=== PATIENT | female | born 1950 | race Caucasian/White ===

== ENCOUNTER 2016-06-13 | Outpatient (CLI) | payer MEDICARE, MEDICAID | END 2016-06-13 23:26 | disposition critical access hospital (66) | DX: R10.9 Unspecified abdominal pain (principal) | CPT/HCPCS: A0425; A0427 ==

== ENCOUNTER 2016-06-13 23:56 | Inpatient (IN) | payer MEDICARE, MEDICAID ==
[2016-06-14] MEDS ORDERED: HYDROmorphone 1 MG/ML SYRINGE IVP STA ×2 (00:27→05:38)
[2016-06-14] MEDS ORDERED: ONDANSETRON 4 MG/2 ML VIAL IVP STA (00:27)
[2016-06-14] MEDS ORDERED: SODIUM CHLORIDE 0.9% 1,000 ML IV ONE ×3 (00:27→16:00)
[2016-06-14] MEDS ORDERED: HYDROmorphone 1 MG/ML SYRINGE ONE ×2 (00:32→05:57)
[2016-06-14] MEDS ORDERED: ONDANSETRON 4 MG/2 ML VIAL ONE (00:32)
[2016-06-14] MEDS ORDERED: PIPERACILLIN/TAZOBACTAM 3.375 GM in SODIUM CHLORIDE 0.9% MINIBAG 100 ML IV STA (03:30)
[2016-06-14] MEDS ORDERED: HYDROmorphone 1 MG/ML SYRINGE IVP PRN ×2 (06:02→06:37)
[2016-06-14] MEDS ORDERED: SODIUM CHLORIDE FLUSH 0.9% 10 ML SYRINGE IVP PRN ×2 (06:02→06:37)
[2016-06-14] MEDS ORDERED: ONDANSETRON 4 MG/2 ML VIAL IVP PRN ×2 (06:02→06:37)
[2016-06-14] MEDS ORDERED: POTASSIUM CHLORIDE INJ 40 MEQ in SODIUM CHLORIDE 0.9% 480 ML IV ONE ×2 (06:29→07:00)
[2016-06-14] MEDS ORDERED: SODIUM CHLORIDE 0.9% 1,000 ML IV SCH (07:00)
[2016-06-14] MEDS ORDERED: PANTOPRAZOLE 40 MG VIAL IVP SCH (07:00)
[2016-06-14] MEDS ORDERED: risperiDONE 0.25 MG TABLET PO SCH (07:00)
[2016-06-14] MEDS ORDERED: risperiDONE 1 MG TABLET PO SCH (07:00)
[2016-06-14] MEDS ORDERED: PIPERACILLIN/TAZOBACTAM 3.375 GM in SODIUM CHLORIDE 0.9% MINIBAG 100 ML IV SCH ×4 (07:00)
[2016-06-14] MEDS ORDERED: LEVOTHYROXINE 25 MCG TABLET PO SCH ×2 (07:00→09:00)
[2016-06-14] MEDS: PANTOPRAZOLE 40 MG VIAL IVP SCH ×2 (07:37→17:49)
[2016-06-14] MEDS: SODIUM CHLORIDE 0.9% 1,000 ML IV SCH ×2 (07:37→12:54)
[2016-06-14] MEDS ORDERED: LITHIUM CARBONATE 450 MG PO SCH (09:00)
[2016-06-14] MEDS ORDERED: HEPARIN 5,000 UNIT/ML VIAL SUBQ SCH ×2 (09:00)
[2016-06-14] MEDS ORDERED: LITHIUM ER 300 MG TABLET PO SCH (09:00)
[2016-06-14] MEDS ORDERED: METOPROLOL SUCCINATE 50 MG TABLET PO SCH ×2 (09:00)
[2016-06-14] MEDS ORDERED: POLYETHYLENE GLYCOL 3350 17 GM PACKET PO SCH ×2 (09:00)
[2016-06-14] MEDS: POTASSIUM CHLOR 10 MEQ/100 ML 100 ML IV SCH ×4 (09:22→14:29)
[2016-06-14] MEDS: PIPERACILLIN/TAZOBACTAM 3.375 GM in SODIUM CHLORIDE 0.9% MINIBAG 100 ML IV SCH ×2 (11:07→17:28)
[2016-06-14] MEDS ORDERED: SODIUM CHLORIDE FLUSH 0.9% 10 ML SYRINGE IVP SCH ×2 (14:00)
[2016-06-14] MEDS ORDERED: MORPHINE ER 15 MG TABLET PO SCH ×2 (14:00)
[2016-06-14] MEDS ORDERED: POTASSIUM CHLOR 10 MEQ/100 ML 100 ML IV ONE (14:30)
[2016-06-14] MEDS ORDERED: VENLAFAXINE ER 75 MG CAPSULE PO SCH (21:00)
[2016-06-14] MEDS ORDERED: LITHIUM 150 MG CAPSULE PO SCH (22:00)
== END 2016-06-14 19:03 | disposition short-term general hospital (02) | DRG 871 ==
DX: A41.9 Sepsis, unspecified organism (principal); K80.00 Calculus of gallbladder with acute cholecystitis without obstruction; K85.10 Biliary acute pancreatitis without necrosis or infection; E78.00 Pure hypercholesterolemia, unspecified; J45.909 Unspecified asthma, uncomplicated; J44.9 Chronic obstructive pulmonary disease, unspecified; E11.9 Type 2 diabetes mellitus without complications; E03.9 Hypothyroidism, unspecified; K80.60 Calculus of gallbladder and bile duct with cholecystitis, unspecified, without obstruction; E87.6 Hypokalemia; I12.9 Hypertensive chronic kidney disease with stage 1 through stage 4 chronic kidney disease, or unspecified chronic kidney disease; N18.9 Chronic kidney disease, unspecified; Z79.899 Other long term (current) drug therapy; F31.9 Bipolar disorder, unspecified; R07.9 Chest pain, unspecified; Z86.718 Personal history of other venous thrombosis and embolism; G89.29 Other chronic pain; M54.9 Dorsalgia, unspecified; M19.90 Unspecified osteoarthritis, unspecified site; F17.200 Nicotine dependence, unspecified, uncomplicated; K21.9 Gastro-esophageal reflux disease without esophagitis; Z79.891 Long term (current) use of opiate analgesic; Z79.02 Long term (current) use of antithrombotics/antiplatelets

== ENCOUNTER 2016-06-14 | Outpatient (CLI) | payer MEDICARE, MEDICAID | END 2016-06-14 19:05 | disposition short-term general hospital (02) | CPT/HCPCS: A0425; A0426 ==

== ENCOUNTER 2016-07-01 | Outpatient (CLI) | payer MEDICARE, MEDICAID | END 2016-07-01 14:41 | disposition short-term general hospital (02) | DX: R53.1 Weakness (principal) | CPT/HCPCS: A0425; A0427 ==

== ENCOUNTER 2016-08-21 11:48 | Outpatient (CLI) | payer MEDICARE, MEDICAID | END 2016-08-21 23:59 | disposition short-term general hospital (02) | DX: R10.9 Unspecified abdominal pain (principal) | CPT/HCPCS: A0425; A0427 ==

== ENCOUNTER 2017-01-05 15:30 | Outpatient (CLI) | payer MEDICARE, MEDICAID ==
--- NOTE | 2017-01-06 10:03 | XRAY Report ---
FRONTAL PELVIS: 01/05/2017 CLINICAL INDICATION: Injury, pain. FINDINGS: Frontal view of the pelvis demonstrates no evidence of acute fracture. Postoperative gomez es are noted in the lower lumbar spine. Mild osteoarthritis of the hips is noted. IMPRESSION: MILD OSTEOARTHRITIS. NO EVIDENCE OF ACUTE FRACTURE. JOB #: [id number] EXT JOB #:[id number]
--- NOTE | 2017-01-06 10:11 | CT Report ---
CT BRAIN WITHOUT CONTRAST: 01/05/2017 CLINICAL INDICATION: Injury, pain. TECHNIQUE: Axial CT images of the brain were obtained without contrast. No previous CT is available for comparison. FINDINGS: The ventricles and sulci demonstrate mild symmetric enlargement, compatible with atrophy. The basilar cisterns are patent. There is no evidence of hemorrhage, mass effect, or midline shift. The visualized orbital contents and paranasal sinuses are unremarkable. IMPRESSION: MILD ATROPHY. NO EVIDENCE OF HEMORRHAGE OR MASS EFFECT. In accordance with CT protocol optimization, one or more of the following dose reduction techniques w ere utilized for this exam: automated exposure control, adjustment of mA and/or KV based on patient size, or use of iterative reconstructive technique. JOB #: [id number] EXT JOB #:[id number]
== END 2017-01-05 15:31 | disposition home or self-care (01) ==
LOC: DI 15:30
PROVIDERS: ATTEND Internal Medicine
DX: S09.90XA Unspecified injury of head, initial encounter (principal); R10.2 Pelvic and perineal pain
CPT/HCPCS: 70450; 72170

== ENCOUNTER 2017-01-15 11:58 | Outpatient (CLI) | payer MEDICARE, MEDICAID ==
--- NOTE | 2017-01-15 15:14 | CT Report ---
EXAM: BILATERAL HIP CT WITHOUT CONTRAST EXAM DATE: 01/15/2017 12:44 p.m. CLINICAL HISTORY: Fall with persistent pain in hips and sacral region. COMPARISON: Prior x-ray 01/05/2017. TECHNIQUE: Thin-section axial images were acquired of the hip without contrast. Post-processing: Heather nal and sagittal reformats. Other: None. In accordance with CT protocol optimization, one or more of the following dose reduction techniques w ere utilized for this exam: automated exposure control, adjustment of mA and/or KV based on patient s ize, or use of iterative reconstructive technique. FINDINGS: Bones: Moderate generalized osteopenia. No visible fracture. Prior fusion at L4-L5. The weight-bearing surfaces of both femoral heads appear sclerotic, with mild flattening and deformit y suggestive of avascular necrosis. Joints: Moderate bilateral sacroiliac joint osteoarthritis with mild bilateral hip osteoarthritis. Mo derate degenerative change of the pubic symphysis. Musculature: Normal. No fatty atrophy. Other: The bladder appears unremarkable. The uterus and ovaries also appear unremarkable. There are n umerous colonic diverticula. IMPRESSION: 1. 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 MRI is recommended for confirmati on. 2. Mild bilateral hip osteoarthritis. 3. Prior lumbar spine surgery. Moderate degenerative change of the sacroiliac joints. [facility] Referring Provider Line: [phone] SITE ID: [id number]
--- NOTE | 2017-01-15 15:30 | CT Report ---
CT OF FACIAL BONES WITHOUT CONTRAST: 01/15/2017 CLINICAL INDICATION: Fall, pain, tenderness. TECHNIQUE: Axial CT images of the facial bones were obtained without contrast, following which sagitt al and coronal reconstructions were performed. FINDINGS: There is mild mucosal thickening in the right maxillary sinus. The ostiomeatal units are p atent. There is no evidence of facial bone fracture. There is leftward deviation of the nasal septum. The visualized orbital contents are unremarkable. IMPRESSION: NO EVIDENCE OF FACIAL BONE FRACTURE. MILD CHRONIC SINUS DISEASE IN THE RIGHT MAXILLARY S INUS. In accordance with CT protocol optimization, one or more of the following dose reduction techniques w ere utilized for this exam: automated exposure control, adjustment of mA and/or KV based on patient size, or use of iterative reconstructive technique. JOB #: [id number] EXT JOB #:[id number]
--- NOTE | 2017-01-17 13:20 | CT Report ---
EXAM: CT LUMBAR SPINE WITHOUT CONTRAST EXAM DATE: 01/15/2017 12:43 PM. CLINICAL HISTORY: Fall with persistent pain in the hips and sacroiliac region. COMPARISONS: None. TECHNIQUE: Thin-section axial images were acquired of the lumbar spine from T12 to S1 without contras t. Post-processing: Coronal and sagittal reformats. Other: None. In accordance with CT protocol optimization, one or more of the following dose reduction techniques w ere utilized for this exam: automated exposure control, adjustment of mA and/or KV based on patient s ize, or use of iterative reconstructive technique. FINDINGS: Alignment: A minimal leftward thoracolumbar curvature is present. Bones: Five kqh-vqi-naswlar lumbar vertebral bodies are present. No fractures. The patient has had an anterior and posterior fusion procedure at L4-L5 with posterior rods, bilateral pedicle screws, and an intervertebral disk spacer. There is solid bony union through the disk space and the posterior liam ments. Disk Levels/Facets: T12-L1: Unremarkable. L1-L2: Unremarkable. L2-L3: Unremarkable. L3-L4: Small foraminal area protrusions and severe bilateral facet osteoarthritis result in mild bila teral foraminal narrowing. L4-L5: A right laminectomy has been performed. Posterior element bony hypertrophy has no neurologic c onsequence. L5-S1: Severe bilateral facet osteoarthritis has no neurologic consequence. Musculature: Normal. No fatty atrophy. Other: Arterial calcifications indicate atherosclerosis. Sigmoid diverticulosis is present. IMPRESSION: 1. Mild bilateral foraminal narrowing at L3-L4 due to disk and posterior element degenerative changes . 2. Fusion at L4-L5. [facility] Referring Provider Line: [phone] SITE ID: [id number]
== END 2017-01-15 11:59 | disposition home or self-care (01) ==
LOC: DI 11:58
PROVIDERS: ATTEND Internal Medicine
DX: J32.0 Chronic maxillary sinusitis (principal); M16.0 Bilateral primary osteoarthritis of hip; M51.26 Other intervertebral disc displacement, lumbar region; M47.9 Spondylosis, unspecified; Z98.1 Arthrodesis status
CPT/HCPCS: 70486; 72131; 73700

== ENCOUNTER 2017-03-10 19:19 | Outpatient (CLI) | payer MEDICARE, MEDICAID | END 2017-03-10 19:20 | disposition EMS.NT | LOC: EMS 19:19 | PROVIDERS: ATTEND Surgery | DX: Z03.89 Encounter for observation for other suspected diseases and conditions ruled out (principal) ==

== ENCOUNTER 2017-03-18 11:16 | Outpatient (CLI) | payer MEDICARE, MEDICAID ==
--- NOTE | 2017-03-18 17:42 | XRAY Report ---
THREE VIEW LEFT FOOT: 03/18/2017 CLINICAL INDICATION: Pain. AP, lateral, oblique views of the left foot demonstrate minimally displaced fractures of the distal 3 rd, 4th, and 5th metatarsals. Soft tissue swelling is present. Osteoarthritic changes are seen in t he interphalangeal joints and the 1st metatarsophalangeal joint. IMPRESSION: MINIMALLY DISPLACED FRACTURES OF THE DISTAL ENDS OF THE 3RD THROUGH 5TH METATARSALS. SO FT TISSUE SWELLING. JOB #: [id number] EXT JOB #:[id number]
== END 2017-03-18 11:17 | disposition home or self-care (01) ==
LOC: DI.S 11:16
PROVIDERS: ATTEND Internal Medicine
DX: S92.332A Displaced fracture of third metatarsal bone, left foot, initial encounter for closed fracture (principal); S92.342A Displaced fracture of fourth metatarsal bone, left foot, initial encounter for closed fracture; S92.352A Displaced fracture of fifth metatarsal bone, left foot, initial encounter for closed fracture

== ENCOUNTER 2017-05-14 12:52 | Outpatient (CLI) | payer MEDICARE, MEDICAID ==
[2017-05-14 18:36] LABS: HB2 TOTAL 13.1 g/dL; HEMOGLOBIN A1C 0.51 g/dL; HEMOGLOBIN A1C % 5.7 % (4.6-6.2)
== END 2017-05-14 12:53 | disposition home or self-care (01) ==
LOC: LAB.F 12:52
PROVIDERS: ATTEND Family Medicine
DX: E11.9 Type 2 diabetes mellitus without complications (principal)
CPT/HCPCS: 36415; 83036

== ENCOUNTER 2017-06-08 12:18 | Emergency (ER) | payer MEDICARE, MEDICAID ==
--- NOTE | 2017-06-08 12:45 | ED Physician Documentation ---
PD HPI LOWER EXT INJURY - Stated complaint Stated Complaint: L LEG PX/FLU SYMPTOMS - Chief complaint Chief Complaint: Ext Problem - History obtained from History obtained from: Patient - History of Present Illness PD HPI LOW EXT INJURY LOCATION: Left, Thigh Type of injury: No: Fall, Twist Where injury occurred: Home Timing - onset: How many weeks ago (she has had some pain and tenderness left medial thigh and around the knee for about 3 weeks. Had recent foot fracture and was in boot orthosis for a few weeks. Has been out of that for cople weeks and thought the thigh pain would go away as due to muscular cause with the boot. It is not improving. No chest pain nor dyspnea. She does feel generally weak as though she "has the flu" though no fevers, cough, URi symptoms.) Timing - details: Gradual onset, Still present, Waxing and waning Improved by: No: Rest Worsened by: Moving, Palpating Associated symptoms: No: Weakness, Numbness, Swelling, Discolored Contributing factors: No: Anticoagulated Similar symptoms before: Has not had sx before Review of Systems Constitutional: reports: Myalgias, Fatigue. denies: Fever, Chills Nose: denies: Rhinorrhea / runny nose, Congestion Throat: denies: Sore throat Cardiac: denies: Chest pain / pressure Respiratory: denies: Dyspnea, Cough GI: denies: Vomiting, Diarrhea, Bloody / black stool Neurologic: reports: Generalized weakness. 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 HEENT: Tonsil/Adenoidectomy - Present Medications Home Medications: Ambulatory Orders Medication Instructions Recorded Confirmed Levothyroxine Sodium [Synthroid] 25 mcg PO DAILY 10/06/12 06/14/16 Metoprolol Succinate [Toprol Xl] 50 mg PO DAILY 10/06/12 06/14/16 Morphine ER [Ms Contin] 30 mg PO Q8H 10/06/12 06/14/16 Morphine Ir [Ms Ir] 15 mg PO BID PRN 10/06/12 06/14/16 Niacin [Niaspan] 1,000 mg PO BID 10/06/12 06/14/16 Glimepiride 2 mg PO QDBREAKFAST 06/14/16 06/14/16 LORazepam [Lorazepam] 0.5 mg PO BID PRN 06/14/16 06/14/16 Wynot Carbonate [Wynot 450 mg PO DAILY 06/14/16 06/14/16 Carbonate ER] Omeprazole 20 mg PO QDAC 06/14/16 06/14/16 Venlafaxine HCl 75 mg PO BID 06/14/16 06/14/16 risperiDONE [Risperdal] 1 mg PO QPM 06/14/16 06/14/16 Naproxen 375 mg PO BID #10 tablet 06/08/17 Rivaroxaban [Xarelto] 15 mg PO BID #42 tablet 06/08/17 - Allergies Allergies/Adverse Reactions: Allergies Allergy/AdvReac Type Severity Reaction Status Date / Time NSAIDS (Non-Steroidal Allergy Mild Hives Verified 06/08/17 12:24 Anti-Inflamma Sulfa (Sulfonamide AdvReac Mild Rash Verified 06/08/17 12:24 Antibiotics) - Social History Does the pt smoke?: Yes Smoking Status: Current some day smoker Does the pt drink ETOH?: No Does the pt have substance abuse?: No - Immunizations Immunizations are current?: Yes Immunizations: TDAP >10years/unknown - POLST Patient has POLST: No PD ED PE NORMAL - Vitals Vital signs reviewed: Yes - General General: Alert and oriented X 3, No acute distress, Well developed/nourished - HEENT HEENT: Pharynx benign - Neck Neck: Supple, no meningeal sign, No adenopathy - Cardiac Cardiac: RRR, No murmur - Respiratory Respiratory: No respiratory distress, Clear bilaterally - Abdomen Abdomen: Soft, Non tender - Back Back: No CVA TTP - Derm Derm: Normal color, Warm and dry - Extremities Extremities: Normal ROM s pain, No edema, No calf tenderness / cord, Other ( left medial thigh tender without rash, redness, sores. Popliteal is also some tender. Calf is not tender and there is not any leg swelling. ) - Neuro Neuro: Alert and oriented X 3, No motor deficit, No sensory deficit, Normal speech (a little slow processing sentences but still coherent and appropriate. Consider med related. ) Results - Vitals Vitals: Oxygen O2 Source Room air - Labs Labs: Laboratory Tests 06/08/17 06/08/17 13:14 13:14 WBC 9.2 RBC 3.90 L Hgb 12.7 Hct 38.3 MCV 98.1 MCH 32.6 H MCHC 33.2 RDW 13.4 Plt Count 183 MPV 6.3 L Neut # 6.1 Lymph # 2.3 Hancock # 0.5 Eos # 0.3 Baso # 0.0 Absolute Nucleated RBC 0.00 Nucleated RBC % 0.0 Sodium 138 Potassium 4.1 Chloride 105 Carbon Dioxide 24 Anion Gap 9.0 BUN 14 Creatinine 1.9 H Estimated GFR (MDRD) 27 L Glucose 140 H Calcium 9.4 Total Bilirubin 0.4 AST 26 ALT 20 Alkaline Phosphatase 106 Total Protein 6.5 L Albumin 3.4 Globulin 3.1 Albumin/Globulin Ratio 1.1 Lipase 12 L - Rads (name of study) duplex left leg Radiology: Prelim report reviewed (DVT through left thigh. Lower leg normal. ) PD MEDICAL DECISION MAKING - ED course Complexity details: reviewed results (local DVT in thigh. Had recent foot fracture and had boot orthosis for few weeks, just done with it couple weeks ago. Given the provocation/reason for the DVT, I would think her anticoag duration would be limited to 3-6 months as is common, but defer to PCP. ), considered differential (consider DVT with tenderness along medial thigh. No calf tenderness nor swelling. Could be muscular as well. Get general labs regarding feeling of general weakness. No chest pain nor dyspnea. ), d/w patient Departure - Departure Disposition: 01 Home, Self Care Clinical Impression: Thigh DVT (deep venous thrombosis) Qualifiers: Chronicity: acute Laterality: left Qualified Code(s): I82.4Y2 - Acute embolism and thrombosis of unspecified deep veins of left proximal lower extremity Condition: Stable Record reviewed to determine appropriate education?: Yes Instructions: ED DVT Follow-Up: Fadi Bustos MD [Primary Care Provider] - Prescriptions: Naproxen 375 mg PO BID #10 tablet Rivaroxaban [Xarelto] 15 mg PO BID #42 tablet Comments: Warm towels to the sore area with the clot is a few times a day to help soften it. Continue usual medications. Add naproxen twice daily for just 5 days so it is not too long. Add Tylenol 4 times a day. To that add Xarelto blood thinner twice daily for the first 3 weeks. He will then be daily after that for likely 3 months. Follow-up with your primary care in about a week, call for an appointment. Discharge Date/Time: 06/08/17 16:01
[2017-06-08] MEDS ORDERED: ACETAMINOPHEN 325 MG TABLET PO STA (12:57)
[2017-06-08] MEDS ORDERED: ONDANSETRON ODT 4 MG TABLET TL STA (12:57)
[2017-06-08 13:22] LABS: BASOPHILS % (AUTO) 0.4 %; EOSINOPHILS # (AUTO) 0.3 10^3/uL (0.0-0.7); HGB - HEMOGLOBIN 12.7 g/dL (12.0-16.0); LYMPHOCYTES # (AUTO) 2.3 10^3/uL (1.5-3.5); LYMPHOCYTES % (AUTO) 25.5 %; MEAN CORPUSCULAR HEMOGLOBIN 32.6 pg (27.0-31.0); MEAN CORPUSCULAR HGB CONC 33.2 g/dL (32.0-36.0); MEAN CORPUSCULAR VOLUME 98.1 fL (81.0-99.0); MEAN PLATELET VOLUME 6.3 fL (7.9-10.8); MONOCYTES # (AUTO) 0.5 10^3/uL (0.0-1.0); MONOCYTES % (AUTO) 5.1 %; NEUTROPHILS # (AUTO) 6.1 10^3/uL (1.5-6.6); PLT - PLATELET COUNT 183 10^3/uL (130-450); RED CELL DISTRIBUTION WIDTH 13.4 % (12.0-15.0); WHITE BLOOD COUNT 9.2 x10^3/uL (4.8-10.8)
[2017-06-08 13:37] LABS: ALBUMIN 3.4 g/dL (3.2-5.5); ALBUMIN/GLOBULIN RATIO 1.1 (1.0-2.2); BILIRUBIN,TOTAL 0.4 mg/dL (0.2-1.0); CALCIUM 9.4 mg/dL (8.5-10.3); CREATININE 1.9 mg/dL (0.4-1.0); TOTAL PROTEIN 6.5 g/dL (6.7-8.2)
--- NOTE | 2017-06-08 14:33 | Ultrasound Report ---
EXAM: LEFT LOWER EXTREMITY VENOUS ULTRASOUND EXAM DATE: 06/08/2017 02:02 PM. CLINICAL HISTORY: History of deep venous thrombosis. Left thigh pain. COMPARISON: None. TECHNIQUE: Real-time sonographic vascular imaging was performed by the search marketing analyst through the lower extremity utilizing both color-flow and Doppler spectral analysis. Multiple financial service representative static eva ges were saved for review. FINDINGS: Common Femoral Vein (CFV): Normal. CFV-GSV Junction: Normal. Profunda Femoral Vein (PFV): Normal. Femoral Vein (FV) Prox: Normal. Femoral Vein (FV) Mid: Occlusive thrombus. Femoral Vein (FV) Dist: Partially occlusive thrombus. Popliteal Vein: Normal. Posterior Tibial Veins: Normal. Peroneal Veins: Normal. Contralateral Side CFV: Normal. Other: None. IMPRESSION: 1. There is occlusive thrombus within the left mid femoral vein. There is partially occlusive thrombu s within the distal femoral vein. 3. The left common femoral, profunda femoral, popliteal, and calf veins demonstrate no evidence of oc clusive thrombus. [facility] Referring Provider Line: [phone] SITE ID: [id number]
[2017-06-08 15:02] VITALS: BP 122/93
[2017-06-08] MEDS ORDERED: oxyCOD/ACETAMIN 5 MG/325 MG TABLET PO STA (15:24)
[2017-06-08] MEDS ORDERED: RIVAROXABAN 15 MG TABLET PO STA (15:24)
== END 2017-06-08 16:01 | disposition home or self-care (01) ==
LOC: ED 12:18
DX: I82.4Y2 Acute embolism and thrombosis of unspecified deep veins of left proximal lower extremity (principal); I10 Essential (primary) hypertension; E11.9 Type 2 diabetes mellitus without complications; E03.9 Hypothyroidism, unspecified; F17.200 Nicotine dependence, unspecified, uncomplicated; Z96.659 Presence of unspecified artificial knee joint; Z79.02 Long term (current) use of antithrombotics/antiplatelets
CPT/HCPCS: 36415; 80053; 83690; 85025; 93971; 99283; 99284; A9270; Q0162

== ENCOUNTER 2017-06-21 02:50 | Outpatient (CLI) | payer MEDICARE, MEDICAID | END 2017-06-21 02:51 | disposition critical access hospital (66) | LOC: EMS 02:50 | PROVIDERS: ATTEND Surgery | DX: R53.1 Weakness (principal); R41.82 Altered mental status, unspecified; R50.9 Fever, unspecified; W18.30XA Fall on same level, unspecified, initial encounter; Y92.002 Bathroom of unspecified non-institutional (private) residence as the place of occurrence of the external cause | CPT/HCPCS: A0425; A0427 ==

== ENCOUNTER 2017-06-21 03:25 | Emergency (ER) | payer MEDICARE, MEDICAID ==
[2017-06-21] MEDS ORDERED: SODIUM CHLORIDE 0.9% 1,000 ML IV ONE (03:45)
--- NOTE | 2017-06-21 03:47 | ED Physician Documentation ---
History of Present Illness - Stated complaint Stated Complaint: WEAKNESS/FALL - Chief complaint Chief Complaint: Neuro - History obtained from History obtained from: Patient, EMS - Additonal information Additional information: The patient is a 67-year-old female who arrives via ambulance after she fell while pulling up her underwear in her bathroom at home about 1 hour prior to arrival. She landed on her buttocks and back. She denies hitting her head or losing consciousness. Her called 911, and when the paramedics arrived they found the patient very drowsy, and unable to maintain upright posture. She has a history of chronic back pain, and review of her medical records reveals treatment with long-acting morphine. She currently denies headache, neck pain, chest pain, shortness of breath, nausea or vomiting. Review of her medical records reveals DVT left thigh, diagnosed here two weeks ago, for which she is treated with Xarelto. Review of Systems Constitutional: reports: Fatigue. denies: Fever Ears: denies: Tinnitus/ringing Nose: denies: Congestion Throat: denies: Sore throat Cardiac: denies: Chest pain / pressure Respiratory: denies: Dyspnea, Cough GI: denies: Abdominal Pain, Nausea, Vomiting : denies: Dysuria Skin: denies: Rash Musculoskeletal: reports: Back pain (Chronically) Neurologic: reports: Generalized weakness. 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 HEENT: Tonsil/Adenoidectomy - Present Medications Home Medications: Ambulatory Orders Medication Instructions Recorded Confirmed Levothyroxine Sodium [Synthroid] 25 mcg PO DAILY 10/06/12 06/14/16 Metoprolol Succinate [Toprol Xl] 50 mg PO DAILY 10/06/12 06/14/16 Morphine ER [Ms Contin] 30 mg PO Q8H 10/06/12 06/14/16 Morphine Ir [Ms Ir] 15 mg PO BID PRN 10/06/12 06/14/16 Niacin [Niaspan] 1,000 mg PO BID 10/06/12 06/14/16 Glimepiride 2 mg PO QDBREAKFAST 06/14/16 06/14/16 LORazepam [Lorazepam] 0.5 mg PO BID PRN 06/14/16 06/14/16 Hope Carbonate [Hope 450 mg PO DAILY 06/14/16 06/14/16 Carbonate ER] Omeprazole 20 mg PO QDAC 06/14/16 06/14/16 Venlafaxine HCl 75 mg PO BID 06/14/16 06/14/16 risperiDONE [Risperdal] 1 mg PO QPM 06/14/16 06/14/16 Naproxen 375 mg PO BID #10 tablet 06/08/17 Rivaroxaban [Xarelto] 15 mg PO BID #42 tablet 06/08/17 Nitrofurantoin [Macrobid] 100 mg PO BID #10 capsule 06/21/17 - Allergies Allergies/Adverse Reactions: Allergies Allergy/AdvReac Type Severity Reaction Status Date / Time NSAIDS (Non-Steroidal Allergy Mild Hives Verified 06/21/17 03:31 Anti-Inflamma Sulfa (Sulfonamide AdvReac Mild Rash Verified 06/21/17 03:31 Antibiotics) - Social History Does the pt smoke?: Yes Smoking Status: Current every day smoker Does the pt drink ETOH?: No Does the pt have substance abuse?: No - Immunizations Immunizations are current?: Yes Immunizations: TDAP >10years/unknown - POLST Patient has POLST: No PD ED PE NORMAL - Vitals Vital signs reviewed: Yes (Febrile at 38.1. Systolic hypertension, with blood pressure 174/78.) - General General: Well developed/nourished, Other (Awake but extremely drowsy female who responds to questions, but dozes off in mid sentence.) - HEENT HEENT: Atraumatic, EOMI, Moist mucous membranes, Pharynx benign, Other (Pupils 3 mm and reactive bilaterally.) - Neck Neck: Supple, no meningeal sign, No bony TTP, No adenopathy, No JVD - Cardiac Cardiac: RRR, No murmur - Respiratory Respiratory: No respiratory distress, Clear bilaterally - Abdomen Abdomen: Soft, Non tender - Back Back: No CVA TTP, No spinal TTP - Derm Derm: No rash - Extremities Extremities: No edema, No calf tenderness / cord - Neuro Neuro: Alert and oriented X 3, No motor deficit, Other (Extremely drowsy but arousable to voice, and responds to questions.) Eye Opening: Spontaneous Motor: Obeys Commands Verbal: Oriented GCS Score: 15 Results - Vitals Vitals: Vital Signs - 24 hr 06/21/17 06/21/17 06/21/17 03:25 05:53 09:48 Temperature 38.1 C H 37.8 C H Heart Rate 100 80 78 Respiratory 18 18 20 Rate Blood Pressure 174/78 H 147/79 H 138/84 H O2 Saturation 96 95 95 Oxygen O2 Source Room air - EKG (time done) 04:14 Rate: Rate (enter#) (95) Rhythm: NSR [place]: LAD Intervals: Normal MA QRS: Poor R wave progression Ischemia: Q waves (in leads II, III, and aVF, consistent with previous inferior CT.) Compare to prior EKG: Changed from prior EKG (Q's in II are new since prior tracing of 10/15/2013.) Computer interpretation: Agree with computer - Labs Labs: Microbiology 06/21/17 04:00 Urine Culture - Preliminary Urine,Catheterized CULTURE IN PROGRESS. RESULTS TO FOLLOW. Laboratory Tests 06/21/17 06/21/17 06/21/17 03:59 03:59 03:59 WBC 11.3 H RBC 3.43 L Hgb 10.8 L Hct 33.3 L MCV 97.0 MCH 31.4 H MCHC 32.4 RDW 14.1 Plt Count 181 MPV 6.7 L Neut # 10.0 H Lymph # 0.5 L [place] # 0.8 Eos # 0.0 Baso # 0.0 Absolute Nucleated RBC 0.01 Nucleated RBC % 0.0 Sodium 138 Potassium 3.8 Chloride 106 Carbon Dioxide 20 L Anion Gap 12.0 BUN 15 Creatinine 2.0 H Estimated GFR (MDRD) 25 L Glucose 143 H Lactic Acid 1.9 Calcium 8.9 Total Bilirubin 0.4 AST 63 H ALT 41 Alkaline Phosphatase 113 Total Protein 6.6 L Albumin 3.2 Globulin 3.4 Albumin/Globulin Ratio 0.9 L Lipase 24 Urine Color Urine Clarity Urine pH Ur Specific [place] Urine Protein Urine Glucose (UA) Urine Ketones Urine Occult Blood Urine Nitrite Urine Bilirubin Urine Urobilinogen Ur Leukocyte Esterase Urine RBC Urine WBC Ur Squamous Epith Cells Urine Bacteria Ur Microscopic Review Urine Culture Comments Last Dose Date Last Dose Time Urine Opiates Screen Ur Oxycodone Screen Urine Methadone Screen Ur Propoxyphene Screen Ur Barbiturates Screen Ur Tricyclics Screen Ur Phencyclidine Scrn Ur Amphetamine Screen U Methamphetamines Scrn U Benzodiazepines Scrn Hope Urine Cocaine Screen U Cannabinoids Screen 06/21/17 06/21/17 03:59 04:00 WBC RBC Hgb Hct MCV MCH MCHC RDW Plt Count MPV Neut # Lymph # [place] # Eos # Baso # Absolute Nucleated RBC Nucleated RBC % Sodium Potassium Chloride Carbon Dioxide Anion Gap BUN Creatinine Estimated GFR (MDRD) Glucose Lactic Acid Calcium Total Bilirubin AST ALT Alkaline Phosphatase Total Protein Albumin Globulin Albumin/Globulin Ratio Lipase Urine Color LT. YELLOW Urine Clarity HAZY Urine pH 6.0 Ur Specific [place] <=1.005 Urine Protein NEGATIVE Urine Glucose (UA) NEGATIVE Urine Ketones NEGATIVE Urine Occult Blood SMALL H Urine Nitrite POSITIVE H Urine Bilirubin NEGATIVE Urine Urobilinogen 0.2 (NORMAL) Ur Leukocyte Esterase NEGATIVE Urine RBC None Seen Urine WBC 0-3 Ur Squamous Epith Cells NONE SEEN Urine Bacteria Many H Ur Microscopic Review INDICATED Urine Culture Comments INDICATED Last Dose Date UNK Last Dose Time UNK Urine Opiates Screen POSITIVE H Ur Oxycodone Screen POSITIVE H Urine Methadone Screen NEGATIVE Ur Propoxyphene Screen NEGATIVE Ur Barbiturates Screen NEGATIVE Ur Tricyclics Screen NEGATIVE Ur Phencyclidine Scrn NEGATIVE Ur Amphetamine Screen NEGATIVE U Methamphetamines Scrn NEGATIVE U Benzodiazepines Scrn POSITIVE H Hope 0.80 Urine Cocaine Screen NEGATIVE U Cannabinoids Screen POSITIVE H - Rads (name of study) Head CT Radiology: Prelim report reviewed, EMP read contemporaneously, See rad report ( No acute intracranial process identified.) PD MEDICAL DECISION MAKING - ED course Complexity details: reviewed old records, reviewed results, re-evaluated patient , considered differential, d/w patient ED course: The patient's presentation is significant for somnolence caused by overmedication with long-acting morphine. No acute injury was found on physical examination. Because of her history of having fallen in her bathroom while on anticoagulant medication, Xarelto, a head CT was performed. It reveals no acute intracranial abnormalities. Laboratory workup reveals pyuria and bacteriuria, consistent with urinary tract infection. Her presentation does not suggest sepsis or pyelonephritis. Treatment in the emergency department included administration of normal saline 1 L IV, acetaminophen 650 mg orally, and nitrofurantoin 100 mg orally. She was observed and monitored in the emergency department for several hours, until she became more consistently alert, and demonstrated ability to ambulate with a steady gait, using her walker. She is being discharged with a prescription for nitrofurantoin. I discussed with her the importance of limiting her use of narcotic medication, antibiotic treatment for urinary tract infection, outpatient follow-up, as well as potentially worrisome signs or symptoms that should prompt reevaluation in the emergency department. Departure - Departure Disposition: Home, Self Care Clinical Impression: Opiate or related narcotic overdose Qualifiers: Encounter type: initial encounter Injury intent: accidental or unintentional Qualified Code(s): T40.601A - Poisoning by unspecified narcotics, accidental ( unintentional), initial encounter Chronic back pain Qualifiers: Back pain location: low back pain Back pain laterality: unspecified Sciatica presence: without sciatica Qualified Code(s): M54.5 - Low back pain UTI (urinary tract infection) Qualifiers: Urinary tract infection type: acute cystitis Hematuria presence: without hematuria Qualified Code(s): N30.00 - Acute cystitis without hematuria Condition: Stable Instructions: ED Overdose Accidental, ED UTI Cystitis Female Follow-Up: Fadi Bustos MD [Provider Admit Priv/Credential] - Prescriptions: Nitrofurantoin [Macrobid] 100 mg PO BID #10 capsule Comments: Take Macrobid twice daily as prescribed. Drink plenty of fluids, including cranberry juice. Refrain from taking excessive doses of morphine. Follow up with your primary physician within 1 week. Call to schedule appointment. Return to the emergency department if you develop increasing pain, persistent vomiting, fever with shaking chills, or otherwise worsening symptoms. Discharge Date/Time: 06/21/17 09:48
[2017-06-21] MEDS ORDERED: ACETAMINOPHEN 325 MG TABLET PO STA (03:54)
[2017-06-21 04:08] LABS: MUDS CUTOFF CONCENTRATIONS CUTOFF CONC BELOW:
[2017-06-21 04:11] LABS: BILIRUBIN,URINE NEGATIVE (NEGATIVE); CLARITY,URINE HAZY (CLEAR); GLUCOSE, URINE (UA) NEGATIVE (NEGATIVE); KETONES,URINE (UA) NEGATIVE (NEGATIVE); LEUKOCYTE ESTERASE, URINE NEGATIVE (NEGATIVE); NITRITE,URINE POSITIVE (NEGATIVE); OCCULT BLOOD,URINE SMALL (NEGATIVE); PROTEIN,URINE NEGATIVE (NEGATIVE); UROBILINOGEN,URINE 0.2 (NORMAL) E.U./dL (NORMAL)
[2017-06-21 04:13] LABS: BASOPHILS % (AUTO) 0.3 %; HGB - HEMOGLOBIN 10.8 g/dL (12.0-16.0); LYMPHOCYTES # (AUTO) 0.5 10^3/uL (1.5-3.5); LYMPHOCYTES % (AUTO) 4.6 %; MEAN CORPUSCULAR HEMOGLOBIN 31.4 pg (27.0-31.0); MEAN CORPUSCULAR HGB CONC 32.4 g/dL (32.0-36.0); MEAN PLATELET VOLUME 6.7 fL (7.9-10.8); MONOCYTES # (AUTO) 0.8 10^3/uL (0.0-1.0); MONOCYTES % (AUTO) 7.2 %; NEUTROPHILS % (AUTO) 87.9 %; PLT - PLATELET COUNT 181 10^3/uL (130-450); RED BLOOD COUNT 3.43 10^6/uL (4.20-5.40); RED CELL DISTRIBUTION WIDTH 14.1 % (12.0-15.0); WHITE BLOOD COUNT 11.3 x10^3/uL (4.8-10.8)
[2017-06-21 04:23] LABS: ALBUMIN 3.2 g/dL (3.2-5.5); ALBUMIN/GLOBULIN RATIO 0.9 (1.0-2.2); BILIRUBIN,TOTAL 0.4 mg/dL (0.2-1.0); CALCIUM 8.9 mg/dL (8.5-10.3); TOTAL PROTEIN 6.6 g/dL (6.7-8.2)
[2017-06-21 04:24] LABS: AMPHETAMINE SCREEN,URINE NEGATIVE (NEGATIVE); BACTERIA,URINE Many /HPF (None Seen); BENZODIAZEPINES SCREEN, URINE POSITIVE (NEGATIVE); COCAINE SCREEN URINE NEGATIVE (NEGATIVE); METHAMPHETAMINES SCREEN, URINE NEGATIVE (NEGATIVE); OPIATE SCREEN, URINE POSITIVE (NEGATIVE); RBC,URINE None Seen /HPF (0-5); SQUAMOUS EPITHELIAL CELL,UR NONE SEEN (<= Few)
[2017-06-21 04:25] LABS: METHADONE SCREEN, URINE NEGATIVE (NEGATIVE); OXYCODONE SCREEN, URINE POSITIVE (NEGATIVE); PROPOXYPHENE SCREEN, URINE NEGATIVE (NEGATIVE); TRICYCLIC ANTIDEPRESSANT,URINE NEGATIVE (NEGATIVE)
--- NOTE | 2017-06-21 05:03 | CT Report ---
EXAM: CT HEAD EXAM DATE: 06/21/2017 04:31 AM. CLINICAL HISTORY: Drowsiness after falling. On Xarelto. COMPARISON: Head CT 01/05/2017. TECHNIQUE: Multiaxial CT images were obtained from the foramen magnum to the vertex. Reformats: Coron al. IV contrast: None. In accordance with CT protocol optimization, one or more of the following dose reduction techniques w ere utilized for this exam: automated exposure control, adjustment of mA and/or KV based on patient s ize, or use of iterative reconstructive technique. FINDINGS: Parenchyma: No intraparenchymal hemorrhage. No evidence of mass, midline shift, or CT findings of inf arction. Cam-white differentiation is distinct. Moderately extensive nonspecific white matter change , likely small vessel ischemia, the appearance is stable. Extraaxial Spaces: Normal for age. No subdural or epidural collections identified. Ventricles: Normal in size and position. Sinuses and Orbits: Imaged paranasal sinuses, orbits, and mastoids show no significant abnormality. Bones: No evidence of fracture or calvarial defect. Other: No change since the prior study. IMPRESSION: No acute intracranial process identified. Stable finding since 01/05/2017. [facility] Referring Provider Line: [phone] SITE ID: [id number]
[2017-06-21] MEDS ORDERED: NITROFURANTOIN MACRO 100 MG CAPSULE PO STA (07:46)
[2017-06-21 09:49] VITALS: BP 138/84
== END 2017-06-21 09:48 | disposition home or self-care (01) ==
LOC: EDUNIT# → ED 03:25 → SUPCPDRO 03:25 → ED 09:48
DX: T40.2X1A Poisoning by other opioids, accidental (unintentional), initial encounter (principal); Y92.009 Unspecified place in unspecified non-institutional (private) residence as the place of occurrence of the external cause; M54.5 Low back pain; N30.00 Acute cystitis without hematuria; I10 Essential (primary) hypertension; E78.00 Pure hypercholesterolemia, unspecified; E11.9 Type 2 diabetes mellitus without complications; E03.9 Hypothyroidism, unspecified; F17.200 Nicotine dependence, unspecified, uncomplicated; Z96.653 Presence of artificial knee joint, bilateral; Z98.1 Arthrodesis status; Z86.718 Personal history of other venous thrombosis and embolism; Z91.81 History of falling
CPT/HCPCS: 36415; 51701; 70450; 80053; 80178; 80306; 81001; 83605; 83690; 85025; 87086; 87181; 93005; 96360; 96361; 99284; A9270; 81003

== ENCOUNTER 2017-07-05 10:32 | Outpatient (CLI) | payer MEDICARE, MEDICAID ==
--- NOTE | 2017-07-05 13:00 | XRAY Report ---
TWO VIEW CHEST: 07/05/2017 CLINICAL INDICATION: Cough, congestion. COMPARISON: 03/02/2015. FINDINGS: Frontal and lateral views of the chest demonstrate a normal cardiac silhouette. The lungs are clear. No effusion or pneumothorax is present. IMPRESSION: NORMAL CHEST. NO EVIDENCE OF ACUTE CARDIOPULMONARY DISEASE. TD: 07/05/2017 12:59
== END 2017-07-05 10:33 | disposition home or self-care (01) ==
LOC: DI.S 10:32
PROVIDERS: ATTEND Nurse Practitioner Family
DX: R05 Cough (principal)
CPT/HCPCS: 71046

== ENCOUNTER 2017-07-15 10:22 | Outpatient (CLI) | payer MEDICARE, MEDICAID | END 2017-07-15 10:23 | disposition short-term general hospital (02) | LOC: EMS 10:22 | PROVIDERS: ATTEND Surgery | DX: R11.2 Nausea with vomiting, unspecified (principal); R10.9 Unspecified abdominal pain | CPT/HCPCS: A0170; A0425; A0429 ==

== ENCOUNTER 2017-09-13 10:41 | Outpatient (CLI) | payer MEDICARE, MEDICAID ==
--- NOTE | 2017-09-13 11:30 | XRAY Report ---
SUPINE ABDOMEN: 09/13/2017 CLINICAL INDICATION: Constipation. FINDINGS: Supine views of the abdomen demonstrate no small bowel dilatation. Moderate volume of stool is seen throughout the colon. Postoperative changes are seen in right upper quadrant and lumbar spine. IMPRESSION: NO EVIDENCE OF BOWEL OBSTRUCTION. TD: 09/13/2017 11:28
== END 2017-09-13 10:42 | disposition home or self-care (01) ==
LOC: DI.S 10:41
PROVIDERS: ATTEND Nurse Practitioner Family
DX: K59.00 Constipation, unspecified (principal)
CPT/HCPCS: 74018

== ENCOUNTER 2017-09-28 10:47 | Outpatient (CLI) | payer MEDICARE, MEDICAID ==
--- NOTE | 2017-09-28 15:20 | XRAY Report ---
SUPINE ABDOMEN: 09/28/2017 CLINICAL INDICATION: Constipation pain. COMPARISON: 09/13/2017. FINDINGS: Supine views of the abdomen demonstrate postoperative changes of cholecystectomy and lumbar spine fusion. No small bowel dilatation is present. There has been no significant interval change. IMPRESSION: NO EVIDENCE OF BOWEL OBSTRUCTION. STABLE POSTOPERATIVE CHANGES. TD: 09/28/2017 15:13
== END 2017-09-28 10:48 | disposition home or self-care (01) ==
LOC: DI.S 10:47
PROVIDERS: ATTEND Physician Assistant
DX: K59.00 Constipation, unspecified (principal); R10.9 Unspecified abdominal pain
CPT/HCPCS: 74018

== ENCOUNTER 2017-12-10 15:35 | Outpatient (CLI) | payer MEDICARE, MEDICAID ==
--- NOTE | 2017-12-10 17:50 | Ultrasound Report ---
Procedure Date: 12/10/2017 Accession Number: [id number] / [id number] Procedure: US - Duplex Ext Veins Bilateral CPT Code: FULL RESULT: EXAM: BILATERAL LOWER EXTREMITY VENOUS ULTRASOUND EXAM DATE: 12/10/2017 04:44 PM. CLINICAL HISTORY: BL THIGH PAIN HX OF DVT. COMPARISON: Left lower extremity Doppler ultrasound dated 06/08/2017. TECHNIQUE: Real-time sonographic vascular imaging was performed by the spiral tube winder helper through the lower extremities utilizing both color-flow and Doppler spectral analysis. Multiple it sales representative static images were saved for review. FINDINGS: Right: Common Femoral Vein (CFV): Normal. CFV-GSV Junction: Normal. Greater saphenous vein: Occlusive thrombus. Profunda Femoral Vein (PFV): Normal. Femoral Vein (FV) Prox: Normal. Femoral Vein (FV) Mid: Normal. Femoral Vein (FV) Dist: Normal. Popliteal Vein: Normal. Posterior Tibial Veins: Normal. Peroneal Veins: Normal. Left: Common Femoral Vein (CFV): Normal. CFV-GSV Junction: Normal. Profunda Femoral Vein (PFV): Normal. Femoral Vein (FV) Prox: Normal. Femoral Vein (FV) Mid: Nonocclusive thrombus. Femoral Vein (FV) Dist: Nonocclusive thrombus. Popliteal Vein: Normal. Posterior Tibial Veins: Normal. Peroneal Veins: Normal. Other: None. IMPRESSION: 1. There is occlusive thrombus in the right greater saphenous vein. 2. Persistent nonocclusive thrombus in the left femoral vein mid to distal, similar to the prior examination. Findings discussed immediately with Dr. Simmons by phone on 12/10/2017 at 5:47 PM ROGE
== END 2017-12-10 15:36 | disposition home or self-care (01) ==
LOC: DI 15:35
PROVIDERS: ATTEND Nurse Practitioner Family
DX: I82.811 Embolism and thrombosis of superficial veins of right lower extremity (principal); I82.412 Acute embolism and thrombosis of left femoral vein; Z86.718 Personal history of other venous thrombosis and embolism
CPT/HCPCS: 93970

== ENCOUNTER 2018-01-12 12:54 | Outpatient (CLI) | payer MEDICARE, MEDICAID | END 2018-01-12 12:55 | disposition critical access hospital (66) | LOC: EMS 12:54 | PROVIDERS: ATTEND Surgery | DX: M54.5 Low back pain (principal) | CPT/HCPCS: A0425; A0429 ==

== ENCOUNTER 2018-01-12 13:32 | Emergency (ER) | payer MEDICARE, MEDICAID ==
[2018-01-12] MEDS ORDERED: DEXAMETHASONE 10 MG/ML VIAL IM STA (13:46)
[2018-01-12] MEDS ORDERED: HYDROmorphone 1 MG/ML CARPUJECT IM STA (13:46)
--- NOTE | 2018-01-12 13:48 | ED Physician Documentation ---
PD HPI BACK PAIN - Stated complaint Stated Complaint: BACK PX - History obtained from History obtained from: Patient - History of Present Illness Timing - onset: Other (67-year-old woman on MS Contin and oxycodone for chronic low back pain. Multiple surgeries in the past. Without recent injury she has had an increase in low back pain radiating down both legs over the last week. Today she has too much pain to walk. She tried getting in with her doctor but now she is in too much pain. She denies saddle anesthesia, weakness, numbness, or tingling. No incontinence. No fevers.) Review of Systems Constitutional: denies: Fever, Chills Cardiac: reports: Reviewed and negative Respiratory: reports: Reviewed and negative : reports: Reviewed and negative Skin: reports: Reviewed and negative PD PAST MEDICAL HISTORY - Past Medical History Cardiovascular: Hypertension, High cholesterol, Deep vein thrombosis Respiratory: Asthma, COPD, Shortness of breath Endocrine/Autoimmune: Type 2 diabetes, HyPOthyroidism GI: GERD : Incontinence HEENT: None Psych: Depression, Bipolar disorder Musculoskeletal: Osteoarthritis, Chronic back pain Derm: None - Past Surgical History Past Surgical History: Yes General: EGD, Colonoscopy Ortho: Knee replacement (Bilaterally), Spine surgery (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 fusion) /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 HEENT: Tonsil/Adenoidectomy - Present Medications Home Medications: Ambulatory Orders Medication Instructions Recorded Confirmed Levothyroxine Sodium [Synthroid] 25 mcg PO DAILY 10/06/12 06/14/16 Metoprolol Succinate [Toprol Xl] 50 mg PO DAILY 10/06/12 06/14/16 Morphine ER [Ms Contin] 30 mg PO Q8H 10/06/12 06/14/16 Morphine Ir [Ms Ir] 15 mg PO BID PRN 10/06/12 06/14/16 Niacin [Niaspan] 1,000 mg PO BID 10/06/12 06/14/16 Glimepiride 2 mg PO QDBREAKFAST 06/14/16 06/14/16 LORazepam [Lorazepam] 0.5 mg PO BID PRN 06/14/16 06/14/16 Artois Carbonate [Artois 450 mg PO DAILY 06/14/16 06/14/16 Carbonate ER] Omeprazole 20 mg PO QDAC 06/14/16 06/14/16 Venlafaxine HCl 75 mg PO BID 06/14/16 06/14/16 risperiDONE [Risperdal] 1 mg PO QPM 06/14/16 06/14/16 Naproxen 375 mg PO BID #10 tablet 06/08/17 Rivaroxaban [Xarelto] 15 mg PO BID #42 tablet 06/08/17 Nitrofurantoin [Macrobid] 100 mg PO BID #10 capsule 06/21/17 predniSONE [Deltasone] 20 mg PO [id number] #[id number] tab 01/12/18 - Allergies Allergies/Adverse Reactions: Allergies Allergy/AdvReac Type Severity Reaction Status Date / Time NSAIDS (Non-Steroidal Allergy Mild Hives Verified 01/12/18 13:51 Anti-Inflamma Sulfa (Sulfonamide AdvReac Mild Rash Verified 01/12/18 13:51 Antibiotics) - Social History Does the pt smoke?: Yes Smoking Status: Current every day smoker Does the pt drink ETOH?: No Does the pt have substance abuse?: No - Immunizations Immunizations are current?: Yes Immunizations: TDAP >10years/unknown - POLST Patient has POLST: No PD ED PE NORMAL - Vitals Vital signs reviewed: Yes - General General: Alert and oriented X 3, No acute distress - Abdomen Abdomen: Normal bowel sounds, Soft, Non tender - Back Back: Other (She is tender over the upper lumbar spine and paralumbar spinous muscles. She is equal patellar and Achilles reflexes bilaterally. She has diminished sensation on the lateral side of the calf on the right below the knee.) - Derm Derm: Normal color, Warm and dry - Extremities Extremities: No edema, No calf tenderness / cord - Neuro Neuro: Alert and oriented X 3, Normal speech Results - Vitals Vitals: Vital Signs - 24 hr 01/12/18 13:48 Temperature 37.0 C Heart Rate 68 Respiratory 16 Rate Blood Pressure 141/61 H O2 Saturation 97 Oxygen O2 Source Room air - Labs Labs: Laboratory Tests 01/12/18 01/12/18 13:15 13:15 WBC 6.7 RBC 3.74 L Hgb 12.4 Hct 36.8 L MCV 98.4 MCH 33.2 H MCHC 33.7 RDW 14.3 Plt Count 218 MPV 7.3 L Neut # (Auto) 4.2 Lymph # (Auto) 1.7 Love # (Auto) 0.5 Eos # (Auto) 0.2 Baso # (Auto) 0.0 Absolute Nucleated RBC 0.00 Nucleated RBC % 0.0 Sodium 140 Potassium 4.6 Chloride 107 Carbon Dioxide 25 Anion Gap 8.0 BUN 17 Creatinine 1.9 H Estimated GFR (MDRD) 27 L Glucose 104 H Calcium 9.8 Total Bilirubin 0.4 AST 22 ALT 17 Alkaline Phosphatase 101 Total Protein 6.6 L Albumin 3.4 Globulin 3.2 Albumin/Globulin Ratio 1.1 Lipase 31 PD MEDICAL DECISION MAKING - ED course ED course: After an injection of Dilaudid and Decadron she was feeling much better and had regained her range of motion. The patient has no "red flags." Specifically denies IV drug use, fevers, incontinence, saddle anesthesia. Spinal epidural abscess was considered, given that the patient has no fever, is not diabetic, has no spinal tenderness, does not use IV drugs, and has no bilateral neurologic symptoms, the diagnosis of spinal epidural abscess is considered exceedingly unlikely. - Sepsis Event Vital Signs: Vital Signs - 24 hr 01/12/18 13:48 Temperature 37.0 C Heart Rate 68 Respiratory 16 Rate Blood Pressure 141/61 H O2 Saturation 97 Oxygen O2 Source Room air Departure - Departure Disposition: Home, Self Care Clinical Impression: Back pain Qualifiers: Back pain location: low back pain Chronicity: chronic Back pain laterality: bilateral Sciatica presence: with sciatica Sciatica laterality: bilateral sciatica Qualified Code(s): M54.42 - Lumbago with sciatica, left side Condition: Good Record reviewed to determine appropriate education?: Yes Instructions: ED Neck Back Pain General Prescriptions: predniSONE [Deltasone] 20 mg PO [id number] #21 tab Comments: Call your doctor to arrange a follow-up appointment, make the next available appointment. In the interim, return anytime if worse or if new symptoms develop. Your blood pressure was elevated today on check into the emergency department. This does not mean that you have hypertension, it is a common phenomenon to come to the emergency department and have elevated blood pressure. I recommend that you see your primary care physician within the week to have it rechecked when you are feeling better.
[2018-01-12 14:34] LABS: BASOPHILS % (AUTO) 0.2 %; EOSINOPHILS # (AUTO) 0.2 10^3/uL (0.0-0.7); EOSINOPHILS % (AUTO) 3.6 %; HGB - HEMOGLOBIN 12.4 g/dL (12.0-16.0); LYMPHOCYTES # (AUTO) 1.7 10^3/uL (1.5-3.5); LYMPHOCYTES % (AUTO) 25.9 %; MEAN CORPUSCULAR HEMOGLOBIN 33.2 pg (27.0-31.0); MEAN CORPUSCULAR HGB CONC 33.7 g/dL (32.0-36.0); MEAN CORPUSCULAR VOLUME 98.4 fL (81.0-99.0); MEAN PLATELET VOLUME 7.3 fL (7.9-10.8); MONOCYTES # (AUTO) 0.5 10^3/uL (0.0-1.0); MONOCYTES % (AUTO) 7.4 %; NEUTROPHILS # (AUTO) 4.2 10^3/uL (1.5-6.6); NEUTROPHILS % (AUTO) 62.9 %; PLT - PLATELET COUNT 218 10^3/uL (130-450); RED BLOOD COUNT 3.74 10^6/uL (4.20-5.40); RED CELL DISTRIBUTION WIDTH 14.3 % (12.0-15.0); WHITE BLOOD COUNT 6.7 x10^3/uL (4.8-10.8)
[2018-01-12 14:51] LABS: ALBUMIN 3.4 g/dL (3.2-5.5); ALBUMIN/GLOBULIN RATIO 1.1 (1.0-2.2); BILIRUBIN,TOTAL 0.4 mg/dL (0.2-1.0); CALCIUM 9.8 mg/dL (8.5-10.3); CREATININE 1.9 mg/dL (0.4-1.0); TOTAL PROTEIN 6.6 g/dL (6.7-8.2)
[2018-01-12 15:03] LABS: LITHIUM 0.71 mmol/L
[2018-01-12 15:22] VITALS: BP 136/86
== END 2018-01-12 15:22 | disposition home or self-care (01) ==
LOC: ED 13:32
DX: M54.42 Lumbago with sciatica, left side (principal); I10 Essential (primary) hypertension; E78.00 Pure hypercholesterolemia, unspecified; E03.9 Hypothyroidism, unspecified; E11.9 Type 2 diabetes mellitus without complications; Z86.718 Personal history of other venous thrombosis and embolism; Z96.653 Presence of artificial knee joint, bilateral
CPT/HCPCS: 36415; 80053; 80178; 83690; 85025; 96372; 99283; J1170

== ENCOUNTER 2018-02-16 10:45 | Outpatient (CLI) | payer MEDICARE, MEDICAID ==
--- NOTE | 2018-02-16 17:08 | XRAY Report ---
Reason: PAIN IN BOTH LEGS AND SCIATIC PAIN X 1 MONTH Procedure Date: 02/16/2018 Accession Number: [id number] / [id number] Procedure: XR - Lumbar Spine 2 View CPT Code: FULL RESULT: EXAM: LUMBOSACRAL SPINE RADIOGRAPHY EXAM DATE: 02/16/2018 11:36 AM. CLINICAL HISTORY: PAIN IN BOTH LEGS AND SCIATIC PAIN X 1 MONTH. COMPARISONS: No prior lumbar spine x-ray for comparison; lumbar spine CT on 01/15/2017. TECHNIQUE: 3 views. FINDINGS: Alignment: No spondylolisthesis or scoliosis. Bones: Five [id number] lumbar vertebral bodies are present. No fractures or bone lesions. Disks: Status post posterior spinal fusion with bilateral pedicle screws and disk fusion in the L4-L5, unremarkable. There is mild to moderate generative disk disease at the L3-L4. Facets: No degenerative changes. Sacroiliac Joints: Unremarkable. Soft Tissues: There is diffuse mild and heterogeneous calcified wall of the abdominal aorta. The visualized bowel gas pattern is normal. Status post cholecystectomy is noted. IMPRESSION: 1. Unremarkable status post posterior spinal fusion at the L4-L5. 2. Mild to moderate degenerative disk disease at L3-L4. [facility]
--- NOTE | 2018-02-17 15:20 | XRAY Report ---
Reason: PAIN IN BOTH LEGS AND SCIATIC PAIN X 1 MONTH Procedure Date: 02/16/2018 Accession Number: [id number] / [id number] Procedure: XR - Sacrum/Coccyx CPT Code: FULL RESULT: EXAM: SACRUM AND COCCYX RADIOGRAPHY EXAM DATE: 02/16/2018 11:36 AM. HISTORY: PAIN IN BOTH LEGS AND SCIATIC PAIN X 1 MONTH. COMPARISONS: None. TECHNIQUE: 2 views. FINDINGS: Lower lumbar hardware is incompletely imaged. Intervertebral cage at L4-L5 is noted. Alignment: Normal. The sacrum and coccyx are normally aligned. Bones: No fracture or bone lesion. Joints: The sacroiliac joints and visualized hips are within normal limits. Soft Tissues: Unremarkable. IMPRESSION: Negative sacrum and coccyx evaluation. [facility]
== END 2018-02-16 10:46 | disposition home or self-care (01) ==
LOC: DI 10:45
PROVIDERS: ATTEND Nurse Practitioner Family
DX: M51.36 Other intervertebral disc degeneration, lumbar region (principal); Z98.1 Arthrodesis status
CPT/HCPCS: 72100; 72220

== ENCOUNTER 2018-07-25 11:41 | Outpatient (CLI) | payer MEDICARE, MEDICAID ==
[2018-07-25 12:20] LABS: CREATININE 1.6 mg/dL (0.4-1.0)
--- NOTE | 2018-07-25 15:02 | MRI Report ---
Reason: CHRONIC LOW BACK PAIN Procedure Date: 07/25/2018 Accession Number: [id number] / [id number] Procedure: MRI - Lumbar Spine W/WO CPT Code: FULL RESULT: EXAM: MRI LUMBAR SPINE WITHOUT AND WITH CONTRAST. EXAM DATE: 07/25/2018 01:13 PM. CLINICAL HISTORY: Chronic low back pain. Previous lumbar spine fusion. COMPARISONS: CT of the lumbar spine 01/15/2017. TECHNIQUE: Multiplanar, multisequence T1-weighted and fluid-sensitive sequences of the lumbar spine from T12 to S1 before and after administration of intravenous contrast. Other: None. IV contrast: None. FINDINGS: Neurologic Structures: The conus terminates at L1-L2. Unremarkable appearance of the conus medullaris. Alignment: Interval development of 3.5 mm degenerative L3 on L4 anterolisthesis. Bone Marrow: Five [id number] lumbar vertebral bodies are assumed. No acute marrow edema. Chronic appearing degenerative disk disease and facet arthropathy partially visualized in the sagittal plane in the lower thoracic spine. There is no significant lower thoracic central stenosis or cord compression. Mild to moderate chronic appearing bilateral foraminal stenosis is suggested at the T9-T10 and T10-T11 levels. Disk Levels/Facets: T12-L1: Unremarkable. L1-L2: Unremarkable. L2-L3: Mild degenerative changes but no stenosis. L3-L4: Moderate to severe and progressive degenerative disk disease with facet arthropathy, ligamentum flavum thickening and prominent circumferential disk bulge with marginal spurring that extends laterally into both foramina. There appears to be significantly progressive stenosis from a combination of progressive degenerative changes and abnormal alignment creating moderate to severe stenosis of the central canal and lateral recesses. Foraminal stenosis is at least moderate bilaterally. L4-L5: Solidly fused vertebra. No developing stenosis. Susceptibility artifact from implanted fusion hardware. L5-S1: Moderate facet arthropathy. No significant stenosis or disk herniation. Spinal Canal: No enhancing masses within the spinal canal. No epidural abscess. Musculature: Mild diffuse fatty atrophy. Other: Innumerable small bilateral renal cysts appear to be present. IMPRESSION: The most significant findings are at the L3-L4 level where there is marked progression of degenerative changes, increased stenosis and degenerative anterolisthesis at L3 on L4. Comment: The following findings are so common in adults without low back pain that while we report their presence, they must be interpreted with caution and in the context of the clinical situation. (Reference Jaylene et al, Spine 2001) Prevalence of findings in patients without low back pain: Disk degeneration (any evidence): 92% Disk desiccation/T2 signal loss: 83% Disk height loss: 56% Disk bulge: 64% Disk protrusion: 32% Annular tear/high intensity zone: 38% RADIA
== END 2018-07-25 11:42 | disposition home or self-care (01) ==
LOC: LAB 11:41 → DI 11:42
PROVIDERS: ATTEND Family Medicine
DX: M47.9 Spondylosis, unspecified (principal); M51.36 Other intervertebral disc degeneration, lumbar region; M48.061 Spinal stenosis, lumbar region without neurogenic claudication; M43.16 Spondylolisthesis, lumbar region; I10 Essential (primary) hypertension
CPT/HCPCS: 72148; 82565

== ENCOUNTER 2018-08-10 10:40 | Outpatient (CLI) | payer MEDICARE, MEDICAID | END 2018-08-10 10:41 | disposition critical access hospital (66) | LOC: EMS 10:40 | PROVIDERS: ATTEND Surgery | DX: R41.82 Altered mental status, unspecified (principal) | CPT/HCPCS: A0425; A0427 ==

== ENCOUNTER 2018-08-10 11:17 | Inpatient (IN) | payer MEDICARE, MEDICAID ==
--- NOTE | 2018-08-10 11:31 | ED Physician Documentation ---
History of Present Illness - Stated complaint Stated Complaint: LOW BLOOD SUGAR - History obtained from History obtained from: Patient, EMS - History of Present Illness Timing: Today Pain level max: 0 Pain level now: 0 Improved by: [email or web address] Worsened by: nothing - Additonal information Additional information: 68-year-old female, type II diabetic presents with hypoglycemia today. Blood sugar was 17 in the field, given D50 with EMS and increased to 72, now back down to 34. She does take a once a week injection for her diabetes, this was later found to be Trulicity. She is also on glimepiride 2 mg by mouth daily. Review of Systems Ten Systems: 10 systems reviewed and negative Constitutional: denies: Fever, Chills Ears: denies: Ear pain Nose: denies: Rhinorrhea / runny nose, Congestion Throat: denies: Sore throat Cardiac: denies: Chest pain / pressure Respiratory: denies: Cough GI: denies: Nausea, Vomiting, Diarrhea Skin: denies: Rash Musculoskeletal: denies: Neck pain, Back pain Neurologic: denies: Headache PD PAST MEDICAL HISTORY - Past Medical History Cardiovascular: Hypertension, High cholesterol, Deep vein thrombosis Respiratory: Asthma, COPD, Shortness of breath Endocrine/Autoimmune: Type 2 diabetes, HyPOthyroidism GI: GERD : Incontinence HEENT: None Psych: Depression, Bipolar disorder Musculoskeletal: Osteoarthritis, Chronic back pain Derm: None - Past Surgical History Past Surgical History: Yes General: EGD, Colonoscopy Ortho: Knee replacement (Bilaterally), Spine surgery (Lumbar fusion) /RECORDER OF DEEDS: section HEENT: Tonsil/Adenoidectomy - Present Medications Home Medications: Ambulatory Orders Medication Instructions Recorded Confirmed Levothyroxine Sodium [Synthroid] 25 mcg PO DAILY 10/06/12 08/10/18 Metoprolol Succinate [Toprol Xl] 50 mg PO DAILY 10/06/12 08/10/18 Morphine ER [Ms Contin] 30 mg PO Q8H 10/06/12 08/10/18 Morphine Ir [Ms Ir] 15 mg PO BID PRN 10/06/12 08/10/18 Glimepiride 2 mg PO QDBREAKFAST 06/14/16 08/10/18 LORazepam [Lorazepam] 0.5 mg PO BID PRN 06/14/16 08/10/18 Carpio Carbonate [Carpio 450 mg PO DAILY 06/14/16 08/10/18 Carbonate ER] Omeprazole 20 mg PO QDAC 06/14/16 08/10/18 Venlafaxine HCl 75 mg PO BID 06/14/16 08/10/18 risperiDONE [Risperdal] 1 mg PO QPM 06/14/16 08/10/18 Gemfibrozil 600 mg PO BID 08/10/18 08/10/18 raNITIdine [Zantac] 150 tab PO BID 08/10/18 08/10/18 - Allergies Allergies/Adverse Reactions: Allergies Allergy/AdvReac Type Severity Reaction Status Date / Time NSAIDS (Non-Steroidal Allergy Mild Hives Verified 08/10/18 11:22 Anti-Inflamma Sulfa (Sulfonamide AdvReac Mild Rash Verified 01/12/18 13:51 Antibiotics) - Social History Does the pt smoke?: Yes Smoking Status: Current every day smoker Does the pt drink ETOH?: No Does the pt have substance abuse?: No - Immunizations Immunizations are current?: Yes Immunizations: TDAP >10years/unknown - POLST Patient has POLST: No PD ED PE NORMAL - Vitals Vital signs reviewed: Yes - General General: Alert and oriented X 3, No acute distress, Well developed/nourished - HEENT HEENT: PERRL, Moist mucous membranes - Neck Neck: Supple, no meningeal sign - Cardiac Cardiac: RRR, Strong equal pulses - Respiratory Respiratory: No respiratory distress, Clear bilaterally - Abdomen Abdomen: Soft, Non tender, Non distended - Derm Derm: Warm and dry - Neuro Neuro: Alert and oriented X 3 - Psych Psych: Normal mood, Normal affect Results - Vitals Vitals: Vital Signs - 24 hr 08/10/18 08/10/18 08/10/18 11:16 11:19 11:31 Temperature 36.6 C Heart Rate 67 72 Respiratory 17 17 Rate Blood Pressure 123/69 134/62 H O2 Saturation 98 100 08/10/18 08/10/18 13:01 13:36 Temperature Heart Rate 68 56 L Respiratory 20 25 H Rate Blood Pressure 124/72 120/51 L O2 Saturation 97 98 Oxygen O2 Source Room air - Labs Labs: Laboratory Tests 08/10/18 08/10/18 08/10/18 11:51 11:57 11:57 WBC 9.7 RBC 3.91 L Hgb 12.1 Hct 37.5 MCV 96.1 MCH 31.0 MCHC 32.2 RDW 14.1 Plt Count 319 MPV 6.8 L Neut # (Auto) 7.0 H Lymph # (Auto) 1.8 [place] # (Auto) 0.7 Eos # (Auto) 0.1 Baso # (Auto) 0.0 Absolute Nucleated RBC 0.00 Nucleated RBC % 0.0 Sodium 139 Potassium 4.6 Chloride 107 Carbon Dioxide 24 Anion Gap 8.0 BUN 21 H Creatinine 1.6 H Estimated GFR (MDRD) 32 L Glucose 36 L* Calcium 9.8 Total Bilirubin 0.4 AST 21 ALT 12 Alkaline Phosphatase 115 Total Protein 7.2 Albumin 3.5 Globulin 3.7 Albumin/Globulin Ratio 0.9 L Lipase 44 Last Dose Date Not Reportable Last Dose Time Not Reportable Carpio 0.66 PD MEDICAL DECISION MAKING - ED course Complexity details: reviewed results, re-evaluated patient, considered differential, d/w patient, d/w [employer] consultant ED course: 68-year-old female with recurrent hypoglycemia despite D50 and food. She is on once a week diabetic medication. I do not think that this will improve in a few hours, started on a D5 drip and will admit for further care. Discussed the case with Dr. Diaz, hospitalist who accepts. Raquel has a very long h assisted-life, therefore expect that this will longer to improve. She is also on glimiperide. This document was made in part using voice recognition software. While efforts are made to proofread this document, sound alike and grammatical errors may occur. Departure - Departure Disposition: 68 [facility] DC/Xfer Clinical Impression: Hypoglycemia Condition: Stable
[2018-08-10 12:03] LABS: BASOPHILS % (AUTO) 0.3 %; EOSINOPHILS # (AUTO) 0.1 10^3/uL (0.0-0.7); EOSINOPHILS % (AUTO) 1.2 %; HGB - HEMOGLOBIN 12.1 g/dL (12.0-16.0); LYMPHOCYTES # (AUTO) 1.8 10^3/uL (1.5-3.5); LYMPHOCYTES % (AUTO) 18.9 %; MEAN CORPUSCULAR HGB CONC 32.2 g/dL (32.0-36.0); MEAN CORPUSCULAR VOLUME 96.1 fL (81.0-99.0); MEAN PLATELET VOLUME 6.8 fL (7.9-10.8); MONOCYTES # (AUTO) 0.7 10^3/uL (0.0-1.0); MONOCYTES % (AUTO) 6.9 %; NEUTROPHILS % (AUTO) 72.7 %; PLT - PLATELET COUNT 319 10^3/uL (130-450); RED BLOOD COUNT 3.91 10^6/uL (4.20-5.40); RED CELL DISTRIBUTION WIDTH 14.1 % (12.0-15.0); WHITE BLOOD COUNT 9.7 x10^3/uL (4.8-10.8)
[2018-08-10 12:19] LABS: LITHIUM 0.66 mmol/L
[2018-08-10 12:38] LABS: ALBUMIN 3.5 g/dL (3.2-5.5); ALBUMIN/GLOBULIN RATIO 0.9 (1.0-2.2); BILIRUBIN,TOTAL 0.4 mg/dL (0.2-1.0); CALCIUM 9.8 mg/dL (8.5-10.3); CREATININE 1.6 mg/dL (0.4-1.0); TOTAL PROTEIN 7.2 g/dL (6.7-8.2)
[2018-08-10] MEDS: DEXTROSE 5%-0.45% NACL 1,000 ML IV ONE ×2 (12:54→13:14)
[2018-08-10] MEDS ORDERED: DEXTROSE 50% ABBOJECT 25 GM/50 ML SYRINGE IVP STA (13:03)
[2018-08-10] MEDS ORDERED: ACETAMINOPHEN 325 MG TABLET PO PRN (13:54)
[2018-08-10] MEDS ORDERED: SODIUM CHLORIDE FLUSH 0.9% 10 ML SYRINGE IVP PRN (13:54)
[2018-08-10] MEDS ORDERED: PROCHLORPERAZINE 10 MG/2 ML VIAL IVP PRN (13:54)
[2018-08-10 14:32] LABS: HB2 TOTAL 13.1 g/dL; HEMOGLOBIN A1C 0.5 g/dL; HEMOGLOBIN A1C % 5.6 % (4.6-6.2)
[2018-08-10] MEDS: D5NS W/20 MEQ KCL 1,000 ML IV SCH (15:14)
[2018-08-10] MEDS: SODIUM CHLORIDE FLUSH 0.9% 10 ML SYRINGE IVP SCH (16:01)
--- NOTE | 2018-08-10 18:38 | HISTORY & PHYSICAL EXAMINATION ---
DATE OF SERVICE: 08/10/2018 Physician: Gayle Diaz MD HISTORY OF PRESENT ILLNESS: This is a 68-year-old white female with a history of type 2 diabetes, tobacco use of 1 pack a day, mild asthma history, history of DVT on Xarelto, history of bipolar disorder, hypothyroidism, and chronic back pain with fusion lower back surgery. Patient presents with feeling confused and called 911, who arrived and found that her blood sugar was 17, she was given D50 and the fingerstick increased to a glucose level of 72, she was brought to the ER where the fingerstick on arrival was again down to 34. They started her on oral management plus IV treatment, and she is being admitted because of her use of Trulicity, which is a once a week agent that has a long half-life, as well as Glimepiride oral diabetic agent, which are likely to keep her glucose low for many days. PAST MEDICAL HISTORY: As above including diabetes, tobacco use, asthma, low back pain, for which she has become bedbound, diabetes, DVT history on Xarelto, bipolar history, on Whitlock and Effexor, and hypothyroidism. Patient describes that her sugar has been controlled with an oral agent, but she is not aware of the dose or name because it is given to her by a caregiver that arrives to her house for several hours a day, and that she has been on Trulicity for possibly over a year. She does not do fingerstick checks for many months, states that her PCP told her that it was not imperative because of her overall condition. She eats Meals on Wheels and does state that she consumes all of her diet, and there has been no change, specifically no decrease, in her oral intake lately. REVIEW OF SYSTEMS: She denies any diarrhea, dysuria, chest pain, shortness of breath, she does get palpitations intermittently, has never had syncope. There is no past cardiac history, or pulmonary complaints. She has chronic constipation, and she knows this is from the narcotic use that she needs for her back pain. A comprehensive review of systems was performed and the pertinent positives are listed, the rest are negative. FAMILY HISTORY: No inherited diseases. SOCIAL HISTORY: She is a 1 pack a day smoker, uses CBD cannabis oil sublingual, drinks no alcohol. She lives with her , who has had a stroke, but he is more ambulatory than she is. The patient gets a caregiver that comes to her house and administers the medications to her. The patient herself does not know the names of her medicines or the doses, because of the caregiver being in charge of those dosings. MEDICATIONS 1. Levothyroxine 25 mcg daily. 2. Toprol-XL 50 mg daily. 3. MS Contin 30 mg t.i.d. 4. Morphine IR 15 mg b.i.d. p.r.n. 5. Glimepiride 2 mg p.o. daily. 6. Lorazepam 0.5 mg b.i.d. p.r.n. 7. Whitlock 450 mg daily. 8. Effexor 75 mg b.i.d. 9. Omeprazole 20 mg daily. 10. Risperdal 1 mg every night. 11. Gemfibrozil 600 mg b.i.d. 12. Zantac 150 mg b.i.d. ALLERGIES: NONSTEROIDALS, WHICH GAVE HER HIVES, AND SULFA, WHICH GAVE HER A RASH. PAST SURGICAL HISTORY: Knee replacement bilaterally, lumbar fusion, tonsils and adenoids, , possibly breast augmentation. PHYSICAL EXAMINATION GENERAL: Elderly white female. She is in no distress. She has a fine intentional tremor. VITAL SIGNS: Blood pressure 140/70, heart rate 60, in sinus rhythm, afebrile, room air saturation 99%. HEENT: Unremarkable. Oral dentition is good. NECK: Without JVD or carotid bruits. LUNGS: Clear. HEART: Sounds normal. No murmur. ABDOMEN: Mildly distended. Decreased bowel sounds. No tenderness. No hepatomegaly. EXTREMITIES: No clubbing, cyanosis, or edema. NEUROLOGIC: She was not tested for gait or lower extremity strength, her upper extremities have good strength, and she is alert, awake, and oriented x3. LABORATORY DATA: Sodium 139, potassium 4.6, BUN 21, creatinine 1.6, glucose 36. A1c 5.6. AST 21, ALT 12, lipase normal. Whitlock level therapeutic at 0.66. CBC unremarkable. DIAGNOSTIC DATA: No imaging was done. No EKG was done. IMPRESSION/DIAGNOSES 1. Hypoglycemia related to Trulicity long-lasting effect plus oral hypoglycemic agent and without fingerstick checks. And there is evidence of very strict glucose control by virtue of an A1c that is under 6. 2. Diabetes mellitus, type 2. 3. Acute kidney injury. 4. Bedbound due to low back pain. 5. Tobacco abuse. 6. History of asthma. 7. Constipation 8. History of deep venous thrombosis, possibly due to bedbound condition. 9. History of bipolar disorder, on treatment. 10. History of hypothyroidism, on treatment. PLAN: Admit the patient to a med/surg bed on telemetry. Begin an IV with D5, as well as saline with potassium because of her acute kidney injury. Perform q. 2 hour fingerstick checks to assure that she is not becoming hypoglycemic. Start a carb-controlled diet, will order 5 carbs, with 2 snacks per day. Continue to treat her low back pain, since she is now narcotic dependent on the above doses. Start a nicotine patch because of her cigarette use. Continue with her Lorazepam, Respiridal, Whitlock, Effexor, and Levothyroxine. Begin medications for her complaints of constipation. Continue treating her GERD and ulcer prophylax with Pepcid. Stop the Trulicity and oral diabetic agent. Consider using a ss Insulin low dose protocol. Stop the B-leanna, which is likely masking hypoglycemic symptoms. CODE STATUS: FULL CODE. DEEP VENOUS THROMBOSIS PROPHYLAXIS: Pharmaceutical. ATTESTATION: The patient is expected to be discharged or transferred to another facility within 96 hours: Yes. TD: 08/10/2018 18:22 ETIENNE
[2018-08-10] MEDS: NICOTINE 21 MG PATCH TOP SCH (18:41)
[2018-08-10] MEDS: MORPHINE ER 15 MG TABLET PO PRN (18:42)
[2018-08-10 19:09] LABS: CALCIUM 9.4 mg/dL (8.5-10.3); CREATININE 1.7 mg/dL (0.4-1.0)
[2018-08-10] MEDS: VENLAFAXINE 37.5 MG TABLET PO SCH (21:11)
[2018-08-10] MEDS: oxyCODONE 5 MG TABLET PO SCH (21:11)
[2018-08-10] MEDS: GEMFIBROZIL 600 MG TABLET PO SCH (21:12)
[2018-08-10] MEDS: risperiDONE 1 MG TABLET PO SCH (21:12)
[2018-08-10] MEDS: NYSTATIN POWDER 15 GM TOP SCH (21:12)
[2018-08-10] MEDS: FAMOTIDINE 20 MG TABLET PO SCH (21:12)
[2018-08-11] MEDS: D5NS W/20 MEQ KCL 1,000 ML IV SCH ×2 (00:44→10:45)
[2018-08-11] MEDS: SODIUM CHLORIDE FLUSH 0.9% 10 ML SYRINGE IVP SCH ×3 (02:05→16:20)
[2018-08-11] MEDS ORDERED: DEXTROSE GEL 37.5 GM TUBE PO SCH ×2 (02:14)
[2018-08-11] MEDS: MORPHINE IR 15 MG TABLET PO PRN ×2 (02:41→19:15)
[2018-08-11] MEDS: oxyCODONE 5 MG TABLET PO SCH ×4 (06:12→22:06)
[2018-08-11 06:26] LABS: CALCIUM 9.3 mg/dL (8.5-10.3); CREATININE 1.5 mg/dL (0.4-1.0)
[2018-08-11] MEDS: NICOTINE 21 MG PATCH TOP SCH (09:44)
[2018-08-11] MEDS: GEMFIBROZIL 600 MG TABLET PO SCH ×2 (09:44→21:10)
[2018-08-11] MEDS: FAMOTIDINE 20 MG TABLET PO SCH (09:44)
[2018-08-11] MEDS: LITHIUM ER 300 MG TABLET PO SCH (09:44)
[2018-08-11] MEDS: SENNA 8.6 MG TABLET PO SCH ×4 (09:44→21:13)
[2018-08-11] MEDS: LEVOTHYROXINE 25 MCG TABLET PO SCH (09:44)
[2018-08-11] MEDS: VENLAFAXINE 37.5 MG TABLET PO SCH ×2 (09:44→21:10)
[2018-08-11] MEDS: POLYETHYLENE GLYCOL 3350 17 GM PACKET PO SCH (09:45)
[2018-08-11] MEDS: NYSTATIN POWDER 15 GM TOP SCH ×2 (09:46→21:10)
--- NOTE | 2018-08-11 15:11 | PROVIDER PROGRESS NOTE ---
Assessment/Plan - Problem List (1) Hypoglycemia Assessment/Plan: Desoite a 5-carb DM diet and iv D5, she is still getting glu fingerstick resukts of 70's. Continue present management. DM Education from [facility] requested in consult. (2) DM type 2 (diabetes mellitus, type 2) Assessment/Plan: She will likely be DCh after the Trulicity effect wears off, in about 3 more da ys. Will probably use Metformin only for DM management. (3) Hyperkalemia Assessment/Plan: IV fluids contain K. Will change iv fluids. Follow BMP daily. (4) VICKIE (acute kidney injury) Assessment/Plan: Creat is still elevated. Continue iv hydration. Follow BMP daily. (5) Chronic back pain Qualifiers: Back pain location: low back pain Back pain laterality: unspecified Sciatica presence: with sciatica Qualified Code(s): M54.5 - Low back pain; G89.29 - Other chronic pain; G89.29 - Other chronic pain Assessment/Plan: Pt on her home narcotic pain med doses and states control is adequate. She is also bedbound, no PT is planned. (6) Hypothyroidism Assessment/Plan: Pt on her home med. - Current Meds Current Meds: Current Medications Generic Name Dose Route Start Last Admin Trade Name Freq PRN Reason Stop Dose Admin Famotidine 20 mg 08/10/18 21:00 08/11/18 09:44 Pepcid PO 20 mg DAILY JARETT Administration Gemfibrozil 600 mg 08/10/18 21:00 08/11/18 09:44 Lopid PO 600 mg BID JARETT Administration Levothyroxine Sodium 25 mcg 08/11/18 09:00 08/11/18 09:44 Synthroid PO 25 mcg DAILY JARETT Administration Chama Carbonate 300 mg 08/11/18 09:00 08/11/18 09:44 Lithobid PO 300 mg DAILY JARETT Administration Morphine Sulfate 30 mg 08/10/18 14:03 08/10/18 18:42 PO 30 mg Q12H PRN Administration Breakthrough Pain Morphine Sulfate 15 mg 08/10/18 14:03 08/11/18 02:41 Ms Ir PO 15 mg BID PRN Administration Breakthrough Pain Nicotine 1 patch 08/10/18 17:59 08/11/18 09:44 Nicoderm TOP 1 patch DAILY JARETT Administration Nystatin 1 applic 08/10/18 21:00 08/11/18 09:46 Nystop TOP 1 applic BID JARETT Administration Oxycodone HCl 10 mg 08/10/18 22:00 08/11/18 13:28 Roxicodone PO 10 mg TID JARETT Administration Polyethylene Glycol 17 gm 08/11/18 09:00 08/11/18 09:45 Miralax PO 17 gm DAILY JARETT Administration Risperidone 1 mg 08/10/18 21:00 08/10/18 21:12 Risperdal PO 1 mg QPM JARETT Administration Senna 8.6 - 17.2 mg 08/11/18 09:00 08/11/18 09:44 Senokot PO 17.2 mg DAILY JARETT Administration Senna 17.2 - 25.8 mg 08/11/18 10:00 08/11/18 10:56 Senokot PO 08/12/18 04:01 8.6 mg Q6H JARETT Administration Sodium Chloride 10 ml 08/10/18 17:00 08/11/18 09:45 Normal Saline Flush 0.9% IVP Not Given 0100,0900,1700 [facility] Venlafaxine HCl 75 mg 08/10/18 21:00 08/11/18 09:44 Effexor PO 75 mg BID JARETT Administration - Lab Result Fish Bone Diagrams: 08/10/18 11:57 08/11/18 06:06 - Additional Planning My Orders: My Active Orders 08/10/18 14:15 Albuterol Sulf [Ventolin Hfa Inhaler] DOSE UNIT RTE FREQ 08/10/18 15:00 Rivaroxaban [Xarelto] DOSE UNIT RTE FREQ Tamsulosin [Flomax] DOSE UNIT RTE FREQ 08/10/18 17:00 Sodium Chloride Flush 0.9% [Normal Saline Flush 0.9%] 10 ml IVP 0100,0900,1700 08/10/18 17:59 Nicotine 21 mg Patch [Nicoderm] 1 patch TOP DAILY 08/10/18 21:00 Famotidine [Pepcid] 20 mg PO DAILY Gemfibrozil [Lopid] 600 mg PO BID Nystatin [Nystop] 1 applic TOP BID Venlafaxine [Effexor] 75 mg PO BID risperiDONE [RisperDAL] 1 mg PO QPM 08/10/18 22:00 oxyCODONE [Roxicodone] 10 mg PO TID 08/10/18 Dinner Carb-controlled Diet [DIET] 08/11/18 09:00 Levothyroxine [Synthroid] 25 mcg PO DAILY Chama ER [Lithobid] 300 mg PO DAILY Polyethylene Glycol 3350 [Miralax] 17 gm PO DAILY Senna [Senokot] 8.6 - 17.2 mg PO DAILY 08/11/18 10:00 Senna [Senokot] 17.2 - 25.8 mg PO Q6H 08/11/18 16:00 Dextrose 5%-0.45% NaCl [D5.45ns] 1,000 ml IV 100 mls/hr 08/12/18 05:00 BMP - BASIC METABOLIC PANEL [CHEM] DAILYLAB 08/13/18 05:00 BMP - BASIC METABOLIC PANEL [CHEM] DAILYLAB 08/14/18 05:00 BMP - BASIC METABOLIC PANEL [CHEM] DAILYLAB 08/15/18 05:00 BMP - BASIC METABOLIC PANEL [CHEM] DAILYLAB Subjective - Subjective Patient Reports: Feeling Better, Fatigue Objective Vital Signs: Vital Signs - 24 hr 08/10/18 08/10/18 08/11/18 15:42 19:51 01:14 Temperature 36.6 C 36.8 C 36.8 C Heart Rate [ 63 64 74 Brachial] Respiratory 16 22 18 Rate Blood Pressure 139/73 H 132/56 H 134/47 H [Left Brachial artery] O2 Saturation 99 100 98 08/11/18 08/11/18 07:19 11:13 Temperature 36.3 C L 36.6 C Heart Rate [ 78 63 Brachial] Respiratory 18 16 Rate Blood Pressure 135/58 H 127/53 L [Left Brachial artery] O2 Saturation 98 99 Oxygen O2 Source Room air I&O (Last 24 Hrs): Intake and Output Totals x24h 08/09/18 08/10/18 08/11/18 23:59 23:59 23:59 Intake Total 1892.5 3670 Output Total 1400 Balance 1892.5 2270 General: Alert, Oriented x3, Other (Appears fatigued) HEENT: Mucous membr. moist/pink Neck: Supple, No JVD Neuro: Non Focal Cardiovascular: No murmurs Respiratory: No respiratory distress, Breath sounds nml Abdomen: Soft, Other (Obese) Extremities: No edema - Results Results: Laboratory Results WBC 9.7 x10^3/uL (4.8-10.8) 08/10/18 11:57 RBC 3.91 10^6/uL (4.20-5.40) L 08/10/18 11:57 Hgb 12.1 g/dL (12.0-16.0) 08/10/18 11:57 Hct 37.5 % (37.0-47.0) 08/10/18 11:57 MCV 96.1 fL (81.0-99.0) 08/10/18 11:57 MCH 31.0 pg (27.0-31.0) 08/10/18 11:57 MCHC 32.2 g/dL (32.0-36.0) 08/10/18 11:57 RDW 14.1 % (12.0-15.0) 08/10/18 11:57 Plt Count 319 10^3/uL (130-450) 08/10/18 11:57 MPV 6.8 fL (7.9-10.8) L 08/10/18 11:57 Neut # (Auto) 7.0 10^3/uL (1.5-6.6) H 08/10/18 11:57 Lymph # (Auto) 1.8 10^3/uL (1.5-3.5) 08/10/18 11:57 [place] # (Auto) 0.7 10^3/uL (0.0-1.0) 08/10/18 11:57 Eos # (Auto) 0.1 10^3/uL (0.0-0.7) 08/10/18 11:57 Baso # (Auto) 0.0 10^3/uL (0.0-0.1) 08/10/18 11:57 Absolute Nucleated RBC 0.00 x10^3/uL 08/10/18 11:57 Nucleated RBC % 0.0 /100WBC 08/10/18 11:57 Sodium 141 mmol/L (135-145) 08/11/18 06:06 Potassium 5.1 mmol/L (3.5-5.0) H 08/11/18 06:06 Chloride 114 mmol/L (101-111) H 08/11/18 06:06 Carbon Dioxide 20 mmol/L (21-32) L 08/11/18 06:06 Anion Gap 7.0 (6-13) 08/11/18 06:06 BUN 19 mg/dL (6-20) 08/11/18 06:06 Creatinine 1.5 mg/dL (0.4-1.0) H 08/11/18 06:06 Estimated GFR (MDRD) 35 (>89) L 08/11/18 06:06 Glucose 71 mg/dL (70-100) 08/11/18 06:06 Glycated Hemoglobin 5.6 % (4.6-6.2) 08/10/18 11:00 Estim Average Glucose 114 (70-100) H 08/10/18 11:00 Calcium 9.3 mg/dL (8.5-10.3) 08/11/18 06:06 Total Bilirubin 0.4 mg/dL (0.2-1.0) 08/10/18 11:51 AST 21 IU/L (10-42) 08/10/18 11:51 ALT 12 IU/L (10-60) 08/10/18 11:51 Alkaline Phosphatase 115 IU/L (42-121) 08/10/18 11:51 Total Protein 7.2 g/dL (6.7-8.2) 08/10/18 11:51 Albumin 3.5 g/dL (3.2-5.5) 08/10/18 11:51 Globulin 3.7 g/dL (2.1-4.2) 08/10/18 11:51 Albumin/Globulin Ratio 0.9 (1.0-2.2) L 08/10/18 11:51 Lipase 44 U/L (22-51) 08/10/18 11:51 Last Dose Date Not Reportable 08/10/18 11:57 Last Dose Time Not Reportable 08/10/18 11:57 Chama 0.66 mmol/L 08/10/18 11:57 - Procedures Procedures: Procedures COLONOSCOPY (01/09/13)
[2018-08-11] MEDS: DEXTROSE 5%-0.45% NACL 1,000 ML IV SCH (15:26)
[2018-08-11] MEDS: risperiDONE 1 MG TABLET PO SCH (21:10)
[2018-08-12] MEDS: SODIUM CHLORIDE FLUSH 0.9% 10 ML SYRINGE IVP SCH ×3 (00:35→16:59)
[2018-08-12] MEDS: SENNA 8.6 MG TABLET PO SCH ×3 (01:18→09:14)
[2018-08-12] MEDS: DEXTROSE 5%-0.45% NACL 1,000 ML IV SCH ×3 (01:31→20:53)
[2018-08-12] MEDS: oxyCODONE 5 MG TABLET PO SCH ×3 (06:10→21:40)
[2018-08-12 06:25] LABS: CALCIUM 9.5 mg/dL (8.5-10.3); CREATININE 1.5 mg/dL (0.4-1.0)
[2018-08-12] MEDS: LEVOTHYROXINE 25 MCG TABLET PO SCH (09:02)
[2018-08-12] MEDS: FAMOTIDINE 20 MG TABLET PO SCH (09:03)
[2018-08-12] MEDS: LITHIUM ER 300 MG TABLET PO SCH (09:03)
[2018-08-12] MEDS: GEMFIBROZIL 600 MG TABLET PO SCH ×2 (09:03→20:51)
[2018-08-12] MEDS: POLYETHYLENE GLYCOL 3350 17 GM PACKET PO SCH (09:03)
[2018-08-12] MEDS: NICOTINE 21 MG PATCH TOP SCH (09:04)
[2018-08-12] MEDS: VENLAFAXINE 37.5 MG TABLET PO SCH ×2 (09:27→20:51)
[2018-08-12] MEDS ORDERED: ALBUTEROL NEB 2.5 MG/3 ML INH PRN (11:00)
[2018-08-12] MEDS: NYSTATIN POWDER 15 GM TOP SCH ×2 (11:58→20:53)
--- NOTE | 2018-08-12 13:27 | PROVIDER PROGRESS NOTE ---
Assessment/Plan - Problem List (1) Hypoglycemia Assessment/Plan: Improved fingerstick glu values, 48 hours off all DM meds. Continue present plan with DM diet and iv D5 and frq fingerstick checks. Will possibly change to diet plus oral DM agent tomorrow. I discussed DM management with the [facility] DM education nurse, Valeria Chavira, at length. (2) DM type 2 (diabetes mellitus, type 2) Assessment/Plan: As above (3) Hyperkalemia Assessment/Plan: Resolved (4) VICKIE (acute kidney injury) Assessment/Plan: Elevated creat persists, potential CKD. This will affect which DM agent to use for management. (5) Chronic back pain Qualifiers: Back pain location: low back pain Back pain laterality: unspecified Scia masha presence: with sciatica Assessment/Plan: Stable on home med doses. (6) Hypothyroidism Assessment/Plan: Stable on home med dose. - Current Meds Current Meds: Current Medications Generic Name Dose Route Start Last Admin Trade Name Freq PRN Reason Stop Dose Admin Famotidine 20 mg 08/10/18 21:00 08/12/18 09:03 Pepcid PO 20 mg DAILY JARETT Administration Gemfibrozil 600 mg 08/10/18 21:00 08/12/18 09:03 Lopid PO 600 mg BID JARETT Administration Dextrose/Sodium Chloride 1,000 mls @ 100 mls/hr 08/11/18 16:00 08/12/18 11:57 D5.45ns IV 100 mls/hr .Q10H JARETT Administration Levothyroxine Sodium 25 mcg 08/11/18 09:00 08/12/18 09:02 Synthroid PO 25 mcg DAILY JARETT Administration [place] Carbonate 300 mg 08/11/18 09:00 08/12/18 09:03 Lithobid PO 300 mg DAILY JARETT Administration Morphine Sulfate 30 mg 08/10/18 14:03 08/10/18 18:42 PO 30 mg Q12H PRN Administration Breakthrough Pain Morphine Sulfate 15 mg 08/10/18 14:03 08/11/18 19:15 Ms Ir PO 15 mg BID PRN Administration Breakthrough Pain Nicotine 1 patch 08/10/18 17:59 08/12/18 09:04 Nicoderm TOP 1 patch DAILY JARETT Administration Nystatin 1 applic 08/10/18 21:00 08/12/18 11:58 Nystop TOP 1 applic BID JARETT Administration Oxycodone HCl 10 mg 08/10/18 22:00 08/12/18 06:10 Roxicodone PO Not Given TID JARETT Polyethylene Glycol 17 gm 08/11/18 09:00 08/12/18 09:03 Miralax PO 17 gm DAILY JARETT Administration Risperidone 1 mg 08/10/18 21:00 08/11/18 21:10 Risperdal PO 1 mg QPM JARETT Administration Senna 8.6 - 17.2 mg 08/11/18 09:00 08/12/18 09:14 Senokot PO 8.6 mg DAILY JARETT Administration Sodium Chloride 10 ml 08/10/18 17:00 08/12/18 11:23 Normal Saline Flush 0.9% IVP Not Given 0100,0900,1700 JARETT Venlafaxine HCl 75 mg 08/10/18 21:00 08/12/18 09:27 Effexor PO 75 mg BID JARETT Administration - Lab Result Fish Bone Diagrams: 08/10/18 11:57 08/12/18 05:05 - Additional Planning My Orders: My Active Orders 08/11/18 16:00 Dextrose 5%-0.45% NaCl [D5.45ns] 1,000 ml IV 100 mls/hr 08/12/18 11:00 Albuterol 2.5 mg INH Q4H PRN 08/13/18 05:00 BMP - BASIC METABOLIC PANEL [CHEM] DAILYLAB 08/14/18 05:00 BMP - BASIC METABOLIC PANEL [CHEM] DAILYLAB 08/15/18 05:00 BMP - BASIC METABOLIC PANEL [CHEM] DAILYLAB Subjective - Subjective Patient Reports: Feeling Better, Resting Comfortably Nursing Reports: Other (Was able to sit in a chair for meal.) Objective Vital Signs: Vital Signs - 24 hr 08/11/18 08/11/18 08/11/18 15:48 16:51 20:05 Temperature 36.7 C 36.7 C 36.6 C Heart Rate 66 Heart Rate [ 66 80 Brachial] Respiratory 16 16 16 Rate Blood Pressure 139/65 H 122/52 L [Left Brachial artery] O2 Saturation 98 98 97 08/12/18 08/12/18 08/12/18 00:00 06:25 08:15 Temperature 36.9 C 36.8 C 36.6 C Heart Rate Heart Rate [ 76 84 89 Brachial] Respiratory 16 17 16 Rate Blood Pressure 151/69 H 138/59 H 135/77 H [Left Brachial artery] O2 Saturation 99 96 99 08/12/18 11:51 Temperature 36.7 C Heart Rate Heart Rate [ 82 Brachial] Respiratory 18 Rate Blood Pressure 166/68 H [Left Brachial artery] O2 Saturation 99 Oxygen O2 Source Room air I&O (Last 24 Hrs): Intake and Output Totals x24h 08/10/18 08/11/18 08/12/18 23:59 23:59 23:59 Intake Total 1892.5 5205 2580 Output Total 1950 650 Balance 1892.5 3255 1930 General: Alert, Oriented x3 HEENT: Mucous membr. moist/pink, Other (R eye lid lag (not new).) Neck: Supple, No JVD Neuro: Non Focal Cardiovascular: Regular rate, No murmurs Respiratory: No respiratory distress, Breath sounds nml Abdomen: Soft, Other (Obese with pannus) Extremities: No edema - Results Results: Laboratory Results WBC 9.7 x10^3/uL (4.8-10.8) 08/10/18 11:57 RBC 3.91 10^6/uL (4.20-5.40) L 08/10/18 11:57 Hgb 12.1 g/dL (12.0-16.0) 08/10/18 11:57 Hct 37.5 % (37.0-47.0) 08/10/18 11:57 MCV 96.1 fL (81.0-99.0) 08/10/18 11:57 MCH 31.0 pg (27.0-31.0) 08/10/18 11:57 MCHC 32.2 g/dL (32.0-36.0) 08/10/18 11:57 RDW 14.1 % (12.0-15.0) 08/10/18 11:57 Plt Count 319 10^3/uL (130-450) 08/10/18 11:57 MPV 6.8 fL (7.9-10.8) L 08/10/18 11:57 Neut # (Auto) 7.0 10^3/uL (1.5-6.6) H 08/10/18 11:57 Lymph # (Auto) 1.8 10^3/uL (1.5-3.5) 08/10/18 11:57 [place] # (Auto) 0.7 10^3/uL (0.0-1.0) 08/10/18 11:57 Eos # (Auto) 0.1 10^3/uL (0.0-0.7) 08/10/18 11:57 Baso # (Auto) 0.0 10^3/uL (0.0-0.1) 08/10/18 11:57 Absolute Nucleated RBC 0.00 x10^3/uL 08/10/18 11:57 Nucleated RBC % 0.0 /100WBC 08/10/18 11:57 Sodium 142 mmol/L (135-145) 08/12/18 05:05 Potassium 4.7 mmol/L (3.5-5.0) 08/12/18 05:05 Chloride 112 mmol/L (101-111) H 08/12/18 05:05 Carbon Dioxide 23 mmol/L (21-32) 08/12/18 05:05 Anion Gap 7.0 (6-13) 08/12/18 05:05 BUN 21 mg/dL (6-20) H 08/12/18 05:05 Creatinine 1.5 mg/dL (0.4-1.0) H 08/12/18 05:05 Estimated GFR (MDRD) 35 (>89) L 08/12/18 05:05 Glucose 91 mg/dL (70-100) 08/12/18 05:05 Glycated Hemoglobin 5.6 % (4.6-6.2) 08/10/18 11:00 Estim Average Glucose 114 (70-100) H 08/10/18 11:00 Calcium 9.5 mg/dL (8.5-10.3) 08/12/18 05:05 Total Bilirubin 0.4 mg/dL (0.2-1.0) 08/10/18 11:51 AST 21 IU/L (10-42) 08/10/18 11:51 ALT 12 IU/L (10-60) 08/10/18 11:51 Alkaline Phosphatase 115 IU/L (42-121) 08/10/18 11:51 Total Protein 7.2 g/dL (6.7-8.2) 08/10/18 11:51 Albumin 3.5 g/dL (3.2-5.5) 08/10/18 11:51 Globulin 3.7 g/dL (2.1-4.2) 08/10/18 11:51 Albumin/Globulin Ratio 0.9 (1.0-2.2) L 08/10/18 11:51 Lipase 44 U/L (22-51) 08/10/18 11:51 Last Dose Date Not Reportable 08/10/18 11:57 Last Dose Time Not Reportable 08/10/18 11:57 Hugo 0.66 mmol/L 08/10/18 11:57 - Procedures Procedures: Procedures COLONOSCOPY (01/09/13)
[2018-08-12] MEDS ORDERED: LORazepam 0.5 MG TABLET PO PRN (17:51)
[2018-08-12] MEDS ORDERED: POLYETHYLENE GLYCOL 3350 238 GM BOTTLE PO PRN (17:51)
[2018-08-12] MEDS ORDERED: RIVAROXABAN 15 MG TABLET PO SCH (17:53)
[2018-08-12] MEDS ORDERED: TAMSULOSIN 0.4 MG CAPSULE PO SCH (17:54)
[2018-08-12] MEDS: MORPHINE ER 15 MG TABLET PO PRN (19:49)
[2018-08-12] MEDS: risperiDONE 1 MG TABLET PO SCH (20:51)
[2018-08-12] MEDS ORDERED: NIACIN 500 MG PO SCH (21:00)
[2018-08-13] MEDS: SODIUM CHLORIDE FLUSH 0.9% 10 ML SYRINGE IVP SCH ×4 (00:15→23:49)
[2018-08-13] MEDS: DEXTROSE 5%-0.45% NACL 1,000 ML IV SCH ×2 (06:20→16:37)
[2018-08-13] MEDS: oxyCODONE 5 MG TABLET PO SCH ×3 (06:27→22:04)
[2018-08-13 07:39] LABS: CREATININE 1.5 mg/dL (0.4-1.0)
[2018-08-13] MEDS: NICOTINE 21 MG PATCH TOP SCH (08:36)
[2018-08-13] MEDS: POLYETHYLENE GLYCOL 3350 17 GM PACKET PO SCH (08:36)
[2018-08-13] MEDS: SENNA 8.6 MG TABLET PO SCH (08:38)
[2018-08-13] MEDS: METOPROLOL SUCCINATE 50 MG TABLET PO SCH (08:39)
[2018-08-13] MEDS: VENLAFAXINE 37.5 MG TABLET PO SCH ×2 (08:40→21:00)
[2018-08-13] MEDS: FAMOTIDINE 20 MG TABLET PO SCH (08:40)
[2018-08-13] MEDS: LITHIUM ER 300 MG TABLET PO SCH (08:41)
[2018-08-13] MEDS: LEVOTHYROXINE 25 MCG TABLET PO SCH (08:41)
[2018-08-13] MEDS: GEMFIBROZIL 600 MG TABLET PO SCH ×2 (08:41→21:00)
[2018-08-13] MEDS: NYSTATIN POWDER 15 GM TOP SCH ×2 (08:43→21:00)
--- NOTE | 2018-08-13 18:25 | PROVIDER PROGRESS NOTE ---
Assessment/Plan - Problem List (1) Hypoglycemia Assessment/Plan: Glu still 70-150 despite no DM meds and on D5 iv plus a diet. Continue present plan, no restart of DM meds yet, no DCh today. (2) DM type 2 (diabetes mellitus, type 2) Assessment/Plan: As above. (3) Hyperkalemia Assessment/Plan: Possibly from worsened creat again. She may need Kayexelate scheduled. Follow BMP daily. (4) VICKIE (acute kidney injury) Assessment/Plan: Creat again geoff, possibly due to iv and po intake not adequate. Continue present plan. (5) Chronic back pain Qualifiers: Back pain location: low back pain Back pain laterality: unspecified Sciatica presence: with sciatica Assessment/Plan: Pain control adequate AND she skips doses of narcotics when not in pain. (6) Hypothyroidism Assessment/Plan: The Pharmacist was able to research and find out that she had not picked up a prescription for her Levothyroxine 25 mcg, for 3 MONTHS. It was started on admission here. I spoke to patient about this and it is this that could be causing the marked somnolence. - Current Meds Current Meds: Current Medications Generic Name Dose Route Start Last Admin Trade Name Freq PRN Reason Stop Dose Admin Famotidine 20 mg 08/10/18 21:00 08/13/18 08:40 Pepcid PO 20 mg DAILY JARETT Administration Gemfibrozil 600 mg 08/10/18 21:00 08/13/18 08:41 Lopid PO 600 mg BID JARETT Administration Dextrose/Sodium Chloride 1,000 mls @ 100 mls/hr 08/11/18 16:00 08/13/18 16:37 D5.45ns IV 100 mls/hr .Q10H JARETT Administration Levothyroxine Sodium 25 mcg 08/11/18 09:00 08/13/18 08:41 Synthroid PO 25 mcg DAILY JARETT Administration [place] Carbonate 300 mg 08/11/18 09:00 08/13/18 08:41 Lithobid PO 300 mg DAILY JARETT Administration Metoprolol Succinate 25 mg 08/13/18 09:00 08/13/18 08:39 Toprol Xl PO 25 mg DAILY JARETT Administration Morphine Sulfate 30 mg 08/10/18 14:03 08/12/18 19:49 PO 30 mg Q12H PRN Administration Breakthrough Pain Morphine Sulfate 15 mg 08/10/18 14:03 08/11/18 19:15 Ms Ir PO 15 mg BID PRN Administration Breakthrough Pain Nicotine 1 patch 08/10/18 17:59 08/13/18 08:36 Nicoderm TOP 1 patch DAILY JARETT Administration Nystatin 1 applic 08/10/18 21:00 08/13/18 08:43 Nystop TOP 1 applic BID JARETT Administration Oxycodone HCl 10 mg 08/10/18 22:00 08/13/18 14:15 Roxicodone PO 10 mg TID JARETT Administration Polyethylene Glycol 17 gm 08/11/18 09:00 08/13/18 08:36 Miralax PO 17 gm DAILY JARETT Administration Risperidone 1 mg 08/10/18 21:00 08/12/18 20:51 Risperdal PO 1 mg QPM JARETT Administration Senna 8.6 - 17.2 mg 08/11/18 09:00 08/13/18 08:38 Senokot PO 8.6 mg DAILY JARETT Administration Sodium Chloride 10 ml 08/10/18 17:00 08/13/18 17:52 Normal Saline Flush 0.9% IVP Not Given 0100,0900,1700 JARETT Venlafaxine HCl 75 mg 08/10/18 21:00 08/13/18 08:40 Effexor PO 75 mg BID JARETT Administration - Lab Result Fish Bone Diagrams: 08/10/18 11:57 08/13/18 06:37 - Additional Planning My Orders: My Active Orders 08/12/18 17:51 LORazepam [Ativan] 0.5 mg PO BID PRN 08/13/18 09:00 Metoprolol Succinate [Toprol Xl] 25 mg PO DAILY 08/14/18 05:00 BMP - BASIC METABOLIC PANEL [CHEM] DAILYLAB 08/15/18 05:00 BMP - BASIC METABOLIC PANEL [CHEM] DAILYLAB Subjective - Subjective Patient Reports: Resting Comfortably, Fatigue, Other (Feels tired "like when her glu was low".) Objective Vital Signs: Vital Signs - 24 hr 08/12/18 08/12/18 08/13/18 19:52 23:55 04:25 Temperature 36.7 C 36.7 C 36.7 C Heart Rate [ 81 73 68 Brachial] Respiratory 18 18 16 Rate Blood Pressure 164/64 H 148/75 H 137/68 H [Left Brachial artery] O2 Saturation 97 99 96 08/13/18 08/13/18 08/13/18 08:14 11:44 15:58 Temperature 36.5 C 36.6 C 36.6 C Heart Rate [ 71 60 59 L Brachial] Respiratory 16 16 16 Rate Blood Pressure 150/73 H 141/63 H 136/60 H [Left Brachial artery] O2 Saturation 97 98 97 Oxygen O2 Source Room air I&O (Last 24 Hrs): Intake and Output Totals x24h 08/11/18 08/12/18 08/13/18 23:59 23:59 23:59 Intake Total 5205 3949.333 2665 Output Total 1950 1800 250 Balance 3255 2149.333 2415 General: Alert, Oriented x3 HEENT: Mucous membr. moist/pink Neck: Supple, No JVD Neuro: Non Focal Cardiovascular: Regular rate Respiratory: No respiratory distress Abdomen: Soft Extremities: No edema - Results Results: Laboratory Results WBC 9.7 x10^3/uL (4.8-10.8) 08/10/18 11:57 RBC 3.91 10^6/uL (4.20-5.40) L 08/10/18 11:57 Hgb 12.1 g/dL (12.0-16.0) 08/10/18 11:57 Hct 37.5 % (37.0-47.0) 08/10/18 11:57 MCV 96.1 fL (81.0-99.0) 08/10/18 11:57 MCH 31.0 pg (27.0-31.0) 08/10/18 11:57 MCHC 32.2 g/dL (32.0-36.0) 08/10/18 11:57 RDW 14.1 % (12.0-15.0) 08/10/18 11:57 Plt Count 319 10^3/uL (130-450) 08/10/18 11:57 MPV 6.8 fL (7.9-10.8) L 08/10/18 11:57 Neut # (Auto) 7.0 10^3/uL (1.5-6.6) H 08/10/18 11:57 Lymph # (Auto) 1.8 10^3/uL (1.5-3.5) 08/10/18 11:57 [place] # (Auto) 0.7 10^3/uL (0.0-1.0) 08/10/18 11:57 Eos # (Auto) 0.1 10^3/uL (0.0-0.7) 08/10/18 11:57 Baso # (Auto) 0.0 10^3/uL (0.0-0.1) 08/10/18 11:57 Absolute Nucleated RBC 0.00 x10^3/uL 08/10/18 11:57 Nucleated RBC % 0.0 /100WBC 08/10/18 11:57 Sodium 140 mmol/L (135-145) 08/13/18 06:37 Potassium 5.1 mmol/L (3.5-5.0) H 08/13/18 06:37 Chloride 112 mmol/L (101-111) H 08/13/18 06:37 Carbon Dioxide 24 mmol/L (21-32) 08/13/18 06:37 Anion Gap 4.0 (6-13) L 08/13/18 06:37 BUN 20 mg/dL (6-20) 08/13/18 06:37 Creatinine 1.5 mg/dL (0.4-1.0) H 08/13/18 06:37 Estimated GFR (MDRD) 35 (>89) L 08/13/18 06:37 Glucose 79 mg/dL (70-100) 08/13/18 06:37 Glycated Hemoglobin 5.6 % (4.6-6.2) 08/10/18 11:00 Estim Average Glucose 114 (70-100) H 08/10/18 11:00 Calcium 10.0 mg/dL (8.5-10.3) 08/13/18 06:37 Total Bilirubin 0.4 mg/dL (0.2-1.0) 08/10/18 11:51 AST 21 IU/L (10-42) 08/10/18 11:51 ALT 12 IU/L (10-60) 08/10/18 11:51 Alkaline Phosphatase 115 IU/L (42-121) 08/10/18 11:51 Total Protein 7.2 g/dL (6.7-8.2) 08/10/18 11:51 Albumin 3.5 g/dL (3.2-5.5) 08/10/18 11:51 Globulin 3.7 g/dL (2.1-4.2) 08/10/18 11:51 Albumin/Globulin Ratio 0.9 (1.0-2.2) L 08/10/18 11:51 Lipase 44 U/L (22-51) 08/10/18 11:51 TSH 2.94 uIU/mL (0.34-5.60) 08/13/18 06:37 Last Dose Date Not Reportable 08/10/18 11:57 Last Dose Time Not Reportable 08/10/18 11:57 [place] 0.66 mmol/L 08/10/18 11:57 - Procedures Procedures: Procedures COLONOSCOPY (01/09/13)
[2018-08-13] MEDS: risperiDONE 1 MG TABLET PO SCH (21:00)
[2018-08-14] MEDS: DEXTROSE 5%-0.45% NACL 1,000 ML IV SCH (02:18)
[2018-08-14] MEDS: oxyCODONE 5 MG TABLET PO SCH ×3 (06:01→22:51)
[2018-08-14] MEDS ORDERED: LEVOTHYROXINE 100 MCG TABLET ONE (06:05)
[2018-08-14] MEDS ORDERED: LEVOTHYROXINE 100 MCG VIAL IVP ONE ×2 (06:07→07:00)
[2018-08-14 06:24] LABS: CALCIUM 9.4 mg/dL (8.5-10.3); CREATININE 1.5 mg/dL (0.4-1.0)
[2018-08-14] MEDS: SENNA 8.6 MG TABLET PO SCH (08:10)
[2018-08-14] MEDS: VENLAFAXINE 37.5 MG TABLET PO SCH ×2 (08:10→21:27)
[2018-08-14] MEDS: GEMFIBROZIL 600 MG TABLET PO SCH ×2 (08:11→21:27)
[2018-08-14] MEDS: METOPROLOL SUCCINATE 50 MG TABLET PO SCH (08:11)
[2018-08-14] MEDS: FAMOTIDINE 20 MG TABLET PO SCH (08:11)
[2018-08-14] MEDS: LITHIUM ER 300 MG TABLET PO SCH (08:12)
[2018-08-14] MEDS: NICOTINE 21 MG PATCH TOP SCH (08:13)
[2018-08-14] MEDS: SODIUM CHLORIDE FLUSH 0.9% 10 ML SYRINGE IVP SCH ×2 (08:13→15:56)
[2018-08-14] MEDS: POLYETHYLENE GLYCOL 3350 17 GM PACKET PO SCH (08:13)
[2018-08-14] MEDS: NYSTATIN POWDER 15 GM TOP SCH ×2 (08:14→21:28)
--- NOTE | 2018-08-14 14:33 | PROVIDER PROGRESS NOTE ---
Assessment/Plan - Problem List (1) Hypoglycemia Assessment/Plan: Her a.m. glu was still in 90's. Will stop iv D5 and check if her diet alone maintains an adequate glu level. Poss [facility] tomorrow. She requests more help and Social Work indicates she qualifies for Home Health RN and PT, will order. (2) DM type 2 (diabetes mellitus, type 2) Assessment/Plan: As above. Will not use Trulicity or Glimiperide at [facility]. Diabetic election supervisor worked with her and will consider Metformin if creat remains at 1.5, equaling a GFR of 35. Will also advise fingerstick glu checks at least daily or several mornings a week. (3) Acute on chronic kidney failure Assessment/Plan: The creat has not improved any further, despite 3 days of gentle iv hydration. Her DM meds therefore will be dosed for someone with CKD stage 3. (4) Chronic back pain Qualifiers: Back pain location: low back pain Back pain laterality: unspecified Sciatica presence: with sciatica Assessment/Plan: Stable on her home meds. (5) Hypothyroidism Assessment/Plan: Today she received a 100 mcg iv dose, since she was hypothyroid, adding to her somnolence. Tomorrow, will resume her po thyroid pill. (6) Bipolar disorder Assessment/Plan: Stable on home meds (7) Hyperkalemia Assessment/Plan: Resolved - Current Meds Current Meds: Current Medications Generic Name Dose Route Start Last Admin Trade Name Freq PRN Reason Stop Dose Admin Famotidine 20 mg 08/10/18 21:00 08/14/18 08:11 Pepcid PO 20 mg DAILY JARETT Administration Gemfibrozil 600 mg 08/10/18 21:00 08/14/18 08:11 Lopid PO 600 mg BID JARETT Administration [place] Carbonate 300 mg 08/11/18 09:00 08/14/18 08:12 Lithobid PO 300 mg DAILY JARETT Administration Metoprolol Succinate 25 mg 08/13/18 09:00 08/14/18 08:11 Toprol Xl PO 25 mg DAILY JARETT Administration Morphine Sulfate 30 mg 08/10/18 14:03 08/12/18 19:49 PO 30 mg Q12H PRN Administration Breakthrough Pain Morphine Sulfate 15 mg 08/10/18 14:03 08/11/18 19:15 Ms Ir PO 15 mg BID PRN Administration Breakthrough Pain Nicotine 1 patch 08/10/18 17:59 08/14/18 08:13 Nicoderm TOP 1 patch DAILY JARETT Administration Nystatin 1 applic 08/10/18 21:00 08/14/18 08:14 Nystop TOP 1 applic BID JARETT Administration Oxycodone HCl 10 mg 08/10/18 22:00 08/14/18 13:53 Roxicodone PO 10 mg TID JARETT Administration Polyethylene Glycol 17 gm 08/11/18 09:00 08/14/18 08:13 Miralax PO 17 gm DAILY JARETT Administration Risperidone 1 mg 08/10/18 21:00 08/13/18 21:00 Risperdal PO 1 mg QPM JARETT Administration Senna 8.6 - 17.2 mg 08/11/18 09:00 08/14/18 08:10 Senokot PO 8.6 mg DAILY JARETT Administration Sodium Chloride 10 ml 08/10/18 13:54 08/14/18 06:05 Normal Saline Flush 0.9% IVP 10 ml PRN PRN Administration NEEDED PER PROVIDER ORDERS Sodium Chloride 10 ml 08/10/18 17:00 08/14/18 08:13 Normal Saline Flush 0.9% IVP 10 ml 0100,0900,1700 JARETT Administration Venlafaxine HCl 75 mg 08/10/18 21:00 08/14/18 08:10 Effexor PO 75 mg BID JARETT Administration - Lab Result Fish Bone Diagrams: 08/10/18 11:57 08/14/18 05:52 - Additional Planning My Orders: My Active Orders 08/15/18 05:00 BMP - BASIC METABOLIC PANEL [CHEM] DAILYLAB Objective Vital Signs: Vital Signs - 24 hr 08/13/18 08/13/18 08/14/18 15:58 21:00 00:05 Temperature 36.6 C 36.7 C 37.1 C Heart Rate [ 59 L 72 69 Brachial] Respiratory 16 16 18 Rate Blood Pressure 136/60 H 142/69 H [Left Brachial artery] Blood Pressure [Right Brachial artery] Blood Pressure 120/54 L [Right Radial artery] O2 Saturation 97 98 97 08/14/18 08/14/18 08/14/18 05:00 08:44 11:53 Temperature 36.9 C 36.7 C 36.6 C Heart Rate [ 57 L 72 62 Brachial] Respiratory 16 16 18 Rate Blood Pressure 134/52 H [Left Brachial artery] Blood Pressure 175/72 H [Right Brachial artery] Blood Pressure 137/56 H [Right Radial artery] O2 Saturation 96 98 99 Oxygen O2 Source Room air I&O (Last 24 Hrs): Intake and Output Totals x24h 08/12/18 08/13/18 08/14/18 23:59 23:59 23:59 Intake Total 3949.333 3165 2899.333 Output Total 1800 1000 800 Balance 2149.333 2165 2099.333 General: Alert, Oriented x3 HEENT: Mucous membr. moist/pink Neck: Supple Neuro: Non Focal Cardiovascular: Regular rate, No murmurs Respiratory: No respiratory distress Abdomen: Soft, Other (Obese with pannus) Extremities: No edema - Results Results: Laboratory Results WBC 9.7 x10^3/uL (4.8-10.8) 08/10/18 11:57 RBC 3.91 10^6/uL (4.20-5.40) L 08/10/18 11:57 Hgb 12.1 g/dL (12.0-16.0) 08/10/18 11:57 Hct 37.5 % (37.0-47.0) 08/10/18 11:57 MCV 96.1 fL (81.0-99.0) 08/10/18 11:57 MCH 31.0 pg (27.0-31.0) 08/10/18 11:57 MCHC 32.2 g/dL (32.0-36.0) 08/10/18 11:57 RDW 14.1 % (12.0-15.0) 08/10/18 11:57 Plt Count 319 10^3/uL (130-450) 08/10/18 11:57 MPV 6.8 fL (7.9-10.8) L 08/10/18 11:57 Neut # (Auto) 7.0 10^3/uL (1.5-6.6) H 08/10/18 11:57 Lymph # (Auto) 1.8 10^3/uL (1.5-3.5) 08/10/18 11:57 [place] # (Auto) 0.7 10^3/uL (0.0-1.0) 08/10/18 11:57 Eos # (Auto) 0.1 10^3/uL (0.0-0.7) 08/10/18 11:57 Baso # (Auto) 0.0 10^3/uL (0.0-0.1) 08/10/18 11:57 Absolute Nucleated RBC 0.00 x10^3/uL 08/10/18 11:57 Nucleated RBC % 0.0 /100WBC 08/10/18 11:57 Sodium 136 mmol/L (135-145) 08/14/18 05:52 Potassium 4.8 mmol/L (3.5-5.0) 08/14/18 05:52 Chloride 106 mmol/L (101-111) 08/14/18 05:52 Carbon Dioxide 23 mmol/L (21-32) 08/14/18 05:52 Anion Gap 7.0 (6-13) 08/14/18 05:52 BUN 22 mg/dL (6-20) H 08/14/18 05:52 Creatinine 1.5 mg/dL (0.4-1.0) H 08/14/18 05:52 Estimated GFR (MDRD) 35 (>89) L 08/14/18 05:52 Glucose 82 mg/dL (70-100) 08/14/18 05:52 Glycated Hemoglobin 5.6 % (4.6-6.2) 08/10/18 11:00 Estim Average Glucose 114 (70-100) H 08/10/18 11:00 Calcium 9.4 mg/dL (8.5-10.3) 08/14/18 05:52 Total Bilirubin 0.4 mg/dL (0.2-1.0) 08/10/18 11:51 AST 21 IU/L (10-42) 08/10/18 11:51 ALT 12 IU/L (10-60) 08/10/18 11:51 Alkaline Phosphatase 115 IU/L (42-121) 08/10/18 11:51 Total Protein 7.2 g/dL (6.7-8.2) 08/10/18 11:51 Albumin 3.5 g/dL (3.2-5.5) 08/10/18 11:51 Globulin 3.7 g/dL (2.1-4.2) 08/10/18 11:51 Albumin/Globulin Ratio 0.9 (1.0-2.2) L 08/10/18 11:51 Lipase 44 U/L (22-51) 08/10/18 11:51 TSH 2.94 uIU/mL (0.34-5.60) 08/13/18 06:37 Last Dose Date Not Reportable 08/10/18 11:57 Last Dose Time Not Reportable 08/10/18 11:57 Bone Gap 0.66 mmol/L 08/10/18 11:57 - Procedures Procedures: Procedures COLONOSCOPY (01/09/13)
[2018-08-14] MEDS: MORPHINE ER 15 MG TABLET PO PRN (15:55)
[2018-08-14] MEDS: risperiDONE 1 MG TABLET PO SCH (21:28)
[2018-08-15 06:24] LABS: CALCIUM 10.1 mg/dL (8.5-10.3); CREATININE 1.8 mg/dL (0.4-1.0)
[2018-08-15] MEDS: SODIUM CHLORIDE FLUSH 0.9% 10 ML SYRINGE IVP SCH ×2 (06:43→08:09)
[2018-08-15] MEDS: oxyCODONE 5 MG TABLET PO SCH (06:44)
[2018-08-15] MEDS: FAMOTIDINE 20 MG TABLET PO SCH (08:04)
[2018-08-15] MEDS: GEMFIBROZIL 600 MG TABLET PO SCH (08:05)
[2018-08-15] MEDS: POLYETHYLENE GLYCOL 3350 17 GM PACKET PO SCH (08:05)
[2018-08-15] MEDS: LITHIUM ER 300 MG TABLET PO SCH (08:05)
[2018-08-15] MEDS: VENLAFAXINE 37.5 MG TABLET PO SCH (08:06)
[2018-08-15] MEDS: METOPROLOL SUCCINATE 50 MG TABLET PO SCH (08:07)
[2018-08-15] MEDS: NICOTINE 21 MG PATCH TOP SCH (08:08)
[2018-08-15] MEDS: SENNA 8.6 MG TABLET PO SCH (08:09)
[2018-08-15] MEDS: NYSTATIN POWDER 15 GM TOP SCH (08:09)
[2018-08-15 11:21] VITALS: BP 137/61
--- NOTE | 2018-08-15 13:08 | Discharge Plan ---
Discharge Plan Disposition: Home, Self Care Condition: Stable Prescriptions: Levothyroxine Sodium 25 mg PO QDAC #30 tablet Diet: Diabetic Activity Restrictions: Activity as Tolerated Shower Restrictions: No Driving Restrictions: Yes Assistance Devices: Walker Weight Bearing: Full Weight Instruction Topics: Diabetes Carbs Additional Instructions or Follow Up instructions: You were admitted for abnormal low blood glucose level from Trulicity and Glimiperide. You are being discharged with recommendation to STOP using any medications for Diabetes (NO TRULICITY OR GLIMIPERIDE), but stay on your diabetic diet. Resume your other pre-hospital medications. Stay well hydrated, because some of your blood tests showed mild dehydration. Also, a new prescription for your Thyroid medication was sent to your pharmacy, since you haven't picked that up since May 2018, so you will need refills from your PCP after this. You should see a PCP in 1-2 weeks in hospital follow-up. If you have new or worsening symptoms, call your PCP or come to the ER. No Smoking: If you smoke, Please STOP! Call for help. Follow-up with: Fadi Bustos MD [Primary Care Provider] -
[2018-08-16] MEDS ORDERED: LEVOTHYROXINE 25 MCG TABLET PO SCH (07:00)
--- NOTE | 2018-08-18 16:26 | DISCHARGE SUMMARY ---
Physician: Gayle Diaz MD DATE OF ADMISSION: 08/10/2018 DATE OF DISCHARGE: 08/15/2018 HISTORY OF PRESENT ILLNESS: This is a 68-year-old white female, smoker of a pack a day, has a history of mild asthma, type 2 diabetes, history of DVT, on Xarelto, history of bipolar disorder, hypothyroidism, chronic back pain with fusion lower back surgery, and chronic low back pain, which was made in her minimally mobile at home. She presented when she became confused and called 911 herself, EMS arrived and found her to have a blood sugar of 17. She was given D50, and this increased her glucose by fingerstick check to 72. She was brought to the emergency room, where the fingerstick on arrival was again down to 34. She was given oral management plus IV D5 hydration, and was admitted because of hypoglycemia. HOSPITAL COURSE AND DISCHARGE DIAGNOSES 1. Hypoglycemia. The patient is on Trulicity for over a year and also on an oral agent (she did not know her medication names, since she has a caregiver administer them to her). She also stated that her PCP did not require her to do fingerstick checks; therefore, she was not aware of her serum glucose. Her admission A1c was 5.6, indicating very strict glucose control. She reported getting Meals On Wheels with a diabetic diet and did not have anorexia or other reasons for hypoglycemia. There was no source of infection to explain it, either. The hypoglycemia was felt to be from being on the maximum dose of the long acting subq Trulicity, with her oral regimen. Her Trulicity and Glimepiride were discontinued. She was put on an IV of D5W and maintained on this for 4 days, glucose checks were monitored by fingerstick q.2 hours or p.r.n. and daily BMP monitored. Her initial glucose of 32 was only as high as 37 on the first day, and then throughout the hospital course, the glucoses ranged between 71 and 137, despite being on IV D5 and an oral diet. On the final day without D5W IV, she still had fair glucose control, and she was discharged, being told she is now a diet-controlled diabetic, to not use her Glimepiride or Trulicity as they caused the prolonged hypoglycemia. 2. Diabetes type 2. Managed as above. It is not clear why Metformin was not being used, and she did not know the names of her medications to tell me anything about their history or any problems. 3. [id number] kidney failure. The patient's creatinine fluctuated between 1.5 and 1.8 while here. 4. Chronic back pain. Patient is on scheduled narcotics for pain control, and these were continued while here in order to prevent narcotic withdrawal. 5. Hypothyroidism. The patient's medication list that she reported to be taking included Levothyroxine 25 mcg daily; however, our pharmacist confirmed that this was last filled in May 2017 (over a year ago). Her TSH level was 3, and she was therefore put back on her very low dose of Levothyroxine 25 mcg daily, received 1 dose of IV thyroid preparation of 100 mcg. (Of note is that her medication list also includes Xarelto, which she vehemently denies taking any longer, and Flomax, which she also sated she does not use). 6. Bipolar disorder. The patient was kept on her [place], Effexor, and Risperdal while here. 7. Hyperkalemia. This was felt to be from her kidney dysfunction, and electrolytes were monitored daily. She did not require Kayexalate while here. 8. Tobacco use. The patient was placed on a daily Nicotine patch while here. ALLERGIES: NONE. MEDICATIONS AT THE TIME OF DISCHARGE 1. Niacin 500 mg b.i.d. 2. Effexor 75 mg b.i.d. 3. Morphine ER 30 mg b.i.d. p.r.n. 4. Gemfibrozil 600 mg b.i.d. 5. [place] 300 mg daily. 6. Lorazepam 0.5-1 mg b.i.d. p.r.n. anxiety. 7. Polyethylene glycol daily p.r.n. constipation. 8. Ventolin inhaler 2 puffs q.4 hours p.r.n. wheezing. 9. Toprol-XL 50 mg daily. 10. Oxycodone 10 mg t.i.d. p.r.n. pain. 11. Risperdal 1 mg p.o. every evening. 12. Omeprazole 20 mg p.o. daily. CONDITION AT DISCHARGE: Stable. PHYSICAL EXAMINATION VITAL SIGNS: Blood pressure 128/70, heart rate 60-70, in sinus rhythm, afebrile, room air saturation 99%. HEENT: Unremarkable. NECK: No JVD or carotid bruits. CHEST: Clear. HEART: Sounds normal. ABDOMEN: Soft with normal bowel sounds, obese with pannus. EXTREMITIES: No edema. NEUROLOGIC: Grossly intact. CODE STATUS: FULL CODE. FOLLOWUP: Patient was advised to see her PCP in a week for hospital followup and further adjustment of her diabetic management. Time required to complete this entire discharge, chart review, dictation, education with the patient, her daughter, and son-in-law: 60 minutes. cc: Fadi Bustos MD TD: 08/18/2018 15:39 MTDD
== END 2018-08-15 14:57 | disposition home or self-care (01) | DRG 639 ==
LOC: EDBD → ED 11:17 → MS2 13:54
PROVIDERS: ADMIT Internal Medicine; ATTEND Internal Medicine
DX: E11.649 Type 2 diabetes mellitus with hypoglycemia without coma (principal); I10 Essential (primary) hypertension; E78.00 Pure hypercholesterolemia, unspecified; J44.9 Chronic obstructive pulmonary disease, unspecified; Z88.2 Allergy status to sulfonamides; Z88.8 Allergy status to other drugs, medicaments and biological substances; Z96.653 Presence of artificial knee joint, bilateral; Z98.1 Arthrodesis status; E03.9 Hypothyroidism, unspecified; K21.9 Gastro-esophageal reflux disease without esophagitis; R32 Unspecified urinary incontinence; F31.9 Bipolar disorder, unspecified; M19.90 Unspecified osteoarthritis, unspecified site; Z86.718 Personal history of other venous thrombosis and embolism; M54.9 Dorsalgia, unspecified; F17.200 Nicotine dependence, unspecified, uncomplicated; Z79.02 Long term (current) use of antithrombotics/antiplatelets; E11.22 Type 2 diabetes mellitus with diabetic chronic kidney disease; N18.9 Chronic kidney disease, unspecified; N17.9 Acute kidney failure, unspecified; E87.5 Hyperkalemia; T38.3X5A Adverse effect of insulin and oral hypoglycemic [antidiabetic] drugs, initial encounter; T40.605A Adverse effect of unspecified narcotics, initial encounter; Z74.01 Bed confinement status; K59.03 Drug induced constipation; G25.2 Other specified forms of tremor; J45.909 Unspecified asthma, uncomplicated; E66.9 Obesity, unspecified; Z68.33 Body mass index [BMI] 33.0-33.9, adult; G89.29 Other chronic pain; M54.40 Lumbago with sciatica, unspecified side
CPT/HCPCS: 36415; 80048; 80053; 80178; 83036; 83690; 84443; 85025; 97162; 97166; 99284; A9270

== ENCOUNTER 2018-12-15 11:19 | Outpatient (CLI) | payer MEDICARE, MEDICAID ==
[2018-12-15] MEDS ORDERED: IOVERSOL 320 100 ML VIAL IVP ONE (11:51)
[2018-12-15] MEDS ORDERED: IOVERSOL 320 50 ML VIAL ONE (11:54)
[2018-12-15 12:13] LABS: CALCIUM 10.1 mg/dL (8.5-10.3); CREATININE 2.1 mg/dL (0.4-1.0)
--- NOTE | 2018-12-15 20:21 | CT Report ---
Reason: RECURRENT URINARY TRACT INFECTION Procedure Date: 12/15/2018 Accession Number: [id number] / [id number] Procedure: CT - Abdomen/Pelvis WO CPT Code: FULL RESULT: EXAM: CT ABDOMEN AND PELVIS (CT KUB) WITHOUT CONTRAST. EXAM DATE: 12/15/2018 12:49 PM. CLINICAL HISTORY: Recurrent urinary tract infection. The patient reports a history of kidney stones. COMPARISONS: ABDOMEN/PELVIS W/O 06/14/2016 2:31 AM. TECHNIQUE: Routine axial helical CT imaging was performed through the abdomen and pelvis without IV contrast. Reconstructions: Coronal and sagittal. No IV contrast administered in this patient with impaired renal function (GFR 24). In accordance with CT protocol optimization, one or more of the following dose reduction techniques were utilized for this exam: automated exposure control, adjustment of mA and/or KV based on patient size, or use of iterative reconstructive technique. FINDINGS: Lung Bases: Mild right lower lobe bronchiectasis appears similar. Associated streaky, patchy and nodular lower lobe basilar densities are without change, likely representing scarring. Right Kidney/Ureter: No stones, hydronephrosis, or hydroureter. No significant perinephric fat stranding. Approximate 12 mm upper pole hypodensity is without substantial change and consistent with a cyst. There is a probable smaller slightly exophytic nodular focus at the posterior lower pole cortex with very subtle peripheral high density. This may represent a small complex cyst but was not definitely present previously. Ultrasound could be performed for further evaluation. Left Kidney/Ureter: No hydronephrosis, or hydroureter. Mild perinephric stranding is slightly increased. There is a 1.6 cm hypodensity which is without substantial change compared with 2017. It again demonstrates small focus of hyperdensity along its posterior wall consistent with layering milk of calcium versus calcification within its wall. However, the stability is consistent with a benign finding. Upper pole scarring or lobulation is without change. Other Solid Organs: Noncontrast images of the solid organs are grossly unremarkable. Gallbladder/Bile Ducts: Status post cholecystectomy. No joyce ductal dilatation. Peritoneal Cavity: No free fluid, free air or joyce adenopathy. Colonic diverticulosis without evidence of diverticulitis. Normal appendix. Pelvic Organs: No bladder stones or wall thickening. Distended bladder. Noncontrast images of the visualized pelvic organs are unremarkable. Vasculature: Moderate to severe calcifications, without aneurysm. Other: Changes of L4-L5 surgical fusion redemonstrated. Small fat-containing umbilical hernia redemonstrated. IMPRESSION: 1. No urinary tract stones or obstruction. 2. Bilateral renal cysts, without significant change. 3. Small right renal lower pole nodular focus is nonspecific on this exam. Further evaluation by renal ultrasound could be considered, versus dedicated renal CT imaging with and without contrast, if renal function allows. 4. Additional chronic and postoperative findings, as above. RADIA
== END 2018-12-15 11:20 | disposition home or self-care (01) ==
LOC: DI 11:19
PROVIDERS: ATTEND Nurse Practitioner Family
DX: N39.0 Urinary tract infection, site not specified (principal); Q61.02 Congenital multiple renal cysts; N28.89 Other specified disorders of kidney and ureter; K57.30 Diverticulosis of large intestine without perforation or abscess without bleeding; J47.9 Bronchiectasis, uncomplicated; Z90.49 Acquired absence of other specified parts of digestive tract; K42.9 Umbilical hernia without obstruction or gangrene
CPT/HCPCS: 36415; 74176; 80048

== ENCOUNTER 2019-02-22 09:58 | Outpatient (CLI) | payer MEDICARE, MEDICAID | END 2019-02-22 09:59 | disposition short-term general hospital (02) | LOC: EMS 09:58 | PROVIDERS: ATTEND Surgery | DX: R07.9 Chest pain, unspecified (principal); R06.02 Shortness of breath | CPT/HCPCS: A0425; A0429 ==

== ENCOUNTER 2019-06-19 14:07 | Outpatient (CLI) | payer MEDICARE, MEDICAID | END 2019-06-19 14:08 | disposition short-term general hospital (02) | LOC: EMS 14:07 | PROVIDERS: ATTEND Surgery | DX: M54.9 Dorsalgia, unspecified (principal); R26.2 Difficulty in walking, not elsewhere classified | CPT/HCPCS: A0425; A0429 ==

== ENCOUNTER 2019-07-13 20:11 | Outpatient (CLI) | payer MEDICARE, MEDICAID | END 2019-07-13 20:12 | disposition critical access hospital (66) | LOC: EMS 20:11 | PROVIDERS: ATTEND Surgery | DX: R25.1 Tremor, unspecified (principal); R53.1 Weakness; W18.39XA Other fall on same level, initial encounter; Y92.002 Bathroom of unspecified non-institutional (private) residence as the place of occurrence of the external cause | CPT/HCPCS: A0425; A0429 ==

== ENCOUNTER 2019-07-13 20:47 | Inpatient (IN) | payer MEDICARE, MEDICAID ==
--- NOTE | 2019-07-13 22:17 | ED Physician Documentation ---
History of Present Illness - Stated complaint Stated Complaint: WEAKNESS, MUSCLE TREMORS - Chief complaint Chief Complaint: Back Pain - History obtained from History obtained from: Patient (The patient is a 69-year-old female who presents tonight after she slipped and fell on her Left hip pain is complaining of left hip pain she is also complaining of pain all over and weakness all over she is unsure if she hit her head or not, She denies taking anticoagulants reviewing her medical record she is on chronic morphine and chronic oxycodone.) Review of Systems Constitutional: reports: Reviewed and negative Eyes: reports: Reviewed and negative Ears: reports: Reviewed and negative Nose: reports: Reviewed and negative Throat: reports: Reviewed and negative Cardiac: reports: Reviewed and negative Respiratory: reports: Reviewed and negative GI: reports: Reviewed and negative : reports: Reviewed and negative Skin: reports: Reviewed and negative Musculoskeletal: reports: Extremity pain, Joint pain Neurologic: reports: Generalized weakness Psychiatric: reports: Reviewed and negative Endocrine: reports: Reviewed and negative Immunocompromised: reports: Reviewed and negative PD PAST MEDICAL HISTORY - Past Medical History Cardiovascular: Hypertension, High cholesterol, Deep vein thrombosis Respiratory: Asthma, COPD, Shortness of breath Endocrine/Autoimmune: Type 2 diabetes, HyPOthyroidism GI: GERD : Incontinence HEENT: None Psych: Depression, Bipolar disorder Musculoskeletal: Osteoarthritis, Chronic back pain Derm: None - Past Surgical History Past Surgical History: Yes General: EGD, Colonoscopy Ortho: Knee replacement, Spine surgery /[employer]: section HEENT: Tonsil/Adenoidectomy - Present Medications Home Medications: Ambulatory Orders Medication Instructions Recorded Confirmed Metoprolol Succinate [Toprol Xl] 50 mg PO DAILY 10/06/12 09/08/18 Morphine ER 30 mg PO Q12H PRN 10/06/12 09/08/18 LORazepam [Lorazepam] 0.5 - 1 mg PO BID PRN 06/14/16 09/08/18 Omeprazole 20 mg PO QDAC 06/14/16 09/08/18 Venlafaxine HCl 75 mg PO BID 06/14/16 09/08/18 risperiDONE [Risperdal] 1 mg PO QPM 06/14/16 09/08/18 Albuterol Sulf [Ventolin Hfa 2 puffs INH Q4H PRN 08/10/18 09/08/18 Inhaler] Oxycodone HCl 10 mg PO TID PRN 08/10/18 09/08/18 Polyethylene Glycol 3350 17 gm PO DAILY PRN 08/10/18 09/08/18 [Laxaclear] gemfibroziL [Gemfibrozil] 600 mg PO BID 08/10/18 09/08/18 [place] Carbonate 300 mg PO DAILY 08/13/18 09/08/18 Levothyroxine Sodium 25 mg PO QDAC #30 tablet 08/15/18 09/08/18 raNITIdine [Zantac] 150 mg PO PRN PRN 09/08/18 09/08/18 - Allergies Allergies/Adverse Reactions: Allergies Allergy/AdvReac Type Severity Reaction Status Date / Time NSAIDS (Non-Steroidal Allergy Mild Hives Verified 08/10/18 11:22 Anti-Inflamma Sulfa (Sulfonamide AdvReac Mild Rash Verified 01/12/18 13:51 Antibiotics) - Social History Does the pt smoke?: Yes Smoking Status: Current every day smoker Does the pt drink ETOH?: No Does the pt have substance abuse?: No - Immunizations Immunizations are current?: Yes Immunizations: TDAP >10years/unknown - POLST Patient has POLST: No PD ED PE NORMAL - Vitals Vital signs reviewed: Yes - General General: Alert and oriented X 3, No acute distress, Well developed/nourished - HEENT HEENT: Atraumatic, PERRL, Moist mucous membranes, Pharynx benign - Neck Neck: Supple, no meningeal sign, No JVD - Cardiac Cardiac: RRR, No murmur, Strong equal pulses - Respiratory Respiratory: No respiratory distress, Clear bilaterally - Abdomen Abdomen: Normal bowel sounds, Soft, Non tender, Non distended, No organomegaly - Back Back: No CVA TTP, No spinal TTP - Derm Derm: Normal color, Warm and dry, No rash - Extremities Extremities: No deformity, No edema, Other (There is diffuse tenderness to the left lower extremity throughout there is no leg length discrepancy she is able to stand and bear weight on both lower extremities.Her compartments are soft throughout she is neurovascular intact throughout.) - Neuro Neuro: Alert and oriented X 3 - Psych Psych: Normal mood, Normal affect Results - Vitals Vitals: Vital Signs - 24 hr 07/13/19 07/14/19 20:54 00:51 Temperature 36.9 C Heart Rate 82 83 Respiratory 20 18 Rate Blood Pressure 170/97 H 179/77 H O2 Saturation 93 97 Oxygen O2 Source [Without Activity] Room air O2 Source Room air - Labs Labs: Laboratory Tests 07/14/19 07/14/19 07/14/19 00:05 00:10 00:10 WBC 12.6 H RBC 4.28 Hgb 13.0 Hct 42.1 MCV 98.4 MCH 30.4 MCHC 30.9 L RDW 13.8 Plt Count 330 MPV 10.5 Neut # (Auto) 10.6 H Lymph # (Auto) 1.0 L [place] # (Auto) 0.6 Eos # (Auto) 0.2 Baso # (Auto) 0.1 Absolute Nucleated RBC 0.00 Nucleated RBC % 0.0 Sodium 140 Potassium 4.2 Chloride 103 Carbon Dioxide 23 Anion Gap 14.0 H BUN 39 H Creatinine 2.9 H Estimated GFR (MDRD) 16 L Glucose 100 Calcium 9.9 Total Creatine Kinase 209 Troponin I High Sens Urine Color YELLOW Urine Clarity CLOUDY Urine pH 6.0 Ur Specific [place] 1.015 Urine Protein 30 H Urine Glucose (UA) NEGATIVE Urine Ketones NEGATIVE Urine Occult Blood SMALL H Urine Nitrite NEGATIVE Urine Bilirubin NEGATIVE Urine Urobilinogen 0.2 (NORMAL) Ur Leukocyte Esterase LARGE H Urine RBC 0-5 Urine WBC >25 H Ur Squamous Epith Cells NONE SEEN Urine Bacteria Few Ur Microscopic Review INDICATED Urine Culture Comments INDICATED Ethyl Alcohol < 5.0 07/14/19 00:10 WBC RBC Hgb Hct MCV MCH MCHC RDW Plt Count MPV Neut # (Auto) Lymph # (Auto) [place] # (Auto) Eos # (Auto) Baso # (Auto) Absolute Nucleated RBC Nucleated RBC % Sodium Potassium Chloride Carbon Dioxide Anion Gap BUN Creatinine Estimated GFR (MDRD) Glucose Calcium Total Creatine Kinase Troponin I High Sens 13.0 Urine Color Urine Clarity Urine pH Ur Specific [place] Urine Protein Urine Glucose (UA) Urine Ketones Urine Occult Blood Urine Nitrite Urine Bilirubin Urine Urobilinogen Ur Leukocyte Esterase Urine RBC Urine WBC Ur Squamous Epith Cells Urine Bacteria Ur Microscopic Review Urine Culture Comments Ethyl Alcohol PD MEDICAL DECISION MAKING - ED course Complexity details: considered differential (Hip fracture, ACS, renal failure, acute metabolic derangement, urinary tract infection, pneumonia) - Consults Consults: Discussed case with (dr. wong. will see patient. ) - Critical Care Time(min): 30 Time Includes: Direct patient care, Review records, Reassess patient, Document care, Coordinate care, Medical consult, See progress note Data interpretation: Labs, Pulse ox, CXR, Prior EKG Procedures included in critical care time: Peripheral IV Procedures excluded from critical care time: EKG Departure - Departure Disposition: ED Place in Observation Clinical Impression: Weakness, Left hip pain, Acute kidney injury Renal failure Qualifiers: Renal failure chronicity: acute Acute renal failure type: unspecified Qualified Code(s): N17.9 - Acute kidney failure, unspecified Discharge Date/Time: 07/14/19 02:15
[2019-07-13] MEDS ORDERED: SODIUM CHLORIDE 0.9% 1,000 ML IV ONE (22:20)
--- NOTE | 2019-07-13 23:23 | XRAY Report ---
Reason: weakness Procedure Date: 07/13/2019 Accession Number: [id number] / [id number] Procedure: XR - Chest 1 View X-Ray CPT Code: 50377 Final Report FULL RESULT: EXAM: CHEST RADIOGRAPHY EXAM DATE: 07/13/2019 11:07 PM. CLINICAL HISTORY: Weakness. COMPARISON: CHEST 2 VIEW 07/05/2017 10:48 AM CHEST 2 VIEW PA/LAT 03/02/2015 12:12 PM 02/03/2013 10:53 AM. TECHNIQUE: 1 view. FINDINGS: Lungs/Pleura: Small lung volumes. No significant consolidation, effusion, or definite pneumothorax. Mediastinum: Cardiac silhouette is within normal limits when accounting for lung volumes and technique. Other: None. IMPRESSION: Small lung volumes without acute cardiopulmonary abnormality. RADIA
--- NOTE | 2019-07-13 23:28 | XRAY Report ---
Reason: fall left hip pain Procedure Date: 07/13/2019 Accession Number: [id number] / [id number] Procedure: XR - Hip w/Pelvis 2-3V LT CPT Code: Final Report FULL RESULT: EXAM: LEFT HIP RADIOGRAPHY EXAM DATE: 07/13/2019 11:07 PM. CLINICAL HISTORY: Fall left hip pain. COMPARISON: PELVIS 1 VIEW 01/05/2017 3:55 PM. TECHNIQUE: 2 views. FINDINGS: Bones: No acute displaced fractures or suspicious bony lesion. However, bones are at least moderately osteopenic. This reduces exam sensitivity and specificity for detection of subtle bony lesions and/or fractures. Joints: No dislocation. There is mild bilateral SI joint degenerative change and hip joint degenerative change. Soft Tissues: No significant soft tissue swelling. IMPRESSION: Stable appearance. No acute osseous abnormality demonstrated. However, bones are at least moderately osteopenic. This reduces exam sensitivity and specificity for detection of subtle bony lesions and/or fractures. If the patient is unable to bear weight, further assessment could be considered with MRI. RADIA
--- NOTE | 2019-07-13 23:33 | CT Report ---
Reason: fall Procedure Date: 07/13/2019 Accession Number: [id number] / [id number] Procedure: CT - HEAD WO CPT Code: Final Report FULL RESULT: EXAM: CT HEAD EXAM DATE: 07/13/2019 10:54 PM. CLINICAL HISTORY: Fall. COMPARISON: HEAD W/O 06/21/2017 4:23 AM. TECHNIQUE: Multiaxial CT images were obtained from the foramen magnum to the vertex. Reformats: Sagittal and coronal. IV contrast: None. In accordance with CT protocol optimization, one or more of the following dose reduction techniques were utilized for this exam: automated exposure control, adjustment of mA and/or KV based on patient size, or use of iterative reconstructive technique. FINDINGS: FINDINGS: Parenchyma: No acute intracranial hemorrhage or large cortical infarct. No intra-axial mass within the confines of a non-contrast exam. No midline shift. There is moderate chronic micro-vascular ischemic white matter change. Extraaxial Spaces: No abnormal extra-axial collections demonstrated. Ventricles and sulci: Ventricles and sulci are proportional. Sinuses: Visualized paranasal sinuses are without air-fluid level. No evident mastoid fluid. Orbits: Without significant abnormality. Bones: No evidence of fracture or calvarial defect. Other: None. IMPRESSION: Moderate chronic macrovascular ischemic white matter change. No CT evidence of an acute intracranial abnormality. If there is clinical suspicion of an acute infarct, consider MRI since it is more sensitive than CT. RADIA
[2019-07-14 00:13] LABS: BILIRUBIN,URINE NEGATIVE (NEGATIVE); GLUCOSE, URINE (UA) NEGATIVE (NEGATIVE); KETONES,URINE (UA) NEGATIVE (NEGATIVE); LEUKOCYTE ESTERASE, URINE LARGE (NEGATIVE); NITRITE,URINE NEGATIVE (NEGATIVE); OCCULT BLOOD,URINE SMALL (NEGATIVE); PROTEIN,URINE 30 mg/dL (NEGATIVE); UROBILINOGEN,URINE 0.2 (NORMAL) E.U./dL (NORMAL)
[2019-07-14 00:14] LABS: CLARITY,URINE CLOUDY (CLEAR)
[2019-07-14 00:19] LABS: BACTERIA,URINE Few /HPF (None Seen); RBC,URINE 0-5 /HPF (0-5); SQUAMOUS EPITHELIAL CELL,UR NONE SEEN (<= Few)
[2019-07-14 00:19] LABS: BASOPHILS # (AUTO) 0.1 10^3/uL (0.0-0.1); BASOPHILS % (AUTO) 0.5 %; EOSINOPHILS # (AUTO) 0.2 10^3/uL (0.0-0.7); EOSINOPHILS % (AUTO) 1.8 %; MEAN CORPUSCULAR HEMOGLOBIN 30.4 pg (27.0-31.0); MEAN CORPUSCULAR HGB CONC 30.9 g/dL (32.0-36.0); MEAN CORPUSCULAR VOLUME 98.4 fL (81.0-99.0); MEAN PLATELET VOLUME 10.5 fL (7.9-10.8); MONOCYTES # (AUTO) 0.6 10^3/uL (0.0-1.0); NEUTROPHILS # (AUTO) 10.6 10^3/uL (1.5-6.6); NEUTROPHILS % (AUTO) 84.2 %; PLT - PLATELET COUNT 330 10^3/uL (130-450); RED BLOOD COUNT 4.28 10^6/uL (4.20-5.40); RED CELL DISTRIBUTION WIDTH 13.8 % (12.0-15.0); WHITE BLOOD COUNT 12.6 x10^3/uL (4.8-10.8)
[2019-07-14 00:29] LABS: BUN - BLOOD UREA NITROGEN 39 mg/dL (6-20); CALCIUM 9.9 mg/dL (8.5-10.3); CARBON DIOXIDE - CO2 23 mmol/L (21-32); CHLORIDE 103 mmol/L (101-111); CK- CREATINE KINASE 209 IU/L (22-269); CREATININE 2.9 mg/dL (0.4-1.0); GLUCOSE 100 mg/dL (70-100); SODIUM 140 mmol/L (135-145)
[2019-07-14] MEDS ORDERED: SODIUM CHLORIDE 0.9% 1,000 ML IV ONE (01:26)
[2019-07-14] MEDS ORDERED: SODIUM CHLORIDE FLUSH 0.9% 10 ML SYRINGE IVP PRN (01:37)
--- NOTE | 2019-07-14 01:43 | HISTORY & PHYSICAL EXAMINATION ---
Chief Complaint - Chief Complaint Chief Complaint: mechanical fall History of Present Illness - Admitted From Admitted From:: [facility] - History Obtained From Records Reviewed: yes History obtained from: patient - History of Present Illness HPI Comment/Other: Patient is a 69 y/o female who presented from home via EMS after a mechanical fall. She slipped and fell in the bathroom. She did not hit her head or black out. She normally gets around using a walker. At the time of the fall, the walker was on the side. She was not actively using it. Work up in the ED included a BMP which showed a Creatinine of 2.9. She was presented for admission for acute kidney injury. She has dry oral mucosa and reports that she has not been drinking much fluids. She lives with her . They have a caregiver who comes in for 4 hours a day, 6 days of the week and helps with things like making meals and setting their pills. She denies chest pain, dyspnea, abdominal pain, nausea, vomiting, fever or chills. She complains of back and hip pain. She states that she has been feeling weird for the past 2 weeks but would not explain any further. She is very emotional and tearful. History - Past Medical History Cardiovascular: reports: Hypertension, High cholesterol, Deep vein thrombosis Respiratory: reports: Asthma, COPD, Shortness of breath Endocrine/Autoimmune: reports: Type 2 diabetes, HyPOthyroidism GI: reports: GERD : reports: Incontinence HEENT: reports: None Psych: reports: Depression, Bipolar disorder Musculoskeletal: reports: Osteoarthritis, Chronic back pain Derm: reports: None MRSA Hx?: No - Past Surgical History General: reports: EGD, Colonoscopy Ortho: reports: Knee replacement, Spine surgery /SHROUDMAN: reports: section HEENT: reports: Tonsil/Adenoidectomy - Family & Social History Family History: Mother: CAD, Father: CAD Living arrangement: At home Living Situation: With spouse/s.o. Social History Notes: She smokes 1ppd. Uses CBD cannabis oil sublingual. She does not drink alcohol - POLST Patient has POLST: No Meds/Allgy - Home Medications Home Medications: Ambulatory Orders Medication Instructions Recorded Confirmed Metoprolol Succinate [Toprol Xl] 50 mg PO DAILY 10/06/12 09/08/18 Morphine ER 30 mg PO Q12H PRN 10/06/12 09/08/18 LORazepam [Lorazepam] 0.5 - 1 mg PO BID PRN 06/14/16 09/08/18 Omeprazole 20 mg PO QDAC 06/14/16 09/08/18 Venlafaxine HCl 75 mg PO BID 06/14/16 09/08/18 risperiDONE [Risperdal] 1 mg PO QPM 06/14/16 09/08/18 Albuterol Sulf [Ventolin Hfa 2 puffs INH Q4H PRN 08/10/18 09/08/18 Inhaler] Oxycodone HCl 10 mg PO TID PRN 08/10/18 09/08/18 Polyethylene Glycol 3350 17 gm PO DAILY PRN 08/10/18 09/08/18 [Laxaclear] gemfibroziL [Gemfibrozil] 600 mg PO BID 08/10/18 09/08/18 [place] Carbonate 300 mg PO DAILY 08/13/18 09/08/18 Levothyroxine Sodium 25 mg PO QDAC #30 tablet 08/15/18 09/08/18 raNITIdine [Zantac] 150 mg PO PRN PRN 09/08/18 09/08/18 - Allergies Allergies/Adverse Reactions: Allergies Allergy/AdvReac Type Severity Reaction Status Date / Time NSAIDS (Non-Steroidal Allergy Mild Hives Verified 08/10/18 11:22 Anti-Inflamma Sulfa (Sulfonamide AdvReac Mild Rash Verified 01/12/18 13:51 Antibiotics) Review of Systems - Constitutional Constitutional: reports: Weakness. denies: Fever, Chills - Eyes Eyes: denies: Pain, Vision loss - Ears, Nose & Throat Ears, Nose & Throat: denies: Vertigo, Sore throat - Cardiovascular Cariovascular: denies: Edema, Syncope, Exertional dyspnea - Respiratory Respiratory: denies: Cough, Wheezing, Orthopnea, SOB at rest - Gastrointestinal Gastrointestinal: denies: Abdominal pain, Abdominal distention, Constipation, Diarrhea, Nausea, Vomiting - Genitourinary Genitourinary: denies: Dysuria, Frequency, Urgency, Hematuria - Musculoskeletal Musculoskeletal: reports: Back pain - Integumentary Integumentary: reports: Dryness. denies: Rash, Pruritis, Lesions - Neurological Neurological: reports: General weakness. denies: Headache, Dizziness - Psychiatric Psychiatric: reports: Depression. denies: Anxiety - Endocrine Endocrine: denies: Polyuria, Polydypsia - Hematologic/Lymphatic Hematologic/Lymphatic: reports: Bruising Prior Level of Functionality: She gets around the house with a walker. She lives with her husban. They have a adult care provider who comes to their house 6 days a week for 4 hours each day. Exam - Vital Signs Vital Signs: Vital Signs x48h Temp Pulse Resp BP Pulse Ox 07/14/19 00:51 83 18 179/77 H 97 07/13/19 20:54 36.9 C 82 20 170/97 H 93 - Physical Exam General Appearance: positive: Alert, Other (Tearful) Eyes Bilateral: positive: PERRL, EOMI ENT: positive: Dry mucous membranes Neck: positive: No JVD, Trachea midline Respiratory: positive: Chest non-tender, No respiratory distress, Breath sounds nml. negative: Wheezes, Rales, Rhonchi Cardiovascular: positive: Regular rate & rhythm Abdomen: positive: Non-tender, No organomegaly, Nml bowel sounds, No distention. negative: Guarding, Rebound Back: positive: Nml inspection Skin: positive: Dry, Pallor, Other (bruising). negative: Color nml Extremities: positive: No pedal edema Neurologic/Psychiatric: positive: Oriented x3, Depressed mood/affect Conclusion/Plan - Problem List (1) VICKIE (acute kidney injury) Conclusion/Plan: Likely multifactorial 2/2 Dehydration and ?UTI Will give a 500ml normal saline bolus, then IV fluids at 125ml/hr Will start rocephin Urine cultures pending Anticipate improvement in renal function (2) UTI (urinary tract infection) Conclusion/Plan: Urine cultures pending Will start Rocephin Qualifiers: Urinary tract infection type: acute cystitis Hematuria presence: without hematuria Qualified Code(s): N30.00 - Acute cystitis without hematuria (3) Hypertension Conclusion/Plan: Continue metoprolol (4) Hypothyroidism Conclusion/Plan: On synthroid (5) DM type 2 (diabetes mellitus, type 2) Conclusion/Plan: Accu check qAC and HS SSI. Hold glimepiride (6) Bipolar disorder Conclusion/Plan: On lithium and risperidone (7) Hyperlipidemia Conclusion/Plan: On gemfibrozil (8) Chronic back pain Conclusion/Plan: Patient on oxycodone and morphine at home. Will order oxycodone for pain If back pain appears worse today, consider re-imaging with CT scan Qualifiers: Back pain location: low back pain Back pain laterality: unspecified S ciatica presence: with sciatica (9) Hx of deep venous thrombosis Conclusion/Plan: Patient no longer take xarelto. SCD's - Lab Results Fish Bones: 07/14/19 06:16 07/14/19 06:16 Core Measures - Anticipated LOS I expect patient to be DC'd or transferred within 96 hours.: Yes - DVT/VTE - Prophylaxis VTE/DVT Device ordered at admit?: Yes
[2019-07-14] MEDS ORDERED: SODIUM CHLORIDE 0.9% 500 ML IV ONE (02:42)
[2019-07-14] MEDS: cefTRIAXone 2 GM in SODIUM CHLORIDE 0.9% MINIBAG 100 ML IV SCH ×2 (03:31→09:15)
[2019-07-14] MEDS: ACETAMINOPHEN 325 MG TABLET PO PRN (03:35)
[2019-07-14] MEDS: SODIUM CHLORIDE 0.9% 1,000 ML IV SCH ×3 (03:43→19:03)
[2019-07-14 06:28] LABS: BASOPHILS % (AUTO) 0.4 %; EOSINOPHILS # (AUTO) 0.2 10^3/uL (0.0-0.7); EOSINOPHILS % (AUTO) 1.9 %; HGB - HEMOGLOBIN 11.5 g/dL (12.0-16.0); LYMPHOCYTES # (AUTO) 1.1 10^3/uL (1.5-3.5); LYMPHOCYTES % (AUTO) 10.2 %; MEAN CORPUSCULAR HEMOGLOBIN 29.8 pg (27.0-31.0); MEAN CORPUSCULAR HGB CONC 30.7 g/dL (32.0-36.0); MEAN CORPUSCULAR VOLUME 97.2 fL (81.0-99.0); MEAN PLATELET VOLUME 10.5 fL (7.9-10.8); MONOCYTES # (AUTO) 0.7 10^3/uL (0.0-1.0); MONOCYTES % (AUTO) 6.9 %; NEUTROPHILS # (AUTO) 8.3 10^3/uL (1.5-6.6); NEUTROPHILS % (AUTO) 80.2 %; PLT - PLATELET COUNT 275 10^3/uL (130-450); RED BLOOD COUNT 3.86 10^6/uL (4.20-5.40); RED CELL DISTRIBUTION WIDTH 13.9 % (12.0-15.0); WHITE BLOOD COUNT 10.4 x10^3/uL (4.8-10.8)
[2019-07-14 06:33] LABS: CALCIUM 9.2 mg/dL (8.5-10.3); CREATININE 2.6 mg/dL (0.4-1.0)
[2019-07-14] MEDS: PANTOPRAZOLE 40 MG TABLET PO SCH (06:59)
[2019-07-14] MEDS: oxyCODONE 5 MG TABLET PO PRN (07:00)
[2019-07-14 07:24] LABS: LITHIUM 0.99 mmol/L
[2019-07-14] MEDS: INSULIN ASPART 300 UNIT/3 ML PEN SUBQ SCH ×4 (08:39→20:43)
[2019-07-14] MEDS ORDERED: ALBUTEROL NEB 2.5 MG/3 ML INH PRN (09:10)
[2019-07-14] MEDS: SODIUM CHLORIDE FLUSH 0.9% 10 ML SYRINGE IVP SCH ×2 (09:17→19:04)
[2019-07-14] MEDS: NICOTINE 14 MG PATCH TOP SCH (09:17)
--- NOTE | 2019-07-14 11:20 | PHARMACY PROGRESS NOTE ---
- Best Possible Medication History Admit Date and Time: 07/14/19 0734 Processed by: Pharmacy Medication History completed: Yes Patient Interview: Completed Secondary Source(s): Physician records, Pharmacy records, Insurance records As the person ultimately responsible for medication therapy, providers are able to order a medication from an existing home medication list in [facility] via the "Reconcile Routine" prior to Confirmation of that medication by clerical support. Such practice is discouraged except when the physician, in their clinical judgment, deems that a medical need exists for a medication without regard to previous use.
[2019-07-14] MEDS: VENLAFAXINE 37.5 MG TABLET PO SCH ×2 (12:35→21:13)
[2019-07-14] MEDS: LITHIUM ER 300 MG TABLET PO SCH (12:35)
[2019-07-14] MEDS: LORazepam 0.5 MG TABLET PO PRN (12:36)
[2019-07-14] MEDS ORDERED: HALOPERIDOL 5 MG/ML VIAL IVP ONE (12:57)
[2019-07-14] MEDS: METOPROLOL SUCCINATE 50 MG TABLET PO SCH (13:13)
[2019-07-14] MEDS: risperiDONE 1 MG TABLET PO SCH (21:13)
[2019-07-14] MEDS: HEPARIN 5,000 UNIT/ML VIAL SUBQ SCH (21:16)
[2019-07-15] MEDS: MORPHINE SULFATE ER 30 MG TABLET PO PRN ×2 (00:24→12:46)
[2019-07-15] MEDS: SODIUM CHLORIDE FLUSH 0.9% 10 ML SYRINGE IVP SCH ×3 (00:25→17:14)
[2019-07-15] MEDS: SODIUM CHLORIDE 0.9% 1,000 ML IV SCH ×2 (02:40→10:56)
[2019-07-15] MEDS: oxyCODONE 5 MG TABLET PO PRN ×3 (04:56→17:13)
[2019-07-15 05:34] LABS: BASOPHILS % (AUTO) 0.5 %; EOSINOPHILS # (AUTO) 0.2 10^3/uL (0.0-0.7); EOSINOPHILS % (AUTO) 2.6 %; LYMPHOCYTES # (AUTO) 0.7 10^3/uL (1.5-3.5); LYMPHOCYTES % (AUTO) 11.1 %; MEAN CORPUSCULAR HEMOGLOBIN 30.3 pg (27.0-31.0); MEAN CORPUSCULAR HGB CONC 30.1 g/dL (32.0-36.0); MEAN CORPUSCULAR VOLUME 100.6 fL (81.0-99.0); MEAN PLATELET VOLUME 10.7 fL (7.9-10.8); MONOCYTES # (AUTO) 0.4 10^3/uL (0.0-1.0); MONOCYTES % (AUTO) 6.3 %; NEUTROPHILS # (AUTO) 5.2 10^3/uL (1.5-6.6); NEUTROPHILS % (AUTO) 79.2 %; PLT - PLATELET COUNT 246 10^3/uL (130-450); RED BLOOD COUNT 3.63 10^6/uL (4.20-5.40); RED CELL DISTRIBUTION WIDTH 13.6 % (12.0-15.0); WHITE BLOOD COUNT 6.6 x10^3/uL (4.8-10.8)
[2019-07-15 05:46] LABS: CALCIUM 9.1 mg/dL (8.5-10.3)
[2019-07-15] MEDS: PANTOPRAZOLE 40 MG TABLET PO SCH (06:12)
[2019-07-15] MEDS: LEVOTHYROXINE 25 MCG TABLET PO SCH (06:12)
[2019-07-15] MEDS: INSULIN ASPART 300 UNIT/3 ML PEN SUBQ SCH (08:29)
[2019-07-15] MEDS: LITHIUM ER 300 MG TABLET PO SCH (08:55)
[2019-07-15] MEDS: VENLAFAXINE 37.5 MG TABLET PO SCH ×2 (08:55→20:27)
[2019-07-15] MEDS: NICOTINE 14 MG PATCH TOP SCH (08:56)
[2019-07-15] MEDS: METOPROLOL SUCCINATE 50 MG TABLET PO SCH (08:56)
[2019-07-15] MEDS: cefTRIAXone 2 GM in SODIUM CHLORIDE 0.9% MINIBAG 100 ML IV SCH (08:57)
[2019-07-15] MEDS: HEPARIN 5,000 UNIT/ML VIAL SUBQ SCH (08:58)
[2019-07-15 10:35] LABS: LITHIUM 0.75 mmol/L
[2019-07-15] MEDS: LORazepam 0.5 MG TABLET PO PRN (12:46)
[2019-07-15] MEDS: DEXTROSE 5%-0.45% NACL 1,000 ML IV SCH (13:33)
--- NOTE | 2019-07-15 16:41 | PROVIDER PROGRESS NOTE ---
Subjective - Prog Note Date Prog Note Date: 07/15/19 Prog Note Time: 16:36 - Subjective Pt reports feeling: Improved Subjective: Dunia worries about her shingles and flu vaccine and if it might be covered by insurance. She denies chest pain, nausea, vomiting, shortness of breath, or a rash. She notes that since her fall, she remembers what happened, which is that her feet became very weak, and she stumbled due to weakness. She worries about her if she goes to rehab for a short rehab stay. Current Medications - Current Medications Current Medications: Active Medications: Acetaminophen (Tylenol) 650 mg PO Q6HR PRN Albuterol 2.5 mg INH RTQ4H PRN Enoxaparin Sodium (Lovenox) 40 mg SUBQ BID [facility] Ceftriaxone Sodium 2 gm/ (Sodium Chloride) 100 mls @ 200 mls/hr IV DAILY [facility] Dextrose/Sodium Chloride (D5.45ns) 1,000 mls @ 75 mls/hr IV .[id number] [facility] Levothyroxine Sodium (Synthroid) 50 mcg PO QDAC [facility] [place] Carbonate (Lithobid) 300 mg PO DAILY [facility] Lorazepam (Ativan) 0.5 mg PO BID PRN Metoprolol Succinate (Toprol Xl) 50 mg PO DAILY [facility] Morphine Sulfate (Ms Contin) 30 mg PO BID PRN Nicotine (Nicoderm) 1 patch TOP DAILY [facility] Oxycodone HCl (Roxicodone) 5 mg PO Q4HR PRN Oxycodone HCl (Roxicodone) 10 mg PO TID PRN Pantoprazole Sodium (Protonix) 40 mg PO QDAC [facility] Risperidone (Risperdal) 1 mg PO QPM [facility] Venlafaxine HCl (Effexor) 75 mg PO BID [facility] HOME meds: Metoprolol Succinate [Toprol Xl] 50 mg PO DAILY 10/06/12 LORazepam [Lorazepam] 0.5 mg PO BID PRN 06/14/16 Omeprazole 20 mg PO QDAC 06/14/16 risperiDONE [Risperdal] 1 mg PO QPM 06/14/16 Albuterol Sulf [Ventolin Hfa Inhaler] 2 puffs INH Q4H PRN 08/10/18 Oxycodone HCl 10 mg PO TID PRN 08/10/18 Polyethylene Glycol 3350 [Laxaclear] 17 gm PO DAILY PRN 08/10/18 gemfibroziL [Gemfibrozil] 600 mg PO BID 08/10/18 [place] Carbonate 300 mg PO DAILY 08/13/18 Cimetidine 800 mg PO DAILY PRN 07/14/19 Gabapentin 100 mg PO QPM 07/14/19 Levothyroxine Sodium 50 mcg PO QDAC 07/14/19 Morphine Sulfate [Morphine Sulfate ER] 30 mg PO BID PRN 07/14/19 Venlafaxine HCl 75 mg PO BID 07/14/19 Objective - Vital Signs/Intake & Output Reviewed Vital Signs: Yes Vital Signs: Vital Signs x48h Temp Pulse Pulse Resp BP BP Pulse Ox 07/15/19 16:00 36.3 C L 54 L 22 138/53 H 98 07/15/19 14:25 118/90 H 07/15/19 10:15 60 16 Intake & Output: Intake & Output 07/12/19 07/13/19 07/14/19 07/15/19 23:59 23:59 23:59 23:59 Intake Total 4504.583 4356.833 Output Total 2050 1250 Balance 2454.583 3106.833 - Objective General Appearance: positive: Alert, Moderate distress, Anxious Eyes Bilateral: positive: PERRL Eyes: OU Conjunctivae pale ENT: positive: Pharyngeal erythema, Dry mucous membranes Neck: positive: Thyroid nml, Trachea midline Respiratory: positive: Chest non-tender, No respiratory distress, Other (diminished with scattered crackles throughout, bilaterally) Cardiovascular: positive: Regular rate & rhythm, No gallop, Tachycardia, Systolic murmur Peripheral Pulses: 1+ Radial (R), 1+ Radial (L) Abdomen: positive: Non-tender, Nml bowel sounds, Other (rounded, soft) Back: positive: Nml inspection Skin: positive: No rash, Warm, Dry, Other (pale) Extremities: positive: Non-tender, Pedal edema, Joint swelling Neurologic/Psychiatric: positive: Disoriented to time, Weakness, Sensory loss, Slurred/abnml speech, Depressed mood/affect Reflexes: Bicep (R): 2+, Bicep (L): 2+ - Lab Results Fish Bones: 07/15/19 05:10 07/15/19 05:10 Other Labs: Lab Results x24hrs 07/15/19 07/15/19 07/15/19 Range/Units 09:25 05:10 05:10 WBC (4.8-10.8) x10^3/uL RBC (4.20-5.40) 10^6/uL Hgb (12.0-16.0) g/dL Hct (37.0-47.0) % MCV (81.0-99.0) fL MCH (27.0-31.0) pg MCHC (32.0-36.0) g/dL RDW (12.0-15.0) % Plt Count (130-450) 10^3/uL MPV (7.9-10.8) fL Neut # (Auto) (1.5-6.6) 10^3/uL Lymph # (Auto) (1.5-3.5) 10^3/uL [place] # (Auto) (0.0-1.0) 10^3/uL Eos # (Auto) (0.0-0.7) 10^3/uL Baso # (Auto) (0.0-0.1) 10^3/uL Absolute Nucleated RBC x10^3/uL Nucleated RBC % /100WBC Sodium 143 (135-145) mmol/L Potassium 3.4 L (3.5-5.0) mmol/L Chloride 113 H (101-111) mmol/L Carbon Dioxide 22 (21-32) mmol/L Anion Gap 8.0 (6-13) BUN 25 H (6-20) mg/dL Creatinine 2.0 H (0.4-1.0) mg/dL Estimated GFR (MDRD) 25 L (>89) Glucose 93 (70-100) mg/dL Calcium 9.1 (8.5-10.3) mg/dL TSH 2.31 (0.34-5.60) uIU/mL Last Dose Date 07/15/19 Last Dose Time 0855 [place] 0.75 mmol/L 07/15/19 Range/Units 05:10 WBC 6.6 (4.8-10.8) x10^3/uL RBC 3.63 L (4.20-5.40) 10^6/uL Hgb 11.0 L (12.0-16.0) g/dL Hct 36.5 L (37.0-47.0) % MCV 100.6 H (81.0-99.0) fL MCH 30.3 (27.0-31.0) pg MCHC 30.1 L (32.0-36.0) g/dL RDW 13.6 (12.0-15.0) % Plt Count 246 (130-450) 10^3/uL MPV 10.7 (7.9-10.8) fL Neut # (Auto) 5.2 (1.5-6.6) 10^3/uL Lymph # (Auto) 0.7 L (1.5-3.5) 10^3/uL [place] # (Auto) 0.4 (0.0-1.0) 10^3/uL Eos # (Auto) 0.2 (0.0-0.7) 10^3/uL Baso # (Auto) 0.0 (0.0-0.1) 10^3/uL Absolute Nucleated RBC 0.00 x10^3/uL Nucleated RBC % 0.0 /100WBC Sodium (135-145) mmol/L Potassium (3.5-5.0) mmol/L Chloride (101-111) mmol/L Carbon Dioxide (21-32) mmol/L Anion Gap (6-13) BUN (6-20) mg/dL Creatinine (0.4-1.0) mg/dL Estimated GFR (MDRD) (>89) Glucose (70-100) mg/dL Calcium (8.5-10.3) mg/dL TSH (0.34-5.60) uIU/mL Last Dose Date Last Dose Time [place] mmol/L ABX Reporting Has patient been on IV antibiotics over the past 48 hours?: Yes Assessment/Plan - Problem List (1) VICKIE (acute kidney injury) Impression: -Likely multifactorial; secondary to dehydration and UTI -Continues on IV fluids of D5 1/2 NS for hypoglycemia -Continues on daily IV rocephin -Urine cultures pending -Routine labs UTI (urinary tract infection) -Urine cultures pending -Continues on IV Rocephin daily Hypertension -Continues on metoprolol Hypothyroidism -On synthroid DM type 2 (diabetes mellitus, type 2) -Accu check qAC and HS and SSI now stopped for normal BS -Routine labs, continue IV fluids with D5 for low sugars Bipolar disorder -On lithium and risperidone, continues here Hyperlipidemia -On gemfibrozil, on a temporary hold Chronic back pain -Patient on oxycodone and morphine at home, continues here -Consider re-imaging with CT scan Hx of deep venous thrombosis -Patient no longer takes xarelto, as she met her time frame of anticoagulation -Continues on Lovenox BID for BMI greater than 30
[2019-07-15] MEDS: risperiDONE 1 MG TABLET PO SCH (20:27)
[2019-07-15] MEDS: ENOXAPARIN 40 MG/0.4 ML SYRINGE SUBQ SCH (20:27)
[2019-07-16] MEDS: MORPHINE SULFATE ER 30 MG TABLET PO PRN ×2 (00:25→12:43)
[2019-07-16] MEDS: VANCOMYCIN 125 MG CAPSULE PO SCH ×5 (00:26→21:09)
[2019-07-16] MEDS: SODIUM CHLORIDE FLUSH 0.9% 10 ML SYRINGE IVP SCH ×3 (00:26→15:53)
[2019-07-16] MEDS: DEXTROSE 5%-0.45% NACL 1,000 ML IV SCH (02:30)
[2019-07-16] MEDS: oxyCODONE 5 MG TABLET PO PRN ×4 (02:39→21:09)
[2019-07-16] MEDS: LORazepam 0.5 MG TABLET PO PRN ×2 (02:40→15:52)
[2019-07-16 05:37] LABS: BASOPHILS % (AUTO) 0.4 %; EOSINOPHILS # (AUTO) 0.2 10^3/uL (0.0-0.7); HGB - HEMOGLOBIN 11.8 g/dL (12.0-16.0); LYMPHOCYTES # (AUTO) 1.1 10^3/uL (1.5-3.5); LYMPHOCYTES % (AUTO) 14.9 %; MEAN CORPUSCULAR HEMOGLOBIN 30.5 pg (27.0-31.0); MEAN CORPUSCULAR HGB CONC 31.6 g/dL (32.0-36.0); MEAN CORPUSCULAR VOLUME 96.6 fL (81.0-99.0); MEAN PLATELET VOLUME 11.3 fL (7.9-10.8); MONOCYTES # (AUTO) 0.6 10^3/uL (0.0-1.0); MONOCYTES % (AUTO) 7.8 %; NEUTROPHILS # (AUTO) 5.6 10^3/uL (1.5-6.6); NEUTROPHILS % (AUTO) 73.5 %; PLT - PLATELET COUNT 246 10^3/uL (130-450); RED BLOOD COUNT 3.87 10^6/uL (4.20-5.40); RED CELL DISTRIBUTION WIDTH 13.6 % (12.0-15.0); WHITE BLOOD COUNT 7.6 x10^3/uL (4.8-10.8)
[2019-07-16 05:48] LABS: CALCIUM 9.6 mg/dL (8.5-10.3); CREATININE 1.8 mg/dL (0.4-1.0)
[2019-07-16] MEDS: LEVOTHYROXINE 25 MCG TABLET PO SCH (06:31)
[2019-07-16] MEDS: PANTOPRAZOLE 40 MG TABLET PO SCH (06:31)
--- NOTE | 2019-07-16 08:28 | PROVIDER PROGRESS NOTE ---
Subjective - Prog Note Date Prog Note Date: 07/16/19 Prog Note Time: 14:43 - Subjective Pt reports feeling: Improved Subjective: with Dunia states that she has had C-diff in the past (8 years ago), and feels better since starting her oral vanco today. She denies abdominal pain. She was informed of PPIs possibly contributing to C-diff, so instead she will have an H2 leanna scheduled. She has chronic pain, and her biggest worry is her upcoming discharge. She admits to needing more help at home due to her urinary incontinence. Current Medications - Current Medications Current Medications: Active Medications: Acetaminophen (Tylenol) 650 mg PO Q6HR PRN Albuterol 2.5 mg INH RTQ4H PRN Enoxaparin Sodium (Lovenox) 40 mg SUBQ BID [facility] Dextrose/Sodium Chloride (D5.45ns) w/ 20 Kcl @ 75 mls/hr IV .[id number] [facility] Levothyroxine Sodium (Synthroid) 50 mcg PO QDAC [facility] [place] Carbonate (Lithobid) 300 mg PO DAILY [facility] Lorazepam (Ativan) 0.5 mg PO BID PRN Metoprolol Succinate (Toprol Xl) 50 mg PO DAILY [facility] Morphine Sulfate (Ms Contin) 30 mg PO BID PRN Nicotine (Nicoderm) 1 patch TOP DAILY [facility] Oxycodone HCl (Roxicodone) 5 mg PO Q4HR PRN Oxycodone HCl (Roxicodone) 10 mg PO TID PRN Potassium chloride 40 Meq PO x1 Risperidone (Risperdal) 1 mg PO QPM [facility] Vancomycin HCl (Vancocin) 125 mg PO QID [facility] Venlafaxine HCl (Effexor) 75 mg PO BID [facility] Famotidine 20 PO BID Magnesium oxide 400 mg PO BID with meals gemfibrozil resuming tonight HOME meds: Metoprolol Succinate [Toprol Xl] 50 mg PO DAILY 10/06/12 LORazepam [Lorazepam] 0.5 mg PO BID PRN 06/14/16 Omeprazole 20 mg PO QDAC 06/14/16 risperiDONE [Risperdal] 1 mg PO QPM 06/14/16 Albuterol Sulf [Ventolin Hfa Inhaler] 2 puffs INH Q4H PRN 08/10/18 Oxycodone HCl 10 mg PO TID PRN 08/10/18 Polyethylene Glycol 3350 [Laxaclear] 17 gm PO DAILY PRN 08/10/18 gemfibroziL [Gemfibrozil] 600 mg PO BID 08/10/18 [place] Carbonate 300 mg PO DAILY 08/13/18 Cimetidine 800 mg PO DAILY PRN 07/14/19 Gabapentin 100 mg PO QPM 07/14/19 Levothyroxine Sodium 50 mcg PO QDAC 07/14/19 Morphine Sulfate [Morphine Sulfate ER] 30 mg PO BID PRN 07/14/19 Venlafaxine HCl 75 mg PO BID 07/14/19 Objective - Vital Signs/Intake & Output Reviewed Vital Signs: Yes Vital Signs: Vital Signs x48h Temp Pulse Resp BP Pulse Ox 07/16/19 08:00 36.6 C 60 18 194/65 H 100 Intake & Output: Intake & Output 07/13/19 07/14/19 07/15/19 07/16/19 23:59 23:59 23:59 23:59 Intake Total 4504.583 5126.833 1427.5 Output Total 2050 4750 1600 Balance 2454.583 376.833 -172.5 - Objective General Appearance: positive: No acute distress, Alert Eyes Bilateral: positive: PERRL, No lid inflammation ENT: positive: Pharynx nml, No signs of dehydration Neck: positive: Thyroid nml, No JVD, Trachea midline, Stiff neck Respiratory: positive: Chest non-tender, No respiratory distress, Breath sounds nml Cardiovascular: positive: Regular rate & rhythm, Tachycardia, Systolic murmur Peripheral Pulses: 1+ Radial (R), 1+ Radial (L) Abdomen: positive: Non-tender, Nml bowel sounds, Hepatomegaly, Other (rounded, soft) Back: positive: Nml inspection Skin: positive: Color nml, No rash, Warm, Dry Extremities: positive: Non-tender, Full ROM, Pedal edema (trace, BLEs, right greater than left), Joint swelling Neurologic/Psychiatric: positive: Oriented x3, CN's nml (2-12), Motor nml, Sensation nml, Weakness, Sensory loss Reflexes: Bicep (R): 3+, Bicep (L): 3+ - Lab Results Fish Bones: 07/16/19 04:45 07/16/19 04:45 Other Labs: Lab Results x24hrs 07/16/19 07/16/19 07/15/19 Range/Units 04:45 04:45 21:40 WBC 7.6 (4.8-10.8) x10^3/uL RBC 3.87 L (4.20-5.40) 10^6/uL Hgb 11.8 L (12.0-16.0) g/dL Hct 37.4 (37.0-47.0) % MCV 96.6 (81.0-99.0) fL MCH 30.5 (27.0-31.0) pg MCHC 31.6 L (32.0-36.0) g/dL RDW 13.6 (12.0-15.0) % Plt Count 246 (130-450) 10^3/uL MPV 11.3 H (7.9-10.8) fL Neut # (Auto) 5.6 (1.5-6.6) 10^3/uL Lymph # (Auto) 1.1 L (1.5-3.5) 10^3/uL [place] # (Auto) 0.6 (0.0-1.0) 10^3/uL Eos # (Auto) 0.2 (0.0-0.7) 10^3/uL Baso # (Auto) 0.0 (0.0-0.1) 10^3/uL Absolute Nucleated RBC 0.00 x10^3/uL Nucleated RBC % 0.0 /100WBC Sodium 145 (135-145) mmol/L Potassium 3.1 L (3.5-5.0) mmol/L Chloride 109 (101-111) mmol/L Carbon Dioxide 24 (21-32) mmol/L Anion Gap 12.0 (6-13) BUN 17 (6-20) mg/dL Creatinine 1.8 H (0.4-1.0) mg/dL Estimated GFR (MDRD) 28 L (>89) Glucose 127 H (70-100) mg/dL Calcium 9.6 (8.5-10.3) mg/dL Stl C. diff Tox B Gene POSITIVE A* (NEGATIVE) Last Dose Date Last Dose Time Learned mmol/L 07/15/19 Range/Units 09:25 WBC (4.8-10.8) x10^3/uL RBC (4.20-5.40) 10^6/uL Hgb (12.0-16.0) g/dL Hct (37.0-47.0) % MCV (81.0-99.0) fL MCH (27.0-31.0) pg MCHC (32.0-36.0) g/dL RDW (12.0-15.0) % Plt Count (130-450) 10^3/uL MPV (7.9-10.8) fL Neut # (Auto) (1.5-6.6) 10^3/uL Lymph # (Auto) (1.5-3.5) 10^3/uL [place] # (Auto) (0.0-1.0) 10^3/uL Eos # (Auto) (0.0-0.7) 10^3/uL Baso # (Auto) (0.0-0.1) 10^3/uL Absolute Nucleated RBC x10^3/uL Nucleated RBC % /100WBC Sodium (135-145) mmol/L Potassium (3.5-5.0) mmol/L Chloride (101-111) mmol/L Carbon Dioxide (21-32) mmol/L Anion Gap (6-13) BUN (6-20) mg/dL Creatinine (0.4-1.0) mg/dL Estimated GFR (MDRD) (>89) Glucose (70-100) mg/dL Calcium (8.5-10.3) mg/dL Stl C. diff Tox B Gene (NEGATIVE) Last Dose Date 07/15/19 Last Dose Time 0855 Learned 0.75 mmol/L ABX Reporting Has patient been on IV antibiotics over the past 48 hours?: No Assessment/Plan - Problem List (1) VICKIE (acute kidney injury) Impression: -Likely multifactorial; secondary to dehydration and UTI -Admission serum creatinine was elevated to 2.9, now 1.8 -Also with electrolyte abnormalities -Continues on IV fluids of D5 1/2 NS (added 20Meq Kcl) since having a little low sugars hypoglycemia and low potassium, reduced rate to 75mL/hour -Stopped IV rocephin, since urine culture showed only colonization -Routine labs C-diff colitis -Stool sample was sent due to multiple (greater than 5-6 x 24 hours), abdominal discomfort -C-diff positive -Contact precautions -Oral vanco QID -Monitor for improvement Hypokalemia -Likely due to GI loss, acute c-diff -Replacing orally today, added 20 Meq to IV fluids -Routine labs, monitor stools Weakness -PT daily, recommends longterm for rehab -Encourage activity -Treat infection Hypothyroidism -Current TSH is 2.31 -Continues on synthroid, home dose GERD -Patient takes a PPI at home, now changed to H2 leanna to reduce the risk of recurrent C-diff -Recommend changing home medications Left hip pain -Chronic pain, takes chronic narcotics at home -Continue pain control while inpatient -PT daily DM type 2 (diabetes mellitus, type 2), diet controlled -Accu check qAC and HS and SSI now stopped for normal BS -Routine labs, continue IV fluids with D5 for low sugars Bipolar disorder -On Venlafaxine, lithium and risperidone at home -Continues to have overlying anxiety -Continues on home meds while inpatient -Learned levels per pharmacy -Provide support as indicated Anxiety disorder -Patient also with bipolar, longstanding -Provide emotional support, PRN lorazepam Hypertension -Continues on metoprolol 50 mg PO daily from home list -Obtaining echo for +murmur, body habitus suspect FARRAH, ongoing GERD symptoms -Await echo to evaluate for pulmonary HTN, possible home med adjustment Hyperlipidemia -On gemfibrozil, on a temporary hold given acute infection Hx of deep venous thrombosis -Patient no longer takes xarelto, as she met her time frame of anticoagulation -Continues on Lovenox BID for BMI greater than 30 COPD -Longstanding tobacco abuse, in remission -Uses Ventolin rescue inhaler at home, no recent pneumonia -Support with PRN nebs if needed -Encourage incentive spirometry at least during each commercial on TV while awake Chronic back pain -Patient on oxycodone and morphine at home, continues here -Consider re-imaging with CT scan Urinary incontinence -Urine cultures shows colonized pathogens -Suggest Oxybutynin patch to be applied every 3 days at home upon discharge -If going to SNF, will sent there
[2019-07-16] MEDS: NICOTINE 14 MG PATCH TOP SCH (08:38)
[2019-07-16] MEDS: VENLAFAXINE 37.5 MG TABLET PO SCH ×2 (08:38→21:08)
[2019-07-16] MEDS: LITHIUM ER 300 MG TABLET PO SCH (08:39)
[2019-07-16] MEDS: METOPROLOL SUCCINATE 50 MG TABLET PO SCH (08:39)
[2019-07-16] MEDS: ENOXAPARIN 40 MG/0.4 ML SYRINGE SUBQ SCH ×2 (08:39→21:09)
[2019-07-16] MEDS ORDERED: POTASSIUM CHLORIDE 20 MEQ TABLET PO SCH (14:28)
[2019-07-16] MEDS: D5.45NS W/20 MEQ KCL 1,000 ML IV SCH (15:01)
[2019-07-16] MEDS: gemfibroziL 600 MG TABLET PO SCH (18:17)
[2019-07-16] MEDS: MAGNESIUM OXIDE 400 MG TABLET PO SCH (18:18)
[2019-07-16] MEDS: ACETAMINOPHEN 325 MG TABLET PO PRN (19:46)
[2019-07-16] MEDS ORDERED: GABAPENTIN 100 MG CAPSULE PO SCH (21:00)
[2019-07-16] MEDS: risperiDONE 1 MG TABLET PO SCH (21:09)
[2019-07-16] MEDS: FAMOTIDINE 20 MG TABLET PO SCH (21:09)
[2019-07-17] MEDS: LORazepam 0.5 MG TABLET PO PRN ×2 (00:42→15:56)
[2019-07-17] MEDS: MORPHINE SULFATE ER 30 MG TABLET PO PRN ×2 (00:47→13:54)
[2019-07-17] MEDS: SODIUM CHLORIDE FLUSH 0.9% 10 ML SYRINGE IVP SCH ×2 (03:52→08:28)
[2019-07-17] MEDS: D5.45NS W/20 MEQ KCL 1,000 ML IV SCH (03:54)
[2019-07-17] MEDS: LEVOTHYROXINE 25 MCG TABLET PO SCH (06:11)
[2019-07-17 06:14] LABS: BASOPHILS % (AUTO) 0.5 %; EOSINOPHILS # (AUTO) 0.3 10^3/uL (0.0-0.7); EOSINOPHILS % (AUTO) 4.4 %; LYMPHOCYTES # (AUTO) 1.3 10^3/uL (1.5-3.5); LYMPHOCYTES % (AUTO) 17.3 %; MEAN CORPUSCULAR HEMOGLOBIN 29.7 pg (27.0-31.0); MEAN CORPUSCULAR HGB CONC 30.2 g/dL (32.0-36.0); MEAN CORPUSCULAR VOLUME 98.4 fL (81.0-99.0); MONOCYTES # (AUTO) 0.6 10^3/uL (0.0-1.0); MONOCYTES % (AUTO) 7.9 %; NEUTROPHILS # (AUTO) 5.2 10^3/uL (1.5-6.6); NEUTROPHILS % (AUTO) 69.4 %; PLT - PLATELET COUNT 241 10^3/uL (130-450); RED CELL DISTRIBUTION WIDTH 13.7 % (12.0-15.0); WHITE BLOOD COUNT 7.5 x10^3/uL (4.8-10.8)
[2019-07-17 06:29] LABS: BUN - BLOOD UREA NITROGEN 12 mg/dL (6-20); CARBON DIOXIDE - CO2 24 mmol/L (21-32); CHLORIDE 114 mmol/L (101-111); CREATININE 1.5 mg/dL (0.4-1.0); GLUCOSE 125 mg/dL (70-100); MAGNESIUM 1.8 mg/dL (1.7-2.8); SODIUM 145 mmol/L (135-145)
[2019-07-17 06:51] LABS: CRP - C-REACTIVE PROTEIN < 1.0 mg/dL (0-1.0)
[2019-07-17] MEDS: LITHIUM ER 300 MG TABLET PO SCH (08:26)
[2019-07-17] MEDS: FAMOTIDINE 20 MG TABLET PO SCH (08:26)
[2019-07-17] MEDS: MAGNESIUM OXIDE 400 MG TABLET PO SCH (08:26)
[2019-07-17] MEDS: VENLAFAXINE 37.5 MG TABLET PO SCH (08:26)
[2019-07-17] MEDS: METOPROLOL SUCCINATE 50 MG TABLET PO SCH (08:26)
[2019-07-17] MEDS: gemfibroziL 600 MG TABLET PO SCH (08:26)
[2019-07-17] MEDS: oxyCODONE 5 MG TABLET PO PRN ×2 (08:27→15:56)
[2019-07-17] MEDS: VANCOMYCIN 125 MG CAPSULE PO SCH ×2 (08:27→13:55)
[2019-07-17] MEDS: ENOXAPARIN 40 MG/0.4 ML SYRINGE SUBQ SCH (08:27)
[2019-07-17] MEDS: NICOTINE 14 MG PATCH TOP SCH (08:27)
--- NOTE | 2019-07-17 11:57 | Discharge Plan ---
"Discharge Plan for SNF / [facility] - Discharge Plan And Transition Orders Problem Reviewed?: Yes Disposition: 03 SNF DC/Xfer Condition: Good Allergies and Adverse Reactions: Allergies Allergy/AdvReac Type Severity Reaction Status Date / Time NSAIDS (Non-Steroidal Allergy Mild Hives Verified 08/10/18 11:22 Anti-Inflamma Sulfa (Sulfonamide AdvReac Mild Rash Verified 01/12/18 13:51 Antibiotics) Health Concerns: C. difficile colitis, continue a tapered dosing treatment since this is considered recurrent Weakness, fpc with PT/OT rehab with the goal of returning home with her Plan of Treatment: Finish the whole treatment course for C-diff (patient has been given this treatment plan) Continue therapies, to eventually return home Care Goals: Prevent infection Prevent falls Prevent ED visits or hospital stays Maintain independence to live at home with Assessment: The patient was admitted to the hospital after a mechanical fall, slipping in her bathroom at home. She was found to be in acute kidney failure, with a UTI so started on IV Rocephin. Urine culture showed only colonization, but she continued to have a poor appetite, and ongoing diarrhea similar to at home. A c- diff test was positive, so she was started on the recommended vancomycin QID dosing. Since starting treatment the amount of stools has slowed down, and by this AM, they are nearly formed. She is having an echocardiogram at lunch to evaluate for pulmonary HTN, or heart failure, in the event her medications may be altered. She admitted to daily smoking, but has had no issues with cravings since being in the hospital. There have been no changes to her anti-psychotic medications and her mood has been stable. She is medically stable to be discharged to [facility] for further rehab PT/OT. - SNF / RESIDENTIAL Transition Orders Admit to (Facility): [facility] Under the care of (Name): Fadi Bustos/Dr. 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-severe disease) Vancomycin pulsed-tapered regimen: 125 mg orally 4 times daily for 10 to 14 days, then 125 mg orally twice daily for 7 days, then 125 mg orally once daily for 7 days, then 125 mg orally every 2 or 3 days for 2 to 8 weeks Hypokalemia-Resolved, serum K+ is 3.9 today Weakness-Present on admission, PT/OT rehab indicated, stable Hypothyroidism-Chronic, TSH on 07/15/2019 is 2.31, no changes to home dose, stable GERD (gastroesophageal reflux disease)-Chronic, stopped PPI, recommend avoiding due to the potential of PPIs causing c-diff, continue on H2 leanna, stable Left hip pain-Chronic, stable Diabetes mellitus type 2, nsod-kknyjbulxh-Gibfqgn, blood sugars ranged from 101- 73, stable, no treatment Bipolar disorder-Chronic, remains on home meds, stable Anxiety disorder-Chronic, remains on home meds, stable Hypertension-Chronic, awaiting echo, remains on BB, stable Hyperlipemia-Chronic, resumed gemfibrozil, stable Hx of deep venous thrombosis-Chronic, not on anticoagulants, no recurrence Chronic obstructive pulmonary disease (COPD)-Chronic, encouraged to stop smoking, stable Chronic back pain-Chronic, stable Medicare Certification Statement: I certify that Post Hospital fpc care is medically necessary on a continuing basis for any of the conditions for which she/he is receiving care during hospitalization. Notify PCP of admission and forward orders to primary provider for signature. Weight on admission and: Monthly Medication Orders: PLEASE REFER TO THE DISCHARGE MEDICATION LIST - Medications New Prescriptions: oxyCODONE [Roxicodone] 5 mg PO Q4HR PRN #30 tablet PRN Reason: Pain Famotidine [Pepcid] 20 mg PO BID #60 tablet LORazepam [Ativan] 0.5 mg PO BID PRN #60 tablet PRN Reason: Anxiety Magnesium Oxide [Mag Ox] 400 mg PO BIDWM #60 tablet Morphine Sulfate ER [Ms Contin] 30 mg PO BID PRN #60 tablet.er PRN Reason: Pain Oxybutynin [Oxytrol For Women] 1 each TD Q3D #30 patch.td.4 Vancomycin [Vancocin] 125 mg PO QID #75 capsule - Diet Type: Geriatric Texture: Regular Liquids: Thin May have monthly special meal: Yes - Therapies | Activity Therapy: Evaluation | Treat if indicated: PT, OT Rehabilitation Potential: Maximize functional status, Return to independent living, Maintain present ADL Functional Activity: Activity as Tolerated Weight Bearing: Full Weight Assistance Devices: Wheelchair, Walker"
--- NOTE | 2019-07-17 12:46 | DISCHARGE SUMMARY ---
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): Recurrent infection (non-severe disease) Vancomycin pulsed-tapered regimen: 125 mg orally 4 times daily for 10 to 14 days, then 125 mg orally twice daily for 7 days, then 125 mg orally once daily for 7 days, then 125 mg orally every 2 or 3 days for 2 to 8 weeks Hypokalemia-Resolved, serum K+ is 3.9 today Weakness-Present on admission, PT/OT rehab indicated, stable Hypothyroidism-Chronic, TSH on 07/15/2019 is 2.31, no changes to home dose, stable GERD (gastroesophageal reflux disease)-Chronic, stopped PPI, recommend avoiding due to the potential of PPIs causing c-diff, continue on H2 leanna, stable Left hip pain-Chronic, stable Diabetes mellitus type 2, fwpf-qrasxlkjwl-Joyabpo, blood sugars ranged from 101- 73, stable, no treatment Bipolar disorder-Chronic, remains on home meds, stable Anxiety disorder-Chronic, remains on home meds, stable Hypertension-Chronic, awaiting echo, remains on BB, stable Hyperlipemia-Chronic, resumed gemfibrozil, stable Hx of deep venous thrombosis-Chronic, not on anticoagulants, no recurrence Chronic obstructive pulmonary disease (COPD)-Chronic, encouraged to stop smoking, stable Chronic back pain-Chronic, stable - HPI History of Present Illness: Micaela Etienne) is a 69-year old white female with a past medical history of hypertension, hyperlipidemia, bipolar disorder, anxiety disorder, COPD with emphysema, GERD, chronic back pain on narcotics, unintentional opiate overdose, pancreatitis, diabetes mellitus type 2-diet controlled, obesity, urinary incontinence, insomnia, DVT off anticoagulation, hypothyroidism, and c- diff infection ~8 years ago. She was brought in via EMS after falling in her bathroom, thought to be a mechanical fall as she did not have loss of consciousness. Upon initial exam in the ED, she denied hitting her head or other major injuries. Her baseline mobility is by using a walker, but has been declining over the past 6 months with the amount of steps she can take. Labs showed an elevated WBC count of 12.6, neut # 10.6, elevated anion gap of 14.0, BUN 39, creatinine 2.9, GFR 16, without any other abnormalities. A urine sample shows a strong suspicion of acute infection, and was given IV Rocephin while still in the ED. She was admitted for inpatient care for further treatment of acute kidney injury. The admission provider noted that the patient had dry oral mucosa and reported that she had not been drinking much fluids. She lives with her independently, and they have a caregiver who comes in for 4 hours per day, 6 days of the week and helps with things like making meals and setting up their pills. On initial admitting Hospitalists exam: She denied chest pain, dyspnea, abdominal pain, nausea, vomiting, fever or chills. She complained of back and hip pain. She notes that she had been feeling weird for the past 2 weeks, and has been s uffering from diarrhea and cannot always make it to the bathroom.. She was very emotional and tearful. She was transported to the nursing floor. - HOSPITAL COURSE Hospital Course: The patient was admitted to the hospital after a mechanical fall, slipping in her bathroom at home. She was found to be in acute kidney failure, with a UTI so started on IV Rocephin. Urine culture showed only colonization, but she continued to have a poor appetite, and ongoing diarrhea similar to at home. A c- diff test was positive, so she was started on the recommended vancomycin QID dosing. Since starting treatment the amount of stools has slowed down, and by this AM, they are nearly formed. She is having an echocardiogram at lunch to evaluate for pulmonary HTN, or heart failure, in the event her medications may be altered. She admitted to daily smoking, but has had no issues with cravings since being in the hospital. There have been no changes to her anti-psychotic medications and her mood has been stable. She is medically stable to be discharged to [facility] for further rehab PT/OT. - ALLERGIES Allergies/Adverse Reactions: Allergies Allergy/AdvReac Type Severity Reaction Status Date / Time NSAIDS (Non-Steroidal Allergy Mild Hives Verified 08/10/18 11:22 Anti-Inflamma Sulfa (Sulfonamide AdvReac Mild Rash Verified 01/12/18 13:51 Antibiotics) - MEDICATIONS Home Medications: Ambulatory Orders Medication Instructions Recorded Confirmed Oxybutynin [Oxytrol For Women] 1 each TD Q3D #30 patch.td.4 07/16/19 Albuterol Sulf [Ventolin Hfa 2 puffs INH Q4H PRN #1 07/17/19 07/14/19 Inhaler] Famotidine [Pepcid] 20 mg PO BID #60 tablet 07/17/19 Gabapentin 100 mg PO QPM #30 07/17/19 07/14/19 LORazepam [Ativan] 0.5 mg PO BID PRN #60 tablet 07/17/19 Levothyroxine Sodium 50 mcg PO QDAC #30 07/17/19 07/14/19 [place] Carbonate 300 mg PO DAILY #30 07/17/19 07/14/19 Magnesium Oxide [Mag Ox] 400 mg PO BIDWM #60 tablet 07/17/19 Metoprolol Succinate [Toprol Xl] 50 mg PO DAILY #30 07/17/19 07/14/19 Morphine Sulfate ER [Ms Contin] 30 mg PO BID PRN #60 tablet.er 07/17/19 Morphine Sulfate [Morphine Sulfate 30 mg PO BID PRN #60 07/17/19 07/14/19 ER] Oxycodone HCl 10 mg PO TID PRN #30 07/17/19 07/14/19 Vancomycin [Vancocin] 125 mg PO QID #75 capsule 07/17/19 Venlafaxine HCl 75 mg PO BID #60 07/17/19 07/14/19 gemfibroziL [Gemfibrozil] 600 mg PO BID #60 07/17/19 07/14/19 oxyCODONE [Roxicodone] 5 mg PO Q4HR PRN #30 tablet 07/17/19 risperiDONE [Risperdal] 1 mg PO QPM #30 07/17/19 07/14/19 - PHYSICAL EXAM AT DISCHARGE General Appearance: positive: Alert, Mild distress, Anxious, Other (tearful regarding the COVID-19 virus out break) Eyes Bilateral: positive: PERRL, No lid inflammation ENT: positive: No signs of dehydration, Pharyngeal erythema Neck: positive: No JVD, Trachea midline Respiratory: positive: Chest non-tender, No respiratory distress, Breath sounds nml Cardiovascular: positive: Regular rate & rhythm, No gallop, Systolic murmur, Decreased pulse(s) Peripheral Pulses: positive: 1+ Abdomen: positive: Non-tender, Nml bowel sounds, Other (obese, soft) Back: positive: Nml inspection Skin: positive: No rash, Warm, Dry, Other (pale, scattered bruising) Neurologic/Psychiatric: positive: Oriented x3, CN's nml (2-12), Motor nml, Sensation nml, Weakness, Depressed mood/affect (baseline bipolor, tearful, flat affect) Reflexes: Bicep (R): 3+, Bicep (L): 3+, Ankle (R): 3+, Ankle (L): 3+ - LABS Result Diagrams: 07/17/19 05:40 07/17/19 05:40 - FOLLOW UP Follow Up: See your PCP within one week of discharge Stay on prolonged PO vancomycin taper - TIME SPENT Time Spent in Discharge (Minutes): 55
[2019-07-17 16:04] VITALS: BP 162/102
== END 2019-07-17 16:30 | DRG 372 ==
LOC: EDUNIT# → ED 20:47 → MS2 07-14 01:37 → OBSVTOIN 07-14 07:34
PROVIDERS: ADMIT Internal Medicine; ATTEND Nurse Practitioner
DX: A04.71 Enterocolitis due to Clostridium difficile, recurrent (principal); E86.0 Dehydration; N30.00 Acute cystitis without hematuria; N17.9 Acute kidney failure, unspecified; I10 Essential (primary) hypertension; E87.6 Hypokalemia; E03.9 Hypothyroidism, unspecified; E11.9 Type 2 diabetes mellitus without complications; F31.9 Bipolar disorder, unspecified; F41.9 Anxiety disorder, unspecified; J44.9 Chronic obstructive pulmonary disease, unspecified; J43.9 Emphysema, unspecified; F17.210 Nicotine dependence, cigarettes, uncomplicated; E78.5 Hyperlipidemia, unspecified; K21.9 Gastro-esophageal reflux disease without esophagitis; G89.29 Other chronic pain; M54.30 Sciatica, unspecified side; M25.552 Pain in left hip; M19.90 Unspecified osteoarthritis, unspecified site; Z74.09 Other reduced mobility; R32 Unspecified urinary incontinence; H54.7 Unspecified visual loss; Z96.659 Presence of unspecified artificial knee joint; Z91.81 History of falling; Z79.51 Long term (current) use of inhaled steroids; Z79.891 Long term (current) use of opiate analgesic; Z86.718 Personal history of other venous thrombosis and embolism; Z72.89 Other problems related to lifestyle
CPT/HCPCS: 36415; 70450; 71045; 73502; 80048; 80178; 81001; 82272; 82550; 83735; 84443; 84484; 85025; 86140; 87086; 87493; 93005; 93306; 94640; 96361; 96365; 96366; 97110; 97162; 97165; 99285; 99291; A9270; G0378; J1650; J8499; 80320; 81003; 85027

== ENCOUNTER 2019-08-19 10:58 | Emergency (ER) | payer MEDICARE, MEDICAID ==
[2019-08-19 11:23] LABS: GLUCOSE, URINE (UA) 100 mg/dL (NEGATIVE); KETONES,URINE (UA) TRACE mg/dL (NEGATIVE); LEUKOCYTE ESTERASE, URINE LARGE (NEGATIVE); NITRITE,URINE POSITIVE (NEGATIVE); OCCULT BLOOD,URINE LARGE (NEGATIVE); PH,URINE 6.5 PH (5.0-7.5); PROTEIN,URINE >=300 mg/dL (NEGATIVE); UROBILINOGEN,URINE 2 E.U./dL (NORMAL)
--- NOTE | 2019-08-19 11:25 | ED Physician Documentation ---
History of Present Illness - Stated complaint Stated Complaint: FEMALE - Chief complaint Chief Complaint: General - History obtained from History obtained from: Patient - History of Present Illness Timing: How many days ago (3) Pain level max: 6 Pain level now: 5 Improved by: rest Worsened by: urination - Additonal information Additional information: Patient with dysuria and hematuria for the past 3 days. Similar to prior bladder infections. No fevers. No vomiting. No back pain. Review of Systems Constitutional: denies: Fever Respiratory: denies: Cough GI: denies: Abdominal Pain, Vomiting Skin: denies: Rash Musculoskeletal: denies: Neck pain, Back pain Neurologic: denies: Headache PD PAST MEDICAL HISTORY - Past Medical History Cardiovascular: Hypertension, High cholesterol, Deep vein thrombosis Respiratory: Asthma, COPD, Shortness of breath Neuro: None Endocrine/Autoimmune: Type 2 diabetes GI: GERD : Incontinence HEENT: None Psych: Anxiety, Bipolar disorder Musculoskeletal: Chronic back pain Derm: None - Past Surgical History Past Surgical History: Yes General: EGD, Colonoscopy Ortho: Knee replacement, Spine surgery /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: section HEENT: Tonsil/Adenoidectomy - Present Medications Home Medications: Ambulatory Orders Medication Instructions Recorded Confirmed Oxybutynin [Oxytrol For Women] 1 each TD Q3D #30 patch.td.4 07/16/19 Albuterol Sulf [Ventolin Hfa 2 puffs INH Q4H PRN #1 07/17/19 07/14/19 Inhaler] Famotidine [Pepcid] 20 mg PO BID #60 tablet 07/17/19 Gabapentin 100 mg PO QPM #30 07/17/19 07/14/19 LORazepam [Ativan] 0.5 mg PO BID PRN #60 tablet 07/17/19 Levothyroxine Sodium 50 mcg PO QDAC #30 07/17/19 07/14/19 [place] Carbonate 300 mg PO DAILY #30 07/17/19 07/14/19 Magnesium Oxide [Mag Ox] 400 mg PO BIDWM #60 tablet 07/17/19 Metoprolol Succinate [Toprol Xl] 50 mg PO DAILY #30 07/17/19 07/14/19 Morphine Sulfate ER [Ms Contin] 30 mg PO BID PRN #60 tablet.er 07/17/19 Morphine Sulfate [Morphine Sulfate 30 mg PO BID PRN #60 07/17/19 07/14/19 ER] Oxycodone HCl 10 mg PO TID PRN #30 07/17/19 07/14/19 Vancomycin [Vancocin] 125 mg PO QID #75 capsule 07/17/19 Venlafaxine HCl 75 mg PO BID #60 07/17/19 07/14/19 gemfibroziL [Gemfibrozil] 600 mg PO BID #60 07/17/19 07/14/19 oxyCODONE [Roxicodone] 5 mg PO Q4HR PRN #30 tablet 07/17/19 risperiDONE [Risperdal] 1 mg PO QPM #30 07/17/19 07/14/19 Nitrofurantoin Monohyd/M-Cryst 100 mg PO BID #10 capsule 08/19/19 [Macrobid 100 mg Capsule] Phenazopyridine HCl [Pyridium] 200 mg PO TID PRN #6 tablet 08/19/19 - Allergies Allergies/Adverse Reactions: Allergies Allergy/AdvReac Type Severity Reaction Status Date / Time NSAIDS (Non-Steroidal Allergy Mild Hives Verified 08/19/19 11:06 Anti-Inflamma Sulfa (Sulfonamide AdvReac Mild Rash Verified 08/19/19 11:06 Antibiotics) - Social History Does the pt smoke?: Yes Smoking Status: Current every day smoker Does the pt drink ETOH?: No Does the pt have substance abuse?: No - Immunizations Immunizations are current?: Yes Immunizations: TDAP >10years/unknown - POLST Patient has POLST: No PD ED PE NORMAL - Vitals Vital signs reviewed: Yes - General General: Alert and oriented X 3, No acute distress - HEENT HEENT: Moist mucous membranes - Cardiac Cardiac: RRR - Respiratory Respiratory: No respiratory distress, Clear bilaterally - Abdomen Abdomen: Soft, Non tender, Non distended - Back Back: No CVA TTP - Derm Derm: Warm and dry - Neuro Neuro: Alert and oriented X 3 - Psych Psych: Normal affect Results - Vitals Vitals: Vital Signs - 24 hr 08/19/19 11:01 Temperature 36.2 C L Heart Rate 62 Respiratory 16 Rate Blood Pressure 119/57 L O2 Saturation 99 Oxygen O2 Source [Without Activity] Room air O2 Source Room air - Labs Labs: Laboratory Tests 08/19/19 00:00 Urine Color BROWN Urine Clarity SL Urine pH 6.5 Ur Specific [place] 1.010 Urine Protein >=300 H Urine Glucose (UA) 100 H Urine Ketones TRACE Urine Occult Blood LARGE H Urine Nitrite POSITIVE H Urine Bilirubin NEGATIVE Urine Urobilinogen 2 H Ur Leukocyte Esterase LARGE H Urine RBC TNTC H Urine WBC >25 H Ur Squamous Epith Cells NONE SEEN Urine Bacteria Moderate H Ur Microscopic Review INDICATED Urine Culture Comments INDICATED PD MEDICAL DECISION MAKING - ED course Complexity details: reviewed results, considered differential, d/w patient ED course: Patient with a UTI. Will place on antibiotics. She is well-appearing, nontoxic. Afebrile. No evidence of pyelonephritis. Patient counseled regarding signs and symptoms for which I believe and urgent re-evaluation would be necessary. Patient with good understanding of and agreement to plan and is comfortable going home at this time This document was made in part using voice recognition software. While efforts are made to proofread this document, sound alike and grammatical errors may occur. Departure - Departure Disposition: 01 Home, Self Care Clinical Impression: UTI (urinary tract infection) Qualifiers: Urinary tract infection type: acute cystitis Hematuria presence: with hematuria Qualified Code(s): N30.01 - Acute cystitis with hematuria Condition: Good Instructions: ED UTI Cystitis Female Follow-Up: Fadi Bustos MD [Primary Care Provider] - As Needed Prescriptions: Nitrofurantoin Monohyd/M-Cryst [Macrobid 100 mg Capsule] 100 mg PO BID #10 capsule Phenazopyridine HCl [Pyridium] 200 mg PO TID PRN #6 tablet PRN Reason: dysuria Comments: Take all antibiotics until gone. return if you worsen.
[2019-08-19 11:26] LABS: BILIRUBIN,URINE NEGATIVE (NEGATIVE); CLARITY,URINE SL (CLEAR); ICTOTEST,URINE NEGATIVE
[2019-08-19 11:27] LABS: BACTERIA,URINE Moderate /HPF (None Seen); RBC,URINE TNTC /HPF (0-5); SQUAMOUS EPITHELIAL CELL,UR NONE SEEN (<= Few)
[2019-08-19] MEDS: NITROFURANTOIN MACRO 100 MG CAPSULE PO STA (11:57)
[2019-08-19] MEDS: PHENAZOPYRIDINE 100 MG TABLET PO STA (11:57)
[2019-08-19 12:00] VITALS: BP 147/74
== END 2019-08-19 12:00 | disposition home or self-care (01) ==
LOC: ED 10:58
DX: N30.01 Acute cystitis with hematuria (principal); I10 Essential (primary) hypertension; E11.9 Type 2 diabetes mellitus without complications; F17.200 Nicotine dependence, unspecified, uncomplicated
CPT/HCPCS: 81001; 87077; 87086; 87181; 99283; 99284; A9270; 81003

== ENCOUNTER 2019-09-09 16:23 | Outpatient (CLI) | payer MEDICARE, MEDICAID | END 2019-09-09 16:24 | disposition EMS.NT | LOC: EMS 16:23 | PROVIDERS: ATTEND Surgery | DX: Z03.89 Encounter for observation for other suspected diseases and conditions ruled out (principal) ==

== ENCOUNTER 2019-10-02 13:41 | Emergency (ER) | payer MEDICARE, MEDICAID ==
[2019-10-02 13:52] VITALS: BP 147/84
--- NOTE | 2019-10-02 14:12 | XRAY Report ---
Reason: Trauma Procedure Date: 10/02/2019 Accession Number: [id number] / [id number] Procedure: XR - Ankle 3 View LT CPT Code: Final Report FULL RESULT: PROCEDURE: Ankle 3 View LT INDICATIONS: Trauma TECHNIQUE: 3 views of the ankle were acquired. COMPARISON: None FINDINGS: Bones: No fractures or dislocations. Ankle mortise is normally aligned. No suspicious bony lesions. Soft tissues: No tibiotalar joint effusion. Achilles tendon appears normal. IMPRESSION: No acute fracture. No osseous lesion. If symptoms and/or clinical suspicion for pathology continue, further assessment with repeat plain films, or advanced imaging (e.g., CT, MRI, or bone scan) is recommended for further assessment. Reviewed by: Lisa Cooley MD on 10/02/2019 2:08 PM PDT Approved by: Lisa Cooley MD on 10/02/2019 2:08 PM PDT Station ID: [id number]
--- NOTE | 2019-10-02 14:21 | ED Physician Documentation ---
PD HPI LOWER EXT INJURY - Stated complaint Stated Complaint: GLF - Chief complaint Chief Complaint: Ext Problem - History obtained from History obtained from: Patient - History of Present Illness PD HPI LOW EXT INJURY LOCATION: Left, Ankle, Foot Type of injury: Fall Where injury occurred: Home Timing - onset: Yesterday Timing - duration: Days (1) Timing - details: Gradual onset Pain level max: 6 Pain level now: 5 Improved by: Rest Worsened by: Moving, Palpating Associated symptoms: Swelling. No: Weakness, Numbness Contributing factors: No: Anticoagulated, Prior ortho surgery, Prosthetic joint, Work related Recently seen: Not recently seen Review of Systems Constitutional: denies: Fever, Chills GI: denies: Vomiting Musculoskeletal: denies: Neck pain, Back pain Neurologic: denies: Headache, Head injury PD PAST MEDICAL HISTORY - Past Medical History Past Medical History: Yes Cardiovascular: Hypertension, High cholesterol, Deep vein thrombosis Respiratory: Asthma, COPD, Shortness of breath Neuro: None Endocrine/Autoimmune: Type 2 diabetes GI: GERD : Incontinence HEENT: None Psych: Anxiety, Bipolar disorder Musculoskeletal: Chronic back pain Derm: None - Past Surgical History Past Surgical History: Yes General: EGD, Colonoscopy Ortho: Knee replacement, Spine surgery /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: section HEENT: Tonsil/Adenoidectomy - Present Medications Home Medications: Ambulatory Orders Medication Instructions Recorded Confirmed Oxybutynin [Oxytrol For Women] 1 each TD Q3D #30 patch.td.4 07/16/19 Albuterol Sulf [Ventolin Hfa 2 puffs INH Q4H PRN #1 07/17/19 07/14/19 Inhaler] Famotidine [Pepcid] 20 mg PO BID #60 tablet 07/17/19 Gabapentin 100 mg PO QPM #30 07/17/19 07/14/19 LORazepam [Ativan] 0.5 mg PO BID PRN #60 tablet 07/17/19 Levothyroxine Sodium 50 mcg PO QDAC #30 07/17/19 07/14/19 [place] Carbonate 300 mg PO DAILY #30 07/17/19 07/14/19 Magnesium Oxide [Mag Ox] 400 mg PO BIDWM #60 tablet 07/17/19 Metoprolol Succinate [Toprol Xl] 50 mg PO DAILY #30 07/17/19 07/14/19 Morphine Sulfate ER [Ms Contin] 30 mg PO BID PRN #60 tablet.er 07/17/19 Morphine Sulfate [Morphine Sulfate 30 mg PO BID PRN #60 07/17/19 07/14/19 ER] Oxycodone HCl 10 mg PO TID PRN #30 07/17/19 07/14/19 Vancomycin [Vancocin] 125 mg PO QID #75 capsule 07/17/19 Venlafaxine HCl 75 mg PO BID #60 07/17/19 07/14/19 gemfibroziL [Gemfibrozil] 600 mg PO BID #60 07/17/19 07/14/19 oxyCODONE [Roxicodone] 5 mg PO Q4HR PRN #30 tablet 07/17/19 risperiDONE [Risperdal] 1 mg PO QPM #30 07/17/19 07/14/19 Nitrofurantoin Monohyd/M-Cryst 100 mg PO BID #10 capsule 08/19/19 [Macrobid 100 mg Capsule] Phenazopyridine HCl [Pyridium] 200 mg PO TID PRN #6 tablet 08/19/19 - Allergies Allergies/Adverse Reactions: Allergies Allergy/AdvReac Type Severity Reaction Status Date / Time NSAIDS (Non-Steroidal Allergy Mild Hives Verified 10/02/19 13:49 Anti-Inflamma Sulfa (Sulfonamide AdvReac Mild Rash Verified 10/02/19 13:49 Antibiotics) - Social History Does the pt smoke?: Yes Smoking Status: Current every day smoker Does the pt drink ETOH?: No Does the pt have substance abuse?: No - Immunizations Immunizations are current?: Yes Immunizations: TDAP >10years/unknown - POLST Patient has POLST: No PD ED PE NORMAL - Vitals Vital signs reviewed: Yes - General General: Alert and oriented X 3, No acute distress, Well developed/nourished - HEENT HEENT: Moist mucous membranes - Neck Neck: Supple, no meningeal sign - Derm Derm: Warm and dry - Extremities Extremities: Other (L ankle and foot - Neurovascular intact. No gross deformity. Tender to palpation over the base of the fifth metatarsal as well as the lateral aspect of the lateral malleolus. No gross deformity. No tenderness over the proximal tibia or fibula.) - Neuro Neuro: Alert and oriented X 3 - Psych Psych: Normal mood, Normal affect Results - Vitals Vitals: Vital Signs - 24 hr 10/02/19 10/02/19 13:49 14:03 Temperature 97.3 C H 37.3 C Heart Rate 92 Respiratory 16 Rate Blood Pressure 147/84 H O2 Saturation 98 Oxygen O2 Source [] Room air O2 Source Room air - Rads (name of study) Left Ankle x-ray Radiology: Prelim report reviewed, EMP read contemporaneously, See rad report (No acute fracture. No osseous lesion. If symptoms and/or clinical suspicion for pathology continue, further assessment with repeat plain films, or advanced imaging (e.g., CT, MRI, or bone scan) is recommended for further assessment. ) L foot xray Radiology: Prelim report reviewed, EMP read contemporaneously, See rad report PD MEDICAL DECISION MAKING - ED course Complexity details: reviewed results, re-evaluated patient, considered differential, d/w patient ED course: Patient with what appears to be an ankle sprain. There are no fractures on x- ray today. Placed in an Aircast for comfort. Patient counseled regarding signs and symptoms for which I believe and urgent re-evaluation would be necessary. Patient with good understanding of and agreement to plan and is comfortable going home at this time This document was made in part using voice recognition software. While efforts are made to proofread this document, sound alike and grammatical errors may occur. Departure - Departure Disposition: 01 Home, Self Care Clinical Impression: Left ankle sprain Qualifiers: Encounter type: initial encounter Involved ligament of ankle: unspecified ligament Qualified Code(s): S93.402A - Sprain of unspecified ligament of left ankle, initial encounter Condition: Good Instructions: ED Sprain Ankle W X Ray Follow-Up: Felicia Daniel DO [Primary Care Provider] - Within 1 week Comments: Thankfully your x-rays do not show any fractures today. Follow-up with your doctor for further care. You may bear weight as tolerated. The brace will help to provide more stability to your ankle. Return if you worsen. Discharge Date/Time: 10/02/19 15:32
--- NOTE | 2019-10-02 14:52 | XRAY Report ---
Reason: fall, foot pain Procedure Date: 10/02/2019 Accession Number: [id number] / [id number] Procedure: XR - Foot 3 View LT CPT Code: Final Report FULL RESULT: PROCEDURE: Foot 3 View LT INDICATIONS: fall, foot pain TECHNIQUE: 3 views of the foot were acquired. COMPARISON: Left foot plain films dated 05.04.17 FINDINGS: Bones: No fractures or dislocations. No suspicious bony lesions. Soft tissues: No tibiotalar joint effusion. Achilles tendon appears normal. IMPRESSION: No acute fracture. No osseous lesion. If symptoms and/or clinical suspicion for pathology continue, further assessment with repeat plain films, or advanced imaging (e.g., CT, MRI, or bone scan) is recommended for further assessment. Reviewed by: Lisa Cooley MD on 10/02/2019 2:48 PM PDT Approved by: Lisa Cooley MD on 10/02/2019 2:48 PM PDT Station ID: [id number]
== END 2019-10-02 15:32 | disposition home or self-care (01) ==
LOC: EDUNIT# → ED 13:41
DX: S93.402A Sprain of unspecified ligament of left ankle, initial encounter (principal); W18.30XA Fall on same level, unspecified, initial encounter; Y93.01 Activity, walking, marching and hiking; Y92.007 Garden or yard of unspecified non-institutional (private) residence as the place of occurrence of the external cause; I10 Essential (primary) hypertension; E11.9 Type 2 diabetes mellitus without complications; F17.200 Nicotine dependence, unspecified, uncomplicated
CPT/HCPCS: 99283; 99284

== ENCOUNTER 2019-11-14 18:28 | Outpatient (CLI) | payer MEDICARE, MEDICAID | END 2019-11-14 18:29 | disposition critical access hospital (66) | LOC: EMS 18:28 | PROVIDERS: ATTEND Surgery | DX: R53.1 Weakness (principal); R25.1 Tremor, unspecified | CPT/HCPCS: A0425; A0429 ==

== ENCOUNTER 2019-11-14 19:03 | Inpatient (IN) | payer MEDICARE, MEDICAID ==
[2019-11-14 19:36] LABS: BASOPHILS # (AUTO) 0.1 10^3/uL (0.0-0.1); BASOPHILS % (AUTO) 0.5 %; EOSINOPHILS # (AUTO) 0.5 10^3/uL (0.0-0.7); EOSINOPHILS % (AUTO) 3.9 %; HGB - HEMOGLOBIN 10.9 g/dL (12.0-16.0); LYMPHOCYTES # (AUTO) 0.9 10^3/uL (1.5-3.5); LYMPHOCYTES % (AUTO) 7.5 %; MEAN CORPUSCULAR HEMOGLOBIN 29.4 pg (27.0-31.0); MEAN CORPUSCULAR VOLUME 94.9 fL (81.0-99.0); MEAN PLATELET VOLUME 9.6 fL (7.9-10.8); MONOCYTES # (AUTO) 0.8 10^3/uL (0.0-1.0); MONOCYTES % (AUTO) 6.4 %; NEUTROPHILS # (AUTO) 9.9 10^3/uL (1.5-6.6); NEUTROPHILS % (AUTO) 81.1 %; PLT - PLATELET COUNT 327 10^3/uL (130-450); RED BLOOD COUNT 3.71 10^6/uL (4.20-5.40); RED CELL DISTRIBUTION WIDTH 14.7 % (12.0-15.0); WHITE BLOOD COUNT 12.2 x10^3/uL (4.8-10.8)
--- NOTE | 2019-11-14 19:46 | ED Physician Documentation ---
History of Present Illness - Stated complaint Stated Complaint: WEAKNESS - Chief complaint Chief Complaint: Neuro - History of Present Illness Pain level max: 0 Pain level now: 0 - Treatment prior to arrival Treatment prior to arrival: seen at walk in clinic and dx with pyelonephritis - Additonal information Additional information: 69-year-old female presents to the emergency department via EMS simply because she is feeling off and weak. She reports that last week she was diagnosed with a urinary tract infection at a walk-in clinic and was prescribed antibiotics. Patient admits that she is not taking the antibiotics because she often forgets. She continues to have urinary frequency and urgency. She denies any fevers. She denies chest pain, any focal weakness, or feeling short of breath. Meds: oxybutin, albuterol, pepcid, gabapentin, lithium, metoprolol, venlafaxine, gemfibrozil, resperidone Review of Systems Constitutional: denies: Fever, Chills Cardiac: denies: Chest pain / pressure, Palpitations Respiratory: denies: Dyspnea, Cough GI: reports: Diarrhea. denies: Abdominal Pain, Abdominal Swelling, Vomiting : reports: Dysuria, Frequency Neurologic: denies: Generalized weakness, Focal weakness, Syncope, Seizure, Headache Endocrine: denies: Polydypsia, Polyuria PD PAST MEDICAL HISTORY - Past Medical History Cardiovascular: Hypertension, High cholesterol, Deep vein thrombosis Respiratory: Asthma, COPD, Shortness of breath Neuro: None Endocrine/Autoimmune: Type 2 diabetes GI: GERD : Incontinence HEENT: None Psych: Anxiety, Bipolar disorder Musculoskeletal: Chronic back pain Derm: None - Past Surgical History Past Surgical History: Yes General: EGD, Colonoscopy Ortho: Knee replacement, 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 HEENT: Tonsil/Adenoidectomy - Present Medications Home Medications: Ambulatory Orders Medication Instructions Recorded Confirmed Oxybutynin [Oxytrol For Women] 1 each TD Q3D #30 patch.td.4 07/16/19 Albuterol Sulf [Ventolin Hfa 2 puffs INH Q4H PRN #1 07/17/19 07/14/19 Inhaler] Famotidine [Pepcid] 20 mg PO BID #60 tablet 07/17/19 Gabapentin 100 mg PO QPM #30 07/17/19 07/14/19 LORazepam [Ativan] 0.5 mg PO BID PRN #60 tablet 07/17/19 Levothyroxine Sodium 50 mcg PO QDAC #30 07/17/19 07/14/19 [place] Carbonate 300 mg PO DAILY #30 07/17/19 07/14/19 Magnesium Oxide [Mag Ox] 400 mg PO BIDWM #60 tablet 07/17/19 Metoprolol Succinate [Toprol Xl] 50 mg PO DAILY #30 07/17/19 07/14/19 Morphine Sulfate ER [Ms Contin] 30 mg PO BID PRN #60 tablet.er 07/17/19 Morphine Sulfate [Morphine Sulfate 30 mg PO BID PRN #60 07/17/19 07/14/19 ER] Oxycodone HCl 10 mg PO TID PRN #30 07/17/19 07/14/19 Vancomycin [Vancocin] 125 mg PO QID #75 capsule 07/17/19 Venlafaxine HCl 75 mg PO BID #60 07/17/19 07/14/19 gemfibroziL [Gemfibrozil] 600 mg PO BID #60 07/17/19 07/14/19 oxyCODONE [Roxicodone] 5 mg PO Q4HR PRN #30 tablet 07/17/19 risperiDONE [Risperdal] 1 mg PO QPM #30 07/17/19 07/14/19 Nitrofurantoin Monohyd/M-Cryst 100 mg PO BID #10 capsule 08/19/19 [Macrobid 100 mg Capsule] Phenazopyridine HCl [Pyridium] 200 mg PO TID PRN #6 tablet 08/19/19 - Allergies Allergies/Adverse Reactions: Allergies Allergy/AdvReac Type Severity Reaction Status Date / Time NSAIDS (Non-Steroidal Allergy Mild Hives Verified 11/14/19 19:09 Anti-Inflamma lisinopril Allergy Unknown Verified 11/14/19 19:09 Sulfa (Sulfonamide AdvReac Mild Rash Verified 11/14/19 19:09 Antibiotics) - Social History Does the pt smoke?: Yes Smoking Status: Current every day smoker Does the pt drink ETOH?: No Does the pt have substance abuse?: No - Immunizations Immunizations are current?: Yes Immunizations: TDAP >10years/unknown - POLST Patient has POLST: No PD ED PE NORMAL - General General: Alert and oriented X 3, No acute distress - Cardiac Cardiac: RRR, No murmur - Respiratory Respiratory: No respiratory distress - Abdomen Abdomen: Normal bowel sounds, Soft, Other (Suprapubic tenderness. no CVA tenderness. no guarding or rebound) - Back Back: No CVA TTP, No spinal TTP - Derm Derm: Normal color, Warm and dry - Extremities Extremities: No deformity - Neuro Neuro: Alert and oriented X 3, display maker 2-12 intact Eye Opening: Spontaneous Motor: Obeys Commands Verbal: Oriented GCS Score: 15 Results - Vitals Vitals: Vital Signs - 24 hr 11/14/19 19:09 Temperature 37.3 C Heart Rate 64 Respiratory 12 Rate Blood Pressure 138/82 H O2 Saturation 94 Oxygen O2 Source [Without Activity] Room air O2 Source Room air - Labs Labs: Laboratory Tests 11/14/19 11/14/19 11/14/19 19:28 19:28 19:48 WBC 12.2 H RBC 3.71 L Hgb 10.9 L Hct 35.2 L MCV 94.9 MCH 29.4 MCHC 31.0 L RDW 14.7 Plt Count 327 MPV 9.6 Neut # (Auto) 9.9 H Lymph # (Auto) 0.9 L Eddy # (Auto) 0.8 Eos # (Auto) 0.5 Baso # (Auto) 0.1 Absolute Nucleated RBC 0.00 Nucleated RBC % 0.0 Sodium 137 Potassium 4.2 Chloride 101 Carbon Dioxide 25 Anion Gap 11.0 BUN 29 H Creatinine 2.7 H Estimated GFR (MDRD) 18 L Glucose 99 Calcium 9.6 Total Bilirubin 0.8 AST 12 ALT < 10 L Alkaline Phosphatase 167 H Total Protein 7.3 Albumin 3.6 Globulin 3.7 Albumin/Globulin Ratio 1.0 Lipase 27 Urine Color YELLOW Urine Clarity CLEAR Urine pH 6.0 Ur Specific [place] 1.010 Urine Protein TRACE Urine Glucose (UA) NEGATIVE Urine Ketones NEGATIVE Urine Occult Blood NEGATIVE Urine Nitrite POSITIVE H Urine Bilirubin NEGATIVE Urine Urobilinogen 0.2 (NORMAL) Ur Leukocyte Esterase MODERATE H Urine RBC None Seen Urine WBC >25 H Urine WBC Clumps PRESENT Ur Squamous Epith Cells NONE SEEN Urine Bacteria Rare Ur Microscopic Review INDICATED Urine Culture Comments INDICATED PD MEDICAL DECISION MAKING - ED course Complexity details: reviewed old records, reviewed results, re-evaluated patient, d/w patient ED course: 69-year-old female presents the emergency department with chief complaint of feeling generally weak.- She has no focal neurological deficits. She is been noted to have a urinary tract infection that was diagnosed last week but patient has not been compliant with her medications. - Labs today show acute kidney or renal insufficiency her creatinine today is 2.7 in the setting of UTI. hx of admission in the past for similar - pt given ceftriaxone 1 gm X1 in the ED. Will be admitted to [facility] hospitalist Dr. wong for furthe revlauation - pt is non toxic appearing, with no hypotension, tachycardia Departure - Departure Disposition: 68 [facility] DC/Xfer Clinical Impression: VICKIE (acute kidney injury) UTI (urinary tract infection) Qualifiers: Urinary tract infection type: acute cystitis Hematuria presence: without hematu gus Qualified Code(s): N30.00 - Acute cystitis without hematuria
[2019-11-14] MEDS ORDERED: cefTRIAXone 1 GM in SODIUM CHLORIDE 0.9% MINIBAG 100 ML IV STA (19:47)
[2019-11-14] MEDS ORDERED: SODIUM CHLORIDE 0.9% 1,000 ML IV STA (19:47)
[2019-11-14 19:48] LABS: ALBUMIN 3.6 g/dL (3.2-5.5); ALKALINE PHOSPHATASE 167 IU/L (42-121); ALT ALANINE AMINOTRANSFERASE < 10 IU/L (10-60); AST ASPARTATE AMINOTRANSFERASE 12 IU/L (10-42); BILIRUBIN,TOTAL 0.8 mg/dL (0.2-1.0); BUN - BLOOD UREA NITROGEN 29 mg/dL (6-20); CALCIUM 9.6 mg/dL (8.5-10.3); CARBON DIOXIDE - CO2 25 mmol/L (21-32); CHLORIDE 101 mmol/L (101-111); CREATININE 2.7 mg/dL (0.4-1.0); GLUCOSE 99 mg/dL (70-100); LIPASE 27 U/L (22-51); SODIUM 137 mmol/L (135-145); TOTAL PROTEIN 7.3 g/dL (6.7-8.2)
[2019-11-14 20:02] LABS: BILIRUBIN,URINE NEGATIVE (NEGATIVE); GLUCOSE, URINE (UA) NEGATIVE (NEGATIVE); KETONES,URINE (UA) NEGATIVE (NEGATIVE); LEUKOCYTE ESTERASE, URINE MODERATE (NEGATIVE); NITRITE,URINE POSITIVE (NEGATIVE); OCCULT BLOOD,URINE NEGATIVE (NEGATIVE); PROTEIN,URINE TRACE mg/dL (NEGATIVE); UROBILINOGEN,URINE 0.2 (NORMAL) E.U./dL (NORMAL)
[2019-11-14 20:04] LABS: CLARITY,URINE CLEAR (CLEAR)
[2019-11-14 20:10] LABS: BACTERIA,URINE Rare /HPF (None Seen); RBC,URINE None Seen /HPF (0-5); SQUAMOUS EPITHELIAL CELL,UR NONE SEEN (<= Few); WBC CLUMPS,URINE PRESENT
[2019-11-14] MEDS ORDERED: SODIUM CHLORIDE FLUSH 0.9% 10 ML SYRINGE IVP PRN (20:27)
[2019-11-14] MEDS ORDERED: ACETAMINOPHEN 325 MG TABLET PO PRN (20:27)
--- NOTE | 2019-11-14 20:35 | HISTORY & PHYSICAL EXAMINATION ---
Chief Complaint - Chief Complaint Chief Complaint: generalized weakness History of Present Illness - Admitted From Admitted From:: [facility] ED - History Obtained From Records Reviewed: yes History obtained from: patient Exam Limitations: none - History of Present Illness HPI Comment/Other: Patient is a 69-year-old female who presented to the ED with complaint of progressive weakness. She had seen her primary care physician a few days ago with complains of burning with urination, increased frequency and increased odor to urine. A urine analysis was done and it was determined that she had a urinary tract infection. She was prescribed. Pyridium and Macrobid. It is unclear how compliant she had been with the medication. However due to her progressive weakness she came to the emergency room for evaluation. In the emergency room work-up included a BMP which showed a creatinine of 2.7. Her urine analysis was also strongly indicative of urinary tract infection. As a result she was presented for admission. At the time of my exam she denied chest pain, dyspnea, nausea or vomiting. She reports some lower abdominal pain. She reports an orange color to her urine. This is likely due to Pyridium. At home she gets around using a walker and a cane. Her past medical history includes bipolar disorder, hypertension, history of DVT, anxiety, depression, history of diabetes mellitus diet controlled and c hronic back pain. 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 Social History Notes: She smoked 1ppd. She quit smoking 6 weeks ago. Uses CBD cannabis oil sublingual. She does not drink alcohol - POLST Patient has POLST: No POLST Status: Full Code Meds/Allgy - Home Medications Home Medications: Ambulatory Orders Medication Instructions Recorded Confirmed Oxybutynin [Oxytrol For Women] 1 each TD Q3D #30 patch.td.4 07/16/19 Albuterol Sulf [Ventolin Hfa 2 puffs INH Q4H PRN #1 07/17/19 07/14/19 Inhaler] Famotidine [Pepcid] 20 mg PO BID #60 tablet 07/17/19 Gabapentin 100 mg PO QPM #30 07/17/19 07/14/19 LORazepam [Ativan] 0.5 mg PO BID PRN #60 tablet 07/17/19 Levothyroxine Sodium 50 mcg PO QDAC #30 07/17/19 07/14/19 [place] Carbonate 300 mg PO DAILY #30 07/17/19 07/14/19 Magnesium Oxide [Mag Ox] 400 mg PO BIDWM #60 tablet 07/17/19 Metoprolol Succinate [Toprol Xl] 50 mg PO DAILY #30 07/17/19 07/14/19 Morphine Sulfate ER [Ms Contin] 30 mg PO BID PRN #60 tablet.er 07/17/19 Morphine Sulfate [Morphine Sulfate 30 mg PO BID PRN #60 07/17/19 07/14/19 ER] Oxycodone HCl 10 mg PO TID PRN #30 07/17/19 07/14/19 Vancomycin [Vancocin] 125 mg PO QID #75 capsule 07/17/19 Venlafaxine HCl 75 mg PO BID #60 07/17/19 07/14/19 gemfibroziL [Gemfibrozil] 600 mg PO BID #60 07/17/19 07/14/19 oxyCODONE [Roxicodone] 5 mg PO Q4HR PRN #30 tablet 07/17/19 risperiDONE [Risperdal] 1 mg PO QPM #30 07/17/19 07/14/19 Nitrofurantoin Monohyd/M-Cryst 100 mg PO BID #10 capsule 08/19/19 [Macrobid 100 mg Capsule] Phenazopyridine HCl [Pyridium] 200 mg PO TID PRN #6 tablet 08/19/19 - Allergies Allergies/Adverse Reactions: Allergies Allergy/AdvReac Type Severity Reaction Status Date / Time NSAIDS (Non-Steroidal Allergy Mild Hives Verified 11/14/19 19:09 Anti-Inflamma lisinopril Allergy Unknown Verified 11/14/19 19:09 Sulfa (Sulfonamide AdvReac Mild Rash Verified 11/14/19 19:09 Antibiotics) Review of Systems - Constitutional Constitutional: reports: Weakness. denies: Fever, Chills - Eyes Eyes: denies: Pain, Vision loss - Ears, Nose & Throat Ears, Nose & Throat: denies: Ear pain, Vertigo - Cardiovascular Cariovascular: denies: Chest pain, Edema, Lightheadedness, Syncope - Respiratory Respiratory: denies: Cough, Sputum production, Wheezing, SOB at rest, SOB with exertion - Gastrointestinal Gastrointestinal: reports: Abdominal pain (lower abdomen). denies: Abdominal distention, Constipation, Diarrhea, Nausea, Vomiting - Genitourinary Genitourinary: reports: Dysuria, Frequency, Other (change in odor). denies: Urgency, Hematuria - Musculoskeletal Musculoskeletal: denies: Muscle pain, Back pain, Muscle aches - Integumentary Integumentary: denies: Rash, Pruritis - Neurological Neurological: denies: Focal weakness - Psychiatric Psychiatric: reports: Depression, Anxiety - Endocrine Endocrine: denies: Polyuria, Polydypsia - Hematologic/Lymphatic Hematologic/Lymphatic: denies: Anemia, Bruising, Petechiae Prior Level of Functionality: Patient is independent of activities of daily living She gets around using a walker and off a cane due to chronic back pain. Exam - Vital Signs Vital Signs: Vital Signs x48h Temp Pulse Resp BP Pulse Ox 11/14/19 19:09 37.3 C 64 12 138/82 H 94 - Physical Exam General Appearance: positive: No acute distress, Alert, Other (intermittently confused) Eyes Bilateral: positive: PERRL, EOMI Neck: positive: No JVD, Trachea midline Respiratory: positive: Chest non-tender, No respiratory distress, Breath sounds nml. negative: Wheezes, Rales, Rhonchi Cardiovascular: positive: Regular rate & rhythm, No murmur Abdomen: positive: Non-tender, Nml bowel sounds, No distention. negative: Guarding, Rebound Back: positive: Nml inspection Skin: positive: Color nml, Warm, Dry Extremities: positive: Non-tender, Full ROM, Nml appearance, No pedal edema Neurologic/Psychiatric: positive: Oriented x3, Mood/affect nml Conclusion/Plan - Problem List (1) VICKIE (acute kidney injury) Conclusion/Plan: Patient had a similar presentation in July 2019. At that time her creatinine was 2.9. Creatinine today is 2.7 Like last time I suspect this is multifactorial due to UTI and possibly de hydration. Patient was started on Rocephin 1 g IV. We will continue. Urine cultures pending. Anticipate improvement in renal function with IV hydration. Normal saline at 125 mils per hour. (2) UTI (urinary tract infection) Conclusion/Plan: Patient has not been compliant with outpatient antibiotic treatment. Patient was started on Rocephin. Will continue. Urine cultures pending. If clinical presentation or renal function worsens, will consider imaging to assess patient's kidneys. Qualifiers: Urinary tract infection type: acute cystitis Hematuria presence: without hematuria Qualified Code(s): N30.00 - Acute cystitis without hematuria (3) Hypertension Conclusion/Plan: Currently normotensive. We will continue home medications. (4) Hypothyroidism Conclusion/Plan: Will resume patient's home Synthroid dose. (5) Diabetes mellitus type 2, diet-controlled Conclusion/Plan: Accu-Cheks q. before meals and at bedtime (6) Bipolar disorder Conclusion/Plan: Will resume patient's home medications once verified. Patient has been on lithium and risperidone in the past. [place] level was in the therapeutic range at 0.96 (7) Hyperlipidemia Conclusion/Plan: On gemfibrozil (8) Chronic back pain Conclusion/Plan: Oxycodone and Tylenol ordered PRN for pain. Qualifiers: Back pain location: low back pain Back pain laterality: unspecified Sciatica presence: with sciatica (9) Hx of deep venous thrombosis Conclusion/Plan: Patient has been on Xarelto in the past but no longer takes it. SCDs. Heparin 5000 units subcu twice daily. (10) Anxiety disorder Conclusion/Plan: On lorazepam - Lab Results Fish Bones: 11/14/19 19:28 11/14/19 19:28 Core Measures - Anticipated LOS I expect patient to be DC'd or transferred within 96 hours.: Yes - DVT/VTE - Prophylaxis VTE/DVT Device ordered at admit?: Yes
[2019-11-14 21:21] LABS: LITHIUM 0.96 mmol/L
[2019-11-14] MEDS: HEPARIN 5,000 UNIT/ML VIAL SUBQ SCH (21:22)
[2019-11-14] MEDS: SODIUM CHLORIDE 0.9% 1,000 ML IV SCH (21:24)
[2019-11-14] MEDS: oxyCODONE 5 MG TABLET PO PRN (23:45)
[2019-11-15] MEDS: SODIUM CHLORIDE FLUSH 0.9% 10 ML SYRINGE IVP SCH ×3 (00:39→16:36)
[2019-11-15 05:13] LABS: BASOPHILS % (AUTO) 0.4 %; EOSINOPHILS # (AUTO) 0.4 10^3/uL (0.0-0.7); EOSINOPHILS % (AUTO) 3.9 %; HGB - HEMOGLOBIN 9.6 g/dL (12.0-16.0); LYMPHOCYTES # (AUTO) 1.4 10^3/uL (1.5-3.5); LYMPHOCYTES % (AUTO) 13.7 %; MEAN CORPUSCULAR HEMOGLOBIN 28.6 pg (27.0-31.0); MEAN CORPUSCULAR HGB CONC 29.8 g/dL (32.0-36.0); MEAN CORPUSCULAR VOLUME 95.8 fL (81.0-99.0); MEAN PLATELET VOLUME 9.9 fL (7.9-10.8); MONOCYTES # (AUTO) 0.6 10^3/uL (0.0-1.0); MONOCYTES % (AUTO) 5.6 %; NEUTROPHILS # (AUTO) 7.6 10^3/uL (1.5-6.6); NEUTROPHILS % (AUTO) 75.8 %; PLT - PLATELET COUNT 305 10^3/uL (130-450); RED BLOOD COUNT 3.36 10^6/uL (4.20-5.40); RED CELL DISTRIBUTION WIDTH 14.7 % (12.0-15.0)
[2019-11-15] MEDS: SODIUM CHLORIDE 0.9% 1,000 ML IV SCH ×2 (05:30→14:05)
[2019-11-15 05:31] LABS: ALBUMIN 2.7 g/dL (3.2-5.5); ALBUMIN/GLOBULIN RATIO 0.8 (1.0-2.2); ALKALINE PHOSPHATASE 146 IU/L (42-121); ALT ALANINE AMINOTRANSFERASE < 10 IU/L (10-60); AST ASPARTATE AMINOTRANSFERASE < 10 IU/L (10-42); BILIRUBIN,TOTAL 0.2 mg/dL (0.2-1.0); BUN - BLOOD UREA NITROGEN 23 mg/dL (6-20); CALCIUM 8.8 mg/dL (8.5-10.3); CARBON DIOXIDE - CO2 22 mmol/L (21-32); CHLORIDE 111 mmol/L (101-111); CREATININE 2.4 mg/dL (0.4-1.0); GLUCOSE 94 mg/dL (70-100); SODIUM 141 mmol/L (135-145)
[2019-11-15] MEDS: MIN OIL/DIMETHICON/COCONUT OIL 92 GM TUBE TOP PRN (05:32)
[2019-11-15] MEDS: PANTOPRAZOLE 40 MG TABLET PO SCH (06:06)
[2019-11-15 06:08] LABS: INR 1.4 (0.8-1.2)
[2019-11-15] MEDS: oxyCODONE 5 MG TABLET PO PRN ×2 (06:58→17:04)
[2019-11-15] MEDS ORDERED: ALBUTEROL NEB 2.5 MG/3 ML INH PRN (08:12)
[2019-11-15] MEDS ORDERED: IPRATROPIUM/ALBUTEROL 3 ML NEB INH PRN (08:15)
[2019-11-15 08:52] LABS: HB2 TOTAL 10.6 g/dL; HEMOGLOBIN A1C 0.41 g/dL; HEMOGLOBIN A1C % 5.7 % (4.6-6.2)
[2019-11-15] MEDS ORDERED: LITHIUM 150 MG CAPSULE PO SCH (09:00)
[2019-11-15] MEDS: cefTRIAXone 1 GM in SODIUM CHLORIDE 0.9% MINIBAG 100 ML IV SCH (09:05)
[2019-11-15] MEDS: MORPHINE SULFATE ER 30 MG TABLET PO SCH ×2 (09:16→21:43)
[2019-11-15] MEDS: LACTOBACILLUS RHAMNOSUS GG CAPSULE PO SCH (09:16)
[2019-11-15] MEDS: HEPARIN 5,000 UNIT/ML VIAL SUBQ SCH ×2 (09:17→21:48)
[2019-11-15] MEDS: NYSTATIN POWDER 15 GM TOP SCH ×2 (09:17→21:43)
[2019-11-15] MEDS: LITHIUM 150 MG CAPSULE PO SCH (10:47)
--- NOTE | 2019-11-15 12:04 | PROVIDER PROGRESS NOTE ---
Assessment/Plan - Problem List (1) VICKIE (acute kidney injury) Assessment/Plan: Patient feel better, Improved, creatinine is 2.4 on today, patient has a 2.7 yesterday. Patient creatinine base line is between 1.5-1.7,it is likely caused by dehydration, will continue hydration with intravenous IV fluids, continue laboratory technical specialist (2) UTI (urinary tract infection) Urinalysis review patient has urinary tract infection, will continue Rocephin, urine culture is pending (3) Hypertension Conclusion/Plan: stable, will resume home BP meds after pharmacy confirm (4) Hypothyroidism We will check a TSH, continue home synthyroid (5) Diabetes mellitus type 2, diet-controlled A1c 5.7 so patient has no diabetic, right now is controlled (6) Bipolar disorder Conclusion/Plan: resume home 300 mg lithium daily per pharmacy, we will resume Risperdal [place] level was in the therapeutic range at 0.96 (7) Hyperlipidemia Conclusion/Plan: will resume gemfibrozil After the pharmacy confirm (8) Chronic back pain Conclusion/Plan: Will resume home p.o. morphine and oxycodone as needed. (9) Hx of deep venous thrombosis Conclusion/Plan: Patient has been on Xarelto in the past but no longer takes it. SCDs. Heparin 5000 units subcu twice daily. (10) Anxiety disorder Conclusion/Plan: pt take lorazepam in home, will resume After the pharmacy confirm (11)weakness Patient reported she feel better on today, we will continue physical therapist and occupational therapist with evaluation and treatment for patient - Current Meds Current Meds: Current Medications Generic Name Dose Route Start Last Admin Trade Name Radha PRN Reason Stop Dose Admin Heparin Sodium (Porcine) 5,000 unit 11/14/19 21:00 11/15/19 09:17 SUBQ 5,000 unit BID JARETT Administration Sodium Chloride 1,000 mls @ 125 mls/hr 11/14/19 21:00 11/15/19 05:30 Normal Saline 0.9% IV 125 mls/hr .Q8H JARETT Administration Ceftriaxone Sodium 1 gm/ 100 mls @ 200 mls/hr 11/15/19 09:00 11/15/19 09:39 Sodium Chloride IV Infused DAILY JARETT Infusion Lactobacillus Rhamnosus 1 cap 11/15/19 09:00 11/15/19 09:16 Culturelle PO 1 cap DAILY JARETT Administration [place] Carbonate 300 mg 11/15/19 11:00 11/15/19 10:47 PO 300 mg DAILY JARETT Administration Mineral Oil 1 applic 11/15/19 05:08 11/15/19 05:32 Cavilon TOP 1 applic PRN PRN Administration Skin Care Morphine Sulfate 30 mg 11/15/19 09:00 11/15/19 09:16 Ms Contin PO 30 mg BID JARETT Administration Nystatin 1 applic 11/15/19 09:00 11/15/19 09:17 Nystop TOP 1 applic BID JARETT Administration Pantoprazole Sodium 40 mg 11/15/19 07:00 11/15/19 06:06 Protonix PO Not Given QDAC JARETT Sodium Chloride 10 ml 11/14/19 20:27 11/14/19 21:24 Normal Saline Flush 0.9% IVP 10 ml PRN PRN Administration NEEDED PER PROVIDER ORDERS Sodium Chloride 10 ml 11/15/19 01:00 11/15/19 09:19 Normal Saline Flush 0.9% IVP Not Given 0100,0900,1700 JARETT - Lab Result Fish Bone Diagrams: 11/15/19 04:35 11/15/19 04:35 - Additional Planning My Orders: My Active Orders 11/15/19 Evaluate and Treat OT [OT] Routine Evaluate and Treat PT [PT] Routine 11/15/19 08:12 Albuterol 2.5 mg INH RTQ4H PRN 11/15/19 08:14 oxyCODONE [Roxicodone] 10 mg PO TID PRN 11/15/19 08:15 Ipratropium/Albuterol [Duoneb] 3 ml INH RTQID PRN 11/15/19 08:16 Nebulizer/MDI Tx. [RC] QID 11/15/19 09:00 Morphine Sulfate ER [Ms Contin] 30 mg PO BID 11/15/19 11:00 [place] 300 mg PO DAILY 11/15/19 Lunch Carb-controlled Diet [DIET] 11/16/19 05:00 TSH [THYROID STIMULATING HORMONE] [IAI] DAILYLAB Subjective - Subjective Patient Reports: Feeling Better Objective Vital Signs: Vital Signs - 24 hr 11/14/19 11/14/19 11/14/19 19:09 21:05 21:39 Temperature 37.3 C 36.8 C Heart Rate 64 66 Heart Rate [ 59 L Brachial] Respiratory 12 18 16 Rate Blood Pressure 138/82 H 109/72 Blood Pressure 133/67 H [Right Brachial artery] O2 Saturation 94 100 97 11/14/19 11/15/19 11/15/19 23:47 06:04 07:38 Temperature 36.0 C L 37 C 36.2 C L Heart Rate Heart Rate [ 72 67 65 Brachial] Respiratory 16 18 18 Rate Blood Pressure Blood Pressure 145/63 H 143/49 H [Right Brachial artery] O2 Saturation 99 100 98 Oxygen O2 Source [Without Activity] Room air O2 Source Room air I&O (Last 24 Hrs): Intake and Output Totals x24h 11/13/19 11/14/19 11/15/19 23:59 23:59 23:59 Intake Total 4314.054 8504.500 Output Total 800 Balance 1531.667 362.500 General: Alert, No acute distress HEENT: Atraumatic Neck: Supple Lymphatic: no adenopathy Neuro: Alert, Non Focal Cardiovascular: Regular rate, Normal S1, Normal S2 Respiratory: Chest non-tender, No respiratory distress, Breath sounds nml Abdomen: Normal bowel sounds, Soft, No tenderness Extremities: Normal pulses - Results Results: Laboratory Results WBC 10.0 x10^3/uL (4.8-10.8) 11/15/19 04:35 RBC 3.36 10^6/uL (4.20-5.40) L 11/15/19 04:35 Hgb 9.6 g/dL (12.0-16.0) L 11/15/19 04:35 Hct 32.2 % (37.0-47.0) L 11/15/19 04:35 MCV 95.8 fL (81.0-99.0) 11/15/19 04:35 MCH 28.6 pg (27.0-31.0) 11/15/19 04:35 MCHC 29.8 g/dL (32.0-36.0) L 11/15/19 04:35 RDW 14.7 % (12.0-15.0) 11/15/19 04:35 Plt Count 305 10^3/uL (130-450) 11/15/19 04:35 MPV 9.9 fL (7.9-10.8) 11/15/19 04:35 Neut # (Auto) 7.6 10^3/uL (1.5-6.6) H 11/15/19 04:35 Lymph # (Auto) 1.4 10^3/uL (1.5-3.5) L 11/15/19 04:35 [place] # (Auto) 0.6 10^3/uL (0.0-1.0) 11/15/19 04:35 Eos # (Auto) 0.4 10^3/uL (0.0-0.7) 11/15/19 04:35 Baso # (Auto) 0.0 10^3/uL (0.0-0.1) 11/15/19 04:35 Absolute Nucleated RBC 0.00 x10^3/uL 11/15/19 04:35 Nucleated RBC % 0.0 /100WBC 11/15/19 04:35 PT 16.0 secs (9.9-12.6) H 11/15/19 05:30 INR 1.4 (0.8-1.2) H 11/15/19 05:30 Sodium 141 mmol/L (135-145) 11/15/19 04:35 Potassium 3.9 mmol/L (3.5-5.0) 11/15/19 04:35 Chloride 111 mmol/L (101-111) 11/15/19 04:35 Carbon Dioxide 22 mmol/L (21-32) 11/15/19 04:35 Anion Gap 8.0 (6-13) 11/15/19 04:35 BUN 23 mg/dL (6-20) H 11/15/19 04:35 Creatinine 2.4 mg/dL (0.4-1.0) H 11/15/19 04:35 Estimated GFR (MDRD) 20 (>89) L 11/15/19 04:35 Glucose 94 mg/dL (70-100) 11/15/19 04:35 Glycated Hemoglobin 5.7 % (4.6-6.2) 11/15/19 05:30 Estim Average Glucose 117 (70-100) H 11/15/19 05:30 Calcium 8.8 mg/dL (8.5-10.3) 11/15/19 04:35 Total Bilirubin 0.2 mg/dL (0.2-1.0) 11/15/19 04:35 AST < 10 IU/L (10-42) L 11/15/19 04:35 ALT < 10 IU/L (10-60) L 11/15/19 04:35 Alkaline Phosphatase 146 IU/L (42-121) H 11/15/19 04:35 Total Protein 6.0 g/dL (6.7-8.2) L 11/15/19 04:35 Albumin 2.7 g/dL (3.2-5.5) L 11/15/19 04:35 Globulin 3.3 g/dL (2.1-4.2) 11/15/19 04:35 Albumin/Globulin Ratio 0.8 (1.0-2.2) L 11/15/19 04:35 Lipase 27 U/L (22-51) 11/14/19 19:28 Urine Color YELLOW 11/14/19 19:48 Urine Clarity CLEAR (CLEAR) 11/14/19 19:48 Urine pH 6.0 PH (5.0-7.5) 11/14/19 19:48 Ur Specific [place] 1.010 (1.002-1.030) 11/14/19 19:48 Urine Protein TRACE mg/dL (NEGATIVE) 11/14/19 19:48 Urine Glucose (UA) NEGATIVE mg/dL (NEGATIVE) 11/14/19 19:48 Urine Ketones NEGATIVE mg/dL (NEGATIVE) 11/14/19 19:48 Urine Occult Blood NEGATIVE (NEGATIVE) 11/14/19 19:48 Urine Nitrite POSITIVE (NEGATIVE) H 11/14/19 19:48 Urine Bilirubin NEGATIVE (NEGATIVE) 11/14/19 19:48 Urine Urobilinogen 0.2 (NORMAL) E.U./dL (NORMAL) 11/14/19 19:48 Ur Leukocyte Esterase MODERATE (NEGATIVE) H 11/14/19 19:48 Urine RBC None Seen /HPF (0-5) 11/14/19 19:48 Urine WBC >25 /HPF (0-5) H 11/14/19 19:48 Urine WBC Clumps PRESENT 11/14/19 19:48 Ur Squamous Epith Cells NONE SEEN (<= Few) 11/14/19 19:48 Urine Bacteria Rare /HPF (None Seen) 11/14/19 19:48 Ur Microscopic Review INDICATED 11/14/19 19:48 Urine Culture Comments INDICATED 11/14/19 19:48 Last Dose Date UNKNOWN 11/14/19 20:47 Last Dose Time UNKNOWN 11/14/19 20:47 [place] 0.96 mmol/L 11/14/19 20:47 - Procedures Procedures: Procedures COLONOSCOPY (01/09/13) Sepsis Event Note (H) - Evaluation Current Stage of Sepsis: Ruled out ABX Reporting Has patient been on IV antibiotics over the past 48 hours?: Yes Current Medications - Current Medications Current Medications: Active Medications Acetaminophen (Tylenol) 650 mg PO Q4HR PRN PRN Reason: Pain 1 to 4 Albuterol () 2.5 mg INH RTQ4H PRN PRN Reason: Wheezing Albuterol/Ipratropium (Duoneb) 3 ml INH RTQID PRN PRN Reason: Shortness of Air/Wheezing Heparin Sodium (Porcine) () 5,000 unit SUBQ BID [facility] Last Admin: 11/15/19 09:17 Dose: 5,000 unit Documented by: Sodium Chloride (Normal Saline 0.9%) 1,000 mls @ 125 mls/hr IV .Q8H [facility] Last Admin: 11/15/19 05:30 Dose: 125 mls/hr Documented by: Ceftriaxone Sodium 1 gm/ (Sodium Chloride) 100 mls @ 200 mls/hr IV DAILY [facility] Last Infusion: 11/15/19 09:39 Dose: Infused Documented by: Lactobacillus Rhamnosus (Culturelle) 1 cap PO DAILY [facility] Last Admin: 11/15/19 09:16 Dose: 1 cap Documented by: [place] Carbonate () 300 mg PO DAILY [facility] Last Admin: 11/15/19 10:47 Dose: 300 mg Documented by: Mineral Oil (Cavilon) 1 applic TOP PRN PRN PRN Reason: Skin Care Last Admin: 11/15/19 05:32 Dose: 1 applic Documented by: Morphine Sulfate (Ms Contin) 30 mg PO BID [facility] Last Admin: 11/15/19 09:16 Dose: 30 mg Documented by: Nystatin (Nystop) 1 applic TOP BID [facility] Last Admin: 11/15/19 09:17 Dose: 1 applic Documented by: Oxycodone HCl (Roxicodone) 10 mg PO TID PRN PRN Reason: Breakthrough Pain Pantoprazole Sodium (Protonix) 40 mg PO QDAC [facility] Last Admin: 11/15/19 06:06 Dose: Not Given Documented by: Sodium Chloride (Normal Saline Flush 0.9%) 10 ml IVP PRN PRN PRN Reason: NEEDED PER PROVIDER ORDERS Last Admin: 11/14/19 21:24 Dose: 10 ml Documented by: Sodium Chloride (Normal Saline Flush 0.9%) 10 ml IVP 0100,0900,1700 JARETT Last Admin: 11/15/19 09:19 Dose: Not Given Documented by: Morphine Sulfate [Morphine Sulfate ER] 30 mg PO BID 11/15/19
--- NOTE | 2019-11-15 12:45 | PHARMACY PROGRESS NOTE ---
- Best Possible Medication History Admit Date and Time: 11/14/192026 Processed by: Pharmacy Medication History completed: Yes Patient Interview: Completed Secondary Source(s): Pharmacy records (Patient interviewed by anesthesia technician, patient unable to confirm doses and times. patient did confirm the names of the medications), Insurance records As the person ultimately responsible for medication therapy, providers are able to order a medication from an existing home medication list in [facility] via the "Reconcile Routine" prior to Confirmation of that medication by postal support employee. Such practice is discouraged except when the physician, in their clinical judgment, deems that a medical need exists for a medication without regard to previous use.
[2019-11-15] MEDS ORDERED: BENZOCAINE/MENTHOL LOZENGE MM PRN (16:21)
[2019-11-15] MEDS ORDERED: OXYBUTYNIN TD SCH (19:00)
[2019-11-15] MEDS: VENLAFAXINE 37.5 MG TABLET PO SCH (21:43)
[2019-11-15] MEDS: risperiDONE 1 MG TABLET PO SCH (21:43)
[2019-11-15] MEDS: GABAPENTIN 100 MG CAPSULE PO SCH (21:43)
[2019-11-15] MEDS: gemfibroziL 600 MG TABLET PO SCH (21:46)
[2019-11-16] MEDS: SODIUM CHLORIDE 0.9% 1,000 ML IV SCH ×4 (01:06→21:27)
[2019-11-16] MEDS: SODIUM CHLORIDE FLUSH 0.9% 10 ML SYRINGE IVP SCH ×3 (01:07→16:11)
[2019-11-16 05:30] LABS: BASOPHILS % (AUTO) 0.4 %; EOSINOPHILS # (AUTO) 0.3 10^3/uL (0.0-0.7); EOSINOPHILS % (AUTO) 3.6 %; HGB - HEMOGLOBIN 9.2 g/dL (12.0-16.0); LYMPHOCYTES # (AUTO) 1.5 10^3/uL (1.5-3.5); LYMPHOCYTES % (AUTO) 21.7 %; MEAN CORPUSCULAR HEMOGLOBIN 28.6 pg (27.0-31.0); MEAN CORPUSCULAR HGB CONC 29.6 g/dL (32.0-36.0); MEAN CORPUSCULAR VOLUME 96.6 fL (81.0-99.0); MEAN PLATELET VOLUME 9.9 fL (7.9-10.8); MONOCYTES # (AUTO) 0.4 10^3/uL (0.0-1.0); NEUTROPHILS # (AUTO) 4.7 10^3/uL (1.5-6.6); NEUTROPHILS % (AUTO) 67.7 %; PLT - PLATELET COUNT 280 10^3/uL (130-450); RED BLOOD COUNT 3.22 10^6/uL (4.20-5.40); RED CELL DISTRIBUTION WIDTH 14.7 % (12.0-15.0); WHITE BLOOD COUNT 6.9 x10^3/uL (4.8-10.8)
[2019-11-16 06:03] LABS: ALBUMIN 2.6 g/dL (3.2-5.5); ALBUMIN/GLOBULIN RATIO 0.8 (1.0-2.2); ALKALINE PHOSPHATASE 116 IU/L (42-121); ALT ALANINE AMINOTRANSFERASE < 10 IU/L (10-60); AST ASPARTATE AMINOTRANSFERASE < 10 IU/L (10-42); BILIRUBIN,TOTAL 0.6 mg/dL (0.2-1.0); BUN - BLOOD UREA NITROGEN 18 mg/dL (6-20); CALCIUM 8.8 mg/dL (8.5-10.3); CARBON DIOXIDE - CO2 21 mmol/L (21-32); CHLORIDE 118 mmol/L (101-111); GLUCOSE 73 mg/dL (70-100); MAGNESIUM 2.3 mg/dL (1.7-2.8); PHOSPHORUS 3.4 mg/dL (2.5-4.6); SODIUM 143 mmol/L (135-145); TOTAL PROTEIN 5.7 g/dL (6.7-8.2)
[2019-11-16] MEDS: LEVOTHYROXINE 25 MCG TABLET PO SCH (06:42)
[2019-11-16] MEDS: PANTOPRAZOLE 40 MG TABLET PO SCH (06:42)
[2019-11-16] MEDS: oxyCODONE 5 MG TABLET PO PRN ×2 (06:42→16:10)
[2019-11-16] MEDS: MIN OIL/DIMETHICON/COCONUT OIL 92 GM TUBE TOP PRN (06:45)
[2019-11-16] MEDS ORDERED: POTASSIUM CHLORIDE 20 MEQ TABLET PO ONE (07:40)
[2019-11-16] MEDS: VENLAFAXINE 37.5 MG TABLET PO SCH ×2 (08:51→21:22)
[2019-11-16] MEDS: METOPROLOL SUCCINATE 50 MG TABLET PO SCH (08:51)
[2019-11-16] MEDS: LACTOBACILLUS RHAMNOSUS GG CAPSULE PO SCH (08:51)
[2019-11-16] MEDS: MORPHINE SULFATE ER 30 MG TABLET PO SCH ×2 (08:51→21:22)
[2019-11-16] MEDS: NYSTATIN POWDER 15 GM TOP SCH ×2 (08:52→21:26)
[2019-11-16] MEDS: gemfibroziL 600 MG TABLET PO SCH ×2 (08:52→21:22)
[2019-11-16] MEDS: cefTRIAXone 1 GM in SODIUM CHLORIDE 0.9% MINIBAG 100 ML IV SCH (08:52)
[2019-11-16] MEDS: LITHIUM 150 MG CAPSULE PO SCH (08:53)
[2019-11-16] MEDS: HEPARIN 5,000 UNIT/ML VIAL SUBQ SCH ×2 (08:53→21:32)
--- NOTE | 2019-11-16 10:30 | PROVIDER PROGRESS NOTE ---
Assessment/Plan - Problem List (1) VICKIE (acute kidney injury) Assessment/Plan: Patient Report she feels better. Creatinine is 2.0, Improved. Her baseline creatinine is 1.5-1.8. We will continue intravenous hydration, continue laboratory tester (2) UTI (urinary tract infection) Urinalysis indicate patient has urinary tract infection, urine culture is pe nding. Continue antibiotics until culture and sensitivities done (3) Hypertension Conclusion/Plan: stable, will resume home BP meds after pharmacy confirm (4) Hypothyroidism TSH Is normal, continue home synthyroid (5) Diabetes mellitus type 2, diet-controlled A1c 5.7 so patient has no diabetic, right now is controlled (6) Bipolar disorder Conclusion/Plan: The serum lithium concentration is the therapeutic range. continue home 300 mg lithium daily per pharmacy, resume Risperdal [place] level was in the therapeutic range at 0.96 (7) Hyperlipidemia Conclusion/Plan: will resume gemfibrozil After the pharmacy confirm (8) Chronic back pain Conclusion/Plan: Will resume home p.o. morphine and oxycodone as needed. (9) Hx of deep venous thrombosis Conclusion/Plan: Patient has been on Xarelto in the past but no longer takes it. SCDs. Heparin 5000 units subcu twice daily. (10) Anxiety disorder Conclusion/Plan: pt take lorazepam in home, will resume After the pharmacy confirm (11)weakness Patient reported she feel better on today, we will continue physical therapist and occupational therapist with evaluation and treatment for patient (12)anemia HGB is 9.2 today. Patient has a chronic anemia plus chronic kidney disease. Patient denies black stool or GI bleed. We will do anemia study, at the meantime I will ask the nurse send stool for occult study to r/o GI bleed. - Current Meds Current Meds: Current Medications Generic Name Dose Route Start Last Admin Trade Name Freq PRN Reason Stop Dose Admin Gabapentin 100 mg 11/15/19 21:00 11/15/19 21:43 Neurontin PO 100 mg QPM JARETT Administration Gemfibrozil 600 mg 11/15/19 21:00 11/16/19 08:52 Lopid PO 600 mg BID JARETT Administration Heparin Sodium (Porcine) 5,000 unit 11/14/19 21:00 11/16/19 08:53 SUBQ 5,000 unit BID JARETT Administration Ceftriaxone Sodium 1 gm/ 100 mls @ 200 mls/hr 11/15/19 09:00 11/16/19 09:22 Sodium Chloride IV Infused DAILY JARETT Infusion Lactobacillus Rhamnosus 1 cap 11/15/19 09:00 11/16/19 08:51 Culturelle PO 1 cap DAILY JARETT Administration Levothyroxine Sodium 50 mcg 11/16/19 07:00 11/16/19 06:42 Synthroid PO 50 mcg QDAC JARETT Administration [place] Carbonate 300 mg 11/15/19 11:00 11/16/19 08:53 PO 300 mg DAILY JARETT Administration Metoprolol Succinate 50 mg 11/16/19 09:00 11/16/19 08:51 Toprol Xl PO 50 mg DAILY JARETT Administration Mineral Oil 1 applic 11/15/19 05:08 11/16/19 06:45 Cavilon TOP 1 applic PRN PRN Administration Skin Care Morphine Sulfate 30 mg 11/15/19 09:00 11/16/19 08:51 Ms Contin PO 30 mg BID JARETT Administration Nystatin 1 applic 11/15/19 09:00 11/16/19 08:52 Nystop TOP 1 applic BID JARETT Administration Oxycodone HCl 10 mg 11/15/19 08:14 11/16/19 06:42 Roxicodone PO 10 mg TID PRN Administration Breakthrough Pain Pantoprazole Sodium 40 mg 11/15/19 07:00 11/16/19 06:42 Protonix PO 40 mg QDAC JARETT Administration Risperidone 1 mg 11/15/19 21:00 11/15/19 21:43 Risperdal PO 1 mg QPM JARETT Administration Sodium Chloride 10 ml 11/14/19 20:27 11/14/19 21:24 Normal Saline Flush 0.9% IVP 10 ml PRN PRN Administration NEEDED PER PROVIDER ORDERS Sodium Chloride 10 ml 11/15/19 01:00 11/16/19 09:07 Normal Saline Flush 0.9% IVP Not Given 0100,0900,1700 JARETT Venlafaxine HCl 75 mg 11/15/19 21:00 11/16/19 08:51 Effexor PO 75 mg BID JARETT Administration - Lab Result Fish Bone Diagrams: 11/16/19 05:00 11/16/19 05:00 - Additional Planning My Orders: My Active Orders 11/15/19 11:00 [place] 300 mg PO DAILY 11/15/19 Lunch Carb-controlled Diet [DIET] 11/15/19 18:59 LORazepam [Ativan] 0.5 mg PO BID PRN 11/15/19 21:00 Gabapentin [Neurontin] 100 mg PO QPM Venlafaxine [Effexor] 75 mg PO BID gemfibroziL [Lopid] 600 mg PO BID risperiDONE [RisperDAL] 1 mg PO QPM 11/16/19 07:00 Levothyroxine [Synthroid] 50 mcg PO QDAC 11/16/19 07:41 Sodium Chloride 0.9% [Normal Saline 0.9%] 1,000 ml IV 100 mls/hr 11/16/19 09:00 Metoprolol Succinate [Toprol Xl] 50 mg PO DAILY Subjective - Subjective Patient Reports: Feeling Better Objective Vital Signs: Vital Signs - 24 hr 11/15/19 11/15/19 11/16/19 11:40 16:00 00:28 Temperature 36.5 C 37.0 C Heart Rate 68 Heart Rate [ 71 83 Brachial] Respiratory 18 18 18 Rate Blood Pressure 149/81 H 149/63 H [Right Brachial artery] O2 Saturation 98 95 11/16/19 11/16/19 05:11 07:45 Temperature 37 C 37.1 C Heart Rate 83 Heart Rate [ 94 Brachial] Respiratory 18 18 Rate Blood Pressure 123/73 [Right Brachial artery] O2 Saturation 95 95 Oxygen O2 Source [Without Activity] Room air O2 Source Room air I&O (Last 24 Hrs): Intake and Output Totals x24h 11/14/19 11/15/19 11/16/19 23:59 23:59 23:59 Intake Total 6526.958 5471.167 1605.333 Output Total 1400 Balance 0358.925 1567.167 1605.333 General: Alert, Oriented x3, No acute distress HEENT: Atraumatic Neck: Supple Lymphatic: no adenopathy Neuro: Alert, Non Focal Cardiovascular: Regular rate, Normal S1, Normal S2 Respiratory: Chest non-tender, No respiratory distress, Breath sounds nml Abdomen: Normal bowel sounds, Soft, No tenderness Extremities: Normal pulses - Results Results: Laboratory Results WBC 6.9 x10^3/uL (4.8-10.8) 11/16/19 05:00 RBC 3.22 10^6/uL (4.20-5.40) L 11/16/19 05:00 Hgb 9.2 g/dL (12.0-16.0) L 11/16/19 05:00 Hct 31.1 % (37.0-47.0) L 11/16/19 05:00 MCV 96.6 fL (81.0-99.0) 11/16/19 05:00 MCH 28.6 pg (27.0-31.0) 11/16/19 05:00 MCHC 29.6 g/dL (32.0-36.0) L 11/16/19 05:00 RDW 14.7 % (12.0-15.0) 11/16/19 05:00 Plt Count 280 10^3/uL (130-450) 11/16/19 05:00 MPV 9.9 fL (7.9-10.8) 11/16/19 05:00 Neut # (Auto) 4.7 10^3/uL (1.5-6.6) 11/16/19 05:00 Lymph # (Auto) 1.5 10^3/uL (1.5-3.5) 11/16/19 05:00 [place] # (Auto) 0.4 10^3/uL (0.0-1.0) 11/16/19 05:00 Eos # (Auto) 0.3 10^3/uL (0.0-0.7) 11/16/19 05:00 Baso # (Auto) 0.0 10^3/uL (0.0-0.1) 11/16/19 05:00 Absolute Nucleated RBC 0.00 x10^3/uL 11/16/19 05:00 Nucleated RBC % 0.0 /100WBC 11/16/19 05:00 PT 16.0 secs (9.9-12.6) H 11/15/19 05:30 INR 1.4 (0.8-1.2) H 11/15/19 05:30 Sodium 143 mmol/L (135-145) 11/16/19 05:00 Potassium 3.3 mmol/L (3.5-5.0) L 11/16/19 05:00 Chloride 118 mmol/L (101-111) H 11/16/19 05:00 Carbon Dioxide 21 mmol/L (21-32) 11/16/19 05:00 Anion Gap 4.0 (6-13) L 11/16/19 05:00 BUN 18 mg/dL (6-20) 11/16/19 05:00 Creatinine 2.0 mg/dL (0.4-1.0) H 11/16/19 05:00 Estimated GFR (MDRD) 25 (>89) L 11/16/19 05:00 Glucose 73 mg/dL (70-100) 11/16/19 05:00 Glycated Hemoglobin 5.7 % (4.6-6.2) 11/15/19 05:30 Estim Average Glucose 117 (70-100) H 11/15/19 05:30 Calcium 8.8 mg/dL (8.5-10.3) 11/16/19 05:00 Phosphorus 3.4 mg/dL (2.5-4.6) 11/16/19 05:00 Magnesium 2.3 mg/dL (1.7-2.8) 11/16/19 05:00 Total Bilirubin 0.6 mg/dL (0.2-1.0) 11/16/19 05:00 AST < 10 IU/L (10-42) L 11/16/19 05:00 ALT < 10 IU/L (10-60) L 11/16/19 05:00 Alkaline Phosphatase 116 IU/L (42-121) 11/16/19 05:00 Total Protein 5.7 g/dL (6.7-8.2) L 11/16/19 05:00 Albumin 2.6 g/dL (3.2-5.5) L 11/16/19 05:00 Globulin 3.1 g/dL (2.1-4.2) 11/16/19 05:00 Albumin/Globulin Ratio 0.8 (1.0-2.2) L 11/16/19 05:00 Lipase 27 U/L (22-51) 11/14/19 19:28 TSH 3.02 uIU/mL (0.34-5.60) 11/16/19 05:00 Urine Color YELLOW 11/14/19 19:48 Urine Clarity CLEAR (CLEAR) 11/14/19 19:48 Urine pH 6.0 PH (5.0-7.5) 11/14/19 19:48 Ur Specific [place] 1.010 (1.002-1.030) 11/14/19 19:48 Urine Protein TRACE mg/dL (NEGATIVE) 11/14/19 19:48 Urine Glucose (UA) NEGATIVE mg/dL (NEGATIVE) 11/14/19 19:48 Urine Ketones NEGATIVE mg/dL (NEGATIVE) 11/14/19 19:48 Urine Occult Blood NEGATIVE (NEGATIVE) 11/14/19 19:48 Urine Nitrite POSITIVE (NEGATIVE) H 11/14/19 19:48 Urine Bilirubin NEGATIVE (NEGATIVE) 11/14/19 19:48 Urine Urobilinogen 0.2 (NORMAL) E.U./dL (NORMAL) 11/14/19 19:48 Ur Leukocyte Esterase MODERATE (NEGATIVE) H 11/14/19 19:48 Urine RBC None Seen /HPF (0-5) 11/14/19 19:48 Urine WBC >25 /HPF (0-5) H 11/14/19 19:48 Urine WBC Clumps PRESENT 11/14/19 19:48 Ur Squamous Epith Cells NONE SEEN (<= Few) 11/14/19 19:48 Urine Bacteria Rare /HPF (None Seen) 11/14/19 19:48 Ur Microscopic Review INDICATED 11/14/19 19:48 Urine Culture Comments INDICATED 11/14/19 19:48 Last Dose Date UNKNOWN 11/14/19 20:47 Last Dose Time UNKNOWN 11/14/19 20:47 [place] 0.96 mmol/L 11/14/19 20:47 - Procedures Procedures: Procedures COLONOSCOPY (01/09/13) Sepsis Event Note (H) - Evaluation Current Stage of Sepsis: Ruled out ABX Reporting Has patient been on IV antibiotics over the past 48 hours?: Yes Current Medications - Current Medications Current Medications: Active Medications Acetaminophen (Tylenol) 650 mg PO Q4HR PRN PRN Reason: Pain 1 to 4 Albuterol () 2.5 mg INH RTQ4H PRN PRN Reason: Wheezing Albuterol/Ipratropium (Duoneb) 3 ml INH RTQID PRN PRN Reason: Shortness of Air/Wheezing Gabapentin (Neurontin) 100 mg PO QPM [facility] Last Admin: 11/15/19 21:43 Dose: 100 mg Documented by: Gemfibrozil (Lopid) 600 mg PO BID [facility] Last Admin: 11/16/19 08:52 Dose: 600 mg Documented by: Heparin Sodium (Porcine) () 5,000 unit SUBQ BID [facility] Last Admin: 11/16/19 08:53 Dose: 5,000 unit Documented by: Ceftriaxone Sodium 1 gm/ (Sodium Chloride) 100 mls @ 200 mls/hr IV DAILY [facility] Last Infusion: 11/16/19 09:22 Dose: Infused Documented by: Sodium Chloride (Normal Saline 0.9%) 1,000 mls @ 100 mls/hr IV .Q10H [facility] Stop: 11/17/19 03:39 Lactobacillus Rhamnosus (Culturelle) 1 cap PO DAILY [facility] Last Admin: 11/16/19 08:51 Dose: 1 cap Documented by: Levothyroxine Sodium (Synthroid) 50 mcg PO QDAC [facility] Last Admin: 11/16/19 06:42 Dose: 50 mcg Documented by: [place] Carbonate () 300 mg PO DAILY [facility] Last Admin: 11/16/19 08:53 Dose: 300 mg Documented by: Lorazepam (Ativan) 0.5 mg PO BID PRN PRN Reason: Anxiety Metoprolol Succinate (Toprol Xl) 50 mg PO DAILY [facility] Last Admin: 11/16/19 08:51 Dose: 50 mg Documented by: Mineral Oil (Cavilon) 1 applic TOP PRN PRN PRN Reason: Skin Care Last Admin: 11/16/19 06:45 Dose: 1 applic Documented by: Morphine Sulfate (Ms Contin) 30 mg PO BID [facility] Last Admin: 11/16/19 08:51 Dose: 30 mg Documented by: Nystatin (Nystop) 1 applic TOP BID [facility] Last Admin: 11/16/19 08:52 Dose: 1 applic Documented by: Oxycodone HCl (Roxicodone) 10 mg PO TID PRN PRN Reason: Breakthrough Pain Last Admin: 11/16/19 06:42 Dose: 10 mg Documented by: Pantoprazole Sodium (Protonix) 40 mg PO QDAC [facility] Last Admin: 11/16/19 06:42 Dose: 40 mg Documented by: Risperidone (Risperdal) 1 mg PO QPM [facility] Last Admin: 11/15/19 21:43 Dose: 1 mg Documented by: Sodium Chloride (Normal Saline Flush 0.9%) 10 ml IVP PRN PRN PRN Reason: NEEDED PER PROVIDER ORDERS Last Admin: 11/14/19 21:24 Dose: 10 ml Documented by: Sodium Chloride (Normal Saline Flush 0.9%) 10 ml IVP 0100,0900,1700 [facility] Last Admin: 11/16/19 09:07 Dose: Not Given Documented by: Throat Lozenges (Cepacol) 1 lozenge MM Q2HR PRN PRN Reason: Throat pain Venlafaxine HCl (Effexor) 75 mg PO BID [facility] Last Admin: 11/16/19 08:51 Dose: 75 mg Documented by: Morphine Sulfate [Morphine Sulfate ER] 30 mg PO BID 11/15/19 Omeprazole 20 mg PO DAILY 11/15/19
[2019-11-16 11:23] LABS: ABSOLUTE RETICS # AUTO 0.055 10^6/uL (0.020-0.110); RED BLOOD COUNT 3.31 10^6/uL (4.20-5.40)
[2019-11-16 11:38] LABS: % IRON SATURATION 19 % (20-50); IRON 58 ug/dL (28-170); TOTAL IRON BINDING CAPACITY 311 ug/dL (250-450); TRANSFERRIN 222 mg/dL (192-382)
[2019-11-16 11:58] LABS: FERRITIN 32.5 ng/mL (11.0-306.8)
[2019-11-16] MEDS: risperiDONE 1 MG TABLET PO SCH (21:22)
[2019-11-16] MEDS: GABAPENTIN 100 MG CAPSULE PO SCH (21:22)
[2019-11-17] MEDS: LORazepam 0.5 MG TABLET PO PRN ×2 (00:14→19:06)
[2019-11-17] MEDS: SODIUM CHLORIDE FLUSH 0.9% 10 ML SYRINGE IVP SCH ×3 (02:31→16:15)
[2019-11-17 05:06] LABS: BASOPHILS % (AUTO) 0.5 %; EOSINOPHILS # (AUTO) 0.4 10^3/uL (0.0-0.7); EOSINOPHILS % (AUTO) 4.8 %; HGB - HEMOGLOBIN 9.2 g/dL (12.0-16.0); LYMPHOCYTES # (AUTO) 1.7 10^3/uL (1.5-3.5); LYMPHOCYTES % (AUTO) 21.2 %; MEAN CORPUSCULAR HEMOGLOBIN 28.6 pg (27.0-31.0); MEAN CORPUSCULAR HGB CONC 29.4 g/dL (32.0-36.0); MEAN CORPUSCULAR VOLUME 97.2 fL (81.0-99.0); MEAN PLATELET VOLUME 9.7 fL (7.9-10.8); MONOCYTES # (AUTO) 0.5 10^3/uL (0.0-1.0); NEUTROPHILS # (AUTO) 5.4 10^3/uL (1.5-6.6); PLT - PLATELET COUNT 271 10^3/uL (130-450); RED BLOOD COUNT 3.22 10^6/uL (4.20-5.40); RED CELL DISTRIBUTION WIDTH 14.7 % (12.0-15.0); WHITE BLOOD COUNT 8.1 x10^3/uL (4.8-10.8)
[2019-11-17 05:30] LABS: ALBUMIN 2.7 g/dL (3.2-5.5); ALBUMIN/GLOBULIN RATIO 0.9 (1.0-2.2); ALKALINE PHOSPHATASE 113 IU/L (42-121); ALT ALANINE AMINOTRANSFERASE < 10 IU/L (10-60); AST ASPARTATE AMINOTRANSFERASE < 10 IU/L (10-42); BILIRUBIN,TOTAL < 0.2 mg/dL (0.2-1.0); BUN - BLOOD UREA NITROGEN 14 mg/dL (6-20); CALCIUM 8.9 mg/dL (8.5-10.3); CARBON DIOXIDE - CO2 19 mmol/L (21-32); CHLORIDE 118 mmol/L (101-111); CREATININE 1.7 mg/dL (0.4-1.0); GLUCOSE 73 mg/dL (70-100); SODIUM 143 mmol/L (135-145); TOTAL PROTEIN 5.6 g/dL (6.7-8.2)
[2019-11-17] MEDS: LEVOTHYROXINE 25 MCG TABLET PO SCH (06:18)
[2019-11-17] MEDS: PANTOPRAZOLE 40 MG TABLET PO SCH (06:18)
[2019-11-17] MEDS: cefTRIAXone 1 GM in SODIUM CHLORIDE 0.9% MINIBAG 100 ML IV SCH (09:08)
[2019-11-17] MEDS: MORPHINE SULFATE ER 30 MG TABLET PO SCH ×2 (09:09→20:21)
[2019-11-17] MEDS: LITHIUM 150 MG CAPSULE PO SCH (09:11)
[2019-11-17] MEDS: METOPROLOL SUCCINATE 50 MG TABLET PO SCH (09:11)
[2019-11-17] MEDS: LACTOBACILLUS RHAMNOSUS GG CAPSULE PO SCH (09:11)
[2019-11-17] MEDS: HEPARIN 5,000 UNIT/ML VIAL SUBQ SCH (09:12)
[2019-11-17] MEDS: VENLAFAXINE 37.5 MG TABLET PO SCH ×2 (09:14→20:21)
[2019-11-17] MEDS: gemfibroziL 600 MG TABLET PO SCH ×2 (09:14→20:21)
[2019-11-17] MEDS: NYSTATIN POWDER 15 GM TOP SCH (09:15)
--- NOTE | 2019-11-17 10:40 | Discharge Plan ---
Discharge Plan Problem Reviewed?: Yes Disposition: 06 Home Health Service Condition: Stable Diet: Regular Activity Restrictions: Activity as Tolerated Shower Restrictions: No (fall precaution) Instruction Topics: Injury Acute Kidney Dc, Dehydration, ED Fall Dizziness Weakn Balance Health Concerns: acute kidney injury and dehydration, weakness Plan of Treatment: you presented very hydration in the admission, you was given Intravenous IV fluids. Your kidney function returned to your base line. Advised to you keep hydration and Drink enough water in the home. Physical therapist and occupational therapist is arranged for your strength training, and training for prevention of fall. Care Goals: stabilization and improvement of your medical conditions. Assessment: discussed the care plan with you, you understood and agreed. Additional Instructions or Follow Up instructions: You may followup with your PCP in one to two weeks. Should yous symptoms return or worsen, you may present ER or call 911 for help. Follow-Up Care: Home Health - PT, Home Health - OT No Smoking: If you smoke, Please STOP! Call for help. Follow-up with: Felicia Daniel DO [Primary Care Provider] -
--- NOTE | 2019-11-17 10:55 | DISCHARGE SUMMARY ---
Discharge Summary Admit Date: 11/14/19 Discharge Date: 11/17/19 Discharging Provider: Dalton Motta Primary Care Provider: Dr. Maria Ines Daniel Condition at Discharge: Stable Discharge Disposition: Home Health Service Discharge Facility Name: home - DIAGNOSES Discharge Diagnoses with Status of Each Condition: (1) VICKIE (acute kidney injury) resolved. Creatinine is as her baseline. advise pt keep hydration and followup her PCP and supervisor speech continue management. (2) UTI (urinary tract infection) resolved. UA analysis reveals no bacterial growth. (3) Hypertension stable/chronic (4) Hypothyroidism stable/chronic (5) Diabetes mellitus type 2, diet-controlled A1c 5.7, resolved, and diet-control (6) Bipolar disorder stable/chronic (7) Hyperlipidemia stable/chronic (8) Chronic back pain stable/chronic (9) Hx of deep venous thrombosis stable/chronic (10) Anxiety disorder stable/chronic (11)weakness Improved. pt had PT/OT evaluation and treatment. home health PT/OT was arranged for pt (12)anemia stable/chronic, occult blood stool test was negative. - HPI History of Present Illness: refer from 's HPI on 11/14/2019 Patient is a 69-year-old female who presented to the ED with complaint of progressive weakness. She had seen her primary care physician a few days ago with complains of burning with urination, increased frequency and increased odor to urine. A urine analysis was done and it was determined that she had a urinary tract infection. She was prescribed. Pyridium and Macrobid. It is unclear how compliant she had been with the medication. However due to her progressive weakness she came to the emergency room for evaluation. In the emergency room work-up included a BMP which showed a creatinine of 2.7. Her urine analysis was also strongly indicative of urinary tract infection. As a result she was presented for admission. At the time of my exam she denied chest pain, dyspnea, nausea or vomiting. She reports some lower abdominal pain. She reports an orange color to her urine. This is likely due to Pyridium. At home she gets around using a walker and a cane. Her past medical history includes bipolar disorder, hypertension, history of DVT, anxiety, depression, history of diabetes mellitus diet controlled and chronic back pain. - HOSPITAL COURSE Hospital Course: pt was admitted for weakness, urinary burning sensation. pt was found to have VICKIE, possible UTI and hydration as well. pt was initially was treated with antibiotics, UA analysis indicated pt might have UTI. the antibiotics was stopped because of UA culture reveal no bacterial growth. pt was given IV fluid and daily lab monitor. pt's VICKIE was resolved. Creatinine was returned to her baseline. pt had PT/OT evaluation and treatment. Home health PTOT was recommended for pt. and pt was arranged for home health PT/OT by social media editor. In the d/c day, pt report she had three times loose stool. C.diff test was negative. pt was d/c at stable conditions. - ALLERGIES Allergies/Adverse Reactions: Allergies Allergy/AdvReac Type Severity Reaction Status Date / Time NSAIDS (Non-Steroidal Allergy Mild Hives Verified 11/14/19 19:09 Anti-Inflamma lisinopril Allergy Unknown Verified 11/14/19 19:09 Sulfa (Sulfonamide AdvReac Mild Rash Verified 11/14/19 19:09 Antibiotics) - MEDICATIONS Home Medications: Ambulatory Orders Medication Instructions Recorded Confirmed Oxybutynin [Oxytrol For Women] 1 each TD Q3D #30 patch.td.4 07/16/19 11/15/19 Famotidine [Pepcid] 20 mg PO BID #60 tablet 07/17/19 11/15/19 Gabapentin 100 mg PO QPM #30 07/17/19 11/15/19 LORazepam [Ativan] 0.5 mg PO BID PRN #60 tablet 07/17/19 11/15/19 Levothyroxine Sodium 50 mcg PO QDAC #30 07/17/19 11/15/19 [place] Carbonate 300 mg PO DAILY #30 07/17/19 11/15/19 Magnesium Oxide [Mag Ox] 400 mg PO BIDWM #60 tablet 07/17/19 11/15/19 Metoprolol Succinate [Toprol Xl] 50 mg PO DAILY #30 07/17/19 11/15/19 Oxycodone HCl 10 mg PO TID PRN #30 07/17/19 11/15/19 Venlafaxine HCl 75 mg PO BID #60 07/17/19 11/15/19 gemfibroziL [Gemfibrozil] 600 mg PO BID #60 07/17/19 11/15/19 risperiDONE [Risperdal] 1 mg PO QPM #30 07/17/19 11/15/19 Morphine Sulfate [Morphine Sulfate 30 mg PO BID 11/15/19 11/15/19 ER] Omeprazole 20 mg PO DAILY 11/15/19 11/15/19 - PHYSICAL EXAM AT DISCHARGE General Appearance: positive: No acute distress, Alert. negative: Lethargic Eyes Bilateral: positive: Normal inspection, PERRL, No lid inflammation ENT: positive: ENT inspection nml, Pharynx nml, No signs of dehydration. negative: Purulent nasal drainage, Dry mucous membranes Neck: positive: Nml inspection, Thyroid nml, No JVD, Trachea midline. negative: Thyromegaly, Stiff neck, Tracheal deviation Respiratory: positive: Chest non-tender, No respiratory distress. negative: Wheezes, Rales, Rhonchi Cardiovascular: positive: Regular rate & rhythm, No murmur, No gallop. negative: Tachycardia, Bradycardia, Systolic murmur, Diastolic murmur Peripheral Pulses: positive: 2+ Abdomen: positive: Non-tender, No organomegaly, Nml bowel sounds, No distention. negative: Tenderness, Guarding, Rebound Back: positive: Nml inspection. negative: CVA tenderness (R), CVA tenderness (L) Skin: positive: Color nml, No rash, Warm, Dry. negative: Cyanosis, Diaphoresis, Pallor Extremities: positive: Non-tender, Full ROM, Nml appearance. negative: Calf tenderness, Xiomy's sign/cords Neurologic/Psychiatric: positive: Oriented x3, Motor nml, Sensation nml. n egative: Weakness, Sensory loss, Facial droop, Slurred/abnml speech, Depressed mood/affect - LABS Result Diagrams: 11/17/19 04:50 11/17/19 04:50 - SEPSIS Current Stage of Sepsis: Ruled out - FOLLOW UP Follow Up: you presented very hydration in the admission, you was given Intravenous IV fluids. Your kidney function returned to your base line. Advised to you keep hydration and Drink enough water in the home. Physical therapist and occupational therapist is arranged for your strength training, and training for prevention of fall. You may followup with your PCP in one to two weeks. Should yous symptoms return or worsen, you may present ER or call 911 for help. - TIME SPENT Time Spent in Discharge (Minutes): 30
[2019-11-17] MEDS: oxyCODONE 5 MG TABLET PO PRN (16:14)
[2019-11-17] MEDS: GABAPENTIN 100 MG CAPSULE PO SCH (20:21)
[2019-11-17] MEDS: risperiDONE 1 MG TABLET PO SCH (20:21)
[2019-11-17 20:29] VITALS: BP 153/73
== END 2019-11-17 20:30 | disposition home health service (06) | DRG 683 ==
LOC: EDUNIT# → ED 19:03 → MS2 20:27
PROVIDERS: ADMIT Internal Medicine; ATTEND Nurse Practitioner Gerontology
DX: N17.9 Acute kidney failure, unspecified (principal); N12 Tubulo-interstitial nephritis, not specified as acute or chronic; T36.96XA Underdosing of unspecified systemic antibiotic, initial encounter; F17.200 Nicotine dependence, unspecified, uncomplicated; E11.9 Type 2 diabetes mellitus without complications; N30.00 Acute cystitis without hematuria; R53.1 Weakness; N18.9 Chronic kidney disease, unspecified; J44.9 Chronic obstructive pulmonary disease, unspecified; K21.9 Gastro-esophageal reflux disease without esophagitis; I12.9 Hypertensive chronic kidney disease with stage 1 through stage 4 chronic kidney disease, or unspecified chronic kidney disease; E03.9 Hypothyroidism, unspecified; E78.00 Pure hypercholesterolemia, unspecified; E11.22 Type 2 diabetes mellitus with diabetic chronic kidney disease; E86.0 Dehydration; F31.9 Bipolar disorder, unspecified; F41.9 Anxiety disorder, unspecified; G89.29 Other chronic pain; M54.5 Low back pain; Z91.128 Patient's intentional underdosing of medication regimen for other reason; R19.5 Other fecal abnormalities; D64.9 Anemia, unspecified; Z79.890 Hormone replacement therapy; Z79.899 Other long term (current) drug therapy; Z86.718 Personal history of other venous thrombosis and embolism; Z87.891 Personal history of nicotine dependence; Z88.2 Allergy status to sulfonamides
CPT/HCPCS: 36415; 51701; 80053; 80178; 81001; 82272; 82607; 82728; 83036; 83540; 83615; 83690; 83735; 84100; 84443; 84466; 85025; 85045; 85610; 87086; 87493; 96365; 97116; 97161; 97166; 99284; 99285; A6250; A9270; 81003

== ENCOUNTER 2019-11-22 12:10 | Outpatient (CLI) | payer MEDICARE, MEDICAID | END 2019-11-22 23:59 | disposition EMS.NT | LOC: EMS 12:10 | PROVIDERS: ATTEND Surgery | DX: R53.1 Weakness (principal); Z53.29 Procedure and treatment not carried out because of patient's decision for other reasons ==

== ENCOUNTER 2019-12-02 17:44 | Inpatient (IN) | payer MEDICARE, MEDICAID ==
[2019-12-02] MEDS ORDERED: SODIUM CHLORIDE 0.9% 1,000 ML IV STA ×2 (17:55→19:07)
--- NOTE | 2019-12-02 17:57 | ED Physician Documentation ---
PD HPI ALTERED MENTAL STATUS - Stated complaint Stated Complaint: AMS - Chief complaint Chief Complaint: Neuro - History obtained from History obtained from: Patient, EMS - Additional information Additional information: 69-year-old woman presents from home by ambulance for altered mental status. She was hospitalized a few days ago for encephalopathy associated with UTI, potentially also some polypharmacy issue on chronic pain medication. She was discharged home on antibiotics, it is not clear if she took them. Although the urine was positive in the emergency department subsequent urine culture was negative. She improved with fluids and antibiotics while in the hospital reportedly back to her baseline and went home. called ambulance today reportedly for altered mental status. Minimal history is available from the patient because she is quite altered. Review of Systems Unable to obtain: Confused PD PAST MEDICAL HISTORY - Past Medical History Cardiovascular: Hypertension, High cholesterol, Deep vein thrombosis, Murmur Respiratory: Asthma, COPD, Shortness of breath Neuro: None Endocrine/Autoimmune: Type 2 diabetes GI: GERD, Chronic constipation (Admit to [facility] for severe abdominal pain July [address] showed constipation, diverticulosis), Pancreatitis (Infected pancreatic pseudocyst with severe sepsis June 2016 and transfer to [place]. Due to acute cholecystitis. Had lap jacklyn. Readmitted July 2016 with infected loculated pancreatic pseudocyst.) : Incontinence, Chronic bladder infection (CT KUB done for recurrent UTIs December 2018 without stones, hydroureter, cyst seen in right upper pole. Left kidney with benign findings of calcification.) HEENT: None Psych: Anxiety, Bipolar disorder, Other Musculoskeletal: Osteoarthritis, Fatigue, Chronic back pain, Other Derm: None - Past Surgical History Past Surgical History: Yes General: EGD, Colonoscopy Ortho: Knee replacement, Spine surgery /COLOR CHECKER: section HEENT: Tonsil/Adenoidectomy - Present Medications Home Medications: Ambulatory Orders Medication Instructions Recorded Confirmed LORazepam [Ativan] 0.5 mg PO BID PRN #60 tablet 07/17/19 11/26/19 Levothyroxine Sodium 50 mcg PO QDAC #30 07/17/19 11/26/19 [place] Carbonate 300 mg PO DAILY #30 07/17/19 11/26/19 Metoprolol Succinate [Toprol Xl] 50 mg PO DAILY #30 07/17/19 11/26/19 Oxycodone HCl 10 mg PO TID PRN #30 07/17/19 11/26/19 Venlafaxine HCl 75 mg PO BID #60 07/17/19 11/26/19 gemfibroziL [Gemfibrozil] 600 mg PO BID #60 07/17/19 11/26/19 risperiDONE [Risperdal] 1 mg PO QPM #30 07/17/19 11/26/19 Morphine Sulfate [Morphine Sulfate 30 mg PO BID 11/15/19 11/26/19 ER] Omeprazole 20 mg PO DAILY 11/15/19 11/26/19 Cimetidine 400 mg PO BID 11/26/19 11/26/19 Gabapentin 100 - 200 mg PO QPM PRN 11/26/19 11/26/19 Nystatin Cream [Mycostatin Cream] 1 applic TOP BID #1 tube 11/28/19 cephALEXin [Keflex] 250 mg PO QID #16 capsule 11/28/19 - Allergies Allergies/Adverse Reactions: Allergies Allergy/AdvReac Type Severity Reaction Status Date / Time NSAIDS (Non-Steroidal Allergy Mild Hives Verified 12/02/19 17:50 Anti-Inflamma lisinopril Allergy Unknown Verified 12/02/19 17:50 Sulfa (Sulfonamide AdvReac Mild Rash Verified 12/02/19 17:50 Antibiotics) - Social History Does the pt smoke?: Yes Smoking Status: Current some day smoker Does the pt drink ETOH?: No Does the pt have substance abuse?: No - Immunizations Immunizations are current?: Yes Immunizations: TDAP >10years/unknown - POLST Patient has POLST: No POLST Status: Full Code PD ED PE NORMAL - Vitals Vital signs reviewed: Yes - General General: Other (She is alert and oriented to person and knows she is in the hospital, cannot name the date or year or specific circumstances of her being here.) - HEENT HEENT: Other (Small pupils with symmetric face dry mucous membranes) - Neck Neck: Supple, no meningeal sign, No bony TTP - Cardiac Cardiac: RRR, No murmur - Respiratory Respiratory: No respiratory distress, Clear bilaterally - Abdomen Abdomen: Normal bowel sounds, Soft, Non tender - Back Back: No CVA TTP, No spinal TTP - Derm Derm: Normal color, Warm and dry - Neuro Neuro: collar sewer 2-12 intact, No motor deficit, No sensory deficit, Normal speech, Other (She has peripheral asterixis without lateralizing signs) Eye Opening: To Voice Motor: Obeys Commands Verbal: Confused GCS Score: 13 Results - Vitals Vitals: Vital Signs - 24 hr 12/02/19 12/02/19 12/02/19 17:50 17:55 19:30 Temperature 37.0 C Heart Rate 70 69 59 L Respiratory 12 15 11 L Rate Blood Pressure 136/63 H 136/63 H 141/58 H O2 Saturation 88 L 96 98 Oxygen O2 Source [Without Activity] Room air O2 Source Nasal cannula - Labs Labs: Laboratory Tests 12/02/19 12/02/19 12/02/19 18:10 18:19 18:19 WBC 12.0 H RBC 3.49 L Hgb 10.1 L Hct 34.3 L MCV 98.3 MCH 28.9 MCHC 29.4 L RDW 15.4 H Plt Count 328 MPV 9.9 Neut # (Auto) 9.9 H Lymph # (Auto) 0.8 L [place] # (Auto) 0.8 Eos # (Auto) 0.4 Baso # (Auto) 0.0 Absolute Nucleated RBC 0.00 Nucleated RBC % 0.0 PT 14.1 H INR 1.3 H VBG pH VBG pCO2 VBG pO2 VBG HCO3 VBG Total CO2 VBG O2 Saturation VBG Base Excess Sodium Potassium Chloride Carbon Dioxide Anion Gap BUN Creatinine Estimated GFR (MDRD) Glucose Lactic Acid Calcium Total Bilirubin AST ALT Alkaline Phosphatase Ammonia Total Protein Albumin Globulin Albumin/Globulin Ratio Lipase Urine Color YELLOW Urine Clarity HAZY Urine pH 6.5 Ur Specific [place] <=1.005 Urine Protein NEGATIVE Urine Glucose (UA) NEGATIVE Urine Ketones NEGATIVE Urine Occult Blood TRACE-INTA Urine Nitrite NEGATIVE Urine Bilirubin NEGATIVE Urine Urobilinogen 0.2 (NORMAL) Ur Leukocyte Esterase MODERATE H Urine RBC 0-5 Urine WBC >25 H Ur Squamous Epith Cells FEW Squamous Urine Bacteria Few Ur Microscopic Review INDICATED Urine Culture Comments INDICATED Salicylates Urine Opiates Screen POSITIVE H Ur Oxycodone Screen NEGATIVE Urine Methadone Screen NEGATIVE Ur Propoxyphene Screen NEGATIVE Acetaminophen Ur Barbiturates Screen NEGATIVE Ur Tricyclics Screen NEGATIVE Ur Phencyclidine Scrn NEGATIVE Ur Amphetamine Screen NEGATIVE U Methamphetamines Scrn NEGATIVE U Benzodiazepines Scrn POSITIVE H Urine Cocaine Screen NEGATIVE U Cannabinoids Screen NEGATIVE Ethyl Alcohol 12/02/19 12/02/19 12/02/19 18:30 18:30 18:30 WBC RBC Hgb Hct MCV MCH MCHC RDW Plt Count MPV Neut # (Auto) Lymph # (Auto) [place] # (Auto) Eos # (Auto) Baso # (Auto) Absolute Nucleated RBC Nucleated RBC % PT INR VBG pH VBG pCO2 VBG pO2 VBG HCO3 VBG Total CO2 VBG O2 Saturation VBG Base Excess Sodium 142 Potassium 4.9 Chloride 104 Carbon Dioxide 27 Anion Gap 11.0 BUN 31 H Creatinine 3.0 H Estimated GFR (MDRD) 16 L Glucose 92 Lactic Acid 1.0 Calcium 9.4 Total Bilirubin 0.3 AST 13 ALT < 10 L Alkaline Phosphatase 146 H Ammonia 19.3 Total Protein 6.8 Albumin 3.2 Globulin 3.6 Albumin/Globulin Ratio 0.9 L Lipase 23 Urine Color Urine Clarity Urine pH Ur Specific [place] Urine Protein Urine Glucose (UA) Urine Ketones Urine Occult Blood Urine Nitrite Urine Bilirubin Urine Urobilinogen Ur Leukocyte Esterase Urine RBC Urine WBC Ur Squamous Epith Cells Urine Bacteria Ur Microscopic Review Urine Culture Comments Salicylates < 6.0 Urine Opiates Screen Ur Oxycodone Screen Urine Methadone Screen Ur Propoxyphene Screen Acetaminophen < 10 L Ur Barbiturates Screen Ur Tricyclics Screen Ur Phencyclidine Scrn Ur Amphetamine Screen U Methamphetamines Scrn U Benzodiazepines Scrn Urine Cocaine Screen U Cannabinoids Screen Ethyl Alcohol < 5.0 12/02/19 18:30 WBC RBC Hgb Hct MCV MCH MCHC RDW Plt Count MPV Neut # (Auto) Lymph # (Auto) [place] # (Auto) Eos # (Auto) Baso # (Auto) Absolute Nucleated RBC Nucleated RBC % PT INR VBG pH 7.303 L VBG pCO2 34.3 L VBG pO2 42.0 VBG HCO3 16.6 L VBG Total CO2 17.7 L VBG O2 Saturation 65.2 VBG Base Excess -8.9 L Sodium Potassium Chloride Carbon Dioxide Anion Gap BUN Creatinine Estimated GFR (MDRD) Glucose Lactic Acid Calcium Total Bilirubin AST ALT Alkaline Phosphatase Ammonia Total Protein Albumin Globulin Albumin/Globulin Ratio Lipase Urine Color Urine Clarity Urine pH Ur Specific [place] Urine Protein Urine Glucose (UA) Urine Ketones Urine Occult Blood Urine Nitrite Urine Bilirubin Urine Urobilinogen Ur Leukocyte Esterase Urine RBC Urine WBC Ur Squamous Epith Cells Urine Bacteria Ur Microscopic Review Urine Culture Comments Salicylates Urine Opiates Screen Ur Oxycodone Screen Urine Methadone Screen Ur Propoxyphene Screen Acetaminophen Ur Barbiturates Screen Ur Tricyclics Screen Ur Phencyclidine Scrn Ur Amphetamine Screen U Methamphetamines Scrn U Benzodiazepines Scrn Urine Cocaine Screen U Cannabinoids Screen Ethyl Alcohol - Rads (name of study) 1v chest Radiology: EMP read contemporaneously (NAD) PD MEDICAL DECISION MAKING - ED course ED course: 69-year-old woman bounces back from home with delirium, continued signs of UTI despite negative recent culture, worsened acute renal failure on chronic. She was administered IV fluids and Rocephin after blood cultures. She appears to have asterixis but ammonia level was negative. It is a judgment call as to whether or not the potential UTI should be treated. Her urine definitely has white cells and does not appear contaminated, that said note is made that the recent urine culture was no growth. She was administered Rocephin here. Spoke with Dr. Brewster for admission at 7:33 PM. Departure - Departure Disposition: 68 [facility] DC/Xfer Clinical Impression: VICKIE (acute kidney injury), Delirium, Tenuous home situation UTI (urinary tract infection) Qualifiers: Urinary tract infection type: site unspecified Hematuria presence: without hematuria Qualified Code(s): N39.0 - Urinary tract infection, site not specified Condition: Serious Discharge Date/Time: 12/02/19 20:06
[2019-12-02 18:18] LABS: MUDS CUTOFF CONCENTRATIONS CUTOFF CONC BELOW:
[2019-12-02 18:19] LABS: BILIRUBIN,URINE NEGATIVE (NEGATIVE); CLARITY,URINE HAZY (CLEAR); GLUCOSE, URINE (UA) NEGATIVE (NEGATIVE); KETONES,URINE (UA) NEGATIVE (NEGATIVE); LEUKOCYTE ESTERASE, URINE MODERATE (NEGATIVE); NITRITE,URINE NEGATIVE (NEGATIVE); OCCULT BLOOD,URINE TRACE-INTA (NEGATIVE); PH,URINE 6.5 PH (5.0-7.5); PROTEIN,URINE NEGATIVE (NEGATIVE); UROBILINOGEN,URINE 0.2 (NORMAL) E.U./dL (NORMAL)
[2019-12-02 18:32] LABS: BACTERIA,URINE Few /HPF (None Seen); RBC,URINE 0-5 /HPF (0-5); SQUAMOUS EPITHELIAL CELL,UR FEW Squamous (<= Few)
[2019-12-02 18:38] LABS: AMPHETAMINE SCREEN,URINE NEGATIVE (NEGATIVE); BENZODIAZEPINES SCREEN, URINE POSITIVE (NEGATIVE); COCAINE SCREEN URINE NEGATIVE (NEGATIVE); METHADONE SCREEN, URINE NEGATIVE (NEGATIVE); METHAMPHETAMINES SCREEN, URINE NEGATIVE (NEGATIVE); OPIATE SCREEN, URINE POSITIVE (NEGATIVE); TRICYCLIC ANTIDEPRESSANT,URINE NEGATIVE (NEGATIVE)
[2019-12-02 18:39] LABS: OXYCODONE SCREEN, URINE NEGATIVE (NEGATIVE); PROPOXYPHENE SCREEN, URINE NEGATIVE (NEGATIVE)
[2019-12-02 18:42] LABS: BASOPHILS % (AUTO) 0.3 %; EOSINOPHILS # (AUTO) 0.4 10^3/uL (0.0-0.7); EOSINOPHILS % (AUTO) 3.5 %; HGB - HEMOGLOBIN 10.1 g/dL (12.0-16.0); LYMPHOCYTES # (AUTO) 0.8 10^3/uL (1.5-3.5); LYMPHOCYTES % (AUTO) 6.3 %; MEAN CORPUSCULAR HEMOGLOBIN 28.9 pg (27.0-31.0); MEAN CORPUSCULAR HGB CONC 29.4 g/dL (32.0-36.0); MEAN CORPUSCULAR VOLUME 98.3 fL (81.0-99.0); MEAN PLATELET VOLUME 9.9 fL (7.9-10.8); MONOCYTES # (AUTO) 0.8 10^3/uL (0.0-1.0); MONOCYTES % (AUTO) 6.9 %; NEUTROPHILS # (AUTO) 9.9 10^3/uL (1.5-6.6); NEUTROPHILS % (AUTO) 82.6 %; PLT - PLATELET COUNT 328 10^3/uL (130-450); RED BLOOD COUNT 3.49 10^6/uL (4.20-5.40); RED CELL DISTRIBUTION WIDTH 15.4 % (12.0-15.0)
[2019-12-02 18:48] LABS: VBG PH 7.303 (7.31-7.41)
[2019-12-02 18:48] LABS: INR 1.3 (0.8-1.2); PT - PROTHROMBIN TIME 14.1 secs (9.9-12.6)
[2019-12-02 18:49] LABS: VBG BASE EXCESS -8.9 mmol/L (-2 - +2); VBG PCO2 34.3 mmHg (41-51); VBG TOTAL CO2 17.7 mmol/L (24-29)
[2019-12-02] MEDS ORDERED: cefTRIAXone 1 GM in SODIUM CHLORIDE 0.9% MINIBAG 100 ML IV STA (18:52)
[2019-12-02 18:59] LABS: ACETAMINOPHEN < 10 ug/mL (10-30); ALBUMIN 3.2 g/dL (3.2-5.5); ALBUMIN/GLOBULIN RATIO 0.9 (1.0-2.2); ALKALINE PHOSPHATASE 146 IU/L (42-121); ALT ALANINE AMINOTRANSFERASE < 10 IU/L (10-60); AST ASPARTATE AMINOTRANSFERASE 13 IU/L (10-42); BILIRUBIN,TOTAL 0.3 mg/dL (0.2-1.0); BUN - BLOOD UREA NITROGEN 31 mg/dL (6-20); CALCIUM 9.4 mg/dL (8.5-10.3); CARBON DIOXIDE - CO2 27 mmol/L (21-32); CHLORIDE 104 mmol/L (101-111); GLUCOSE 92 mg/dL (70-100); LIPASE 23 U/L (22-51); SALICYLATE < 6.0 mg/dL; SODIUM 142 mmol/L (135-145); TOTAL PROTEIN 6.8 g/dL (6.7-8.2)
--- NOTE | 2019-12-02 19:12 | XRAY Report ---
PROCEDURE: Chest 1 View X-Ray INDICATIONS: dyspnea TECHNIQUE: One view of the chest was acquired. COMPARISON: None. FINDINGS: Surgical changes and devices: None. Lungs and pleura: No pleural effusions or pneumothorax. Lungs are clear. Mediastinum: Mediastinal contours appear normal. Heart size is normal. Bones and chest wall: No suspicious bony lesions. Overlying soft tissues appear unremarkable. IMPRESSION: No acute disease. Reviewed by: Smooth Lloyd MD on 12/02/2019 7:11 PM PDT Approved by: Smooth Lloyd MD on 12/02/2019 7:11 PM PDT Station ID: [id number]
[2019-12-02] MEDS ORDERED: SODIUM CHLORIDE FLUSH 0.9% 10 ML SYRINGE IVP PRN (19:34)
--- NOTE | 2019-12-02 19:41 | HISTORY & PHYSICAL EXAMINATION ---
Chief Complaint - Chief Complaint Chief Complaint: encephalopathy, VICKIE History of Present Illness - Admitted From Admitted From:: [facility] ED - History Obtained From Records Reviewed: yes History obtained from: ED physician Exam Limitations: AMS - History of Present Illness HPI Comment/Other: Patient is a 69-year-old female who was brought to the ED via EMS after her called 911 stating that the patient appeared sleepier than usual. This is her third admission in the past 18 days all for the same reason. She was diagnosed with a urinary tract infection and has been on varied duration of antibiotic administration. However it is unclear if she is adherent to oral antibiotics at home. This is questionable because each time the patient presents to the ED work-up shows that she has acute kidney injury from what appears to be dehydration and possibly UTI. This time upon presentation her creatinine was 3.0. The patient is insistent on managing her pain medications at home. However there is concern that she is not able to manage it appropriately. I suspect her altered mental status upon presentation is also attributable to her pain medication use/abuse. At bedside she responds to her name and is barely able to tell me she is at [facility]. She is not able to give any other meaningful information. With significant prompting she is able to follow commands, but then readily falls back to sleep. She has intermittent twitching. History - Past Medical History Cardiovascular: reports: Hypertension, High cholesterol, Deep vein thrombosis, Murmur Respiratory: reports: Asthma, COPD, Shortness of breath Neuro: reports: None Endocrine/Autoimmune: reports: Type 2 diabetes GI: reports: GERD, Chronic constipation (Admit to [facility] for severe abdominal pain July [address] showed constipation, diverticulosis), Pancreatitis (Infected pancreatic pseudocyst with severe sepsis June 2016 and transfer to [place]. Due to acute cholecystitis. Had lap jacklyn. Readmitted July 2016 with infected loculated pancreatic pseudocyst.) : reports: Incontinence, Chronic bladder infection (CT KUB done for recurrent UTIs December 2018 without stones, hydroureter, cyst seen in right upper pole. 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 Living arrangement: At home Living Situation: With spouse/s.o. Social History Notes: She smoked 1ppd. Uses CBD cannabis oil sublingual. She does not drink alcohol - POLST Patient has POLST: No POLST Status: Full Code Meds/Allgy - Home Medications Home Medications: Ambulatory Orders Medication Instructions Recorded Confirmed LORazepam [Ativan] 0.5 mg PO BID PRN #60 tablet 07/17/19 11/26/19 Levothyroxine Sodium 50 mcg PO QDAC #30 07/17/19 11/26/19 [place] Carbonate 300 mg PO DAILY #30 07/17/19 11/26/19 Metoprolol Succinate [Toprol Xl] 50 mg PO DAILY #30 07/17/19 11/26/19 Oxycodone HCl 10 mg PO TID PRN #30 07/17/19 11/26/19 Venlafaxine HCl 75 mg PO BID #60 07/17/19 11/26/19 gemfibroziL [Gemfibrozil] 600 mg PO BID #60 07/17/19 11/26/19 risperiDONE [Risperdal] 1 mg PO QPM #30 07/17/19 11/26/19 Morphine Sulfate [Morphine Sulfate 30 mg PO BID 11/15/19 11/26/19 ER] Omeprazole 20 mg PO DAILY 11/15/19 11/26/19 Cimetidine 400 mg PO BID 11/26/19 11/26/19 Gabapentin 100 - 200 mg PO QPM PRN 11/26/19 11/26/19 Nystatin Cream [Mycostatin Cream] 1 applic TOP BID #1 tube 11/28/19 cephALEXin [Keflex] 250 mg PO QID #16 capsule 11/28/19 - Allergies Allergies/Adverse Reactions: Allergies Allergy/AdvReac Type Severity Reaction Status Date / Time NSAIDS (Non-Steroidal Allergy Mild Hives Verified 12/02/19 17:50 Anti-Inflamma lisinopril Allergy Unknown Verified 12/02/19 17:50 Sulfa (Sulfonamide AdvReac Mild Rash Verified 12/02/19 17:50 Antibiotics) Review of Systems - Constitutional Constitutional: reports: Other (lethargic. oriented to self mainly). denies: Fatigue, Fever - Eyes Eyes: denies: Pain - Ears, Nose & Throat Ears, Nose & Throat: denies: Ear pain - Cardiovascular Cariovascular: denies: Chest pain - Respiratory Respiratory: denies: Cough, Sputum production, Wheezing, SOB at rest - Gastrointestinal Gastrointestinal: denies: Abdominal pain, Abdominal distention, Nausea, Vomiting - Musculoskeletal Musculoskeletal: reports: Back pain. denies: Muscle pain, Muscle aches, St iffness - Integumentary Integumentary: denies: Rash, Pruritis, Lesions, Dryness - Psychiatric Psychiatric: reports: Other (Bipolar disorder) - Endocrine Endocrine: denies: Polyuria, Polydypsia - Hematologic/Lymphatic Hematologic/Lymphatic: reports: Bruising (on right hand) Prior Level of Functionality: Patient lives at home with her who has dementia and a history of a CVA. They have someone who comes 6 days a week and helps with setting out medications. However the patient is insistent on managing her pain medications on her own. This is the patient's third admission in the span of a month. This is increasingly concerning that the patient is not able to manage on her own at home. Exam - Vital Signs Vital Signs: Vital Signs x48h Temp Pulse Resp BP Pulse Ox 12/02/19 17:55 69 15 136/63 H 96 12/02/19 17:50 37.0 C 70 12 136/63 H 88 L - Physical Exam General Appearance: positive: No acute distress, Lethargic, Other (encephalopathy) Eyes Bilateral: positive: PERRL, EOMI ENT: positive: Dry mucous membranes Neck: positive: No JVD, Trachea midline Respiratory: positive: Chest non-tender, No respiratory distress, Breath sounds nml. negative: Wheezes, Rales, Rhonchi Cardiovascular: positive: Tachycardia Abdomen: positive: Non-tender, No organomegaly, Nml bowel sounds, No distention. negative: Guarding, Rebound Back: positive: Nml inspection Skin: positive: Color nml, No rash, Warm, Dry Extremities: positive: Non-tender, Nml appearance, No pedal edema Neurologic/Psychiatric: positive: Other (somnolent). negative: Oriented x3 Conclusion/Plan - Problem List (1) VICKIE (acute kidney injury) Conclusion/Plan: This is likely multifactorial secondary to dehydration and possibly UTI. IV hydration with normal saline at 125 mils per hour. Patient was given 1 dose of Rocephin IV in the ED however will hold off on further antibiotics for now. We will check CBC in the morning to see if leukocytosis is worsening and will observe patient to see if she becomes febrile. Urine culture pending however in the past there has been no growth. (2) UTI (urinary tract infection) Conclusion/Plan: During the last admission the patient was on Zosyn while in the hospital. Urine cultures currently pending. The patient was given 1 dose of Rocephin in the ED. We will hold off on antibiotics for now. Qualifiers: Urinary tract infection type: site unspecified Hematuria presence: without hematuria Qualified Code(s): N39.0 - Urinary tract infection, site not specified (3) Encephalopathy Conclusion/Plan: Likely multifactorial. Due to narcotic use/abuse. Cannot rule out a UTI at the moment. We will hold all narcotics or potentially sedating medications. IV hydration with normal saline. Patient was given 1 dose of Rocephin in the ED will repeat labs in the morning. (4) Tenuous home situation Conclusion/Plan: This is the patient's third admission in 18 days for the same reason. It is apparent the patient is unable to manage on her own at home. Also her has a history of CVA and dementia and would be unable to help the patient The patient would likely need placement. Social work has been consulted to assist with this process. (5) Bipolar disorder Conclusion/Plan: Will check lithium level - Lab Results Fish Bones: 12/02/19 18:19 12/02/19 18:30 Core Measures - Anticipated LOS I expect patient to be DC'd or transferred within 96 hours.: Yes - DVT/VTE - Prophylaxis VTE/DVT Device ordered at admit?: Yes VTE/DVT Prophylaxis med ordered at admit?: Yes
[2019-12-02] MEDS: HEPARIN 5,000 UNIT/ML VIAL SUBQ SCH (22:41)
[2019-12-03] MEDS: SODIUM CHLORIDE FLUSH 0.9% 10 ML SYRINGE IVP SCH ×3 (00:35→19:03)
[2019-12-03] MEDS: SODIUM CHLORIDE 0.9% 1,000 ML IV SCH ×3 (02:34→19:03)
[2019-12-03] MEDS: PANTOPRAZOLE 40 MG TABLET PO SCH (06:23)
[2019-12-03 06:31] LABS: BASOPHILS % (AUTO) 0.5 %; EOSINOPHILS # (AUTO) 0.4 10^3/uL (0.0-0.7); EOSINOPHILS % (AUTO) 5.1 %; HGB - HEMOGLOBIN 9.6 g/dL (12.0-16.0); LYMPHOCYTES # (AUTO) 1.1 10^3/uL (1.5-3.5); LYMPHOCYTES % (AUTO) 14.1 %; MEAN CORPUSCULAR HEMOGLOBIN 28.9 pg (27.0-31.0); MEAN CORPUSCULAR VOLUME 99.7 fL (81.0-99.0); MONOCYTES # (AUTO) 0.6 10^3/uL (0.0-1.0); MONOCYTES % (AUTO) 7.5 %; NEUTROPHILS # (AUTO) 5.7 10^3/uL (1.5-6.6); NEUTROPHILS % (AUTO) 72.4 %; PLT - PLATELET COUNT 307 10^3/uL (130-450); RED BLOOD COUNT 3.32 10^6/uL (4.20-5.40); RED CELL DISTRIBUTION WIDTH 15.3 % (12.0-15.0); WHITE BLOOD COUNT 7.9 x10^3/uL (4.8-10.8)
[2019-12-03 06:40] LABS: CALCIUM 8.9 mg/dL (8.5-10.3); CREATININE 2.6 mg/dL (0.4-1.0)
[2019-12-03 06:48] LABS: LITHIUM 0.95 mmol/L
--- NOTE | 2019-12-03 08:29 | PROVIDER PROGRESS NOTE ---
Assessment/Plan - Problem List (1) VICKIE (acute kidney injury) Assessment/Plan: Patient is currently receiving IV hydration at 125 mils of normal saline an hour. Creatinine has improved from 3.0-2.6. We will continue to monitor. (2) UTI (urinary tract infection) Qualifiers: Urinary tract infection type: site unspecified Hematuria presence: without hematuria Qualified Code(s): N39.0 - Urinary tract infection, site not specified Assessment/Plan: His WBC improved from 12-7.6. For the past 2 visits patient had been treated with Zosyn for UTI. At the moment we will hold off on any further antibiotics. There is a urine culture pending. Will make further decisions on antibiotics if the culture results are significant. (3) Encephalopathy Assessment/Plan: Patient is more alert this morning than at time of admission. However she is still not able to provide a reliable history. There are no focal neurologic deficits.Ammonia level was within normal limits We will continue to hold on narcotics are potentially sedating medications for now. (4) Tenuous home situation Assessment/Plan: This is the patient's third admission in 18 days for the same reason. It is apparent the patient is unable to manage on her own at home. Also her has a history of CVA and dementia and would be unable to help the patient The patient would likely need placement. Social work has been consulted to assist with this process. (5) Bipolar disorder Assessment/Plan: Patient's lithium level was 0.95 which is within therapeutic limits. Will resume lithium dose once verified by pharmacy. Hold patient's Risperdal for now. Patient has baseline intermittent twitching which could potentially be an extrapyramidal symptom. - Current Meds Current Meds: Current Medications Generic Name Dose Route Start Last Admin Trade Name Freq PRN Reason Stop Dose Admin Heparin Sodium (Porcine) 5,000 unit 12/02/19 21:00 12/02/19 22:41 SUBQ 5,000 unit BID JARETT Administration Sodium Chloride 1,000 mls @ 125 mls/hr 12/02/19 20:00 12/03/19 02:34 Normal Saline 0.9% IV 125 mls/hr .Q8H JARETT Administration Pantoprazole Sodium 40 mg 12/03/19 07:00 12/03/19 06:23 Protonix PO 40 mg QDAC JARETT Administration Sodium Chloride 10 ml 12/03/19 01:00 12/03/19 00:35 Normal Saline Flush 0.9% IVP Not Given 0100,0900,1700 JARETT - Lab Result Fish Bone Diagrams: 12/03/19 06:00 12/03/19 06:00 - Additional Planning My Orders: My Active Orders 12/02/19 Dinner Regular Diet [DIET] 12/02/19 19:34 Activity Orders [RC] Q2HR IO [RC] IOSHIFT Initiate Bowel Care Protocol [RC] .protocol Initiate Line Care Protocol [RC] QSHIFT Initiate Personal Care Protoco [RC] .protocol Oxygen Therapy [RC] Routine Vital Signs [RC] 0800,1600,0000 Acetaminophen [Tylenol] 650 mg PO Q4HR PRN Sodium Chloride Flush 0.9% [Normal Saline Flush 0.9%] 10 ml IVP PRN PRN Code Status [OTHERS] Routine Condition of Patient [OTHERS] Routine DVT Prophylaxis [OTHERS] Routine 12/02/19 19:37 SCDs [RC] QSHIFT Social Work Consult [CONS] Routine 12/02/19 20:00 Sodium Chloride 0.9% [Normal Saline 0.9%] 1,000 ml IV 125 mls/hr 12/02/19 21:00 Heparin 5,000 unit SUBQ BID 12/03/19 01:00 Sodium Chloride Flush 0.9% [Normal Saline Flush 0.9%] 10 ml IVP 0100,0900,1700 12/03/19 07:00 Pantoprazole [Protonix] 40 mg PO QDAC 12/04/19 05:00 BMP - BASIC METABOLIC PANEL [CHEM] DAILYLAB CBC - COMP BLD CT W/AUTO DIFF [HEME] DAILYLAB 12/05/19 05:00 BMP - BASIC METABOLIC PANEL [CHEM] DAILYLAB CBC - COMP BLD CT W/AUTO DIFF [HEME] DAILYLAB 12/06/19 05:00 BMP - BASIC METABOLIC PANEL [CHEM] DAILYLAB CBC - COMP BLD CT W/AUTO DIFF [HEME] DAILYLAB 12/07/19 05:00 BMP - BASIC METABOLIC PANEL [CHEM] DAILYLAB CBC - COMP BLD CT W/AUTO DIFF [HEME] DAILYLAB Subjective - Subjective Patient Reports: Other (Patient is more alert this morning. She readily awakens to verbal stimuli. However she is unable to give any reliable history. She can tell her name and date of . She also knows where she is at the moment. However she does not remember the events that led up to her presentation here) Objective Vital Signs: Vital Signs - 24 hr 12/02/19 12/02/19 12/02/19 17:50 17:55 19:30 Temperature 37.0 C Heart Rate 70 69 59 L Heart Rate [ Brachial] Respiratory 12 15 11 L Rate Blood Pressure 136/63 H 136/63 H 141/58 H Blood Pressure [Right Brachial artery] O2 Saturation 88 L 96 98 12/02/19 12/03/19 20:34 00:00 Temperature 36.9 C 37.0 C Heart Rate Heart Rate [ 76 78 Brachial] Respiratory 20 18 Rate Blood Pressure Blood Pressure 151/90 H 148/76 H [Right Brachial artery] O2 Saturation 99 100 Oxygen O2 Source [Without Activity] Room air O2 Source Nasal cannula I&O (Last 24 Hrs): Intake and Output Totals x24h 12/01/19 12/02/19 12/03/19 23:59 23:59 23:59 Intake Total 1525 575 Output Total 800 Balance 1525 -225 General: Alert, Cooperative, No acute distress HEENT: PERRLA, EOMI Neck: No JVD Neuro: Alert, Non Focal, Other (oriented to self and place mainly) Cardiovascular: Regular rate Respiratory: Chest non-tender, No respiratory distress, Breath sounds nml Abdomen: Normal bowel sounds, Soft, No tenderness Extremities: No clubbing, No edema Comments/Notes: Patient has some bruising on her right hand - Results Results: Laboratory Results WBC 7.9 x10^3/uL (4.8-10.8) 12/03/19 06:00 RBC 3.32 10^6/uL (4.20-5.40) L 12/03/19 06:00 Hgb 9.6 g/dL (12.0-16.0) L 12/03/19 06:00 Hct 33.1 % (37.0-47.0) L 12/03/19 06:00 MCV 99.7 fL (81.0-99.0) H 12/03/19 06:00 MCH 28.9 pg (27.0-31.0) 12/03/19 06:00 MCHC 29.0 g/dL (32.0-36.0) L 12/03/19 06:00 RDW 15.3 % (12.0-15.0) H 12/03/19 06:00 Plt Count 307 10^3/uL (130-450) 12/03/19 06:00 MPV 10.0 fL (7.9-10.8) 12/03/19 06:00 Neut # (Auto) 5.7 10^3/uL (1.5-6.6) 12/03/19 06:00 Lymph # (Auto) 1.1 10^3/uL (1.5-3.5) L 12/03/19 06:00 [place] # (Auto) 0.6 10^3/uL (0.0-1.0) 12/03/19 06:00 Eos # (Auto) 0.4 10^3/uL (0.0-0.7) 12/03/19 06:00 Baso # (Auto) 0.0 10^3/uL (0.0-0.1) 12/03/19 06:00 Absolute Nucleated RBC 0.00 x10^3/uL 12/03/19 06:00 Nucleated RBC % 0.0 /100WBC 12/03/19 06:00 PT 14.1 secs (9.9-12.6) H 12/02/19 18:19 INR 1.3 (0.8-1.2) H 12/02/19 18:19 VBG pH 7.303 (7.31-7.41) L 12/02/19 18:30 VBG pCO2 34.3 mmHg (41-51) L 12/02/19 18:30 VBG pO2 42.0 mmHg (25-47) 12/02/19 18:30 VBG HCO3 16.6 mmol/L (23-28) L 12/02/19 18:30 VBG Total CO2 17.7 mmol/L (24-29) L 12/02/19 18:30 VBG O2 Saturation 65.2 % (60-80) 12/02/19 18:30 VBG Base Excess -8.9 mmol/L (-2 - +2) L 12/02/19 18:30 Sodium 144 mmol/L (135-145) 12/03/19 06:00 Potassium 4.6 mmol/L (3.5-5.0) 12/03/19 06:00 Chloride 111 mmol/L (101-111) 12/03/19 06:00 Carbon Dioxide 28 mmol/L (21-32) 12/03/19 06:00 Anion Gap 5.0 (6-13) L 12/03/19 06:00 BUN 30 mg/dL (6-20) H 12/03/19 06:00 Creatinine 2.6 mg/dL (0.4-1.0) H 12/03/19 06:00 Estimated GFR (MDRD) 18 (>89) L 12/03/19 06:00 Glucose 76 mg/dL (70-100) 12/03/19 06:00 Lactic Acid 1.0 mmol/L (0.5-2.2) 12/02/19 18:30 Calcium 8.9 mg/dL (8.5-10.3) 12/03/19 06:00 Total Bilirubin 0.3 mg/dL (0.2-1.0) 12/02/19 18:30 AST 13 IU/L (10-42) 12/02/19 18:30 ALT < 10 IU/L (10-60) L 12/02/19 18:30 Alkaline Phosphatase 146 IU/L (42-121) H 12/02/19 18:30 Ammonia 19.3 umol/L (7-35) 12/02/19 18:30 Total Protein 6.8 g/dL (6.7-8.2) 12/02/19 18:30 Albumin 3.2 g/dL (3.2-5.5) 12/02/19 18:30 Globulin 3.6 g/dL (2.1-4.2) 12/02/19 18:30 Albumin/Globulin Ratio 0.9 (1.0-2.2) L 12/02/19 18:30 Lipase 23 U/L (22-51) 12/02/19 18:30 Urine Color YELLOW 12/02/19 18:10 Urine Clarity HAZY (CLEAR) 12/02/19 18:10 Urine pH 6.5 PH (5.0-7.5) 12/02/19 18:10 Ur Specific [place] <=1.005 (1.002-1.030) 12/02/19 18:10 Urine Protein NEGATIVE mg/dL (NEGATIVE) 12/02/19 18:10 Urine Glucose (UA) NEGATIVE mg/dL (NEGATIVE) 12/02/19 18:10 Urine Ketones NEGATIVE mg/dL (NEGATIVE) 12/02/19 18:10 Urine Occult Blood TRACE-INTA (NEGATIVE) 12/02/19 18:10 Urine Nitrite NEGATIVE (NEGATIVE) 12/02/19 18:10 Urine Bilirubin NEGATIVE (NEGATIVE) 12/02/19 18:10 Urine Urobilinogen 0.2 (NORMAL) E.U./dL (NORMAL) 12/02/19 18:10 Ur Leukocyte Esterase MODERATE (NEGATIVE) H 12/02/19 18:10 Urine RBC 0-5 /HPF (0-5) 12/02/19 18:10 Urine WBC >25 /HPF (0-5) H 12/02/19 18:10 Ur Squamous Epith Cells FEW Squamous (<= Few) 12/02/19 18:10 Urine Bacteria Few /HPF (None Seen) 12/02/19 18:10 Ur Microscopic Review INDICATED 12/02/19 18:10 Urine Culture Comments INDICATED 12/02/19 18:10 Last Dose Date UNK 12/03/19 06:00 Last Dose Time UNK 12/03/19 06:00 Salicylates < 6.0 mg/dL 12/02/19 18:30 Urine Opiates Screen POSITIVE (NEGATIVE) H 12/02/19 18:10 Ur Oxycodone Screen NEGATIVE (NEGATIVE) 12/02/19 18:10 Urine Methadone Screen NEGATIVE (NEGATIVE) 12/02/19 18:10 Ur Propoxyphene Screen NEGATIVE (NEGATIVE) 12/02/19 18:10 Acetaminophen < 10 ug/mL (10-30) L 12/02/19 18:30 Ur Barbiturates Screen NEGATIVE (NEGATIVE) 12/02/19 18:10 Ur Tricyclics Screen NEGATIVE (NEGATIVE) 12/02/19 18:10 Ur Phencyclidine Scrn NEGATIVE (NEGATIVE) 12/02/19 18:10 Ur Amphetamine Screen NEGATIVE (NEGATIVE) 12/02/19 18:10 U Methamphetamines Scrn NEGATIVE (NEGATIVE) 12/02/19 18:10 U Benzodiazepines Scrn POSITIVE (NEGATIVE) H 12/02/19 18:10 [place] 0.95 mmol/L 12/03/19 06:00 Urine Cocaine Screen NEGATIVE (NEGATIVE) 12/02/19 18:10 U Cannabinoids Screen NEGATIVE (NEGATIVE) 12/02/19 18:10 Ethyl Alcohol < 5.0 mg/dL 12/02/19 18:30 - Procedures Procedures: Procedures COLONOSCOPY (01/09/13) DRAINAGE OF BLADDER WITH DRAINAGE DEVICE, VIA OPENING (11/25/19) ABX Reporting Has patient been on IV antibiotics over the past 48 hours?: Yes
[2019-12-03] MEDS: HEPARIN 5,000 UNIT/ML VIAL SUBQ SCH ×2 (08:46→21:20)
--- NOTE | 2019-12-03 11:02 | PHARMACY PROGRESS NOTE ---
- Best Possible Medication History Admit Date and Time: 12/02/191933 Processed by: Pharmacy Medication History completed: Yes Patient Interview: Pt unable to participate Secondary Source(s): Insurance records, Previous admit records As the person ultimately responsible for medication therapy, providers are able to order a medication from an existing home medication list in [facility] via the "Reconcile Routine" prior to Confirmation of that medication by desktop support specialist. Such practice is discouraged except when the physician, in their clinical judgment, deems that a medical need exists for a medication without regard to previous use.
--- NOTE | 2019-12-03 15:30 | PROVIDER PROGRESS NOTE ---
Assessment/Plan - Problem List (1) Chest pain Assessment/Plan: Patient complained of chest pain this morning after breakfast, it was not pleuritic, it was across her entire anterior chest. She was SOB with it. A STAT EKG was done and it showed normal sinus rhythm, incomplete LBBB, poor R wave progression, no ST or T wave changes. No significant change from 11/25/19. A CXR was done that showed no acute problems. Will get serial troponins. I suspect it may be from her COPD or from pulmonary congestion after getting 2 days of iv fluids. Will check a BNP. (2) VICKIE (acute kidney injury) Assessment/Plan: Patient was receiving IV hydration at 125 mils of normal saline an hour. Creatinine has improved from 3.0>>< 2.6>> 2.1. Will continue iv hydration (with change to 1/2 NS, due to hypernatremia), and decrease that slowly, as she starts to take in oral hydration as she is awakening. We will continue to monitor BMP daily. (3) Hypernatremia Assessment/Plan: She has been on NS for 2-1/2 days. This was started for treating VICKIE from volume depletion. Will change to one half NS and decrease the rate, now that she is waking up to be able to take oral hydration. Follow BMP daily. (4) HTN (hypertension) Assessment/Plan: Systolic blood pressure in the 180s. She did not get her metoprolol the last 2 days because she was too somnolent to swallow. She was also dehydrated and blood pressure was not as high as it is today. Also, she was somnolent from over-sedation on narcotics. HTN could be sign of narcotic withdrawal or from true pain. We will resume her usual Metoprolol dose. Will order IV hydralazine prn (5) Encephalopathy Assessment/Plan: Patient is more alert and was communicating with her RN this morning. There are no focal neurologic deficits. Ammonia level was within normal limits at admission and no sign of active infection. She was over-sedated on her home narcotics, which she apparently takes on her own, not monitored as to dosing, and her caregiver has reported on past hospitalization, that the doses run out before they should. Will resume narcotics, so she does not go into withdrawal, with monitoring for over-sedation. (6) Abnormal finding on urinalysis Assessment/Plan: Her WBC improved from 12 to7.6 to 7.3 without continueing antibiotics. For the past 2 visits patient had been treated with Zosyn for UTI. Will hold off on any further antibiotics. There is a urine culture pending. Will make further decisions on antibiotics if the culture results are significant. (7) At risk for unsafe behavior Assessment/Plan: This is the patient's third admission in 18 days for the same reason: obtundation, therefore no oral intake causing dehydration and VICKIE. It is apparent that the patient is unable to manage her narcotic meds on her own at home. These are the ones she manages on her own and does not allow anyone else to manage. Also her has a history of CVA and dementia and is unable to help the patient The patient needs placement where her pain med dosing is controlled. Social work has been consulted to assist with this process. (8) Bipolar disorder Assessment/Plan: Patient's lithium level was 0.95 which is within therapeutic limits. Will resume [place] dose and the Venlafaxine and Risperdal. (9) Hypothyroidism Assessment/Plan: Continue on her home dose of Synthroid. (10) Anemia Assessment/Plan: This is likely from hydration since she was volume depleted at admission. We will check B12, folate levels and iron stores, and if indicated will check a stool guaic. Replace if low. - Current Meds Current Meds: Current Medications Generic Name Dose Route Start Last Admin Trade Name Freq PRN Reason Stop Dose Admin Heparin Sodium (Porcine) 5,000 unit 12/02/19 21:00 12/03/19 08:46 SUBQ 5,000 unit BID JARETT Administration Sodium Chloride 1,000 mls @ 125 mls/hr 12/02/19 20:00 12/03/19 10:55 Normal Saline 0.9% IV 125 mls/hr .Q8H JARETT Administration Pantoprazole Sodium 40 mg 12/03/19 07:00 12/03/19 06:23 Protonix PO 40 mg QDAC JARETT Administration Sodium Chloride 10 ml 12/03/19 01:00 12/03/19 10:56 Normal Saline Flush 0.9% IVP Not Given 0100,0900,1700 JARETT - Lab Result Fish Bone Diagrams: 12/04/19 05:10 12/04/19 05:10 - EKG Results EKG Interpreted Independently: Yes EKG Findings: Normal sinus rhythm, incomplete LBBB, poor R wave progression, no ST or T wave changes. - Additional Planning My Orders: My Active Orders 12/03/19 Palliative Care Consult [CONS] Routine Subjective - Subjective Patient Reports: Shortness of Breath, Other (Awoke to eat regular food and was asking for more juices. She is now somnolent once again.) Objective Vital Signs: Vital Signs - 24 hr 12/02/19 12/02/19 12/02/19 17:50 17:55 19:30 Temperature 37.0 C Heart Rate 70 69 59 L Heart Rate [ Brachial] Respiratory 12 15 11 L Rate Blood Pressure 136/63 H 136/63 H 141/58 H Blood Pressure [Right Brachial artery] O2 Saturation 88 L 96 98 12/02/19 12/03/19 12/03/19 20:34 00:00 08:00 Temperature 36.9 C 37.0 C 36.5 C Heart Rate Heart Rate [ 76 78 77 Brachial] Respiratory 20 18 Rate Blood Pressure Blood Pressure 151/90 H 148/76 H 141/84 H [Right Brachial artery] O2 Saturation 99 100 98 Oxygen O2 Source [Without Activity] Room air O2 Source Nasal cannula I&O (Last 24 Hrs): Intake and Output Totals x24h 12/01/19 12/02/19 12/03/19 23:59 23:59 23:59 Intake Total 1525 1895 Output Total 1999 Balance 1525 -105 General: Other ([place]) HEENT: Atraumatic, Mucous membr. moist/pink Neck: Supple Neuro: Other (Obtunded, muscle twitches are noted of the arms and lips) Cardiovascular: Regular rate Respiratory: No respiratory distress Abdomen: Soft, Other (Obese with pannus) Extremities: No edema - Results Results: Laboratory Results WBC 7.9 x10^3/uL (4.8-10.8) 12/03/19 06:00 RBC 3.32 10^6/uL (4.20-5.40) L 12/03/19 06:00 Hgb 9.6 g/dL (12.0-16.0) L 12/03/19 06:00 Hct 33.1 % (37.0-47.0) L 12/03/19 06:00 MCV 99.7 fL (81.0-99.0) H 12/03/19 06:00 MCH 28.9 pg (27.0-31.0) 12/03/19 06:00 MCHC 29.0 g/dL (32.0-36.0) L 12/03/19 06:00 RDW 15.3 % (12.0-15.0) H 12/03/19 06:00 Plt Count 307 10^3/uL (130-450) 12/03/19 06:00 MPV 10.0 fL (7.9-10.8) 12/03/19 06:00 Neut # (Auto) 5.7 10^3/uL (1.5-6.6) 12/03/19 06:00 Lymph # (Auto) 1.1 10^3/uL (1.5-3.5) L 12/03/19 06:00 [place] # (Auto) 0.6 10^3/uL (0.0-1.0) 12/03/19 06:00 Eos # (Auto) 0.4 10^3/uL (0.0-0.7) 12/03/19 06:00 Baso # (Auto) 0.0 10^3/uL (0.0-0.1) 12/03/19 06:00 Absolute Nucleated RBC 0.00 x10^3/uL 12/03/19 06:00 Nucleated RBC % 0.0 /100WBC 12/03/19 06:00 PT 14.1 secs (9.9-12.6) H 12/02/19 18:19 INR 1.3 (0.8-1.2) H 12/02/19 18:19 VBG pH 7.303 (7.31-7.41) L 12/02/19 18:30 VBG pCO2 34.3 mmHg (41-51) L 12/02/19 18:30 VBG pO2 42.0 mmHg (25-47) 12/02/19 18:30 VBG HCO3 16.6 mmol/L (23-28) L 12/02/19 18:30 VBG Total CO2 17.7 mmol/L (24-29) L 12/02/19 18:30 VBG O2 Saturation 65.2 % (60-80) 12/02/19 18:30 VBG Base Excess -8.9 mmol/L (-2 - +2) L 12/02/19 18:30 Sodium 144 mmol/L (135-145) 12/03/19 06:00 Potassium 4.6 mmol/L (3.5-5.0) 12/03/19 06:00 Chloride 111 mmol/L (101-111) 12/03/19 06:00 Carbon Dioxide 28 mmol/L (21-32) 12/03/19 06:00 Anion Gap 5.0 (6-13) L 12/03/19 06:00 BUN 30 mg/dL (6-20) H 12/03/19 06:00 Creatinine 2.6 mg/dL (0.4-1.0) H 12/03/19 06:00 Estimated GFR (MDRD) 18 (>89) L 12/03/19 06:00 Glucose 76 mg/dL (70-100) 12/03/19 06:00 Lactic Acid 1.0 mmol/L (0.5-2.2) 12/02/19 18:30 Calcium 8.9 mg/dL (8.5-10.3) 12/03/19 06:00 Total Bilirubin 0.3 mg/dL (0.2-1.0) 12/02/19 18:30 AST 13 IU/L (10-42) 12/02/19 18:30 ALT < 10 IU/L (10-60) L 12/02/19 18:30 Alkaline Phosphatase 146 IU/L (42-121) H 12/02/19 18:30 Ammonia 19.3 umol/L (7-35) 12/02/19 18:30 Total Protein 6.8 g/dL (6.7-8.2) 12/02/19 18:30 Albumin 3.2 g/dL (3.2-5.5) 12/02/19 18:30 Globulin 3.6 g/dL (2.1-4.2) 12/02/19 18:30 Albumin/Globulin Ratio 0.9 (1.0-2.2) L 12/02/19 18:30 Lipase 23 U/L (22-51) 12/02/19 18:30 Urine Color YELLOW 12/02/19 18:10 Urine Clarity HAZY (CLEAR) 12/02/19 18:10 Urine pH 6.5 PH (5.0-7.5) 12/02/19 18:10 Ur Specific [place] <=1.005 (1.002-1.030) 12/02/19 18:10 Urine Protein NEGATIVE mg/dL (NEGATIVE) 12/02/19 18:10 Urine Glucose (UA) NEGATIVE mg/dL (NEGATIVE) 12/02/19 18:10 Urine Ketones NEGATIVE mg/dL (NEGATIVE) 12/02/19 18:10 Urine Occult Blood TRACE-INTA (NEGATIVE) 12/02/19 18:10 Urine Nitrite NEGATIVE (NEGATIVE) 12/02/19 18:10 Urine Bilirubin NEGATIVE (NEGATIVE) 12/02/19 18:10 Urine Urobilinogen 0.2 (NORMAL) E.U./dL (NORMAL) 12/02/19 18:10 Ur Leukocyte Esterase MODERATE (NEGATIVE) H 12/02/19 18:10 Urine RBC 0-5 /HPF (0-5) 12/02/19 18:10 Urine WBC >25 /HPF (0-5) H 12/02/19 18:10 Ur Squamous Epith Cells FEW Squamous (<= Few) 12/02/19 18:10 Urine Bacteria Few /HPF (None Seen) 12/02/19 18:10 Ur Microscopic Review INDICATED 12/02/19 18:10 Urine Culture Comments INDICATED 12/02/19 18:10 Last Dose Date UNK 12/03/19 06:00 Last Dose Time UNK 12/03/19 06:00 Salicylates < 6.0 mg/dL 12/02/19 18:30 Urine Opiates Screen POSITIVE (NEGATIVE) H 12/02/19 18:10 Ur Oxycodone Screen NEGATIVE (NEGATIVE) 12/02/19 18:10 Urine Methadone Screen NEGATIVE (NEGATIVE) 12/02/19 18:10 Ur Propoxyphene Screen NEGATIVE (NEGATIVE) 12/02/19 18:10 Acetaminophen < 10 ug/mL (10-30) L 12/02/19 18:30 Ur Barbiturates Screen NEGATIVE (NEGATIVE) 12/02/19 18:10 Ur Tricyclics Screen NEGATIVE (NEGATIVE) 12/02/19 18:10 Ur Phencyclidine Scrn NEGATIVE (NEGATIVE) 12/02/19 18:10 Ur Amphetamine Screen NEGATIVE (NEGATIVE) 12/02/19 18:10 U Methamphetamines Scrn NEGATIVE (NEGATIVE) 12/02/19 18:10 U Benzodiazepines Scrn POSITIVE (NEGATIVE) H 12/02/19 18:10 [place] 0.95 mmol/L 12/03/19 06:00 Urine Cocaine Screen NEGATIVE (NEGATIVE) 12/02/19 18:10 U Cannabinoids Screen NEGATIVE (NEGATIVE) 12/02/19 18:10 Ethyl Alcohol < 5.0 mg/dL 12/02/19 18:30 - Procedures Procedures: Procedures COLONOSCOPY (01/09/13) DRAINAGE OF BLADDER WITH DRAINAGE DEVICE, VIA OPENING (11/25/19)
[2019-12-03] MEDS: SENNA 8.6 MG TABLET PO SCH (21:19)
[2019-12-03] MEDS: DOCUSATE SODIUM 250 MG CAPSULE PO SCH (21:19)
[2019-12-04] MEDS ORDERED: MIN OIL/DIMETHICON/COCONUT OIL 92 GM TUBE TOP PRN (01:22)
[2019-12-04] MEDS ORDERED: LORazepam 0.5 MG TABLET PO STA (02:18)
[2019-12-04] MEDS: SODIUM CHLORIDE 0.9% 1,000 ML IV SCH (02:35)
[2019-12-04] MEDS: SODIUM CHLORIDE FLUSH 0.9% 10 ML SYRINGE IVP SCH ×3 (02:37→20:59)
[2019-12-04 05:18] LABS: BASOPHILS % (AUTO) 0.3 %; EOSINOPHILS # (AUTO) 0.3 10^3/uL (0.0-0.7); EOSINOPHILS % (AUTO) 4.3 %; HGB - HEMOGLOBIN 9.4 g/dL (12.0-16.0); LYMPHOCYTES # (AUTO) 1.2 10^3/uL (1.5-3.5); LYMPHOCYTES % (AUTO) 16.8 %; MEAN CORPUSCULAR HEMOGLOBIN 28.9 pg (27.0-31.0); MEAN CORPUSCULAR HGB CONC 29.9 g/dL (32.0-36.0); MEAN CORPUSCULAR VOLUME 96.6 fL (81.0-99.0); MEAN PLATELET VOLUME 9.8 fL (7.9-10.8); MONOCYTES # (AUTO) 0.5 10^3/uL (0.0-1.0); MONOCYTES % (AUTO) 6.2 %; NEUTROPHILS # (AUTO) 5.2 10^3/uL (1.5-6.6); PLT - PLATELET COUNT 285 10^3/uL (130-450); RED BLOOD COUNT 3.25 10^6/uL (4.20-5.40); RED CELL DISTRIBUTION WIDTH 14.8 % (12.0-15.0); WHITE BLOOD COUNT 7.3 x10^3/uL (4.8-10.8)
[2019-12-04] MEDS: ACETAMINOPHEN 325 MG TABLET PO PRN ×2 (05:31→16:26)
[2019-12-04 05:52] LABS: CALCIUM 9.1 mg/dL (8.5-10.3); CREATININE 2.1 mg/dL (0.4-1.0)
[2019-12-04] MEDS: PANTOPRAZOLE 40 MG TABLET PO SCH (05:57)
[2019-12-04] MEDS ORDERED: MORPHINE SULFATE ER 30 MG TABLET PO PRN (08:16)
[2019-12-04] MEDS ORDERED: DOCUSATE SODIUM 250 MG CAPSULE PO SCH (09:00)
[2019-12-04] MEDS ORDERED: SENNA 8.6 MG TABLET PO SCH (09:00)
[2019-12-04] MEDS ORDERED: hydrALAZINE INJ 20 MG/ML VIAL IVP ONE (09:07)
[2019-12-04] MEDS: DOCUSATE SODIUM 250 MG CAPSULE PO SCH (09:28)
[2019-12-04] MEDS: SENNA 8.6 MG TABLET PO SCH (09:29)
[2019-12-04] MEDS: VENLAFAXINE 37.5 MG TABLET PO SCH ×2 (09:29→20:27)
[2019-12-04] MEDS: gemfibroziL 600 MG TABLET PO SCH ×2 (09:29→20:26)
[2019-12-04] MEDS: METOPROLOL SUCCINATE 50 MG TABLET PO SCH (09:29)
[2019-12-04] MEDS: LITHIUM ER 300 MG TABLET PO SCH (09:29)
[2019-12-04] MEDS: HEPARIN 5,000 UNIT/ML VIAL SUBQ SCH ×2 (09:30→20:24)
[2019-12-04] MEDS: SODIUM CHLORIDE 0.45% 1,000 ML IV SCH (09:47)
--- NOTE | 2019-12-04 11:59 | XRAY Report ---
PROCEDURE: Chest 1 View X-Ray INDICATIONS: Worse SOB, Chest pain TECHNIQUE: One view of the chest was acquired. COMPARISON: Chest x-ray examination dated 12.02.19 FINDINGS: Surgical changes and devices: None. Lungs and pleura: No pleural effusions or pneumothorax. Lungs are clear. Mediastinum: Mediastinal contours appear normal. Heart size is normal. Bones and chest wall: No suspicious bony lesions. Overlying soft tissues appear unremarkable. IMPRESSION: No acute process. Reviewed by: Lisa Cooley MD on 12/04/2019 11:58 AM PDT Approved by: Lisa Cooley MD on 12/04/2019 11:58 AM PDT Station ID: [id number]
[2019-12-04] MEDS: LORazepam 0.5 MG TABLET PO PRN ×2 (13:41→19:44)
[2019-12-04] MEDS: NYSTATIN CREAM 15 GM TUBE TOP SCH ×2 (13:44→20:26)
--- NOTE | 2019-12-04 17:37 | CONSULTATION NOTE ---
Palliative Care Consultation - Referral Referring Provider: Gayle Brewer MD Time of Visit: [id number] Referral setting: Hospitalized patient Referral Reason: FTT/chronic back pain/AMS - Information Sources Records reviewed: RN notes reviewed, Previous records reviewed History/Review of Systems obtained from: Patient, Family (spoke with Edward), Other (spoke with HH PT) Exam limitations: Clinical condition (patient with poor insight into severity of condition/situation and STM issues) - History of Present Illness Brief History of Present Illness: This is a 69 woman, who presents yet again to [facility], with altered mental status, and third admission last 18 days. She has long-term had multiple urin roberto tract infections, complicated by her poor hygiene, and poor adherence and follow-up for antibiotic administration. She presents again with acute kidney injury and dehydration. Her reports when she is confused, she often is not able to take her meds properly, with his short-term memory issues he cannot oversee this, and though they have been getting some support suspect she has been taking inappropriately. Patient has both MS Contin, and Lorazepam,. When asked her how she takes her medication. She reports depends on the day. It is ordered as MS Contin 30 mg 1 AM and 1 PM, she reports that she is really sore she will take a third 1. When asked her how often she takes the lorazepam, she reports 1-2 times a week, and is unable to really explain how she chooses or if she takes her gabapentin. She reports rest of her medications are set up the Mediset's, unclear her adherence to these as well. Patient has very little insight to the current situation, she does say does need to drink more. Her says she does not participate well in keeping her fluid status up. When discussed concerns regarding her medication management, she reports to have Emely set up with the timing, but gets often confused. reports she often sleeps through the alarm and rarely completes her takes her antibiotics appropriately. She does have some insight in the context that she does see each time she is hospitalized she is going downhill, but when asked if she wants to do something different or if she is concerned, she reports she has much to live for, she wants to see her grandchildren grow up. When asked what she might do differently, she reports she needs to take this more seriously, but is unable to, with any specifics how this might go differently. Medical/Surgical History - Past Medical History Cardiovascular: reports: Hypertension, High cholesterol, Deep vein thrombosis, Murmur Respiratory: reports: Asthma, COPD, Shortness of breath Neuro: None, Peripheral neuropathy Endocrine/Autoimmune: reports: Type 2 diabetes GI: reports: GERD, Chronic constipation (Admit to [facility] for severe abdominal pain July [address] showed constipation, diverticulosis), Pancreatitis (Infected pancreatic pseudocyst with severe sepsis June 2016 and transfer to [facility]. Due to acute cholecystitis. Had lap jacklyn. Readmitted July 2016 with infected loculated pancreatic pseudocyst.) : reports: Incontinence, Chronic bladder infection (CT KUB done for recurrent UTIs December 2018 without stones, hydroureter, cyst seen in right upper pole. 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 Support System: Patient is at home with her Edward. Edward reports he had a stroke a couple years ago, that has "fried his brain". He has poor short-term memory issues, but is alert and capable of engaging in conversation,. They do have [place] PES Wednesday through Wednesday now, patient reports they do help with vacuuming, house cleaning laundry, and make the bed. They have a dog and 2 cats. They have been initiated services with [facility], they have not been able to establish much report or treatment plan as she has been hospitalized multiple times. Previously she did have a nurse Maria Ines from [facility] services, he was doing medication Mediset's other than her pain meds, every 2 weeks. She does have a son and daughter on [place], and 1 daughter that lives in [place]. Edward reports they are supportive, to help with yard work and are quite concerned about her returning home.She and Edward have been together since 1998, reports he got 6 years ago. Family History - Family History Family History: Mother: , CAD, Father: , CAD Medications/Allergies - Medications Active Medication List: Active Medications Acetaminophen (Tylenol) 650 mg PO Q4HR PRN PRN Reason: Pain 1 to 4 Last Admin: 12/04/19 16:26 Dose: 650 mg Documented by: Docusate Sodium (Colace 250mg Capsule) 250 mg PO DAILY [facility] Last Admin: 12/04/19 09:28 Dose: 250 mg Documented by: Gabapentin (Neurontin) 200 mg PO QPM PRN PRN Reason: PERIPHERIAL NEUROPATHY Gemfibrozil (Lopid) 600 mg PO BID [facility] Last Admin: 12/04/19 09:29 Dose: 600 mg Documented by: Heparin Sodium (Porcine) () 5,000 unit SUBQ BID [facility] Last Admin: 12/04/19 09:30 Dose: 5,000 unit Documented by: Sodium Chloride (Normal Saline 0.45%) 1,000 mls @ 60 mls/hr IV .[id number] [facility] Last Admin: 12/04/19 09:47 Dose: 60 mls/hr Documented by: Levothyroxine Sodium (Synthroid) 50 mcg PO QDAC [facility] [place] Carbonate (Lithobid) 300 mg PO DAILY [facility] Last Admin: 12/04/19 09:29 Dose: 300 mg Documented by: Lorazepam (Ativan) 0.5 mg PO BID PRN PRN Reason: Anxiety Last Admin: 12/04/19 13:41 Dose: 0.5 mg Documented by: Metoprolol Succinate (Toprol Xl) 50 mg PO DAILY [facility] Last Admin: 12/04/19 09:29 Dose: 50 mg Documented by: Mineral Oil (Cavilon) 1 applic TOP PRN PRN PRN Reason: Skin Care Last Admin: 12/04/19 05:34 Dose: 1 applic Documented by: Morphine Sulfate (Ms Contin) 30 mg PO BID PRN PRN Reason: PAIN Last Admin: 12/04/19 13:41 Dose: 30 mg Documented by: Nystatin (Mycostatin Cream) 1 applic TOP BID [facility] Last Admin: 12/04/19 13:44 Dose: 1 applic Documented by: Oxycodone HCl (Roxicodone) 10 mg PO TID PRN PRN Reason: Breakthrough Pain Pantoprazole Sodium (Protonix) 40 mg PO QDAC [facility] Last Admin: 12/04/19 05:57 Dose: 40 mg Documented by: Risperidone (Risperdal) 1 mg PO QPM [facility] Senna (Senokot) 8.6 mg PO DAILY [facility] Last Admin: 12/04/19 09:29 Dose: 8.6 mg Documented by: Sodium Chloride (Normal Saline Flush 0.9%) 10 ml IVP PRN PRN PRN Reason: NEEDED PER PROVIDER ORDERS Sodium Chloride (Normal Saline Flush 0.9%) 10 ml IVP 0100,0900,1700 [facility] Last Admin: 12/04/19 09:34 Dose: Not Given Documented by: Venlafaxine HCl (Effexor) 75 mg PO BID [facility] Last Admin: 12/04/19 09:29 Dose: 75 mg Documented by: Morphine Sulfate [Morphine Sulfate ER] 30 mg PO BID PRN 11/15/19 Omeprazole 20 mg PO DAILY 11/15/19 Cimetidine 400 mg PO BID PRN 11/26/19 Gabapentin 100 - 200 mg PO QPM PRN 11/26/19 - Allergies Allergies/Adverse Reactions: Allergies Allergy/AdvReac Type Severity Reaction Status Date / Time NSAIDS (Non-Steroidal Allergy Mild Hives Verified 12/02/19 17:50 Anti-Inflamma lisinopril Allergy Unknown Verified 12/02/19 17:50 Sulfa (Sulfonamide AdvReac Mild Rash Verified 12/02/19 17:50 Antibiotics) Review of Systems - Constitutional Constitutional: reports: Fatigue, Weakness. denies: Fever, Chills - Eyes Eyes: reports: Vision loss - Ears, Nose & Throat Ears, Nose & Throat: reports: Hearing loss, Dentures, Dry mouth - Cardiovascular Cardiovascular: reports: Decr. exercise tolerance - Respiratory Respiratory: reports: SOB with exertion. denies: Cough, SOB at rest - Gastrointestinal Gastrointestinal: reports: Good appetite. denies: Nausea - Genitourinary Genitourinary: reports: Incontinence, Other (recurrent UTIS) - Musculoskeletal Musculoskeletal: reports: Back pain, Muscle aches, Stiffness, Limited range of motion, Muscle weakness, Joint pain, Assistive devices (walker) - Integumentary Integumentary: reports: Dryness, Other (candidiasis) - Neurological Neurological: reports: General weakness, Numbness (bilateral legs), Memory problems - Psychiatric Psychiatric: reports: Depression, Anxiety - Endocrine Endocrine: reports: Diabetes type 2 - Hematologic/Lymphatic Hematologic/Lymphatic: reports: Anemia, Recurrent infections - All Other Systems All Other Systems: reports: Other (limited with STM issues today) Physical Exam - Vital Signs Vital Signs: Vital Signs x48h Temp Pulse Pulse Pulse Pulse Resp BP 12/04/19 17:24 37 C 57 L 18 12/04/19 17:10 54 L 12/04/19 16:00 37 C 57 L 16 12/04/19 15:58 36.7 C 60 18 12/04/19 14:35 60 56 L 185/80 H 12/04/19 10:08 71 18 12/04/19 09:45 63 12/04/19 09:40 69 BP BP BP Pulse Ox 12/04/19 17:24 173/67 H 93 12/04/19 17:10 184/63 H 178/84 H 12/04/19 16:00 173/67 H 93 12/04/19 15:58 95 12/04/19 14:35 185/73 H 12/04/19 10:08 153/63 H 97 12/04/19 09:45 162/56 H 12/04/19 09:40 173/72 H - Physical Exam General Appearance: positive: Alert, Anxious (reports had panic attack earlier "chest pain" since resolved) Eyes Bilateral: positive: Normal inspection ENT: positive: Dentures Neck: positive: Trachea midline Cardiovascular: positive: Regular rate & rhythm Respiratory: positive: Diminished in bases. negative: Wheezes, Rales, Rhonchi Abdomen: positive: Non-tender, Soft, Obese Skin: positive: Pallor, Dryness, Bruising Extremities: positive: Pedal edema (trace) Neurologic/Psychiatric: positive: Oriented x3, Weakness, Flat affect Palliative Care - POLST Patient has POLST: No POLST Status: Full Code Pain: Pain worsening, Location (back; no pain meds since admit 12/01; having tremors and increasing discomfort) Tiredness/Fatigue: Severe (7-10) Drowsiness/Sedation: Mild (1-3) Nausea: None Anorexia: None Dyspnea: Moderate (4-6) Depression: Moderate (4-6) (reports bipolar with wide mood swings if doesn't stay on her meds) Anxiety: Severe (7-10) Feelings of wellbeing/Perceived Quality of Life: Fair, Acceptable, Worsening Sleep: Variable sleep pattern Constipation: Yes, Opoid induced, Intermittent constipation Performance Status: Patient reports current functional status is limited, both she and her confirm she spends most the time in bed. She reports she can walk to the bathroom with her walker which is about 15 feet. She has initiated care with [facility], but has not been able to do any follow-up with patient's multiple hospitalizations. - Palliative Care Discussion: Patient is quite clear she wants to go back home, though is able to acknowledge this plan has not been working. She is unable to really tell me what she might do differently. And does appear though she has support it is not adequate at this point in time to oversee care needs. When asked that she be willing if possible to go to a SNF for conditioning, she is somewhat resistant. She reports she has done this before, her perception it was not helpful. When speaking to her , he found that she was doing fairly well after that and was healthier, and able to participate more in her care and was improved. He reports her children and he would really like to see her not come home as ill as she has been, and a chance to get a little bit better. When I shared this with her, she would like to talk with her family about this. In particular her daughter Nat. When asked if Nat would be someone who could help oversee her medications, or provide more support regarding this, she was not adverse to this idea, but reports that they have their families as well. It has been more difficult for them with COVID-19, as far as family support. When I spoke with Edward, he reports that he has seen her continued decline, ports she does live in constant chronic pain, and is suffering frequently. He reports he is never able to complete her be compliant with her antibiotics, and he is not able to help her with this. She does not come out of her bedroom, if they bring her meals in. Reports she did have a stay in [place], and also had a stay in [place] right about the time of COVID-19. Reports she did not ever test positive, as she was on precautions because of possible C. difficile. When asked Edward if he felt he would be able to provide decision-making with his stroke residual for D POA, he did feel like he could do this. When asked that there is a formal D POA document, he thought it might actually name Alicia who is in [place]. Patient did not recall having 1, but was in agreement to have Kimberly is #1, and Nat as follow-up, Edward would be in agreement with this. We will try and follow-up on this tomorrow. Results - Lab Results Lab results reviewed: Yes Fish Bones: 12/04/19 05:10 12/04/19 05:10 Lab and Imaging Results: Lab Results x24hrs 12/04/19 12/04/19 12/04/19 Range/Units 16:05 14:15 14:15 WBC (4.8-10.8) x10^3/uL RBC (4.20-5.40) 10^6/uL Hgb (12.0-16.0) g/dL Hct (37.0-47.0) % MCV (81.0-99.0) fL MCH (27.0-31.0) pg MCHC (32.0-36.0) g/dL RDW (12.0-15.0) % Plt Count (130-450) 10^3/uL MPV (7.9-10.8) fL Neut # (Auto) (1.5-6.6) 10^3/uL Lymph # (Auto) (1.5-3.5) 10^3/uL [place] # (Auto) (0.0-1.0) 10^3/uL Eos # (Auto) (0.0-0.7) 10^3/uL Baso # (Auto) (0.0-0.1) 10^3/uL Absolute Nucleated RBC x10^3/uL Nucleated RBC % /100WBC Sodium (135-145) mmol/L Potassium (3.5-5.0) mmol/L Chloride (101-111) mmol/L Carbon Dioxide (21-32) mmol/L Anion Gap (6-13) BUN (6-20) mg/dL Creatinine (0.4-1.0) mg/dL Estimated GFR (MDRD) (>89) Glucose (70-100) mg/dL Calcium (8.5-10.3) mg/dL Troponin I High Sens 22.1 H* 24.1 H* (2.3-14.8) ng/L B-Natriuretic Peptide 617 H (5-100) pg/mL 12/04/19 12/04/19 Range/Units 05:10 05:10 WBC 7.3 (4.8-10.8) x10^3/uL RBC 3.25 L (4.20-5.40) 10^6/uL Hgb 9.4 L (12.0-16.0) g/dL Hct 31.4 L (37.0-47.0) % MCV 96.6 (81.0-99.0) fL MCH 28.9 (27.0-31.0) pg MCHC 29.9 L (32.0-36.0) g/dL RDW 14.8 (12.0-15.0) % Plt Count 285 (130-450) 10^3/uL MPV 9.8 (7.9-10.8) fL Neut # (Auto) 5.2 (1.5-6.6) 10^3/uL Lymph # (Auto) 1.2 L (1.5-3.5) 10^3/uL [place] # (Auto) 0.5 (0.0-1.0) 10^3/uL Eos # (Auto) 0.3 (0.0-0.7) 10^3/uL Baso # (Auto) 0.0 (0.0-0.1) 10^3/uL Absolute Nucleated RBC 0.00 x10^3/uL Nucleated RBC % 0.0 /100WBC Sodium 147 H (135-145) mmol/L Potassium 4.4 (3.5-5.0) mmol/L Chloride 114 H (101-111) mmol/L Carbon Dioxide 25 (21-32) mmol/L Anion Gap 8.0 (6-13) BUN 21 H (6-20) mg/dL Creatinine 2.1 H (0.4-1.0) mg/dL Estimated GFR (MDRD) 23 L (>89) Glucose 102 H (70-100) mg/dL Calcium 9.1 (8.5-10.3) mg/dL Troponin I High Sens (2.3-14.8) ng/L B-Natriuretic Peptide (5-100) pg/mL Impression and Recommendations - Palliative Care Impression: This is a 69-year-old woman who has bipolar disease, history of frequent and recurrent UTIs, frequent hospitalizations, presenting with failure to thrive, with altered mental status, declining functional status, poorly managed diabetes, presenting with dehydration and AK I as well as encephalopathy this admit.Patient with poor insight, complex social situation, and overall declining health. Palliative care referral to meet with patient and try and define goals of care. Recommendations/Counseling Done: 1. Chronic back pain. Patient has long-term worsening chronic back pain, most likely exacerbated by her sedentary in bed bound status. Patient is been self managing her pain meds, with poor compliance and insight. Patient would benefit from further oversight and improved adherence. Patient with little social support to be able to complete this. Patient is willing at this point in time to allow others to manage her pain medications at this point per her acknowledgment is not working. Patient does need to restart, given her underlying chronic issues as well as concern for withdrawals. Patient would benefit from environment where she is having more multimodal approach with therapy and oversight for medication. 2. Encephalopathy. Patient does appear much clearer today, has very little recall of events leading to her current hospitalization. She also has very poor insight into her behaviors that has led up to this. She does perceive every time she comes to hospital she backslide's. She is able to engage in conversation, palliative care working on setting up rapport. 3. Bipolar disorder. Patient reports she is usually well controlled if she is on her regular medications. If not she reports she gets somewhat "like a [place]". She is not being seen by psychiatry or other mental health services at this point in time. 4. Generalized weakness. Patient continues to decline functionally, adding to her worsening back pain, poor self-care, and loss of independence. Patient would benefit from a senior care stay, her family are in hopes that this would be possible after this stay. As she did fail at home after just 2 or 3 days. 5. Advanced care planning. Patient has very little insight into her deteriorating health, and her contributions of her behavior related to this. We did discuss Carolann ABEBE, would like Edward to be primary, and Nat her daughter follow- up. She is willing to have me talk both to Edward and Nat, family does recognize this is not working well at home. Patient on the other hand has very little insight. Time Spent: 75 minutes with greater than 50% of this done in counseling regarding goals of care, pain and symptom management, and anticipatory guidance coordination with hospital team.
[2019-12-04] MEDS ORDERED: hydrALAZINE INJ 20 MG/ML VIAL IVP PRN (18:13)
[2019-12-04] MEDS ORDERED: hydrALAZINE INJ 20 MG/ML VIAL IVP STA (20:13)
[2019-12-04] MEDS: oxyCODONE 5 MG TABLET PO PRN (20:27)
[2019-12-04] MEDS: risperiDONE 1 MG TABLET PO SCH (20:27)
[2019-12-05] MEDS: SODIUM CHLORIDE FLUSH 0.9% 10 ML SYRINGE IVP SCH ×3 (00:20→20:17)
[2019-12-05] MEDS: ACETAMINOPHEN 325 MG TABLET PO PRN ×2 (02:40→08:40)
[2019-12-05] MEDS: SODIUM CHLORIDE 0.45% 1,000 ML IV SCH ×2 (03:24→18:04)
[2019-12-05] MEDS: oxyCODONE 5 MG TABLET PO PRN ×2 (03:56→11:35)
[2019-12-05 05:40] LABS: BASOPHILS % (AUTO) 0.6 %; EOSINOPHILS # (AUTO) 0.3 10^3/uL (0.0-0.7); EOSINOPHILS % (AUTO) 4.6 %; HGB - HEMOGLOBIN 10.2 g/dL (12.0-16.0); LYMPHOCYTES # (AUTO) 1.3 10^3/uL (1.5-3.5); LYMPHOCYTES % (AUTO) 18.6 %; MEAN CORPUSCULAR HGB CONC 29.2 g/dL (32.0-36.0); MEAN CORPUSCULAR VOLUME 95.9 fL (81.0-99.0); MEAN PLATELET VOLUME 10.2 fL (7.9-10.8); MONOCYTES # (AUTO) 0.6 10^3/uL (0.0-1.0); MONOCYTES % (AUTO) 8.5 %; NEUTROPHILS # (AUTO) 4.8 10^3/uL (1.5-6.6); NEUTROPHILS % (AUTO) 67.1 %; PLT - PLATELET COUNT 343 10^3/uL (130-450); RED BLOOD COUNT 3.64 10^6/uL (4.20-5.40); WHITE BLOOD COUNT 7.1 x10^3/uL (4.8-10.8)
[2019-12-05 06:04] LABS: CALCIUM 9.4 mg/dL (8.5-10.3)
[2019-12-05 06:21] LABS: FOLATE 6.03 ng/mL (5.90 - >24.8)
[2019-12-05] MEDS: LEVOTHYROXINE 25 MCG TABLET PO SCH (06:50)
[2019-12-05] MEDS: PANTOPRAZOLE 40 MG TABLET PO SCH (06:50)
[2019-12-05] MEDS ORDERED: SODIUM CHLORIDE 0.45% 1,000 ML IV SCH ×2 (07:59→13:45)
[2019-12-05] MEDS: DOCUSATE SODIUM 250 MG CAPSULE PO SCH (08:34)
[2019-12-05] MEDS: gemfibroziL 600 MG TABLET PO SCH ×2 (08:34→21:08)
[2019-12-05] MEDS: SENNA 8.6 MG TABLET PO SCH (08:35)
[2019-12-05] MEDS: VENLAFAXINE 37.5 MG TABLET PO SCH ×2 (08:35→21:08)
[2019-12-05] MEDS: LITHIUM ER 300 MG TABLET PO SCH (08:35)
[2019-12-05] MEDS: METOPROLOL SUCCINATE 50 MG TABLET PO SCH (08:36)
[2019-12-05] MEDS: NYSTATIN CREAM 15 GM TUBE TOP SCH ×2 (08:37→21:08)
[2019-12-05] MEDS: HEPARIN 5,000 UNIT/ML VIAL SUBQ SCH ×2 (08:39→21:11)
[2019-12-05] MEDS: polyethylene glycoL 3350 17 GM PACKET PO SCH (08:40)
[2019-12-05] MEDS ORDERED: MORPHINE SULFATE ER 30 MG TABLET PO PRN (11:13)
[2019-12-05] MEDS: LORazepam 0.5 MG TABLET PO PRN ×2 (11:35→20:13)
--- NOTE | 2019-12-05 13:54 | PROVIDER PROGRESS NOTE ---
Subjective - Prog Note Date Prog Note Date: 12/05/19 - Subjective Pt reports feeling: Improved Subjective: Patient refused to be DC to the SNF. She stated she had bad experience when she was DC to SNF. Patient today at this time she is very serious thinking for medical compliant. Patient has caregiver for 5 day/week. She has not let other manage her medications special her pain meds in the home. I will call her primary care doctor Dr. Bustos office, her nurse who she was very familiar with the patient answer my question.Nurse Hope she state she is very difficult to make patient go to Dr. Bustos's office for appointments. we agreewe could gradually reduce some of the patient's pain medication. it seems patient in this re-admission in 18 days have a problem for lethargy and sleeping more in the home, pt was likely taken too much pain meds at home. We will continue patient Morphine ER 15 mg twice daily as needed, oxycodone 10 mg twice daily as needed. We will resume patient's home physical therapist and occupational therapist. I called patient caregiver Maria Ines and leave a message for her, and help she call me back for to discuss patient care management. Current Medications - Current Medications Current Medications: Active Medications Acetaminophen (Tylenol) 650 mg PO Q4HR PRN PRN Reason: Pain 1 to 4 Last Admin: 12/05/19 08:40 Dose: 650 mg Documented by: Docusate Sodium (Colace 250mg Capsule) 250 mg PO DAILY [facility] Last Admin: 12/05/19 08:34 Dose: 250 mg Documented by: Gabapentin (Neurontin) 200 mg PO QPM PRN PRN Reason: PERIPHERIAL NEUROPATHY Gemfibrozil (Lopid) 600 mg PO BID [facility] Last Admin: 12/05/19 08:34 Dose: 600 mg Documented by: Heparin Sodium (Porcine) () 5,000 unit SUBQ BID [facility] Last Admin: 12/05/19 08:39 Dose: 5,000 unit Documented by: Hydralazine HCl (Apresoline Inj) 10 mg IVP TID PRN PRN Reason: Hypertensive Emergency Last Admin: 12/04/19 19:01 Dose: 10 mg Documented by: Sodium Chloride (Normal Saline 0.45%) 1,000 mls @ 83.3 mls/hr IV .Q12H1M [facility] Stop: 12/06/19 13:45 Levothyroxine Sodium (Synthroid) 50 mcg PO QDAC [facility] Last Admin: 12/05/19 06:50 Dose: 50 mcg Documented by: [place] Carbonate (Lithobid) 300 mg PO DAILY [facility] Last Admin: 12/05/19 08:35 Dose: 300 mg Documented by: Lorazepam (Ativan) 0.5 mg PO BID PRN PRN Reason: Anxiety Last Admin: 12/05/19 11:35 Dose: 0.5 mg Documented by: Metoprolol Succinate (Toprol Xl) 50 mg PO DAILY [facility] Last Admin: 12/05/19 08:36 Dose: 50 mg Documented by: Mineral Oil (Cavilon) 1 applic TOP PRN PRN PRN Reason: Skin Care Last Admin: 12/04/19 05:34 Dose: 1 applic Documented by: Morphine Sulfate () 15 mg PO BID PRN PRN Reason: PAIN Nystatin (Mycostatin Cream) 1 applic TOP BID [facility] Last Admin: 12/05/19 08:37 Dose: 1 applic Documented by: Oxycodone HCl (Roxicodone) 10 mg PO BID PRN PRN Reason: Breakthrough Pain Last Admin: 12/05/19 11:35 Dose: 10 mg Documented by: Pantoprazole Sodium (Protonix) 40 mg PO QDAC [facility] Last Admin: 12/05/19 06:50 Dose: 40 mg Documented by: Polyethylene Glycol (Miralax) 17 gm PO DAILY [facility] Last Admin: 12/05/19 08:40 Dose: 17 gm Documented by: Risperidone (Risperdal) 1 mg PO QPM [facility] Last Admin: 12/04/19 20:27 Dose: 1 mg Documented by: Jim (Senokot) 8.6 mg PO DAILY [facility] Last Admin: 12/05/19 08:35 Dose: 8.6 mg Documented by: Sodium Chloride (Normal Saline Flush 0.9%) 10 ml IVP PRN PRN PRN Reason: NEEDED PER PROVIDER ORDERS Sodium Chloride (Normal Saline Flush 0.9%) 10 ml IVP 0100,0900,1700 [facility] Last Admin: 12/05/19 08:37 Dose: Not Given Documented by: Venlafaxine HCl (Effexor) 75 mg PO BID [facility] Last Admin: 12/05/19 08:35 Dose: 75 mg Documented by: Morphine Sulfate [Morphine Sulfate ER] 30 mg PO BID PRN 11/15/19 Omeprazole 20 mg PO DAILY 11/15/19 Cimetidine 400 mg PO BID PRN 11/26/19 Gabapentin 100 - 200 mg PO QPM PRN 11/26/19 Objective - Vital Signs/Intake & Output Vital Signs: Vital Signs x48h Temp Pulse Pulse Pulse Resp BP BP 12/05/19 11:05 60 56 L 185/80 H 12/05/19 07:56 36.6 C 68 18 169/72 H BP Pulse Ox 12/05/19 11:05 185/73 H 12/05/19 07:56 98 Intake & Output: Intake & Output 12/02/19 12/03/19 12/04/19 12/05/19 23:59 23:59 23:59 23:59 Intake Total 1525 3885 3727.667 524 Output Total 2700 6000 1350 Balance 1525 1185 -1892.333 -826 - Objective General Appearance: positive: No acute distress, Alert. negative: Lethargic Eyes Bilateral: positive: Normal inspection, PERRL, No lid inflammation ENT: positive: ENT inspection nml, No signs of dehydration. negative: Purulent nasal drainage Neck: positive: Nml inspection, Thyroid nml, Trachea midline. negative: Thyromegaly, Stiff neck, Tracheal deviation Respiratory: positive: Chest non-tender, No respiratory distress. negative: Wheezes, Rales Cardiovascular: positive: Regular rate & rhythm, No murmur. negative: Irregularly irregular, Tachycardia, Bradycardia, Systolic murmur, Diastolic murmur Peripheral Pulses: 2+ Radial (R), 2+ Radial (L), 2+ Dorsalis pedis (R), 2+ Dorsalis pedis (L) Abdomen: positive: Non-tender, No organomegaly, Nml bowel sounds. negative: Tenderness, Guarding, Rebound Back: positive: Nml inspection. negative: CVA tenderness (R), CVA tenderness (L) Skin: positive: Color nml, No rash, Warm, Dry. negative: Cyanosis, Diaphoresis, Pallor Extremities: positive: Non-tender, Nml appearance. negative: Calf tenderness, Xiomy's sign/cords Neurologic/Psychiatric: positive: Sensation nml. negative: Weakness, Sensory loss, Facial droop, Slurred/abnml speech, Depressed mood/affect - Lab Results Fish Bones: 12/05/19 05:04 12/05/19 05:04 Other Labs: Lab Results x24hrs 12/05/19 12/05/19 12/05/19 Range/Units 05:04 05:04 05:04 WBC (4.8-10.8) x10^3/uL RBC (4.20-5.40) 10^6/uL Hgb (12.0-16.0) g/dL Hct (37.0-47.0) % MCV (81.0-99.0) fL MCH (27.0-31.0) pg MCHC (32.0-36.0) g/dL RDW (12.0-15.0) % Plt Count (130-450) 10^3/uL MPV (7.9-10.8) fL Neut # (Auto) (1.5-6.6) 10^3/uL Lymph # (Auto) (1.5-3.5) 10^3/uL [place] # (Auto) (0.0-1.0) 10^3/uL Eos # (Auto) (0.0-0.7) 10^3/uL Baso # (Auto) (0.0-0.1) 10^3/uL Absolute Nucleated RBC x10^3/uL Nucleated RBC % /100WBC Sodium 143 (135-145) mmol/L Potassium 4.3 (3.5-5.0) mmol/L Chloride 112 H (101-111) mmol/L Carbon Dioxide 24 (21-32) mmol/L Anion Gap 7.0 (6-13) BUN 17 (6-20) mg/dL Creatinine 2.0 H (0.4-1.0) mg/dL Estimated GFR (MDRD) 25 L (>89) Glucose 121 H (70-100) mg/dL Calcium 9.4 (8.5-10.3) mg/dL Iron 49 (28-170) ug/dL TIBC 441 (250-450) ug/dL % Saturation 11 L (20-50) % Transferrin 315 (192-382) mg/dL Troponin I High Sens (2.3-14.8) ng/L B-Natriuretic Peptide 548 H (5-100) pg/mL Vitamin B12 419 (180-914) pg/mL Folate 6.03 (5.90 - >24.8) ng/mL 12/05/19 12/04/19 12/04/19 Range/Units 05:04 16:05 14:15 WBC 7.1 (4.8-10.8) x10^3/uL RBC 3.64 L (4.20-5.40) 10^6/uL Hgb 10.2 L (12.0-16.0) g/dL Hct 34.9 L (37.0-47.0) % MCV 95.9 (81.0-99.0) fL MCH 28.0 (27.0-31.0) pg MCHC 29.2 L (32.0-36.0) g/dL RDW 15.0 (12.0-15.0) % Plt Count 343 (130-450) 10^3/uL MPV 10.2 (7.9-10.8) fL Neut # (Auto) 4.8 (1.5-6.6) 10^3/uL Lymph # (Auto) 1.3 L (1.5-3.5) 10^3/uL [place] # (Auto) 0.6 (0.0-1.0) 10^3/uL Eos # (Auto) 0.3 (0.0-0.7) 10^3/uL Baso # (Auto) 0.0 (0.0-0.1) 10^3/uL Absolute Nucleated RBC 0.00 x10^3/uL Nucleated RBC % 0.0 /100WBC Sodium (135-145) mmol/L Potassium (3.5-5.0) mmol/L Chloride (101-111) mmol/L Carbon Dioxide (21-32) mmol/L Anion Gap (6-13) BUN (6-20) mg/dL Creatinine (0.4-1.0) mg/dL Estimated GFR (MDRD) (>89) Glucose (70-100) mg/dL Calcium (8.5-10.3) mg/dL Iron (28-170) ug/dL TIBC (250-450) ug/dL % Saturation (20-50) % Transferrin (192-382) mg/dL Troponin I High Sens 22.1 H* (2.3-14.8) ng/L B-Natriuretic Peptide 617 H (5-100) pg/mL Vitamin B12 (180-914) pg/mL Folate (5.90 - >24.8) ng/mL 12/04/19 Range/Units 14:15 WBC (4.8-10.8) x10^3/uL RBC (4.20-5.40) 10^6/uL Hgb (12.0-16.0) g/dL Hct (37.0-47.0) % MCV (81.0-99.0) fL MCH (27.0-31.0) pg MCHC (32.0-36.0) g/dL RDW (12.0-15.0) % Plt Count (130-450) 10^3/uL MPV (7.9-10.8) fL Neut # (Auto) (1.5-6.6) 10^3/uL Lymph # (Auto) (1.5-3.5) 10^3/uL [place] # (Auto) (0.0-1.0) 10^3/uL Eos # (Auto) (0.0-0.7) 10^3/uL Baso # (Auto) (0.0-0.1) 10^3/uL Absolute Nucleated RBC x10^3/uL Nucleated RBC % /100WBC Sodium (135-145) mmol/L Potassium (3.5-5.0) mmol/L Chloride (101-111) mmol/L Carbon Dioxide (21-32) mmol/L Anion Gap (6-13) BUN (6-20) mg/dL Creatinine (0.4-1.0) mg/dL Estimated GFR (MDRD) (>89) Glucose (70-100) mg/dL Calcium (8.5-10.3) mg/dL Iron (28-170) ug/dL TIBC (250-450) ug/dL % Saturation (20-50) % Transferrin (192-382) mg/dL Troponin I High Sens 24.1 H* (2.3-14.8) ng/L B-Natriuretic Peptide (5-100) pg/mL Vitamin B12 (180-914) pg/mL Folate (5.90 - >24.8) ng/mL ABX Reporting Has patient been on IV antibiotics over the past 48 hours?: No Assessment/Plan - Problem List (1) VICKIE (acute kidney injury) Impression: Improved, cleared clinically is 2.0, she usually needs a 1.5-1.7, we will continue hydration with the patient and continue clinical laboratory medical director patient Advised the patient keep hydration in the home, this is a one of the medical issues for her readmission, she do think seriously and she states she will keep hydration the home, renal social worker consult to pt's medical safely d/c to home. pt Refused to discharge to SNF. (2)chest pain Resolved, patient has no chest pain or discomfortable today, patient has unremarkable troponin, unchanged EKG, patient had recently echo study, patient have normal EF and unremarkable echo test. (3) Hypernatremia Assessment/Plan: resolved. (4) HTN (hypertension) Assessment/Plan: Systolic blood pressure in the 180s. Patient has hydralazine intravenous as needed continue her usual Metoprolol dose. add Amlodipine 5 mg daily (5) Encephalopathy Assessment/Plan: resolved. as her baseline (6) At risk for unsafe behavior Assessment/Plan: Patient had a severe admission here 18 days, patient has issue for medical compliance. Patient refuses be d/c to SNF. Discussed care plan as the above with the patient, patient primary care, palliative care, the leave message for patient's caregiver. (7) Bipolar disorder Assessment/Plan: Stable, Patient's lithium level was 0.95 which is within therapeutic limits. Will resume [place] dose and the Venlafaxine and Risperdal. (8) Hypothyroidism Assessment/Plan: Patient has normal TSH recently, Continue on her home dose of Synthroid. (9) Anemia Assessment/Plan: chronic, stable.
[2019-12-05] MEDS ORDERED: amLODIPine 5 MG TABLET PO SCH (16:00)
[2019-12-05] MEDS: GABAPENTIN 100 MG CAPSULE PO PRN (16:38)
--- NOTE | 2019-12-05 17:52 | CONSULTATION NOTE ---
Palliative Care Follow Up - Referral Referring Provider: Gayle Brewer MD Time of Visit: 12-1300 Referral setting: Hospitalized patient Referral Reason: Goals of Care/FTT - Information Sources Records reviewed: Previous records reviewed History/Review of Systems obtained from: Patient, Other (spoke with Maria Ines who does meds/Maria Ines Bravo RN) Exam limitations: Clinical condition - History of Present Illness Update Brief HPI Update: This is a 69-year-old woman who was admitted to [facility] with altered me ntal status, with a third admission in 18 days. She has had long-term, multiple urinary tract infections, complicated by her poor hygiene and poor adherence with medications including antibiotics. She presents again with acute kidney injury and dehydration, she was not with infection at this point time. Patient has poor recall or insight into how she got where she is, she is quite clear today, she does remember meeting with me but not what series of events led to her current situation. The hope that been patient would be agreement to transition to retirement, patient is quite adamant. She reports she is "highly motivated" to go home and handle this herself. When following up with Maria Ines [phone], She is been setting up Mediset's for her for over a year. Reports patient is nonadherent, often misses about 25% of her a.m. doses. She reports she is on automatic refill for her medications, and in fact has hardly taken any of her pain medications from the bottles at her bedside, as they had sent more in. So unclear exactly what patient took prior to admit. She reports patient sleeps most of the time, is up maybe 4 or 5 hours, often does not bathe for weeks. When asked patient about her opioid she reports she is very careful with them, though she asked me what it meant to take the oxycodone as needed. Maria Ines Bravo home health RN, has only been out once, reports it is quite disorganized, she will follow-up with FILLER SIFTER MACHINE. Patient does have [facility] education and outreach coordinator Marysol RASCON, patient's actually has caregiving hours as well, they combine it with 1 caregiver 2/2. Maria Ines his been with patient over a year, recommends that she would more likely benefit from having support in the evenings, to help with meals, encourage eating, and drinking. I did try to follow-up with her Edward, had several hang ups with the phone. Social History - Living Situation Living arrangement: At home Living Situation: With spouse/s.o. Support System: Patient lives at home with her , who is had a stroke with short-term memory issues. He does admit is unable to oversee her care, but is able to engage in conversation is obviously very fond of her. He is worried though about her coming home, was hopeful she was going to choose SNF placement. She has a daughter in [place], and [place], though reports they are not providing much assistance though has been his said they are providing help with household upkeep. Medications/Allergies - Medications Active Medication List: Active Medications Acetaminophen (Tylenol) 650 mg PO Q4HR PRN PRN Reason: Pain 1 to 4 Last Admin: 12/05/19 08:40 Dose: 650 mg Documented by: Amlodipine Besylate (Norvasc) 5 mg PO DAILY [facility] Last Admin: 12/05/19 16:34 Dose: 5 mg Documented by: Docusate Sodium (Colace 250mg Capsule) 250 mg PO DAILY [facility] Last Admin: 12/05/19 08:34 Dose: 250 mg Documented by: Gabapentin (Neurontin) 200 mg PO QPM PRN PRN Reason: PERIPHERIAL NEUROPATHY Last Admin: 12/05/19 16:38 Dose: 200 mg Documented by: Gemfibrozil (Lopid) 600 mg PO BID [facility] Last Admin: 12/05/19 08:34 Dose: 600 mg Documented by: Heparin Sodium (Porcine) () 5,000 unit SUBQ BID [facility] Last Admin: 12/05/19 08:39 Dose: 5,000 unit Documented by: Hydralazine HCl (Apresoline Inj) 10 mg IVP TID PRN PRN Reason: Hypertensive Emergency Last Admin: 12/04/19 19:01 Dose: 10 mg Documented by: Sodium Chloride (Normal Saline 0.45%) 1,000 mls @ 83.3 mls/hr IV .Q12H1M [facility] Stop: 12/06/19 13:45 Last Admin: 12/05/19 15:39 Dose: 83.3 mls/hr Documented by: Levothyroxine Sodium (Synthroid) 50 mcg PO QDAC [facility] Last Admin: 12/05/19 06:50 Dose: 50 mcg Documented by: [place] Carbonate (Lithobid) 300 mg PO DAILY [facility] Last Admin: 12/05/19 08:35 Dose: 300 mg Documented by: Lorazepam (Ativan) 0.5 mg PO BID PRN PRN Reason: Anxiety Last Admin: 12/05/19 11:35 Dose: 0.5 mg Documented by: Metoprolol Succinate (Toprol Xl) 50 mg PO DAILY [facility] Last Admin: 12/05/19 08:36 Dose: 50 mg Documented by: Mineral Oil (Cavilon) 1 applic TOP PRN PRN PRN Reason: Skin Care Last Admin: 12/04/19 05:34 Dose: 1 applic Documented by: Morphine Sulfate () 15 mg PO BID PRN PRN Reason: PAIN Nystatin (Mycostatin Cream) 1 applic TOP BID [facility] Last Admin: 12/05/19 08:37 Dose: 1 applic Documented by: Oxycodone HCl (Roxicodone) 10 mg PO BID PRN PRN Reason: Breakthrough Pain Last Admin: 12/05/19 11:35 Dose: 10 mg Documented by: Pantoprazole Sodium (Protonix) 40 mg PO QDAC [facility] Last Admin: 12/05/19 06:50 Dose: 40 mg Documented by: Polyethylene Glycol (Miralax) 17 gm PO DAILY [facility] Last Admin: 12/05/19 08:40 Dose: 17 gm Documented by: Risperidone (Risperdal) 1 mg PO QPM [facility] Last Admin: 12/04/19 20:27 Dose: 1 mg Documented by: Senna (Senokot) 8.6 mg PO DAILY [facility] Last Admin: 12/05/19 08:35 Dose: 8.6 mg Documented by: Sodium Chloride (Normal Saline Flush 0.9%) 10 ml IVP PRN PRN PRN Reason: NEEDED PER PROVIDER ORDERS Sodium Chloride (Normal Saline Flush 0.9%) 10 ml IVP 0100,0900,1700 [facility] Last Admin: 12/05/19 08:37 Dose: Not Given Documented by: Venlafaxine HCl (Effexor) 75 mg PO BID [facility] Last Admin: 12/05/19 08:35 Dose: 75 mg Documented by: Morphine Sulfate [Morphine Sulfate ER] 30 mg PO BID PRN 11/15/19 Omeprazole 20 mg PO DAILY 11/15/19 Cimetidine 400 mg PO BID PRN 11/26/19 Gabapentin 100 - 200 mg PO QPM PRN 11/26/19 - Allergies Allergies/Adverse Reactions: Allergies Allergy/AdvReac Type Severity Reaction Status Date / Time NSAIDS (Non-Steroidal Allergy Mild Hives Verified 12/02/19 17:50 Anti-Inflamma lisinopril Allergy Unknown Verified 12/02/19 17:50 Sulfa (Sulfonamide AdvReac Mild Rash Verified 12/02/19 17:50 Antibiotics) Review of Systems - Constitutional Constitutional: reports: Fatigue, Poor appetite. denies: Fever, Chills - Eyes Eyes: reports: Vision loss - Ears, Nose & Throat Ears, Nose & Throat: reports: Dentures, Dry mouth - Cardiovascular Cardiovascular: reports: Decr. exercise tolerance. denies: Chest pain - Respiratory Respiratory: reports: SOB with exertion - Gastrointestinal Gastrointestinal: reports: Abdominal distention, Early satiety - Genitourinary Genitourinary: reports: Incontinence - Musculoskeletal Musculoskeletal: reports: Back pain, Muscle aches, Stiffness, Limited range of motion, Muscle weakness, Assistive devices (uses walker; says she has better one at home) - Integumentary Integumentary: reports: Dryness, Other (candidiasis; does not bath at home often) - Neurological Neurological: reports: General weakness, Numbness, Memory problems, Other (patient reports dysnomia for 30 years; people often think she is confused; or "stupid") - Psychiatric Psychiatric: reports: Depression, Anxiety - Endocrine Endocrine: reports: Diabetes type 2 - Hematologic/Lymphatic Hematologic/Lymphatic: reports: Anemia, Recurrent infections (UTIs/negative this stay) - All Other Systems All Other Systems: reports: Reviewed and negative Physical Exam - Vital Signs Vital Signs: Vital Signs x48h Temp Pulse Pulse Pulse Resp BP BP 12/05/19 17:36 51 L 176/71 H 12/05/19 16:00 36.3 C L 60 20 171/73 H 12/05/19 11:05 60 56 L 185/80 H BP Pulse Ox 12/05/19 17:36 12/05/19 16:00 98 12/05/19 11:05 185/73 H - Physical Exam General Appearance: positive: Alert, Anxious (reports had panic attack earlier "chest pain" since resolved) Eyes Bilateral: positive: Normal inspection ENT: positive: Dentures Neck: positive: Trachea midline Cardiovascular: positive: Regular rate & rhythm Respiratory: positive: Diminished in bases. negative: Wheezes, Rales, Rhonchi Abdomen: positive: Non-tender, Soft, Obese Skin: positive: Pallor, Dryness, Bruising Extremities: positive: Pedal edema (trace) Neurologic/Psychiatric: positive: Oriented x3, Weakness, Flat affect Palliative Care - POLST Patient has POLST: No POLST Status: Full Code Pain: Pain worsening, Location (back; Patient reports walking makes it worse, that is why she is more sedentary and spends more time in the bed. She does agree to try and titrate back her medications, reviewed how long-acting and short acting medications work, discussion given patient is not compliant, and most likely not using a) Tiredness/Fatigue: Moderate (4-6) Drowsiness/Sedation: Moderate (4-6) Constipation: Yes, Opoid induced, Intermittent constipation Performance Status: Patient does understand she needs to increase her activity, she is stating she will cooperate with home PT. Her goal is to [facility] then to [facility], where they have [facility]a therapy. She says she has been there before. We discussed if she does not participate, she will be back here again, and then most likely place as she is not safe to return home. She does verbalize understanding, now that she is more clear. - Palliative Care Discussion: Patient is quite tearful, as she is mad at her family if they wanted her to go to SNF, where they appear visiting and talking to her about it. She reports nobody is called, though is contraindicated because she did talk about speaking with Edward. We did discuss my concern that she does not have her D POA finalize, she reports she does not have a document, we discussed at this point it would fall to Edward. She states she does have concerns regarding Edward being able to manage given that he has had a stroke, we discussed by law it would default to him. She would want Alicia actually her daughter in [place] as backup. I gave her the D POA form, and encouraged her to complete this after she talks to Edward, she did not want offend him and put 1 of the daughters first. Though is concer dustin. I expressed my concern as well that if she comes back again and is as sick as she has been that we do need this clarified.Patient does perceive that she is deteriorating, this is quite upsetting to her, it is unclear if she has the resources both emotionally and physically to make needed changes. Results - Lab Results Lab results reviewed: Yes Fish Bones: 12/05/19 05:04 12/05/19 05:04 Lab and Imaging Results: Lab Results x24hrs 12/05/19 12/05/19 12/05/19 Range/Units 05:04 05:04 05:04 WBC (4.8-10.8) x10^3/uL RBC (4.20-5.40) 10^6/uL Hgb (12.0-16.0) g/dL Hct (37.0-47.0) % MCV (81.0-99.0) fL MCH (27.0-31.0) pg MCHC (32.0-36.0) g/dL RDW (12.0-15.0) % Plt Count (130-450) 10^3/uL MPV (7.9-10.8) fL Neut # (Auto) (1.5-6.6) 10^3/uL Lymph # (Auto) (1.5-3.5) 10^3/uL [place] # (Auto) (0.0-1.0) 10^3/uL Eos # (Auto) (0.0-0.7) 10^3/uL Baso # (Auto) (0.0-0.1) 10^3/uL Absolute Nucleated RBC x10^3/uL Nucleated RBC % /100WBC Sodium 143 (135-145) mmol/L Potassium 4.3 (3.5-5.0) mmol/L Chloride 112 H (101-111) mmol/L Carbon Dioxide 24 (21-32) mmol/L Anion Gap 7.0 (6-13) BUN 17 (6-20) mg/dL Creatinine 2.0 H (0.4-1.0) mg/dL Estimated GFR (MDRD) 25 L (>89) Glucose 121 H (70-100) mg/dL Calcium 9.4 (8.5-10.3) mg/dL Iron 49 (28-170) ug/dL TIBC 441 (250-450) ug/dL % Saturation 11 L (20-50) % Transferrin 315 (192-382) mg/dL B-Natriuretic Peptide 548 H (5-100) pg/mL Vitamin B12 419 (180-914) pg/mL Folate 6.03 (5.90 - >24.8) ng/mL 12/05/19 Range/Units 05:04 WBC 7.1 (4.8-10.8) x10^3/uL RBC 3.64 L (4.20-5.40) 10^6/uL Hgb 10.2 L (12.0-16.0) g/dL Hct 34.9 L (37.0-47.0) % MCV 95.9 (81.0-99.0) fL MCH 28.0 (27.0-31.0) pg MCHC 29.2 L (32.0-36.0) g/dL RDW 15.0 (12.0-15.0) % Plt Count 343 (130-450) 10^3/uL MPV 10.2 (7.9-10.8) fL Neut # (Auto) 4.8 (1.5-6.6) 10^3/uL Lymph # (Auto) 1.3 L (1.5-3.5) 10^3/uL [place] # (Auto) 0.6 (0.0-1.0) 10^3/uL Eos # (Auto) 0.3 (0.0-0.7) 10^3/uL Baso # (Auto) 0.0 (0.0-0.1) 10^3/uL Absolute Nucleated RBC 0.00 x10^3/uL Nucleated RBC % 0.0 /100WBC Sodium (135-145) mmol/L Potassium (3.5-5.0) mmol/L Chloride (101-111) mmol/L Carbon Dioxide (21-32) mmol/L Anion Gap (6-13) BUN (6-20) mg/dL Creatinine (0.4-1.0) mg/dL Estimated GFR (MDRD) (>89) Glucose (70-100) mg/dL Calcium (8.5-10.3) mg/dL Iron (28-170) ug/dL TIBC (250-450) ug/dL % Saturation (20-50) % Transferrin (192-382) mg/dL B-Natriuretic Peptide (5-100) pg/mL Vitamin B12 (180-914) pg/mL Folate (5.90 - >24.8) ng/mL Impression and Recommendations - Palliative Care Impression: This is a 69-year-old woman who has bipolar disease, history of frequent and recurrent UTIs, and hospitalizations, presenting with failure to thrive, altered mental status attributed to medication misuse. She also has poorly managed diabetes, presented with dehydration and VICKIE, and encephalopathy this admit. Patient somewhat clear today, but continues with poor insight, has complex social situation and overall declining health. Recommendations/Counseling Done: 1. Chronic back pain. It is unclear what patient is actually been taking, person who is managing her medications Maria Ines, reports there are full prescriptions of bottles in the home, recommended they get this locked up. Consulted with hospitalist, recommend changing to 15 mg twice daily, and continue to titrate off as patient is able. Would also limit patient's access to her medications as far as she does have insight when she gets confused, she does not know what she takes. Would recommend allocating a safe amount at bedside, which is where she keeps her meds, and distributing these every few day s. Did speak with Maria Ines Lilly who is patient's housing project manager, she will be seen patient in transition. 2. Failure to thrive. Patient has very little insight to the seriousness of her situation. Patient does sleep most of the time, is sedentary, less most likely not eating or drinking adequate amounts as well as poor hygiene. Given her complex social situation, unclear if going to make any progress. Patient does want to try and go home, and "handle this myself". Patient remains at high risk for rehospitalization. 3. Advanced care planning. Patient difficulty talking about her current health care status, she is quite tearful. We did get as far as identifying need to establish D POA, have given her the form, unclear if she will actually follow through on this. Patient with multiple comorbidities, declining functional and cognitive status, poor medication adherence, complex social situation, as well as recurrent UTIs. Would expect continued functional and cognitive decline, and less caregiving situation and support improves. Time Spent: 60 minutes with greater than 50% of this done in counseling regarding medication adherence, coordination of care trying to put the pieces together, very complex social situation, with high risk for rehospitalization. Continue to build rapport with patient, particularly if she continues with frequent hospita lizations.
[2019-12-05] MEDS: MORPHINE ER 15 MG TABLET PO PRN (20:13)
[2019-12-05] MEDS: risperiDONE 1 MG TABLET PO SCH (21:08)
[2019-12-06] MEDS: SODIUM CHLORIDE FLUSH 0.9% 10 ML SYRINGE IVP SCH ×3 (01:11→16:10)
[2019-12-06] MEDS: SODIUM CHLORIDE 0.45% 1,000 ML IV SCH ×3 (03:47→16:40)
[2019-12-06 05:59] LABS: BASOPHILS # (AUTO) 0.1 10^3/uL (0.0-0.1); BASOPHILS % (AUTO) 0.7 %; EOSINOPHILS # (AUTO) 0.5 10^3/uL (0.0-0.7); HGB - HEMOGLOBIN 10.4 g/dL (12.0-16.0); LYMPHOCYTES # (AUTO) 1.6 10^3/uL (1.5-3.5); LYMPHOCYTES % (AUTO) 21.8 %; MEAN CORPUSCULAR HEMOGLOBIN 28.5 pg (27.0-31.0); MEAN CORPUSCULAR HGB CONC 29.8 g/dL (32.0-36.0); MEAN CORPUSCULAR VOLUME 95.6 fL (81.0-99.0); MEAN PLATELET VOLUME 9.9 fL (7.9-10.8); MONOCYTES # (AUTO) 0.5 10^3/uL (0.0-1.0); MONOCYTES % (AUTO) 7.6 %; NEUTROPHILS # (AUTO) 4.5 10^3/uL (1.5-6.6); NEUTROPHILS % (AUTO) 62.3 %; PLT - PLATELET COUNT 334 10^3/uL (130-450); RED BLOOD COUNT 3.65 10^6/uL (4.20-5.40); RED CELL DISTRIBUTION WIDTH 14.7 % (12.0-15.0); WHITE BLOOD COUNT 7.2 x10^3/uL (4.8-10.8)
[2019-12-06] MEDS: PANTOPRAZOLE 40 MG TABLET PO SCH (06:12)
[2019-12-06] MEDS: LEVOTHYROXINE 25 MCG TABLET PO SCH (06:13)
[2019-12-06 06:17] LABS: CALCIUM 9.8 mg/dL (8.5-10.3); CREATININE 1.8 mg/dL (0.4-1.0)
[2019-12-06] MEDS: gemfibroziL 600 MG TABLET PO SCH ×2 (09:07→21:27)
[2019-12-06] MEDS: LITHIUM ER 300 MG TABLET PO SCH (09:10)
[2019-12-06] MEDS: amLODIPine 5 MG TABLET PO SCH (09:11)
[2019-12-06] MEDS: DOCUSATE SODIUM 250 MG CAPSULE PO SCH (09:14)
[2019-12-06] MEDS: METOPROLOL SUCCINATE 50 MG TABLET PO SCH (09:16)
[2019-12-06] MEDS: HEPARIN 5,000 UNIT/ML VIAL SUBQ SCH ×2 (09:18→21:27)
[2019-12-06] MEDS: polyethylene glycoL 3350 17 GM PACKET PO SCH (09:30)
[2019-12-06] MEDS: SENNA 8.6 MG TABLET PO SCH (09:31)
[2019-12-06] MEDS: MORPHINE ER 15 MG TABLET PO PRN ×2 (09:33→19:43)
[2019-12-06] MEDS: VENLAFAXINE 37.5 MG TABLET PO SCH ×2 (09:34→21:27)
[2019-12-06] MEDS: NYSTATIN CREAM 15 GM TUBE TOP SCH ×2 (12:28→21:28)
--- NOTE | 2019-12-06 13:39 | PROVIDER PROGRESS NOTE ---
Assessment/Plan - Problem List (1) VICKIE (acute kidney injury) Assessment/Plan: Improved, patient's creatinine in the 1.8, Her creatinine is usually at 1.5-1.7. We will continue IVF hydration, and precaution of fluids overloaded. Advised the patient keep hydration in the home (2)medical noncompliance Called patient's primary care Dr. Fadi Bustos's office. Patient is very diffic ult to make an appointment with her PCP. called the patient nurse manager supply chain planning Maria Ines, Left message for her. Per Palliative care report, patient has many medications at home. She has been very poor manage of her medications, She does not let other people try to touch her medication, special her pain medications. Also patient is a very sedation in the home, barely eating and drinking. This is the main problem for her to have 3 admissions in the hospital in 18 days. Physical therapist therapist and occupational therapist recommendation patient d/c to SNF. She refused D/C to SNF on yesterday. But today she agree to be D/C to the SNF. Social work was consulted for safely D/C planning. custodial need Covid 19 test, order the test for patient. (3) Hypernatremia Assessment/Plan: resolved. (4) HTN (hypertension) Assessment/Plan: Systolic blood pressure in the 180s. Patient has hydralazine intravenous as needed continue her usual Metoprolol dose. add Amlodipine 5 mg daily (5) Encephalopathy Assessment/Plan: resolved. as her baseline (6) At risk for unsafe behavior Assessment/Plan: Patient had a severe admission here 18 days, patient has issue for medical compliance. Patient refuses be d/c to SNF. Discussed care plan as the above with the patient, patient primary care, palliative care, the leave message for patient's caregiver. (7) Bipolar disorder Assessment/Plan: Stable, Patient's lithium level was 0.95 which is within therapeutic limits. Will resume [employer] [employer] dose and the Venlafaxine and Risperdal. (8) Hypothyroidism Assessment/Plan: Patient has normal TSH recently, Continue on her home dose of Synthroid. (9) Anemia Assessment/Plan: chronic, stable. - Current Meds Current Meds: Current Medications Generic Name Dose Route Start Last Admin Trade Name Freq PRN Reason Stop Dose Admin Acetaminophen 650 mg 12/02/19 19:34 12/05/19 08:40 Tylenol PO 650 mg Q4HR PRN Administration Pain 1 to 4 Amlodipine Besylate 10 mg 12/06/19 09:00 12/06/19 09:11 Norvasc PO 10 mg DAILY JARETT Administration Docusate Sodium 250 mg 12/03/19 20:00 12/06/19 09:14 Colace 250mg Capsule PO 250 mg DAILY JARETT Administration Gabapentin 200 mg 12/04/19 08:16 12/05/19 16:38 Neurontin PO 200 mg QPM PRN Administration PERIPHERIAL NEUROPATHY Gemfibrozil 600 mg 12/04/19 09:00 12/06/19 09:07 Lopid PO 600 mg BID JARETT Administration Heparin Sodium (Porcine) 5,000 unit 12/02/19 21:00 12/06/19 09:18 SUBQ 5,000 unit BID JARETT Administration Hydralazine HCl 10 mg 12/04/19 18:13 12/04/19 19:01 Apresoline Inj IVP 10 mg TID PRN Administration Hypertensive Emergency Levothyroxine Sodium 50 mcg 12/05/19 07:00 12/06/19 06:13 Synthroid PO 50 mcg QDAC JARETT Administration [place] [employer] Carbonate 300 mg 12/04/19 09:00 12/06/19 09:10 Lithobid PO 300 mg DAILY JARETT Administration Lorazepam 0.5 mg 12/04/19 08:16 12/05/19 20:13 Ativan PO 0.5 mg BID PRN Administration Anxiety Metoprolol Succinate 50 mg 12/05/19 17:54 12/06/19 09:16 Toprol Xl PO 50 mg DAILY JARETT Administration Mineral Oil 1 applic 12/04/19 01:22 12/04/19 05:34 Cavilon TOP 1 applic PRN PRN Administration Skin Care Morphine Sulfate 15 mg 12/05/19 11:33 12/06/19 09:33 PO 15 mg BID PRN Administration PAIN Nystatin 1 applic 12/04/19 09:00 12/06/19 12:28 Mycostatin Cream TOP Not Given BID [facility] Oxycodone HCl 10 mg 12/05/19 11:12 12/05/19 11:35 Roxicodone PO 10 mg BID PRN Administration Breakthrough Pain Pantoprazole Sodium 40 mg 12/03/19 07:00 12/06/19 06:12 Protonix PO 40 mg QDAC JARETT Administration Polyethylene Glycol 17 gm 12/05/19 09:00 12/06/19 09:30 Miralax PO 17 gm DAILY JARETT Administration Risperidone 1 mg 12/04/19 21:00 12/05/19 21:08 Risperdal PO 1 mg QPM JARETT Administration Senna 8.6 mg 12/03/19 20:00 12/06/19 09:31 Senokot PO 8.6 mg DAILY JARETT Administration Sodium Chloride 10 ml 12/03/19 01:00 12/06/19 09:24 Normal Saline Flush 0.9% IVP Not Given 0100,0900,1700 JARETT Venlafaxine HCl 75 mg 12/04/19 09:00 12/06/19 09:34 Effexor PO 75 mg BID JARETT Administration - Lab Result Fish Bone Diagrams: 12/06/19 05:40 12/06/19 05:40 - Additional Planning My Orders: My Active Orders 12/05/19 17:54 Metoprolol Succinate [Toprol Xl] 50 mg PO DAILY 12/06/19 08:54 COVID-19 REFERENCE TEST Routine 12/06/19 09:00 amLODIPine [Norvasc] 10 mg PO DAILY 12/06/19 13:38 Sodium Chloride 0.45% [Normal Saline 0.45%] 1,000 ml IV 83.3 mls/hr Subjective - Subjective Patient Reports: Feeling Better Objective Vital Signs: Vital Signs - 24 hr 12/05/19 12/05/19 12/05/19 16:00 17:36 20:08 Temperature 36.3 C L Heart Rate [ 60 51 L 58 L Brachial] Respiratory 20 Rate Blood Pressure [Left Brachial artery] Blood Pressure 171/73 H 176/71 H 155/65 H [Right Brachial artery] O2 Saturation 98 12/06/19 12/06/19 12/06/19 00:00 00:15 08:00 Temperature 36.5 C 36.5 C Heart Rate [ 59 L 69 56 L Brachial] Respiratory 16 15 Rate Blood Pressure 153/90 H 152/83 H [Left Brachial artery] Blood Pressure 169/74 H [Right Brachial artery] O2 Saturation 98 99 12/06/19 11:54 Temperature Heart Rate [ Brachial] Respiratory Rate Blood Pressure [Left Brachial artery] Blood Pressure [Right Brachial artery] O2 Saturation 97 Oxygen O2 Source [Without Activity] Room air O2 Source Room air I&O (Last 24 Hrs): Intake and Output Totals x24h 12/04/19 12/05/19 12/06/19 23:59 23:59 23:59 Intake Total 3727.667 2592.17 727.5 Output Total 6000 2700 1900 Balance -2272.333 -107.83 -1172.5 General: Alert, No acute distress HEENT: Atraumatic Neck: Supple Lymphatic: no adenopathy Neuro: Alert, Non Focal Cardiovascular: Regular rate, Normal S1, Normal S2 Respiratory: Chest non-tender, No respiratory distress Abdomen: Normal bowel sounds, Soft, No tenderness Extremities: Normal pulses - Results Results: Laboratory Results WBC 7.2 x10^3/uL (4.8-10.8) 12/06/19 05:40 RBC 3.65 10^6/uL (4.20-5.40) L 12/06/19 05:40 Hgb 10.4 g/dL (12.0-16.0) L 12/06/19 05:40 Hct 34.9 % (37.0-47.0) L 12/06/19 05:40 MCV 95.6 fL (81.0-99.0) 12/06/19 05:40 MCH 28.5 pg (27.0-31.0) 12/06/19 05:40 MCHC 29.8 g/dL (32.0-36.0) L 12/06/19 05:40 RDW 14.7 % (12.0-15.0) 12/06/19 05:40 Plt Count 334 10^3/uL (130-450) 12/06/19 05:40 MPV 9.9 fL (7.9-10.8) 12/06/19 05:40 Neut # (Auto) 4.5 10^3/uL (1.5-6.6) 12/06/19 05:40 Lymph # (Auto) 1.6 10^3/uL (1.5-3.5) 12/06/19 05:40 [place] # (Auto) 0.5 10^3/uL (0.0-1.0) 12/06/19 05:40 Eos # (Auto) 0.5 10^3/uL (0.0-0.7) 12/06/19 05:40 Baso # (Auto) 0.1 10^3/uL (0.0-0.1) 12/06/19 05:40 Absolute Nucleated RBC 0.00 x10^3/uL 12/06/19 05:40 Nucleated RBC % 0.0 /100WBC 12/06/19 05:40 PT 14.1 secs (9.9-12.6) H 12/02/19 18:19 INR 1.3 (0.8-1.2) H 12/02/19 18:19 VBG pH 7.303 (7.31-7.41) L 12/02/19 18:30 VBG pCO2 34.3 mmHg (41-51) L 12/02/19 18:30 VBG pO2 42.0 mmHg (25-47) 12/02/19 18:30 VBG HCO3 16.6 mmol/L (23-28) L 12/02/19 18:30 VBG Total CO2 17.7 mmol/L (24-29) L 12/02/19 18:30 VBG O2 Saturation 65.2 % (60-80) 12/02/19 18:30 VBG Base Excess -8.9 mmol/L (-2 - +2) L 12/02/19 18:30 Sodium 142 mmol/L (135-145) 12/06/19 05:40 Potassium 4.8 mmol/L (3.5-5.0) 12/06/19 05:40 Chloride 110 mmol/L (101-111) 12/06/19 05:40 Carbon Dioxide 25 mmol/L (21-32) 12/06/19 05:40 Anion Gap 7.0 (6-13) 12/06/19 05:40 BUN 19 mg/dL (6-20) 12/06/19 05:40 Creatinine 1.8 mg/dL (0.4-1.0) H 12/06/19 05:40 Estimated GFR (MDRD) 28 (>89) L 12/06/19 05:40 Glucose 94 mg/dL (70-100) 12/06/19 05:40 Lactic Acid 1.0 mmol/L (0.5-2.2) 12/02/19 18:30 Calcium 9.8 mg/dL (8.5-10.3) 12/06/19 05:40 Iron 49 ug/dL (28-170) 12/05/19 05:04 TIBC 441 ug/dL (250-450) 12/05/19 05:04 % Saturation 11 % (20-50) L 12/05/19 05:04 Transferrin 315 mg/dL (192-382) 12/05/19 05:04 Total Bilirubin 0.3 mg/dL (0.2-1.0) 12/02/19 18:30 AST 13 IU/L (10-42) 12/02/19 18:30 ALT < 10 IU/L (10-60) L 12/02/19 18:30 Alkaline Phosphatase 146 IU/L (42-121) H 12/02/19 18:30 Ammonia 19.3 umol/L (7-35) 12/02/19 18:30 Troponin I High Sens 22.1 ng/L (2.3-14.8) H* 12/04/19 16:05 B-Natriuretic Peptide 548 pg/mL (5-100) H 12/05/19 05:04 Total Protein 6.8 g/dL (6.7-8.2) 12/02/19 18:30 Albumin 3.2 g/dL (3.2-5.5) 12/02/19 18:30 Globulin 3.6 g/dL (2.1-4.2) 12/02/19 18:30 Albumin/Globulin Ratio 0.9 (1.0-2.2) L 12/02/19 18:30 Lipase 23 U/L (22-51) 12/02/19 18:30 Vitamin B12 419 pg/mL (180-914) 12/05/19 05:04 Folate 6.03 ng/mL (5.90 - >24.8) 12/05/19 05:04 Urine Color YELLOW 12/02/19 18:10 Urine Clarity HAZY (CLEAR) 12/02/19 18:10 Urine pH 6.5 PH (5.0-7.5) 12/02/19 18:10 Ur Specific [place] <=1.005 (1.002-1.030) 12/02/19 18:10 Urine Protein NEGATIVE mg/dL (NEGATIVE) 12/02/19 18:10 Urine Glucose (UA) NEGATIVE mg/dL (NEGATIVE) 12/02/19 18:10 Urine Ketones NEGATIVE mg/dL (NEGATIVE) 12/02/19 18:10 Urine Occult Blood TRACE-INTA (NEGATIVE) 12/02/19 18:10 Urine Nitrite NEGATIVE (NEGATIVE) 12/02/19 18:10 Urine Bilirubin NEGATIVE (NEGATIVE) 12/02/19 18:10 Urine Urobilinogen 0.2 (NORMAL) E.U./dL (NORMAL) 12/02/19 18:10 Ur Leukocyte Esterase MODERATE (NEGATIVE) H 12/02/19 18:10 Urine RBC 0-5 /HPF (0-5) 12/02/19 18:10 Urine WBC >25 /HPF (0-5) H 12/02/19 18:10 Ur Squamous Epith Cells FEW Squamous (<= Few) 12/02/19 18:10 Urine Bacteria Few /HPF (None Seen) 12/02/19 18:10 Ur Microscopic Review INDICATED 12/02/19 18:10 Urine Culture Comments INDICATED 12/02/19 18:10 Last Dose Date UNK 12/03/19 06:00 Last Dose Time UNK 12/03/19 06:00 Salicylates < 6.0 mg/dL 12/02/19 18:30 Urine Opiates Screen POSITIVE (NEGATIVE) H 12/02/19 18:10 Ur Oxycodone Screen NEGATIVE (NEGATIVE) 12/02/19 18:10 Urine Methadone Screen NEGATIVE (NEGATIVE) 12/02/19 18:10 Ur Propoxyphene Screen NEGATIVE (NEGATIVE) 12/02/19 18:10 Acetaminophen < 10 ug/mL (10-30) L 12/02/19 18:30 Ur Barbiturates Screen NEGATIVE (NEGATIVE) 12/02/19 18:10 Ur Tricyclics Screen NEGATIVE (NEGATIVE) 12/02/19 18:10 Ur Phencyclidine Scrn NEGATIVE (NEGATIVE) 12/02/19 18:10 Ur Amphetamine Screen NEGATIVE (NEGATIVE) 12/02/19 18:10 U Methamphetamines Scrn NEGATIVE (NEGATIVE) 12/02/19 18:10 U Benzodiazepines Scrn POSITIVE (NEGATIVE) H 12/02/19 18:10 [place] 0.95 mmol/L 12/03/19 06:00 Urine Cocaine Screen NEGATIVE (NEGATIVE) 12/02/19 18:10 U Cannabinoids Screen NEGATIVE (NEGATIVE) 12/02/19 18:10 Ethyl Alcohol < 5.0 mg/dL 12/02/19 18:30 - Procedures Procedures: Procedures COLONOSCOPY (01/09/13) DRAINAGE OF BLADDER WITH DRAINAGE DEVICE, VIA OPENING (11/25/19) Sepsis Event Note (H) - Evaluation Current Stage of Sepsis: Ruled out ABX Reporting Has patient been on IV antibiotics over the past 48 hours?: No Current Medications - Current Medications Current Medications: Active Medications Acetaminophen (Tylenol) 650 mg PO Q4HR PRN PRN Reason: Pain 1 to 4 Last Admin: 12/05/19 08:40 Dose: 650 mg Documented by: Amlodipine Besylate (Norvasc) 10 mg PO DAILY [facility] Last Admin: 12/06/19 09:11 Dose: 10 mg Documented by: Docusate Sodium (Colace 250mg Capsule) 250 mg PO DAILY [facility] Last Admin: 12/06/19 09:14 Dose: 250 mg Documented by: Gabapentin (Neurontin) 200 mg PO QPM PRN PRN Reason: PERIPHERIAL NEUROPATHY Last Admin: 12/05/19 16:38 Dose: 200 mg Documented by: Gemfibrozil (Lopid) 600 mg PO BID [facility] Last Admin: 12/06/19 09:07 Dose: 600 mg Documented by: Heparin Sodium (Porcine) () 5,000 unit SUBQ BID [facility] Last Admin: 12/06/19 09:18 Dose: 5,000 unit Documented by: Hydralazine HCl (Apresoline Inj) 10 mg IVP TID PRN PRN Reason: Hypertensive Emergency Last Admin: 12/04/19 19:01 Dose: 10 mg Documented by: Sodium Chloride (Normal Saline 0.45%) 1,000 mls @ 83.3 mls/hr IV .Q12H1M [facility] Stop: 12/07/19 13:38 Levothyroxine Sodium (Synthroid) 50 mcg PO QDAC [facility] Last Admin: 12/06/19 06:13 Dose: 50 mcg Documented by: [place] [employer] Carbonate (Lithobid) 300 mg PO DAILY [facility] Last Admin: 12/06/19 09:10 Dose: 300 mg Documented by: Lorazepam (Ativan) 0.5 mg PO BID PRN PRN Reason: Anxiety Last Admin: 12/05/19 20:13 Dose: 0.5 mg Documented by: Metoprolol Succinate (Toprol Xl) 50 mg PO DAILY [facility] Last Admin: 12/06/19 09:16 Dose: 50 mg Documented by: Mineral Oil (Cavilon) 1 applic TOP PRN PRN PRN Reason: Skin Care Last Admin: 12/04/19 05:34 Dose: 1 applic Documented by: Morphine Sulfate () 15 mg PO BID PRN PRN Reason: PAIN Last Admin: 12/06/19 09:33 Dose: 15 mg Documented by: Nystatin (Mycostatin Cream) 1 applic TOP BID [facility] Last Admin: 12/06/19 12:28 Dose: Not Given Documented by: Oxycodone HCl (Roxicodone) 10 mg PO BID PRN PRN Reason: Breakthrough Pain Last Admin: 12/05/19 11:35 Dose: 10 mg Documented by: Pantoprazole Sodium (Protonix) 40 mg PO QDAC [facility] Last Admin: 12/06/19 06:12 Dose: 40 mg Documented by: Polyethylene Glycol (Miralax) 17 gm PO DAILY [facility] Last Admin: 12/06/19 09:30 Dose: 17 gm Documented by: Risperidone (Risperdal) 1 mg PO QPM [facility] Last Admin: 12/05/19 21:08 Dose: 1 mg Documented by: Senesmer (Garcíaokot) 8.6 mg PO DAILY [facility] Last Admin: 12/06/19 09:31 Dose: 8.6 mg Documented by: Senna (Senokot) 8.6 - 17.2 mg PO DAILY [facility] Sodium Chloride (Normal Saline Flush 0.9%) 10 ml IVP PRN PRN PRN Reason: NEEDED PER PROVIDER ORDERS Sodium Chloride (Normal Saline Flush 0.9%) 10 ml IVP 0100,0900,1700 [facility] Last Admin: 12/06/19 09:24 Dose: Not Given Documented by: Venlafaxine HCl (Effexor) 75 mg PO BID [facility] Last Admin: 12/06/19 09:34 Dose: 75 mg Documented by: Morphine Sulfate [Morphine Sulfate ER] 30 mg PO BID PRN 11/15/19 Omeprazole 20 mg PO DAILY 11/15/19 Cimetidine 400 mg PO BID PRN 11/26/19 Gabapentin 100 - 200 mg PO QPM PRN 11/26/19
[2019-12-06] MEDS ORDERED: amLODIPine 5 MG TABLET PO SCH (14:10)
[2019-12-06] MEDS ORDERED: BISACODYL 10 MG SUPP PR ONE (21:00)
[2019-12-06] MEDS: risperiDONE 1 MG TABLET PO SCH (21:27)
[2019-12-06] MEDS: GABAPENTIN 100 MG CAPSULE PO PRN (21:27)
[2019-12-07] MEDS: SODIUM CHLORIDE FLUSH 0.9% 10 ML SYRINGE IVP SCH ×2 (00:02→09:02)
[2019-12-07] MEDS: SODIUM CHLORIDE 0.45% 1,000 ML IV SCH (04:20)
[2019-12-07 05:21] LABS: BASOPHILS # (AUTO) 0.1 10^3/uL (0.0-0.1); BASOPHILS % (AUTO) 0.6 %; EOSINOPHILS # (AUTO) 0.5 10^3/uL (0.0-0.7); HGB - HEMOGLOBIN 10.5 g/dL (12.0-16.0); LYMPHOCYTES # (AUTO) 1.8 10^3/uL (1.5-3.5); LYMPHOCYTES % (AUTO) 21.5 %; MEAN CORPUSCULAR HGB CONC 30.3 g/dL (32.0-36.0); MEAN CORPUSCULAR VOLUME 95.6 fL (81.0-99.0); MONOCYTES # (AUTO) 0.6 10^3/uL (0.0-1.0); MONOCYTES % (AUTO) 7.3 %; NEUTROPHILS # (AUTO) 5.5 10^3/uL (1.5-6.6); NEUTROPHILS % (AUTO) 63.9 %; PLT - PLATELET COUNT 319 10^3/uL (130-450); RED BLOOD COUNT 3.62 10^6/uL (4.20-5.40); RED CELL DISTRIBUTION WIDTH 14.7 % (12.0-15.0); WHITE BLOOD COUNT 8.5 x10^3/uL (4.8-10.8)
[2019-12-07 05:29] LABS: CALCIUM 9.5 mg/dL (8.5-10.3); CREATININE 1.7 mg/dL (0.4-1.0)
[2019-12-07] MEDS: PANTOPRAZOLE 40 MG TABLET PO SCH (06:00)
[2019-12-07] MEDS: LEVOTHYROXINE 25 MCG TABLET PO SCH (06:00)
[2019-12-07] MEDS: MORPHINE ER 15 MG TABLET PO PRN (06:27)
[2019-12-07] MEDS ORDERED: SODIUM CHLORIDE 0.45% 1,000 ML IV SCH ×2 (07:28→07:30)
[2019-12-07] MEDS: VENLAFAXINE 37.5 MG TABLET PO SCH (08:33)
[2019-12-07] MEDS: gemfibroziL 600 MG TABLET PO SCH (08:34)
[2019-12-07] MEDS: DOCUSATE SODIUM 250 MG CAPSULE PO SCH (08:34)
[2019-12-07] MEDS: polyethylene glycoL 3350 17 GM PACKET PO SCH (08:34)
[2019-12-07] MEDS: amLODIPine 5 MG TABLET PO SCH (08:34)
[2019-12-07] MEDS: METOPROLOL SUCCINATE 50 MG TABLET PO SCH (08:35)
[2019-12-07] MEDS: LITHIUM ER 300 MG TABLET PO SCH (08:36)
[2019-12-07 08:39] VITALS: BP 158/55
[2019-12-07] MEDS: HEPARIN 5,000 UNIT/ML VIAL SUBQ SCH (08:46)
[2019-12-07] MEDS: NYSTATIN CREAM 15 GM TUBE TOP SCH (08:52)
[2019-12-07] MEDS: SENNA 8.6 MG TABLET PO SCH (08:56)
[2019-12-07] MEDS ORDERED: SENNA 8.6 MG TABLET PO SCH (09:00)
--- NOTE | 2019-12-07 10:11 | Discharge Plan ---
Discharge Plan for SNF / [facility] - Discharge Plan And Transition Orders Problem Reviewed?: Yes Disposition: 03 SNF DC/Xfer Condition: Stable Allergies and Adverse Reactions: Allergies Allergy/AdvReac Type Severity Reaction Status Date / Time NSAIDS (Non-Steroidal Allergy Mild Hives Verified 12/02/19 17:50 Anti-Inflamma lisinopril Allergy Unknown Verified 12/02/19 17:50 Sulfa (Sulfonamide AdvReac Mild Rash Verified 12/02/19 17:50 Antibiotics) Health Concerns: dehydration, medical noncompliance Plan of Treatment: advise pt multiple times for her to keep hydration and drinking fluid. Dehydration has been one of her major medical problems for her recent frequent admission. pt state she will keep hydration and drink fluid, and followup with medical advise. She recently had three times of admission in hospital at 18 days. another one major her medical issue is her medical noncompliance. She present over-medicated symptoms, lethargic at the admission. Strongly advise pt followup with medical compliance, keep the medication schedule, followup with her PCP appointments. pt state she will take "serious" at this time, and followup medical advise. After call made to her PCP office, we all agree, including pt, to reduce her medications schedule. Care Goals: stabilization and improvement of her medical conditions. Assessment: discussed the care plan with pt, she understood and agreed. - SNF / [facility] Transition Orders Admit to (Facility): [facility] Under the care of (Name): medical provider of [facility]. Discharge Diagnosis: VICKIE and dehydration, medical noncompliance, HTN, Bipolar, encephalopathy, hypothyroidism, anemia. Medicare Certification Statement: I certify that [facility] alf care is medically necessary on a continuing basis for any of the conditions for which she/he is receiving care during hospitalization. Notify PCP of admission and forward orders to primary provider for signature. Weight on admission and: Daily Call PCP immediately if weight increases by: 2 kg Other Notification Orders: Call PCP immediately if patient develops dyspnea, chest pain/tightness or edema. House Bowel Program: Yes Additional Bowel Program Orders: If no BM after 2 days, nurse may give M.O.M. 30ml PO PRN and/or ducolax Supp 1 IN and/or TERRA 250mg P.O., and/or senna 1-2 tabs PO. On day 3 nurse may give repeat above order until residents constipation is resolved. Annual Influenza Vaccine (between Jan 01 and July 31): Yes Two-step PPD per [facility] [phone] or approved exception documents: Yes Treatments & Other Orders: advise pt multiple times for her to keep hydration and drinking fluid. Dehydration has been one of her major medical problems for her recent frequent admission. pt state she will keep hydration and drink fluid, and followup with medical advise. She recently had three times of admission in hospital at 18 days. another one major her medical issue is her medical noncompliance. She present over-medicated symptoms, lethargic at the admission. Strongly advise pt followup with medical compliance, keep the medication schedule, followup with her PCP appointments. pt state she will take "serious" at this time, and followup medical advise. After call made to her PCP office, we all agree, including pt, to reduce her medications schedule. Medication Orders: PLEASE REFER TO THE DISCHARGE MEDICATION LIST. Insulin Orders?: No - Medications New Prescriptions: Morphine ER 15 mg PO Q12H PRN #10 tablet PRN Reason: Pain amLODIPine [Norvasc] 10 mg PO DAILY #20 tablet oxyCODONE [Roxicodone] 10 mg PO BID PRN #20 tablet PRN Reason: Breakthrough Pain - Diet Type: Geriatric Texture: Regular Liquids: Thin May have monthly special meal: Yes - Therapies | Activity Therapy: Evaluation | Treat if indicated: PT, OT Rehabilitation Potential: Maximize functional status Activity: Activity as Tolerated
--- NOTE | 2019-12-07 10:37 | DISCHARGE SUMMARY ---
Discharge Summary Admit Date: 12/02/19 Discharge Date: 12/07/19 Discharging Provider: Dalton Motta Primary Care Provider: Fadi Berger Condition at Discharge: Stable Discharge Disposition: SNF DC/Xfer Discharge Facility Name: [facility] - DIAGNOSES Discharge Diagnoses with Status of Each Condition: (1) VICKIE (acute kidney injury) Creatinine today is 1.7 as patient baseline Strongly advised to patient keep hydration and drink fluids in the home (2)medical noncompliance Called patient's primary care Dr. Fadi Bustos's office. Patient is very difficult to make an appointment with her PCP. Per Palliative care report, patient has many medications at home. She has been very poor manage of her medications, She does not let other people try to touch her medication, special her pain medications. Also patient is a very sedation in the home, barely eating and drinking. This is the main problem for her to have 3 admissions in the hospital in 18 days. Physical therapist therapist and occupational therapist recommendation patient d/c to SNF. She refused D/C to SNF on yesterday. But today she agree to be D/C to the SNF. Social work was consulted for safely D/C planning. detention need Covid 19 test, order the test for patient. (3) Hypernatremia Assessment/Plan: resolved. (4) HTN (hypertension) stable, pt is prescribed Amlodipine (5) Encephalopathy resolved. as her baseline (6) Bipolar disorder Stable, Patient's lithium level was 0.95 which is within therapeutic limits. Will resume [place] dose and the Venlafaxine and Risperdal. (7) Hypothyroidism stable (8) Anemia chronic, stable. (9)weakness Physical therapist therapist and occupational therapist recommendation patient d/c to SNF. She refused D/C to SNF on before. But yesterday she agree to be D/C to the SNF. - HPI History of Present Illness: refer from Dr. Brewster's HPI on 12/02/2019 Patient is a 69-year-old female who was brought to the ED via EMS after her called 911 stating that the patient appeared sleepier than usual. This is her third admission in the past 18 days all for the same reason. She was diagnosed with a urinary tract infection and has been on varied duration of antibiotic administration. However it is unclear if she is adherent to oral antibiotics at home. This is questionable because each time the patient presents to the ED work-up shows that she has acute kidney injury from what appears to be dehydration and possibly UTI. This time upon presentation her creatinine was 3.0. The patient is insistent on managing her pain medications at home. However there is concern that she is not able to manage it appropriately. I suspect her altered mental status upon presentation is also attributable to her pain medication use/abuse. At bedside she responds to her name and is barely able to tell me she is at [facility]. She is not able to give any other meaningful information. With significant prompting she is able to follow commands, but then readily falls back to sleep. She has intermittent twitching. - HOSPITAL COURSE Hospital Course: Patient was admitted to the hospital by her her call to 911 for patient appeared sleepier than usua and lethargic. Patient was found to have acute kidney injury. This is third admission in the hospital in 2 to 3 weeks. Patient also was found to have very poor management of her medical condition. Patient was found to stay in the bed no drinking and eating in the whole day. She also present significant weakness in the admission. Patient was treated with intravenous IV fluids for patient dehydration and a acute kidney injury. Patient had Physical therapist, occupational therapist treatment and evaluation. older adult social work specialist was consulted for her Readmission evaluation and the home situation evaluation. Patient initially refused to be discharged to skilled nurse facilit y, after the her family talk with her and support patient to be discharged to SNF, she change her mind and she agreed to be discharged in the skilled nurse facility. I called patient's PCP office and discussed with the patient about her chronic pain medical management, we all agree to reduce patient's pain medication to morphine ER 15 mg twice daily as needed plus oxycodone 10 mg twice daily as needed. Patient also had palliative care consult and continue support. - ALLERGIES Allergies/Adverse Reactions: Allergies Allergy/AdvReac Type Severity Reaction Status Date / Time NSAIDS (Non-Steroidal Allergy Mild Hives Verified 12/02/19 17:50 Anti-Inflamma lisinopril Allergy Unknown Verified 12/02/19 17:50 Sulfa (Sulfonamide AdvReac Mild Rash Verified 12/02/19 17:50 Antibiotics) - MEDICATIONS Home Medications: Ambulatory Orders Medication Instructions Recorded Confirmed LORazepam [Ativan] 0.5 mg PO BID PRN #60 tablet 07/17/19 12/03/19 Levothyroxine Sodium 50 mcg PO QDAC #30 07/17/19 12/03/19 [place] Carbonate 300 mg PO DAILY #30 07/17/19 12/03/19 Metoprolol Succinate [Toprol Xl] 50 mg PO DAILY #30 07/17/19 12/03/19 Venlafaxine HCl 75 mg PO BID #60 07/17/19 12/03/19 gemfibroziL [Gemfibrozil] 600 mg PO BID #60 07/17/19 12/03/19 risperiDONE [Risperdal] 1 mg PO QPM #30 07/17/19 12/03/19 Omeprazole 20 mg PO DAILY 11/15/19 12/03/19 Cimetidine 400 mg PO BID PRN 11/26/19 12/03/19 Gabapentin 100 - 200 mg PO QPM PRN 11/26/19 12/03/19 Nystatin Cream [Mycostatin Cream] 1 applic TOP BID #1 tube 11/28/19 12/03/19 Morphine ER 15 mg PO Q12H PRN #10 tablet 12/07/19 amLODIPine [Norvasc] 10 mg PO DAILY #20 tablet 12/07/19 oxyCODONE [Roxicodone] 10 mg PO BID PRN #20 tablet 12/07/19 - PHYSICAL EXAM AT DISCHARGE General Appearance: positive: No acute distress, Alert. negative: Lethargic Eyes Bilateral: positive: Normal inspection, PERRL, No lid inflammation ENT: positive: ENT inspection nml, Pharynx nml, No signs of dehydration. negative: Purulent nasal drainage, Dry mucous membranes Neck: positive: Nml inspection, Thyroid nml, No JVD, Trachea midline. negative: Thyromegaly, Stiff neck, Tracheal deviation Respiratory: positive: Chest non-tender, No respiratory distress, Breath sounds nml. negative: Wheezes, Rales, Rhonchi Cardiovascular: positive: Regular rate & rhythm, No murmur. negative: Tachycardia, Bradycardia, Systolic murmur, Diastolic murmur Peripheral Pulses: positive: 2+ Abdomen: positive: Non-tender, No organomegaly, Nml bowel sounds, No distention. negative: Tenderness, Guarding, Rebound Back: positive: Nml inspection. negative: CVA tenderness (R), CVA tenderness (L) Skin: positive: Color nml, No rash, Warm, Dry. negative: Cyanosis, Diaphoresis, Pallor Extremities: positive: Non-tender, Full ROM, Nml appearance. negative: Calf tenderness Neurologic/Psychiatric: positive: Oriented x3, Motor nml, Sensation nml. negative: Weakness, Sensory loss, Facial droop, Slurred/abnml speech, Depressed mood/affect - LABS Result Diagrams: 12/07/19 04:50 12/07/19 04:50 - SEPSIS Current Stage of Sepsis: Ruled out - FOLLOW UP Follow Up: advise pt multiple times for her to keep hydration and drinking fluid. Dehydration has been one of her major medical problems for her recent frequent admission. pt state she will keep hydration and drink fluid, and followup with medical advise. She recently had three times of admission in hospital at 18 days. another one major her medical issue is her medical noncompliance. She present over-medicated symptoms, lethargic at the admission. Strongly advise pt followup with medical compliance, keep the medication schedule, followup with her PCP appointments. pt state she will take "serious" at this time, and followup medical advise. After call made to her PCP office, we all agree, including pt, to reduce her pain medications. - TIME SPENT Time Spent in Discharge (Minutes): 30
[2019-12-07] MEDS: oxyCODONE 5 MG TABLET PO PRN (13:07)
== END 2019-12-07 14:33 | DRG 683 ==
LOC: EDUNIT# → ED 17:44 → MS2 19:34
PROVIDERS: ADMIT Internal Medicine; ATTEND Nurse Practitioner Gerontology
DX: N17.9 Acute kidney failure, unspecified (principal); R41.0 Disorientation, unspecified; N39.0 Urinary tract infection, site not specified; E87.0 Hyperosmolality and hypernatremia; G93.40 Encephalopathy, unspecified; E86.0 Dehydration; J44.9 Chronic obstructive pulmonary disease, unspecified; E11.9 Type 2 diabetes mellitus without complications; I10 Essential (primary) hypertension; K21.9 Gastro-esophageal reflux disease without esophagitis; F41.9 Anxiety disorder, unspecified; E03.9 Hypothyroidism, unspecified; D64.9 Anemia, unspecified; K59.09 Other constipation; R01.1 Cardiac murmur, unspecified; E78.00 Pure hypercholesterolemia, unspecified; F17.200 Nicotine dependence, unspecified, uncomplicated; F31.9 Bipolar disorder, unspecified; G89.29 Other chronic pain; M54.9 Dorsalgia, unspecified; R32 Unspecified urinary incontinence; E11.42 Type 2 diabetes mellitus with diabetic polyneuropathy; H54.7 Unspecified visual loss; H91.90 Unspecified hearing loss, unspecified ear; Z74.09 Other reduced mobility; Z51.5 Encounter for palliative care; Z74.2 Need for assistance at home and no other household member able to render care; Z91.14 Patient's other noncompliance with medication regimen; Z11.59 Encounter for screening for other viral diseases; Z87.440 Personal history of urinary (tract) infections; Z79.82 Long term (current) use of aspirin; Z79.891 Long term (current) use of opiate analgesic; Z79.899 Other long term (current) drug therapy; Z86.718 Personal history of other venous thrombosis and embolism; Z87.891 Personal history of nicotine dependence
CPT/HCPCS: 36415; 51701; 71045; 80048; 80053; 80178; 81001; 82140; 82607; 82746; 82803; 83540; 83605; 83690; 83880; 84466; 84484; 85025; 85610; 87040; 87086; 93005; 96361; 96365; 97116; 97161; 97166; 97530; 99223; 99233; 99285; A6250; A9270; U0004; 80306; 80307; 80320; 80329; 81003

== ENCOUNTER 2020-02-01 14:53 | Outpatient (CLI) | payer MEDICARE, MEDICAID | END 2020-02-01 14:54 | disposition EMS.NT | LOC: EMS 14:53 | PROVIDERS: ATTEND Surgery | DX: R41.0 Disorientation, unspecified (principal); R19.8 Other specified symptoms and signs involving the digestive system and abdomen ==

== ENCOUNTER 2020-02-01 16:18 | Inpatient (IN) | payer MEDICARE, MEDICAID ==
[2020-02-01 17:08] LABS: BASOPHILS # (AUTO) 0.1 10^3/uL (0.0-0.1); BASOPHILS % (AUTO) 0.4 %; EOSINOPHILS # (AUTO) 0.1 10^3/uL (0.0-0.7); EOSINOPHILS % (AUTO) 0.7 %; HGB - HEMOGLOBIN 10.2 g/dL (12.0-16.0); LYMPHOCYTES # (AUTO) 0.9 10^3/uL (1.5-3.5); LYMPHOCYTES % (AUTO) 7.3 %; MEAN CORPUSCULAR HEMOGLOBIN 29.1 pg (27.0-31.0); MEAN CORPUSCULAR HGB CONC 30.3 g/dL (32.0-36.0); MEAN PLATELET VOLUME 9.9 fL (7.9-10.8); MONOCYTES # (AUTO) 0.7 10^3/uL (0.0-1.0); MONOCYTES % (AUTO) 5.5 %; NEUTROPHILS # (AUTO) 10.8 10^3/uL (1.5-6.6); NEUTROPHILS % (AUTO) 85.5 %; PLT - PLATELET COUNT 370 10^3/uL (130-450); RED BLOOD COUNT 3.51 10^6/uL (4.20-5.40); RED CELL DISTRIBUTION WIDTH 15.6 % (12.0-15.0); WHITE BLOOD COUNT 12.6 x10^3/uL (4.8-10.8)
--- NOTE | 2020-02-01 17:11 | XRAY Report ---
PROCEDURE: Chest 1 View X-Ray INDICATIONS: chest pain TECHNIQUE: One view of the chest was acquired. COMPARISON: Single view chest 12/02/2019 FINDINGS: Surgical changes and devices: None. Lungs and pleura: No pleural effusions or pneumothorax. Lungs are clear. Mediastinum: Mediastinal contours appear normal. Heart size is normal. Bones and chest wall: No suspicious bony lesions. Overlying soft tissues appear unremarkable. IMPRESSION: Normal for age, source of chest pain is not seen. Reviewed by: Eliazar Malin MD on 02/01/2020 5:10 PM PDT Approved by: Eliazar Malin MD on 02/01/2020 5:10 PM PDT Station ID: [id number]
--- NOTE | 2020-02-01 17:17 | ED Physician Documentation ---
History of Present Illness - Stated complaint Stated Complaint: CONFUSION, CONSTIPATION - Chief complaint Chief Complaint: Neuro - Additonal information Additional information: 69-year-old woman presents to the emergency department for evaluation of confusion and altered mental status. She has been hospitalized multiple times for encephalopathy likely secondary to urinary tract infection. There is also concern for polypharmacy and chronic pain medication. Patient is able to tell me that she is in the hospital but unsure of the month. She states that she got distracted at home and had garbled speech. The caregiver indicated to the triage nurse that theThe caregiver indicated to the triage nurse that the been getting more confused over the last few weeks and that she guards her medications very closely. There is always an open bottle of morphine at the bedside. Patient is primarily bedbound secondary to a history of sciatica though she is at times able to get up with a walker to use the restroom In point for me patient denies chest pain, abdominal pain shortness of breath or diarrhea. The rest of the review of systems and history is obtained through the computer Review of Systems Unable to obtain: AMS, Confused, Other (as in HPI) PD PAST MEDICAL HISTORY - Past Medical History Cardiovascular: Hypertension, High cholesterol, Deep vein thrombosis, Murmur Respiratory: Asthma, COPD, Shortness of breath Neuro: None, Peripheral neuropathy Endocrine/Autoimmune: Type 2 diabetes GI: GERD, Chronic constipation, Pancreatitis : Incontinence, Chronic bladder infection HEENT: None Psych: Anxiety, Bipolar disorder, Other Musculoskeletal: Osteoarthritis, Fatigue, Chronic back pain, Other Derm: Other - Past Surgical History Past Surgical History: Yes General: EGD, Colonoscopy Ortho: Knee replacement, 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 HEENT: Tonsil/Adenoidectomy - Present Medications Home Medications: Ambulatory Orders Medication Instructions Recorded Confirmed LORazepam [Ativan] 0.5 mg PO BID PRN #60 tablet 07/17/19 12/03/19 Levothyroxine Sodium 50 mcg PO QDAC #30 07/17/19 12/03/19 [place] Carbonate 300 mg PO DAILY #30 07/17/19 12/03/19 Metoprolol Succinate [Toprol Xl] 50 mg PO DAILY #30 07/17/19 12/03/19 Venlafaxine HCl 75 mg PO BID #60 07/17/19 12/03/19 gemfibroziL [Gemfibrozil] 600 mg PO BID #60 07/17/19 12/03/19 risperiDONE [Risperdal] 1 mg PO QPM #30 07/17/19 12/03/19 Omeprazole 20 mg PO DAILY 11/15/19 12/03/19 Cimetidine 400 mg PO BID PRN 11/26/19 12/03/19 Gabapentin 100 - 200 mg PO QPM PRN 11/26/19 12/03/19 Nystatin Cream [Mycostatin Cream] 1 applic TOP BID #1 tube 11/28/19 12/03/19 Morphine ER 15 mg PO Q12H PRN #10 tablet 12/07/19 amLODIPine [Norvasc] 10 mg PO DAILY #20 tablet 12/07/19 oxyCODONE [Roxicodone] 10 mg PO BID PRN #20 tablet 12/07/19 - Allergies Allergies/Adverse Reactions: Allergies Allergy/AdvReac Type Severity Reaction Status Date / Time NSAIDS (Non-Steroidal Allergy Mild Hives Verified 02/01/20 16:30 Anti-Inflamma lisinopril Allergy Unknown Verified 02/01/20 16:30 Sulfa (Sulfonamide AdvReac Mild Rash Verified 02/01/20 16:30 Antibiotics) - Social History Does the pt smoke?: Yes Smoking Status: Current some day smoker Does the pt drink ETOH?: No Does the pt have substance abuse?: No - Immunizations Immunizations are current?: Yes Immunizations: TDAP >10years/unknown - POLST Patient has POLST: No POLST Status: Full Code PD ED PE EXPANDED - General General: Alert, Disheveled, poorly kept - HEENT HEENT: PERRL, Pupils unequal, Moist mucous membranes, Pharynx normal - Eyes Eyes: PERRL - Neck Neck: Supple w/out meningeal sx. No: Adenopathy, No tenderness - Cardiac Cardiac: Regular Rate, Radial strong equal, Pedal strong equal, Cap refill < 2 sec - Respiratory Respiratory: Clear to ausultation cynthia. No: Distress, Labored - Abdomen Abdomen: Normal Bowel sounds. No: Tender to palpation - Female Female : Normal external - Derm Derm: Bruising (right hand) - Extremities Extremities: Normal - Neuro Neuro: Confused, CNII-XII intact, Normal speech - GCS Eye Opening: Spontaneous Motor: Obeys Commands Verbal: Confused Total: 14 Results - Vitals Vitals: Vital Signs - 24 hr 02/01/20 02/01/20 02/01/20 16:24 18:30 18:32 Temperature 37.8 C H 36.8 C Heart Rate 70 65 67 Respiratory 20 14 12 Rate Blood Pressure 158/81 H 158/98 H 158/98 H O2 Saturation 99 99 98 02/01/20 20:30 Temperature 36.7 C Heart Rate 61 Respiratory 20 Rate Blood Pressure 148/66 H O2 Saturation 100 Oxygen O2 Source [] Room air O2 Source Room air - Labs Labs: Laboratory Tests 02/01/20 02/01/20 02/01/20 15:16 17:05 17:05 WBC 12.6 H RBC 3.51 L Hgb 10.2 L Hct 33.7 L MCV 96.0 MCH 29.1 MCHC 30.3 L RDW 15.6 H Plt Count 370 MPV 9.9 Neut # (Auto) 10.8 H Lymph # (Auto) 0.9 L Bureau # (Auto) 0.7 Eos # (Auto) 0.1 Baso # (Auto) 0.1 Absolute Nucleated RBC 0.00 Nucleated RBC % 0.0 Sodium 137 Potassium 3.9 Chloride 103 Carbon Dioxide 22 Anion Gap 12.0 BUN 30 H Creatinine 2.7 H Estimated GFR (MDRD) 18 L Glucose 111 H Lactic Acid Calcium 9.6 Total Bilirubin 0.6 AST 17 ALT < 10 L Alkaline Phosphatase 151 H Ammonia 22.2 Total Protein 7.3 Albumin 3.4 Globulin 3.9 Albumin/Globulin Ratio 0.9 L Lipase 21 L TSH Urine Color Urine Clarity Urine pH Ur Specific [place] Urine Protein Urine Glucose (UA) Urine Ketones Urine Occult Blood Urine Nitrite Urine Bilirubin Urine Urobilinogen Ur Leukocyte Esterase Urine RBC Urine WBC Urine WBC Clumps Ur Epithelial Cells Ur Squamous Epith Cells Urine Bacteria Ur Microscopic Review Urine Culture Comments Last Dose Date Last Dose Time Salicylates < 6.0 Urine Opiates Screen Ur Oxycodone Screen Urine Methadone Screen Ur Propoxyphene Screen Acetaminophen < 10 L Ur Barbiturates Screen Ur Tricyclics Screen Ur Phencyclidine Scrn Ur Amphetamine Screen U Methamphetamines Scrn U Benzodiazepines Scrn [place] Urine Cocaine Screen U Cannabinoids Screen Ethyl Alcohol < 5.0 02/01/20 02/01/20 02/01/20 17:05 17:05 17:08 WBC RBC Hgb Hct MCV MCH MCHC RDW Plt Count MPV Neut # (Auto) Lymph # (Auto) Bureau # (Auto) Eos # (Auto) Baso # (Auto) Absolute Nucleated RBC Nucleated RBC % Sodium Potassium Chloride Carbon Dioxide Anion Gap BUN Creatinine Estimated GFR (MDRD) Glucose Lactic Acid 2.5 H Calcium Total Bilirubin AST ALT Alkaline Phosphatase Ammonia Total Protein Albumin Globulin Albumin/Globulin Ratio Lipase TSH 2.06 Urine Color YELLOW Urine Clarity HAZY Urine pH 6.0 Ur Specific [place] 1.015 Urine Protein NEGATIVE Urine Glucose (UA) NEGATIVE Urine Ketones NEGATIVE Urine Occult Blood NEGATIVE Urine Nitrite NEGATIVE Urine Bilirubin NEGATIVE Urine Urobilinogen 0.2 (NORMAL) Ur Leukocyte Esterase SMALL H Urine RBC None Seen Urine WBC >25 H Urine WBC Clumps PRESENT Ur Epithelial Cells FEW Transitional Ur Squamous Epith Cells RARE Squamous Urine Bacteria Rare Ur Microscopic Review INDICATED Urine Culture Comments INDICATED Last Dose Date Last Dose Time Salicylates Urine Opiates Screen POSITIVE H Ur Oxycodone Screen NEGATIVE Urine Methadone Screen NEGATIVE Ur Propoxyphene Screen NEGATIVE Acetaminophen Ur Barbiturates Screen NEGATIVE Ur Tricyclics Screen NEGATIVE Ur Phencyclidine Scrn NEGATIVE Ur Amphetamine Screen NEGATIVE U Methamphetamines Scrn NEGATIVE U Benzodiazepines Scrn POSITIVE H [place] Urine Cocaine Screen NEGATIVE U Cannabinoids Screen NEGATIVE Ethyl Alcohol 02/01/20 02/01/20 02/01/20 18:40 18:40 19:43 WBC RBC Hgb Hct MCV MCH MCHC RDW Plt Count MPV Neut # (Auto) Lymph # (Auto) Bureau # (Auto) Eos # (Auto) Baso # (Auto) Absolute Nucleated RBC Nucleated RBC % Sodium Potassium Chloride Carbon Dioxide Anion Gap BUN Creatinine Estimated GFR (MDRD) Glucose Lactic Acid 1.2 2.0 Calcium Total Bilirubin AST ALT Alkaline Phosphatase Ammonia Total Protein Albumin Globulin Albumin/Globulin Ratio Lipase TSH Urine Color Urine Clarity Urine pH Ur Specific [place] Urine Protein Urine Glucose (UA) Urine Ketones Urine Occult Blood Urine Nitrite Urine Bilirubin Urine Urobilinogen Ur Leukocyte Esterase Urine RBC Urine WBC Urine WBC Clumps Ur Epithelial Cells Ur Squamous Epith Cells Urine Bacteria Ur Microscopic Review Urine Culture Comments Last Dose Date Not Reportable Last Dose Time Not Reportable Salicylates Urine Opiates Screen Ur Oxycodone Screen Urine Methadone Screen Ur Propoxyphene Screen Acetaminophen Ur Barbiturates Screen Ur Tricyclics Screen Ur Phencyclidine Scrn Ur Amphetamine Screen U Methamphetamines Scrn U Benzodiazepines Scrn [place] 0.93 Urine Cocaine Screen U Cannabinoids Screen Ethyl Alcohol - Rads (name of study) CT head Radiology: Final report received (No acute intracranial process) CT abd Radiology: Final report received (Moderate fecal loading throughout the colon and severe fecal loading loading involving the rectum compatible with a history of constipation. Colonic diverticulosis without diverticulitis. No free fluid or air. No dilated loops of bowel) PD MEDICAL DECISION MAKING - ED course Complexity details: considered differential, d/w patient ED course: 69-year-old female presents to the emergency department for evaluation of increasing confusion and altered mental status while at home. She has a history of bipolar disorder, acute kidney injury as well as medication noncompliance. - Initial Head CT without focal findings. Laboratory results are pending 1814: Sepsis onset time identified at 1814 given findings of urinary tract infection, elevated lactic acid and altered mentation status. Fluid resuscitation orders initiated as well as ceftriaxone. I did speak with the daytime hospitalist Dr. Soni. He agrees that the patient should be admitted and brought into the hospital but before that is completed he would like a noncontrast CT of the abdomen to rule out urinary obstruction given new findings of acute kidney injury as well as a lithium order. Once these are completed the hospitalist will be happy to admit the patient. 1950: imaging delays in the ED, however I have discussed with patient that she will be admitted for sepsis, VICKIE and confusion once we complete the abdominal CT 2124: Noncontrast CT of the abdomen shows significant fecal obstipation but no findings of obstruction in the urinary tract. No free fluid or free air. Patient's lithium level is also noted to be within a therapeutic safe level. At this time I have spoken with Dr. Merritt the nocturnal hospitalist who is agreed to admit the patient for sepsis urinary tract infection acute kidney injury and altered mental status - Sepsis Event Current Stage of Sepsis: Sepsis Possible source of Sepsis: Genitourinary Mental/Cognitive Status: Confused Capillary refill: Less than 2 seconds Peripheral Pulse Strength: 2+ Slightly Diminished Peripheral Pulse Location: Pedal Sepsis Comment: ID of sepsis at 1814 with urine result and elevated lactic acid. Ceftriaxone ordered as well and 30 ml/kg LR crystalloid. Repeat lactic acid down to 1.2 from 2.5 Departure - Departure Disposition: 66 [facility] DC/Xfer Clinical Impression: Acute kidney injury Sepsis Qualifiers: Sepsis type: sepsis due to unspecified organism Sepsis acute organ dysfunction status: with acute organ dysfunction Severe sepsis acute organ dysfunction type: acute renal failure Acute renal failure type: unspecified Severe sepsis shock status: without septic shock Qualified Code(s): A41.9 - Sepsis, unspecified organism Urinary tract infection Qualifiers: Urinary tract infection type: acute cystitis Hematuria presence: without hematuria Qualified Code(s): N30.00 - Acute cystitis without hematuria
[2020-02-01 17:24] LABS: ACETAMINOPHEN < 10 ug/mL (10-30); ALBUMIN 3.4 g/dL (3.2-5.5); ALBUMIN/GLOBULIN RATIO 0.9 (1.0-2.2); ALKALINE PHOSPHATASE 151 IU/L (42-121); ALT ALANINE AMINOTRANSFERASE < 10 IU/L (10-60); AST ASPARTATE AMINOTRANSFERASE 17 IU/L (10-42); BILIRUBIN,TOTAL 0.6 mg/dL (0.2-1.0); BUN - BLOOD UREA NITROGEN 30 mg/dL (6-20); CALCIUM 9.6 mg/dL (8.5-10.3); CARBON DIOXIDE - CO2 22 mmol/L (21-32); CHLORIDE 103 mmol/L (101-111); CREATININE 2.7 mg/dL (0.4-1.0); GLUCOSE 111 mg/dL (70-100); LIPASE 21 U/L (22-51); SALICYLATE < 6.0 mg/dL; SODIUM 137 mmol/L (135-145); TOTAL PROTEIN 7.3 g/dL (6.7-8.2)
[2020-02-01 17:41] LABS: MUDS CUTOFF CONCENTRATIONS CUTOFF CONC BELOW:
[2020-02-01 17:46] LABS: BILIRUBIN,URINE NEGATIVE (NEGATIVE); GLUCOSE, URINE (UA) NEGATIVE (NEGATIVE); KETONES,URINE (UA) NEGATIVE (NEGATIVE); LEUKOCYTE ESTERASE, URINE SMALL (NEGATIVE); NITRITE,URINE NEGATIVE (NEGATIVE); OCCULT BLOOD,URINE NEGATIVE (NEGATIVE); PROTEIN,URINE NEGATIVE (NEGATIVE); UROBILINOGEN,URINE 0.2 (NORMAL) E.U./dL (NORMAL)
--- NOTE | 2020-02-01 17:48 | CT Report ---
PROCEDURE: HEAD WO INDICATIONS: altered mental status TECHNIQUE: Noncontrast 4.5 mm thick angled axial sections acquired from the foramen magnum to the vertex. For r adiation dose reduction, the following was used: automated exposure control, adjustment of mA and/or kV according to patient size. COMPARISON: 10/26/2019, 07/13/2019, 06/21/2017 FINDINGS: Image quality: Excellent. CSF spaces: Basal cisterns are patent. No extra-axial fluid collections. Ventricles are normal in size and shape. Brain: No midline shift. Brain parenchymal volume loss is seen. Chronic small vessel ischemic change is seen. No intracranial masses or hemorrhage. Cam-white matter interface is normal. Skull and face: Calvarium and visualized facial bones are intact, without suspicious lesions. Sinuses: Visualized sinuses and mastoids are clear. IMPRESSION: No significant intracranial abnormality is seen. Age-appropriate brain parenchymal volume loss and chronic small vessel ischemic change can be seen. Reviewed by: Ben Mann MD on 02/01/2020 4:46 PM AKDT Approved by: Ben Mann MD on 02/01/2020 4:46 PM AKDT Station ID: [id number]
[2020-02-01 17:52] LABS: CLARITY,URINE HAZY (CLEAR)
[2020-02-01 17:58] LABS: WBC CLUMPS,URINE PRESENT
[2020-02-01 17:59] LABS: EPITHELIAL CELLS,UR FEW Transitional /HPF (<= Few); RBC,URINE None Seen /HPF (0-5); SQUAMOUS EPITHELIAL CELL,UR RARE Squamous (<= Few)
[2020-02-01 18:01] LABS: BACTERIA,URINE Rare /HPF (None Seen)
[2020-02-01 18:02] LABS: COCAINE SCREEN URINE NEGATIVE (NEGATIVE); METHAMPHETAMINES SCREEN, URINE NEGATIVE (NEGATIVE); OPIATE SCREEN, URINE POSITIVE (NEGATIVE)
[2020-02-01 18:03] LABS: AMPHETAMINE SCREEN,URINE NEGATIVE (NEGATIVE); BENZODIAZEPINES SCREEN, URINE POSITIVE (NEGATIVE); METHADONE SCREEN, URINE NEGATIVE (NEGATIVE); OXYCODONE SCREEN, URINE NEGATIVE (NEGATIVE); PROPOXYPHENE SCREEN, URINE NEGATIVE (NEGATIVE); TRICYCLIC ANTIDEPRESSANT,URINE NEGATIVE (NEGATIVE)
[2020-02-01] MEDS ORDERED: cefTRIAXone 1 GM in SODIUM CHLORIDE 0.9% MINIBAG 100 ML IV STA (18:13)
[2020-02-01] MEDS ORDERED: LACTATED RINGERS IV STA (18:13)
[2020-02-01 19:23] LABS: LITHIUM 0.93 mmol/L
[2020-02-01] MEDS ORDERED: cefTRIAXone 1 GM VIAL ONE (19:35)
--- NOTE | 2020-02-01 21:11 | CT Report ---
PROCEDURE: Abdomen/Pelvis WO INDICATIONS: sinan; r/o obstruction TECHNIQUE: Noncontrast 5 mm thick sections acquired from the diaphragms to the symphysis. 5 mm coronal and sagi ttal reformats were then performed. For radiation dose reduction, the following was used: automated exposure control, adjustment of mA and/or kV according to patient size. COMPARISON: 12/15/2018.. FINDINGS: Image quality: Limited by patient motion artifact. ABDOMEN: Lung bases: Lung bases are clear. Heart size is normal. Solid organs: Liver and spleen are normal in size. Gallbladder is surgically absent Pancreas is no rmal in contours. No adrenal nodules. Kidneys are normal in size, without hydronephrosis or nephrol ithiasis. Left renal cyst is stable in size compared to prior exam Peritoneum and bowel: Unenhanced bowel loops demonstrate normal wall thickness and caliber. Moderate amount of stool noted throughout the colon. Large amount of stool noted in the rectum. Pericolonic d iverticuli noted without evidence of diverticulitis. No free fluid or air. The appendix is normal. Nodes and vessels: No retroperitoneal or mesenteric adenopathy by size criteria. Aorta and inferior vena cava are normal in caliber. Scattered atherosclerotic calcifications are noted in the abdominal and pelvic vasculature. Miscellaneous: No ventral hernias. PELVIS: Genitourinary: Bladder wall thickness is normal. Miscellaneous: No inguinal hernias or adenopathy. Bones: No suspicious bony lesions. No vertebral body compression fractures. Spine degenerative disc disease and facet arthropathy are noted. Lower lumbar spine fixation hardware. IMPRESSION: 1. Moderate fecal loading throughout the colon and severe fecal loading involving the rectum compatib le with reported history of constipation. 2. Colonic diverticulosis without evidence of diverticulitis. 3. No free fluid or free air. 4. No dilated loops of bowel. Reviewed by: Malinda Roberson MD, PhD on 02/01/2020 9:10 PM PDT Approved by: Malinda Roberson MD, PhD on 02/01/2020 9:10 PM PDT Station ID: [id number]
[2020-02-01] MEDS ORDERED: ONDANSETRON ODT 4 MG TABLET TL PRN (21:20)
[2020-02-01] MEDS ORDERED: ONDANSETRON 4 MG/2 ML VIAL IVP PRN (21:20)
[2020-02-01] MEDS ORDERED: SODIUM CHLORIDE FLUSH 0.9% 10 ML SYRINGE IVP PRN (21:20)
[2020-02-01] MEDS ORDERED: oxyCODONE 5 MG TABLET PO PRN (21:20)
[2020-02-01] MEDS: LACTATED RINGERS 1,000 ML IV SCH (22:15)
--- NOTE | 2020-02-01 22:45 | HISTORY & PHYSICAL EXAMINATION ---
Chief Complaint - Chief Complaint Chief Complaint: More confused than usual History of Present Illness - Admitted From Admitted From:: Home via private vehicle - History Obtained From Records Reviewed: [facility] History obtained from: TERRY Vargas Exam Limitations: Patient is confused - History of Present Illness HPI Comment/Other: This is a 69-year-old white female who is well-known to our hospitalist service. Unfortunately this morbidly obese female with diabetes, and chronic pain syndrome, refuses to allow someone else to manage her medications. Her has his own cognitive disorder, and they have private duty caregivers as well as funded caregivers come to the house several times a week. There is also a nurse who comes to dispense medication but Ms. Alberto does not allow that nurse to dispense her opiates. The patient is fiercely protective of the ability to give herself her own chronic pain meds. She has been admitted multiple times with the thought that the patient is oversedated, and abusing her opiates. resident services manager have been involved, the patient has been placed in a retirement facility for rehab several times, and Adult Protective Services has been notified. With this most recent discharge for medication noncompliance resulting in dehydration and acute kidney injury, the patient was discharged to retirement facility. She has since returned to home. She was brought back to the emergency room today by private vehicle and caregiver indicated that the patient is becoming more confused ever since she came back from the halfway. Guards her medications very closely. Has become more and more confused, she is not getting out of bed. There is always an open bottle of morphine at the bedside. to Day she was so "out of it" and very confused. Although the open bottle of morphine was at the bedside, the automated pill dispenser that the patient is supposed to be taking is still full of her medication. The patient has not been taking her normal meds. She has bipolar and is to be on lithium. In the emergency room she was evaluated by TERRY Vargas. Temperature 37.8. A disheveled confused morbidly obese female who was normotensive. 99% on room air. Pupils were unequal. Moist oral membranes. No meningeal symptoms on neck. Clear lungs, benign abdomen, bruising of the right hand, Grady Coma Scale 14. Able to follow commands, but confused. She is not on Glucophage. Her white cell count was 12.6 and elevated again. She has chronic anemia with a hemoglobin of 10.2. Creatinine is acutely elevated at 2.7. Lactic acid is 2.5. Urinalysis has a small amount of leukocyte Estrace. Greater than 25 white cells. No red cells. Few transitional epithelial, rare squamous, rare bacteria. CT of the head is negative. She has age-appropriate brain, normal volume loss and chronic small vessel ischemic changes. Abdomen pelvis CT was done because of the UTI with sepsis criteria and there is moderate fecal loading throughout the colon. Diverticulosis without evidence of diverticulitis. No free fluid or free air. No dilated loops of bowel, and most importantly no urinary obstruction. Past Medical History: Cardiovascular: reports: Hypertension, High cholesterol, Deep vein thrombosis ( 2016 extensive DVT left leg. June 2017 venous duplex and December 2017 venous duplex occlusive thrombus in the right greater saphenous vein, persistent nonocclusive thrombus in the left femoral vein mid to distal.), Murmur (Echo done July 2019. Left ventricular size normal and mild concentric left ventricular hypertrophy. Ejection fraction 60 to 65%. Normal diastolic G. Right ventricle normal. Atria normal. No significant valvular heart disease. Lipomatous hypertrophy of the interatrial septum and.) Respiratory: reports: Asthma, COPD, Shortness of breath Neuro: reports: None Endocrine/Autoimmune: reports: Type 2 diabetes (Started after pancreatitis. Used to be on Trulicity and glimepiride. hypoglycemic admit 08/2018) GI: reports: GERD, Chronic constipation (Admit to [facility] for severe abdominal pain July [address] showed constipation, diverticulosis), Pancreatitis (Infected pancreatic pseudocyst with severe sepsis June 2016 and transfer to [facility]. Due to acute cholecystitis. Had lap jacklyn. Readmitted July 2016 with infected loculated pancreatic pseudocyst.) : reports: Incontinence, Chronic bladder infection (CT KUB done for recurrent UTIs December 2018 without stones, hydroureter, cyst seen in right upper pole. Left kidney with benign findings of calcification.) HEENT: reports: None Psych: reports: Anxiety, Bipolar disorder, Other (Unfortunately, psychiatric disease with chronic pain has left her with a barrier for willingness to participate in her own care management including mobility, and diabetes and a propensity for opioid use) She is currently complaining of suicidal ideation. She wishes she were . She does not have any specific plan to do so. Musculoskeletal: reports: Osteoarthritis (Treated with bilateral knee replacements, one in 2014 and the other 2015), Fatigue (Very sedentary, prefers to spend most of her time sitting or laying in bed), Chronic back pain (Laminectomy and fusion of lumbar spine 2002), Other (Fall with left ankle fracture late 2016.) Derm: reports: None MRSA Hx?: No Past Surgical History General: reports: EGD, Colonoscopy Ortho: reports: Knee replacement, Spine surgery /PHARMACIST IN CHARGE OWNER: reports: section HEENT: reports: Tonsil/Adenoidectomy History - Past Medical History Cardiovascular: reports: Hypertension, High cholesterol, Deep vein thrombosis, Murmur Respiratory: reports: Asthma, COPD, Shortness of breath Neuro: reports: None, Peripheral neuropathy Endocrine/Autoimmune: reports: Type 2 diabetes GI: reports: GERD, Chronic constipation, Pancreatitis : reports: Incontinence, Chronic bladder infection HEENT: reports: None Psych: reports: Anxiety, Bipolar disorder, Other Musculoskeletal: reports: Osteoarthritis, Fatigue, Chronic back pain, Other Derm: reports: Other MRSA Hx?: No - Past Surgical History General: reports: EGD, Colonoscopy Ortho: reports: Knee replacement, Spine surgery /PHARMACIST IN CHARGE OWNER: reports: section HEENT: reports: Tonsil/Adenoidectomy - Family & Social History Family History: Mother: , CAD, Father: , CAD Family History Comment/Other: Both mother and father of heart disease at the age of 57. Social History Notes: She smoked 1ppd. Uses CBD cannabis oil sublingual. She do es not drink alcohol - Substance History Use: Uses substance without health or social issues: Tobacco (hx) - POLST Patient has POLST: No POLST Status: Full Code Meds/Allgy - Home Medications Home Medications: Ambulatory Orders Medication Instructions Recorded Confirmed LORazepam [Ativan] 0.5 mg PO BID PRN #60 tablet 07/17/19 12/03/19 Levothyroxine Sodium 50 mcg PO QDAC #30 07/17/19 12/03/19 Table Rock Carbonate 300 mg PO DAILY #30 07/17/19 12/03/19 Metoprolol Succinate [Toprol Xl] 50 mg PO DAILY #30 07/17/19 12/03/19 Venlafaxine HCl 75 mg PO BID #60 07/17/19 12/03/19 gemfibroziL [Gemfibrozil] 600 mg PO BID #60 03/16/20 08/02/20 risperiDONE [Risperdal] 1 mg PO QPM #30 07/17/19 12/03/19 Omeprazole 20 mg PO DAILY 11/15/19 12/03/19 Cimetidine 400 mg PO BID PRN 11/26/19 12/03/19 Gabapentin 100 - 200 mg PO QPM PRN 11/26/19 12/03/19 Nystatin Cream [Mycostatin Cream] 1 applic TOP BID #1 tube 11/28/19 12/03/19 Morphine ER 15 mg PO Q12H PRN #10 tablet 12/07/19 amLODIPine [Norvasc] 10 mg PO DAILY #20 tablet 12/07/19 oxyCODONE [Roxicodone] 10 mg PO BID PRN #20 tablet 12/07/19 - Allergies Allergies/Adverse Reactions: Allergies Allergy/AdvReac Type Severity Reaction Status Date / Time NSAIDS (Non-Steroidal Allergy Mild Hives Verified 02/01/20 16:30 Anti-Inflamma lisinopril Allergy Unknown Verified 02/01/20 16:30 Sulfa (Sulfonamide AdvReac Mild Rash Verified 02/01/20 16:30 Antibiotics) Review of Systems - Other Findings Other Findings: Family and caregiver are not at the bedside. They did stay in the emergency room and left after they dropped her off. Patient is confused, not able to give a clear review of systems Prior Level of Functionality: Patient is at home with her Edward. Edward reports he had a stroke a couple years ago, that has "fried his brain". He has poor short-term memory issues, but is alert and capable of engaging in conversation,. They do have DONNIE Wednesday through Wednesday now, patient reports they do help with vacuuming, house cleaning laundry, and make the bed. They have a dog and 2 cats. They have been initiated services with [facility], they have not been able to establish much report or treatment plan as she has been hospitalized multiple times. Previously she did have a nurse Maria Ines from [facility] services, she was doing medication Mediset's other than her pain meds, every 2 weeks. She does have a son and daughter on the [place], and 1 daughter that lives in [place]. Edward reports they are supportive, to help with yard work and are quite concerned about her returning home.She and Edward have been together since 1998, reports he got 6 years ago. Exam - Vital Signs Reviewed Vital Signs: Yes Vital Signs: Vital Signs x48h Temp Pulse Pulse Resp BP BP Pulse Ox 02/01/20 22:32 37.1 C 62 16 157/76 H 98 02/01/20 21:25 59 L 14 160/66 H 100 02/01/20 20:30 36.7 C 61 20 148/66 H 100 02/01/20 18:32 36.8 C 67 12 158/98 H 98 02/01/20 18:30 65 14 158/98 H 99 02/01/20 16:24 37.8 C H 70 20 158/81 H 99 - Physical Exam General Appearance: positive: No acute distress, Alert, Other (Sitting up in bed, trying to call her Edward. Cannot figure out how to use the phone. I dial for her and the number is out of service. The number she is asking me to dial is not the number that is listed as her home phone number.She is a morbidly obese 5 foot 3 inch female who weighs 87 kg) Eyes Bilateral: positive: PERRL, EOMI ENT: positive: Pharynx nml, No signs of dehydration, Other (Corners of her mouth have colitis) Neck: positive: No JVD. negative: Lymphadenopathy (R), Lymphadenopathy (L), Stiff neck, Carotid bruit Respiratory: positive: Chest non-tender, No respiratory distress, Other (Diminished breath sounds at the bases). negative: Wheezes, Rales, Rhonchi Cardiovascular: positive: Regular rate & rhythm, Systolic murmur. negative: Gallop/S4, Friction rub Peripheral Pulses: positive: 1+ Abdomen: positive: Non-tender, Nml bowel sounds, No distention, Other (Large abdominal pannus that is difficult to assess for organomegaly. Residual Tahmina underneath the pannus.) Skin: positive: Warm, Dry, Pallor (Very pale face, body) Extremities: positive: Full ROM, Pedal edema Neurologic/Psychiatric: positive: CN's nml (2-12), Motor nml, Disoriented to place, Disoriented to time Sepsis Event Note (H) - Evaluation Current Stage of Sepsis: Sepsis Possible source of Sepsis: positive: Genitourinary - Sepsis Criteria Sepsis Criteria: WBC count greater than 12,000 or less than 4000, FORMING M[employer] OPERATOR: altered consciousness (unrelated to primary neuro pathology), Metabolic: lactate > 2 mmol/L Conclusion/Plan - Problem List (1) Sepsis due to urinary tract infection Conclusion/Plan: Sepsis criteria met are that of a white cell count greater than 12,000, metabolic encephalopathy, and a lactic acid level the 2. Urinalysis seems to be the source, but she has both squamous and transitional cells. This seems to be more of a contaminated specimen. Plan: Inpatient status Rocephin via the sepsis protocol Lactic acid redraw since she has been fluid resuscitated and received antibiotics (2) Encephalopathy Conclusion/Plan: Due to infection, dehydration with acute kidney injury, and overuse/misuse of opiates. Plan: Treat the infection with antibiotics Treat the dehydration with IV fluids, lactated Ringer's Readdress with social sciences lecturer the need for a probable referral to Adult Protective Services again (3) Acute on chronic kidney failure Conclusion/Plan: Due to dehydration. With each previous admission she has responded with IV fluids. Plan: Monitor daily Avoid nephrotoxic agents Qualifiers: Acute renal failure type: unspecified (4) Chronic back pain Conclusion/Plan: Will resume her usual MS dosing at twice daily, and oxycodone twice daily as needed. I would recommend that the hospitalist service contact her primary care provider to discuss the case with a warm handoff to see with the plan is in the outpatient setting. Qualifiers: Back pain location: low back pain (5) Opiate abuse, continuous Conclusion/Plan: Patient has limited insight into her disease, medication use. And unfortunately her also has cognitive deficits. Her caregivers are not allowed to dispense medications. She does have a nurse that comes by once a week to fill the automated pill dispenser but even that nurse does not have day-to-day, continuous care of the patient. Again, a warm handoff with primary care provider may be helpful. (6) Noncompliance with diet and medication regimen Conclusion/Plan: Due to a combination of factors including probable cognitive deficit, sedation from inappropriate medication use, mental illness. (7) Diabetes mellitus type 2, diet-controlled Conclusion/Plan: She is not on any medications for diabetes at home. Complication includes peripheral neuropathy. Plan: Sliding scale insulin Check glycosylated hemoglobin (8) Anemia of chronic disease Conclusion/Plan: [place] to be anemia of chronic disease. Iron studies done in October and December show her to vary between 36-58. Normal iron is between 28 and 170. Ferritin is 26 and 32 and normal. TIBC is with percent iron saturation of 1819% and considered low. B12 is at normal levels in October and December. Folate was normal in [place]. TSH is normal. Reticulocyte percentage was normal in October at 1.82 and 1.65. Absolute reticulocyte count was normal at 0.065. Plan: Transfuse if less than 7 g of hemoglobin (9) Hx of deep venous thrombosis Conclusion/Plan: Lovenox 40 mg subcu daily while here (10) Suicidal ideation Conclusion/Plan: Nurse will put her in suicide precautions. At this time the patient has no plan. She is physically unable to get up out of bed on her own and does not necessarily need a one-to-one because of that limited mobility. However she jessica l be watched carefully while in the hospital per nursing protocol. - Lab Results Lab results reviewed: Yes Fish Bones: 02/01/20 17:05 02/01/20 17:05 - Diagnostic Imaging Results Diagnostic Imaging Results: positive: Final report reviewed - EKG Results EKG Interpreted Independently: No Core Measures - Anticipated LOS I expect patient to be DC'd or transferred within 96 hours.: Yes - DVT/VTE - Prophylaxis VTE/DVT Device ordered at admit?: Yes
[2020-02-02] MEDS: SODIUM CHLORIDE FLUSH 0.9% 10 ML SYRINGE IVP SCH ×3 (00:30→21:34)
[2020-02-02 05:44] LABS: BASOPHILS % (AUTO) 0.4 %; EOSINOPHILS # (AUTO) 0.3 10^3/uL (0.0-0.7); EOSINOPHILS % (AUTO) 2.6 %; HGB - HEMOGLOBIN 10.2 g/dL (12.0-16.0); LYMPHOCYTES # (AUTO) 1.1 10^3/uL (1.5-3.5); LYMPHOCYTES % (AUTO) 11.6 %; MEAN CORPUSCULAR HEMOGLOBIN 29.8 pg (27.0-31.0); MEAN CORPUSCULAR HGB CONC 31.3 g/dL (32.0-36.0); MEAN CORPUSCULAR VOLUME 95.3 fL (81.0-99.0); MEAN PLATELET VOLUME 10.1 fL (7.9-10.8); MONOCYTES # (AUTO) 0.7 10^3/uL (0.0-1.0); MONOCYTES % (AUTO) 7.3 %; NEUTROPHILS # (AUTO) 7.4 10^3/uL (1.5-6.6); NEUTROPHILS % (AUTO) 77.7 %; PLT - PLATELET COUNT 358 10^3/uL (130-450); RED BLOOD COUNT 3.42 10^6/uL (4.20-5.40); RED CELL DISTRIBUTION WIDTH 15.6 % (12.0-15.0); WHITE BLOOD COUNT 9.6 x10^3/uL (4.8-10.8)
[2020-02-02 05:55] LABS: CALCIUM 9.5 mg/dL (8.5-10.3); CREATININE 2.2 mg/dL (0.4-1.0)
[2020-02-02] MEDS: oxyCODONE 5 MG TABLET PO PRN (06:22)
--- NOTE | 2020-02-02 07:25 | PROVIDER PROGRESS NOTE ---
Subjective - Prog Note Date Prog Note Date: 02/02/20 - Subjective Subjective: Reports feeling better but still feels slightly confused. She does report some dysuria and urgency. She denies taking her medications inappropriately at home. She feels constipated. Current Medications - Current Medications Current Medications: Active Medications Acetaminophen (Tylenol) 650 mg PO Q4HR PRN PRN Reason: Pain 1 to 4 Amlodipine Besylate (Norvasc) 10 mg PO DAILY [facility] [place] Last Admin: 02/02/20 08:40 Dose: 10 mg Documented by: Amlodipine Besylate (Norvasc) 10 mg PO DAILY [facility] [place] Enoxaparin Sodium (Lovenox) 30 mg SUBQ DAILY [facility] [place] Last Admin: 02/02/20 08:39 Dose: 30 mg Documented by: Gabapentin (Neurontin) 300 mg PO QPM JARETT Gabapentin (Neurontin) 100 mg PO QPM PRN PRN Reason: PERIPHERIAL NEUROPATHY Gemfibrozil (Lopid) 600 mg PO BID [facility] [place] Lactated Ringer's (Lr) 1,000 mls @ 100 mls/hr IV .Q10H [facility] [place] Last Admin: 02/02/20 08:39 Dose: 100 mls/hr Documented by: Ceftriaxone Sodium 1 gm/ (Sodium Chloride) 100 mls @ 200 mls/hr IV DAILY [facility] [place] Last Infusion: 02/02/20 10:53 Dose: Infused Documented by: Levothyroxine Sodium (Synthroid) 50 mcg PO QDAC [facility] [place] Glendo Carbonate () 150 mg PO DAILY [facility] [place] Lorazepam (Ativan) 0.5 mg PO BID PRN PRN Reason: Anxiety Metoprolol Succinate (Toprol Xl) 50 mg PO DAILY [facility] [place] Last Admin: 02/02/20 08:40 Dose: 50 mg Documented by: Metoprolol Succinate (Toprol Xl) 50 mg PO DAILY [facility] [place] Morphine Sulfate () 15 mg PO BID [facility] [place] Last Admin: 02/02/20 08:40 Dose: 15 mg Documented by: Non-Formulary Medication (Venlafaxine Hcl [Venlafaxine Hcl]) 75 mg PO BID [facility] [place] Ondansetron HCl (Zofran Odt) 4 mg TL Q6HR PRN PRN Reason: Nausea / Vomiting Ondansetron HCl (Zofran Inj) 4 mg IVP Q6HR PRN PRN Reason: Nausea / Vomiting Oxycodone HCl (Roxicodone) 10 mg PO BID PRN PRN Reason: PAIN Last Admin: 02/02/20 06:22 Dose: 10 mg Documented by: Pantoprazole Sodium (Protonix) 40 mg PO DAILY JARETT Polyethylene Glycol (Miralax) 17 gm PO DAILY PRN PRN Reason: Bowel Protocol Last Admin: 02/02/20 09:31 Dose: 17 gm Documented by: Risperidone (Risperdal) 1 mg PO QPM JARETT Risperidone (Risperdal) 1 mg PO QPM JARETT Sodium Chloride (Normal Saline Flush 0.9%) 10 ml IVP PRN PRN PRN Reason: NEEDED PER PROVIDER ORDERS Sodium Chloride (Normal Saline Flush 0.9%) 10 ml IVP 0100,0900,1700 JARETT Last Admin: 02/02/20 08:41 Dose: 10 ml Documented by: Omeprazole 20 mg PO DAILY 11/15/19 Cimetidine 400 mg PO BID PRN 11/26/19 Gabapentin 100 - 200 mg PO QPM PRN 11/26/19 Estrogens, Conjugated Cream [Premarin Cream] 1 applic TOP 02/02/20 Nitrofurantoin Macrocrystal [Nitrofurantoin] 100 mg PO DAILY 02/02/20 Objective - Vital Signs/Intake & Output Reviewed Vital Signs: Yes Vital Signs: Vital Signs x48h Temp Pulse Pulse Resp BP BP Pulse Ox 02/02/20 06:19 36.6 C 60 18 165/78 H 99 02/02/20 00:30 37.0 C 57 L 16 100 02/01/20 23:38 37.0 C 59 L 18 175/71 H 100 Intake & Output: Intake & Output 01/30/20 01/31/20 02/01/20 02/02/20 23:59 23:59 23:59 23:59 Intake Total 100 Output Total 900 Balance 100 -900 - Objective General Appearance: positive: No acute distress, Alert Eyes Bilateral: positive: Normal inspection, Conjunctivae nml ENT: positive: ENT inspection nml Neck: positive: Nml inspection Respiratory: positive: No respiratory distress. negative: Wheezes, Rales Cardiovascular: positive: Regular rate & rhythm, No murmur. negative: Tachycardia, Systolic murmur Abdomen: positive: Nml bowel sounds, No distention, Tenderness (Mild diffuse tenderness.). negative: Non-tender, Guarding, Rebound Skin: positive: Warm, Dry Extremities: positive: Full ROM, No pedal edema Neurologic/Psychiatric: positive: Other (No focal deficits.). negative: Disoriented to person, Disoriented to place, Disoriented to time - Lab Results Fish Bones: 02/02/20 05:10 02/02/20 05:10 Other Labs: Lab Results x24hrs 02/02/20 02/02/20 02/01/20 Range/Units 05:10 05:10 23:50 WBC 9.6 (4.8-10.8) x10^3/uL RBC 3.42 L (4.20-5.40) 10^6/uL Hgb 10.2 L (12.0-16.0) g/dL Hct 32.6 L (37.0-47.0) % MCV 95.3 (81.0-99.0) fL MCH 29.8 (27.0-31.0) pg MCHC 31.3 L (32.0-36.0) g/dL RDW 15.6 H (12.0-15.0) % Plt Count 358 (130-450) 10^3/uL MPV 10.1 (7.9-10.8) fL Neut # (Auto) 7.4 H (1.5-6.6) 10^3/uL Lymph # (Auto) 1.1 L (1.5-3.5) 10^3/uL [place] # (Auto) 0.7 (0.0-1.0) 10^3/uL Eos # (Auto) 0.3 (0.0-0.7) 10^3/uL Baso # (Auto) 0.0 (0.0-0.1) 10^3/uL Absolute Nucleated RBC 0.00 x10^3/uL Nucleated RBC % 0.0 /100WBC Sodium 140 (135-145) mmol/L Potassium 3.9 (3.5-5.0) mmol/L Chloride 106 (101-111) mmol/L Carbon Dioxide 24 (21-32) mmol/L Anion Gap 10.0 (6-13) BUN 25 H (6-20) mg/dL Creatinine 2.2 H (0.4-1.0) mg/dL Estimated GFR (MDRD) 22 L (>89) Glucose 125 H (70-100) mg/dL Lactic Acid 1.3 (0.5-2.2) mmol/L Calcium 9.5 (8.5-10.3) mg/dL Total Bilirubin (0.2-1.0) mg/dL AST (10-42) IU/L ALT (10-60) IU/L Alkaline Phosphatase (42-121) IU/L Ammonia (7-35) umol/L Total Protein (6.7-8.2) g/dL Albumin (3.2-5.5) g/dL Globulin (2.1-4.2) g/dL Albumin/Globulin Ratio (1.0-2.2) Lipase (22-51) U/L TSH (0.34-5.60) uIU/mL Urine Color Urine Clarity (CLEAR) Urine pH (5.0-7.5) PH Ur Specific [place] (1.002-1.030) Urine Protein (NEGATIVE) mg/dL Urine Glucose (UA) (NEGATIVE) mg/dL Urine Ketones (NEGATIVE) mg/dL Urine Occult Blood (NEGATIVE) Urine Nitrite (NEGATIVE) Urine Bilirubin (NEGATIVE) Urine Urobilinogen (NORMAL) E.U./dL Ur Leukocyte Esterase (NEGATIVE) Urine RBC (0-5) /HPF Urine WBC (0-5) /HPF Urine WBC Clumps Ur Epithelial Cells (<= Few) /HPF Ur Squamous Epith Cells (<= Few) Urine Bacteria (None Seen) /HPF Ur Microscopic Review Urine Culture Comments Last Dose Date Last Dose Time Salicylates mg/dL Urine Opiates Screen (NEGATIVE) Ur Oxycodone Screen (NEGATIVE) Urine Methadone Screen (NEGATIVE) Ur Propoxyphene Screen (NEGATIVE) Acetaminophen (10-30) ug/mL Ur Barbiturates Screen (NEGATIVE) Ur Tricyclics Screen (NEGATIVE) Ur Phencyclidine Scrn (NEGATIVE) Ur Amphetamine Screen (NEGATIVE) U Methamphetamines Scrn (NEGATIVE) U Benzodiazepines Scrn (NEGATIVE) Glendo mmol/L Urine Cocaine Screen (NEGATIVE) U Cannabinoids Screen (NEGATIVE) Ethyl Alcohol mg/dL 02/01/20 02/01/20 02/01/20 Range/Units 19:43 18:40 18:40 WBC (4.8-10.8) x10^3/uL RBC (4.20-5.40) 10^6/uL Hgb (12.0-16.0) g/dL Hct (37.0-47.0) % MCV (81.0-99.0) fL MCH (27.0-31.0) pg MCHC (32.0-36.0) g/dL RDW (12.0-15.0) % Plt Count (130-450) 10^3/uL MPV (7.9-10.8) fL Neut # (Auto) (1.5-6.6) 10^3/uL Lymph # (Auto) (1.5-3.5) 10^3/uL [place] # (Auto) (0.0-1.0) 10^3/uL Eos # (Auto) (0.0-0.7) 10^3/uL Baso # (Auto) (0.0-0.1) 10^3/uL Absolute Nucleated RBC x10^3/uL Nucleated RBC % /100WBC Sodium (135-145) mmol/L Potassium (3.5-5.0) mmol/L Chloride (101-111) mmol/L Carbon Dioxide (21-32) mmol/L Anion Gap (6-13) BUN (6-20) mg/dL Creatinine (0.4-1.0) mg/dL Estimated GFR (MDRD) (>89) Glucose (70-100) mg/dL Lactic Acid 2.0 1.2 (0.5-2.2) mmol/L Calcium (8.5-10.3) mg/dL Total Bilirubin (0.2-1.0) mg/dL AST (10-42) IU/L ALT (10-60) IU/L Alkaline Phosphatase (42-121) IU/L Ammonia (7-35) umol/L Total Protein (6.7-8.2) g/dL Albumin (3.2-5.5) g/dL Globulin (2.1-4.2) g/dL Albumin/Globulin Ratio (1.0-2.2) Lipase (22-51) U/L TSH (0.34-5.60) uIU/mL Urine Color Urine Clarity (CLEAR) Urine pH (5.0-7.5) PH Ur Specific [place] (1.002-1.030) Urine Protein (NEGATIVE) mg/dL Urine Glucose (UA) (NEGATIVE) mg/dL Urine Ketones (NEGATIVE) mg/dL Urine Occult Blood (NEGATIVE) Urine Nitrite (NEGATIVE) Urine Bilirubin (NEGATIVE) Urine Urobilinogen (NORMAL) E.U./dL Ur Leukocyte Esterase (NEGATIVE) Urine RBC (0-5) /HPF Urine WBC (0-5) /HPF Urine WBC Clumps Ur Epithelial Cells (<= Few) /HPF Ur Squamous Epith Cells (<= Few) Urine Bacteria (None Seen) /HPF Ur Microscopic Review Urine Culture Comments Last Dose Date Not Reportable Last Dose Time Not Reportable Salicylates mg/dL Urine Opiates Screen (NEGATIVE) Ur Oxycodone Screen (NEGATIVE) Urine Methadone Screen (NEGATIVE) Ur Propoxyphene Screen (NEGATIVE) Acetaminophen (10-30) ug/mL Ur Barbiturates Screen (NEGATIVE) Ur Tricyclics Screen (NEGATIVE) Ur Phencyclidine Scrn (NEGATIVE) Ur Amphetamine Screen (NEGATIVE) U Methamphetamines Scrn (NEGATIVE) U Benzodiazepines Scrn (NEGATIVE) Glendo 0.93 mmol/L Urine Cocaine Screen (NEGATIVE) U Cannabinoids Screen (NEGATIVE) Ethyl Alcohol mg/dL 02/01/20 02/01/20 02/01/20 Range/Units 17:08 17:05 17:05 WBC (4.8-10.8) x10^3/uL RBC (4.20-5.40) 10^6/uL Hgb (12.0-16.0) g/dL Hct (37.0-47.0) % MCV (81.0-99.0) fL MCH (27.0-31.0) pg MCHC (32.0-36.0) g/dL RDW (12.0-15.0) % Plt Count (130-450) 10^3/uL MPV (7.9-10.8) fL Neut # (Auto) (1.5-6.6) 10^3/uL Lymph # (Auto) (1.5-3.5) 10^3/uL [place] # (Auto) (0.0-1.0) 10^3/uL Eos # (Auto) (0.0-0.7) 10^3/uL Baso # (Auto) (0.0-0.1) 10^3/uL Absolute Nucleated RBC x10^3/uL Nucleated RBC % /100WBC Sodium (135-145) mmol/L Potassium (3.5-5.0) mmol/L Chloride (101-111) mmol/L Carbon Dioxide (21-32) mmol/L Anion Gap (6-13) BUN (6-20) mg/dL Creatinine (0.4-1.0) mg/dL Estimated GFR (MDRD) (>89) Glucose (70-100) mg/dL Lactic Acid 2.5 H (0.5-2.2) mmol/L Calcium (8.5-10.3) mg/dL Total Bilirubin (0.2-1.0) mg/dL AST (10-42) IU/L ALT (10-60) IU/L Alkaline Phosphatase (42-121) IU/L Ammonia (7-35) umol/L Total Protein (6.7-8.2) g/dL Albumin (3.2-5.5) g/dL Globulin (2.1-4.2) g/dL Albumin/Globulin Ratio (1.0-2.2) Lipase (22-51) U/L TSH 2.06 (0.34-5.60) uIU/mL Urine Color YELLOW Urine Clarity HAZY (CLEAR) Urine pH 6.0 (5.0-7.5) PH Ur Specific [place] 1.015 (1.002-1.030) Urine Protein NEGATIVE (NEGATIVE) mg/dL Urine Glucose (UA) NEGATIVE (NEGATIVE) mg/dL Urine Ketones NEGATIVE (NEGATIVE) mg/dL Urine Occult Blood NEGATIVE (NEGATIVE) Urine Nitrite NEGATIVE (NEGATIVE) Urine Bilirubin NEGATIVE (NEGATIVE) Urine Urobilinogen 0.2 (NORMAL) (NORMAL) E.U./dL Ur Leukocyte Esterase SMALL H (NEGATIVE) Urine RBC None Seen (0-5) /HPF Urine WBC >25 H (0-5) /HPF Urine WBC Clumps PRESENT Ur Epithelial Cells FEW Transitional (<= Few) /HPF Ur Squamous Epith Cells RARE Squamous (<= Few) Urine Bacteria Rare (None Seen) /HPF Ur Microscopic Review INDICATED Urine Culture Comments INDICATED Last Dose Date Last Dose Time Salicylates mg/dL Urine Opiates Screen POSITIVE H (NEGATIVE) Ur Oxycodone Screen NEGATIVE (NEGATIVE) Urine Methadone Screen NEGATIVE (NEGATIVE) Ur Propoxyphene Screen NEGATIVE (NEGATIVE) Acetaminophen (10-30) ug/mL Ur Barbiturates Screen NEGATIVE (NEGATIVE) Ur Tricyclics Screen NEGATIVE (NEGATIVE) Ur Phencyclidine Scrn NEGATIVE (NEGATIVE) Ur Amphetamine Screen NEGATIVE (NEGATIVE) U Methamphetamines Scrn NEGATIVE (NEGATIVE) U Benzodiazepines Scrn POSITIVE H (NEGATIVE) Glendo mmol/L Urine Cocaine Screen NEGATIVE (NEGATIVE) U Cannabinoids Screen NEGATIVE (NEGATIVE) Ethyl Alcohol mg/dL 02/01/20 02/01/20 02/01/20 Range/Units 17:05 17:05 15:16 WBC 12.6 H (4.8-10.8) x10^3/uL RBC 3.51 L (4.20-5.40) 10^6/uL Hgb 10.2 L (12.0-16.0) g/dL Hct 33.7 L (37.0-47.0) % MCV 96.0 (81.0-99.0) fL MCH 29.1 (27.0-31.0) pg MCHC 30.3 L (32.0-36.0) g/dL RDW 15.6 H (12.0-15.0) % Plt Count 370 (130-450) 10^3/uL MPV 9.9 (7.9-10.8) fL Neut # (Auto) 10.8 H (1.5-6.6) 10^3/uL Lymph # (Auto) 0.9 L (1.5-3.5) 10^3/uL [place] # (Auto) 0.7 (0.0-1.0) 10^3/uL Eos # (Auto) 0.1 (0.0-0.7) 10^3/uL Baso # (Auto) 0.1 (0.0-0.1) 10^3/uL Absolute Nucleated RBC 0.00 x10^3/uL Nucleated RBC % 0.0 /100WBC Sodium 137 (135-145) mmol/L Potassium 3.9 (3.5-5.0) mmol/L Chloride 103 (101-111) mmol/L Carbon Dioxide 22 (21-32) mmol/L Anion Gap 12.0 (6-13) BUN 30 H (6-20) mg/dL Creatinine 2.7 H (0.4-1.0) mg/dL Estimated GFR (MDRD) 18 L (>89) Glucose 111 H (70-100) mg/dL Lactic Acid (0.5-2.2) mmol/L Calcium 9.6 (8.5-10.3) mg/dL Total Bilirubin 0.6 (0.2-1.0) mg/dL AST 17 (10-42) IU/L ALT < 10 L (10-60) IU/L Alkaline Phosphatase 151 H (42-121) IU/L Ammonia 22.2 (7-35) umol/L Total Protein 7.3 (6.7-8.2) g/dL Albumin 3.4 (3.2-5.5) g/dL Globulin 3.9 (2.1-4.2) g/dL Albumin/Globulin Ratio 0.9 L (1.0-2.2) Lipase 21 L (22-51) U/L TSH (0.34-5.60) uIU/mL Urine Color Urine Clarity (CLEAR) Urine pH (5.0-7.5) PH Ur Specific [place] (1.002-1.030) Urine Protein (NEGATIVE) mg/dL Urine Glucose (UA) (NEGATIVE) mg/dL Urine Ketones (NEGATIVE) mg/dL Urine Occult Blood (NEGATIVE) Urine Nitrite (NEGATIVE) Urine Bilirubin (NEGATIVE) Urine Urobilinogen (NORMAL) E.U./dL Ur Leukocyte Esterase (NEGATIVE) Urine RBC (0-5) /HPF Urine WBC (0-5) /HPF Urine WBC Clumps Ur Epithelial Cells (<= Few) /HPF Ur Squamous Epith Cells (<= Few) Urine Bacteria (None Seen) /HPF Ur Microscopic Review Urine Culture Comments Last Dose Date Last Dose Time Salicylates < 6.0 mg/dL Urine Opiates Screen (NEGATIVE) Ur Oxycodone Screen (NEGATIVE) Urine Methadone Screen (NEGATIVE) Ur Propoxyphene Screen (NEGATIVE) Acetaminophen < 10 L (10-30) ug/mL Ur Barbiturates Screen (NEGATIVE) Ur Tricyclics Screen (NEGATIVE) Ur Phencyclidine Scrn (NEGATIVE) Ur Amphetamine Screen (NEGATIVE) U Methamphetamines Scrn (NEGATIVE) U Benzodiazepines Scrn (NEGATIVE) Glendo mmol/L Urine Cocaine Screen (NEGATIVE) U Cannabinoids Screen (NEGATIVE) Ethyl Alcohol < 5.0 mg/dL ABX Reporting Has patient been on IV antibiotics over the past 48 hours?: Yes Sepsis Event Note (H) - Evaluation Current Stage of Sepsis: Sepsis Possible source of Sepsis: positive: Genitourinary - Sepsis Criteria Sepsis Criteria: WBC count greater than 12,000 or less than 4000, 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 She presented with a low-grade fever, leukocytosis, and elevated lactic acid which have all resolved. Blood cultures have been ordered and are pending. Her urine culture is also pending. We will continue her on IV ceftriaxone. We will follow-up her blood cultures. We will discontinue oral antibiotics based off of her clinical improvement. Qualifiers: Sepsis type: sepsis due to unspecified organism Sepsis acute organ dysfunction status: with acute organ dysfunction Severe sepsis acute organ dysfunction type: acute renal failure Acute renal failure type: unspecified Severe sepsis shock status: without septic shock Qualified Code(s): A41.9 - Sepsis, unspecified organism; R65.20 - Severe sepsis without septic shock; N17.9 - Acute kidney failure, unspecified (2) Altered mental status Impression: This is likely multifactorial. This could be due to the sepsis as well as possibly misuse of her home medications as well as dehydration. Her mental status has improved. Her CT of the head was unremarkable. She is oriented to self and location knows why she is here the hospital. We will continue to treat her underlying infection. We will continue to hydrate her with IV fluids. We will resume her home medications but will monitor her neurologic status closely. (3) UTI (urinary tract infection) Impression: This is a source of her sepsis. Her urinalysis is suggestive of infection and she reports symptoms including dysuria. She is on ceftriaxone IV empirically. She appears to be improving from a sepsis standpoint. We will follow-up her urine culture and de-escalate to oral antibiotics based off of this. Qualifiers: Urinary tract infection type: acute cystitis Hematuria presence: without hematuria Qualified Code(s): N30.00 - Acute cystitis without hematuria (4) Acute on chronic kidney failure Impression: This is likely prerenal injury due to dehydration and poor oral intake. Her renal function has improved with IV fluids. Pain was 2.7 on admission and her baseline is approximately 1.8. We will continue with gentle IV hydration and monitor her renal function and urine output. Avoid nephrotoxins. Qualifiers: Acute renal failure type: unspecified (5) Constipation Impression: This is likely due to her opiate use. She had a large amount of stool throughout her colon and in her rectum. We will attempt disimpaction today. We will try an enema and start her on MiraLAX. (6) Anemia of chronic disease Impression: This is likely secondary to her chronic kidney disease and her chronic illness. Her hemoglobin is stable with evidence of bleeding. We will continue to monitor during this hospitalization. (7) Chronic pain syndrome Impression: Stable. There is concern that she is misusing her home oxycodone and morphine. We will resume these today and monitor her neurologic status closely as this may be contributing to her confusion. I did attempt to contact her primary care provider to discuss the chronic use of opiates but he will not be in the office until next week. (8) HTN (hypertension) Impression: She is hypertensive today with systolics as high as the 180s. We will resume her home antihypertensives. (9) Bipolar disorder Impression: Stable. We will continue her home lithium but we will renally dose this. Appreciate pharmacy input.
[2020-02-02] MEDS: ENOXAPARIN 30 MG/0.3 ML SYRINGE SUBQ SCH (08:39)
[2020-02-02] MEDS: LACTATED RINGERS 1,000 ML IV SCH ×2 (08:39→19:35)
[2020-02-02] MEDS: amLODIPine 5 MG TABLET PO SCH (08:40)
[2020-02-02] MEDS: METOPROLOL SUCCINATE 50 MG TABLET PO SCH (08:40)
[2020-02-02] MEDS: MORPHINE ER 15 MG TABLET PO SCH ×2 (08:40→21:34)
[2020-02-02] MEDS ORDERED: cefTRIAXone 1 GM in SODIUM CHLORIDE 0.9% MINIBAG 100 ML IV SCH (09:00)
[2020-02-02] MEDS: polyethylene glycoL 3350 17 GM PACKET PO PRN (09:31)
--- NOTE | 2020-02-02 10:50 | PHARMACY PROGRESS NOTE ---
- Best Possible Medication History Admit Date and Time: 02/01/202119 Processed by: Pharmacy Medication History completed: Yes Patient Interview: Pt unable to participate Secondary Source(s): Physician records, Insurance records (medications paid for by insurance, but no other info available are added to med list but not confirmed.), Previous admit records As the person ultimately responsible for medication therapy, providers are able to order a medication from an existing home medication list in [facility] via the "Reconcile Routine" prior to Confirmation of that medication by direct support professional home health. Such practice is discouraged except when the physician, in their clinical judgment, deems that a medical need exists for a medication without regard to previous use.
[2020-02-02] MEDS ORDERED: GABAPENTIN 100 MG CAPSULE PO PRN (11:07)
[2020-02-02] MEDS: LITHIUM 150 MG CAPSULE PO SCH (11:53)
[2020-02-02] MEDS ORDERED: amLODIPine 5 MG TABLET PO SCH (12:00)
[2020-02-02] MEDS ORDERED: SALINE ENEMA 133 ML BOTTLE RC SCH (12:00)
[2020-02-02] MEDS ORDERED: METOPROLOL SUCCINATE 50 MG TABLET PO SCH (12:00)
[2020-02-02] MEDS ORDERED: BISACODYL 10 MG SUPP PR ONE (19:09)
[2020-02-02] MEDS ORDERED: MAGNESIUM HYDROXIDE 2,400 MG/30 ML UDC PO ONE (19:09)
[2020-02-02] MEDS ORDERED: risperiDONE 1 MG TABLET PO SCH (21:00)
[2020-02-02] MEDS: GABAPENTIN 300 MG CAPSULE PO SCH (21:33)
[2020-02-02] MEDS: gemfibroziL 600 MG TABLET PO SCH (21:33)
[2020-02-02] MEDS: VENLAFAXINE 37.5 MG TABLET PO SCH (21:34)
[2020-02-02] MEDS: risperiDONE 1 MG TABLET PO SCH (21:34)
[2020-02-03] MEDS: SODIUM CHLORIDE FLUSH 0.9% 10 ML SYRINGE IVP SCH ×3 (00:53→17:47)
[2020-02-03 05:24] LABS: BASOPHILS # (AUTO) 0.1 10^3/uL (0.0-0.1); BASOPHILS % (AUTO) 0.5 %; EOSINOPHILS # (AUTO) 0.3 10^3/uL (0.0-0.7); EOSINOPHILS % (AUTO) 2.6 %; HGB - HEMOGLOBIN 9.6 g/dL (12.0-16.0); LYMPHOCYTES # (AUTO) 1.8 10^3/uL (1.5-3.5); LYMPHOCYTES % (AUTO) 18.5 %; MEAN CORPUSCULAR HGB CONC 29.3 g/dL (32.0-36.0); MEAN CORPUSCULAR VOLUME 95.6 fL (81.0-99.0); MEAN PLATELET VOLUME 9.9 fL (7.9-10.8); MONOCYTES # (AUTO) 0.8 10^3/uL (0.0-1.0); MONOCYTES % (AUTO) 8.5 %; NEUTROPHILS # (AUTO) 6.9 10^3/uL (1.5-6.6); NEUTROPHILS % (AUTO) 69.4 %; PLT - PLATELET COUNT 358 10^3/uL (130-450); RED BLOOD COUNT 3.43 10^6/uL (4.20-5.40); RED CELL DISTRIBUTION WIDTH 15.7 % (12.0-15.0); WHITE BLOOD COUNT 9.9 x10^3/uL (4.8-10.8)
[2020-02-03 05:31] LABS: CALCIUM 9.5 mg/dL (8.5-10.3); CREATININE 1.9 mg/dL (0.4-1.0)
[2020-02-03] MEDS: LACTATED RINGERS 1,000 ML IV SCH (05:40)
[2020-02-03] MEDS: LEVOTHYROXINE 25 MCG TABLET PO SCH (06:09)
[2020-02-03] MEDS: ACETAMINOPHEN 325 MG TABLET PO PRN (06:10)
[2020-02-03] MEDS: polyethylene glycoL 3350 17 GM PACKET PO PRN (08:56)
[2020-02-03] MEDS: amLODIPine 5 MG TABLET PO SCH (08:56)
[2020-02-03] MEDS: PANTOPRAZOLE 40 MG TABLET PO SCH (08:57)
[2020-02-03] MEDS: gemfibroziL 600 MG TABLET PO SCH ×2 (08:57→20:28)
[2020-02-03] MEDS: VENLAFAXINE 37.5 MG TABLET PO SCH ×2 (08:57→20:27)
[2020-02-03] MEDS: MORPHINE ER 15 MG TABLET PO SCH ×2 (08:57→20:27)
[2020-02-03] MEDS: LITHIUM 150 MG CAPSULE PO SCH (08:57)
[2020-02-03] MEDS: METOPROLOL SUCCINATE 50 MG TABLET PO SCH (08:57)
[2020-02-03] MEDS: ENOXAPARIN 30 MG/0.3 ML SYRINGE SUBQ SCH (08:58)
[2020-02-03] MEDS ORDERED: cefTRIAXone 2 GM in SODIUM CHLORIDE 0.9% MINIBAG 100 ML IV SCH (09:00)
--- NOTE | 2020-02-03 11:51 | PROVIDER PROGRESS NOTE ---
Subjective - Prog Note Date Prog Note Date: 02/03/20 - Subjective Subjective: She reports feeling improved today. She did a large bowel movement overnight. She feels weak overall and believes she would benefit from physical therapy on discharge. Current Medications - Current Medications Current Medications: Active Medications Acetaminophen (Tylenol) 650 mg PO Q4HR PRN PRN Reason: Pain 1 to 4 Last Admin: 02/03/20 06:10 Dose: 650 mg Documented by: Amlodipine Besylate (Norvasc) 10 mg PO DAILY [facility] Last Admin: 02/03/20 08:56 Dose: 10 mg Documented by: Enoxaparin Sodium (Lovenox) 30 mg SUBQ DAILY [facility] Last Admin: 02/03/20 08:58 Dose: 30 mg Documented by: Gabapentin (Neurontin) 300 mg PO QPM [facility] Last Admin: 02/02/20 21:33 Dose: 300 mg Documented by: Gabapentin (Neurontin) 100 mg PO QPM PRN PRN Reason: PERIPHERIAL NEUROPATHY Gemfibrozil (Lopid) 600 mg PO BID [facility] Last Admin: 02/03/20 08:57 Dose: 600 mg Documented by: Ceftriaxone Sodium 2 gm/ (Sodium Chloride) 100 mls @ 200 mls/hr IV DAILY [facility] Last Infusion: 02/03/20 09:29 Dose: Infused Documented by: Levothyroxine Sodium (Synthroid) 50 mcg PO QDAC [facility] Last Admin: 02/03/20 06:09 Dose: 50 mcg Documented by: [place] Carbonate () 150 mg PO DAILY [facility] Last Admin: 02/03/20 08:57 Dose: 150 mg Documented by: Lorazepam (Ativan) 0.5 mg PO BID PRN PRN Reason: Anxiety Metoprolol Succinate (Toprol Xl) 50 mg PO DAILY [facility] Last Admin: 02/03/20 08:57 Dose: 50 mg Documented by: Morphine Sulfate () 15 mg PO BID [facility] Last Admin: 02/03/20 08:57 Dose: 15 mg Documented by: Ondansetron HCl (Zofran Odt) 4 mg TL Q6HR PRN PRN Reason: Nausea / Vomiting Ondansetron HCl (Zofran Inj) 4 mg IVP Q6HR PRN PRN Reason: Nausea / Vomiting Oxycodone HCl (Roxicodone) 10 mg PO BID PRN PRN Reason: PAIN Last Admin: 02/02/20 06:22 Dose: 10 mg Documented by: Pantoprazole Sodium (Protonix) 40 mg PO DAILY [facility] Last Admin: 02/03/20 08:57 Dose: 40 mg Documented by: Polyethylene Glycol (Miralax) 17 gm PO DAILY PRN PRN Reason: Bowel Protocol Last Admin: 02/03/20 08:56 Dose: 17 gm Documented by: Risperidone (Risperdal) 1 mg PO QPM [facility] Last Admin: 02/02/20 21:34 Dose: 1 mg Documented by: Sodium Chloride (Normal Saline Flush 0.9%) 10 ml IVP PRN PRN PRN Reason: NEEDED PER PROVIDER ORDERS Sodium Chloride (Normal Saline Flush 0.9%) 10 ml IVP 0100,0900,1700 [facility] Last Admin: 02/03/20 08:58 Dose: 10 ml Documented by: Venlafaxine HCl (Effexor) 75 mg PO BID [facility] Last Admin: 02/03/20 08:57 Dose: 75 mg Documented by: Omeprazole 20 mg PO DAILY 11/15/19 Cimetidine 400 mg PO BID PRN 11/26/19 Gabapentin 100 - 200 mg PO QPM PRN 11/26/19 Estrogens, Conjugated Cream [Premarin Cream] 1 applic TOP 02/02/20 Nitrofurantoin Macrocrystal [Nitrofurantoin] 100 mg PO DAILY 02/02/20 Objective - Vital Signs/Intake & Output Reviewed Vital Signs: Yes Vital Signs: Vital Signs x48h Temp Pulse Resp BP BP Pulse Ox 02/03/20 08:00 37.0 C 63 18 152/58 H 99 02/03/20 04:37 69 157/70 H Intake & Output: Intake & Output 01/31/20 02/01/20 02/02/20 02/03/20 23:59 23:59 23:59 23:59 Intake Total 100 3671.667 1018.333 Output Total 2450 400 Balance 100 1221.667 618.333 - Objective General Appearance: positive: No acute distress, Alert Eyes Bilateral: positive: Normal inspection, Conjunctivae nml ENT: positive: ENT inspection nml Neck: positive: Nml inspection Respiratory: positive: No respiratory distress. negative: Wheezes, Rales Cardiovascular: positive: Regular rate & rhythm, No murmur. negative: Tachycardia Abdomen: positive: Non-tender, Nml bowel sounds, No distention. negative: Tenderness, Guarding, Rebound Skin: positive: Warm, Dry Extremities: positive: No pedal edema Neurologic/Psychiatric: positive: Oriented x3. negative: Disoriented to person, Disoriented to place, Disoriented to time - Lab Results Fish Bones: 02/03/20 05:00 02/03/20 05:00 Other Labs: Lab Results x24hrs 02/03/20 02/03/20 Range/Units 05:00 05:00 WBC 9.9 (4.8-10.8) x10^3/uL RBC 3.43 L (4.20-5.40) 10^6/uL Hgb 9.6 L (12.0-16.0) g/dL Hct 32.8 L (37.0-47.0) % MCV 95.6 (81.0-99.0) fL MCH 28.0 (27.0-31.0) pg MCHC 29.3 L (32.0-36.0) g/dL RDW 15.7 H (12.0-15.0) % Plt Count 358 (130-450) 10^3/uL MPV 9.9 (7.9-10.8) fL Neut # (Auto) 6.9 H (1.5-6.6) 10^3/uL Lymph # (Auto) 1.8 (1.5-3.5) 10^3/uL [place] # (Auto) 0.8 (0.0-1.0) 10^3/uL Eos # (Auto) 0.3 (0.0-0.7) 10^3/uL Baso # (Auto) 0.1 (0.0-0.1) 10^3/uL Absolute Nucleated RBC 0.00 x10^3/uL Nucleated RBC % 0.0 /100WBC Sodium 144 (135-145) mmol/L Potassium 3.9 (3.5-5.0) mmol/L Chloride 110 (101-111) mmol/L Carbon Dioxide 27 (21-32) mmol/L Anion Gap 7.0 (6-13) BUN 17 (6-20) mg/dL Creatinine 1.9 H (0.4-1.0) mg/dL Estimated GFR (MDRD) 26 L (>89) Glucose 99 (70-100) mg/dL Calcium 9.5 (8.5-10.3) mg/dL ABX Reporting Has patient been on IV antibiotics over the past 48 hours?: Yes Sepsis Event Note (H) - Evaluation Current Stage of Sepsis: Resolved Possible source of Sepsis: positive: Genitourinary - Sepsis Criteria Sepsis Criteria: WBC count greater than 12,000 or less than 4000, SPECIAL DELIVERY CLERK: altered consciousness (unrelated to primary neuro pathology), Metabolic: lactate > 2 mmol/L Assessment/Plan - Problem List (1) Sepsis Impression: This has resolved. She is remained afebrile and her white count remains normal. Blood cultures have been negative to date. Urine culture still pending. We will continue her on ceftriaxone IV and de-escalate to oral antibiotics once cultures are available. Qualifiers: Sepsis type: sepsis due to unspecified organism Sepsis acute organ dysfunction status: with acute organ dysfunction Severe sepsis acute organ dysfunction type: acute renal failure Acute renal failure type: unspecified Severe sepsis shock status: without septic shock Qualified Code(s): A41.9 - Sepsis, unspecified organism; R65.20 - Severe sepsis without septic shock; N17.9 - Acute kidney failure, unspecified (2) Altered mental status Impression: This has resolved. This is likely multifactorial and secondary to dehydration as well as a urinary tract infection. She is back to her baseline neurologic status. (3) UTI (urinary tract infection) Impression: This was the cause of her sepsis. Her sepsis has since resolved. Urine cultures are still pending but blood cultures have been negative to date. Clinically she has improved on ceftriaxone IV. We will keep her on ceftriaxone IV and await urine culture to de-escalate to oral antibiotics. If this is not back by tomorrow then we will discharge her on oral ciprofloxacin as prior cultures were sensitive to this Qualifiers: Urinary tract infection type: acute cystitis Hematuria presence: without hematuria Qualified Code(s): N30.00 - Acute cystitis without hematuria (4) Acute on chronic kidney failure Impression: This has resolved and her renal function is back to her baseline with a creatinine of approximately 1.8. This was likely prerenal injury due to dehydration. We will monitor her renal function while she is hospitalized. Qualifiers: Acute renal failure type: unspecified (5) Constipation Impression: This is secondary to her chronic opiate use. She had a bowel movement after an enema was administered. We will continue her on a bowel regimen with MiraLAX and senna. (6) Anemia of chronic disease Impression: Her anemia stable without evidence of bleeding. We will continue to monitor during this hospitalization. (7) Chronic pain syndrome Impression: Stable. We are continuing her home opiates. I attempted to call her primary care provider yesterday but he is unavailable until next week. We will recommend decreasing her dose of opiates and consider a taper on outpatient basis as there is concern she is misusing her opiates at home which is contributing to her multiple hospitalizations. (8) HTN (hypertension) Impression: She remains hypertensive with systolic in the 150s. Her home and hypertensives have been resumed. We will continue to monitor and will consider switching her metoprolol to carvedilol for the alpha blockade if her blood pressure remains elevated. We will not add an PRADPI inhibitor or angiotensin receptor leanna given she has been admitted multiple times for acute kidney injury. She is already on max dose of amlodipine. We can also consider adding hydralazine if necessary. (9) Bipolar disorder Impression: Stable. We are continuing lithium.
[2020-02-03] MEDS: oxyCODONE 5 MG TABLET PO PRN ×2 (13:02→17:46)
--- NOTE | 2020-02-03 16:04 | XRAY Report ---
PROCEDURE: Chest 1 View X-Ray INDICATIONS: CP TECHNIQUE: One view of the chest was acquired. COMPARISON: February 01, 2020 chest radiograph FINDINGS: Surgical changes and devices: None. Lungs and pleura: No pleural effusions or pneumothorax. Lungs are clear. Mediastinum: Mediastinal contours appear normal. Heart size is normal. Bones and chest wall: No suspicious bony lesions. Overlying soft tissues appear unremarkable. IMPRESSION: No acute cardiopulmonary abnormality. Reviewed by: Ramon Mcgee on 02/03/2020 3:02 PM KIERAN Approved by: Ramon Mcgee on 02/03/2020 3:02 PM AKESTER Station ID: [id number]
[2020-02-03] MEDS: GABAPENTIN 300 MG CAPSULE PO SCH (20:27)
[2020-02-03] MEDS: risperiDONE 1 MG TABLET PO SCH (20:28)
[2020-02-04] MEDS: ACETAMINOPHEN 325 MG TABLET PO PRN ×2 (00:19→15:11)
[2020-02-04] MEDS: SODIUM CHLORIDE FLUSH 0.9% 10 ML SYRINGE IVP SCH ×4 (00:20→23:52)
[2020-02-04] MEDS: LORazepam 0.5 MG TABLET PO PRN ×3 (00:20→23:52)
[2020-02-04 05:22] LABS: BASOPHILS % (AUTO) 0.6 %; EOSINOPHILS # (AUTO) 0.4 10^3/uL (0.0-0.7); EOSINOPHILS % (AUTO) 5.2 %; LYMPHOCYTES # (AUTO) 1.9 10^3/uL (1.5-3.5); MEAN CORPUSCULAR HEMOGLOBIN 28.3 pg (27.0-31.0); MEAN CORPUSCULAR HGB CONC 29.6 g/dL (32.0-36.0); MEAN CORPUSCULAR VOLUME 95.6 fL (81.0-99.0); MEAN PLATELET VOLUME 10.1 fL (7.9-10.8); MONOCYTES # (AUTO) 0.7 10^3/uL (0.0-1.0); MONOCYTES % (AUTO) 9.1 %; NEUTROPHILS # (AUTO) 4.2 10^3/uL (1.5-6.6); NEUTROPHILS % (AUTO) 58.7 %; PLT - PLATELET COUNT 309 10^3/uL (130-450); RED BLOOD COUNT 3.18 10^6/uL (4.20-5.40); RED CELL DISTRIBUTION WIDTH 15.7 % (12.0-15.0); WHITE BLOOD COUNT 7.1 x10^3/uL (4.8-10.8)
[2020-02-04 05:35] LABS: CALCIUM 9.2 mg/dL (8.5-10.3); CREATININE 1.9 mg/dL (0.4-1.0)
[2020-02-04] MEDS: LEVOTHYROXINE 25 MCG TABLET PO SCH (06:18)
[2020-02-04] MEDS: ENOXAPARIN 30 MG/0.3 ML SYRINGE SUBQ SCH (09:08)
[2020-02-04] MEDS: amLODIPine 5 MG TABLET PO SCH (09:08)
[2020-02-04] MEDS: PANTOPRAZOLE 40 MG TABLET PO SCH (09:12)
[2020-02-04] MEDS: VENLAFAXINE 37.5 MG TABLET PO SCH ×2 (09:13→20:49)
[2020-02-04] MEDS: METOPROLOL SUCCINATE 50 MG TABLET PO SCH (09:13)
[2020-02-04] MEDS: MORPHINE ER 15 MG TABLET PO SCH ×2 (09:14→20:49)
[2020-02-04] MEDS: LITHIUM 150 MG CAPSULE PO SCH (09:14)
[2020-02-04] MEDS: gemfibroziL 600 MG TABLET PO SCH ×2 (09:14→20:48)
--- NOTE | 2020-02-04 11:36 | PROVIDER PROGRESS NOTE ---
Subjective - Prog Note Date Prog Note Date: 02/04/20 - Subjective Subjective: She reports feeling well. She would like her pain medication reduced if that could be contributing to her intermittent confusion. She reports no dysuria or urgency. Current Medications - Current Medications Current Medications: Active Medications Acetaminophen (Tylenol) 650 mg PO Q4HR PRN PRN Reason: Pain 1 to 4 Last Admin: 02/04/20 00:19 Dose: 650 mg Documented by: Amlodipine Besylate (Norvasc) 10 mg PO DAILY [facility] Last Admin: 02/04/20 09:08 Dose: 10 mg Documented by: Enoxaparin Sodium (Lovenox) 30 mg SUBQ DAILY [facility] Last Admin: 02/04/20 09:08 Dose: 30 mg Documented by: Gabapentin (Neurontin) 300 mg PO QPM [facility] Last Admin: 02/03/20 20:27 Dose: 300 mg Documented by: Gabapentin (Neurontin) 100 mg PO QPM PRN PRN Reason: PERIPHERIAL NEUROPATHY Last Admin: 02/04/20 00:19 Dose: 100 mg Documented by: Gemfibrozil (Lopid) 600 mg PO BID [facility] Last Admin: 02/04/20 09:14 Dose: 600 mg Documented by: Levothyroxine Sodium (Synthroid) 50 mcg PO QDAC [facility] Last Admin: 02/04/20 06:18 Dose: 50 mcg Documented by: [place] Carbonate () 300 mg PO DAILY [facility] Lorazepam (Ativan) 0.5 mg PO BID PRN PRN Reason: Anxiety Last Admin: 02/04/20 00:20 Dose: 0.5 mg Documented by: Metoprolol Succinate (Toprol Xl) 50 mg PO DAILY [facility] Last Admin: 02/04/20 09:13 Dose: 50 mg Documented by: Morphine Sulfate () 10 mg PO BID [facility] Ondansetron HCl (Zofran Odt) 4 mg TL Q6HR PRN PRN Reason: Nausea / Vomiting Ondansetron HCl (Zofran Inj) 4 mg IVP Q6HR PRN PRN Reason: Nausea / Vomiting Oxycodone HCl (Roxicodone) 5 mg PO BID PRN PRN Reason: PAIN Pantoprazole Sodium (Protonix) 40 mg PO DAILY [facility] Last Admin: 02/04/20 09:12 Dose: 40 mg Documented by: Polyethylene Glycol (Miralax) 17 gm PO DAILY PRN PRN Reason: Bowel Protocol Last Admin: 02/03/20 08:56 Dose: 17 gm Documented by: Risperidone (Risperdal) 1 mg PO QPM [facility] Last Admin: 02/03/20 20:28 Dose: 1 mg Documented by: Sodium Chloride (Normal Saline Flush 0.9%) 10 ml IVP PRN PRN PRN Reason: NEEDED PER PROVIDER ORDERS Sodium Chloride (Normal Saline Flush 0.9%) 10 ml IVP 0100,0900,1700 [facility] Last Admin: 02/04/20 09:16 Dose: 10 ml Documented by: Venlafaxine HCl (Effexor) 75 mg PO BID [facility] Last Admin: 02/04/20 09:13 Dose: 75 mg Documented by: Omeprazole 20 mg PO DAILY 11/15/19 Cimetidine 400 mg PO BID PRN 11/26/19 Gabapentin 100 - 200 mg PO QPM PRN 11/26/19 Estrogens, Conjugated Cream [Premarin Cream] 1 applic TOP 02/02/20 Nitrofurantoin Macrocrystal [Nitrofurantoin] 100 mg PO DAILY 02/02/20 Objective - Vital Signs/Intake & Output Reviewed Vital Signs: Yes Vital Signs: Vital Signs x48h Temp Pulse Resp BP Pulse Ox 02/04/20 07:56 36.9 C 55 L 16 126/52 L 98 Intake & Output: Intake & Output 02/01/20 02/02/20 02/03/20 02/04/20 23:59 23:59 23:59 23:59 Intake Total 100 3671.667 7291.094 7384.05 Output Total 2450 1600 1100 Balance 100 1221.667 103.725 7539.05 - Objective General Appearance: positive: No acute distress, Alert Eyes Bilateral: positive: Normal inspection, Conjunctivae nml ENT: positive: ENT inspection nml Neck: positive: Nml inspection Respiratory: positive: No respiratory distress. negative: Wheezes, Rales Cardiovascular: positive: Regular rate & rhythm. negative: Tachycardia, Systolic murmur Abdomen: positive: Non-tender, No distention. negative: Tenderness, Guarding, Rebound Skin: positive: Warm, Dry Extremities: positive: No pedal edema Neurologic/Psychiatric: positive: Oriented x3. negative: Disoriented to person, Disoriented to place, Disoriented to time - Lab Results Fish Bones: 02/04/20 04:55 02/04/20 04:55 Other Labs: Lab Results x24hrs 02/04/20 02/04/20 Range/Units 04:55 04:55 WBC 7.1 (4.8-10.8) x10^3/uL RBC 3.18 L (4.20-5.40) 10^6/uL Hgb 9.0 L (12.0-16.0) g/dL Hct 30.4 L (37.0-47.0) % MCV 95.6 (81.0-99.0) fL MCH 28.3 (27.0-31.0) pg MCHC 29.6 L (32.0-36.0) g/dL RDW 15.7 H (12.0-15.0) % Plt Count 309 (130-450) 10^3/uL MPV 10.1 (7.9-10.8) fL Neut # (Auto) 4.2 (1.5-6.6) 10^3/uL Lymph # (Auto) 1.9 (1.5-3.5) 10^3/uL [place] # (Auto) 0.7 (0.0-1.0) 10^3/uL Eos # (Auto) 0.4 (0.0-0.7) 10^3/uL Baso # (Auto) 0.0 (0.0-0.1) 10^3/uL Absolute Nucleated RBC 0.00 x10^3/uL Nucleated RBC % 0.0 /100WBC Sodium 142 (135-145) mmol/L Potassium 4.4 (3.5-5.0) mmol/L Chloride 109 (101-111) mmol/L Carbon Dioxide 27 (21-32) mmol/L Anion Gap 6.0 (6-13) BUN 19 (6-20) mg/dL Creatinine 1.9 H (0.4-1.0) mg/dL Estimated GFR (MDRD) 26 L (>89) Glucose 100 (70-100) mg/dL Calcium 9.2 (8.5-10.3) mg/dL ABX Reporting Has patient been on IV antibiotics over the past 48 hours?: No Sepsis Event Note (H) - Evaluation Current Stage of Sepsis: Resolved Possible source of Sepsis: positive: Genitourinary - Sepsis Criteria Sepsis Criteria: WBC count greater than 12,000 or less than 4000, SALESPERSON HANDBAGS: altered consciousness (unrelated to primary neuro pathology), Metabolic: lactate > 2 mmol/L Assessment/Plan - Problem List (1) Sepsis Impression: There was concern for sepsis secondary to a urinary tract infection given her urinalysis suggested infection. Urine culture has grown yeast. Suspect at this time that this was more likely just SIRS secondary to dehydration rather than sepsis secondary to an infection. She has remained afebrile with no tachycardia and no leukocytosis. We will not treat the yeast in the urine. Discontinue antibioitcs. Qualifiers: Sepsis type: sepsis due to unspecified organism Sepsis acute organ dysfunction status: with acute organ dysfunction Severe sepsis acute organ dysfunction type: acute renal failure Acute renal failure type: unspecified Severe sepsis shock status: without septic shock Qualified Code(s): A41.9 - Sepsis, unspecified organism; R65.20 - Severe sepsis without septic shock; N17.9 - Acute kidney failure, unspecified (2) Altered mental status Impression: Has resolved. Her confusion on admission was likely due to dehydration and her acute kidney injury as well as possible misuse of her home opiates. She is back to her baseline neurologic status. (3) Candiduria Impression: Her urine culture has grown yeast. She denies any symptoms of dysuria, urgency. Given her lack of symptoms, we will not treat her with fluconazole. (4) Acute on chronic kidney failure Impression: Renal function has returned to baseline. Initial injury was likely prerenal. This resolved with IV fluids. Qualifiers: Acute renal failure type: unspecified (5) Constipation Impression: This resolved after an enema and disimpaction. We will continue her on a bowel regimen. (6) Anemia of chronic disease Impression: Hemoglobin has decreased slightly but this is likely dilutional. There is no evidence of bleeding.. (7) Chronic pain syndrome Impression: She is agreeable to having her opiate dose reduced. We will continue her on morphine but decrease the oxycodone dose to 5 mg. (8) HTN (hypertension) Impression: Blood pressure has improved today. We will continue her current antihypertensives. (9) Bipolar disorder Impression: Stable. Continue lithium.
[2020-02-04] MEDS ORDERED: oxyCODONE 5 MG TABLET PO PRN (11:38)
--- NOTE | 2020-02-04 18:31 | Discharge Plan ---
"Discharge Plan for SNF / [facility] - Discharge Plan And Transition Orders Problem Reviewed?: Yes Disposition: 03 [facility] DC/Xfer Condition: Stable Allergies and Adverse Reactions: Allergies Allergy/AdvReac Type Severity Reaction Status Date / Time NSAIDS (Non-Steroidal Allergy Mild Hives Verified 02/01/20 16:30 Anti-Inflamma lisinopril Allergy Unknown Verified 02/01/20 16:30 Sulfa (Sulfonamide AdvReac Mild Rash Verified 02/01/20 16:30 Antibiotics) Health Concerns: She was admitted to the hospital for what was believed to be sepsis secondary to a urinary tract infection. She also appeared dehydrated and was altered on admission. The altered mental status was felt to be secondary to possible misuse of her opiates as well as the suspected urinary tract infection and her acute kidney injury. Her renal function returned to baseline with IV fluids. She was treated with ceftriaxone IV initially. Blood cultures were negative. Urine culture ended up growing yeast and because the patient had no symptoms of a UTI, ceftriaxone was discontinued and she was not treated with fluconazole given her lack of symptoms. Her mental status has returned to baseline. She was evaluated by physical therapy who recommended long-term facility. She was also constipated during this hospitalization and imaging revealed a moderate amount of stool in her rectum. This was relieved by disimpaction and an enema. She will be discharged on a bowel regimen. We did decrease her dose of opiates which the patient was agreeable to. Plan of Treatment: Her morphine dose remained the same at 15 mg twice daily but her oxycodone has been decreased to 5 mg twice daily as needed from 10 mg. She will need follow- up with her primary care provider for ongoing management of her opiate use. It is felt that she may be misusing her medications at home as she has had multiple admissions for confusion which resolves with just IV hydration and holding her opiates. She is not discharged on any antibiotics or antifungals given her urine culture grew yeast and she has no symptoms. She is anemic but her hemoglobin has remained stable and is at her baseline. It is felt this is anemia of chronic disease given her chronic kidney disease. - SNF / [facility] Transition Orders Admit to (Facility): [facility] Discharge Diagnosis: Sepsis - resolved Altered mental status - resolved. Candiduria - stable. Acute on chronic kidney failure - resolved. Constipation - stable. Anemia of chronic disease - stable. Chronic pain syndrome - stable. Hypertension - stable. Hypothyroidism - stable. Bipolar disorder - stable. Medicare Certification Statement: I certify that [facility] long-term care is medically necessary on a continuing basis for any of the conditions for which she/he is receiving care during hospitalization. Notify PCP of admission and forward orders to primary provider for signature. Other Notification Orders: Call PCP immediately if patient develops dyspnea, chest pain/tightness or edema. House Bowel Program: Yes Additional Bowel Program Orders: If no BM after 2 days, nurse may give M.O.M. 30ml PO PRN and/or ducolax Supp 1 ME and/or TERRA 250mg P.O., and/or senna 1-2 tabs PO. On day 3 nurse may give repeat above order until residents constipation is resolved. Medication Orders: PLEASE REFER TO THE DISCHARGE MEDICATION LIST. Insulin Orders?: No - Medications New Prescriptions: polyethylene glycoL 3350 [Miralax] 17 gm PO DAILY #14 packet Gabapentin [Neurontin] 300 mg PO QPM #30 capsule oxyCODONE [Roxicodone] 5 mg PO BID PRN #20 tablet PRN Reason: Pain Senna [Senokot] 8.6 mg PO DAILY #14 tablet - Diet Texture: Regular - Therapies | Activity Therapy: Evaluation | Treat if indicated: PT, OT Rehabilitation Potential: Return to independent living Activity: No Restrictions Assistance Devices: Walker"
[2020-02-04] MEDS: GABAPENTIN 300 MG CAPSULE PO SCH (20:49)
[2020-02-04] MEDS: risperiDONE 1 MG TABLET PO SCH (20:49)
[2020-02-05] MEDS: LEVOTHYROXINE 25 MCG TABLET PO SCH (07:31)
--- NOTE | 2020-02-05 07:32 | DISCHARGE SUMMARY ---
Discharge Summary Admit Date: 02/01/20 Discharge Date: 02/05/20 Discharging Provider: Jesse Aguero Primary Care Provider: Fadi Bustos Code Status: Do Not Attempt Resuscitation Condition at Discharge: Stable Discharge Disposition: SNF DC/Xfer Discharge Facility Name: [facility] - DIAGNOSES Admission Diagnoses: Sepsis due to urinary tract infection Encephalopathy Acute on chronic kidney failure Chronic back pain Opiate abuse, continuous Noncompliance with diet and medication regimen Diabetes mellitus type 2, diet controlled Ralf of chronic disease History of deep vein thrombosis Suicidal ideation Discharge Diagnoses with Status of Each Condition: Sepsis - resolved Altered mental status - resolved. Candiduria - stable. Acute on chronic kidney failure - resolved. Constipation - stable. Anemia of chronic disease - stable. Chronic pain syndrome - stable. Hypertension - stable. Hypothyroidism - stable. Bipolar disorder - stable. - HPI History of Present Illness: H&P per Dr. Merritt: This is a 69-year-old white female who is well-known to our hospitalist service. Unfortunately this morbidly obese female with diabetes, and chronic pain syndrome, refuses to allow someone else to manage her medications. Her has his own cognitive disorder, and they have private duty caregivers as well as funded caregivers come to the house several times a week. There is also a nurse who comes to dispense medication but Ms. Alberto does not allow that nurse to dispense her opiates. The patient is fiercely protective of the ability to give herself her own chronic pain meds. She has been admitted multiple times with the thought that the patient is oversedated, and abusing her opiates. rehabilitation services director have been involved, the patient has been placed in a detention facility for rehab several times, and Adult Protective Services has been notified. With this most recent discharge for medication noncompliance resulting in dehydration and acute kidney injury, the patient was discharged to detention facility. She has since returned to home. She was brought back to the emergency room today by private vehicle and caregiver indicated that the patient is becoming more confused ever since she came back from the [facility]. Guards her medications very closely. Has become more and more confused, she is not getting out of bed. There is always an open bottle of morphine at the bedside. to Day she was so "out of it" and very confused. Although the open bottle of morphine was at the bedside, the automated pill dispenser that the patient is supposed to be taking is still full of her medication. The patient has not been taking her normal meds. She has bipolar and is to be on lithium. In the emergency room she was evaluated by TERRY Vargas. Temperature 37.8. A disheveled confused morbidly obese female who was normotensive. 99% on room air. Pupils were unequal. Moist oral membranes. No meningeal symptoms on neck. Clear lungs, benign abdomen, bruising of the right hand, Antonino Coma Scale 14. Able to follow commands, but confused. She is not on Glucophage. Her white cell count was 12.6 and elevated again. She has chronic anemia with a hemoglobin of 10.2. Creatinine is acutely elevated at 2.7. Lactic acid is 2.5. Urinalysis has a small amount of leukocyte Estrace. Greater than 25 white cells. No red cells. Few transitional epithelial, rare squamous, rare bacteria. CT of the head is negative. She has age-appropriate brain, normal volume loss and chronic small vessel ischemic changes. Abdomen pelvis CT was done because of the UTI with sepsis criteria and there is moderate fecal loading throughout the colon. Diverticulosis without evidence of diverticulitis. No free fluid or free air. No dilated loops of bowel, and most importantly no urinary obstruction. - CONSULTS | PROCEDURES Consultations: Social Work, PT - HOSPITAL COURSE Hospital Course: She was admitted to the hospital for what was believed to be sepsis secondary to a urinary tract infection. She also appeared dehydrated and was altered on admi ssion. The altered mental status was felt to be secondary to possible misuse of her opiates as well as the suspected urinary tract infection and her acute kidney injury. Her renal function returned to baseline with IV fluids. She was treated with ceftriaxone IV initially. Blood cultures were negative. Urine culture ended up growing yeast and because the patient had no symptoms of a UTI, ceftriaxone was discontinued and she was not treated with fluconazole given her lack of symptoms. Her mental status has returned to baseline. She was evaluated by physical therapy who recommended detention facility. She was also constipated during this hospitalization and imaging revealed a moderate amount of stool in her rectum. This was relieved by disimpaction and an enema. She will be discharged on a bowel regimen. We did decrease her dose of opiates which the patient was agreeable to. Her morphine dose remained the same at 15 mg twice daily but her oxycodone has been decreased to 5 mg twice daily as needed from 10 mg. She will need follow- up with her primary care provider for ongoing management of her opiate use. It is felt that she may be misusing her medications at home as she has had multiple admissions for confusion which resolves with just IV hydration and holding her opiates. She is anemic but her hemoglobin has remained stable and is at her baseline. It is felt this is anemia of chronic disease given her chronic kidney disease. - ALLERGIES Allergies/Adverse Reactions: Allergies Allergy/AdvReac Type Severity Reaction Status Date / Time NSAIDS (Non-Steroidal Allergy Mild Hives Verified 02/01/20 16:30 Anti-Inflamma lisinopril Allergy Unknown Verified 02/01/20 16:30 Sulfa (Sulfonamide AdvReac Mild Rash Verified 02/01/20 16:30 Antibiotics) - MEDICATIONS Home Medications: Ambulatory Orders Medication Instructions Recorded Confirmed LORazepam [Ativan] 0.5 mg PO BID PRN #60 tablet 07/17/19 02/02/20 Levothyroxine Sodium 50 mcg PO QDAC #30 07/17/19 02/02/20 [place] Carbonate 300 mg PO DAILY #30 07/17/19 02/02/20 Metoprolol Succinate [Toprol Xl] 50 mg PO DAILY #30 07/17/19 02/02/20 Venlafaxine HCl 75 mg PO BID #60 07/17/19 02/02/20 gemfibroziL [Gemfibrozil] 600 mg PO BID #60 07/17/19 02/02/20 risperiDONE [Risperdal] 1 mg PO QPM #30 07/17/19 02/02/20 Omeprazole 20 mg PO DAILY 11/15/19 02/02/20 Cimetidine 400 mg PO BID PRN 11/26/19 02/02/20 Nystatin Cream [Mycostatin Cream] 1 applic TOP BID #1 tube 11/28/19 12/03/19 Morphine ER 15 mg PO Q12H PRN #10 tablet 12/07/19 02/02/20 amLODIPine [Norvasc] 10 mg PO DAILY #20 tablet 12/07/19 02/02/20 Estrogens, Conjugated Cream 1 applic TOP 02/02/20 [Premarin Cream] Gabapentin [Neurontin] 300 mg PO QPM #30 capsule 02/05/20 Senna [Senokot] 8.6 mg PO DAILY #14 tablet 02/05/20 oxyCODONE [Roxicodone] 5 mg PO BID PRN #20 tablet 02/05/20 polyethylene glycoL 3350 [Miralax] 17 gm PO DAILY #14 packet 02/05/20 - PHYSICAL EXAM AT DISCHARGE General Appearance: positive: No acute distress, Alert Eyes Bilateral: positive: Normal inspection, Conjunctivae nml ENT: positive: ENT inspection nml Neck: positive: Nml inspection Respiratory: positive: No respiratory distress. negative: Wheezes, Rales Cardiovascular: positive: Regular rate & rhythm, No murmur. negative: Tachycardia, Systolic murmur Abdomen: positive: Non-tender, No distention. negative: Tenderness, Guarding, Rebound Skin: positive: Warm, Dry Extremities: positive: Full ROM, No pedal edema Neurologic/Psychiatric: positive: Oriented x3, Motor nml. negative: Disoriented to person, Disoriented to place, Disoriented to time Physical Exam Other/Comments: Vital Signs - 24 hr 02/04/20 02/05/20 23:53 08:00 Temperature 36.6 C 36.6 C Heart Rate [ 52 L Monitoring electrodes] Heart Rate [ 48 L Radial] Respiratory 16 20 Rate Blood Pressure 131/71 H [Left Brachial artery] Blood Pressure 134/88 H [Right Brachial artery] O2 Saturation 98 99 Oxygen O2 Source [Without Activity] Room air O2 Source Room air - LABS Result Diagrams: 02/04/20 04:55 02/04/20 04:55 - DIAGNOSTIC IMAGING Diagnostic Imaging Results: Final report reviewed - SEPSIS Current Stage of Sepsis: Resolved Possible source of Sepsis: Genitourinary Sepsis Criteria: WBC count greater than 12,000 or less than 4000, COOKER SYRUP: altered consciousness (unrelated to primary neuro pathology), Metabolic: lactate > 2 mmol/L - FOLLOW UP Follow Up: She will need to follow-up with her primary care provider to discuss weaning off of the opiates. - TIME SPENT Time Spent in Discharge (Minutes): 32
[2020-02-05 08:23] VITALS: BP 131/71
[2020-02-05] MEDS: amLODIPine 5 MG TABLET PO SCH (08:30)
[2020-02-05] MEDS: gemfibroziL 600 MG TABLET PO SCH (08:31)
[2020-02-05] MEDS: ENOXAPARIN 30 MG/0.3 ML SYRINGE SUBQ SCH (08:44)
[2020-02-05] MEDS: MORPHINE ER 15 MG TABLET PO SCH (08:46)
[2020-02-05] MEDS: PANTOPRAZOLE 40 MG TABLET PO SCH (08:47)
[2020-02-05] MEDS: METOPROLOL SUCCINATE 50 MG TABLET PO SCH (08:49)
[2020-02-05] MEDS: VENLAFAXINE 37.5 MG TABLET PO SCH (08:50)
[2020-02-05] MEDS: SODIUM CHLORIDE FLUSH 0.9% 10 ML SYRINGE IVP SCH (08:57)
[2020-02-05] MEDS ORDERED: LITHIUM 150 MG CAPSULE PO SCH (09:00)
== END 2020-02-05 13:35 | DRG 871 ==
LOC: ED 16:18 → MS2 21:20
PROVIDERS: ADMIT Specialist; ATTEND Specialist
DX: B37.7 Candidal sepsis (principal); G92 Toxic encephalopathy; N30.00 Acute cystitis without hematuria; K56.41 Fecal impaction; J44.9 Chronic obstructive pulmonary disease, unspecified; G93.41 Metabolic encephalopathy; N17.9 Acute kidney failure, unspecified; E78.00 Pure hypercholesterolemia, unspecified; R45.851 Suicidal ideations; B37.49 Other urogenital candidiasis; R65.20 Severe sepsis without septic shock; I12.9 Hypertensive chronic kidney disease with stage 1 through stage 4 chronic kidney disease, or unspecified chronic kidney disease; F17.200 Nicotine dependence, unspecified, uncomplicated; R01.1 Cardiac murmur, unspecified; E11.22 Type 2 diabetes mellitus with diabetic chronic kidney disease; N18.9 Chronic kidney disease, unspecified; E11.42 Type 2 diabetes mellitus with diabetic polyneuropathy; E86.0 Dehydration; D63.1 Anemia in chronic kidney disease; T40.601A Poisoning by unspecified narcotics, accidental (unintentional), initial encounter; Y92.009 Unspecified place in unspecified non-institutional (private) residence as the place of occurrence of the external cause; I10 Essential (primary) hypertension; E03.9 Hypothyroidism, unspecified; K21.9 Gastro-esophageal reflux disease without esophagitis; F31.9 Bipolar disorder, unspecified; F11.10 Opioid abuse, uncomplicated; E66.01 Morbid (severe) obesity due to excess calories; Z68.34 Body mass index [BMI] 34.0-34.9, adult; G89.29 Other chronic pain; G89.4 Chronic pain syndrome; M54.9 Dorsalgia, unspecified; K59.09 Other constipation; R32 Unspecified urinary incontinence; R53.83 Other fatigue; Z20.828 Contact with and (suspected) exposure to other viral communicable diseases; Z74.09 Other reduced mobility; Z96.653 Presence of artificial knee joint, bilateral; Z91.14 Patient's other noncompliance with medication regimen; Z91.19 Patient's noncompliance with other medical treatment and regimen; Z98.1 Arthrodesis status; Z79.891 Long term (current) use of opiate analgesic; Z79.899 Other long term (current) drug therapy; Z86.718 Personal history of other venous thrombosis and embolism; Z91.81 History of falling; Z72.89 Other problems related to lifestyle; Z87.19 Personal history of other diseases of the digestive system; Z87.891 Personal history of nicotine dependence
CPT/HCPCS: 36415; 51701; 70450; 71045; 74176; 80048; 80053; 80178; 81001; 82140; 83605; 83690; 84443; 85025; 87040; 87086; 96365; 97161; 97530; 99285; A9270; J1650; J7120; U0004; 80306; 80307; 80320; 80329; 81003

== ENCOUNTER 2020-03-13 11:23 | Outpatient (CLI) | payer MEDICARE, MEDICAID | END 2020-03-13 11:24 | disposition critical access hospital (66) | LOC: EMS 11:23 | PROVIDERS: ATTEND Surgery | DX: R41.0 Disorientation, unspecified (principal); R53.1 Weakness; R73.09 Other abnormal glucose | CPT/HCPCS: A0425; A0429 ==

== ENCOUNTER 2020-03-13 11:58 | Inpatient (IN) | payer MEDICARE, MEDICAID ==
--- NOTE | 2020-03-13 12:22 | ED Physician Documentation ---
History of Present Illness - Stated complaint Stated Complaint: WEAKNESS/CONFUSION - Chief complaint Chief Complaint: Neuro - History obtained from History obtained from: Patient, EMS - Additonal information Additional information: 69-year-old female was brought into the emergency department for evaluation of confusion and altered mental status. Per the EMS report this lady has recently had a change in her narcotic prescription in which her provider may have decreased the dose however the patient is in charge of taking her medications on her own. She does have a history of sepsis secondary to urinary tract infection acute on chronic kidney failure encephalopathy and opiate abuse as well as diabetes. On scene her blood glucose was 69. She was given oral glucose. Here in the emergency department her glucose is 92. She is somnolent but arouses easily and is oriented to person place and time. She reports that she feels dizzy but denies chest pain or abdominal pain. Rest of the review of systems is difficult to obtain secondary to somnolence Review of Systems Unable to obtain: AMS, Confused PD PAST MEDICAL HISTORY - Past Medical History Cardiovascular: Hypertension, High cholesterol, Deep vein thrombosis, Murmur Respiratory: Asthma, COPD, Shortness of breath Neuro: None, Peripheral neuropathy Endocrine/Autoimmune: Type 2 diabetes GI: GERD, Chronic constipation, Pancreatitis : Incontinence, Chronic bladder infection HEENT: None Psych: Anxiety, Bipolar disorder, Other Musculoskeletal: Osteoarthritis, Fatigue, Chronic back pain, Other Derm: Other - Past Surgical History Past Surgical History: Yes General: EGD, Colonoscopy Ortho: Knee replacement, Spine surgery /[employer]TE [employer]: section HEENT: Tonsil/Adenoidectomy - Present Medications Home Medications: Ambulatory Orders Medication Instructions Recorded Confirmed LORazepam [Ativan] 0.5 mg PO BID PRN #60 tablet 07/17/19 02/02/20 Levothyroxine Sodium 50 mcg PO QDAC #30 07/17/19 02/02/20 [place] Carbonate 300 mg PO DAILY #30 07/17/19 02/02/20 Metoprolol Succinate [Toprol Xl] 50 mg PO DAILY #30 07/17/19 02/02/20 Venlafaxine HCl 75 mg PO BID #60 07/17/19 02/02/20 gemfibroziL [Gemfibrozil] 600 mg PO BID #60 07/17/19 02/02/20 risperiDONE [Risperdal] 1 mg PO QPM #30 07/17/19 02/02/20 Omeprazole 20 mg PO DAILY 11/15/19 02/02/20 Cimetidine 400 mg PO BID PRN 11/26/19 02/02/20 Nystatin Cream [Mycostatin Cream] 1 applic TOP BID #1 tube 11/28/19 12/03/19 Morphine ER 15 mg PO Q12H PRN #10 tablet 12/07/19 02/02/20 amLODIPine [Norvasc] 10 mg PO DAILY #20 tablet 12/07/19 02/02/20 Estrogens, Conjugated Cream 1 applic TOP 02/02/20 [Premarin Cream] Gabapentin [Neurontin] 300 mg PO QPM #30 capsule 02/05/20 Senna [Senokot] 8.6 mg PO DAILY #14 tablet 02/05/20 oxyCODONE [Roxicodone] 5 mg PO BID PRN #20 tablet 02/05/20 polyethylene glycoL 3350 [Miralax] 17 gm PO DAILY #14 packet 02/05/20 - Allergies Allergies/Adverse Reactions: Allergies Allergy/AdvReac Type Severity Reaction Status Date / Time NSAIDS (Non-Steroidal Allergy Mild Hives Verified 02/01/20 16:30 Anti-Inflamma lisinopril Allergy Unknown Verified 02/01/20 16:30 Sulfa (Sulfonamide AdvReac Mild Rash Verified 02/01/20 16:30 Antibiotics) - Social History Does the pt smoke?: Yes Smoking Status: Current some day smoker Does the pt drink ETOH?: No Does the pt have substance abuse?: No - Immunizations Immunizations are current?: Yes Immunizations: TDAP >10years/unknown - POLST Patient has POLST: No POLST Status: Full Code PD ED PE EXPANDED - General General: Disheveled, poorly kept, Other (somnolent, arouses easily) - HEENT HEENT: PERRL, EOMI - Neck Neck: Supple w/out meningeal sx, No tenderness. No: Soft tissue TTP, Limited ROM - Cardiac Cardiac: Regular Rate, Regular Rhythm, Murmur Present, Radial strong equal, Pedal strong equal, Cap refill < 2 sec - Respiratory Respiratory: Clear to ausultation cynthia. No: Distress, Labored - Abdomen Abdomen: Normal Bowel sounds. No: Tender to palpation - Extremities Extremities: Other (bruising right arm) - Neuro Neuro: Confused, CNII-XII intact - GCS Eye Opening: Spontaneous Motor: Obeys Commands Verbal: Oriented Total: 15 Results - Vitals Vitals: Vital Signs - 24 hr 03/13/20 03/13/20 03/13/20 12:00 12:24 13:23 Temperature 36.9 C 36.2 C L Heart Rate 66 73 68 Respiratory 14 18 15 Rate Blood Pressure 124/53 L 108/51 L 127/55 L O2 Saturation 96 96 100 Oxygen O2 Source [] Room air O2 Source Room air - EKG (time done) 1213 Rate: Rate (enter#) (73) Rhythm: NSR Amory: LAD Intervals: Normal MD QRS: Normal Ischemia: Non specific changes Compare to prior EKG: Unchanged from prior EKG Computer interpretation: Agree with computer - Labs Labs: Laboratory Tests 03/13/20 03/13/20 03/13/20 12:40 12:40 12:40 WBC 13.0 H RBC 3.86 L Hgb 11.0 L Hct 36.0 L MCV 93.3 MCH 28.5 MCHC 30.6 L RDW 15.7 H Plt Count 457 H MPV 10.1 Neut # (Auto) 11.2 H Lymph # (Auto) 1.0 L Norton # (Auto) 0.5 Eos # (Auto) 0.1 Baso # (Auto) 0.1 Absolute Nucleated RBC 0.00 Nucleated RBC % 0.0 Sodium 134 L Potassium 4.5 Chloride 96 L Carbon Dioxide 18 L Anion Gap 20.0 H BUN 35 H Creatinine 3.7 H Estimated GFR (MDRD) 12 L Glucose 138 H Lactic Acid 2.2 Calcium 9.4 Total Bilirubin 0.9 AST 13 ALT < 10 L Alkaline Phosphatase 162 H Troponin I High Sens Total Protein 7.2 Albumin 3.5 Globulin 3.7 Albumin/Globulin Ratio 0.9 L TSH Urine Color Urine Clarity Urine pH Ur Specific [place] Urine Protein Urine Glucose (UA) Urine Ketones Urine Occult Blood Urine Nitrite Urine Bilirubin Urine Urobilinogen Ur Leukocyte Esterase Urine RBC Urine WBC Ur Squamous Epith Cells Urine Bacteria Urine Culture Comments Urine Opiates Screen Ur Oxycodone Screen Urine Methadone Screen Ur Propoxyphene Screen Ur Barbiturates Screen Ur Tricyclics Screen Ur Phencyclidine Scrn Ur Amphetamine Screen U Methamphetamines Scrn U Benzodiazepines Scrn Urine Cocaine Screen U Cannabinoids Screen 03/13/20 03/13/20 03/13/20 12:40 12:40 12:50 WBC RBC Hgb Hct MCV MCH MCHC RDW Plt Count MPV Neut # (Auto) Lymph # (Auto) Norton # (Auto) Eos # (Auto) Baso # (Auto) Absolute Nucleated RBC Nucleated RBC % Sodium Potassium Chloride Carbon Dioxide Anion Gap BUN Creatinine Estimated GFR (MDRD) Glucose Lactic Acid Calcium Total Bilirubin AST ALT Alkaline Phosphatase Troponin I High Sens 8.3 Total Protein Albumin Globulin Albumin/Globulin Ratio TSH 1.33 Urine Color YELLOW Urine Clarity CLOUDY Urine pH 6.0 Ur Specific [place] 1.015 Urine Protein TRACE Urine Glucose (UA) NEGATIVE Urine Ketones TRACE Urine Occult Blood TRACE-INTA Urine Nitrite NEGATIVE Urine Bilirubin NEGATIVE Urine Urobilinogen 0.2 (NORMAL) Ur Leukocyte Esterase MODERATE H Urine RBC None Seen Urine WBC >25 H Ur Squamous Epith Cells NONE SEEN Urine Bacteria Moderate H Urine Culture Comments INDICATED Urine Opiates Screen POSITIVE H Ur Oxycodone Screen NEGATIVE Urine Methadone Screen NEGATIVE Ur Propoxyphene Screen NEGATIVE Ur Barbiturates Screen NEGATIVE Ur Tricyclics Screen POSITIVE H Ur Phencyclidine Scrn NEGATIVE Ur Amphetamine Screen NEGATIVE U Methamphetamines Scrn NEGATIVE U Benzodiazepines Scrn POSITIVE H Urine Cocaine Screen NEGATIVE U Cannabinoids Screen NEGATIVE - Rads (name of study) cxr Radiology: Final report received (No acute cardiopulmonary process) PD MEDICAL DECISION MAKING - ED course Complexity details: reviewed results, re-evaluated patient, considered differential, d/w patient, d/w vocational rehab consultant ED course: 69-year-old female was brought into the emergency department for evaluation of altered mental status. She does have a history of opioid abuse as well as chronic kidney disease and multiple presentations for urinary tract infection. On exam she has no focal neuro deficits but is quite somnolent and has to be aroused frequently. Blood glucose 92 mg/dL. Here on labs she has a mild leukocytosis of just about 13,000. We do note a rise in her creatinine of 3.9. This is almost double her baseline. lactic acid 2.2. Pt does nto present as septic or in shock. I discussed this case with hospitalist Dr. Christel Merritt. We will bring Annika into the hospital for further evaluation and treatment of her acute kidney injury. Though her urine appears infected the previous 2 cultures have not grown any bacteria. We will pend antibiotics unless symptoms fail to change. Blood cultures are pending as well. Respiratory PCR panel pending Departure - Departure Disposition: 66 [facility] DC/Xfer Clinical Impression: VICKIE (acute kidney injury), AMS (altered mental status)
--- NOTE | 2020-03-13 12:45 | XRAY Report ---
PROCEDURE: Chest 1 View X-Ray INDICATIONS: Chest Pain TECHNIQUE: One view of the chest was acquired. COMPARISON: 02/03/2020 FINDINGS: Surgical changes and devices: None. Lungs and pleura: No pleural effusions or pneumothorax. Lungs are clear. Mediastinum: Mediastinal contours appear normal. Heart size is normal. Bones and chest wall: No suspicious bony lesions. Overlying soft tissues appear unremarkable. IMPRESSION: No acute cardiopulmonary disease process. Reviewed by: Malinda Roberson MD, PhD on 03/13/2020 12:43 PM [facility] Approved by: Mlainda Roberson MD, PhD on 03/13/2020 12:43 PM [facility] Station ID: [id number]
[2020-03-13 12:51] LABS: BASOPHILS # (AUTO) 0.1 10^3/uL (0.0-0.1); BASOPHILS % (AUTO) 0.4 %; EOSINOPHILS # (AUTO) 0.1 10^3/uL (0.0-0.7); LYMPHOCYTES % (AUTO) 7.9 %; MEAN CORPUSCULAR HEMOGLOBIN 28.5 pg (27.0-31.0); MEAN CORPUSCULAR HGB CONC 30.6 g/dL (32.0-36.0); MEAN CORPUSCULAR VOLUME 93.3 fL (81.0-99.0); MEAN PLATELET VOLUME 10.1 fL (7.9-10.8); MONOCYTES # (AUTO) 0.5 10^3/uL (0.0-1.0); MONOCYTES % (AUTO) 3.9 %; NEUTROPHILS # (AUTO) 11.2 10^3/uL (1.5-6.6); NEUTROPHILS % (AUTO) 86.3 %; PLT - PLATELET COUNT 457 10^3/uL (130-450); RED BLOOD COUNT 3.86 10^6/uL (4.20-5.40); RED CELL DISTRIBUTION WIDTH 15.7 % (12.0-15.0)
[2020-03-13 13:09] LABS: MUDS CUTOFF CONCENTRATIONS CUTOFF CONC BELOW:
[2020-03-13] MEDS ORDERED: SODIUM CHLORIDE 0.9% 1,000 ML IV STA (13:10)
[2020-03-13 13:12] LABS: ALBUMIN 3.5 g/dL (3.2-5.5); ALBUMIN/GLOBULIN RATIO 0.9 (1.0-2.2); ALKALINE PHOSPHATASE 162 IU/L (42-121); ALT ALANINE AMINOTRANSFERASE < 10 IU/L (10-60); AST ASPARTATE AMINOTRANSFERASE 13 IU/L (10-42); BILIRUBIN,TOTAL 0.9 mg/dL (0.2-1.0); BUN - BLOOD UREA NITROGEN 35 mg/dL (6-20); CALCIUM 9.4 mg/dL (8.5-10.3); CARBON DIOXIDE - CO2 18 mmol/L (21-32); CHLORIDE 96 mmol/L (101-111); CREATININE 3.7 mg/dL (0.4-1.0); GLUCOSE 138 mg/dL (70-100); SODIUM 134 mmol/L (135-145); TOTAL PROTEIN 7.2 g/dL (6.7-8.2)
[2020-03-13 13:18] LABS: BILIRUBIN,URINE NEGATIVE (NEGATIVE); GLUCOSE, URINE (UA) NEGATIVE (NEGATIVE); KETONES,URINE (UA) TRACE mg/dL (NEGATIVE); LEUKOCYTE ESTERASE, URINE MODERATE (NEGATIVE); NITRITE,URINE NEGATIVE (NEGATIVE); OCCULT BLOOD,URINE TRACE-INTA (NEGATIVE); PROTEIN,URINE TRACE mg/dL (NEGATIVE); UROBILINOGEN,URINE 0.2 (NORMAL) E.U./dL (NORMAL)
[2020-03-13 13:23] LABS: CLARITY,URINE CLOUDY (CLEAR)
[2020-03-13 13:25] LABS: AMPHETAMINE SCREEN,URINE NEGATIVE (NEGATIVE); BENZODIAZEPINES SCREEN, URINE POSITIVE (NEGATIVE); COCAINE SCREEN URINE NEGATIVE (NEGATIVE); METHADONE SCREEN, URINE NEGATIVE (NEGATIVE); METHAMPHETAMINES SCREEN, URINE NEGATIVE (NEGATIVE); OPIATE SCREEN, URINE POSITIVE (NEGATIVE); OXYCODONE SCREEN, URINE NEGATIVE (NEGATIVE); PROPOXYPHENE SCREEN, URINE NEGATIVE (NEGATIVE); TRICYCLIC ANTIDEPRESSANT,URINE POSITIVE (NEGATIVE)
[2020-03-13 13:28] LABS: BACTERIA,URINE Moderate /HPF (None Seen); RBC,URINE None Seen /HPF (0-5); SQUAMOUS EPITHELIAL CELL,UR NONE SEEN (<= Few)
[2020-03-13] MEDS ORDERED: cefTRIAXone 1 GM in SODIUM CHLORIDE 0.9% MINIBAG 100 ML IV STA (13:44)
[2020-03-13] MEDS ORDERED: ONDANSETRON ODT 4 MG TABLET TL PRN (13:47)
[2020-03-13] MEDS ORDERED: SODIUM CHLORIDE FLUSH 0.9% 10 ML SYRINGE IVP PRN (13:47)
[2020-03-13] MEDS ORDERED: ONDANSETRON 4 MG/2 ML VIAL IVP PRN (13:47)
[2020-03-13] MEDS ORDERED: ACETAMINOPHEN 325 MG TABLET PO PRN (13:47)
[2020-03-13] MEDS: LACTATED RINGERS 1,000 ML IV SCH (15:41)
[2020-03-13] MEDS: METOPROLOL TARTRATE 50 MG TABLET PO SCH ×2 (15:42→22:16)
[2020-03-13] MEDS: SODIUM CHLORIDE FLUSH 0.9% 10 ML SYRINGE IVP SCH (15:42)
--- NOTE | 2020-03-13 15:54 | HISTORY & PHYSICAL EXAMINATION ---
Chief Complaint - Chief Complaint Chief Complaint: Altered mental status History of Present Illness - Admitted From Admitted From:: Home via EMS - History Obtained From Records Reviewed: Chart History obtained from: Patient, chart, and Edward Alberto Exam Limitations: Altered mental status - History of Present Illness HPI Comment/Other: Patient is a 69-year-old female with a history of diabetes, hypertension, hyperl ipidemia, anxiety, bipolar, chronic bladder infections who has unfortunately been admitted to our hospitalist service several times in the last few months for confusion and acute kidney injury. She presents to the emergency department today via EMS for worsening confusion per her Edward. Patient was found to be somnolent this morning and increasingly "goofy" and confused by her this morning. He said she has been intermittently confused this past few days but her mental status has gotten "very bad" today prompting him to call 911. She was noted to be hypoglycemic by EMS. Her blood glucose was 69. She was given two glucose tablets before coming to the ED. Her blood sugar is now normal at 136. Upon arriving to the ED, she was afebrile, normotensive, and oxygenating well on room air. Her lab results are significant for a creatinine level of 3.2, lactate 2.2, and AG of 20. She is baseline at 1.3-1.5. Patient is confused, somnolent but arousable to voice. GCS score is 13. She is oriented to self and place only. Patient is not able to tell me why she was here and what happened today before coming to the hospital. She is only able to answer some questions appropriately and perseverates on certain words and thoughts. She appears to be very emotional and upset at one point and expresses frustration in her current situation. She reports not feeling well this morning and denies mistaking her medications at home. Though she could not tell me how she has been taking them. She denies having fever, chills. But states she has not been feeling well. No dyspnea, cough, chest pain, palpitations. Denies nausea/vomiting or abdominal pain, melena/hematochezia. She admits to not having an appetite. No urinary frequency or urgency, dysuria or hematuria. She has baseline tremors and twitches. She cannot tell me if she feels weaker than usual. She is having a lot of trouble answering questions and intermittently falling asleep. Her Edward was not at the bedside but was called to gather more information. Edward states the patient has not been eating or drinking fluid since she has been discharge from a rehab center from [place] a week in a half ago. He tells me patient is normally very coherent, cheerful, even "sassy" and can make her doctors appointment on her own. Though she is unable to physically care for herself due to sciatica and chronic back pain. She has been bedridden and sedentary for the past few years requiring caregivers visits daily. He himself suffered a stroke a couple of years ago and cannot care for her either. He reports not being able to manage her medication and that she manages them herself with a mobilize dispenser. He is unsure of how she takes her morphine, oxycotin, or lorazepam. She is very protective of her pain medication and does not allow anyone to manage it for her. Edward mentions her PCP recently lowered her morphine dose. However, he is uncertain why that change was made. He expresses concern for her frequent mental status change this year and attributes this to UTI. Patient will be admitted to the medical unit for close monitoring overnight. History - Past Medical History Cardiovascular: reports: Hypertension, High cholesterol, Deep vein thrombosis, Murmur Respiratory: reports: Asthma, COPD, Shortness of breath Neuro: reports: None, Peripheral neuropathy Endocrine/Autoimmune: reports: Type 2 diabetes GI: reports: GERD, Chronic constipation, Pancreatitis : reports: Incontinence, Chronic bladder infection HEENT: reports: None Psych: reports: Anxiety, Bipolar disorder, Other Musculoskeletal: reports: Osteoarthritis, Fatigue, Chronic back pain, Other Derm: reports: Other MRSA Hx?: No - Past Surgical History General: reports: EGD, Colonoscopy Ortho: reports: Knee replacement, Spine surgery /CAREER DEVELOPMENT SPECIALIST: reports: section HEENT: reports: Tonsil/Adenoidectomy - Family & Social History Family History: Mother: , CAD, Father: , CAD Family History Comment/Other: Both mother and father of heart disease at the age of 57. Living arrangement: At home (with spouse Edward. Has caregivers visiting 4 hours each day, 6 days/week.) Living Situation: With spouse/s.o. Social History Notes: She smoked 1ppd. Uses CBD cannabis oil sublingual. She does not drink alcohol - Substance History Use: Uses substance without health or social issues: Tobacco (hx) - POLST Patient has POLST: No POLST Status: Full Code Meds/Allgy - Home Medications Home Medications: Ambulatory Orders Medication Instructions Recorded Confirmed LORazepam [Ativan] 0.5 mg PO BID PRN #60 tablet 07/17/19 03/13/20 Levothyroxine Sodium 50 mcg PO QDAC #30 07/17/19 03/13/20 [place] Carbonate 300 mg PO DAILY #30 07/17/19 03/13/20 Metoprolol Succinate [Toprol Xl] 50 mg PO DAILY #30 07/17/19 03/13/20 Venlafaxine HCl 75 mg PO BID #60 07/17/19 03/13/20 gemfibroziL [Gemfibrozil] 600 mg PO BID #60 07/17/19 03/13/20 risperiDONE [Risperdal] 1 mg PO QPM #30 07/17/19 03/13/20 Omeprazole 20 mg PO QDAC 11/15/19 03/13/20 Cimetidine 400 mg PO BID PRN 11/26/19 03/13/20 Morphine ER 15 mg PO Q12H PRN #10 tablet 12/07/19 03/13/20 Estrogens, Conjugated Cream 0.5 gm VG QPM 02/02/20 03/13/20 [Premarin Cream] Amlodipine Besylate [Norvasc] 10 mg PO DAILY 03/13/20 03/13/20 Gabapentin [Neurontin] 100 mg PO 0800,1400 03/13/20 03/13/20 Gabapentin [Neurontin] 500 mg PO QPM 03/13/20 03/13/20 Nitrofurantoin [Macrobid] 100 mg PO DAILY 03/13/20 03/13/20 Ondansetron [Ondansetron Odt] 8 mg PO BID PRN 03/13/20 03/13/20 - Allergies Allergies/Adverse Reactions: Allergies Allergy/AdvReac Type Severity Reaction Status Date / Time NSAIDS (Non-Steroidal Allergy Mild Hives Verified 02/01/20 16:30 Anti-Inflamma lisinopril Allergy Unknown Verified 02/01/20 16:30 Sulfa (Sulfonamide AdvReac Mild Rash Verified 02/01/20 16:30 Antibiotics) Review of Systems - Constitutional Constitutional: reports: Fatigue, Weakness, Poor appetite. denies: Fever, Chills, Malaise, Diaphoresis, Night sweats, Weight gain, Weight loss - Eyes Eyes: denies: Pain, Blurred vision, Vision loss - Ears, Nose & Throat Ears, Nose & Throat: denies: Ear pain, Hearing loss, Hearing aids, Vertigo, Nasal congestion, Sore throat - Cardiovascular Cariovascular: denies: Irregular heart rate, Palpitations, Chest pain, Edema, Lightheadedness, Syncope, Exertional dyspnea, Orthopnea - Respiratory Respiratory: denies: Cough, Sputum production, Wheezing, Orthopnea, SOB at rest, SOB with exertion - Gastrointestinal Gastrointestinal: reports: Poor appetite. denies: Abdominal pain, Abdominal distention, Black stools, Bloody stools - Genitourinary Genitourinary: denies: Dysuria, Frequency, Urgency, Hematuria - Musculoskeletal Musculoskeletal: reports: Muscle aches, Muscle weakness, Joint pain - Integumentary Integumentary: reports: Other (unable to answer) - Neurological Neurological: reports: General weakness. denies: Headache, Numbness - Psychiatric Psychiatric: reports: Other (unable to answer) - Endocrine Endocrine: reports: Other (unable to answer) - All Other Systems All Other Systems: reports: Reviewed and negative Prior Level of Functionality: Patient is sedentary and is usually in bed or sits in chair most of the day. She is dependent on a walker to get from her bed to the bathroom which is 15 ft away (per ). She does not engage in any housework or physical activities. She is dependent on caregivers to complete her ADLs. Exam - Vital Signs Reviewed Vital Signs: Yes Vital Signs: Vital Signs x48h Temp Pulse Resp BP Pulse Ox 03/13/20 14:13 36.3 C L 75 15 132/59 H 100 03/13/20 13:23 36.2 C L 68 15 127/55 L 100 03/13/20 12:24 73 18 108/51 L 96 03/13/20 12:00 36.9 C 66 14 124/53 L 96 - Physical Exam General Appearance: positive: No acute distress, Lethargic, Other (Patient is somnolent but arousable. She appears disheveled and older than stated age.) Eyes Bilateral: positive: PERRL, No lid inflammation, No scleral icterus, Other (Unable to complete EOM due to altered mental status. Cannot follow my fingers.) ENT: positive: ENT inspection nml, Dry mucous membranes. negative: Purulent nasal drainage, Pharyngeal erythema Neck: positive: Nml inspection, Thyroid nml, No JVD, Trachea midline. negative: Thyromegaly, Stiff neck, Tracheal deviation Respiratory: positive: Chest non-tender, No respiratory distress, Breath sounds nml. negative: Wheezes, Rales, Rhonchi Cardiovascular: positive: Regular rate & rhythm. negative: No murmur, No gallop, Irregularly irregular, Tachycardia, Bradycardia, PMI displaced laterally, JVD present, Systolic murmur, Diastolic murmur, Gallop/S3, Gallop/S4, Friction rub Peripheral Pulses: positive: 2+ Abdomen: positive: Non-tender, No distention, Abnml bowel sounds (hypoactive bowel sounds). negative: Nml bowel sounds, Tenderness, Guarding, Rebound Skin: positive: Color nml, Warm, Dry, Skin rash (dryness and flaking patch of skin on RLE). negative: Cyanosis, Diaphoresis, Pallor Extremities: positive: Non-tender, Pedal edema (+2 pitting edema of the RLE and +1 of the LLE). negative: Calf tenderness, Joint swelling Neurologic/Psychiatric: positive: CN's nml (2-12), Sensation nml, Disoriented to time, Weakness (3/5 strength bilateral LE and 4/5 bilateral UE), Other (Perseverates on certain words and thoughts. Having trouble expressing herself. Delayed response.). negative: Oriented x3, Facial droop Conclusion/Plan - Problem List (1) Altered mental status Conclusion/Plan: This is the patient's 5th admission this year for altered mental status. Her AMS is most likely caused by opioid misuse/overuse as she does not allow anyone to manage her medications. This has been a frequent recurrence. Another possibility would be UTI. Plan: Qualifiers: Altered mental status type: unspecified Qualified Code(s): R41.82 - Altered mental status, unspecified (2) UTI (urinary tract infection) Conclusion/Plan: Based on her positive urinalysis and elevated WBC, she it is suspected that she is having another recurrence of urinary tract infection. Will start her on Rocephin PO tonight and continue to monitor and trend her WBC and vitals. Qualifiers: Urinary tract infection type: acute cystitis Hematuria presence: without hematuria Qualified Code(s): N30.00 - Acute cystitis without hematuria (3) Hypoglycemia Conclusion/Plan: This most likely due to her poor PO intake. Her states she has not been eating well since she was discharged from the rehab center 1.5 weeks ago. Will continue to monitor blood glucose and encourage PO intake as able. (4) VICKIE (acute kidney injury) Conclusion/Plan: Based on previous admissions for VICKIE, elevated creatinine, lactate, and history of decreased PO intake. It appears that she is dehydrated. Plan: continue to give her IV maintenance fluid, encourage PO intake as able, check BMP and monitor creatinine. Avoid nephrotoxic agents. (5) Hypertension Conclusion/Plan: Continue her amlodipine and metoprolol PO. (6) Diabetes mellitus type 2, diet-controlled Conclusion/Plan: She is not currently on any home medications. Her glucose is low at the time of admission. Will continue to monitor glucose level. No medication for diabetes at this time. (7) At risk for accident in home Conclusion/Plan: with behavior associated with misuse of meds. Social work to sit with her and family. - Lab Results Lab results reviewed: Yes Fish Bones: 03/13/20 12:40 03/13/20 12:40 - Diagnostic Imaging Results Diagnostic Imaging Results: positive: Final report reviewed Core Measures - Anticipated LOS I expect patient to be DC'd or transferred within 96 hours.: Yes - DVT/VTE - Prophylaxis VTE/DVT Device ordered at admit?: Yes
[2020-03-13] MEDS: oxyCODONE 5 MG TABLET PO PRN (17:45)
--- NOTE | 2020-03-13 17:48 | PHARMACY PROGRESS NOTE ---
- Best Possible Medication History Admit Date and Time: 03/13/20 9814 Processed by: Pharmacy Medication History completed: Yes Patient Interview: Pt unable to participate Secondary Source(s): Physician records, Pharmacy records, Insurance records, Previous admit records As the person ultimately responsible for medication therapy, providers are able to order a medication from an existing home medication list in [facility] via the "Reconcile Routine" prior to Confirmation of that medication by postal support employee. Such practice is discouraged except when the physician, in their clinical judgment, deems that a medical need exists for a medication without regard to previous use.
[2020-03-14] MEDS: SODIUM CHLORIDE FLUSH 0.9% 10 ML SYRINGE IVP SCH ×3 (00:09→16:06)
[2020-03-14] MEDS: LACTATED RINGERS 1,000 ML IV SCH ×2 (02:25→15:02)
[2020-03-14] MEDS ORDERED: ZINC OXIDE 20% OINT 30 GM TUBE TOP PRN (02:28)
[2020-03-14] MEDS ORDERED: MIN OIL/DIMETHICON/COCONUT OIL 92 GM TUBE TOP PRN (02:28)
[2020-03-14] MEDS: LEVOTHYROXINE 25 MCG TABLET PO SCH (05:57)
[2020-03-14 06:01] LABS: BASOPHILS % (AUTO) 0.3 %; EOSINOPHILS # (AUTO) 0.4 10^3/uL (0.0-0.7); EOSINOPHILS % (AUTO) 4.1 %; HGB - HEMOGLOBIN 10.3 g/dL (12.0-16.0); LYMPHOCYTES # (AUTO) 1.2 10^3/uL (1.5-3.5); LYMPHOCYTES % (AUTO) 12.9 %; MEAN CORPUSCULAR HEMOGLOBIN 28.3 pg (27.0-31.0); MEAN CORPUSCULAR HGB CONC 30.7 g/dL (32.0-36.0); MEAN CORPUSCULAR VOLUME 92.3 fL (81.0-99.0); MEAN PLATELET VOLUME 10.3 fL (7.9-10.8); MONOCYTES # (AUTO) 0.8 10^3/uL (0.0-1.0); MONOCYTES % (AUTO) 8.6 %; NEUTROPHILS # (AUTO) 6.8 10^3/uL (1.5-6.6); NEUTROPHILS % (AUTO) 73.8 %; PLT - PLATELET COUNT 417 10^3/uL (130-450); RED BLOOD COUNT 3.64 10^6/uL (4.20-5.40); RED CELL DISTRIBUTION WIDTH 15.4 % (12.0-15.0); WHITE BLOOD COUNT 9.2 x10^3/uL (4.8-10.8)
[2020-03-14 06:11] LABS: CALCIUM 9.2 mg/dL (8.5-10.3); CREATININE 2.9 mg/dL (0.4-1.0)
[2020-03-14] MEDS: ENOXAPARIN 40 MG/0.4 ML SYRINGE SUBQ SCH (09:00)
[2020-03-14] MEDS: oxyCODONE 5 MG TABLET PO PRN ×3 (09:15→21:20)
[2020-03-14] MEDS: cefTRIAXone 1 GM in SODIUM CHLORIDE 0.9% MINIBAG 100 ML IV SCH (11:13)
[2020-03-14] MEDS: METOPROLOL TARTRATE 50 MG TABLET PO SCH ×2 (11:59→20:40)
--- NOTE | 2020-03-14 14:01 | PROVIDER PROGRESS NOTE ---
Subjective - Prog Note Date Prog Note Date: 03/14/20 Prog Note Time: 09:30 - Subjective Pt reports feeling: Improved Subjective: Patient is feeling more alert and clear today. She is more awake and does not feel like "a mess" like she was yesterday. She reports still feeling a little off and confused but is more coherent. Although, she is still having some trouble getting her words out and feels frustrated about that. She denies feeling ill, or having chills or fever. No shortness of breath or chest pain. Denies having any GI or symptoms. We had a long discussion regarding her self and goals of care. Initially, she tells me she has been drinking 5-6 cans of sparking water a day. However, she then admits to not drinking or eating the last few days and that she does not feel motivated to get up and move around. She says this may be because she feels depressed to get up and do anything. She did mention that she would be more prone to getting out of bed to the living room if there is a TV there or if she could paint. Patient tells me her also does not take care of himself well and does not eat or drink much either, thus, she does the same. She would like to speak with social work to see if she can get more assistance at home. Perhaps longer caregiver hours. Objective - Vital Signs/Intake & Output Reviewed Vital Signs: Yes Vital Signs: Vital Signs x48h Temp Pulse Resp BP Pulse Ox 03/14/20 10:50 59 L 119/53 L 03/14/20 10:19 62 136/55 H 03/14/20 09:00 65 121/42 L 03/14/20 07:53 36.8 C 78 16 137/47 H 96 Intake & Output: Intake & Output 03/11/20 03/12/20 03/13/20 03/14/20 23:59 23:59 23:59 23:59 Intake Total 1120 2911.667 Output Total 600 1300 Balance 520 1611.667 - Objective General Appearance: positive: No acute distress, Alert, Other (She is awake and holding up a conversation well. She does not appear in any distress.) Eyes Bilateral: positive: Normal inspection, PERRL, EOMI, No lid inflammation, Conjunctivae nml, No scleral icterus ENT: positive: ENT inspection nml, Pharynx nml. negative: No signs of dehydration, Purulent nasal drainage, Pharyngeal erythema, Oral lesions, Dry mucous membranes Neck: positive: Nml inspection, Thyroid nml, Trachea midline, Other (Unable to assess for JVD due to body habitus). negative: Thyromegaly, Stiff neck, Tracheal deviation Respiratory: positive: Chest non-tender, No respiratory distress, Breath sounds nml. negative: Wheezes, Rales, Rhonchi Cardiovascular: positive: Regular rate & rhythm. negative: No murmur, No gallop, Tachycardia, Bradycardia, PMI displaced laterally, Systolic murmur, Diastolic murmur, Gallop/S3, Gallop/S4, Friction rub, Decreased pulse(s) Peripheral Pulses: 2+ Radial (R), 2+ Radial (L), 2+ Dorsalis pedis (R), 2+ Dorsalis pedis (L), 2+ Posterior tibialis (R), 2+ Posterior tibialis (L) Abdomen: positive: Non-tender, Nml bowel sounds, No distention. negative: Tenderness, Guarding, Rebound, Bruit Skin: positive: Color nml, Warm, Dry, Skin rash, Other. negative: Cyanosis, Diaphoresis, Pallor, Decubitus (She has a dry, flakey, patchy rash on her LLE by her tavares.) Extremities: positive: Non-tender, Nml appearance, Pedal edema (+1 bilateraly pitting edema noted.). negative: Calf tenderness, Joint swelling Neurologic/Psychiatric: positive: Oriented x3, Motor nml, Sensation nml, Mood/affect nml, Weakness (5/5 UE strength bilaterally and 4/5 LE bilaterally.), Other (She is having trouble with trying to find her words. She says this happen s everytime she comes into the hospital or whenever she feels "goofy"). negative: Facial droop - Lab Results Fish Bones: 03/14/20 05:15 03/14/20 05:15 Other Labs: Lab Results x24hrs 03/14/20 03/14/20 03/13/20 Range/Units 05:15 05:15 16:13 WBC 9.2 (4.8-10.8) x10^3/uL RBC 3.64 L (4.20-5.40) 10^6/uL Hgb 10.3 L (12.0-16.0) g/dL Hct 33.6 L (37.0-47.0) % MCV 92.3 (81.0-99.0) fL MCH 28.3 (27.0-31.0) pg MCHC 30.7 L (32.0-36.0) g/dL RDW 15.4 H (12.0-15.0) % Plt Count 417 (130-450) 10^3/uL MPV 10.3 (7.9-10.8) fL Neut # (Auto) 6.8 H (1.5-6.6) 10^3/uL Lymph # (Auto) 1.2 L (1.5-3.5) 10^3/uL [place] # (Auto) 0.8 (0.0-1.0) 10^3/uL Eos # (Auto) 0.4 (0.0-0.7) 10^3/uL Baso # (Auto) 0.0 (0.0-0.1) 10^3/uL Absolute Nucleated RBC 0.00 x10^3/uL Nucleated RBC % 0.0 /100WBC Sodium 140 (135-145) mmol/L Potassium 3.9 (3.5-5.0) mmol/L Chloride 109 (101-111) mmol/L Carbon Dioxide 21 (21-32) mmol/L Anion Gap 10.0 (6-13) BUN 30 H (6-20) mg/dL Creatinine 2.9 H (0.4-1.0) mg/dL Estimated GFR (MDRD) 16 L (>89) Glucose 87 (70-100) mg/dL Lactic Acid 1.2 (0.5-2.2) mmol/L Calcium 9.2 (8.5-10.3) mg/dL - Diagnostic Imaging Diagnostic Imaging Results: positive: Other (No diagnostics to review) ABX Reporting Has patient been on IV antibiotics over the past 48 hours?: No Assessment/Plan - Problem List (1) Altered mental status Impression: (1) Altered mental status Conclusion/Plan: Her altered mental status may be multifactorial: dehydration, urinary tract in fection, and misuse/overuse of opiates. Her mental status has improved dramatically today than yesterday. She is able to stay awake and hold a conversation. Alert and oriented x 3. Her creatinine is downtrending to 2.9 from 3.7. Plan: Continue IV NS maintenance fluid, encourage PO fluid intake. Will give her 5mg of PO oxygen Q4 hours and no morphine and monitor her pain level. Per her PCP Dr. Bustos's recent note, his plan is to discontinue her morphine and oxycotin and refer her to a pain clinic for suboxone as she has been admitted to the hospital with somnolence and altered mental status most likely from opiate overuse. Qualifiers: Altered mental status type: unspecified Qualified Code(s): R41.82 - Altered mental status, unspecified (2) UTI (urinary tract infection) Conclusion/Plan: Based on her positive urinalysis and elevated WBC, she it is suspected that she is having another recurrence of urinary tract infection. Will start her on IV ceftriaxone today and continue to trend her WBC. Qualifiers: Urinary tract infection type: acute cystitis Hematuria presence: without hematuria Qualified Code(s): N30.00 - Acute cystitis without hematuria (3) Hypoglycemia Conclusion/Plan: This has been resolved since she is now eating. Spoke with patient about increasing her nutritional intake at home. She expresses not liking the food from "[employer] Wheels" but will try her best to eat. She admits to needing more motivation and reminder to push her to eat. (4) VICKIE (acute kidney injury) Conclusion/Plan: This is most likely due to dehydration from the lack of PO intake. Her creatinine has improved overnight. Plan: continue to give her IV NS maintenance fluid, encourage PO intake as able, check BMP and monitor creatinine. Avoid nephrotoxic agents. (5) Hypertension Conclusion/Plan: Continue her amlodipine. Metoprolol was held this morning because of heart rate <60. Will resume tonight if her heart rate is >60. (6) Diabetes mellitus type 2, diet-controlled Conclusion/Plan: She is not currently on any home medications. Her glucose is low at the time of admission. Will continue to monitor glucose level. No medication for diabetes at this time. (7) At risk for accident in home Conclusion/Plan: with behavior associated with misuse of meds. Social work to sit with her and family to devise a long-term plan and to help her avoid being readmitted to the hospital. Qualifiers: Altered mental status type: unspecified Qualified Code(s): R41.82 - Altered mental status, unspecified (2) UTI (urinary tract infection) Qualifiers: Urinary tract infection type: acute cystitis Hematuria presence: without hematuria Qualified Code(s): N30.00 - Acute cystitis without hematuria Medications/Allergies - Medications Active Medication List: Active Medications Acetaminophen (Tylenol) 650 mg PO Q4HR PRN PRN Reason: Pain 1 to 4 Enoxaparin Sodium (Lovenox) 40 mg SUBQ DAILY [facility] Last Admin: 03/14/20 09:00 Dose: 40 mg Documented by: Lactated Ringer's (Lr) 1,000 mls @ 100 mls/hr IV .Q10H [facility] Last Infusion: 03/14/20 12:08 Dose: 100 mls/hr Documented by: Ceftriaxone Sodium 1 gm/ (Sodium Chloride) 100 mls @ 200 mls/hr IV DAILY [facility] Last Infusion: 03/14/20 11:46 Dose: Infused Documented by: Levothyroxine Sodium (Synthroid) 50 mcg PO QDAC [facility] Last Admin: 03/14/20 05:57 Dose: 50 mcg Documented by: Metoprolol Tartrate (Lopressor) 50 mg PO BID [facility] Mineral Oil (Cavilon) 1 applic TOP PRN PRN PRN Reason: Skin Care Last Admin: 03/14/20 05:45 Dose: 1 applic Documented by: Multi-Ingredient Ointment (Zinc Oxide) 1 applic TOP PRN PRN PRN Reason: Skin Care Last Admin: 03/14/20 05:45 Dose: 1 applic Documented by: Ondansetron HCl (Zofran Odt) 4 mg TL Q6HR PRN PRN Reason: Nausea / Vomiting Ondansetron HCl (Zofran Inj) 4 mg IVP Q6HR PRN PRN Reason: Nausea / Vomiting Oxycodone HCl (Roxicodone) 5 mg PO Q4HR PRN PRN Reason: Pain 5 to 7 Last Admin: 03/14/20 09:15 Dose: 5 mg Documented by: Sodium Chloride (Normal Saline Flush 0.9%) 10 ml IVP PRN PRN PRN Reason: NEEDED PER PROVIDER ORDERS Sodium Chloride (Normal Saline Flush 0.9%) 10 ml IVP 0100,0900,1700 [facility] Last Admin: 03/14/20 08:54 Dose: Not Given Documented by: Omeprazole 20 mg PO QDAC 11/15/19 Cimetidine 400 mg PO BID PRN 11/26/19 Estrogens, Conjugated Cream [Premarin Cream] 0.5 gm VG QPM 02/02/20 Amlodipine Besylate [Norvasc] 10 mg PO DAILY 03/13/20 Gabapentin [Neurontin] 100 mg PO 0800,1400 03/13/20 Gabapentin [Neurontin] 500 mg PO QPM 03/13/20 Nitrofurantoin [Macrobid] 100 mg PO DAILY 03/13/20 Ondansetron [Ondansetron Odt] 8 mg PO BID PRN 03/13/20 - Allergies Allergies/Adverse Reactions: Allergies Allergy/AdvReac Type Severity Reaction Status Date / Time NSAIDS (Non-Steroidal Allergy Mild Hives Verified 02/01/20 16:30 Anti-Inflamma lisinopril Allergy Unknown Verified 02/01/20 16:30 Sulfa (Sulfonamide AdvReac Mild Rash Verified 02/01/20 16:30 Antibiotics)
[2020-03-15] MEDS: LACTATED RINGERS 1,000 ML IV SCH ×2 (00:44→08:30)
[2020-03-15] MEDS: SODIUM CHLORIDE FLUSH 0.9% 10 ML SYRINGE IVP SCH ×2 (00:45→08:32)
[2020-03-15] MEDS: oxyCODONE 5 MG TABLET PO PRN ×2 (03:52→12:22)
[2020-03-15 05:22] LABS: BASOPHILS % (AUTO) 0.3 %; EOSINOPHILS # (AUTO) 0.3 10^3/uL (0.0-0.7); EOSINOPHILS % (AUTO) 3.5 %; HGB - HEMOGLOBIN 10.7 g/dL (12.0-16.0); LYMPHOCYTES # (AUTO) 1.1 10^3/uL (1.5-3.5); LYMPHOCYTES % (AUTO) 12.6 %; MEAN CORPUSCULAR HEMOGLOBIN 28.2 pg (27.0-31.0); MEAN PLATELET VOLUME 9.6 fL (7.9-10.8); MONOCYTES # (AUTO) 0.7 10^3/uL (0.0-1.0); MONOCYTES % (AUTO) 8.2 %; NEUTROPHILS # (AUTO) 6.7 10^3/uL (1.5-6.6); NEUTROPHILS % (AUTO) 75.1 %; PLT - PLATELET COUNT 430 10^3/uL (130-450); RED BLOOD COUNT 3.79 10^6/uL (4.20-5.40); RED CELL DISTRIBUTION WIDTH 15.3 % (12.0-15.0); WHITE BLOOD COUNT 8.9 x10^3/uL (4.8-10.8)
[2020-03-15 05:30] LABS: CALCIUM 9.7 mg/dL (8.5-10.3); CREATININE 2.4 mg/dL (0.4-1.0)
[2020-03-15] MEDS: LEVOTHYROXINE 25 MCG TABLET PO SCH (06:16)
[2020-03-15] MEDS: cefTRIAXone 1 GM in SODIUM CHLORIDE 0.9% MINIBAG 100 ML IV SCH (08:30)
[2020-03-15] MEDS: ENOXAPARIN 40 MG/0.4 ML SYRINGE SUBQ SCH ×2 (08:32→08:40)
[2020-03-15] MEDS: METOPROLOL TARTRATE 50 MG TABLET PO SCH (08:40)
--- NOTE | 2020-03-15 08:53 | PROVIDER PROGRESS NOTE ---
Subjective - Prog Note Date Prog Note Date: 03/15/20 Prog Note Time: 08:30 - Subjective Pt reports feeling: Improved Subjective: Patient reports not sleeping well last night but feels a lot less foggy today. She She says she is motivated to go home and take care of herself. She would like to go home and take care of her plants, cats, and fish before this weekend. She agrees to taking more responsibility in her own care and said she will be making her own breakfast and getting out of bed daily. Patient mentions being worried about being off of her pain medication. Discussed with patient regarding her pain medication regimen and that she would need to follow up with Dr. Romano regarding referral to pain clinic. Objective - Vital Signs/Intake & Output Reviewed Vital Signs: Yes Intake & Output: Intake & Output 03/12/20 03/13/20 03/14/20 03/15/20 23:59 23:59 23:59 23:59 Intake Total 1120 3760.000 970 Output Total 600 1850 1800 Balance 520 1910.000 -830 - Objective General Appearance: positive: No acute distress, Alert, Other (Overweight female, appears older than stated age sitting comfortably in chair.) Eyes Bilateral: positive: Normal inspection, PERRL, EOMI, No lid inflammation, Conjunctivae nml, No scleral icterus ENT: positive: ENT inspection nml, Pharynx nml, No signs of dehydration. negative: Purulent nasal drainage, Pharyngeal erythema, Dry mucous membranes Neck: positive: Nml inspection, Thyroid nml, Trachea midline, Other (unable to assess JVD due to body habitus.). negative: Thyromegaly, Lymphadenopathy (R), Lymphadenopathy (L), Stiff neck, Swelling/bruising, Tracheal deviation Respiratory: positive: Chest non-tender, No respiratory distress, Breath sounds nml, Other (rate regular and unlabored.). negative: Wheezes, Rales, Rhonchi Cardiovascular: positive: Regular rate & rhythm. negative: No murmur, No gallop, Irregularly irregular, Tachycardia, Bradycardia, PMI displaced laterally, Systolic murmur, Diastolic murmur, Gallop/S3, Gallop/S4, Decreased pulse(s), Crepitus Peripheral Pulses: 2+ Radial (R), 2+ Radial (L), 2+ Dorsalis pedis (R), 2+ Dorsalis pedis (L), 2+ Posterior tibialis (R), 2+ Posterior tibialis (L) Abdomen: positive: Non-tender, Nml bowel sounds, No distention, Other (unable to assess for organomegaly due to protuberant abdomen). negative: Tenderness, Guarding, Rebound, Bruit Skin: positive: Color nml, Warm, Dry, Skin rash (Dry, flaky, patchy rash noted on LLE--present at admission.). negative: Cyanosis, Diaphoresis, Pallor Extremities: positive: Non-tender, Nml appearance, Pedal edema (+1 pitting edema. Improved from yesterday.). negative: Calf tenderness Neurologic/Psychiatric: positive: Oriented x3, Motor nml, Sensation nml, Mood/affect nml, Weakness. negative: Facial droop, Slurred/abnml speech, Depressed mood/affect - Lab Results Fish Bones: 03/15/20 05:15 03/15/20 05:15 Other Labs: Lab Results x24hrs 03/15/20 03/15/20 Range/Units 05:15 05:15 WBC 8.9 (4.8-10.8) x10^3/uL RBC 3.79 L (4.20-5.40) 10^6/uL Hgb 10.7 L (12.0-16.0) g/dL Hct 34.5 L (37.0-47.0) % MCV 91.0 (81.0-99.0) fL MCH 28.2 (27.0-31.0) pg MCHC 31.0 L (32.0-36.0) g/dL RDW 15.3 H (12.0-15.0) % Plt Count 430 (130-450) 10^3/uL MPV 9.6 (7.9-10.8) fL Neut # (Auto) 6.7 H (1.5-6.6) 10^3/uL Lymph # (Auto) 1.1 L (1.5-3.5) 10^3/uL [place] # (Auto) 0.7 (0.0-1.0) 10^3/uL Eos # (Auto) 0.3 (0.0-0.7) 10^3/uL Baso # (Auto) 0.0 (0.0-0.1) 10^3/uL Absolute Nucleated RBC 0.00 x10^3/uL Nucleated RBC % 0.0 /100WBC Sodium 139 (135-145) mmol/L Potassium 3.8 (3.5-5.0) mmol/L Chloride 106 (101-111) mmol/L Carbon Dioxide 21 (21-32) mmol/L Anion Gap 12.0 (6-13) BUN 25 H (6-20) mg/dL Creatinine 2.4 H (0.4-1.0) mg/dL Estimated GFR (MDRD) 20 L (>89) Glucose 109 H (70-100) mg/dL Calcium 9.7 (8.5-10.3) mg/dL - Diagnostic Imaging Diagnostic Imaging Results: positive: Other (No diagnostics to review) ABX Reporting Has patient been on IV antibiotics over the past 48 hours?: Yes Assessment/Plan - Problem List (1) Altered mental status Impression: She presented to the ED with altered mental status and confusion on 03/13/20. This was most likely secondary to UTI, dehydration, malnutrition, and VICKIE. IV NS maintenance fluids was started and her creatinine has been downtrending since. IV Rocephin was started yesterday for positive urinalysis and elevated WBC. Patient's altered mental status is now resolved. She is alert and oriented x3. She endorses feeling less confused but have trouble with short-term memories which is baseline for her. She continues to be doing well with PO fluid and solid intake. Patient is stable and can be discharge home today. Qualifiers: Altered mental status type: unspecified Qualified Code(s): R41.82 - Altered mental status, unspecified (2) UTI (urinary tract infection) Impression: Patient's urinalysis was positive on 03/13/20 with an mild elevation of her WBC. She was started on IV Rocephin yesterday for broad-spectrum coverage. Her WBC is down to 9 today. Urine culture result is back and is positive for enterococcus faecalis. Will discontinue her IV Rocephin today and start her on a one time dose PO fosfomycin. Qualifiers: Urinary tract infection type: acute cystitis Hematuria presence: without he maturia Qualified Code(s): N30.00 - Acute cystitis without hematuria (3) Hypoglycemia Impression: She is presented to the ED with a blood glucose of 69. This has now been resolved since increasing her PO nutritional intake. (4) VICKIE (acute kidney injury) Impression: Her creatinine was 03/13/20 on admission was 3.7. Her baseline i1.3-1.5. Today, her creatinine is 2.4. Her VICKIE is likely due to dehydration. Plan is for patient to increase her PO fluid intake at home. (5) Hypertension Impression: Blood pressure has been slightly elevated with systolic in the 130 and highest 150s. She may restart her home dose amlodipine and metoprolol. Qualifiers: Hypertension type: essential hypertension Qualified Code(s): I10 - Essential (primary) hypertension (6) Diabetes mellitus type 2, diet-controlled Impression: Her diabetes is diet controlled. Blood sugars have been within normal range. Medications/Allergies - Medications Active Medication List: Active Medications Acetaminophen (Tylenol) 650 mg PO Q4HR PRN PRN Reason: Pain 1 to 4 Enoxaparin Sodium (Lovenox) 40 mg SUBQ DAILY [facility] Last Admin: 03/15/20 08:40 Dose: 40 mg Documented by: Levothyroxine Sodium (Synthroid) 50 mcg PO QDAC [facility] Last Admin: 03/15/20 06:16 Dose: 50 mcg Documented by: Metoprolol Tartrate (Lopressor) 50 mg PO BID [facility] Last Admin: 03/15/20 08:40 Dose: 50 mg Documented by: Mineral Oil (Cavilon) 1 applic TOP PRN PRN PRN Reason: Skin Care Last Admin: 03/14/20 05:45 Dose: 1 applic Documented by: Multi-Ingredient Ointment (Zinc Oxide) 1 applic TOP PRN PRN PRN Reason: Skin Care Last Admin: 03/14/20 05:45 Dose: 1 applic Documented by: Ondansetron HCl (Zofran Odt) 4 mg TL Q6HR PRN PRN Reason: Nausea / Vomiting Ondansetron HCl (Zofran Inj) 4 mg IVP Q6HR PRN PRN Reason: Nausea / Vomiting Oxycodone HCl (Roxicodone) 5 mg PO Q4HR PRN PRN Reason: Pain 5 to 7 Last Admin: 03/15/20 03:52 Dose: 5 mg Documented by: Sodium Chloride (Normal Saline Flush 0.9%) 10 ml IVP PRN PRN PRN Reason: NEEDED PER PROVIDER ORDERS Sodium Chloride (Normal Saline Flush 0.9%) 10 ml IVP 0100,0900,1700 JARETT Last Admin: 03/15/20 08:32 Dose: Not Given Documented by: Omeprazole 20 mg PO QDAC 11/15/19 Cimetidine 400 mg PO BID PRN 11/26/19 Estrogens, Conjugated Cream [Premarin Cream] 0.5 gm VG QPM 02/02/20 Amlodipine Besylate [Norvasc] 10 mg PO DAILY 03/13/20 Gabapentin [Neurontin] 100 mg PO 0800,1400 03/13/20 Gabapentin [Neurontin] 500 mg PO QPM 03/13/20 Nitrofurantoin [Macrobid] 100 mg PO DAILY 03/13/20 Ondansetron [Ondansetron Odt] 8 mg PO BID PRN 03/13/20 - Allergies Allergies/Adverse Reactions: Allergies Allergy/AdvReac Type Severity Reaction Status Date / Time NSAIDS (Non-Steroidal Allergy Mild Hives Verified 02/01/20 16:30 Anti-Inflamma lisinopril Allergy Unknown Verified 02/01/20 16:30 Sulfa (Sulfonamide AdvReac Mild Rash Verified 02/01/20 16:30 Antibiotics)
[2020-03-15] MEDS ORDERED: FOSFOMYCIN TROMETHAMINE 3 GM PACKET PO ONE (08:54)
--- NOTE | 2020-03-15 11:13 | Discharge Plan ---
Discharge Plan Problem Reviewed?: Yes Disposition: 06 Home Health Service Condition: Good Diet: Regular Activity Restrictions: Activity as Tolerated Shower Restrictions: Yes (only with caregiver present) Driving Restrictions: Yes (no driving) Assistance Devices: Wheelchair, Walker Health Concerns: You presented to our emergency room via ambulance with another episode of confusion. For a long time we have thought that you are mismanaging your medications. You were taking way too many sedating medications and were accidentally overdosing on your long-acting morphine. You had an admission in August 2018, July 2019, November 2019 (twice), February 2020 and now March 2020. Each of them is associated with dehydration, severely altered orientation because of the drugs you are taking, and sometimes a urinary tract infection. Your doctor is already starting to taper you off of some of your medicines. Your morphine has been cut in half. We believe it is the goal to have you off long-acting morphine and you have been referred to a clinic for Suboxone use. With this admission you had just been discharged from a snf facility for rehab. You had only been home a week and a half. You are not eating or drinking and just sitting in your chair. You went into renal failure, developed another urinary tract infection. You have recovered with IV fluids and antibiotics. Plan of Treatment: 1. tent worker sat down with you at length to discuss what your home life is like. You already have caregivers, your has his own illnesses and caregivers, and they are in the process of exploring adding hours. 2. I will be referring home health to see you in your house with regards to physical therapy and improving her strength 3. You must focus on making sure you eat meals on a regular basis. And you must drink at least 1 L of liquid a day. In the form of water or tea. Not bubbly water. 4. Follow-up with your primary care provider in the next week or 2. 5. Make sure you follow-up with the Suboxone clinic in [place]. Care Goals: To remain at home for as long as possible. If not start making plans for permanent placement if you cannot stay at home. Assessment: Care goals discussed with patient. She states she will try and follow through and hopes to have help getting to those goals. Follow-Up Care: Home Health - RN, Home Health - PT, Home Health - OT No Smoking: If you smoke, Please STOP! Call for help.
[2020-03-15 12:39] VITALS: BP 155/67
--- NOTE | 2020-03-15 18:04 | DISCHARGE SUMMARY ---
Discharge Summary Admit Date: 03/13/20 Discharge Date: 03/15/20 Discharging Provider: Christel Merritt MD Primary Care Provider: Fadi Bustos MD Code Status: Attempt Resuscitation Condition at Discharge: Good Discharge Disposition: Home Health Service - DIAGNOSES Discharge Diagnoses with Status of Each Condition: 1. Metabolic encephalopathy 2. Enterococcus UTI 3. Hypoglycemia 4. Acute kidney injury 5. Dehydration 6. Hypertension 7. Type 2 diabetes mellitus, diet controlled 8. Noncompliance with medical regimen 9. Opioid abuse 10. Chronic pain syndrome - HPI History of Present Illness: Patient is a 69-year-old female with a history of diabetes, hypertension, hyperlipidemia, anxiety, bipolar, chronic bladder infections who has unfortunately been admitted to our hospitalist service several times in the last few months for confusion and acute kidney injury. She presents to the emergency department today via EMS for worsening confusion per her Edward. Patient was found to be somnolent this morning and increasingly "goofy" and confused by her this morning. He said she has been intermittently confused this past few days but her mental status has gotten "very bad" today prompting him to call 911. She was noted to be hypoglycemic by EMS. Her blood glucose was 69. She was given two glucose tablets before coming to the ED. Her blood sugar is now normal at 136. Upon arriving to the ED, she was afebrile, normotensive, and oxygenating well on room air. Her lab results are significant for a creatinine level of 3.2, lactate 2.2, and AG of 20. She is baseline at 1.3-1.5. Patient is confused, somnolent but arousable to voice. GCS score is 13. She is oriented to self and place only. Patient is not able to tell me why she was here and what happened today before coming to the hospital. She is only able to answer some questions appropriately and perseverates on certain words and thoughts. She appears to be very emotional and upset at one point and expresses frustration in her current situation. She reports not feeling well this morning and denies mistaking her medications at home. Though she could not tell me how she has been taking them. She denies having fever, chills. But states she has not been feeling well. No dyspnea, cough, chest pain, palpitations. Denies nausea/vomiting or abdominal pain, melena/hematochezia. She admits to not having an appetite. No urinary frequency or urgency, dysuria or hematuria. She has baseline tremors and twitches. She cannot tell me if she feels weaker than usual. She is having a lot of trouble answering questions and intermittently falling asleep. Her Edward was not at the bedside but was called to gather more informati on. Edward states the patient has not been eating or drinking fluid since she has been discharge from a rehab center from [place] a week in a half ago. He tells me patient is normally very coherent, cheerful, even "sassy" and can make her doctors appointment on her own. Though she is unable to physically care for herself due to sciatica and chronic back pain. She has been bedridden and sedentary for the past few years requiring caregivers visits daily. He himself suffered a stroke a couple of years ago and cannot care for her either. He reports not being able to manage her medication and that she manages them herself with a mobilize dispenser. He is unsure of how she takes her morphine, oxycotin, or lorazepam. She is very protective of her pain medication and does not allow anyone to manage it for her. Edward mentions her PCP recently lowered her morphine dose. However, he is uncertain why that change was made. He expresses concern for her frequent mental status change this year and attributes this to UTI. Patient will be admitted to the medical unit for close monitoring overnight. - Past Medical History Cardiovascular: reports: Hypertension, High cholesterol, Deep vein thrombosis, Murmur Respiratory: reports: Asthma, COPD, Shortness of breath Neuro: reports: None, Peripheral neuropathy Endocrine/Autoimmune: reports: Type 2 diabetes GI: reports: GERD, Chronic constipation, Pancreatitis : reports: Incontinence, Chronic bladder infection HEENT: reports: None Psych: reports: Anxiety, Bipolar disorder, Other Musculoskeletal: reports: Osteoarthritis, Fatigue, Chronic back pain, Other Derm: reports: Other MRSA Hx?: No - Past Surgical History General: reports: EGD, Colonoscopy Ortho: reports: Knee replacement, Spine 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 Chest x-ray with no acute cardiopulmonary disease 2. Blood cultures without growth 3. Enterococcus faecalis urine culture - HOSPITAL COURSE Hospital Course: This is approximately the 6 admission for this woman for altered mental status, encephalopathy, in association with possible overuse or abuse of opioids, and noncompliance with medical regimen. She just been discharged from a residential facility. This was a week and a half ago. She had been discharged from her last day with us to the residential facility and just got home. It took us a couple of days for her to wake up with IV fluids, and then eventual treatment of UTI. As she became more awake she admitted that she came home and pretty much did not do anything other than sit in a chair. She had no motivation to eat. Really did not drink anything except bubbly sparkling water. With her altered mental status, she was brought to the ER with ambulance. Initially hypoglycemic. She is not on any diabetic medications in spite of her history of diabetes. Her does not take any diabetic medications. She responded with IV hydration, antibiotics, and taking away her medicines. She gradually woke up and went from an obtunded, barely responsive person to quite a loquacious speaker. She was able to fill in some of the gaps of why she got hypoglycemic, and why she was dehydrated. She just really did not eat or drink very much.Antibiotics were changed to a single dose of fosfomycin once final culture came back in her urine.Baseline creatinine is 1.9. She was admitted at 3.7. By the time of discharge she was 2.4. She is encouraged to drink at least 1 L of fluid a day. Not bubbly soda but water. This patient is well-known to social work and case management. Her physician is in the midst of tapering if not completely discontinuing her opiates. She has been referred to a Suboxone clinic in [place]. She states that she is motivated to stay at home. She promises to eat and drink better. She wants to remain at home as long as possible. She already has care providers. A community case manager. A nurse that comes by to fill out her pill packets. As such she is discharged back to home. Temperature 36.8. Pulse 61. Blood pressure 155/67. Respirations 20. 98% on room air. She is 5 feet 3 inches tall and weighs 87 kg. Where she was initially obtunded and lethargic on admission she is now awake, alert, conversational. Neck is supple. Lungs have diminished breath sounds at the bases without any increased respiratory effort, crackles, rhonchi, wheezing PMI is normally placed with a regular rate and rhythm. Her abdomen has an obese pannus. Underneath the pannus or changes of resolved [place] intertrigo. She is able to get up and use a walker to ambulate to the bathroom. However needs standby assist. Occasionally has tremors and je rking movement in her sleep. Mild nonpitting edema of her ankles and feet. Greater than 30 minutes was spent coordinating discharge. - ALLERGIES Allergies/Adverse Reactions: Allergies Allergy/AdvReac Type Severity Reaction Status Date / Time NSAIDS (Non-Steroidal Allergy Mild Hives Verified 02/01/20 16:30 Anti-Inflamma lisinopril Allergy Unknown Verified 02/01/20 16:30 Sulfa (Sulfonamide AdvReac Mild Rash Verified 02/01/20 16:30 Antibiotics) - MEDICATIONS Home Medications: Ambulatory Orders Medication Instructions Recorded Confirmed LORazepam [Ativan] 0.5 mg PO BID PRN #60 tablet 07/17/19 03/13/20 Levothyroxine Sodium 50 mcg PO QDAC #30 07/17/19 03/13/20 [place] Carbonate 300 mg PO DAILY #30 07/17/19 03/13/20 Metoprolol Succinate [Toprol Xl] 50 mg PO DAILY #30 07/17/19 03/13/20 Venlafaxine HCl 75 mg PO BID #60 07/17/19 03/13/20 gemfibroziL [Gemfibrozil] 600 mg PO BID #60 07/17/19 03/13/20 risperiDONE [Risperdal] 1 mg PO QPM #30 07/17/19 03/13/20 Omeprazole 20 mg PO QDAC 11/15/19 03/13/20 Cimetidine 400 mg PO BID PRN 11/26/19 03/13/20 Morphine ER 15 mg PO Q12H PRN #10 tablet 12/07/19 03/13/20 Estrogens, Conjugated Cream 0.5 gm VG QPM 02/02/20 03/13/20 [Premarin Cream] Amlodipine Besylate [Norvasc] 10 mg PO DAILY 03/13/20 03/13/20 Gabapentin [Neurontin] 100 mg PO 0800,1400 03/13/20 03/13/20 Gabapentin [Neurontin] 500 mg PO QPM 03/13/20 03/13/20 Nitrofurantoin [Macrobid] 100 mg PO DAILY 03/13/20 03/13/20 Ondansetron [Ondansetron Odt] 8 mg PO BID PRN 03/13/20 03/13/20 - LABS Result Diagrams: 03/15/20 05:15 03/15/20 05:15
== END 2020-03-15 16:45 | disposition home health service (06) | DRG 917 ==
LOC: EDUNIT# → ED 11:58 → MS2 13:47
PROVIDERS: ADMIT Specialist; ATTEND Specialist
DX: T40.2X1A Poisoning by other opioids, accidental (unintentional), initial encounter (principal); G92 Toxic encephalopathy; N17.9 Acute kidney failure, unspecified; N30.00 Acute cystitis without hematuria; B95.2 Enterococcus as the cause of diseases classified elsewhere; Y92.009 Unspecified place in unspecified non-institutional (private) residence as the place of occurrence of the external cause; R41.82 Altered mental status, unspecified; E11.649 Type 2 diabetes mellitus with hypoglycemia without coma; E86.0 Dehydration; E11.42 Type 2 diabetes mellitus with diabetic polyneuropathy; F11.10 Opioid abuse, uncomplicated; I10 Essential (primary) hypertension; J44.9 Chronic obstructive pulmonary disease, unspecified; G89.4 Chronic pain syndrome; M54.30 Sciatica, unspecified side; E78.5 Hyperlipidemia, unspecified; M54.9 Dorsalgia, unspecified; F41.9 Anxiety disorder, unspecified; F31.9 Bipolar disorder, unspecified; R32 Unspecified urinary incontinence; R53.83 Other fatigue; M19.90 Unspecified osteoarthritis, unspecified site; Z96.659 Presence of unspecified artificial knee joint; Z74.09 Other reduced mobility; Z79.899 Other long term (current) drug therapy; Z91.19 Patient's noncompliance with other medical treatment and regimen; Z86.718 Personal history of other venous thrombosis and embolism; Z72.89 Other problems related to lifestyle; Z87.891 Personal history of nicotine dependence; Z20.828 Contact with and (suspected) exposure to other viral communicable diseases
CPT/HCPCS: 36415; 51701; 71045; 80048; 80053; 81001; 83605; 84443; 84484; 85025; 87040; 87077; 87086; 87181; 93005; 97161; 99285; A6250; A9270; J1650; J7120; J8499; U0004; 80306

== ENCOUNTER 2020-04-03 14:13 | Outpatient (CLI) | payer MEDICARE, MEDICAID ==
--- NOTE | 2020-04-03 15:22 | XRAY Report ---
PROCEDURE: Chest 2 View X-Ray INDICATIONS: COUGH TECHNIQUE: 2 view(s) of the chest. COMPARISON: None. FINDINGS: Surgical changes and devices: None. Lungs and pleura: No pleural effusions or pneumothorax. Lungs are clear. Mediastinum: Mediastinal contours are normal. Heart size is normal. Bones and chest wall: No suspicious bony abnormalities. Soft tissues appear unremarkable. IMPRESSION: No acute cardiopulmonary abnormality. Reviewed by: Kwadwo Franco on 04/03/2020 3:20 PM [facility] Approved by: Kwadwo Franco on 04/03/2020 3:20 PM [facility] Station ID: [id number]
== END 2020-04-03 14:14 | disposition home or self-care (01) ==
LOC: DI.S 14:13
PROVIDERS: ATTEND Nurse Practitioner Family
DX: R09.89 Other specified symptoms and signs involving the circulatory and respiratory systems (principal)

== ENCOUNTER 2020-04-22 16:58 | Outpatient (CLI) | payer MEDICARE, MEDICAID | END 2020-04-22 16:59 | disposition EMS.NT | LOC: EMS 16:58 | PROVIDERS: ATTEND Surgery | DX: Z03.89 Encounter for observation for other suspected diseases and conditions ruled out (principal) ==

== ENCOUNTER 2020-07-09 01:31 | Outpatient (CLI) | payer MEDICARE, MEDICAID | END 2020-07-09 01:32 | disposition EMS.NT | LOC: EMS 01:31 | DX: F41.9 Anxiety disorder, unspecified (principal) ==

== ENCOUNTER 2020-07-11 07:00 | Outpatient (CLI) | payer MEDICARE, MEDICAID ==
[2020-07-11 19:58] LABS: CALCIUM 9.5 mg/dL (8.5-10.3); CREATININE 2.1 mg/dL (0.4-1.0); POTASSIUM 4.1 mmol/L (3.5-5.0)
== END 2020-07-11 07:01 | disposition home or self-care (01) ==
LOC: LAB.S 07:00
PROVIDERS: ATTEND Nurse Practitioner Family
DX: R60.0 Localized edema (principal)
CPT/HCPCS: 36415; 80048

== ENCOUNTER 2020-08-14 23:43 | Outpatient (CLI) | payer MEDICARE, MEDICAID | END 2020-08-14 23:44 | disposition critical access hospital (66) | LOC: EMS 23:43 | DX: R41.82 Altered mental status, unspecified (principal) | CPT/HCPCS: A0425; A0429 ==

== ENCOUNTER 2020-08-15 00:16 | Inpatient (IN) | payer MEDICARE, MEDICAID ==
[2020-08-15] MEDS ORDERED: SODIUM CHLORIDE 0.9% 1,000 ML IV STA (00:50)
[2020-08-15 01:04] LABS: BASOPHILS % (AUTO) 0.4 %; EOSINOPHILS # (AUTO) 0.1 10^3/uL (0.0-0.7); EOSINOPHILS % (AUTO) 0.7 %; HCT - HEMATOCRIT 36.7 % (37.0-47.0); LYMPHOCYTES # (AUTO) 0.6 10^3/uL (1.5-3.5); LYMPHOCYTES % (AUTO) 5.6 %; MEAN CORPUSCULAR HEMOGLOBIN 28.4 pg (27.0-31.0); MEAN CORPUSCULAR VOLUME 94.6 fL (81.0-99.0); MEAN PLATELET VOLUME 9.9 fL (7.9-10.8); MONOCYTES # (AUTO) 0.9 10^3/uL (0.0-1.0); MONOCYTES % (AUTO) 8.7 %; NEUTROPHILS # (AUTO) 8.6 10^3/uL (1.5-6.6); NEUTROPHILS % (AUTO) 84.2 %; PLT - PLATELET COUNT 336 10^3/uL (130-450); RED BLOOD COUNT 3.88 10^6/uL (4.20-5.40); RED CELL DISTRIBUTION WIDTH 16.9 % (12.0-15.0); WHITE BLOOD COUNT 10.2 x10^3/uL (4.8-10.8)
[2020-08-15 01:13] LABS: BILIRUBIN,URINE NEGATIVE (NEGATIVE); GLUCOSE, URINE (UA) NEGATIVE (NEGATIVE); KETONES,URINE (UA) NEGATIVE (NEGATIVE); LEUKOCYTE ESTERASE, URINE LARGE (NEGATIVE); NITRITE,URINE POSITIVE (NEGATIVE); OCCULT BLOOD,URINE SMALL (NEGATIVE); PROTEIN,URINE 30 mg/dL (NEGATIVE); UROBILINOGEN,URINE 0.2 (NORMAL) E.U./dL (NORMAL)
[2020-08-15 01:14] LABS: ALBUMIN 3.1 g/dL (3.2-5.5); ALBUMIN/GLOBULIN RATIO 0.8 (1.0-2.2); ALKALINE PHOSPHATASE 219 IU/L (42-121); ALT ALANINE AMINOTRANSFERASE < 10 IU/L (10-60); AST ASPARTATE AMINOTRANSFERASE 13 IU/L (10-42); BILIRUBIN,TOTAL 0.8 mg/dL (0.2-1.0); BUN - BLOOD UREA NITROGEN 35 mg/dL (6-20); CALCIUM 9.2 mg/dL (8.5-10.3); CARBON DIOXIDE - CO2 20 mmol/L (21-32); CHLORIDE 107 mmol/L (101-111); CREATININE 2.8 mg/dL (0.4-1.0); GFR - MDRD 17 (>89); GLUCOSE 102 mg/dL (70-100); LIPASE 18 U/L (22-51); POTASSIUM 4.4 mmol/L (3.5-5.0); SODIUM 140 mmol/L (135-145)
[2020-08-15 01:16] LABS: CLARITY,URINE CLOUDY (CLEAR)
[2020-08-15 01:17] LABS: BACTERIA,URINE Many /HPF (None Seen); RBC,URINE 0-5 /HPF (0-5); SQUAMOUS EPITHELIAL CELL,UR RARE Squamous (<= Few); WBC,URINE >25 /HPF (0-5)
--- NOTE | 2020-08-15 01:48 | ED Physician Documentation ---
PD HPI ALTERED MENTAL STATUS - Stated complaint Stated Complaint: AMS - Chief complaint Chief Complaint: Neuro - History obtained from History obtained from: EMS - History of Present Illness Timing - onset: How many days ago (2-3) Timing - duration: Days Timing - details: Gradual onset Quality / character: Confused Basline status: Alert and oriented X 3, Ambulatory - Additional information Additional information: BIBA. Patient is confused and thus her answers to HPI and ROS are questionable reliability/accuracy. EMS reports that patient's notes gradually increasing confusion x 2-3 days. No reported injury. She has several admissions to [facility] in 2019 for similar c/o, with some episodes attributed to UTI and others suspected to be related to misuse of medications. Patient has no c/o on my HPI but is confused (thinks is in room at times when he is still at home, falls asleep rapidly and repeatedly during H+P) Review of Systems Unable to obtain: Confused Constitutional: denies: Fever : reports: Incontinent PD PAST MEDICAL HISTORY - Past Medical History Past Medical History: Yes Cardiovascular: Hypertension, High cholesterol, Deep vein thrombosis, Murmur Respiratory: Asthma, COPD, Shortness of breath Neuro: Peripheral neuropathy Endocrine/Autoimmune: Type 2 diabetes GI: GERD, Chronic constipation, Pancreatitis : Incontinence, Chronic bladder infection HEENT: None Psych: Anxiety, Bipolar disorder, Other Musculoskeletal: Osteoarthritis, Fatigue, Chronic back pain, Other Derm: Other - Past Surgical History Past Surgical History: Yes General: EGD, Colonoscopy Ortho: Knee replacement, 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 HEENT: Tonsil/Adenoidectomy - Present Medications Home Medications: Ambulatory Orders Medication Instructions Recorded Confirmed LORazepam [Ativan] 0.5 mg PO BID PRN #60 tablet 07/17/19 08/15/20 Levothyroxine Sodium 50 mcg PO QDAC #30 07/17/19 08/15/20 [place] Carbonate 300 mg PO DAILY #30 07/17/19 08/15/20 Metoprolol Succinate [Toprol Xl] 50 mg PO DAILY #30 07/17/19 08/15/20 Venlafaxine HCl 75 mg PO BID #60 07/17/19 08/15/20 gemfibroziL [Gemfibrozil] 600 mg PO BID #60 07/17/19 08/15/20 risperiDONE [Risperdal] 1 mg PO QPM #30 07/17/19 08/15/20 Omeprazole 20 mg PO QDAC 11/15/19 08/15/20 Cimetidine 400 mg PO BID PRN 11/26/19 08/15/20 Morphine ER [Morphine Sulfate ER] 15 mg PO Q12H PRN #10 tablet 12/07/19 08/15/20 Estrogens, Conjugated Cream 0.5 gm VG QPM 02/02/20 08/15/20 [Premarin Cream] Amlodipine Besylate [Norvasc] 10 mg PO DAILY 03/13/20 08/15/20 Gabapentin [Neurontin] 100 mg PO 0800,1400 03/13/20 08/15/20 Gabapentin [Neurontin] 500 mg PO QPM 03/13/20 08/15/20 Ondansetron [Ondansetron Odt] 8 mg PO BID PRN 03/13/20 08/15/20 - Allergies Allergies/Adverse Reactions: Allergies Allergy/AdvReac Type Severity Reaction Status Date / Time NSAIDS (Non-Steroidal Allergy Mild Hives Verified 08/15/20 01:23 Anti-Inflamma lisinopril Allergy Unknown Verified 08/15/20 01:23 Sulfa (Sulfonamide AdvReac Mild Rash Verified 08/15/20 01:23 Antibiotics) - Social History Does the pt smoke?: Yes Smoking Status: Current every day smoker Does the pt drink ETOH?: No Does the pt have substance abuse?: No - Immunizations Immunizations are current?: Yes Immunizations: TDAP >10years/unknown - POLST Patient has POLST: No POLST Status: Full Code PD ED PE NORMAL - Vitals Vital signs reviewed: Yes - General General: No acute distress (drowsy, awakens to voice but falls asleep repeatedly during H+P. follows simple commands), Well developed/nourished - HEENT HEENT: Atraumatic, PERRL, Other (tacky mucous membranes) - Neck Neck: Supple, no meningeal sign - Cardiac Cardiac: RRR, No murmur - Respiratory Respiratory: No respiratory distress, Clear bilaterally - Abdomen Abdomen: Soft, Non tender - Back Back: No CVA TTP - Derm Derm: Normal color, Warm and dry - Neuro Neuro: No motor deficit, Normal speech PD ED PE EXPANDED - General General: No acute distress, Other (drowsy) - Neuro Neuro: Confused, Other (oriented x 2) Results - Vitals Vitals: Vital Signs - 24 hr 08/15/20 08/15/20 08/15/20 00:14 01:05 01:21 Temperature 37.7 C Heart Rate 65 80 66 Respiratory 14 17 12 Rate Blood Pressure 150/65 H 117/45 L 144/58 H O2 Saturation 96 89 L 100 08/15/20 08/15/20 01:30 02:12 Temperature 37.8 C Heart Rate 61 63 Respiratory 12 10 L Rate Blood Pressure 153/59 H 132/64 H O2 Saturation 98 100 Oxygen O2 Source [Without Activity] Room air O2 Source Nasal cannula Oxygen Flow Rate 2 - Labs Labs: Laboratory Tests 08/15/20 08/15/20 08/15/20 00:45 00:54 00:54 WBC 10.2 RBC 3.88 L Hgb 11.0 L Hct 36.7 L MCV 94.6 MCH 28.4 MCHC 30.0 L RDW 16.9 H Plt Count 336 MPV 9.9 Neut # (Auto) 8.6 H Lymph # (Auto) 0.6 L [place] # (Auto) 0.9 Eos # (Auto) 0.1 Baso # (Auto) 0.0 Absolute Nucleated RBC 0.00 Nucleated RBC % 0.0 Sodium 140 Potassium 4.4 Chloride 107 Carbon Dioxide 20 L Anion Gap 13.0 BUN 35 H Creatinine 2.8 H Estimated GFR (MDRD) 17 L Glucose 102 H Lactic Acid Calcium 9.2 Total Bilirubin 0.8 AST 13 ALT < 10 L Alkaline Phosphatase 219 H B-Natriuretic Peptide Total Protein 7.0 Albumin 3.1 L Globulin 3.9 Albumin/Globulin Ratio 0.8 L Lipase 18 L Urine Color YELLOW Urine Clarity CLOUDY Urine pH 6.0 Ur Specific [place] 1.015 Urine Protein 30 H Urine Glucose (UA) NEGATIVE Urine Ketones NEGATIVE Urine Occult Blood SMALL H Urine Nitrite POSITIVE H Urine Bilirubin NEGATIVE Urine Urobilinogen 0.2 (NORMAL) Ur Leukocyte Esterase LARGE H Urine RBC 0-5 Urine WBC >25 H Ur Squamous Epith Cells RARE Squamous Urine Bacteria Many H Ur Microscopic Review INDICATED Urine Culture Comments INDICATED 08/15/20 08/15/20 00:54 00:54 WBC RBC Hgb Hct MCV MCH MCHC RDW Plt Count MPV Neut # (Auto) Lymph # (Auto) [place] # (Auto) Eos # (Auto) Baso # (Auto) Absolute Nucleated RBC Nucleated RBC % Sodium Potassium Chloride Carbon Dioxide Anion Gap BUN Creatinine Estimated GFR (MDRD) Glucose Lactic Acid 1.4 Calcium Total Bilirubin AST ALT Alkaline Phosphatase B-Natriuretic Peptide 58 Total Protein Albumin Globulin Albumin/Globulin Ratio Lipase Urine Color Urine Clarity Urine pH Ur Specific [place] Urine Protein Urine Glucose (UA) Urine Ketones Urine Occult Blood Urine Nitrite Urine Bilirubin Urine Urobilinogen Ur Leukocyte Esterase Urine RBC Urine WBC Ur Squamous Epith Cells Urine Bacteria Ur Microscopic Review Urine Culture Comments - Rads (name of study) chest xray Radiology: Prelim report reviewed, See rad report PD MEDICAL DECISION MAKING - ED course Complexity details: reviewed old records, reviewed results, re-evaluated patient, considered differential, d/w patient ED course: afebrile and normal WBC. bun/creatinine elevated, comparable to previous results. She is obviously confused and drowsy on my evaluation and urinalysis is c/w UTI; she has had many previous ED visits including several [facility] admission for similar confusion with recurrent urinary tract infections. Given IV rocephin and admitted to hospitalist service Departure - Departure Disposition: 66 [facility] DC/Xfer Clinical Impression: Confusion Urinary tract infection Qualifiers: Urinary tract infection type: acute cystitis Hematuria presence: without hematuria Qualified Code(s): N30.00 - Acute cystitis without hematuria Condition: Good Discharge Date/Time: 08/15/20 03:17
[2020-08-15] MEDS ORDERED: cefTRIAXone 1 GM in SODIUM CHLORIDE 0.9% MINIBAG 100 ML IV STA (02:24)
[2020-08-15] MEDS ORDERED: cefTRIAXone 1 GM VIAL ONE (02:26)
[2020-08-15] MEDS ORDERED: ONDANSETRON ODT 4 MG TABLET TL PRN (02:35)
[2020-08-15] MEDS ORDERED: ONDANSETRON 4 MG/2 ML VIAL IVP PRN (02:35)
[2020-08-15] MEDS ORDERED: SODIUM CHLORIDE FLUSH 0.9% 10 ML SYRINGE IVP PRN (02:35)
[2020-08-15] MEDS ORDERED: oxyCODONE 5 MG TABLET PO PRN (02:35)
--- NOTE | 2020-08-15 02:54 | HISTORY & PHYSICAL EXAMINATION ---
Chief Complaint - Chief Complaint Chief Complaint: confusion History of Present Illness - Admitted From Admitted From:: home via EMS - History Obtained From Records Reviewed: [facility] History obtained from: Dr. Henry Exam Limitations: her lethargy and confusion - History of Present Illness HPI Comment/Other: 70-year-old female who is brought in by EMS after being called to the house by her . He stated that she had been getting weaker over the last 3 days, getting more confused and not responding to his questions. In the past she has a history of Enterococcus UTI with metabolic encephalopathy. 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 In 2019 she was hospitalized in July, twice in October, December, January, and then March. At times she is discharged to SNF for physical rehab but sometimes she returns to home. Most of them were due to overuse of her medications resulting in sedation, decreased p.o. intake, UTI, dehydration with acute kidney injury, and all responded to IV fluids and IV antibiotics. With her discharge in March we understood that her primary care provider was in the process of decreasing her opiate use, and she was being referred to [facility] for pain management clinic. She went home from that admit and not to SNF. She called EMS in July 2020 when she could not sleep due to anxiety. EMS was able to instruct her on the use of melatonin and she did not require any further evaluation and treatment. With this visit to the emergency room she was evaluated by Dr. Henry. Temperature is 37.7. Heart rate is 65. Blood pressure 150/65. 96% saturating on room air. She is 5 feet 4 inches tall and weight taken from last admission is 87.5 kg. She is incontinent of bowel and bladder. Glucose was 104 at the scene. She was started on IV fluids and brought to the emergency room. She is answering single questions correctly. No aphasia. She has a bilateral hemianopia. NIH stroke scale is 9. Her home meds were not able to be verified due to her confusion. Dr. Henry described her mentation is altered. Current blood work is a white cell count of 10.2, hemoglobin 11. BUN 35, creatinine 2.8. Glucose 102. Lactic acid 1.4. Urine is purulent, positive nitrates, large amount of leukocyte Estrace, greater than 25 white cells, rare squamous, many bacteria. Her last culture and sensitivity showed Enterococcus that was sensitive to ampicillin in March 2020. We are now admitting her for metabolic encephalopathy most likely due to another urinary tract infection. History - Past Medical History Cardiovascular: reports: Hypertension, High cholesterol, Deep vein thrombosis, Murmur Respiratory: reports: Asthma, COPD, Shortness of breath Neuro: reports: Peripheral neuropathy Endocrine/Autoimmune: reports: Type 2 diabetes GI: reports: GERD, Chronic constipation, Pancreatitis : reports: Incontinence, Chronic bladder infection HEENT: reports: None Psych: reports: Anxiety, Bipolar disorder, Other Musculoskeletal: reports: Osteoarthritis, Fatigue, Chronic back pain, Other Derm: reports: Other MRSA Hx?: No - Past Surgical History General: reports: EGD, Colonoscopy Ortho: reports: Knee replacement, 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 Living Situation: With spouse/s.o. Social History Notes: She smoked 1ppd. Uses CBD cannabis oil sublingual. She does not drink alcohol - Substance History Use: Uses substance without health or social issues: Tobacco (hx) - POLST Patient has POLST: No POLST Status: Full Code Meds/Allgy - Home Medications Home Medications: Ambulatory Orders Medication Instructions Recorded Confirmed LORazepam [Ativan] 0.5 mg PO BID PRN #60 tablet 07/17/19 08/15/20 Levothyroxine Sodium 50 mcg PO QDAC #30 07/17/19 08/15/20 [place] Carbonate 300 mg PO DAILY #30 07/17/19 08/15/20 Metoprolol Succinate [Toprol Xl] 50 mg PO DAILY #30 07/17/19 08/15/20 Venlafaxine HCl 75 mg PO BID #60 07/17/19 08/15/20 gemfibroziL [Gemfibrozil] 600 mg PO BID #60 07/17/19 08/15/20 risperiDONE [Risperdal] 1 mg PO QPM #30 07/17/19 08/15/20 Omeprazole 20 mg PO QDAC 11/15/19 08/15/20 Cimetidine 400 mg PO BID PRN 11/26/19 08/15/20 Morphine ER [Morphine Sulfate ER] 15 mg PO Q12H PRN #10 tablet 12/07/19 08/15/20 Estrogens, Conjugated Cream 0.5 gm VG QPM 02/02/20 08/15/20 [Premarin Cream] Amlodipine Besylate [Norvasc] 10 mg PO DAILY 03/13/20 08/15/20 Gabapentin [Neurontin] 100 mg PO 0800,1400 03/13/20 08/15/20 Gabapentin [Neurontin] 500 mg PO QPM 03/13/20 08/15/20 Ondansetron [Ondansetron Odt] 8 mg PO BID PRN 03/13/20 08/15/20 - Allergies Allergies/Adverse Reactions: Allergies Allergy/AdvReac Type Severity Reaction Status Date / Time NSAIDS (Non-Steroidal Allergy Mild Hives Verified 08/15/20 01:23 Anti-Inflamma lisinopril Allergy Unknown Verified 08/15/20 01:23 Sulfa (Sulfonamide AdvReac Mild Rash Verified 08/15/20 01:23 Antibiotics) Review of Systems - Other Findings Other Findings: Unable to be obtained at this time. Patient is too confused. It is 3 AM and we will make contact with later this morning. Prior Level of Functionality: Morbidly obese female with limited mobility due to chronic back pain. Waxing and waning status with regards to ability to ambulate in the past. She has been known to spend many hours in her recliner, or stay in bed. She is ambulatory with a walker at times. Dependent for activities of daily living and has alondra care providers during the week, and a nurse who comes by once week to fill her pill packs. is not able to take care of her due to is on disability due to a stroke. Exam - Vital Signs Reviewed Vital Signs: Yes Vital Signs: Vital Signs x48h Temp Pulse Resp BP Pulse Ox 08/15/20 02:41 37.5 C 62 12 120/53 L 99 08/15/20 02:12 63 10 L 132/64 H 100 08/15/20 01:30 37.8 C 61 12 153/59 H 98 08/15/20 01:21 66 12 144/58 H 100 08/15/20 01:05 80 17 117/45 L 89 L 08/15/20 00:14 37.7 C 65 14 150/65 H 96 - Physical Exam General Appearance: positive: No acute distress, Alert, Other (already responding to treatment from ER, she is speaking more sentences and oriented to place and person. Can't remember why she had to come here though. short, obese) Eyes Bilateral: positive: PERRL, EOMI ENT: positive: Other (partial teeth gone) Neck: positive: No JVD. negative: Stiff neck Respiratory: positive: Chest non-tender, No respiratory distress (but uses abd to occasionally take a breath), Other (diminished at bases, slow, shallow). negative: Wheezes, Rales, Rhonchi Cardiovascular: positive: Regular rate & rhythm, Systolic murmur. negative: Gallop/S4, Friction rub Abdomen: positive: Non-tender, Nml bowel sounds, No distention. negative: Guarding, Rebound Skin: positive: Warm, Dry, Skin rash (where she is siitng on buttock, excoriation but no decub), Other (she had stool covering legs and perineum and b uttock, washed in ER) Extremities: positive: Full ROM, Pedal edema Neurologic/Psychiatric: positive: CN's nml (2-12), Disoriented to time, Weakness (generalized). negative: Motor nml Conclusion/Plan - Problem List (1) Acute metabolic encephalopathy Conclusion/Plan: Chronic patient will be placed in inpatient status Treat the underlying cause which we suspect is UTI Treat dehydration with acute kidney injury with IV fluids Social work eval PT eval (2) UTI (urinary tract infection) Conclusion/Plan: Enterococcus was her last culture. Sensitive to ampicillin. She received Rocephin in the emergency room. We will change her to ampicillin and await culture results. Other bacteria that have grown in her urine since 2013 have been Klebsiella pneumonia, E. coli, Klebsiella oxytocin. Blood cultures have always been negative. Qualifiers: Urinary tract infection type: acute cystitis Hematuria presence: without hematuria Qualified Code(s): N30.00 - Acute cystitis without hematuria (3) Acute on chronic kidney failure Conclusion/Plan: Creatinine can be as low as 1.1-1.2. Suspect element of dehydration again. Plan: IV fluids Check BMP daily Avoid nephrotoxic agents Qualifiers: Acute renal failure type: unspecified Chronic kidney disease stage: stage 3 (moderate) (4) Chronic back pain Conclusion/Plan: Has resulted in decreased ambulation over the years as well as opioid abuse/dependence. Will verify with primary care provider office later in the morning of what her current medication list is. Pharmacy will reconcile medication list and remove those prescriptions from 2020 but no longer apply. Qualifiers: Back pain location: low back pain (5) HTN (hypertension) Conclusion/Plan: Amlodipine is on her medication list. We will resume that Qualifiers: Hypertension type: essential hypertension Qualified Code(s): I10 - Essential (primary) hypertension (6) History of DVT (deep vein thrombosis) Conclusion/Plan: At increased risk of DVT due to weight, immobility. Will start Lovenox 40 mg subcu daily. - Lab Results Lab results reviewed: Yes Fish Bones: 08/15/20 04:22 08/15/20 04:22 - Diagnostic Imaging Results Diagnostic Imaging Results: positive: Final report reviewed Diagnostic Imaging Results Comments: Chest x-ray final report not available. Verbal report from ER physician is that she has a negative chest x-ray. Core Measures - Anticipated LOS I expect patient to be DC'd or transferred within 96 hours.: Yes - DVT/VTE - Prophylaxis VTE/DVT Device ordered at admit?: Yes
[2020-08-15] MEDS ORDERED: AMPICILLIN 500 MG VIAL IVP SCH (03:00)
[2020-08-15] MEDS: LACTATED RINGERS 1,000 ML IV SCH ×2 (03:40→14:20)
[2020-08-15] MEDS: AMPICILLIN 500 MG in SODIUM CHLORIDE 0.9% MINIBAG 100 ML IV SCH ×2 (04:00→15:58)
[2020-08-15 04:52] LABS: BASOPHILS % (AUTO) 0.6 %; EOSINOPHILS % (AUTO) 0.4 %; HCT - HEMATOCRIT 34.9 % (37.0-47.0); HGB - HEMOGLOBIN 10.5 g/dL (12.0-16.0); LYMPHOCYTES # (AUTO) 0.4 10^3/uL (1.5-3.5); LYMPHOCYTES % (AUTO) 5.9 %; MEAN CORPUSCULAR HEMOGLOBIN 28.3 pg (27.0-31.0); MEAN CORPUSCULAR HGB CONC 30.1 g/dL (32.0-36.0); MEAN CORPUSCULAR VOLUME 94.1 fL (81.0-99.0); MONOCYTES # (AUTO) 0.5 10^3/uL (0.0-1.0); MONOCYTES % (AUTO) 7.3 %; NEUTROPHILS % (AUTO) 85.4 %; PLT - PLATELET COUNT 323 10^3/uL (130-450); RED BLOOD COUNT 3.71 10^6/uL (4.20-5.40); RED CELL DISTRIBUTION WIDTH 16.8 % (12.0-15.0)
[2020-08-15 04:59] LABS: CALCIUM 9.2 mg/dL (8.5-10.3); CREATININE 2.9 mg/dL (0.4-1.0); POTASSIUM 4.2 mmol/L (3.5-5.0)
[2020-08-15] MEDS ORDERED: MIN OIL/DIMETHICON/COCONUT OIL 92 GM TUBE TOP PRN (05:43)
--- NOTE | 2020-08-15 08:39 | Ultrasound Report ---
PROCEDURE: Retroperitoneal INDICATIONS: worsening renal failure TECHNIQUE: Real-time scanning was performed of the kidneys and bladder, with image documentation. COMPARISON: None. FINDINGS: Kidneys: Kidneys are at the low end of normal in size. Right kidney measures 9.8 cm long; left kidn ey measures 9.2 cm long. Right renal cortical thickness is 0.9 cm; left renal cortical thickness is 1.2 cm. There is increased cortical echogenicity diffusely in each kidney compared to its internal c ontrol. No solid masses, hydronephrosis, or nephrolithiasis. There are a few cortical cysts in each kidney, the largest on the right is in the midpole and measures 2.3 cm. The largest on the left in the midpol e measures 3.3 cm. Urinary bladder: Jose catheter is decompressing the urinary bladder. Ureteral jets were not visible. IMPRESSION: 1. No evidence of obstructive uropathy. 2. Kidney size at the low end of normal, however diffuse echogenic renal cortices suggesting chronic medical renal disease. 3. Benign bilateral renal cysts. 4. Preliminary report given by the strength and conditioning coach to patient's nurse practitioner. Reviewed by: Genevieve Malloy MD on 08/15/2020 8:38 AM PDT Approved by: Genevieve Malloy MD on 08/15/2020 8:38 AM PDT Station ID: [id number]
[2020-08-15 08:44] LABS: LITHIUM 1.28 mmol/L
[2020-08-15] MEDS: amLODIPine 5 MG TABLET PO SCH (08:48)
[2020-08-15] MEDS: LEVOTHYROXINE 25 MCG TABLET PO SCH (08:48)
[2020-08-15] MEDS: METOPROLOL SUCCINATE 25 MG TABLET PO SCH (08:48)
[2020-08-15] MEDS: SODIUM CHLORIDE FLUSH 0.9% 10 ML SYRINGE IVP SCH ×2 (08:49→16:04)
[2020-08-15] MEDS: ENOXAPARIN 30 MG/0.3 ML SYRINGE SUBQ SCH (08:51)
[2020-08-15] MEDS: PRENATAL VITAMIN TABLET PO SCH (12:11)
--- NOTE | 2020-08-15 12:24 | PHARMACY PROGRESS NOTE ---
- Best Possible Medication History Admit Date and Time: 08/15/20 0235 Processed by: Pharmacy Medication History completed: Yes Patient Interview: Pt unable to participate Secondary Source(s): Written medication list, Spouse/Significant other, Pharmacy records, Insurance records Patient remains confused so I called patient's (Edward) to review medications. Edward has been filling her pillbox for about 2 months and has an [place] spreadsheet that lists everything his takes since he uses that to fill her box. Patient's caregiver also walked in at the end of our phone call and provided a couple updates to the medication list per patient's PCP. The KCl supplement was supposed to be discontinued last week, but Edward was unaware so he has continued to fill it in patient's med box. Patient no longer takes morphine, oxycodone, or lorazepam and has instead been started on suboxone. Notably, patient is currently taking two beta blockers: metoprolol succinate and propranolol. Edward is unsure which medication was p rescribed more recently but confirms that both medications are being filled in her medication box. From insurance records, it looks like the propranolol was newly prescribed/filled last month. Metoprolol last has a fill record in January 2020. As the person ultimately responsible for medication therapy, providers are able to order a medication from an existing home medication list in [facility] via the "Reconcile Routine" prior to Confirmation of that medication by it support manager. Such practice is discouraged except when the physician, in their clinical judgment, deems that a medical need exists for a medication without regard to previous use.
--- NOTE | 2020-08-15 12:44 | XRAY Report ---
PROCEDURE: Chest 1 View X-Ray INDICATIONS: AMS TECHNIQUE: One view of the chest was acquired. COMPARISON: Chest xray 04/03/20 FINDINGS: Surgical changes and devices: None. Lungs and pleura: No pleural effusions or pneumothorax. Lungs are clear. Mediastinum: Mediastinal contours appear normal. Heart size is normal. Bones and chest wall: No suspicious bony lesions. Overlying soft tissues appear unremarkable. IMPRESSION: No acute pulmonary process. The above findings are concordant with preliminary report. Reviewed by: Renate Cardozo MD on 08/15/2020 12:43 PM PDT Approved by: Renate Cardozo MD on 08/15/2020 12:43 PM PDT Station ID: [id number]
[2020-08-15] MEDS ORDERED: cefTRIAXone 1 GM in SODIUM CHLORIDE 0.9% MINIBAG 100 ML IV SCH (17:00)
[2020-08-15] MEDS: SACCHAROMYCES BOULARDII 250 MG CAPSULE PO SCH (17:24)
[2020-08-15 19:44] LABS: CORONAVIRUS 229E-RESP PCR NOT DETECTED; CORONAVIRUS HKU1-RESP PCR NOT DETECTED; CORONAVIRUS NL63-RESP PCR NOT DETECTED; CORONAVIRUS OC43-RESP PCR NOT DETECTED; HUMAN METAPNEUMOVIRUS NOT DETECTED; INFLUENZA A- RESP PCR PANEL NOT DETECTED; RHINOVIRUS/ENTEROVIRUS NOT DETECTED; SARS-CoV-2 -RESP PCR PANEL NOT DETECTED
[2020-08-15 19:45] LABS: B. PARAPERTUSSIS- RESP PCR PAN NOT DETECTED; B. PERTUSSIS- RESP PCR PANEL NOT DETECTED; C. PNEUMONIAE- RESP PCR PANEL NOT DETECTED; INFLUENZA B - RESP PCR PANEL NOT DETECTED; M. PNEUMONIAE- RESP PCR PANEL NOT DETECTED; PARAINFLUENZA VIRUS 1 NOT DETECTED; PARAINFLUENZA VIRUS 2 NOT DETECTED; PARAINFLUENZA VIRUS 3 NOT DETECTED; PARAINFLUENZA VIRUS 4 NOT DETECTED; RSV- RESP PCR PANEL NOT DETECTED
[2020-08-16] MEDS: SODIUM CHLORIDE FLUSH 0.9% 10 ML SYRINGE IVP SCH ×4 (01:32→23:43)
[2020-08-16] MEDS: ACETAMINOPHEN 325 MG TABLET PO PRN (03:46)
[2020-08-16 04:42] LABS: BASOPHILS % (AUTO) 0.4 %; EOSINOPHILS # (AUTO) 0.1 10^3/uL (0.0-0.7); EOSINOPHILS % (AUTO) 0.7 %; HCT - HEMATOCRIT 33.4 % (37.0-47.0); LYMPHOCYTES # (AUTO) 0.7 10^3/uL (1.5-3.5); LYMPHOCYTES % (AUTO) 10.4 %; MEAN CORPUSCULAR HEMOGLOBIN 28.2 pg (27.0-31.0); MEAN CORPUSCULAR HGB CONC 29.9 g/dL (32.0-36.0); MEAN CORPUSCULAR VOLUME 94.1 fL (81.0-99.0); MONOCYTES # (AUTO) 0.8 10^3/uL (0.0-1.0); MONOCYTES % (AUTO) 11.7 %; NEUTROPHILS # (AUTO) 5.3 10^3/uL (1.5-6.6); NEUTROPHILS % (AUTO) 76.1 %; PLT - PLATELET COUNT 320 10^3/uL (130-450); RED BLOOD COUNT 3.55 10^6/uL (4.20-5.40); RED CELL DISTRIBUTION WIDTH 16.9 % (12.0-15.0); WHITE BLOOD COUNT 6.9 x10^3/uL (4.8-10.8)
[2020-08-16 04:51] LABS: CALCIUM 10.3 mg/dL (8.5-10.3); CREATININE 2.4 mg/dL (0.4-1.0)
[2020-08-16] MEDS: LACTATED RINGERS 1,000 ML IV SCH (06:07)
[2020-08-16] MEDS: LEVOTHYROXINE 25 MCG TABLET PO SCH (06:08)
[2020-08-16] MEDS: amLODIPine 5 MG TABLET PO SCH (07:52)
[2020-08-16] MEDS: METOPROLOL SUCCINATE 25 MG TABLET PO SCH (07:52)
[2020-08-16] MEDS: PRENATAL VITAMIN TABLET PO SCH (07:54)
[2020-08-16] MEDS: SACCHAROMYCES BOULARDII 250 MG CAPSULE PO SCH ×2 (07:55→16:59)
[2020-08-16] MEDS: cefTRIAXone 2 GM in SODIUM CHLORIDE 0.9% MINIBAG 100 ML IV SCH (08:07)
[2020-08-16] MEDS: ENOXAPARIN 30 MG/0.3 ML SYRINGE SUBQ SCH (08:17)
[2020-08-16] MEDS ORDERED: PROPRANOLOL 10 MG TABLET PO SCH (09:00)
[2020-08-16] MEDS ORDERED: DEXTROSE 5%-0.45% NACL 1,000 ML IV SCH (10:00)
[2020-08-16] MEDS: ASPIRIN 325 MG TABLET PO SCH (10:08)
[2020-08-16] MEDS: VENLAFAXINE 37.5 MG TABLET PO SCH ×2 (10:10→22:17)
[2020-08-16] MEDS: METOPROLOL SUCCINATE 50 MG TABLET PO SCH (10:12)
[2020-08-16] MEDS: PROPRANOLOL 10 MG TABLET PO SCH ×2 (10:14→22:16)
[2020-08-16 12:36] LABS: ESTIMATED AVERAGE GLUCOSE 120 mg/dL (70-100); HEMOGLOBIN A1c% 5.8 % (4.27-6.07)
[2020-08-16 14:44] LABS: CALCIUM 10.1 mg/dL (8.5-10.3); CREATININE 2.3 mg/dL (0.4-1.0); POTASSIUM 3.8 mmol/L (3.5-5.0)
--- NOTE | 2020-08-16 17:26 | PROVIDER PROGRESS NOTE ---
Assessment/Plan - Problem List (1) Fever Assessment/Plan: pt has Low degree fever 38.3 on today. Patient already had UTI but the patient was under of treatment with antibiotics. Patient'd WBC is still in the normal range, patient has no tachycardia, no tachypnea, patient has 96% sats on room air. pt only one arm blood culture which was negative for bacteremia, will repeat Blood culture, Add to 2gram Rocephin daily, Repeat chest x-ray pending. UA show positive for E. coli, sensitivity study is pending. (2)hypernatremia pt show sodium is 149, interesting at the same time patient's creatinine is improved. We will give patient D5 half normal saline, recheck BMP. (3) Acute metabolic encephalopathy slight improved. continue to Treat the underlying cause which we suspect is UTI continue Treat dehydration with acute kidney injury with IV fluids continue Social work and PT Evaluation and treatment. Per PT and OT evaluation and recommendation, home health PT/OT is ordered (4) UTI (urinary tract infection) Urine culture show positive for E. 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 We will resume that (8) History of DVT (deep vein thrombosis) Conclusion/Plan: At increased risk of DVT due to weight, immobility. continue Lovenox daily, Resume home aspirin 325 daily. - Current Meds Current Meds: Current Medications Generic Name Dose Route Start Last Admin Trade Name Freq PRN Reason Stop Dose Admin Acetaminophen 650 mg 08/15/20 02:35 08/16/20 03:46 Acetaminophen 325 Mg Tablet PO 650 mg Q4HR PRN Administration Pain 1 to 4 Amlodipine Besylate 10 mg 08/15/20 09:00 08/16/20 07:52 Amlodipine 5 Mg Tablet PO 10 mg DAILY JARETT Administration Aspirin 325 mg 08/16/20 09:00 08/16/20 10:08 Aspirin 325 Mg Tablet PO 325 mg DAILY JARETT Administration Enoxaparin Sodium 30 mg 08/15/20 09:00 08/16/20 08:17 Enoxaparin 30 Mg/0.3 Ml Syringe SUBQ 30 mg DAILY JARETT Administration Ceftriaxone Sodium 2 gm/ 100 mls @ 200 mls/hr 08/16/20 09:00 08/16/20 09:00 Sodium Chloride IV Infused Q24H JARETT Infusion Dextrose/Sodium Chloride 1,000 mls @ 85 mls/hr 08/16/20 10:00 08/16/20 10:15 D5.45ns IV 08/17/20 09:31 85 mls/hr .[id number] JARETT Administration Levothyroxine Sodium 50 mcg 08/15/20 08:30 08/16/20 06:08 Levothyroxine 25 Mcg Tablet PO 50 mcg QDAC JARETT Administration Metoprolol Succinate 50 mg 08/16/20 09:00 08/16/20 10:12 Metoprolol Succinate 50 Mg Tablet PO 25 mg DAILY JARETT Administration Multivit/Folic Acid/Iron 1 tab 08/15/20 12:00 08/16/20 07:54 Vitamin Tablet PO 1 tab DAILYWM JARETT Administration Propranolol HCl 20 mg 08/16/20 09:00 08/16/20 10:14 Propranolol 10 Mg Tablet PO 10 mg DAILY JARETT Administration Saccharomyces Boulardii 250 mg 08/15/20 17:00 08/16/20 16:59 Saccharomyces Boulardii 250 Mg Capsule PO 250 mg BIDWM JARETT Administration Sodium Chloride 10 ml 08/15/20 02:35 08/15/20 04:05 Sodium Chloride Flush 0.9% 10 Ml Syringe IVP 10 ml PRN PRN Administration NEEDED PER PROVIDER ORDERS Sodium Chloride 10 ml 08/15/20 09:00 08/16/20 16:59 Sodium Chloride Flush 0.9% 10 Ml Syringe IVP Not Given 0100,0900,1700 JARETT Venlafaxine HCl 75 mg 08/16/20 09:00 08/16/20 10:10 Venlafaxine 37.5 Mg Tablet PO 75 mg BID JARETT Administration - Lab Result Fish Bone Diagrams: 08/16/20 04:32 08/16/20 14:15 - Additional Planning My Orders: My Active Orders 08/15/20 17:00 Saccharomyces Boulardii [Florastor] 250 mg PO BIDWM 08/16/20 08:18 Blood Culture [CULTURE, BLOOD #1] [RM] Urgent 08/16/20 08:40 Blood Culture [CULTURE, BLOOD #2] [RM] Urgent 08/16/20 09:00 Aspirin [Lucila] 325 mg PO DAILY Metoprolol Succinate [Toprol Xl] 50 mg PO DAILY Propranolol [Inderal] 20 mg PO DAILY Venlafaxine [Effexor] 75 mg PO BID cefTRIAXone [Rocephin] 2 gm Sodium Chloride 0.9% Minibag [Normal Saline 0.9% Minibag] 100 ml IV Q24H 08/16/20 10:00 Dextrose 5%-0.45% NaCl [D5.45ns] 1,000 ml IV 85 mls/hr 08/16/20 21:00 Gabapentin [Neurontin] 200 mg PO QPM Patient Own Med [Patient Own Medication] 2.5 each SL QPM Propranolol [Inderal] 10 mg PO QPM risperiDONE [RisperDAL] 1 mg PO QPM Subjective - Subjective Patient Reports: Back Pain Objective Vital Signs: Vital Signs - 24 hr 08/15/20 08/16/20 08/16/20 23:32 04:58 07:42 Temperature 37.2 C 37.2 C 38.3 C H Heart Rate [ 83 99 Brachial] Respiratory 20 18 Rate Blood Pressure 152/52 H [Left Brachial artery] Blood Pressure 146/72 H [Right Brachial artery] O2 Saturation 97 95 08/16/20 15:58 Temperature 37.0 C Heart Rate [ 61 Brachial] Respiratory 18 Rate Blood Pressure 151/56 H [Left Brachial artery] Blood Pressure [Right Brachial artery] O2 Saturation 96 Oxygen O2 Source [Without Activity] Room air O2 Source Room air Oxygen Flow Rate 2 I&O (Last 24 Hrs): Intake and Output Totals x24h 08/14/20 08/15/20 08/16/20 23:59 23:59 23:59 Intake Total 3753.333 2336.667 Output Total 2114 2049 Balance 1638.333 286.667 General: Alert, Mild distress HEENT: Atraumatic Neck: Supple Lymphatic: no adenopathy Neuro: Alert, Non Focal Cardiovascular: Regular rate, Normal S1, Normal S2 Respiratory: Chest non-tender, No respiratory distress Abdomen: Normal bowel sounds, Soft Extremities: Normal pulses - Results Results: Laboratory Results WBC 6.9 x10^3/uL (4.8-10.8) 08/16/20 04:32 RBC 3.55 10^6/uL (4.20-5.40) L 08/16/20 04:32 Hgb 10.0 g/dL (12.0-16.0) L 08/16/20 04:32 Hct 33.4 % (37.0-47.0) L 08/16/20 04:32 MCV 94.1 fL (81.0-99.0) 08/16/20 04:32 MCH 28.2 pg (27.0-31.0) 08/16/20 04:32 MCHC 29.9 g/dL (32.0-36.0) L 08/16/20 04:32 RDW 16.9 % (12.0-15.0) H 08/16/20 04:32 Plt Count 320 10^3/uL (130-450) 08/16/20 04:32 MPV 10.0 fL (7.9-10.8) 08/16/20 04:32 Neut # (Auto) 5.3 10^3/uL (1.5-6.6) 08/16/20 04:32 Lymph # (Auto) 0.7 10^3/uL (1.5-3.5) L 08/16/20 04:32 [place] # (Auto) 0.8 10^3/uL (0.0-1.0) 08/16/20 04:32 Eos # (Auto) 0.1 10^3/uL (0.0-0.7) 08/16/20 04:32 Baso # (Auto) 0.0 10^3/uL (0.0-0.1) 08/16/20 04:32 Absolute Nucleated RBC 0.00 x10^3/uL 08/16/20 04:32 Nucleated RBC % 0.0 /100WBC 08/16/20 04:32 Sodium 148 mmol/L (135-145) H 08/16/20 14:15 Potassium 3.8 mmol/L (3.5-5.0) 08/16/20 14:15 Chloride 110 mmol/L (101-111) 08/16/20 14:15 Carbon Dioxide 27 mmol/L (21-32) 08/16/20 14:15 Anion Gap 11.0 (6-13) 08/16/20 14:15 BUN 39 mg/dL (6-20) H 08/16/20 14:15 Creatinine 2.3 mg/dL (0.4-1.0) H 08/16/20 14:15 Estimated GFR (MDRD) 21 (>89) L 08/16/20 14:15 Glucose 221 mg/dL (70-100) H 08/16/20 14:15 Estimat Average Glucose 120 mg/dL (70-100) H 08/16/20 04:32 Hemoglobin A1c % 5.8 % (4.27-6.07) 08/16/20 04:32 Lactic Acid 1.4 mmol/L (0.5-2.2) 08/15/20 00:54 Calcium 10.1 mg/dL (8.5-10.3) 08/16/20 14:15 Total Bilirubin 0.8 mg/dL (0.2-1.0) 08/15/20 00:54 AST 13 IU/L (10-42) 08/15/20 00:54 ALT < 10 IU/L (10-60) L 08/15/20 00:54 Alkaline Phosphatase 219 IU/L (42-121) H 08/15/20 00:54 B-Natriuretic Peptide 58 pg/mL (5-100) 08/15/20 00:54 Total Protein 7.0 g/dL (6.7-8.2) 08/15/20 00:54 Albumin 3.1 g/dL (3.2-5.5) L 08/15/20 00:54 Globulin 3.9 g/dL (2.1-4.2) 08/15/20 00:54 Albumin/Globulin Ratio 0.8 (1.0-2.2) L 08/15/20 00:54 Lipase 18 U/L (22-51) L 08/15/20 00:54 TSH 1.24 uIU/mL (0.34-5.60) 08/15/20 04:22 Urine Color YELLOW 08/15/20 00:45 Urine Clarity CLOUDY (CLEAR) 08/15/20 00:45 Urine pH 6.0 PH (5.0-7.5) 08/15/20 00:45 Ur Specific [place] 1.015 (1.002-1.030) 08/15/20 00:45 Urine Protein 30 mg/dL (NEGATIVE) H 08/15/20 00:45 Urine Glucose (UA) NEGATIVE mg/dL (NEGATIVE) 08/15/20 00:45 Urine Ketones NEGATIVE mg/dL (NEGATIVE) 08/15/20 00:45 Urine Occult Blood SMALL (NEGATIVE) H 08/15/20 00:45 Urine Nitrite POSITIVE (NEGATIVE) H 08/15/20 00:45 Urine Bilirubin NEGATIVE (NEGATIVE) 08/15/20 00:45 Urine Urobilinogen 0.2 (NORMAL) E.U./dL (NORMAL) 08/15/20 00:45 Ur Leukocyte Esterase LARGE (NEGATIVE) H 08/15/20 00:45 Urine RBC 0-5 /HPF (0-5) 08/15/20 00:45 Urine WBC >25 /HPF (0-5) H 08/15/20 00:45 Ur Squamous Epith Cells RARE Squamous (<= Few) 08/15/20 00:45 Urine Bacteria Many /HPF (None Seen) H 08/15/20 00:45 Ur Microscopic Review INDICATED 08/15/20 00:45 Urine Culture Comments INDICATED 08/15/20 00:45 Nasal Adenovirus (PCR) NOT DETECTED 08/15/20 18:45 Nasal B. parapertussis DNA (PCR) NOT DETECTED 08/15/20 18:45 Nasal Coronavir 229E PCR NOT DETECTED 08/15/20 18:45 Nasal Coronavir HKU1 PCR NOT DETECTED 08/15/20 18:45 Nasal Coronavir NL63 PCR NOT DETECTED 08/15/20 18:45 Nasal Coronavir OC43 PCR NOT DETECTED 08/15/20 18:45 Nasal Enterovir/Rhinovir PCR NOT DETECTED 08/15/20 18:45 Nasal Influenza B PCR NOT DETECTED 08/15/20 18:45 Nasal Influenza A PCR NOT DETECTED 08/15/20 18:45 Nasal Parainfluen 1 PCR NOT DETECTED 08/15/20 18:45 Nasal Parainfluen 2 PCR NOT DETECTED 08/15/20 18:45 Nasal Parainfluen 3 PCR NOT DETECTED 08/15/20 18:45 Nasal Parainfluen 4 PCR NOT DETECTED 08/15/20 18:45 Nasal RSV (PCR) NOT DETECTED 08/15/20 18:45 Nasal B.pertussis DNA PCR NOT DETECTED 08/15/20 18:45 Nasal C.pneumoniae (PCR) NOT DETECTED 08/15/20 18:45 [place] Human Metapneumo PCR NOT DETECTED 08/15/20 18:45 Nasal M.pneumoniae (PCR) NOT DETECTED 08/15/20 18:45 Nasal SARS-CoV-2 (PCR) NOT DETECTED 08/15/20 18:45 Last Dose Date 08/15/20 08/15/20 08:10 Last Dose Time 0128 08/15/20 08:10 [place] 1.28 mmol/L 08/15/20 08:10 - Procedures Procedures: Procedures COLONOSCOPY (01/09/13) DRAINAGE OF BLADDER WITH DRAINAGE DEVICE, VIA OPENING (11/25/19) ABX Reporting Has patient been on IV antibiotics over the past 48 hours?: Yes Current Medications - Current Medications Current Medications: Active Medications Acetaminophen (Acetaminophen 325 Mg Tablet) 650 mg PO Q4HR PRN PRN Reason: Pain 1 to 4 Last Admin: 08/16/20 03:46 Dose: 650 mg Documented by: Amlodipine Besylate (Amlodipine 5 Mg Tablet) 10 mg PO DAILY [facility] Last Admin: 08/16/20 07:52 Dose: 10 mg Documented by: Aspirin (Aspirin 325 Mg Tablet) 325 mg PO DAILY [facility] Last Admin: 08/16/20 10:08 Dose: 325 mg Documented by: Enoxaparin Sodium (Enoxaparin 30 Mg/0.3 Ml Syringe) 30 mg SUBQ DAILY [facility] Last Admin: 08/16/20 08:17 Dose: 30 mg Documented by: Gabapentin (Gabapentin 100 Mg Capsule) 200 mg PO QPM [facility] Ceftriaxone Sodium 2 gm/ (Sodium Chloride) 100 mls @ 200 mls/hr IV Q24H [facility] Last Infusion: 08/16/20 09:00 Dose: Infused Documented by: Dextrose/Sodium Chloride (D5.45ns) 1,000 mls @ 100 mls/hr IV .Q10H [facility] Stop: 08/17/20 13:37 Levothyroxine Sodium (Levothyroxine 25 Mcg Tablet) 50 mcg PO QDAC [facility] Last Admin: 08/16/20 06:08 Dose: 50 mcg Documented by: Metoprolol Succinate (Metoprolol Succinate 50 Mg Tablet) 50 mg PO DAILY [facility] Last Admin: 08/16/20 10:12 Dose: 25 mg Documented by: Mineral Oil (Min Oil/Dimethicon/Coconut Oil 92 Gm Tube) 1 applic TOP PRN PRN PRN Reason: Skin Care Ondansetron HCl (Ondansetron Odt 4 Mg Tablet) 4 mg TL Q6HR PRN PRN Reason: Nausea / Vomiting Ondansetron HCl (Ondansetron 4 Mg/2 Ml Vial) 4 mg IVP Q6HR PRN PRN Reason: Nausea / Vomiting Oxycodone HCl (Oxycodone 5 Mg Tablet) 5 mg PO Q4HR PRN PRN Reason: Pain 5 to 7 Buprenorphine Hcl/Naloxone Hcl [ Suboxone 8-2 Mg Sl Tab] Tab 2.5 each SL QPM [facility] Multivit/Folic Acid/Iron ( Vitamin Tablet) 1 tab PO DAILYWM [facility] Last Admin: 08/16/20 07:54 Dose: 1 tab Documented by: Propranolol HCl (Propranolol 10 Mg Tablet) 20 mg PO DAILY [facility] Last Admin: 08/16/20 10:14 Dose: 10 mg Documented by: Propranolol HCl (Propranolol 10 Mg Tablet) 10 mg PO QPM [facility] Risperidone (Risperidone 1 Mg Tablet) 1 mg PO QPM [facility] Saccharomyces Boulardii (Saccharomyces Boulardii 250 Mg Capsule) 250 mg PO BIDWM [facility] Last Admin: 08/16/20 16:59 Dose: 250 mg Documented by: Sodium Chloride (Sodium Chloride Flush 0.9% 10 Ml Syringe) 10 ml IVP PRN PRN PRN Reason: NEEDED PER PROVIDER ORDERS Last Admin: 08/15/20 04:05 Dose: 10 ml Documented by: Sodium Chloride (Sodium Chloride Flush 0.9% 10 Ml Syringe) 10 ml IVP 0100,0900,1700 [facility] Last Admin: 08/16/20 16:59 Dose: Not Given Documented by: Venlafaxine HCl (Venlafaxine 37.5 Mg Tablet) 75 mg PO BID [facility] Last Admin: 08/16/20 10:10 Dose: 75 mg Documented by: Omeprazole 20 mg PO QDAC 11/15/19 Cimetidine 400 mg PO BID 11/26/19 Estrogens, Conjugated Cream [Premarin Cream] 0.5 gm VG QPM 02/02/20 Aspirin [Lucila] 325 mg PO DAILY 08/15/20 Buprenorphine HCl/Naloxone HCl [Suboxone 8-2 mg Sl tab] 2.5 tab SL QPM 08/15/20 Cholecalciferol [Vitamin D3] 25 mcg PO DAILY 08/15/20 Furosemide [Lasix] 20 mg PO DAILY 08/15/20 Gabapentin [Neurontin] 200 mg PO QPM 08/15/20 Potassium Chloride [Klor-Con 10] 10 meq PO QPM 08/15/20 Propranolol [Inderal] 10 - 20 mg PO BID 08/15/20 Senna [Senokot] 8.6 mg PO BID 08/15/20
[2020-08-16] MEDS ORDERED: ZINC OXIDE 20% OINT 30 GM TUBE TOP PRN (19:36)
[2020-08-16] MEDS: DEXTROSE 5%-0.45% NACL 1,000 ML IV SCH (21:34)
[2020-08-16] MEDS: risperiDONE 1 MG TABLET PO SCH (22:15)
[2020-08-16] MEDS: GABAPENTIN 100 MG CAPSULE PO SCH (22:15)
[2020-08-16] MEDS: NALOXONE HCL SL SCH (23:33)
[2020-08-16] MEDS: BUPRENORPHINE HCL SL SCH (23:33)
[2020-08-17] MEDS: LEVOTHYROXINE 25 MCG TABLET PO SCH (06:08)
[2020-08-17 06:09] LABS: BASOPHILS # (AUTO) 0.1 10^3/uL (0.0-0.1); BASOPHILS % (AUTO) 0.7 %; EOSINOPHILS # (AUTO) 0.4 10^3/uL (0.0-0.7); HCT - HEMATOCRIT 32.3 % (37.0-47.0); HGB - HEMOGLOBIN 9.8 g/dL (12.0-16.0); LYMPHOCYTES # (AUTO) 1.5 10^3/uL (1.5-3.5); LYMPHOCYTES % (AUTO) 19.9 %; MEAN CORPUSCULAR HEMOGLOBIN 28.9 pg (27.0-31.0); MEAN CORPUSCULAR HGB CONC 30.3 g/dL (32.0-36.0); MEAN CORPUSCULAR VOLUME 95.3 fL (81.0-99.0); MEAN PLATELET VOLUME 10.3 fL (7.9-10.8); MONOCYTES % (AUTO) 13.1 %; NEUTROPHILS # (AUTO) 4.4 10^3/uL (1.5-6.6); NEUTROPHILS % (AUTO) 60.1 %; PLT - PLATELET COUNT 294 10^3/uL (130-450); RED BLOOD COUNT 3.39 10^6/uL (4.20-5.40); RED CELL DISTRIBUTION WIDTH 17.3 % (12.0-15.0); WHITE BLOOD COUNT 7.3 x10^3/uL (4.8-10.8)
[2020-08-17 06:15] LABS: CALCIUM 9.6 mg/dL (8.5-10.3); CREATININE 1.9 mg/dL (0.4-1.0); POTASSIUM 3.9 mmol/L (3.5-5.0)
--- NOTE | 2020-08-17 07:31 | PROVIDER PROGRESS NOTE ---
Assessment/Plan - Problem List (1) UTI (urinary tract infection) Qualifiers: Urinary tract infection type: acute cystitis Hematuria presence: without hematuria Qualified Code(s): N30.00 - Acute cystitis without hematuria Assessment/Plan: Urine culture of 08/15/20 grew E. coli. Sensitivities pending. Patient is on Rocephin. We will continue for now. Anticipated discharge tomorrow 08/18/20. (2) Acute metabolic encephalopathy Assessment/Plan: Likely secondary to UTI. Resolved. We will continue treating with IV antibiotics and IV hydration. (3) VICKIE (acute kidney injury) Assessment/Plan: Likely secondary to UTI and dehydration. Improved. Patient's creatinine today is 1.9. At admission it was 2.9. We will continue IV hydration with D5 and half-normal saline. (4) HTN (hypertension) Qualifiers: Hypertension type: essential hypertension Qualified Code(s): I10 - Essential (primary) hypertension Assessment/Plan: On metoprolol succinate 50 mg and amlodipine 10 mg p.o. daily. (5) History of DVT (deep vein thrombosis) Assessment/Plan: DVT prophylaxis with Lovenox 30 mg subcu daily. SCDs ordered. (6) Hypothyroidism Assessment/Plan: On Synthroid 50 mcg p.o. daily AC. (7) Hypernatremia Assessment/Plan: Patient's sodium level today is 147. This is an improvement from 149. She is on D5 half-normal saline. We will recheck with morning labs. (8) Chronic back pain Qualifiers: Back pain location: low back pain Assessment/Plan: Oxycodone 5 mg p.o. every 4 hours as needed. - Current Meds Current Meds: Current Medications Generic Name Dose Route Start Last Admin Trade Name Freq PRN Reason Stop Dose Admin Acetaminophen 650 mg 08/15/20 02:35 08/16/20 03:46 Acetaminophen 325 Mg Tablet PO 650 mg Q4HR PRN Administration Pain 1 to 4 Amlodipine Besylate 10 mg 08/15/20 09:00 08/16/20 07:52 Amlodipine 5 Mg Tablet PO 10 mg DAILY JARETT Administration Aspirin 325 mg 08/16/20 09:00 08/16/20 10:08 Aspirin 325 Mg Tablet PO 325 mg DAILY JARETT Administration Enoxaparin Sodium 30 mg 08/15/20 09:00 04/16/21 08:17 Enoxaparin 30 Mg/0.3 Ml Syringe SUBQ 30 mg DAILY JARETT Administration Gabapentin 200 mg 08/16/20 21:00 08/16/20 22:15 Gabapentin 100 Mg Capsule PO 200 mg QPM JARETT Administration Ceftriaxone Sodium 2 gm/ 100 mls @ 200 mls/hr 08/16/20 09:00 08/16/20 09:00 Sodium Chloride IV Infused Q24H JARETT Infusion Dextrose/Sodium Chloride 1,000 mls @ 100 mls/hr 08/16/20 17:38 08/16/20 21:34 D5.45ns IV 08/17/20 13:37 100 mls/hr .Q10H JARETT Administration Levothyroxine Sodium 50 mcg 08/15/20 08:30 08/17/20 06:08 Levothyroxine 25 Mcg Tablet PO 50 mcg QDAC JARETT Administration Metoprolol Succinate 50 mg 08/16/20 09:00 08/16/20 10:12 Metoprolol Succinate 50 Mg Tablet PO 25 mg DAILY JARETT Administration Multi-Ingredient Ointment 1 applic 08/16/20 19:36 08/17/20 06:08 Zinc Oxide 20% Oint 30 Gm Tube TOP 1 applic PRN PRN Administration Skin Care Buprenorphine Hcl/ 2.5 each 08/16/20 21:00 08/16/20 23:33 Naloxone Hcl [ SL Not Given Suboxone 8-2 Mg Sl QPM JARETT Tab] Tab Multivit/Folic Acid/Iron 1 tab 08/15/20 12:00 08/16/20 07:54 Vitamin Tablet PO 1 tab DAILYWM JARETT Administration Propranolol HCl 20 mg 08/16/20 09:00 08/16/20 10:14 Propranolol 10 Mg Tablet PO 10 mg DAILY JARETT Administration Propranolol HCl 10 mg 08/16/20 21:00 08/16/20 22:16 Propranolol 10 Mg Tablet PO 10 mg QPM JARETT Administration Risperidone 1 mg 08/16/20 21:00 08/16/20 22:15 Risperidone 1 Mg Tablet PO 1 mg QPM JARETT Administration Saccharomyces Boulardii 250 mg 08/15/20 17:00 08/16/20 16:59 Saccharomyces Boulardii 250 Mg Capsule PO 250 mg BIDWM JARETT Administration Sodium Chloride 10 ml 08/15/20 02:35 08/15/20 04:05 Sodium Chloride Flush 0.9% 10 Ml Syringe IVP 10 ml PRN PRN Administration NEEDED PER PROVIDER ORDERS Sodium Chloride 10 ml 08/15/20 09:00 08/16/20 23:43 Sodium Chloride Flush 0.9% 10 Ml Syringe IVP Not Given 0100,0900,1700 JARETT Venlafaxine HCl 75 mg 08/16/20 09:00 08/16/20 22:17 Venlafaxine 37.5 Mg Tablet PO 75 mg BID JARETT Administration - Lab Result Fish Bone Diagrams: 08/17/20 05:20 08/17/20 05:20 Subjective - Subjective Patient Reports: Other (Patient resting comfortably in bed. She is slightly sleepy but readily wakes up and able to carry on a full conversation. She denies any complaints. She specifically requested to have no thickener in her food.) Objective Vital Signs: Vital Signs - 24 hr 08/16/20 08/16/20 08/17/20 07:42 15:58 00:00 Temperature 38.3 C H 37.0 C 37.2 C Heart Rate [ 99 61 66 Brachial] Respiratory 18 18 20 Rate Blood Pressure 152/52 H 151/56 H [Left Brachial artery] Blood Pressure 136/61 H [Right Brachial artery] O2 Saturation 95 96 96 Oxygen O2 Source [Without Activity] Room air O2 Source Room air Oxygen Flow Rate 2 I&O (Last 24 Hrs): Intake and Output Totals x24h 08/15/20 08/16/20 08/17/20 23:59 23:59 23:59 Intake Total 3753.333 3813.667 Output Total 2115 3000 1750 Balance 1638.333 813.667 -1750 General: Alert, Oriented x3, No acute distress HEENT: PERRLA, EOMI Neck: Supple, No JVD Neuro: Alert, Non Focal, Oriented Times 3 Cardiovascular: Regular rate Respiratory: Chest non-tender, No respiratory distress, Breath sounds nml Abdomen: Normal bowel sounds, Soft, No tenderness Genitourinary: Other (chen cath draining clear urine) Extremities: No clubbing, No edema Skin: No rashes Comments/Notes: significant bruise on right hand - Results Results: Laboratory Results WBC 7.3 x10^3/uL (4.8-10.8) 08/17/20 05:20 RBC 3.39 10^6/uL (4.20-5.40) L 04/17/21 05:20 Hgb 9.8 g/dL (12.0-16.0) L 08/17/20 05:20 Hct 32.3 % (37.0-47.0) L 08/17/20 05:20 MCV 95.3 fL (81.0-99.0) 08/17/20 05:20 MCH 28.9 pg (27.0-31.0) 08/17/20 05:20 MCHC 30.3 g/dL (32.0-36.0) L 08/17/20 05:20 RDW 17.3 % (12.0-15.0) H 08/17/20 05:20 Plt Count 294 10^3/uL (130-450) 08/17/20 05:20 MPV 10.3 fL (7.9-10.8) 08/17/20 05:20 Neut # (Auto) 4.4 10^3/uL (1.5-6.6) 08/17/20 05:20 Lymph # (Auto) 1.5 10^3/uL (1.5-3.5) 08/17/20 05:20 [place] # (Auto) 1.0 10^3/uL (0.0-1.0) 08/17/20 05:20 Eos # (Auto) 0.4 10^3/uL (0.0-0.7) 08/17/20 05:20 Baso # (Auto) 0.1 10^3/uL (0.0-0.1) 08/17/20 05:20 Absolute Nucleated RBC 0.00 x10^3/uL 08/17/20 05:20 Nucleated RBC % 0.0 /100WBC 08/17/20 05:20 Sodium 147 mmol/L (135-145) H 08/17/20 05:20 Potassium 3.9 mmol/L (3.5-5.0) 08/17/20 05:20 Chloride 108 mmol/L (101-111) 08/17/20 05:20 Carbon Dioxide 30 mmol/L (21-32) 08/17/20 05:20 Anion Gap 9.0 (6-13) 08/17/20 05:20 BUN 31 mg/dL (6-20) H 08/17/20 05:20 Creatinine 1.9 mg/dL (0.4-1.0) H 08/17/20 05:20 Estimated GFR (MDRD) 26 (>89) L 08/17/20 05:20 Glucose 152 mg/dL (70-100) H 08/17/20 05:20 Estimat Average Glucose 120 mg/dL (70-100) H 08/16/20 04:32 Hemoglobin A1c % 5.8 % (4.27-6.07) 08/16/20 04:32 Lactic Acid 1.4 mmol/L (0.5-2.2) 08/15/20 00:54 Calcium 9.6 mg/dL (8.5-10.3) 08/17/20 05:20 Total Bilirubin 0.8 mg/dL (0.2-1.0) 08/15/20 00:54 AST 13 IU/L (10-42) 08/15/20 00:54 ALT < 10 IU/L (10-60) L 08/15/20 00:54 Alkaline Phosphatase 219 IU/L (42-121) H 08/15/20 00:54 B-Natriuretic Peptide 58 pg/mL (5-100) 08/15/20 00:54 Total Protein 7.0 g/dL (6.7-8.2) 08/15/20 00:54 Albumin 3.1 g/dL (3.2-5.5) L 08/15/20 00:54 Globulin 3.9 g/dL (2.1-4.2) 08/15/20 00:54 Albumin/Globulin Ratio 0.8 (1.0-2.2) L 08/15/20 00:54 Lipase 18 U/L (22-51) L 08/15/20 00:54 TSH 1.24 uIU/mL (0.34-5.60) 08/15/20 04:22 Urine Color YELLOW 08/15/20 00:45 Urine Clarity CLOUDY (CLEAR) 08/15/20 00:45 Urine pH 6.0 PH (5.0-7.5) 08/15/20 00:45 Ur Specific [place] 1.015 (1.002-1.030) 08/15/20 00:45 Urine Protein 30 mg/dL (NEGATIVE) H 08/15/20 00:45 Urine Glucose (UA) NEGATIVE mg/dL (NEGATIVE) 08/15/20 00:45 Urine Ketones NEGATIVE mg/dL (NEGATIVE) 08/15/20 00:45 Urine Occult Blood SMALL (NEGATIVE) H 08/15/20 00:45 Urine Nitrite POSITIVE (NEGATIVE) H 08/15/20 00:45 Urine Bilirubin NEGATIVE (NEGATIVE) 08/15/20 00:45 Urine Urobilinogen 0.2 (NORMAL) E.U./dL (NORMAL) 08/15/20 00:45 Ur Leukocyte Esterase LARGE (NEGATIVE) H 08/15/20 00:45 Urine RBC 0-5 /HPF (0-5) 08/15/20 00:45 Urine WBC >25 /HPF (0-5) H 08/15/20 00:45 Ur Squamous Epith Cells RARE Squamous (<= Few) 08/15/20 00:45 Urine Bacteria Many /HPF (None Seen) H 08/15/20 00:45 Ur Microscopic Review INDICATED 08/15/20 00:45 Urine Culture Comments INDICATED 08/15/20 00:45 Nasal Adenovirus (PCR) NOT DETECTED 08/15/20 18:45 Nasal B. parapertussis DNA (PCR) NOT DETECTED 08/15/20 18:45 Nasal Coronavir 229E PCR NOT DETECTED 08/15/20 18:45 Nasal Coronavir HKU1 PCR NOT DETECTED 08/15/20 18:45 Nasal Coronavir NL63 PCR NOT DETECTED 08/15/20 18:45 Nasal Coronavir OC43 PCR NOT DETECTED 08/15/20 18:45 Nasal Enterovir/Rhinovir PCR NOT DETECTED 08/15/20 18:45 Nasal Influenza B PCR NOT DETECTED 08/15/20 18:45 Nasal Influenza A PCR NOT DETECTED 08/15/20 18:45 Nasal Parainfluen 1 PCR NOT DETECTED 08/15/20 18:45 Nasal Parainfluen 2 PCR NOT DETECTED 08/15/20 18:45 Nasal Parainfluen 3 PCR NOT DETECTED 08/15/20 18:45 Nasal Parainfluen 4 PCR NOT DETECTED 08/15/20 18:45 Nasal RSV (PCR) NOT DETECTED 08/15/20 18:45 Nasal B.pertussis DNA PCR NOT DETECTED 08/15/20 18:45 Nasal C.pneumoniae (PCR) NOT DETECTED 08/15/20 18:45 [place] Human Metapneumo PCR NOT DETECTED 08/15/20 18:45 Nasal M.pneumoniae (PCR) NOT DETECTED 08/15/20 18:45 Nasal SARS-CoV-2 (PCR) NOT DETECTED 08/15/20 18:45 Last Dose Date 08/15/20 08/15/20 08:10 Last Dose Time 0128 08/15/20 08:10 [place] 1.28 mmol/L 08/15/20 08:10 - Procedures Procedures: Procedures COLONOSCOPY (01/09/13) DRAINAGE OF BLADDER WITH DRAINAGE DEVICE, VIA OPENING (11/25/19) ABX Reporting Has patient been on IV antibiotics over the past 48 hours?: Yes
[2020-08-17] MEDS: DEXTROSE 5%-0.45% NACL 1,000 ML IV SCH (08:05)
[2020-08-17] MEDS: ASPIRIN 325 MG TABLET PO SCH (08:05)
[2020-08-17] MEDS: amLODIPine 5 MG TABLET PO SCH (08:06)
[2020-08-17] MEDS: PRENATAL VITAMIN TABLET PO SCH (08:06)
[2020-08-17] MEDS: METOPROLOL SUCCINATE 50 MG TABLET PO SCH (08:06)
[2020-08-17] MEDS: VENLAFAXINE 37.5 MG TABLET PO SCH ×2 (08:06→20:28)
[2020-08-17] MEDS: PROPRANOLOL 10 MG TABLET PO SCH ×2 (08:07→20:28)
[2020-08-17] MEDS: SACCHAROMYCES BOULARDII 250 MG CAPSULE PO SCH ×2 (08:07→17:06)
[2020-08-17] MEDS: cefTRIAXone 2 GM in SODIUM CHLORIDE 0.9% MINIBAG 100 ML IV SCH (08:08)
[2020-08-17] MEDS: ENOXAPARIN 30 MG/0.3 ML SYRINGE SUBQ SCH (08:10)
[2020-08-17] MEDS: SODIUM CHLORIDE FLUSH 0.9% 10 ML SYRINGE IVP SCH ×2 (13:53→17:04)
[2020-08-17] MEDS: GABAPENTIN 100 MG CAPSULE PO SCH (20:28)
[2020-08-17] MEDS: NALOXONE HCL SL SCH (20:29)
[2020-08-17] MEDS: risperiDONE 1 MG TABLET PO SCH (20:29)
[2020-08-17] MEDS: BUPRENORPHINE HCL SL SCH (20:29)
[2020-08-18] MEDS: SODIUM CHLORIDE FLUSH 0.9% 10 ML SYRINGE IVP SCH ×2 (00:27→08:39)
[2020-08-18] MEDS: ACETAMINOPHEN 325 MG TABLET PO PRN (05:03)
[2020-08-18 05:25] LABS: BASOPHILS % (AUTO) 0.5 %; EOSINOPHILS # (AUTO) 0.6 10^3/uL (0.0-0.7); EOSINOPHILS % (AUTO) 7.8 %; HCT - HEMATOCRIT 34.7 % (37.0-47.0); HGB - HEMOGLOBIN 10.5 g/dL (12.0-16.0); LYMPHOCYTES # (AUTO) 1.7 10^3/uL (1.5-3.5); LYMPHOCYTES % (AUTO) 20.7 %; MEAN CORPUSCULAR HEMOGLOBIN 28.5 pg (27.0-31.0); MEAN CORPUSCULAR HGB CONC 30.3 g/dL (32.0-36.0); MEAN PLATELET VOLUME 10.1 fL (7.9-10.8); MONOCYTES % (AUTO) 12.4 %; NEUTROPHILS # (AUTO) 4.7 10^3/uL (1.5-6.6); NEUTROPHILS % (AUTO) 57.6 %; PLT - PLATELET COUNT 323 10^3/uL (130-450); RED BLOOD COUNT 3.69 10^6/uL (4.20-5.40); RED CELL DISTRIBUTION WIDTH 16.7 % (12.0-15.0); WHITE BLOOD COUNT 8.2 x10^3/uL (4.8-10.8)
[2020-08-18 05:29] LABS: CALCIUM 9.8 mg/dL (8.5-10.3); CREATININE 1.8 mg/dL (0.4-1.0)
[2020-08-18] MEDS: LEVOTHYROXINE 25 MCG TABLET PO SCH (05:51)
--- NOTE | 2020-08-18 07:14 | DISCHARGE SUMMARY ---
Discharge Summary Admit Date: 08/16/20 Discharge Date: 08/18/20 Discharging Provider: Krissy Brewster Primary Care Provider: Rea Khan Code Status: Do Not Attempt Resuscitation Condition at Discharge: Stable Discharge Disposition: Home Health Service - DIAGNOSES Admission Diagnoses: Acute metabolic encephalopathy UTI Acute on chronic kidney failure Chronic back pain Hypertension History of DVT Discharge Diagnoses with Status of Each Condition: Acute metabolic encephalopathy: Acute. Resolved UTI: Acute. Resolved Acute on chronic kidney failure: Improved Chronic back pain Hypertension: Chronic. Stable History of DVT - HPI History of Present Illness: 70-year-old female who is brought in by EMS after being called to the house by her . He stated that she had been getting weaker over the last 3 days, getting more confused and not responding to his questions. In the past she has a history of Enterococcus UTI with metabolic encephalopathy. 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 In 2019 she was hospitalized in July, twice in October, December, January, and then March. At times she is discharged to SNF for physical rehab but sometimes she returns to home. Most of them were due to overuse of her medications resulting in sedat ion, decreased p.o. intake, UTI, dehydration with acute kidney injury, and all responded to IV fluids and IV antibiotics. With her discharge in March we understood that her primary care provider was in the process of decreasing her opiate use, and she was being referred to [facility] for pain management clinic. She went home from that admit and not to SNF. She called EMS in July 2020 when she could not sleep due to anxiety. EMS was able to instruct her on the use of melatonin and she did not require any further evaluation and treatment. With this visit to the emergency room she was evaluated by Dr. Henry. Temperature is 37.7. Heart rate is 65. Blood pressure 150/65. 96% saturating on room air. She is 5 feet 4 inches tall and weight taken from last admission is 87.5 kg. She is incontinent of bowel and bladder. Glucose was 104 at the scene. She was started on IV fluids and brought to the emergency room. She is answering single questions correctly. No aphasia. She has a bilateral hemianopia. NIH stroke scale is 9. Her home meds were not able to be verified due to her confusion. Dr. Henry described her mentation is altered. Current blood work is a white cell count of 10.2, hemoglobin 11. BUN 35, creatinine 2.8. Glucose 102. Lactic acid 1.4. Urine is purulent, positive nitrates, large amount of leukocyte Estrace, greater than 25 white cells, rare squamous, many bacteria. Her last culture and sensitivity showed Enterococcus that was sensitive to ampicillin in March 2020. We are now admitting her for metabolic encephalopathy most likely due to another urinary tract infection. Blood and urine cultures were obtained, the patient was started on Rocephin and also received IV fluids for hydration. Pansensitive E. coli subsequently grew on urine cultures. The patient's renal function steadily improve daily. By the time of discharge her creatinine was 1.8. The patient was also more alert and able to carry on a full conversation by the day of discharge. She was discharged home with a prescription of Cipro to 50 mg p.o. twice daily x3 days. She was advised to decrease her amount of pain medication use, increase activity and increase fiber in her diet in the form of possibly Metamucil, prune juice, vegetables and fruits to help address constipation. She may follow-up with her primary care physician within 5 to 7 days or as needed. - ALLERGIES Allergies/Adverse Reactions: Allergies Allergy/AdvReac Type Severity Reaction Status Date / Time NSAIDS (Non-Steroidal Allergy Mild Hives Verified 08/15/20 01:23 Anti-Inflamma lisinopril Allergy Unknown Verified 08/15/20 01:23 Sulfa (Sulfonamide AdvReac Mild Rash Verified 08/15/20 01:23 Antibiotics) - MEDICATIONS Home Medications: Ambulatory Orders Medication Instructions Recorded Confirmed Levothyroxine Sodium 50 mcg PO QDAC #30 07/17/19 08/15/20 [place] Carbonate 300 mg PO DAILY #30 07/17/19 08/15/20 Metoprolol Succinate [Toprol Xl] 50 mg PO DAILY #30 07/17/19 08/15/20 Venlafaxine HCl 75 mg PO BID #60 07/17/19 08/15/20 gemfibroziL [Gemfibrozil] 600 mg PO BID #60 07/17/19 08/15/20 risperiDONE [Risperdal] 1 mg PO QPM #30 07/17/19 08/15/20 Omeprazole 20 mg PO QDAC 11/15/19 08/15/20 Cimetidine 400 mg PO BID 11/26/19 08/15/20 Estrogens, Conjugated Cream 0.5 gm VG QPM 02/02/20 08/15/20 [Premarin Cream] Aspirin [Lucila] 325 mg PO DAILY 08/15/20 08/15/20 Buprenorphine HCl/Naloxone HCl 2.5 tab SL QPM 08/15/20 08/15/20 [Suboxone 8-2 mg Sl tab] Cholecalciferol [Vitamin D3] 25 mcg PO DAILY 08/15/20 08/15/20 Furosemide [Lasix] 20 mg PO DAILY 08/15/20 08/15/20 Gabapentin [Neurontin] 200 mg PO QPM 08/15/20 08/15/20 Potassium Chloride [Klor-Con 10] 10 meq PO QPM 08/15/20 08/15/20 Propranolol [Inderal] 10 - 20 mg PO BID 08/15/20 08/15/20 Senna [Senokot] 8.6 mg PO BID 08/15/20 08/15/20 Ciprofloxacin [Cipro] 250 mg PO Q12H 3 Days #6 tablet 08/18/20 - PHYSICAL EXAM AT DISCHARGE General Appearance: positive: No acute distress, Alert Eyes Bilateral: positive: PERRL, EOMI ENT: positive: No signs of dehydration Neck: positive: No JVD, Trachea midline Respiratory: positive: Chest non-tender, No respiratory distress, Breath sounds nml. negative: Wheezes, Rales, Rhonchi Cardiovascular: positive: Regular rate & rhythm Abdomen: positive: Non-tender, No organomegaly, Nml bowel sounds, No distention. negative: Guarding, Rebound Back: positive: Nml inspection Skin: positive: Color nml, No rash, Other (bruise on right hand) Extremities: positive: Non-tender, Full ROM, Nml appearance, No pedal edema Neurologic/Psychiatric: positive: Oriented x3, Mood/affect nml - LABS Result Diagrams: 08/18/20 04:55 08/18/20 04:55 - TIME SPENT Time Spent in Discharge (Minutes): 20
--- NOTE | 2020-08-18 07:15 | Discharge Plan ---
Discharge Plan Problem Reviewed?: Yes Disposition: 06 Home Health Service Condition: Stable Prescriptions: Ciprofloxacin [Cipro] 250 mg PO Q12H 3 Days #6 tablet Diet: Regular Activity Restrictions: Activity as Tolerated Health Concerns: Admitted with complaint of weakness and confusion. Work-up included a urine analysis which indicated that you had a UTI. UA treated with Rocephin IV for 4 days. E. coli which is pansensitive grew on urine cultures. As a result you are being discharged on Cipro 250 mg p.o. twice daily for 3 days. You also complained of constipation for which you have been advised to increase fiber in your diet in the form of prune juice, vegetables, fruits and or Metamucil. You have also been advised to decrease your amount of opiate or pain medication intake and also to increase your amount of activity. You acknowledged and expressed understanding of this points. You are being discharged home with home health PT and nutrition. Plan of Treatment: Admitted with complaint of weakness and confusion. Work-up included a urine analysis which indicated that you had a UTI. UA treated with Rocephin IV for 4 days. E. coli which is pansensitive grew on urine cultures. As a result you are being discharged on Cipro 250 mg p.o. twice daily for 3 days. You also complained of constipation for which you have been advised to increase fiber in your diet in the form of prune juice, vegetables, fruits and or Metamucil. You have also been advised to decrease your amount of opiate or pain medication intake and also to increase your amount of activity. You acknowledged and expressed understanding of this points. You are being discharged home with home health PT and nutrition. Care Goals: Admitted with complaint of weakness and confusion. Work-up included a urine analysis which indicated that you had a UTI. UA treated with Rocephin IV for 4 days. E. coli which is pansensitive grew on urine cultures. As a result you are being discharged on Cipro 250 mg p.o. twice daily for 3 days. You also complained of constipation for which you have been advised to increase fiber in your diet in the form of prune juice, vegetables, fruits and or Metamucil. You have also been advised to decrease your amount of opiate or pain medication intake and also to increase your amount of activity. You acknowledged and expressed understanding of this points. You are being discharged home with home health PT and nutrition. Assessment: Admitted with complaint of weakness and confusion. Work-up included a urine analysis which indicated that you had a UTI. UA treated with Rocephin IV for 4 days. E. coli which is pansensitive grew on urine cultures. As a result you are being discharged on Cipro 250 mg p.o. twice daily for 3 days. You also complained of constipation for which you have been advised to increase fiber in your diet in the form of prune juice, vegetables, fruits and or Metamucil. You have also been advised to decrease your amount of opiate or pain medication intake and also to increase your amount of activity. You acknowledged and expressed understanding of this points. You are being discharged home with home health PT and nutrition. Follow-Up Care: Dietitian, Home Health - PT, Home Health - OT No Smoking: If you smoke, Please STOP! Call for help. Follow-up with: HANG MARSHALL ARNP [Primary Care Provider] -
[2020-08-18 07:38] VITALS: BP 144/76
[2020-08-18] MEDS ORDERED: NALOXONE HCL PO SCH (08:00)
[2020-08-18] MEDS ORDERED: BUPRENORPHINE HCL PO SCH (08:00)
[2020-08-18] MEDS: PRENATAL VITAMIN TABLET PO SCH (08:28)
[2020-08-18] MEDS: amLODIPine 5 MG TABLET PO SCH (08:28)
[2020-08-18] MEDS: SACCHAROMYCES BOULARDII 250 MG CAPSULE PO SCH (08:29)
[2020-08-18] MEDS: ASPIRIN 325 MG TABLET PO SCH (08:29)
[2020-08-18] MEDS: VENLAFAXINE 37.5 MG TABLET PO SCH (08:29)
[2020-08-18] MEDS: METOPROLOL SUCCINATE 50 MG TABLET PO SCH (08:30)
[2020-08-18] MEDS: PROPRANOLOL 10 MG TABLET PO SCH (08:30)
[2020-08-18] MEDS: ENOXAPARIN 30 MG/0.3 ML SYRINGE SUBQ SCH (08:37)
[2020-08-18] MEDS ORDERED: PATIENT OWN MED PO SCH (09:00)
[2020-08-18] MEDS: cefTRIAXone 2 GM in SODIUM CHLORIDE 0.9% MINIBAG 100 ML IV SCH (10:26)
--- NOTE | 2020-08-21 15:04 | XRAY Report ---
PROCEDURE: Chest 1 View X-Ray INDICATIONS: cough, fever TECHNIQUE: One view of the chest was acquired. COMPARISON: 08/15/2020 FINDINGS: Surgical changes and devices: None. Lungs and pleura: No pleural effusions or pneumothorax. Lungs are clear. Mediastinum: Mediastinal contours appear normal. Heart size is normal. Bones and chest wall: No suspicious bony lesions. Overlying soft tissues appear unremarkable. IMPRESSION: No acute cardiopulmonary findings Reviewed by: Adam Brar MD on 08/16/2020 10:12 AM PDT Approved by: Adam Brar MD on 08/16/2020 10:12 AM PDT Station ID: [id number]
== END 2020-08-18 13:34 | disposition home health service (06) | DRG 71 ==
LOC: EDBD → EDUNIT# → ED 00:16 → MS2 02:35
PROVIDERS: ADMIT Specialist; ATTEND Internal Medicine
DX: G93.41 Metabolic encephalopathy (principal); R41.0 Disorientation, unspecified; I10 Essential (primary) hypertension; N30.00 Acute cystitis without hematuria; F17.200 Nicotine dependence, unspecified, uncomplicated; N17.9 Acute kidney failure, unspecified; E87.0 Hyperosmolality and hypernatremia; B96.20 Unspecified Escherichia coli [E. coli] as the cause of diseases classified elsewhere; I12.9 Hypertensive chronic kidney disease with stage 1 through stage 4 chronic kidney disease, or unspecified chronic kidney disease; N18.30 Chronic kidney disease, stage 3 unspecified; M54.5 Low back pain; G89.29 Other chronic pain; Z86.718 Personal history of other venous thrombosis and embolism; Z87.440 Personal history of urinary (tract) infections; R15.9 Full incontinence of feces; R32 Unspecified urinary incontinence; Z20.822 Contact with and (suspected) exposure to COVID-19; E66.01 Morbid (severe) obesity due to excess calories; H53.47 Heteronymous bilateral field defects; R41.82 Altered mental status, unspecified; J44.9 Chronic obstructive pulmonary disease, unspecified; E86.0 Dehydration; E03.9 Hypothyroidism, unspecified; K59.00 Constipation, unspecified; Z87.891 Personal history of nicotine dependence; F31.9 Bipolar disorder, unspecified; M19.90 Unspecified osteoarthritis, unspecified site; Z79.899 Other long term (current) drug therapy
CPT/HCPCS: 36415; 51701; 71045; 76770; 80048; 80053; 80178; 81001; 83036; 83605; 83690; 83880; 84443; 85025; 87040; 87086; 87181; 87631; 92610; 97162; 97165; 97530; 99285; A9270; J1650; J7120; Q0162; 0202U; 81003

== ENCOUNTER 2020-08-28 15:58 | Emergency (ER) | payer MEDICARE, MEDICAID ==
[2020-08-28 17:32] LABS: BASOPHILS # (AUTO) 0.1 10^3/uL (0.0-0.1); BASOPHILS % (AUTO) 0.5 %; EOSINOPHILS # (AUTO) 0.3 10^3/uL (0.0-0.7); HCT - HEMATOCRIT 35.2 % (37.0-47.0); HGB - HEMOGLOBIN 10.8 g/dL (12.0-16.0); LYMPHOCYTES # (AUTO) 1.5 10^3/uL (1.5-3.5); LYMPHOCYTES % (AUTO) 13.4 %; MEAN CORPUSCULAR HEMOGLOBIN 28.8 pg (27.0-31.0); MEAN CORPUSCULAR HGB CONC 30.7 g/dL (32.0-36.0); MEAN CORPUSCULAR VOLUME 93.9 fL (81.0-99.0); MEAN PLATELET VOLUME 9.3 fL (7.9-10.8); MONOCYTES # (AUTO) 0.8 10^3/uL (0.0-1.0); NEUTROPHILS # (AUTO) 8.2 10^3/uL (1.5-6.6); NEUTROPHILS % (AUTO) 75.7 %; PLT - PLATELET COUNT 603 10^3/uL (130-450); RED BLOOD COUNT 3.75 10^6/uL (4.20-5.40); RED CELL DISTRIBUTION WIDTH 16.9 % (12.0-15.0); WHITE BLOOD COUNT 10.8 x10^3/uL (4.8-10.8)
[2020-08-28 17:42] LABS: CALCIUM 10.1 mg/dL (8.5-10.3); CREATININE 2.4 mg/dL (0.4-1.0)
[2020-08-28] MEDS ORDERED: IOPAMIDOL-300 100 ML VIAL ONE (17:42)
--- NOTE | 2020-08-28 17:42 | ED Physician Documentation ---
History of Present Illness - Stated complaint Stated Complaint: CONSTIPATION - Chief complaint Chief Complaint: Abd Pain - Additonal information Additional information: 62-year-old female presents emergency department with chief complaint of constipation for 3 weeks. She reports that she has been unable to have any bowel movement despite taking senna and MiraLAX daily. She is had no fevers or vomiting but is having increased abdominal distention and discomfort. She does report previous history of constipation usually alleviated with MiraLAX at home. Reports a colonoscopy about 5 years ago that showed polyps. She is attended by home caregiver. She is able to transition from bed to walker. Has an chronic indwelling Jose catheter secondary to recurrent urinary tract infections. Review of Systems Constitutional: denies: Fever, Chills Eyes: reports: Reviewed and negative Ears: reports: Reviewed and negative Nose: reports: Reviewed and negative Throat: reports: Reviewed and negative Cardiac: reports: Reviewed and negative Respiratory: reports: Reviewed and negative GI: reports: Abdominal Pain, Constipation. denies: Nausea, Vomiting, Hematemesis, Bloody / black stool : reports: Other (Chronic indwelling Jose catheter) Skin: reports: Reviewed and negative PD PAST MEDICAL HISTORY - Past Medical History Past Medical History: Yes Cardiovascular: Hypertension, High cholesterol, Deep vein thrombosis, Murmur Respiratory: Asthma, COPD, Shortness of breath Neuro: Peripheral neuropathy Endocrine/Autoimmune: Type 2 diabetes GI: GERD, Chronic constipation, Pancreatitis : Incontinence, Chronic bladder infection HEENT: None Psych: Anxiety, Bipolar disorder, Other Musculoskeletal: Osteoarthritis, Fatigue, Chronic back pain, Other Derm: Other - Past Surgical History Past Surgical History: Yes General: EGD, Colonoscopy Ortho: Knee replacement, Spine surgery /[employer]: section HEENT: Tonsil/Adenoidectomy - Present Medications Home Medications: Ambulatory Orders Medication Instructions Recorded Confirmed Levothyroxine Sodium 50 mcg PO QDAC #30 07/17/19 08/15/20 [place] Carbonate 300 mg PO DAILY #30 07/17/19 08/15/20 Metoprolol Succinate [Toprol Xl] 50 mg PO DAILY #30 07/17/19 08/15/20 Venlafaxine HCl 75 mg PO BID #60 07/17/19 08/15/20 gemfibroziL [Gemfibrozil] 600 mg PO BID #60 07/17/19 08/15/20 risperiDONE [Risperdal] 1 mg PO QPM #30 07/17/19 08/15/20 Omeprazole 20 mg PO QDAC 11/15/19 08/15/20 Cimetidine 400 mg PO BID 11/26/19 08/15/20 Estrogens, Conjugated Cream 0.5 gm VG QPM 02/02/20 08/15/20 [Premarin Cream] Aspirin [Lucila] 325 mg PO DAILY 08/15/20 08/15/20 Buprenorphine HCl/Naloxone HCl 2.5 tab SL QPM 08/15/20 08/15/20 [Suboxone 8-2 mg Sl tab] Cholecalciferol [Vitamin D3] 25 mcg PO DAILY 08/15/20 08/15/20 Furosemide [Lasix] 20 mg PO DAILY 08/15/20 08/15/20 Gabapentin [Neurontin] 200 mg PO QPM 08/15/20 08/15/20 Potassium Chloride [Klor-Con 10] 10 meq PO QPM 08/15/20 08/15/20 Propranolol [Inderal] 10 - 20 mg PO BID 08/15/20 08/15/20 Senna [Senokot] 8.6 mg PO BID 08/15/20 08/15/20 Ciprofloxacin [Cipro] 250 mg PO Q12H 3 Days #6 tablet 08/18/20 Saline Enema [Fleets Saline Enema] 133 ml RC DAILY #1 08/28/20 - Allergies Allergies/Adverse Reactions: Allergies Allergy/AdvReac Type Severity Reaction Status Date / Time NSAIDS (Non-Steroidal Allergy Mild Hives Verified 08/28/20 16:09 Anti-Inflamma lisinopril Allergy Unknown Verified 08/28/20 16:09 Sulfa (Sulfonamide AdvReac Mild Rash Verified 08/28/20 16:09 Antibiotics) - Social History Does the pt smoke?: Yes Smoking Status: Current every day smoker Does the pt drink ETOH?: No Does the pt have substance abuse?: No - Immunizations Immunizations are current?: Yes Immunizations: TDAP >10years/unknown - POLST Patient has POLST: No POLST Status: Full Code PD ED PE EXPANDED - General General: Alert, Disheveled, poorly kept (Poor hygiene ) - Cardiac Cardiac: Regular Rate, Radial strong equal, Pedal strong equal, Cap refill < 2 sec - Respiratory Respiratory: Clear to ausultation cynthia. No: Distress, Labored - Abdomen Abdomen: Decreased BS, Distended, Tender to palpation, Generalized/diffuse (no guarding or rebound) - Rectal Rectal: Normal Tone, Other (Large amount of hard impacted stool in the rectal vault. Partial disimpaction was achieved at the bedside.) - Extremities Extremities: Normal. No: Deformity, Tenderness - GCS Eye Opening: Spontaneous Motor: Abnormal Flexion Verbal: Oriented Total: 12 Results - Vitals Vitals: Vital Signs - 24 hr 08/28/20 08/28/20 16:04 19:04 Temperature 37.4 C 36.2 C L Heart Rate 77 60 Respiratory 18 18 Rate Blood Pressure 147/78 H 168/73 H O2 Saturation 97 98 Oxygen O2 Source [Without Activity] Room air O2 Source Room air - Labs Labs: Laboratory Tests 08/28/20 08/28/20 08/28/20 17:25 17:25 17:25 WBC 10.8 RBC 3.75 L Hgb 10.8 L Hct 35.2 L MCV 93.9 MCH 28.8 MCHC 30.7 L RDW 16.9 H Plt Count 603 H MPV 9.3 Neut # (Auto) 8.2 H Lymph # (Auto) 1.5 [place] # (Auto) 0.8 Eos # (Auto) 0.3 Baso # (Auto) 0.1 Absolute Nucleated RBC 0.00 Nucleated RBC % 0.0 Sodium 142 Potassium 4.0 Chloride 105 Carbon Dioxide 24 Anion Gap 13.0 BUN 38 H Creatinine 2.4 H Estimated GFR (MDRD) 20 L Glucose 106 H Calcium 10.1 Last Dose Date Not Reportable Last Dose Time Not Reportable [place] 0.96 - Rads (name of study) CT abd w/o Radiology: Final report received (Moderate constipation without obstruction. Hyperdense exophytic right renal focus suggestive of hyperdense cyst. It is noted and stable since 2019 with mild interval increase in size since 2019. 6-12 month follow up with dedicated ultrasound is recommended) PD MEDICAL DECISION MAKING - ED course Complexity details: reviewed results, re-evaluated patient, d/w patient ED course: 70-year-old female presents emergency department for evaluation of constipation. Reports no bowel movements for nearly 3 weeks. On exam she had a nonfocal generally tender abdomen. A rectal exam did reveal a moderate amount of hard impacted stool within the vault. I was able to only partially disimpact her. CT scan of the abdomen did show significant constipation. Given patient's history of acute renal chronic renal failure I do not feel that magnesium citrate would benefit her. I do recommend that she continue to take the MiraLAX at home. She will be given a fleets enema here in the emergency department and recommended to use fleets at home until she has 3-[address] adequate bowel movements. On CT findings there is no findings consistent with a bowel obstruction. In addition to that she has no fevers or vomiting. Patient advised to continue follow-up with her primary care providers emergent return precautions were discussed. Departure - Departure Disposition: Home, Self Care Clinical Impression: Renal cyst, right Constipation Qualifiers: Constipation type: other constipation type Qualified Code(s): K59.09 - Other constipation CKD (chronic kidney disease) Qualifiers: Chronic kidney disease stage: unspecified stage Qualified Code(s): N18.9 - Chronic kidney disease, unspecified Condition: Stable Record reviewed to determine appropriate education?: Yes Instructions: ED Constipation Follow-Up: HANG MARSHALL ARNP [Primary Care Provider] - Prescriptions: Saline Enema [Fleets Saline Enema] 133 ml RC DAILY #1 Comments: Annika you are seen in the emergency department today for constipation. The CT scan of your abdomen does show a moderate amount of fecal impaction. Because of your chronic kidney disease I do not recommend that you take the magnesium citrate. However you would benefit from using mineral fleets enemas at home daily over the next 3 to 4 days to help loosen the stool in your colon and rectum. If at any point you have fevers, uncontrolled vomiting suddenly severe or different abdominal pain please return to the emergency department. Improving your hydration will help with your constipation I also recommend that you continue to use the MiraLAX twice daily until you have 3-4 adequate bowel movements.
[2020-08-28 17:59] LABS: LITHIUM 0.96 mmol/L
[2020-08-28] MEDS ORDERED: SODIUM CHLORIDE 0.9% 1,000 ML IV STA (18:21)
[2020-08-28] MEDS ORDERED: MINERAL OIL ENEMA 133 ML BOTTLE RC STA (19:04)
--- NOTE | 2020-08-28 19:04 | CT Report ---
PROCEDURE: Abdomen/Pelvis WO INDICATIONS: constipation TECHNIQUE: Noncontrast 5 mm thick sections acquired from the diaphragms to the symphysis. 5 mm coronal and sagi ttal reformats were then performed. For radiation dose reduction, the following was used: automated exposure control, adjustment of mA and/or kV according to patient size. COMPARISON: CT abdomen pelvis 02/01/2020, 02/01/14, 06/14/2016, 12/15/2018 FINDINGS: Image quality: Excellent. ABDOMEN: Lung bases: Small cluster of nodular opacities are noted in the posterior lateral right lower lobe se en on series 5 images 23 through 29. Heart size is normal. Solid organs: Liver and spleen are normal in size. Gallbladder has been removed. Pancreas is ch[place] in contours. No adrenal nodules. Kidneys are normal in size, without hydronephrosis or nephrolith iasis. Hyperdense exophytic focus is noted along the inferior pole of the right kidney, unchanged si nce 2019 and mildly increased in size since initial visualization on 12/15/2018, at which time it yuni ured 4 mm compared to 9 mm on current exam.. Low-attenuation cysts are present bilaterally, unchanged . Peritoneum and bowel: Unenhanced bowel loops demonstrate normal wall thickness and caliber. No free fluid or air. Moderate colonic stool is present without obstruction. Prominent stool is present in the rectal vault. Nodes and vessels: No retroperitoneal or mesenteric adenopathy by size criteria. Aorta and inferior vena cava are normal in caliber. Miscellaneous: Fat-containing umbilical hernia is present. PELVIS: Genitourinary: Bladder wall thickness is normal. Miscellaneous: No inguinal hernias or adenopathy. Bones: No suspicious bony lesions. No vertebral body compression fractures. IMPRESSION: 1. Moderate constipation without obstruction. 2. Hyperdense exophytic right renal focus suggestive of hyperdense cyst. It is noted and stable since 2019 with mild interval increase in size since 2019. 6-12 month focal dedicated ultrasound of this r egion is recommended for additional follow-up of stability. Reviewed by: Renate Cardozo MD on 08/28/2020 6:03 PM AKESTER Approved by: Renate Cardozo MD on 08/28/2020 6:03 PM AKDT Station ID: [id number]
[2020-08-28 19:05] VITALS: BP 168/73
== END 2020-08-28 20:18 | disposition home or self-care (01) ==
LOC: ED 15:58
DX: K59.09 Other constipation (principal); N28.1 Cyst of kidney, acquired; I12.9 Hypertensive chronic kidney disease with stage 1 through stage 4 chronic kidney disease, or unspecified chronic kidney disease; E11.22 Type 2 diabetes mellitus with diabetic chronic kidney disease; N18.9 Chronic kidney disease, unspecified; Z86.010 Personal history of colon polyps; Z79.82 Long term (current) use of aspirin; F17.200 Nicotine dependence, unspecified, uncomplicated
CPT/HCPCS: 36415; 74176; 80048; 80178; 85025; 99284; A9270

== ENCOUNTER 2020-09-04 14:25 | Outpatient (CLI) | payer MEDICARE, MEDICAID ==
--- NOTE | 2020-09-05 12:20 | Mammography Report ---
BILATERAL DIGITAL SCREENING MAMMOGRAM 3D/2D WITH EXAGGERATED CC: 09/04/2020 CLINICAL: Routine screening. Comparison is made to exams dated: 03/21/2013 mammogram and 03/23/2012 mammogram - [facility]. The tissue of both breasts is heterogeneously dense. This may lower the sensitivity of mammography. No significant masses, calcifications, or other findings are seen in either breast. There has been no significant interval change. IMPRESSION: NEGATIVE There is no mammographic evidence of malignancy. A 1 year screening mammogram is recommended. This exam was interpreted at Station ID: [id number]. NOTE: For mammograms, a report in lay terms will be sent to the patient. Approximately 15% of breast malignancies will not be visualized mammographically. In the management of a palpable breast mass, a negative mammogram must not discourage biopsy of a clinically suspicious lesion. Electronically Signed By: Refugio Deleon M.D. aty/penrad:09/04/2020 15:39:16 ACR BI-RADS Category 1: Negative [id number] PARENCHYMAL PATTERN: (D) - The breast(s) demonstrate(s) heterogeneously dense fibroglandular lidya ramos. BI-RADS CATEGORY: (1) - 1 RECOMMENDATION: (ANNUAL) - Recommend routine annual screening mammography. [id number] 1 year screening LATERALITY: (B)
== END 2020-09-04 14:26 | disposition home or self-care (01) ==
LOC: DI.S 14:25
PROVIDERS: ATTEND Nurse Practitioner Family
DX: Z12.31 Encounter for screening mammogram for malignant neoplasm of breast (principal)

== ENCOUNTER 2020-09-05 13:21 | Outpatient (CLI) | payer MEDICARE, MEDICAID ==
--- NOTE | 2020-09-06 08:23 | Ultrasound Report ---
PROCEDURE: Retroperitoneal INDICATIONS: URINARY RETENTION TECHNIQUE: Real-time scanning was performed of the kidneys and bladder, with image documentation. COMPARISON: CT abdomen/pelvis with 2020 FINDINGS: Kidneys: Kidneys are normal in size. Right kidney measures 10.8 cm long; left kidney measures 9.1 c m long. Right renal cortical thickness is 1.2 cm; left renal cortical thickness is 1.0 cm. No solid masses, hydronephrosis, or nephrolithiasis. Bilateral simple renal cysts are seen, measuring up to 2.3 x 1.9 x 1.9 cm on the right and 2.4 x 2.1 x 2.1 cm on the left. Bladder: The bladder is decompressed by a Jose catheter. Apparent bladder wall thickening is most li courtney related to decompression. Ureteral jets are not definitely visualized. IMPRESSION: 1. Bladder is decompressed by a Jose catheter. 2. Multiple simple renal cysts are seen bilaterally. No solid renal mass is identified. Reviewed by: Lauro Herrera MD on 09/06/2020 8:22 AM PDT Approved by: Lauro Herrera MD on 09/06/2020 8:22 AM PDT Station ID: [id number]
== END 2020-09-05 13:22 | disposition home or self-care (01) ==
LOC: DI 13:21
PROVIDERS: ATTEND Physician Assistant Medical
DX: R33.9 Retention of urine, unspecified (principal); N28.1 Cyst of kidney, acquired

== ENCOUNTER 2020-09-16 00:14 | Outpatient (CLI) | payer MEDICARE, MEDICAID | END 2020-09-16 00:15 | disposition EMS.NT | LOC: EMS 00:14 | DX: T83.091A Other mechanical complication of indwelling urethral catheter, initial encounter (principal) ==

== ENCOUNTER 2020-10-08 07:54 | Outpatient (CLI) | payer MEDICARE, MEDICAID | END 2020-10-08 07:55 | disposition EMS.NT | LOC: EMS 07:54 | DX: Z76.89 Persons encountering health services in other specified circumstances (principal) ==

== ENCOUNTER 2020-12-23 21:21 | Outpatient (CLI) | payer MEDICARE, MEDICAID | END 2020-12-23 21:22 | disposition EMS.NT | LOC: EMS 21:21 | DX: R63.0 Anorexia (principal); Z76.89 Persons encountering health services in other specified circumstances ==

== ENCOUNTER 2020-12-26 10:45 | Outpatient (CLI) | payer MEDICARE, MEDICAID ==
--- NOTE | 2020-12-26 12:54 | XRAY Report ---
PROCEDURE: Chest 2 View X-Ray INDICATIONS: COUGH TECHNIQUE: 2 view(s) of the chest. COMPARISON: 08/16/2020 FINDINGS: Surgical changes and devices: None. Lungs: Lungs are clear. The lung apices are not included on the examination secondary to difficulty w ith patient positioning (wheelchair) Pleura: No pleural effusions or pneumothorax. Mediastinum: Mediastinal contours are normal. Heart size is normal. Bones and chest wall: No suspicious bony abnormalities. Soft tissues appear unremarkable. IMPRESSION: No acute disease. Reviewed by: Smooth Miller MD on 12/26/2020 12:53 PM PDT Approved by: Smooth Miller MD on 12/26/2020 12:53 PM PDT Station ID: [id number]
[2020-12-26 15:20] LABS: BASOPHILS # (AUTO) 0.1 10^3/uL (0.0-0.1); BASOPHILS % (AUTO) 0.5 %; EOSINOPHILS # (AUTO) 0.2 10^3/uL (0.0-0.7); EOSINOPHILS % (AUTO) 0.9 %; HCT - HEMATOCRIT 39.8 % (37.0-47.0); HGB - HEMOGLOBIN 12.2 g/dL (12.0-16.0); LYMPHOCYTES # (AUTO) 1.3 10^3/uL (1.5-3.5); MEAN CORPUSCULAR HEMOGLOBIN 29.5 pg (27.0-31.0); MEAN CORPUSCULAR HGB CONC 30.7 g/dL (32.0-36.0); MEAN CORPUSCULAR VOLUME 96.4 fL (81.0-99.0); MONOCYTES # (AUTO) 0.9 10^3/uL (0.0-1.0); MONOCYTES % (AUTO) 4.1 %; NEUTROPHILS # (AUTO) 18.6 10^3/uL (1.5-6.6); NEUTROPHILS % (AUTO) 88.1 %; PLT - PLATELET COUNT 391 10^3/uL (130-450); RED BLOOD COUNT 4.13 10^6/uL (4.20-5.40); RED CELL DISTRIBUTION WIDTH 15.3 % (12.0-15.0); WHITE BLOOD COUNT 21.1 x10^3/uL (4.8-10.8)
[2020-12-26 15:35] LABS: THYROID STIMULATING HORMONE 2.47 uIU/mL (0.34-5.60)
[2020-12-26 15:37] LABS: SLIDE REVIEW? Indicated
[2020-12-26 15:52] LABS: ALBUMIN 3.8 g/dL (3.2-5.5); ALBUMIN/GLOBULIN RATIO 0.9 (1.0-2.2); ALKALINE PHOSPHATASE 192 IU/L (42-121); ALT ALANINE AMINOTRANSFERASE < 10 IU/L (10-60); AST ASPARTATE AMINOTRANSFERASE 19 IU/L (10-42); BILIRUBIN,TOTAL 0.6 mg/dL (0.2-1.0); BUN - BLOOD UREA NITROGEN 29 mg/dL (6-20); CALCIUM 10.1 mg/dL (8.5-10.3); CARBON DIOXIDE - CO2 22 mmol/L (21-32); CHLORIDE 100 mmol/L (101-111); CREATININE 3.2 mg/dL (0.4-1.0); GFR - MDRD 14 (>89); GLUCOSE 101 mg/dL (70-100); POTASSIUM 3.9 mmol/L (3.5-5.0); SODIUM 140 mmol/L (135-145)
[2020-12-26 17:17] LABS: PLATELET ESTIMATE, MANUAL NORMAL (130-450,000) (NORMAL); PLATELET MORPHOLOGY 1+ LARGE PLATELETS (NORMAL); RBC MORPHOLOGY (MULTIPLE) NORMAL APPEARANCE (NORMAL)
[2020-12-26 20:55] LABS: ESTIMATED AVERAGE GLUCOSE 117 mg/dL (70-100); HEMOGLOBIN A1c% 5.7 % (4.27-6.07)
== END 2020-12-26 10:46 | disposition home or self-care (01) ==
LOC: DI.S 10:45
PROVIDERS: ATTEND Internal Medicine
DX: R05 Cough (principal); I10 Essential (primary) hypertension; E78.1 Pure hyperglyceridemia; E03.9 Hypothyroidism, unspecified
CPT/HCPCS: 36415; 80053; 83036; 83880; 84443; 85025

== ENCOUNTER 2020-12-27 09:08 | Outpatient (CLI) | payer MEDICARE, MEDICAID | END 2020-12-27 09:09 | disposition critical access hospital (66) | LOC: EMS 09:08 | DX: R53.83 Other fatigue (principal); R11.2 Nausea with vomiting, unspecified; R19.7 Diarrhea, unspecified; R06.09 Other forms of dyspnea | CPT/HCPCS: A0425; A0427 ==

== ENCOUNTER 2020-12-27 09:40 | Inpatient (IN) | payer MEDICARE, MEDICAID ==
--- NOTE | 2020-12-27 09:46 | ED Physician Documentation ---
PD HPI NVD - Stated complaint Stated Complaint: WEAKNESS - History obtained from History obtained from: Patient - History of Present Illness Timing - onset: How many days ago (5 days ofShe has had general malaise, nausea, decreased appetite and intake and some episodes of vomiting. No diarrhea. She states her urine from her Chen is darker and cloudier than usual. No abdominal pain. No fevers per se.) Timing - duration: Days Timing - details: Gradual onset, Still present Associated symptoms: Loss of appetite, Other (nausea and vomiting.). No: Fever, Abdominal pain Contributing factors: No: Sick contact, Recent antibiotics, Diabetes Similar symptoms before: Diagnosis (UTIs/ kidney infections.) Recently seen: Clinic (Her primary care Dr. Malagon called and states he had talked with the patient yesterday and did outpatient labs that showed elevated creatinine and WBC. He is concerned about kidney infection and dehydration. Refer the patient to the ER and was coming by EMS.) Review of Systems Constitutional: reports: Myalgias. denies: Fever, Chills Nose: denies: Rhinorrhea / runny nose, Congestion Throat: denies: Sore throat Cardiac: denies: Chest pain / pressure, Palpitations Respiratory: denies: Dyspnea, Cough GI: reports: Nausea, Vomiting. denies: Abdominal Pain, Constipation, Diarrhea : reports: Other (darker and cloudier urine from chen over baseline.) Skin: denies: Rash Neurologic: reports: Generalized weakness, Other (She is typically mainly bedbound with needing assistance for getting up. Has a indwelling Chen because of that. Notes increased weakness over baseline last 4 to 5 days.). 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 HEENT: Tonsil/Adenoidectomy - Present Medications Home Medications: Ambulatory Orders Medication Instructions Recorded Confirmed Levothyroxine Sodium 50 mcg PO QDAC #30 07/17/19 08/15/20 [place] Carbonate 300 mg PO DAILY #30 07/17/19 08/15/20 Metoprolol Succinate [Toprol Xl] 50 mg PO DAILY #30 07/17/19 08/15/20 Venlafaxine HCl 75 mg PO BID #60 07/17/19 08/15/20 gemfibroziL [Gemfibrozil] 600 mg PO BID #60 07/17/19 08/15/20 risperiDONE [Risperdal] 1 mg PO QPM #30 07/17/19 08/15/20 Omeprazole 20 mg PO QDAC 11/15/19 08/15/20 Cimetidine 400 mg PO BID 11/26/19 08/15/20 Estrogens, Conjugated Cream 0.5 gm VG QPM 02/02/20 08/15/20 [Premarin Cream] Aspirin [Lucila] 325 mg PO DAILY 08/15/20 08/15/20 Buprenorphine HCl/Naloxone HCl 2.5 tab SL QPM 08/15/20 08/15/20 [Suboxone 8-2 mg Sl tab] Cholecalciferol [Vitamin D3] 25 mcg PO DAILY 08/15/20 08/15/20 Furosemide [Lasix] 20 mg PO DAILY 08/15/20 08/15/20 Gabapentin [Neurontin] 200 mg PO QPM 08/15/20 08/15/20 Potassium Chloride [Klor-Con 10] 10 meq PO QPM 08/15/20 08/15/20 Propranolol [Inderal] 10 - 20 mg PO BID 08/15/20 08/15/20 Senna [Senokot] 8.6 mg PO BID 08/15/20 08/15/20 Ciprofloxacin [Cipro] 250 mg PO Q12H 3 Days #6 tablet 08/18/20 Saline Enema [Fleets Saline Enema] 133 ml RC DAILY #1 08/28/20 Nizatidine 300 mg PO DAILY 12/27/20 Pravastatin [Pravachol] 20 mg PO QPM 12/27/20 metFORMIN [Glucophage] 1,000 mg PO BID 12/27/20 - Allergies Allergies/Adverse Reactions: Allergies Allergy/AdvReac Type Severity Reaction Status Date / Time NSAIDS (Non-Steroidal Allergy Mild Hives Verified 08/28/20 16:09 Anti-Inflamma acetaminophen Allergy Hives Verified 12/27/20 10:11 lisinopril Allergy Unknown Verified 08/28/20 16:09 Sulfa (Sulfonamide AdvReac Mild Rash Verified 08/28/20 16:09 Antibiotics) - Social History Does the pt smoke?: Yes Smoking Status: Current every day smoker Does the pt drink ETOH?: No Does the pt have substance abuse?: No - Immunizations Immunizations are current?: Yes Immunizations: TDAP >10years/unknown - POLST Patient has POLST: No POLST Status: Full Code PD ED PE NORMAL - Vitals Vital signs reviewed: Yes - General General: Alert and oriented X 3, Well developed/nourished - HEENT HEENT: Pharynx benign. No: Moist mucous membranes - Neck Neck: Supple, no meningeal sign, No adenopathy - Cardiac Cardiac: RRR, No murmur - Respiratory Respiratory: Clear bilaterally - Abdomen Abdomen: Soft, Non tender, Non distended. No: Normal bowel sounds (diminished) - Female Female : Deferred - Rectal Rectal: Deferred - Back Back: No spinal TTP, Other (left CVA tender) - Derm Derm: Normal color, Warm and dry, No rash - Neuro Neuro: Alert and oriented X 3, No motor deficit (Localized motor deficit. She does have general weakness with poor ability to lift legs. Her arms are reasonably strength.), Normal speech Eye Opening: Spontaneous Motor: Obeys Commands Verbal: Oriented GCS Score: 15 Results - Vitals Vitals: Vital Signs - 24 hr 12/27/20 12/27/20 12/27/20 09:41 10:23 10:43 Temperature 35.8 C L Heart Rate 61 62 62 Respiratory 18 11 L 13 Rate Blood Pressure 142/110 H 127/57 L O2 Saturation 99 99 100 Oxygen O2 Source [Without Activity] Room air O2 Source Room air - Labs Labs: Laboratory Tests 12/27/20 12/27/20 12/27/20 09:58 10:14 10:14 WBC 13.0 H RBC 3.68 L Hgb 10.9 L Hct 35.3 L MCV 95.9 MCH 29.6 MCHC 30.9 L RDW 14.9 Plt Count 317 MPV 10.8 Neut # (Auto) 10.6 H Lymph # (Auto) 1.0 L [place] # (Auto) 0.8 Eos # (Auto) 0.4 Baso # (Auto) 0.1 Absolute Nucleated RBC 0.00 Nucleated RBC % 0.0 Sodium 138 Potassium 3.7 Chloride 100 L Carbon Dioxide 23 Anion Gap 15.0 H BUN 32 H Creatinine 3.1 H Estimated GFR (MDRD) 15 L Glucose 103 H Lactic Acid 2.9 H Calcium 9.4 Magnesium 2.3 Total Bilirubin 0.7 AST 16 ALT < 10 L Alkaline Phosphatase 175 H Total Protein 7.2 Albumin 3.5 Globulin 3.7 Albumin/Globulin Ratio 0.9 L Lipase 30 Urine Color Urine Clarity Urine pH Ur Specific [place] Urine Protein Urine Glucose (UA) Urine Ketones Urine Occult Blood Urine Nitrite Urine Bilirubin Urine Urobilinogen Ur Leukocyte Esterase Urine RBC Urine WBC Ur Squamous Epith Cells Urine Bacteria Ur Microscopic Review Urine Culture Comments Nasal Adenovirus (PCR) Nasal B. parapertussis DNA (PCR) Nasal Coronavir 229E PCR Nasal Coronavir HKU1 PCR Nasal Coronavir NL63 PCR Nasal Coronavir OC43 PCR Nasal Enterovir/Rhinovir PCR Nasal Influenza B PCR Nasal Influenza A PCR Nasal Parainfluen 1 PCR Nasal Parainfluen 2 PCR Nasal Parainfluen 3 PCR Nasal Parainfluen 4 PCR Nasal RSV (PCR) Nasal B.pertussis DNA PCR Nasal C.pneumoniae (PCR) Misael Human Metapneumo PCR Nasal M.pneumoniae (PCR) Nasal SARS-CoV-2 (PCR) 12/27/20 12/27/20 10:14 10:14 WBC RBC Hgb Hct MCV MCH MCHC RDW Plt Count MPV Neut # (Auto) Lymph # (Auto) [place] # (Auto) Eos # (Auto) Baso # (Auto) Absolute Nucleated RBC Nucleated RBC % Sodium Potassium Chloride Carbon Dioxide Anion Gap BUN Creatinine Estimated GFR (MDRD) Glucose Lactic Acid Calcium Magnesium Total Bilirubin AST ALT Alkaline Phosphatase Total Protein Albumin Globulin Albumin/Globulin Ratio Lipase Urine Color YELLOW Urine Clarity CLOUDY Urine pH 6.0 Ur Specific [place] <=1.005 Urine Protein 30 H Urine Glucose (UA) NEGATIVE Urine Ketones NEGATIVE Urine Occult Blood SMALL H Urine Nitrite POSITIVE H Urine Bilirubin NEGATIVE Urine Urobilinogen 0.2 (NORMAL) Ur Leukocyte Esterase MODERATE H Urine RBC 0-5 Urine WBC >25 H Ur Squamous Epith Cells RARE Squamous Urine Bacteria Moderate H Ur Microscopic Review INDICATED Urine Culture Comments INDICATED Nasal Adenovirus (PCR) NOT DETECTED Nasal B. parapertussis DNA (PCR) NOT DETECTED Nasal Coronavir 229E PCR NOT DETECTED Nasal Coronavir HKU1 PCR NOT DETECTED Nasal Coronavir NL63 PCR NOT DETECTED Nasal Coronavir OC43 PCR NOT DETECTED Nasal Enterovir/Rhinovir PCR NOT DETECTED Nasal Influenza B PCR NOT DETECTED Nasal Influenza A PCR NOT DETECTED Nasal Parainfluen 1 PCR NOT DETECTED Nasal Parainfluen 2 PCR NOT DETECTED Nasal Parainfluen 3 PCR NOT DETECTED Nasal Parainfluen 4 PCR NOT DETECTED Nasal RSV (PCR) NOT DETECTED Nasal B.pertussis DNA PCR NOT DETECTED Nasal C.pneumoniae (PCR) NOT DETECTED Mis[place] Human Metapneumo PCR NOT DETECTED Nasal M.pneumoniae (PCR) NOT DETECTED Nasal SARS-CoV-2 (PCR) NOT DETECTED PD MEDICAL DECISION MAKING - ED course Complexity details: reviewed results, considered differential (She has had nausea with some vomiting and decreased oral intake. She does sound dehydrated. Her output by the Chen is significantly cloudy with clumps and she has some flank pain as well. Seems consistent with urinary tract infection. Chest x-ray is clear without any signs of pneumonia.), d/w patient Departure - Departure Disposition: ED Place in Observation Clinical Impression: Dehydration, VICKIE (acute kidney injury) UTI (urinary tract infection) Qualifiers: Urinary tract infection type: catheter-associated UTI Indwelling urinary catheter type: indwelling urethral catheter Encounter type: initial encounter Qualified Code(s): T83.511A - Infection and inflammatory reaction due to indwelling urethral catheter, initial encounter; N39.0 - Urinary tract infection, site not specified Condition: Stable Record reviewed to determine appropriate education?: Yes
[2020-12-27] MEDS ORDERED: ONDANSETRON 4 MG/2 ML VIAL IVP STA (09:58)
[2020-12-27] MEDS ORDERED: SODIUM CHLORIDE 0.9% 1,000 ML IV STA ×2 (09:58→10:41)
--- NOTE | 2020-12-27 10:24 | XRAY Report ---
PROCEDURE: Chest 1 View X-Ray INDICATIONS: chest pain TECHNIQUE: One view of the chest was acquired. COMPARISON: Chest radiographs 12/26/2020, 08/16/2020 FINDINGS: Surgical changes and devices: None. Lungs and pleura: No pleural effusions or pneumothorax. Lungs are clear. The medial lung apices are obscured by overlying structures. Mediastinum: Mediastinal contours appear normal. Heart size is normal. Bones and chest wall: No suspicious bony lesions. Overlying soft tissues appear unremarkable. IMPRESSION: No acute cardiopulmonary abnormality. Reviewed by: Lauro Herrera MD on 12/27/2020 10:23 AM PDT Approved by: Lauro Herrera MD on 12/27/2020 10:23 AM PDT Station ID: [id number]
[2020-12-27 10:31] LABS: BASOPHILS # (AUTO) 0.1 10^3/uL (0.0-0.1); BASOPHILS % (AUTO) 0.5 %; EOSINOPHILS # (AUTO) 0.4 10^3/uL (0.0-0.7); EOSINOPHILS % (AUTO) 3.2 %; HCT - HEMATOCRIT 35.3 % (37.0-47.0); HGB - HEMOGLOBIN 10.9 g/dL (12.0-16.0); LYMPHOCYTES % (AUTO) 7.9 %; MEAN CORPUSCULAR HEMOGLOBIN 29.6 pg (27.0-31.0); MEAN CORPUSCULAR HGB CONC 30.9 g/dL (32.0-36.0); MEAN CORPUSCULAR VOLUME 95.9 fL (81.0-99.0); MEAN PLATELET VOLUME 10.8 fL (7.9-10.8); MONOCYTES # (AUTO) 0.8 10^3/uL (0.0-1.0); MONOCYTES % (AUTO) 5.9 %; NEUTROPHILS # (AUTO) 10.6 10^3/uL (1.5-6.6); NEUTROPHILS % (AUTO) 82.1 %; PLT - PLATELET COUNT 317 10^3/uL (130-450); RED BLOOD COUNT 3.68 10^6/uL (4.20-5.40); RED CELL DISTRIBUTION WIDTH 14.9 % (12.0-15.0)
[2020-12-27 10:40] LABS: BILIRUBIN,URINE NEGATIVE (NEGATIVE); GLUCOSE, URINE (UA) NEGATIVE (NEGATIVE); KETONES,URINE (UA) NEGATIVE (NEGATIVE); LEUKOCYTE ESTERASE, URINE MODERATE (NEGATIVE); NITRITE,URINE POSITIVE (NEGATIVE); OCCULT BLOOD,URINE SMALL (NEGATIVE); PROTEIN,URINE 30 mg/dL (NEGATIVE); UROBILINOGEN,URINE 0.2 (NORMAL) E.U./dL (NORMAL)
[2020-12-27] MEDS ORDERED: cefTRIAXone 1 GM VIAL IVP STA (10:42)
[2020-12-27 10:46] LABS: ALBUMIN 3.5 g/dL (3.2-5.5); ALBUMIN/GLOBULIN RATIO 0.9 (1.0-2.2); ALKALINE PHOSPHATASE 175 IU/L (42-121); ALT ALANINE AMINOTRANSFERASE < 10 IU/L (10-60); AST ASPARTATE AMINOTRANSFERASE 16 IU/L (10-42); BILIRUBIN,TOTAL 0.7 mg/dL (0.2-1.0); BUN - BLOOD UREA NITROGEN 32 mg/dL (6-20); CALCIUM 9.4 mg/dL (8.5-10.3); CARBON DIOXIDE - CO2 23 mmol/L (21-32); CHLORIDE 100 mmol/L (101-111); CREATININE 3.1 mg/dL (0.4-1.0); GFR - MDRD 15 (>89); GLUCOSE 103 mg/dL (70-100); LIPASE 30 U/L (22-51); MAGNESIUM 2.3 mg/dL (1.7-2.8); POTASSIUM 3.7 mmol/L (3.5-5.0); SODIUM 138 mmol/L (135-145); TOTAL PROTEIN 7.2 g/dL (6.7-8.2)
[2020-12-27 10:48] LABS: CLARITY,URINE CLOUDY (CLEAR)
[2020-12-27 10:51] LABS: BACTERIA,URINE Moderate /HPF (None Seen); RBC,URINE 0-5 /HPF (0-5); SQUAMOUS EPITHELIAL CELL,UR RARE Squamous (<= Few); WBC,URINE >25 /HPF (0-5)
[2020-12-27 11:25] LABS: B. PARAPERTUSSIS- RESP PCR PAN NOT DETECTED; B. PERTUSSIS- RESP PCR PANEL NOT DETECTED; C. PNEUMONIAE- RESP PCR PANEL NOT DETECTED; CORONAVIRUS 229E-RESP PCR NOT DETECTED; CORONAVIRUS HKU1-RESP PCR NOT DETECTED; CORONAVIRUS NL63-RESP PCR NOT DETECTED; CORONAVIRUS OC43-RESP PCR NOT DETECTED; HUMAN METAPNEUMOVIRUS NOT DETECTED; INFLUENZA A- RESP PCR PANEL NOT DETECTED; INFLUENZA B - RESP PCR PANEL NOT DETECTED; M. PNEUMONIAE- RESP PCR PANEL NOT DETECTED; PARAINFLUENZA VIRUS 1 NOT DETECTED; PARAINFLUENZA VIRUS 2 NOT DETECTED; PARAINFLUENZA VIRUS 3 NOT DETECTED; PARAINFLUENZA VIRUS 4 NOT DETECTED; RHINOVIRUS/ENTEROVIRUS NOT DETECTED; RSV- RESP PCR PANEL NOT DETECTED; SARS-CoV-2 -RESP PCR PANEL NOT DETECTED
[2020-12-27] MEDS ORDERED: PROMETHAZINE 25 MG/1 ML VIAL IM PRN (12:11)
[2020-12-27] MEDS ORDERED: ONDANSETRON ODT 4 MG TABLET TL PRN (12:11)
--- NOTE | 2020-12-27 14:23 | PHARMACY PROGRESS NOTE ---
- Best Possible Medication History Admit Date and Time: 12/27/20 1211 Processed by: Pharmacy Medication History completed: Yes Patient Interview: Completed (BOTH PATIENT AND ABLE TO CONFIRM HOME MEDICATIONS) As the person ultimately responsible for medication therapy, providers are able to order a medication from an existing home medication list in [facility] via the "Reconcile Routine" prior to Confirmation of that medication by technical customer support specialist. Such practice is discouraged except when the physician, in their clinical judgment, deems that a medical need exists for a medication without regard to previous use.
[2020-12-27] MEDS: SODIUM CHLORIDE 0.9% 1,000 ML IV SCH (14:27)
--- NOTE | 2020-12-27 14:35 | HISTORY & PHYSICAL EXAMINATION ---
Chief Complaint - Chief Complaint Chief Complaint: Nausea, vomiting History of Present Illness - Admitted From Admitted From:: Emergency department - History Obtained From Records Reviewed: Emergency department records History obtained from: Patient Exam Limitations: None - History of Present Illness HPI Comment/Other: Patient is a 70-year-old female with past medical history of Chronic indwelling Jose catheter secondary to urinary retention, hypertension, peripheral neuropathy, COPD, diet-controlled type 2 diabetes mellitus, anxiety disorder, bipolar disorder, hyperlipidemia, chronic pain syndrome, obesity, tobacco abuse, who presented to the emergency department with 5-day history of nausea vomiting and 1 day history of diarrhea since resolved. Patient denied any specific urinary tract symptoms including dysuria and due to her Jose catheter, cannot measure for nocturia, increased urinary frequency, hesitancy, etc. She denied history of fever. Patient was evaluated in the ED for the symptoms and found to have urinalysis consistent with UTI. Her WBC was 13.0 suggestive of infection, creatinine was 3.1 and baseline creatinine is closer to 1.8 suggestive of VICKIE. Given poor p.o. intake, acute kidney injury secondary to dehydration with nausea vomiting and diarrhea, hospitalist admission was requested for the treatment of acute urinary tract infection with VICKIE. History - Past Medical History Cardiovascular: reports: Hypertension, High cholesterol, Deep vein thrombosis, Murmur Respiratory: reports: Asthma, COPD, Shortness of breath Neuro: reports: Peripheral neuropathy Endocrine/Autoimmune: reports: Type 2 diabetes GI: reports: GERD, Chronic constipation, Pancreatitis : reports: Incontinence, Chronic bladder infection HEENT: reports: None Psych: reports: Anxiety, Bipolar disorder, Other Musculoskeletal: reports: Osteoarthritis, Fatigue, Chronic back pain, Other Derm: reports: Other MRSA Hx?: No - Past Surgical History General: reports: EGD, Colonoscopy Ortho: reports: Knee replacement, 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 Living Situation: With spouse/s.o. Social History Notes: She smoked 1ppd. Uses CBD cannabis oil sublingual. She does not drink alcohol - Substance History Use: Uses substance without health or social issues: Tobacco (hx) - POLST Patient has POLST: No POLST Status: Full Code Meds/Allgy - Home Medications Home Medications: Ambulatory Orders Medication Instructions Recorded Confirmed Levothyroxine Sodium 50 mcg PO QDAC #30 07/17/19 12/27/20 [place] Carbonate 300 mg PO DAILY #30 07/17/19 12/27/20 Metoprolol Succinate [Toprol Xl] 50 mg PO DAILY #30 07/17/19 12/27/20 Venlafaxine HCl 75 mg PO BID #60 07/17/19 12/27/20 gemfibroziL [Gemfibrozil] 600 mg PO BID #60 07/17/19 12/27/20 risperiDONE [Risperdal] 1 mg PO QPM #30 07/17/19 12/27/20 Omeprazole 20 mg PO QDAC 11/15/19 12/27/20 Buprenorphine HCl/Naloxone HCl 1 tab SL QPM 08/15/20 12/27/20 [Suboxone 8-2 mg Sl tab] Cholecalciferol [Vitamin D3] 25 mcg PO DAILY 08/15/20 12/27/20 Furosemide [Lasix] 20 mg PO DAILY 08/15/20 12/27/20 Gabapentin [Neurontin] 100 mg PO QPM 08/15/20 12/27/20 Propranolol [Inderal] 20 mg PO DAILY 08/15/20 12/27/20 Aspirin [Aspirin EC] 81 mg PO DAILY 12/27/20 12/27/20 Buprenorphine HCl/Naloxone HCl 0.5 tab PO 1200 12/27/20 12/27/20 [Suboxone 8-2 mg Tab] Buprenorphine HCl/Naloxone HCl 1 tab PO DAILY 12/27/20 12/27/20 [Suboxone 8-2 mg Tab] Propranolol [Inderal] 10 mg PO QPM 12/27/20 12/27/20 - Allergies Allergies/Adverse Reactions: Allergies Allergy/AdvReac Type Severity Reaction Status Date / Time NSAIDS (Non-Steroidal Allergy Mild Hives Verified 08/28/20 16:09 Anti-Inflamma acetaminophen Allergy Hives Verified 12/27/20 10:11 lisinopril Allergy Unknown Verified 08/28/20 16:09 Sulfa (Sulfonamide AdvReac Mild Rash Verified 08/28/20 16:09 Antibiotics) Review of Systems - Constitutional Constitutional: reports: Fatigue, Weakness, Poor appetite. denies: Fever, Chills - Respiratory Respiratory: denies: Cough, Wheezing - Gastrointestinal Gastrointestinal: reports: Constipation, Change in bowel habits. denies: Abdominal pain, Diarrhea - Genitourinary Genitourinary: reports: Incontinence. denies: Dysuria, Hematuria - Musculoskeletal Musculoskeletal: reports: Back pain - Neurological Neurological: reports: General weakness. denies: Focal weakness Prior Level of Functionality: Fairly independent Exam - Vital Signs Reviewed Vital Signs: Yes Vital Signs: Vital Signs x48h Temp Pulse Resp BP Pulse Ox 12/27/20 10:43 62 13 127/57 L 100 12/27/20 10:23 62 11 L 99 12/27/20 09:41 35.8 C L 61 18 142/110 H 99 - Physical Exam General Appearance: positive: No acute distress Eyes Bilateral: positive: Normal inspection ENT: positive: ENT inspection nml Neck: positive: Nml inspection, Thyroid nml, No JVD Respiratory: positive: Chest non-tender, No respiratory distress Cardiovascular: positive: Regular rate & rhythm, No murmur, No gallop Abdomen: positive: Non-tender, No organomegaly Sepsis Event Note (H) - Evaluation Current Stage of Sepsis: Ruled out Conclusion/Plan - Problem List (1) VICKIE (acute kidney injury) Conclusion/Plan: Baseline creatinine of 1.8 with today's creatinine measured at 3.1 Likely secondary to dehydration from nausea vomiting and 1 day of diarrhea This itself is likely secondary to UTI Start IV fluids, NS at 100 mill per hour Treat underlying infection Monitor labs Avoid nephrotoxic agents (2) Dehydration Conclusion/Plan: As above, secondary to nausea and vomiting itself secondary to UTI Hydration as above Repeat labs as above (3) UTI (urinary tract infection) Conclusion/Plan: Urinalysis suggestive of pyuria and acute infection in the setting of the chronic indwelling Jose catheter due to chronic urinary retention Follow-up urine culture results Continue Rocephin IV pending clinical course Qualifiers: Urinary tract infection type: catheter-associated UTI Indwelling urinary catheter type: indwelling urethral catheter Encounter type: initial encounter Qualified Code(s): T83.511A - Infection and inflammatory reaction due to indwelling urethral catheter, initial encounter; N39.0 - Urinary tract infecti on, site not specified (4) Bipolar disorder Conclusion/Plan: Stable Resume home med Qualifiers: Active/Remission status: currently active (5) COPD (chronic obstructive pulmonary disease) Conclusion/Plan: Stable not in exacerbation Cont PRN nebs Qualifiers: COPD type: unspecified COPD Qualified Code(s): J44.9 - Chronic obstructive pulmonary disease, unspecified (6) Chronic pain syndrome Conclusion/Plan: Stable Resume home meds (7) Constipation Conclusion/Plan: Patient has chronic constipation likely at least partly related to immobility and chronic pain medication use This is currently exacerbated by her dehydration and she has not had a bowel movement for 4 days We will start a bowel regimen Qualifiers: Constipation type: other constipation type Qualified Code(s): K59.09 - Other constipation (8) GERD (gastroesophageal reflux disease) Conclusion/Plan: Patient complains of acid reflux Start Protonix (9) HTN (hypertension) Conclusion/Plan: Well-controlled Resume home medication Qualifiers: Hypertension type: essential hypertension Qualified Code(s): I10 - Essential (primary) hypertension (10) Hypothyroidism Conclusion/Plan: Resume Home levothyroxine (11) Urinary incontinence Conclusion/Plan: Chronic urinary incontinence for the past several months with probable incomplete bladder emptying per patient Currently being worked up in the outpatient with a already scheduled urology appointment on 01/16/2021 Will change Jose catheter and replace Follow-up with urology - Lab Results Lab results reviewed: Yes Fish Bones: 12/27/20 09:58 12/27/20 10:14 Other Lab Results: Lactic acid is 2.9 - Diagnostic Imaging Results Diagnostic Imaging Results: positive: Final report reviewed - EKG Results EKG Interpreted Independently: Yes Core Measures - Anticipated LOS I expect patient to be DC'd or transferred within 96 hours.: Yes - DVT/VTE - Prophylaxis VTE/DVT Device ordered at admit?: Yes
[2020-12-27] MEDS: SODIUM CHLORIDE FLUSH 0.9% 10 ML SYRINGE IVP SCH (17:37)
[2020-12-27] MEDS: PANTOPRAZOLE 40 MG TABLET PO SCH (17:37)
[2020-12-27] MEDS: VENLAFAXINE 37.5 MG TABLET PO SCH (20:34)
[2020-12-27] MEDS: gemfibroziL 600 MG TABLET PO SCH (20:34)
[2020-12-27] MEDS: DOCUSATE SODIUM 100 MG CAPSULE PO SCH (20:34)
[2020-12-27] MEDS: risperiDONE 1 MG TABLET PO SCH (20:34)
[2020-12-27] MEDS: BUPRENORPHINE/NALOXONE 8-2 MG TAB SL SCH (20:34)
[2020-12-27] MEDS: PROPRANOLOL 10 MG TABLET PO SCH (20:35)
[2020-12-27] MEDS: GABAPENTIN 100 MG CAPSULE PO SCH (20:35)
[2020-12-27] MEDS: HEPARIN 5,000 UNIT/ML VIAL SUBQ SCH (21:32)
[2020-12-28] MEDS: SODIUM CHLORIDE 0.9% 1,000 ML IV SCH ×3 (00:57→19:54)
[2020-12-28 06:02] LABS: HCT - HEMATOCRIT 32.2 % (37.0-47.0); HGB - HEMOGLOBIN 9.6 g/dL (12.0-16.0); MEAN CORPUSCULAR HEMOGLOBIN 28.7 pg (27.0-31.0); MEAN CORPUSCULAR HGB CONC 29.8 g/dL (32.0-36.0); MEAN CORPUSCULAR VOLUME 96.4 fL (81.0-99.0); MEAN PLATELET VOLUME 10.9 fL (7.9-10.8); RED BLOOD COUNT 3.34 10^6/uL (4.20-5.40); WHITE BLOOD COUNT 9.4 x10^3/uL (4.8-10.8)
[2020-12-28 06:16] LABS: CALCIUM 8.9 mg/dL (8.5-10.3); CREATININE 2.5 mg/dL (0.4-1.0); POTASSIUM 3.5 mmol/L (3.5-5.0)
[2020-12-28] MEDS: SODIUM CHLORIDE FLUSH 0.9% 10 ML SYRINGE IVP SCH ×3 (06:22→19:19)
[2020-12-28] MEDS: LEVOTHYROXINE 25 MCG TABLET PO SCH (06:35)
[2020-12-28] MEDS: PANTOPRAZOLE 40 MG TABLET PO SCH (06:38)
[2020-12-28] MEDS ORDERED: FUROSEMIDE 20 MG TABLET PO SCH (09:00)
[2020-12-28] MEDS: VENLAFAXINE 37.5 MG TABLET PO SCH ×2 (09:01→20:42)
[2020-12-28] MEDS: NICOTINE 7 MG PATCH TOP SCH (09:01)
[2020-12-28] MEDS: CHOLECALCIFEROL 25 MCG TABLET PO SCH (09:03)
[2020-12-28] MEDS: gemfibroziL 600 MG TABLET PO SCH ×2 (09:03→20:42)
[2020-12-28] MEDS: LITHIUM 150 MG CAPSULE PO SCH (09:03)
[2020-12-28] MEDS: ASPIRIN EC 81 MG TABLET PO SCH (09:03)
[2020-12-28] MEDS: DOCUSATE SODIUM 100 MG CAPSULE PO SCH (09:03)
[2020-12-28] MEDS: BUPRENORPHINE/NALOXONE 8-2 MG TAB SL SCH ×3 (09:04→20:42)
[2020-12-28] MEDS: PROPRANOLOL 10 MG TABLET PO SCH ×2 (09:04→21:11)
[2020-12-28] MEDS: METOPROLOL SUCCINATE 50 MG TABLET PO SCH (09:05)
[2020-12-28] MEDS: HEPARIN 5,000 UNIT/ML VIAL SUBQ SCH ×2 (09:05→20:49)
[2020-12-28] MEDS: cefTRIAXone 1 GM in SODIUM CHLORIDE 0.9% MINIBAG 100 ML IV SCH (09:07)
[2020-12-28] MEDS: SODIUM CHLORIDE FLUSH 0.9% 10 ML SYRINGE IVP PRN ×2 (09:08→09:30)
[2020-12-28] MEDS: polyethylene glycoL 3350 17 GM PACKET PO SCH (09:30)
--- NOTE | 2020-12-28 15:01 | PROVIDER PROGRESS NOTE ---
Subjective - Prog Note Date Prog Note Date: 12/28/20 Prog Note Time: 14:58 - Subjective Pt reports feeling: Improved Subjective: Patient feels somewhat better but in the afternoon was not quite feeling after going home just yet. Generally feeling weak and off balance Current Medications - Current Medications Current Medications: Current Medications Generic Name Dose Route Start Last Admin Trade Name Radha PRN Reason Stop Dose Admin Aspirin 81 mg 12/28/20 09:00 12/28/20 09:03 Aspirin Ec 81 Mg Tablet PO 81 mg DAILY JARETT Administration Buprenorphine HCl 1 tab 12/27/20 21:00 12/27/20 20:34 Buprenorphine/Naloxone 8-2 Mg Tab SL 1 tab QPM JARETT Administration Buprenorphine HCl 0.5 tab 12/28/20 12:00 12/28/20 11:54 Buprenorphine/Naloxone 8-2 Mg Tab SL 0.5 tab 1200 JARETT Administration Buprenorphine HCl 1 tab 12/28/20 09:00 12/28/20 09:04 Buprenorphine/Naloxone 8-2 Mg Tab SL 1 tab DAILY JARETT Administration Cholecalciferol 25 mcg 12/28/20 09:00 12/28/20 09:03 Cholecalciferol 25 Mcg Tablet PO 25 mcg DAILY JARETT Administration Docusate Sodium 100 mg 12/27/20 21:00 12/28/20 09:03 Docusate Sodium 100 Mg Capsule PO 100 mg BID JARETT Administration Gabapentin 100 mg 12/27/20 21:00 12/27/20 20:35 Gabapentin 100 Mg Capsule PO 100 mg QPM JARETT Administration Gemfibrozil 600 mg 12/27/20 21:00 12/28/20 09:03 Gemfibrozil 600 Mg Tablet PO 600 mg BID JARETT Administration Heparin Sodium (Porcine) 5,000 unit 12/27/20 21:00 12/28/20 09:05 Heparin 5,000 Unit/Ml Vial SUBQ 5,000 unit BID JARETT Administration Ceftriaxone Sodium 1 gm/ 100 mls @ 200 mls/hr 12/28/20 09:00 12/28/20 09:07 Sodium Chloride IV 200 mls/hr DAILY JARETT Administration Levothyroxine Sodium 50 mcg 12/28/20 07:00 12/28/20 06:35 Levothyroxine 25 Mcg Tablet PO 50 mcg QDAC JARETT Administration [place] Carbonate 300 mg 12/28/20 09:00 12/28/20 09:03 [place] 150 Mg Capsule PO 300 mg DAILY JARETT Administration Metoprolol Succinate 50 mg 12/28/20 09:00 12/28/20 09:05 Metoprolol Succinate 50 Mg Tablet PO 50 mg DAILY JARETT Administration Nicotine 1 patch 12/28/20 09:00 12/28/20 09:01 Nicotine 7 Mg Patch TOP 1 patch DAILY JARETT Administration Ondansetron HCl 4 mg 12/27/20 12:11 12/27/20 20:42 Ondansetron Odt 4 Mg Tablet TL 4 mg Q6HR PRN Administration Nausea / Vomiting Pantoprazole Sodium 40 mg 12/27/20 16:00 12/28/20 06:38 Pantoprazole 40 Mg Tablet PO 40 mg QDAC JARETT Administration Propranolol HCl 10 mg 12/27/20 21:00 12/27/20 20:35 Propranolol 10 Mg Tablet PO 10 mg QPM JARETT Administration Propranolol HCl 20 mg 12/28/20 09:00 12/28/20 09:04 Propranolol 10 Mg Tablet PO 20 mg DAILY JARETT Administration Risperidone 1 mg 12/27/20 21:00 12/27/20 20:34 Risperidone 1 Mg Tablet PO 1 mg QPM JARETT Administration Sodium Chloride 10 ml 12/27/20 12:11 12/28/20 09:08 Sodium Chloride Flush 0.9% 10 Ml Syringe IVP 10 ml PRN PRN Administration NEEDED PER PROVIDER ORDERS Sodium Chloride 10 ml 12/27/20 17:00 12/28/20 06:22 Sodium Chloride Flush 0.9% 10 Ml Syringe IVP Not Given 0100,0900,1700 JARETT Venlafaxine HCl 75 mg 12/27/20 21:00 12/28/20 09:01 Venlafaxine 37.5 Mg Tablet PO 75 mg BID JARETT Administration Objective - Vital Signs/Intake & Output Reviewed Vital Signs: Yes Vital Signs: Vital Signs x48h Temp Pulse Pulse Resp BP BP BP 12/28/20 12:49 36.5 C 49 L 20 90/41 L 88/52 L 12/28/20 10:25 59 L 112/66 12/28/20 08:14 36.4 C L 60 18 110/55 L Pulse Ox 12/28/20 12:49 97 12/28/20 10:25 12/28/20 08:14 94 Intake & Output: Intake & Output 12/25/20 12/26/20 12/27/20 12/28/20 23:59 23:59 23:59 23:59 Intake Total 0246 1703 Output Total 700 950 Balance 1940 1303 - Objective General Appearance: positive: No acute distress Eyes Bilateral: positive: Normal inspection ENT: positive: ENT inspection nml Neck: positive: Nml inspection Respiratory: positive: Chest non-tender, No respiratory distress, Wheezes. negative: Breath sounds nml Cardiovascular: positive: Regular rate & rhythm, No murmur, No gallop Skin: positive: Color nml, No rash Extremities: positive: Non-tender, No pedal edema. negative: Pedal edema Neurologic/Psychiatric: positive: Oriented x3, CN's nml (2-12), Motor nml - Lab Results Fish Bones: 12/28/20 04:35 12/28/20 15:16 Other Labs: Lab Results x24hrs 12/28/20 12/28/20 Range/Units 04:35 04:35 WBC 9.4 (4.8-10.8) x10^3/uL RBC 3.34 L (4.20-5.40) 10^6/uL Hgb 9.6 L (12.0-16.0) g/dL Hct 32.2 L (37.0-47.0) % MCV 96.4 (81.0-99.0) fL MCH 28.7 (27.0-31.0) pg MCHC 29.8 L (32.0-36.0) g/dL RDW 15.0 (12.0-15.0) % Plt Count 311 (130-450) 10^3/uL MPV 10.9 H (7.9-10.8) fL Sodium 140 (135-145) mmol/L Potassium 3.5 (3.5-5.0) mmol/L Chloride 105 (101-111) mmol/L Carbon Dioxide 23 (21-32) mmol/L Anion Gap 12.0 (6-13) BUN 27 H (6-20) mg/dL Creatinine 2.5 H (0.4-1.0) mg/dL Estimated GFR (MDRD) 19 L (>89) Glucose 87 (70-100) mg/dL Calcium 8.9 (8.5-10.3) mg/dL Sepsis Event Note (H) - Evaluation Current Stage of Sepsis: Ruled out Assessment/Plan - Problem List (1) VICKIE (acute kidney injury) Impression: Cr improving, trending down to 2.3 from 2.5 this am Cont IVF Repeat labs in am Probable d/c in am if Cr improves (2) Dehydration Impression: Improved, as above, Cr down to 2.3. Hold Lasix Cont IVF (3) UTI (urinary tract infection) Impression: WBC normalized overnight from 13 down to 9.4 Urine culture pending Continue IV ceftriaxone Qualifiers: Urinary tract infection type: catheter-associated UTI Indwelling urinary catheter type: indwelling urethral catheter Encounter type: initial encounter Qualified Code(s): T83.511A - Infection and inflammatory reaction due to indwelling urethral catheter, initial encounter; N39.0 - Urinary tract i nfection, site not specified (4) Bipolar disorder Impression: Stable Cont current meds Qualifiers: Active/Remission status: currently active (5) COPD (chronic obstructive pulmonary disease) Impression: Stable Cont current meds Qualifiers: COPD type: unspecified COPD Qualified Code(s): J44.9 - Chronic obstructive pulmonary disease, unspecified (6) Chronic pain syndrome Impression: Cont home meds (7) Constipation Impression: Stable Cont bowel regiem Qualifiers: Constipation type: other constipation type Qualified Code(s): K59.09 - Other constipation (8) GERD (gastroesophageal reflux disease) Impression: Stable Cont Protonix (9) HTN (hypertension) Impression: BP normal to low No antihtn meds Assymptomatic Monitor Qualifiers: Hypertension type: essential hypertension (10) Hypothyroidism Impression: Stable Cont synthroid (11) Urinary incontinence Impression: Cont chen catheter
[2020-12-28 15:30] LABS: CREATININE 2.3 mg/dL (0.4-1.0); POTASSIUM 3.8 mmol/L (3.5-5.0)
[2020-12-28] MEDS ORDERED: MAGNESIUM HYDROXIDE 2,400 MG/30 ML UDC PO ONE (16:19)
[2020-12-28] MEDS: GABAPENTIN 100 MG CAPSULE PO SCH (20:42)
[2020-12-28] MEDS: risperiDONE 1 MG TABLET PO SCH (20:44)
[2020-12-29] MEDS: SODIUM CHLORIDE 0.9% 1,000 ML IV SCH ×2 (00:47→08:39)
[2020-12-29] MEDS: SODIUM CHLORIDE FLUSH 0.9% 10 ML SYRINGE IVP SCH ×2 (03:00→08:39)
[2020-12-29 06:02] LABS: HCT - HEMATOCRIT 31.1 % (37.0-47.0); HGB - HEMOGLOBIN 9.1 g/dL (12.0-16.0); MEAN CORPUSCULAR HEMOGLOBIN 28.7 pg (27.0-31.0); MEAN CORPUSCULAR HGB CONC 29.3 g/dL (32.0-36.0); MEAN CORPUSCULAR VOLUME 98.1 fL (81.0-99.0); MEAN PLATELET VOLUME 10.5 fL (7.9-10.8); RED BLOOD COUNT 3.17 10^6/uL (4.20-5.40); RED CELL DISTRIBUTION WIDTH 15.3 % (12.0-15.0); WHITE BLOOD COUNT 7.4 x10^3/uL (4.8-10.8)
[2020-12-29 06:14] LABS: CALCIUM 8.8 mg/dL (8.5-10.3); CREATININE 2.1 mg/dL (0.4-1.0); POTASSIUM 3.9 mmol/L (3.5-5.0)
[2020-12-29] MEDS: PANTOPRAZOLE 40 MG TABLET PO SCH (06:40)
[2020-12-29] MEDS: LEVOTHYROXINE 25 MCG TABLET PO SCH (06:40)
[2020-12-29] MEDS: PROPRANOLOL 10 MG TABLET PO SCH (08:31)
[2020-12-29] MEDS: METOPROLOL SUCCINATE 50 MG TABLET PO SCH (08:31)
[2020-12-29] MEDS: CHOLECALCIFEROL 25 MCG TABLET PO SCH (08:35)
[2020-12-29] MEDS: ASPIRIN EC 81 MG TABLET PO SCH (08:35)
[2020-12-29] MEDS: gemfibroziL 600 MG TABLET PO SCH (08:35)
[2020-12-29] MEDS: LITHIUM 150 MG CAPSULE PO SCH (08:35)
[2020-12-29] MEDS: NICOTINE 7 MG PATCH TOP SCH (08:36)
[2020-12-29] MEDS: BUPRENORPHINE/NALOXONE 8-2 MG TAB SL SCH ×2 (08:36→12:58)
[2020-12-29] MEDS: HEPARIN 5,000 UNIT/ML VIAL SUBQ SCH (08:43)
[2020-12-29] MEDS: polyethylene glycoL 3350 17 GM PACKET PO SCH (08:48)
[2020-12-29] MEDS: cefTRIAXone 1 GM in SODIUM CHLORIDE 0.9% MINIBAG 100 ML IV SCH (08:48)
[2020-12-29] MEDS ORDERED: SENNA 8.6 MG TABLET PO SCH (09:00)
[2020-12-29] MEDS ORDERED: DOCUSATE SODIUM 250 MG CAPSULE PO SCH (09:00)
[2020-12-29] MEDS: VENLAFAXINE 37.5 MG TABLET PO SCH (09:30)
--- NOTE | 2020-12-29 12:12 | Discharge Plan ---
Discharge Plan Problem Reviewed?: Yes Disposition: Home, Self Care Condition: Stable Prescriptions: Amoxicillin 500 mg PO TID 3 Days #9 cap Diet: Cardiac Activity Restrictions: Activity as Tolerated Shower Restrictions: No Plan of Treatment: You were admitted to the hospital with evidence of dehydration, a urinary tract infection, and acute kidney injury (which is something that happens when something has affected your kidneys ability to function properly). After providing you with antibiotics and IV fluids, these have all improved and at this time you are nearly back to your baseline level of health. I would still advise you to have a follow-up appointment with your primary care physician to check your blood work to ensure your kidney function has returned to normal. In addition, we will be sending you home with an additional 3 days prescription for antibiotics. Please make sure to complete the course of antibiotics. No Smoking: If you smoke, Please STOP! Call for help. Follow-up with: Dae Malagon MD [Primary Care Provider] -
--- NOTE | 2020-12-29 12:23 | DISCHARGE SUMMARY ---
Discharge Summary Admit Date: 12/27/20 Discharge Date: 12/29/20 Discharging Provider: Mike Ferrera MD Primary Care Provider: Dr Fadi Bustos Code Status: Attempt Resuscitation Condition at Discharge: Stable Discharge Disposition: 01 Home, Self Care - DIAGNOSES Admission Diagnoses: VICKIE Dehydration UTI Bipolar disorder COPD Chronic pain syndrome Constipation GERD Hypertension Hypothyroidism Urinary incontinence Discharge Diagnoses with Status of Each Condition: VICKIE - Improved Dehydration - Resolved UTI - Stable Bipolar disorder - Stable COPD - Stable Chronic pain syndrome - Stable Constipation - Improved GERD - Improved Hypertension - Stable Hypothyroidism - Stable Urinary incontinence - Stable - HPI History of Present Illness: Patient is a 70-year-old female with past medical history of Chronic indwelling Jose catheter secondary to urinary retention, hypertension, peripheral neuropathy, COPD, diet-controlled type 2 diabetes mellitus, anxiety disorder, bipolar disorder, hyperlipidemia, chronic pain syndrome, obesity, tobacco abuse, who presented to the emergency department with 5-day history of nausea vomiting and 1 day history of diarrhea since resolved. Patient denied any specific urinary tract symptoms including dysuria and due to her Jose catheter, cannot measure for nocturia, increased urinary frequency, hesitancy, etc. She denied history of fever. Patient was evaluated in the ED for the symptoms and found to have urinalysis co nsistent with UTI. Her WBC was 13.0 suggestive of infection, creatinine was 3.1 and baseline creatinine is closer to 1.8 suggestive of VICKIE. Given poor p.o. intake, acute kidney injury secondary to dehydration with nausea vomiting and diarrhea, hospitalist admission was requested for the treatment of acute urinary tract infection with VICKIE. - HOSPITAL COURSE Hospital Course: Patient was admitted on IV ceftriaxone and started on IV fluids. She started to show improvement the day after admission, with respect to her weakness. Nausea and vomiting resolved and did not recur during the hospitalization. Her Jose catheter was Replaced with a new one after admission. Given her weakness, she was seen by physical therapy and found to be at her baseline. Her creatinine level improved throughout the hospitalization and by the day of discharge improved to 2.1 from her baseline of 1.8. Given that she was tolerating solids and liquids, had no further nausea and vomiting, was at her baseline ambulatory capabilities, had a normal white blood cell count, was afebrile, she was deemed to be medically stable for discharge. At the time of discharge, preliminary urine culture results showed evidence of gram-negative nikky and Enterococcus species. Based on previous urine cultures with susceptibility reports, she will be discharged on amoxicillin for 3 more days. She was also seen by social work during this hospitalization, and home health referral was renewed to include physical therapy and nursing care, as well as a home health aide. - ALLERGIES Allergies/Adverse Reactions: Allergies Allergy/AdvReac Type Severity Reaction Status Date / Time NSAIDS (Non-Steroidal Allergy Mild Hives Verified 08/28/20 16:09 Anti-Inflamma acetaminophen Allergy Hives Verified 12/27/20 10:11 lisinopril Allergy Unknown Verified 08/28/20 16:09 Sulfa (Sulfonamide AdvReac Mild Rash Verified 08/28/20 16:09 Antibiotics) - MEDICATIONS Home Medications: Ambulatory Orders Medication Instructions Recorded Confirmed Levothyroxine Sodium 50 mcg PO QDAC #30 07/17/19 12/27/20 [place] Carbonate 300 mg PO DAILY #30 07/17/19 12/27/20 Metoprolol Succinate [Toprol Xl] 50 mg PO DAILY #30 07/17/19 12/27/20 Venlafaxine HCl 75 mg PO BID #60 07/17/19 12/27/20 gemfibroziL [Gemfibrozil] 600 mg PO BID #60 07/17/19 12/27/20 risperiDONE [Risperdal] 1 mg PO QPM #30 07/17/19 12/27/20 Omeprazole 20 mg PO QDAC 11/15/19 12/27/20 Buprenorphine HCl/Naloxone HCl 1 tab SL QPM 08/15/20 12/27/20 [Suboxone 8-2 mg Sl tab] Cholecalciferol [Vitamin D3] 25 mcg PO DAILY 08/15/20 12/27/20 Furosemide [Lasix] 20 mg PO DAILY 08/15/20 12/27/20 Gabapentin [Neurontin] 100 mg PO QPM 08/15/20 12/27/20 Propranolol [Inderal] 20 mg PO DAILY 08/15/20 12/27/20 Aspirin [Aspirin EC] 81 mg PO DAILY 12/27/20 12/27/20 Buprenorphine HCl/Naloxone HCl 0.5 tab PO 1200 12/27/20 12/27/20 [Suboxone 8-2 mg Tab] Buprenorphine HCl/Naloxone HCl 1 tab PO DAILY 12/27/20 12/27/20 [Suboxone 8-2 mg Tab] Propranolol [Inderal] 10 mg PO QPM 12/27/20 12/27/20 Amoxicillin 500 mg PO TID 3 Days #9 cap 12/29/20 Docusate Sodium 250Mg Capsule 250 - 500 mg PO DAILY 12/29/20 [Colace 250Mg Capsule] - PHYSICAL EXAM AT DISCHARGE General Appearance: positive: No acute distress Eyes Bilateral: positive: Normal inspection Neck: positive: Nml inspection Respiratory: positive: Chest non-tender, No respiratory distress Cardiovascular: positive: Regular rate & rhythm, No murmur, No gallop Abdomen: positive: Non-tender, No organomegaly, Nml bowel sounds, No distention Neurologic/Psychiatric: positive: Oriented x3, CN's nml (2-12) - LABS Result Diagrams: 12/29/20 05:27 12/29/20 05:27 - DIAGNOSTIC IMAGING Diagnostic Imaging Results: Final report reviewed - SEPSIS Current Stage of Sepsis: Ruled out - FOLLOW UP Follow Up: PCP and urology - TIME SPENT Time Spent in Discharge (Minutes): 48
[2020-12-29 13:34] VITALS: BP 117/95
== END 2020-12-29 14:25 | disposition home or self-care (01) | DRG 699 ==
LOC: EDUNIT# → ED 09:40 → MS2 12:11 → OBSVTOIN 12-28 14:57
PROVIDERS: ADMIT Family Medicine Sports Medicine; ATTEND Family Medicine Sports Medicine
DX: T83.518A Infection and inflammatory reaction due to other urinary catheter, initial encounter (principal); N39.0 Urinary tract infection, site not specified; N17.9 Acute kidney failure, unspecified; E11.42 Type 2 diabetes mellitus with diabetic polyneuropathy; R33.9 Retention of urine, unspecified; R32 Unspecified urinary incontinence; E86.0 Dehydration; B95.2 Enterococcus as the cause of diseases classified elsewhere; Y73.1 Therapeutic (nonsurgical) and rehabilitative gastroenterology and urology devices associated with adverse incidents; B96.89 Other specified bacterial agents as the cause of diseases classified elsewhere; I10 Essential (primary) hypertension; J44.9 Chronic obstructive pulmonary disease, unspecified; E03.9 Hypothyroidism, unspecified; E78.5 Hyperlipidemia, unspecified; K21.9 Gastro-esophageal reflux disease without esophagitis; F41.9 Anxiety disorder, unspecified; F31.9 Bipolar disorder, unspecified; G89.4 Chronic pain syndrome; K59.09 Other constipation; E66.9 Obesity, unspecified; Z68.32 Body mass index [BMI] 32.0-32.9, adult; Z20.822 Contact with and (suspected) exposure to COVID-19; R01.1 Cardiac murmur, unspecified; M54.9 Dorsalgia, unspecified; M19.90 Unspecified osteoarthritis, unspecified site; Z96.659 Presence of unspecified artificial knee joint; Z79.899 Other long term (current) drug therapy; Z79.82 Long term (current) use of aspirin; Z72.89 Other problems related to lifestyle; Z87.891 Personal history of nicotine dependence; Z86.718 Personal history of other venous thrombosis and embolism; Z87.19 Personal history of other diseases of the digestive system
CPT/HCPCS: 36415; 51798; 71045; 80048; 80053; 81001; 83605; 83690; 83735; 85025; 85027; 87077; 87086; 87181; 87631; 96361; 96365; 96372; 96375; 96376; 97162; 99284; 99285; A9270; G0378; Q0162; 0202U; 81003

== ENCOUNTER 2020-12-30 11:27 | Outpatient (CLI) | payer MEDICARE, MEDICAID | END 2020-12-30 11:28 | disposition EMS.NT | LOC: EMS 11:27 | DX: R53.83 Other fatigue (principal) ==

== ENCOUNTER 2020-12-30 16:57 | Inpatient (IN) | payer MEDICARE, MEDICAID ==
[2020-12-30] MEDS ORDERED: CIPROFLOXACIN 400 MG/200 ML 400 MG/200 ML BAG IV STA (17:16)
[2020-12-30] MEDS ORDERED: SODIUM CHLORIDE 0.9% 1,000 ML IV STA (17:16)
--- NOTE | 2020-12-30 17:18 | ED Physician Documentation ---
History of Present Illness - Stated complaint Stated Complaint: CONFUSION, FEMALE - Chief complaint Chief Complaint: General - History obtained from History obtained from: Patient - Additonal information Additional information: 70-year-old woman who was admitted here on the for acute kidney injury related to UTI related to indwelling Jose catheter. She had a white count of 13,000 and a creatinine of 3.1 which at baseline is closer to 2. She was hydrated and treated with Rocephin and reportedly improved. Sent home yesterday on amoxicillin. Returns today for confusion. She is somewhat of a poor historian, she will say she does not know how long she was confused. Then she admits she was confused when she left the hospital. She knows the month but not the year. When asked her if she is in pain she says now, but then says her back hurts but that is a chronic phenomenon. When I asked her if she is short of breath she says I do not know. Review of Systems Unable to obtain: Confused PD PAST MEDICAL HISTORY - Past Medical History Cardiovascular: Hypertension, High cholesterol, Deep vein thrombosis, Murmur Respiratory: Asthma, COPD, Shortness of breath Neuro: Peripheral neuropathy Endocrine/Autoimmune: Type 2 diabetes GI: GERD, Chronic constipation, Pancreatitis : Incontinence, Chronic bladder infection HEENT: None Psych: Anxiety, Bipolar disorder, Other Musculoskeletal: Osteoarthritis, Fatigue, Chronic back pain, Other Derm: Other - Past Surgical History Past Surgical History: Yes General: EGD, Colonoscopy Ortho: Knee replacement, 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 HEENT: Tonsil/Adenoidectomy - Present Medications Home Medications: Ambulatory Orders Medication Instructions Recorded Confirmed Levothyroxine Sodium 50 mcg PO QDAC #30 07/17/19 12/30/20 [place] Carbonate 300 mg PO DAILY #30 07/17/19 12/30/20 Metoprolol Succinate [Toprol Xl] 50 mg PO DAILY #30 07/17/19 12/30/20 Venlafaxine HCl 75 mg PO BID #60 07/17/19 12/30/20 gemfibroziL [Gemfibrozil] 600 mg PO BID #60 07/17/19 12/30/20 risperiDONE [Risperdal] 1 mg PO QPM #30 07/17/19 12/30/20 Omeprazole 20 mg PO QDAC 11/15/19 12/30/20 Buprenorphine HCl/Naloxone HCl 1 tab SL QPM 08/15/20 12/27/20 [Suboxone 8-2 mg Sl tab] Cholecalciferol [Vitamin D3] 25 mcg PO DAILY 08/15/20 12/30/20 Furosemide [Lasix] 20 mg PO DAILY 08/15/20 12/30/20 Gabapentin [Neurontin] 100 mg PO QPM 08/15/20 12/30/20 Propranolol [Inderal] 20 mg PO DAILY 08/15/20 12/30/20 Aspirin [Aspirin EC] 81 mg PO DAILY 12/27/20 12/27/20 Buprenorphine HCl/Naloxone HCl 0.5 tab PO 1200 12/27/20 12/27/20 [Suboxone 8-2 mg Tab] Buprenorphine HCl/Naloxone HCl 1 tab PO DAILY 12/27/20 12/27/20 [Suboxone 8-2 mg Tab] Propranolol [Inderal] 10 mg PO QPM 12/27/20 12/30/20 Docusate Sodium 250Mg Capsule 250 - 500 mg PO DAILY 12/29/20 12/30/20 [Colace 250Mg Capsule] - Allergies Allergies/Adverse Reactions: Allergies Allergy/AdvReac Type Severity Reaction Status Date / Time NSAIDS (Non-Steroidal Allergy Mild Hives Verified 12/30/20 16:59 Anti-Inflamma acetaminophen Allergy Hives Verified 12/30/20 16:59 lisinopril Allergy Unknown Verified 12/30/20 16:59 Sulfa (Sulfonamide AdvReac Mild Rash Verified 12/30/20 16:59 Antibiotics) - Social History Does the pt smoke?: Yes Smoking Status: Current every day smoker Does the pt drink ETOH?: No Does the pt have substance abuse?: No - Immunizations Immunizations are current?: Yes Immunizations: TDAP >10years/unknown - POLST Patient has POLST: No POLST Status: Full Code PD ED PE NORMAL - Vitals Vital signs reviewed: Yes - General General: No acute distress, Other (She is alert and oriented to person place, borderline for time and events. Prefers to keep her eyes closed and slightly somnolent. Smells heavily of tobacco.) - HEENT HEENT: PERRL, EOMI - Neck Neck: Supple, no meningeal sign, No bony TTP - Cardiac Cardiac: RRR, No murmur - Respiratory Respiratory: No respiratory distress, Other (Wheezy throughout) - Abdomen Abdomen: Non tender - Back Back: No CVA TTP, No spinal TTP - Derm Derm: Normal color, Warm and dry - Extremities Extremities: No edema, No calf tenderness / cord - Neuro Neuro: Normal speech Eye Opening: To Voice Motor: Obeys Commands Verbal: Confused GCS Score: 13 Results - Vitals Vitals: Vital Signs - 24 hr 12/30/20 16:59 Temperature 36.5 C Heart Rate 60 Respiratory 16 Rate Blood Pressure 130/60 O2 Saturation 97 Oxygen O2 Source [Without Activity] Room air O2 Source Room air - Labs Labs: Laboratory Tests 12/30/20 12/30/20 12/30/20 17:22 17:22 17:22 WBC 8.9 RBC 3.63 L Hgb 10.6 L Hct 35.4 L MCV 97.5 MCH 29.2 MCHC 29.9 L RDW 15.7 H Plt Count 343 MPV 10.2 Neut # (Auto) 6.2 Lymph # (Auto) 1.1 L [place] # (Auto) 0.9 Eos # (Auto) 0.5 Baso # (Auto) 0.1 Absolute Nucleated RBC 0.00 Nucleated RBC % 0.0 Sodium 142 Potassium 4.0 Chloride 109 Carbon Dioxide 24 Anion Gap 9.0 BUN 24 H Creatinine 2.1 H Estimated GFR (MDRD) 23 L Glucose 107 H Lactic Acid 1.5 Calcium 9.5 Total Bilirubin 0.4 AST < 10 L ALT < 10 L Alkaline Phosphatase 167 H Total Protein 6.6 L Albumin 3.2 Globulin 3.4 Albumin/Globulin Ratio 0.9 L Urine Color Urine Clarity Urine pH Ur Specific [place] Urine Protein Urine Glucose (UA) Urine Ketones Urine Occult Blood Urine Nitrite Urine Bilirubin Urine Urobilinogen Ur Leukocyte Esterase Urine RBC Urine WBC Urine WBC Clumps Ur Squamous Epith Cells Urine Bacteria Ur Microscopic Review Urine Culture Comments Last Dose Date Last Dose Time Urine Opiates Screen Ur Oxycodone Screen Urine Methadone Screen Ur Propoxyphene Screen Ur Barbiturates Screen Ur Tricyclics Screen Ur Phencyclidine Scrn Ur Amphetamine Screen U Methamphetamines Scrn U Benzodiazepines Scrn [place] Urine Cocaine Screen U Cannabinoids Screen Ethyl Alcohol 12/30/20 12/30/20 12/30/20 17:22 17:22 17:22 WBC RBC Hgb Hct MCV MCH MCHC RDW Plt Count MPV Neut # (Auto) Lymph # (Auto) [place] # (Auto) Eos # (Auto) Baso # (Auto) Absolute Nucleated RBC Nucleated RBC % Sodium Potassium Chloride Carbon Dioxide Anion Gap BUN Creatinine Estimated GFR (MDRD) Glucose Lactic Acid Calcium Total Bilirubin AST ALT Alkaline Phosphatase Total Protein Albumin Globulin Albumin/Globulin Ratio Urine Color YELLOW Urine Clarity CLEAR Urine pH 6.0 Ur Specific [place] 1.010 Urine Protein NEGATIVE Urine Glucose (UA) NEGATIVE Urine Ketones NEGATIVE Urine Occult Blood NEGATIVE Urine Nitrite NEGATIVE Urine Bilirubin NEGATIVE Urine Urobilinogen 0.2 (NORMAL) Ur Leukocyte Esterase SMALL H Urine RBC 0-5 Urine WBC 11-25 H Urine WBC [place] PRESENT Ur Squamous Epith Cells RARE Squamous Urine Bacteria Rare Ur Microscopic Review INDICATED Urine Culture Comments INDICATED Last Dose Date Last Dose Time Urine Opiates Screen NEGATIVE Ur Oxycodone Screen NEGATIVE Urine Methadone Screen NEGATIVE Ur Propoxyphene Screen NEGATIVE Ur Barbiturates Screen NEGATIVE Ur Tricyclics Screen NEGATIVE Ur Phencyclidine Scrn NEGATIVE Ur Amphetamine Screen NEGATIVE U Methamphetamines Scrn NEGATIVE U Benzodiazepines Scrn NEGATIVE [place] Urine Cocaine Screen NEGATIVE U Cannabinoids Screen NEGATIVE Ethyl Alcohol < 5.0 12/30/20 18:24 WBC RBC Hgb Hct MCV MCH MCHC RDW Plt Count MPV Neut # (Auto) Lymph # (Auto) [place] # (Auto) Eos # (Auto) Baso # (Auto) Absolute Nucleated RBC Nucleated RBC % Sodium Potassium Chloride Carbon Dioxide Anion Gap BUN Creatinine Estimated GFR (MDRD) Glucose Lactic Acid Calcium Total Bilirubin AST ALT Alkaline Phosphatase Total Protein Albumin Globulin Albumin/Globulin Ratio Urine Color Urine Clarity Urine pH Ur Specific [place] Urine Protein Urine Glucose (UA) Urine Ketones Urine Occult Blood Urine Nitrite Urine Bilirubin Urine Urobilinogen Ur Leukocyte Esterase Urine RBC Urine WBC Urine WBC Clumps Ur Squamous Epith Cells Urine Bacteria Ur Microscopic Review Urine Culture Comments Last Dose Date Not Reportable Last Dose Time Not Reportable Urine Opiates Screen Ur Oxycodone Screen Urine Methadone Screen Ur Propoxyphene Screen Ur Barbiturates Screen Ur Tricyclics Screen Ur Phencyclidine Scrn Ur Amphetamine Screen U Methamphetamines Scrn U Benzodiazepines Scrn [place] 0.80 Urine Cocaine Screen U Cannabinoids Screen Ethyl Alcohol PD MEDICAL DECISION MAKING - ED course ED course: Spoke with , Edward by phone. Confirmed med list, he does not know dosages: Gamfibrozil Omperazole [place] Levothyroxine Metoprolol Risperidone Venlafaxine Gabapentin Furosemide propranolol suboxone ASA Patient lives with , currently he is primary caregiver. She is bedbound but not demented. The isolate from the other night would not have been treated with any single cephalosporin. She was on Rocephin in the hospital and discharged on amoxicillin. She may be getting worse because of incomplete treatment. She is placed on Cipro to which both isolates were sensitive. Given that she is persistently encephalopathic with incompletely treated UTI Dr. Mike Ferrera will observe on IV antibiotics. I did not order repeat Covid testing as she had a Covid test done 2 days ago her e. Departure - Departure Disposition: ED Place in Observation Clinical Impression: Tenuous home situation, UTI (urinary tract infection) Altered mental status Qualifiers: Altered mental status type: delirium Qualified Code(s): R41.0 - Disorientation, unspecified Condition: Stable Discharge Date/Time: 12/30/20 19:22
[2020-12-30 17:28] LABS: BASOPHILS # (AUTO) 0.1 10^3/uL (0.0-0.1); BASOPHILS % (AUTO) 0.6 %; EOSINOPHILS # (AUTO) 0.5 10^3/uL (0.0-0.7); EOSINOPHILS % (AUTO) 5.9 %; HCT - HEMATOCRIT 35.4 % (37.0-47.0); HGB - HEMOGLOBIN 10.6 g/dL (12.0-16.0); LYMPHOCYTES # (AUTO) 1.1 10^3/uL (1.5-3.5); LYMPHOCYTES % (AUTO) 12.8 %; MEAN CORPUSCULAR HEMOGLOBIN 29.2 pg (27.0-31.0); MEAN CORPUSCULAR HGB CONC 29.9 g/dL (32.0-36.0); MEAN CORPUSCULAR VOLUME 97.5 fL (81.0-99.0); MEAN PLATELET VOLUME 10.2 fL (7.9-10.8); MONOCYTES # (AUTO) 0.9 10^3/uL (0.0-1.0); MONOCYTES % (AUTO) 9.6 %; NEUTROPHILS # (AUTO) 6.2 10^3/uL (1.5-6.6); PLT - PLATELET COUNT 343 10^3/uL (130-450); RED BLOOD COUNT 3.63 10^6/uL (4.20-5.40); RED CELL DISTRIBUTION WIDTH 15.7 % (12.0-15.0); WHITE BLOOD COUNT 8.9 x10^3/uL (4.8-10.8)
[2020-12-30 17:29] LABS: BILIRUBIN,URINE NEGATIVE (NEGATIVE); GLUCOSE, URINE (UA) NEGATIVE (NEGATIVE); KETONES,URINE (UA) NEGATIVE (NEGATIVE); LEUKOCYTE ESTERASE, URINE SMALL (NEGATIVE); NITRITE,URINE NEGATIVE (NEGATIVE); OCCULT BLOOD,URINE NEGATIVE (NEGATIVE); PROTEIN,URINE NEGATIVE (NEGATIVE); UROBILINOGEN,URINE 0.2 (NORMAL) E.U./dL (NORMAL)
[2020-12-30 17:42] LABS: MUDS CUTOFF CONCENTRATIONS CUTOFF CONC BELOW:
[2020-12-30 17:51] LABS: CLARITY,URINE CLEAR (CLEAR); RBC,URINE 0-5 /HPF (0-5); WBC CLUMPS,URINE PRESENT
[2020-12-30 17:52] LABS: BACTERIA,URINE Rare /HPF (None Seen); SQUAMOUS EPITHELIAL CELL,UR RARE Squamous (<= Few)
[2020-12-30 17:53] LABS: ALBUMIN 3.2 g/dL (3.2-5.5); ALBUMIN/GLOBULIN RATIO 0.9 (1.0-2.2); ALKALINE PHOSPHATASE 167 IU/L (42-121); ALT ALANINE AMINOTRANSFERASE < 10 IU/L (10-60); AST ASPARTATE AMINOTRANSFERASE < 10 IU/L (10-42); BILIRUBIN,TOTAL 0.4 mg/dL (0.2-1.0); BUN - BLOOD UREA NITROGEN 24 mg/dL (6-20); CALCIUM 9.5 mg/dL (8.5-10.3); CARBON DIOXIDE - CO2 24 mmol/L (21-32); CHLORIDE 109 mmol/L (101-111); CREATININE 2.1 mg/dL (0.4-1.0); GFR - MDRD 23 (>89); GLUCOSE 107 mg/dL (70-100); SODIUM 142 mmol/L (135-145); TOTAL PROTEIN 6.6 g/dL (6.7-8.2)
[2020-12-30 17:58] LABS: AMPHETAMINE SCREEN,URINE NEGATIVE (NEGATIVE); BARBITURATE SCREEN,UR NEGATIVE (NEGATIVE); BENZODIAZEPINES SCREEN, URINE NEGATIVE (NEGATIVE); COCAINE SCREEN URINE NEGATIVE (NEGATIVE); METHADONE SCREEN, URINE NEGATIVE (NEGATIVE); METHAMPHETAMINES SCREEN, URINE NEGATIVE (NEGATIVE); OPIATE SCREEN, URINE NEGATIVE (NEGATIVE); OXYCODONE SCREEN, URINE NEGATIVE (NEGATIVE); PROPOXYPHENE SCREEN, URINE NEGATIVE (NEGATIVE); THC CANNABINOID SCREEN, URINE NEGATIVE (NEGATIVE); TRICYCLIC ANTIDEPRESSANT,URINE NEGATIVE (NEGATIVE)
--- NOTE | 2020-12-30 18:09 | CT Report ---
PROCEDURE: HEAD WO INDICATIONS: Altered mental status TECHNIQUE: Noncontrast 4.5 mm thick angled axial sections acquired from the foramen magnum to the vertex. For r adiation dose reduction, the following was used: automated exposure control, adjustment of mA and/or kV according to patient size. COMPARISON: 02/01/2020 FINDINGS: Image quality: Excellent. CSF spaces: Basal cisterns are patent. No extra-axial fluid collections. Ventricles are normal in size and shape. Brain: No midline shift. No intracranial masses or hemorrhage. Cam-white matter interface is norm al. Skull and face: Calvarium and visualized facial bones are intact, without suspicious lesions. Sinuses: Visualized sinuses and mastoids are clear. IMPRESSION: No acute intracranial finding. Reviewed by: Gaudencio Cheney MD on 12/30/2020 6:08 PM PDT Approved by: Gaudencio Cheney MD on 12/30/2020 6:08 PM PDT Station ID: [id number]
[2020-12-30] MEDS ORDERED: ONDANSETRON ODT 4 MG TABLET TL PRN (18:33)
[2020-12-30] MEDS ORDERED: LITHIUM 150 MG CAPSULE PO STA (18:33)
[2020-12-30] MEDS ORDERED: polyethylene glycoL 3350 17 GM PACKET PO PRN (18:33)
[2020-12-30] MEDS ORDERED: HEPARIN 5,000 UNIT/ML VIAL IVP STA (18:33)
[2020-12-30] MEDS ORDERED: DOCUSATE SODIUM 100 MG CAPSULE PO STA (18:33)
[2020-12-30] MEDS ORDERED: FUROSEMIDE 20 MG TABLET PO STA (18:33)
--- NOTE | 2020-12-30 18:57 | HISTORY & PHYSICAL EXAMINATION ---
Chief Complaint - Chief Complaint Chief Complaint: "I feel wierd" History of Present Illness - Admitted From Admitted From:: ED via home - History Obtained From Records Reviewed: ED History obtained from: Patient and ED physician Exam Limitations: Pt is a poor historian - History of Present Illness HPI Comment/Other: Annika Alberto is a 70-year-old female with a history of Obesity, type 2 diabetes mellitus, bipolar disorder, chronic pain with opiate use, among other things who was just discharged from the hospital yesterday after being admitted for nausea vomiting, VICKIE, UTI with metabolic encephalopathy. Please see the previous history and physical and discharge summary from yesterday for full details but in brief She was in the hospital for 3 days due to having nausea and vomiting prior to admission, along with an elevated creatinine above her baseline and was found to have a UTI. Nausea and vomiting abated shortly after admission, she was started on IV fluids and her creatinine returned to baseline, and she was treated with empiric IV ceftriaxone and at the time of discharge preliminary urine culture results showed evidence of gram-negative nikky and Enterococcus species. She was discharged home on oral Amoxicillin. Patient returns to the ER today and the reason for this she tells me "because my said I was weird". She does not offer any specific complaints, seems to recall that she was just discharged from the hospital, remembers me taking care of her, but does not seem to understand why she was brought to the hospital. She denies any pain, nausea, vomiting, dysuria, or other physical symptoms of any kind. She specifically states physically she feels fine. But she does admit that she "feels weir". Her work-up in the ED thus far has been relatively benign with no fever, white blood cell count elevation, or other acute findings but apparently according to her she is not at her baseline mental status and seems to be confused. He states he cannot take care of her like this and would like her to be admitted. On the previous admission and again today she has refused and continues to refuse a [place] [facility] facility placement. Based on the fact that she appears to have confusion more than her baseline, per , and being unable to take care of her, should be admitted for IV antibiotics as her initial treatment may have been ineffective due to resis tance. History - Past Medical History Cardiovascular: reports: Hypertension, High cholesterol, Deep vein thrombosis, Murmur Respiratory: reports: Asthma, COPD, Shortness of breath Neuro: reports: Peripheral neuropathy Endocrine/Autoimmune: reports: Type 2 diabetes GI: reports: GERD, Chronic constipation, Pancreatitis : reports: Incontinence, Chronic bladder infection HEENT: reports: None Psych: reports: Anxiety, Bipolar disorder, Other Musculoskeletal: reports: Osteoarthritis, Fatigue, Chronic back pain, Other Derm: reports: Other MRSA Hx?: No - Past Surgical History General: reports: EGD, Colonoscopy Ortho: reports: Knee replacement, 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 Living Situation: With spouse/s.o. Social History Notes: She smoked 1ppd. Uses CBD cannabis oil sublingual. She does not drink alcohol - Substance History Use: Uses substance without health or social issues: Tobacco (hx) - POLST Patient has POLST: No POLST Status: Full Code Meds/Allgy - Home Medications Home Medications: Ambulatory Orders Medication Instructions Recorded Confirmed Levothyroxine Sodium 50 mcg PO QDAC #30 07/17/19 12/27/20 [place] Carbonate 300 mg PO DAILY #30 07/17/19 12/27/20 Metoprolol Succinate [Toprol Xl] 50 mg PO DAILY #30 07/17/19 12/27/20 Venlafaxine HCl 75 mg PO BID #60 07/17/19 12/27/20 gemfibroziL [Gemfibrozil] 600 mg PO BID #60 07/17/19 12/27/20 risperiDONE [Risperdal] 1 mg PO QPM #30 07/17/19 12/27/20 Omeprazole 20 mg PO QDAC 11/15/19 12/27/20 Buprenorphine HCl/Naloxone HCl 1 tab SL QPM 08/15/20 12/27/20 [Suboxone 8-2 mg Sl tab] Cholecalciferol [Vitamin D3] 25 mcg PO DAILY 08/15/20 12/27/20 Furosemide [Lasix] 20 mg PO DAILY 08/15/20 12/27/20 Gabapentin [Neurontin] 100 mg PO QPM 08/15/20 12/27/20 Propranolol [Inderal] 20 mg PO DAILY 08/15/20 12/27/20 Aspirin [Aspirin EC] 81 mg PO DAILY 12/27/20 12/27/20 Buprenorphine HCl/Naloxone HCl 0.5 tab PO 1200 12/27/20 12/27/20 [Suboxone 8-2 mg Tab] Buprenorphine HCl/Naloxone HCl 1 tab PO DAILY 12/27/20 12/27/20 [Suboxone 8-2 mg Tab] Propranolol [Inderal] 10 mg PO QPM 12/27/20 12/27/20 Docusate Sodium 250Mg Capsule 250 - 500 mg PO DAILY 12/29/20 [Colace 250Mg Capsule] - Allergies Allergies/Adverse Reactions: Allergies Allergy/AdvReac Type Severity Reaction Status Date / Time NSAIDS (Non-Steroidal Allergy Mild Hives Verified 12/30/20 16:59 Anti-Inflamma acetaminophen Allergy Hives Verified 12/30/20 16:59 lisinopril Allergy Unknown Verified 12/30/20 16:59 Sulfa (Sulfonamide AdvReac Mild Rash Verified 12/30/20 16:59 Antibiotics) Review of Systems - Constitutional Constitutional: denies: Fatigue, Fever, Chills - Psychiatric Psychiatric: reports: Other ("Feels weird") - All Other Systems All Other Systems: reports: Reviewed and negative Exam - Vital Signs Reviewed Vital Signs: Yes Vital Signs: Vital Signs x48h Temp Pulse Resp BP Pulse Ox 12/30/20 16:59 36.5 C 60 16 130/60 97 - Physical Exam General Appearance: positive: No acute distress, Lethargic (She is somewhat lethargic but is easily arousable and alert.) Eyes Bilateral: positive: Normal inspection Neck: positive: Nml inspection Respiratory: positive: Chest non-tender, No respiratory distress, Breath sounds nml Cardiovascular: positive: Regular rate & rhythm, No murmur, No gallop, Irregularly irregular Abdomen: positive: Non-tender, No organomegaly, Nml bowel sounds Skin: positive: Color nml, No rash, Warm Extremities: positive: Non-tender, No pedal edema Neurologic/Psychiatric: positive: Mood/affect nml. negative: Disoriented to person, Disoriented to place (Is not oriented to the date but is oriented to the month) Sepsis Event Note (H) - Evaluation Current Stage of Sepsis: Ruled out Conclusion/Plan - Problem List (1) Acute metabolic encephalopathy Conclusion/Plan: Current mental status appears to be somewhat close to baseline, but per , this is more confused than usual. This is fairly similar to her presentation during previous hospital stay, but given her deviation to baseline per family member, she will be placed in observation and started on IV Cipro, which is species targeted antibiotic therapy for the recent UTI. We will monitor for changes in mental status, and work towards discharge once mental status is cleared or back to to baseline. Additionally, will follow up lithium level.Though lithium toxicity is less likely given that this is apparently a more abrupt change. (2) UTI (urinary tract infection) Conclusion/Plan: Recently admitted on 12/27/2020 for UTI. Started on IV ceftriaxone pending urine culture results. Urine culture from recent hospitalization remarkable for presence of Klebsiella and E. coli, with the former resistant to amoxicillin. Start Cipro IV Which would effectively treat both organisms.Given that Jose catheter was changed at the last hospitalization, no need to change it again.She will discharge with a Jose catheter is this is a chronic indwelling Jose catheter, and the patient is undergoing a current work-up with urology outpatient. (3) Anemia Conclusion/Plan: H&H are stable and at baseline with no evidence of bleeding. Continue to monitor. (4) Bipolar disorder Conclusion/Plan: Unclear if this is playing a role in the variableMental status. Follow-up lithium level. Resume home medications for now. Qualifiers: Active/Remission status: currently active (5) COPD (chronic obstructive pulmonary disease) Conclusion/Plan: Stable without evidence of exacerbation. Monitor and as needed nebs. Qualifiers: COPD type: unspecified COPD Qualified Code(s): J44.9 - Chronic obstructive pulmonary disease, unspecified (6) Chronic back pain Conclusion/Plan: Chronic. Patient is currently denying any pain. Resume home medications With exception of gabapentin as this may be contributing to encephalopathic features. Qualifiers: Back pain location: low back pain (7) Chronic pain syndrome Conclusion/Plan: Resume medications minus gabapentin for now. (8) Constipation Conclusion/Plan: Resume bowel regimen. Qualifiers: Constipation type: other constipation type Qualified Code(s): K59.09 - Oth er constipation (9) Diabetes mellitus type 2, diet-controlled Conclusion/Plan: Controlled diabetic apparently and last A1c 4 days ago is 5.7. (10) Peripheral neuropathy Conclusion/Plan: Hold gabapentin, as with her recently impaired renal function this may be contributing to confusion Qualifiers: Peripheral neuropathy type: polyneuropathy associated with underlying disease Qualified Code(s): G63 - Polyneuropathy in diseases classified elsewhere - Lab Results Lab results reviewed: Yes Wally Bones: 12/30/20 17:22 12/30/20 17:22 - Diagnostic Imaging Results Diagnostic Imaging Results: positive: Final report reviewed Core Measures - Anticipated LOS I expect patient to be DC'd or transferred within 96 hours.: Yes - DVT/VTE - Prophylaxis VTE/DVT Device ordered at admit?: Yes
[2020-12-30] MEDS: HEPARIN 5,000 UNIT/ML VIAL SUBQ SCH (20:38)
[2020-12-30] MEDS: PROPRANOLOL 10 MG TABLET PO SCH (20:39)
[2020-12-30] MEDS: risperiDONE 1 MG TABLET PO SCH (20:39)
[2020-12-30] MEDS: VENLAFAXINE 37.5 MG TABLET PO SCH (20:40)
[2020-12-31] MEDS ORDERED: SODIUM CHLORIDE FLUSH 0.9% 10 ML SYRINGE IVP PRN (01:57)
[2020-12-31 04:50] LABS: HCT - HEMATOCRIT 32.1 % (37.0-47.0); HGB - HEMOGLOBIN 9.7 g/dL (12.0-16.0); MEAN CORPUSCULAR HEMOGLOBIN 29.1 pg (27.0-31.0); MEAN CORPUSCULAR HGB CONC 30.2 g/dL (32.0-36.0); MEAN CORPUSCULAR VOLUME 96.4 fL (81.0-99.0); MEAN PLATELET VOLUME 10.5 fL (7.9-10.8); RED BLOOD COUNT 3.33 10^6/uL (4.20-5.40); RED CELL DISTRIBUTION WIDTH 15.8 % (12.0-15.0); WHITE BLOOD COUNT 6.8 x10^3/uL (4.8-10.8)
[2020-12-31 04:55] LABS: CALCIUM 9.2 mg/dL (8.5-10.3); CREATININE 1.9 mg/dL (0.4-1.0); POTASSIUM 4.4 mmol/L (3.5-5.0)
[2020-12-31] MEDS: gemfibroziL 600 MG TABLET PO SCH ×2 (06:30→15:57)
[2020-12-31] MEDS: LEVOTHYROXINE 25 MCG TABLET PO SCH (06:30)
[2020-12-31] MEDS ORDERED: DEXTROSE 5% 1,000 ML IV SCH (08:00)
[2020-12-31] MEDS: PROPRANOLOL 10 MG TABLET PO SCH ×2 (08:28→10:49)
[2020-12-31] MEDS: SODIUM CHLORIDE FLUSH 0.9% 10 ML SYRINGE IVP SCH ×2 (08:29→15:57)
[2020-12-31] MEDS: VENLAFAXINE 37.5 MG TABLET PO SCH ×3 (08:34→20:41)
[2020-12-31] MEDS: HEPARIN 5,000 UNIT/ML VIAL SUBQ SCH ×2 (08:34→20:41)
[2020-12-31] MEDS: CIPROFLOXACIN 400 MG/200 ML 400 MG/200 ML BAG IV SCH ×2 (08:50→20:40)
--- NOTE | 2020-12-31 08:59 | PROVIDER PROGRESS NOTE ---
Subjective - Prog Note Date Prog Note Date: 12/31/20 - Subjective Subjective: She still feels confused. She knows she of the hospital but cannot recall the year. She was able to extremity the month. She is asking for her Suboxone this morning. She denies any pain. Current Medications - Current Medications Current Medications: Active Medications Buprenorphine HCl (Buprenorphine/Naloxone 8-2 Mg Tab) 1 tab SL BID JARETT Buprenorphine HCl (Buprenorphine/Naloxone 8-2 Mg Tab) 0.5 tab SL 1200 [facility] Last Admin: 12/31/20 13:35 Dose: 0.5 tab Documented by: Gemfibrozil (Gemfibrozil 600 Mg Tablet) 600 mg PO BIDAC [facility] Last Admin: 12/31/20 06:30 Dose: 600 mg Documented by: Heparin Sodium (Porcine) (Heparin 5,000 Unit/Ml Vial) 5,000 unit SUBQ BID [facility] Last Admin: 12/31/20 08:34 Dose: 5,000 unit Documented by: Ciprofloxacin (Cipro 400 Mg/200 Ml) 400 mg in 200 mls @ 200 mls/hr IV BID [facility] Last Infusion: 12/31/20 09:50 Dose: Infused Documented by: Dextrose (D5w) 1,000 mls @ 100 mls/hr IV .Q10H [facility] Stop: 12/31/20 17:59 Last Admin: 12/31/20 08:29 Dose: 100 mls/hr Documented by: Levothyroxine Sodium (Levothyroxine 25 Mcg Tablet) 25 mcg PO QDAC [facility] Last Admin: 12/31/20 06:30 Dose: 25 mcg Documented by: Ondansetron HCl (Ondansetron Odt 4 Mg Tablet) 4 mg TL Q6H PRN PRN Reason: Nausea / Vomiting Polyethylene Glycol (Polyethylene Glycol 3350 17 Gm Packet) 17 gm PO DAILY PRN PRN Reason: Bowel Protocol Propranolol HCl (Propranolol 10 Mg Tablet) 20 mg PO BID [facility] Last Admin: 12/31/20 10:49 Dose: Not Given Documented by: Risperidone (Risperidone 1 Mg Tablet) 1 mg PO QPM [facility] Last Admin: 12/30/20 20:39 Dose: 1 mg Documented by: Sodium Chloride (Sodium Chloride Flush 0.9% 10 Ml Syringe) 10 ml IVP 0100,0900,1700 [facility] Last Admin: 12/31/20 08:29 Dose: 10 ml Documented by: Sodium Chloride (Sodium Chloride Flush 0.9% 10 Ml Syringe) 10 ml IVP PRN PRN PRN Reason: Per Line Care protocol Venlafaxine HCl (Venlafaxine 37.5 Mg Tablet) 37.5 mg PO BID JARETT Last Admin: 12/31/20 10:50 Dose: Not Given Documented by: Omeprazole 20 mg PO QDAC 11/15/19 Buprenorphine HCl/Naloxone HCl [Suboxone 8-2 mg Sl tab] 1 tab SL QPM 08/15/20 Cholecalciferol [Vitamin D3] 25 mcg PO DAILY 08/15/20 Furosemide [Lasix] 20 mg PO DAILY 08/15/20 Gabapentin [Neurontin] 100 mg PO QPM 08/15/20 Propranolol [Inderal] 20 mg PO DAILY 08/15/20 Aspirin [Aspirin EC] 81 mg PO DAILY 12/27/20 Buprenorphine HCl/Naloxone HCl [Suboxone 8-2 mg Tab] 0.5 tab PO 1200 12/27/20 Buprenorphine HCl/Naloxone HCl [Suboxone 8-2 mg Tab] 1 tab PO DAILY 12/27/20 Propranolol [Inderal] 10 mg PO QPM 12/27/20 Objective - Vital Signs/Intake & Output Reviewed Vital Signs: Yes Vital Signs: Vital Signs x48h Temp Pulse Resp BP Pulse Ox 12/31/20 07:54 36.5 C 49 L 18 106/42 L 100 12/31/20 05:01 36.3 C L 68 20 136/58 H 97 12/31/20 01:40 36.5 C 50 L 20 103/55 L 100 Intake & Output: Intake & Output 12/28/20 12/29/20 12/30/20 12/31/20 23:59 23:59 23:59 23:59 Intake Total 1200 500 Output Total 675 1400 Balance 525 -900 - Objective General Appearance: positive: No acute distress Eyes Bilateral: positive: Normal inspection, PERRL, Conjunctivae nml, Other (Pupils constricted but reactive to light.) ENT: positive: ENT inspection nml Neck: positive: Nml inspection Respiratory: positive: No respiratory distress. negative: Wheezes, Rales Cardiovascular: positive: Regular rate & rhythm. negative: Tachycardia Abdomen: positive: Non-tender, No distention. negative: Tenderness Skin: positive: Warm, Dry Extremities: positive: Pedal edema (Trace edema bilateral lower extremities.) Neurologic/Psychiatric: positive: Disoriented to time (Oriented to month but not to year.), Other (Her answers are delayed and she appears to have cognitive slowing. She will stare blankly at times. She is moving all 4 extremities without any focal deficits.). negative: Disoriented to person, Disoriented to place - Lab Results Fish Bones: 12/31/20 04:30 12/31/20 04:30 Other Labs: Lab Results x24hrs 12/31/20 12/31/20 12/30/20 Range/Units 04:30 04:30 18:24 WBC 6.8 (4.8-10.8) x10^3/uL RBC 3.33 L (4.20-5.40) 10^6/uL Hgb 9.7 L (12.0-16.0) g/dL Hct 32.1 L (37.0-47.0) % MCV 96.4 (81.0-99.0) fL MCH 29.1 (27.0-31.0) pg MCHC 30.2 L (32.0-36.0) g/dL RDW 15.8 H (12.0-15.0) % Plt Count 306 (130-450) 10^3/uL MPV 10.5 (7.9-10.8) fL Neut # (Auto) (1.5-6.6) 10^3/uL Lymph # (Auto) (1.5-3.5) 10^3/uL [place] # (Auto) (0.0-1.0) 10^3/uL Eos # (Auto) (0.0-0.7) 10^3/uL Baso # (Auto) (0.0-0.1) 10^3/uL Absolute Nucleated RBC x10^3/uL Nucleated RBC % /100WBC Sodium 147 H (135-145) mmol/L Potassium 4.4 (3.5-5.0) mmol/L Chloride 115 H (101-111) mmol/L Carbon Dioxide 21 (21-32) mmol/L Anion Gap 11.0 (6-13) BUN 24 H (6-20) mg/dL Creatinine 1.9 H (0.4-1.0) mg/dL Estimated GFR (MDRD) 26 L (>89) Glucose 84 (70-100) mg/dL Lactic Acid (0.5-2.2) mmol/L Calcium 9.2 (8.5-10.3) mg/dL Total Bilirubin (0.2-1.0) mg/dL AST (10-42) IU/L ALT (10-60) IU/L Alkaline Phosphatase (42-121) IU/L Total Protein (6.7-8.2) g/dL Albumin (3.2-5.5) g/dL Globulin (2.1-4.2) g/dL Albumin/Globulin Ratio (1.0-2.2) Urine Color Urine Clarity (CLEAR) Urine pH (5.0-7.5) PH Ur Specific [place] (1.002-1.030) Urine Protein (NEGATIVE) mg/dL Urine Glucose (UA) (NEGATIVE) mg/dL Urine Ketones (NEGATIVE) mg/dL Urine Occult Blood (NEGATIVE) Urine Nitrite (NEGATIVE) Urine Bilirubin (NEGATIVE) Urine Urobilinogen (NORMAL) E.U./dL Ur Leukocyte Esterase (NEGATIVE) Urine RBC (0-5) /HPF Urine WBC (0-5) /HPF Urine WBC Clumps Ur Squamous Epith Cells (<= Few) Urine Bacteria (None Seen) /HPF Ur Microscopic Review Urine Culture Comments Last Dose Date Not Reportable Last Dose Time Not Reportable Urine Opiates Screen (NEGATIVE) Ur Oxycodone Screen (NEGATIVE) Urine Methadone Screen (NEGATIVE) Ur Propoxyphene Screen (NEGATIVE) Ur Barbiturates Screen (NEGATIVE) Ur Tricyclics Screen (NEGATIVE) Ur Phencyclidine Scrn (NEGATIVE) Ur Amphetamine Screen (NEGATIVE) U Methamphetamines Scrn (NEGATIVE) U Benzodiazepines Scrn (NEGATIVE) [place] 0.80 mmol/L Urine Cocaine Screen (NEGATIVE) U Cannabinoids Screen (NEGATIVE) Ethyl Alcohol mg/dL 12/30/20 12/30/20 12/30/20 Range/Units 17:22 17:22 17:22 WBC (4.8-10.8) x10^3/uL RBC (4.20-5.40) 10^6/uL Hgb (12.0-16.0) g/dL Hct (37.0-47.0) % MCV (81.0-99.0) fL MCH (27.0-31.0) pg MCHC (32.0-36.0) g/dL RDW (12.0-15.0) % Plt Count (130-450) 10^3/uL MPV (7.9-10.8) fL Neut # (Auto) (1.5-6.6) 10^3/uL Lymph # (Auto) (1.5-3.5) 10^3/uL [place] # (Auto) (0.0-1.0) 10^3/uL Eos # (Auto) (0.0-0.7) 10^3/uL Baso # (Auto) (0.0-0.1) 10^3/uL Absolute Nucleated RBC x10^3/uL Nucleated RBC % /100WBC Sodium (135-145) mmol/L Potassium (3.5-5.0) mmol/L Chloride (101-111) mmol/L Carbon Dioxide (21-32) mmol/L Anion Gap (6-13) BUN (6-20) mg/dL Creatinine (0.4-1.0) mg/dL Estimated GFR (MDRD) (>89) Glucose (70-100) mg/dL Lactic Acid (0.5-2.2) mmol/L Calcium (8.5-10.3) mg/dL Total Bilirubin (0.2-1.0) mg/dL AST (10-42) IU/L ALT (10-60) IU/L Alkaline Phosphatase (42-121) IU/L Total Protein (6.7-8.2) g/dL Albumin (3.2-5.5) g/dL Globulin (2.1-4.2) g/dL Albumin/Globulin Ratio (1.0-2.2) Urine Color YELLOW Urine Clarity CLEAR (CLEAR) Urine pH 6.0 (5.0-7.5) PH Ur Specific [place] 1.010 (1.002-1.030) Urine Protein NEGATIVE (NEGATIVE) mg/dL Urine Glucose (UA) NEGATIVE (NEGATIVE) mg/dL Urine Ketones NEGATIVE (NEGATIVE) mg/dL Urine Occult Blood NEGATIVE (NEGATIVE) Urine Nitrite NEGATIVE (NEGATIVE) Urine Bilirubin NEGATIVE (NEGATIVE) Urine Urobilinogen 0.2 (NORMAL) (NORMAL) E.U./dL Ur Leukocyte Esterase SMALL H (NEGATIVE) Urine RBC 0-5 (0-5) /HPF Urine WBC 11-25 H (0-5) /HPF Urine WBC Clumps PRESENT Ur Squamous Epith Cells RARE Squamous (<= Few) Urine Bacteria Rare (None Seen) /HPF Ur Microscopic Review INDICATED Urine Culture Comments INDICATED Last Dose Date Last Dose Time Urine Opiates Screen NEGATIVE (NEGATIVE) Ur Oxycodone Screen NEGATIVE (NEGATIVE) Urine Methadone Screen NEGATIVE (NEGATIVE) Ur Propoxyphene Screen NEGATIVE (NEGATIVE) Ur Barbiturates Screen NEGATIVE (NEGATIVE) Ur Tricyclics Screen NEGATIVE (NEGATIVE) Ur Phencyclidine Scrn NEGATIVE (NEGATIVE) Ur Amphetamine Screen NEGATIVE (NEGATIVE) U Methamphetamines Scrn NEGATIVE (NEGATIVE) U Benzodiazepines Scrn NEGATIVE (NEGATIVE) [place] mmol/L Urine Cocaine Screen NEGATIVE (NEGATIVE) U Cannabinoids Screen NEGATIVE (NEGATIVE) Ethyl Alcohol < 5.0 mg/dL 12/30/20 12/30/20 12/30/20 Range/Units 17:22 17:22 17:22 WBC 8.9 (4.8-10.8) x10^3/uL RBC 3.63 L (4.20-5.40) 10^6/uL Hgb 10.6 L (12.0-16.0) g/dL Hct 35.4 L (37.0-47.0) % MCV 97.5 (81.0-99.0) fL MCH 29.2 (27.0-31.0) pg MCHC 29.9 L (32.0-36.0) g/dL RDW 15.7 H (12.0-15.0) % Plt Count 343 (130-450) 10^3/uL MPV 10.2 (7.9-10.8) fL Neut # (Auto) 6.2 (1.5-6.6) 10^3/uL Lymph # (Auto) 1.1 L (1.5-3.5) 10^3/uL [place] # (Auto) 0.9 (0.0-1.0) 10^3/uL Eos # (Auto) 0.5 (0.0-0.7) 10^3/uL Baso # (Auto) 0.1 (0.0-0.1) 10^3/uL Absolute Nucleated RBC 0.00 x10^3/uL Nucleated RBC % 0.0 /100WBC Sodium 142 (135-145) mmol/L Potassium 4.0 (3.5-5.0) mmol/L Chloride 109 (101-111) mmol/L Carbon Dioxide 24 (21-32) mmol/L Anion Gap 9.0 (6-13) BUN 24 H (6-20) mg/dL Creatinine 2.1 H (0.4-1.0) mg/dL Estimated GFR (MDRD) 23 L (>89) Glucose 107 H (70-100) mg/dL Lactic Acid 1.5 (0.5-2.2) mmol/L Calcium 9.5 (8.5-10.3) mg/dL Total Bilirubin 0.4 (0.2-1.0) mg/dL AST < 10 L (10-42) IU/L ALT < 10 L (10-60) IU/L Alkaline Phosphatase 167 H (42-121) IU/L Total Protein 6.6 L (6.7-8.2) g/dL Albumin 3.2 (3.2-5.5) g/dL Globulin 3.4 (2.1-4.2) g/dL Albumin/Globulin Ratio 0.9 L (1.0-2.2) Urine Color Urine Clarity (CLEAR) Urine pH (5.0-7.5) PH Ur Specific [place] (1.002-1.030) Urine Protein (NEGATIVE) mg/dL Urine Glucose (UA) (NEGATIVE) mg/dL Urine Ketones (NEGATIVE) mg/dL Urine Occult Blood (NEGATIVE) Urine Nitrite (NEGATIVE) Urine Bilirubin (NEGATIVE) Urine Urobilinogen (NORMAL) E.U./dL Ur Leukocyte Esterase (NEGATIVE) Urine RBC (0-5) /HPF Urine WBC (0-5) /HPF Urine WBC Clumps Ur Squamous Epith Cells (<= Few) Urine Bacteria (None Seen) /HPF Ur Microscopic Review Urine Culture Comments Last Dose Date Last Dose Time Urine Opiates Screen (NEGATIVE) Ur Oxycodone Screen (NEGATIVE) Urine Methadone Screen (NEGATIVE) Ur Propoxyphene Screen (NEGATIVE) Ur Barbiturates Screen (NEGATIVE) Ur Tricyclics Screen (NEGATIVE) Ur Phencyclidine Scrn (NEGATIVE) Ur Amphetamine Screen (NEGATIVE) U Methamphetamines Scrn (NEGATIVE) U Benzodiazepines Scrn (NEGATIVE) [place] mmol/L Urine Cocaine Screen (NEGATIVE) U Cannabinoids Screen (NEGATIVE) Ethyl Alcohol mg/dL ABX Reporting Has patient been on IV antibiotics over the past 48 hours?: Yes Sepsis Event Note (H) - Evaluation Current Stage of Sepsis: Ruled out Assessment/Plan - Problem List (1) Acute metabolic encephalopathy Impression: I believe this is likely multifactorial and secondary to polypharmacy versus underlying urinary tract infection or potentially even chronic lithium toxicity. She was seen by social work this morning and they also confirm that she is most definitely altered compared to just a couple of days ago when she was seen by them over the weekend. She is quite delayed in her speech does not have any obvious focal deficits to suggest a stroke. At this time we will continue to hydrate her with IV fluids and hold sedatives. We will also hold her lithium for the time being. Continue IV antibiotics for urinary tract action with ciprofloxacin. We will discuss with her psychiatrist regarding potential need for lithium versus considering another medication for her bipolar disorder. (2) UTI (urinary tract infection) Impression: Her prior urine culture grew Klebsiella and Enterococcus. The catheter was changed during last hospitalization. She is on ciprofloxacin now and both of these bacteria are sensitive to it. Today is day 2 of treatment. We will plan for 5 to 7 days of treatment. Qualifiers: Urinary tract infection type: catheter-associated UTI (3) Chronic kidney disease (CKD) Impression: She has CKD stage IV and her renal function is at baseline. This may be secondary to her history of diabetes or due to chronic lithium toxicity. Her renal function is stable and we will continue IV hydration. (4) Chronic pain syndrome Impression: We will continue her home Suboxone. (5) Hypothyroidism Impression: TSH was within normal limits. Continue Synthroid. (6) Bipolar disorder Impression: Her bipolar disorder and she is on lithium for this. Given her mentation and chronic kidney disease, concern is that there could be a component of chronic lithium toxicity despite her lithium being therapeutic. Will discuss with her psychiatrist for further recommendations. (7) COPD (chronic obstructive pulmonary disease) Impression: Stable and not in exacerbation. Continue albuterol as needed. Qualifiers: COPD type: unspecified COPD Qualified Code(s): J44.9 - Chronic obstructive pulmonary disease, unspecified
[2020-12-31] MEDS ORDERED: METOPROLOL SUCCINATE 50 MG TABLET PO SCH (09:00)
--- NOTE | 2020-12-31 10:52 | PHARMACY PROGRESS NOTE ---
- Best Possible Medication History Admit Date and Time: 12/31/20 0927 Processed by: Nursing Medication History completed: Yes Secondary Source(s): Spouse/Significant other, Pharmacy records, Insurance records Med list confirmed by RN. documented discussion with patient's regarding home medications. Insurance and pharmacy fill information used to double check doses. As the person ultimately responsible for medication therapy, providers are able to order a medication from an existing home medication list in [facility] via the "Reconcile Routine" prior to Confirmation of that medication by computer support specialist instructor. Such practice is discouraged except when the physician, in their clinical judgment, deems that a medical need exists for a medication without regard to previous use.
[2020-12-31] MEDS: BUPRENORPHINE/NALOXONE 8-2 MG TAB SL SCH ×2 (13:35→20:41)
[2020-12-31] MEDS ORDERED: NON FORMULARY MED PO SCH (14:00)
[2020-12-31] MEDS ORDERED: ALBUTEROL NEB 2.5 MG/3 ML INH PRN (14:23)
[2020-12-31] MEDS ORDERED: SENNA 8.6 MG TABLET PO PRN (18:32)
[2020-12-31] MEDS ORDERED: DOCUSATE SODIUM 250 MG CAPSULE PO PRN (18:32)
[2020-12-31] MEDS ORDERED: SODIUM CHLORIDE 0.9% 250 ML IV PRN (19:43)
[2020-12-31] MEDS: risperiDONE 1 MG TABLET PO SCH (20:41)
[2020-12-31] MEDS ORDERED: polyethylene glycoL 3350 17 GM PACKET PO PRN (22:04)
[2021-01-01] MEDS: SODIUM CHLORIDE FLUSH 0.9% 10 ML SYRINGE IVP SCH ×3 (00:33→17:23)
[2021-01-01 05:50] LABS: BASOPHILS % (AUTO) 0.5 %; EOSINOPHILS # (AUTO) 0.3 10^3/uL (0.0-0.7); EOSINOPHILS % (AUTO) 5.3 %; HCT - HEMATOCRIT 31.6 % (37.0-47.0); HGB - HEMOGLOBIN 9.3 g/dL (12.0-16.0); LYMPHOCYTES # (AUTO) 1.3 10^3/uL (1.5-3.5); LYMPHOCYTES % (AUTO) 20.5 %; MEAN CORPUSCULAR HEMOGLOBIN 28.6 pg (27.0-31.0); MEAN CORPUSCULAR HGB CONC 29.4 g/dL (32.0-36.0); MEAN CORPUSCULAR VOLUME 97.2 fL (81.0-99.0); MEAN PLATELET VOLUME 10.9 fL (7.9-10.8); MONOCYTES # (AUTO) 0.6 10^3/uL (0.0-1.0); MONOCYTES % (AUTO) 9.1 %; NEUTROPHILS # (AUTO) 4.1 10^3/uL (1.5-6.6); NEUTROPHILS % (AUTO) 63.5 %; PLT - PLATELET COUNT 296 10^3/uL (130-450); RED BLOOD COUNT 3.25 10^6/uL (4.20-5.40); RED CELL DISTRIBUTION WIDTH 16.2 % (12.0-15.0); WHITE BLOOD COUNT 6.5 x10^3/uL (4.8-10.8)
[2021-01-01 05:58] LABS: CALCIUM 9.4 mg/dL (8.5-10.3); POTASSIUM 4.1 mmol/L (3.5-5.0)
[2021-01-01] MEDS: LEVOTHYROXINE 25 MCG TABLET PO SCH (06:03)
[2021-01-01] MEDS: gemfibroziL 600 MG TABLET PO SCH ×2 (06:03→16:22)
[2021-01-01] MEDS: CIPROFLOXACIN 400 MG/200 ML 400 MG/200 ML BAG IV SCH (08:08)
[2021-01-01] MEDS: BUPRENORPHINE/NALOXONE 8-2 MG TAB SL SCH ×3 (08:08→21:09)
[2021-01-01] MEDS: VENLAFAXINE 37.5 MG TABLET PO SCH ×2 (08:09→21:09)
[2021-01-01] MEDS: HEPARIN 5,000 UNIT/ML VIAL SUBQ SCH ×2 (08:09→21:09)
[2021-01-01] MEDS ORDERED: polyethylene glycoL 3350 17 GM PACKET PO SCH (09:00)
[2021-01-01] MEDS ORDERED: CALCIUM CARBONATE CHEW 500 MG TABLET PO PRN (15:36)
--- NOTE | 2021-01-01 15:55 | PROVIDER PROGRESS NOTE ---
Subjective - Prog Note Date Prog Note Date: 01/01/21 - Subjective Subjective: She feels back to her baseline today. Denies any pain at the moment. She feels like she is ready to go home soon. Current Medications - Current Medications Current Medications: Active Medications Albuterol (Albuterol Neb 2.5 Mg/3 Ml) 2.5 mg INH RTQ4H PRN PRN Reason: Wheezing Buprenorphine HCl (Buprenorphine/Naloxone 8-2 Mg Tab) 1 tab SL BID [facility] Last Admin: 01/01/21 08:08 Dose: 1 tab Documented by: Buprenorphine HCl (Buprenorphine/Naloxone 8-2 Mg Tab) 0.5 tab SL 1200 [facility] Last Admin: 01/01/21 13:45 Dose: 0.5 tab Documented by: Calcium Carbonate/Glycine (Calcium Carbonate Chew 500 Mg Tablet) 500 mg PO BID PRN PRN Reason: Heartburn Ciprofloxacin (Ciprofloxacin 250 Mg Tablet) 500 mg PO BID [facility] Docusate Sodium (Docusate Sodium 250 Mg Capsule) 250 - 500 mg PO DAILY PRN PRN Reason: Constipation Gemfibrozil (Gemfibrozil 600 Mg Tablet) 600 mg PO BIDAC [facility] Last Admin: 01/01/21 06:03 Dose: 600 mg Documented by: Heparin Sodium (Porcine) (Heparin 5,000 Unit/Ml Vial) 5,000 unit SUBQ BID [facility] Last Admin: 01/01/21 08:09 Dose: 5,000 unit Documented by: Sodium Chloride (Normal Saline 0.9%) 250 mls @ 20 mls/hr IV Q24H PRN PRN Reason: TKO RATE Last Infusion: 12/31/20 20:42 Dose: 0 mls/hr Documented by: Levothyroxine Sodium (Levothyroxine 25 Mcg Tablet) 25 mcg PO QDAC [facility] Last Admin: 01/01/21 06:03 Dose: 25 mcg Documented by: Ondansetron HCl (Ondansetron Odt 4 Mg Tablet) 4 mg TL Q6H PRN PRN Reason: Nausea / Vomiting Polyethylene Glycol (Polyethylene Glycol 3350 17 Gm Packet) 17 gm PO DAILY PRN PRN Reason: Constipation Risperidone (Risperidone 1 Mg Tablet) 1 mg PO QPM [facility] Last Admin: 12/31/20 20:41 Dose: 1 mg Documented by: Senna (Senna 8.6 Mg Tablet) 8.6 - 17.2 mg PO DAILY PRN PRN Reason: Constipation Sodium Chloride (Sodium Chloride Flush 0.9% 10 Ml Syringe) 10 ml IVP 0100,0900,1700 [facility] Last Admin: 01/01/21 08:09 Dose: 10 ml Documented by: Sodium Chloride (Sodium Chloride Flush 0.9% 10 Ml Syringe) 10 ml IVP PRN PRN PRN Reason: Per Line Care protocol Venlafaxine HCl (Venlafaxine 37.5 Mg Tablet) 37.5 mg PO BID [facility] Last Admin: 01/01/21 08:09 Dose: 37.5 mg Documented by: Omeprazole 20 mg PO QDAC 11/15/19 Buprenorphine HCl/Naloxone HCl [Suboxone 8-2 mg Sl tab] 1 tab SL QPM 08/15/20 Cholecalciferol [Vitamin D3] 25 mcg PO DAILY 08/15/20 Furosemide [Lasix] 20 mg PO DAILY 08/15/20 Gabapentin [Neurontin] 100 mg PO QPM 08/15/20 Propranolol [Inderal] 20 mg PO DAILY 08/15/20 Aspirin [Aspirin EC] 81 mg PO DAILY 12/27/20 Buprenorphine HCl/Naloxone HCl [Suboxone 8-2 mg Tab] 0.5 tab PO 1200 12/27/20 Buprenorphine HCl/Naloxone HCl [Suboxone 8-2 mg Tab] 1 tab PO DAILY 12/27/20 Propranolol [Inderal] 10 mg PO QPM 12/27/20 Objective - Vital Signs/Intake & Output Reviewed Vital Signs: Yes Vital Signs: Vital Signs x48h Temp Pulse Resp BP Pulse Ox 01/01/21 15:41 36.5 C 58 L 16 105/52 L 97 01/01/21 11:50 36.7 C 57 L 20 128/61 98 01/01/21 08:49 36.4 C L 49 L 18 132/51 H 99 Intake & Output: Intake & Output 12/29/20 12/30/20 12/31/20 01/01/21 23:59 23:59 23:59 23:59 Intake Total 1200 3254 1250 Output Total 675 2925 2200 Balance 525 787 -950 - Objective General Appearance: positive: No acute distress, Alert Eyes Bilateral: positive: Normal inspection, Conjunctivae nml ENT: positive: ENT inspection nml Neck: positive: Nml inspection Respiratory: positive: No respiratory distress. negative: Wheezes, Rales Cardiovascular: positive: Bradycardia. negative: Irregularly irregular, Tachycardia, Systolic murmur Abdomen: positive: Non-tender, No distention. negative: Tenderness Skin: positive: Warm, Dry Extremities: positive: Pedal edema (Trace edema bilateral lower extremities) Neurologic/Psychiatric: negative: Disoriented to person, Disoriented to place, Disoriented to time - Lab Results Fish Bones: 01/01/21 04:44 01/01/21 04:44 Other Labs: Lab Results x24hrs 01/01/21 01/01/21 Range/Units 04:44 04:44 WBC 6.5 (4.8-10.8) x10^3/uL RBC 3.25 L (4.20-5.40) 10^6/uL Hgb 9.3 L (12.0-16.0) g/dL Hct 31.6 L (37.0-47.0) % MCV 97.2 (81.0-99.0) fL MCH 28.6 (27.0-31.0) pg MCHC 29.4 L (32.0-36.0) g/dL RDW 16.2 H (12.0-15.0) % Plt Count 296 (130-450) 10^3/uL MPV 10.9 H (7.9-10.8) fL Neut # (Auto) 4.1 (1.5-6.6) 10^3/uL Lymph # (Auto) 1.3 L (1.5-3.5) 10^3/uL [place] # (Auto) 0.6 (0.0-1.0) 10^3/uL Eos # (Auto) 0.3 (0.0-0.7) 10^3/uL Baso # (Auto) 0.0 (0.0-0.1) 10^3/uL Absolute Nucleated RBC 0.00 x10^3/uL Nucleated RBC % 0.0 /100WBC Sodium 145 (135-145) mmol/L Potassium 4.1 (3.5-5.0) mmol/L Chloride 115 H (101-111) mmol/L Carbon Dioxide 22 (21-32) mmol/L Anion Gap 8.0 (6-13) BUN 21 H (6-20) mg/dL Creatinine 2.0 H (0.4-1.0) mg/dL Estimated GFR (MDRD) 25 L (>89) Glucose 85 (70-100) mg/dL Calcium 9.4 (8.5-10.3) mg/dL ABX Reporting Has patient been on IV antibiotics over the past 48 hours?: Yes Sepsis Event Note (H) - Evaluation Current Stage of Sepsis: Ruled out Assessment/Plan - Problem List (1) Acute metabolic encephalopathy Impression: I suspect is likely multifactorial related to polypharmacy as well as a urinary tract infection and potentially chronic lithium toxicity. She appears to be back to her baseline at this time. It appears her psychiatrist is not the one prescribing lithium but it is her primary care physician. I will attempt to contact them to discuss switching therapies but I will ultimately defer to them. If she is stable tomorrow then she can be discharged home. (2) UTI (urinary tract infection) Impression: His urine cultures grew Klebsiella Enterococcus. We have switched to oral ciprofloxacin today. We will plan for a total of 5 days of treatment. Today is day three. Qualifiers: Urinary tract infection type: catheter-associated UTI (3) Sinus bradycardia Impression: She has been bradycardic with heart rates in the 40s to low 50s. She did receive metoprolol and propanolol yesterday. I discontinued the metoprolol to avoid to beta-blockers but she continued to be bradycardic and so we have discontinued the propanolol today. Her heart rate has been stable and she not appear to be symptomatic. If her heart rate improved we will resume the propanolol otherwise we will discontinue this on discharge and have her follow- up with her primary care physician. Her TSH is within normal limits. We will look to obtain echocardiogram tomorrow as she has not had one in nearly 2 years. (4) Chronic kidney disease (CKD) Impression: She has CKD stage IV and her renal function is at baseline. Her renal function is stable at baseline. (5) Chronic pain syndrome Impression: Stable. We are continuing her Suboxone. (6) Hypothyroidism Impression: Stable. Continue Synthroid. (7) Bipolar disorder Impression: She is on lithium for this and I do wonder if she may have a component of chronic lithium toxicity although her lithium level was within normal limits. She has had multiple admissions for ataxia and encephalopathy. Her psychiatrist does not prescribe her lithium and so I will contact her primary care physician to discuss potential medication change. (8) COPD (chronic obstructive pulmonary disease) Impression: Stable. Continue albuterol as needed Qualifiers: COPD type: unspecified COPD Qualified Code(s): J44.9 - Chronic obstructive pulmonary disease, unspecified
[2021-01-01] MEDS: CIPROFLOXACIN 250 MG TABLET PO SCH (21:09)
[2021-01-01] MEDS: risperiDONE 1 MG TABLET PO SCH (21:09)
[2021-01-02] MEDS: SODIUM CHLORIDE FLUSH 0.9% 10 ML SYRINGE IVP SCH ×2 (00:57→08:28)
[2021-01-02 06:04] LABS: BASOPHILS # (AUTO) 0.1 10^3/uL (0.0-0.1); BASOPHILS % (AUTO) 0.8 %; EOSINOPHILS # (AUTO) 0.3 10^3/uL (0.0-0.7); HCT - HEMATOCRIT 35.9 % (37.0-47.0); HGB - HEMOGLOBIN 10.9 g/dL (12.0-16.0); LYMPHOCYTES # (AUTO) 1.5 10^3/uL (1.5-3.5); LYMPHOCYTES % (AUTO) 22.9 %; MEAN CORPUSCULAR HEMOGLOBIN 29.5 pg (27.0-31.0); MEAN CORPUSCULAR HGB CONC 30.4 g/dL (32.0-36.0); MEAN CORPUSCULAR VOLUME 97.3 fL (81.0-99.0); MEAN PLATELET VOLUME 10.4 fL (7.9-10.8); MONOCYTES # (AUTO) 0.6 10^3/uL (0.0-1.0); MONOCYTES % (AUTO) 9.5 %; NEUTROPHILS # (AUTO) 3.9 10^3/uL (1.5-6.6); NEUTROPHILS % (AUTO) 60.9 %; PLT - PLATELET COUNT 308 10^3/uL (130-450); RED BLOOD COUNT 3.69 10^6/uL (4.20-5.40); RED CELL DISTRIBUTION WIDTH 16.5 % (12.0-15.0); WHITE BLOOD COUNT 6.4 x10^3/uL (4.8-10.8)
[2021-01-02] MEDS: gemfibroziL 600 MG TABLET PO SCH (06:11)
[2021-01-02] MEDS: LEVOTHYROXINE 25 MCG TABLET PO SCH (06:11)
[2021-01-02 06:12] LABS: CALCIUM 9.9 mg/dL (8.5-10.3); CREATININE 2.1 mg/dL (0.4-1.0); POTASSIUM 4.3 mmol/L (3.5-5.0)
[2021-01-02] MEDS: CIPROFLOXACIN 250 MG TABLET PO SCH (08:16)
[2021-01-02] MEDS: HEPARIN 5,000 UNIT/ML VIAL SUBQ SCH (08:17)
[2021-01-02] MEDS: VENLAFAXINE 37.5 MG TABLET PO SCH (08:26)
[2021-01-02] MEDS: BUPRENORPHINE/NALOXONE 8-2 MG TAB SL SCH (08:58)
--- NOTE | 2021-01-02 10:12 | Discharge Plan ---
Discharge Plan Problem Reviewed?: Yes Disposition: Home Health Service Condition: Stable Prescriptions: Ciprofloxacin [Cipro] 500 mg PO BID 2 Days #8 tablet Pantoprazole [Protonix] 40 mg PO DAILY #30 tablet Diet: Regular Activity Restrictions: Activity as Tolerated Assistance Devices: [facility] Concerns: You were admitted to the hospital because of urinary tract infection. The antibiotics you were previously discharged on did not cover the bacteria that ended up growing in your urine. We treated you with it 2 days of IV antibiotics with improvement in your symptoms. We also treated you with IV fluids. You are now stable for discharge home. During this stay, it was also noted that your heart rate was on the lower side. You are on medications at home which can lower your heart rate and so we have discontinued both the metoprolol and propanolol. We recommend following up with your primary care physician. Plan of Treatment: Please take the antibiotic ciprofloxacin twice daily for 2 more days to complete a total of 5 days of treatment for the urinary tract infection. Please stop taking metoprolol and propanolol as these can both lower your heart rate and your heart rate has been low during this hospitalization. Please discuss with your primary care physician regarding the need for continuing lithium as you are at risk for becoming dehydrated and this can cause lithium toxicity. Care Goals: The goal is to prevent further hospitalizations for dehydration and urinary tract infections. Assessment: The patient expressed understanding of the treatment plan. Additional Instructions or Follow Up instructions: Please follow-up with your primary care physician in 1 week. Follow-Up Care: Home Health - RN No Smoking: If you smoke, Please STOP! Call for help. Follow-up with: Dae Malagon MD [Primary Care Provider] -
--- NOTE | 2021-01-02 10:17 | DISCHARGE SUMMARY ---
Discharge Summary Admit Date: 12/30/20 Discharge Date: 01/02/21 Discharging Provider: Jesse Aguero Primary Care Provider: Dae Cui Condition at Discharge: Stable Discharge Disposition: Home Health Service - DIAGNOSES Discharge Diagnoses with Status of Each Condition: Acute metabolic encephalopathy - resolved. UTI - resolved. Sinus bradycardia - stable. CKD, stage IV - stable. Chronic pain syndrome - stable. Hypothyroidism - stable. Bipolar one disorder - stable. COPD - stable. - HOSPITAL COURSE Hospital Course: She was admitted to the floor for encephalopathy which was thought to be secondary to dehydration and urinary tract infection given the antibiotic she was previously discharged on was not effective against both organisms that grew in her urine. She was treated with ciprofloxacin which cover the Klebsiella and Enterococcus. She improved with hydration and antibiotics. Although her lithium levels within normal limits, there was concern that she may have lithium toxicity at times given her chronic kidney disease and her multiple admissions for dehydration and renal dysfunction. We did discuss discontinuing the lithium but the patient prefers to continue it as she has been on it for 30+ years. I have asked her to follow-up with her primary care physician to consider an alternative treatment for her bipolar disorder. I also encourage her to discuss this with her psychiatrist. She was discharged on ciprofloxacin for two more days to complete 5 days of therapy. During the stay that she was bradycardic wi th heart rates in the high 40's to low 50's. She was asymptomatic but it was noted she was on metoprolol and propanolol. We discontinued the metoprolol initially but she continued to remain bradycardic and so we also discontinue the propanolol. Her TSH was within normal limits. I asked her to discontinue both of these medications on discharge and to follow-up with her primary care physician to consider resuming them when appropriate. - ALLERGIES Allergies/Adverse Reactions: Allergies Allergy/AdvReac Type Severity Reaction Status Date / Time NSAIDS (Non-Steroidal Allergy Mild Hives Verified 12/30/20 16:59 Anti-Inflamma acetaminophen Allergy Hives Verified 12/30/20 16:59 lisinopril Allergy Unknown Verified 12/30/20 16:59 Sulfa (Sulfonamide AdvReac Mild Rash Verified 12/30/20 16:59 Antibiotics) - MEDICATIONS Home Medications: Ambulatory Orders Medication Instructions Recorded Confirmed Levothyroxine Sodium 50 mcg PO QDAC #30 07/17/19 12/30/20 Brush Carbonate 300 mg PO DAILY #30 07/17/19 12/30/20 Venlafaxine HCl 75 mg PO BID #60 07/17/19 12/30/20 gemfibroziL [Gemfibrozil] 600 mg PO BID #60 07/17/19 12/30/20 risperiDONE [Risperdal] 1 mg PO QPM #30 07/17/19 12/30/20 Buprenorphine HCl/Naloxone HCl 1 tab SL QPM 08/15/20 12/31/20 [Suboxone 8-2 mg Sl tab] Cholecalciferol [Vitamin D3] 25 mcg PO DAILY 08/15/20 12/30/20 Gabapentin [Neurontin] 100 mg PO QPM 08/15/20 12/30/20 Aspirin [Aspirin EC] 81 mg PO DAILY 12/27/20 12/31/20 Buprenorphine HCl/Naloxone HCl 0.5 tab PO 1200 12/27/20 12/31/20 [Suboxone 8-2 mg Tab] Buprenorphine HCl/Naloxone HCl 1 tab PO DAILY 12/27/20 12/31/20 [Suboxone 8-2 mg Tab] Docusate Sodium 250Mg Capsule 250 - 500 mg PO DAILY 12/29/20 12/30/20 [Colace 250Mg Capsule] Ciprofloxacin [Cipro] 500 mg PO BID 2 Days #8 tablet 01/02/21 Pantoprazole [Protonix] 40 mg PO DAILY #30 tablet 01/02/21 - PHYSICAL EXAM AT DISCHARGE General Appearance: positive: No acute distress, Alert Eyes Bilateral: positive: Normal inspection ENT: positive: ENT inspection nml Neck: positive: Nml inspection Respiratory: positive: No respiratory distress. negative: Wheezes, Rales Cardiovascular: positive: Regular rate & rhythm. negative: Irregularly irregular, Tachycardia, Bradycardia, Systolic murmur Abdomen: positive: Non-tender, No distention. negative: Tenderness Skin: positive: Warm, Dry Extremities: positive: Pedal edema (Trace edema in lower extremities.) Neurologic/Psychiatric: positive: Other (No focal deficits.). negative: Disoriented to person, Disoriented to place, Disoriented to time Physical Exam Other/Comments: Vital Signs - 24 hr 01/01/21 01/01/21 01/02/21 20:15 20:21 00:54 Temperature 36.7 C 36.2 C L Heart Rate 53 L Heart Rate [ 53 L 58 L Brachial] Respiratory 16 16 15 Rate Blood Pressure 142/53 H 133/76 H [Right Brachial artery] O2 Saturation 100 97 01/02/21 01/02/21 01/02/21 06:20 07:57 10:54 Temperature 36.2 C L 36.3 C L 36.2 C L Heart Rate Heart Rate [ 52 L 50 L 58 L Brachial] Respiratory 14 16 16 Rate Blood Pressure 124/52 L 135/57 H 121/82 H [Right Brachial artery] O2 Saturation 100 100 100 Oxygen O2 Source [Without Activity] Room air O2 Source Room air - LABS Result Diagrams: 01/02/21 05:26 01/02/21 05:26 - SEPSIS Current Stage of Sepsis: Ruled out - FOLLOW UP Follow Up: She was asked to follow-up with her primary care physician in 1 week. Her heart rate will need to be monitored off of propanolol and metoprolol. I have asked her to discuss switching lithium to a different therapy for her bipolar diso rder. - TIME SPENT Time Spent in Discharge (Minutes): 32
[2021-01-02 10:57] VITALS: BP 121/82
== END 2021-01-02 11:25 | disposition home health service (06) | DRG 689 ==
LOC: ED 16:57 → MS2 18:33 → OBSVTOIN 12-31 09:27
PROVIDERS: ADMIT Family Medicine Sports Medicine; ATTEND Internal Medicine
DX: N39.0 Urinary tract infection, site not specified (principal); G93.41 Metabolic encephalopathy; R41.0 Disorientation, unspecified; F17.200 Nicotine dependence, unspecified, uncomplicated; Z16.11 Resistance to penicillins; N18.4 Chronic kidney disease, stage 4 (severe); B96.20 Unspecified Escherichia coli [E. coli] as the cause of diseases classified elsewhere; B96.1 Klebsiella pneumoniae [K. pneumoniae] as the cause of diseases classified elsewhere; I10 Essential (primary) hypertension; R00.1 Bradycardia, unspecified; E11.22 Type 2 diabetes mellitus with diabetic chronic kidney disease; I12.9 Hypertensive chronic kidney disease with stage 1 through stage 4 chronic kidney disease, or unspecified chronic kidney disease; F17.210 Nicotine dependence, cigarettes, uncomplicated; M54.9 Dorsalgia, unspecified; E03.9 Hypothyroidism, unspecified; F31.9 Bipolar disorder, unspecified; J44.9 Chronic obstructive pulmonary disease, unspecified; G89.4 Chronic pain syndrome; E86.0 Dehydration; Z79.899 Other long term (current) drug therapy; E66.9 Obesity, unspecified; Z68.37 Body mass index [BMI] 37.0-37.9, adult; Z79.891 Long term (current) use of opiate analgesic; E78.00 Pure hypercholesterolemia, unspecified; Z86.718 Personal history of other venous thrombosis and embolism; K59.09 Other constipation; K21.9 Gastro-esophageal reflux disease without esophagitis; D64.9 Anemia, unspecified; M54.5 Low back pain; E11.42 Type 2 diabetes mellitus with diabetic polyneuropathy; T44.7X5A Adverse effect of beta-adrenoreceptor antagonists, initial encounter; Y92.239 Unspecified place in hospital as the place of occurrence of the external cause
CPT/HCPCS: 36415; 70450; 80048; 80053; 80178; 80306; 81001; 83605; 85025; 85027; 87086; 96365; 96366; 96372; 97110; 97116; 97162; 99285; A9270; G0378; G0480; 80320; 81003

== ENCOUNTER 2021-01-27 17:32 | Emergency (ER) | payer MEDICARE, MEDICAID ==
[2021-01-27 18:22] LABS: BASOPHILS # (AUTO) 0.1 10^3/uL (0.0-0.1); BASOPHILS % (AUTO) 0.5 %; EOSINOPHILS # (AUTO) 0.3 10^3/uL (0.0-0.7); HGB - HEMOGLOBIN 11.6 g/dL (12.0-16.0); MEAN CORPUSCULAR HEMOGLOBIN 29.3 pg (27.0-31.0); MEAN CORPUSCULAR HGB CONC 30.5 g/dL (32.0-36.0); MEAN PLATELET VOLUME 10.5 fL (7.9-10.8); MONOCYTES # (AUTO) 0.6 10^3/uL (0.0-1.0); MONOCYTES % (AUTO) 4.8 %; NEUTROPHILS # (AUTO) 10.5 10^3/uL (1.5-6.6); NEUTROPHILS % (AUTO) 84.2 %; PLT - PLATELET COUNT 346 10^3/uL (130-450); RED BLOOD COUNT 3.96 10^6/uL (4.20-5.40); WHITE BLOOD COUNT 12.4 x10^3/uL (4.8-10.8)
[2021-01-27 18:35] LABS: ALBUMIN 3.4 g/dL (3.2-5.5); ALBUMIN/GLOBULIN RATIO 0.9 (1.0-2.2); ALKALINE PHOSPHATASE 174 IU/L (42-121); ALT ALANINE AMINOTRANSFERASE < 10 IU/L (10-60); AST ASPARTATE AMINOTRANSFERASE 13 IU/L (10-42); BILIRUBIN,TOTAL 0.7 mg/dL (0.2-1.0); BUN - BLOOD UREA NITROGEN 32 mg/dL (6-20); CALCIUM 9.9 mg/dL (8.5-10.3); CARBON DIOXIDE - CO2 23 mmol/L (21-32); CHLORIDE 101 mmol/L (101-111); CREATININE 2.4 mg/dL (0.4-1.0); GFR - MDRD 20 (>89); GLUCOSE 118 mg/dL (70-100); LIPASE 27 U/L (22-51); POTASSIUM 4.2 mmol/L (3.5-5.0); SODIUM 141 mmol/L (135-145); TOTAL PROTEIN 7.4 g/dL (6.7-8.2)
--- NOTE | 2021-01-27 19:33 | ED Physician Documentation ---
PD HPI ABD PAIN - Stated complaint Stated Complaint: CONSTIPATION - Chief complaint Chief Complaint: Abd Pain - History obtained from History obtained from: Patient - Additional information Additional information: 70-year-old woman for unknown reasons has not been able to have a bowel movement in the last 7 days. No recent medication changes. She has lower abdominal pain and rectal pressure. She is on Suboxone, but again that has been stable. She has chronic renal insufficiency and is on lithium. Review of Systems Constitutional: denies: Fever, Chills GI: reports: Abdominal Pain, Constipation. denies: Nausea, Hematemesis, Bloody / black stool PD PAST MEDICAL HISTORY - Past Medical History Cardiovascular: Hypertension, High cholesterol, Deep vein thrombosis, Murmur Respiratory: Asthma, COPD, Shortness of breath Neuro: Peripheral neuropathy Endocrine/Autoimmune: Type 2 diabetes GI: GERD, Chronic constipation, Pancreatitis : Incontinence, Chronic bladder infection HEENT: None Psych: Anxiety, Bipolar disorder, Other Musculoskeletal: Osteoarthritis, Fatigue, Chronic back pain, Other Derm: Other - Past Surgical History Past Surgical History: Yes General: EGD, Colonoscopy Ortho: Knee replacement, 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 HEENT: Tonsil/Adenoidectomy - Present Medications Home Medications: Ambulatory Orders Medication Instructions Recorded Confirmed Levothyroxine Sodium 50 mcg PO QDAC #30 07/17/19 12/30/20 Kelly Carbonate 300 mg PO DAILY #30 07/17/19 12/30/20 Venlafaxine HCl 75 mg PO BID #60 07/17/19 12/30/20 gemfibroziL [Gemfibrozil] 600 mg PO BID #60 07/17/19 12/30/20 risperiDONE [Risperdal] 1 mg PO QPM #30 07/17/19 12/30/20 Buprenorphine HCl/Naloxone HCl 1 tab SL QPM 08/15/20 12/31/20 [Suboxone 8-2 mg Sl tab] Cholecalciferol [Vitamin D3] 25 mcg PO DAILY 08/15/20 12/30/20 Gabapentin [Neurontin] 100 mg PO QPM 08/15/20 12/30/20 Aspirin [Aspirin EC] 81 mg PO DAILY 12/27/20 12/31/20 Buprenorphine HCl/Naloxone HCl 0.5 tab PO 1200 12/27/20 12/31/20 [Suboxone 8-2 mg Tab] Buprenorphine HCl/Naloxone HCl 1 tab PO DAILY 12/27/20 12/31/20 [Suboxone 8-2 mg Tab] Docusate Sodium 250Mg Capsule 250 - 500 mg PO DAILY 12/29/20 12/30/20 [Colace 250Mg Capsule] Ciprofloxacin [Cipro] 500 mg PO BID 2 Days #8 tablet 01/02/21 Pantoprazole [Protonix] 40 mg PO DAILY #30 tablet 01/02/21 - Allergies Allergies/Adverse Reactions: Allergies Allergy/AdvReac Type Severity Reaction Status Date / Time NSAIDS (Non-Steroidal Allergy Mild Hives Verified 12/30/20 16:59 Anti-Inflamma acetaminophen Allergy Hives Verified 12/30/20 16:59 lisinopril Allergy Unknown Verified 12/30/20 16:59 Sulfa (Sulfonamide AdvReac Mild Rash Verified 12/30/20 16:59 Antibiotics) green peppers Allergy Unknown Uncoded 01/27/21 18:05 - Social History Does the pt smoke?: Yes Smoking Status: Current every day smoker Does the pt drink ETOH?: No Does the pt have substance abuse?: No - Immunizations Immunizations are current?: Yes Immunizations: TDAP >10years/unknown - POLST Patient has POLST: No POLST Status: Full Code PD ED PE NORMAL - Vitals Vital signs reviewed: Yes - General General: Alert and oriented X 3, No acute distress - Abdomen Abdomen: Soft, Non tender - Rectal Rectal: Other (Exam done with [place] tech present and chaperoning. Large firm fecal impaction, fleets enema instilled during exam) - Neuro Neuro: Alert and oriented X 3, Normal speech - Psych Psych: Normal mood, Normal affect Results - Vitals Vitals: Vital Signs - 24 hr 01/27/21 01/27/21 01/27/21 17:59 20:05 21:46 Temperature 36.4 C L 36.5 C Heart Rate 83 75 76 Respiratory 18 18 18 Rate Blood Pressure 168/62 H 155/90 H 154/82 H O2 Saturation 98 98 97 Oxygen O2 Source [Without Activity] Room air O2 Source Room air - Labs Labs: Laboratory Tests 01/27/21 01/27/21 01/27/21 18:02 18:17 18:17 WBC 12.4 H RBC 3.96 L Hgb 11.6 L Hct 38.0 MCV 96.0 MCH 29.3 MCHC 30.5 L RDW 15.0 Plt Count 346 MPV 10.5 Neut # (Auto) 10.5 H Lymph # (Auto) 1.0 L [place] # (Auto) 0.6 Eos # (Auto) 0.3 Baso # (Auto) 0.1 Absolute Nucleated RBC 0.00 Nucleated RBC % 0.0 Sodium 141 Potassium 4.2 Chloride 101 Carbon Dioxide 23 Anion Gap 17.0 H BUN 32 H Creatinine 2.4 H Estimated GFR (MDRD) 20 L Glucose 118 H Calcium 9.9 Total Bilirubin 0.7 AST 13 ALT < 10 L Alkaline Phosphatase 174 H Total Protein 7.4 Albumin 3.4 Globulin 4.0 Albumin/Globulin Ratio 0.9 L Lipase 27 Last Dose Date Not Reportable Last Dose Time Not Reportable Kelly 1.02 Procedures - General procedure General procedure: After a combination of enemas and digital disimpaction a enormous amount of stool was liberated from her rectum and she felt much better. Departure - Departure Disposition: 01 Home, Self Care Clinical Impression: Fecal impaction, Chronic kidney disease (CKD) Condition: Good Record reviewed to determine appropriate education?: Yes Instructions: ED Impaction Fecal Treated Comments: Call your doctor to arrange a follow-up appointment, make the next available appointment. In the interim, return anytime if worse or if new symptoms develop. Discharge Date/Time: 01/27/21 21:46
[2021-01-27 19:49] LABS: LITHIUM 1.02 mmol/L
[2021-01-27] MEDS ORDERED: polyethylene glycoL 3350 17 GM PACKET PO STA (21:28)
[2021-01-27 21:47] VITALS: BP 154/82
== END 2021-01-27 21:46 | disposition home or self-care (01) ==
LOC: ED 17:32
DX: K56.41 Fecal impaction (principal); I12.9 Hypertensive chronic kidney disease with stage 1 through stage 4 chronic kidney disease, or unspecified chronic kidney disease; E11.22 Type 2 diabetes mellitus with diabetic chronic kidney disease; N18.9 Chronic kidney disease, unspecified; E11.42 Type 2 diabetes mellitus with diabetic polyneuropathy; F17.200 Nicotine dependence, unspecified, uncomplicated; Z79.82 Long term (current) use of aspirin
CPT/HCPCS: 36415; 80053; 80178; 83690; 85025; 99282; 99283; A9270

== ENCOUNTER 2021-03-04 18:30 | Outpatient (CLI) | payer MEDICARE, MEDICAID | END 2021-03-04 18:31 | disposition EMS.NT | LOC: EMS 18:30 | DX: T83.098A Other mechanical complication of other urinary catheter, initial encounter (principal); R53.83 Other fatigue ==

== ENCOUNTER 2021-03-05 00:55 | Outpatient (CLI) | payer MEDICARE, MEDICAID | END 2021-03-05 00:56 | disposition critical access hospital (66) | LOC: EMS 00:55 | DX: R53.1 Weakness (principal); R53.83 Other fatigue; R15.9 Full incontinence of feces; Z74.8 Other problems related to care provider dependency | CPT/HCPCS: A0425; A0429 ==

== ENCOUNTER 2021-03-05 01:27 | Emergency (ER) | payer MEDICARE, MEDICAID ==
--- NOTE | 2021-03-05 01:51 | ED Physician Documentation ---
History of Present Illness - Stated complaint Stated Complaint: WEAKNESS - Chief complaint Chief Complaint: Neuro - History obtained from History obtained from: Patient, EMS - History of Present Illness Timing: Unknown Improved by: no ameliorating factors Worsened by: no exacerbating factors - Additonal information Additional information: BIBA for generalized weakness, confusion. unclear as to timing/onset. Patient tells me she feels "strange" (per patient), but cannot elaborate when asked to. She describes generalized weakness but indicates that to me that she does not feel weaker than usual. Review of Systems Constitutional: denies: Fever, Chills, Fatigue, Sweats Cardiac: reports: Reviewed and negative Respiratory: reports: Reviewed and negative GI: reports: Reviewed and negative Neurologic: reports: Generalized weakness. denies: Focal weakness, Numbness, Headache PD PAST MEDICAL HISTORY - Past Medical History Cardiovascular: Hypertension, High cholesterol, Deep vein thrombosis, Murmur Respiratory: Asthma, COPD, Shortness of breath Neuro: Peripheral neuropathy Endocrine/Autoimmune: Type 2 diabetes GI: GERD, Chronic constipation, Pancreatitis : Incontinence, Chronic bladder infection HEENT: None Psych: Anxiety, Bipolar disorder, Other Musculoskeletal: Osteoarthritis, Fatigue, Chronic back pain, Other Derm: Other - Past Surgical History Past Surgical History: Yes General: EGD, Colonoscopy Ortho: Knee replacement, 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 HEENT: Tonsil/Adenoidectomy - Present Medications Home Medications: Ambulatory Orders Medication Instructions Recorded Confirmed Levothyroxine Sodium 50 mcg PO QDAC #30 07/17/19 03/05/21 gemfibroziL [Gemfibrozil] 600 mg PO BID #60 07/17/19 03/05/21 risperiDONE [Risperdal] 1 mg PO QPM #30 07/17/19 03/05/21 Cholecalciferol [Vitamin D3] 25 mcg PO DAILY 08/15/20 12/30/20 Gabapentin [Neurontin] 100 mg PO QPM 08/15/20 03/05/21 Aspirin [Aspirin EC] 81 mg PO DAILY 12/27/20 12/31/20 Docusate Sodium 250Mg Capsule 250 - 500 mg PO DAILY 12/29/20 03/05/21 [Colace 250Mg Capsule] Buprenorphine HCl/Naloxone HCl 1 each SL QID 03/05/21 03/05/21 [Buprenorphine-Nalox 8-2Mg Film] Furosemide [Lasix] 20 mg PO QID 03/05/21 03/05/21 LORazepam [Ativan] 0.5 mg PO BID PRN 03/05/21 03/05/21 Omeprazole Magnesium 20 mg PO QID 03/05/21 03/05/21 Propranolol [Inderal] 10 mg PO TID 03/05/21 03/05/21 Venlafaxine HCl 75 mg PO QID 03/05/21 03/05/21 - Allergies Allergies/Adverse Reactions: Allergies Allergy/AdvReac Type Severity Reaction Status Date / Time NSAIDS (Non-Steroidal Allergy Mild Hives Verified 12/30/20 16:59 Anti-Inflamma acetaminophen Allergy Hives Verified 12/30/20 16:59 lisinopril Allergy Unknown Verified 12/30/20 16:59 Sulfa (Sulfonamide AdvReac Mild Rash Verified 12/30/20 16:59 Antibiotics) green peppers Allergy Unknown Uncoded 01/27/21 18:05 - Social History Does the pt smoke?: Yes Smoking Status: Current every day smoker Does the pt drink ETOH?: No Does the pt have substance abuse?: No - Immunizations Immunizations are current?: Yes Immunizations: TDAP >10years/unknown - POLST Patient has POLST: No POLST Status: Full Code PD ED PE NORMAL - Vitals Vital signs reviewed: Yes - General General: No acute distress, Other (drowsy but awakens to voice with gentle tactile, answers questions although sometimes needs repeat prompting) - HEENT HEENT: PERRL, EOMI, Moist mucous membranes - Neck Neck: Supple, no meningeal sign - Cardiac Cardiac: RRR, No murmur - Respiratory Respiratory: No respiratory distress, Clear bilaterally - Abdomen Abdomen: Soft, Non tender - Derm Derm: Normal color, Warm and dry - Neuro Eye Opening: To Voice Motor: Obeys Commands Verbal: Oriented GCS Score: 14 PD ED PE EXPANDED - Extremities Extremities: Pedal edema bilateral Results - Vitals Vitals: Vital Signs - 24 hr 03/05/21 03/05/21 03/05/21 01:45 02:51 03:44 Temperature 36.2 C L Heart Rate 85 69 62 Respiratory 12 9 L 13 Rate Blood Pressure 133/61 H 124/55 L 107/41 L O2 Saturation 99 100 95 03/05/21 03/05/21 03/05/21 03:51 04:56 04:58 Temperature 36.4 C L Heart Rate 72 Respiratory 12 Rate Blood Pressure 115/58 L O2 Saturation 9 L 03/05/21 06:07 Temperature Heart Rate 63 Respiratory 12 Rate Blood Pressure 107/46 L O2 Saturation 96 Oxygen O2 Source [Without Activity] Room air O2 Source Room air - Labs Labs: Laboratory Tests 03/05/21 03/05/21 03/05/21 02:44 02:44 02:44 WBC 11.3 H RBC 3.75 L Hgb 10.9 L Hct 34.7 L MCV 92.5 MCH 29.1 MCHC 31.4 L RDW 14.6 Plt Count 353 MPV 10.1 Neut # (Auto) 9.1 H Lymph # (Auto) 1.0 L [place] # (Auto) 0.8 Eos # (Auto) 0.2 Baso # (Auto) 0.0 Absolute Nucleated RBC 0.00 Nucleated RBC % 0.0 Sodium 137 Potassium 3.8 Chloride 103 Carbon Dioxide 20 L Anion Gap 14.0 H BUN 44 H Creatinine 2.6 H Estimated GFR (MDRD) 18 L Glucose 99 Calcium 9.2 Total Bilirubin 1.0 AST 14 ALT < 10 L Alkaline Phosphatase 167 H Total Protein 6.6 L Albumin 3.2 Globulin 3.4 Albumin/Globulin Ratio 0.9 L Lipase 22 Urine Color YELLOW Urine Clarity CLEAR Urine pH 6.0 Ur Specific [place] <=1.005 Urine Protein NEGATIVE Urine Glucose (UA) NEGATIVE Urine Ketones NEGATIVE Urine Occult Blood TRACE-INTA Urine Nitrite NEGATIVE Urine Bilirubin NEGATIVE Urine Urobilinogen 0.2 (NORMAL) Ur Leukocyte Esterase SMALL H Urine RBC 0-5 Urine WBC 6-10 H Ur Squamous Epith Cells RARE Squamous Urine Bacteria Rare Ur Microscopic Review INDICATED Urine Culture Comments INDICATED PD MEDICAL DECISION MAKING - ED course Complexity details: reviewed old records, reviewed results, re-evaluated patient, considered differential ED course: minimal leukocytosis. She is afebrile. Elevated BUN/creatinine that are not significantly off from her baseline (compared to previous results). She is given total of 1 liter NS for rehydration. No indication for further ED testing nor admission to inpatient setting. Results reviewed with patient and she is requesting d/c home Departure - Departure Disposition: Home, Self Care Clinical Impression: Weakness Condition: Good Instructions: ED Weakness O
[2021-03-05 02:50] LABS: BASOPHILS % (AUTO) 0.4 %; EOSINOPHILS # (AUTO) 0.2 10^3/uL (0.0-0.7); HCT - HEMATOCRIT 34.7 % (37.0-47.0); HGB - HEMOGLOBIN 10.9 g/dL (12.0-16.0); LYMPHOCYTES % (AUTO) 9.1 %; MEAN CORPUSCULAR HEMOGLOBIN 29.1 pg (27.0-31.0); MEAN CORPUSCULAR HGB CONC 31.4 g/dL (32.0-36.0); MEAN CORPUSCULAR VOLUME 92.5 fL (81.0-99.0); MEAN PLATELET VOLUME 10.1 fL (7.9-10.8); MONOCYTES # (AUTO) 0.8 10^3/uL (0.0-1.0); MONOCYTES % (AUTO) 7.4 %; NEUTROPHILS # (AUTO) 9.1 10^3/uL (1.5-6.6); NEUTROPHILS % (AUTO) 80.7 %; PLT - PLATELET COUNT 353 10^3/uL (130-450); RED BLOOD COUNT 3.75 10^6/uL (4.20-5.40); RED CELL DISTRIBUTION WIDTH 14.6 % (12.0-15.0); WHITE BLOOD COUNT 11.3 x10^3/uL (4.8-10.8)
[2021-03-05 02:59] LABS: BILIRUBIN,URINE NEGATIVE (NEGATIVE); GLUCOSE, URINE (UA) NEGATIVE (NEGATIVE); KETONES,URINE (UA) NEGATIVE (NEGATIVE); LEUKOCYTE ESTERASE, URINE SMALL (NEGATIVE); NITRITE,URINE NEGATIVE (NEGATIVE); OCCULT BLOOD,URINE TRACE-INTA (NEGATIVE); PROTEIN,URINE NEGATIVE (NEGATIVE); UROBILINOGEN,URINE 0.2 (NORMAL) E.U./dL (NORMAL)
[2021-03-05 03:05] LABS: ALBUMIN 3.2 g/dL (3.2-5.5); ALBUMIN/GLOBULIN RATIO 0.9 (1.0-2.2); ALKALINE PHOSPHATASE 167 IU/L (42-121); ALT ALANINE AMINOTRANSFERASE < 10 IU/L (10-60); AST ASPARTATE AMINOTRANSFERASE 14 IU/L (10-42); BUN - BLOOD UREA NITROGEN 44 mg/dL (6-20); CALCIUM 9.2 mg/dL (8.5-10.3); CARBON DIOXIDE - CO2 20 mmol/L (21-32); CHLORIDE 103 mmol/L (101-111); CREATININE 2.6 mg/dL (0.4-1.0); GFR - MDRD 18 (>89); GLUCOSE 99 mg/dL (70-100); LIPASE 22 U/L (22-51); POTASSIUM 3.8 mmol/L (3.5-5.0); SODIUM 137 mmol/L (135-145); TOTAL PROTEIN 6.6 g/dL (6.7-8.2)
[2021-03-05 03:07] LABS: CLARITY,URINE CLEAR (CLEAR); RBC,URINE 0-5 /HPF (0-5)
[2021-03-05 03:08] LABS: BACTERIA,URINE Rare /HPF (None Seen); SQUAMOUS EPITHELIAL CELL,UR RARE Squamous (<= Few)
[2021-03-05] MEDS ORDERED: SODIUM CHLORIDE 0.9% 500 ML IV STA (04:32)
[2021-03-05 09:43] VITALS: BP 106/49
== END 2021-03-05 08:35 | disposition home or self-care (01) ==
LOC: EDUNIT# → SUPCPDRO 01:27 → ED 01:27
DX: R53.1 Weakness (principal); R79.89 Other specified abnormal findings of blood chemistry; I10 Essential (primary) hypertension; E11.42 Type 2 diabetes mellitus with diabetic polyneuropathy; R05.9 Cough, unspecified; E03.9 Hypothyroidism, unspecified; Z79.899 Other long term (current) drug therapy; Z79.82 Long term (current) use of aspirin; F17.200 Nicotine dependence, unspecified, uncomplicated
CPT/HCPCS: 36415; 80053; 80178; 81001; 81003; 83605; 83690; 84436; 84443; 84480; 84481; 85025; 87077; 87086; 87181; 96360; 99283

== ENCOUNTER 2021-03-05 10:46 | Outpatient (CLI) | payer MEDICARE, MEDICAID ==
--- NOTE | 2021-03-05 11:18 | XRAY Report ---
PROCEDURE: Chest 2 View X-Ray INDICATIONS: COUGH TECHNIQUE: 2 view(s) of the chest. COMPARISON: 12/27/2020 FINDINGS: Surgical changes and devices: Cholecystectomy clips.. Lungs and pleura: No pleural effusions or pneumothorax. Lungs demonstrate slight coarsening of the i nterstitial markings but no focal consolidation. Mediastinum: Mediastinal contours are normal. Heart size is normal. Bones and chest wall: No suspicious bony abnormalities. Soft tissues appear unremarkable. IMPRESSION: 1. Chronic, mild coarsening of interstitial markings. 2. No acute process. Reviewed by: Genevieve Malloy MD on 03/05/2021 11:17 AM PDT Approved by: Genevieve Malloy MD on 03/05/2021 11:17 AM PDT Station ID: [id number]
[2021-03-05 16:02] LABS: T4 (THYROXINE) 4.15 ug/dL (6.09-12.23)
[2021-03-05 16:04] LABS: LITHIUM 1.06 mmol/L
[2021-03-05 16:06] LABS: THYROID STIMULATING HORMONE 2.17 uIU/mL (0.34-5.60)
[2021-03-05 16:46] LABS: FREE T3 2.64 pg/mL (2.5-3.9)
== END 2021-03-05 23:59 | disposition home or self-care (01) ==
LOC: DI.S 10:46
PROVIDERS: ATTEND Physician Assistant Medical
DX: R05.9 Cough, unspecified (principal); Z79.899 Other long term (current) drug therapy; E03.9 Hypothyroidism, unspecified
CPT/HCPCS: 36415; 80178; 84436; 84443; 84480; 84481

== ENCOUNTER 2021-03-21 12:49 | Outpatient (CLI) | payer MEDICARE, MEDICAID ==
[2021-03-21 14:58] LABS: BASOPHILS # (AUTO) 0.1 10^3/uL (0.0-0.1); BASOPHILS % (AUTO) 0.6 %; EOSINOPHILS # (AUTO) 0.4 10^3/uL (0.0-0.7); EOSINOPHILS % (AUTO) 4.6 %; HCT - HEMATOCRIT 33.6 % (37.0-47.0); HGB - HEMOGLOBIN 10.4 g/dL (12.0-16.0); LYMPHOCYTES % (AUTO) 12.7 %; MEAN CORPUSCULAR HEMOGLOBIN 28.1 pg (27.0-31.0); MEAN CORPUSCULAR VOLUME 90.8 fL (81.0-99.0); MONOCYTES # (AUTO) 0.8 10^3/uL (0.0-1.0); MONOCYTES % (AUTO) 9.3 %; NEUTROPHILS # (AUTO) 5.9 10^3/uL (1.5-6.6); NEUTROPHILS % (AUTO) 72.4 %; PLT - PLATELET COUNT 329 10^3/uL (130-450); RED CELL DISTRIBUTION WIDTH 15.6 % (12.0-15.0); WHITE BLOOD COUNT 8.2 x10^3/uL (4.8-10.8)
[2021-03-21 15:28] LABS: ALBUMIN 3.3 g/dL (3.2-5.5); BILIRUBIN,TOTAL 0.5 mg/dL (0.2-1.0); CALCIUM 9.6 mg/dL (8.5-10.3); CREATININE 2.7 mg/dL (0.4-1.0); POTASSIUM 3.4 mmol/L (3.5-5.0); TOTAL PROTEIN 6.6 g/dL (6.7-8.2)
[2021-03-21 15:38] LABS: THYROID STIMULATING HORMONE 2.92 uIU/mL (0.34-5.60)
[2021-03-21 20:52] LABS: ESTIMATED AVERAGE GLUCOSE 114 mg/dL (70-100); HEMOGLOBIN A1c% 5.6 % (4.27-6.07)
== END 2021-03-21 12:50 | disposition home or self-care (01) ==
LOC: LAB.S 12:49
PROVIDERS: ATTEND Internal Medicine
DX: I10 Essential (primary) hypertension (principal); E78.1 Pure hyperglyceridemia; E03.9 Hypothyroidism, unspecified; E11.9 Type 2 diabetes mellitus without complications
CPT/HCPCS: 36415; 80053; 83036; 83880; 84443; 85025

== ENCOUNTER 2021-03-26 17:25 | Outpatient (CLI) | payer MEDICAID | END 2021-03-26 17:26 | disposition critical access hospital (66) | LOC: EMS 17:25 | DX: R29.898 Other symptoms and signs involving the musculoskeletal system (principal) | CPT/HCPCS: A0425; A0429; A0999 ==

== ENCOUNTER 2021-03-26 17:59 | Inpatient (IN) | payer MEDICARE, MEDICAID ==
[2021-03-26 19:07] LABS: BASOPHILS # (AUTO) 0.1 10^3/uL (0.0-0.1); BASOPHILS % (AUTO) 0.7 %; EOSINOPHILS # (AUTO) 0.6 10^3/uL (0.0-0.7); HCT - HEMATOCRIT 34.6 % (37.0-47.0); HGB - HEMOGLOBIN 10.9 g/dL (12.0-16.0); LYMPHOCYTES % (AUTO) 10.6 %; MEAN CORPUSCULAR HEMOGLOBIN 28.5 pg (27.0-31.0); MEAN CORPUSCULAR HGB CONC 31.5 g/dL (32.0-36.0); MEAN CORPUSCULAR VOLUME 90.3 fL (81.0-99.0); MEAN PLATELET VOLUME 10.3 fL (7.9-10.8); MONOCYTES # (AUTO) 0.9 10^3/uL (0.0-1.0); NEUTROPHILS # (AUTO) 6.7 10^3/uL (1.5-6.6); NEUTROPHILS % (AUTO) 72.2 %; PLT - PLATELET COUNT 325 10^3/uL (130-450); RED BLOOD COUNT 3.83 10^6/uL (4.20-5.40); RED CELL DISTRIBUTION WIDTH 15.9 % (12.0-15.0); WHITE BLOOD COUNT 9.2 x10^3/uL (4.8-10.8)
--- NOTE | 2021-03-26 19:09 | ED Physician Documentation ---
PD HPI FOCAL NEURO - Stated complaint Stated Complaint: BILAT LEG WEAKNESS - Chief complaint Chief Complaint: General - History obtained from History obtained from: Patient - History of Present Illness Timing - onset: How many days ago (3-4) Timing - duration: Days (3-4) Timing - details: Gradual onset, Still present Severity of deficit: Moderate Weakness: Leg, Right, Left. No: Face, Arm Numbness: No: Face, Arm, Leg Associated symptoms: No: Headache, Nausea / vomiting, Syncope, Fall, Head injury, Chest pain Contributing factors: negative: Anticoagulated Baseline status: positive: A&OX3, ambulatory, indep, Walker Similar symptoms before: No diagnosis (had weakness with UTI in December 2020, in hospital.) Recently seen: Not recently seen, Other (got COVID booster shot a week ago.) Review of Systems Unable to obtain: Other (patient somnolent but rousable and answers questions) Constitutional: denies: Fever, Chills Nose: denies: Congestion Throat: denies: Sore throat Cardiac: denies: Chest pain / pressure GI: reports: Nausea. denies: Abdominal Pain, Vomiting, Diarrhea Musculoskeletal: reports: Extremity swelling (chronic edema both lower legs, no recent change) Neurologic: reports: Generalized weakness (mostly in both legs), Altered mental status (weak and feeling tired/sleepy). denies: Focal weakness, Headache, Head injury Endocrine: denies: Weight loss PD PAST MEDICAL HISTORY - Past Medical History Past Medical History: Yes Cardiovascular: Hypertension, High cholesterol, Deep vein thrombosis, Murmur Respiratory: Asthma, COPD, Shortness of breath Neuro: Peripheral neuropathy Endocrine/Autoimmune: Type 2 diabetes GI: GERD, Chronic constipation, Pancreatitis : Incontinence, Chronic bladder infection HEENT: None Psych: Anxiety, Bipolar disorder, Other Musculoskeletal: Osteoarthritis, Fatigue, Chronic back pain, Other Derm: Other - Past Surgical History Past Surgical History: Yes General: EGD, Colonoscopy Ortho: Knee replacement, 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 HEENT: Tonsil/Adenoidectomy - Present Medications Home Medications: Ambulatory Orders Medication Instructions Recorded Confirmed Levothyroxine Sodium 50 mcg PO QDAC #30 07/17/19 03/05/21 gemfibroziL [Gemfibrozil] 600 mg PO BID #60 07/17/19 03/05/21 risperiDONE [Risperdal] 1 mg PO QPM #30 07/17/19 03/05/21 Cholecalciferol [Vitamin D3] 25 mcg PO DAILY 08/15/20 12/30/20 Gabapentin [Neurontin] 100 mg PO QPM 08/15/20 03/05/21 Aspirin [Aspirin EC] 81 mg PO DAILY 12/27/20 12/31/20 Docusate Sodium 250Mg Capsule 250 - 500 mg PO DAILY 12/29/20 03/05/21 [Colace 250Mg Capsule] Buprenorphine HCl/Naloxone HCl 1 each SL QID 03/05/21 03/05/21 [Buprenorphine-Nalox 8-2Mg Film] Furosemide [Lasix] 20 mg PO QID 03/05/21 03/05/21 LORazepam [Ativan] 0.5 mg PO BID PRN 03/05/21 03/05/21 Omeprazole Magnesium 20 mg PO QID 03/05/21 03/05/21 Propranolol [Inderal] 10 mg PO TID 03/05/21 03/05/21 Venlafaxine HCl 75 mg PO QID 03/05/21 03/05/21 - Allergies Allergies/Adverse Reactions: Allergies Allergy/AdvReac Type Severity Reaction Status Date / Time NSAIDS (Non-Steroidal Allergy Mild Hives Verified 12/30/20 16:59 Anti-Inflamma acetaminophen Allergy Hives Verified 12/30/20 16:59 green pepper Allergy Unknown Verified 03/26/21 18:36 lisinopril Allergy Unknown Verified 12/30/20 16:59 Sulfa (Sulfonamide AdvReac Mild Rash Verified 12/30/20 16:59 Antibiotics) - Living Situation Living Situation: reports: With spouse/s.o. Living Arrangement: reports: At home - Social History Does the pt smoke?: Yes Smoking Status: Current every day smoker Does the pt drink ETOH?: No Does the pt have substance abuse?: No - Family History Family history: reports: Non contributory - Immunizations Immunizations are current?: Yes Immunizations: TDAP >10years/unknown - POLST Patient has POLST: No POLST Status: Full Code PD ED PE NORMAL - Vitals Vital signs reviewed: Yes - General General: No acute distress, Well developed/nourished. No: Alert and oriented X 3 (sleepy but rouses easily and conversant/oriented. ) - HEENT HEENT: Atraumatic, PERRL (pinpoint/constricted but reactive sluggish. ), Ears normal, Pharynx benign. No: Moist mucous membranes - Neck Neck: Supple, no meningeal sign, No adenopathy - Cardiac Cardiac: RRR, No murmur - Respiratory Respiratory: No respiratory distress, Clear bilaterally - Abdomen Abdomen: Normal bowel sounds, Soft, Non tender, Non distended, No organomegaly - Back Back: No CVA TTP, No spinal TTP, Other (no redness/rash/ nor sores in lower back. ) - Derm Derm: Normal color, Warm and dry - Extremities Extremities: No calf tenderness / cord, Other (1+ edema in both ankles and lower legs. 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 ), Normal speech, Other (she has some muscle twitching/spasms intermittently diffuse, not rhythmic. Bilaterl knee replacements to patellar reflexes minimal. Brachial reflexes good in arms. She has some stiffness of movement in legs (held legs up and she was still to bend at knees).). No: No motor deficit (weakness for lifting legs. Able to flex/extend at ankles okay. ) Eye Opening: To Voice Motor: Obeys Commands Verbal: Oriented GCS Score: 14 - Psych Psych: No: Normal mood (flat) Results - Vitals Vitals: Vital Signs - 24 hr 03/26/21 03/26/21 03/26/21 18:02 18:06 22:48 Temperature 36.7 C 36.7 C 36.4 C L Heart Rate 60 60 124 H Respiratory 17 17 16 Rate Blood Pressure 115/56 L 115/56 L 124/92 H O2 Saturation 99 99 95 03/26/21 23:00 Temperature Heart Rate 77 Respiratory 16 Rate Blood Pressure 153/67 H O2 Saturation 97 Oxygen O2 Source [Without Activity] Room air O2 Source Room air - Labs Labs: Laboratory Tests 03/26/21 03/26/21 03/26/21 18:40 18:45 18:45 WBC 9.2 RBC 3.83 L Hgb 10.9 L Hct 34.6 L MCV 90.3 MCH 28.5 MCHC 31.5 L RDW 15.9 H Plt Count 325 MPV 10.3 Neut # (Auto) 6.7 H Lymph # (Auto) 1.0 L [place] # (Auto) 0.9 Eos # (Auto) 0.6 Baso # (Auto) 0.1 Absolute Nucleated RBC 0.00 Nucleated RBC % 0.0 ESR Sodium 132 L Potassium 4.2 Chloride 95 L Carbon Dioxide 21 Anion Gap 16.0 H BUN 42 H Creatinine 2.6 H Estimated GFR (MDRD) 18 L Glucose 76 Calcium 9.4 Magnesium Total Bilirubin 0.6 AST 15 ALT 10 Alkaline Phosphatase 156 H Total Creatine Kinase 152 B-Natriuretic Peptide Total Protein 7.1 Albumin 3.2 Globulin 3.9 Albumin/Globulin Ratio 0.8 L Lipase 35 TSH Urine Color STRAW Urine Clarity HAZY Urine pH 5.5 Ur Specific [place] <=1.005 Urine Protein NEGATIVE Urine Glucose (UA) NEGATIVE Urine Ketones NEGATIVE Urine Occult Blood SMALL H Urine Nitrite NEGATIVE Urine Bilirubin NEGATIVE Urine Urobilinogen 0.2 (NORMAL) Ur Leukocyte Esterase LARGE H Urine RBC 6-10 H Urine WBC >25 H Ur Squamous Epith Cells FEW Squamous Urine Bacteria Few Urine Yeast PRESENT Ur Microscopic Review INDICATED Urine Culture Comments INDICATED Nasal Adenovirus (PCR) Nasal B. parapertussis DNA (PCR) Nasal Coronavir 229E PCR Nasal Coronavir HKU1 PCR Nasal Coronavir NL63 PCR Nasal Coronavir OC43 PCR Nasal Enterovir/Rhinovir PCR Nasal Influenza B PCR Nasal Influenza A PCR Nasal Parainfluen 1 PCR Nasal Parainfluen 2 PCR Nasal Parainfluen 3 PCR Nasal Parainfluen 4 PCR Nasal RSV (PCR) Nasal B.pertussis DNA PCR Nasal C.pneumoniae (PCR) Misael Human Metapneumo PCR Nasal M.pneumoniae (PCR) Nasal SARS-CoV-2 (PCR) Last Dose Date Last Dose Time Urine Opiates Screen Ur Oxycodone Screen Urine Methadone Screen Ur Propoxyphene Screen Ur Barbiturates Screen Ur Tricyclics Screen Ur Phencyclidine Scrn Ur Amphetamine Screen U Methamphetamines Scrn U Benzodiazepines Scrn [place] Urine Cocaine Screen U Cannabinoids Screen Ethyl Alcohol 03/26/21 03/26/21 03/26/21 18:45 18:45 18:45 WBC RBC Hgb Hct MCV MCH MCHC RDW Plt Count MPV Neut # (Auto) Lymph # (Auto) [place] # (Auto) Eos # (Auto) Baso # (Auto) Absolute Nucleated RBC Nucleated RBC % ESR 42 H Sodium Potassium Chloride Carbon Dioxide Anion Gap BUN Creatinine Estimated GFR (MDRD) Glucose Calcium Magnesium 2.5 Total Bilirubin AST ALT Alkaline Phosphatase Total Creatine Kinase B-Natriuretic Peptide 32 Total Protein Albumin Globulin Albumin/Globulin Ratio Lipase TSH Urine Color Urine Clarity Urine pH Ur Specific [place] Urine Protein Urine Glucose (UA) Urine Ketones Urine Occult Blood Urine Nitrite Urine Bilirubin Urine Urobilinogen Ur Leukocyte Esterase Urine RBC Urine WBC Ur Squamous Epith Cells Urine Bacteria Urine Yeast Ur Microscopic Review Urine Culture Comments Nasal Adenovirus (PCR) Nasal B. parapertussis DNA (PCR) Nasal Coronavir 229E PCR Nasal Coronavir HKU1 PCR Nasal Coronavir NL63 PCR Nasal Coronavir OC43 PCR Nasal Enterovir/Rhinovir PCR Nasal Influenza B PCR Nasal Influenza A PCR Nasal Parainfluen 1 PCR Nasal Parainfluen 2 PCR Nasal Parainfluen 3 PCR Nasal Parainfluen 4 PCR Nasal RSV (PCR) Nasal B.pertussis DNA PCR Nasal C.pneumoniae (PCR) Misael Human Metapneumo PCR Nasal M.pneumoniae (PCR) Nasal SARS-CoV-2 (PCR) Last Dose Date Last Dose Time Urine Opiates Screen Ur Oxycodone Screen Urine Methadone Screen Ur Propoxyphene Screen Ur Barbiturates Screen Ur Tricyclics Screen Ur Phencyclidine Scrn Ur Amphetamine Screen U Methamphetamines Scrn U Benzodiazepines Scrn [place] Urine Cocaine Screen U Cannabinoids Screen Ethyl Alcohol < 5.0 03/26/21 03/26/21 03/26/21 18:45 18:45 21:30 WBC RBC Hgb Hct MCV MCH MCHC RDW Plt Count MPV Neut # (Auto) Lymph # (Auto) [place] # (Auto) Eos # (Auto) Baso # (Auto) Absolute Nucleated RBC Nucleated RBC % ESR Sodium Potassium Chloride Carbon Dioxide Anion Gap BUN Creatinine Estimated GFR (MDRD) Glucose Calcium Magnesium Total Bilirubin AST ALT Alkaline Phosphatase Total Creatine Kinase B-Natriuretic Peptide Total Protein Albumin Globulin Albumin/Globulin Ratio Lipase TSH 3.22 Urine Color Urine Clarity Urine pH Ur Specific [place] Urine Protein Urine Glucose (UA) Urine Ketones Urine Occult Blood Urine Nitrite Urine Bilirubin Urine Urobilinogen Ur Leukocyte Esterase Urine RBC Urine WBC Ur Squamous Epith Cells Urine Bacteria Urine Yeast Ur Microscopic Review Urine Culture Comments Nasal Adenovirus (PCR) Nasal B. parapertussis DNA (PCR) Nasal Coronavir 229E PCR Nasal Coronavir HKU1 PCR Nasal Coronavir NL63 PCR Nasal Coronavir OC43 PCR Nasal Enterovir/Rhinovir PCR Nasal Influenza B PCR Nasal Influenza A PCR Nasal Parainfluen 1 PCR Nasal Parainfluen 2 PCR Nasal Parainfluen 3 PCR Nasal Parainfluen 4 PCR Nasal RSV (PCR) Nasal B.pertussis DNA PCR Nasal C.pneumoniae (PCR) Misael Human Metapneumo PCR Nasal M.pneumoniae (PCR) Nasal SARS-CoV-2 (PCR) Last Dose Date Not Reportable Last Dose Time Not Reportable Urine Opiates Screen NEGATIVE Ur Oxycodone Screen NEGATIVE Urine Methadone Screen NEGATIVE Ur Propoxyphene Screen NEGATIVE Ur Barbiturates Screen NEGATIVE Ur Tricyclics Screen NEGATIVE Ur Phencyclidine Scrn NEGATIVE Ur Amphetamine Screen NEGATIVE U Methamphetamines Scrn NEGATIVE U Benzodiazepines Scrn NEGATIVE [place] 1.37 Urine Cocaine Screen NEGATIVE U Cannabinoids Screen NEGATIVE Ethyl Alcohol 03/26/21 22:40 WBC RBC Hgb Hct MCV MCH MCHC RDW Plt Count MPV Neut # (Auto) Lymph # (Auto) [place] # (Auto) Eos # (Auto) Baso # (Auto) Absolute Nucleated RBC Nucleated RBC % ESR Sodium Potassium Chloride Carbon Dioxide Anion Gap BUN Creatinine Estimated GFR (MDRD) Glucose Calcium Magnesium Total Bilirubin AST ALT Alkaline Phosphatase Total Creatine Kinase B-Natriuretic Peptide Total Protein Albumin Globulin Albumin/Globulin Ratio Lipase TSH Urine Color Urine Clarity Urine pH Ur Specific [place] Urine Protein Urine Glucose (UA) Urine Ketones Urine Occult Blood Urine Nitrite Urine Bilirubin Urine Urobilinogen Ur Leukocyte Esterase Urine RBC Urine WBC Ur Squamous Epith Cells Urine Bacteria Urine Yeast Ur Microscopic Review Urine Culture Comments Nasal Adenovirus (PCR) NOT DETECTED Nasal B. parapertussis DNA (PCR) NOT DETECTED Nasal Coronavir 229E PCR NOT DETECTED Nasal Coronavir HKU1 PCR NOT DETECTED Nasal Coronavir NL63 PCR NOT DETECTED Nasal Coronavir OC43 PCR NOT DETECTED Nasal Enterovir/Rhinovir PCR NOT DETECTED Nasal Influenza B PCR NOT DETECTED Nasal Influenza A PCR NOT DETECTED Nasal Parainfluen 1 PCR NOT DETECTED Nasal Parainfluen 2 PCR NOT DETECTED Nasal Parainfluen 3 PCR NOT DETECTED Nasal Parainfluen 4 PCR NOT DETECTED Nasal RSV (PCR) NOT DETECTED Nasal B.pertussis DNA PCR NOT DETECTED Nasal C.pneumoniae (PCR) NOT DETECTED Misael Human Metapneumo PCR NOT DETECTED Nasal M.pneumoniae (PCR) NOT DETECTED Nasal SARS-CoV-2 (PCR) NOT DETECTED Last Dose Date Last Dose Time Urine Opiates Screen Ur Oxycodone Screen Urine Methadone Screen Ur Propoxyphene Screen Ur Barbiturates Screen Ur Tricyclics Screen Ur Phencyclidine Scrn Ur Amphetamine Screen U Methamphetamines Scrn U Benzodiazepines Scrn [place] Urine Cocaine Screen U Cannabinoids Screen Ethyl Alcohol - Rads (name of study) chest xray Radiology: Prelim report reviewed (no infiltrates nor acute process), See rad report lumbar CT Radiology: Prelim report reviewed (arthritic, no acute process), See rad report PD MEDICAL DECISION MAKING - ED course Complexity details: considered differential (General weakness but more so in the legs. It is bilateral and slowly increasing so does not sound strokelike. She had a Covid vaccine a week ago so consider reaction related to that. Can check for CK of myositis or such as she is on a statin. She is sleepy here and likely from extra meds.), d/w patient ED course: She may be having reaction to her Covid vaccine from last week. Consideration for myositis or muscle weakness related to statins. She is sleepy and constricted pupils so consideration of extra medications. She has some level of somnolence and also twitching of her muscles diffusely which could be from chronic lithium toxicity (symptoms differ from acute toxicity). Multiple considerations. She remains somnolent here and perhaps more so but still with adequate respirations. I talked with the hospitalist to have the patient further evaluated in the hospital for the above considerations. Departure - Departure Disposition: ED Place in Observation Clinical Impression: Inability to walk, Elevated lithium level Leg weakness Qualifiers: Laterality: bilateral Qualified Code(s): R29.898 - Other symptoms and signs involving the musculoskeletal system Altered mental status Qualifiers: Altered mental status type: somnolence Qualified Code(s): R40.0 - Somnolence UTI (urinary tract infection) Qualifiers: Urinary tract infection type: catheter-associated UTI Indwelling urinary catheter type: indwelling urethral catheter Encounter type: initial encounter Qualified Code(s): T83.511A - Infection and inflammatory reaction due to indwelling urethral catheter, initial encounter Condition: Stable Record reviewed to determine appropriate education?: Yes
[2021-03-26 19:19] LABS: ALBUMIN 3.2 g/dL (3.2-5.5); ALBUMIN/GLOBULIN RATIO 0.8 (1.0-2.2); BILIRUBIN,TOTAL 0.6 mg/dL (0.2-1.0); CALCIUM 9.4 mg/dL (8.5-10.3); CREATININE 2.6 mg/dL (0.4-1.0); POTASSIUM 4.2 mmol/L (3.5-5.0); TOTAL PROTEIN 7.1 g/dL (6.7-8.2)
[2021-03-26 19:23] LABS: BILIRUBIN,URINE NEGATIVE (NEGATIVE); GLUCOSE, URINE (UA) NEGATIVE (NEGATIVE); KETONES,URINE (UA) NEGATIVE (NEGATIVE); LEUKOCYTE ESTERASE, URINE LARGE (NEGATIVE); NITRITE,URINE NEGATIVE (NEGATIVE); OCCULT BLOOD,URINE SMALL (NEGATIVE); PH,URINE 5.5 PH (5.0-7.5); PROTEIN,URINE NEGATIVE (NEGATIVE); UROBILINOGEN,URINE 0.2 (NORMAL) E.U./dL (NORMAL)
[2021-03-26 19:27] LABS: CLARITY,URINE HAZY (CLEAR)
[2021-03-26 19:36] LABS: ETOH - ETHANOL < 5.0 mg/dL; MAGNESIUM 2.5 mg/dL (1.7-2.8)
[2021-03-26 19:39] LABS: BACTERIA,URINE Few /HPF (None Seen); SQUAMOUS EPITHELIAL CELL,UR FEW Squamous (<= Few); WBC,URINE >25 /HPF (0-5); YEAST,URINE PRESENT
--- NOTE | 2021-03-26 20:11 | XRAY Report ---
PROCEDURE: Chest 1 View X-Ray INDICATIONS: chest pain TECHNIQUE: One view of the chest was acquired. COMPARISON: March 05, 2021 FINDINGS: SUPPORT DEVICES: None. LUNGS/PLEURA: Right basilar density, likely reflecting atelectasis. No focal consolidation, pleural e ffusion or space-occupying pneumothorax. MEDIASTINUM: The cardiomediastinal silhouette is within normal limits. BONES/SOFT TISSUES: No acute abnormality. IMPRESSION: 1.Right basilar atelectasis. Reviewed by: Ced Herrera MD on 03/26/2021 8:10 PM PST Approved by: Ced Herrera MD on 03/26/2021 8:10 PM [facility] Station ID: [id number]
--- NOTE | 2021-03-26 20:20 | CT Report ---
PROCEDURE: LUMBAR SPINE WO INDICATIONS: legs feel weak; possible fall TECHNIQUE: Noncontrast 3 mm thick sections acquired from the T12 level to the sacrum. Sagittal and coronal refo rmats were constructed. For radiation dose reduction, the following was used: automated exposure co ntrol, adjustment of mA and/or kV according to patient size. COMPARISON: Reference is made to the CT abdomen and pelvis dated August 28, 2020. FINDINGS: Image quality: Excellent. Bones: There is normal bony alignment. No acute vertebral body compression fractures. No suspiciou s osseous lesions. Central spinal caliber is of normal overall caliber. No pars defects. T12-L1: Minimal disc height loss and vacuum phenomena. L1-L2: No significant abnormality. L2-L3: No significant abnormality. L3-L4: Mild to moderate disc height loss with degenerative changes of the opposing endplates. Minim al grade 1 anterolisthesis with uncovering of the disc/posterior disc bulge. L4-L5: Discectomy with posterior elements fixation. L5-S1: No significant abnormality. Soft tissues: No retroperitoneal masses or hematomas. Visualized aorta is normal in caliber. Redemonstrated right renal hypo and hyperattenuating lesions, which may reflect cysts. Normal appendix. Colonic diverticulosis. Marked irregularity of the urinary bladder, which contains a partially imaged Jose catheter. IMPRESSION: 1. No acute osseous abnormality. 2. L3-4 disc degeneration as detailed above. Reviewed by: Ced Herrera MD on 03/26/2021 8:19 PM PST Approved by: Ced Herrera MD on 03/26/2021 8:19 PM PST Station ID: [id number]
[2021-03-26 20:49] LABS: LITHIUM 1.37 mmol/L
[2021-03-26] MEDS ORDERED: SODIUM CHLORIDE 0.9% 1,000 ML IV STA (21:22)
[2021-03-26 21:52] LABS: MUDS CUTOFF CONCENTRATIONS CUTOFF CONC BELOW:
[2021-03-26] MEDS ORDERED: cefTRIAXone 1 GM VIAL IVP STA (21:52)
[2021-03-26 22:13] LABS: AMPHETAMINE SCREEN,URINE NEGATIVE (NEGATIVE); BARBITURATE SCREEN,UR NEGATIVE (NEGATIVE); BENZODIAZEPINES SCREEN, URINE NEGATIVE (NEGATIVE); COCAINE SCREEN URINE NEGATIVE (NEGATIVE); METHADONE SCREEN, URINE NEGATIVE (NEGATIVE); METHAMPHETAMINES SCREEN, URINE NEGATIVE (NEGATIVE); OPIATE SCREEN, URINE NEGATIVE (NEGATIVE); OXYCODONE SCREEN, URINE NEGATIVE (NEGATIVE); PROPOXYPHENE SCREEN, URINE NEGATIVE (NEGATIVE); THC CANNABINOID SCREEN, URINE NEGATIVE (NEGATIVE); TRICYCLIC ANTIDEPRESSANT,URINE NEGATIVE (NEGATIVE)
[2021-03-26] MEDS ORDERED: SODIUM CHLORIDE FLUSH 0.9% 10 ML SYRINGE IVP PRN (23:03)
[2021-03-26] MEDS ORDERED: ONDANSETRON ODT 4 MG TABLET TL PRN (23:03)
[2021-03-26] MEDS ORDERED: ONDANSETRON 4 MG/2 ML VIAL IVP PRN (23:03)
--- NOTE | 2021-03-26 23:13 | HISTORY & PHYSICAL EXAMINATION ---
Chief Complaint - Chief Complaint Chief Complaint: Bilateral leg weakness History of Present Illness - Admitted From Admitted From:: [facility] ED - History Obtained From Exam Limitations: Patient unable to follow command or confirm/deny exam findings. - History of Present Illness HPI Comment/Other: Patient presents with bilateral leg weakness that has been going on the last few days, so much that it resorted to her "crawling on the ground". She has been seen in the ED in the past for similar episodes but this one is by far the worst. She was last seen in the [facility] ED on 03/06/2021 for bilateral leg weakness and no cause was determined and she was discharged home. She has a history of opioid and benzodiazepine misuse and seeks care at a suboxone clinic. She also has a history of hoarding medications and her BERTO report did not list [place] as a prescription yet she has an elevated [place] level today in the ED. She received her COVID booster and flu shot a few days ago. She has extensive assistance at home for her activities of daily living and meals. History - Past Medical History Cardiovascular: reports: Hypertension, High cholesterol, Deep vein thrombosis, Murmur Respiratory: reports: Asthma, COPD, Shortness of breath Neuro: reports: Peripheral neuropathy Endocrine/Autoimmune: reports: Type 2 diabetes GI: reports: GERD, Chronic constipation, Pancreatitis : reports: Incontinence, Chronic bladder infection HEENT: reports: None Psych: reports: Anxiety, Bipolar disorder, Other Musculoskeletal: reports: Osteoarthritis, Fatigue, Chronic back pain, Other Derm: reports: Other MRSA Hx?: No - Past Surgical History General: reports: EGD, Colonoscopy Ortho: reports: Knee replacement, 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 Living Situation: With spouse/s.o. Social History Notes: She smoked 1ppd. Uses CBD cannabis oil sublingual. She does not drink alcohol - Substance History Use: Uses substance without health or social issues: Tobacco (hx) - POLST Patient has POLST: No POLST Status: Full Code Meds/Allgy - Home Medications Home Medications: Ambulatory Orders Medication Instructions Recorded Confirmed Levothyroxine Sodium 50 mcg PO QDAC #30 07/17/19 03/05/21 gemfibroziL [Gemfibrozil] 600 mg PO BID #60 07/17/19 03/05/21 risperiDONE [Risperdal] 1 mg PO QPM #30 07/17/19 03/05/21 Cholecalciferol [Vitamin D3] 25 mcg PO DAILY 08/15/20 12/30/20 Gabapentin [Neurontin] 100 mg PO QPM 08/15/20 03/05/21 Aspirin [Aspirin EC] 81 mg PO DAILY 12/27/20 12/31/20 Docusate Sodium 250Mg Capsule 250 - 500 mg PO DAILY 12/29/20 03/05/21 [Colace 250Mg Capsule] Buprenorphine HCl/Naloxone HCl 1 each SL QID 03/05/21 03/05/21 [Buprenorphine-Nalox 8-2Mg Film] Furosemide [Lasix] 20 mg PO QID 03/05/21 03/05/21 LORazepam [Ativan] 0.5 mg PO BID PRN 03/05/21 03/05/21 Omeprazole Magnesium 20 mg PO QID 03/05/21 03/05/21 Propranolol [Inderal] 10 mg PO TID 03/05/21 03/05/21 Venlafaxine HCl 75 mg PO QID 03/05/21 03/05/21 - Allergies Allergies/Adverse Reactions: Allergies Allergy/AdvReac Type Severity Reaction Status Date / Time NSAIDS (Non-Steroidal Allergy Mild Hives Verified 12/30/20 16:59 Anti-Inflamma acetaminophen Allergy Hives Verified 12/30/20 16:59 green pepper Allergy Unknown Verified 03/26/21 18:36 lisinopril Allergy Unknown Verified 12/30/20 16:59 Sulfa (Sulfonamide AdvReac Mild Rash Verified 12/30/20 16:59 Antibiotics) Review of Systems - Other Findings Other Findings: Unable to obtain ROS due to patient's twitching and altered mental status Prior Level of Functionality: Walks with 4-wheel walker but has has extensive help with activities of daily living. Exam - Vital Signs Reviewed Vital Signs: Yes Vital Signs: Vital Signs x48h Temp Pulse Resp BP Pulse Ox 03/26/21 22:48 36.4 C L 124 H 16 124/92 H 95 03/26/21 18:06 36.7 C 60 17 115/56 L 99 03/26/21 18:02 36.7 C 60 17 115/56 L 99 - Physical Exam General Appearance: positive: No acute distress, Lethargic, Other (Difficult to arouse) Eyes Bilateral: positive: Conjunctivae nml, No scleral icterus, Other (miosis bilaterally) ENT: positive: No signs of dehydration, Other (Dried vomit on left side of face, occassional facial grimaces) Neck: positive: Nml inspection, No JVD Respiratory: positive: No respiratory distress, Wheezes Cardiovascular: positive: Regular rate & rhythm, No gallop Peripheral Pulses: positive: 2+ Abdomen: positive: Non-tender, No organomegaly, No distention Skin: positive: Dry, Other (Diffuse ecchymosis on upper extremities and dry, thin skin) Extremities: positive: Non-tender, No pedal edema Neurologic/Psychiatric: positive: Disoriented to place, Disoriented to time, Weakness, Other (Whole body twitching) Conclusion/Plan - Lab Results Lab results reviewed: Yes Fish Bones: 03/26/21 18:45 03/26/21 18:45
[2021-03-26] MEDS ORDERED: LACTATED RINGERS 1,000 ML IV SCH (23:45)
[2021-03-26 23:46] LABS: B. PARAPERTUSSIS- RESP PCR PAN NOT DETECTED; B. PERTUSSIS- RESP PCR PANEL NOT DETECTED; C. PNEUMONIAE- RESP PCR PANEL NOT DETECTED; CORONAVIRUS 229E-RESP PCR NOT DETECTED; CORONAVIRUS HKU1-RESP PCR NOT DETECTED; CORONAVIRUS NL63-RESP PCR NOT DETECTED; CORONAVIRUS OC43-RESP PCR NOT DETECTED; HUMAN METAPNEUMOVIRUS NOT DETECTED; INFLUENZA A- RESP PCR PANEL NOT DETECTED; INFLUENZA B - RESP PCR PANEL NOT DETECTED; M. PNEUMONIAE- RESP PCR PANEL NOT DETECTED; PARAINFLUENZA VIRUS 1 NOT DETECTED; PARAINFLUENZA VIRUS 2 NOT DETECTED; PARAINFLUENZA VIRUS 3 NOT DETECTED; PARAINFLUENZA VIRUS 4 NOT DETECTED; RHINOVIRUS/ENTEROVIRUS NOT DETECTED; RSV- RESP PCR PANEL NOT DETECTED; SARS-CoV-2 -RESP PCR PANEL NOT DETECTED
[2021-03-27] MEDS ORDERED: LACTATED RINGERS 1,000 ML IV STA (00:54)
[2021-03-27] MEDS ORDERED: LACTATED RINGERS 1,000 ML IV ONE ×2 (02:00)
[2021-03-27 05:33] LABS: BASOPHILS # (AUTO) 0.1 10^3/uL (0.0-0.1); BASOPHILS % (AUTO) 0.9 %; EOSINOPHILS # (AUTO) 0.5 10^3/uL (0.0-0.7); EOSINOPHILS % (AUTO) 4.8 %; HCT - HEMATOCRIT 32.5 % (37.0-47.0); HGB - HEMOGLOBIN 10.5 g/dL (12.0-16.0); LYMPHOCYTES # (AUTO) 0.7 10^3/uL (1.5-3.5); LYMPHOCYTES % (AUTO) 7.8 %; MEAN CORPUSCULAR HEMOGLOBIN 29.2 pg (27.0-31.0); MEAN CORPUSCULAR HGB CONC 32.3 g/dL (32.0-36.0); MEAN CORPUSCULAR VOLUME 90.5 fL (81.0-99.0); MEAN PLATELET VOLUME 10.4 fL (7.9-10.8); MONOCYTES # (AUTO) 0.6 10^3/uL (0.0-1.0); MONOCYTES % (AUTO) 6.8 %; NEUTROPHILS # (AUTO) 7.4 10^3/uL (1.5-6.6); NEUTROPHILS % (AUTO) 79.4 %; PLT - PLATELET COUNT 329 10^3/uL (130-450); RED BLOOD COUNT 3.59 10^6/uL (4.20-5.40); WHITE BLOOD COUNT 9.3 x10^3/uL (4.8-10.8)
[2021-03-27 06:09] LABS: CALCIUM 9.1 mg/dL (8.5-10.3); CREATININE 2.5 mg/dL (0.4-1.0); POTASSIUM 4.1 mmol/L (3.5-5.0)
[2021-03-27] MEDS ORDERED: DEXTROSE 50% ABBOJECT 25 GM/50 ML SYRINGE IVP STA (06:39)
[2021-03-27] MEDS ORDERED: DEXTROSE 5%-0.9% NACL 1,000 ML IV STA (06:41)
[2021-03-27] MEDS ORDERED: DEXTROSE 5%-0.9% NACL 1,000 ML IV SCH ×3 (09:00→18:24)
--- NOTE | 2021-03-27 09:36 | XRAY Report ---
PROCEDURE: Chest 1 View X-Ray INDICATIONS: Short of breath TECHNIQUE: One view of the chest was acquired. COMPARISON: 03/26/2021, 03/05/2021 FINDINGS: Surgical changes and devices: None. Lungs and pleura: No pleural effusions or pneumothorax. Lungs are clear. Mediastinum: Mediastinal contours appear normal. Heart size is normal. Bones and chest wall: No suspicious bony lesions. Age-appropriate degenerative changes are seen. O verlying soft tissues appear unremarkable. IMPRESSION: No acute cardiopulmonary process is seen. Reviewed by: Ben Mann MD on 03/27/2021 8:35 AM [facility] Approved by: Ben Mann MD on 03/27/2021 8:35 AM [facility] Station ID: [id number]
--- NOTE | 2021-03-27 10:53 | PHARMACY PROGRESS NOTE ---
- Best Possible Medication History Admit Date and Time: 03/26/21 5267 Processed by: Pharmacy Medication History completed: Yes Patient Interview: Pt unable to participate Secondary Source(s): Physician records, Pharmacy records, Insurance records, Previous admit records As the person ultimately responsible for medication therapy, providers are able to order a medication from an existing home medication list in [facility] via the "Reconcile Routine" prior to Confirmation of that medication by sales support assistant. Such practice is discouraged except when the physician, in their clinical judgment, deems that a medical need exists for a medication without regard to previous use.
[2021-03-27] MEDS: ENOXAPARIN 30 MG/0.3 ML SYRINGE SUBQ SCH (11:13)
[2021-03-27] MEDS: cefTRIAXone 1 GM in SODIUM CHLORIDE 0.9% MINIBAG 100 ML IV SCH (11:13)
[2021-03-27] MEDS: SODIUM CHLORIDE FLUSH 0.9% 10 ML SYRINGE IVP SCH ×3 (11:14→23:03)
--- NOTE | 2021-03-27 11:46 | PROVIDER PROGRESS NOTE ---
Assessment/Plan - Problem List (1) Altered mental status Qualifiers: Altered mental status type: somnolence Qualified Code(s): R40.0 - Somnolence Assessment/Plan: 03/27, pt is alert but still present confused. we will hold her home suboxone, Ativan, and Venlafaxine on today, IVF and resume her diet to help her dehydration and help her kidney process of lithium toxicity, treat her underline infection left foot cellulitis and possible UTI with antibiotics Rocephin and order blood culture, UA culture is pending. continue neuro check. 2. Bilateral leg weakness 03/27 pt has poor appetite and hypoglycemia, acute cellulitis and UTI infection, dehydration with elevated BUN and creatinine which also could contribute to b ilateral leg weakness. order PT/OT evaluation and treatment, and we will continue closely check neuromuscular status and Gullian-Beverly syndrome, pt had Covid 19 booster and flu vaccine last week. Spinal cord abscess was ruled out by lumbar CT in the ED. 3. [place] toxicity 03/27 Continue IV fluids to help process of her lithium toxicity, but also precaution of fluid overloaded at pt has hx of CKD. her lithium level in the ED was 1.37. Given this and the whole body twitching, it is likely she has mild lithium toxicity. 4. Chronic Kidney Disease 03/27 Patient has a history of chronic kidney disease. Continue gentle IV fluids, avoid nephrotoxic agent, lab monitor 5. UTI due to chronic indwelling catheter 03/27 continue Rocephin. Rocephin started on ER and at admission of inpt. UA culture is pending. pt has hx of chronic indwelling urinary catheter, and frequently UTI. pt present AMS, UA show large esterase and pyuria. 6.Cellulitis 03/27 pt present cellulitis with erythema, warm and swelling at left foot. pt has no fever, WBC at normal arrange, Lactic acid is 1.7, continue Rocephin now and blood culture is ordered and pending 7. 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 pt has hx of DM2 but she has no home meds for diabetes now. 8. dehydration 03/27 pt has elevated BUN and creatinine, start with IVF at ER with 2 liters, will continue gentle IVF. CXR reveals no acute process, pt has 95-99% O2 sats without respiratory distress now. 9. generalized weakness pt present generalized weakness, PT/OT evaluation and treatment for pt, treated underline medical problems as well. - Current Meds Current Meds: Current Medications Generic Name Dose Route Start Last Admin Trade Name Freq PRN Reason Stop Dose Admin Enoxaparin Sodium 30 mg 03/27/21 09:00 03/27/21 11:13 Enoxaparin 30 Mg/0.3 Ml Syringe SUBQ 30 mg DAILY JARETT Administration Dextrose/Sodium Chloride 1,000 mls @ 75 mls/hr 03/27/21 09:00 03/27/21 11:13 D5ns IV 03/28/21 11:39 75 mls/hr .[id number] JARETT Administration Ceftriaxone Sodium 1 gm/ 100 mls @ 200 mls/hr 03/27/21 10:00 03/27/21 11:13 Sodium Chloride IV 200 mls/hr DAILY JARETT Administration Sodium Chloride 10 ml 03/27/21 01:00 03/27/21 11:14 Sodium Chloride Flush 0.9% 10 Ml Syringe IVP Not Given 0100,0900,1700 JARETT - Lab Result Fish Bone Diagrams: 03/27/21 05:27 03/27/21 09:05 - Additional Planning My Orders: My Active Orders 03/27/21 08:28 Blood Glucose Checks - Eating [RC] 0800,1200,1700,2100 03/27/21 09:00 Dextrose 5%-0.9% NaCl [D5ns] 1,000 ml IV 75 mls/hr 03/27/21 09:34 Blood Culture [CULTURE, BLOOD #1] [] Urgent 03/27/21 09:45 Blood Culture [CULTURE, BLOOD #2] [] Urgent 03/27/21 10:00 cefTRIAXone [Rocephin] 1 gm Sodium Chloride 0.9% Minibag [Normal Saline 0.9% Minibag] 100 ml IV DAILY 03/27/21 10:43 Admit [Admit \ Transfer \ Status] [RC] .ONCE 03/27/21 10:44 Neuro Check [RC] QSHIFT 03/28/21 05:00 BMP - BASIC METABOLIC PANEL [CHEM] DAILYLAB CBC - COMP BLD CT W/AUTO DIFF [HEME] DAILYLAB 03/29/21 05:00 BMP - BASIC METABOLIC PANEL [CHEM] DAILYLAB CBC - COMP BLD CT W/AUTO DIFF [HEME] DAILYLAB 03/30/21 05:00 BMP - BASIC METABOLIC PANEL [CHEM] DAILYLAB CBC - COMP BLD CT W/AUTO DIFF [HEME] DAILYLAB 03/31/21 05:00 BMP - BASIC METABOLIC PANEL [CHEM] DAILYLAB CBC - COMP BLD CT W/AUTO DIFF [HEME] DAILYLAB 04/01/21 05:00 BMP - BASIC METABOLIC PANEL [CHEM] DAILYLAB CBC - COMP BLD CT W/AUTO DIFF [HEME] DAILYLAB Subjective - Subjective Nursing Reports: Confused Objective Vital Signs: Vital Signs - 24 hr 03/26/21 03/26/21 03/26/21 18:02 18:06 22:48 Temperature 36.7 C 36.7 C 36.4 C L Heart Rate 60 60 124 H Heart Rate [ Brachial] Respiratory 17 17 16 Rate Blood Pressure 115/56 L 115/56 L 124/92 H Blood Pressure [Right Brachial artery] O2 Saturation 99 99 95 03/26/21 03/27/21 03/27/21 23:00 01:00 04:00 Temperature Heart Rate 77 61 62 Heart Rate [ Brachial] Respiratory 16 16 18 Rate Blood Pressure 153/67 H 118/89 H 95/48 L Blood Pressure [Right Brachial artery] O2 Saturation 97 100 98 03/27/21 03/27/21 06:22 09:43 Temperature 36.7 C Heart Rate 64 Heart Rate [ 70 Brachial] Respiratory 20 18 Rate Blood Pressure 151/67 H Blood Pressure 109/56 L [Right Brachial artery] O2 Saturation 99 99 Oxygen O2 Source [Without Activity] Room air O2 Source Room air I&O (Last 24 Hrs): Intake and Output Totals x24h 03/25/21 03/26/21 03/27/21 23:59 23:59 23:59 Intake Total 2000 Output Total 1200 1200 Balance -1200 800 General: Alert, No acute distress HEENT: Atraumatic Neck: Supple Lymphatic: no adenopathy Neuro: Alert, Non Focal Cardiovascular: Regular rate, Normal S1, Normal S2 Respiratory: Chest non-tender, No respiratory distress Abdomen: Normal bowel sounds, Soft Extremities: Normal pulses - Results Results: Laboratory Results WBC 9.3 x10^3/uL (4.8-10.8) 03/27/21 05:27 RBC 3.59 10^6/uL (4.20-5.40) L 03/27/21 05:27 Hgb 10.5 g/dL (12.0-16.0) L 03/27/21 05:27 Hct 32.5 % (37.0-47.0) L 03/27/21 05:27 MCV 90.5 fL (81.0-99.0) 03/27/21 05:27 MCH 29.2 pg (27.0-31.0) 03/27/21 05:27 MCHC 32.3 g/dL (32.0-36.0) 03/27/21 05:27 RDW 16.0 % (12.0-15.0) H 03/27/21 05:27 Plt Count 329 10^3/uL (130-450) 03/27/21 05:27 MPV 10.4 fL (7.9-10.8) 03/27/21 05:27 Neut # (Auto) 7.4 10^3/uL (1.5-6.6) H 03/27/21 05:27 Lymph # (Auto) 0.7 10^3/uL (1.5-3.5) L 03/27/21 05:27 [place] # (Auto) 0.6 10^3/uL (0.0-1.0) 03/27/21 05:27 Eos # (Auto) 0.5 10^3/uL (0.0-0.7) 03/27/21 05:27 Baso # (Auto) 0.1 10^3/uL (0.0-0.1) 03/27/21 05:27 Absolute Nucleated RBC 0.00 x10^3/uL 03/27/21 05:27 Nucleated RBC % 0.0 /100WBC 03/27/21 05:27 ESR 42 mm/Hr (0-30) H 03/26/21 18:45 Sodium 140 mmol/L (135-145) 03/27/21 05:27 Potassium 4.1 mmol/L (3.5-5.0) 03/27/21 05:27 Chloride 105 mmol/L (101-111) 03/27/21 05:27 Carbon Dioxide 19 mmol/L (21-32) L 03/27/21 05:27 Anion Gap 16.0 (6-13) H 03/27/21 05:27 BUN 41 mg/dL (6-20) H 03/27/21 05:27 Creatinine 2.5 mg/dL (0.4-1.0) H 03/27/21 05:27 Estimated GFR (MDRD) 19 (>89) L 03/27/21 05:27 Glucose 126 mg/dL (70-100) H 03/27/21 09:05 Lactic Acid 1.7 mmol/L (0.5-2.2) 03/27/21 09:05 Calcium 9.1 mg/dL (8.5-10.3) 03/27/21 05:27 Magnesium 2.5 mg/dL (1.7-2.8) 03/26/21 18:45 Total Bilirubin 0.6 mg/dL (0.2-1.0) 03/26/21 18:45 AST 15 IU/L (10-42) 03/26/21 18:45 ALT 10 IU/L (10-60) 03/26/21 18:45 Alkaline Phosphatase 156 IU/L (42-121) H 03/26/21 18:45 Ammonia 34.2 umol/L (7-35) 03/27/21 05:27 Total Creatine Kinase 152 IU/L (22-269) 03/26/21 18:45 B-Natriuretic Peptide 32 pg/mL (5-100) 03/26/21 18:45 Total Protein 7.1 g/dL (6.7-8.2) 03/26/21 18:45 Albumin 3.2 g/dL (3.2-5.5) 03/26/21 18:45 Globulin 3.9 g/dL (2.1-4.2) 03/26/21 18:45 Albumin/Globulin Ratio 0.8 (1.0-2.2) L 03/26/21 18:45 Lipase 35 U/L (22-51) 03/26/21 18:45 TSH 3.22 uIU/mL (0.34-5.60) 03/26/21 18:45 Urine Color STRAW 03/26/21 18:40 Urine Clarity HAZY (CLEAR) 03/26/21 18:40 Urine pH 5.5 PH (5.0-7.5) 03/26/21 18:40 Ur Specific White <=1.005 (1.002-1.030) 03/26/21 18:40 Urine Protein NEGATIVE mg/dL (NEGATIVE) 03/26/21 18:40 Urine Glucose (UA) NEGATIVE mg/dL (NEGATIVE) 03/26/21 18:40 Urine Ketones NEGATIVE mg/dL (NEGATIVE) 03/26/21 18:40 Urine Occult Blood SMALL (NEGATIVE) H 03/26/21 18:40 Urine Nitrite NEGATIVE (NEGATIVE) 03/26/21 18:40 Urine Bilirubin NEGATIVE (NEGATIVE) 03/26/21 18:40 Urine Urobilinogen 0.2 (NORMAL) E.U./dL (NORMAL) 03/26/21 18:40 Ur Leukocyte Esterase LARGE (NEGATIVE) H 03/26/21 18:40 Urine RBC 6-10 /HPF (0-5) H 03/26/21 18:40 Urine WBC >25 /HPF (0-5) H 03/26/21 18:40 Ur Squamous Epith Cells FEW Squamous (<= Few) 03/26/21 18:40 Urine Bacteria Few /HPF (None Seen) 03/26/21 18:40 Urine Yeast PRESENT 03/26/21 18:40 Ur Microscopic Review INDICATED 03/26/21 18:40 Urine Culture Comments INDICATED 03/26/21 18:40 Nasal Adenovirus (PCR) NOT DETECTED 03/26/21 22:40 Nasal B. parapertussis DNA (PCR) NOT DETECTED 03/26/21 22:40 Nasal Coronavir 229E PCR NOT DETECTED 03/26/21 22:40 Nasal Coronavir HKU1 PCR NOT DETECTED 03/26/21 22:40 Nasal Coronavir NL63 PCR NOT DETECTED 03/26/21 22:40 Nasal Coronavir OC43 PCR NOT DETECTED 03/26/21 22:40 Nasal Enterovir/Rhinovir PCR NOT DETECTED 03/26/21 22:40 Nasal Influenza B PCR NOT DETECTED 03/26/21 22:40 Nasal Influenza A PCR NOT DETECTED 03/26/21 22:40 Nasal Parainfluen 1 PCR NOT DETECTED 03/26/21 22:40 Nasal Parainfluen 2 PCR NOT DETECTED 03/26/21 22:40 Nasal Parainfluen 3 PCR NOT DETECTED 03/26/21 22:40 Nasal Parainfluen 4 PCR NOT DETECTED 03/26/21 22:40 Nasal RSV (PCR) NOT DETECTED 03/26/21 22:40 Nasal B.pertussis DNA PCR NOT DETECTED 03/26/21 22:40 Nasal C.pneumoniae (PCR) NOT DETECTED 03/26/21 22:40 Misael Human Metapneumo PCR NOT DETECTED 03/26/21 22:40 Nasal M.pneumoniae (PCR) NOT DETECTED 03/26/21 22:40 Nasal SARS-CoV-2 (PCR) NOT DETECTED 03/26/21 22:40 Last Dose Date Not Reportable 03/26/21 18:45 Last Dose Time Not Reportable 03/26/21 18:45 Urine Opiates Screen NEGATIVE (NEGATIVE) 03/26/21 21:30 Ur Oxycodone Screen NEGATIVE (NEGATIVE) 03/26/21 21:30 Urine Methadone Screen NEGATIVE (NEGATIVE) 03/26/21 21:30 Ur Propoxyphene Screen NEGATIVE (NEGATIVE) 03/26/21 21:30 Ur Barbiturates Screen NEGATIVE (NEGATIVE) 03/26/21 21:30 Ur Tricyclics Screen NEGATIVE (NEGATIVE) 03/26/21 21:30 Ur Phencyclidine Scrn NEGATIVE (NEGATIVE) 03/26/21 21:30 Ur Amphetamine Screen NEGATIVE (NEGATIVE) 03/26/21 21:30 U Methamphetamines Scrn NEGATIVE (NEGATIVE) 03/26/21 21:30 U Benzodiazepines Scrn NEGATIVE (NEGATIVE) 03/26/21 21:30 [place] 1.37 mmol/L 03/26/21 18:45 Urine Cocaine Screen NEGATIVE (NEGATIVE) 03/26/21 21:30 U Cannabinoids Screen NEGATIVE (NEGATIVE) 03/26/21 21:30 Ethyl Alcohol < 5.0 mg/dL 03/26/21 18:45 - Procedures Procedures: Procedures COLONOSCOPY (01/09/13) DRAINAGE OF BLADDER WITH DRAINAGE DEVICE, VIA OPENING (11/25/19) ABX Reporting Has patient been on IV antibiotics over the past 48 hours?: Yes Current Medications - Current Medications Current Medications: Active Medications Aspirin (Aspirin Ec 81 Mg Tablet) 81 mg PO DAILY JARETT Buprenorphine HCl (Buprenorphine/Naloxone 8-2 Mg Tab) 2.5 tab SL DAILY [facility] Enoxaparin Sodium (Enoxaparin 30 Mg/0.3 Ml Syringe) 30 mg SUBQ DAILY JARETT Last Admin: 03/27/21 11:13 Dose: 30 mg Documented by: Gemfibrozil (Gemfibrozil 600 Mg Tablet) 600 mg PO BID [facility] Ceftriaxone Sodium 1 gm/ (Sodium Chloride) 100 mls @ 200 mls/hr IV DAILY [facility] Last Admin: 03/27/21 11:13 Dose: 200 mls/hr Documented by: Dextrose/Sodium Chloride (D5ns) 1,000 mls @ 75 mls/hr IV .[id number] [facility] Stop: 03/28/21 17:04 Ibuprofen (Ibuprofen 400 Mg Tablet) 400 mg PO Q4HR PRN PRN Reason: Pain 1 to 4 Levothyroxine Sodium (Levothyroxine 25 Mcg Tablet) 50 mcg PO QDAC [facility] Ondansetron HCl (Ondansetron Odt 4 Mg Tablet) 4 mg TL Q6HR PRN PRN Reason: Nausea / Vomiting Ondansetron HCl (Ondansetron 4 Mg/2 Ml Vial) 4 mg IVP Q6HR PRN PRN Reason: Nausea / Vomiting Pantoprazole Sodium (Pantoprazole 40 Mg Tablet) 40 mg PO QDAC [facility] Propranolol HCl (Propranolol 10 Mg Tablet) 10 mg PO TID [facility] Risperidone (Risperidone 1 Mg Tablet) 1 mg PO QPM [facility] Saccharomyces Boulardii (Saccharomyces Boulardii 250 Mg Capsule) 250 mg PO BIDWM [facility] Sodium Chloride (Sodium Chloride Flush 0.9% 10 Ml Syringe) 10 ml IVP PRN PRN PRN Reason: NEEDED PER PROVIDER ORDERS Sodium Chloride (Sodium Chloride Flush 0.9% 10 Ml Syringe) 10 ml IVP 0100,0900,1700 [facility] Last Admin: 03/27/21 11:14 Dose: Not Given Documented by: Cholecalciferol [Vitamin D3] 25 mcg PO DAILY 08/15/20 Gabapentin [Neurontin] 100 mg PO QPM 08/15/20 Aspirin [Aspirin EC] 81 mg PO DAILY 12/27/20 Furosemide [Lasix] 20 mg PO DAILY 03/05/21 LORazepam [Ativan] 0.5 mg PO BID PRN 03/05/21 Omeprazole Magnesium 20 mg PO DAILY 03/05/21 Propranolol [Inderal] 10 mg PO TID 03/05/21 Venlafaxine HCl 75 mg PO BID 03/05/21 Buprenorphine HCl/Naloxone HCl [Suboxone 8-2 mg Tab] 2.5 tab SL DAILY 03/27/21
[2021-03-27] MEDS: ASPIRIN EC 81 MG TABLET PO SCH (14:44)
[2021-03-27] MEDS: PROPRANOLOL 10 MG TABLET PO SCH ×2 (14:45→21:26)
[2021-03-27] MEDS: PANTOPRAZOLE 40 MG TABLET PO SCH (14:45)
[2021-03-27] MEDS: DEXTROSE 5%-0.9% NACL 1,000 ML IV SCH ×2 (15:30→18:06)
[2021-03-27] MEDS: SACCHAROMYCES BOULARDII 250 MG CAPSULE PO SCH ×2 (18:05→21:26)
[2021-03-27 20:02] LABS: ESTIMATED AVERAGE GLUCOSE 117 mg/dL (70-100); HEMOGLOBIN A1c% 5.7 % (4.27-6.07)
[2021-03-27] MEDS ORDERED: risperiDONE 1 MG TABLET PO SCH (21:00)
[2021-03-27] MEDS: gemfibroziL 600 MG TABLET PO SCH (21:26)
[2021-03-28] MEDS ORDERED: HYDROmorphone 0.5 MG/0.5 ML SYRINGE ONE (02:11)
[2021-03-28 06:20] LABS: BASOPHILS # (AUTO) 0.1 10^3/uL (0.0-0.1); BASOPHILS % (AUTO) 0.8 %; EOSINOPHILS # (AUTO) 0.3 10^3/uL (0.0-0.7); EOSINOPHILS % (AUTO) 4.7 %; HCT - HEMATOCRIT 33.4 % (37.0-47.0); HGB - HEMOGLOBIN 10.1 g/dL (12.0-16.0); LYMPHOCYTES # (AUTO) 0.6 10^3/uL (1.5-3.5); LYMPHOCYTES % (AUTO) 9.6 %; MEAN CORPUSCULAR HEMOGLOBIN 28.6 pg (27.0-31.0); MEAN CORPUSCULAR HGB CONC 30.2 g/dL (32.0-36.0); MEAN CORPUSCULAR VOLUME 94.6 fL (81.0-99.0); MEAN PLATELET VOLUME 10.8 fL (7.9-10.8); MONOCYTES # (AUTO) 0.7 10^3/uL (0.0-1.0); MONOCYTES % (AUTO) 11.1 %; NEUTROPHILS # (AUTO) 4.5 10^3/uL (1.5-6.6); NEUTROPHILS % (AUTO) 73.3 %; PLT - PLATELET COUNT 330 10^3/uL (130-450); RED BLOOD COUNT 3.53 10^6/uL (4.20-5.40); RED CELL DISTRIBUTION WIDTH 16.9 % (12.0-15.0); WHITE BLOOD COUNT 6.1 x10^3/uL (4.8-10.8)
[2021-03-28 06:29] LABS: CALCIUM 9.6 mg/dL (8.5-10.3); CREATININE 2.2 mg/dL (0.4-1.0); POTASSIUM 3.8 mmol/L (3.5-5.0)
[2021-03-28] MEDS: LEVOTHYROXINE 25 MCG TABLET PO SCH (06:46)
[2021-03-28] MEDS: PANTOPRAZOLE 40 MG TABLET PO SCH (06:46)
[2021-03-28] MEDS: PROPRANOLOL 10 MG TABLET PO SCH ×3 (06:46→21:35)
[2021-03-28] MEDS: D5.45NS W/20 MEQ KCL 1,000 ML IV SCH ×2 (08:28→21:18)
[2021-03-28] MEDS: SODIUM CHLORIDE FLUSH 0.9% 10 ML SYRINGE IVP SCH ×2 (08:28→18:11)
[2021-03-28] MEDS: ASPIRIN EC 81 MG TABLET PO SCH (08:45)
[2021-03-28] MEDS: LORazepam 0.5 MG TABLET PO PRN (08:45)
[2021-03-28] MEDS: cefTRIAXone 1 GM in SODIUM CHLORIDE 0.9% MINIBAG 100 ML IV SCH (08:49)
[2021-03-28] MEDS: BUPRENORPHINE/NALOXONE 8-2 MG TAB SL SCH (09:00)
[2021-03-28] MEDS: SACCHAROMYCES BOULARDII 250 MG CAPSULE PO SCH ×2 (09:00→21:36)
[2021-03-28] MEDS ORDERED: VENLAFAXINE HCL 75 MG PO SCH (09:00)
[2021-03-28] MEDS: gemfibroziL 600 MG TABLET PO SCH ×2 (09:00→21:36)
[2021-03-28] MEDS ORDERED: BUPRENORPHINE/NALOXONE 8-2 MG TAB SL SCH (09:00)
--- NOTE | 2021-03-28 09:06 | PROVIDER PROGRESS NOTE ---
Assessment/Plan - Problem List (1) Altered mental status Qualifiers: Altered mental status type: somnolence Qualified Code(s): R40.0 - Somnolence Assessment/Plan: 03/28, We will hold patient's home suboxone, Ativan PRN, and Venlafaxine on Yesterday, because of pt's AMS and sleeping whole day. today pt is alert and agitated, will resume pt's home suboxone, Ativan PRN, and Venlafaxine, Risperdal at PM. Unfortunately this almost is pt's pattern when she was Initially admitted at hospital. we will continue neuro check, nurse re-oriented for pt. Treat underline of infection, dehydration. 03/27, pt is alert but still present confused. we will hold her home suboxone, Ativan, and Venlafaxine on today, IVF and resume her diet to help her dehydr ation and help her kidney process of lithium toxicity, treat her underline infection left foot cellulitis and possible UTI with antibiotics Rocephin and order blood culture, UA culture is pending. continue neuro check. 2. Bilateral leg weakness 03/28, we will continue PT/OT evaluation and treatment for pt. cellulitis on her left foot is improved. continue treat with antibiotics. pt has no respiratory distress, she had 97% sat on room air. 03/27 pt has poor appetite and hypoglycemia, acute cellulitis and UTI infection, dehydration with elevated BUN and creatinine which also could contribute to bilateral leg weakness. order PT/OT evaluation and treatment, and we will continue closely check neuromuscular status and [place] syndrome, pt had Covid 19 booster and flu vaccine last week. Spinal cord abscess was ruled out by lumbar CT in the ED. 3. [place] toxicity 03/27 Continue IV fluids to help process of her lithium toxicity, but also precaution of fluid overloaded at pt has hx of CKD. her lithium level in the ED was 1.37. Given this and the whole body twitching, it is likely she has mild lithium toxicity. 4. Chronic Kidney Disease 03/28 improved, creatinine is 2.2 from 2.5 yesterday. pt has no respiratory distress, she had 97% sat on room air. continue gentle IVF, lab monitor 03/27 Patient has a history of chronic kidney disease. Continue gentle IV fluids, avoid nephrotoxic agent, lab monitor 5. UTI due to chronic indwelling catheter 03/28 UA culture show positive of Enterococcus Faecalis, sensitive to almost all antibiotics, continue treat with Rocephin 03/27 continue Rocephin. Rocephin started on ER and at admission of inpt. UA culture is pending. pt has hx of chronic indwelling urinary catheter, and frequently UTI. pt present AMS, UA show large esterase and pyuria. 6.Cellulitis 03/28 significantly improved, erythema, swelling are reduced significantly, blood culture are pending, Continue antibiotics Rocephin 03/27 pt present cellulitis with erythema, warm and swelling at left foot. pt has no fever, WBC at normal arrange, Lactic acid is 1.7, continue Rocephin now and blood culture is ordered and pending 7. hypoglycemia 1126, resolved. 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 pt has hx of DM2 but she has no home meds for diabetes now. 8. dehydration 1126, improved, creatinine 2.2 from 2.5 on yesterday, BUN 33 from yesterday 41. Na is slight elevated 148, change to D5 1/2 NS IVF, continue lab monitor 03/27 pt has elevated BUN and creatinine, start with IVF at ER with 2 liters, will continue gentle IVF. CXR reveals no acute process, pt has 95-99% O2 sats without respiratory distress now. 9. generalized weakness 1126, will continue consult with PT and OT. pt present generalized weakness, PT/OT evaluation and treatment for pt, treated underline medical problems as well. 10. chronic pain syndrome 03/28 No other opiates medication at her home medication list, pt has hx of opiates abuse, will continue hold opiates, resume home Suboxon - Current Meds Current Meds: Current Medications Generic Name Dose Route Start Last Admin Trade Name Freq PRN Reason Stop Dose Admin Aspirin 81 mg 03/27/21 12:00 03/28/21 08:45 Aspirin Ec 81 Mg Tablet PO 81 mg DAILY [facility] Administration Enoxaparin Sodium 30 mg 03/27/21 09:00 03/27/21 11:13 Enoxaparin 30 Mg/0.3 Ml Syringe SUBQ 30 mg DAILY [facility] Administration Gemfibrozil 600 mg 03/27/21 21:00 03/28/21 09:00 Gemfibrozil 600 Mg Tablet PO 600 mg BID [facility] Administration Ceftriaxone Sodium 1 gm/ 100 mls @ 200 mls/hr 03/27/21 10:00 03/28/21 08:49 Sodium Chloride IV 200 mls/hr DAILY [facility] Administration Potassium Chloride/Dextrose/Sod Cl 1,000 mls @ 83.333 mls/hr 03/28/21 08:00 03/28/21 08:58 D5.45ns W/20 Meq Kcl IV 03/29/21 07:59 0 mls/hr .Q12H [facility] Infusion Levothyroxine Sodium 50 mcg 03/28/21 07:00 03/28/21 06:46 Levothyroxine 25 Mcg Tablet PO 50 mcg QDAC [facility] Administration Lorazepam 0.5 mg 03/28/21 07:53 03/28/21 08:45 Lorazepam 0.5 Mg Tablet PO 0.5 mg BID PRN Administration Anxiety Pantoprazole Sodium 40 mg 03/27/21 13:00 03/28/21 06:46 Pantoprazole 40 Mg Tablet PO 40 mg QDAC [facility] Administration Propranolol HCl 10 mg 03/27/21 14:00 03/28/21 06:46 Propranolol 10 Mg Tablet PO 10 mg TID [facility] Administration Saccharomyces Boulardii 250 mg 03/27/21 17:00 03/28/21 09:00 Saccharomyces Boulardii 250 Mg Capsule PO 250 mg BIDWM [facility] Administration Sodium Chloride 10 ml 03/27/21 01:00 03/28/21 08:28 Sodium Chloride Flush 0.9% 10 Ml Syringe IVP 10 ml 0100,0900,1700 [facility] Administration - Lab Result [place] Diagrams: 03/28/21 06:07 03/28/21 06:07 - Additional Planning My Orders: My Active Orders 03/27/21 08:28 Blood Glucose Checks - Eating [RC] 0800,1200,1700,2100 03/27/21 09:34 Blood Culture [CULTURE, BLOOD #1] [RM] Urgent 03/27/21 09:45 Blood Culture [CULTURE, BLOOD #2] [RM] Urgent 03/27/21 10:00 cefTRIAXone [Rocephin] 1 gm Sodium Chloride 0.9% Minibag [Normal Saline 0.9% Minibag] 100 ml IV DAILY 03/27/21 10:44 Neuro Check [RC] QSHIFT 03/27/21 12:00 Aspirin EC [Ecotrin] 81 mg PO DAILY 03/27/21 13:00 Pantoprazole [Protonix] 40 mg PO QDAC 03/27/21 14:00 Propranolol [Inderal] 10 mg PO TID 03/27/21 17:00 Saccharomyces Boulardii [Florastor] 250 mg PO BIDWM 03/27/21 21:00 gemfibroziL [Lopid] 600 mg PO BID 03/28/21 07:00 Levothyroxine [Synthroid] 50 mcg PO QDAC 03/28/21 07:53 LORazepam [Ativan] 0.5 mg PO BID PRN 03/28/21 08:00 D5.45ns W/20 Meq KCl 1,000 ml IV 83.333 mls/hr 03/28/21 09:00 Buprenorphine HCl/Naloxone HCl [Suboxone 8-2 mg Tab] 2.5 tab SL DAILY Venlafaxine [Effexor] 75 mg PO BID 03/28/21 21:00 Gabapentin [Neurontin] 100 mg PO QPM risperiDONE [RisperDAL] 1 mg PO QPM 03/29/21 05:00 BMP - BASIC METABOLIC PANEL [CHEM] DAILYLAB CBC - COMP BLD CT W/AUTO DIFF [HEME] DAILYLAB 03/30/21 05:00 BMP - BASIC METABOLIC PANEL [CHEM] DAILYLAB CBC - COMP BLD CT W/AUTO DIFF [HEME] DAILYLAB 03/31/21 05:00 BMP - BASIC METABOLIC PANEL [CHEM] DAILYLAB CBC - COMP BLD CT W/AUTO DIFF [HEME] DAILYLAB 04/01/21 05:00 BMP - BASIC METABOLIC PANEL [CHEM] DAILYLAB CBC - COMP BLD CT W/AUTO DIFF [HEME] DAILYLAB Subjective - Subjective Nursing Reports: Confused Objective Vital Signs: Vital Signs - 24 hr 03/27/21 03/27/21 03/27/21 09:43 12:11 16:00 Temperature 36.7 C 36.7 C 37.0 C Heart Rate [ 70 75 79 Brachial] Heart Rate [ Monitoring electrodes] Respiratory 18 20 16 Rate Blood Pressure 98/60 [Left Brachial artery] Blood Pressure 115/98 H [Left Radial artery] Blood Pressure 109/56 L [Right Brachial artery] O2 Saturation 99 95 96 03/27/21 03/28/21 03/28/21 21:27 01:01 07:45 Temperature 36.4 C L 36.8 C Heart Rate [ 80 79 Brachial] Heart Rate [ 80 Monitoring electrodes] Respiratory 18 16 Rate Blood Pressure 124/82 H 128/86 H [Left Brachial artery] Blood Pressure [Left Radial artery] Blood Pressure 109/79 [Right Brachial artery] O2 Saturation 96 97 Oxygen O2 Source [Without Activity] Room air O2 Source Room air I&O (Last 24 Hrs): Intake and Output Totals x24h 03/26/21 03/27/21 03/28/21 23:59 23:59 23:59 Intake Total 3852 673.359 Output Total 1200 2700 650 Balance -1200 1152 23.359 General: Alert, Mild distress HEENT: Atraumatic Neck: Supple Lymphatic: no adenopathy Neuro: Alert, Non Focal Cardiovascular: Regular rate, Normal S1, Normal S2 Respiratory: Chest non-tender, No respiratory distress Abdomen: Normal bowel sounds, Soft Extremities: Normal pulses - Results Results: Laboratory Results WBC 6.1 x10^3/uL (4.8-10.8) 03/28/21 06:07 RBC 3.53 10^6/uL (4.20-5.40) L 03/28/21 06:07 Hgb 10.1 g/dL (12.0-16.0) L 03/28/21 06:07 Hct 33.4 % (37.0-47.0) L 03/28/21 06:07 MCV 94.6 fL (81.0-99.0) 03/28/21 06:07 MCH 28.6 pg (27.0-31.0) 03/28/21 06:07 MCHC 30.2 g/dL (32.0-36.0) L 03/28/21 06:07 RDW 16.9 % (12.0-15.0) H 03/28/21 06:07 Plt Count 330 10^3/uL (130-450) 03/28/21 06:07 MPV 10.8 fL (7.9-10.8) 03/28/21 06:07 Neut # (Auto) 4.5 10^3/uL (1.5-6.6) 03/28/21 06:07 Lymph # (Auto) 0.6 10^3/uL (1.5-3.5) L 03/28/21 06:07 [place] # (Auto) 0.7 10^3/uL (0.0-1.0) 03/28/21 06:07 Eos # (Auto) 0.3 10^3/uL (0.0-0.7) 03/28/21 06:07 Baso # (Auto) 0.1 10^3/uL (0.0-0.1) 03/28/21 06:07 Absolute Nucleated RBC 0.00 x10^3/uL 03/28/21 06:07 Nucleated RBC % 0.0 /100WBC 03/28/21 06:07 ESR 42 mm/Hr (0-30) H 03/26/21 18:45 Sodium 148 mmol/L (135-145) H 03/28/21 06:07 Potassium 3.8 mmol/L (3.5-5.0) 03/28/21 06:07 Chloride 114 mmol/L (101-111) H 03/28/21 06:07 Carbon Dioxide 19 mmol/L (21-32) L 03/28/21 06:07 Anion Gap 15.0 (6-13) H 03/28/21 06:07 BUN 33 mg/dL (6-20) H 03/28/21 06:07 Creatinine 2.2 mg/dL (0.4-1.0) H 03/28/21 06:07 Estimated GFR (MDRD) 22 (>89) L 03/28/21 06:07 Glucose 102 mg/dL (70-100) H 03/28/21 06:07 Estimat Average Glucose 117 mg/dL (70-100) H 03/27/21 05:27 Hemoglobin A1c % 5.7 % (4.27-6.07) 03/27/21 05:27 Lactic Acid 1.7 mmol/L (0.5-2.2) 03/27/21 09:05 Calcium 9.6 mg/dL (8.5-10.3) 03/28/21 06:07 Magnesium 2.5 mg/dL (1.7-2.8) 03/26/21 18:45 Total Bilirubin 0.6 mg/dL (0.2-1.0) 03/26/21 18:45 AST 15 IU/L (10-42) 03/26/21 18:45 ALT 10 IU/L (10-60) 03/26/21 18:45 Alkaline Phosphatase 156 IU/L (42-121) H 03/26/21 18:45 Ammonia 34.2 umol/L (7-35) 03/27/21 05:27 Total Creatine Kinase 152 IU/L (22-269) 03/26/21 18:45 B-Natriuretic Peptide 32 pg/mL (5-100) 03/26/21 18:45 Total Protein 7.1 g/dL (6.7-8.2) 03/26/21 18:45 Albumin 3.2 g/dL (3.2-5.5) 03/26/21 18:45 Globulin 3.9 g/dL (2.1-4.2) 03/26/21 18:45 Albumin/Globulin Ratio 0.8 (1.0-2.2) L 03/26/21 18:45 Lipase 35 U/L (22-51) 03/26/21 18:45 TSH 3.22 uIU/mL (0.34-5.60) 03/26/21 18:45 Urine Color STRAW 03/26/21 18:40 Urine Clarity HAZY (CLEAR) 03/26/21 18:40 Urine pH 5.5 PH (5.0-7.5) 03/26/21 18:40 Ur Specific [place] <=1.005 (1.002-1.030) 03/26/21 18:40 Urine Protein NEGATIVE mg/dL (NEGATIVE) 03/26/21 18:40 Urine Glucose (UA) NEGATIVE mg/dL (NEGATIVE) 03/26/21 18:40 Urine Ketones NEGATIVE mg/dL (NEGATIVE) 03/26/21 18:40 Urine Occult Blood SMALL (NEGATIVE) H 03/26/21 18:40 Urine Nitrite NEGATIVE (NEGATIVE) 03/26/21 18:40 Urine Bilirubin NEGATIVE (NEGATIVE) 03/26/21 18:40 Urine Urobilinogen 0.2 (NORMAL) E.U./dL (NORMAL) 03/26/21 18:40 Ur Leukocyte Esterase LARGE (NEGATIVE) H 11/24/21 18:40 Urine RBC 6-10 /HPF (0-5) H 03/26/21 18:40 Urine WBC >25 /HPF (0-5) H 03/26/21 18:40 Ur Squamous Epith Cells FEW Squamous (<= Few) 03/26/21 18:40 Urine Bacteria Few /HPF (None Seen) 03/26/21 18:40 Urine Yeast PRESENT 03/26/21 18:40 Ur Microscopic Review INDICATED 03/26/21 18:40 Urine Culture Comments INDICATED 03/26/21 18:40 Nasal Adenovirus (PCR) NOT DETECTED 03/26/21 22:40 Nasal B. parapertussis DNA (PCR) NOT DETECTED 03/26/21 22:40 Nasal Coronavir 229E PCR NOT DETECTED 03/26/21 22:40 Nasal Coronavir HKU1 PCR NOT DETECTED 03/26/21 22:40 Nasal Coronavir NL63 PCR NOT DETECTED 03/26/21 22:40 Nasal Coronavir OC43 PCR NOT DETECTED 03/26/21 22:40 Nasal Enterovir/Rhinovir PCR NOT DETECTED 03/26/21 22:40 Nasal Influenza B PCR NOT DETECTED 03/26/21 22:40 Nasal Influenza A PCR NOT DETECTED 03/26/21 22:40 Nasal Parainfluen 1 PCR NOT DETECTED 03/26/21 22:40 Nasal Parainfluen 2 PCR NOT DETECTED 03/26/21 22:40 Nasal Parainfluen 3 PCR NOT DETECTED 03/26/21 22:40 Nasal Parainfluen 4 PCR NOT DETECTED 03/26/21 22:40 Nasal RSV (PCR) NOT DETECTED 03/26/21 22:40 Nasal B.pertussis DNA PCR NOT DETECTED 03/26/21 22:40 Nasal C.pneumoniae (PCR) NOT DETECTED 03/26/21 22:40 [place]ael Human Metapneumo PCR NOT DETECTED 03/26/21 22:40 Nasal M.pneumoniae (PCR) NOT DETECTED 03/26/21 22:40 Nasal SARS-CoV-2 (PCR) NOT DETECTED 03/26/21 22:40 Last Dose Date Not Reportable 03/26/21 18:45 Last Dose Time Not Reportable 03/26/21 18:45 Urine Opiates Screen NEGATIVE (NEGATIVE) 03/26/21 21:30 Ur Oxycodone Screen NEGATIVE (NEGATIVE) 03/26/21 21:30 Urine Methadone Screen NEGATIVE (NEGATIVE) 03/26/21 21:30 Ur Propoxyphene Screen NEGATIVE (NEGATIVE) 03/26/21 21:30 Ur Barbiturates Screen NEGATIVE (NEGATIVE) 03/26/21 21:30 Ur Tricyclics Screen NEGATIVE (NEGATIVE) 03/26/21 21:30 Ur Phencyclidine Scrn NEGATIVE (NEGATIVE) 03/26/21 21:30 Ur Amphetamine Screen NEGATIVE (NEGATIVE) 03/26/21 21:30 U Methamphetamines Scrn NEGATIVE (NEGATIVE) 03/26/21 21:30 U Benzodiazepines Scrn NEGATIVE (NEGATIVE) 03/26/21 21:30 [place] 1.37 mmol/L 03/26/21 18:45 Urine Cocaine Screen NEGATIVE (NEGATIVE) 03/26/21 21:30 U Cannabinoids Screen NEGATIVE (NEGATIVE) 03/26/21 21:30 Ethyl Alcohol < 5.0 mg/dL 03/26/21 18:45 - Procedures Procedures: Procedures COLONOSCOPY (01/09/13) DRAINAGE OF BLADDER WITH DRAINAGE DEVICE, VIA OPENING (11/25/19) ABX Reporting Has patient been on IV antibiotics over the past 48 hours?: Yes Current Medications - Current Medications Current Medications: Active Medications Aspirin (Aspirin Ec 81 Mg Tablet) 81 mg PO DAILY [facility] Last Admin: 03/28/21 08:45 Dose: 81 mg Documented by: Buprenorphine HCl (Buprenorphine/Naloxone 8-2 Mg Tab) 2.5 tab SL DAILY [facility] Last Admin: 03/28/21 09:00 Dose: 2.5 tab Documented by: Enoxaparin Sodium (Enoxaparin 30 Mg/0.3 Ml Syringe) 30 mg SUBQ DAILY [facility] Last Admin: 03/27/21 11:13 Dose: 30 mg Documented by: Gabapentin (Gabapentin 100 Mg Capsule) 100 mg PO QPM [facility] Gemfibrozil (Gemfibrozil 600 Mg Tablet) 600 mg PO BID [facility] Last Admin: 03/28/21 09:00 Dose: 600 mg Documented by: Ceftriaxone Sodium 1 gm/ (Sodium Chloride) 100 mls @ 200 mls/hr IV DAILY [facility] Last Admin: 03/28/21 08:49 Dose: 200 mls/hr Documented by: Potassium Chloride/Dextrose/Sod Cl (D5.45ns W/20 Meq Kcl) 1,000 mls @ 83.333 mls/hr IV .Q12H [facility] Stop: 03/29/21 07:59 Last Infusion: 03/28/21 08:58 Dose: 0 mls/hr Documented by: Ibuprofen (Ibuprofen 400 Mg Tablet) 400 mg PO Q4HR PRN PRN Reason: Pain 1 to 4 Levothyroxine Sodium (Levothyroxine 25 Mcg Tablet) 50 mcg PO QDAC [facility] Last Admin: 03/28/21 06:46 Dose: 50 mcg Documented by: Lorazepam (Lorazepam 0.5 Mg Tablet) 0.5 mg PO BID PRN PRN Reason: Anxiety Last Admin: 03/28/21 08:45 Dose: 0.5 mg Documented by: Multi-Ingredient Ointment (Zinc Oxide 20% Oint 30 Gm Tube) 1 applic TOP PRN PRN PRN Reason: Skin Care Ondansetron HCl (Ondansetron Odt 4 Mg Tablet) 4 mg TL Q6HR PRN PRN Reason: Nausea / Vomiting Ondansetron HCl (Ondansetron 4 Mg/2 Ml Vial) 4 mg IVP Q6HR PRN PRN Reason: Nausea / Vomiting Pantoprazole Sodium (Pantoprazole 40 Mg Tablet) 40 mg PO QDAC [facility] Last Admin: 03/28/21 06:46 Dose: 40 mg Documented by: Propranolol HCl (Propranolol 10 Mg Tablet) 10 mg PO TID [facility] Last Admin: 03/28/21 06:46 Dose: 10 mg Documented by: Risperidone (Risperidone 1 Mg Tablet) 1 mg PO QPM [facility] Saccharomyces Boulardii (Saccharomyces Boulardii 250 Mg Capsule) 250 mg PO BIDWM [facility] Last Admin: 03/28/21 09:00 Dose: 250 mg Documented by: Sodium Chloride (Sodium Chloride Flush 0.9% 10 Ml Syringe) 10 ml IVP PRN PRN PRN Reason: NEEDED PER PROVIDER ORDERS Sodium Chloride (Sodium Chloride Flush 0.9% 10 Ml Syringe) 10 ml IVP 0100,0900,1700 [facility] Last Admin: 03/28/21 08:28 Dose: 10 ml Documented by: Venlafaxine HCl (Venlafaxine 37.5 Mg Tablet) 75 mg PO BID [facility] Cholecalciferol [Vitamin D3] 25 mcg PO DAILY 08/15/20 Gabapentin [Neurontin] 100 mg PO QPM 08/15/20 Aspirin [Aspirin EC] 81 mg PO DAILY 12/27/20 Furosemide [Lasix] 20 mg PO DAILY 03/05/21 LORazepam [Ativan] 0.5 mg PO BID PRN 03/05/21 Omeprazole Magnesium 20 mg PO DAILY 03/05/21 Propranolol [Inderal] 10 mg PO TID 03/05/21 Venlafaxine HCl 75 mg PO BID 03/05/21 Buprenorphine HCl/Naloxone HCl [Suboxone 8-2 mg Tab] 2.5 tab SL DAILY 03/27/21
[2021-03-28] MEDS: ENOXAPARIN 30 MG/0.3 ML SYRINGE SUBQ SCH (10:26)
[2021-03-28] MEDS: VENLAFAXINE 37.5 MG TABLET PO SCH ×3 (11:01→21:35)
[2021-03-28] MEDS: ZINC OXIDE 20% OINT 30 GM TUBE TOP PRN ×2 (14:32→21:19)
[2021-03-28] MEDS ORDERED: GABAPENTIN 100 MG CAPSULE PO SCH (21:00)
[2021-03-28] MEDS: risperiDONE 1 MG TABLET PO SCH (21:36)
[2021-03-28] MEDS: GABAPENTIN 100 MG CAPSULE PO SCH (21:36)
[2021-03-28] MEDS: DOCUSATE SODIUM 250 MG CAPSULE PO SCH (21:36)
[2021-03-28] MEDS: SENNA 8.6 MG TABLET PO SCH (21:44)
[2021-03-29] MEDS: SODIUM CHLORIDE FLUSH 0.9% 10 ML SYRINGE IVP SCH ×3 (01:00→18:04)
[2021-03-29 05:44] LABS: BASOPHILS % (AUTO) 0.7 %; EOSINOPHILS # (AUTO) 0.3 10^3/uL (0.0-0.7); EOSINOPHILS % (AUTO) 5.5 %; HCT - HEMATOCRIT 29.1 % (37.0-47.0); HGB - HEMOGLOBIN 8.8 g/dL (12.0-16.0); MEAN CORPUSCULAR HEMOGLOBIN 28.3 pg (27.0-31.0); MEAN CORPUSCULAR HGB CONC 30.2 g/dL (32.0-36.0); MEAN CORPUSCULAR VOLUME 93.6 fL (81.0-99.0); MEAN PLATELET VOLUME 10.5 fL (7.9-10.8); MONOCYTES # (AUTO) 0.7 10^3/uL (0.0-1.0); MONOCYTES % (AUTO) 11.9 %; NEUTROPHILS # (AUTO) 3.9 10^3/uL (1.5-6.6); NEUTROPHILS % (AUTO) 65.6 %; PLT - PLATELET COUNT 305 10^3/uL (130-450); RED BLOOD COUNT 3.11 10^6/uL (4.20-5.40); RED CELL DISTRIBUTION WIDTH 17.3 % (12.0-15.0)
[2021-03-29 05:51] LABS: CALCIUM 9.3 mg/dL (8.5-10.3); CREATININE 1.9 mg/dL (0.4-1.0); POTASSIUM 4.3 mmol/L (3.5-5.0)
[2021-03-29] MEDS: LEVOTHYROXINE 25 MCG TABLET PO SCH (07:25)
[2021-03-29] MEDS: PROPRANOLOL 10 MG TABLET PO SCH ×3 (07:26→22:18)
[2021-03-29] MEDS: PANTOPRAZOLE 40 MG TABLET PO SCH (07:26)
[2021-03-29] MEDS: SACCHAROMYCES BOULARDII 250 MG CAPSULE PO SCH ×2 (07:47→16:27)
[2021-03-29] MEDS: cefTRIAXone 1 GM in SODIUM CHLORIDE 0.9% MINIBAG 100 ML IV SCH (08:32)
[2021-03-29] MEDS: DOCUSATE SODIUM 250 MG CAPSULE PO SCH (08:32)
[2021-03-29] MEDS: VENLAFAXINE 37.5 MG TABLET PO SCH ×2 (08:32→20:33)
[2021-03-29] MEDS: ASPIRIN EC 81 MG TABLET PO SCH (08:32)
[2021-03-29] MEDS: ENOXAPARIN 30 MG/0.3 ML SYRINGE SUBQ SCH (08:33)
[2021-03-29] MEDS: gemfibroziL 600 MG TABLET PO SCH ×2 (08:51→20:33)
[2021-03-29] MEDS: SENNA 8.6 MG TABLET PO SCH (08:52)
[2021-03-29] MEDS: BUPRENORPHINE/NALOXONE 8-2 MG TAB SL SCH (08:52)
--- NOTE | 2021-03-29 09:06 | PROVIDER PROGRESS NOTE ---
Subjective - Prog Note Date Prog Note Date: 03/29/21 - Subjective Pt reports feeling: Improved Subjective: Reports feeling okay this morning and sleeping well overnight. Denies pain, nausea or vomiting. Alert and not agitated though remains slightly confused. Objective - Vital Signs/Intake & Output Reviewed Vital Signs: Yes Vital Signs: Vital Signs x48h Temp Pulse Resp BP Pulse Ox 03/29/21 02:49 36.5 C 61 20 133/61 H 98 Intake & Output: Intake & Output 03/26/21 03/27/21 03/28/21 03/29/21 23:59 23:59 23:59 23:59 Intake Total 3852 2554.466 700 Output Total 1200 2700 2150 650 Balance -1200 1152 404.466 50 - Objective General Appearance: positive: No acute distress, Alert Eyes Bilateral: positive: Normal inspection, PERRL ENT: positive: ENT inspection nml, No signs of dehydration Neck: positive: Nml inspection Respiratory: positive: Chest non-tender, No respiratory distress, Wheezes (wheezes heard in all lung [place] after coughing on her water, clear throughout later in the afternoon) Cardiovascular: positive: Regular rate & rhythm, No murmur, No gallop Abdomen: positive: Non-tender, No organomegaly, Nml bowel sounds, No distention Back: positive: Nml inspection Skin: positive: Color nml, Other (Bruising over bilateral forearms from venous punctures and IVs. Skin tear to left dorsal hand.) Extremities: positive: Non-tender, Nml appearance Neurologic/Psychiatric: positive: Disoriented to time, Weakness, Other (oriented to self and [facility], not oriented to year (unable to say anything) or date ("June"); mild lower extremity twitching) - Lab Results Fish Bones: 03/29/21 05:30 03/29/21 05:30 Other Labs: Lab Results x24hrs 03/29/21 03/29/21 Range/Units 05:30 05:30 WBC 6.0 (4.8-10.8) x10^3/uL RBC 3.11 L (4.20-5.40) 10^6/uL Hgb 8.8 L (12.0-16.0) g/dL Hct 29.1 L (37.0-47.0) % MCV 93.6 (81.0-99.0) fL MCH 28.3 (27.0-31.0) pg MCHC 30.2 L (32.0-36.0) g/dL RDW 17.3 H (12.0-15.0) % Plt Count 305 (130-450) 10^3/uL MPV 10.5 (7.9-10.8) fL Neut # (Auto) 3.9 (1.5-6.6) 10^3/uL Lymph # (Auto) 1.0 L (1.5-3.5) 10^3/uL [place] # (Auto) 0.7 (0.0-1.0) 10^3/uL Eos # (Auto) 0.3 (0.0-0.7) 10^3/uL Baso # (Auto) 0.0 (0.0-0.1) 10^3/uL Absolute Nucleated RBC 0.00 x10^3/uL Nucleated RBC % 0.0 /100WBC Sodium 145 (135-145) mmol/L Potassium 4.3 (3.5-5.0) mmol/L Chloride 113 H (101-111) mmol/L Carbon Dioxide 21 (21-32) mmol/L Anion Gap 11.0 (6-13) BUN 26 H (6-20) mg/dL Creatinine 1.9 H (0.4-1.0) mg/dL Estimated GFR (MDRD) 26 L (>89) Glucose 103 H (70-100) mg/dL Calcium 9.3 (8.5-10.3) mg/dL ABX Reporting Has patient been on IV antibiotics over the past 48 hours?: Yes Assessment/Plan - Problem List (1) Altered mental status Impression: Pt is calm and alert today after restarting her Suboxone, PRN Ativan, and Venlafaxine. She is oriented to self and place but when asked the date she could not name a year and reported that it was "June" when asked for a month. When asked if she knew what day of the week it is her response was "oh, that's a mean one!" She has been able to be reoriented by nursing and later this afternoon was seen on the phone "talking to my sweetie". The AMS is likely due to her [place] toxicity, possibly infection as well given that she has been receiving treatment for cellulitis. -Continue with neuro checks Qshift -Continue home meds Qualifiers: Altered mental status type: somnolence Qualified Code(s): R40.0 - Somnolence (2) [place] toxicity Impression: Stable. On admission her [place] level in the ED was 1.37 and she was exhibiting signs of full body twitching, indicative of mild toxicity. Nursing notes indicate her reported she is taking [place] for bipolar disorder treatment, however it is unclear where she is getting the prescription. She was given IVF. She continues to exhibit mild lower body/bilateral foot twitching at this time. (3) Chronic kidney disease (CKD) Impression: Improved. Creatine 1.9 today (<--2.2 <--2.5). She is no longer receiving maintenance IVF, continue to encourage oral hydration. -Daily BMP -Encourage hydration (4) UTI (urinary tract infection) Impression: Stable. She has a history of chronic indwelling chen catheter and has been receiving Rocephin for treatment of UTI with UA growing E. Faecalis. Denies burning or dysuria. VSS, WBC stable at 6. Transitioned to oral antibiotics with plan for last dose tomorrow evening. -Stop Rocephin -Start Keflex 500mg PO Q6H, stop 03/30 after pm dose for total antibiotic course of 4 days Qualifiers: Urinary tract infection type: catheter-associated UTI Indwelling urinary catheter type: indwelling urethral catheter Encounter type: initial encounter Qualified Code(s): T83.511A - Infection and inflammatory reaction due to indwelling urethral catheter, initial encounter; N39.0 - Urinary tract infectio n, site not specified (5) Cellulitis Impression: Resolved. On admission she was felt to have cellulitis of the left foot, with erythema, warmth and swelling. She has remained afebrile with WBC in normal range. She was treated with Rocephin for both cellulitis and chronic UTI. Today on exam there is no warmth or erythema and there is mild pedal edema in both feet. There are no current signs of cellulitis to the left foot. (6) Hypoglycemia Impression: Resolved. A1C 5.7. On 03/27 she was found to have a blood glucose of 51. She was treated with D50, D5 IVF, and her Hgb A1C was checked. She has a past his tory of DM2 and nursing has been monitoring her BGs AC/HS. She is not on home medications for diabetes. (7) Dehydration Impression: Improved. Creatinine 1.9 (from 2.2 <-- 2.5) and BUN 26 (from 33<--41). Na is normal, 145. She is no longer receiving IVF and should be encouraged to maintain her oral hydration. (8) Weakness Impression: Stable but not at baseline. Generalized, requiring assistance to get out of bed and walk. She received her COVID 19 booster and flu vaccine last week but does not appear to be having signs of Guillian-Biddle syndrome. Has been working with PT/OT, who recommended SNF vs home health as she requires a 1-2 person assist. -Continue PT/OT -Out of bed as tolerated (9) Chronic pain syndrome Impression: Stable, has denied pain when I have checked with her throughout the day. Will continue to hold opiates given her hx of opiate abuse and no opiates on her home medication list. Continue suboxone. -Continue Suboxone
[2021-03-29] MEDS: cephALEXin 250 MG CAPSULE PO SCH ×2 (12:00→18:03)
[2021-03-29] MEDS: LORazepam 0.5 MG TABLET PO PRN (16:27)
[2021-03-29] MEDS: ZINC OXIDE 20% OINT 30 GM TUBE TOP PRN (20:30)
[2021-03-29] MEDS: risperiDONE 1 MG TABLET PO SCH (20:34)
[2021-03-29] MEDS: GABAPENTIN 100 MG CAPSULE PO SCH (20:34)
[2021-03-29] MEDS: IBUPROFEN 400 MG TABLET PO PRN (20:48)
[2021-03-30] MEDS: cephALEXin 250 MG CAPSULE PO SCH ×4 (01:15→19:50)
[2021-03-30] MEDS: IBUPROFEN 400 MG TABLET PO PRN (01:15)
[2021-03-30] MEDS: SODIUM CHLORIDE FLUSH 0.9% 10 ML SYRINGE IVP SCH ×3 (01:16→19:51)
[2021-03-30 05:35] LABS: BASOPHILS % (AUTO) 0.7 %; EOSINOPHILS # (AUTO) 0.4 10^3/uL (0.0-0.7); EOSINOPHILS % (AUTO) 8.1 %; HCT - HEMATOCRIT 32.3 % (37.0-47.0); HGB - HEMOGLOBIN 9.8 g/dL (12.0-16.0); LYMPHOCYTES # (AUTO) 1.2 10^3/uL (1.5-3.5); LYMPHOCYTES % (AUTO) 22.7 %; MEAN CORPUSCULAR HEMOGLOBIN 28.2 pg (27.0-31.0); MEAN CORPUSCULAR HGB CONC 30.3 g/dL (32.0-36.0); MEAN CORPUSCULAR VOLUME 93.1 fL (81.0-99.0); MEAN PLATELET VOLUME 10.1 fL (7.9-10.8); MONOCYTES # (AUTO) 0.6 10^3/uL (0.0-1.0); MONOCYTES % (AUTO) 10.1 %; NEUTROPHILS # (AUTO) 3.2 10^3/uL (1.5-6.6); NEUTROPHILS % (AUTO) 58.2 %; PLT - PLATELET COUNT 288 10^3/uL (130-450); RED BLOOD COUNT 3.47 10^6/uL (4.20-5.40); RED CELL DISTRIBUTION WIDTH 17.2 % (12.0-15.0); WHITE BLOOD COUNT 5.4 x10^3/uL (4.8-10.8)
[2021-03-30 05:43] LABS: CALCIUM 9.3 mg/dL (8.5-10.3); POTASSIUM 4.8 mmol/L (3.5-5.0)
[2021-03-30] MEDS: PROPRANOLOL 10 MG TABLET PO SCH ×3 (05:59→21:13)
[2021-03-30] MEDS: PANTOPRAZOLE 40 MG TABLET PO SCH (05:59)
[2021-03-30] MEDS: LEVOTHYROXINE 25 MCG TABLET PO SCH (05:59)
--- NOTE | 2021-03-30 07:27 | PROVIDER PROGRESS NOTE ---
Subjective - Prog Note Date Prog Note Date: 03/30/21 - Subjective Pt reports feeling: Improved Subjective: Pt reports she slept well and has no complaints this morning. Denies nausea, vomiting and shortness of breath. Excited to eat her breakfast. Objective - Vital Signs/Intake & Output Reviewed Vital Signs: Yes Vital Signs: Vital Signs x48h Temp Pulse Resp BP Pulse Ox 03/30/21 01:17 36.4 C L 52 L 16 129/57 L 99 Intake & Output: Intake & Output 03/27/21 03/28/21 03/29/21 03/30/21 23:59 23:59 23:59 23:59 Intake Total 3852 2554.466 3776 250 Output Total 2700 2150 2825 400 Balance 1152 404.466 951 -150 - Objective General Appearance: positive: No acute distress, Alert Eyes Bilateral: positive: Normal inspection, PERRL ENT: positive: ENT inspection nml, No signs of dehydration Neck: positive: Nml inspection Respiratory: positive: Chest non-tender, No respiratory distress, Breath sounds nml Cardiovascular: positive: Regular rate & rhythm, No murmur, No gallop Peripheral Pulses: 2+ Radial (R), 2+ Radial (L), 2+ Dorsalis pedis (R), 2+ Dorsalis pedis (L) Abdomen: positive: Non-tender, No organomegaly, Nml bowel sounds, No distention Skin: positive: Color nml, Other (Bruising to bilateral arms from venipunctures, left dorsal hand skin tear covered with a mepilex) Extremities: positive: Non-tender, Full ROM, Nml appearance, Pedal edema (miled) Neurologic/Psychiatric: positive: Oriented x3, Sensation nml, Mood/affect nml, Other (bilateral foot twitching/tremors) - Lab Results Fish Bones: 03/30/21 05:22 03/30/21 05:22 Other Labs: Lab Results x24hrs 03/30/21 03/30/21 Range/Units 05:22 05:22 WBC 5.4 (4.8-10.8) x10^3/uL RBC 3.47 L (4.20-5.40) 10^6/uL Hgb 9.8 L (12.0-16.0) g/dL Hct 32.3 L (37.0-47.0) % MCV 93.1 (81.0-99.0) fL MCH 28.2 (27.0-31.0) pg MCHC 30.3 L (32.0-36.0) g/dL RDW 17.2 H (12.0-15.0) % Plt Count 288 (130-450) 10^3/uL MPV 10.1 (7.9-10.8) fL Neut # (Auto) 3.2 (1.5-6.6) 10^3/uL Lymph # (Auto) 1.2 L (1.5-3.5) 10^3/uL Wise # (Auto) 0.6 (0.0-1.0) 10^3/uL Eos # (Auto) 0.4 (0.0-0.7) 10^3/uL Baso # (Auto) 0.0 (0.0-0.1) 10^3/uL Absolute Nucleated RBC 0.00 x10^3/uL Nucleated RBC % 0.0 /100WBC Sodium 142 (135-145) mmol/L Potassium 4.8 (3.5-5.0) mmol/L Chloride 110 (101-111) mmol/L Carbon Dioxide 21 (21-32) mmol/L Anion Gap 11.0 (6-13) BUN 22 H (6-20) mg/dL Creatinine 2.0 H (0.4-1.0) mg/dL Estimated GFR (MDRD) 25 L (>89) Glucose 75 (70-100) mg/dL Calcium 9.3 (8.5-10.3) mg/dL ABX Reporting Has patient been on IV antibiotics over the past 48 hours?: Yes Sepsis Event Note (H) - Evaluation Current Stage of Sepsis: Ruled out Assessment/Plan - Problem List (1) Altered mental status Impression: Stable. Pt had waxing and waning orientation yesterday, more alert and oriented in the afternoon. Required a dose of PRN ativan in the late afternoon due to r eportedly "feeling crazy" but unable to articulate hhow. This morning is alert and oriented to person, place ([place]), and month (March). The intermittent AMS is likely residual effect of the [place] toxicity at this point as she is no longer showing signs of infection (cellulitis has resolved and today is the last day of antibiotic treatment for UTI). -Continue home meds Qualifiers: Altered mental status type: somnolence Qualified Code(s): R40.0 - Somnolence (2) [place] toxicity Impression: Stable. On admission her [place] level in the ED was 1.37 and she was exhibiting signs of full body twitching, indicative of mild toxicity. Nursing notes indicate her reported she is taking [place] for bipolar disorder treatment, however it is unclear where she is getting the prescription. She was given IVF. She continues to exhibit mild lower body/bilateral foot twitching at this time. Qualifiers: Encounter type: initial encounter (3) Chronic kidney disease (CKD) Impression: Stable. Creatine 2.0 today (1.9 <--2.2 <--2.5). She is no longer receiving maintenance IVF, continue to encourage oral hydration. -Daily BMP -Encourage hydration Qualifiers: Chronic kidney disease stage: unspecified stage Qualified Code(s): N18.9 - Chronic kidney disease, unspecified (4) UTI (urinary tract infection) Impression: Improved. Denies burning and dysuria. Has a history of chronic indwelling chen catheter and has been receiving treatment for UTI as her UA on admission grew E. Faealis. VSS, WBC stable and normal at 5.4. Due for her last dose of oral antibiotics this evening, total course of antibiotics was 4 days. -Continue Keflex 500mg PO Q6H, last dose tonight Qualifiers: Urinary tract infection type: catheter-associated UTI Indwelling urinary catheter type: indwelling urethral catheter Encounter type: initial encounter Qualified Code(s): T83.511A - Infection and inflammatory reaction due to indwelling urethral catheter, initial encounter; N39.0 - Urinary tract infection, site not specified (5) Dehydration Impression: Resolved. Creatinine has been 1.9-2.0 over the past 2 days. IVF was stopped yesterday and her Na remains normal. -Encourage oral hydration (6) Weakness Impression: Stable, appears slightly stronger today on my exam this morning. She worked with PT yesterday and was able to transfer to the bedside chair. Per PT notes she performed limited ambulation with a FWW and CGA and tolerated the activities well. Recommendations are for DC to SNF for continued strengthening and impro nash safety and independence with ADLs. -Out of bed as tolerated (7) Chronic pain syndrome Impression: Stable. Yesterday evening reporting back and neck pain, repositioning somewhat helped in getting her more comfortable. Reported a small amount of pain in her feet today. Will continue to hold opiates given her hx of opiate abuse and no opiates on her home medication list. Continue suboxone. -Continue Suboxone
[2021-03-30] MEDS: SACCHAROMYCES BOULARDII 250 MG CAPSULE PO SCH ×2 (08:29→19:49)
[2021-03-30] MEDS: ASPIRIN EC 81 MG TABLET PO SCH (08:30)
[2021-03-30] MEDS: BUPRENORPHINE/NALOXONE 8-2 MG TAB SL SCH (08:33)
[2021-03-30] MEDS: SENNA 8.6 MG TABLET PO SCH (08:34)
[2021-03-30] MEDS: gemfibroziL 600 MG TABLET PO SCH ×2 (08:34→21:10)
[2021-03-30] MEDS: DOCUSATE SODIUM 250 MG CAPSULE PO SCH (08:34)
[2021-03-30] MEDS: polyethylene glycoL 3350 17 GM PACKET PO SCH (08:34)
[2021-03-30] MEDS: ENOXAPARIN 30 MG/0.3 ML SYRINGE SUBQ SCH (08:34)
[2021-03-30] MEDS: VENLAFAXINE 37.5 MG TABLET PO SCH ×2 (08:35→21:10)
[2021-03-30] MEDS: risperiDONE 1 MG TABLET PO SCH (21:10)
[2021-03-30] MEDS: GABAPENTIN 100 MG CAPSULE PO SCH (21:10)
[2021-03-31] MEDS: SODIUM CHLORIDE FLUSH 0.9% 10 ML SYRINGE IVP SCH ×3 (01:29→18:28)
[2021-03-31] MEDS: LEVOTHYROXINE 25 MCG TABLET PO SCH (05:36)
[2021-03-31] MEDS: PANTOPRAZOLE 40 MG TABLET PO SCH (05:36)
[2021-03-31] MEDS: PROPRANOLOL 10 MG TABLET PO SCH ×3 (05:36→23:00)
[2021-03-31] MEDS: IBUPROFEN 400 MG TABLET PO PRN (05:37)
[2021-03-31 06:40] LABS: BASOPHILS % (AUTO) 0.6 %; EOSINOPHILS # (AUTO) 0.4 10^3/uL (0.0-0.7); EOSINOPHILS % (AUTO) 7.7 %; HCT - HEMATOCRIT 34.2 % (37.0-47.0); HGB - HEMOGLOBIN 10.4 g/dL (12.0-16.0); LYMPHOCYTES # (AUTO) 1.2 10^3/uL (1.5-3.5); LYMPHOCYTES % (AUTO) 22.5 %; MEAN CORPUSCULAR HEMOGLOBIN 28.4 pg (27.0-31.0); MEAN CORPUSCULAR HGB CONC 30.4 g/dL (32.0-36.0); MEAN CORPUSCULAR VOLUME 93.4 fL (81.0-99.0); MEAN PLATELET VOLUME 10.4 fL (7.9-10.8); MONOCYTES # (AUTO) 0.6 10^3/uL (0.0-1.0); MONOCYTES % (AUTO) 10.6 %; NEUTROPHILS % (AUTO) 58.4 %; PLT - PLATELET COUNT 284 10^3/uL (130-450); RED BLOOD COUNT 3.66 10^6/uL (4.20-5.40); RED CELL DISTRIBUTION WIDTH 17.3 % (12.0-15.0); WHITE BLOOD COUNT 5.2 x10^3/uL (4.8-10.8)
[2021-03-31 06:50] LABS: CALCIUM 9.3 mg/dL (8.5-10.3); CREATININE 2.1 mg/dL (0.4-1.0)
[2021-03-31] MEDS: DOCUSATE SODIUM 250 MG CAPSULE PO SCH (08:51)
[2021-03-31] MEDS: VENLAFAXINE 37.5 MG TABLET PO SCH ×2 (08:51→21:33)
[2021-03-31] MEDS: ASPIRIN EC 81 MG TABLET PO SCH (08:51)
[2021-03-31] MEDS: gemfibroziL 600 MG TABLET PO SCH ×2 (08:51→21:23)
[2021-03-31] MEDS: ENOXAPARIN 30 MG/0.3 ML SYRINGE SUBQ SCH (08:51)
[2021-03-31] MEDS: polyethylene glycoL 3350 17 GM PACKET PO SCH (08:52)
[2021-03-31] MEDS: SENNA 8.6 MG TABLET PO SCH (08:52)
[2021-03-31] MEDS: SACCHAROMYCES BOULARDII 250 MG CAPSULE PO SCH ×2 (08:52→18:27)
[2021-03-31] MEDS: BUPRENORPHINE/NALOXONE 8-2 MG TAB SL SCH (10:12)
--- NOTE | 2021-03-31 10:43 | PROVIDER PROGRESS NOTE ---
Subjective - Prog Note Date Prog Note Date: 03/31/21 - Subjective Pt reports feeling: No change Subjective: Reports she slept well overnight and is ready for breakfast this morning. Found to have skin breakdown on her buttocks overnight, nursing has been applying barrier cream. It is blanching and diffuse with scattered open areas of denudement, appears to be moisture related rather than pressure related. Slightly painful to the patient. She reports she has been trying to turn. She has no other complaints at this time. Objective - Vital Signs/Intake & Output Reviewed Vital Signs: Yes Vital Signs: Vital Signs x48h Temp Pulse Pulse Resp BP BP Pulse Ox 03/31/21 08:33 36.7 C 51 L 20 134/61 H 98 03/31/21 07:35 52 L 20 134/61 H 99 Intake & Output: Intake & Output 03/28/21 03/29/21 03/30/21 03/31/21 23:59 23:59 23:59 23:59 Intake Total 2554.466 3776 1480 170 Output Total 2150 2825 1975 1150 Balance 404.466 953 -339 -980 - Objective General Appearance: positive: No acute distress, Alert Eyes Bilateral: positive: Normal inspection ENT: positive: ENT inspection nml, No signs of dehydration Neck: positive: Nml inspection Respiratory: positive: Chest non-tender, No respiratory distress, Breath sounds nml Cardiovascular: positive: Regular rate & rhythm, No murmur, No gallop Peripheral Pulses: 2+ Dorsalis pedis (R), 2+ Dorsalis pedis (L) Abdomen: positive: Non-tender, No organomegaly, Nml bowel sounds, No distention Skin: positive: Color nml, Other (Red and blanching friction related skin breakdown to her buttocks) Extremities: positive: Non-tender, Nml appearance, Pedal edema Neurologic/Psychiatric: positive: Oriented x3, Sensation nml, Mood/affect nml - Lab Results Fish Bones: 03/31/21 06:13 03/31/21 06:13 Other Labs: Lab Results x24hrs 03/31/21 03/31/21 Range/Units 06:13 06:13 WBC 5.2 (4.8-10.8) x10^3/uL RBC 3.66 L (4.20-5.40) 10^6/uL Hgb 10.4 L (12.0-16.0) g/dL Hct 34.2 L (37.0-47.0) % MCV 93.4 (81.0-99.0) fL MCH 28.4 (27.0-31.0) pg MCHC 30.4 L (32.0-36.0) g/dL RDW 17.3 H (12.0-15.0) % Plt Count 284 (130-450) 10^3/uL MPV 10.4 (7.9-10.8) fL Neut # (Auto) 3.0 (1.5-6.6) 10^3/uL Lymph # (Auto) 1.2 L (1.5-3.5) 10^3/uL Hardy # (Auto) 0.6 (0.0-1.0) 10^3/uL Eos # (Auto) 0.4 (0.0-0.7) 10^3/uL Baso # (Auto) 0.0 (0.0-0.1) 10^3/uL Absolute Nucleated RBC 0.00 x10^3/uL Nucleated RBC % 0.0 /100WBC Sodium 144 (135-145) mmol/L Potassium 5.0 (3.5-5.0) mmol/L Chloride 110 (101-111) mmol/L Carbon Dioxide 24 (21-32) mmol/L Anion Gap 10.0 (6-13) BUN 25 H (6-20) mg/dL Creatinine 2.1 H (0.4-1.0) mg/dL Estimated GFR (MDRD) 23 L (>89) Glucose 74 (70-100) mg/dL Calcium 9.3 (8.5-10.3) mg/dL ABX Reporting Has patient been on IV antibiotics over the past 48 hours?: No Sepsis Event Note (H) - Evaluation Current Stage of Sepsis: Ruled out Assessment/Plan - Problem List (1) Altered mental status Impression: Resolved. Pt was alert and oriented this morning, no signs of altered mental status on my assessment. Completed antibiotic treatment for infection and continues to show mild evidence of [place] toxicity with bilateral foot twitching. Will continue to monitor. No signs of anxiety or agitation. -Continue home meds Qualifiers: Altered mental status type: somnolence Qualified Code(s): R40.0 - Somnolence (2) [place] toxicity Impression: Stable. On admission her [place] level in the ED was 1.37 and she was exhibiting signs of full body twitching, indicative of mild toxicity. Nursing notes indicate her reported she is taking [place] for bipolar disorder treatment, however it is unclear where she is getting the prescription. She was given IVF. She continues to exhibit mild lower body/bilateral foot twitching at this time but this is improved from yesterday and not as noticeable. Qualifiers: Encounter type: initial encounter (3) Chronic kidney disease (CKD) Impression: Stable. Creatine 2.1 today (2.0<-- 1.9 <--2.2 <--2.5). She is no longer receiving maintenance IVF, continue to encourage oral hydration. Slightly elevated over the last 2 days, will encourage oral hydration but if it continues to increase may consider replacing IVF. No physical signs of dehydration, she has moist mucus membranes. -Daily BMP -Encourage hydration Qualifiers: Chronic kidney disease stage: unspecified stage Qualified Code(s): N18.9 - Chronic kidney disease, unspecified (4) UTI (urinary tract infection) Impression: Resolved. Urine is clear. Completed treatment with antibiotics for E. Fecaelis in her urine. Qualifiers: Urinary tract infection type: catheter-associated UTI Indwelling urinary catheter type: indwelling urethral catheter Encounter type: initial encounter Qualified Code(s): T83.511A - Infection and inflammatory reaction due to indwelling urethral catheter, initial encounter; N39.0 - Urinary tract infection, site not specified (5) Dehydration Impression: Stable, she has moist mucus membranes and does not appear dry. Creatinine slightly elevated over the last 2 days but stable, will continue to encourage her oral intake. -Encourage oral hydration (6) Weakness Impression: Stable, appears slightly stronger today on my exam this morning. Has been work ing with PT. Per PT notes she performed limited ambulation with a FWW and CGA and tolerated the activities well. Recommendations are for DC to SNF for continued strengthening and improved safety and independence with ADLs. -Out of bed as tolerated (7) Chronic pain syndrome Impression: Stable. Intermittently reporting back and neck pain, repositioning somewhat helped in getting her more comfortable. Will continue to hold opiates given her hx of opiate abuse and no opiates on her home medication list. Continue suboxone. -Continue Suboxone (8) Incontinence associated dermatitis Impression: Pt found to have blanching red skin breakdown last evening. Today there are scattered open areas of denudement and appear to be friction wounds. The breakdown is diffuse and not centrally located over a bony prominence. It is not currently a pressure injury but she is at risk for a pressure injury and was encouraged to continue to turn regularly, every 2 hours, in bed. She has been wearing a diaper for intermittent stool incontinence. She tries to get up to the bathroom but is not always successful and the current skin breakdown is consistent with moisture/incontinence associated breakdown. It is not painful. Nursing has been applying barrier cream. This should be continued. If the area appears to worsen or develops into a pressure injury will place a wound care consult. -Q2H turns and frequent repositioning if up into a chair -Barrier cream BID and PRN soiling/saturated to buttocks -Wound Care consult if the area worsens
[2021-03-31] MEDS: PRENATAL VITAMIN TABLET PO SCH (18:27)
[2021-03-31] MEDS: GABAPENTIN 100 MG CAPSULE PO SCH (21:23)
[2021-03-31] MEDS: risperiDONE 1 MG TABLET PO SCH (21:23)
[2021-04-01] MEDS: SODIUM CHLORIDE FLUSH 0.9% 10 ML SYRINGE IVP SCH ×3 (02:10→17:08)
[2021-04-01 06:23] LABS: BASOPHILS % (AUTO) 0.9 %; EOSINOPHILS # (AUTO) 0.4 10^3/uL (0.0-0.7); EOSINOPHILS % (AUTO) 8.1 %; HCT - HEMATOCRIT 30.7 % (37.0-47.0); HGB - HEMOGLOBIN 9.3 g/dL (12.0-16.0); LYMPHOCYTES # (AUTO) 1.1 10^3/uL (1.5-3.5); LYMPHOCYTES % (AUTO) 24.9 %; MEAN CORPUSCULAR HEMOGLOBIN 28.5 pg (27.0-31.0); MEAN CORPUSCULAR HGB CONC 30.3 g/dL (32.0-36.0); MEAN CORPUSCULAR VOLUME 94.2 fL (81.0-99.0); MEAN PLATELET VOLUME 10.4 fL (7.9-10.8); MONOCYTES # (AUTO) 0.5 10^3/uL (0.0-1.0); MONOCYTES % (AUTO) 11.2 %; NEUTROPHILS # (AUTO) 2.4 10^3/uL (1.5-6.6); NEUTROPHILS % (AUTO) 54.5 %; PLT - PLATELET COUNT 283 10^3/uL (130-450); RED BLOOD COUNT 3.26 10^6/uL (4.20-5.40); RED CELL DISTRIBUTION WIDTH 17.4 % (12.0-15.0); WHITE BLOOD COUNT 4.5 x10^3/uL (4.8-10.8)
[2021-04-01 06:32] LABS: CALCIUM 9.3 mg/dL (8.5-10.3); CREATININE 2.1 mg/dL (0.4-1.0); POTASSIUM 4.8 mmol/L (3.5-5.0)
[2021-04-01] MEDS: LEVOTHYROXINE 25 MCG TABLET PO SCH (06:40)
[2021-04-01] MEDS: PANTOPRAZOLE 40 MG TABLET PO SCH (06:41)
[2021-04-01] MEDS: PROPRANOLOL 10 MG TABLET PO SCH ×3 (06:46→22:09)
[2021-04-01] MEDS: VENLAFAXINE 37.5 MG TABLET PO SCH ×2 (08:05→22:09)
[2021-04-01] MEDS: ENOXAPARIN 30 MG/0.3 ML SYRINGE SUBQ SCH (08:06)
[2021-04-01] MEDS: DOCUSATE SODIUM 250 MG CAPSULE PO SCH (08:06)
[2021-04-01] MEDS: SENNA 8.6 MG TABLET PO SCH (08:06)
[2021-04-01] MEDS: SACCHAROMYCES BOULARDII 250 MG CAPSULE PO SCH ×2 (08:06→17:07)
[2021-04-01] MEDS: ASPIRIN EC 81 MG TABLET PO SCH (08:06)
[2021-04-01] MEDS: polyethylene glycoL 3350 17 GM PACKET PO SCH (08:06)
[2021-04-01] MEDS: gemfibroziL 600 MG TABLET PO SCH ×2 (08:06→22:09)
--- NOTE | 2021-04-01 11:01 | PROVIDER PROGRESS NOTE ---
Assessment/Plan - Problem List (1) Altered mental status Qualifiers: Altered mental status type: somnolence Qualified Code(s): R40.0 - Somnolence Assessment/Plan: Resolved. Pt was alert and oriented at this morning, there is no signs of altered mental status. (2) [place] toxicity Impression: Stable. pt does report to me she did take [place] at home. I discuss with her on today, she was advised to hold [place] on the past admission, she should not take any more. she verbally understood now and she will not take any more at her home. On admission her [place] level in the ED was 1.37 and she was exhibiting signs of full body twitching, indicative of mild toxicity. Nursing notes indicate her reported she is taking [place] for bipolar disorder treatment, however it is unclear where she is getting the prescription. She was given IVF. She continues to exhibit mild lower body/bilateral foot twitching at this time but this is improved from yesterday and not as noticeable. (3) Chronic kidney disease (CKD) Impression: Stable. Creatine 2.1 today as her baseline. -Daily BMP -Encourage hydration (4) UTI (urinary tract infection) Impression: Resolved. Urine is clear. pt Completed treatment with antibiotics for E. [place] in her urine. (5) Dehydration Impression: resolved, she has moist mucus membranes and does not appear dry. Creatinine slightly elevated over the last 2 days but stable, will continue to encourage her oral intake. -Encourage oral hydration (6) Weakness Impression: pt report she still has difficult to ambulation now. pt has been working with PT. Per PT notes she performed limited ambulation with a FWW and CGA and tolerated the activities well. Recommendations are for DC to SNF for continued strengthening and improved safety and independence with ADLs. consult with social media marketing manager for replacement to SNF -Out of bed as tolerated (7) Chronic pain syndrome Impression: Stable. Intermittently reporting back and neck pain, repositioning somewhat helped in getting her more comfortable. Will continue to hold opiates given her hx of opiate abuse and no opiates on her home medication list. Continue suboxone. -Continue Suboxone (8) Incontinence associated dermatitis Impression: stable, Pt found to have blanching red skin breakdown last evening. Today there are scattered open areas of denudement and appear to be friction wounds. The breakdown is diffuse and not centrally located over a bony prominence. It is not currently a pressure injury but she is at risk for a pressure injury and was encouraged to continue to turn regularly, every 2 hours, in bed. She has been wearing a diaper for intermittent stool incontinence. She tries to get up to the bathroom but is not always successful and the current skin breakdown is consistent with moisture/incontinence associated breakdown. It is not painful. Nursing has been applying barrier cream. This should be continued. If the area appears to worsen or develops into a pressure injury will place a wound care consult. order Q2H turns and frequent repositioning, out of bed safely -Barrier cream BID and PRN soiling/saturated to buttocks -Wound Care consult if the area worsens - Current Meds Current Meds: Current Medications Generic Name Dose Route Start Last Admin Trade Name Freq PRN Reason Stop Dose Admin Aspirin 81 mg 03/27/21 12:00 04/01/21 08:06 Aspirin Ec 81 Mg Tablet PO 81 mg DAILY JARETT Administration Buprenorphine HCl 2.5 tab 03/28/21 09:00 03/31/21 10:12 Buprenorphine/Naloxone 8-2 Mg Tab SL 1 tab DAILY JARETT Administration Docusate Sodium 250 - 500 mg 03/28/21 18:12 04/01/21 08:06 Docusate Sodium 250 Mg Capsule PO 500 mg DAILY JARETT Administration Enoxaparin Sodium 30 mg 03/27/21 09:00 04/01/21 08:06 Enoxaparin 30 Mg/0.3 Ml Syringe SUBQ 30 mg DAILY JARETT Administration Gabapentin 100 mg 03/28/21 21:00 03/31/21 21:23 Gabapentin 100 Mg Capsule PO 100 mg QPM JARETT Administration Gemfibrozil 600 mg 03/27/21 21:00 04/01/21 08:06 Gemfibrozil 600 Mg Tablet PO 600 mg BID JARETT Administration Ibuprofen 400 mg 03/26/21 23:03 03/31/21 05:37 Ibuprofen 400 Mg Tablet PO 400 mg Q4HR PRN Administration Pain 1 to 4 Levothyroxine Sodium 50 mcg 03/28/21 07:00 04/01/21 06:40 Levothyroxine 25 Mcg Tablet PO 50 mcg QDAC JARETT Administration Lorazepam 0.5 mg 03/28/21 07:53 03/29/21 16:27 Lorazepam 0.5 Mg Tablet PO 0.5 mg BID PRN Administration Anxiety Multi-Ingredient Ointment 1 applic 03/27/21 18:48 03/29/21 20:30 Zinc Oxide 20% Oint 30 Gm Tube TOP 1 applic PRN PRN Administration Skin Care Pantoprazole Sodium 40 mg 03/27/21 13:00 04/01/21 06:41 Pantoprazole 40 Mg Tablet PO 40 mg QDAC JARETT Administration Polyethylene Glycol 17 gm 03/30/21 09:00 04/01/21 08:06 Polyethylene Glycol 3350 17 Gm Packet PO 17 gm DAILY JARETT Administration Multivit/Folic Acid/Iron 1 tab 03/31/21 17:00 03/31/21 18:27 Vitamin Tablet PO 1 tab QDLUNCH JARETT Administration Propranolol HCl 10 mg 03/27/21 14:00 04/01/21 06:46 Propranolol 10 Mg Tablet PO 10 mg TID JARETT Administration Risperidone 1 mg 03/28/21 21:00 03/31/21 21:23 Risperidone 1 Mg Tablet PO 1 mg QPM JARETT Administration Saccharomyces Boulardii 250 mg 03/27/21 17:00 04/01/21 08:06 Saccharomyces Boulardii 250 Mg Capsule PO 250 mg BIDWM JARETT Administration Senna 8.6 - 17.2 mg 03/28/21 18:12 04/01/21 08:06 Senna 8.6 Mg Tablet PO 17.2 mg DAILY JARETT Administration Sodium Chloride 10 ml 03/27/21 01:00 04/01/21 08:06 Sodium Chloride Flush 0.9% 10 Ml Syringe IVP 10 ml 0100,0900,1700 JARETT Administration Venlafaxine HCl 75 mg 03/28/21 09:00 04/01/21 08:05 Venlafaxine 37.5 Mg Tablet PO 75 mg BID JARETT Administration - Lab Result Fish Bone Diagrams: 04/01/21 05:35 04/01/21 05:35 - Additional Planning My Orders: My Active Orders 04/02/21 05:00 BMP - BASIC METABOLIC PANEL [CHEM] DAILYLAB CBC - COMP BLD CT W/AUTO DIFF [HEME] DAILYLAB 04/03/21 05:00 BMP - BASIC METABOLIC PANEL [CHEM] DAILYLAB CBC - COMP BLD CT W/AUTO DIFF [HEME] DAILYLAB 04/04/21 05:00 BMP - BASIC METABOLIC PANEL [CHEM] DAILYLAB CBC - COMP BLD CT W/AUTO DIFF [HEME] DAILYLAB 04/05/21 05:00 BMP - BASIC METABOLIC PANEL [CHEM] DAILYLAB CBC - COMP BLD CT W/AUTO DIFF [HEME] DAILYLAB 04/06/21 05:00 BMP - BASIC METABOLIC PANEL [CHEM] DAILYLAB CBC - COMP BLD CT W/AUTO DIFF [HEME] DAILYLAB Subjective - Subjective Patient Reports: Feeling Better Objective Vital Signs: Vital Signs - 24 hr 03/31/21 03/31/21 04/01/21 13:19 15:33 00:10 Temperature 36.9 C 36.4 C L Heart Rate [ 57 L 55 L 58 L Brachial] Respiratory 16 18 Rate Blood Pressure 118/55 L 136/53 H [Left Brachial artery] Blood Pressure 120/44 L [Right Brachial artery] O2 Saturation 99 95 04/01/21 07:56 Temperature 36.7 C Heart Rate [ 60 Brachial] Respiratory 18 Rate Blood Pressure [Left Brachial artery] Blood Pressure 109/59 L [Right Brachial artery] O2 Saturation 97 Oxygen O2 Source [Without Activity] Room air O2 Source Room air I&O (Last 24 Hrs): Intake and Output Totals x24h 03/30/21 03/31/21 04/01/21 23:59 23:59 23:59 Intake Total 1480 710 340 Output Total 1975 2120 0947 [facility] -[phone] General: Alert, Cooperative, No acute distress HEENT: Atraumatic, Mucous membr. moist/pink Neck: Supple Lymphatic: no adenopathy Neuro: Alert, Non Focal, Oriented Times 3 Cardiovascular: Regular rate, Normal S1, Normal S2 Respiratory: Chest non-tender, No respiratory distress Abdomen: Normal bowel sounds, Soft Extremities: Normal pulses - Results Results: Laboratory Results WBC 4.5 x10^3/uL (4.8-10.8) L 04/01/21 05:35 RBC 3.26 10^6/uL (4.20-5.40) L 04/01/21 05:35 Hgb 9.3 g/dL (12.0-16.0) L 04/01/21 05:35 Hct 30.7 % (37.0-47.0) L 04/01/21 05:35 MCV 94.2 fL (81.0-99.0) 04/01/21 05:35 MCH 28.5 pg (27.0-31.0) 04/01/21 05:35 MCHC 30.3 g/dL (32.0-36.0) L 04/01/21 05:35 RDW 17.4 % (12.0-15.0) H 04/01/21 05:35 Plt Count 283 10^3/uL (130-450) 04/01/21 05:35 MPV 10.4 fL (7.9-10.8) 04/01/21 05:35 Neut # (Auto) 2.4 10^3/uL (1.5-6.6) 04/01/21 05:35 Lymph # (Auto) 1.1 10^3/uL (1.5-3.5) L 04/01/21 05:35 [place] # (Auto) 0.5 10^3/uL (0.0-1.0) 04/01/21 05:35 Eos # (Auto) 0.4 10^3/uL (0.0-0.7) 04/01/21 05:35 Baso # (Auto) 0.0 10^3/uL (0.0-0.1) 04/01/21 05:35 Absolute Nucleated RBC 0.00 x10^3/uL 04/01/21 05:35 Nucleated RBC % 0.0 /100WBC 04/01/21 05:35 ESR 42 mm/Hr (0-30) H 03/26/21 18:45 Sodium 144 mmol/L (135-145) 04/01/21 05:35 Potassium 4.8 mmol/L (3.5-5.0) 04/01/21 05:35 Chloride 110 mmol/L (101-111) 04/01/21 05:35 Carbon Dioxide 23 mmol/L (21-32) 04/01/21 05:35 Anion Gap 11.0 (6-13) 04/01/21 05:35 BUN 28 mg/dL (6-20) H 04/01/21 05:35 Creatinine 2.1 mg/dL (0.4-1.0) H 04/01/21 05:35 Estimated GFR (MDRD) 23 (>89) L 04/01/21 05:35 Glucose 72 mg/dL (70-100) 04/01/21 05:35 Estimat Average Glucose 117 mg/dL (70-100) H 03/27/21 05:27 Hemoglobin A1c % 5.7 % (4.27-6.07) 03/27/21 05:27 Lactic Acid 1.7 mmol/L (0.5-2.2) 03/27/21 09:05 Calcium 9.3 mg/dL (8.5-10.3) 04/01/21 05:35 Magnesium 2.5 mg/dL (1.7-2.8) 03/26/21 18:45 Total Bilirubin 0.6 mg/dL (0.2-1.0) 03/26/21 18:45 AST 15 IU/L (10-42) 03/26/21 18:45 ALT 10 IU/L (10-60) 03/26/21 18:45 Alkaline Phosphatase 156 IU/L (42-121) H 03/26/21 18:45 Ammonia 34.2 umol/L (7-35) 03/27/21 05:27 Total Creatine Kinase 152 IU/L (22-269) 03/26/21 18:45 B-Natriuretic Peptide 32 pg/mL (5-100) 03/26/21 18:45 Total Protein 7.1 g/dL (6.7-8.2) 03/26/21 18:45 Albumin 3.2 g/dL (3.2-5.5) 03/26/21 18:45 Globulin 3.9 g/dL (2.1-4.2) 03/26/21 18:45 Albumin/Globulin Ratio 0.8 (1.0-2.2) L 03/26/21 18:45 Lipase 35 U/L (22-51) 03/26/21 18:45 TSH 3.22 uIU/mL (0.34-5.60) 03/26/21 18:45 Urine Color STRAW 03/26/21 18:40 Urine Clarity HAZY (CLEAR) 03/26/21 18:40 Urine pH 5.5 PH (5.0-7.5) 03/26/21 18:40 Ur Specific [place] <=1.005 (1.002-1.030) 03/26/21 18:40 Urine Protein NEGATIVE mg/dL (NEGATIVE) 03/26/21 18:40 Urine Glucose (UA) NEGATIVE mg/dL (NEGATIVE) 03/26/21 18:40 Urine Ketones NEGATIVE mg/dL (NEGATIVE) 03/26/21 18:40 Urine Occult Blood SMALL (NEGATIVE) H 03/26/21 18:40 Urine Nitrite NEGATIVE (NEGATIVE) 03/26/21 18:40 Urine Bilirubin NEGATIVE (NEGATIVE) 03/26/21 18:40 Urine Urobilinogen 0.2 (NORMAL) E.U./dL (NORMAL) 03/26/21 18:40 Ur Leukocyte Esterase LARGE (NEGATIVE) H 03/26/21 18:40 Urine RBC 6-10 /HPF (0-5) H 03/26/21 18:40 Urine WBC >25 /HPF (0-5) H 03/26/21 18:40 Ur Squamous Epith Cells FEW Squamous (<= Few) 03/26/21 18:40 Urine Bacteria Few /HPF (None Seen) 03/26/21 18:40 Urine Yeast PRESENT 03/26/21 18:40 Ur Microscopic Review INDICATED 03/26/21 18:40 Urine Culture Comments INDICATED 03/26/21 18:40 Nasal Adenovirus (PCR) NOT DETECTED 03/26/21 22:40 Nasal B. parapertussis DNA (PCR) NOT DETECTED 03/26/21 22:40 Nasal Coronavir 229E PCR NOT DETECTED 03/26/21 22:40 Nasal Coronavir HKU1 PCR NOT DETECTED 03/26/21 22:40 Nasal Coronavir NL63 PCR NOT DETECTED 03/26/21 22:40 Nasal Coronavir OC43 PCR NOT DETECTED 03/26/21 22:40 Nasal Enterovir/Rhinovir PCR NOT DETECTED 03/26/21 22:40 Nasal Influenza B PCR NOT DETECTED 03/26/21 22:40 Nasal Influenza A PCR NOT DETECTED 03/26/21 22:40 Nasal Parainfluen 1 PCR NOT DETECTED 03/26/21 22:40 Nasal Parainfluen 2 PCR NOT DETECTED 03/26/21 22:40 Nasal Parainfluen 3 PCR NOT DETECTED 03/26/21 22:40 Nasal Parainfluen 4 PCR NOT DETECTED 03/26/21 22:40 Nasal RSV (PCR) NOT DETECTED 03/26/21 22:40 Nasal B.pertussis DNA PCR NOT DETECTED 03/26/21 22:40 Nasal C.pneumoniae (PCR) NOT DETECTED 03/26/21 22:40 [place] Human Metapneumo PCR NOT DETECTED 03/26/21 22:40 Nasal M.pneumoniae (PCR) NOT DETECTED 1124/21 22:40 Nasal SARS-CoV-2 (PCR) NOT DETECTED 03/26/21 22:40 Last Dose Date Not Reportable 03/26/21 18:45 Last Dose Time Not Reportable 03/26/21 18:45 Urine Opiates Screen NEGATIVE (NEGATIVE) 03/26/21 21:30 Ur Oxycodone Screen NEGATIVE (NEGATIVE) 03/26/21 21:30 Urine Methadone Screen NEGATIVE (NEGATIVE) 03/26/21 21:30 Ur Propoxyphene Screen NEGATIVE (NEGATIVE) 03/26/21 21:30 Ur Barbiturates Screen NEGATIVE (NEGATIVE) 03/26/21 21:30 Ur Tricyclics Screen NEGATIVE (NEGATIVE) 03/26/21 21:30 Ur Phencyclidine Scrn NEGATIVE (NEGATIVE) 03/26/21 21:30 Ur Amphetamine Screen NEGATIVE (NEGATIVE) 03/26/21 21:30 U Methamphetamines Scrn NEGATIVE (NEGATIVE) 03/26/21 21:30 U Benzodiazepines Scrn NEGATIVE (NEGATIVE) 03/26/21 21:30 [place] 1.37 mmol/L 03/26/21 18:45 Urine Cocaine Screen NEGATIVE (NEGATIVE) 03/26/21 21:30 U Cannabinoids Screen NEGATIVE (NEGATIVE) 03/26/21 21:30 Ethyl Alcohol < 5.0 mg/dL 03/26/21 18:45 - Procedures Procedures: Procedures COLONOSCOPY (01/09/13) DRAINAGE OF BLADDER WITH DRAINAGE DEVICE, VIA OPENING (11/25/19) Sepsis Event Note (H) - Evaluation Current Stage of Sepsis: Ruled out ABX Reporting Has patient been on IV antibiotics over the past 48 hours?: No Current Medications - Current Medications Current Medications: Active Medications Aspirin (Aspirin Ec 81 Mg Tablet) 81 mg PO DAILY [facility] Last Admin: 04/01/21 08:06 Dose: 81 mg Documented by: Buprenorphine HCl (Buprenorphine/Naloxone 8-2 Mg Tab) 2.5 tab SL DAILY [facility] Last Admin: 04/01/21 11:04 Dose: 1 tab Documented by: Docusate Sodium (Docusate Sodium 250 Mg Capsule) 250 - 500 mg PO DAILY [facility] Last Admin: 04/01/21 08:06 Dose: 500 mg Documented by: Enoxaparin Sodium (Enoxaparin 30 Mg/0.3 Ml Syringe) 30 mg SUBQ DAILY [facility] Last Admin: 04/01/21 08:06 Dose: 30 mg Documented by: Gabapentin (Gabapentin 100 Mg Capsule) 100 mg PO QPM [facility] Last Admin: 03/31/21 21:23 Dose: 100 mg Documented by: Gemfibrozil (Gemfibrozil 600 Mg Tablet) 600 mg PO BID [facility] Last Admin: 04/01/21 08:06 Dose: 600 mg Documented by: Ibuprofen (Ibuprofen 400 Mg Tablet) 400 mg PO Q4HR PRN PRN Reason: Pain 1 to 4 Last Admin: 03/31/21 05:37 Dose: 400 mg Documented by: Levothyroxine Sodium (Levothyroxine 25 Mcg Tablet) 50 mcg PO QDAC [facility] Last Admin: 04/01/21 06:40 Dose: 50 mcg Documented by: Lorazepam (Lorazepam 0.5 Mg Tablet) 0.5 mg PO BID PRN PRN Reason: Anxiety Last Admin: 03/29/21 16:27 Dose: 0.5 mg Documented by: Multi-Ingredient Ointment (Zinc Oxide 20% Oint 30 Gm Tube) 1 applic TOP PRN PRN PRN Reason: Skin Care Last Admin: 03/29/21 20:30 Dose: 1 applic Documented by: Ondansetron HCl (Ondansetron Odt 4 Mg Tablet) 4 mg TL Q6HR PRN PRN Reason: Nausea / Vomiting Ondansetron HCl (Ondansetron 4 Mg/2 Ml Vial) 4 mg IVP Q6HR PRN PRN Reason: Nausea / Vomiting Pantoprazole Sodium (Pantoprazole 40 Mg Tablet) 40 mg PO QDAC [facility] Last Admin: 04/01/21 06:41 Dose: 40 mg Documented by: Polyethylene Glycol (Polyethylene Glycol 3350 17 Gm Packet) 17 gm PO DAILY [facility] Last Admin: 04/01/21 08:06 Dose: 17 gm Documented by: Multivit/Folic Acid/Iron ( Vitamin Tablet) 1 tab PO QDLUNCH [facility] Last Admin: 03/31/21 18:27 Dose: 1 tab Documented by: Propranolol HCl (Propranolol 10 Mg Tablet) 10 mg PO TID [facility] Last Admin: 04/01/21 06:46 Dose: 10 mg Documented by: Risperidone (Risperidone 1 Mg Tablet) 1 mg PO QPM [facility] Last Admin: 03/31/21 21:23 Dose: 1 mg Documented by: Saccharomyces Boulardii (Saccharomyces Boulardii 250 Mg Capsule) 250 mg PO BIDWM [facility] Last Admin: 04/01/21 08:06 Dose: 250 mg Documented by: Senna (Senna 8.6 Mg Tablet) 8.6 - 17.2 mg PO DAILY [facility] Last Admin: 04/01/21 08:06 Dose: 17.2 mg Documented by: Sodium Chloride (Sodium Chloride Flush 0.9% 10 Ml Syringe) 10 ml IVP PRN PRN PRN Reason: NEEDED PER PROVIDER ORDERS Sodium Chloride (Sodium Chloride Flush 0.9% 10 Ml Syringe) 10 ml IVP 0100,0900,1700 [facility] Last Admin: 04/01/21 08:06 Dose: 10 ml Documented by: Venlafaxine HCl (Venlafaxine 37.5 Mg Tablet) 75 mg PO BID [facility] Last Admin: 04/01/21 08:05 Dose: 75 mg Documented by: Cholecalciferol [Vitamin D3] 25 mcg PO DAILY 08/15/20 Gabapentin [Neurontin] 100 mg PO QPM 08/15/20 Aspirin [Aspirin EC] 81 mg PO DAILY 12/27/20 Furosemide [Lasix] 20 mg PO DAILY 03/05/21 LORazepam [Ativan] 0.5 mg PO BID PRN 03/05/21 Omeprazole Magnesium 20 mg PO DAILY 03/05/21 Propranolol [Inderal] 10 mg PO TID 03/05/21 Venlafaxine HCl 75 mg PO BID 03/05/21 Buprenorphine HCl/Naloxone HCl [Suboxone 8-2 mg Tab] 2.5 tab SL DAILY 03/27/21
[2021-04-01] MEDS: BUPRENORPHINE/NALOXONE 8-2 MG TAB SL SCH (11:04)
[2021-04-01] MEDS: PRENATAL VITAMIN TABLET PO SCH (11:52)
[2021-04-01] MEDS: IBUPROFEN 400 MG TABLET PO PRN (14:01)
[2021-04-01] MEDS: ZINC OXIDE 20% OINT 30 GM TUBE TOP PRN ×2 (14:01→22:10)
[2021-04-01] MEDS ORDERED: MAGNESIUM HYDROXIDE 2,400 MG/30 ML UDC PO ONE (14:39)
[2021-04-01] MEDS ORDERED: BISACODYL 10 MG SUPP PR ONE (17:21)
[2021-04-01] MEDS: risperiDONE 1 MG TABLET PO SCH (22:09)
[2021-04-01] MEDS: GABAPENTIN 100 MG CAPSULE PO SCH (22:10)
[2021-04-02] MEDS: SODIUM CHLORIDE FLUSH 0.9% 10 ML SYRINGE IVP SCH ×2 (01:21→09:10)
[2021-04-02] MEDS: PROPRANOLOL 10 MG TABLET PO SCH (05:51)
[2021-04-02] MEDS: PANTOPRAZOLE 40 MG TABLET PO SCH (06:40)
[2021-04-02] MEDS: LEVOTHYROXINE 25 MCG TABLET PO SCH (06:40)
[2021-04-02] MEDS: SACCHAROMYCES BOULARDII 250 MG CAPSULE PO SCH (07:41)
[2021-04-02 08:17] LABS: CREATININE 2.2 mg/dL (0.4-1.0); POTASSIUM 5.6 mmol/L (3.5-5.0)
[2021-04-02] MEDS ORDERED: SODIUM POLYSTYRENE SULFONATE 15 GM/60 ML BOTTLE PO ONE (08:23)
[2021-04-02 08:39] LABS: BASOPHILS # (AUTO) 0.1 10^3/uL (0.0-0.1); BASOPHILS % (AUTO) 0.4 %; EOSINOPHILS # (AUTO) 0.3 10^3/uL (0.0-0.7); EOSINOPHILS % (AUTO) 2.1 %; HCT - HEMATOCRIT 36.7 % (37.0-47.0); HGB - HEMOGLOBIN 11.1 g/dL (12.0-16.0); LYMPHOCYTES # (AUTO) 0.6 10^3/uL (1.5-3.5); LYMPHOCYTES % (AUTO) 4.4 %; MEAN CORPUSCULAR HEMOGLOBIN 28.5 pg (27.0-31.0); MEAN CORPUSCULAR HGB CONC 30.2 g/dL (32.0-36.0); MEAN CORPUSCULAR VOLUME 94.1 fL (81.0-99.0); MEAN PLATELET VOLUME 10.5 fL (7.9-10.8); MONOCYTES # (AUTO) 0.8 10^3/uL (0.0-1.0); MONOCYTES % (AUTO) 5.8 %; NEUTROPHILS # (AUTO) 11.9 10^3/uL (1.5-6.6); NEUTROPHILS % (AUTO) 86.9 %; PLT - PLATELET COUNT 333 10^3/uL (130-450); RED CELL DISTRIBUTION WIDTH 17.8 % (12.0-15.0); WHITE BLOOD COUNT 13.7 x10^3/uL (4.8-10.8)
[2021-04-02] MEDS: BUPRENORPHINE/NALOXONE 8-2 MG TAB SL SCH (08:55)
[2021-04-02] MEDS: SENNA 8.6 MG TABLET PO SCH (08:56)
[2021-04-02] MEDS: VENLAFAXINE 37.5 MG TABLET PO SCH (08:56)
[2021-04-02] MEDS: DOCUSATE SODIUM 250 MG CAPSULE PO SCH (08:56)
[2021-04-02] MEDS: gemfibroziL 600 MG TABLET PO SCH (08:57)
[2021-04-02] MEDS: ASPIRIN EC 81 MG TABLET PO SCH (08:57)
[2021-04-02] MEDS: ENOXAPARIN 30 MG/0.3 ML SYRINGE SUBQ SCH (08:57)
[2021-04-02] MEDS: polyethylene glycoL 3350 17 GM PACKET PO SCH (08:57)
[2021-04-02] MEDS ORDERED: SODIUM CHLORIDE 0.9% 1,000 ML IV SCH (09:00)
[2021-04-02 09:30] VITALS: BP 116/66
[2021-04-02 09:41] LABS: BILIRUBIN,URINE NEGATIVE (NEGATIVE); GLUCOSE, URINE (UA) NEGATIVE (NEGATIVE); KETONES,URINE (UA) NEGATIVE (NEGATIVE); LEUKOCYTE ESTERASE, URINE LARGE (NEGATIVE); NITRITE,URINE NEGATIVE (NEGATIVE); OCCULT BLOOD,URINE TRACE-INTA (NEGATIVE); PROTEIN,URINE NEGATIVE (NEGATIVE); UROBILINOGEN,URINE 0.2 (NORMAL) E.U./dL (NORMAL)
[2021-04-02 09:54] LABS: CLARITY,URINE CLOUDY (CLEAR); RBC,URINE None Seen /HPF (0-5); WBC,URINE >25 /HPF (0-5)
[2021-04-02 09:55] LABS: BACTERIA,URINE None Seen /HPF (None Seen); SQUAMOUS EPITHELIAL CELL,UR RARE Squamous (<= Few); YEAST,URINE PRESENT
[2021-04-02] MEDS ORDERED: CIPROFLOXACIN 250 MG TABLET PO SCH (11:00)
[2021-04-02] MEDS: PRENATAL VITAMIN TABLET PO SCH (11:40)
[2021-04-02 11:51] LABS: B. PARAPERTUSSIS- RESP PCR PAN NOT DETECTED; B. PERTUSSIS- RESP PCR PANEL NOT DETECTED; C. PNEUMONIAE- RESP PCR PANEL NOT DETECTED; CORONAVIRUS 229E-RESP PCR NOT DETECTED; CORONAVIRUS HKU1-RESP PCR NOT DETECTED; CORONAVIRUS NL63-RESP PCR NOT DETECTED; CORONAVIRUS OC43-RESP PCR NOT DETECTED; HUMAN METAPNEUMOVIRUS NOT DETECTED; INFLUENZA A- RESP PCR PANEL NOT DETECTED; INFLUENZA B - RESP PCR PANEL NOT DETECTED; M. PNEUMONIAE- RESP PCR PANEL NOT DETECTED; PARAINFLUENZA VIRUS 1 NOT DETECTED; PARAINFLUENZA VIRUS 2 NOT DETECTED; PARAINFLUENZA VIRUS 3 NOT DETECTED; PARAINFLUENZA VIRUS 4 NOT DETECTED; RHINOVIRUS/ENTEROVIRUS NOT DETECTED; RSV- RESP PCR PANEL NOT DETECTED; SARS-CoV-2 -RESP PCR PANEL NOT DETECTED
[2021-04-02 12:27] LABS: CALCIUM 9.5 mg/dL (8.5-10.3); CREATININE 2.2 mg/dL (0.4-1.0)
--- NOTE | 2021-04-02 12:58 | Discharge Plan ---
"Discharge Plan for SNF / [facility] - Discharge Plan And Transition Orders Problem Reviewed?: Yes Disposition: 03 SNF DC/Xfer Condition: Stable Allergies and Adverse Reactions: Allergies Allergy/AdvReac Type Severity Reaction Status Date / Time NSAIDS (Non-Steroidal Allergy Mild Hives Verified 12/30/20 16:59 Anti-Inflamma acetaminophen Allergy Hives Verified 12/30/20 16:59 green pepper Allergy Unknown Verified 03/26/21 18:36 lisinopril Allergy Unknown Verified 12/30/20 16:59 Sulfa (Sulfonamide AdvReac Mild Rash Verified 12/30/20 16:59 Antibiotics) Health Concerns: dehydration/CKD, UTI and indwelling urinary catheter, medical non-compliant, weakness Plan of Treatment: 1, Keep hydration for pt, recheck CBC/BMP in one week or early as needed. 2, pt has chronic urinary indwelling catheter, continue catheter care, pt may followup with urologist as out-pt. pt is prescribed Cipro to treat her UTI. 3, pt's lithium was hold at the previous discharge, but pt continue to take it at home. Advise pt hold [place] and do not take any more lithium. pt may followup with her PCP, and psychiatrist as out-pt. 4, pt may continue PT/OT at SNF for enhancing her strength. Care Goals: Stabilization and improvement of her medical conditions Assessment: Discussed the care plan with the patient, answered her questions, and she understand - SNF / SKILLED NURSING Transition Orders Admit to (Facility): [facility] Under the care of (Name): Medical provide of [facility] Discharge Diagnosis: AMS, lithium toxicity, CKD, Chronic Indwelling urinary catheter, UTI, dehydration, weakness, chronic pain syndrome, Medical noncompliance. Medicare Certification Statement: I certify that [facility] nursing home care is medically necessary on a continuing basis for any of the conditions for which she/he is receiving care during hospitalization. Notify PCP of admission and forward orders to primary provider for signature. Weight on admission and: Weekly Call PCP immediately if weight increases by: 2 kg Other Notification Orders: Call PCP immediately if patient develops dyspnea, chest pain/tightness or edema. House Bowel Program: Yes Additional Bowel Program Orders: If no BM after 2 days, nurse may give M.O.M. 30ml PO PRN and/or ducolax Supp 1 SC and/or TERRA 250mg P.O., and/or senna 1-2 tabs PO. On day 3 nurse may give repeat above order until residents constipation is resolved. Annual Influenza Vaccine (between Jan 01 and July 31): Yes Two-step PPD per [facility] [phone] or approved exception documents: Yes Treatments & Other Orders: 1, Keep hydration for pt, recheck CBC/BMP in one week or early as needed. 2, pt has chronic urinary indwelling catheter, continue catheter care, pt may followup with urologist as out-pt. pt is prescribed Cipro to treat her UTI. 3, pt's lithium was hold at the previous discharge, but pt continue to take it at home. Advise pt hold [place] and do not take any more lithium. pt may followup with her PCP, and psychiatrist as out-pt. 4, pt may continue PT/OT at SNF for enhancing her strength. Medication Orders: PLEASE REFER TO THE DISCHARGE MEDICATION LIST. Insulin Orders?: No - Medications New Prescriptions: Ciprofloxacin [Cipro] 250 mg PO BID #10 tablet Saccharomyces Boulardii [Florastor] 250 mg PO BIDWM #10 cap - Diet Type: Geriatric Texture: Regular Liquids: Thin May have monthly special meal: Yes - Therapies | Activity Therapy: Evaluation | Treat if indicated: PT, OT Rehabilitation Potential: Maximize functional status Activity: Activity as Tolerated"
--- NOTE | 2021-04-02 13:14 | DISCHARGE SUMMARY ---
Discharge Summary Admit Date: 03/26/21 Discharge Date: 04/02/21 Discharging Provider: Dalton Motta Primary Care Provider: Hilaria Rodriguez Condition at Discharge: Stable Discharge Disposition: SNF DC/Xfer Discharge Facility Name: [facility] - DIAGNOSES Discharge Diagnoses with Status of Each Condition: (1) Altered mental status resolved. pt's mental status return to her baseline. she is alert and oriented plus 3. 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 On admission her Cl[place]dale level in the ED was 1.37 which is over therapeutic arrange. clearly advise pt, she should NOT take any more [place]. (3) Chronic kidney disease (CKD) stable. advise pt keep hydration at home, followup with theatre instructor as out-pt. pt had once hyperkalemia potassium at 5.6 at morning BMP test. pt was given once kayexalate, then her potassium became normal arrange. keep hydration and recheck BMP in three days. (4) UTI (urinary tract infection) pt is prescribed Cipro to finish the treatment course. recheck UA show positive Esterase and elevated WBC, and elevated WBC in CBC test. pt has chronic indwelling urinary catheter, she is easy to have infection and colonization of bacteria. (5) Dehydration resolved. advise pt keep hydration (6) Weakness improved. pt had PT/OT Evaluation and treatment, patient was recommended to discharge to SNF. (7) Chronic pain syndrome stable, Continue home meds Suboxone (8) chronic indwelling urinary catheter pt has hx of chronic indwelling urinary catheter, continue catheter care and followup with urologist as out-pt (9) medical noncompliance pt has hx of this medical problem in the previous admission. At this time, she took [place] which was not supposed to taking. pt is d/c to SNF now, pt may need moth exterminator care, referral to her caser up and her PCP (10) hyperkalemia pt had once hyperkalemia potassium at 5.6 at morning BMP test. pt was given once kayexalate and IVF for hydration, then her potassium became normal arrange. keep hydration and recheck BMP in three days. (11)bipolar stable, pt may followup with her PCP and psychiatrist as out-pt. - HPI History of Present Illness: refer from Ms. Styles's HPI on 03/26/21 Patient presents with bilateral leg weakness that has been going on the last few days, so much that it resorted to her "crawling on the ground". She has been seen in the ED in the past for similar episodes but this one is by far the worst. She was last seen in the [facility] ED on 03/06/2021 for bilateral leg weakness and no cause was determined and she was discharged home. She has a history of opioid and benzodiazepine misuse and seeks care at a suboxone clinic. She also has a history of hoarding medications and her BERTO report did not list Cl[place]dale as a prescription yet she has an elevated Cl[place]dale level today in the ED. She received her COVID booster and flu shot a few days ago. She has extensive assistance at home for her activities of daily living and meals. - ALLERGIES Allergies/Adverse Reactions: Allergies Allergy/AdvReac Type Severity Reaction Status Date / Time NSAIDS (Non-Steroidal Allergy Mild Hives Verified 12/30/20 16:59 Anti-Inflamma acetaminophen Allergy Hives Verified 12/30/20 16:59 green pepper Allergy Unknown Verified 03/26/21 18:36 lisinopril Allergy Unknown Verified 12/30/20 16:59 Sulfa (Sulfonamide AdvReac Mild Rash Verified 12/30/20 16:59 Antibiotics) - MEDICATIONS Home Medications: Ambulatory Orders Medication Instructions Recorded Confirmed Levothyroxine Sodium 50 mcg PO QDAC #30 07/17/19 03/27/21 gemfibroziL [Gemfibrozil] 600 mg PO BID #60 07/17/19 03/27/21 risperiDONE [Risperdal] 1 mg PO QPM #30 07/17/19 03/27/21 Cholecalciferol [Vitamin D3] 25 mcg PO DAILY 08/15/20 03/27/21 Gabapentin [Neurontin] 100 mg PO QPM 08/15/20 03/27/21 Aspirin [Aspirin EC] 81 mg PO DAILY 12/27/20 03/27/21 Docusate Sodium 250Mg Capsule 250 - 500 mg PO DAILY 12/29/20 03/27/21 [Colace 250Mg Capsule] Furosemide [Lasix] 20 mg PO DAILY 03/05/21 03/27/21 LORazepam [Ativan] 0.5 mg PO BID PRN 03/05/21 03/27/21 Omeprazole Magnesium 20 mg PO DAILY 03/05/21 03/27/21 Propranolol [Inderal] 10 mg PO TID 03/05/21 03/27/21 Venlafaxine HCl 75 mg PO BID 03/05/21 03/27/21 Buprenorphine HCl/Naloxone HCl 2.5 tab SL DAILY 03/27/21 03/27/21 [Suboxone 8-2 mg Tab] Ciprofloxacin [Cipro] 250 mg PO BID #10 tablet 04/02/21 Saccharomyces Boulardii [Florastor] 250 mg PO BIDWM #10 cap 04/02/21 - PHYSICAL EXAM AT DISCHARGE General Appearance: positive: No acute distress, Alert. negative: Lethargic Eyes Bilateral: positive: Normal inspection, No lid inflammation ENT: positive: ENT inspection nml, No signs of dehydration. negative: Purulent nasal drainage Neck: positive: Nml inspection, Trachea midline. negative: Tracheal deviation Respiratory: positive: Chest non-tender, No respiratory distress. negative: Wheezes Cardiovascular: positive: Regular rate & rhythm. negative: Tachycardia, Bradycardia, Systolic murmur Peripheral Pulses: positive: 2+ Abdomen: positive: Non-tender, Nml bowel sounds, No distention. negative: Tenderness Back: positive: Nml inspection Skin: positive: Color nml, Warm, Dry. negative: Cyanosis Extremities: positive: Non-tender, Nml appearance Neurologic/Psychiatric: positive: Sensation nml. negative: Weakness, Sensory loss, Facial droop, Slurred/abnml speech - LABS Result Diagrams: 04/02/21 07:42 04/02/21 12:10 - SEPSIS Current Stage of Sepsis: Ruled out - FOLLOW UP Follow Up: 1, Keep hydration for pt, recheck CBC/BMP in three days. 2, pt has chronic urinary indwelling catheter, continue catheter care, pt may followup with urologist as out-pt. pt is prescribed Cipro to treat her UTI. 3, pt's lithium was hold at the previous discharge, but pt continue to take it at home. Advise pt hold Cl[place]dale and do not take any more lithium. pt may followup with her PCP, and psychiatrist as out-pt. 4, pt may continue PT/OT at SNF. - TIME SPENT Time Spent in Discharge (Minutes): 30
== END 2021-04-02 14:42 | DRG 699 ==
LOC: ED 17:59 → MS2 23:03 → OBSVTOIN 03-27 10:43
PROVIDERS: ADMIT Specialist; ATTEND Nurse Practitioner Gerontology
DX: R41.82 Altered mental status, unspecified (principal); T83.511A Infection and inflammatory reaction due to indwelling urethral catheter, initial encounter; L03.116 Cellulitis of left lower limb; T43.594A Poisoning by other antipsychotics and neuroleptics, undetermined, initial encounter; R40.0 Somnolence; R25.3 Fasciculation; N39.0 Urinary tract infection, site not specified; B95.2 Enterococcus as the cause of diseases classified elsewhere; Y73.1 Therapeutic (nonsurgical) and rehabilitative gastroenterology and urology devices associated with adverse incidents; E11.22 Type 2 diabetes mellitus with diabetic chronic kidney disease; N18.9 Chronic kidney disease, unspecified; I12.9 Hypertensive chronic kidney disease with stage 1 through stage 4 chronic kidney disease, or unspecified chronic kidney disease; E86.0 Dehydration; E87.5 Hyperkalemia; L98.411 Non-pressure chronic ulcer of buttock limited to breakdown of skin; R53.1 Weakness; Z91.14 Patient's other noncompliance with medication regimen; E11.649 Type 2 diabetes mellitus with hypoglycemia without coma; E11.42 Type 2 diabetes mellitus with diabetic polyneuropathy; R32 Unspecified urinary incontinence; R33.9 Retention of urine, unspecified; R15.9 Full incontinence of feces; K59.09 Other constipation; J44.9 Chronic obstructive pulmonary disease, unspecified; F17.210 Nicotine dependence, cigarettes, uncomplicated; Z20.822 Contact with and (suspected) exposure to COVID-19; F31.9 Bipolar disorder, unspecified; F41.9 Anxiety disorder, unspecified; K21.9 Gastro-esophageal reflux disease without esophagitis; E78.00 Pure hypercholesterolemia, unspecified; G89.29 Other chronic pain; G89.4 Chronic pain syndrome; Z87.440 Personal history of urinary (tract) infections; M54.2 Cervicalgia; M54.9 Dorsalgia, unspecified; M19.90 Unspecified osteoarthritis, unspecified site; Z74.09 Other reduced mobility; R01.1 Cardiac murmur, unspecified; Z79.82 Long term (current) use of aspirin; Z79.899 Other long term (current) drug therapy; Z86.718 Personal history of other venous thrombosis and embolism
CPT/HCPCS: 36415; 51702; 71045; 72131; 80048; 80053; 80178; 80306; 81001; 82140; 82550; 82947; 83036; 83605; 83690; 83735; 83880; 84443; 85025; 85651; 87040; 87077; 87086; 87181; 87631; 96361; 96374; 96375; 97116; 97162; 97165; 97530; 99284; 99285; A9270; G0378; G0480; J1170; J1650; J7120; 0202U; 80320; 81003

== ENCOUNTER 2021-07-06 10:19 | Outpatient (CLI) | payer MEDICARE, MEDICAID | END 2021-07-06 10:20 | disposition critical access hospital (66) | LOC: EMS 10:19 | DX: R41.0 Disorientation, unspecified (principal); R53.1 Weakness; M54.9 Dorsalgia, unspecified | CPT/HCPCS: A0425; A0429 ==

== ENCOUNTER 2021-07-06 10:52 | Inpatient (IN) | payer MEDICARE, MEDICAID ==
[2021-07-06] MEDS ORDERED: SODIUM CHLORIDE 0.9% 1,000 ML IV STA ×2 (11:04→13:32)
--- NOTE | 2021-07-06 11:40 | XRAY Report ---
PROCEDURE: Chest 1 View X-Ray INDICATIONS: chest pain TECHNIQUE: One view of the chest was acquired. COMPARISON: 03/27/2021 FINDINGS: Surgical changes and devices: None. Lungs and pleura: No pleural effusions or pneumothorax. Lungs are clear. Mediastinum: Mediastinal contours appear normal. Heart size is normal. Bones and chest wall: No suspicious bony lesions. Overlying soft tissues appear unremarkable. IMPRESSION: No evidence acute pulmonary process. Reviewed by: Roverto Atwood MD on 07/06/2021 10:39 AM [facility] Approved by: Roverto Atwood MD on 07/06/2021 10:39 AM [facility] Station ID: [id number]
--- NOTE | 2021-07-06 11:42 | CT Report ---
PROCEDURE: HEAD WO INDICATIONS: altered LOC TECHNIQUE: Noncontrast 4.5 mm thick angled axial sections acquired from the foramen magnum to the vertex. For r adiation dose reduction, the following was used: automated exposure control, adjustment of mA and/or kV according to patient size. COMPARISON: 12/30/2020. FINDINGS: Image quality: Excellent. CSF spaces: Basal cisterns are patent. No extra-axial fluid collections. Ventricles are normal in size and shape. Brain: No midline shift. No intracranial masses or hemorrhage. Cam-white matter interface is norm al. Age-related volume loss and moderate small vessel ischemic change. There are bilateral intracran ial internal carotid calcifications as well as left vertebral artery calcifications. Skull and face: Calvarium and visualized facial bones are intact, without suspicious lesions. Sinuses: Visualized sinuses and mastoids are clear. IMPRESSION: 1. Stable findings. Age-related volume loss and moderate small vessel ischemic change. 2. No evidence acute stroke, hemorrhage, or mass. Reviewed by: Roverto Atwood MD on 07/06/2021 10:41 AM [facility] Approved by: Roverto Atwood MD on 07/06/2021 10:41 AM [facility] Station ID: [id number]
--- NOTE | 2021-07-06 11:56 | ED Physician Documentation ---
PD HPI ALTERED MENTAL STATUS - Stated complaint Stated Complaint: GENERAL WEAKNESS - Chief complaint Chief Complaint: Neuro - History obtained from History obtained from: Family, EMS - History of Present Illness Timing - onset: Yesterday Timing - duration: Days (2) Timing - details: Gradual onset, Still present Quality / character: Less responsive, Confused, Disoriented, Agitated Associated symptoms: General weakness, Other (decreased oral intake) Basline status: Alert and oriented X 3, Bedbound Similar symptoms before: Diagnosis (UTI with confusion) Recently seen: Other - Additional information Additional information: 71-year-old female with a history of recurrent metabolic encephalopathy related to urinary tract infection has again become less interactive and has stopped eating and drinking. The patient is unable to provide any history. Her Edward Alberto is contacted by telephone [phone] and he indicates that Annika went to appointments and was doing well on Wednesday and Wednesday. She had a long appointment on Wednesday up in [place] regarding dentures. The following day she appeared confused and decreased the amount of oral intake and did not take her medications. Her indicates that he normally is placing her medications in her medication boxes with the exception of her Suboxone and that she has been taking them regularly until yesterday. Review of Systems Constitutional: reports: Fatigue. denies: Fever Ears: denies: Ear pain Nose: denies: Congestion Throat: denies: Sore throat Cardiac: denies: Chest pain / pressure Respiratory: denies: Dyspnea, Cough GI: denies: Abdominal Pain, Nausea, Vomiting, Diarrhea Skin: denies: Rash Musculoskeletal: reports: Back pain Neurologic: reports: Generalized weakness, Confused, Altered mental status. denies: Head injury PD PAST MEDICAL HISTORY - Past Medical History Cardiovascular: Hypertension, High cholesterol, Deep vein thrombosis, Murmur Respiratory: Asthma, COPD, Shortness of breath Neuro: Peripheral neuropathy Endocrine/Autoimmune: Type 2 diabetes GI: GERD, Chronic constipation, Pancreatitis : Incontinence, Chronic bladder infection HEENT: None Psych: Anxiety, Bipolar disorder, Other Musculoskeletal: Osteoarthritis, Fatigue, Chronic back pain, Other Derm: Other - Past Surgical History Past Surgical History: Yes General: EGD, Colonoscopy Ortho: Knee replacement, Spine surgery /RETAIL LOSS 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 HEENT: Tonsil/Adenoidectomy - Present Medications Home Medications: Ambulatory Orders Medication Instructions Recorded Confirmed Levothyroxine Sodium 50 mcg PO QDAC #30 07/17/19 07/06/21 gemfibroziL [Gemfibrozil] 600 mg PO BID #60 07/17/19 07/06/21 risperiDONE [Risperdal] 1 mg PO QPM #30 07/17/19 07/06/21 Cholecalciferol [Vitamin D3] 25 mcg PO DAILY 08/15/20 07/06/21 Gabapentin [Neurontin] 100 mg PO TID 08/15/20 07/06/21 Aspirin [Aspirin EC] 61 mg PO BID 12/27/20 07/06/21 Docusate Sodium 250Mg Capsule 250 - 500 mg PO DAILY 12/29/20 07/06/21 [Colace 250Mg Capsule] Furosemide [Lasix] 20 mg PO DAILY 03/05/21 07/06/21 Omeprazole Magnesium 20 mg PO DAILY 03/05/21 07/06/21 Propranolol [Inderal] 10 mg PO TID 03/05/21 07/06/21 Venlafaxine HCl 75 mg PO BID 03/05/21 07/06/21 Buprenorphine HCl/Naloxone HCl 2.5 tab SL DAILY 03/27/21 07/06/21 [Suboxone 8-2 mg Tab] Metoprolol Succinate [Toprol Xl] 50 mg PO DAILY 07/06/21 07/06/21 Tizanidine HCl 2 mg PO TID 07/06/21 07/06/21 - Allergies Allergies/Adverse Reactions: Allergies Allergy/AdvReac Type Severity Reaction Status Date / Time NSAIDS (Non-Steroidal Allergy Mild Hives Verified 07/06/21 11:01 Anti-Inflamma acetaminophen Allergy Hives Verified 07/06/21 11:01 green pepper Allergy Unknown Verified 07/06/21 11:01 lisinopril Allergy Unknown Verified 07/06/21 11:01 Sulfa (Sulfonamide AdvReac Mild Rash Verified 07/06/21 11:01 Antibiotics) - Social History Does the pt smoke?: Yes Smoking Status: Current every day smoker Does the pt drink ETOH?: No Does the pt have substance abuse?: No - Immunizations Immunizations are current?: Yes Immunizations: TDAP >10years/unknown - POLST Patient has POLST: No POLST Status: Full Code PD ED PE NORMAL - Vitals Vital signs reviewed: Yes (hypertensive) - General General: Well developed/nourished, Other (71 y/o female with parched lips, a vacant stare and moaning) - HEENT HEENT: Atraumatic, PERRL, EOMI, Other (parched mucous membranes) - Neck Neck: Supple, no meningeal sign, No bony TTP - Cardiac Cardiac: RRR, No murmur - Respiratory Respiratory: No respiratory distress, Clear bilaterally - Abdomen Abdomen: Normal bowel sounds, Soft, Non tender, Non distended - Back Back: No CVA TTP, No spinal TTP - Derm Derm: Normal color, Warm and dry - Extremities Extremities: No deformity, No edema - Neuro Neuro: shop technician 2-12 intact, No motor deficit, No sensory deficit Eye Opening: Spontaneous Motor: Localizes to Pain Verbal: Confused GCS Score: 13 - Psych Psych: Other (mood is withdrawn affect is flat) Results - Vitals Vitals: Vital Signs - 24 hr 07/06/21 07/06/21 07/06/21 11:01 11:06 13:06 Temperature 36.2 C L Heart Rate 93 82 82 Respiratory 20 15 17 Rate Blood Pressure 171/102 H 147/119 H 177/97 H O2 Saturation 100 100 100 Oxygen O2 Source [] Room air O2 Source Room air - Labs Labs: Laboratory Tests 07/06/21 07/06/21 07/06/21 11:51 12:06 12:06 WBC 8.0 RBC 3.85 L Hgb 11.2 L Hct 34.5 L MCV 89.6 MCH 29.1 MCHC 32.5 RDW 14.6 Plt Count 387 MPV 9.3 Neut # (Auto) 6.3 Lymph # (Auto) 0.8 L Henry # (Auto) 0.6 Eos # (Auto) 0.2 Baso # (Auto) 0.0 Absolute Nucleated RBC 0.00 Nucleated RBC % 0.0 Sodium 143 Potassium 4.3 Chloride 105 Carbon Dioxide 25 Anion Gap 13.0 BUN 50 H Creatinine 1.9 H Estimated GFR (MDRD) 26 L Glucose 137 H Lactic Acid Calcium 9.8 Total Bilirubin 0.6 AST 13 ALT < 10 L Alkaline Phosphatase 150 H Total Protein 7.5 Albumin 3.4 Globulin 4.1 Albumin/Globulin Ratio 0.8 L Lipase 25 Urine Color YELLOW Urine Clarity CLOUDY Urine pH 6.0 Ur Specific [place] 1.010 Urine Protein TRACE Urine Glucose (UA) NEGATIVE Urine Ketones NEGATIVE Urine Occult Blood SMALL H Urine Nitrite NEGATIVE Urine Bilirubin NEGATIVE Urine Urobilinogen 0.2 (NORMAL) Ur Leukocyte Esterase LARGE H Urine RBC 6-10 H Urine WBC >25 H Urine WBC Clumps PRESENT Ur Squamous Epith Cells FEW Squamous Urine Bacteria Few Ur Microscopic Review INDICATED Urine Culture Comments INDICATED Last Dose Date Last Dose Time Urine Opiates Screen NEGATIVE Ur Oxycodone Screen NEGATIVE Urine Methadone Screen NEGATIVE Ur Propoxyphene Screen NEGATIVE Ur Barbiturates Screen NEGATIVE Ur Tricyclics Screen NEGATIVE Ur Phencyclidine Scrn NEGATIVE Ur Amphetamine Screen NEGATIVE U Methamphetamines Scrn NEGATIVE U Benzodiazepines Scrn NEGATIVE [place] Urine Cocaine Screen NEGATIVE U Cannabinoids Screen POSITIVE H Ethyl Alcohol < 5.0 07/06/21 07/06/21 12:06 12:06 WBC RBC Hgb Hct MCV MCH MCHC RDW Plt Count MPV Neut # (Auto) Lymph # (Auto) Henry # (Auto) Eos # (Auto) Baso # (Auto) Absolute Nucleated RBC Nucleated RBC % Sodium Potassium Chloride Carbon Dioxide Anion Gap BUN Creatinine Estimated GFR (MDRD) Glucose Lactic Acid 1.9 Calcium Total Bilirubin AST ALT Alkaline Phosphatase Total Protein Albumin Globulin Albumin/Globulin Ratio Lipase Urine Color Urine Clarity Urine pH Ur Specific [place] Urine Protein Urine Glucose (UA) Urine Ketones Urine Occult Blood Urine Nitrite Urine Bilirubin Urine Urobilinogen Ur Leukocyte Esterase Urine RBC Urine WBC Urine WBC Clumps Ur Squamous Epith Cells Urine Bacteria Ur Microscopic Review Urine Culture Comments Last Dose Date UNK Last Dose Time UNK Urine Opiates Screen Ur Oxycodone Screen Urine Methadone Screen Ur Propoxyphene Screen Ur Barbiturates Screen Ur Tricyclics Screen Ur Phencyclidine Scrn Ur Amphetamine Screen U Methamphetamines Scrn U Benzodiazepines Scrn [place] < 0.05 Urine Cocaine Screen U Cannabinoids Screen Ethyl Alcohol - Rads (name of study) CT head Radiology: Prelim report reviewed (Impression: 1. Stable findings. Age-related volume loss and moderate small vessel ischemic change. No evident acute stroke, hemorrhage, or mass.), EMP read indepedently, See rad report Chest Radiology: Prelim report reviewed (Impression: No evidence of acute pulmonary process.), EMP read indepedently, See rad report Procedures - IVC sono (time) 1104 Bedside IVC sono: IVC measures (cm), IVC collapsed c insp (cm) (complete), Dehydration (est 1-2 liter deficit) PD MEDICAL DECISION MAKING - ED course Complexity details: reviewed old records, reviewed results, re-evaluated patient, considered differential, d/w patient, d/w family ED course: 71-year-old female with altered mental status again has urinary tract infection and she is dehydrated. These are the top 2 diagnosis for admission for this patient over the past 8 admissions. She had previously had Jose catheter in place and currently does not.Here in the emergency department she is found to be dehydrated by interrogation of the inferior vena cava and she is administered saline. She is 1-2 liters deficit. She also opens her eyes spontaneously does not make any reasonable attempt to communicate. She does moan periodically as if she is in pain. She is normally on Suboxone has not taken this. Metabolic encephalopathy dehydration urinary tract infection. I suspect this patient may have spent too long in the car prompting the urinary tract infection leading to her metabolic encephalopathy and dehydration. More moaning in pain and is administered IV buprenorphine 0.3mg without desired effect a second dose is given. We are not able to give the patients normal subox one dose here. Departure - Departure Disposition: 66 [facility] DC/Xfer Clinical Impression: Acute metabolic encephalopathy, Dehydration UTI (urinary tract infection) Qualifiers: Urinary tract infection type: acute cystitis Hematuria presence: with hematuria Qualified Code(s): N30.01 - Acute cystitis with hematuria Condition: Stable
[2021-07-06 12:00] LABS: MUDS CUTOFF CONCENTRATIONS CUTOFF CONC BELOW:
[2021-07-06 12:08] LABS: BILIRUBIN,URINE NEGATIVE (NEGATIVE); GLUCOSE, URINE (UA) NEGATIVE (NEGATIVE); KETONES,URINE (UA) NEGATIVE (NEGATIVE); LEUKOCYTE ESTERASE, URINE LARGE (NEGATIVE); NITRITE,URINE NEGATIVE (NEGATIVE); OCCULT BLOOD,URINE SMALL (NEGATIVE); PROTEIN,URINE TRACE mg/dL (NEGATIVE); UROBILINOGEN,URINE 0.2 (NORMAL) E.U./dL (NORMAL)
[2021-07-06 12:14] LABS: BASOPHILS % (AUTO) 0.4 %; EOSINOPHILS # (AUTO) 0.2 10^3/uL (0.0-0.7); HCT - HEMATOCRIT 34.5 % (37.0-47.0); HGB - HEMOGLOBIN 11.2 g/dL (12.0-16.0); LYMPHOCYTES # (AUTO) 0.8 10^3/uL (1.5-3.5); LYMPHOCYTES % (AUTO) 9.7 %; MEAN CORPUSCULAR HEMOGLOBIN 29.1 pg (27.0-31.0); MEAN CORPUSCULAR HGB CONC 32.5 g/dL (32.0-36.0); MEAN CORPUSCULAR VOLUME 89.6 fL (81.0-99.0); MEAN PLATELET VOLUME 9.3 fL (7.9-10.8); MONOCYTES # (AUTO) 0.6 10^3/uL (0.0-1.0); MONOCYTES % (AUTO) 7.5 %; NEUTROPHILS # (AUTO) 6.3 10^3/uL (1.5-6.6); NEUTROPHILS % (AUTO) 79.3 %; PLT - PLATELET COUNT 387 10^3/uL (130-450); RED BLOOD COUNT 3.85 10^6/uL (4.20-5.40); RED CELL DISTRIBUTION WIDTH 14.6 % (12.0-15.0)
[2021-07-06 12:16] LABS: CLARITY,URINE CLOUDY (CLEAR)
[2021-07-06 12:19] LABS: AMPHETAMINE SCREEN,URINE NEGATIVE (NEGATIVE); BARBITURATE SCREEN,UR NEGATIVE (NEGATIVE); BENZODIAZEPINES SCREEN, URINE NEGATIVE (NEGATIVE); COCAINE SCREEN URINE NEGATIVE (NEGATIVE); METHADONE SCREEN, URINE NEGATIVE (NEGATIVE); METHAMPHETAMINES SCREEN, URINE NEGATIVE (NEGATIVE); OPIATE SCREEN, URINE NEGATIVE (NEGATIVE); OXYCODONE SCREEN, URINE NEGATIVE (NEGATIVE); PROPOXYPHENE SCREEN, URINE NEGATIVE (NEGATIVE); THC CANNABINOID SCREEN, URINE POSITIVE (NEGATIVE); TRICYCLIC ANTIDEPRESSANT,URINE NEGATIVE (NEGATIVE)
[2021-07-06 12:26] LABS: ALBUMIN 3.4 g/dL (3.2-5.5); ALBUMIN/GLOBULIN RATIO 0.8 (1.0-2.2); ALKALINE PHOSPHATASE 150 IU/L (42-121); ALT ALANINE AMINOTRANSFERASE < 10 IU/L (10-60); AST ASPARTATE AMINOTRANSFERASE 13 IU/L (10-42); BILIRUBIN,TOTAL 0.6 mg/dL (0.2-1.0); BUN - BLOOD UREA NITROGEN 50 mg/dL (6-20); CALCIUM 9.8 mg/dL (8.5-10.3); CARBON DIOXIDE - CO2 25 mmol/L (21-32); CHLORIDE 105 mmol/L (101-111); CREATININE 1.9 mg/dL (0.4-1.0); ETOH - ETHANOL < 5.0 mg/dL; GFR - MDRD 26 (>89); GLUCOSE 137 mg/dL (70-100); LIPASE 25 U/L (22-51); POTASSIUM 4.3 mmol/L (3.5-5.0); SODIUM 143 mmol/L (135-145); TOTAL PROTEIN 7.5 g/dL (6.7-8.2)
[2021-07-06 12:27] LABS: WBC CLUMPS,URINE PRESENT; WBC,URINE >25 /HPF (0-5)
[2021-07-06 12:28] LABS: BACTERIA,URINE Few /HPF (None Seen); SQUAMOUS EPITHELIAL CELL,UR FEW Squamous (<= Few)
[2021-07-06 12:45] LABS: LITHIUM < 0.05 mmol/L
[2021-07-06] MEDS ORDERED: SODIUM CHLORIDE FLUSH 0.9% 10 ML SYRINGE IVP PRN (13:09)
[2021-07-06] MEDS ORDERED: BUPRENORPHINE 0.3 MG/ML VIAL IVP ONE ×2 (13:10→13:23)
[2021-07-06] MEDS ORDERED: PROCHLORPERAZINE 10 MG/2 ML VIAL IVP PRN (13:19)
[2021-07-06] MEDS ORDERED: ONDANSETRON 4 MG/2 ML VIAL IVP PRN (13:19)
[2021-07-06] MEDS ORDERED: ONDANSETRON ODT 4 MG TABLET TL PRN (13:19)
[2021-07-06] MEDS ORDERED: FOSFOMYCIN TROMETHAMINE 3 GM PACKET PO STA (13:36)
[2021-07-06] MEDS: SODIUM CHLORIDE 0.9% 1,000 ML IV SCH (14:17)
[2021-07-06 14:48] LABS: B. PARAPERTUSSIS- RESP PCR PAN NOT DETECTED; B. PERTUSSIS- RESP PCR PANEL NOT DETECTED; C. PNEUMONIAE- RESP PCR PANEL NOT DETECTED; CORONAVIRUS 229E-RESP PCR NOT DETECTED; CORONAVIRUS HKU1-RESP PCR NOT DETECTED; CORONAVIRUS NL63-RESP PCR NOT DETECTED; CORONAVIRUS OC43-RESP PCR NOT DETECTED; HUMAN METAPNEUMOVIRUS NOT DETECTED; INFLUENZA A- RESP PCR PANEL NOT DETECTED; INFLUENZA B - RESP PCR PANEL NOT DETECTED; M. PNEUMONIAE- RESP PCR PANEL NOT DETECTED; PARAINFLUENZA VIRUS 1 NOT DETECTED; PARAINFLUENZA VIRUS 2 NOT DETECTED; PARAINFLUENZA VIRUS 3 NOT DETECTED; PARAINFLUENZA VIRUS 4 NOT DETECTED; RHINOVIRUS/ENTEROVIRUS NOT DETECTED; RSV- RESP PCR PANEL NOT DETECTED; SARS-CoV-2 -RESP PCR PANEL NOT DETECTED
[2021-07-06] MEDS ORDERED: MIN OIL/DIMETHICON/COCONUT OIL 92 GM TUBE TOP PRN (15:00)
[2021-07-06] MEDS: SODIUM CHLORIDE FLUSH 0.9% 10 ML SYRINGE IVP SCH (16:57)
--- NOTE | 2021-07-06 17:21 | HISTORY & PHYSICAL EXAMINATION ---
Chief Complaint - Chief Complaint Chief Complaint: Acute metabolic encephalopathy History of Present Illness - Admitted From Admitted From:: Home - History Obtained From Records Reviewed: EMS report; ED provider note; prior H&Ps History obtained from: ED provider note - details from pt's Exam Limitations: Pt. confusion limiting history - History of Present Illness HPI Comment/Other: Taken from ED note due to patient's inability to give details of current events: "71-year-old female with a history of recurrent metabolic encephalopathy related to urinary tract infection has again become less interactive and has stopped eating and drinking. The patient is unable to provide any history. Her Edward Alberto is contacted by telephone [phone] and he indicates that Annika went to appointments and was doing well on Wednesday and Wednesday. She had a long appointment on Wednesday up in [place] regarding dentures. The following day she appeared confused and decreased the amount of oral intake and did not take her medications. Her indicates that he normally is placing her medications in her medication boxes with the exception of her Suboxone and that she has been taking them regularly until yesterday." She arrived via ambulance. Per EMS report, she was weak x 2 days and confused, smelling strongly of urine. Patients states she is doing bad. She is having stabbing pain in her bilateral hips. She answers "I don't know" to all further questions. She has a long history of similar presentations, she is admitted and improves after IV fluid administration and antibiotics. 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 Has been taken off opioids by her PCP. Currently on suboxone. - Past Surgical History General: reports: EGD, Colonoscopy Ortho: reports: Knee replacement, Spine surgery /BOWLING BALL ASSEMBLER: reports: section HEENT: reports: Tonsil/Adenoidectomy - Family & Social History Family History: Mother: , CAD, Father: , CAD Family History Comment/Other: Both mother and father of heart disease at the age of 57. Living arrangement: At home Living Situation: With spouse/s.o. Social History Notes: She smoked 1ppd and now down to 1-2 cigs a day. Uses CBD cannabis oil sublingual. She does not drink alcohol and no hx of alcohol abuse. Did abuse prescription meds but that problem has been addressed by her PCP. No hx of other recreational abuse. - Substance History Use: Uses substance without health or social issues: Tobacco (hx) - POLST Patient has POLST: No POLST Status: Full Code Meds/Allgy - Home Medications Home Medications: Ambulatory Orders Medication Instructions Recorded Confirmed Levothyroxine Sodium 50 mcg PO QDAC #30 07/17/19 07/06/21 gemfibroziL [Gemfibrozil] 600 mg PO BID #60 07/17/19 07/06/21 risperiDONE [Risperdal] 1 mg PO QPM #30 07/17/19 07/06/21 Cholecalciferol [Vitamin D3] 25 mcg PO DAILY 08/15/20 07/06/21 Gabapentin [Neurontin] 100 mg PO TID 08/15/20 07/06/21 Aspirin [Aspirin EC] 81 mg PO DAILY 12/27/20 07/07/21 Docusate Sodium 250Mg Capsule 250 - 500 mg PO DAILY 12/29/20 07/06/21 [Colace 250Mg Capsule] Furosemide [Lasix] 20 mg PO DAILY 03/05/21 07/06/21 Omeprazole Magnesium 20 mg PO DAILY 03/05/21 07/06/21 Propranolol [Inderal] 10 mg PO TID 03/05/21 07/06/21 Venlafaxine HCl 75 mg PO BID 03/05/21 07/06/21 Buprenorphine HCl/Naloxone HCl 2.5 tab SL DAILY 03/27/21 07/06/21 [Suboxone 8-2 mg Tab] Metoprolol Succinate [Toprol Xl] 50 mg PO DAILY 07/06/21 07/06/21 Tizanidine HCl 2 mg PO TID 07/06/21 07/06/21 - Allergies Allergies/Adverse Reactions: Allergies Allergy/AdvReac Type Severity Reaction Status Date / Time NSAIDS (Non-Steroidal Allergy Mild Hives Verified 07/06/21 11:01 Anti-Inflamma acetaminophen Allergy Hives Verified 07/06/21 11:01 green pepper Allergy Unknown Verified 07/06/21 11:01 lisinopril Allergy Unknown Verified 07/06/21 11:01 Sulfa (Sulfonamide AdvReac Mild Rash Verified 07/06/21 11:01 Antibiotics) Review of Systems - Constitutional Constitutional: reports: Weakness - Musculoskeletal Musculoskeletal: reports: Back pain, Joint pain (Bilateral hips) - Other Findings Other Findings: ROS extremely limited due to pt's confusion. Prior Level of Functionality: Requires help with some ADLs and spends extensive time in bed. Typically walks with a walker. Lives in her own domicile with her . She gets 4 hours/day of provider care Wednesday-Wednesday. Exam - Vital Signs Reviewed Vital Signs: Yes Vital Signs: Vital Signs x48h Temp Pulse Pulse Resp BP BP BP 07/06/21 15:51 36.8 C 90 22 156/93 H 07/06/21 14:09 36.6 C 97 19 166/65 H 07/06/21 13:06 82 17 177/97 H 07/06/21 11:06 82 15 147/119 H 07/06/21 11:01 36.2 C L 93 20 171/102 H Pulse Ox 07/06/21 15:51 100 07/06/21 14:09 100 07/06/21 13:06 100 07/06/21 11:06 100 07/06/21 11:01 100 - Physical Exam General Appearance: positive: No acute distress, Lethargic (moderately obese, pscyhomotor slowing) Eyes Bilateral: positive: Normal inspection, PERRL, EOMI, Conjunctivae nml, No scleral icterus ENT: positive: ENT inspection nml. negative: Dry mucous membranes Neck: positive: Nml inspection, No JVD, Trachea midline. negative: Lymphadenopathy (R), Lymphadenopathy (L), Stiff neck Respiratory: positive: No respiratory distress (Normal effort. No retractions.), Wheezes (R lower lobe only.). negative: Rales, Rhonchi Cardiovascular: positive: Regular rate & rhythm, No murmur, No gallop Peripheral Pulses: positive: 2+ Abdomen: positive: Non-tender, Nml bowel sounds. negative: Guarding, Mass Back: positive: Nml inspection. negative: CVA tenderness (R), CVA tenderness (L) Skin: positive: Color nml, No rash, Warm, Dry, Other (Lower right tavares with discoloration and scarring consistent with venous stasis. No erythema. Warm to touch. Corresponding area on the left leg is cool.) Extremities: positive: Non-tender, Full ROM, Nml appearance Neurologic/Psychiatric: positive: CN's nml (2-12) (Grossly), Mood/affect nml, Disoriented to person (Unable to produce last name.), Disoriented to place, Disoriented to time, Depressed mood/affect. negative: Facial droop, Slurred/abnml speech Conclusion/Plan - Problem List (1) Acute metabolic encephalopathy Conclusion/Plan: Chronic patient will be placed in inpatient status Treat the underlying cause which we suspect is UTI Treat dehydration with acute kidney injury with IV fluids Social work eval PT eval Head CT in the ED with normal read for her age. (2) UTI (urinary tract infection) Conclusion/Plan: Urinalysis positive for leukocyte esterase, occult blood and few bacteria and urine cloudy, consistent with UTI. Prior UTI positive for E. coli and Enterococcus faecalis. Gave one dose fosfomycin. Blood cultures ordered. Qualifiers: Urinary tract infection type: acute cystitis Hematuria presence: with hematuria Qualified Code(s): N30.01 - Acute cystitis with hematuria (3) Dehydration Conclusion/Plan: Bedside IVC sono: IVC Collapsed secondary to dehydration (est 1-2 liter deficit) Rehydrating with IV NS at 100 mL per hour. AM BMPs monitoring BUN and creatinine. (4) Tobacco abuse Conclusion/Plan: Consider nicotine patch depending on patient's tobacco usage. (5) At risk for deep venous thrombosis Conclusion/Plan: SCDs and lovenox for dvt prevention. Will encourage walking as she regains strength. (6) COPD (chronic obstructive pulmonary disease) Conclusion/Plan: Not in exacerbation. Will continue to monitor. Qualifiers: COPD type: unspecified COPD Qualified Code(s): J44.9 - Chronic obstructive pulmonary disease, unspecified (7) Chronic kidney disease (CKD) Conclusion/Plan: IV fluids until she can tolerate adequate orals. She had a creat of 2.2 with her last stay. Currently 1.9. Qualifiers: Chronic kidney disease stage: unspecified stage Qualified Code(s): N18.9 - Chronic kidney disease, unspecified (8) Chronic pain syndrome Conclusion/Plan: On suboxone at home. Gave two doses buprenophine. Oxycodone 5 mg for pain. (9) Diabetes mellitus type 2, diet-controlled Conclusion/Plan: Monitoring BGLs q (10) HTN (hypertension) Conclusion/Plan: Monitor for hypertensive emergency. Resuming home htn meds. Qualifiers: Hypertension type: primary hypertension Qualified Code(s): I10 - Essential (primary) hypertension - Lab Results Fish Bones: 07/07/21 11:24 07/06/21 12:06
[2021-07-07] MEDS: ACETAMINOPHEN 325 MG TABLET PO PRN ×3 (01:18→12:52)
[2021-07-07] MEDS: LEVOTHYROXINE 25 MCG TABLET PO SCH (06:46)
[2021-07-07] MEDS: SODIUM CHLORIDE FLUSH 0.9% 10 ML SYRINGE IVP SCH ×3 (08:08→16:09)
[2021-07-07] MEDS: FUROSEMIDE 20 MG TABLET PO SCH (08:08)
[2021-07-07] MEDS: ENOXAPARIN 30 MG/0.3 ML SYRINGE SUBQ SCH (08:08)
[2021-07-07] MEDS: METOPROLOL SUCCINATE 50 MG TABLET PO SCH (08:14)
[2021-07-07] MEDS: SODIUM CHLORIDE 0.9% 1,000 ML IV SCH ×3 (09:44→18:27)
--- NOTE | 2021-07-07 10:19 | PHARMACY PROGRESS NOTE ---
- Best Possible Medication History Admit Date and Time: 07/06/21 8428 Processed by: Nursing Medication History completed: Yes As the person ultimately responsible for medication therapy, providers are able to order a medication from an existing home medication list in [facility] via the "Reconcile Routine" prior to Confirmation of that medication by manufacturing support engineer. Such practice is discouraged except when the physician, in their clinical judgment, deems that a medical need exists for a medication without regard to previous use.
--- NOTE | 2021-07-07 11:07 | PROVIDER PROGRESS NOTE ---
Subjective - Prog Note Date Prog Note Date: 07/07/21 Prog Note Time: 10:59 - Subjective Pt reports feeling: Improved Subjective: Mrs. Alberto is a 71 y.o. female who admitted from the ED yesterday for confusion secondary to metabolic encephalopathy likely from UTI. She was also dehydrated, down 1-2 liters, per US report. She was unable to give any history and could not remember her last name. She was treated for UTI with fosfomycin to treat Enterococcus faelcalis and E. coli which had been culture in her urine previously. E. coli was confirmed with preliminary culture report. Sensitivities to follow. She has been on 100 mL per hour maintenence fluids to correct dehydration and VICKIE. Today she is feeling, "more comfortable". She is still having pain in her lower back and bilateral hips, which is exacerbated by movement. These are chronic. She notes dysuria, frequency and urgency. She also notes bilateral ear pain and fullness that she has had "for months" and chronic post-nasal drip associated with environmental allergies. She denies nausea, shortness of breath, chest pain, dizziness and lightheadedness. Current Medications - Current Medications Current Medications: Active Medications Acetaminophen (Acetaminophen 325 Mg Tablet) 650 mg PO Q4HR PRN PRN Reason: Pain 1 to 4 Last Admin: 07/07/21 08:07 Dose: 650 mg Enoxaparin Sodium (Enoxaparin 30 Mg/0.3 Ml Syringe) 30 mg SUBQ DAILY [facility] Last Admin: 07/07/21 08:08 Dose: 30 mg Furosemide (Furosemide 20 Mg Tablet) 20 mg PO DAILY [facility] Last Admin: 07/07/21 08:08 Dose: 20 mg Sodium Chloride (Normal Saline 0.9%) 1,000 mls @ 100 mls/hr IV .Q10H [facility] Last Admin: 07/07/21 09:44 Dose: 100 mls/hr Levothyroxine Sodium (Levothyroxine 25 Mcg Tablet) 50 mcg PO QDAC [facility] Last Admin: 07/07/21 06:46 Dose: 50 mcg Metoprolol Succinate (Metoprolol Succinate 50 Mg Tablet) 50 mg PO DAILY [facility] Last Admin: 07/07/21 08:14 Dose: 50 mg Mineral Oil (Min Oil/Dimethicon/Coconut Oil 92 Gm Tube) 1 applic TOP PRN PRN PRN Reason: Skin Care Multi-Ingredient Ointment (Zinc Oxide 20% Oint 30 Gm Tube) 1 applic TOP PRN PRN PRN Reason: Skin Care Ondansetron HCl (Ondansetron Odt 4 Mg Tablet) 4 mg TL Q6HR PRN PRN Reason: Nausea / Vomiting Ondansetron HCl (Ondansetron 4 Mg/2 Ml Vial) 4 mg IVP Q6HR PRN PRN Reason: Nausea / Vomiting Last Admin: 07/07/21 08:08 Dose: 4 mg Oxycodone HCl (Oxycodone 5 Mg Tablet) 5 mg PO Q4HR PRN PRN Reason: Pain 5 to 7 Multivit/Folic Acid/Iron ( Vitamin Tablet) 1 tab PO DAILYWM [facility] Prochlorperazine Edisylate (Prochlorperazine 10 Mg/2 Ml Vial) 10 mg IVP Q6HR PRN PRN Reason: Nausea / Vomiting Sodium Chloride (Sodium Chloride Flush 0.9% 10 Ml Syringe) 10 ml IVP PRN PRN PRN Reason: NEEDED PER PROVIDER ORDERS Sodium Chloride (Sodium Chloride Flush 0.9% 10 Ml Syringe) 10 ml IVP 0100,0900,1700 [facility] Last Admin: 07/07/21 08:08 Dose: 10 ml Cholecalciferol [Vitamin D3] 25 mcg PO DAILY 08/15/20 Gabapentin [Neurontin] 100 mg PO TID 08/15/20 Aspirin [Aspirin EC] 81 mg PO DAILY 12/27/20 Furosemide [Lasix] 20 mg PO DAILY 03/05/21 Omeprazole Magnesium 20 mg PO DAILY 03/05/21 Propranolol [Inderal] 10 mg PO TID 03/05/21 Venlafaxine HCl 75 mg PO BID 03/05/21 Buprenorphine HCl/Naloxone HCl [Suboxone 8-2 mg Tab] 2.5 tab SL DAILY 03/27/21 Metoprolol Succinate [Toprol Xl] 50 mg PO DAILY 07/06/21 Tizanidine HCl 2 mg PO TID 07/06/21 Objective - Vital Signs/Intake & Output Reviewed Vital Signs: Yes Vital Signs: Vital Signs x48h Temp Pulse Resp BP Pulse Ox 07/07/21 08:00 36.4 C L 96 20 179/81 H 98 Intake & Output: Intake & Output 07/04/21 07/05/21 07/06/21/07/22 23:59 23:59 23:59 23:59 Intake Total 2386.670 1653.333 Balance 2386.670 1653.333 - Objective General Appearance: positive: No acute distress, Alert Eyes Bilateral: positive: Normal inspection, PERRL, EOMI ENT: positive: Pharynx nml, No signs of dehydration, Other (L TM translucent, pearly parekh, without bulging or retraction with diagonal line of hypervasularity/inflammation. R TM mostly obscured by cerumen but visualized area translucent and pearly parekh.) Neck: positive: No JVD, Trachea midline. negative: Stiff neck Respiratory: positive: No respiratory distress, Breath sounds nml Cardiovascular: positive: Regular rate & rhythm, No murmur, No gallop Abdomen: positive: Nml bowel sounds, No distention, Tenderness (to palpation all quadrants). negative: Guarding, Mass Back: positive: Nml inspection. negative: CVA tenderness (R), CVA tenderness (L) Skin: positive: Color nml, No rash, Warm, Dry Extremities: positive: Nml appearance, Pedal edema (Non-pitting. Slight bilateral edema.) Neurologic/Psychiatric: positive: Disoriented to time. negative: Disoriented to person, Disoriented to place, Facial droop, Slurred/abnml speech - Lab Results Fish Bones: 07/07/21 11:24 07/06/21 12:06 Other Labs: Lab Results x24hrs 07/06/21 07/06/21 07/06/21 Range/Units 13:50 12:06 12:06 WBC (4.8-10.8) x10^3/uL RBC (4.20-5.40) 10^6/uL Hgb (12.0-16.0) g/dL Hct (37.0-47.0) % MCV (81.0-99.0) fL MCH (27.0-31.0) pg MCHC (32.0-36.0) g/dL RDW (12.0-15.0) % Plt Count (130-450) 10^3/uL MPV (7.9-10.8) fL Neut # (Auto) (1.5-6.6) 10^3/uL Lymph # (Auto) (1.5-3.5) 10^3/uL [place] # (Auto) (0.0-1.0) 10^3/uL Eos # (Auto) (0.0-0.7) 10^3/uL Baso # (Auto) (0.0-0.1) 10^3/uL Absolute Nucleated RBC x10^3/uL Nucleated RBC % /100WBC Sodium (135-145) mmol/L Potassium (3.5-5.0) mmol/L Chloride (101-111) mmol/L Carbon Dioxide (21-32) mmol/L Anion Gap (6-13) BUN (6-20) mg/dL Creatinine (0.4-1.0) mg/dL Estimated GFR (MDRD) (>89) Glucose (70-100) mg/dL Lactic Acid 1.9 (0.5-2.2) mmol/L Calcium (8.5-10.3) mg/dL Total Bilirubin (0.2-1.0) mg/dL AST (10-42) IU/L ALT (10-60) IU/L Alkaline Phosphatase (42-121) IU/L Total Protein (6.7-8.2) g/dL Albumin (3.2-5.5) g/dL Globulin (2.1-4.2) g/dL Albumin/Globulin Ratio (1.0-2.2) Lipase (22-51) U/L Urine Color Urine Clarity (CLEAR) Urine pH (5.0-7.5) PH Ur Specific [place] (1.002-1.030) Urine Protein (NEGATIVE) mg/dL Urine Glucose (UA) (NEGATIVE) mg/dL Urine Ketones (NEGATIVE) mg/dL Urine Occult Blood (NEGATIVE) Urine Nitrite (NEGATIVE) Urine Bilirubin (NEGATIVE) Urine Urobilinogen (NORMAL) E.U./dL Ur Leukocyte Esterase (NEGATIVE) Urine RBC (0-5) /HPF Urine WBC (0-5) /HPF Urine WBC Clumps Ur Squamous Epith Cells (<= Few) Urine Bacteria (None Seen) /HPF Ur Microscopic Review Urine Culture Comments Nasal Adenovirus (PCR) NOT DETECTED Nasal B. parapertussis DNA (PCR) NOT DETECTED Nasal Coronavir 229E PCR NOT DETECTED Nasal Coronavir HKU1 PCR NOT DETECTED Nasal Coronavir NL63 PCR NOT DETECTED Nasal Coronavir OC43 PCR NOT DETECTED Nasal Enterovir/Rhinovir PCR NOT DETECTED Nasal Influenza B PCR NOT DETECTED Nasal Influenza A PCR NOT DETECTED Nasal Parainfluen 1 PCR NOT DETECTED Nasal Parainfluen 2 PCR NOT DETECTED Nasal Parainfluen 3 PCR NOT DETECTED Nasal Parainfluen 4 PCR NOT DETECTED Nasal RSV (PCR) NOT DETECTED Nasal B.pertussis DNA PCR NOT DETECTED Nasal C.pneumoniae (PCR) NOT DETECTED Misael Human Metapneumo PCR NOT DETECTED Nasal M.pneumoniae (PCR) NOT DETECTED Nasal SARS-CoV-2 (PCR) NOT DETECTED Last Dose Date UNK Last Dose Time UNK Urine Opiates Screen (NEGATIVE) Ur Oxycodone Screen (NEGATIVE) Urine Methadone Screen (NEGATIVE) Ur Propoxyphene Screen (NEGATIVE) Ur Barbiturates Screen (NEGATIVE) Ur Tricyclics Screen (NEGATIVE) Ur Phencyclidine Scrn (NEGATIVE) Ur Amphetamine Screen (NEGATIVE) U Methamphetamines Scrn (NEGATIVE) U Benzodiazepines Scrn (NEGATIVE) [place] < 0.05 mmol/L Urine Cocaine Screen (NEGATIVE) U Cannabinoids Screen (NEGATIVE) Ethyl Alcohol mg/dL 07/06/21 07/06/21 07/06/21 Range/Units 12:06 12:06 11:51 WBC 8.0 (4.8-10.8) x10^3/uL RBC 3.85 L (4.20-5.40) 10^6/uL Hgb 11.2 L (12.0-16.0) g/dL Hct 34.5 L (37.0-47.0) % MCV 89.6 (81.0-99.0) fL MCH 29.1 (27.0-31.0) pg MCHC 32.5 (32.0-36.0) g/dL RDW 14.6 (12.0-15.0) % Plt Count 387 (130-450) 10^3/uL MPV 9.3 (7.9-10.8) fL Neut # (Auto) 6.3 (1.5-6.6) 10^3/uL Lymph # (Auto) 0.8 L (1.5-3.5) 10^3/uL [place] # (Auto) 0.6 (0.0-1.0) 10^3/uL Eos # (Auto) 0.2 (0.0-0.7) 10^3/uL Baso # (Auto) 0.0 (0.0-0.1) 10^3/uL Absolute Nucleated RBC 0.00 x10^3/uL Nucleated RBC % 0.0 /100WBC Sodium 143 (135-145) mmol/L Potassium 4.3 (3.5-5.0) mmol/L Chloride 105 (101-111) mmol/L Carbon Dioxide 25 (21-32) mmol/L Anion Gap 13.0 (6-13) BUN 50 H (6-20) mg/dL Creatinine 1.9 H (0.4-1.0) mg/dL Estimated GFR (MDRD) 26 L (>89) Glucose 137 H (70-100) mg/dL Lactic Acid (0.5-2.2) mmol/L Calcium 9.8 (8.5-10.3) mg/dL Total Bilirubin 0.6 (0.2-1.0) mg/dL AST 13 (10-42) IU/L ALT < 10 L (10-60) IU/L Alkaline Phosphatase 150 H (42-121) IU/L Total Protein 7.5 (6.7-8.2) g/dL Albumin 3.4 (3.2-5.5) g/dL Globulin 4.1 (2.1-4.2) g/dL Albumin/Globulin Ratio 0.8 L (1.0-2.2) Lipase 25 (22-51) U/L Urine Color YELLOW Urine Clarity CLOUDY (CLEAR) Urine pH 6.0 (5.0-7.5) PH Ur Specific [place] 1.010 (1.002-1.030) Urine Protein TRACE (NEGATIVE) mg/dL Urine Glucose (UA) NEGATIVE (NEGATIVE) mg/dL Urine Ketones NEGATIVE (NEGATIVE) mg/dL Urine Occult Blood SMALL H (NEGATIVE) Urine Nitrite NEGATIVE (NEGATIVE) Urine Bilirubin NEGATIVE (NEGATIVE) Urine Urobilinogen 0.2 (NORMAL) (NORMAL) E.U./dL Ur Leukocyte Esterase LARGE H (NEGATIVE) Urine RBC 6-10 H (0-5) /HPF Urine WBC >25 H (0-5) /HPF Urine WBC Clumps PRESENT Ur Squamous Epith Cells FEW Squamous (<= Few) Urine Bacteria Few (None Seen) /HPF Ur Microscopic Review INDICATED Urine Culture Comments INDICATED Nasal Adenovirus (PCR) Nasal B. parapertussis DNA (PCR) Nasal Coronavir 229E PCR Nasal Coronavir HKU1 PCR Nasal Coronavir NL63 PCR Nasal Coronavir OC43 PCR Nasal Enterovir/Rhinovir PCR Nasal Influenza B PCR Nasal Influenza A PCR Nasal Parainfluen 1 PCR Nasal Parainfluen 2 PCR Nasal Parainfluen 3 PCR Nasal Parainfluen 4 PCR Nasal RSV (PCR) Nasal B.pertussis DNA PCR Nasal C.pneumoniae (PCR) Misael Human Metapneumo PCR Nasal M.pneumoniae (PCR) Nasal SARS-CoV-2 (PCR) Last Dose Date Last Dose Time Urine Opiates Screen NEGATIVE (NEGATIVE) Ur Oxycodone Screen NEGATIVE (NEGATIVE) Urine Methadone Screen NEGATIVE (NEGATIVE) Ur Propoxyphene Screen NEGATIVE (NEGATIVE) Ur Barbiturates Screen NEGATIVE (NEGATIVE) Ur Tricyclics Screen NEGATIVE (NEGATIVE) Ur Phencyclidine Scrn NEGATIVE (NEGATIVE) Ur Amphetamine Screen NEGATIVE (NEGATIVE) U Methamphetamines Scrn NEGATIVE (NEGATIVE) U Benzodiazepines Scrn NEGATIVE (NEGATIVE) [place] mmol/L Urine Cocaine Screen NEGATIVE (NEGATIVE) U Cannabinoids Screen POSITIVE H (NEGATIVE) Ethyl Alcohol < 5.0 mg/dL Assessment/Plan - Problem List (1) Acute metabolic encephalopathy Impression: Still on continuous IV NS at 100 ml/hr. Eating regular diet and drinking water regularly. Received fosfomycin for UTI. PT and Social work evals pending. Altered mental status improving, now oriented to person and place, when unable to give her last name yesterday. Knew the current year but thought it was March. She has been able to make reasonable conversation today and answer questions appropriately, though she still does not remember events leading to her hospitalization. Will continue to monitor. (2) UTI (urinary tract infection) Impression: 1 dose fosfomycin yesterday. IV NS at 100 mL/hr She endorses dysuria, frequency, and urgency. Preliminary urine culture report identified E coli., which was sensitive to fosfomycin. WBC count still normal. No CVA tenderness or signs of worsening illness. Will continue to monitor clinically and with daily BMP and CBC. Qualifiers: Urinary tract infection type: acute cystitis Hematuria presence: with hematuria Qualified Code(s): N30.01 - Acute cystitis with hematuria (3) Dehydration Impression: Likely resolved. Pending BMP. Mucous membranes moist and mentation improving. BP high but stable. HR stable high 90s. (4) Tobacco abuse Impression: She typically smokes 1-2 cigarettes per day. States she would like a nicotine patch because she is feeling a little anxious. Ordered. (5) At risk for deep venous thrombosis Impression: SCDs while in bed. On Lovenox. Encourage walking with walker when okayed by PT. Will continue to monitor. (6) COPD (chronic obstructive pulmonary disease) Impression: Not in exacerbation. Will continue to monitor. Qualifiers: COPD type: unspecified COPD Qualified Code(s): J44.9 - Chronic obstructive pulmonary disease, unspecified (7) Chronic kidney disease (CKD) Impression: Continuing on IV fluids as well as orals. Qualifiers: Chronic kidney disease stage: unspecified stage Qualified Code(s): N18.9 - Chronic kidney disease, unspecified (8) Chronic pain syndrome Impression: Starting home Buprenorphine dose; continuing oxycodone for breakthrough pain as needed. (9) Diabetes mellitus type 2, diet-controlled Impression: Started diabetic diet. Will monitor for hyperglycemia. (10) HTN (hypertension) Impression: BPs mainting 170s/100s. Continuing lasix and metoprolol. Qualifiers: Hypertension type: primary hypertension Qualified Code(s): I10 - Essential (primary) hypertension (11) Otitis externa of left ear Impression: Pt reporting bilateral pain and pressure. Mildly red/inflamed L TM without bulging, retraction, effusion. R view obstructed by cerumen. Cortisporin otic drops begun. Qualifiers: Otitis externa type: unspecified type Chronicity: unspecified Qualified Code(s): H60.92 - Unspecified otitis externa, left ear
[2021-07-07 11:29] LABS: BASOPHILS % (AUTO) 0.3 %; EOSINOPHILS # (AUTO) 0.1 10^3/uL (0.0-0.7); HCT - HEMATOCRIT 29.2 % (37.0-47.0); HGB - HEMOGLOBIN 9.3 g/dL (12.0-16.0); LYMPHOCYTES # (AUTO) 1.1 10^3/uL (1.5-3.5); LYMPHOCYTES % (AUTO) 17.6 %; MEAN CORPUSCULAR HGB CONC 31.8 g/dL (32.0-36.0); MEAN PLATELET VOLUME 9.4 fL (7.9-10.8); MONOCYTES # (AUTO) 0.6 10^3/uL (0.0-1.0); MONOCYTES % (AUTO) 9.7 %; NEUTROPHILS # (AUTO) 4.2 10^3/uL (1.5-6.6); NEUTROPHILS % (AUTO) 69.6 %; PLT - PLATELET COUNT 331 10^3/uL (130-450); RED BLOOD COUNT 3.21 10^6/uL (4.20-5.40); RED CELL DISTRIBUTION WIDTH 14.9 % (12.0-15.0); WHITE BLOOD COUNT 6.1 x10^3/uL (4.8-10.8)
[2021-07-07] MEDS ORDERED: ZINC OXIDE 20% OINT 30 GM TUBE TOP PRN (11:55)
[2021-07-07] MEDS: PRENATAL VITAMIN TABLET PO SCH (12:34)
[2021-07-07] MEDS: CHOLECALCIFEROL 25 MCG TABLET PO SCH (12:52)
[2021-07-07] MEDS ORDERED: BUPRENORPHINE/NALOXONE 8-2 MG TAB SL SCH (13:00)
[2021-07-07] MEDS: tiZANidine 4 MG TABLET PO SCH ×2 (13:55→21:35)
[2021-07-07] MEDS: PROPRANOLOL 10 MG TABLET PO SCH ×2 (13:55→21:35)
[2021-07-07] MEDS: GABAPENTIN 100 MG CAPSULE PO SCH ×2 (13:55→21:34)
[2021-07-07] MEDS: NICOTINE 7 MG PATCH TOP SCH (14:14)
[2021-07-07] MEDS: NEOMYCIN/POLYMYX/HC OTIC DROPS EACHEAR SCH ×2 (14:14→21:35)
[2021-07-07] MEDS ORDERED: BUPRENORPHINE/NALOXONE 8-2 MG TAB SL ONE (15:00)
[2021-07-07 15:38] LABS: CREATININE 1.8 mg/dL (0.4-1.0)
[2021-07-07 15:44] LABS: CALCIUM 9.2 mg/dL (8.5-10.3); POTASSIUM 4.1 mmol/L (3.5-5.0)
--- NOTE | 2021-07-07 16:20 | XRAY Report ---
PROCEDURE: Hip w/Pelvis 2-3V LT INDICATIONS: can't weight bear and crying , no hx of trauma TECHNIQUE: AP pelvis with lateral view(s) of the left hip(s). COMPARISON: Reference is made to the CT abdomen and pelvis dated August 28, 2020 FINDINGS: Crosstable lateral is compromised by soft tissue attenuation. BONES/JOINTS: No acute, displaced fracture. No widening of the pubic symphysis. The sacroiliac joints are symmetric. The femoral heads are normal ly seated within the acetabulum. Postsurgical change with discectomy at L4-5. SOFT TISSUES: No focal abnormality. IMPRESSION: 1.No acute osseous abnormality. Reviewed by: Ced Herrera MD on 07/07/2021 4:19 PM PST Approved by: Ced Herrera MD on 07/07/2021 4:19 PM PST Station ID: [id number]
[2021-07-07] MEDS ORDERED: CALCIUM CARBONATE CHEW 500 MG TABLET PO PRN (17:05)
[2021-07-07] MEDS: oxyCODONE 5 MG TABLET PO PRN (18:18)
[2021-07-07] MEDS ORDERED: risperiDONE 1 MG TABLET PO SCH (21:00)
[2021-07-07] MEDS: BUPRENORPHINE/NALOXONE 8-2 MG TAB SL SCH (21:35)
[2021-07-07] MEDS: gemfibroziL 600 MG TABLET PO SCH (21:35)
[2021-07-07] MEDS: VENLAFAXINE 37.5 MG TABLET PO SCH (21:35)
[2021-07-08] MEDS: SODIUM CHLORIDE FLUSH 0.9% 10 ML SYRINGE IVP SCH ×2 (01:14→08:14)
[2021-07-08] MEDS: SODIUM CHLORIDE 0.9% 1,000 ML IV SCH (04:30)
[2021-07-08] MEDS: LEVOTHYROXINE 25 MCG TABLET PO SCH (07:35)
[2021-07-08] MEDS: BUPRENORPHINE/NALOXONE 8-2 MG TAB SL SCH ×2 (07:36→13:05)
[2021-07-08] MEDS: PROPRANOLOL 10 MG TABLET PO SCH ×2 (07:36→13:08)
[2021-07-08] MEDS: ACETAMINOPHEN 325 MG TABLET PO PRN (07:36)
[2021-07-08] MEDS: GABAPENTIN 100 MG CAPSULE PO SCH ×2 (07:36→13:05)
[2021-07-08] MEDS: tiZANidine 4 MG TABLET PO SCH ×2 (07:36→13:06)
[2021-07-08] MEDS: NEOMYCIN/POLYMYX/HC OTIC DROPS EACHEAR SCH ×2 (07:37→13:05)
[2021-07-08] MEDS: FUROSEMIDE 20 MG TABLET PO SCH (08:13)
[2021-07-08] MEDS: ENOXAPARIN 30 MG/0.3 ML SYRINGE SUBQ SCH (08:13)
[2021-07-08] MEDS: PRENATAL VITAMIN TABLET PO SCH (08:13)
[2021-07-08] MEDS: VENLAFAXINE 37.5 MG TABLET PO SCH (08:13)
[2021-07-08] MEDS: METOPROLOL SUCCINATE 50 MG TABLET PO SCH (08:13)
[2021-07-08] MEDS: gemfibroziL 600 MG TABLET PO SCH (08:13)
[2021-07-08] MEDS: CHOLECALCIFEROL 25 MCG TABLET PO SCH (08:13)
[2021-07-08] MEDS: NICOTINE 7 MG PATCH TOP SCH (08:14)
[2021-07-08] MEDS ORDERED: SODIUM CHLORIDE 0.9% 1,000 ML IV SCH (08:28)
[2021-07-08 08:41] LABS: BASOPHILS % (AUTO) 0.4 %; EOSINOPHILS # (AUTO) 0.2 10^3/uL (0.0-0.7); EOSINOPHILS % (AUTO) 4.1 %; HCT - HEMATOCRIT 27.4 % (37.0-47.0); HGB - HEMOGLOBIN 8.6 g/dL (12.0-16.0); LYMPHOCYTES # (AUTO) 1.4 10^3/uL (1.5-3.5); LYMPHOCYTES % (AUTO) 28.5 %; MEAN CORPUSCULAR HGB CONC 31.4 g/dL (32.0-36.0); MEAN CORPUSCULAR VOLUME 92.3 fL (81.0-99.0); MEAN PLATELET VOLUME 9.1 fL (7.9-10.8); MONOCYTES # (AUTO) 0.6 10^3/uL (0.0-1.0); MONOCYTES % (AUTO) 11.7 %; NEUTROPHILS # (AUTO) 2.7 10^3/uL (1.5-6.6); NEUTROPHILS % (AUTO) 54.7 %; PLT - PLATELET COUNT 276 10^3/uL (130-450); RED BLOOD COUNT 2.97 10^6/uL (4.20-5.40); WHITE BLOOD COUNT 4.9 x10^3/uL (4.8-10.8)
[2021-07-08] MEDS ORDERED: BUPRENORPHINE/NALOXONE 8-2 MG TAB SL SCH (09:00)
[2021-07-08] MEDS ORDERED: FOLIC ACID 1 MG TABLET PO SCH (09:00)
[2021-07-08] MEDS ORDERED: polyethylene glycoL 3350 17 GM PACKET PO SCH (09:00)
[2021-07-08 09:08] LABS: CALCIUM 8.8 mg/dL (8.5-10.3); CREATININE 1.9 mg/dL (0.4-1.0); POTASSIUM 4.2 mmol/L (3.5-5.0)
[2021-07-08 10:36] LABS: ABSOLUTE RETICS # AUTO 0.071 10^6/uL (0.020-0.110); RED BLOOD COUNT 2.93 10^6/uL (4.20-5.40); RETICULOCYTE COUNT % (AUTO) 2.42 % (0.5-2.3)
[2021-07-08] MEDS ORDERED: PANTOPRAZOLE 40 MG TABLET PO SCH (11:00)
[2021-07-08 11:07] LABS: FERRITIN 51.5 ng/mL (11.0-306.8)
[2021-07-08 11:21] LABS: % IRON SATURATION 20 % (20-50); IRON 69 ug/dL (28-170); TOTAL IRON BINDING CAPACITY 346 ug/dL (250-450); TRANSFERRIN 247 mg/dL (192-382)
--- NOTE | 2021-07-08 13:07 | Discharge Plan ---
Discharge Plan Problem Reviewed?: Yes Disposition: Home Health Service Condition: Stable Prescriptions: oxyCODONE [Roxicodone] 5 mg PO Q6HR PRN #15 tablet PRN Reason: Pain 5 to 7 Diet: Regular Activity Restrictions: Activity as Tolerated Shower Restrictions: No (fall precaution) Instruction Topics: Oxycodone tablets or capsules, UTI, ED Altered Loc Health Concerns: UTI/altered mental status, weakness, and hip pain Plan of Treatment: You are alert and oriented plus 4 on today. You were found to have UTI infect ion. you were treated with antibiotics in the hospital. You may keep hydration and personal hygiene at home to prevention of your frequent Urinary tract infection. Home health aide is arranged for you. You had PT and OT evaluation the treatment for you in the hospital. You are arranged for home health PT and OT For your strengths and prevention of fall in the home. You had an x-ray for your hip, no acute process was found. You are prescripted pain medication oxycodone as needed, and Follow-up with home health PT and OT. Care Goals: Stabilization and improvement of your medical issues Assessment: Discussed the care plan with you, answered your questions, you understood Additional Instructions or Follow Up instructions: You may follow-up with your PCP in 1 to 2 weeks. should your symptoms return or worse, you may present to the ER or call 911 for help Follow-Up Care: Home Health - PT, Home Health - OT No Smoking: If you smoke, Please STOP! Call for help. Follow-up with: Dae Malagon MD [Primary Care Provider] -
[2021-07-08] MEDS: oxyCODONE 5 MG TABLET PO PRN (13:13)
--- NOTE | 2021-07-08 13:18 | DISCHARGE SUMMARY ---
Discharge Summary Admit Date: 07/06/21 Discharge Date: 07/08/21 Discharging Provider: Dalton Motta Primary Care Provider: Dae Rodriguez Condition at Discharge: Stable Discharge Disposition: Home Health Service Discharge Facility Name: home - DIAGNOSES Discharge Diagnoses with Status of Each Condition: (1) Acute metabolic encephalopathy resolved. pt is alert and oriented plus 4 (2) UTI (urinary tract infection) UA culture show positive multiple drug resistance E. coli. pt had 1 dose fosfomycin. Patient may keep hydration at home and keep personal hygiene in the home as well. Patient is arranged home health aide (3) Dehydration resolved. (4) Tobacco abuse Strongly advised the patient quit cigarette smoking. (5) COPD (chronic obstructive pulmonary disease) Stable. (6) Chronic kidney disease (CKD) Stable, keep hydration in the home. (7) Chronic pain syndrome X-ray of her hip show no acute process. Resume home Buprenorphine dose , add short term of oxycodone for breakthrough pain as needed. Patient may follow-up with her PCP to continue manage. (8) HTN (hypertension) stable, resume home meds (9) Otitis externa of left ear resolved. (10)weakness Patient had PT and OT evaluation and treatment in the hospital, patient is recommended to have home health PT/OT - HPI History of Present Illness: refer from Dr. Merritt's HPI on 07/06/21 Taken from ED note due to patient's inability to give details of current events: "71-year-old female with a history of recurrent metabolic encephalopathy related to urinary tract infection has again become less interactive and has stopped eating and drinking. The patient is unable to provide any history. Her Edward Alberto is contacted by telephone [phone] and he indicates that Annika went to appointments and was doing well on Wednesday and Wednesday. She had a long appointment on Wednesday up in [place] regarding dentures. The following day she appeared confused and decreased the amount of oral intake and did not take her medications. Her indicates that he normally is placing her medications in her medication boxes with the exception of her Suboxone and that she has been taking them regularly until yesterday." She arrived via ambulance. Per EMS report, she was weak x 2 days and confused, smelling strongly of urine. Patients states she is doing bad. She is having stabbing pain in her bilateral hips. She answers "I don't know" to all further questions. She has a long history of similar presentations, she is admitted and improves after IV fluid administration and antibiotics. - ALLERGIES Allergies/Adverse Reactions: Allergies Allergy/AdvReac Type Severity Reaction Status Date / Time NSAIDS (Non-Steroidal Allergy Mild Hives Verified 07/06/21 11:01 Anti-Inflamma acetaminophen Allergy Hives Verified 07/06/21 11:01 green pepper Allergy Unknown Verified 07/06/21 11:01 lisinopril Allergy Unknown Verified 07/06/21 11:01 Sulfa (Sulfonamide AdvReac Mild Rash Verified 07/06/21 11:01 Antibiotics) - MEDICATIONS Home Medications: Ambulatory Orders Medication Instructions Recorded Confirmed Levothyroxine Sodium 50 mcg PO QDAC #30 07/17/19 07/06/21 gemfibroziL [Gemfibrozil] 600 mg PO BID #60 07/17/19 07/06/21 risperiDONE [Risperdal] 1 mg PO QPM #30 07/17/19 07/06/21 Cholecalciferol [Vitamin D3] 25 mcg PO DAILY 08/15/20 07/06/21 Gabapentin [Neurontin] 100 mg PO TID 08/15/20 07/06/21 Aspirin [Aspirin EC] 81 mg PO DAILY 12/27/20 07/07/21 Docusate Sodium 250Mg Capsule 250 - 500 mg PO DAILY 12/29/20 07/06/21 [Colace 250Mg Capsule] Furosemide [Lasix] 20 mg PO DAILY 03/05/21 07/06/21 Omeprazole Magnesium 20 mg PO DAILY 03/05/21 07/06/21 Propranolol [Inderal] 10 mg PO TID 03/05/21 07/06/21 Venlafaxine HCl 75 mg PO BID 03/05/21 07/06/21 Buprenorphine HCl/Naloxone HCl 1 tab SL TID 03/27/21 07/07/21 [Suboxone 8-2 mg Tab] Metoprolol Succinate [Toprol Xl] 50 mg PO DAILY 07/06/21 07/06/21 Tizanidine HCl 2 mg PO TID 07/06/21 07/06/21 oxyCODONE [Roxicodone] 5 mg PO Q6HR PRN #15 tablet 07/08/21 - PHYSICAL EXAM AT DISCHARGE General Appearance: positive: No acute distress, Alert. negative: Lethargic Eyes Bilateral: positive: Normal inspection, No lid inflammation ENT: positive: ENT inspection nml, No signs of dehydration. negative: Dry mucous membranes Neck: positive: Nml inspection, Trachea midline. negative: Tracheal deviation Respiratory: positive: Chest non-tender, No respiratory distress. negative: Wheezes, Rales Cardiovascular: positive: Regular rate & rhythm. negative: Tachycardia, Bradycardia, Systolic murmur Peripheral Pulses: positive: 2+ Abdomen: positive: Non-tender, Nml bowel sounds, No distention. negative: Tenderness Back: positive: Nml inspection Skin: positive: Color nml, Warm, Dry. negative: Cyanosis Extremities: positive: Non-tender, No pedal edema. negative: Nml appearance Neurologic/Psychiatric: positive: Oriented x3, Motor nml, Sensation nml. negative: Weakness, Sensory loss, Facial droop, Slurred/abnml speech, Depressed mood/affect - LABS Result Diagrams: 07/08/21 08:36 07/08/21 08:36 - FOLLOW UP Follow Up: You are alert and oriented plus 4 on today. You were found to have UTI infection. you were treated with antibiotics in the hospital. You may keep hydration and personal hygiene at home to prevention of your frequent Urinary tract infection. Home health aide is arranged for you. You had PT and OT evaluation the treatment for you in the hospital. You are arranged for home health PT and OT For your strengths and prevention of fall in the home. You had an x-ray for your hip, no acute process was found. You are prescripted pain medication oxycodone as needed, and Follow-up with home health PT and OT. You may follow-up with your PCP in 1 to 2 weeks. should your symptoms return or worse, you may present to the ER or call 911 for help - TIME SPENT Time Spent in Discharge (Minutes): 30
[2021-07-08 15:28] VITALS: BP 144/50
== END 2021-07-08 16:00 | disposition home health service (06) | DRG 689 ==
LOC: EDUNIT# → ED 10:52 → MS2 13:09
PROVIDERS: ADMIT Specialist; ATTEND Nurse Practitioner Gerontology
DX: N30.01 Acute cystitis with hematuria (principal); G93.41 Metabolic encephalopathy; Z16.24 Resistance to multiple antibiotics; I10 Essential (primary) hypertension; E78.00 Pure hypercholesterolemia, unspecified; B96.20 Unspecified Escherichia coli [E. coli] as the cause of diseases classified elsewhere; E11.9 Type 2 diabetes mellitus without complications; F17.200 Nicotine dependence, unspecified, uncomplicated; Z20.822 Contact with and (suspected) exposure to COVID-19; E86.0 Dehydration; F17.210 Nicotine dependence, cigarettes, uncomplicated; J44.9 Chronic obstructive pulmonary disease, unspecified; I12.9 Hypertensive chronic kidney disease with stage 1 through stage 4 chronic kidney disease, or unspecified chronic kidney disease; E11.22 Type 2 diabetes mellitus with diabetic chronic kidney disease; N18.9 Chronic kidney disease, unspecified; G89.4 Chronic pain syndrome; H60.92 Unspecified otitis externa, left ear; R53.1 Weakness; Z79.891 Long term (current) use of opiate analgesic; M25.551 Pain in right hip; M25.552 Pain in left hip; Z86.718 Personal history of other venous thrombosis and embolism; K21.9 Gastro-esophageal reflux disease without esophagitis; F31.9 Bipolar disorder, unspecified; M54.9 Dorsalgia, unspecified
CPT/HCPCS: 36415; 51701; 70450; 71045; 73502; 80048; 80053; 80178; 80306; 81001; 82607; 82728; 82746; 83540; 83605; 83615; 83690; 84443; 84466; 85025; 85045; 87040; 87086; 87181; 87631; 96360; 97161; 97530; 99284; 99285; A6250; A9270; G0480; J0592; J1650; J8499; 0202U; 80320; 81003

== ENCOUNTER 2021-07-19 17:22 | Outpatient (CLI) | payer MEDICARE, MEDICAID | END 2021-07-19 17:23 | disposition critical access hospital (66) | LOC: EMS 17:22 | DX: M79.662 Pain in left lower leg (principal); M79.661 Pain in right lower leg | CPT/HCPCS: A0425; A0429 ==

== ENCOUNTER 2021-07-19 17:55 | Inpatient (IN) | payer MEDICARE, MEDICAID ==
--- NOTE | 2021-07-19 18:07 | ED Physician Documentation ---
History of Present Illness - Stated complaint Stated Complaint: LEG PX - Additonal information Additional information: 71-year-old female is brought to the emergency department via EMS for evaluation of lower abdominal pain and bilateral leg pain. Seen recently at this hospital on 06 July diagnosed with encephalopathy secondary to UTI and had a brief admission. Since discharge she has not taken her antibiotics. Previous presentations have been similar. History is very limited as patient is simply moaning. She believes that the month is April. She is unable to meaningfully participate in the history and exam however she does not appear to have any focal neuro deficits. Patient does smell heavily of cannabis and previous urine tox was positive for cannabis. In discussion with her Edward he reports that when well she is alert pleasant and kind. He is not sure why but she has not taken any of the antibiotics prescribed for her after discharge. She prefers to keep her pill bottles for the antibiotics separate from her daily medications. Over the last few days she has become increasingly agitated and now confused. 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 TEACHER: None : Incontinence, Chronic bladder infection HEENT: None Psych: Anxiety, Bipolar disorder, Other Musculoskeletal: Osteoarthritis, Fatigue, Chronic back pain, Other Derm: Other - Past Surgical History Past Surgical History: Yes General: EGD, Colonoscopy Ortho: Knee replacement, 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 HEENT: Tonsil/Adenoidectomy - Present Medications Home Medications: Ambulatory Orders Medication Instructions Recorded Confirmed Levothyroxine Sodium 50 mcg PO QDAC #30 07/17/19 07/06/21 gemfibroziL [Gemfibrozil] 600 mg PO BID #60 07/17/19 07/06/21 risperiDONE [Risperdal] 1 mg PO QPM #30 07/17/19 07/06/21 Cholecalciferol [Vitamin D3] 25 mcg PO DAILY 08/15/20 07/06/21 Gabapentin [Neurontin] 100 mg PO TID 08/15/20 07/06/21 Aspirin [Aspirin EC] 81 mg PO DAILY 12/27/20 07/07/21 Docusate Sodium 250Mg Capsule 250 - 500 mg PO DAILY 12/29/20 07/06/21 [Colace 250Mg Capsule] Furosemide [Lasix] 20 mg PO DAILY 03/05/21 07/06/21 Omeprazole Magnesium 20 mg PO DAILY 03/05/21 07/06/21 Propranolol [Inderal] 10 mg PO TID 03/05/21 07/06/21 Venlafaxine HCl 75 mg PO BID 03/05/21 07/06/21 Buprenorphine HCl/Naloxone HCl 1 tab SL TID 03/27/21 07/07/21 [Suboxone 8-2 mg Tab] Metoprolol Succinate [Toprol Xl] 50 mg PO DAILY 07/06/21 07/06/21 Tizanidine HCl 2 mg PO TID 07/06/21 07/06/21 oxyCODONE [Roxicodone] 5 mg PO Q6HR PRN #15 tablet 07/08/21 - Allergies Allergies/Adverse Reactions: Allergies Allergy/AdvReac Type Severity Reaction Status Date / Time NSAIDS (Non-Steroidal Allergy Mild Hives Verified 07/06/21 11:01 Anti-Inflamma acetaminophen Allergy Hives Verified 07/06/21 11:01 green pepper Allergy Unknown Verified 07/06/21 11:01 lisinopril Allergy Unknown Verified 07/06/21 11:01 Sulfa (Sulfonamide AdvReac Mild Rash Verified 07/06/21 11:01 Antibiotics) - Social History Does the pt smoke?: Yes Smoking Status: Never smoker Does the pt drink ETOH?: No Does the pt have substance abuse?: No - Immunizations Immunizations are current?: Yes Immunizations: TDAP >10years/unknown - POLST Patient has POLST: No POLST Status: Full Code PD ED PE EXPANDED - General General: Alert, Disheveled, poorly kept (Very poor hygiene. Clothing is saturated in urine. Smells heavily of urine and cannabis.), In Pain, In distress - Cardiac Cardiac: Regular Rate, Radial strong equal, Pedal strong equal, Cap refill < 2 sec - Respiratory Respiratory: Clear to ausultation cynthia. No: Distress - Abdomen Abdomen: Normal Bowel sounds, Distended, Tender to palpation (rebound tenderness lower abdomen. ) - Derm Derm: Normal color, Warm and dry - Extremities Extremities: Pedal edema bilateral, Other (generalized anasarca lower extremities and arms) - Neuro Neuro: Confused, CNII-XII intact, Other (Oriented to person and place but not time. Able to differentiate 2 and 4 fingers. No obvious focal neuro deficits.) - GCS Eye Opening: Spontaneous Motor: Obeys Commands Verbal: Confused Total: 14 Results - Vitals Vitals: Vital Signs - 24 hr 07/19/21 07/19/21 18:02 19:12 Temperature 98.8 C H Heart Rate 69 60 Respiratory 32 H 18 Rate Blood Pressure 203/86 H 177/59 H O2 Saturation 97 98 Oxygen O2 Source [] Room air O2 Source Room air - Labs Labs: Laboratory Tests 07/19/21 07/19/21 07/19/21 18:15 18:15 18:18 WBC 8.0 RBC 3.89 L Hgb 11.2 L Hct 35.9 L MCV 92.3 MCH 28.8 MCHC 31.2 L RDW 15.3 H Plt Count 363 MPV 9.9 Neut # (Auto) 6.7 H Lymph # (Auto) 0.7 L [place] # (Auto) 0.5 Eos # (Auto) 0.1 Baso # (Auto) 0.0 Absolute Nucleated RBC 0.00 Nucleated RBC % 0.0 Sodium 146 H Potassium 4.5 Chloride 108 Carbon Dioxide 24 Anion Gap 14.0 H BUN 42 H Creatinine 2.0 H Estimated GFR (MDRD) 25 L Glucose 129 H Calcium 10.1 Total Bilirubin 0.3 AST 15 ALT < 10 L Alkaline Phosphatase 153 H Total Protein 7.8 Albumin 3.6 Globulin 4.2 Albumin/Globulin Ratio 0.9 L Lipase 25 Urine Color LIGHT YELLOW Urine Clarity CLOUDY Urine pH 6.0 Ur Specific [place] 1.010 Urine Protein TRACE Urine Glucose (UA) NEGATIVE Urine Ketones NEGATIVE Urine Occult Blood LARGE H Urine Nitrite NEGATIVE Urine Bilirubin NEGATIVE Urine Urobilinogen 0.2 (NORMAL) Ur Leukocyte Esterase LARGE H Urine RBC 6-10 H Urine WBC >25 H Ur Squamous Epith Cells RARE Squamous Urine Bacteria Few Ur Microscopic Review INDICATED Urine Culture Comments INDICATED - Rads (name of study) cxr Radiology: Final report received (no acute ardiopulmonary process) CT abd Radiology: Final report received (No acute finding. Large rectal stool ball which appears into the pitted along with moderate volume stool in the sigmoid colon. This represents a potential source of abdominal pain) PD MEDICAL DECISION MAKING - ED course Complexity details: reviewed old records, reviewed results, re-evaluated patient ED course: 71-year-old female who has multiple comorbidities including diabetes, hypertension and COPD presents to the emergency department with altered mental status and lower abdominal pain. Seen recently for similar found to have UTI associated metabolic encephalopathy. She did not take her antibiotics upon discharge. Today she presents confused to place and time. She has no obvious focal neuro deficits however. Screening labs showed no leukocytosis but her urine continues to be consistent with infection. Recent microbiology showed a pansensitive E. coli. Thus she was given ceftriaxone here in the emergency department. Her electrolytes do show a modest hypernatremia as well as an unchanged chronic kidney disease with a creatinine of 2.0. Noncontrast CT of the abdomen did not show any acute findings though she is modestly obstipated which may be causing some mild bladder outlet obstruction. I have ordered a fleets mineral enema here in the emergency department. Does not present as septic per se. Blood cultures were deferred. Patient was presented to Dr. Andrea for admission and she graciously agrees to accept. This was discussed with her Edward who is in agreement. Departure - Departure Disposition: [address] [facility] DC/Xfer Clinical Impression: Metabolic encephalopathy Urinary tract infection Qualifiers: Urinary tract infection type: acute cystitis Hematuria presence: without hematuria Qualified Code(s): N30.00 - Acute cystitis without hematuria
[2021-07-19] MEDS ORDERED: HYDROmorphone 1 MG/ML CARPUJECT IVP STA ×2 (18:10→18:35)
[2021-07-19 18:34] LABS: BILIRUBIN,URINE NEGATIVE (NEGATIVE); GLUCOSE, URINE (UA) NEGATIVE (NEGATIVE); KETONES,URINE (UA) NEGATIVE (NEGATIVE); LEUKOCYTE ESTERASE, URINE LARGE (NEGATIVE); NITRITE,URINE NEGATIVE (NEGATIVE); OCCULT BLOOD,URINE LARGE (NEGATIVE); PROTEIN,URINE TRACE mg/dL (NEGATIVE); UROBILINOGEN,URINE 0.2 (NORMAL) E.U./dL (NORMAL)
[2021-07-19 18:35] LABS: BASOPHILS % (AUTO) 0.4 %; EOSINOPHILS # (AUTO) 0.1 10^3/uL (0.0-0.7); HCT - HEMATOCRIT 35.9 % (37.0-47.0); HGB - HEMOGLOBIN 11.2 g/dL (12.0-16.0); LYMPHOCYTES # (AUTO) 0.7 10^3/uL (1.5-3.5); LYMPHOCYTES % (AUTO) 8.1 %; MEAN CORPUSCULAR HEMOGLOBIN 28.8 pg (27.0-31.0); MEAN CORPUSCULAR HGB CONC 31.2 g/dL (32.0-36.0); MEAN CORPUSCULAR VOLUME 92.3 fL (81.0-99.0); MEAN PLATELET VOLUME 9.9 fL (7.9-10.8); MONOCYTES # (AUTO) 0.5 10^3/uL (0.0-1.0); MONOCYTES % (AUTO) 6.4 %; NEUTROPHILS # (AUTO) 6.7 10^3/uL (1.5-6.6); NEUTROPHILS % (AUTO) 83.6 %; PLT - PLATELET COUNT 363 10^3/uL (130-450); RED BLOOD COUNT 3.89 10^6/uL (4.20-5.40); RED CELL DISTRIBUTION WIDTH 15.3 % (12.0-15.0)
[2021-07-19 18:37] LABS: CLARITY,URINE CLOUDY (CLEAR)
[2021-07-19 18:43] LABS: BACTERIA,URINE Few /HPF (None Seen); SQUAMOUS EPITHELIAL CELL,UR RARE Squamous (<= Few); WBC,URINE >25 /HPF (0-5)
[2021-07-19 18:45] LABS: ALBUMIN 3.6 g/dL (3.2-5.5); ALBUMIN/GLOBULIN RATIO 0.9 (1.0-2.2); ALKALINE PHOSPHATASE 153 IU/L (42-121); ALT ALANINE AMINOTRANSFERASE < 10 IU/L (10-60); AST ASPARTATE AMINOTRANSFERASE 15 IU/L (10-42); BILIRUBIN,TOTAL 0.3 mg/dL (0.2-1.0); BUN - BLOOD UREA NITROGEN 42 mg/dL (6-20); CALCIUM 10.1 mg/dL (8.5-10.3); CARBON DIOXIDE - CO2 24 mmol/L (21-32); CHLORIDE 108 mmol/L (101-111); GFR - MDRD 25 (>89); GLUCOSE 129 mg/dL (70-100); LIPASE 25 U/L (22-51); POTASSIUM 4.5 mmol/L (3.5-5.0); SODIUM 146 mmol/L (135-145); TOTAL PROTEIN 7.8 g/dL (6.7-8.2)
[2021-07-19] MEDS ORDERED: SODIUM CHLORIDE 0.9% 1,000 ML IV STA (18:48)
[2021-07-19] MEDS ORDERED: cefTRIAXone 1 GM in SODIUM CHLORIDE 0.9% MINIBAG 100 ML IV STA (18:50)
--- NOTE | 2021-07-19 18:51 | XRAY Report ---
PROCEDURE: Chest 1 View X-Ray INDICATIONS: chest pain TECHNIQUE: One view of the chest was acquired. COMPARISON: 07/07/2019. FINDINGS: Surgical changes and devices: None. Lungs and pleura: No pleural effusions or pneumothorax. Lungs are clear. Mediastinum: Mediastinal contours appear normal. Heart size is normal. Bones and chest wall: No suspicious bony lesions. Overlying soft tissues appear unremarkable. IMPRESSION: No acute cardiopulmonary process demonstrated radiographically. Reviewed by: Gaudencio Cheney MD on 07/19/2021 6:49 PM PDT Approved by: Gaudencio Cheney MD on 07/19/2021 6:49 PM PDT Station ID: [id number]
[2021-07-19] MEDS ORDERED: MINERAL OIL ENEMA 133 ML BOTTLE RC STA (19:01)
[2021-07-19] MEDS ORDERED: cefTRIAXone 1 GM VIAL ONE (19:08)
--- NOTE | 2021-07-19 19:54 | CT Report ---
PROCEDURE: Abdomen/Pelvis WO INDICATIONS: ABD PAIN, ? PYELO TECHNIQUE: Noncontrast 5 mm thick sections acquired from the diaphragms to the symphysis. 5 mm coronal and sagi ttal reformats were then performed. For radiation dose reduction, the following was used: automated exposure control, adjustment of mA and/or kV according to patient size. COMPARISON: None. FINDINGS: Image quality: Excellent. ABDOMEN: Lung bases: Lung bases are clear. Heart size is normal. Solid organs: Liver and spleen are normal in size. Cholecystectomy. Pancreas is normal in contours. No adrenal nodules. Kidneys are normal in size, without hydronephrosis or nephrolithiasis. Peritoneum and bowel: Large volume of formed stool in the distal colon and rectum, with a large stool ball in the rectal vault which appears inspissated. No rectal wall thickening or findings of stercor al colitis or colitis. Sigmoid diverticulosis. No abnormally dilated or thickened loops of bowel. Nodes and vessels: No retroperitoneal or mesenteric adenopathy by size criteria. Aorta and inferior vena cava are normal in caliber. Miscellaneous: No ventral hernias. PELVIS: Genitourinary: Bladder wall thickness is normal. Miscellaneous: No inguinal hernias or adenopathy. Bones: No suspicious bony lesions. No vertebral body compression fractures. IMPRESSION: No acute finding. Large rectal stool ball which appears inspissated along with moderate volume stool in the sigmoid colon. This represents a potential source of abdominal pain. Reviewed by: Gaudencio Cheney MD on 07/19/2021 7:52 PM PDT Approved by: Gaudencio Cheney MD on 07/19/2021 7:52 PM PDT Station ID: [email or web address]
[2021-07-19] MEDS ORDERED: ONDANSETRON ODT 4 MG TABLET TL PRN (20:08)
[2021-07-19] MEDS ORDERED: SODIUM CHLORIDE FLUSH 0.9% 10 ML SYRINGE IVP PRN (20:08)
[2021-07-19 20:10] LABS: B. PARAPERTUSSIS- RESP PCR PAN NOT DETECTED; B. PERTUSSIS- RESP PCR PANEL NOT DETECTED; C. PNEUMONIAE- RESP PCR PANEL NOT DETECTED; CORONAVIRUS 229E-RESP PCR NOT DETECTED; CORONAVIRUS HKU1-RESP PCR NOT DETECTED; CORONAVIRUS NL63-RESP PCR NOT DETECTED; CORONAVIRUS OC43-RESP PCR NOT DETECTED; HUMAN METAPNEUMOVIRUS NOT DETECTED; INFLUENZA A- RESP PCR PANEL NOT DETECTED; INFLUENZA B - RESP PCR PANEL NOT DETECTED; M. PNEUMONIAE- RESP PCR PANEL NOT DETECTED; PARAINFLUENZA VIRUS 1 NOT DETECTED; PARAINFLUENZA VIRUS 2 NOT DETECTED; PARAINFLUENZA VIRUS 3 NOT DETECTED; PARAINFLUENZA VIRUS 4 NOT DETECTED; RHINOVIRUS/ENTEROVIRUS NOT DETECTED; RSV- RESP PCR PANEL NOT DETECTED; SARS-CoV-2 -RESP PCR PANEL NOT DETECTED
[2021-07-19] MEDS ORDERED: SOAP SUDS ENEMA 1 EACH RC PRN (20:14)
[2021-07-19 20:38] LABS: MUDS CUTOFF CONCENTRATIONS CUTOFF CONC BELOW:
[2021-07-19 20:54] LABS: AMPHETAMINE SCREEN,URINE NEGATIVE (NEGATIVE); BARBITURATE SCREEN,UR NEGATIVE (NEGATIVE); BENZODIAZEPINES SCREEN, URINE NEGATIVE (NEGATIVE); COCAINE SCREEN URINE NEGATIVE (NEGATIVE); METHADONE SCREEN, URINE NEGATIVE (NEGATIVE); METHAMPHETAMINES SCREEN, URINE NEGATIVE (NEGATIVE); OPIATE SCREEN, URINE NEGATIVE (NEGATIVE); OXYCODONE SCREEN, URINE NEGATIVE (NEGATIVE); PROPOXYPHENE SCREEN, URINE NEGATIVE (NEGATIVE); THC CANNABINOID SCREEN, URINE NEGATIVE (NEGATIVE); TRICYCLIC ANTIDEPRESSANT,URINE NEGATIVE (NEGATIVE)
[2021-07-19] MEDS ORDERED: LACTATED RINGERS 1,000 ML IV SCH (21:00)
[2021-07-19] MEDS: VENLAFAXINE 37.5 MG TABLET PO SCH (21:30)
[2021-07-19] MEDS: risperiDONE 1 MG TABLET PO SCH (21:30)
--- NOTE | 2021-07-19 22:30 | HISTORY & PHYSICAL EXAMINATION ---
Chief Complaint - Chief Complaint Chief Complaint: Metabolic encephalopathy History of Present Illness - Admitted From Admitted From:: ED - History Obtained From Records Reviewed: [facility] History obtained from: ED note Exam Limitations: Pt altered mental status - History of Present Illness HPI Comment/Other: Taken from ED Physician note due to Pt's confusion: "71-year-old female is brought to the emergency department via EMS for evaluation of lower abdominal pain and bilateral leg pain. Seen recently at this hospital on 06 July diagnosed with encephalopathy secondary to UTI and had a brief admission. Since discharge she has not taken her antibiotics. Previous presentations have been similar. History is very limited as patient is simply moaning. She believes that the month is April. She is unable to meaningfully participate in the history and exam however she does not appear to have any focal neuro deficits. Patient does smell heavily of cannabis and previous urine tox was positive for cannabis. In discussion with her Edward he reports that when well she is alert pleasant and kind. He is not sure why but she has not taken any of the antibiotics prescribed for her after discharge. She prefers to keep her pill bottles for the antibiotics separate from her daily medications. Over the last few days she has become increasingly agitated and now confused." After speaking with the nurses, the patient is able to state her name and now knows the year is 2021 but she does not know her birthday. She endorses suicidal ideation but becomes tearful and states, "I don't want to talk about it." She had told the nurses she has a plan but would not divulge it. She states she did not take any of her medications today. When asked why she did not, she said, "I don't know". She answered the same about taking her prescribed antibiotics. She endorses pain with palpation of her lower legs and her abdomen, but further questioning gets, "I don't know". Constipation questions: "I don't know." She is having dysuria and feels like she has been peeing a lot. She endorses nasal congestion and rhinorrhea that make it hard to breathe through her nose. She is also feeling weak. She denies chest pain, dizziness, and lightheadedness. History - Past Medical History Cardiovascular: reports: Hypertension, High cholesterol, Deep vein thrombosis, Murmur Respiratory: reports: Asthma, COPD, Shortness of breath Neuro: reports: Peripheral neuropathy Endocrine/Autoimmune: reports: Type 2 diabetes GI: reports: GERD, Chronic constipation, Pancreatitis RES COUNSELOR: reports: None : reports: Incontinence, Chronic bladder infection HEENT: reports: None Psych: reports: Anxiety, Bipolar disorder, Other Musculoskeletal: reports: Osteoarthritis, Fatigue, Chronic back pain, Other Derm: reports: Other MRSA Hx?: No - Past Surgical History General: reports: EGD, Colonoscopy Ortho: reports: Knee replacement, Spine surgery /RES COUNSELOR: reports: section HEENT: reports: Tonsil/Adenoidectomy - Family & Social History Family History: Mother: , CAD, Father: , CAD Family History Comment/Other: Both mother and father of heart disease at the age of 57. Living Situation: With spouse/s.o. Social History Notes: She smoked 1ppd and now down to 1-2 cigs a day. Uses CBD cannabis oil sublingual. She does not drink alcohol and no hx of alcohol abuse. Did abuse prescription meds but that problem has been addressed by her PCP. No hx of other recreational abuse. - Substance History Use: Uses substance without health or social issues: Tobacco (hx) - POLST Patient has POLST: No POLST Status: Full Code Meds/Allgy - Home Medications Home Medications: Ambulatory Orders Medication Instructions Recorded Confirmed Levothyroxine Sodium 50 mcg PO QDAC #30 07/17/19 07/06/21 gemfibroziL [Gemfibrozil] 600 mg PO BID #60 07/17/19 07/06/21 risperiDONE [Risperdal] 1 mg PO QPM #30 07/17/19 07/06/21 Cholecalciferol [Vitamin D3] 25 mcg PO DAILY 08/15/20 07/06/21 Gabapentin [Neurontin] 100 mg PO TID 08/15/20 07/06/21 Aspirin [Aspirin EC] 81 mg PO DAILY 12/27/20 07/07/21 Docusate Sodium 250Mg Capsule 250 - 500 mg PO DAILY 12/29/20 07/06/21 [Colace 250Mg Capsule] Furosemide [Lasix] 20 mg PO DAILY 03/05/21 07/06/21 Omeprazole Magnesium 20 mg PO DAILY 03/05/21 07/06/21 Propranolol [Inderal] 10 mg PO TID 03/05/21 07/06/21 Venlafaxine HCl 75 mg PO BID 03/05/21 07/06/21 Buprenorphine HCl/Naloxone HCl 1 tab SL TID 03/27/21 07/07/21 [Suboxone 8-2 mg Tab] Metoprolol Succinate [Toprol Xl] 50 mg PO DAILY 07/06/21 07/06/21 Tizanidine HCl 2 mg PO TID 07/06/21 07/06/21 oxyCODONE [Roxicodone] 5 mg PO Q6HR PRN #15 tablet 07/08/21 - Allergies Allergies/Adverse Reactions: Allergies Allergy/AdvReac Type Severity Reaction Status Date / Time NSAIDS (Non-Steroidal Allergy Mild Hives Verified 07/06/21 11:01 Anti-Inflamma acetaminophen Allergy Hives Verified 07/06/21 11:01 green pepper Allergy Unknown Verified 07/06/21 11:01 lisinopril Allergy Unknown Verified 07/06/21 11:01 Sulfa (Sulfonamide AdvReac Mild Rash Verified 07/06/21 11:01 Antibiotics) Review of Systems - Constitutional Constitutional: reports: Weakness - Ears, Nose & Throat Ears, Nose & Throat: reports: Nasal discharge, Nasal congestion - Cardiovascular Cariovascular: denies: Chest pain, Lightheadedness - Respiratory Respiratory: reports: Cough. denies: SOB at rest - Gastrointestinal Gastrointestinal: reports: Abdominal pain - Genitourinary Genitourinary: reports: Dysuria, Frequency, Incontinence - Neurological Neurological: reports: General weakness. denies: Dizziness - Psychiatric Psychiatric: reports: Depression, Suicidal - Endocrine Endocrine: reports: Polyuria - Hematologic/Lymphatic Hematologic/Lymphatic: reports: Bruising Prior Level of Functionality: She has home health aides who assist her with ADLs. She is normally conv ersational and able to appropriately answer all questions. Exam - Vital Signs Reviewed Vital Signs: Yes Vital Signs: Vital Signs x48h Temp Pulse Pulse Resp BP BP Pulse Ox 07/19/21 20:49 36.3 C L 76 20 159/73 H 99 07/19/21 19:12 60 18 177/59 H 98 07/19/21 18:02 98.8 C H 69 32 H 203/86 H 97 - Physical Exam General Appearance: positive: Mild distress, Lethargic Eyes Bilateral: positive: Normal inspection, PERRL, EOMI ENT: positive: Dry mucous membranes Neck: positive: Trachea midline. negative: Stiff neck Respiratory: positive: Chest non-tender, No respiratory distress, Wheezes (Bilateral apical whistling sound at end of expiration.), Rhonchi (In bilateral bases, but difficult to auscultate over pt's expiratory moaning.) Cardiovascular: positive: Regular rate & rhythm, No gallop, Systolic murmur (Soft, radiating to R 2nd intercostal space.) Peripheral Pulses: positive: 1+ Abdomen: positive: Nml bowel sounds, No distention, Tenderness (with palpation. Non-focal.). negative: Guarding, Mass Back: positive: Nml inspection Skin: positive: Color nml, No rash, Warm, Dry, Other (Decreased turgor. Scattered bruising on arms/hands.) Extremities: positive: Pedal edema (Slight, non-pitting.) Neurologic/Psychiatric: positive: CN's nml (2-12) (Grossly), Motor nml, Sensation nml, Disoriented to time, Depressed mood/affect. negative: Facial droop, Slurred/abnml speech Comments/Other: Resting in bed in a hospital gown with her hair flying out of a neat braid. She is alert to voice and lethargic. She answers questions but is not engaged in conversation. She tends to recycle answers to different questions, saying "tw[age]" as the year and the current president. She was tearful when talking about her suicidal ideation and refused to answer questions but recovered in a minute or two. She was able to sit up away from the bed on her own but was unable to hold that position for more than 15 seconds. When adjusting herself in bed she is able to pull on my hand with normal appearing strength. Conclusion/Plan - Problem List (1) Metabolic encephalopathy Conclusion/Plan: Pt's confusion likely related to urinary tract infection and dehydration. Tongue and oral mucosa appear dry. Decreased skin turgor as well. UTI being treated empirically with ceftriaxone until culture and sensitivity return. Due to hypernatremia, rehydating with 2L D5 at 100mL/hr. BMP and CBC scheduled in the morning to follow infection/treatment response. (2) UTI (urinary tract infection) Conclusion/Plan: Clean catch urine cloudy with large occult blood, large leukocyte esterase and >25 WBCs is consistent with UTI. No fever or leukocytosis at this time. Treating empirically with ceftriaxone. Will monitor for mental status improvement and signs of infection. Qualifiers: Urinary tract infection type: acute cystitis Hematuria presence: without hematuria Qualified Code(s): N30.00 - Acute cystitis without hematuria (3) Suicidal ideation Conclusion/Plan: Endorsed SI with plan but would not state plan, saying, "I don't want to talk about it." Patient came without belongings and changed into hospital gown. Patient resting quietly. Following hospital policy for sitter. Social work to meet with her tomorrow and DCR notified. (4) Dehydration Conclusion/Plan: Dry oral mucous membranes and decreased skin turgor suggest marked dehydration. BUN 42 and creatinine 2.0 on admission. BUN range of 21-50 over the last year with many in the low to mid 20s. Creatinine appears to be near baseline with 1.8 minimum over the last several years and average above 2. Ratio of 20:1 also suggests dehydration. Due to hypernatremia, IV resusitating with 2L D5. Encouraging oral intake tomorrow and continuing fluid resusitation if no signs of clinical improvement or decrease in BUN. (5) Hypernatremia Conclusion/Plan: Mild hypernatremia with sodium 146 on admission. Likely secondary to dehydratio n. Fluid resuscitation with d5 along with orals. (6) Constipation Conclusion/Plan: Abdominal pain on arrival. CT abd/pelvis showed "large volume of formed stool in the distal colon and rectum, with a large stool ball in the rectal vault which appears inspissated..." Treating with soap suds enema as needed. Qualifiers: Constipation type: unspecified constipation type Qualified Code(s): K59.00 - Constipation, unspecified (7) Diabetes mellitus type 2, diet-controlled Conclusion/Plan: Glucose 129 on admission. Daily chemistry checks. Diabetic diet ordered. Will give insulin on sliding scale. (8) HTN (hypertension) Conclusion/Plan: 159/73 on admission. Continued home metoprolol. Holding furosemide at this time due to dehydration. Qualifiers: Hypertension type: primary hypertension Qualified Code(s): I10 - Essential (primary) hypertension (9) Weakness Conclusion/Plan: Likely secondary to dehydration. Repleting fluids. Will encourage ambulation and continue to monitor. - Lab Results Lab results reviewed: Yes Fish Bones: 07/19/21 18:15 07/19/21 18:15 - Diagnostic Imaging Results Diagnostic Imaging Results: positive: Final report reviewed Core Measures - Anticipated LOS I expect patient to be DC'd or transferred within 96 hours.: Yes - DVT/VTE - Prophylaxis VTE/DVT Device ordered at admit?: No Not Ordered - Patient Reason: Refusal by patient VTE/DVT Prophylaxis med ordered at admit?: Yes - AMI - Statin at Admit Aspirin Prescribed on Admit: No
[2021-07-19] MEDS: DEXTROSE 5% 1,000 ML IV SCH (22:32)
[2021-07-20] MEDS: SODIUM CHLORIDE FLUSH 0.9% 10 ML SYRINGE IVP SCH ×3 (00:12→18:39)
[2021-07-20 05:44] LABS: BASOPHILS % (AUTO) 0.4 %; EOSINOPHILS # (AUTO) 0.1 10^3/uL (0.0-0.7); EOSINOPHILS % (AUTO) 2.1 %; HGB - HEMOGLOBIN 10.2 g/dL (12.0-16.0); LYMPHOCYTES % (AUTO) 18.2 %; MEAN CORPUSCULAR HEMOGLOBIN 29.7 pg (27.0-31.0); MEAN CORPUSCULAR HGB CONC 31.9 g/dL (32.0-36.0); MEAN PLATELET VOLUME 10.2 fL (7.9-10.8); MONOCYTES # (AUTO) 0.5 10^3/uL (0.0-1.0); MONOCYTES % (AUTO) 8.2 %; NEUTROPHILS % (AUTO) 70.7 %; PLT - PLATELET COUNT 323 10^3/uL (130-450); RED BLOOD COUNT 3.44 10^6/uL (4.20-5.40); RED CELL DISTRIBUTION WIDTH 15.3 % (12.0-15.0); WHITE BLOOD COUNT 5.6 x10^3/uL (4.8-10.8)
[2021-07-20 05:50] LABS: CALCIUM 9.4 mg/dL (8.5-10.3); CREATININE 1.6 mg/dL (0.4-1.0); POTASSIUM 4.4 mmol/L (3.5-5.0)
[2021-07-20] MEDS: LEVOTHYROXINE 25 MCG TABLET PO SCH (06:05)
--- NOTE | 2021-07-20 07:56 | PHARMACY PROGRESS NOTE ---
- Best Possible Medication History Admit Date and Time: 07/19/212007 Processed by: Pharmacy Medication History completed: Yes Patient Interview: Pt unable to participate Secondary Source(s): Physician records, Pharmacy records, Insurance records, Previous admit records As the person ultimately responsible for medication therapy, providers are able to order a medication from an existing home medication list in [facility] via the "Reconcile Routine" prior to Confirmation of that medication by learning support specialist. Such practice is discouraged except when the physician, in their clinical judgment, deems that a medical need exists for a medication without regard to previous use.
[2021-07-20] MEDS: BUPRENORPHINE/NALOXONE 8-2 MG TAB SL SCH ×3 (08:16→22:36)
[2021-07-20] MEDS: DEXTROSE 5% 1,000 ML IV SCH (08:18)
[2021-07-20] MEDS: INSULIN ASPART 300 UNIT/3 ML PEN SUBQ SCH ×4 (08:19→21:24)
[2021-07-20] MEDS ORDERED: cefTRIAXone 1 GM in SODIUM CHLORIDE 0.9% MINIBAG 100 ML IV SCH (09:00)
[2021-07-20] MEDS: ENOXAPARIN 40 MG/0.4 ML SYRINGE SUBQ SCH (09:17)
[2021-07-20] MEDS: NICOTINE 7 MG PATCH TOP SCH (09:17)
[2021-07-20] MEDS: METOPROLOL SUCCINATE 50 MG TABLET PO SCH (09:17)
[2021-07-20] MEDS: VENLAFAXINE 37.5 MG TABLET PO SCH ×2 (09:18→22:05)
[2021-07-20] MEDS: polyethylene glycoL 3350 17 GM PACKET PO SCH (09:18)
[2021-07-20] MEDS: oxyCODONE 5 MG TABLET PO PRN ×3 (09:25→17:25)
[2021-07-20 11:36] LABS: ESTIMATED AVERAGE GLUCOSE 123 mg/dL (70-100); HEMOGLOBIN A1c% 5.9 % (4.27-6.07)
--- NOTE | 2021-07-20 15:05 | PROVIDER PROGRESS NOTE ---
Subjective - Prog Note Date Prog Note Date: 07/20/21 - Subjective Subjective: She states she is not happy with her home situation. She would like her cannot care for her. She states she is depressed and has had suicidal ideations but currently denies this while she is here at the hospital. She complains of chronic left-sided leg pain. Current Medications - Current Medications Current Medications: Active Medications Aspirin (Aspirin Ec 81 Mg Tablet) 81 mg PO DAILY [facility] Buprenorphine HCl (Buprenorphine/Naloxone 8-2 Mg Tab) 1 tab SL TID [facility] Last Admin: 07/20/21 13:47 Dose: 1 tab Enoxaparin Sodium (Enoxaparin 40 Mg/0.4 Ml Syringe) 40 mg SUBQ DAILY [facility] Last Admin: 07/20/21 09:17 Dose: 40 mg Gabapentin (Gabapentin 100 Mg Capsule) 100 mg PO TID [facility] Insulin Aspart (Insulin Aspart 300 Unit/3 Ml Pen) 1 - 9 unit SUBQ 0800,1200,1700,2100 [facility]; Protocol Last Admin: 07/20/21 12:09 Dose: 3 unit Levothyroxine Sodium (Levothyroxine 25 Mcg Tablet) 50 mcg PO QDAC [facility] Last Admin: 07/20/21 06:05 Dose: 50 mcg Metoprolol Succinate (Metoprolol Succinate 50 Mg Tablet) 50 mg PO DAILY [facility] Last Admin: 07/20/21 09:17 Dose: 50 mg Metoprolol Succinate (Metoprolol Succinate 50 Mg Tablet) 50 mg PO DAILY [facility] Nicotine (Nicotine 7 Mg Patch) 1 patch TOP DAILY [facility] Last Admin: 07/20/21 09:17 Dose: 1 patch Non-Formulary Medication (Buprenorphine Hcl/Naloxone Hcl) 1 tab SL TID [facility] Non-Formulary Medication (Omeprazole Magnesium [Omeprazole Magnesium]) 20 mg PO DAILY [facility] Non-Formulary Medication (Venlafaxine Hcl [Venlafaxine Hcl]) 75 mg PO BID [facility] Ondansetron HCl (Ondansetron Odt 4 Mg Tablet) 4 mg TL Q6HR PRN PRN Reason: Nausea / Vomiting Oxycodone HCl (Oxycodone 5 Mg Tablet) 5 mg PO Q4HR PRN PRN Reason: Pain 5 to 7 Last Admin: 07/20/21 13:24 Dose: 5 mg Polyethylene Glycol (Polyethylene Glycol 3350 17 Gm Packet) 17 gm PO DAILY [facility] Last Admin: 07/20/21 09:18 Dose: 17 gm Risperidone (Risperidone 1 Mg Tablet) 1 mg PO QPM [facility] Last Admin: 07/19/21 21:30 Dose: 1 mg Risperidone (Risperidone 1 Mg Tablet) 1 mg PO QPM [facility] Soap Free Cleanser (Soap Suds Enema 1 Each) 1 each RC QID PRN PRN Reason: Constipation Sodium Chloride (Sodium Chloride Flush 0.9% 10 Ml Syringe) 10 ml IVP PRN PRN PRN Reason: NEEDED PER PROVIDER ORDERS Sodium Chloride (Sodium Chloride Flush 0.9% 10 Ml Syringe) 10 ml IVP 0100,0900,1700 [facility] Last Admin: 07/20/21 09:18 Dose: 10 ml Venlafaxine HCl (Venlafaxine 37.5 Mg Tablet) 75 mg PO BID [facility] Last Admin: 07/20/21 09:18 Dose: 75 mg Cholecalciferol [Vitamin D3] 25 mcg PO DAILY 08/15/20 Gabapentin [Neurontin] 100 mg PO TID 08/15/20 Aspirin [Aspirin EC] 81 mg PO DAILY 12/27/20 Furosemide [Lasix] 20 mg PO DAILY 03/05/21 Omeprazole Magnesium 20 mg PO DAILY 03/05/21 Propranolol [Inderal] 10 mg PO TID 03/05/21 Venlafaxine HCl 75 mg PO BID 03/05/21 Buprenorphine HCl/Naloxone HCl [Suboxone 8-2 mg Tab] 1 tab SL TID 03/27/21 Metoprolol Succinate [Toprol Xl] 50 mg PO DAILY 07/06/21 Tizanidine HCl 2 mg PO TID 07/06/21 Objective - Vital Signs/Intake & Output Reviewed Vital Signs: Yes Vital Signs: Vital Signs x48h Temp Pulse Resp BP Pulse Ox 07/20/21 07:37 36.3 C L 59 L 17 166/57 H 96 Intake & Output: Intake & Output 07/17/21 07/18/21 07/19/21 07/20/21 23:59 23:59 23:59 23:59 Intake Total 0569.253 0274.667 Balance 7098.302 6847.667 - Objective General Appearance: positive: Other (She became quite tearful when I spoke with her.) Eyes Bilateral: positive: Conjunctivae nml ENT: positive: ENT inspection nml Respiratory: positive: No respiratory distress. negative: Wheezes, Rales Cardiovascular: positive: Regular rate & rhythm. negative: Tachycardia Abdomen: positive: No distention. negative: Tenderness Skin: positive: Warm, Dry Extremities: positive: No pedal edema, Other (No tenderness, erythema or edema over the left hip or lower extremity.) Neurologic/Psychiatric: positive: Other (She is oriented to year but not to the month. She thought it was June when it is July.). negative: Disoriented to person, Disoriented to place, Sensory loss - Lab Results Fish Bones: 07/20/21 05:20 07/20/21 05:20 Other Labs: Lab Results x24hrs 07/20/21 07/20/21 07/20/21 Range/Units 05:20 05:20 05:20 WBC 5.6 (4.8-10.8) x10^3/uL RBC 3.44 L (4.20-5.40) 10^6/uL Hgb 10.2 L (12.0-16.0) g/dL Hct 32.0 L (37.0-47.0) % MCV 93.0 (81.0-99.0) fL MCH 29.7 (27.0-31.0) pg MCHC 31.9 L (32.0-36.0) g/dL RDW 15.3 H (12.0-15.0) % Plt Count 323 (130-450) 10^3/uL MPV 10.2 (7.9-10.8) fL Neut # (Auto) 4.0 (1.5-6.6) 10^3/uL Lymph # (Auto) 1.0 L (1.5-3.5) 10^3/uL [place] # (Auto) 0.5 (0.0-1.0) 10^3/uL Eos # (Auto) 0.1 (0.0-0.7) 10^3/uL Baso # (Auto) 0.0 (0.0-0.1) 10^3/uL Absolute Nucleated RBC 0.00 x10^3/uL Nucleated RBC % 0.0 /100WBC Sodium 145 (135-145) mmol/L Potassium 4.4 (3.5-5.0) mmol/L Chloride 110 (101-111) mmol/L Carbon Dioxide 23 (21-32) mmol/L Anion Gap 12.0 (6-13) BUN 38 H (6-20) mg/dL Creatinine 1.6 H (0.4-1.0) mg/dL Estimated GFR (MDRD) 32 L (>89) Glucose 116 H (70-100) mg/dL Estimat Average Glucose 123 H (70-100) mg/dL Hemoglobin A1c % 5.9 (4.27-6.07) % Calcium 9.4 (8.5-10.3) mg/dL Total Bilirubin (0.2-1.0) mg/dL AST (10-42) IU/L ALT (10-60) IU/L Alkaline Phosphatase (42-121) IU/L Total Protein (6.7-8.2) g/dL Albumin (3.2-5.5) g/dL Globulin (2.1-4.2) g/dL Albumin/Globulin Ratio (1.0-2.2) Lipase (22-51) U/L Urine Color Urine Clarity (CLEAR) Urine pH (5.0-7.5) PH Ur Specific [place] (1.002-1.030) Urine Protein (NEGATIVE) mg/dL Urine Glucose (UA) (NEGATIVE) mg/dL Urine Ketones (NEGATIVE) mg/dL Urine Occult Blood (NEGATIVE) Urine Nitrite (NEGATIVE) Urine Bilirubin (NEGATIVE) Urine Urobilinogen (NORMAL) E.U./dL Ur Leukocyte Esterase (NEGATIVE) Urine RBC (0-5) /HPF Urine WBC (0-5) /HPF Ur Squamous Epith Cells (<= Few) Urine Bacteria (None Seen) /HPF Ur Microscopic Review Urine Culture Comments Nasal Adenovirus (PCR) Nasal B. parapertussis DNA (PCR) Nasal Coronavir 229E PCR Nasal Coronavir HKU1 PCR Nasal Coronavir NL63 PCR Nasal Coronavir OC43 PCR Nasal Enterovir/Rhinovir PCR Nasal Influenza B PCR Nasal Influenza A PCR Nasal Parainfluen 1 PCR Nasal Parainfluen 2 PCR Nasal Parainfluen 3 PCR Nasal Parainfluen 4 PCR Nasal RSV (PCR) Nasal B.pertussis DNA PCR Nasal C.pneumoniae (PCR) Misael Human Metapneumo PCR Nasal M.pneumoniae (PCR) Nasal SARS-CoV-2 (PCR) Urine Opiates Screen (NEGATIVE) Ur Oxycodone Screen (NEGATIVE) Urine Methadone Screen (NEGATIVE) Ur Propoxyphene Screen (NEGATIVE) Ur Barbiturates Screen (NEGATIVE) Ur Tricyclics Screen (NEGATIVE) Ur Phencyclidine Scrn (NEGATIVE) Ur Amphetamine Screen (NEGATIVE) U Methamphetamines Scrn (NEGATIVE) U Benzodiazepines Scrn (NEGATIVE) Urine Cocaine Screen (NEGATIVE) U Cannabinoids Screen (NEGATIVE) 07/19/21 07/19/21 07/19/21 Range/Units 18:18 18:18 18:15 WBC (4.8-10.8) x10^3/uL RBC (4.20-5.40) 10^6/uL Hgb (12.0-16.0) g/dL Hct (37.0-47.0) % MCV (81.0-99.0) fL MCH (27.0-31.0) pg MCHC (32.0-36.0) g/dL RDW (12.0-15.0) % Plt Count (130-450) 10^3/uL MPV (7.9-10.8) fL Neut # (Auto) (1.5-6.6) 10^3/uL Lymph # (Auto) (1.5-3.5) 10^3/uL [place] # (Auto) (0.0-1.0) 10^3/uL Eos # (Auto) (0.0-0.7) 10^3/uL Baso # (Auto) (0.0-0.1) 10^3/uL Absolute Nucleated RBC x10^3/uL Nucleated RBC % /100WBC Sodium (135-145) mmol/L Potassium (3.5-5.0) mmol/L Chloride (101-111) mmol/L Carbon Dioxide (21-32) mmol/L Anion Gap (6-13) BUN (6-20) mg/dL Creatinine (0.4-1.0) mg/dL Estimated GFR (MDRD) (>89) Glucose (70-100) mg/dL Estimat Average Glucose (70-100) mg/dL Hemoglobin A1c % (4.27-6.07) % Calcium (8.5-10.3) mg/dL Total Bilirubin (0.2-1.0) mg/dL AST (10-42) IU/L ALT (10-60) IU/L Alkaline Phosphatase (42-121) IU/L Total Protein (6.7-8.2) g/dL Albumin (3.2-5.5) g/dL Globulin (2.1-4.2) g/dL Albumin/Globulin Ratio (1.0-2.2) Lipase (22-51) U/L Urine Color LIGHT YELLOW Urine Clarity CLOUDY (CLEAR) Urine pH 6.0 (5.0-7.5) PH Ur Specific [place] 1.010 (1.002-1.030) Urine Protein TRACE (NEGATIVE) mg/dL Urine Glucose (UA) NEGATIVE (NEGATIVE) mg/dL Urine Ketones NEGATIVE (NEGATIVE) mg/dL Urine Occult Blood LARGE H (NEGATIVE) Urine Nitrite NEGATIVE (NEGATIVE) Urine Bilirubin NEGATIVE (NEGATIVE) Urine Urobilinogen 0.2 (NORMAL) (NORMAL) E.U./dL Ur Leukocyte Esterase LARGE H (NEGATIVE) Urine RBC 6-10 H (0-5) /HPF Urine WBC >25 H (0-5) /HPF Ur Squamous Epith Cells RARE Squamous (<= Few) Urine Bacteria Few (None Seen) /HPF Ur Microscopic Review INDICATED Urine Culture Comments INDICATED Nasal Adenovirus (PCR) NOT DETECTED Nasal B. parapertussis DNA (PCR) NOT DETECTED Nasal Coronavir 229E PCR NOT DETECTED Nasal Coronavir HKU1 PCR NOT DETECTED Nasal Coronavir NL63 PCR NOT DETECTED Nasal Coronavir OC43 PCR NOT DETECTED Nasal Enterovir/Rhinovir PCR NOT DETECTED Nasal Influenza B PCR NOT DETECTED Nasal Influenza A PCR NOT DETECTED Nasal Parainfluen 1 PCR NOT DETECTED Nasal Parainfluen 2 PCR NOT DETECTED Nasal Parainfluen 3 PCR NOT DETECTED Nasal Parainfluen 4 PCR NOT DETECTED Nasal RSV (PCR) NOT DETECTED Nasal B.pertussis DNA PCR NOT DETECTED Nasal C.pneumoniae (PCR) NOT DETECTED Misael Human Metapneumo PCR NOT DETECTED Nasal M.pneumoniae (PCR) NOT DETECTED Nasal SARS-CoV-2 (PCR) NOT DETECTED Urine Opiates Screen NEGATIVE (NEGATIVE) Ur Oxycodone Screen NEGATIVE (NEGATIVE) Urine Methadone Screen NEGATIVE (NEGATIVE) Ur Propoxyphene Screen NEGATIVE (NEGATIVE) Ur Barbiturates Screen NEGATIVE (NEGATIVE) Ur Tricyclics Screen NEGATIVE (NEGATIVE) Ur Phencyclidine Scrn NEGATIVE (NEGATIVE) Ur Amphetamine Screen NEGATIVE (NEGATIVE) U Methamphetamines Scrn NEGATIVE (NEGATIVE) U Benzodiazepines Scrn NEGATIVE (NEGATIVE) Urine Cocaine Screen NEGATIVE (NEGATIVE) U Cannabinoids Screen NEGATIVE (NEGATIVE) 07/19/21 07/19/21 Range/Units 18:15 18:15 WBC 8.0 (4.8-10.8) x10^3/uL RBC 3.89 L (4.20-5.40) 10^6/uL Hgb 11.2 L (12.0-16.0) g/dL Hct 35.9 L (37.0-47.0) % MCV 92.3 (81.0-99.0) fL MCH 28.8 (27.0-31.0) pg MCHC 31.2 L (32.0-36.0) g/dL RDW 15.3 H (12.0-15.0) % Plt Count 363 (130-450) 10^3/uL MPV 9.9 (7.9-10.8) fL Neut # (Auto) 6.7 H (1.5-6.6) 10^3/uL Lymph # (Auto) 0.7 L (1.5-3.5) 10^3/uL [place] # (Auto) 0.5 (0.0-1.0) 10^3/uL Eos # (Auto) 0.1 (0.0-0.7) 10^3/uL Baso # (Auto) 0.0 (0.0-0.1) 10^3/uL Absolute Nucleated RBC 0.00 x10^3/uL Nucleated RBC % 0.0 /100WBC Sodium 146 H (135-145) mmol/L Potassium 4.5 (3.5-5.0) mmol/L Chloride 108 (101-111) mmol/L Carbon Dioxide 24 (21-32) mmol/L Anion Gap 14.0 H (6-13) BUN 42 H (6-20) mg/dL Creatinine 2.0 H (0.4-1.0) mg/dL Estimated GFR (MDRD) 25 L (>89) Glucose 129 H (70-100) mg/dL Estimat Average Glucose (70-100) mg/dL Hemoglobin A1c % (4.27-6.07) % Calcium 10.1 (8.5-10.3) mg/dL Total Bilirubin 0.3 (0.2-1.0) mg/dL AST 15 (10-42) IU/L ALT < 10 L (10-60) IU/L Alkaline Phosphatase 153 H (42-121) IU/L Total Protein 7.8 (6.7-8.2) g/dL Albumin 3.6 (3.2-5.5) g/dL Globulin 4.2 (2.1-4.2) g/dL Albumin/Globulin Ratio 0.9 L (1.0-2.2) Lipase 25 (22-51) U/L Urine Color Urine Clarity (CLEAR) Urine pH (5.0-7.5) PH Ur Specific [place] (1.002-1.030) Urine Protein (NEGATIVE) mg/dL Urine Glucose (UA) (NEGATIVE) mg/dL Urine Ketones (NEGATIVE) mg/dL Urine Occult Blood (NEGATIVE) Urine Nitrite (NEGATIVE) Urine Bilirubin (NEGATIVE) Urine Urobilinogen (NORMAL) E.U./dL Ur Leukocyte Esterase (NEGATIVE) Urine RBC (0-5) /HPF Urine WBC (0-5) /HPF Ur Squamous Epith Cells (<= Few) Urine Bacteria (None Seen) /HPF Ur Microscopic Review Urine Culture Comments Nasal Adenovirus (PCR) Nasal B. parapertussis DNA (PCR) Nasal Coronavir 229E PCR Nasal Coronavir HKU1 PCR Nasal Coronavir NL63 PCR Nasal Coronavir OC43 PCR Nasal Enterovir/Rhinovir PCR Nasal Influenza B PCR Nasal Influenza A PCR Nasal Parainfluen 1 PCR Nasal Parainfluen 2 PCR Nasal Parainfluen 3 PCR Nasal Parainfluen 4 PCR Nasal RSV (PCR) Nasal B.pertussis DNA PCR Nasal C.pneumoniae (PCR) [place] Human Metapneumo PCR Nasal M.pneumoniae (PCR) Nasal SARS-CoV-2 (PCR) Urine Opiates Screen (NEGATIVE) Ur Oxycodone Screen (NEGATIVE) Urine Methadone Screen (NEGATIVE) Ur Propoxyphene Screen (NEGATIVE) Ur Barbiturates Screen (NEGATIVE) Ur Tricyclics Screen (NEGATIVE) Ur Phencyclidine Scrn (NEGATIVE) Ur Amphetamine Screen (NEGATIVE) U Methamphetamines Scrn (NEGATIVE) U Benzodiazepines Scrn (NEGATIVE) Urine Cocaine Screen (NEGATIVE) U Cannabinoids Screen (NEGATIVE) Assessment/Plan - Problem List (1) Metabolic encephalopathy Impression: This was likely multifactorial and secondary to polypharmacy, dehydration. There was concern for infection and this is felt to be less likely now given urine culture had less than 10,000 colonies. She is much improved today and is able to participate in a conversation. We will resume her home meds but will try and avoid some of the sedatives. She has had multiple admissions for similar presentation and I suspect she may need long-term care or at least SNF again. (2) Hypernatremia Impression: Secondary to decreased free water intake. This is improved after starting D5 water. We will discontinue the D5 water and encourage her to take p.o. (3) Suicidal ideation Impression: She reports suicidal ideations although she currently denies this at this time. This appears to stem from the stress at home and inability to care for herself. Social work has been consulted and we will take a look to see if DCR needs to be dispatched. We will resume her home antidepressants. (4) Chronic kidney disease (CKD) Impression: Appears she may have had mild acute kidney injury on admission as her creatinine was 2.0 which when she thought was her baseline. Her creatinine today is down to 1.6. It was felt that her chronic disease may have been due to lithium which she was previously on but it appears this has been discontinued. We will continue to monitor her renal function and urine output. Qualifiers: Chronic kidney disease stage: unspecified stage Qualified Code(s): N18.9 - Chronic kidney disease, unspecified (5) Chronic pain syndrome Impression: We will resume her home medications. (6) Diabetes mellitus type 2, diet-controlled Impression: Her A1c is 5.9%. Continue with carb controlled diet. (7) Weakness Impression: She uses a walker at baseline suspect this generalized weakness is related to chronic pain, dehydration and physical deconditioning. We will consult PT as I suspect she will likely need SNF or at minimum home health PT. Appreciate social work input. (8) Asymptomatic bacteriuria Impression: There was concern for UTI but the colony count was less than 10,000. We will discontinue ceftriaxone.
[2021-07-20] MEDS ORDERED: GLYCERIN ADULT SUPP PR ONE (16:40)
[2021-07-20] MEDS ORDERED: VENLAFAXINE HCL 75 MG PO SCH (21:00)
[2021-07-20] MEDS ORDERED: risperiDONE 1 MG TABLET PO SCH (21:00)
[2021-07-20] MEDS ORDERED: NALOXONE HCL SL SCH (22:00)
[2021-07-20] MEDS ORDERED: BUPRENORPHINE HCL SL SCH (22:00)
[2021-07-20] MEDS: GABAPENTIN 100 MG CAPSULE PO SCH (22:04)
[2021-07-20] MEDS: risperiDONE 1 MG TABLET PO SCH (22:05)
[2021-07-21 05:26] LABS: BASOPHILS % (AUTO) 0.5 %; EOSINOPHILS # (AUTO) 0.2 10^3/uL (0.0-0.7); HCT - HEMATOCRIT 32.1 % (37.0-47.0); HGB - HEMOGLOBIN 10.2 g/dL (12.0-16.0); LYMPHOCYTES # (AUTO) 0.8 10^3/uL (1.5-3.5); LYMPHOCYTES % (AUTO) 14.2 %; MEAN CORPUSCULAR HEMOGLOBIN 29.3 pg (27.0-31.0); MEAN CORPUSCULAR HGB CONC 31.8 g/dL (32.0-36.0); MEAN CORPUSCULAR VOLUME 92.2 fL (81.0-99.0); MEAN PLATELET VOLUME 9.2 fL (7.9-10.8); MONOCYTES # (AUTO) 0.5 10^3/uL (0.0-1.0); MONOCYTES % (AUTO) 7.9 %; NEUTROPHILS # (AUTO) 4.2 10^3/uL (1.5-6.6); PLT - PLATELET COUNT 275 10^3/uL (130-450); RED BLOOD COUNT 3.48 10^6/uL (4.20-5.40); WHITE BLOOD COUNT 5.7 x10^3/uL (4.8-10.8)
[2021-07-21 05:35] LABS: CALCIUM 9.5 mg/dL (8.5-10.3); CREATININE 1.7 mg/dL (0.4-1.0); POTASSIUM 4.5 mmol/L (3.5-5.0)
[2021-07-21] MEDS ORDERED: ZINC OXIDE 20% OINT 30 GM TUBE TOP PRN (06:08)
[2021-07-21] MEDS: LEVOTHYROXINE 25 MCG TABLET PO SCH (06:36)
[2021-07-21] MEDS: BUPRENORPHINE/NALOXONE 8-2 MG TAB SL SCH ×3 (06:36→21:50)
[2021-07-21] MEDS: PANTOPRAZOLE 40 MG TABLET PO SCH (06:36)
[2021-07-21] MEDS: GABAPENTIN 100 MG CAPSULE PO SCH ×3 (06:36→21:50)
--- NOTE | 2021-07-21 07:48 | PROVIDER PROGRESS NOTE ---
Subjective - Prog Note Date Prog Note Date: 07/21/21 - Subjective Subjective: She feels better today. She is more alert and oriented. She feels like she may be constipated. Still feels depressed but does not have suicidal thoughts right now. Current Medications - Current Medications Current Medications: Active Medications Aspirin (Aspirin Ec 81 Mg Tablet) 81 mg PO DAILY [facility] Last Admin: 07/21/21 08:23 Dose: 81 mg Buprenorphine HCl (Buprenorphine/Naloxone 8-2 Mg Tab) 1 tab SL TID [facility] Last Admin: 07/21/21 13:17 Dose: 1 tab Enoxaparin Sodium (Enoxaparin 40 Mg/0.4 Ml Syringe) 40 mg SUBQ DAILY [facility] Last Admin: 07/21/21 08:23 Dose: 40 mg Gabapentin (Gabapentin 100 Mg Capsule) 100 mg PO TID [facility] Last Admin: 07/21/21 13:17 Dose: 100 mg Insulin Aspart (Insulin Aspart 300 Unit/3 Ml Pen) 1 - 9 unit SUBQ 0800,1200,1700,2100 [facility]; Protocol Last Admin: 07/21/21 17:28 Dose: Not Given Levothyroxine Sodium (Levothyroxine 25 Mcg Tablet) 50 mcg PO QDAC [facility] Last Admin: 07/21/21 06:36 Dose: 50 mcg Metoprolol Succinate (Metoprolol Succinate 50 Mg Tablet) 50 mg PO DAILY [facility] Last Admin: 07/21/21 08:23 Dose: 50 mg Multi-Ingredient Ointment (Zinc Oxide 20% Oint 30 Gm Tube) 1 applic TOP PRN PRN PRN Reason: Skin Care Last Admin: 07/21/21 06:36 Dose: 1 applic Nicotine (Nicotine 7 Mg Patch) 1 patch TOP DAILY [facility] Last Admin: 07/21/21 08:23 Dose: 1 patch Ondansetron HCl (Ondansetron Odt 4 Mg Tablet) 4 mg TL Q6HR PRN PRN Reason: Nausea / Vomiting Last Admin: 07/20/21 21:31 Dose: 4 mg Oxycodone HCl (Oxycodone 5 Mg Tablet) 5 mg PO Q4HR PRN PRN Reason: Pain 5 to 7 Last Admin: 07/21/21 16:19 Dose: 5 mg Pantoprazole Sodium (Pantoprazole 40 Mg Tablet) 40 mg PO QDAC [facility] Last Admin: 07/21/21 06:36 Dose: 40 mg Polyethylene Glycol (Polyethylene Glycol 3350 17 Gm Packet) 17 gm PO DAILY [facility] Last Admin: 07/21/21 08:24 Dose: 17 gm Multivit/Folic Acid/Iron ( Vitamin Tablet) 1 tab PO DAILYWM [facility] Last Admin: 07/21/21 08:24 Dose: 1 tab Risperidone (Risperidone 1 Mg Tablet) 1 mg PO QPM [facility] Last Admin: 07/20/21 22:05 Dose: 1 mg Soap Free Cleanser (Soap Suds Enema 1 Each) 1 each RC QID PRN PRN Reason: Constipation Last Admin: 07/20/21 18:39 Dose: 1 each Sodium Chloride (Sodium Chloride Flush 0.9% 10 Ml Syringe) 10 ml IVP PRN PRN PRN Reason: NEEDED PER PROVIDER ORDERS Sodium Chloride (Sodium Chloride Flush 0.9% 10 Ml Syringe) 10 ml IVP 0100,0900,1700 [facility] Last Admin: 07/21/21 16:19 Dose: 10 ml Venlafaxine HCl (Venlafaxine 37.5 Mg Tablet) 75 mg PO BID [facility] Last Admin: 07/21/21 08:24 Dose: 75 mg Cholecalciferol [Vitamin D3] 25 mcg PO DAILY 08/15/20 Gabapentin [Neurontin] 100 mg PO TID 08/15/20 Aspirin [Aspirin EC] 81 mg PO DAILY 12/27/20 Furosemide [Lasix] 20 mg PO DAILY 03/05/21 Omeprazole Magnesium 20 mg PO DAILY 03/05/21 Propranolol [Inderal] 10 mg PO TID 03/05/21 Venlafaxine HCl 75 mg PO BID 03/05/21 Buprenorphine HCl/Naloxone HCl [Suboxone 8-2 mg Tab] 1 tab SL TID 03/27/21 Metoprolol Succinate [Toprol Xl] 50 mg PO DAILY 07/06/21 Tizanidine HCl 2 mg PO TID 07/06/21 Objective - Vital Signs/Intake & Output Reviewed Vital Signs: Yes Intake & Output: Intake & Output 07/18/21 07/19/21 07/20/21 07/21/21 23:59 23:59 23:59 23:59 Intake Total 2471.195 2540.667 400 Balance 9124.053 8863.667 400 - Objective General Appearance: positive: No acute distress, Alert Eyes Bilateral: positive: Normal inspection, Conjunctivae nml ENT: positive: ENT inspection nml Respiratory: positive: No respiratory distress. negative: Wheezes, Rales Cardiovascular: positive: Regular rate & rhythm Extremities: positive: No pedal edema Neurologic/Psychiatric: positive: Other (She still becomes tearful when speaking about her living situation at home.). negative: Disoriented to person, Disoriented to place, Disoriented to time - Lab Results Fish Bones: 07/21/21 05:21 07/21/21 05:21 Other Labs: Lab Results x24hrs 07/21/21 07/21/21 07/20/21 Range/Units 05:21 05:21 05:20 WBC 5.7 (4.8-10.8) x10^3/uL RBC 3.48 L (4.20-5.40) 10^6/uL Hgb 10.2 L (12.0-16.0) g/dL Hct 32.1 L (37.0-47.0) % MCV 92.2 (81.0-99.0) fL MCH 29.3 (27.0-31.0) pg MCHC 31.8 L (32.0-36.0) g/dL RDW 15.0 (12.0-15.0) % Plt Count 275 (130-450) 10^3/uL MPV 9.2 (7.9-10.8) fL Neut # (Auto) 4.2 (1.5-6.6) 10^3/uL Lymph # (Auto) 0.8 L (1.5-3.5) 10^3/uL [facility] # (Auto) 0.5 (0.0-1.0) 10^3/uL Eos # (Auto) 0.2 (0.0-0.7) 10^3/uL Baso # (Auto) 0.0 (0.0-0.1) 10^3/uL Absolute Nucleated RBC 0.00 x10^3/uL Nucleated RBC % 0.0 /100WBC Sodium 140 (135-145) mmol/L Potassium 4.5 (3.5-5.0) mmol/L Chloride 104 (101-111) mmol/L Carbon Dioxide 24 (21-32) mmol/L Anion Gap 12.0 (6-13) BUN 32 H (6-20) mg/dL Creatinine 1.7 H (0.4-1.0) mg/dL Estimated GFR (MDRD) 30 L (>89) Glucose 112 H (70-100) mg/dL Estimat Average Glucose 123 H (70-100) mg/dL Hemoglobin A1c % 5.9 (4.27-6.07) % Calcium 9.5 (8.5-10.3) mg/dL Assessment/Plan - Problem List (1) Suicidal ideation Impression: She has no suicidal thoughts but is still quite depressed and is tearful in discussing her home situation. She expressed yesterday that she still has suicidal ideations and she told the outreach and education social worker the same. We will consult telepsych today for medical recommendations and to assist with disposition which may be difficult as she is too deconditioned and may need a SNF. (2) Chronic kidney disease (CKD) Impression: Appears she may have had mild acute kidney injury on admission as her creatinine was 2.0 which when she thought was her baseline. Her creatinine today is down to 1.7. It was felt that her chronic disease may have been due to lithium which she was previously on but it appears this has been discontinued. We have discontinued IV fluids. We will continue to monitor her renal function and urine output. Qualifiers: Chronic kidney disease stage: unspecified stage Qualified Code(s): N18.9 - Chronic kidney disease, unspecified (3) Weakness Impression: She uses a walker at baseline and suspect this generalized weakness is related to chronic pain, dehydration and physical deconditioning. She cannot be discharged home right now due to her deconditioning. Appreciate PT input. Appreciate social work input. (4) Chronic pain syndrome Impression: We will continue her home medications. (5) Diabetes mellitus type 2, diet-controlled Impression: Her A1c is 5.9%. Continue with carb controlled diet. (6) Asymptomatic bacteriuria Impression: There was concern for UTI but the colony count was less than 10,000. We have discontinued ceftriaxone. (7) Metabolic encephalopathy Impression: Resolved. This was likely multifactorial and secondary to polypharmacy, dehydration. There was concern for infection and this is felt to be less likely now given urine culture had less than 10,000 colonies. She is much improved today and is back to her baseline. She has done well even after resuming her home medications. (8) Hypernatremia Impression: Resolved. This was secondary to decreased free water intake. We will continue to encourage oral intake.
[2021-07-21] MEDS: INSULIN ASPART 300 UNIT/3 ML PEN SUBQ SCH ×4 (08:22→21:49)
[2021-07-21] MEDS: ENOXAPARIN 40 MG/0.4 ML SYRINGE SUBQ SCH (08:23)
[2021-07-21] MEDS: ASPIRIN EC 81 MG TABLET PO SCH (08:23)
[2021-07-21] MEDS: METOPROLOL SUCCINATE 50 MG TABLET PO SCH (08:23)
[2021-07-21] MEDS: NICOTINE 7 MG PATCH TOP SCH (08:23)
[2021-07-21] MEDS: PRENATAL VITAMIN TABLET PO SCH (08:24)
[2021-07-21] MEDS: SODIUM CHLORIDE FLUSH 0.9% 10 ML SYRINGE IVP SCH ×3 (08:24→16:19)
[2021-07-21] MEDS: polyethylene glycoL 3350 17 GM PACKET PO SCH (08:24)
[2021-07-21] MEDS: VENLAFAXINE 37.5 MG TABLET PO SCH ×2 (08:24→21:50)
[2021-07-21] MEDS ORDERED: METOPROLOL SUCCINATE 50 MG TABLET PO SCH (09:00)
[2021-07-21] MEDS: oxyCODONE 5 MG TABLET PO PRN ×2 (16:19)
[2021-07-21] MEDS ORDERED: BISACODYL 10 MG SUPP PR ONE (16:35)
[2021-07-21] MEDS: risperiDONE 1 MG TABLET PO SCH (21:50)
[2021-07-22] MEDS: SODIUM CHLORIDE FLUSH 0.9% 10 ML SYRINGE IVP SCH ×4 (00:18→23:54)
[2021-07-22] MEDS: oxyCODONE 5 MG TABLET PO PRN ×2 (00:18→17:51)
[2021-07-22 05:03] LABS: BASOPHILS % (AUTO) 0.5 %; EOSINOPHILS # (AUTO) 0.2 10^3/uL (0.0-0.7); EOSINOPHILS % (AUTO) 3.6 %; HCT - HEMATOCRIT 32.4 % (37.0-47.0); HGB - HEMOGLOBIN 10.1 g/dL (12.0-16.0); LYMPHOCYTES # (AUTO) 1.2 10^3/uL (1.5-3.5); LYMPHOCYTES % (AUTO) 21.2 %; MEAN CORPUSCULAR HEMOGLOBIN 28.7 pg (27.0-31.0); MEAN CORPUSCULAR HGB CONC 31.2 g/dL (32.0-36.0); MEAN PLATELET VOLUME 9.6 fL (7.9-10.8); MONOCYTES # (AUTO) 0.6 10^3/uL (0.0-1.0); NEUTROPHILS # (AUTO) 3.5 10^3/uL (1.5-6.6); NEUTROPHILS % (AUTO) 63.5 %; PLT - PLATELET COUNT 269 10^3/uL (130-450); RED BLOOD COUNT 3.52 10^6/uL (4.20-5.40); RED CELL DISTRIBUTION WIDTH 14.7 % (12.0-15.0); WHITE BLOOD COUNT 5.6 x10^3/uL (4.8-10.8)
[2021-07-22 05:11] LABS: CALCIUM 9.6 mg/dL (8.5-10.3); CREATININE 1.7 mg/dL (0.4-1.0); POTASSIUM 4.8 mmol/L (3.5-5.0)
[2021-07-22] MEDS: BUPRENORPHINE/NALOXONE 8-2 MG TAB SL SCH ×3 (07:24→21:15)
[2021-07-22] MEDS: LEVOTHYROXINE 25 MCG TABLET PO SCH (07:25)
[2021-07-22] MEDS: GABAPENTIN 100 MG CAPSULE PO SCH ×3 (07:25→21:15)
[2021-07-22] MEDS: PANTOPRAZOLE 40 MG TABLET PO SCH (07:25)
[2021-07-22] MEDS: ASPIRIN EC 81 MG TABLET PO SCH (07:59)
[2021-07-22] MEDS: PRENATAL VITAMIN TABLET PO SCH (07:59)
[2021-07-22] MEDS: NICOTINE 7 MG PATCH TOP SCH (07:59)
[2021-07-22] MEDS: VENLAFAXINE 37.5 MG TABLET PO SCH ×2 (08:00→21:14)
[2021-07-22] MEDS: METOPROLOL SUCCINATE 50 MG TABLET PO SCH (08:00)
[2021-07-22] MEDS: ENOXAPARIN 40 MG/0.4 ML SYRINGE SUBQ SCH (08:00)
[2021-07-22] MEDS: polyethylene glycoL 3350 17 GM PACKET PO SCH (08:00)
[2021-07-22] MEDS: INSULIN ASPART 300 UNIT/3 ML PEN SUBQ SCH ×2 (08:01→12:10)
--- NOTE | 2021-07-22 09:55 | TELEPSYCH PHYS NOTE ---
Telepsych Consultation Note Consult: Name: Annika SinghB: 1950 DateandTime: 07/22/2021 12:26:43 PM Location of the patient: [facility] EDLocation of the doctor: GILDARDO Kerr Length of consult: 60 minutes This evaluation was conducted via video telepsychiatry with the assistance of onsite staff Reason for consult: Psychiatric evaluation Requested by: Primary team History of Present Illness: 71 y.o F with reported psychiatric history of bipolar disorder who presented to ED on 07/19 with lower abdominal pain and b ilateral leg pain. During assessment in ED she endorsed SI with plan. She has denied SI in the last 2 days. Psychiatry consulted for evaluation. She is A&O x3. Reports she is unsure of the reason she is hospitalized but notes she had a bad night prior to hospitalization and was confused and screaming so her called the ambulance. She denies current suicidal ideation, intent or plan but notes she has had SI recently. 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 She tells me she has had a plan in the past but she would never kill herself because of her . She states she feels safe in the hospital. She did bring up feeling like she would need to go to an adult family home because she does not get enough PT at home and does not feel her can help her much due to his physical limitations. She endorses depression and mood swings. Endorsed poor appetite, hypersomnia and low energy. She denies current hallucinations but states she had VH and AH a few days ago(states these were triggered by stress). We discussed her medication and she is agreeable with increasing Risperdal dose. She was also interested in re- establishing care with an OP psychiatrist and therapist, She recently stopped seeing them because there was a change in providers. Collateral Contacted: Guerrero for not contacting the collateral:None available Sleep issues?: YesSleep Quantity:increasedSleep Quality: Psychiatric History/Treatment History: Past diagnoses: bipolar disorder, post depression Hospitalizations: YesDescription:last hospitalization in Current Treatment:No Suicide Assessment: PSS-3: 1) Over the past 2 weeks have you felt down, depressed or hopeless?Yes 2) Over the past 2 weeks have you had thoughts of killing yourself?Yes 3) Have you ever in your life attempted to kill yourself?Yes If yes, within the past 6 months No PSS-3 Secondary Screen: If #2 is yes or #3 is yes within the past 6 months, then complete secondary screen: 1) Positive on PSS-3 questions 2 & 3 active SI with a past attempt?No 2) Have you been thinking about how you might kill yourself?Yes 3) Have you had some intention of acting on your thoughts?No 4) Lifetime psychiatric hospitalization?Yes 5) Has drinking or substance abuse ever been a problem for you?No 6) Current irritability, agitation, or aggression?No PSS-3 Secondary Screen Scoring: Mild Notes: mild to moderate Mild(0-2) No current attempt and no plan/intent Moderate(3-4) No current attempt, Plan OR intent but not both Severe(5-6) Current Attempt with Plan AND intent [facility] Safety Assessment: Risk Factors Stressors: health Attempts/Self-injury: YesDescription:reports suicide attempt by cutting in early . Denies any other history of suicide attempts Impulsivity:No Drug/Alcohol History:YesDescription:no alcohol use. cannabis-edibles and smoking Trauma History:Unknown-NA Access to firearms:No HI/Violence/Property destruction:No Legal: No Family Psych History:Unknown-NA Family History of suicide:Unknown-NA Protective Factors: Can handle stress well?Unknown-NA Scientologist?Unknown-NA External: Social supports/ Therapeutic relationships: YesDescription: Relationship history: Living situation: lives with Employment: No Education: highest level of education unknown Responsibility to family/children/work: YesDescription: Future orientation:YesDescription: Health History: Medical History: CKD DM2 Chronic pain syndrome HTN HLD Medications & Freq: psychiatric medications Effexor 75mg BID Risperdal 1mg QHs Suboxone 1mg TID Allergies: NSAIDs Tylenol Green Pepper Lisinopril Sulfa Mental Status Exam: Appearance and Attire:Normal, fair eye contact, decently groomed Psychomotor agitation:No abnormality Attitude and behavior:Cooperative Speech:No abnormality, Mood:Depressed Affect:Constricted Thought process:Circumstantial Thought content:No suicidal ideation, No homicidal ideation, No paranoia, No delusions Perception:No hallucinations, No auditory hallucinations Intel:Average Abstract:Appropriate Language:No abnormality Orientation:Grossly oriented Sense:Normal Knowledge: Memory:Intact Insight:Appropriate Judgement:Appropriate Gait:in bed Impression/Risk Assessment: Current Suicide Risk Elevated?No Current Violence Risk Elevated?No Issues with ability to care for self?Yes Summary: 71 y.o F with reported psychiatric history of bipolar disorder who presented to ED on 07/19 with lower abdominal pain and bilateral leg pain. During assessment in ED she endorsed SI with plan. She has denied SI in the last 2 days. Psychiatry consulted for evaluation. On interview, she reports depressed mood and mood swings in the context of psychosocial stressors. Denies current suicidal ideation intent or plan and is forward thinking on exam. Reports she would not harm herself because of her and is interested in medication adjustments and re-establishing care with her mental health providers. She denies HI and AVH. No evidence of psychosis or nanda on exam. At this time, she is not at imminent risk of harming herself or others. She does not need psychiatric hospitalization. Diagnosis: F39 Unspecified mood [affective] disorder, F41.9 Anxiety disorder, unspecified CPT Codes: 18593 - Psychiatric Diagnostic Evaluation with Medical Services Treatment Plan: Level of Care: Medically inpatient Psychiatric Clearance: Yes Observation level 1:1 needed?: No Pharmacological: Increase Risperdal to 1mg BID for mood stabilization. 2) Can consolidate Effexor to 150mg daily vs spilt dosing Patient psychotic?No Therapy: supportive Follow up needed while in the hospital?: No Discussed plan with onsite warehouse team member: Yes Who Dr. González Barbosa MD Psychiatrist List names and roles of persons who participated in consult: Dr. Barbosa
[2021-07-22] MEDS ORDERED: SIMETHICONE CHEW 80 MG TABLET PO PRN (12:17)
--- NOTE | 2021-07-22 16:06 | PROVIDER PROGRESS NOTE ---
Assessment/Plan - Problem List (1) Suicidal ideation Assessment/Plan: She had a telepsych eval today and then the Psychaitrist called me. She has passing suicidal thoughts but no intentions or suicide plan. She is feeling hopeless over her new weakness, that her cannot handle. The telepsych provider wrote a consult and gave medical recommendations, adjusted her meds and advised that she does not need transfer to Inpt psych unit. Will allow her son to visit, Joey Lan. The pt's disposition may be difficult as she is too deconditioned to go home and will need a SNF per PT. (2) Chronic kidney disease (CKD) Impression: Appears she may have had mild acute kidney injury on admission as her creatinine was 2.0 which when she thought was her baseline. Her creatinine for 2 days is now 1.7. It was felt that her chronic disease may have been due to lithium which she was previously but it has been discontinued for 2 weeks, she told me today. We have discontinued IV fluids. We will continue to monitor her renal function and urine output and avoid nephrotoxins. Qualifiers: Chronic kidney disease stage: unspecified stage Qualified Code(s): N18.9 - Chronic kidney disease, unspecified (3) Weakness Impression: She uses a walker at baseline and suspect this generalized weakness is related to chronic pain, dehydration and physical deconditioning. She cannot be discharged home right now due to her deconditioning. PT recommends SNF for PT rehab. Appreciate social work input. (4) Chronic pain syndrome Impression: We will continue her home medications. (5) Diabetes mellitus type 2, diet-controlled Impression: Her A1c is 5.9%. Continue with carb controlled diet but will stop ss Insulin order and fingerstick checks. (6) Asymptomatic bacteriuria Impression: There was concern for UTI but the colony count was less than 10,000. We have discontinued ceftriaxone. (7) Metabolic encephalopathy Impression: Resolved. This was likely multifactorial and secondary to polypharmacy, dehydration. There was concern for infection and this is felt to be less likely now given urine culture had less than 10,000 colonies. She is much improved and is back to her baseline; was stable to be seen by telepsych. She has done well even after resuming her home medications. (8) Hypernatremia Impression: Resolved. This was secondary to decreased free water intake. We will continue to encourage oral intake. - Current Meds Current Meds: Current Medications Generic Name Dose Route Start Last Admin Trade Name Freq PRN Reason Stop Dose Admin Aspirin 81 mg 07/21/21 09:00 07/22/21 07:59 Aspirin Ec 81 Mg Tablet PO 81 mg DAILY JARETT Administration Buprenorphine HCl 1 tab 07/20/21 07:30 07/22/21 14:28 Buprenorphine/Naloxone 8-2 Mg Tab SL 1 tab TID JARETT Administration Enoxaparin Sodium 40 mg 07/20/21 09:00 07/22/21 08:00 Enoxaparin 40 Mg/0.4 Ml Syringe SUBQ 40 mg DAILY JARETT Administration Gabapentin 100 mg 07/20/21 22:00 07/22/21 14:28 Gabapentin 100 Mg Capsule PO 100 mg TID JARETT Administration Levothyroxine Sodium 50 mcg 07/20/21 07:00 07/22/21 07:25 Levothyroxine 25 Mcg Tablet PO 50 mcg QDAC JARETT Administration Metoprolol Succinate 50 mg 07/20/21 09:00 07/22/21 08:00 Metoprolol Succinate 50 Mg Tablet PO 50 mg DAILY JARETT Administration Multi-Ingredient Ointment 1 applic 07/21/21 06:08 07/21/21 06:36 Zinc Oxide 20% Oint 30 Gm Tube TOP 1 applic PRN PRN Administration Skin Care Nicotine 1 patch 07/20/21 09:00 07/22/21 07:59 Nicotine 7 Mg Patch TOP 1 patch DAILY JARETT Administration Ondansetron HCl 4 mg 07/19/21 20:08 07/20/21 21:31 Ondansetron Odt 4 Mg Tablet TL 4 mg Q6HR PRN Administration Nausea / Vomiting Oxycodone HCl 5 mg 07/19/21 20:08 07/22/21 00:18 Oxycodone 5 Mg Tablet PO 5 mg Q4HR PRN Administration Pain 5 to 7 Pantoprazole Sodium 40 mg 07/21/21 07:00 07/22/21 07:25 Pantoprazole 40 Mg Tablet PO 40 mg QDAC JARETT Administration Polyethylene Glycol 17 gm 07/20/21 09:00 07/22/21 08:00 Polyethylene Glycol 3350 17 Gm Packet PO 17 gm DAILY JARETT Administration Multivit/Folic Acid/Iron 1 tab 07/21/21 09:00 07/22/21 07:59 Vitamin Tablet PO 1 tab DAILYWM JARETT Administration Simethicone 80 mg 07/22/21 12:17 07/22/21 14:28 Simethicone Chew 80 Mg Tablet PO 80 mg 0900,1300,1800,2100 PRN Administration Gas Soap Free Cleanser 1 each 07/19/21 20:14 07/20/21 18:39 Soap Suds Enema 1 Each RC 1 each QID PRN Administration Constipation Sodium Chloride 10 ml 07/20/21 01:00 07/22/21 08:00 Sodium Chloride Flush 0.9% 10 Ml Syringe IVP 10 ml 0100,0900,1700 JARETT Administration Venlafaxine HCl 75 mg 07/19/21 21:00 07/22/21 08:00 Venlafaxine 37.5 Mg Tablet PO 07/22/21 21:00 75 mg BID JARETT Administration - Lab Result Fish Bone Diagrams: 07/22/21 04:39 07/22/21 04:39 - Diagnostic Imaging Results Diagnostic Imaging Results: Final report reviewed - Additional Planning My Orders: My Active Orders 07/22/21 12:17 Simethicone [Mylicon] 80 mg PO 0900,1300,1800,2100 PRN Subjective - Subjective Patient Reports: Feeling Better, Resting Comfortably Objective Vital Signs: Vital Signs - 24 hr 07/22/21 07/22/21 07/22/21 00:00 07:44 10:18 Temperature 37.1 C 36.6 C Heart Rate [ 71 Activity] Heart Rate [ 65 57 L Brachial] Heart Rate [ 66 Sitting] Heart Rate [ 60 Supine] Respiratory 18 18 Rate Blood Pressure 149/81 H [Activity] Blood Pressure 148/61 H 149/66 H [Right Brachial artery] Blood Pressure 164/62 H [Sitting] Blood Pressure 149/53 H [Supine] O2 Saturation 92 94 Oxygen O2 Source [Without Activity] Room air O2 Source Room air I&O (Last 24 Hrs): Intake and Output Totals x24h 07/20/21 07/21/21 07/22/21 23:59 23:59 23:59 Intake Total 3616.667 1440 1440 Balance 3616.667 1440 1440 General: Alert, Oriented x3 HEENT: Mucous membr. moist/pink Neck: Supple, No JVD Neuro: Alert, Non Focal Cardiovascular: Regular rate Respiratory: Chest non-tender Abdomen: Soft Extremities: No edema, No tenderness/swelling - Results Results: Laboratory Results WBC 5.6 x10^3/uL (4.8-10.8) 07/22/21 04:39 RBC 3.52 10^6/uL (4.20-5.40) L 07/22/21 04:39 Hgb 10.1 g/dL (12.0-16.0) L 07/22/21 04:39 Hct 32.4 % (37.0-47.0) L 07/22/21 04:39 MCV 92.0 fL (81.0-99.0) 07/22/21 04:39 MCH 28.7 pg (27.0-31.0) 07/22/21 04:39 MCHC 31.2 g/dL (32.0-36.0) L 07/22/21 04:39 RDW 14.7 % (12.0-15.0) 07/22/21 04:39 Plt Count 269 10^3/uL (130-450) 07/22/21 04:39 MPV 9.6 fL (7.9-10.8) 07/22/21 04:39 Neut # (Auto) 3.5 10^3/uL (1.5-6.6) 07/22/21 04:39 Lymph # (Auto) 1.2 10^3/uL (1.5-3.5) L 07/22/21 04:39 Hunt # (Auto) 0.6 10^3/uL (0.0-1.0) 07/22/21 04:39 Eos # (Auto) 0.2 10^3/uL (0.0-0.7) 07/22/21 04:39 Baso # (Auto) 0.0 10^3/uL (0.0-0.1) 07/22/21 04:39 Absolute Nucleated RBC 0.00 x10^3/uL 07/22/21 04:39 Nucleated RBC % 0.0 /100WBC 07/22/21 04:39 Sodium 141 mmol/L (135-145) 07/22/21 04:39 Potassium 4.8 mmol/L (3.5-5.0) 07/22/21 04:39 Chloride 103 mmol/L (101-111) 07/22/21 04:39 Carbon Dioxide 25 mmol/L (21-32) 07/22/21 04:39 Anion Gap 13.0 (6-13) 07/22/21 04:39 BUN 32 mg/dL (6-20) H 07/22/21 04:39 Creatinine 1.7 mg/dL (0.4-1.0) H 07/22/21 04:39 Estimated GFR (MDRD) 30 (>89) L 07/22/21 04:39 Glucose 100 mg/dL (70-100) 07/22/21 04:39 Estimat Average Glucose 123 mg/dL (70-100) H 07/20/21 05:20 Hemoglobin A1c % 5.9 % (4.27-6.07) 07/20/21 05:20 Calcium 9.6 mg/dL (8.5-10.3) 07/22/21 04:39 Total Bilirubin 0.3 mg/dL (0.2-1.0) 07/19/21 18:15 AST 15 IU/L (10-42) 07/19/21 18:15 ALT < 10 IU/L (10-60) L 07/19/21 18:15 Alkaline Phosphatase 153 IU/L (42-121) H 07/19/21 18:15 Total Protein 7.8 g/dL (6.7-8.2) 07/19/21 18:15 Albumin 3.6 g/dL (3.2-5.5) 07/19/21 18:15 Globulin 4.2 g/dL (2.1-4.2) 07/19/21 18:15 Albumin/Globulin Ratio 0.9 (1.0-2.2) L 07/19/21 18:15 Lipase 25 U/L (22-51) 07/19/21 18:15 Urine Color LIGHT YELLOW 07/19/21 18:18 Urine Clarity CLOUDY (CLEAR) 07/19/21 18:18 Urine pH 6.0 PH (5.0-7.5) 07/19/21 18:18 Ur Specific [place] 1.010 (1.002-1.030) 07/19/21 18:18 Urine Protein TRACE mg/dL (NEGATIVE) 07/19/21 18:18 Urine Glucose (UA) NEGATIVE mg/dL (NEGATIVE) 07/19/21 18:18 Urine Ketones NEGATIVE mg/dL (NEGATIVE) 07/19/21 18:18 Urine Occult Blood LARGE (NEGATIVE) H 07/19/21 18:18 Urine Nitrite NEGATIVE (NEGATIVE) 07/19/21 18:18 Urine Bilirubin NEGATIVE (NEGATIVE) 07/19/21 18:18 Urine Urobilinogen 0.2 (NORMAL) E.U./dL (NORMAL) 07/19/21 18:18 Ur Leukocyte Esterase LARGE (NEGATIVE) H 07/19/21 18:18 Urine RBC 6-10 /HPF (0-5) H 07/19/21 18:18 Urine WBC >25 /HPF (0-5) H 07/19/21 18:18 Ur Squamous Epith Cells RARE Squamous (<= Few) 07/19/21 18:18 Urine Bacteria Few /HPF (None Seen) 07/19/21 18:18 Ur Microscopic Review INDICATED 07/19/21 18:18 Urine Culture Comments INDICATED 07/19/21 18:18 Nasal Adenovirus (PCR) NOT DETECTED 07/19/21 18:15 Nasal B. parapertussis DNA (PCR) NOT DETECTED 07/19/21 18:15 Nasal Coronavir 229E PCR NOT DETECTED 07/19/21 18:15 Nasal Coronavir HKU1 PCR NOT DETECTED 07/19/21 18:15 Nasal Coronavir NL63 PCR NOT DETECTED 07/19/21 18:15 Nasal Coronavir OC43 PCR NOT DETECTED 07/19/21 18:15 Nasal Enterovir/Rhinovir PCR NOT DETECTED 07/19/21 18:15 Nasal Influenza B PCR NOT DETECTED 07/19/21 18:15 Nasal Influenza A PCR NOT DETECTED 07/19/21 18:15 Nasal Parainfluen 1 PCR NOT DETECTED 07/19/21 18:15 Nasal Parainfluen 2 PCR NOT DETECTED 07/19/21 18:15 Nasal Parainfluen 3 PCR NOT DETECTED 07/19/21 18:15 Nasal Parainfluen 4 PCR NOT DETECTED 07/19/21 18:15 Nasal RSV (PCR) NOT DETECTED 07/19/21 18:15 Nasal B.pertussis DNA PCR NOT DETECTED 07/19/21 18:15 Nasal C.pneumoniae (PCR) NOT DETECTED 07/19/21 18:15 Misael Human Metapneumo PCR NOT DETECTED 07/19/21 18:15 Nasal M.pneumoniae (PCR) NOT DETECTED 07/19/21 18:15 Nasal SARS-CoV-2 (PCR) NOT DETECTED 07/19/21 18:15 Urine Opiates Screen NEGATIVE (NEGATIVE) 07/19/21 18:18 Ur Oxycodone Screen NEGATIVE (NEGATIVE) 07/19/21 18:18 Urine Methadone Screen NEGATIVE (NEGATIVE) 07/19/21 18:18 Ur Propoxyphene Screen NEGATIVE (NEGATIVE) 07/19/21 18:18 Ur Barbiturates Screen NEGATIVE (NEGATIVE) 07/19/21 18:18 Ur Tricyclics Screen NEGATIVE (NEGATIVE) 07/19/21 18:18 Ur Phencyclidine Scrn NEGATIVE (NEGATIVE) 07/19/21 18:18 Ur Amphetamine Screen NEGATIVE (NEGATIVE) 07/19/21 18:18 U Methamphetamines Scrn NEGATIVE (NEGATIVE) 07/19/21 18:18 U Benzodiazepines Scrn NEGATIVE (NEGATIVE) 07/19/21 18:18 Urine Cocaine Screen NEGATIVE (NEGATIVE) 07/19/21 18:18 U Cannabinoids Screen NEGATIVE (NEGATIVE) 07/19/21 18:18 - Procedures Procedures: Procedures COLONOSCOPY (01/09/13) DRAINAGE OF BLADDER WITH DRAINAGE DEVICE, VIA OPENING (11/25/19)
[2021-07-22] MEDS: risperiDONE 1 MG TABLET PO SCH (21:15)
[2021-07-23] MEDS: oxyCODONE 5 MG TABLET PO PRN ×2 (00:02→09:09)
[2021-07-23] MEDS: BUPRENORPHINE/NALOXONE 8-2 MG TAB SL SCH ×2 (05:47→06:11)
[2021-07-23] MEDS: PANTOPRAZOLE 40 MG TABLET PO SCH (05:47)
[2021-07-23] MEDS: LEVOTHYROXINE 25 MCG TABLET PO SCH (05:47)
[2021-07-23] MEDS: GABAPENTIN 100 MG CAPSULE PO SCH (05:47)
[2021-07-23] MEDS: MIN OIL/DIMETHICON/COCONUT OIL 92 GM TUBE TOP PRN ×2 (05:47→09:19)
[2021-07-23] MEDS ORDERED: VENLAFAXINE 37.5 MG TABLET PO SCH (09:00)
[2021-07-23] MEDS: ASPIRIN EC 81 MG TABLET PO SCH (09:11)
[2021-07-23] MEDS: NICOTINE 7 MG PATCH TOP SCH (09:11)
[2021-07-23] MEDS: METOPROLOL SUCCINATE 50 MG TABLET PO SCH (09:11)
[2021-07-23] MEDS: PRENATAL VITAMIN TABLET PO SCH (09:12)
[2021-07-23] MEDS: ENOXAPARIN 40 MG/0.4 ML SYRINGE SUBQ SCH (09:12)
[2021-07-23] MEDS: risperiDONE 1 MG TABLET PO SCH (09:12)
[2021-07-23] MEDS: SODIUM CHLORIDE FLUSH 0.9% 10 ML SYRINGE IVP SCH (09:13)
[2021-07-23] MEDS: polyethylene glycoL 3350 17 GM PACKET PO SCH (09:13)
[2021-07-23 10:30] VITALS: BP 125/86
[2021-07-23] MEDS ORDERED: SALINE ENEMA 133 ML BOTTLE RC ONE (11:00)
[2021-07-23] MEDS ORDERED: oxyCODONE 5 MG TABLET PO PRN (12:05)
--- NOTE | 2021-07-23 12:08 | Discharge Plan ---
"Discharge Plan for SNF / [facility] - Discharge Plan And Transition Orders Problem Reviewed?: Yes Disposition: 03 SNF DC/Xfer Condition: Stable Allergies and Adverse Reactions: Allergies Allergy/AdvReac Type Severity Reaction Status Date / Time NSAIDS (Non-Steroidal Allergy Mild Hives Verified 07/06/21 11:01 Anti-Inflamma acetaminophen Allergy Hives Verified 07/06/21 11:01 green pepper Allergy Unknown Verified 07/06/21 11:01 lisinopril Allergy Unknown Verified 07/06/21 11:01 Sulfa (Sulfonamide AdvReac Mild Rash Verified 07/06/21 11:01 Antibiotics) ondansetron [From Zofran] AdvReac Dizziness Verified 07/20/21 22:40 Health Concerns: Patient admitted with confusion/altered mental status and suicidal ideations. After stabilization and improvement of mental status, by providing IV hydration, changing medications and treating a mild urinary tract infection, the patient was seen by a tele-psychiatrist. She may be discharged, was cleared by psychiatry. Plan of Treatment: Medications are being resumed and management of constipation is being addressed. She is being discharged to SNF for PT rehab. Care Goals: Improvement in symptoms and stabilization are the goals. Assessment: The patient understands and is agreeable with the plan. - SNF / [facility] Transition Orders Admit to (Facility): [facility] (Swing bed status) Under the care of (Name): Dr Gayle Diaz Discharge Diagnosis: (1) Suicidal ideation Resolved, stabilzed (2) Chronic kidney disease (CKD) Stable (3) Weakness Needs PT rehab (4) Chronic pain syndrome Stable (5) Diabetes mellitus type 2, diet-controlled Stable (6) Asymptomatic bacteriuria Resolved (7) Metabolic encephalopathy Resolved. (8) Hypernatremia Resolved. Medicare Certification Statement: I certify that [facility] prison care is medically necessary on a continuing basis for any of the conditions for which she/he is receiving care during hospitalization. Notify PCP of admission and forward orders to primary provider for signature. Weight on admission and: Weekly Other Notification Orders: Call PCP immediately if patient develops dyspnea, chest pain/tightness or edema. House Bowel Program: Yes Additional Bowel Program Orders: If no BM after 2 days, nurse may give M.O.M. 30ml PO PRN and/or ducolax Supp 1 [place] and/or TERRA 250mg P.O., and/or senna 1-2 tabs PO. On day 3 nurse may give repeat above order until residents constipation is resolved. Annual Influenza Vaccine (between Jan 01 and July 31): Yes Two-step PPD per [facility] [phone] or approved exception documents: Yes Medication Orders: PLEASE REFER TO THE DISCHARGE MEDICATION LIST. Insulin Orders?: No - Diet Type: No added sugar Texture: Regular Liquids: Thin May have monthly special meal: Yes - Therapies | Activity Therapy: Evaluation | Treat if indicated: PT, OT Rehabilitation Potential: Maximize functional status Activity: Activity as Tolerated Weight Bearing: Full Weight Assistance Devices: Walker Follow Up: See PCP after discharge from SNF."
--- NOTE | 2021-07-24 08:20 | DISCHARGE SUMMARY ---
Discharge Summary Admit Date: 07/19/21 Discharge Date: 07/23/21 Discharging Provider: Dr Gayle Diaz Primary Care Provider: Dr Dae Malagon Condition at Discharge: Stable Discharge Disposition: SNF DC/Xfer - HPI History of Present Illness: From the admission H&P of Dr Christel Merritt: This is a 71-year-old white female brought to the emergency department via EMS for evaluation of lower abdominal pain and bilateral leg pain. Seen recently at this hospital on 06 July diagnosed with encephalopathy secondary to UTI and had a brief admission. Since discharge she has not taken her antibiotics. Previous presentations have been similar. History is very limited as patient is simply moaning. She believes that the month is April. She is unable to meaningfully participate in the history and exam however she does not appear to have any focal neuro deficits. Patient does smell heavily of cannabis and previous urine tox was positive for cannabis. In discussion with her Edward he reports that when well, she is alert pleasant and kind. He is not sure why but she has not taken any of the antibiotics prescribed for her after discharge. She prefers to keep her pill bottles for the antibiotics separate from her daily medications. Over the last few days she has become increasingly agitated and now confused. After speaking with the nurses, the patient is able to state her name and now knows the year is 2021 but she does not know her birthday. She endorses suicidal ideation but becomes tearful and states, "I don't want to talk about it." She had told the nurses she has a plan but would not divulge it. She states she did not take any of her medications today. When asked why she did not, she said, "I don't know". She answered the same about taking her prescribed antibiotics. She endorses pain with palpation of her lower legs and her abdomen, but further questioning responds with, "I don't know". Constipation questions: "I don't know." She is having dysuria and feels like she has been peeing a lot. She endorses nasal congestion and rhinorrhea that makes it hard to breathe through her nose. She is also feeling weak. She denies chest pain, dizziness, and lightheadedness. - HOSPITAL COURSE Hospital Course: (1) Suicidal ideation She had a telepsych eval after her mentation returned to baseline, after several days, and the Psychaitrist described that she has passing suicidal thoughts but no intentions or suicide plan. The patient was feeling hopeless over her new weakness, that her cannot handle. The telepsych provider wrote a consult and gave recommendations, adjusted her meds and advised that she does not need transfer to In psych unit. (2) Chronic kidney disease (CKD) Appears she had mild acute kidney injury on admission as her creatinine was 2.0. She received iv fluids and her creatinine was 1.7. It was felt that her chronic disease may have been due to lithium which she was previously on, but it has been discontinued for 2 weeks, she reported. (3) Weakness She uses a walker at baseline and suspect this generalized weakness is related to chronic pain, dehydration and physical deconditioning. She could be discharged home due to her deconditioning. PT recommended a SNF for PT rehab and she was discharge to a SNF. (4) Chronic pain syndrome We continued her home medications (which included Suboxone). (5) Diabetes mellitus type 2, diet-controlled Her A1c was 5.9%. We ordered a carb controlled diet but stopped ss Insulin order and fingerstick checks. (6) Asymptomatic bacteriuria vs UTI There was concern for UTI. We discontinued iv ceftriaxone and she did get a single oral Fosfomycin dose. (7) Metabolic encephalopathy This was likely multifactorial: secondary to polypharmacy and dehydration. There was also concern for UTI. She improved with iv hydration and resuming her meds slowly, was back to her baseline and was stable to be seen by telepsych (as in #1). (8) Hypernatremia This was secondary to decreased free water intake. It resolved with hydration and we encouraged her oral fluid intake - ALLERGIES Allergies/Adverse Reactions: Allergies Allergy/AdvReac Type Severity Reaction Status Date / Time NSAIDS (Non-Steroidal Allergy Mild Hives Verified 07/06/21 11:01 Anti-Inflamma acetaminophen Allergy Hives Verified 07/06/21 11:01 green pepper Allergy Unknown Verified 07/06/21 11:01 lisinopril Allergy Unknown Verified 07/06/21 11:01 Sulfa (Sulfonamide AdvReac Mild Rash Verified 07/06/21 11:01 Antibiotics) ondansetron [From Zofran] AdvReac Dizziness Verified 07/20/21 22:40 - MEDICATIONS Home Medications: Ambulatory Orders Medication Instructions Recorded Confirmed Levothyroxine Sodium 50 mcg PO QDAC #30 07/17/19 07/23/21 gemfibroziL [Gemfibrozil] 600 mg PO BID #60 07/17/19 07/23/21 Cholecalciferol [Vitamin D3] 25 mcg PO DAILY 08/15/20 07/23/21 Gabapentin [Neurontin] 100 mg PO TID 08/15/20 07/23/21 Aspirin [Aspirin EC] 81 mg PO DAILY 12/27/20 07/23/21 Docusate Sodium 250Mg Capsule 250 - 500 mg PO DAILY 12/29/20 07/23/21 [Colace 250Mg Capsule] Furosemide [Lasix] 20 mg PO DAILY 03/05/21 07/23/21 Omeprazole Magnesium 20 mg PO DAILY 03/05/21 07/23/21 Buprenorphine HCl/Naloxone HCl 1 tab SL TID 03/27/21 07/23/21 [Suboxone 8-2 mg Tab] Metoprolol Succinate [Toprol Xl] 50 mg PO DAILY 07/06/21 07/23/21 Tizanidine HCl 2 mg PO TID 07/06/21 07/23/21 Min Oil/Dimeth/Coconut Oil Crm 1 applic TOP PRN PRN 07/23/21 07/23/21 [Cavilon] Nicotine 7 mg Patch [Nicoderm] 1 patch TOP DAILY patch 07/23/21 07/23/21 Simethicone [Mylicon] 80 mg PO 0900,1300,1800,2100 PRN 07/23/21 07/23/21 tablet Venlafaxine [Effexor] 150 mg PO DAILY tablet 07/23/21 07/23/21 Zinc Oxide 20% Oint [Zinc Oxide] 1 applic TOP PRN PRN 07/23/21 07/23/21 oxyCODONE [Roxicodone] 5 mg PO Q8HR PRN tablet 07/23/21 07/23/21 polyethylene glycoL 3350 [Miralax] 17 gm PO DAILY packet 07/23/21 07/23/21 risperiDONE [RisperDAL] 1 mg PO BID tablet 07/23/21 07/23/21 - PHYSICAL EXAM AT DISCHARGE General Appearance: positive: No acute distress, Alert Eyes Bilateral: positive: Normal inspection, EOMI ENT: positive: ENT inspection nml, No signs of dehydration Neck: positive: Nml inspection, No JVD Respiratory: positive: No respiratory distress, Breath sounds nml Cardiovascular: positive: Regular rate & rhythm, No murmur Abdomen: positive: Nml bowel sounds, No distention Skin: positive: Warm, Dry Extremities: positive: Non-tender, No pedal edema Neurologic/Psychiatric: positive: Oriented x3, CN's nml (2-12), Motor nml - LABS Result Diagrams: 07/22/21 04:39 07/22/21 04:39 - DIAGNOSTIC IMAGING Diagnostic Imaging Results: Final report reviewed - FOLLOW UP Follow Up: This will be determined after her stay at SNF.
== END 2021-07-23 12:23 | DRG 689 ==
LOC: EDUNIT# → ED 17:55 → MS2 20:08
PROVIDERS: ADMIT Specialist; ATTEND Internal Medicine
DX: N30.00 Acute cystitis without hematuria (principal); G93.41 Metabolic encephalopathy; R45.851 Suicidal ideations; E87.0 Hyperosmolality and hypernatremia; T36.96XA Underdosing of unspecified systemic antibiotic, initial encounter; M79.604 Pain in right leg; I10 Essential (primary) hypertension; M79.605 Pain in left leg; J34.89 Other specified disorders of nose and nasal sinuses; J44.9 Chronic obstructive pulmonary disease, unspecified; R07.9 Chest pain, unspecified; R60.0 Localized edema; Z20.822 Contact with and (suspected) exposure to COVID-19; N18.9 Chronic kidney disease, unspecified; G89.4 Chronic pain syndrome; E11.42 Type 2 diabetes mellitus with diabetic polyneuropathy; E78.00 Pure hypercholesterolemia, unspecified; E86.0 Dehydration; I12.9 Hypertensive chronic kidney disease with stage 1 through stage 4 chronic kidney disease, or unspecified chronic kidney disease; K21.9 Gastro-esophageal reflux disease without esophagitis; K59.00 Constipation, unspecified; F17.210 Nicotine dependence, cigarettes, uncomplicated; F31.9 Bipolar disorder, unspecified; F41.9 Anxiety disorder, unspecified; R09.81 Nasal congestion; R53.1 Weakness; Z79.82 Long term (current) use of aspirin; Z79.890 Hormone replacement therapy; Z79.899 Other long term (current) drug therapy; Z82.49 Family history of ischemic heart disease and other diseases of the circulatory system; Z86.718 Personal history of other venous thrombosis and embolism; Z88.2 Allergy status to sulfonamides; Z88.6 Allergy status to analgesic agent; Z88.8 Allergy status to other drugs, medicaments and biological substances; Z91.018 Allergy to other foods; Z96.659 Presence of unspecified artificial knee joint
CPT/HCPCS: 36415; 51701; 71045; 74176; 80048; 80053; 80306; 81001; 83036; 83690; 85025; 87086; 87631; 96361; 96365; 96372; 96375; 97161; 97165; 97530; 99283; 99285; A6250; A9270; G0378; G0426; J1170; J1650; J7120; Q0162; Q3014; 0202U; 81003

== ENCOUNTER 2021-07-23 09:06 | Inpatient (IN) | payer MEDICARE, MEDICAID ==
[2021-07-23] MEDS ORDERED: ZINC OXIDE 20% OINT 30 GM TUBE TOP PRN (13:16)
[2021-07-23] MEDS ORDERED: SIMETHICONE CHEW 80 MG TABLET PO PRN (13:16)
[2021-07-23] MEDS: BUPRENORPHINE/NALOXONE 8-2 MG TAB SL SCH ×2 (14:04→21:58)
[2021-07-23] MEDS: GABAPENTIN 100 MG CAPSULE PO SCH ×2 (14:04→21:59)
[2021-07-23] MEDS: tiZANidine 4 MG TABLET PO SCH ×2 (14:04→21:58)
[2021-07-23] MEDS: MIN OIL/DIMETHICON/COCONUT OIL 92 GM TUBE TOP PRN ×2 (14:14→23:37)
[2021-07-23] MEDS: gemfibroziL 600 MG TABLET PO SCH (21:58)
[2021-07-23] MEDS: risperiDONE 1 MG TABLET PO SCH (21:58)
[2021-07-23] MEDS ORDERED: ASPIRIN CHEW 81 MG TABLET PO STA (22:37)
[2021-07-24] MEDS: GABAPENTIN 100 MG CAPSULE PO SCH ×3 (05:37→21:25)
[2021-07-24] MEDS: oxyCODONE 5 MG TABLET PO PRN ×2 (05:37→13:33)
[2021-07-24] MEDS: tiZANidine 4 MG TABLET PO SCH ×3 (05:38→21:24)
[2021-07-24] MEDS: PANTOPRAZOLE 40 MG TABLET PO SCH (06:00)
[2021-07-24] MEDS: LEVOTHYROXINE 25 MCG TABLET PO SCH (06:00)
[2021-07-24] MEDS: BUPRENORPHINE/NALOXONE 8-2 MG TAB SL SCH ×3 (06:19→21:25)
[2021-07-24] MEDS: VENLAFAXINE 37.5 MG TABLET PO SCH (08:16)
[2021-07-24] MEDS: ASPIRIN EC 81 MG TABLET PO SCH (08:17)
[2021-07-24] MEDS: polyethylene glycoL 3350 17 GM PACKET PO SCH (08:17)
[2021-07-24] MEDS: DOCUSATE SODIUM 250 MG CAPSULE PO SCH (08:17)
[2021-07-24] MEDS: gemfibroziL 600 MG TABLET PO SCH ×2 (08:17→21:24)
[2021-07-24] MEDS: NICOTINE 7 MG PATCH TOP SCH (08:17)
[2021-07-24] MEDS: CHOLECALCIFEROL 25 MCG TABLET PO SCH (08:17)
[2021-07-24] MEDS: risperiDONE 1 MG TABLET PO SCH ×2 (08:17→21:24)
[2021-07-24] MEDS: METOPROLOL SUCCINATE 50 MG TABLET PO SCH (08:18)
--- NOTE | 2021-07-24 08:22 | HISTORY & PHYSICAL EXAMINATION ---
Chief Complaint - Chief Complaint Chief Complaint: Weakness and deconditioning History of Present Illness - Admitted From Admitted From:: Discharged from Inpt stay at [facility] - History Obtained From History obtained from: The patient and chart review - History of Present Illness HPI Comment/Other: This is a 71-year-old white female who was admitted with obtundation/altered mental status which was thought to be from polypharmacy including Suboxone use, UTI and dehydration. She received IV fluids and antibiotics and her mentation improved. She was found to be very deconditioned and needs physical therapy for rehab. She is being admitted to SNF ([facility] bed banner) for PT rehab. History - Past Medical History Cardiovascular: reports: Hypertension, High cholesterol, Deep vein thrombosis, Murmur Respiratory: reports: Asthma, COPD, Shortness of breath Neuro: reports: Peripheral neuropathy Endocrine/Autoimmune: reports: Type 2 diabetes GI: reports: GERD, Chronic constipation, Pancreatitis HYDRAMATIC SPECIALIST: reports: None : reports: Incontinence, Chronic bladder infection HEENT: reports: None Psych: reports: Anxiety, Bipolar disorder, Other Musculoskeletal: reports: Osteoarthritis, Fatigue, Chronic back pain, Other Derm: reports: Other MRSA Hx?: No - Past Surgical History General: reports: EGD, Colonoscopy Ortho: reports: Knee replacement, Spine surgery /HYDRAMATIC SPECIALIST: reports: section HEENT: reports: Tonsil/Adenoidectomy - Family & Social History Family History: Mother: , CAD, Father: , CAD Family History Comment/Other: Both mother and father of heart disease at the age of 57. Living Situation: With spouse/s.o. Social History Notes: She smoked 1ppd and now down to 1-2 cigs a day. Uses CBD cannabis oil sublingual. She does not drink alcohol and no hx of alcohol abuse. Did abuse prescription meds but that problem has been addressed by her PCP. No hx of other recreational abuse. - Substance History Use: Uses substance without health or social issues: Tobacco (hx) - POLST Patient has POLST: No POLST Status: Full Code Meds/Allgy - Home Medications Home Medications: Ambulatory Orders Medication Instructions Recorded Confirmed Levothyroxine Sodium 50 mcg PO QDAC #30 07/17/19 07/23/21 gemfibroziL [Gemfibrozil] 600 mg PO BID #60 07/17/19 07/23/21 Cholecalciferol [Vitamin D3] 25 mcg PO DAILY 08/15/20 07/23/21 Gabapentin [Neurontin] 100 mg PO TID 08/15/20 07/23/21 Aspirin [Aspirin EC] 81 mg PO DAILY 12/27/20 07/23/21 Docusate Sodium 250Mg Capsule 250 - 500 mg PO DAILY 12/29/20 07/23/21 [Colace 250Mg Capsule] Furosemide [Lasix] 20 mg PO DAILY 03/05/21 07/23/21 Omeprazole Magnesium 20 mg PO DAILY 03/05/21 07/23/21 Buprenorphine HCl/Naloxone HCl 1 tab SL TID 03/27/21 07/23/21 [Suboxone 8-2 mg Tab] Metoprolol Succinate [Toprol Xl] 50 mg PO DAILY 07/06/21 07/23/21 Tizanidine HCl 2 mg PO TID 07/06/21 07/23/21 Min Oil/Dimeth/Coconut Oil Crm 1 applic TOP PRN PRN 07/23/21 07/23/21 [Cavilon] Nicotine 7 mg Patch [Nicoderm] 1 patch TOP DAILY patch 07/23/21 07/23/21 Simethicone [Mylicon] 80 mg PO 0900,1300,1800,2100 PRN 07/23/21 07/23/21 tablet Venlafaxine [Effexor] 150 mg PO DAILY tablet 07/23/21 07/23/21 Zinc Oxide 20% Oint [Zinc Oxide] 1 applic TOP PRN PRN 07/23/21 07/23/21 oxyCODONE [Roxicodone] 5 mg PO Q8HR PRN tablet 07/23/21 07/23/21 polyethylene glycoL 3350 [Miralax] 17 gm PO DAILY packet 07/23/21 07/23/21 risperiDONE [RisperDAL] 1 mg PO BID tablet 07/23/21 07/23/21 - Allergies Allergies/Adverse Reactions: Allergies Allergy/AdvReac Type Severity Reaction Status Date / Time NSAIDS (Non-Steroidal Allergy Mild Hives Verified 07/06/21 11:01 Anti-Inflamma acetaminophen Allergy Hives Verified 07/06/21 11:01 green pepper Allergy Unknown Verified 07/06/21 11:01 lisinopril Allergy Unknown Verified 07/06/21 11:01 Sulfa (Sulfonamide AdvReac Mild Rash Verified 07/06/21 11:01 Antibiotics) ondansetron [From Zofran] AdvReac Dizziness Verified 07/20/21 22:40 Review of Systems - Constitutional Constitutional: reports: Weakness - Gastrointestinal Gastrointestinal: reports: Constipation (She needed an enema as she was being discharged from inpatient status today, had good result with a very large BM) - Neurological Neurological: reports: General weakness - All Other Systems All Other Systems: reports: Reviewed and negative Exam - Vital Signs Vital Signs: Vital Signs x48h Temp Pulse Resp BP Pulse Ox 07/24/21 07:38 36.5 C 54 L 17 111/44 L 94 - Physical Exam General Appearance: positive: No acute distress, Alert Eyes Bilateral: positive: Normal inspection, EOMI ENT: positive: ENT inspection nml, No signs of dehydration Neck: positive: Nml inspection, Thyroid nml, No JVD Respiratory: positive: No respiratory distress, Breath sounds nml Cardiovascular: positive: Regular rate & rhythm, No murmur Abdomen: positive: Non-tender, Nml bowel sounds, No distention, Other (Obese abd) Skin: positive: Warm, Dry Extremities: positive: Non-tender, Other (Trace ankle edema) Neurologic/Psychiatric: positive: Oriented x3 (Non-focal) Conclusion/Plan - Problem List (1) Muscle weakness Conclusion/Plan: She is very deconditioned from hospitalization and from a recent back surgery hospitalization. She is being admitted to SNF ( Swing bed status) for daily PT rehab. (2) Diabetes mellitus type 2, diet-controlled Stable on low carb (no added sugar) diet (3) Bipolar disorder Recent suicidal ideation and metabolic encephalopathy from polypharmacy. She had Telepsych eval and was felt to have hopelessness, psych meds were changed, she was deemed to be not suicidal. We will continue her psych meds (4) Chronic kidney disease (CKD) Stable (5) HTN We will continue her BP meds. (6) Chronic pain syndrome Stable on Suboxone and prn low doses of narcotics. She has stated twice that she wants to be on as mminimum a dose as possible. Will decrease the frequency of her prn narcotic meds. Continue PT for rehab. (7) Constipation Resolved./ (8) Tobacco use Will order a Nicotine patch
[2021-07-24] MEDS: FUROSEMIDE 20 MG TABLET PO SCH (08:43)
[2021-07-24] MEDS: FOLIC ACID 1 MG TABLET PO SCH (11:13)
[2021-07-24] MEDS: PRENATAL VITAMIN TABLET PO SCH (11:13)
[2021-07-24] MEDS: LIDOCAINE PATCH 5% TOP PRN (11:13)
[2021-07-25] MEDS: GABAPENTIN 100 MG CAPSULE PO SCH ×3 (05:52→22:01)
[2021-07-25] MEDS: LEVOTHYROXINE 25 MCG TABLET PO SCH (05:52)
[2021-07-25] MEDS: tiZANidine 4 MG TABLET PO SCH ×3 (05:52→22:01)
[2021-07-25] MEDS: PANTOPRAZOLE 40 MG TABLET PO SCH (05:52)
[2021-07-25] MEDS: BUPRENORPHINE/NALOXONE 8-2 MG TAB SL SCH ×3 (06:31→22:01)
[2021-07-25] MEDS: CHOLECALCIFEROL 25 MCG TABLET PO SCH (09:01)
[2021-07-25] MEDS: DOCUSATE SODIUM 250 MG CAPSULE PO SCH (09:02)
[2021-07-25] MEDS: polyethylene glycoL 3350 17 GM PACKET PO SCH (09:02)
[2021-07-25] MEDS: SENNA 8.6 MG TABLET PO SCH (09:02)
[2021-07-25] MEDS: FOLIC ACID 1 MG TABLET PO SCH (09:02)
[2021-07-25] MEDS: risperiDONE 1 MG TABLET PO SCH ×2 (09:02→22:01)
[2021-07-25] MEDS: gemfibroziL 600 MG TABLET PO SCH ×2 (09:02→22:00)
[2021-07-25] MEDS: NICOTINE 7 MG PATCH TOP SCH (09:02)
[2021-07-25] MEDS: PRENATAL VITAMIN TABLET PO SCH (09:02)
[2021-07-25] MEDS: ASPIRIN EC 81 MG TABLET PO SCH (09:02)
[2021-07-25] MEDS: METOPROLOL SUCCINATE 50 MG TABLET PO SCH (09:03)
[2021-07-25] MEDS: VENLAFAXINE 37.5 MG TABLET PO SCH (09:03)
[2021-07-25] MEDS: oxyCODONE 5 MG TABLET PO PRN (10:44)
[2021-07-25] MEDS: LIDOCAINE PATCH 5% TOP PRN (13:51)
[2021-07-26] MEDS: LEVOTHYROXINE 25 MCG TABLET PO SCH (06:43)
[2021-07-26] MEDS: GABAPENTIN 100 MG CAPSULE PO SCH ×3 (06:43→21:34)
[2021-07-26] MEDS: tiZANidine 4 MG TABLET PO SCH ×3 (06:44→21:33)
[2021-07-26] MEDS: PANTOPRAZOLE 40 MG TABLET PO SCH (06:44)
[2021-07-26] MEDS: BUPRENORPHINE/NALOXONE 8-2 MG TAB SL SCH ×3 (07:00→21:34)
[2021-07-26] MEDS: VENLAFAXINE 37.5 MG TABLET PO SCH (07:50)
[2021-07-26] MEDS: DOCUSATE SODIUM 250 MG CAPSULE PO SCH (07:51)
[2021-07-26] MEDS: risperiDONE 1 MG TABLET PO SCH ×2 (07:51→21:33)
[2021-07-26] MEDS: SENNA 8.6 MG TABLET PO SCH (07:52)
[2021-07-26] MEDS: gemfibroziL 600 MG TABLET PO SCH ×2 (07:52→21:33)
[2021-07-26] MEDS: FUROSEMIDE 20 MG TABLET PO SCH (07:53)
[2021-07-26] MEDS: FOLIC ACID 1 MG TABLET PO SCH (07:53)
[2021-07-26] MEDS: ASPIRIN EC 81 MG TABLET PO SCH (07:53)
[2021-07-26] MEDS: CHOLECALCIFEROL 25 MCG TABLET PO SCH (07:53)
[2021-07-26] MEDS: METOPROLOL SUCCINATE 50 MG TABLET PO SCH (07:53)
[2021-07-26] MEDS: PRENATAL VITAMIN TABLET PO SCH (07:54)
[2021-07-26] MEDS: NICOTINE 7 MG PATCH TOP SCH (07:54)
[2021-07-26] MEDS: polyethylene glycoL 3350 17 GM PACKET PO SCH (07:54)
[2021-07-26] MEDS: oxyCODONE 5 MG TABLET PO PRN (13:05)
[2021-07-26] MEDS: LIDOCAINE PATCH 5% TOP PRN (16:30)
[2021-07-27] MEDS: GABAPENTIN 100 MG CAPSULE PO SCH ×3 (05:54→21:39)
[2021-07-27] MEDS: tiZANidine 4 MG TABLET PO SCH ×3 (05:54→21:39)
[2021-07-27] MEDS: PANTOPRAZOLE 40 MG TABLET PO SCH (05:54)
[2021-07-27] MEDS: LEVOTHYROXINE 25 MCG TABLET PO SCH (05:54)
[2021-07-27] MEDS: BUPRENORPHINE/NALOXONE 8-2 MG TAB SL SCH ×3 (06:24→21:39)
[2021-07-27] MEDS: oxyCODONE 5 MG TABLET PO PRN (08:16)
[2021-07-27] MEDS: NICOTINE 7 MG PATCH TOP SCH (08:16)
[2021-07-27] MEDS: PRENATAL VITAMIN TABLET PO SCH (08:17)
[2021-07-27] MEDS: FOLIC ACID 1 MG TABLET PO SCH (08:17)
[2021-07-27] MEDS: CHOLECALCIFEROL 25 MCG TABLET PO SCH (08:18)
[2021-07-27] MEDS: VENLAFAXINE 37.5 MG TABLET PO SCH (08:18)
[2021-07-27] MEDS: METOPROLOL SUCCINATE 50 MG TABLET PO SCH (08:18)
[2021-07-27] MEDS: gemfibroziL 600 MG TABLET PO SCH ×2 (08:19→21:38)
[2021-07-27] MEDS: risperiDONE 1 MG TABLET PO SCH ×2 (08:19→21:39)
[2021-07-27] MEDS: SENNA 8.6 MG TABLET PO SCH (08:19)
[2021-07-27] MEDS: DOCUSATE SODIUM 250 MG CAPSULE PO SCH (08:19)
[2021-07-27] MEDS: ASPIRIN EC 81 MG TABLET PO SCH (08:19)
[2021-07-27] MEDS: polyethylene glycoL 3350 17 GM PACKET PO SCH (08:21)
[2021-07-28] MEDS: LEVOTHYROXINE 25 MCG TABLET PO SCH (06:24)
[2021-07-28] MEDS: tiZANidine 4 MG TABLET PO SCH ×3 (06:24→21:19)
[2021-07-28] MEDS: GABAPENTIN 100 MG CAPSULE PO SCH ×3 (06:24→21:19)
[2021-07-28] MEDS: PANTOPRAZOLE 40 MG TABLET PO SCH (06:24)
[2021-07-28] MEDS: BUPRENORPHINE/NALOXONE 8-2 MG TAB SL SCH ×3 (06:55→22:19)
--- NOTE | 2021-07-28 07:50 | PROVIDER PROGRESS NOTE ---
Assessment/Plan - Problem List (1) Chest pain Assessment/Plan: Last night the patient complained of chest pain. The cold reduction roller obtain troponin values and an EKG. The EKG done 07/27/2021 at 10:45 PM (which I interpreted) showed sinus bradycardia, rate 45, left axis deviation, poor R wave progression. No ST or T wave changes were seen. The EKG had no change compared to 03/13/2020. We will continue to monitor for chest pain and follow her troponin values. (2) Bradycardia Assessment/Plan: HR is running in 40-50's. Metoprolol Succ 50 mg daily was her usual dose. Will decrease dose to Metoprolol Succ 25 mg daily and put in Hold parameters. 3) Muscle weakness Perhaps she is weak from her bradycardia and from her Suboxone use. The beta-leanna dose was decreased as above 4) Diabetes mellitus, type II, diet controlled. Stable 5) Bipolar Disorder Stable on meds 6) CKD Her BUN/creatinine has not been checked since she is in SNF 7) HTN Stable on meds 8) Chronic pain syndrome Stable on meds 9) Tobacco use Nicotine patch is ordered to use 10) Constipation Resolved at time of admission to [facility] bed - Current Meds Current Meds: Current Medications Generic Name Dose Route Start Last Admin Trade Name Radha PRN Reason Stop Dose Admin Aspirin 81 mg 07/24/21 09:00 07/27/21 08:19 Aspirin Ec 81 Mg Tablet PO 81 mg DAILY JARETT Administration Buprenorphine HCl 1 tab 07/23/21 14:00 07/28/21 06:55 Buprenorphine/Naloxone 8-2 Mg Tab SL 1 tab TID JARETT Administration Cholecalciferol 25 mcg 07/24/21 09:00 07/27/21 08:18 Cholecalciferol 25 Mcg Tablet PO 25 mcg DAILY JARETT Administration Docusate Sodium 500 mg 07/24/21 09:00 07/27/21 08:19 Docusate Sodium 250 Mg Capsule PO 500 mg DAILY JARETT Administration Folic Acid 1 mg 07/24/21 12:00 07/27/21 08:17 Folic Acid 1 Mg Tablet PO 1 mg DAILY JARETT Administration Furosemide 20 mg 07/24/21 08:00 07/26/21 07:53 Furosemide 20 Mg Tablet PO 20 mg Q2D JARETT Administration Gabapentin 100 mg 07/23/21 14:00 07/28/21 06:24 Gabapentin 100 Mg Capsule PO 100 mg TID JARETT Administration Gemfibrozil 600 mg 07/23/21 21:00 07/27/21 21:38 Gemfibrozil 600 Mg Tablet PO 600 mg BID JARETT Administration Levothyroxine Sodium 50 mcg 07/24/21 07:00 07/28/21 06:24 Levothyroxine 25 Mcg Tablet PO 50 mcg QDAC JARETT Administration Lidocaine 1 patch 07/24/21 10:51 07/26/21 16:30 Lidocaine Patch 5% TOP 1 patch DAILY PRN Administration PAIN Metoprolol Succinate 50 mg 07/24/21 09:00 07/27/21 08:18 Metoprolol Succinate 50 Mg Tablet PO 50 mg DAILY JARETT Administration Mineral Oil 1 applic 07/23/21 13:16 07/23/21 23:37 Min Oil/Dimethicon/Coconut Oil 92 Gm Tube TOP 1 applic PRN PRN Administration Skin Care Nicotine 1 patch 07/24/21 09:00 07/27/21 08:16 Nicotine 7 Mg Patch TOP 1 patch DAILY JARETT Administration Oxycodone HCl 2.5 mg 07/25/21 15:33 07/27/21 08:16 Oxycodone 5 Mg Tablet PO 2.5 mg Q8HR PRN Administration Pain 5 to 7 Pantoprazole Sodium 40 mg 07/24/21 07:00 07/28/21 06:24 Pantoprazole 40 Mg Tablet PO 40 mg QDAC JARETT Administration Polyethylene Glycol 17 gm 07/24/21 09:00 07/27/21 08:21 Polyethylene Glycol 3350 17 Gm Packet PO Not Given DAILY JARETT Multivit/Folic Acid/Iron 1 tab 07/24/21 10:00 07/27/21 08:17 Vitamin Tablet PO 1 tab DAILYWM JARETT Administration Risperidone 1 mg 07/23/21 21:00 07/27/21 21:39 Risperidone 1 Mg Tablet PO 1 mg BID JARETT Administration Senna 8.6 - 17.2 mg 07/25/21 09:00 07/27/21 08:19 Senna 8.6 Mg Tablet PO 8.6 mg DAILY JARETT Administration Tizanidine HCl 2 mg 07/23/21 14:00 07/28/21 06:24 Tizanidine 4 Mg Tablet PO 2 mg TID JARETT Administration Venlafaxine HCl 150 mg 07/24/21 09:00 07/27/21 08:18 Venlafaxine 37.5 Mg Tablet PO 150 mg DAILY JARETT Administration Subjective - Subjective Patient Reports: Feeling Better Objective Vital Signs: Vital Signs - 24 hr 07/27/21 07/27/21 07/27/21 09:08 19:07 22:31 Temperature 36.3 C L 36.6 C Heart Rate [ 62 50 L 54 L Brachial] Respiratory 18 19 Rate Blood Pressure 106/53 L 123/58 L [Left Brachial artery] Blood Pressure 137/57 H [Right Brachial artery] O2 Saturation 94 98 Oxygen O2 Source [Without Activity] Room air O2 Source Room air I&O (Last 24 Hrs): Intake and Output Totals x24h 07/26/21 07/27/21 07/28/21 23:59 23:59 23:59 Intake Total 2419 2069 Balance 2419 2069 General: Alert, Oriented x3 HEENT: Mucous membr. moist/pink Neck: Supple Neuro: Alert, Non Focal Cardiovascular: Regular rate Respiratory: No respiratory distress Abdomen: Soft Extremities: No edema - Results Results: Laboratory Results Troponin I High Sens 12.1 ng/L (2.3-14.8) 07/27/21 22:41 - Procedures Procedures: Procedures COLONOSCOPY (01/09/13) DRAINAGE OF BLADDER WITH DRAINAGE DEVICE, VIA OPENING (11/25/19)
[2021-07-28] MEDS: VENLAFAXINE 37.5 MG TABLET PO SCH (08:59)
[2021-07-28] MEDS: gemfibroziL 600 MG TABLET PO SCH ×2 (08:59→21:18)
[2021-07-28] MEDS: DOCUSATE SODIUM 250 MG CAPSULE PO SCH (08:59)
[2021-07-28] MEDS: SENNA 8.6 MG TABLET PO SCH (08:59)
[2021-07-28] MEDS: risperiDONE 1 MG TABLET PO SCH ×2 (08:59→21:19)
[2021-07-28] MEDS: ASPIRIN EC 81 MG TABLET PO SCH (08:59)
[2021-07-28] MEDS: FOLIC ACID 1 MG TABLET PO SCH (08:59)
[2021-07-28] MEDS: CHOLECALCIFEROL 25 MCG TABLET PO SCH (08:59)
[2021-07-28] MEDS: PRENATAL VITAMIN TABLET PO SCH (08:59)
[2021-07-28] MEDS: polyethylene glycoL 3350 17 GM PACKET PO SCH (09:00)
[2021-07-28] MEDS: NICOTINE 7 MG PATCH TOP SCH (09:03)
[2021-07-28] MEDS: METOPROLOL SUCCINATE 50 MG TABLET PO SCH (09:05)
[2021-07-28] MEDS: LIDOCAINE PATCH 5% TOP PRN (09:14)
[2021-07-28] MEDS: oxyCODONE 5 MG TABLET PO PRN (14:26)
[2021-07-29] MEDS: BUPRENORPHINE/NALOXONE 8-2 MG TAB SL SCH ×3 (05:47→22:10)
[2021-07-29] MEDS: oxyCODONE 5 MG TABLET PO PRN (06:42)
[2021-07-29] MEDS: PANTOPRAZOLE 40 MG TABLET PO SCH (06:44)
[2021-07-29] MEDS: LEVOTHYROXINE 25 MCG TABLET PO SCH (06:44)
[2021-07-29] MEDS: tiZANidine 4 MG TABLET PO SCH ×3 (06:45→21:38)
[2021-07-29] MEDS: GABAPENTIN 100 MG CAPSULE PO SCH ×3 (06:45→21:38)
[2021-07-29] MEDS: PRENATAL VITAMIN TABLET PO SCH (08:59)
[2021-07-29] MEDS: VENLAFAXINE 37.5 MG TABLET PO SCH (08:59)
[2021-07-29] MEDS: DOCUSATE SODIUM 250 MG CAPSULE PO SCH (09:00)
[2021-07-29] MEDS: FUROSEMIDE 20 MG TABLET PO SCH (09:00)
[2021-07-29] MEDS: ASPIRIN EC 81 MG TABLET PO SCH (09:00)
[2021-07-29] MEDS: FOLIC ACID 1 MG TABLET PO SCH (09:00)
[2021-07-29] MEDS: CHOLECALCIFEROL 25 MCG TABLET PO SCH (09:00)
[2021-07-29] MEDS: gemfibroziL 600 MG TABLET PO SCH ×2 (09:01→21:38)
[2021-07-29] MEDS: NICOTINE 7 MG PATCH TOP SCH (09:01)
[2021-07-29] MEDS: polyethylene glycoL 3350 17 GM PACKET PO SCH (09:03)
[2021-07-29] MEDS: risperiDONE 1 MG TABLET PO SCH ×2 (09:03→21:38)
[2021-07-29] MEDS: SENNA 8.6 MG TABLET PO SCH (09:04)
[2021-07-29] MEDS: METOPROLOL SUCCINATE 50 MG TABLET PO SCH (14:19)
[2021-07-30] MEDS: LEVOTHYROXINE 25 MCG TABLET PO SCH (06:28)
[2021-07-30] MEDS: tiZANidine 4 MG TABLET PO SCH ×3 (06:28→21:19)
[2021-07-30] MEDS: PANTOPRAZOLE 40 MG TABLET PO SCH (06:29)
[2021-07-30] MEDS: GABAPENTIN 100 MG CAPSULE PO SCH ×3 (06:29→21:19)
[2021-07-30] MEDS: BUPRENORPHINE/NALOXONE 8-2 MG TAB SL SCH ×3 (07:01→21:19)
[2021-07-30] MEDS: gemfibroziL 600 MG TABLET PO SCH ×2 (08:32→21:19)
[2021-07-30] MEDS: DOCUSATE SODIUM 250 MG CAPSULE PO SCH (08:32)
[2021-07-30] MEDS: VENLAFAXINE 37.5 MG TABLET PO SCH (08:32)
[2021-07-30] MEDS: CHOLECALCIFEROL 25 MCG TABLET PO SCH (08:32)
[2021-07-30] MEDS: SENNA 8.6 MG TABLET PO SCH (08:33)
[2021-07-30] MEDS: FOLIC ACID 1 MG TABLET PO SCH (08:33)
[2021-07-30] MEDS: ASPIRIN EC 81 MG TABLET PO SCH (08:33)
[2021-07-30] MEDS: risperiDONE 1 MG TABLET PO SCH ×2 (08:33→21:19)
[2021-07-30] MEDS: PRENATAL VITAMIN TABLET PO SCH (08:33)
[2021-07-30] MEDS: LIDOCAINE PATCH 5% TOP PRN (08:34)
[2021-07-30] MEDS: NICOTINE 7 MG PATCH TOP SCH (08:34)
[2021-07-30] MEDS: polyethylene glycoL 3350 17 GM PACKET PO SCH (08:34)
[2021-07-30] MEDS: METOPROLOL SUCCINATE 50 MG TABLET PO SCH (08:36)
[2021-07-30] MEDS: oxyCODONE 5 MG TABLET PO PRN (10:57)
[2021-07-31] MEDS: GABAPENTIN 100 MG CAPSULE PO SCH ×3 (05:22→21:30)
[2021-07-31] MEDS: LEVOTHYROXINE 25 MCG TABLET PO SCH (05:22)
[2021-07-31] MEDS: tiZANidine 4 MG TABLET PO SCH ×3 (05:22→21:25)
[2021-07-31] MEDS: PANTOPRAZOLE 40 MG TABLET PO SCH (05:22)
[2021-07-31] MEDS: oxyCODONE 5 MG TABLET PO PRN ×3 (05:34→21:30)
[2021-07-31] MEDS: BUPRENORPHINE/NALOXONE 8-2 MG TAB SL SCH ×3 (05:35→21:31)
[2021-07-31] MEDS: NICOTINE 7 MG PATCH TOP SCH (10:13)
[2021-07-31] MEDS: PRENATAL VITAMIN TABLET PO SCH (10:14)
[2021-07-31] MEDS: METOPROLOL SUCCINATE 50 MG TABLET PO SCH (10:14)
[2021-07-31] MEDS: VENLAFAXINE 37.5 MG TABLET PO SCH (10:14)
[2021-07-31] MEDS: FOLIC ACID 1 MG TABLET PO SCH (10:14)
[2021-07-31] MEDS: CHOLECALCIFEROL 25 MCG TABLET PO SCH (10:14)
[2021-07-31] MEDS: gemfibroziL 600 MG TABLET PO SCH ×2 (10:14→21:25)
[2021-07-31] MEDS: ASPIRIN EC 81 MG TABLET PO SCH (10:14)
[2021-07-31] MEDS: DOCUSATE SODIUM 250 MG CAPSULE PO SCH (10:14)
[2021-07-31] MEDS: risperiDONE 1 MG TABLET PO SCH ×2 (10:15→21:30)
[2021-07-31] MEDS: polyethylene glycoL 3350 17 GM PACKET PO SCH (10:15)
[2021-07-31] MEDS: SENNA 8.6 MG TABLET PO SCH (10:15)
[2021-07-31] MEDS: LIDOCAINE PATCH 5% TOP PRN (10:16)
[2021-08-01] MEDS: BUPRENORPHINE/NALOXONE 8-2 MG TAB SL SCH ×3 (06:51→21:51)
[2021-08-01] MEDS: tiZANidine 4 MG TABLET PO SCH ×3 (06:52→20:55)
[2021-08-01] MEDS: LEVOTHYROXINE 25 MCG TABLET PO SCH (06:52)
[2021-08-01] MEDS: GABAPENTIN 100 MG CAPSULE PO SCH ×3 (06:52→20:55)
[2021-08-01] MEDS: PANTOPRAZOLE 40 MG TABLET PO SCH (06:52)
[2021-08-01] MEDS: VENLAFAXINE 37.5 MG TABLET PO SCH (09:30)
[2021-08-01] MEDS: oxyCODONE 5 MG TABLET PO PRN (09:30)
[2021-08-01] MEDS: FUROSEMIDE 20 MG TABLET PO SCH (09:31)
[2021-08-01] MEDS: DOCUSATE SODIUM 250 MG CAPSULE PO SCH (09:31)
[2021-08-01] MEDS: risperiDONE 1 MG TABLET PO SCH ×2 (09:32→20:53)
[2021-08-01] MEDS: PRENATAL VITAMIN TABLET PO SCH (09:32)
[2021-08-01] MEDS: NICOTINE 7 MG PATCH TOP SCH (09:32)
[2021-08-01] MEDS: CHOLECALCIFEROL 25 MCG TABLET PO SCH (09:32)
[2021-08-01] MEDS: ASPIRIN EC 81 MG TABLET PO SCH (09:33)
[2021-08-01] MEDS: gemfibroziL 600 MG TABLET PO SCH ×2 (09:33→20:54)
[2021-08-01] MEDS: METOPROLOL SUCCINATE 50 MG TABLET PO SCH (09:33)
[2021-08-01] MEDS: SENNA 8.6 MG TABLET PO SCH (09:34)
[2021-08-01] MEDS: polyethylene glycoL 3350 17 GM PACKET PO SCH (09:34)
[2021-08-02] MEDS: tiZANidine 4 MG TABLET PO SCH ×3 (06:07→20:38)
[2021-08-02] MEDS: PANTOPRAZOLE 40 MG TABLET PO SCH (06:09)
[2021-08-02] MEDS: LEVOTHYROXINE 25 MCG TABLET PO SCH (06:09)
[2021-08-02] MEDS: GABAPENTIN 100 MG CAPSULE PO SCH ×3 (06:09→20:38)
[2021-08-02] MEDS: BUPRENORPHINE/NALOXONE 8-2 MG TAB SL SCH ×3 (07:00→21:53)
[2021-08-02] MEDS: gemfibroziL 600 MG TABLET PO SCH ×2 (08:55→20:39)
[2021-08-02] MEDS: SENNA 8.6 MG TABLET PO SCH (08:55)
[2021-08-02] MEDS: risperiDONE 1 MG TABLET PO SCH ×2 (08:55→20:39)
[2021-08-02] MEDS: METOPROLOL SUCCINATE 50 MG TABLET PO SCH (08:55)
[2021-08-02] MEDS: PRENATAL VITAMIN TABLET PO SCH (08:57)
[2021-08-02] MEDS: VENLAFAXINE 37.5 MG TABLET PO SCH (08:57)
[2021-08-02] MEDS: polyethylene glycoL 3350 17 GM PACKET PO SCH (08:58)
[2021-08-02] MEDS: DOCUSATE SODIUM 250 MG CAPSULE PO SCH (08:58)
[2021-08-02] MEDS: ASPIRIN EC 81 MG TABLET PO SCH (09:00)
[2021-08-02] MEDS: NICOTINE 7 MG PATCH TOP SCH (09:00)
[2021-08-02] MEDS: CHOLECALCIFEROL 25 MCG TABLET PO SCH (09:00)
[2021-08-02] MEDS: oxyCODONE 5 MG TABLET PO PRN (13:05)
[2021-08-02] MEDS: LIDOCAINE PATCH 5% TOP PRN (16:24)
[2021-08-03] MEDS: tiZANidine 4 MG TABLET PO SCH ×3 (05:47→22:04)
[2021-08-03] MEDS: PANTOPRAZOLE 40 MG TABLET PO SCH (05:48)
[2021-08-03] MEDS: LEVOTHYROXINE 25 MCG TABLET PO SCH (05:48)
[2021-08-03] MEDS: GABAPENTIN 100 MG CAPSULE PO SCH ×3 (05:48→22:04)
[2021-08-03] MEDS: BUPRENORPHINE/NALOXONE 8-2 MG TAB SL SCH ×3 (06:42→22:31)
[2021-08-03] MEDS: CHOLECALCIFEROL 25 MCG TABLET PO SCH (10:56)
[2021-08-03] MEDS: polyethylene glycoL 3350 17 GM PACKET PO SCH (10:56)
[2021-08-03] MEDS: gemfibroziL 600 MG TABLET PO SCH ×2 (10:57→22:04)
[2021-08-03] MEDS: VENLAFAXINE 37.5 MG TABLET PO SCH (10:57)
[2021-08-03] MEDS: PRENATAL VITAMIN TABLET PO SCH (10:57)
[2021-08-03] MEDS: DOCUSATE SODIUM 250 MG CAPSULE PO SCH (10:57)
[2021-08-03] MEDS: SENNA 8.6 MG TABLET PO SCH (10:58)
[2021-08-03] MEDS: ASPIRIN EC 81 MG TABLET PO SCH (10:59)
[2021-08-03] MEDS: risperiDONE 1 MG TABLET PO SCH ×2 (10:59→22:04)
[2021-08-03] MEDS: METOPROLOL SUCCINATE 50 MG TABLET PO SCH (11:00)
[2021-08-03] MEDS: NICOTINE 7 MG PATCH TOP SCH (11:01)
[2021-08-04] MEDS: PANTOPRAZOLE 40 MG TABLET PO SCH (06:39)
[2021-08-04] MEDS: GABAPENTIN 100 MG CAPSULE PO SCH ×3 (06:39→21:22)
[2021-08-04] MEDS: LEVOTHYROXINE 25 MCG TABLET PO SCH (06:39)
[2021-08-04] MEDS: tiZANidine 4 MG TABLET PO SCH ×3 (06:39→21:22)
[2021-08-04] MEDS: oxyCODONE 5 MG TABLET PO PRN (06:39)
[2021-08-04] MEDS: BUPRENORPHINE/NALOXONE 8-2 MG TAB SL SCH ×3 (06:41→21:22)
[2021-08-04] MEDS: ASPIRIN EC 81 MG TABLET PO SCH (09:14)
[2021-08-04] MEDS: CHOLECALCIFEROL 25 MCG TABLET PO SCH (09:14)
[2021-08-04] MEDS: PRENATAL VITAMIN TABLET PO SCH (09:14)
[2021-08-04] MEDS: DOCUSATE SODIUM 250 MG CAPSULE PO SCH (09:14)
[2021-08-04] MEDS: METOPROLOL SUCCINATE 50 MG TABLET PO SCH (09:14)
[2021-08-04] MEDS: FUROSEMIDE 20 MG TABLET PO SCH (09:15)
[2021-08-04] MEDS: polyethylene glycoL 3350 17 GM PACKET PO SCH (09:15)
[2021-08-04] MEDS: VENLAFAXINE 37.5 MG TABLET PO SCH (09:15)
[2021-08-04] MEDS: SENNA 8.6 MG TABLET PO SCH (09:15)
[2021-08-04] MEDS: NICOTINE 7 MG PATCH TOP SCH (09:15)
[2021-08-04] MEDS: risperiDONE 1 MG TABLET PO SCH ×2 (09:15→21:22)
[2021-08-04] MEDS: gemfibroziL 600 MG TABLET PO SCH ×2 (09:15→21:22)
[2021-08-04] MEDS ORDERED: GLUCAGON 1 MG/ML VIAL IVP ONE (12:35)
[2021-08-04] MEDS ORDERED: GLUCAGON 1 MG/ML VIAL IM ONE (13:00)
--- NOTE | 2021-08-04 13:06 | XRAY Report ---
PROCEDURE: Chest 1 View X-Ray INDICATIONS: food stuck in esophagus TECHNIQUE: One view of the chest was acquired. COMPARISON: Chest x-ray 07/19/2021 FINDINGS: Surgical changes and devices: None. Lungs and pleura: No pleural effusions or pneumothorax. Lungs are clear. Mediastinum: Mediastinal contours appear normal. Heart size is mildly enlarged. No radiopaque forei gn body. Bones and chest wall: No suspicious bony lesions. Overlying soft tissues appear unremarkable. IMPRESSION: No acute pulmonary process. Reviewed by: Renate Cardozo MD on 08/04/2021 1:04 PM PDT Approved by: Renate Cardozo MD on 08/04/2021 1:04 PM PDT Station ID: [id number]
--- NOTE | 2021-08-04 15:47 | PROVIDER PROGRESS NOTE ---
Subjective - Prog Note Date Prog Note Date: 08/04/21 Prog Note Time: 15:40 - Subjective Pt reports feeling: Improved Subjective: In the last week the patient has had 3 issues. A few days ago she had atypical chest pain. We did an EKG which showed no acute changes and her troponin which was negative. And the chest pain resolved on its own. Today she was eating lunch. In the middle of eating a piece of meat she swallowed her, and felt it go down and then just stay in the upper third of her esophagus. She then vomited up what ever food she had above that. Continue to have dry heaves. Drooling. Could not keep her own secretions down. Suspecting that she had a food bolus stuck in her esophagus I did a chest x-ray. Nothing seen on chest x-ray. I gave her IM glucagon. Within 45 minutes she could feel the food bolus move and her dry heaves, drooling, nausea resolved. She is asking fme to stop her Suboxone and going back to her usual opiate use that she did a few months ago. She says that the Suboxone makes her too sleepy. I explained to her that she is no longer to ever receive opiates at all. Unfortunately she has a history of having multiple admissions to our facility as well as multiple emergency room encounters where she would have accidental drug overdoses from her opioids. Her primary care provider gradually transitioned her off all opioids and she is only to be on Suboxone. While she was here, she kept on asking for some oxycodone. I believe our team gave it to her without realizing her story Or her contracted agreement for pain management Current Medications - Current Medications Current Medications: Active Medications Aspirin (Aspirin Ec 81 Mg Tablet) 81 mg PO DAILY [facility] Last Admin: 08/04/21 09:14 Dose: 81 mg Buprenorphine HCl (Buprenorphine/Naloxone 8-2 Mg Tab) 1 tab SL TID [facility] Last Admin: 08/04/21 13:54 Dose: Not Given Cholecalciferol (Cholecalciferol 25 Mcg Tablet) 25 mcg PO DAILY [facility] Last Admin: 08/04/21 09:14 Dose: 25 mcg Docusate Sodium (Docusate Sodium 250 Mg Capsule) 500 mg PO DAILY [facility] Last Admin: 08/04/21 09:14 Dose: 500 mg Furosemide (Furosemide 20 Mg Tablet) 20 mg PO Q3D [facility] Last Admin: 08/04/21 09:15 Dose: 20 mg Gabapentin (Gabapentin 100 Mg Capsule) 100 mg PO TID [facility] Last Admin: 08/04/21 13:54 Dose: 100 mg Gemfibrozil (Gemfibrozil 600 Mg Tablet) 600 mg PO BID [facility] Last Admin: 08/04/21 09:15 Dose: 600 mg Levothyroxine Sodium (Levothyroxine 25 Mcg Tablet) 50 mcg PO QDAC [facility] Last Admin: 08/04/21 06:39 Dose: 50 mcg Lidocaine (Lidocaine Patch 5%) 1 patch TOP DAILY PRN PRN Reason: PAIN Last Admin: 08/02/21 16:24 Dose: 1 patch Metoprolol Succinate (Metoprolol Succinate 50 Mg Tablet) 25 mg PO DAILY [facility] Last Admin: 08/04/21 09:14 Dose: 25 mg Mineral Oil (Min Oil/Dimethicon/Coconut Oil 92 Gm Tube) 1 applic TOP PRN PRN PRN Reason: Skin Care Last Admin: 07/23/21 23:37 Dose: 1 applic Multi-Ingredient Ointment (Zinc Oxide 20% Oint 30 Gm Tube) 1 applic TOP PRN PRN PRN Reason: Skin Care Nicotine (Nicotine 7 Mg Patch) 1 patch TOP DAILY [facility] Last Admin: 08/04/21 09:15 Dose: 1 patch Oxycodone HCl (Oxycodone 5 Mg Tablet) 2.5 mg PO Q8HR PRN PRN Reason: Pain 5 to 7 Last Admin: 08/04/21 06:39 Dose: 2.5 mg Pantoprazole Sodium (Pantoprazole 40 Mg Tablet) 40 mg PO QDAC [facility] Last Admin: 08/04/21 06:39 Dose: 40 mg Polyethylene Glycol (Polyethylene Glycol 3350 17 Gm Packet) 17 gm PO DAILY [facility] Last Admin: 08/04/21 09:15 Dose: 17 gm Multivit/Folic Acid/Iron ( Vitamin Tablet) 1 tab PO DAILYWM [facility] Last Admin: 08/04/21 09:14 Dose: 1 tab Risperidone (Risperidone 1 Mg Tablet) 1 mg PO BID [facility] Last Admin: 08/04/21 09:15 Dose: 1 mg Senna (Senna 8.6 Mg Tablet) 8.6 - 17.2 mg PO DAILY [facility] Last Admin: 08/04/21 09:15 Dose: 8.6 mg Simethicone (Simethicone Chew 80 Mg Tablet) 80 mg PO 0900,1300,1800,2100 PRN PRN Reason: Gas Last Admin: 07/31/21 23:32 Dose: 80 mg Tizanidine HCl (Tizanidine 4 Mg Tablet) 2 mg PO TID [facility] Last Admin: 08/04/21 13:54 Dose: 2 mg Venlafaxine HCl (Venlafaxine 37.5 Mg Tablet) 150 mg PO DAILY [facility] Last Admin: 08/04/21 09:15 Dose: 150 mg Cholecalciferol [Vitamin D3] 25 mcg PO DAILY 08/15/20 Gabapentin [Neurontin] 100 mg PO TID 08/15/20 Aspirin [Aspirin EC] 81 mg PO DAILY 12/27/20 Furosemide [Lasix] 20 mg PO DAILY 03/05/21 Omeprazole Magnesium 20 mg PO DAILY 03/05/21 Buprenorphine HCl/Naloxone HCl [Suboxone 8-2 mg Tab] 1 tab SL TID 03/27/21 Metoprolol Succinate [Toprol Xl] 50 mg PO DAILY 07/06/21 Tizanidine HCl 2 mg PO TID 07/06/21 Objective - Vital Signs/Intake & Output Reviewed Vital Signs: Yes Vital Signs: Vital Signs x48h Temp Pulse Resp BP Pulse Ox 08/04/21 08:47 36.6 C 55 L 18 116/49 L 93 Intake & Output: Intake & Output 08/01/21 08/02/21 08/03/21 08/04/21 23:59 23:59 23:59 23:59 Intake Total 2400 3410 2360 1360 Output Total 1500 1250 600 Balance 2400 1910 1110 760 - Objective General Appearance: positive: No acute distress, Alert, Other (Morbidly obese elderly female who looks much older than stated age, normal speech patterns, lucid. Much improved from earlier today where she was drooling, sitting up in bed, leaning forward unable to swallow her own secretions.) Eyes Bilateral: positive: PERRL, EOMI Neck: positive: No JVD Respiratory: positive: No respiratory distress, Other (Diminished breath sounds at bases). negative: Wheezes, Rales, Rhonchi Cardiovascular: positive: Regular rate & rhythm. negative: Gallop/S4, Friction rub Abdomen: positive: Non-tender, Nml bowel sounds, No distention, Other (hugely obese pannus, unable to assess for organomegaly) Skin: positive: Warm, Dry, Other (reSolving [place] underneath her breast, and intertriginous folds underneath her pannus) Extremities: positive: Full ROM, Pedal edema Neurologic/Psychiatric: positive: Oriented x3, CN's nml (2-12). negative: Motor nml (Still has significant weakness needing help from physical therapy and aides nonfocal.) Assessment/Plan - Problem List (1) Foreign body in esophagus Impression: The patient described eating some meat at lunchtime. It got stuck in her esophagus. Obvious signs of impaction in that she was sitting forward, drooling, had a regular hand. Dry heaving. Unable to swallow anything. She responded to IM glucagon and it is all resolved now. Plan: Cautioned her about how she eats. She needs to focus on chewing food carefully and fully before swallowing. To drink of water between each food bolus. Qualifiers: Encounter type: initial encounter Qualified Code(s): T18.108A - Unspecified foreign body in esophagus causing other injury, initial encounter (2) Chronic back pain Impression: After discussing her pain management with her, the patient has decided to show to stay on the Suboxone. And I did remind her that at discharge she will not be sent home with opiates. If she would like to seek opiate therapy she needs to set up a new contract with either her primary care provider or a chronic pain clinic. Qualifiers: Back pain location: low back pain Back pain laterality: midline Sciatica presence: without sciatica Qualified Code(s): M54.50 - Low back pain, unspecified; G89.29 - Other chronic pain (3) Leg weakness Impression: She was seen by physical therapy today. She is in swing bed status to improve her endurance and strength so that she can return safely to home. At home she has caregivers, bath aids, but needs to please to be able to stand and pivot. Per PT note today: 1. Pt. amb. x 50 ft. w/cane or alexandre-walker - Not Met. Did not use alexandre-walker during today's session secondary to pain complaints. Pt ambulating x8ft w/ FWW & SBA; limited by pain complaints. Pt ambulating 30/50ft on 08/01 w/ FWW. 2. Pt. ascend/descend 3, 6" steps w/sba, w/or w/o railing - Partially Met. Pt ascending/descending 3, 4" stairs w/ B UE support along 1 HR and CGA of therapist demonstrating step-to pattern. 3. Pt be able to complete formal balance test (i.e. TUG, 5xSTS, or Tinetti) w/or w/o A.D. - Not Met. Did not perform on this date d.t pain limitations. Patient personal LTG - (To be met by d/c or after w/f/u PT) 1. Be able to amb w/cane in houshold w/good balance & strength - Not Met. 2. Be able to go up/dn full stairs w/railing, cane, light to no assist. - Not Met. Pt. demonstrating mixed progress towards her goals since she was reassessed on 07/31. Limitations in progressing gait during today's session include complaints of pain. Recommend continued PT until 08/07/21 per previous recommendation and reassess goals again at that time. Pt is motivated to participate in PT sessions and would like to improve her walking distance. Pt. will d/c home after SWING (when goals met or progess plateaus/stops) via POV to spouse and may need to f/u w/HHPT or OPPT to reach her personal goals. Continue seeing pt. tomorrow for 5- 7 visits/week toward above mobility goals. Qualifiers: Laterality: bilateral Qualified Code(s): R29.898 - Other symptoms and signs involving the musculoskeletal system
[2021-08-05] MEDS: tiZANidine 4 MG TABLET PO SCH ×3 (06:17→21:29)
[2021-08-05] MEDS: LEVOTHYROXINE 25 MCG TABLET PO SCH (06:17)
[2021-08-05] MEDS: PANTOPRAZOLE 40 MG TABLET PO SCH (06:17)
[2021-08-05] MEDS: BUPRENORPHINE/NALOXONE 8-2 MG TAB SL SCH ×4 (06:18→21:29)
[2021-08-05] MEDS: GABAPENTIN 100 MG CAPSULE PO SCH ×3 (06:18→21:29)
[2021-08-05] MEDS: PRENATAL VITAMIN TABLET PO SCH (07:59)
[2021-08-05] MEDS: ASPIRIN EC 81 MG TABLET PO SCH (08:00)
[2021-08-05] MEDS: risperiDONE 1 MG TABLET PO SCH ×2 (08:00→21:30)
[2021-08-05] MEDS: gemfibroziL 600 MG TABLET PO SCH ×2 (08:00→21:29)
[2021-08-05] MEDS: NICOTINE 7 MG PATCH TOP SCH (08:00)
[2021-08-05] MEDS: DOCUSATE SODIUM 250 MG CAPSULE PO SCH (08:00)
[2021-08-05] MEDS: CHOLECALCIFEROL 25 MCG TABLET PO SCH (08:00)
[2021-08-05] MEDS: VENLAFAXINE 37.5 MG TABLET PO SCH (08:00)
[2021-08-05] MEDS: SENNA 8.6 MG TABLET PO SCH (08:00)
[2021-08-05] MEDS: METOPROLOL SUCCINATE 50 MG TABLET PO SCH (08:00)
[2021-08-05] MEDS: polyethylene glycoL 3350 17 GM PACKET PO SCH (08:01)
[2021-08-06] MEDS: LEVOTHYROXINE 25 MCG TABLET PO SCH (06:19)
[2021-08-06] MEDS: GABAPENTIN 100 MG CAPSULE PO SCH ×3 (06:19→21:27)
[2021-08-06] MEDS: PANTOPRAZOLE 40 MG TABLET PO SCH (06:19)
[2021-08-06] MEDS: tiZANidine 4 MG TABLET PO SCH ×3 (06:19→21:25)
[2021-08-06] MEDS: BUPRENORPHINE/NALOXONE 8-2 MG TAB SL SCH ×3 (06:40→21:58)
[2021-08-06] MEDS: polyethylene glycoL 3350 17 GM PACKET PO SCH (08:04)
[2021-08-06] MEDS: risperiDONE 1 MG TABLET PO SCH ×2 (08:05→21:27)
[2021-08-06] MEDS: gemfibroziL 600 MG TABLET PO SCH ×2 (08:05→21:27)
[2021-08-06] MEDS: PRENATAL VITAMIN TABLET PO SCH (08:05)
[2021-08-06] MEDS: NICOTINE 7 MG PATCH TOP SCH (08:05)
[2021-08-06] MEDS: DOCUSATE SODIUM 250 MG CAPSULE PO SCH ×2 (08:05→21:25)
[2021-08-06] MEDS: VENLAFAXINE 37.5 MG TABLET PO SCH (08:05)
[2021-08-06] MEDS: ASPIRIN EC 81 MG TABLET PO SCH (08:05)
[2021-08-06] MEDS: CHOLECALCIFEROL 25 MCG TABLET PO SCH (08:05)
[2021-08-06] MEDS: SENNA 8.6 MG TABLET PO SCH ×2 (08:05→21:25)
[2021-08-06] MEDS: METOPROLOL SUCCINATE 50 MG TABLET PO SCH (08:06)
[2021-08-07] MEDS: GABAPENTIN 100 MG CAPSULE PO SCH ×3 (05:54→21:14)
[2021-08-07] MEDS: LEVOTHYROXINE 25 MCG TABLET PO SCH (05:54)
[2021-08-07] MEDS: PANTOPRAZOLE 40 MG TABLET PO SCH (05:54)
[2021-08-07] MEDS: tiZANidine 4 MG TABLET PO SCH ×3 (05:54→21:13)
[2021-08-07] MEDS: BUPRENORPHINE/NALOXONE 8-2 MG TAB SL SCH ×3 (06:49→23:09)
[2021-08-07] MEDS: polyethylene glycoL 3350 17 GM PACKET PO SCH (08:17)
[2021-08-07] MEDS: CHOLECALCIFEROL 25 MCG TABLET PO SCH (08:17)
[2021-08-07] MEDS: DOCUSATE SODIUM 250 MG CAPSULE PO SCH ×2 (08:17→21:14)
[2021-08-07] MEDS: PRENATAL VITAMIN TABLET PO SCH (08:17)
[2021-08-07] MEDS: ASPIRIN EC 81 MG TABLET PO SCH (08:17)
[2021-08-07] MEDS: risperiDONE 1 MG TABLET PO SCH ×2 (08:17→21:13)
[2021-08-07] MEDS: gemfibroziL 600 MG TABLET PO SCH ×2 (08:17→21:14)
[2021-08-07] MEDS: SENNA 8.6 MG TABLET PO SCH ×2 (08:17→21:14)
[2021-08-07] MEDS: VENLAFAXINE 37.5 MG TABLET PO SCH (08:17)
[2021-08-07] MEDS: METOPROLOL SUCCINATE 50 MG TABLET PO SCH ×2 (08:18→08:26)
[2021-08-07] MEDS: NICOTINE 7 MG PATCH TOP SCH (08:18)
[2021-08-07] MEDS: FUROSEMIDE 20 MG TABLET PO SCH (08:25)
[2021-08-07] MEDS: LIDOCAINE PATCH 5% TOP PRN (11:38)
[2021-08-08] MEDS: GABAPENTIN 100 MG CAPSULE PO SCH (05:51)
[2021-08-08] MEDS: PANTOPRAZOLE 40 MG TABLET PO SCH (05:51)
[2021-08-08] MEDS: tiZANidine 4 MG TABLET PO SCH (05:51)
[2021-08-08] MEDS: LEVOTHYROXINE 25 MCG TABLET PO SCH (05:51)
[2021-08-08] MEDS: BUPRENORPHINE/NALOXONE 8-2 MG TAB SL SCH (06:23)
[2021-08-08] MEDS: PRENATAL VITAMIN TABLET PO SCH (07:47)
--- NOTE | 2021-08-08 07:50 | Discharge Plan ---
Discharge Plan Problem Reviewed?: Yes Disposition: Home Health Service Diet: Cardiac Activity Restrictions: Per Therapy Shower Restrictions: No Health Concerns: You were admitted to the long-term wing of the hospital here at [facility] due to deconditioning and requiring physical therapy. This admission was done on 07/24/21. Prior to this you had been treated in the hospital for altered mental status which was thought to be secondary to significant number of medications you take. Over the course of 2 weeks working with physical therapy your strength has improved significantly. You are being discharged home where you will also be seen by physical therapy and Occupational Therapy with [facility]. You are being discharged in stable condition. You may follow-up with your primary care physician as needed. No Smoking: If you smoke, Please STOP! Call for help.
--- NOTE | 2021-08-08 07:50 | DISCHARGE SUMMARY ---
Discharge Summary Admit Date: 07/24/21 Discharge Date: 08/08/21 Discharging Provider: Krissy Brewster Discharge Disposition: Home Health Service Discharge Facility Name: [facility] - DIAGNOSES Admission Diagnoses: Muscle Weakness Diabetes mellitus type 2, diet controlled Bipolar disorder Chronic kidney disease Hypertension Chronic pain syndrome Constipation Tobacco use Discharge Diagnoses with Status of Each Condition: Muscle Weakness; improving. Will continue working with Home health PT/OT Diabetes mellitus type 2, diet controlled: Chronic Bipolar disorder: Chronic. Stable. Continue home medication Chronic kidney disease Hypertension: Chronic. Stable Chronic pain syndrome Constipation: Improved. Continue taking fiber supplements at home Tobacco use: Chronic. Advised to quit smoking. - HPI History of Present Illness: This is a 71-year-old white female who was admitted with obtundation/altered mental status which was thought to be from polypharmacy including Suboxone use, UTI and dehydration. She received IV fluids and antibiotics and her mentation improved. She was found to be very deconditioned and needs physical therapy for rehab. She is being admitted to [facility] ([facility] swing bed status) for PT rehab. - HOSPITAL COURSE Hospital Course: Patient worked with physical therapy daily throughout the course of her 15-day stay at [facility] in [facility]. Also strength improved over the course of this time. She complained about chest pain fci into her SNF stay. This was worked up by obtaining an EKG and troponin levels which were negative. Her chest pain resolved on its own. Also in the middle of eating a piece of meat on 04 August 2021 she was having difficulty swallowing. She was administered a dose of glucagon IM and had difficulties/symptoms resolved within 45 minutes. She is being discharged home with home health PT/OT. It is also expected that she would follow-up with her stained glass painter when she has a contracted agreement for pain management to discuss her pain regimen. - ALLERGIES Allergies/Adverse Reactions: Allergies Allergy/AdvReac Type Severity Reaction Status Date / Time NSAIDS (Non-Steroidal Allergy Mild Hives Verified 07/06/21 11:01 Anti-Inflamma acetaminophen Allergy Hives Verified 07/06/21 11:01 green pepper Allergy Unknown Verified 07/06/21 11:01 lisinopril Allergy Unknown Verified 07/06/21 11:01 Sulfa (Sulfonamide AdvReac Mild Rash Verified 07/06/21 11:01 Antibiotics) ondansetron [From Zofran] AdvReac Dizziness Verified 07/20/21 22:40 - MEDICATIONS Home Medications: Ambulatory Orders Medication Instructions Recorded Confirmed Levothyroxine Sodium 50 mcg PO QDAC #30 07/17/19 07/23/21 gemfibroziL [Gemfibrozil] 600 mg PO BID #60 07/17/19 07/23/21 Cholecalciferol [Vitamin D3] 25 mcg PO DAILY 08/15/20 07/23/21 Gabapentin [Neurontin] 100 mg PO TID 08/15/20 07/23/21 Aspirin [Aspirin EC] 81 mg PO DAILY 12/27/20 07/23/21 Docusate Sodium 250Mg Capsule 250 - 500 mg PO DAILY 12/29/20 07/23/21 [Colace 250Mg Capsule] Furosemide [Lasix] 20 mg PO DAILY 03/05/21 07/23/21 Omeprazole Magnesium 20 mg PO DAILY 03/05/21 07/23/21 Buprenorphine HCl/Naloxone HCl 1 tab SL TID 03/27/21 07/23/21 [Suboxone 8-2 mg Tab] Metoprolol Succinate [Toprol Xl] 50 mg PO DAILY 07/06/21 07/23/21 Tizanidine HCl 2 mg PO TID 07/06/21 07/23/21 Min Oil/Dimeth/Coconut Oil Crm 1 applic TOP PRN PRN 07/23/21 07/23/21 [Cavilon] Nicotine 7 mg Patch [Nicoderm] 1 patch TOP DAILY patch 07/23/21 07/23/21 Simethicone [Mylicon] 80 mg PO 0900,1300,1800,2100 PRN 07/23/21 07/23/21 tablet Venlafaxine [Effexor] 150 mg PO DAILY tablet 07/23/21 07/23/21 Zinc Oxide 20% Oint [Zinc Oxide] 1 applic TOP PRN PRN 07/23/21 07/23/21 oxyCODONE [Roxicodone] 5 mg PO Q8HR PRN tablet 07/23/21 07/23/21 polyethylene glycoL 3350 [Miralax] 17 gm PO DAILY packet 07/23/21 07/23/21 risperiDONE [RisperDAL] 1 mg PO BID tablet 07/23/21 07/23/21 - PHYSICAL EXAM AT DISCHARGE General Appearance: positive: No acute distress, Alert Eyes Bilateral: positive: PERRL, EOMI ENT: positive: No signs of dehydration Neck: positive: No JVD, Trachea midline Respiratory: positive: Chest non-tender, No respiratory distress, Breath sounds nml. negative: Wheezes, Rales, Rhonchi Cardiovascular: positive: Regular rate & rhythm, No murmur Abdomen: positive: Non-tender, No organomegaly, Nml bowel sounds, No distention. negative: Guarding, Rebound Back: positive: Nml inspection Skin: positive: Color nml, No rash, Warm, Dry Extremities: positive: Non-tender, Full ROM, Nml appearance, No pedal edema Neurologic/Psychiatric: positive: Oriented x3, Motor nml, Mood/affect nml - TIME SPENT Time Spent in Discharge (Minutes): 15
[2021-08-08] MEDS: METOPROLOL SUCCINATE 50 MG TABLET PO SCH (08:45)
[2021-08-08] MEDS: ASPIRIN EC 81 MG TABLET PO SCH (08:45)
[2021-08-08] MEDS: DOCUSATE SODIUM 250 MG CAPSULE PO SCH (08:46)
[2021-08-08] MEDS: VENLAFAXINE 37.5 MG TABLET PO SCH (08:46)
[2021-08-08] MEDS: SENNA 8.6 MG TABLET PO SCH (08:46)
[2021-08-08] MEDS: polyethylene glycoL 3350 17 GM PACKET PO SCH (08:47)
[2021-08-08] MEDS: NICOTINE 7 MG PATCH TOP SCH (08:47)
[2021-08-08] MEDS: CHOLECALCIFEROL 25 MCG TABLET PO SCH (08:47)
[2021-08-08] MEDS: gemfibroziL 600 MG TABLET PO SCH (08:47)
[2021-08-08] MEDS: risperiDONE 1 MG TABLET PO SCH (08:51)
[2021-08-08 09:56] VITALS: BP 148/55
== END 2021-08-08 14:06 | disposition home health service (06) | DRG 556 ==
LOC: UNDOADMIN 13:14 → MS2 13:14
PROVIDERS: ADMIT Internal Medicine; ATTEND Internal Medicine
DX: M62.81 Muscle weakness (generalized) (principal); E11.22 Type 2 diabetes mellitus with diabetic chronic kidney disease; I12.9 Hypertensive chronic kidney disease with stage 1 through stage 4 chronic kidney disease, or unspecified chronic kidney disease; F17.210 Nicotine dependence, cigarettes, uncomplicated; N18.9 Chronic kidney disease, unspecified; G89.4 Chronic pain syndrome; K59.00 Constipation, unspecified; R07.9 Chest pain, unspecified; F31.9 Bipolar disorder, unspecified; R00.1 Bradycardia, unspecified; T18.128A Food in esophagus causing other injury, initial encounter; M54.50 Low back pain, unspecified; R29.898 Other symptoms and signs involving the musculoskeletal system; R13.10 Dysphagia, unspecified; Y92.230 Patient room in hospital as the place of occurrence of the external cause; X58.XXXA Exposure to other specified factors, initial encounter; Z86.718 Personal history of other venous thrombosis and embolism; Z79.899 Other long term (current) drug therapy; Z79.82 Long term (current) use of aspirin
CPT/HCPCS: 36415; 84484; 93005

== ENCOUNTER 2021-08-18 06:21 | Outpatient (CLI) | payer MEDICARE, MEDICAID | END 2021-08-18 06:22 | disposition critical access hospital (66) | LOC: EMS 06:21 | DX: R41.82 Altered mental status, unspecified (principal); R45.89 Other symptoms and signs involving emotional state | CPT/HCPCS: A0425; A0427 ==

== ENCOUNTER 2021-08-18 06:53 | Observation (INO) | payer MEDICARE, MEDICAID ==
[2021-08-18] MEDS ORDERED: SODIUM CHLORIDE 0.9% 1,000 ML IV STA (07:09)
[2021-08-18 07:31] LABS: BASOPHILS % (AUTO) 0.4 %; EOSINOPHILS # (AUTO) 0.2 10^3/uL (0.0-0.7); EOSINOPHILS % (AUTO) 1.6 %; HCT - HEMATOCRIT 37.8 % (37.0-47.0); HGB - HEMOGLOBIN 12.1 g/dL (12.0-16.0); LYMPHOCYTES # (AUTO) 0.8 10^3/uL (1.5-3.5); LYMPHOCYTES % (AUTO) 7.9 %; MEAN CORPUSCULAR HEMOGLOBIN 29.2 pg (27.0-31.0); MEAN CORPUSCULAR VOLUME 91.3 fL (81.0-99.0); MEAN PLATELET VOLUME 11.1 fL (7.9-10.8); MONOCYTES # (AUTO) 0.5 10^3/uL (0.0-1.0); MONOCYTES % (AUTO) 5.6 %; NEUTROPHILS % (AUTO) 84.2 %; PLT - PLATELET COUNT 242 10^3/uL (130-450); RED BLOOD COUNT 4.14 10^6/uL (4.20-5.40); RED CELL DISTRIBUTION WIDTH 14.5 % (12.0-15.0); WHITE BLOOD COUNT 9.5 x10^3/uL (4.8-10.8)
[2021-08-18 07:32] LABS: SLIDE REVIEW? Indicated
[2021-08-18 08:02] LABS: ALBUMIN 3.9 g/dL (3.2-5.5); BILIRUBIN,TOTAL 0.2 mg/dL (0.2-1.0); CREATININE 2.1 mg/dL (0.4-1.0); TOTAL PROTEIN 7.7 g/dL (6.7-8.2)
[2021-08-18 08:05] LABS: POTASSIUM 4.9 mmol/L (3.5-5.0)
--- NOTE | 2021-08-18 08:10 | CT Report ---
PROCEDURE: HEAD WO INDICATIONS: ALOC TECHNIQUE: Noncontrast 4.5 mm thick angled axial sections acquired from the foramen magnum to the vertex. For r adiation dose reduction, the following was used: automated exposure control, adjustment of mA and/or kV according to patient size. COMPARISON: CT head without, 12/30/2020. FINDINGS: Image quality: There are motion artifacts. CSF spaces: Basal cisterns are patent. No extra-axial fluid collections. Ventricles are normal in size and shape. Brain: Mild cerebral volume loss and ventricular white matter chronic small vessel ischemic changes are present. No midline shift. No intracranial masses or hemorrhage. Cam-white matter interface is normal. Skull and face: Calvarium and visualized facial bones are intact, without suspicious lesions. Sinuses: Visualized sinuses and mastoids are clear. IMPRESSION: No acute intracranial abnormalities. Reviewed by: Rachell Alvarez MD on 08/18/2021 8:08 AM PDT Approved by: Rachell Alvarez MD on 08/18/2021 8:08 AM PDT Station ID: [id number]
[2021-08-18 08:30] LABS: BILIRUBIN,URINE NEGATIVE (NEGATIVE); CLARITY,URINE SL. CLOUDY (CLEAR); GLUCOSE, URINE (UA) NEGATIVE (NEGATIVE); KETONES,URINE (UA) NEGATIVE (NEGATIVE); LEUKOCYTE ESTERASE, URINE MODERATE (NEGATIVE); NITRITE,URINE NEGATIVE (NEGATIVE); OCCULT BLOOD,URINE SMALL (NEGATIVE); PROTEIN,URINE 100 mg/dL (NEGATIVE); UROBILINOGEN,URINE 0.2 (NORMAL) E.U./dL (NORMAL)
[2021-08-18 08:42] LABS: BACTERIA,URINE Few /HPF (None Seen); RBC,URINE 0-5 /HPF (0-5); SQUAMOUS EPITHELIAL CELL,UR MOD Squamous (<= Few); WBC CLUMPS,URINE PRESENT; WBC,URINE >25 /HPF (0-5)
[2021-08-18] MEDS ORDERED: LORazepam 2 MG/ML VIAL IVP STA (08:53)
[2021-08-18] MEDS ORDERED: ONDANSETRON ODT 4 MG TABLET TL PRN (09:28)
[2021-08-18] MEDS ORDERED: ONDANSETRON 4 MG/2 ML VIAL IVP PRN (09:28)
--- NOTE | 2021-08-18 09:37 | ED Physician Documentation ---
History of Present Illness - Stated complaint Stated Complaint: MHE - Chief complaint Chief Complaint: Neuro - History obtained from History obtained from: Family, EMS - Additonal information Additional information: The patient is brought to the emergency department by EMS for a chief complaint of altered level of consciousness. She lives at home with her , who recently had a CVA and is consumed with his own medical needs at this time. The patient apparently has been becoming increasingly confused and altered over the last couple of days. She has not had fevers that the knows of. According to records, the patient takes Suboxone and Ativan. The does not think that the patient has been taking extra. He usually sets her meds up for her and then she takes them. The patient has been mostly bedbound for the last 15 years, due to ongoing back pain, but had a recent surgery over the last several months. She has had frequent episodes of delirium from UTI versus her m edications. She also has a history of anxiety and bipolar disorder. Her last admission was about 3 weeks ago with discharge 10 days ago. She does have a history of abusing prescription medications, but apparently her PCP has addressed this in the past. According to the , the patient has just been calling on the same words over and over again, such as "Please! Please! Please!", or "I hurt! I hurt!" denies any history for the patient of a diagnosis of dementia, and states that when she is not delirious, she is actually alert and answers questions fairly well on her own. states that they have a caregiver who comes in for several hours every day on weekdays to help out. The patient is not able to offer any information on her own, other than to say "I hurt". She cannot specify where and just says the words over and over again when I address her. Medics report that the patient was quite agitated and combative when they picked her up, and so they gave her Versed in route. Since then, she has been fairly drowsy. Review of Systems Unable to obtain: Confused PD PAST MEDICAL HISTORY - Past Medical History Past Medical History: Yes Cardiovascular: Hypertension, High cholesterol, Deep vein thrombosis, Murmur Respiratory: Asthma, COPD, Shortness of breath Neuro: Peripheral neuropathy Endocrine/Autoimmune: Type 2 diabetes GI: GERD, Chronic constipation, Pancreatitis STATE'S ATTORNEY: None : Incontinence, Chronic bladder infection HEENT: None Psych: Anxiety, Bipolar disorder, Other Musculoskeletal: Osteoarthritis, Fatigue, Chronic back pain, Other Derm: Other - Past Surgical History Past Surgical History: Yes General: EGD, Colonoscopy Ortho: Knee replacement, Spine surgery /STATE'S ATTORNEY: section HEENT: Tonsil/Adenoidectomy - Present Medications Home Medications: Ambulatory Orders Medication Instructions Recorded Confirmed Levothyroxine Sodium 50 mcg PO QDAC #30 07/17/19 08/18/21 gemfibroziL [Gemfibrozil] 600 mg PO BID #60 07/17/19 08/18/21 Cholecalciferol [Vitamin D3] 25 mcg PO DAILY 08/15/20 08/18/21 Gabapentin [Neurontin] 100 mg PO TID 08/15/20 08/18/21 Aspirin [Aspirin EC] 81 mg PO DAILY 12/27/20 08/18/21 Furosemide [Lasix] 20 mg PO DAILY 03/05/21 08/18/21 Omeprazole Magnesium 20 mg PO DAILY 03/05/21 08/18/21 Buprenorphine HCl/Naloxone HCl 1 tab SL TID 03/27/21 08/18/21 [Suboxone 8-2 mg Tab] Metoprolol Succinate [Toprol Xl] 50 mg PO DAILY 07/06/21 08/18/21 Tizanidine HCl 2 mg PO TID 07/06/21 08/18/21 Min Oil/Dimeth/Coconut Oil Crm 1 applic TOP PRN PRN 07/23/21 08/18/21 [Cavilon] Zinc Oxide 20% Oint [Zinc Oxide] 1 applic TOP PRN PRN 07/23/21 08/18/21 risperiDONE [RisperDAL] 1 mg PO BID tablet 07/23/21 08/18/21 LORazepam [Ativan] 0.5 mg PO BID PRN 08/18/21 08/18/21 Venlafaxine HCl [Effexor Xr] 150 mg PO DAILY 08/18/21 08/18/21 polyethylene glycoL 3350 [Miralax] 17 gm PO DAILY PRN 08/18/21 08/18/21 - Allergies Allergies/Adverse Reactions: Allergies Allergy/AdvReac Type Severity Reaction Status Date / Time NSAIDS (Non-Steroidal Allergy Mild Hives Verified 08/18/21 07:16 Anti-Inflamma acetaminophen Allergy Hives Verified 08/18/21 07:16 green pepper Allergy Unknown Verified 08/18/21 07:16 lisinopril Allergy Unknown Verified 08/18/21 07:16 Sulfa (Sulfonamide AdvReac Mild Rash Verified 08/18/21 07:16 Antibiotics) ondansetron [From Zofran] AdvReac Dizziness Verified 08/18/21 07:16 - Social History Does the pt smoke?: Yes Smoking Status: Current every day smoker Does the pt drink ETOH?: No Does the pt have substance abuse?: No - Immunizations Immunizations are current?: Yes Immunizations: TDAP >10years/unknown - POLST Patient has POLST: No POLST Status: Full Code PD ED PE NORMAL - Vitals Vital signs reviewed: Yes - General General: No acute distress, Well developed/nourished - HEENT HEENT: Atraumatic, PERRL, EOMI, Moist mucous membranes - Neck Neck: Supple, no meningeal sign - Cardiac Cardiac: RRR, No murmur, Strong equal pulses - Respiratory Respiratory: No respiratory distress, Clear bilaterally - Abdomen Abdomen: Soft, Non tender, Non distended - Derm Derm: Normal color, Warm and dry, No rash - Extremities Extremities: No deformity, Other (1+ bilateral pitting edema, Lower extremities.) - Neuro Neuro: No motor deficit, No sensory deficit, Other (The patient is drowsy, but does respond to her name being called. She is able to answer "yes" or "no" questions, but quickly and easily begins to perseverate on certain words or phrases. In between, she is intermittently crying out in an incoherent manner.) Results - Vitals Vitals: Oxygen O2 Source [Without Activity] Room air O2 Source Room air - Labs Labs: Laboratory Tests 08/18/21 08/18/21 08/18/21 07:20 07:20 07:20 WBC 9.5 RBC 4.14 L Hgb 12.1 Hct 37.8 MCV 91.3 MCH 29.2 MCHC 32.0 RDW 14.5 Plt Count 242 MPV 11.1 H Neut # (Auto) 8.0 H Lymph # (Auto) 0.8 L Jerome # (Auto) 0.5 Eos # (Auto) 0.2 Baso # (Auto) 0.0 Absolute Nucleated RBC 0.00 Nucleated RBC % 0.0 Manual Slide Review Indicated Sodium 141 Potassium 4.9 Chloride 105 Carbon Dioxide 21 Anion Gap 15.0 H BUN 45 H Creatinine 2.1 H Estimated GFR (MDRD) 23 L Glucose 125 H Calcium 10.0 Total Bilirubin 0.2 AST 24 ALT 11 Alkaline Phosphatase 111 Total Protein 7.7 Albumin 3.9 Globulin 3.8 Albumin/Globulin Ratio 1.0 Lipase 26 TSH 1.49 Urine Color Urine Clarity Urine pH Ur Specific [place] Urine Protein Urine Glucose (UA) Urine Ketones Urine Occult Blood Urine Nitrite Urine Bilirubin Urine Urobilinogen Ur Leukocyte Esterase Urine RBC Urine WBC Urine WBC Clumps Ur Squamous Epith Cells Urine Bacteria Ur Microscopic Review Urine Culture Comments Urine Opiates Screen Ur Oxycodone Screen Urine Methadone Screen Ur Propoxyphene Screen Ur Barbiturates Screen Ur Tricyclics Screen Ur Phencyclidine Scrn Ur Amphetamine Screen U Methamphetamines Scrn U Benzodiazepines Scrn Urine Cocaine Screen U Cannabinoids Screen 08/18/21 08/18/21 08:18 08:18 WBC RBC Hgb Hct MCV MCH MCHC RDW Plt Count MPV Neut # (Auto) Lymph # (Auto) Jerome # (Auto) Eos # (Auto) Baso # (Auto) Absolute Nucleated RBC Nucleated RBC % Manual Slide Review Sodium Potassium Chloride Carbon Dioxide Anion Gap BUN Creatinine Estimated GFR (MDRD) Glucose Calcium Total Bilirubin AST ALT Alkaline Phosphatase Total Protein Albumin Globulin Albumin/Globulin Ratio Lipase TSH Urine Color YELLOW Urine Clarity SL. CLOUDY Urine pH 6.0 Ur Specific [place] 1.020 Urine Protein 100 H Urine Glucose (UA) NEGATIVE Urine Ketones NEGATIVE Urine Occult Blood SMALL H Urine Nitrite NEGATIVE Urine Bilirubin NEGATIVE Urine Urobilinogen 0.2 (NORMAL) Ur Leukocyte Esterase MODERATE H Urine RBC 0-5 Urine WBC >25 H Urine WBC Clumps PRESENT Ur Squamous Epith Cells MOD Squamous H Urine Bacteria Few Ur Microscopic Review INDICATED Urine Culture Comments NOT INDICATED Urine Opiates Screen NEGATIVE Ur Oxycodone Screen NEGATIVE Urine Methadone Screen NEGATIVE Ur Propoxyphene Screen NEGATIVE Ur Barbiturates Screen NEGATIVE Ur Tricyclics Screen NEGATIVE Ur Phencyclidine Scrn NEGATIVE Ur Amphetamine Screen NEGATIVE U Methamphetamines Scrn NEGATIVE U Benzodiazepines Scrn NEGATIVE Urine Cocaine Screen NEGATIVE U Cannabinoids Screen POSITIVE H - Rads (name of study) head CT Radiology: Final report received, EMP read indepedently, See rad report (nad) PD MEDICAL DECISION MAKING - ED course Complexity details: reviewed old records, reviewed results, re-evaluated patient, considered differential, d/w family, d/w etl consultant ED course: The patient was evaluated in the emergency department for various potential ca uses of altered mental status. CT scan of the head was unremarkable. Cath urine specimen was somewhat contaminated, and was positive, but due to contamination, was deemed Not a candidate for culture. Drug screen was ordered and is pending. Laboratory studies showed renal insufficiency which was somewhat worse than the last time she was here and tested, but was within previous fluctuations. The patient was given a liter of 0.9 normal saline. I discussed her case with Dr. Aguero, who was on-call for hospitalist service and he did agree to admit the patient for observation. We will hold off on antibiotics for now, as the urine is contaminated. Departure - Departure Disposition: ED Place in Observation Clinical Impression: Delirium, Polypharmacy Condition: Serious Discharge Date/Time: 08/18/21 10:30
[2021-08-18 10:10] LABS: MUDS CUTOFF CONCENTRATIONS CUTOFF CONC BELOW:
[2021-08-18 10:25] LABS: AMPHETAMINE SCREEN,URINE NEGATIVE (NEGATIVE); BARBITURATE SCREEN,UR NEGATIVE (NEGATIVE); BENZODIAZEPINES SCREEN, URINE NEGATIVE (NEGATIVE); COCAINE SCREEN URINE NEGATIVE (NEGATIVE); METHADONE SCREEN, URINE NEGATIVE (NEGATIVE); METHAMPHETAMINES SCREEN, URINE NEGATIVE (NEGATIVE); OPIATE SCREEN, URINE NEGATIVE (NEGATIVE); OXYCODONE SCREEN, URINE NEGATIVE (NEGATIVE); PROPOXYPHENE SCREEN, URINE NEGATIVE (NEGATIVE); THC CANNABINOID SCREEN, URINE POSITIVE (NEGATIVE); TRICYCLIC ANTIDEPRESSANT,URINE NEGATIVE (NEGATIVE)
[2021-08-18 10:39] LABS: B. PARAPERTUSSIS- RESP PCR PAN NOT DETECTED; B. PERTUSSIS- RESP PCR PANEL NOT DETECTED; C. PNEUMONIAE- RESP PCR PANEL NOT DETECTED; CORONAVIRUS 229E-RESP PCR NOT DETECTED; CORONAVIRUS HKU1-RESP PCR NOT DETECTED; CORONAVIRUS NL63-RESP PCR NOT DETECTED; CORONAVIRUS OC43-RESP PCR NOT DETECTED; HUMAN METAPNEUMOVIRUS NOT DETECTED; INFLUENZA A- RESP PCR PANEL NOT DETECTED; INFLUENZA B - RESP PCR PANEL NOT DETECTED; M. PNEUMONIAE- RESP PCR PANEL NOT DETECTED; PARAINFLUENZA VIRUS 1 NOT DETECTED; PARAINFLUENZA VIRUS 2 NOT DETECTED; PARAINFLUENZA VIRUS 3 NOT DETECTED; PARAINFLUENZA VIRUS 4 NOT DETECTED; RHINOVIRUS/ENTEROVIRUS NOT DETECTED; RSV- RESP PCR PANEL NOT DETECTED; SARS-CoV-2 -RESP PCR PANEL NOT DETECTED
[2021-08-18] MEDS: LACTATED RINGERS 1,000 ML IV SCH ×2 (11:10→20:44)
--- NOTE | 2021-08-18 11:37 | HISTORY & PHYSICAL EXAMINATION ---
Chief Complaint - Chief Complaint Chief Complaint: Confusion History of Present Illness - Admitted From Admitted From:: Home - History Obtained From Records Reviewed: [facility] History obtained from: ER Physician, Spouse, EMR Exam Limitations: Patient is altered and unable to provide a history. - History of Present Illness HPI Comment/Other: This is a 71-year-old female with a past medical history significant for chronic kidney disease, bipolar disorder, peripheral neuropathy, chronic pain who presents today for progressive confusion. The history is obtained from the patient's spouse and the ER physician as the patient is altered and unable to provide a history. Her tells me that she was doing well after being discharged from our swing bed last month. He states she was more active and walking more frequently. This only lasted for about 1 to 2 weeks before she had progressive decline in her functional status. He states she now probably sits in bed and will only walk to the bathroom with a walker before going back to bed. He states she become more confused over the past 2 days to the point where yesterday she was just yelling out asking for help. He eventually called EMS this morning as she was agreeable to it. He states that he gives the patient her medications and he does not believe she was taking them inappropriately. He states she does not drink alcohol but still does smoke 1 to 2 cigarettes a day. The patient on my evaluation, is able to tell me to the hospital when asked otherwise she mumbles incoherent words before quickly dozing off. In the emergency department, her labs were significant for mild acute kidney injury with a creatinine of 2.1. CT of the head showed no acute abnormalities. She did receive Versed when EMS saw her and she received a dose of Ativan in the emergency department. I did discuss goals of care with the patient's spouse and he believes that she would want to be a full code. History - Past Medical History Cardiovascular: reports: Hypertension, High cholesterol, Deep vein thrombosis Respiratory: reports: Asthma, COPD, Shortness of breath Neuro: reports: Peripheral neuropathy Endocrine/Autoimmune: reports: Type 2 diabetes GI: reports: GERD, Chronic constipation, Pancreatitis RESTAURANT ATTENDANT: reports: None : reports: Incontinence, Chronic bladder infection HEENT: reports: None Psych: reports: Anxiety, Bipolar disorder, Other Musculoskeletal: reports: Osteoarthritis, Fatigue, Chronic back pain, Other Derm: reports: Other MRSA Hx?: No - Past Surgical History General: reports: EGD, Colonoscopy Ortho: reports: Knee replacement, Spine surgery /RESTAURANT ATTENDANT: reports: section HEENT: reports: Tonsil/Adenoidectomy - Family & Social History Family History: Mother: , CAD, Father: , CAD Family History Comment/Other: I am unable to update her family history due to her encephalopathy but review of prior records revealed that both her mother and father of heart disease at the age of 57. Living arrangement: At home Living Situation: With spouse/s.o. Social History Notes: Her tells me that she used to smoke a pack a day but now smokes about 2 cigarettes a day. He denies any alcohol use. - Substance History Use: Uses substance without health or social issues: Tobacco (hx) - POLST Patient has POLST: No Meds/Allgy - Home Medications Home Medications: Ambulatory Orders Medication Instructions Recorded Confirmed Levothyroxine Sodium 50 mcg PO QDAC #30 07/17/19 08/18/21 gemfibroziL [Gemfibrozil] 600 mg PO BID #60 07/17/19 08/18/21 Cholecalciferol [Vitamin D3] 25 mcg PO DAILY 08/15/20 08/18/21 Gabapentin [Neurontin] 100 mg PO TID 08/15/20 08/18/21 Aspirin [Aspirin EC] 81 mg PO DAILY 12/27/20 08/18/21 Furosemide [Lasix] 20 mg PO DAILY 03/05/21 08/18/21 Omeprazole Magnesium 20 mg PO DAILY 03/05/21 08/18/21 Buprenorphine HCl/Naloxone HCl 1 tab SL TID 03/27/21 08/18/21 [Suboxone 8-2 mg Tab] Metoprolol Succinate [Toprol Xl] 50 mg PO DAILY 07/06/21 08/18/21 Tizanidine HCl 2 mg PO TID 07/06/21 08/18/21 Min Oil/Dimeth/Coconut Oil Crm 1 applic TOP PRN PRN 07/23/21 08/18/21 [Cavilon] Zinc Oxide 20% Oint [Zinc Oxide] 1 applic TOP PRN PRN 07/23/21 08/18/21 risperiDONE [RisperDAL] 1 mg PO BID tablet 07/23/21 08/18/21 LORazepam [Ativan] 0.5 mg PO BID PRN 08/18/21 08/18/21 Venlafaxine HCl [Effexor Xr] 150 mg PO DAILY 08/18/21 08/18/21 polyethylene glycoL 3350 [Miralax] 17 gm PO DAILY PRN 08/18/21 08/18/21 - Allergies Allergies/Adverse Reactions: Allergies Allergy/AdvReac Type Severity Reaction Status Date / Time NSAIDS (Non-Steroidal Allergy Mild Hives Verified 08/18/21 07:16 Anti-Inflamma acetaminophen Allergy Hives Verified 08/18/21 07:16 green pepper Allergy Unknown Verified 08/18/21 07:16 lisinopril Allergy Unknown Verified 08/18/21 07:16 Sulfa (Sulfonamide AdvReac Mild Rash Verified 08/18/21 07:16 Antibiotics) ondansetron [From Zofran] AdvReac Dizziness Verified 08/18/21 07:16 Review of Systems - All Other Systems All Other Systems: reports: Other (Unable to obtain due to her encephalopathy.) Prior Level of Functionality: She met with a walker at baseline. She appears to be dependent on her ADLs given her poor functional baseline. Exam - Vital Signs Reviewed Vital Signs: Yes Vital Signs: Vital Signs x48h Temp Pulse Pulse Resp BP BP Pulse Ox 08/18/21 11:26 153/60 H 08/18/21 11:10 36.7 C 72 20 96 08/18/21 09:41 62 12 156/62 H 100 08/18/21 06:58 35.7 C L 66 14 156/93 H 99 - Physical Exam General Appearance: positive: Other (She is quite lethargic. Will open her eyes when aroused but will quickly doze off.) Eyes Bilateral: positive: PERRL, Conjunctivae nml ENT: positive: Dry mucous membranes. negative: No signs of dehydration Respiratory: positive: No respiratory distress, Other (Diminished.). negative: Wheezes, Rales Cardiovascular: positive: Regular rate & rhythm, No murmur. negative: Tachycardia Abdomen: positive: Nml bowel sounds, No distention, Tenderness (She appears to have mild tenderness on exam.). negative: Guarding, Rebound Skin: positive: Other (She has evidence of chronic venous stasis changes of the bilateral lower extremities.) Extremities: positive: Pedal edema (She has trace to +1 edema in bilateral lower extremities.) Neurologic/Psychiatric: positive: Other (Her speech is mumbled/slurred. She repeats random words and her speech is not really coherent. She does not appear to have focal deficits but neurologic exam is limited due to her lethargy.). negative: Disoriented to person, Disoriented to place (She is able to tell me she is at the hospital) Conclusion/Plan - Problem List (1) Acute metabolic encephalopathy Conclusion/Plan: This appears to multifactorial and I suspect likely related to polypharmacy and dehydration. I believe she is acutely more lethargic upon my evaluation likely due to the Versed and the Ativan she received in route with EMS and in our emergency department. CT head showed no acute abnormalities. Her urinalysis was not a clean-catch and although she has reportedly had multiple urinary tract infection in the past, she usually improved with IV fluids alone and oftentimes her cultures have no growth. She has no fever or white blood cell count to suggest infection she will hold off on antibiotics. We will check a B12 and folate level given this was borderline low in the past. We will hold all sedatives at this time. We will hydrate her with lactated Ringer's. We will check a urine toxicology screen. If no improvement, we can consider MRI but low suspicion for stroke at this time. (2) Acute kidney injury superimposed on CKD Conclusion/Plan: This is likely prerenal related to volume depletion. Her creatinine is 2.1 and her baseline is around 1.6. We will hydrated with lactated Ringer's and recheck renal function in the morning. (3) Bipolar disorder Conclusion/Plan: She was previously on lithium for this but is now on risperidone. She also takes venlafaxine. We will hold this for the time being and look to resume tomorrow if her mentation improves. (4) Chronic pain syndrome Conclusion/Plan: She is on Suboxone for this. We will look to resume this as soon as possible. (5) Peripheral neuropathy Conclusion/Plan: We will hold her home gabapentin for the time being but we will look to resume this tomorrow if her mentation improves. Qualifiers: Peripheral neuropathy type: polyneuropathy associated with underlying disease Qualified Code(s): G63 - Polyneuropathy in diseases classified elsewhere (6) HTN (hypertension) Conclusion/Plan: She is currently hypertensive with systolics in the 150s. We will resume her home metoprolol when she is able to take p.o. Qualifiers: Hypertension type: primary hypertension Qualified Code(s): I10 - Essential (primary) hypertension (7) Hypothyroidism Conclusion/Plan: Her TSH is within normal limits. We will look to resume her Synthroid tomorrow morning. - Lab Results Lab results reviewed: Yes Fish Bones: 08/18/21 07:20 08/18/21 07:20 - Diagnostic Imaging Results Diagnostic Imaging Results: positive: Final report reviewed Core Measures - Anticipated LOS I expect patient to be DC'd or transferred within 96 hours.: Yes - Issues Hospital Issues and Management Plan: 71-year-old female with history of bipolar disorder and chronic pain who presents for progressive confusion found to be encephalopathic and dehydrated with mild acute kidney injury. We will admit for IV fluids and to hold all sedatives. - DVT/VTE - Prophylaxis VTE/DVT Device ordered at admit?: Yes VTE/DVT Prophylaxis med ordered at admit?: Yes
--- NOTE | 2021-08-18 11:43 | PHARMACY PROGRESS NOTE ---
- Best Possible Medication History Admit Date and Time: 08/18/21 0928 Processed by: Nursing Medication History completed: Yes Patient Interview: Completed Secondary Source(s): Spouse/Significant other, Pharmacy records, Insurance records As the person ultimately responsible for medication therapy, providers are able to order a medication from an existing home medication list in [facility] via the "Reconcile Routine" prior to Confirmation of that medication by director of sales support. Such practice is discouraged except when the physician, in their clinical judgment, deems that a medical need exists for a medication without regard to previous use.
[2021-08-18] MEDS ORDERED: HALOPERIDOL 5 MG/ML VIAL IVP PRN (13:27)
[2021-08-18] MEDS: SODIUM CHLORIDE FLUSH 0.9% 10 ML SYRINGE IVP PRN (13:45)
[2021-08-18] MEDS: SODIUM CHLORIDE FLUSH 0.9% 10 ML SYRINGE IVP SCH (16:06)
[2021-08-18] MEDS: ZINC OXIDE 20% OINT 30 GM TUBE TOP PRN (19:06)
[2021-08-18] MEDS: HEPARIN 5,000 UNIT/ML VIAL SUBQ SCH (20:48)
[2021-08-19 05:36] LABS: BASOPHILS % (AUTO) 0.5 %; EOSINOPHILS # (AUTO) 0.2 10^3/uL (0.0-0.7); EOSINOPHILS % (AUTO) 3.9 %; HCT - HEMATOCRIT 32.7 % (37.0-47.0); HGB - HEMOGLOBIN 10.4 g/dL (12.0-16.0); LYMPHOCYTES % (AUTO) 18.5 %; MEAN CORPUSCULAR HGB CONC 31.8 g/dL (32.0-36.0); MEAN CORPUSCULAR VOLUME 91.1 fL (81.0-99.0); MEAN PLATELET VOLUME 10.1 fL (7.9-10.8); MONOCYTES # (AUTO) 0.5 10^3/uL (0.0-1.0); MONOCYTES % (AUTO) 9.1 %; NEUTROPHILS # (AUTO) 3.8 10^3/uL (1.5-6.6); NEUTROPHILS % (AUTO) 67.8 %; PLT - PLATELET COUNT 232 10^3/uL (130-450); RED BLOOD COUNT 3.59 10^6/uL (4.20-5.40); RED CELL DISTRIBUTION WIDTH 14.6 % (12.0-15.0); WHITE BLOOD COUNT 5.6 x10^3/uL (4.8-10.8)
[2021-08-19 05:43] LABS: CALCIUM 9.5 mg/dL (8.5-10.3); CREATININE 1.9 mg/dL (0.4-1.0); POTASSIUM 3.9 mmol/L (3.5-5.0)
[2021-08-19 06:14] LABS: FOLATE 20.6 ng/mL (5.90 - >24.8)
[2021-08-19] MEDS: SODIUM CHLORIDE FLUSH 0.9% 10 ML SYRINGE IVP SCH ×3 (06:22→16:25)
[2021-08-19] MEDS: PANTOPRAZOLE 40 MG TABLET PO SCH (06:54)
[2021-08-19] MEDS: LEVOTHYROXINE 25 MCG TABLET PO SCH (06:54)
[2021-08-19] MEDS ORDERED: LORazepam 0.5 MG TABLET PO PRN (07:50)
[2021-08-19] MEDS ORDERED: DEXTROSE 5%-0.45% NACL 1,000 ML IV SCH (08:00)
[2021-08-19] MEDS ORDERED: METOPROLOL SUCCINATE 50 MG TABLET PO SCH (09:00)
[2021-08-19] MEDS: GABAPENTIN 100 MG CAPSULE PO SCH ×3 (09:01→21:05)
[2021-08-19] MEDS: HEPARIN 5,000 UNIT/ML VIAL SUBQ SCH ×2 (09:02→21:05)
[2021-08-19] MEDS: ASPIRIN EC 81 MG TABLET PO SCH (09:02)
[2021-08-19] MEDS: CHOLECALCIFEROL 25 MCG TABLET PO SCH (09:02)
[2021-08-19] MEDS: risperiDONE 1 MG TABLET PO SCH ×2 (09:02→21:05)
[2021-08-19] MEDS: polyethylene glycoL 3350 17 GM PACKET PO SCH ×2 (09:02→11:55)
[2021-08-19] MEDS: VENLAFAXINE ER 75 MG CAPSULE PO SCH (09:02)
[2021-08-19] MEDS: DEXTROSE 5%-0.45% NACL 1,000 ML IV SCH ×2 (09:04→21:05)
[2021-08-19] MEDS: BUPRENORPHINE/NALOXONE 8-2 MG TAB SL SCH ×3 (09:20→21:05)
--- NOTE | 2021-08-19 11:00 | PROVIDER PROGRESS NOTE ---
Assessment/Plan - Problem List (1) Acute metabolic encephalopathy Assessment/Plan: pt still cries and report she feel discomfort on her whole body. we will resume her home meds for her bipolar disorder, and chronic pain syndrome, peripheral neuropathy to prevent of her withdrawal. CT head showed no acute abnormalities. Her urinalysis was not a clean-catch. we will continue hydration with IVF for pt. 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 (2) Acute kidney injury superimposed on CKD Conclusion/Plan: Creatinine is 1.9, improved from 2.1 at admission, will continue intravenous IV fluids and continue laboratory monitoring (3) Bipolar disorder Conclusion/Plan: She was previously on lithium for this but is now on risperidone. She also takes venlafaxine. we will resume her home meds now (4) Chronic pain syndrome Conclusion/Plan: She is on Suboxone for this. We will resume. (5) Peripheral neuropathy Conclusion/Plan: We will resume her home gabapentin. (6) HTN (hypertension) Conclusion/Plan: pt has elevated BP but nurse also report pt had HR was less than 60. We will resume her home metoprolol but reduced to 25 mg daily because mild bradycardia, add Amlodipine and Hydralazine as needed (7) Hypothyroidism Conclusion/Plan: Her TSH is within normal limits. We will look to resume her Synthroid tomorrow morning. - Current Meds Current Meds: Current Medications Generic Name Dose Route Start Last Admin Trade Name Radha PRN Reason Stop Dose Admin Aspirin 81 mg 08/19/21 09:00 08/19/21 09:02 Aspirin Ec 81 Mg Tablet PO 81 mg DAILY JARETT Administration Buprenorphine HCl 1 tab 08/19/21 08:30 08/19/21 09:20 Buprenorphine/Naloxone 8-2 Mg Tab SL 1 tab TID JARETT Administration Cholecalciferol 25 mcg 08/19/21 09:00 08/19/21 09:02 Cholecalciferol 25 Mcg Tablet PO 25 mcg DAILY JARETT Administration Gabapentin 100 mg 08/19/21 08:30 08/19/21 09:01 Gabapentin 100 Mg Capsule PO 100 mg TID JARETT Administration Heparin Sodium (Porcine) 5,000 unit 08/18/21 21:00 08/19/21 09:02 Heparin 5,000 Unit/Ml Vial SUBQ 5,000 unit BID JARETT Administration Dextrose/Sodium Chloride 1,000 mls @ 83.3 mls/hr 08/19/21 08:00 08/19/21 09:04 D5.45ns IV 08/20/21 08:00 83.3 mls/hr .Q12H1M JARETT Administration Levothyroxine Sodium 50 mcg 08/19/21 07:00 08/19/21 06:54 Levothyroxine 25 Mcg Tablet PO 50 mcg QDAC JARETT Administration Metoprolol Succinate 50 mg 08/19/21 09:00 08/19/21 09:01 Metoprolol Succinate 50 Mg Tablet PO 50 mg DAILY JARETT Administration Multi-Ingredient Ointment 1 applic 08/18/21 13:00 08/18/21 19:06 Zinc Oxide 20% Oint 30 Gm Tube TOP 1 applic PRN PRN Administration Skin Care Pantoprazole Sodium 40 mg 08/19/21 07:00 08/19/21 06:54 Pantoprazole 40 Mg Tablet PO 40 mg QDAC JARETT Administration Polyethylene Glycol 17 gm 08/19/21 09:00 08/19/21 09:02 Polyethylene Glycol 3350 17 Gm Packet PO 17 gm DAILY JARETT Administration Risperidone 1 mg 08/19/21 09:00 08/19/21 09:02 Risperidone 1 Mg Tablet PO 1 mg BID JARETT Administration Sodium Chloride 10 ml 08/18/21 09:28 08/18/21 13:45 Sodium Chloride Flush 0.9% 10 Ml Syringe IVP 10 ml PRN PRN Administration NEEDED PER PROVIDER ORDERS Sodium Chloride 10 ml 08/18/21 17:00 08/19/21 09:04 Sodium Chloride Flush 0.9% 10 Ml Syringe IVP 10 ml 0100,0900,1700 JARETT Administration Venlafaxine HCl 150 mg 08/19/21 09:00 08/19/21 09:02 Venlafaxine Er 75 Mg Capsule PO 150 mg DAILY JARETT Administration - Lab Result Fish Bone Diagrams: 08/19/21 05:28 08/19/21 05:28 - Additional Planning My Orders: My Active Orders 08/19/21 07:50 LORazepam [Ativan] 0.5 mg PO BID PRN 08/19/21 08:00 Dextrose 5%-0.45% NaCl [D5.45ns] 1,000 ml IV 83.3 mls/hr 08/19/21 08:30 Buprenorphine HCl/Naloxone HCl [Suboxone 8-2 mg Tab] 1 tab SL TID Gabapentin [Neurontin] 100 mg PO TID 08/19/21 09:00 Venlafaxine ER [Effexor ER] 150 mg PO DAILY risperiDONE [RisperDAL] 1 mg PO BID 08/19/21 Lunch Soft (Low Fiber) Diet [DIET] 08/19/21 14:00 tiZANidine [Zanaflex] 2 mg PO TID Subjective - Subjective Patient Reports: Back Pain Nursing Reports: Confused Objective Vital Signs: Vital Signs - 24 hr 08/18/21 08/18/21 08/18/21 11:10 11:26 12:03 Temperature 36.7 C Heart Rate 73 Heart Rate [ Brachial] Heart Rate [ 72 Monitoring electrodes] Respiratory 20 16 Rate Blood Pressure 153/60 H [Brachial artery] Blood Pressure [Left Brachial artery] Blood Pressure [Right Brachial artery] O2 Saturation 96 96 08/18/21 08/18/21 08/19/21 15:53 20:22 00:25 Temperature 36.9 C 36.9 C 36.5 C Heart Rate Heart Rate [ 81 Brachial] Heart Rate [ 57 L 73 Monitoring electrodes] Respiratory 20 20 18 Rate Blood Pressure 125/66 136/62 H [Brachial artery] Blood Pressure 182/54 H [Left Brachial artery] Blood Pressure [Right Brachial artery] O2 Saturation 98 96 98 08/19/21 08/19/21 08/19/21 05:24 06:56 07:00 Temperature 37.1 C Heart Rate 58 L 98 Heart Rate [ 57 L Brachial] Heart Rate [ Monitoring electrodes] Respiratory 16 16 17 Rate Blood Pressure [Brachial artery] Blood Pressure [Left Brachial artery] Blood Pressure 193/71 H [Right Brachial artery] O2 Saturation 94 94 08/19/21 07:31 Temperature 36.9 C Heart Rate Heart Rate [ 59 L Brachial] Heart Rate [ Monitoring electrodes] Respiratory 20 Rate Blood Pressure 179/59 H [Brachial artery] Blood Pressure [Left Brachial artery] Blood Pressure [Right Brachial artery] O2 Saturation 95 Oxygen O2 Source [Without Activity] Room air O2 Source Room air I&O (Last 24 Hrs): Intake and Output Totals x24h 08/17/21 08/18/21 08/19/21 23:59 23:59 23:59 Intake Total 2056.667 1730 Output Total 900 Balance 6593.260 0280 General: Alert, Mild distress HEENT: Atraumatic Neck: Supple Lymphatic: no adenopathy Neuro: Alert, Non Focal Cardiovascular: Regular rate, Normal S1, Normal S2 Respiratory: Chest non-tender, No respiratory distress Abdomen: Normal bowel sounds, Soft Extremities: Normal pulses - Results Results: Laboratory Results WBC 5.6 x10^3/uL (4.8-10.8) 08/19/21 05:28 RBC 3.59 10^6/uL (4.20-5.40) L 08/19/21 05:28 Hgb 10.4 g/dL (12.0-16.0) L 08/19/21 05:28 Hct 32.7 % (37.0-47.0) L 08/19/21 05:28 MCV 91.1 fL (81.0-99.0) 08/19/21 05:28 MCH 29.0 pg (27.0-31.0) 08/19/21 05:28 MCHC 31.8 g/dL (32.0-36.0) L 08/19/21 05:28 RDW 14.6 % (12.0-15.0) 08/19/21 05:28 Plt Count 232 10^3/uL (130-450) 08/19/21 05:28 MPV 10.1 fL (7.9-10.8) 08/19/21 05:28 Neut # (Auto) 3.8 10^3/uL (1.5-6.6) 08/19/21 05:28 Lymph # (Auto) 1.0 10^3/uL (1.5-3.5) L 08/19/21 05:28 [place] # (Auto) 0.5 10^3/uL (0.0-1.0) 08/19/21 05:28 Eos # (Auto) 0.2 10^3/uL (0.0-0.7) 08/19/21 05:28 Baso # (Auto) 0.0 10^3/uL (0.0-0.1) 08/19/21 05:28 Absolute Nucleated RBC 0.00 x10^3/uL 08/19/21 05:28 Nucleated RBC % 0.0 /100WBC 08/19/21 05:28 Manual Slide Review Indicated 08/18/21 07:20 Sodium 147 mmol/L (135-145) H 08/19/21 05:28 Potassium 3.9 mmol/L (3.5-5.0) 08/19/21 05:28 Chloride 112 mmol/L (101-111) H 08/19/21 05:28 Carbon Dioxide 22 mmol/L (21-32) 08/19/21 05:28 Anion Gap 13.0 (6-13) 08/19/21 05:28 BUN 38 mg/dL (6-20) H 08/19/21 05:28 Creatinine 1.9 mg/dL (0.4-1.0) H 08/19/21 05:28 Estimated GFR (MDRD) 26 (>89) L 08/19/21 05:28 Glucose 80 mg/dL (70-100) 08/19/21 05:28 Calcium 9.5 mg/dL (8.5-10.3) 08/19/21 05:28 Total Bilirubin 0.2 mg/dL (0.2-1.0) 08/18/21 07:20 AST 24 IU/L (10-42) 08/18/21 07:20 ALT 11 IU/L (10-60) 08/18/21 07:20 Alkaline Phosphatase 111 IU/L (42-121) 08/18/21 07:20 Total Protein 7.7 g/dL (6.7-8.2) 08/18/21 07:20 Albumin 3.9 g/dL (3.2-5.5) 08/18/21 07:20 Globulin 3.8 g/dL (2.1-4.2) 08/18/21 07:20 Albumin/Globulin Ratio 1.0 (1.0-2.2) 08/18/21 07:20 Lipase 26 U/L (22-51) 08/18/21 07:20 Vitamin B12 341 pg/mL (180-914) 08/19/21 05:28 Folate 20.60 ng/mL (5.90 - >24.8) 08/19/21 05:28 TSH 1.49 uIU/mL (0.34-5.60) 08/18/21 07:20 Urine Color YELLOW 08/18/21 08:18 Urine Clarity SL. CLOUDY (CLEAR) 08/18/21 08:18 Urine pH 6.0 PH (5.0-7.5) 08/18/21 08:18 Ur Specific [place] 1.020 (1.002-1.030) 08/18/21 08:18 Urine Protein 100 mg/dL (NEGATIVE) H 08/18/21 08:18 Urine Glucose (UA) NEGATIVE mg/dL (NEGATIVE) 08/18/21 08:18 Urine Ketones NEGATIVE mg/dL (NEGATIVE) 08/18/21 08:18 Urine Occult Blood SMALL (NEGATIVE) H 08/18/21 08:18 Urine Nitrite NEGATIVE (NEGATIVE) 08/18/21 08:18 Urine Bilirubin NEGATIVE (NEGATIVE) 08/18/21 08:18 Urine Urobilinogen 0.2 (NORMAL) E.U./dL (NORMAL) 08/18/21 08:18 Ur Leukocyte Esterase MODERATE (NEGATIVE) H 08/18/21 08:18 Urine RBC 0-5 /HPF (0-5) 08/18/21 08:18 Urine WBC >25 /HPF (0-5) H 08/18/21 08:18 Urine WBC Clumps PRESENT 08/18/21 08:18 Ur Squamous Epith Cells MOD Squamous (<= Few) H 08/18/21 08:18 Urine Bacteria Few /HPF (None Seen) 08/18/21 08:18 Ur Microscopic Review INDICATED 08/18/21 08:18 Urine Culture Comments NOT INDICATED 08/18/21 08:18 Nasal Adenovirus (PCR) NOT DETECTED 08/18/21 09:40 Nasal B. parapertussis DNA (PCR) NOT DETECTED 08/18/21 09:40 Nasal Coronavir 229E PCR NOT DETECTED 08/18/21 09:40 Nasal Coronavir HKU1 PCR NOT DETECTED 08/18/21 09:40 Nasal Coronavir NL63 PCR NOT DETECTED 08/18/21 09:40 Nasal Coronavir OC43 PCR NOT DETECTED 08/18/21 09:40 Nasal Enterovir/Rhinovir PCR NOT DETECTED 08/18/21 09:40 Nasal Influenza B PCR NOT DETECTED 08/18/21 09:40 Nasal Influenza A PCR NOT DETECTED 08/18/21 09:40 Nasal Parainfluen 1 PCR NOT DETECTED 08/18/21 09:40 Nasal Parainfluen 2 PCR NOT DETECTED 08/18/21 09:40 Nasal Parainfluen 3 PCR NOT DETECTED 08/18/21 09:40 Nasal Parainfluen 4 PCR NOT DETECTED 08/18/21 09:40 Nasal RSV (PCR) NOT DETECTED 08/18/21 09:40 Nasal B.pertussis DNA PCR NOT DETECTED 08/18/21 09:40 Nasal C.pneumoniae (PCR) NOT DETECTED 08/18/21 09:40 Misael Human Metapneumo PCR NOT DETECTED 08/18/21 09:40 Nasal M.pneumoniae (PCR) NOT DETECTED 08/18/21 09:40 Nasal SARS-CoV-2 (PCR) NOT DETECTED 08/18/21 09:40 Urine Opiates Screen NEGATIVE (NEGATIVE) 08/18/21 08:18 Ur Oxycodone Screen NEGATIVE (NEGATIVE) 08/18/21 08:18 Urine Methadone Screen NEGATIVE (NEGATIVE) 08/18/21 08:18 Ur Propoxyphene Screen NEGATIVE (NEGATIVE) 08/18/21 08:18 Ur Barbiturates Screen NEGATIVE (NEGATIVE) 08/18/21 08:18 Ur Tricyclics Screen NEGATIVE (NEGATIVE) 08/18/21 08:18 Ur Phencyclidine Scrn NEGATIVE (NEGATIVE) 08/18/21 08:18 Ur Amphetamine Screen NEGATIVE (NEGATIVE) 08/18/21 08:18 U Methamphetamines Scrn NEGATIVE (NEGATIVE) 08/18/21 08:18 U Benzodiazepines Scrn NEGATIVE (NEGATIVE) 08/18/21 08:18 Urine Cocaine Screen NEGATIVE (NEGATIVE) 08/18/21 08:18 U Cannabinoids Screen POSITIVE (NEGATIVE) H 08/18/21 08:18 - Procedures Procedures: Procedures COLONOSCOPY (01/09/13) DRAINAGE OF BLADDER WITH DRAINAGE DEVICE, VIA OPENING (11/25/19) ABX Reporting Has patient been on IV antibiotics over the past 48 hours?: No Current Medications - Current Medications Current Medications: Active Medications Amlodipine Besylate (Amlodipine 5 Mg Tablet) 5 mg PO DAILY [facility] Aspirin (Aspirin Ec 81 Mg Tablet) 81 mg PO DAILY [facility] Last Admin: 08/19/21 09:02 Dose: 81 mg Buprenorphine HCl (Buprenorphine/Naloxone 8-2 Mg Tab) 1 tab SL TID [facility] Last Admin: 08/19/21 09:20 Dose: 1 tab Cholecalciferol (Cholecalciferol 25 Mcg Tablet) 25 mcg PO DAILY [facility] Last Admin: 08/19/21 09:02 Dose: 25 mcg Gabapentin (Gabapentin 100 Mg Capsule) 100 mg PO TID [facility] Last Admin: 08/19/21 09:01 Dose: 100 mg Heparin Sodium (Porcine) (Heparin 5,000 Unit/Ml Vial) 5,000 unit SUBQ BID [facility] Last Admin: 08/19/21 09:02 Dose: 5,000 unit Hydralazine HCl (Hydralazine Inj 20 Mg/Ml Vial) 10 mg IVP QID PRN PRN Reason: Hypertensive Emergency Dextrose/Sodium Chloride (D5.45ns) 1,000 mls @ 83.3 mls/hr IV .Q12H1M [facility] Stop: 08/20/21 08:00 Last Admin: 08/19/21 09:04 Dose: 83.3 mls/hr Levothyroxine Sodium (Levothyroxine 25 Mcg Tablet) 50 mcg PO QDAC [facility] Last Admin: 08/19/21 06:54 Dose: 50 mcg Lorazepam (Lorazepam 0.5 Mg Tablet) 0.5 mg PO BID PRN PRN Reason: Anxiety Metoprolol Succinate (Metoprolol Succinate 25 Mg Tablet) 25 mg PO DAILY [facility] Multi-Ingredient Ointment (Zinc Oxide 20% Oint 30 Gm Tube) 1 applic TOP PRN PRN PRN Reason: Skin Care Last Admin: 08/18/21 19:06 Dose: 1 applic Ondansetron HCl (Ondansetron Odt 4 Mg Tablet) 4 mg TL Q6HR PRN PRN Reason: Nausea / Vomiting Ondansetron HCl (Ondansetron 4 Mg/2 Ml Vial) 4 mg IVP Q6HR PRN PRN Reason: Nausea / Vomiting Pantoprazole Sodium (Pantoprazole 40 Mg Tablet) 40 mg PO QDAC [facility] Last Admin: 08/19/21 06:54 Dose: 40 mg Polyethylene Glycol (Polyethylene Glycol 3350 17 Gm Packet) 17 gm PO DAILY [facility] Last Admin: 08/19/21 09:02 Dose: 17 gm Risperidone (Risperidone 1 Mg Tablet) 1 mg PO BID [facility] Last Admin: 08/19/21 09:02 Dose: 1 mg Sodium Chloride (Sodium Chloride Flush 0.9% 10 Ml Syringe) 10 ml IVP PRN PRN PRN Reason: NEEDED PER PROVIDER ORDERS Last Admin: 08/18/21 13:45 Dose: 10 ml Sodium Chloride (Sodium Chloride Flush 0.9% 10 Ml Syringe) 10 ml IVP 0100,0900,1700 [facility] Last Admin: 08/19/21 09:04 Dose: 10 ml Tizanidine HCl (Tizanidine 4 Mg Tablet) 2 mg PO TID [facility] Venlafaxine HCl (Venlafaxine Er 75 Mg Capsule) 150 mg PO DAILY [facility] Last Admin: 08/19/21 09:02 Dose: 150 mg Cholecalciferol [Vitamin D3] 25 mcg PO DAILY 08/15/20 Gabapentin [Neurontin] 100 mg PO TID 08/15/20 Aspirin [Aspirin EC] 81 mg PO DAILY 12/27/20 Furosemide [Lasix] 20 mg PO DAILY 03/05/21 Omeprazole Magnesium 20 mg PO DAILY 03/05/21 Buprenorphine HCl/Naloxone HCl [Suboxone 8-2 mg Tab] 1 tab SL TID 03/27/21 Metoprolol Succinate [Toprol Xl] 50 mg PO DAILY 07/06/21 Tizanidine HCl 2 mg PO TID 07/06/21 LORazepam [Ativan] 0.5 mg PO BID PRN 08/18/21 Venlafaxine HCl [Effexor Xr] 150 mg PO DAILY 08/18/21 polyethylene glycoL 3350 [Miralax] 17 gm PO DAILY PRN 08/18/21
[2021-08-19] MEDS ORDERED: hydrALAZINE INJ 20 MG/ML VIAL IVP PRN (11:03)
[2021-08-19] MEDS: amLODIPine 5 MG TABLET PO SCH (11:57)
[2021-08-19] MEDS: tiZANidine 4 MG TABLET PO SCH ×2 (13:59→21:05)
[2021-08-19] MEDS ORDERED: BUPRENORPHINE/NALOXONE 8-2 MG TAB SL SCH (14:00)
[2021-08-19] MEDS ORDERED: GABAPENTIN 100 MG CAPSULE PO SCH (14:00)
[2021-08-19] MEDS: ZINC OXIDE 20% OINT 30 GM TUBE TOP PRN (15:25)
[2021-08-20 05:11] LABS: BASOPHILS % (AUTO) 0.6 %; EOSINOPHILS # (AUTO) 0.2 10^3/uL (0.0-0.7); HCT - HEMATOCRIT 29.8 % (37.0-47.0); HGB - HEMOGLOBIN 9.5 g/dL (12.0-16.0); LYMPHOCYTES # (AUTO) 1.6 10^3/uL (1.5-3.5); LYMPHOCYTES % (AUTO) 33.1 %; MEAN CORPUSCULAR HEMOGLOBIN 29.2 pg (27.0-31.0); MEAN CORPUSCULAR HGB CONC 31.9 g/dL (32.0-36.0); MEAN CORPUSCULAR VOLUME 91.7 fL (81.0-99.0); MEAN PLATELET VOLUME 10.8 fL (7.9-10.8); MONOCYTES # (AUTO) 0.5 10^3/uL (0.0-1.0); MONOCYTES % (AUTO) 10.6 %; NEUTROPHILS # (AUTO) 2.4 10^3/uL (1.5-6.6); NEUTROPHILS % (AUTO) 50.5 %; PLT - PLATELET COUNT 190 10^3/uL (130-450); RED BLOOD COUNT 3.25 10^6/uL (4.20-5.40); RED CELL DISTRIBUTION WIDTH 14.5 % (12.0-15.0); WHITE BLOOD COUNT 4.8 x10^3/uL (4.8-10.8)
[2021-08-20 05:22] LABS: CREATININE 1.8 mg/dL (0.4-1.0); POTASSIUM 3.7 mmol/L (3.5-5.0)
[2021-08-20] MEDS: SODIUM CHLORIDE FLUSH 0.9% 10 ML SYRINGE IVP SCH ×3 (05:51→17:21)
[2021-08-20] MEDS: GABAPENTIN 100 MG CAPSULE PO SCH ×3 (05:56→20:49)
[2021-08-20] MEDS: PANTOPRAZOLE 40 MG TABLET PO SCH (05:56)
[2021-08-20] MEDS: tiZANidine 4 MG TABLET PO SCH ×3 (05:56→20:50)
[2021-08-20] MEDS: LEVOTHYROXINE 25 MCG TABLET PO SCH (05:56)
[2021-08-20] MEDS: BUPRENORPHINE/NALOXONE 8-2 MG TAB SL SCH ×3 (06:24→21:42)
[2021-08-20 07:40] LABS: ABSOLUTE RETICS # AUTO 0.048 10^6/uL (0.020-0.110); RED BLOOD COUNT 3.27 10^6/uL (4.20-5.40); RETICULOCYTE COUNT % (AUTO) 1.46 % (0.5-2.3)
[2021-08-20 08:05] LABS: % IRON SATURATION 15 % (20-50); IRON 52 ug/dL (28-170); TOTAL IRON BINDING CAPACITY 337 ug/dL (250-450); TRANSFERRIN 241 mg/dL (192-382)
[2021-08-20 08:15] LABS: FERRITIN 19.2 ng/mL (11.0-306.8)
[2021-08-20] MEDS: METOPROLOL SUCCINATE 25 MG TABLET PO SCH (08:27)
[2021-08-20] MEDS: polyethylene glycoL 3350 17 GM PACKET PO SCH (08:28)
[2021-08-20] MEDS: amLODIPine 5 MG TABLET PO SCH (08:28)
[2021-08-20] MEDS: risperiDONE 1 MG TABLET PO SCH ×2 (08:28→20:49)
[2021-08-20] MEDS: ASPIRIN EC 81 MG TABLET PO SCH (08:28)
[2021-08-20] MEDS: VENLAFAXINE ER 75 MG CAPSULE PO SCH (08:28)
[2021-08-20] MEDS: DOCUSATE SODIUM 250 MG CAPSULE PO SCH ×2 (08:28→20:49)
[2021-08-20] MEDS: CHOLECALCIFEROL 25 MCG TABLET PO SCH (08:28)
[2021-08-20] MEDS: SENNA 8.6 MG TABLET PO SCH ×2 (08:28→20:49)
[2021-08-20] MEDS: HEPARIN 5,000 UNIT/ML VIAL SUBQ SCH ×2 (08:29→20:50)
--- NOTE | 2021-08-20 10:39 | PROVIDER PROGRESS NOTE ---
Assessment/Plan - Problem List (1) Acute metabolic encephalopathy Assessment/Plan: 08/20 resolved. pt report she feel much better. pt return to her baseline. it is likely caused by pt's dehydration and hx of her medical noncompliant. pt still cries and report she feel discomfort on her whole body. we will resume her home meds for her bipolar disorder, and chronic pain syndrome, peripheral neuropathy to prevent of her withdrawal. CT head showed no acute abnormalities. Her urinalysis was not a clean-catch. we will continue hydration with IVF for pt. 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 (2) Acute kidney injury superimposed on CKD Conclusion/Plan: 08/20 creatinine is 1.8 today, close to her baseline 1.7-1.6. Continue gently intravenous IV fluids, continue laboratory monitoring. Creatinine is 1.9, improved from 2.1 at admission, will continue intravenous IV fluids and continue laboratory monitoring (3) Bipolar disorder Conclusion/Plan: 08/20 stable, continue home meds She was previously on lithium for this but is now on risperidone. She also takes venlafaxine. we will resume her home meds now (4) Chronic pain syndrome Conclusion/Plan: 08/20 stable, no complaints on today She is on Suboxone for this. We will resume. (5) Peripheral neuropathy Conclusion/Plan: We will resume her home gabapentin. (6) HTN (hypertension) Conclusion/Plan: 08/20 stable, reduced pt's metoprolol dosage to 25 mg daily due to her bradycardia, add Norvasc and hydralazine PRN pt has elevated BP but nurse also report pt had HR was less than 60. We will resume her home metoprolol but reduced to 25 mg daily because mild bradycardia, add Amlodipine and Hydralazine as needed (7) Hypothyroidism Conclusion/Plan: Her TSH is within normal limits. We will look to resume her Synthroid tomorrow morning. - Current Meds Current Meds: Current Medications Generic Name Dose Route Start Last Admin Trade Name Freq PRN Reason Stop Dose Admin Amlodipine Besylate 5 mg 08/19/21 12:00 08/20/21 08:28 Amlodipine 5 Mg Tablet PO 5 mg DAILY JARETT Administration Aspirin 81 mg 08/19/21 09:00 08/20/21 08:28 Aspirin Ec 81 Mg Tablet PO 81 mg DAILY JARETT Administration Buprenorphine HCl 1 tab 08/19/21 08:30 08/20/21 06:24 Buprenorphine/Naloxone 8-2 Mg Tab SL 1 tab TID JARETT Administration Cholecalciferol 25 mcg 08/19/21 09:00 08/20/21 08:28 Cholecalciferol 25 Mcg Tablet PO 25 mcg DAILY JARETT Administration Docusate Sodium 250 - 500 mg 08/20/21 09:00 08/20/21 08:28 Docusate Sodium 250 Mg Capsule PO 500 mg BID JARETT Administration Gabapentin 100 mg 08/19/21 08:30 08/20/21 05:56 Gabapentin 100 Mg Capsule PO 100 mg TID JARETT Administration Heparin Sodium (Porcine) 5,000 unit 08/18/21 21:00 08/20/21 08:29 Heparin 5,000 Unit/Ml Vial SUBQ 5,000 unit BID JARETT Administration Hydralazine HCl 10 mg 08/19/21 11:03 08/19/21 14:25 Hydralazine Inj 20 Mg/Ml Vial IVP 10 mg QID PRN Administration Hypertensive Emergency Levothyroxine Sodium 50 mcg 08/19/21 07:00 08/20/21 05:56 Levothyroxine 25 Mcg Tablet PO 50 mcg QDAC JARETT Administration Metoprolol Succinate 25 mg 08/20/21 09:00 08/20/21 08:27 Metoprolol Succinate 25 Mg Tablet PO Not Given DAILY JARETT Multi-Ingredient Ointment 1 applic 08/18/21 13:00 08/19/21 15:25 Zinc Oxide 20% Oint 30 Gm Tube TOP 1 applic PRN PRN Administration Skin Care Pantoprazole Sodium 40 mg 08/19/21 07:00 08/20/21 05:56 Pantoprazole 40 Mg Tablet PO 40 mg QDAC JARETT Administration Polyethylene Glycol 17 gm 08/19/21 09:00 08/20/21 08:28 Polyethylene Glycol 3350 17 Gm Packet PO 17 gm DAILY JARETT Administration Risperidone 1 mg 08/19/21 09:00 08/20/21 08:28 Risperidone 1 Mg Tablet PO 1 mg BID JARETT Administration Senna 8.6 - 17.2 mg 08/20/21 09:00 08/20/21 08:28 Senna 8.6 Mg Tablet PO 17.2 mg BID JARETT Administration Sodium Chloride 10 ml 08/18/21 09:28 08/18/21 13:45 Sodium Chloride Flush 0.9% 10 Ml Syringe IVP 10 ml PRN PRN Administration NEEDED PER PROVIDER ORDERS Sodium Chloride 10 ml 08/18/21 17:00 08/20/21 08:30 Sodium Chloride Flush 0.9% 10 Ml Syringe IVP Not Given 0100,0900,1700 JARETT Tizanidine HCl 2 mg 08/19/21 14:00 08/20/21 05:56 Tizanidine 4 Mg Tablet PO 2 mg TID JARETT Administration Venlafaxine HCl 150 mg 08/19/21 09:00 08/20/21 08:28 Venlafaxine Er 75 Mg Capsule PO 150 mg DAILY JARETT Administration - Lab Result Fish Bone Diagrams: 08/20/21 04:38 08/20/21 04:38 - Additional Planning My Orders: My Active Orders 08/19/21 11:03 hydrALAZINE INJ [Apresoline Inj] 10 mg IVP QID PRN 08/19/21 Lunch Soft (Low Fiber) Diet [DIET] 08/19/21 12:00 amLODIPine [Norvasc] 5 mg PO DAILY 08/19/21 14:00 tiZANidine [Zanaflex] 2 mg PO TID 08/20/21 FECAL OCCULT BLOOD (FIT) Urgent 08/20/21 09:00 Metoprolol Succinate [Toprol Xl] 25 mg PO DAILY 08/20/21 11:00 D5.45NS @ 83.333 mls/hr Dextrose 5%-0.45% NaCl [D5.45ns] 1,000 ml IV 83.333 m ls/hr Subjective - Subjective Patient Reports: Feeling Better, Resting Comfortably, No Complaints Objective Vital Signs: Vital Signs - 24 hr 08/19/21 08/19/21 08/19/21 11:01 11:45 12:51 Temperature 36.9 C Heart Rate [ 63 Brachial] Heart Rate [ 65 Monitoring electrodes] Heart Rate [ 63 Supine] Respiratory 18 Rate Blood Pressure Blood Pressure 176/75 H [Brachial artery] Blood Pressure [Left Brachial artery] Blood Pressure 208/73 H [Right Brachial artery] Blood Pressure 185/64 H [Supine] O2 Saturation 08/19/21 08/19/21 08/19/21 13:58 14:05 14:20 Temperature Heart Rate [ 62 Brachial] Heart Rate [ Monitoring electrodes] Heart Rate [ 63 Supine] Respiratory Rate Blood Pressure Blood Pressure 186/66 H [Brachial artery] Blood Pressure [Left Brachial artery] Blood Pressure 170/73 H [Right Brachial artery] Blood Pressure 185/64 H [Supine] O2 Saturation 08/19/21 08/19/21 08/19/21 14:25 14:44 14:55 Temperature Heart Rate [ 58 L Brachial] Heart Rate [ Monitoring electrodes] Heart Rate [ Supine] Respiratory Rate Blood Pressure 186/66 H 147/42 H Blood Pressure [Brachial artery] Blood Pressure [Left Brachial artery] Blood Pressure 166/54 H [Right Brachial artery] Blood Pressure [Supine] O2 Saturation 08/19/21 08/19/21 08/19/21 15:00 15:22 16:05 Temperature 36.5 C Heart Rate [ 59 L 63 Brachial] Heart Rate [ Monitoring electrodes] Heart Rate [ Supine] Respiratory 145 H 22 Rate Blood Pressure Blood Pressure [Brachial artery] Blood Pressure [Left Brachial artery] Blood Pressure 147/42 H 145/60 H [Right Brachial artery] Blood Pressure [Supine] O2 Saturation 98 08/19/21 08/20/21 08/20/21 20:42 00:17 05:00 Temperature 36.9 C 36.6 C 36.3 C L Heart Rate [ 61 54 L 50 L Brachial] Heart Rate [ Monitoring electrodes] Heart Rate [ Supine] Respiratory 20 18 16 Rate Blood Pressure Blood Pressure [Brachial artery] Blood Pressure 128/51 L [Left Brachial artery] Blood Pressure 141/51 H 132/51 H [Right Brachial artery] Blood Pressure [Supine] O2 Saturation 98 96 95 08/20/21 07:51 Temperature 36.8 C Heart Rate [ 55 L Brachial] Heart Rate [ Monitoring electrodes] Heart Rate [ Supine] Respiratory 18 Rate Blood Pressure Blood Pressure [Brachial artery] Blood Pressure [Left Brachial artery] Blood Pressure 117/50 L [Right Brachial artery] Blood Pressure [Supine] O2 Saturation 96 Oxygen O2 Source [Without Activity] Room air O2 Source Room air I&O (Last 24 Hrs): Intake and Output Totals x24h 08/18/21 08/19/21 08/20/21 23:59 23:59 23:59 Intake Total 2056.667 4170 1810 Output Total 900 1350 600 Balance 1113.995 8287 1210 General: Alert, Cooperative, No acute distress HEENT: Atraumatic Neck: Supple Lymphatic: no adenopathy Neuro: Alert, Non Focal Cardiovascular: Regular rate, Normal S1, Normal S2 Respiratory: Chest non-tender, No respiratory distress Abdomen: Normal bowel sounds, Soft Extremities: Normal pulses - Results Results: Laboratory Results WBC 4.8 x10^3/uL (4.8-10.8) 08/20/21 04:38 RBC 3.25 10^6/uL (4.20-5.40) L 08/20/21 04:38 RBC 3.27 10^6/uL (4.20-5.40) L 08/20/21 04:38 Hgb 9.5 g/dL (12.0-16.0) L 08/20/21 04:38 Hct 29.8 % (37.0-47.0) L 08/20/21 04:38 MCV 91.7 fL (81.0-99.0) 08/20/21 04:38 MCH 29.2 pg (27.0-31.0) 08/20/21 04:38 MCHC 31.9 g/dL (32.0-36.0) L 08/20/21 04:38 RDW 14.5 % (12.0-15.0) 08/20/21 04:38 Plt Count 190 10^3/uL (130-450) 08/20/21 04:38 MPV 10.8 fL (7.9-10.8) 08/20/21 04:38 Reticulocyte % (Auto) 1.46 % (0.5-2.3) 08/20/21 04:38 Neut # (Auto) 2.4 10^3/uL (1.5-6.6) 08/20/21 04:38 Lymph # (Auto) 1.6 10^3/uL (1.5-3.5) 08/20/21 04:38 [place] # (Auto) 0.5 10^3/uL (0.0-1.0) 08/20/21 04:38 Eos # (Auto) 0.2 10^3/uL (0.0-0.7) 08/20/21 04:38 Baso # (Auto) 0.0 10^3/uL (0.0-0.1) 08/20/21 04:38 Absolute Nucleated RBC 0.00 x10^3/uL 08/20/21 04:38 Nucleated RBC % 0.0 /100WBC 08/20/21 04:38 Manual Slide Review Indicated 08/18/21 07:20 Absolute Retic 0.048 10^6/uL (0.020-0.110) 08/20/21 04:38 Sodium 141 mmol/L (135-145) 08/20/21 04:38 Potassium 3.7 mmol/L (3.5-5.0) 08/20/21 04:38 Chloride 107 mmol/L (101-111) 08/20/21 04:38 Carbon Dioxide 23 mmol/L (21-32) 08/20/21 04:38 Anion Gap 11.0 (6-13) 08/20/21 04:38 BUN 29 mg/dL (6-20) H 08/20/21 04:38 Creatinine 1.8 mg/dL (0.4-1.0) H 08/20/21 04:38 Estimated GFR (MDRD) 28 (>89) L 08/20/21 04:38 Glucose 121 mg/dL (70-100) H 08/20/21 04:38 POC Whole Bld Glucose 87 mg/dL (70 - 100) 08/18/21 11:30 Calcium 9.0 mg/dL (8.5-10.3) 08/20/21 04:38 Iron 52 ug/dL (28-170) 08/20/21 04:38 TIBC 337 ug/dL (250-450) 08/20/21 04:38 % Saturation 15 % (20-50) L 08/20/21 04:38 Transferrin 241 mg/dL (192-382) 08/20/21 04:38 Ferritin 19.2 ng/mL (11.0-306.8) 08/20/21 04:38 Total Bilirubin 0.2 mg/dL (0.2-1.0) 08/18/21 07:20 AST 24 IU/L (10-42) 08/18/21 07:20 ALT 11 IU/L (10-60) 08/18/21 07:20 Alkaline Phosphatase 111 IU/L (42-121) 08/18/21 07:20 Lactate Dehydrogenase 122 IU/L (91-225) 08/20/21 04:38 Total Protein 7.7 g/dL (6.7-8.2) 08/18/21 07:20 Albumin 3.9 g/dL (3.2-5.5) 08/18/21 07:20 Globulin 3.8 g/dL (2.1-4.2) 08/18/21 07:20 Albumin/Globulin Ratio 1.0 (1.0-2.2) 08/18/21 07:20 Lipase 26 U/L (22-51) 08/18/21 07:20 Vitamin B12 264 pg/mL (180-914) 08/20/21 04:38 Folate 20.60 ng/mL (5.90 - >24.8) 08/19/21 05:28 TSH 1.49 uIU/mL (0.34-5.60) 08/18/21 07:20 Urine Color YELLOW 08/18/21 08:18 Urine Clarity SL. CLOUDY (CLEAR) 08/18/21 08:18 Urine pH 6.0 PH (5.0-7.5) 08/18/21 08:18 Ur Specific [place] 1.020 (1.002-1.030) 08/18/21 08:18 Urine Protein 100 mg/dL (NEGATIVE) H 08/18/21 08:18 Urine Glucose (UA) NEGATIVE mg/dL (NEGATIVE) 08/18/21 08:18 Urine Ketones NEGATIVE mg/dL (NEGATIVE) 08/18/21 08:18 Urine Occult Blood SMALL (NEGATIVE) H 08/18/21 08:18 Urine Nitrite NEGATIVE (NEGATIVE) 08/18/21 08:18 Urine Bilirubin NEGATIVE (NEGATIVE) 08/18/21 08:18 Urine Urobilinogen 0.2 (NORMAL) E.U./dL (NORMAL) 08/18/21 08:18 Ur Leukocyte Esterase MODERATE (NEGATIVE) H 08/18/21 08:18 Urine RBC 0-5 /HPF (0-5) 08/18/21 08:18 Urine WBC >25 /HPF (0-5) H 08/18/21 08:18 Urine WBC Clumps PRESENT 08/18/21 08:18 Ur Squamous Epith Cells MOD Squamous (<= Few) H 08/18/21 08:18 Urine Bacteria Few /HPF (None Seen) 08/18/21 08:18 Ur Microscopic Review INDICATED 08/18/21 08:18 Urine Culture Comments NOT INDICATED 08/18/21 08:18 Nasal Adenovirus (PCR) NOT DETECTED 08/18/21 09:40 Nasal B. parapertussis DNA (PCR) NOT DETECTED 08/18/21 09:40 Nasal Coronavir 229E PCR NOT DETECTED 08/18/21 09:40 Nasal Coronavir HKU1 PCR NOT DETECTED 08/18/21 09:40 Nasal Coronavir NL63 PCR NOT DETECTED 08/18/21 09:40 Nasal Coronavir OC43 PCR NOT DETECTED 08/18/21 09:40 Nasal Enterovir/Rhinovir PCR NOT DETECTED 08/18/21 09:40 Nasal Influenza B PCR NOT DETECTED 08/18/21 09:40 Nasal Influenza A PCR NOT DETECTED 08/18/21 09:40 Nasal Parainfluen 1 PCR NOT DETECTED 08/18/21 09:40 Nasal Parainfluen 2 PCR NOT DETECTED 08/18/21 09:40 Nasal Parainfluen 3 PCR NOT DETECTED 08/18/21 09:40 Nasal Parainfluen 4 PCR NOT DETECTED 08/18/21 09:40 Nasal RSV (PCR) NOT DETECTED 08/18/21 09:40 Nasal B.pertussis DNA PCR NOT DETECTED 08/18/21 09:40 Nasal C.pneumoniae (PCR) NOT DETECTED 08/18/21 09:40 [place] Human Metapneumo PCR NOT DETECTED 08/18/21 09:40 Nasal M.pneumoniae (PCR) NOT DETECTED 08/18/21 09:40 Nasal SARS-CoV-2 (PCR) NOT DETECTED 08/18/21 09:40 Urine Opiates Screen NEGATIVE (NEGATIVE) 08/18/21 08:18 Ur Oxycodone Screen NEGATIVE (NEGATIVE) 08/18/21 08:18 Urine Methadone Screen NEGATIVE (NEGATIVE) 08/18/21 08:18 Ur Propoxyphene Screen NEGATIVE (NEGATIVE) 08/18/21 08:18 Ur Barbiturates Screen NEGATIVE (NEGATIVE) 08/18/21 08:18 Ur Tricyclics Screen NEGATIVE (NEGATIVE) 08/18/21 08:18 Ur Phencyclidine Scrn NEGATIVE (NEGATIVE) 08/18/21 08:18 Ur Amphetamine Screen NEGATIVE (NEGATIVE) 08/18/21 08:18 U Methamphetamines Scrn NEGATIVE (NEGATIVE) 08/18/21 08:18 U Benzodiazepines Scrn NEGATIVE (NEGATIVE) 08/18/21 08:18 Urine Cocaine Screen NEGATIVE (NEGATIVE) 08/18/21 08:18 U Cannabinoids Screen POSITIVE (NEGATIVE) H 08/18/21 08:18 - Procedures Procedures: Procedures COLONOSCOPY (01/09/13) DRAINAGE OF BLADDER WITH DRAINAGE DEVICE, VIA OPENING (11/25/19) ABX Reporting Has patient been on IV antibiotics over the past 48 hours?: No Current Medications - Current Medications Current Medications: Active Medications Amlodipine Besylate (Amlodipine 5 Mg Tablet) 5 mg PO DAILY [facility] Last Admin: 08/20/21 08:28 Dose: 5 mg Aspirin (Aspirin Ec 81 Mg Tablet) 81 mg PO DAILY [facility] Last Admin: 08/20/21 08:28 Dose: 81 mg Buprenorphine HCl (Buprenorphine/Naloxone 8-2 Mg Tab) 1 tab SL TID [facility] Last Admin: 08/20/21 06:24 Dose: 1 tab Cholecalciferol (Cholecalciferol 25 Mcg Tablet) 25 mcg PO DAILY [facility] Last Admin: 08/20/21 08:28 Dose: 25 mcg Docusate Sodium (Docusate Sodium 250 Mg Capsule) 250 - 500 mg PO BID [facility] Last Admin: 08/20/21 08:28 Dose: 500 mg Gabapentin (Gabapentin 100 Mg Capsule) 100 mg PO TID [facility] Last Admin: 08/20/21 05:56 Dose: 100 mg Heparin Sodium (Porcine) (Heparin 5,000 Unit/Ml Vial) 5,000 unit SUBQ BID [facility] Last Admin: 08/20/21 08:29 Dose: 5,000 unit Hydralazine HCl (Hydralazine Inj 20 Mg/Ml Vial) 10 mg IVP QID PRN PRN Reason: Hypertensive Emergency Last Admin: 08/19/21 14:25 Dose: 10 mg Dextrose/Sodium Chloride (D5.45ns) 1,000 mls @ 83.333 mls/hr IV .Q12H [facility] Levothyroxine Sodium (Levothyroxine 25 Mcg Tablet) 50 mcg PO QDAC [facility] Last Admin: 08/20/21 05:56 Dose: 50 mcg Lorazepam (Lorazepam 0.5 Mg Tablet) 0.5 mg PO BID PRN PRN Reason: Anxiety Metoprolol Succinate (Metoprolol Succinate 25 Mg Tablet) 25 mg PO DAILY [facility] Last Admin: 08/20/21 08:27 Dose: Not Given Multi-Ingredient Ointment (Zinc Oxide 20% Oint 30 Gm Tube) 1 applic TOP PRN PRN PRN Reason: Skin Care Last Admin: 08/19/21 15:25 Dose: 1 applic Ondansetron HCl (Ondansetron Odt 4 Mg Tablet) 4 mg TL Q6HR PRN PRN Reason: Nausea / Vomiting Ondansetron HCl (Ondansetron 4 Mg/2 Ml Vial) 4 mg IVP Q6HR PRN PRN Reason: Nausea / Vomiting Pantoprazole Sodium (Pantoprazole 40 Mg Tablet) 40 mg PO QDAC [facility] Last Admin: 08/20/21 05:56 Dose: 40 mg Polyethylene Glycol (Polyethylene Glycol 3350 17 Gm Packet) 17 gm PO DAILY [facility] Last Admin: 08/20/21 08:28 Dose: 17 gm Risperidone (Risperidone 1 Mg Tablet) 1 mg PO BID [facility] Last Admin: 08/20/21 08:28 Dose: 1 mg Senna (Senna 8.6 Mg Tablet) 8.6 - 17.2 mg PO BID [facility] Last Admin: 08/20/21 08:28 Dose: 17.2 mg Sodium Chloride (Sodium Chloride Flush 0.9% 10 Ml Syringe) 10 ml IVP PRN PRN PRN Reason: NEEDED PER PROVIDER ORDERS Last Admin: 08/18/21 13:45 Dose: 10 ml Sodium Chloride (Sodium Chloride Flush 0.9% 10 Ml Syringe) 10 ml IVP 0100,0900,1700 [facility] Last Admin: 08/20/21 08:30 Dose: Not Given Tizanidine HCl (Tizanidine 4 Mg Tablet) 2 mg PO TID [facility] Last Admin: 08/20/21 05:56 Dose: 2 mg Venlafaxine HCl (Venlafaxine Er 75 Mg Capsule) 150 mg PO DAILY [facility] Last Admin: 08/20/21 08:28 Dose: 150 mg Cholecalciferol [Vitamin D3] 25 mcg PO DAILY 08/15/20 Gabapentin [Neurontin] 100 mg PO TID 08/15/20 Aspirin [Aspirin EC] 81 mg PO DAILY 12/27/20 Furosemide [Lasix] 20 mg PO DAILY 03/05/21 Omeprazole Magnesium 20 mg PO DAILY 03/05/21 Buprenorphine HCl/Naloxone HCl [Suboxone 8-2 mg Tab] 1 tab SL TID 03/27/21 Metoprolol Succinate [Toprol Xl] 50 mg PO DAILY 07/06/21 Tizanidine HCl 2 mg PO TID 07/06/21 LORazepam [Ativan] 0.5 mg PO BID PRN 08/18/21 Venlafaxine HCl [Effexor Xr] 150 mg PO DAILY 08/18/21 polyethylene glycoL 3350 [Miralax] 17 gm PO DAILY PRN 08/18/21
[2021-08-20] MEDS: DEXTROSE 5%-0.45% NACL 1,000 ML IV SCH ×2 (10:58→22:08)
[2021-08-21 04:58] LABS: BASOPHILS % (AUTO) 0.4 %; EOSINOPHILS # (AUTO) 0.2 10^3/uL (0.0-0.7); EOSINOPHILS % (AUTO) 4.9 %; HCT - HEMATOCRIT 28.9 % (37.0-47.0); HGB - HEMOGLOBIN 9.3 g/dL (12.0-16.0); LYMPHOCYTES # (AUTO) 1.3 10^3/uL (1.5-3.5); LYMPHOCYTES % (AUTO) 27.3 %; MEAN CORPUSCULAR HEMOGLOBIN 29.7 pg (27.0-31.0); MEAN CORPUSCULAR HGB CONC 32.2 g/dL (32.0-36.0); MEAN CORPUSCULAR VOLUME 92.3 fL (81.0-99.0); MEAN PLATELET VOLUME 10.9 fL (7.9-10.8); MONOCYTES # (AUTO) 0.5 10^3/uL (0.0-1.0); MONOCYTES % (AUTO) 11.4 %; NEUTROPHILS # (AUTO) 2.6 10^3/uL (1.5-6.6); NEUTROPHILS % (AUTO) 55.8 %; PLT - PLATELET COUNT 181 10^3/uL (130-450); RED BLOOD COUNT 3.13 10^6/uL (4.20-5.40); RED CELL DISTRIBUTION WIDTH 14.3 % (12.0-15.0); WHITE BLOOD COUNT 4.7 x10^3/uL (4.8-10.8)
[2021-08-21 05:06] LABS: CALCIUM 8.8 mg/dL (8.5-10.3); CREATININE 1.8 mg/dL (0.4-1.0); POTASSIUM 4.1 mmol/L (3.5-5.0)
[2021-08-21] MEDS: SODIUM CHLORIDE FLUSH 0.9% 10 ML SYRINGE IVP SCH ×3 (05:08→16:45)
[2021-08-21] MEDS: PANTOPRAZOLE 40 MG TABLET PO SCH (06:48)
[2021-08-21] MEDS: LEVOTHYROXINE 25 MCG TABLET PO SCH (06:48)
[2021-08-21] MEDS: GABAPENTIN 100 MG CAPSULE PO SCH ×3 (06:48→21:18)
[2021-08-21] MEDS: tiZANidine 4 MG TABLET PO SCH ×3 (06:50→21:18)
[2021-08-21] MEDS: BUPRENORPHINE/NALOXONE 8-2 MG TAB SL SCH ×3 (07:06→22:08)
[2021-08-21] MEDS: amLODIPine 5 MG TABLET PO SCH (08:16)
[2021-08-21] MEDS: risperiDONE 1 MG TABLET PO SCH ×2 (08:16→21:17)
[2021-08-21] MEDS: CYANOCOBALAMIN 500 MCG TABLET PO SCH (08:16)
[2021-08-21] MEDS: VENLAFAXINE ER 75 MG CAPSULE PO SCH (08:16)
[2021-08-21] MEDS: SENNA 8.6 MG TABLET PO SCH ×2 (08:16→21:16)
[2021-08-21] MEDS: CHOLECALCIFEROL 25 MCG TABLET PO SCH (08:16)
[2021-08-21] MEDS: ASPIRIN EC 81 MG TABLET PO SCH (08:16)
[2021-08-21] MEDS: polyethylene glycoL 3350 17 GM PACKET PO SCH (08:16)
[2021-08-21] MEDS: METOPROLOL SUCCINATE 25 MG TABLET PO SCH (08:17)
[2021-08-21] MEDS: DOCUSATE SODIUM 250 MG CAPSULE PO SCH ×2 (08:17→21:17)
[2021-08-21] MEDS: HEPARIN 5,000 UNIT/ML VIAL SUBQ SCH ×2 (08:18→21:18)
[2021-08-21] MEDS: DEXTROSE 5%-0.45% NACL 1,000 ML IV SCH ×2 (09:33→22:08)
[2021-08-21] MEDS ORDERED: SIMETHICONE CHEW 80 MG TABLET PO PRN (11:19)
[2021-08-21] MEDS: ZINC OXIDE 20% OINT 30 GM TUBE TOP PRN ×2 (13:23→20:02)
[2021-08-21 13:52] LABS: FECAL OCCULT BLOOD (FIT) NEGATIVE (NEGATIVE)
--- NOTE | 2021-08-21 14:29 | PROVIDER PROGRESS NOTE ---
Assessment/Plan - Problem List (1) Acute metabolic encephalopathy Assessment/Plan: 08/21 resolved and stable, as pt's baseline. pt continue report she feel better, no complaints. 08/20 resolved. pt report she feel much better. pt return to her baseline. it is likely caused by pt's dehydration and hx of her medical noncompliant. pt still cries and report she feel discomfort on her whole body. we will resume her home meds for her bipolar disorder, and chronic pain syndrome, peripheral neuropathy to prevent of her withdrawal. CT head showed no acute abnormalities. Her urinalysis was not a clean-catch. we will continue hydration with IVF for pt. tray service worker Was consulted for disposition planning. (2) Acute kidney injury superimposed on CKD Conclusion/Plan: 08/20 stable, creatinine 1.8, continue gently IVF and lab monitor 08/20 creatinine is 1.8 today, close to her baseline 1.7-1.6. Continue gently intravenous IV fluids, continue laboratory monitoring. Creatinine is 1.9, improved from 2.1 at admission, will continue intravenous IV fluids and continue laboratory monitoring (3) Bipolar disorder Conclusion/Plan: 08/20 stable, continue home meds She was previously on lithium for this but is now on risperidone. She also takes venlafaxine. we will resume her home meds now (4) Chronic pain syndrome Conclusion/Plan: 08/20 stable, no complaints on today She is on Suboxone for this. We will resume. (5) Peripheral neuropathy Conclusion/Plan: We will resume her home gabapentin. (6) HTN (hypertension) Conclusion/Plan: 08/20 stable, reduced pt's metoprolol dosage to 25 mg daily due to her norma ycardia, add Norvasc and hydralazine PRN pt has elevated BP but nurse also report pt had HR was less than 60. We will resume her home metoprolol but reduced to 25 mg daily because mild bradycardia, add Amlodipine and Hydralazine as needed (7) Hypothyroidism Conclusion/Plan: Her TSH is within normal limits. We will look to resume her Synthroid tomorrow morning. (8)weakness Consult with PT and OT, patient is recommended to SNF, consult with social work for disposition planning - Current Meds Current Meds: Current Medications Generic Name Dose Route Start Last Admin Trade Name Freq PRN Reason Stop Dose Admin Amlodipine Besylate 5 mg 08/19/21 12:00 08/21/21 08:16 Amlodipine 5 Mg Tablet PO 5 mg DAILY JARETT Administration Aspirin 81 mg 08/19/21 09:00 08/21/21 08:16 Aspirin Ec 81 Mg Tablet PO 81 mg DAILY JARETT Administration Buprenorphine HCl 1 tab 08/19/21 08:30 08/21/21 14:02 Buprenorphine/Naloxone 8-2 Mg Tab SL 1 tab TID JARETT Administration Cholecalciferol 25 mcg 08/19/21 09:00 08/21/21 08:16 Cholecalciferol 25 Mcg Tablet PO 25 mcg DAILY JARETT Administration Cyanocobalamin 500 mcg 08/21/21 09:00 08/21/21 08:16 Cyanocobalamin 500 Mcg Tablet PO 500 mcg DAILY JARETT Administration Docusate Sodium 250 - 500 mg 08/20/21 09:00 08/21/21 08:17 Docusate Sodium 250 Mg Capsule PO 500 mg BID JARETT Administration Gabapentin 100 mg 08/19/21 08:30 08/21/21 13:22 Gabapentin 100 Mg Capsule PO 100 mg TID JARETT Administration Heparin Sodium (Porcine) 5,000 unit 08/18/21 21:00 08/21/21 08:18 Heparin 5,000 Unit/Ml Vial SUBQ 5,000 unit BID JARETT Administration Hydralazine HCl 10 mg 08/19/21 11:03 08/19/21 14:25 Hydralazine Inj 20 Mg/Ml Vial IVP 10 mg QID PRN Administration Hypertensive Emergency Dextrose/Sodium Chloride 1,000 mls @ 83.333 mls/hr 08/20/21 11:00 08/21/21 13:29 D5.45ns IV 83.33 mls/hr .Q12H JARETT Infusion Levothyroxine Sodium 50 mcg 08/19/21 07:00 08/21/21 06:48 Levothyroxine 25 Mcg Tablet PO 50 mcg QDAC JARETT Administration Metoprolol Succinate 25 mg 08/20/21 09:00 08/21/21 08:17 Metoprolol Succinate 25 Mg Tablet PO Not Given DAILY [facility] Multi-Ingredient Ointment 1 applic 08/18/21 13:00 08/21/21 13:23 Zinc Oxide 20% Oint 30 Gm Tube TOP 1 applic PRN PRN Administration Skin Care Pantoprazole Sodium 40 mg 08/19/21 07:00 08/21/21 06:48 Pantoprazole 40 Mg Tablet PO 40 mg QDAC JARETT Administration Polyethylene Glycol 17 gm 08/19/21 09:00 08/21/21 08:16 Polyethylene Glycol 3350 17 Gm Packet PO 17 gm DAILY JARETT Administration Risperidone 1 mg 08/19/21 09:00 08/21/21 08:16 Risperidone 1 Mg Tablet PO 1 mg BID JARETT Administration Senna 8.6 - 17.2 mg 08/20/21 09:00 08/21/21 08:16 Senna 8.6 Mg Tablet PO 17.2 mg BID JARETT Administration Simethicone 80 mg 08/21/21 11:19 08/21/21 11:20 Simethicone Chew 80 Mg Tablet PO 80 mg Q6HR PRN Administration Gas Sodium Chloride 10 ml 08/18/21 09:28 08/18/21 13:45 Sodium Chloride Flush 0.9% 10 Ml Syringe IVP 10 ml PRN PRN Administration NEEDED PER PROVIDER ORDERS Sodium Chloride 10 ml 08/18/21 17:00 08/21/21 08:17 Sodium Chloride Flush 0.9% 10 Ml Syringe IVP Not Given 0100,0900,1700 JARETT Tizanidine HCl 2 mg 08/19/21 14:00 08/21/21 13:21 Tizanidine 4 Mg Tablet PO 2 mg TID JARETT Administration Venlafaxine HCl 150 mg 08/19/21 09:00 08/21/21 08:16 Venlafaxine Er 75 Mg Capsule PO 150 mg DAILY JARETT Administration - Lab Result Fish Bone Diagrams: 08/21/21 04:27 08/21/21 04:27 - Additional Planning My Orders: My Active Orders 08/21/21 09:00 Cyanocobalamin [Vitamin B-12] 500 mcg PO DAILY 08/21/21 11:19 Simethicone [Mylicon] 80 mg PO Q6HR PRN Subjective - Subjective Patient Reports: Feeling Better, Resting Comfortably Objective Vital Signs: Vital Signs - 24 hr 08/20/21 08/20/21 08/20/21 15:33 20:13 23:36 Temperature 36.8 C 36.8 C 36.6 C Heart Rate [ 60 68 61 Brachial] Respiratory 19 18 16 Rate Blood Pressure 149/56 H 124/58 L 136/52 H [Right Brachial artery] O2 Saturation 97 94 96 08/21/21 08/21/21 08/21/21 05:09 07:29 11:50 Temperature 37.0 C 36.7 C 37.0 C Heart Rate [ 55 L 58 L 83 Brachial] Respiratory 16 18 18 Rate Blood Pressure 111/51 L 130/59 L 136/71 H [Right Brachial artery] O2 Saturation 96 95 96 Oxygen O2 Source [Without Activity] Room air O2 Source Room air I&O (Last 24 Hrs): Intake and Output Totals x24h 08/19/21 08/20/21 08/21/21 23:59 23:59 23:59 Intake Total 4170 4070.552 3256.106 Output Total 1350 1300 1700 Balance 2820 2770.552 1556.106 General: Alert, Cooperative, No acute distress HEENT: Atraumatic Neck: Supple Lymphatic: no adenopathy Neuro: Alert, Non Focal Cardiovascular: Regular rate, Normal S1, Normal S2 Respiratory: Chest non-tender, No respiratory distress Abdomen: Normal bowel sounds, Soft Extremities: Normal pulses - Results Results: Laboratory Results WBC 4.7 x10^3/uL (4.8-10.8) L 08/21/21 04:27 RBC 3.13 10^6/uL (4.20-5.40) L 08/21/21 04:27 Hgb 9.3 g/dL (12.0-16.0) L 08/21/21 04:27 Hct 28.9 % (37.0-47.0) L 08/21/21 04:27 MCV 92.3 fL (81.0-99.0) 08/21/21 04:27 MCH 29.7 pg (27.0-31.0) 08/21/21 04:27 MCHC 32.2 g/dL (32.0-36.0) 08/21/21 04:27 RDW 14.3 % (12.0-15.0) 08/21/21 04:27 Plt Count 181 10^3/uL (130-450) 08/21/21 04:27 MPV 10.9 fL (7.9-10.8) H 08/21/21 04:27 Reticulocyte % (Auto) 1.46 % (0.5-2.3) 08/20/21 04:38 Neut # (Auto) 2.6 10^3/uL (1.5-6.6) 08/21/21 04:27 Lymph # (Auto) 1.3 10^3/uL (1.5-3.5) L 08/21/21 04:27 [place] # (Auto) 0.5 10^3/uL (0.0-1.0) 08/21/21 04:27 Eos # (Auto) 0.2 10^3/uL (0.0-0.7) 08/21/21 04:27 Baso # (Auto) 0.0 10^3/uL (0.0-0.1) 08/21/21 04:27 Absolute Nucleated RBC 0.00 x10^3/uL 08/21/21 04:27 Nucleated RBC % 0.0 /100WBC 08/21/21 04:27 Manual Slide Review Indicated 08/18/21 07:20 Absolute Retic 0.048 10^6/uL (0.020-0.110) 08/20/21 04:38 Sodium 139 mmol/L (135-145) 08/21/21 04:27 Potassium 4.1 mmol/L (3.5-5.0) 08/21/21 04:27 Chloride 107 mmol/L (101-111) 08/21/21 04:27 Carbon Dioxide 23 mmol/L (21-32) 08/21/21 04:27 Anion Gap 9.0 (6-13) 08/21/21 04:27 BUN 30 mg/dL (6-20) H 08/21/21 04:27 Creatinine 1.8 mg/dL (0.4-1.0) H 08/21/21 04:27 Estimated GFR (MDRD) 28 (>89) L 08/21/21 04:27 Glucose 135 mg/dL (70-100) H 08/21/21 04:27 POC Whole Bld Glucose 87 mg/dL (70 - 100) 08/18/21 11:30 Calcium 8.8 mg/dL (8.5-10.3) 08/21/21 04:27 Iron 52 ug/dL (28-170) 08/20/21 04:38 TIBC 337 ug/dL (250-450) 08/20/21 04:38 % Saturation 15 % (20-50) L 08/20/21 04:38 Transferrin 241 mg/dL (192-382) 08/20/21 04:38 Ferritin 19.2 ng/mL (11.0-306.8) 08/20/21 04:38 Total Bilirubin 0.2 mg/dL (0.2-1.0) 08/18/21 07:20 AST 24 IU/L (10-42) 08/18/21 07:20 ALT 11 IU/L (10-60) 08/18/21 07:20 Alkaline Phosphatase 111 IU/L (42-121) 08/18/21 07:20 Lactate Dehydrogenase 122 IU/L (91-225) 08/20/21 04:38 Total Protein 7.7 g/dL (6.7-8.2) 08/18/21 07:20 Albumin 3.9 g/dL (3.2-5.5) 08/18/21 07:20 Globulin 3.8 g/dL (2.1-4.2) 08/18/21 07:20 Albumin/Globulin Ratio 1.0 (1.0-2.2) 08/18/21 07:20 Lipase 26 U/L (22-51) 08/18/21 07:20 Vitamin B12 264 pg/mL (180-914) 08/20/21 04:38 Folate 20.60 ng/mL (5.90 - >24.8) 08/19/21 05:28 TSH 1.49 uIU/mL (0.34-5.60) 08/18/21 07:20 Urine Color YELLOW 08/18/21 08:18 Urine Clarity SL. CLOUDY (CLEAR) 08/18/21 08:18 Urine pH 6.0 PH (5.0-7.5) 08/18/21 08:18 Ur Specific [place] 1.020 (1.002-1.030) 08/18/21 08:18 Urine Protein 100 mg/dL (NEGATIVE) H 08/18/21 08:18 Urine Glucose (UA) NEGATIVE mg/dL (NEGATIVE) 08/18/21 08:18 Urine Ketones NEGATIVE mg/dL (NEGATIVE) 08/18/21 08:18 Urine Occult Blood SMALL (NEGATIVE) H 08/18/21 08:18 Urine Nitrite NEGATIVE (NEGATIVE) 08/18/21 08:18 Urine Bilirubin NEGATIVE (NEGATIVE) 08/18/21 08:18 Urine Urobilinogen 0.2 (NORMAL) E.U./dL (NORMAL) 08/18/21 08:18 Ur Leukocyte Esterase MODERATE (NEGATIVE) H 08/18/21 08:18 Urine RBC 0-5 /HPF (0-5) 08/18/21 08:18 Urine WBC >25 /HPF (0-5) H 08/18/21 08:18 Urine WBC Clumps PRESENT 08/18/21 08:18 Ur Squamous Epith Cells MOD Squamous (<= Few) H 08/18/21 08:18 Urine Bacteria Few /HPF (None Seen) 08/18/21 08:18 Ur Microscopic Review INDICATED 08/18/21 08:18 Urine Culture Comments NOT INDICATED 08/18/21 08:18 Nasal Adenovirus (PCR) NOT DETECTED 08/18/21 09:40 Nasal B. parapertussis DNA (PCR) NOT DETECTED 08/18/21 09:40 Nasal Coronavir 229E PCR NOT DETECTED 08/18/21 09:40 Nasal Coronavir HKU1 PCR NOT DETECTED 08/18/21 09:40 Nasal Coronavir NL63 PCR NOT DETECTED 08/18/21 09:40 Nasal Coronavir OC43 PCR NOT DETECTED 08/18/21 09:40 Nasal Enterovir/Rhinovir PCR NOT DETECTED 08/18/21 09:40 Nasal Influenza B PCR NOT DETECTED 08/18/21 09:40 Nasal Influenza A PCR NOT DETECTED 08/18/21 09:40 Nasal Parainfluen 1 PCR NOT DETECTED 08/18/21 09:40 Nasal Parainfluen 2 PCR NOT DETECTED 08/18/21 09:40 Nasal Parainfluen 3 PCR NOT DETECTED 08/18/21 09:40 Nasal Parainfluen 4 PCR NOT DETECTED 08/18/21 09:40 Nasal RSV (PCR) NOT DETECTED 08/18/21 09:40 Nasal B.pertussis DNA PCR NOT DETECTED 08/18/21 09:40 Nasal C.pneumoniae (PCR) NOT DETECTED 08/18/21 09:40 Misael Human Metapneumo PCR NOT DETECTED 08/18/21 09:40 Nasal M.pneumoniae (PCR) NOT DETECTED 08/18/21 09:40 Nasal SARS-CoV-2 (PCR) NOT DETECTED 08/18/21 09:40 Stl Occult Blood (IFOB) NEGATIVE (NEGATIVE) 08/21/21 13:16 Urine Opiates Screen NEGATIVE (NEGATIVE) 08/18/21 08:18 Ur Oxycodone Screen NEGATIVE (NEGATIVE) 08/18/21 08:18 Urine Methadone Screen NEGATIVE (NEGATIVE) 08/18/21 08:18 Ur Propoxyphene Screen NEGATIVE (NEGATIVE) 08/18/21 08:18 Ur Barbiturates Screen NEGATIVE (NEGATIVE) 08/18/21 08:18 Ur Tricyclics Screen NEGATIVE (NEGATIVE) 08/18/21 08:18 Ur Phencyclidine Scrn NEGATIVE (NEGATIVE) 08/18/21 08:18 Ur Amphetamine Screen NEGATIVE (NEGATIVE) 08/18/21 08:18 U Methamphetamines Scrn NEGATIVE (NEGATIVE) 08/18/21 08:18 U Benzodiazepines Scrn NEGATIVE (NEGATIVE) 08/18/21 08:18 Urine Cocaine Screen NEGATIVE (NEGATIVE) 08/18/21 08:18 U Cannabinoids Screen POSITIVE (NEGATIVE) H 08/18/21 08:18 - Procedures Procedures: Procedures COLONOSCOPY (01/09/13) DRAINAGE OF BLADDER WITH DRAINAGE DEVICE, VIA OPENING (11/25/19) ABX Reporting Has patient been on IV antibiotics over the past 48 hours?: No Current Medications - Current Medications Current Medications: Active Medications Amlodipine Besylate (Amlodipine 5 Mg Tablet) 5 mg PO DAILY [facility] Last Admin: 08/21/21 08:16 Dose: 5 mg Aspirin (Aspirin Ec 81 Mg Tablet) 81 mg PO DAILY [facility] Last Admin: 08/21/21 08:16 Dose: 81 mg Buprenorphine HCl (Buprenorphine/Naloxone 8-2 Mg Tab) 1 tab SL TID [facility] Last Admin: 08/21/21 14:02 Dose: 1 tab Cholecalciferol (Cholecalciferol 25 Mcg Tablet) 25 mcg PO DAILY [facility] Last Admin: 08/21/21 08:16 Dose: 25 mcg Cyanocobalamin (Cyanocobalamin 500 Mcg Tablet) 500 mcg PO DAILY [facility] Last Admin: 08/21/21 08:16 Dose: 500 mcg Docusate Sodium (Docusate Sodium 250 Mg Capsule) 250 - 500 mg PO BID [facility] Last Admin: 08/21/21 08:17 Dose: 500 mg Gabapentin (Gabapentin 100 Mg Capsule) 100 mg PO TID [facility] Last Admin: 08/21/21 13:22 Dose: 100 mg Heparin Sodium (Porcine) (Heparin 5,000 Unit/Ml Vial) 5,000 unit SUBQ BID [facility] Last Admin: 08/21/21 08:18 Dose: 5,000 unit Hydralazine HCl (Hydralazine Inj 20 Mg/Ml Vial) 10 mg IVP QID PRN PRN Reason: Hypertensive Emergency Last Admin: 08/19/21 14:25 Dose: 10 mg Dextrose/Sodium Chloride (D5.45ns) 1,000 mls @ 83.333 mls/hr IV .Q12H [facility] Last Infusion: 08/21/21 13:29 Dose: 83.33 mls/hr Levothyroxine Sodium (Levothyroxine 25 Mcg Tablet) 50 mcg PO QDAC [facility] Last Admin: 08/21/21 06:48 Dose: 50 mcg Lorazepam (Lorazepam 0.5 Mg Tablet) 0.5 mg PO BID PRN PRN Reason: Anxiety Metoprolol Succinate (Metoprolol Succinate 25 Mg Tablet) 25 mg PO DAILY [facility] Last Admin: 08/21/21 08:17 Dose: Not Given Multi-Ingredient Ointment (Zinc Oxide 20% Oint 30 Gm Tube) 1 applic TOP PRN PRN PRN Reason: Skin Care Last Admin: 08/21/21 13:23 Dose: 1 applic Ondansetron HCl (Ondansetron Odt 4 Mg Tablet) 4 mg TL Q6HR PRN PRN Reason: Nausea / Vomiting Ondansetron HCl (Ondansetron 4 Mg/2 Ml Vial) 4 mg IVP Q6HR PRN PRN Reason: Nausea / Vomiting Pantoprazole Sodium (Pantoprazole 40 Mg Tablet) 40 mg PO QDAC [facility] Last Admin: 08/21/21 06:48 Dose: 40 mg Polyethylene Glycol (Polyethylene Glycol 3350 17 Gm Packet) 17 gm PO DAILY [facility] Last Admin: 08/21/21 08:16 Dose: 17 gm Risperidone (Risperidone 1 Mg Tablet) 1 mg PO BID [facility] Last Admin: 08/21/21 08:16 Dose: 1 mg Senna (Senna 8.6 Mg Tablet) 8.6 - 17.2 mg PO BID [facility] Last Admin: 08/21/21 08:16 Dose: 17.2 mg Simethicone (Simethicone Chew 80 Mg Tablet) 80 mg PO Q6HR PRN PRN Reason: Gas Last Admin: 08/21/21 11:20 Dose: 80 mg Sodium Chloride (Sodium Chloride Flush 0.9% 10 Ml Syringe) 10 ml IVP PRN PRN PRN Reason: NEEDED PER PROVIDER ORDERS Last Admin: 08/18/21 13:45 Dose: 10 ml Sodium Chloride (Sodium Chloride Flush 0.9% 10 Ml Syringe) 10 ml IVP 0100,0900,1700 [facility] Last Admin: 08/21/21 08:17 Dose: Not Given Tizanidine HCl (Tizanidine 4 Mg Tablet) 2 mg PO TID [facility] Last Admin: 08/21/21 13:21 Dose: 2 mg Venlafaxine HCl (Venlafaxine Er 75 Mg Capsule) 150 mg PO DAILY [facility] Last Admin: 08/21/21 08:16 Dose: 150 mg Cholecalciferol [Vitamin D3] 25 mcg PO DAILY 08/15/20 Gabapentin [Neurontin] 100 mg PO TID 08/15/20 Aspirin [Aspirin EC] 81 mg PO DAILY 12/27/20 Furosemide [Lasix] 20 mg PO DAILY 03/05/21 Omeprazole Magnesium 20 mg PO DAILY 03/05/21 Buprenorphine HCl/Naloxone HCl [Suboxone 8-2 mg Tab] 1 tab SL TID 03/27/21 Metoprolol Succinate [Toprol Xl] 50 mg PO DAILY 07/06/21 Tizanidine HCl 2 mg PO TID 07/06/21 LORazepam [Ativan] 0.5 mg PO BID PRN 08/18/21 Venlafaxine HCl [Effexor Xr] 150 mg PO DAILY 08/18/21 polyethylene glycoL 3350 [Miralax] 17 gm PO DAILY PRN 08/18/21
[2021-08-22] MEDS: SODIUM CHLORIDE FLUSH 0.9% 10 ML SYRINGE IVP SCH ×2 (00:02→08:37)
[2021-08-22] MEDS: ACETAMINOPHEN 325 MG TABLET PO PRN ×2 (00:59→10:23)
[2021-08-22] MEDS: SODIUM CHLORIDE FLUSH 0.9% 10 ML SYRINGE IVP PRN (03:06)
[2021-08-22] MEDS: ZINC OXIDE 20% OINT 30 GM TUBE TOP PRN (03:06)
[2021-08-22] MEDS: GABAPENTIN 100 MG CAPSULE PO SCH (05:46)
[2021-08-22] MEDS: PANTOPRAZOLE 40 MG TABLET PO SCH (05:46)
[2021-08-22] MEDS: LEVOTHYROXINE 25 MCG TABLET PO SCH (05:47)
[2021-08-22] MEDS: tiZANidine 4 MG TABLET PO SCH (05:47)
[2021-08-22 06:03] LABS: BASOPHILS % (AUTO) 0.6 %; EOSINOPHILS # (AUTO) 0.3 10^3/uL (0.0-0.7); EOSINOPHILS % (AUTO) 6.3 %; HCT - HEMATOCRIT 30.1 % (37.0-47.0); HGB - HEMOGLOBIN 9.6 g/dL (12.0-16.0); LYMPHOCYTES # (AUTO) 1.2 10^3/uL (1.5-3.5); LYMPHOCYTES % (AUTO) 25.3 %; MEAN CORPUSCULAR HEMOGLOBIN 29.4 pg (27.0-31.0); MEAN CORPUSCULAR HGB CONC 31.9 g/dL (32.0-36.0); MEAN PLATELET VOLUME 10.7 fL (7.9-10.8); MONOCYTES # (AUTO) 0.6 10^3/uL (0.0-1.0); MONOCYTES % (AUTO) 12.1 %; NEUTROPHILS # (AUTO) 2.6 10^3/uL (1.5-6.6); NEUTROPHILS % (AUTO) 55.5 %; PLT - PLATELET COUNT 177 10^3/uL (130-450); RED BLOOD COUNT 3.27 10^6/uL (4.20-5.40); RED CELL DISTRIBUTION WIDTH 14.3 % (12.0-15.0); WHITE BLOOD COUNT 4.6 x10^3/uL (4.8-10.8)
[2021-08-22 06:08] LABS: CALCIUM 8.9 mg/dL (8.5-10.3); CREATININE 1.9 mg/dL (0.4-1.0); POTASSIUM 4.5 mmol/L (3.5-5.0)
[2021-08-22] MEDS: BUPRENORPHINE/NALOXONE 8-2 MG TAB SL SCH (06:35)
[2021-08-22 07:32] VITALS: BP 113/47
[2021-08-22] MEDS ORDERED: SODIUM CHLORIDE 0.9% 500 ML IV ONE (07:55)
--- NOTE | 2021-08-22 08:01 | Discharge Plan ---
"Discharge Plan for SNF / [facility] - Discharge Plan And Transition Orders Problem Reviewed?: Yes Disposition: 03 SNF DC/Xfer Condition: Stable Allergies and Adverse Reactions: Allergies Allergy/AdvReac Type Severity Reaction Status Date / Time NSAIDS (Non-Steroidal Allergy Mild Hives Verified 08/18/21 07:16 Anti-Inflamma acetaminophen Allergy Hives Verified 08/18/21 07:16 green pepper Allergy Unknown Verified 08/18/21 07:16 lisinopril Allergy Unknown Verified 08/18/21 07:16 pepper (genus Capsicum) Allergy Unknown Verified 08/20/21 11:32 Sulfa (Sulfonamide AdvReac Mild Rash Verified 08/18/21 07:16 Antibiotics) ondansetron [From Zofran] AdvReac Dizziness Verified 08/18/21 07:16 Health Concerns: Admitted with confusion caused by dehydration. She was not taking her usual medications including her antipsychotics. She needed IV fluids and resumption of all her medications and stabilized. Patient is cooperative and pleasant when she is on her antipsychotic medications. Patient is being discharged to have physical therapy rehab at a SNF. Plan of Treatment: As above. Care Goals: Improvement in symptoms and stabilization are the goals. Assessment: Orders provided for the SNF. - SNF / [facility] Transition Orders Admit to (Facility): [facility] Discharge Diagnosis: (1) Acute metabolic encephalopathy Resolved (2) Acute kidney injury superimposed on CKD Improved with iv fluids and stopping her daily Lasix (3) Bipolar disorder Stabilized (4) Chronic pain syndrome Stable, she is on Suboxone (5) Peripheral neuropathy Stable on meds (6) HTN (hypertension) Stable when we decreased her Toprol dose from 50 mg daily to 12.5 mg daily, due to bradycardia (7) Hypothyroidism Stable Medicare Certification Statement: I certify that [facility] residential care is medically necessary on a continuing basis for any of the conditions for which she/he is receiving care during hospitalization. Notify PCP of admission and forward orders to primary provider for signature. Weight on admission and: Weekly Call PCP immediately if weight increases by: 5 kg Other Notification Orders: Call PCP immediately if patient develops dyspnea, chest pain/tightness or edema. House Bowel Program: Yes Additional Bowel Program Orders: If no BM after 2 days, nurse may give M.O.M. 30ml PO PRN and/or ducolax Supp 1 P R and/or TERRA 250mg P.O., and/or senna 1-2 tabs PO. On day 3 nurse may give repeat above order until residents constipation is resolved. Annual Influenza Vaccine (between Jan 01 and July 31): Yes Two-step PPD per [facility] [phone] or approved exception documents: Yes Treatments & Other Orders: Daily PT and OT Lab Tests or X-ray Orders: BMP every Mon to check creatinine Medication Orders: PLEASE REFER TO THE DISCHARGE MEDICATION LIST. - Medications New Prescriptions: Metoprolol Succinate [Toprol Xl] 12.5 mg PO DAILY #15 tablet - Diet Type: No added salt Texture: Regular Liquids: Thin May have monthly special meal: Yes - Therapies | Activity Therapy: Evaluation | Treat if indicated: PT, OT Rehabilitation Potential: Maximize functional status Activity: Activity as Tolerated Weight Bearing: Full Weight Assistance Devices: Walker Follow Up: See PCP after discharge from SNF."
[2021-08-22] MEDS: polyethylene glycoL 3350 17 GM PACKET PO SCH (08:11)
[2021-08-22] MEDS: risperiDONE 1 MG TABLET PO SCH (08:35)
[2021-08-22] MEDS: ASPIRIN EC 81 MG TABLET PO SCH (08:35)
[2021-08-22] MEDS: DOCUSATE SODIUM 250 MG CAPSULE PO SCH (08:35)
[2021-08-22] MEDS: SENNA 8.6 MG TABLET PO SCH (08:36)
[2021-08-22] MEDS: CYANOCOBALAMIN 500 MCG TABLET PO SCH (08:36)
[2021-08-22] MEDS: VENLAFAXINE ER 75 MG CAPSULE PO SCH (08:36)
[2021-08-22] MEDS: HEPARIN 5,000 UNIT/ML VIAL SUBQ SCH (08:42)
[2021-08-22] MEDS: CHOLECALCIFEROL 25 MCG TABLET PO SCH (08:46)
[2021-08-22] MEDS ORDERED: METOPROLOL SUCCINATE 25 MG TABLET PO SCH (09:00)
[2021-08-22] MEDS ORDERED: amLODIPine 5 MG TABLET PO SCH (09:00)
--- NOTE | 2021-08-22 10:06 | DISCHARGE SUMMARY ---
Discharge Summary Admit Date: 08/18/21 Discharge Date: 08/22/21 Discharging Provider: Dr Gayle Diaz Primary Care Provider: Dr Dae Malagon Condition at Discharge: Stable Discharge Disposition: 03 SNF DC/Xfer - HPI History of Present Illness: From the admission H&P of Dr. Jesse Gallo: This is a 71-year-old female with a past medical history significant for chronic kidney disease, bipolar disorder, peripheral neuropathy, chronic pain who presents today for progressive confusion. The history is obtained from the patient's spouse and the ER physician as the patient is altered and unable to provide a history. Her tells me that she was doing well after being discharged from our Swing bed ([facility]) last month. He states she was more active and walking more frequently. This only lasted for about 1 to 2 weeks before she had progressive decline in her functional status. He states she now probably sits in bed and will only walk to the bathroom with a walker before going back to bed. He states she become more confused over the past 2 days to the point where yesterday she was just yelling out asking for help. He eventually called EMS this morning as she was agreeable to it. He states that he gives the patient her medications and he does not believe she was taking them inappropriately. He states she does not drink alcohol but still does smoke 1 to 2 cigarettes a day. The patient on my evaluation, is able to tell me to the hospital when asked otherwise she mumbles incoherent words before quickly dozing off. In the emergency department, her labs were significant for mild acute kidney injury with a creatinine of 2.1. CT of the head showed no acute abnormalities. She did receive Versed when EMS saw her and she received a dose of Ativan in the emergency department. I did discuss goals of care with the patient's spouse and he believes that she would want to be a full code. - HOSPITAL COURSE Hospital Course: (1) Acute metabolic encephalopathy This was caused by her dehydration and mild uremia. It resolved with iv fluids, she returned to her baseline. She had become somewhat deconditioned from decreased activity at home after her last recent discharge, so she needed rehab with PT and OT and was discharged to a SNF for further rehab. (2) Acute kidney injury superimposed on CKD Improved with iv fluids and stopping her daily Lasix (3) Bipolar disorder We continued her usual anti-psychotic meds. (4) Chronic pain syndrome Stable, she was kept on Suboxone and her usual pain meds. (5) Peripheral neuropathy Stable on meds (6) HTN (hypertension) Stable when we decreased her Toprol dose from 50 mg daily to 12.5 mg daily, due to bradycardia (7) Hypothyroidism Stable, we continued her meds. - ALLERGIES Allergies/Adverse Reactions: Allergies Allergy/AdvReac Type Severity Reaction Status Date / Time NSAIDS (Non-Steroidal Allergy Mild Hives Verified 08/18/21 07:16 Anti-Inflamma acetaminophen Allergy Hives Verified 08/18/21 07:16 green pepper Allergy Unknown Verified 08/18/21 07:16 lisinopril Allergy Unknown Verified 08/18/21 07:16 pepper (genus Capsicum) Allergy Unknown Verified 08/20/21 11:32 Sulfa (Sulfonamide AdvReac Mild Rash Verified 08/18/21 07:16 Antibiotics) ondansetron [From Zofran] AdvReac Dizziness Verified 08/18/21 07:16 - MEDICATIONS Home Medications: Ambulatory Orders Medication Instructions Recorded Confirmed Levothyroxine Sodium 50 mcg PO QDAC #30 07/17/19 08/18/21 gemfibroziL [Gemfibrozil] 600 mg PO BID #60 07/17/19 08/18/21 Cholecalciferol [Vitamin D3] 25 mcg PO DAILY 08/15/20 08/18/21 Gabapentin [Neurontin] 100 mg PO TID 08/15/20 08/18/21 Aspirin [Aspirin EC] 81 mg PO DAILY 12/27/20 08/18/21 Omeprazole Magnesium 20 mg PO DAILY 03/05/21 08/18/21 Buprenorphine HCl/Naloxone HCl 1 tab SL TID 03/27/21 08/18/21 [Suboxone 8-2 mg Tab] Tizanidine HCl 2 mg PO TID 07/06/21 08/18/21 Min Oil/Dimeth/Coconut Oil Crm 1 applic TOP PRN PRN 07/23/21 08/18/21 [Cavilon] Zinc Oxide 20% Oint [Zinc Oxide] 1 applic TOP PRN PRN 07/23/21 08/18/21 risperiDONE [RisperDAL] 1 mg PO BID tablet 07/23/21 08/18/21 LORazepam [Ativan] 0.5 mg PO BID PRN 08/18/21 08/18/21 Venlafaxine HCl [Effexor Xr] 150 mg PO DAILY 08/18/21 08/18/21 polyethylene glycoL 3350 [Miralax] 17 gm PO DAILY PRN 08/18/21 08/18/21 Buprenorphine HCl/Naloxone HCl 1 tab SL TID #21 tablet 08/22/21 [Suboxone 8-2 mg Tab] LORazepam [Ativan] 0.5 mg PO BID PRN #20 tablet 08/22/21 Metoprolol Succinate [Toprol Xl] 12.5 mg PO DAILY #15 tablet 08/22/21 - PHYSICAL EXAM AT DISCHARGE General Appearance: positive: No acute distress, Alert Eyes Bilateral: positive: Normal inspection, EOMI ENT: positive: ENT inspection nml, No signs of dehydration Neck: positive: Nml inspection Respiratory: positive: No respiratory distress Cardiovascular: positive: Regular rate & rhythm Abdomen: positive: Non-tender, No distention Skin: positive: Warm, Dry Extremities: positive: Non-tender, No pedal edema Neurologic/Psychiatric: positive: Oriented x3 (Non-focal) - LABS Result Diagrams: 08/22/21 05:55 08/22/21 05:55 - DIAGNOSTIC IMAGING Diagnostic Imaging Results: Final report reviewed - FOLLOW UP Follow Up: See PCP after discharge from the SNF. - TIME SPENT Time Spent in Discharge (Minutes): 30
== END 2021-08-22 11:48 ==
LOC: EDUNIT# → ED 06:53 → MS2 09:28
PROVIDERS: ADMIT Internal Medicine; ATTEND Internal Medicine
DX: G93.41 Metabolic encephalopathy (principal); N17.9 Acute kidney failure, unspecified; F17.210 Nicotine dependence, cigarettes, uncomplicated; F31.9 Bipolar disorder, unspecified; F41.9 Anxiety disorder, unspecified; I12.9 Hypertensive chronic kidney disease with stage 1 through stage 4 chronic kidney disease, or unspecified chronic kidney disease; E03.9 Hypothyroidism, unspecified; E11.42 Type 2 diabetes mellitus with diabetic polyneuropathy; E78.00 Pure hypercholesterolemia, unspecified; N18.9 Chronic kidney disease, unspecified; J44.9 Chronic obstructive pulmonary disease, unspecified; K21.9 Gastro-esophageal reflux disease without esophagitis; K59.09 Other constipation; M19.90 Unspecified osteoarthritis, unspecified site; M54.9 Dorsalgia, unspecified; G89.4 Chronic pain syndrome; R53.1 Weakness; Z20.822 Contact with and (suspected) exposure to COVID-19; Z74.01 Bed confinement status; Z79.82 Long term (current) use of aspirin; Z79.890 Hormone replacement therapy; Z79.899 Other long term (current) drug therapy; Z82.49 Family history of ischemic heart disease and other diseases of the circulatory system; Z86.718 Personal history of other venous thrombosis and embolism
CPT/HCPCS: 36415; 51701; 70450; 80048; 80053; 80306; 81001; 82274; 82607; 82728; 82746; 83540; 83615; 83690; 84443; 84466; 85025; 85045; 87633; 87635; 96361; 96372; 96374; 96375; 97116; 97161; 97165; 97530; 99285; A9270; G0378; J2060; J7120; 81003; 87086

== ENCOUNTER 2021-09-12 20:16 | Outpatient (CLI) | payer MEDICARE, MEDICAID | END 2021-09-12 20:17 | disposition critical access hospital (66) | LOC: EMS 20:16 | DX: R41.82 Altered mental status, unspecified (principal) | CPT/HCPCS: A0425; A0429 ==

== ENCOUNTER 2021-09-12 20:51 | Inpatient (IN) | payer MEDICARE, MEDICAID ==
[2021-09-12 21:38] LABS: BILIRUBIN,URINE NEGATIVE (NEGATIVE); GLUCOSE, URINE (UA) NEGATIVE (NEGATIVE); KETONES,URINE (UA) NEGATIVE (NEGATIVE); LEUKOCYTE ESTERASE, URINE MODERATE (NEGATIVE); MUDS CUTOFF CONCENTRATIONS CUTOFF CONC BELOW:; NITRITE,URINE NEGATIVE (NEGATIVE); OCCULT BLOOD,URINE TRACE-INTA (NEGATIVE); PROTEIN,URINE TRACE mg/dL (NEGATIVE); UROBILINOGEN,URINE 0.2 (NORMAL) E.U./dL (NORMAL)
[2021-09-12 21:42] LABS: CLARITY,URINE HAZY (CLEAR)
[2021-09-12 21:48] LABS: EPITHELIAL CELLS,UR RARE Transitional /HPF (<= Few); RBC,URINE 0-5 /HPF (0-5); SQUAMOUS EPITHELIAL CELL,UR RARE Squamous (<= Few); WBC,URINE >25 /HPF (0-5)
[2021-09-12 21:49] LABS: AMPHETAMINE SCREEN,URINE NEGATIVE (NEGATIVE); BACTERIA,URINE Few /HPF (None Seen); BARBITURATE SCREEN,UR NEGATIVE (NEGATIVE); BENZODIAZEPINES SCREEN, URINE NEGATIVE (NEGATIVE); COCAINE SCREEN URINE NEGATIVE (NEGATIVE); METHADONE SCREEN, URINE NEGATIVE (NEGATIVE); METHAMPHETAMINES SCREEN, URINE NEGATIVE (NEGATIVE); OPIATE SCREEN, URINE NEGATIVE (NEGATIVE); OXYCODONE SCREEN, URINE NEGATIVE (NEGATIVE); PROPOXYPHENE SCREEN, URINE NEGATIVE (NEGATIVE); THC CANNABINOID SCREEN, URINE NEGATIVE (NEGATIVE); TRICYCLIC ANTIDEPRESSANT,URINE NEGATIVE (NEGATIVE)
[2021-09-12 21:57] LABS: BASOPHILS % (AUTO) 0.3 %; EOSINOPHILS # (AUTO) 0.4 10^3/uL (0.0-0.7); EOSINOPHILS % (AUTO) 4.9 %; HCT - HEMATOCRIT 36.6 % (37.0-47.0); HGB - HEMOGLOBIN 11.7 g/dL (12.0-16.0); LYMPHOCYTES # (AUTO) 1.2 10^3/uL (1.5-3.5); LYMPHOCYTES % (AUTO) 14.4 %; MEAN CORPUSCULAR VOLUME 90.8 fL (81.0-99.0); MEAN PLATELET VOLUME 9.7 fL (7.9-10.8); MONOCYTES # (AUTO) 0.6 10^3/uL (0.0-1.0); MONOCYTES % (AUTO) 7.5 %; NEUTROPHILS # (AUTO) 5.8 10^3/uL (1.5-6.6); NEUTROPHILS % (AUTO) 72.5 %; PLT - PLATELET COUNT 284 10^3/uL (130-450); RED BLOOD COUNT 4.03 10^6/uL (4.20-5.40); RED CELL DISTRIBUTION WIDTH 13.3 % (12.0-15.0)
[2021-09-12 22:07] LABS: ABG BASE EXCESS 0.8 mmol/L (-2.0-3.0); ABG HCO3 26.2 mmol/L (22.0-26.0); ABG OXYGEN SATURATION 94 % (94-98); ABG PCO2 45 mmHg (34-45); ABG PH 7.38 (7.35-7.45); ABG PO2 71 mmHg (80-100); ABG TCO2 27.6 MMOL/L (21.0-29.0); ALLEN TEST POSITIVE
[2021-09-12 22:12] LABS: ALBUMIN 3.8 g/dL (3.2-5.5); ALBUMIN/GLOBULIN RATIO 0.9 (1.0-2.2); ALKALINE PHOSPHATASE 99 IU/L (42-121); ALT ALANINE AMINOTRANSFERASE < 10 IU/L (10-60); AST ASPARTATE AMINOTRANSFERASE 11 IU/L (10-42); BILIRUBIN,TOTAL 0.7 mg/dL (0.2-1.0); BUN - BLOOD UREA NITROGEN 50 mg/dL (6-20); CALCIUM 9.6 mg/dL (8.5-10.3); CARBON DIOXIDE - CO2 25 mmol/L (21-32); CHLORIDE 103 mmol/L (101-111); CREATININE 2.2 mg/dL (0.4-1.0); GFR - MDRD 22 (>89); GLUCOSE 123 mg/dL (70-100); POTASSIUM 3.9 mmol/L (3.5-5.0); SODIUM 141 mmol/L (135-145); TOTAL PROTEIN 7.9 g/dL (6.7-8.2)
--- NOTE | 2021-09-12 22:15 | ED Physician Documentation ---
PD HPI ALTERED MENTAL STATUS - Stated complaint Stated Complaint: AMS - Chief complaint Chief Complaint: Neuro - History obtained from History obtained from: EMS - History of Present Illness Timing - onset: How many days ago (2) Quality / character: Less responsive Associated symptoms: No: Fever Recently seen: Admitted - Additional information Additional information: BIBA for AMS. Recent inpatient stays including last month (08/18). called 911 tonight due to AMS. Patient unable to provide any information (HPI, ROS) due to severe AMS. Review of Systems Unable to obtain: AMS, Confused PD PAST MEDICAL HISTORY - Past Medical History Past Medical History: Yes Cardiovascular: Hypertension, High cholesterol, Deep vein thrombosis, Murmur Respiratory: Asthma, COPD, Shortness of breath Neuro: Peripheral neuropathy Endocrine/Autoimmune: Type 2 diabetes GI: GERD, Chronic constipation, Pancreatitis RELATIONSHIP ASSOC: None : Incontinence, Chronic bladder infection HEENT: None Psych: Anxiety, Bipolar disorder, Other Musculoskeletal: Osteoarthritis, Fatigue, Chronic back pain, Other Derm: Other - Past Surgical History Past Surgical History: Yes General: EGD, Colonoscopy Ortho: Knee replacement, Spine surgery /RELATIONSHIP ASSOC: section HEENT: Tonsil/Adenoidectomy - Present Medications Home Medications: Ambulatory Orders Medication Instructions Recorded Confirmed Levothyroxine Sodium 50 mcg PO QDAC #30 07/17/19 09/13/21 gemfibroziL [Gemfibrozil] 600 mg PO BID #60 07/17/19 09/13/21 Cholecalciferol [Vitamin D3] 25 mcg PO DAILY 08/15/20 09/13/21 Gabapentin [Neurontin] 100 mg PO TID 08/15/20 09/13/21 Aspirin [Aspirin EC] 81 mg PO DAILY 12/27/20 09/13/21 Omeprazole Magnesium 20 mg PO DAILY 03/05/21 09/13/21 Buprenorphine HCl/Naloxone HCl 1 tab SL TID 03/27/21 09/13/21 [Suboxone 8-2 mg Tab] Tizanidine HCl 2 mg PO TID 07/06/21 09/13/21 Min Oil/Dimeth/Coconut Oil Crm 1 applic TOP PRN PRN 07/23/21 09/13/21 [Cavilon] Zinc Oxide 20% Oint [Zinc Oxide] 1 applic TOP PRN PRN 07/23/21 09/13/21 risperiDONE [RisperDAL] 1 mg PO BID tablet 07/23/21 09/13/21 Venlafaxine HCl [Effexor Xr] 150 mg PO DAILY 08/18/21 09/13/21 polyethylene glycoL 3350 [Miralax] 17 gm PO DAILY PRN 08/18/21 09/13/21 LORazepam [Ativan] 0.5 mg PO BID PRN #20 tablet 08/22/21 09/13/21 Furosemide [Lasix] 20 mg PO DAILY 09/13/21 09/13/21 Metoprolol Succinate [Toprol Xl] 50 mg PO DAILY 09/13/21 09/13/21 - Allergies Allergies/Adverse Reactions: Allergies Allergy/AdvReac Type Severity Reaction Status Date / Time NSAIDS (Non-Steroidal Allergy Mild Hives Verified 09/12/21 21:03 Anti-Inflamma acetaminophen Allergy Hives Verified 09/12/21 21:03 green pepper Allergy Unknown Verified 09/12/21 21:03 lisinopril Allergy Unknown Verified 09/12/21 21:03 pepper (genus Capsicum) Allergy Unknown Verified 09/12/21 21:03 Sulfa (Sulfonamide AdvReac Mild Rash Verified 09/12/21 21:03 Antibiotics) ondansetron [From Zofran] AdvReac Dizziness Verified 09/12/21 21:03 - Social History Does the pt smoke?: Yes Smoking Status: Current every day smoker Does the pt drink ETOH?: No Does the pt have substance abuse?: No - Immunizations Immunizations are current?: Yes Immunizations: TDAP >10years/unknown - POLST Patient has POLST: No POLST Status: Full Code PD ED PE NORMAL - Vitals Vital signs reviewed: Yes - General General: No acute distress, Well developed/nourished, Other (obtunded, no verbal response until I administer sternal rub; subsequent to this, she answers all questions with Micaela (when asked name, month, place, etc). no eye contact) - HEENT HEENT: Other (dry mucous membranes) - Cardiac Cardiac: RRR - Respiratory Respiratory: No respiratory distress, Clear bilaterally - Abdomen Abdomen: Normal bowel sounds, Soft, Non tender Results - Vitals Vitals: Oxygen O2 Source [Without Activity] Room air O2 Source Room air - EKG (time done) No standard instances Rate: Rate (enter#) (55) Rhythm: Sinus bradycardia [place]: LAD Intervals: Other (short NC) QRS: Normal - Labs Labs: Microbiology 09/12/21 21:25 Urine Culture - Final Urine,Catheterized No growth 09/12/21 22:31 Blood Culture - Preliminary Blood NO GROWTH AFTER 1 DAY 09/12/21 21:35 Blood Culture - Preliminary Blood - Right Hand NO GROWTH AFTER 1 DAY Laboratory Tests 09/12/21 09/12/21 09/12/21 21:25 21:35 21:35 WBC 8.0 RBC 4.03 L Hgb 11.7 L Hct 36.6 L MCV 90.8 MCH 29.0 MCHC 32.0 RDW 13.3 Plt Count 284 MPV 9.7 Neut # (Auto) 5.8 Lymph # (Auto) 1.2 L [place] # (Auto) 0.6 Eos # (Auto) 0.4 Baso # (Auto) 0.0 Absolute Nucleated RBC 0.00 Nucleated RBC % 0.0 Bld Gas Analysis Time Sample Site ABG pH ABG pCO2 ABG pO2 ABG HCO3 ABG Total CO2 ABG O2 Saturation ABG Base Excess Thien Test Room Air FiO2 Sodium 141 Potassium 3.9 Chloride 103 Carbon Dioxide 25 Anion Gap 13.0 BUN 50 H Creatinine 2.2 H Estimated GFR (MDRD) 22 L Glucose 123 H Lactic Acid Calcium 9.6 Total Bilirubin 0.7 AST 11 ALT < 10 L Alkaline Phosphatase 99 Troponin I High Sens Total Protein 7.9 Albumin 3.8 Globulin 4.1 Albumin/Globulin Ratio 0.9 L Urine Color YELLOW Urine Clarity HAZY Urine pH 6.0 Ur Specific [place] 1.010 Urine Protein TRACE Urine Glucose (UA) NEGATIVE Urine Ketones NEGATIVE Urine Occult Blood TRACE-INTA Urine Nitrite NEGATIVE Urine Bilirubin NEGATIVE Urine Urobilinogen 0.2 (NORMAL) Ur Leukocyte Esterase MODERATE H Urine RBC 0-5 Urine WBC >25 H Ur Epithelial Cells RARE Transitional Ur Squamous Epith Cells RARE Squamous Urine Bacteria Few Urine Culture Comments INDICATED Urine Opiates Screen NEGATIVE Ur Oxycodone Screen NEGATIVE Urine Methadone Screen NEGATIVE Ur Propoxyphene Screen NEGATIVE Ur Barbiturates Screen NEGATIVE Ur Tricyclics Screen NEGATIVE Ur Phencyclidine Scrn NEGATIVE Ur Amphetamine Screen NEGATIVE U Methamphetamines Scrn NEGATIVE U Benzodiazepines Scrn NEGATIVE Urine Cocaine Screen NEGATIVE U Cannabinoids Screen NEGATIVE SARS-CoV-2 (PCR) 09/12/21 09/12/21 09/12/21 21:35 22:00 22:31 WBC RBC Hgb Hct MCV MCH MCHC RDW Plt Count MPV Neut # (Auto) Lymph # (Auto) [place] # (Auto) Eos # (Auto) Baso # (Auto) Absolute Nucleated RBC Nucleated RBC % Bld Gas Analysis Time 2204 Sample Site LEFT RADIAL ABG pH 7.38 ABG pCO2 45 ABG pO2 71 L ABG HCO3 26.2 H ABG Total CO2 27.6 ABG O2 Saturation 94 ABG Base Excess 0.8 Thien Test POSITIVE Room Air YES FiO2 21.00 Sodium Potassium Chloride Carbon Dioxide Anion Gap BUN Creatinine Estimated GFR (MDRD) Glucose Lactic Acid 1.4 Calcium Total Bilirubin AST ALT Alkaline Phosphatase Troponin I High Sens 11.2 Total Protein Albumin Globulin Albumin/Globulin Ratio Urine Color Urine Clarity Urine pH Ur Specific [place] Urine Protein Urine Glucose (UA) Urine Ketones Urine Occult Blood Urine Nitrite Urine Bilirubin Urine Urobilinogen Ur Leukocyte Esterase Urine RBC Urine WBC Ur Epithelial Cells Ur Squamous Epith Cells Urine Bacteria Urine Culture Comments Urine Opiates Screen Ur Oxycodone Screen Urine Methadone Screen Ur Propoxyphene Screen Ur Barbiturates Screen Ur Tricyclics Screen Ur Phencyclidine Scrn Ur Amphetamine Screen U Methamphetamines Scrn U Benzodiazepines Scrn Urine Cocaine Screen U Cannabinoids Screen SARS-CoV-2 (PCR) 09/13/21 00:25 WBC RBC Hgb Hct MCV MCH MCHC RDW Plt Count MPV Neut # (Auto) Lymph # (Auto) [place] # (Auto) Eos # (Auto) Baso # (Auto) Absolute Nucleated RBC Nucleated RBC % Bld Gas Analysis Time Sample Site ABG pH ABG pCO2 ABG pO2 ABG HCO3 ABG Total CO2 ABG O2 Saturation ABG Base Excess Thien Test Room Air FiO2 Sodium Potassium Chloride Carbon Dioxide Anion Gap BUN Creatinine Estimated GFR (MDRD) Glucose Lactic Acid Calcium Total Bilirubin AST ALT Alkaline Phosphatase Troponin I High Sens Total Protein Albumin Globulin Albumin/Globulin Ratio Urine Color Urine Clarity Urine pH Ur Specific [place] Urine Protein Urine Glucose (UA) Urine Ketones Urine Occult Blood Urine Nitrite Urine Bilirubin Urine Urobilinogen Ur Leukocyte Esterase Urine RBC Urine WBC Ur Epithelial Cells Ur Squamous Epith Cells Urine Bacteria Urine Culture Comments Urine Opiates Screen Ur Oxycodone Screen Urine Methadone Screen Ur Propoxyphene Screen Ur Barbiturates Screen Ur Tricyclics Screen Ur Phencyclidine Scrn Ur Amphetamine Screen U Methamphetamines Scrn U Benzodiazepines Scrn Urine Cocaine Screen U Cannabinoids Screen SARS-CoV-2 (PCR) NOT DETECTED - Rads (name of study) chest xray Radiology: Prelim report reviewed, See rad report PD MEDICAL DECISION MAKING - ED course Complexity details: reviewed old records, reviewed results, re-evaluated patient, considered differential ED course: presents with severe AMS, only responds to me with verbal after sternal rub, and then the only answer she provides to all questions is Micaela. UA c/w UTI. No remarkable findings on other testing tonight. Given IV rocephin and admitted to hospitalist service. Departure - Departure Disposition: ED Place in Observation Clinical Impression: Altered mental status UTI (urinary tract infection) Qualifiers: Qualified Code(s): N30.00 - Acute cystitis without hematuria Condition: Stable Discharge Date/Time: 09/13/21 01:45
--- NOTE | 2021-09-12 22:22 | XRAY Report ---
PROCEDURE: Chest 1 View X-Ray INDICATIONS: chest pain TECHNIQUE: One view of the chest was acquired. COMPARISON: CXR 08/04/2021, 03/13/2020. FINDINGS: Surgical changes and devices: None. Lungs and pleura: No pleural effusions or pneumothorax. Lungs are clear. Mediastinum: Mediastinal contours appear normal. Heart size is within normal limits. Bones and chest wall: No suspicious bony lesions. Overlying soft tissues appear unremarkable. IMPRESSION: No acute cardiopulmonary abnormality. Reviewed by: Jose Luis Paredes MD on 09/12/2021 10:21 PM PDT Approved by: Jose Luis Paredes MD on 09/12/2021 10:21 PM PDT Station ID: [id number]
[2021-09-12] MEDS ORDERED: SODIUM CHLORIDE 0.9% 1,000 ML IV STA (23:42)
[2021-09-12] MEDS ORDERED: cefTRIAXone 1 GM in SODIUM CHLORIDE 0.9% MINIBAG 100 ML IV STA (23:43)
[2021-09-12] MEDS ORDERED: cefTRIAXone 1 GM VIAL ONE (23:58)
[2021-09-13] MEDS ORDERED: ONDANSETRON ODT 4 MG TABLET TL PRN (01:04)
[2021-09-13] MEDS ORDERED: NALOXONE 0.4 MG/ML VIAL IVP STA (01:12)
--- NOTE | 2021-09-13 01:41 | HISTORY & PHYSICAL EXAMINATION ---
Chief Complaint - Chief Complaint Chief Complaint: Altered Mental Status History of Present Illness - Admitted From Admitted From:: ED - History Obtained From Records Reviewed: Yes History obtained from: ED staff Exam Limitations: Patient unable to answer questions - History of Present Illness HPI Comment/Other: A 71 year old female presents after she was brought to the ED by EMS for altered mental status and generalized weakness. Patient is unable to respond to questions and HPI was obtained through ED staff. The patient was found by her in an altered mental state this evening, she responds to speech and touch by moaning and cannot respond verbally. reportedly stated that the patient has experienced similar episodes in the past whenever she has a urinary tract infection. The patient has also been in the hospital repeatedly for similar episodes caused by opioid overdose and poor medication management. The patient lives with her who is unable to care for her. The patient was recently discharged from a shelter 2 days ago following a hospital visit for treatment of sepsis. No ROS could be obtained due to patients inability to answer yes/no questions. History - Past Medical History Cardiovascular: reports: Hypertension, High cholesterol, Deep vein thrombosis, Murmur Respiratory: reports: Asthma, COPD, Shortness of breath Neuro: reports: Peripheral neuropathy Endocrine/Autoimmune: reports: Type 2 diabetes GI: reports: GERD, Chronic constipation, Pancreatitis LUMBER SALVAGER: reports: None : reports: Incontinence, Chronic bladder infection HEENT: reports: None Psych: reports: Anxiety, Bipolar disorder, Other Musculoskeletal: reports: Osteoarthritis, Fatigue, Chronic back pain, Other Derm: reports: Other MRSA Hx?: No - Past Surgical History General: reports: EGD, Colonoscopy Ortho: reports: Knee replacement, Spine surgery /LUMBER SALVAGER: reports: section HEENT: reports: Tonsil/Adenoidectomy - Family & Social History Family History: Mother: , CAD, Father: , CAD Family History Comment/Other: I am unable to update her family history due to her encephalopathy but review of prior records revealed that both her mother and father of heart disease at the age of 57. Living Situation: With spouse/s.o. Social History Notes: Her tells me that she used to smoke a pack a day but now smokes about 2 cigarettes a day. He denies any alcohol use. - Substance History Use: Uses substance without health or social issues: Tobacco (hx) - POLST Patient has POLST: No POLST Status: Full Code Meds/Allgy - Home Medications Home Medications: Ambulatory Orders Medication Instructions Recorded Confirmed Levothyroxine Sodium 50 mcg PO QDAC #30 07/17/19 09/13/21 gemfibroziL [Gemfibrozil] 600 mg PO BID #60 07/17/19 09/13/21 Cholecalciferol [Vitamin D3] 25 mcg PO DAILY 08/15/20 09/13/21 Gabapentin [Neurontin] 100 mg PO TID 08/15/20 09/13/21 Aspirin [Aspirin EC] 81 mg PO DAILY 12/27/20 09/13/21 Omeprazole Magnesium 20 mg PO DAILY 03/05/21 09/13/21 Buprenorphine HCl/Naloxone HCl 1 tab SL TID 03/27/21 09/13/21 [Suboxone 8-2 mg Tab] Tizanidine HCl 2 mg PO TID 07/06/21 09/13/21 Min Oil/Dimeth/Coconut Oil Crm 1 applic TOP PRN PRN 07/23/21 09/13/21 [Cavilon] Zinc Oxide 20% Oint [Zinc Oxide] 1 applic TOP PRN PRN 07/23/21 09/13/21 risperiDONE [RisperDAL] 1 mg PO BID tablet 07/23/21 09/13/21 Venlafaxine HCl [Effexor Xr] 150 mg PO DAILY 08/18/21 09/13/21 polyethylene glycoL 3350 [Miralax] 17 gm PO DAILY PRN 08/18/21 09/13/21 LORazepam [Ativan] 0.5 mg PO BID PRN #20 tablet 08/22/21 09/13/21 Furosemide [Lasix] 20 mg PO DAILY 09/13/21 09/13/21 Metoprolol Succinate [Toprol Xl] 50 mg PO DAILY 09/13/21 09/13/21 - Allergies Allergies/Adverse Reactions: Allergies Allergy/AdvReac Type Severity Reaction Status Date / Time NSAIDS (Non-Steroidal Allergy Mild Hives Verified 09/12/21 21:03 Anti-Inflamma acetaminophen Allergy Hives Verified 09/12/21 21:03 green pepper Allergy Unknown Verified 09/12/21 21:03 lisinopril Allergy Unknown Verified 09/12/21 21:03 pepper (genus Capsicum) Allergy Unknown Verified 09/12/21 21:03 Sulfa (Sulfonamide AdvReac Mild Rash Verified 09/12/21 21:03 Antibiotics) ondansetron [From Zofran] AdvReac Dizziness Verified 09/12/21 21:03 Review of Systems - Other Findings Other Findings: No ROS could be obtained as patient is unable to answer yes/no questions due to altered mental status. Prior Level of Functionality: Patient was discharged to home 2 days ago from a nursing facility after a recent inpatient admission for sepsis. Functional status unknown. Exam - Vital Signs Reviewed Vital Signs: Yes Vital Signs: Vital Signs x48h Temp Pulse Resp BP Pulse Ox 09/13/21 01:01 47 L 12 131/59 H 99 09/13/21 00:30 47 L 10 L 100 09/13/21 00:07 46 L 14 105/85 H 96 09/12/21 23:55 44 L 129/78 99 09/12/21 22:43 44 L 125/70 94 09/12/21 22:32 51 L 20 110/45 L 97 09/12/21 22:21 44 L 14 110/45 L 99 09/12/21 21:30 53 L 97 09/12/21 21:28 37.0 C 53 L 18 118/67 100 09/12/21 20:52 37.1 C 47 L 21 113/98 H 96 - Physical Exam Eyes Bilateral: positive: Normal inspection, Conjunctivae nml Neck: positive: Other (Unable to assess for JVD due to body habitus) Respiratory: positive: No respiratory distress, Breath sounds nml Cardiovascular: positive: No murmur, No gallop, Bradycardia. negative: Irregularly irregular Peripheral Pulses: positive: 2+ Abdomen: positive: Nml bowel sounds, No distention Skin: positive: Warm, Dry, Skin rash, Other (Crusted vesicles on erythematous base on patient's left flank). negative: Cyanosis, Diaphoresis, Pallor Extremities: positive: No pedal edema Neurologic/Psychiatric: positive: Other (Patient moaning frequently. Unable to respond to yes/no questions.) Conclusion/Plan - Problem List (1) Altered mental status Conclusion/Plan: A 71 year old female who was treated for sepsis last month presents with altered mental status after experiencing many similar episodes in the past due to drug overdose and poorly optimized care at home. ROS cannot be obtained and there is no family present, though the patient's reportedly stated that she has similar episodes when she has a urinary tract infection. Physical exam is largely unremarkable other than the patient's inability to communicate verbally and persistent moaning. Neurological and drug/toxin etiologies ruled out by negative head CT, lack of focal neurological defecits, and negative tox screen. Patient was also unresponsive to naloxone administration. Urinalysis shows presence of white blood cells and leukocyte esterase, though epithelial and transitional cells were also present indicating a potentially contaminated specimen. Patient is unlikely to be have other sources of infection; white blood cell count is within normal limits and there is no other concerning source of infection. The patient is likely experiencing encephalopathy as a result of UTI and she is being treated with with ceftriaxone IV and being kept for observation overnight. Qualifiers: Altered mental status type: stupor Qualified Code(s): R40.1 - Stupor (2) UTI (urinary tract infection) Conclusion/Plan: Urinalysis revealed leukocyte esterase and WBCs, though sample may have been contaminated. UTI may be contributing to altered mental status. Patient has a history of chronic bladder infection is being treated with ceftriaxone as above. Urine cultures have been collected and antibiotics will be changed as needed. Qualifiers: Urinary tract infection type: acute cystitis Hematuria presence: without hematuria Qualified Code(s): N30.00 - Acute cystitis without hematuria (3) Acute kidney injury superimposed on CKD Conclusion/Plan: Kidney injury likely a result of dehydration as a result inability to properly care for herself and may have been exacerbated by concurrent UTI. Patient will be given IV fluids and empiric antibiotics to treat her infection. (4) Diabetes mellitus type 2, diet-controlled Conclusion/Plan: Type 2 DM well controlled by diet. The patient's HbA1c has been in the mid 5% range for several years. Routine glucose monitoring and insulin use is not warranted during this visit. She will be provided with a low-carb diet for the duration of her stay. (5) Anemia Conclusion/Plan: Patient has a history of mild anemia. Her hemoglobin and hematocrit levels are not concerning at this time, though they will be monitored during her stay. Qualifiers: Anemia type: unspecified type Qualified Code(s): D64.9 - Anemia, unspecified (6) HTN (hypertension) Conclusion/Plan: Patient is not currently taking home medications for hypertension. Systolics are elevated but do not need to be treated at this time. Qualifiers: Hypertension type: primary hypertension Qualified Code(s): I10 - Essential (primary) hypertension (7) Shingles Conclusion/Plan: Crusted vesicular rash on the patient's left flank is likely to be shingles. The lesion was covered by a bandage and will be further addressed if indicated. Qualifiers: Herpes zoster complications: without complications Qualified Code(s): B02.9 - Zoster without complications - Lab Results Fish Bones: 09/12/21 21:35 09/13/21 10:32 - Diagnostic Imaging Results Diagnostic Imaging Results: positive: Final report reviewed Diagnostic Imaging Results Comments: Head CT Core Measures - Anticipated LOS I expect patient to be DC'd or transferred within 96 hours.: Yes - DVT/VTE - Prophylaxis VTE/DVT Device ordered at admit?: Yes
[2021-09-13] MEDS: SODIUM CHLORIDE FLUSH 0.9% 10 ML SYRINGE IVP PRN (01:58)
[2021-09-13] MEDS: LACTATED RINGERS 1,000 ML IV SCH ×2 (01:58→11:43)
--- NOTE | 2021-09-13 02:18 | CT Report ---
PROCEDURE: HEAD WO INDICATIONS: unresponsive TECHNIQUE: Noncontrast 5 mm thick angled axial sections acquired from the foramen magnum to the vertex. For rad iation dose reduction, the following was used: automated exposure control, adjustment of mA and/or k V according to patient size. COMPARISON: CT head 08/18/2021. FINDINGS: Image quality: Excellent. CSF spaces: There is [id number] cerebral volume loss redemonstrated with prominence of the jim tricles and sulci. Basal cisterns are patent. No extra-axial fluid collections. Brain: No intracranial hemorrhage, mass, or mass effect. Cam-white matter interface is preserved. T here are subcortical and periventricular white matter hypodensities consistent with mild to moderate chronic small vessel ischemic changes. Skull and face: Calvarium and visualized facial bones are intact, without suspicious lesions. Sinuses: Visualized sinuses and mastoids are clear. IMPRESSION: No acute intracranial abnormality. 2. Mild to moderate cerebral volume loss and chronic white matter small vessel ischemic changes. Reviewed by: Alpesh Marcos MD on 09/13/2021 2:16 AM PDT Approved by: Alpesh Marcos MD on 09/13/2021 2:16 AM PDT Station ID: [id number]
[2021-09-13] MEDS: ENOXAPARIN 30 MG/0.3 ML SYRINGE SUBQ SCH (09:16)
[2021-09-13] MEDS: SODIUM CHLORIDE FLUSH 0.9% 10 ML SYRINGE IVP SCH ×2 (09:16→18:09)
[2021-09-13 10:47] LABS: CALCIUM 9.4 mg/dL (8.5-10.3); CREATININE 1.8 mg/dL (0.4-1.0); POTASSIUM 3.9 mmol/L (3.5-5.0)
[2021-09-13] MEDS: cefTRIAXone 1 GM in SODIUM CHLORIDE 0.9% MINIBAG 100 ML IV SCH (11:38)
--- NOTE | 2021-09-13 13:02 | PHARMACY PROGRESS NOTE ---
- Best Possible Medication History Admit Date and Time: 09/13/21 0104 Processed by: Pharmacy Medication History completed: Yes Patient Interview: Pt unable to participate Secondary Source(s): Physician records, Pharmacy records, Insurance records, Previous admit records As the person ultimately responsible for medication therapy, providers are able to order a medication from an existing home medication list in [facility] via the "Reconcile Routine" prior to Confirmation of that medication by legal support analyst. Such practice is discouraged except when the physician, in their clinical judgment, deems that a medical need exists for a medication without regard to previous use.
[2021-09-13] MEDS ORDERED: HALOPERIDOL 5 MG/ML VIAL IM ONE (19:34)
--- NOTE | 2021-09-13 20:13 | PROVIDER PROGRESS NOTE ---
Subjective - Prog Note Date Prog Note Date: 09/14/21 Prog Note Time: 00:05 - Subjective Subjective: Patient is confused and agitated and is unable to hold a meaningful conversation. She states that she manages her own medications at home. ROS could not be obtained. Patient received a dose of haloperidol for agitation on 09/13/2021. Current Medications - Current Medications Current Medications: Active Medications Acetaminophen (Acetaminophen 325 Mg Tablet) 650 mg PO Q4HR PRN PRN Reason: Pain 1 to 4, or Fever Docusate Sodium (Docusate Sodium 250 Mg Capsule) 250 - 500 mg PO DAILY [facility] Enoxaparin Sodium (Enoxaparin 30 Mg/0.3 Ml Syringe) 30 mg SUBQ DAILY [facility] Last Admin: 09/13/21 09:16 Dose: 30 mg Lactated Ringer's (Lr) 1,000 mls @ 100 mls/hr IV .Q10H [facility] Last Infusion: 09/13/21 19:39 Dose: 0 mls/hr Ceftriaxone Sodium 1 gm/ (Sodium Chloride) 100 mls @ 200 mls/hr IV DAILY [facility] Last Infusion: 09/13/21 12:10 Dose: Infused Ondansetron HCl (Ondansetron Odt 4 Mg Tablet) 4 mg TL Q6HR PRN PRN Reason: Nausea / Vomiting Ondansetron HCl (Ondansetron 4 Mg/2 Ml Vial) 4 mg IVP Q6HR PRN PRN Reason: Nausea / Vomiting Polyethylene Glycol (Polyethylene Glycol 3350 17 Gm Packet) 17 gm PO DAILY [facility] Senna (Senna 8.6 Mg Tablet) 8.6 - 17.2 mg PO DAILY [facility] Sodium Chloride (Sodium Chloride Flush 0.9% 10 Ml Syringe) 10 ml IVP PRN PRN PRN Reason: NEEDED PER PROVIDER ORDERS Last Admin: 09/13/21 01:58 Dose: 20 ml Sodium Chloride (Sodium Chloride Flush 0.9% 10 Ml Syringe) 10 ml IVP 0100,0900,1700 [facility] Last Admin: 09/13/21 18:09 Dose: 10 ml Cholecalciferol [Vitamin D3] 25 mcg PO DAILY 08/15/20 Gabapentin [Neurontin] 100 mg PO TID 08/15/20 Aspirin [Aspirin EC] 81 mg PO DAILY 12/27/20 Omeprazole Magnesium 20 mg PO DAILY 11/03/21 Buprenorphine HCl/Naloxone HCl [Suboxone 8-2 mg Tab] 1 tab SL TID 03/27/21 Tizanidine HCl 2 mg PO TID 07/06/21 Venlafaxine HCl [Effexor Xr] 150 mg PO DAILY 08/18/21 polyethylene glycoL 3350 [Miralax] 17 gm PO DAILY PRN 08/18/21 Furosemide [Lasix] 20 mg PO DAILY 09/13/21 Metoprolol Succinate [Toprol Xl] 50 mg PO DAILY 09/13/21 Objective - Vital Signs/Intake & Output Reviewed Vital Signs: Yes Vital Signs: Vital Signs x48h Temp Pulse Resp BP Pulse Ox 09/13/21 15:30 36.9 C 100 24 145/98 H 96 Intake & Output: Intake & Output 09/10/21 09/11/21 09/12/21 09/13/21 23:59 23:59 23:59 23:59 Intake Total 4041.667 Output Total 2225 Balance 1816.667 - Objective General Appearance: positive: Other (Patient is agitatied and fixated, repeating words that are said by those around her.) Neck: positive: Nml inspection Respiratory: positive: No respiratory distress, Breath sounds nml Cardiovascular: positive: Regular rate & rhythm, No murmur, No gallop Abdomen: positive: No distention Skin: positive: Color nml, Warm, Dry, Skin rash (erythematous rash on left flank). negative: Cyanosis, Diaphoresis, Pallor Extremities: positive: No pedal edema Neurologic/Psychiatric: positive: Other (confused, paranoid, delusions about b eing murdered, experiencing echolalia.). negative: Oriented x3, Mood/affect nml - Lab Results Fish Bones: 09/12/21 21:35 09/13/21 10:32 Other Labs: Lab Results x24hrs 09/13/21 09/13/21 09/12/21 Range/Units 10:32 00:25 22:31 WBC (4.8-10.8) x10^3/uL RBC (4.20-5.40) 10^6/uL Hgb (12.0-16.0) g/dL Hct (37.0-47.0) % MCV (81.0-99.0) fL MCH (27.0-31.0) pg MCHC (32.0-36.0) g/dL RDW (12.0-15.0) % Plt Count (130-450) 10^3/uL MPV (7.9-10.8) fL Neut # (Auto) (1.5-6.6) 10^3/uL Lymph # (Auto) (1.5-3.5) 10^3/uL [place] # (Auto) (0.0-1.0) 10^3/uL Eos # (Auto) (0.0-0.7) 10^3/uL Baso # (Auto) (0.0-0.1) 10^3/uL Absolute Nucleated RBC x10^3/uL Nucleated RBC % /100WBC Bld Gas Analysis Time Sample Site ABG pH (7.35-7.45) ABG pCO2 (34-45) mmHg ABG pO2 (80-100) mmHg ABG HCO3 (22.0-26.0) mmol/L ABG Total CO2 (21.0-29.0) MMOL/L ABG O2 Saturation (94-98) % ABG Base Excess (-2.0-3.0) mmol/L [place] Test Room Air FiO2 Sodium 146 H (135-145) mmol/L Potassium 3.9 (3.5-5.0) mmol/L Chloride 111 (101-111) mmol/L Carbon Dioxide 24 (21-32) mmol/L Anion Gap 11.0 (6-13) BUN 44 H (6-20) mg/dL Creatinine 1.8 H (0.4-1.0) mg/dL Estimated GFR (MDRD) 28 L (>89) Glucose 98 (70-100) mg/dL Lactic Acid 1.4 (0.5-2.2) mmol/L Calcium 9.4 (8.5-10.3) mg/dL Total Bilirubin (0.2-1.0) mg/dL AST (10-42) IU/L ALT (10-60) IU/L Alkaline Phosphatase (42-121) IU/L Troponin I High Sens (2.3-14.8) ng/L Total Protein (6.7-8.2) g/dL Albumin (3.2-5.5) g/dL Globulin (2.1-4.2) g/dL Albumin/Globulin Ratio (1.0-2.2) Urine Color Urine Clarity (CLEAR) Urine pH (5.0-7.5) PH Ur Specific [place] (1.002-1.030) Urine Protein (NEGATIVE) mg/dL Urine Glucose (UA) (NEGATIVE) mg/dL Urine Ketones (NEGATIVE) mg/dL Urine Occult Blood (NEGATIVE) Urine Nitrite (NEGATIVE) Urine Bilirubin (NEGATIVE) Urine Urobilinogen (NORMAL) E.U./dL Ur Leukocyte Esterase (NEGATIVE) Urine RBC (0-5) /HPF Urine WBC (0-5) /HPF Ur Epithelial Cells (<= Few) /HPF Ur Squamous Epith Cells (<= Few) Urine Bacteria (None Seen) /HPF Urine Culture Comments Urine Opiates Screen (NEGATIVE) Ur Oxycodone Screen (NEGATIVE) Urine Methadone Screen (NEGATIVE) Ur Propoxyphene Screen (NEGATIVE) Ur Barbiturates Screen (NEGATIVE) Ur Tricyclics Screen (NEGATIVE) Ur Phencyclidine Scrn (NEGATIVE) Ur Amphetamine Screen (NEGATIVE) U Methamphetamines Scrn (NEGATIVE) U Benzodiazepines Scrn (NEGATIVE) Urine Cocaine Screen (NEGATIVE) U Cannabinoids Screen (NEGATIVE) SARS-CoV-2 (PCR) NOT DETECTED 09/12/21 09/12/21 09/12/21 Range/Units 22:00 21:35 21:35 WBC (4.8-10.8) x10^3/uL RBC (4.20-5.40) 10^6/uL Hgb (12.0-16.0) g/dL Hct (37.0-47.0) % MCV (81.0-99.0) fL MCH (27.0-31.0) pg MCHC (32.0-36.0) g/dL RDW (12.0-15.0) % Plt Count (130-450) 10^3/uL MPV (7.9-10.8) fL Neut # (Auto) (1.5-6.6) 10^3/uL Lymph # (Auto) (1.5-3.5) 10^3/uL [place] # (Auto) (0.0-1.0) 10^3/uL Eos # (Auto) (0.0-0.7) 10^3/uL Baso # (Auto) (0.0-0.1) 10^3/uL Absolute Nucleated RBC x10^3/uL Nucleated RBC % /100WBC Bld Gas Analysis Time 2204 Sample Site LEFT RADIAL ABG pH 7.38 (7.35-7.45) ABG pCO2 45 (34-45) mmHg ABG pO2 71 L (80-100) mmHg ABG HCO3 26.2 H (22.0-26.0) mmol/L ABG Total CO2 27.6 (21.0-29.0) MMOL/L ABG O2 Saturation 94 (94-98) % ABG Base Excess 0.8 (-2.0-3.0) mmol/L [place] Test POSITIVE Room Air YES FiO2 21.00 Sodium 141 (135-145) mmol/L Potassium 3.9 (3.5-5.0) mmol/L Chloride 103 (101-111) mmol/L Carbon Dioxide 25 (21-32) mmol/L Anion Gap 13.0 (6-13) BUN 50 H (6-20) mg/dL Creatinine 2.2 H (0.4-1.0) mg/dL Estimated GFR (MDRD) 22 L (>89) Glucose 123 H (70-100) mg/dL Lactic Acid (0.5-2.2) mmol/L Calcium 9.6 (8.5-10.3) mg/dL Total Bilirubin 0.7 (0.2-1.0) mg/dL AST 11 (10-42) IU/L ALT < 10 L (10-60) IU/L Alkaline Phosphatase 99 (42-121) IU/L Troponin I High Sens 11.2 (2.3-14.8) ng/L Total Protein 7.9 (6.7-8.2) g/dL Albumin 3.8 (3.2-5.5) g/dL Globulin 4.1 (2.1-4.2) g/dL Albumin/Globulin Ratio 0.9 L (1.0-2.2) Urine Color Urine Clarity (CLEAR) Urine pH (5.0-7.5) PH Ur Specific [place] (1.002-1.030) Urine Protein (NEGATIVE) mg/dL Urine Glucose (UA) (NEGATIVE) mg/dL Urine Ketones (NEGATIVE) mg/dL Urine Occult Blood (NEGATIVE) Urine Nitrite (NEGATIVE) Urine Bilirubin (NEGATIVE) Urine Urobilinogen (NORMAL) E.U./dL Ur Leukocyte Esterase (NEGATIVE) Urine RBC (0-5) /HPF Urine WBC (0-5) /HPF Ur Epithelial Cells (<= Few) /HPF Ur Squamous Epith Cells (<= Few) Urine Bacteria (None Seen) /HPF Urine Culture Comments Urine Opiates Screen (NEGATIVE) Ur Oxycodone Screen (NEGATIVE) Urine Methadone Screen (NEGATIVE) Ur Propoxyphene Screen (NEGATIVE) Ur Barbiturates Screen (NEGATIVE) Ur Tricyclics Screen (NEGATIVE) Ur Phencyclidine Scrn (NEGATIVE) Ur Amphetamine Screen (NEGATIVE) U Methamphetamines Scrn (NEGATIVE) U Benzodiazepines Scrn (NEGATIVE) Urine Cocaine Screen (NEGATIVE) U Cannabinoids Screen (NEGATIVE) SARS-CoV-2 (PCR) 09/12/21 09/12/21 Range/Units 21:35 21:25 WBC 8.0 (4.8-10.8) x10^3/uL RBC 4.03 L (4.20-5.40) 10^6/uL Hgb 11.7 L (12.0-16.0) g/dL Hct 36.6 L (37.0-47.0) % MCV 90.8 (81.0-99.0) fL MCH 29.0 (27.0-31.0) pg MCHC 32.0 (32.0-36.0) g/dL RDW 13.3 (12.0-15.0) % Plt Count 284 (130-450) 10^3/uL MPV 9.7 (7.9-10.8) fL Neut # (Auto) 5.8 (1.5-6.6) 10^3/uL Lymph # (Auto) 1.2 L (1.5-3.5) 10^3/uL [place] # (Auto) 0.6 (0.0-1.0) 10^3/uL Eos # (Auto) 0.4 (0.0-0.7) 10^3/uL Baso # (Auto) 0.0 (0.0-0.1) 10^3/uL Absolute Nucleated RBC 0.00 x10^3/uL Nucleated RBC % 0.0 /100WBC Bld Gas Analysis Time Sample Site ABG pH (7.35-7.45) ABG pCO2 (34-45) mmHg ABG pO2 (80-100) mmHg ABG HCO3 (22.0-26.0) mmol/L ABG Total CO2 (21.0-29.0) MMOL/L ABG O2 Saturation (94-98) % ABG Base Excess (-2.0-3.0) mmol/L [place] Test Room Air FiO2 Sodium (135-145) mmol/L Potassium (3.5-5.0) mmol/L Chloride (101-111) mmol/L Carbon Dioxide (21-32) mmol/L Anion Gap (6-13) BUN (6-20) mg/dL Creatinine (0.4-1.0) mg/dL Estimated GFR (MDRD) (>89) Glucose (70-100) mg/dL Lactic Acid (0.5-2.2) mmol/L Calcium (8.5-10.3) mg/dL Total Bilirubin (0.2-1.0) mg/dL AST (10-42) IU/L ALT (10-60) IU/L Alkaline Phosphatase (42-121) IU/L Troponin I High Sens (2.3-14.8) ng/L Total Protein (6.7-8.2) g/dL Albumin (3.2-5.5) g/dL Globulin (2.1-4.2) g/dL Albumin/Globulin Ratio (1.0-2.2) Urine Color YELLOW Urine Clarity HAZY (CLEAR) Urine pH 6.0 (5.0-7.5) PH Ur Specific [place] 1.010 (1.002-1.030) Urine Protein TRACE (NEGATIVE) mg/dL Urine Glucose (UA) NEGATIVE (NEGATIVE) mg/dL Urine Ketones NEGATIVE (NEGATIVE) mg/dL Urine Occult Blood TRACE-INTA (NEGATIVE) Urine Nitrite NEGATIVE (NEGATIVE) Urine Bilirubin NEGATIVE (NEGATIVE) Urine Urobilinogen 0.2 (NORMAL) (NORMAL) E.U./dL Ur Leukocyte Esterase MODERATE H (NEGATIVE) Urine RBC 0-5 (0-5) /HPF Urine WBC >25 H (0-5) /HPF Ur Epithelial Cells RARE Transitional (<= Few) /HPF Ur Squamous Epith Cells RARE Squamous (<= Few) Urine Bacteria Few (None Seen) /HPF Urine Culture Comments INDICATED Urine Opiates Screen NEGATIVE (NEGATIVE) Ur Oxycodone Screen NEGATIVE (NEGATIVE) Urine Methadone Screen NEGATIVE (NEGATIVE) Ur Propoxyphene Screen NEGATIVE (NEGATIVE) Ur Barbiturates Screen NEGATIVE (NEGATIVE) Ur Tricyclics Screen NEGATIVE (NEGATIVE) Ur Phencyclidine Scrn NEGATIVE (NEGATIVE) Ur Amphetamine Screen NEGATIVE (NEGATIVE) U Methamphetamines Scrn NEGATIVE (NEGATIVE) U Benzodiazepines Scrn NEGATIVE (NEGATIVE) Urine Cocaine Screen NEGATIVE (NEGATIVE) U Cannabinoids Screen NEGATIVE (NEGATIVE) SARS-CoV-2 (PCR) ABX Reporting Has patient been on IV antibiotics over the past 48 hours?: Yes Assessment/Plan - Problem List (1) Altered mental status Impression: (09/14) Mental status has improved, though the patient is now agitated and confused with delusion, paranoia, and echolalia. The patient removed her own chen catheter and peripheral IVs. She was given a dose of IM haloperidol for agitation in the evening of 09/13. She is still unable to answer ROS. Physical exam is otherwise mostly unremarkable. Urine and blood cultures have shown no growth. The patient will continue to be treated for a UTI as a potential source of altered mental status, though psychological and other infectious causes will continue to be ruled out. (09/13) A 71 year old female who was treated for sepsis last month presents with altered mental status after experiencing many similar episodes in the past due to drug overdose and poorly optimized care at home. ROS cannot be obtained and there is no family present, though the patient's reportedly stated that she has similar episodes when she has a urinary tract infection. Physical exam is largely unremarkable other than the patient's inability to communicate verbally and persistent moaning. Neurological and drug/toxin etiologies ruled out by negative head CT, lack of focal neurological defecits, and negative tox screen. Patient was also unresponsive to naloxone administration. Urinalysis shows presence of white blood cells and leukocyte esterase, though epithelial a nd transitional cells were also present indicating a potentially contaminated specimen. Patient is unlikely to be have other sources of infection; white blood cell count is within normal limits and there is no other concerning source of infection. The patient is likely experiencing encephalopathy as a result of UTI and she is being treated with with ceftriaxone IV and being kept for observation overnight (09/12). Qualifiers: Altered mental status type: stupor Qualified Code(s): R40.1 - Stupor (2) UTI (urinary tract infection) Conclusion/Plan: (09/14) Patient is being treated with ceftriaxone for urinary tract infection. Urine cultures have shown no preliminary growth. Patient removed own chen catheter during a period of agitation. (09/13) Urinalysis revealed leukocyte esterase and WBCs, though sample may have been contaminated. UTI may be contributing to altered mental status. Patient has a history of chronic bladder infection is being treated with ceftriaxone as above. Urine cultures have been collected and antibiotics will be changed as needed. Qualifiers: Urinary tract infection type: acute cystitis Hematuria presence: without hematuria Qualified Code(s): N30.00 - Acute cystitis without hematuria (3) Acute kidney injury superimposed on CKD Conclusion/Plan: (09/14) BUN and creatinine are trending toward patient baseline and will continue to be monitored during stay. (09/13) Kidney injury likely a result of dehydration as a result inability to properly care for herself and may have been exacerbated by concurrent UTI. Patient will be given IV fluids and empiric antibiotics to treat her infection. (4) Diabetes mellitus type 2, diet-controlled Conclusion/Plan: (09/14) Continue low carb diet during stay. (09/13) Type 2 DM well controlled by diet. The patient's HbA1c has been in the m id 5% range for several years. Routine glucose monitoring and insulin use is not warranted during this visit. She will be provided with a low-carb diet for the duration of her stay. (5) Anemia Conclusion/Plan: (09/14) CBC will be rechecked today. Workup will be completed in the outpatient setting if necessary. (09/13) Patient has a history of mild anemia. Her hemoglobin and hematocrit levels are not concerning at this time, though they will be monitored during her stay. Qualifiers: Anemia type: unspecified type Qualified Code(s): D64.9 - Anemia, unspecified (6) HTN (hypertension) Conclusion/Plan: (09/14) Blood pressure will be addressed if patient becomes further hypertensive. (09/13) Patient is not currently taking home medications for hypertension. Sy stolics are elevated but do not need to be treated at this time. Qualifiers: Hypertension type: primary hypertension Qualified Code(s): I10 - Essential (primary) hypertension (7) Shingles vs unspecified dermatitis Conclusion/Plan: (09/14) Rash will be reexamined during dressing change and addressed in outpatient setting if necessary. (09/13) Crusted vesicular rash on the patient's left flank may be shingles vs unspecified dermatitis. The lesion was covered by a bandage and will be further addressed if indicated. Qualifiers: Herpes zoster complications: without complications Qualified Code(s): B02.9 - Zoster without complications (2) UTI (urinary tract infection) Qualifiers: Qualified Code(s): N30.00 - Acute cystitis without hematuria
[2021-09-13] MEDS: risperiDONE 1 MG TABLET PO SCH (23:07)
[2021-09-13] MEDS: METOPROLOL SUCCINATE 50 MG TABLET PO SCH (23:07)
[2021-09-13] MEDS: GABAPENTIN 100 MG CAPSULE PO SCH (23:07)
[2021-09-13] MEDS: ACETAMINOPHEN 325 MG TABLET PO PRN (23:24)
[2021-09-14] MEDS: SODIUM CHLORIDE FLUSH 0.9% 10 ML SYRINGE IVP SCH ×3 (03:24→16:02)
[2021-09-14] MEDS: LACTATED RINGERS 1,000 ML IV SCH ×2 (05:17→16:00)
[2021-09-14] MEDS: ACETAMINOPHEN 325 MG TABLET PO PRN ×3 (06:52→22:35)
[2021-09-14] MEDS: GABAPENTIN 100 MG CAPSULE PO SCH ×3 (06:53→21:31)
[2021-09-14 06:58] LABS: BASOPHILS % (AUTO) 0.6 %; EOSINOPHILS # (AUTO) 0.2 10^3/uL (0.0-0.7); EOSINOPHILS % (AUTO) 2.9 %; HCT - HEMATOCRIT 33.9 % (37.0-47.0); HGB - HEMOGLOBIN 10.9 g/dL (12.0-16.0); LYMPHOCYTES # (AUTO) 1.4 10^3/uL (1.5-3.5); LYMPHOCYTES % (AUTO) 19.3 %; MEAN CORPUSCULAR HEMOGLOBIN 28.8 pg (27.0-31.0); MEAN CORPUSCULAR HGB CONC 32.2 g/dL (32.0-36.0); MEAN CORPUSCULAR VOLUME 89.7 fL (81.0-99.0); MEAN PLATELET VOLUME 9.5 fL (7.9-10.8); MONOCYTES # (AUTO) 0.7 10^3/uL (0.0-1.0); MONOCYTES % (AUTO) 9.3 %; NEUTROPHILS # (AUTO) 4.7 10^3/uL (1.5-6.6); NEUTROPHILS % (AUTO) 67.6 %; PLT - PLATELET COUNT 253 10^3/uL (130-450); RED BLOOD COUNT 3.78 10^6/uL (4.20-5.40); RED CELL DISTRIBUTION WIDTH 13.3 % (12.0-15.0)
[2021-09-14 07:06] LABS: CALCIUM 9.8 mg/dL (8.5-10.3); CREATININE 1.6 mg/dL (0.4-1.0); POTASSIUM 3.5 mmol/L (3.5-5.0)
[2021-09-14] MEDS: DOCUSATE SODIUM 250 MG CAPSULE PO SCH (08:51)
[2021-09-14] MEDS: risperiDONE 1 MG TABLET PO SCH ×2 (08:51→21:31)
[2021-09-14] MEDS: cefTRIAXone 1 GM in SODIUM CHLORIDE 0.9% MINIBAG 100 ML IV SCH (08:51)
[2021-09-14] MEDS: SENNA 8.6 MG TABLET PO SCH (08:51)
[2021-09-14] MEDS: polyethylene glycoL 3350 17 GM PACKET PO SCH (08:52)
[2021-09-14] MEDS: ENOXAPARIN 30 MG/0.3 ML SYRINGE SUBQ SCH (08:52)
[2021-09-14] MEDS: METOPROLOL SUCCINATE 50 MG TABLET PO SCH (08:56)
[2021-09-14] MEDS: ONDANSETRON 4 MG/2 ML VIAL IVP PRN ×2 (13:33→20:24)
--- NOTE | 2021-09-14 18:32 | PROVIDER PROGRESS NOTE ---
Assessment/Plan - Problem List (1) Altered mental status Assessment/Plan: This is the patient's ninth admission/hospitalization over the past 12 months for the same presentation which is altered mental status when she is at home, but stable and adequate mental status when she is cared for at hospital or SNF or our swing bed. Unfortunately this patient is unable to care for herself. She does live with he r . She has so many hours of in-home providers provided by the [facility]. In spite of that, its been difficult to get her to be compliant with medication. In the past she would accidentally overdose with opioids. That issue resolved when opioids were no longer prescribed to her. She continues to return to this hospital with misuse of medications, confusion, obtundation. In the past these appeared to be from dehydration or UTI. Because of yesterday's somnolence followed by saadialia, there is more concerned that drug excessive intake is again the cause for her altered mental status with somnolence and confusion. Social work placed an APS report yesterday because of the frequent need to be hospitalized for altered mental status, and she lives with her who him self has stroke and dementia. It is not a safe discharge to return back to this location. The patient told me today that it is her who is in charge of filling her medication tray for the week. Perhaps pharmacy filled and pre-filled medication packs should be dispensed can be started for this patient. Now that she is alert and able to take a diet, will resume her usual home p.o. 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 Because of yesterday's somnolence followed by echolalia, there is more concern that drug excessive intake is the cause for her altered mental status with somnolence and confusion followed by echolalia Social work placed an APS report yesterday because of the frequent need to be hospitalized for altered mental status. She lives with her who himself has stroke and dementia. The patient told me today that it is her who is in charge of filling her medication tray for the week. It is not a safe discharge to return back to this location. Will ask for a SW eval regarding safe [facility] location. (3) UTI (urinary tract infection) Conclusion/Plan: Urinalysis revealed leukocyte esterase and WBCs, though sample may have been contaminated. UTI may be contributing to altered mental status. Patient has a history of chronic bladder infection is being treated with ceftriaxone as above. Urine cultures have been collected and antibiotics will be changed as needed. Qualifiers: Urinary tract infection type: acute cystitis Hematuria presence: without hematuria Qualified Code(s): N30.00 - Acute cystitis without hematuria (4) Acute kidney injury superimposed on CKD Conclusion/Plan: Kidney injury likely a result of dehydration as a result inability to properly care for herself and may have been exacerbated by concurrent UTI. Patient will be given IV fluids and empiric antibiotics to treat her infection. (5) Diabetes mellitus type 2, diet-controlled Conclusion/Plan: Type 2 DM well controlled by diet. The patient's HbA1c has been in the mid 5% range for several years. Routine glucose monitoring and insulin use is not warranted during this visit. She will be provided with a low-carb diet for the duration of her stay. (6) Anemia Conclusion/Plan: Patient has a history of mild anemia. Her hemoglobin and hematocrit levels are not concerning at this time, though they will be monitored during her stay. Qualifiers: Anemia type: unspecified type Qualified Code(s): D64.9 - Anemia, unspecified (7) HTN (hypertension) Conclusion/Plan: Patient was not taking home medications for hypertension because of obtundation. Systolics are elevated and her home meds will be resumed in addition to prn iv Hydralazine Qualifiers: Hypertension type: primary hypertension Qualified Code(s): I10 - Essential (primary) hypertension (8) Shingles Conclusion/Plan: Crusted vesicular rash on the patient's left flank is likely to be shingles. The lesion was covered by a bandage and will be further addressed if indicated. Qualifiers: Herpes zoster complications: without complications Qualified Code(s): B02.9 - Zoster without complications - Current Meds Current Meds: Current Medications Generic Name Dose Route Start Last Admin Trade Name Freq PRN Reason Stop Dose Admin Acetaminophen 650 mg 09/13/21 01:04 09/14/21 16:00 Acetaminophen 325 Mg Tablet PO 650 mg Q4HR PRN Administration Pain 1 to 4, or Fever Docusate Sodium 250 - 500 mg 09/14/21 09:00 09/14/21 08:51 Docusate Sodium 250 Mg Capsule PO 250 mg DAILY JARETT Administration Enoxaparin Sodium 30 mg 09/13/21 09:00 09/14/21 08:52 Enoxaparin 30 Mg/0.3 Ml Syringe SUBQ 30 mg DAILY JARETT Administration Gabapentin 100 mg 09/13/21 23:00 09/14/21 15:03 Gabapentin 100 Mg Capsule PO 100 mg TID JARETT Administration Lactated Ringer's 1,000 mls @ 100 mls/hr 09/13/21 02:00 09/14/21 16:00 Lr IV 100 mls/hr .Q10H JARETT Administration Ceftriaxone Sodium 1 gm/ 100 mls @ 200 mls/hr 09/13/21 12:00 09/14/21 09:25 Sodium Chloride IV Infused DAILY JARETT Infusion Metoprolol Succinate 50 mg 09/13/21 22:45 09/14/21 08:56 Metoprolol Succinate 50 Mg Tablet PO 50 mg DAILY JARETT Administration Ondansetron HCl 4 mg 09/13/21 01:04 09/14/21 13:33 Ondansetron 4 Mg/2 Ml Vial IVP 4 mg Q6HR PRN Administration Nausea / Vomiting Polyethylene Glycol 17 gm 09/14/21 09:00 09/14/21 08:52 Polyethylene Glycol 3350 17 Gm Packet PO 17 gm DAILY JARETT Administration Risperidone 1 mg 09/13/21 23:00 09/14/21 08:51 Risperidone 1 Mg Tablet PO 1 mg BID JARETT Administration Senna 8.6 - 17.2 mg 09/14/21 09:00 09/14/21 08:51 Senna 8.6 Mg Tablet PO 8.6 mg DAILY JARETT Administration Sodium Chloride 10 ml 09/13/21 01:04 09/13/21 01:58 Sodium Chloride Flush 0.9% 10 Ml Syringe IVP 20 ml PRN PRN Administration NEEDED PER PROVIDER ORDERS Sodium Chloride 10 ml 09/13/21 09:00 09/14/21 16:02 Sodium Chloride Flush 0.9% 10 Ml Syringe IVP Not Given 0100,0900,1700 JARETT - Lab Result Fish Bone Diagrams: 09/14/21 06:49 09/14/21 06:49 - Additional Planning My Orders: My Active Orders 09/14/21 Evaluate and Treat OT [OT] Routine Subjective - Subjective Patient Reports: Feeling Better, Other (Still feel "foggy") Objective Vital Signs: Vital Signs - 24 hr 09/13/21 09/13/21 09/14/21 21:05 22:42 00:00 Temperature 36.9 C Heart Rate [ 70 60 60 Brachial] Respiratory 24 20 Rate Blood Pressure 199/86 H 198/62 H 190/88 H [Right Brachial artery] Blood Pressure [Right Radial artery] O2 Saturation 95 98 09/14/21 09/14/21 09/14/21 06:50 10:50 13:35 Temperature 37.0 C 36.9 C Heart Rate [ 64 61 Brachial] Respiratory 21 18 19 Rate Blood Pressure 187/68 H [Right Brachial artery] Blood Pressure 165/62 H 145/78 H [Right Radial artery] O2 Saturation 97 98 94 09/14/21 15:30 Temperature 36.4 C L Heart Rate [ 63 Brachial] Respiratory 16 Rate Blood Pressure 185/76 H [Right Brachial artery] Blood Pressure [Right Radial artery] O2 Saturation 95 Oxygen O2 Source [Without Activity] Room air O2 Source Room air I&O (Last 24 Hrs): Intake and Output Totals x24h 09/12/21 09/13/21 09/14/21 23:59 23:59 23:59 Intake Total 4795.000 2140 Output Total 2925 350 Balance 3489.057 2772 General: Alert, Oriented x3 HEENT: Mucous membr. moist/pink, Other (Appears tired, speaking and eating normally) Neck: Supple Neuro: Alert, Other (Speech is flat and forced) Cardiovascular: No murmurs Respiratory: No respiratory distress Abdomen: No tenderness Extremities: No edema - Results Results: Laboratory Results WBC 7.0 x10^3/uL (4.8-10.8) 09/14/21 06:49 RBC 3.78 10^6/uL (4.20-5.40) L 09/14/21 06:49 Hgb 10.9 g/dL (12.0-16.0) L 09/14/21 06:49 Hct 33.9 % (37.0-47.0) L 09/14/21 06:49 MCV 89.7 fL (81.0-99.0) 09/14/21 06:49 MCH 28.8 pg (27.0-31.0) 09/14/21 06:49 MCHC 32.2 g/dL (32.0-36.0) 09/14/21 06:49 RDW 13.3 % (12.0-15.0) 09/14/21 06:49 Plt Count 253 10^3/uL (130-450) 09/14/21 06:49 MPV 9.5 fL (7.9-10.8) 09/14/21 06:49 Neut # (Auto) 4.7 10^3/uL (1.5-6.6) 09/14/21 06:49 Lymph # (Auto) 1.4 10^3/uL (1.5-3.5) L 09/14/21 06:49 Jessamine # (Auto) 0.7 10^3/uL (0.0-1.0) 09/14/21 06:49 Eos # (Auto) 0.2 10^3/uL (0.0-0.7) 09/14/21 06:49 Baso # (Auto) 0.0 10^3/uL (0.0-0.1) 09/14/21 06:49 Absolute Nucleated RBC 0.00 x10^3/uL 09/14/21 06:49 Nucleated RBC % 0.0 /100WBC 09/14/21 06:49 Bld Gas Analysis Time 220309/12/21 22:00 Sample Site LEFT RADIAL 09/12/21 22:00 ABG pH 7.38 (7.35-7.45) 09/12/21 22:00 ABG pCO2 45 mmHg (34-45) 09/12/21 22:00 ABG pO2 71 mmHg (80-100) L 09/12/21 22:00 ABG HCO3 26.2 mmol/L (22.0-26.0) H 09/12/21 22:00 ABG Total CO2 27.6 MMOL/L (21.0-29.0) 09/12/21 22:00 ABG O2 Saturation 94 % (94-98) 09/12/21 22:00 ABG Base Excess 0.8 mmol/L (-2.0-3.0) 09/12/21 22:00 Thien Test POSITIVE 09/12/21 22:00 Room Air YES 09/12/21 22:00 FiO2 21.00 09/12/21 22:00 Sodium 142 mmol/L (135-145) 09/14/21 06:49 Potassium 3.5 mmol/L (3.5-5.0) 09/14/21 06:49 Chloride 106 mmol/L (101-111) 09/14/21 06:49 Carbon Dioxide 24 mmol/L (21-32) 09/14/21 06:49 Anion Gap 12.0 (6-13) 09/14/21 06:49 BUN 32 mg/dL (6-20) H 09/14/21 06:49 Creatinine 1.6 mg/dL (0.4-1.0) H 09/14/21 06:49 Estimated GFR (MDRD) 32 (>89) L 09/14/21 06:49 Glucose 103 mg/dL (70-100) H 09/14/21 06:49 Lactic Acid 1.4 mmol/L (0.5-2.2) 09/12/21 22:31 Calcium 9.8 mg/dL (8.5-10.3) 09/14/21 06:49 Total Bilirubin 0.7 mg/dL (0.2-1.0) 09/12/21 21:35 AST 11 IU/L (10-42) 09/12/21 21:35 ALT < 10 IU/L (10-60) L 09/12/21 21:35 Alkaline Phosphatase 99 IU/L (42-121) 09/12/21 21:35 Troponin I High Sens 11.2 ng/L (2.3-14.8) 09/12/21 21:35 Total Protein 7.9 g/dL (6.7-8.2) 09/12/21 21:35 Albumin 3.8 g/dL (3.2-5.5) 09/12/21 21:35 Globulin 4.1 g/dL (2.1-4.2) 09/12/21 21:35 Albumin/Globulin Ratio 0.9 (1.0-2.2) L 09/12/21 21:35 Urine Color YELLOW 09/12/21 21:25 Urine Clarity HAZY (CLEAR) 09/12/21 21:25 Urine pH 6.0 PH (5.0-7.5) 09/12/21 21:25 Ur Specific [place] 1.010 (1.002-1.030) 09/12/21 21:25 Urine Protein TRACE mg/dL (NEGATIVE) 09/12/21 21:25 Urine Glucose (UA) NEGATIVE mg/dL (NEGATIVE) 09/12/21 21:25 Urine Ketones NEGATIVE mg/dL (NEGATIVE) 09/12/21 21:25 Urine Occult Blood TRACE-INTA (NEGATIVE) 09/12/21 21:25 Urine Nitrite NEGATIVE (NEGATIVE) 09/12/21 21:25 Urine Bilirubin NEGATIVE (NEGATIVE) 09/12/21 21:25 Urine Urobilinogen 0.2 (NORMAL) E.U./dL (NORMAL) 09/12/21 21:25 Ur Leukocyte Esterase MODERATE (NEGATIVE) H 09/12/21 21:25 Urine RBC 0-5 /HPF (0-5) 09/12/21 21:25 Urine WBC >25 /HPF (0-5) H 09/12/21 21:25 Ur Epithelial Cells RARE Transitional /HPF (<= Few) 09/12/21 21:25 Ur Squamous Epith Cells RARE Squamous (<= Few) 09/12/21 21:25 Urine Bacteria Few /HPF (None Seen) 09/12/21 21:25 Urine Culture Comments INDICATED 09/12/21 21:25 Urine Opiates Screen NEGATIVE (NEGATIVE) 09/12/21 21:25 Ur Oxycodone Screen NEGATIVE (NEGATIVE) 09/12/21 21:25 Urine Methadone Screen NEGATIVE (NEGATIVE) 09/12/21 21:25 Ur Propoxyphene Screen NEGATIVE (NEGATIVE) 09/12/21 21:25 Ur Barbiturates Screen NEGATIVE (NEGATIVE) 09/12/21 21:25 Ur Tricyclics Screen NEGATIVE (NEGATIVE) 09/12/21 21:25 Ur Phencyclidine Scrn NEGATIVE (NEGATIVE) 09/12/21 21:25 Ur Amphetamine Screen NEGATIVE (NEGATIVE) 09/12/21 21:25 U Methamphetamines Scrn NEGATIVE (NEGATIVE) 09/12/21 21:25 U Benzodiazepines Scrn NEGATIVE (NEGATIVE) 09/12/21 21:25 Urine Cocaine Screen NEGATIVE (NEGATIVE) 09/12/21 21:25 U Cannabinoids Screen NEGATIVE (NEGATIVE) 09/12/21 21:25 SARS-CoV-2 (PCR) NOT DETECTED 09/13/21 00:25 - Procedures Procedures: Procedures COLONOSCOPY (09/09/13) DRAINAGE OF BLADDER WITH DRAINAGE DEVICE, VIA OPENING (11/25/19)
[2021-09-14] MEDS ORDERED: polyethylene glycoL 3350 17 GM PACKET PO PRN (18:45)
[2021-09-14] MEDS ORDERED: MIN OIL/DIMETHICON/COCONUT OIL 92 GM TUBE TOP PRN (18:45)
[2021-09-14] MEDS ORDERED: hydrALAZINE INJ 20 MG/ML VIAL IVP PRN (18:48)
[2021-09-14] MEDS ORDERED: hydrALAZINE INJ 20 MG/ML VIAL IVP ONE (18:48)
[2021-09-14] MEDS ORDERED: PROCHLORPERAZINE 10 MG/2 ML VIAL IVP PRN (19:40)
[2021-09-14] MEDS: CARBOXYMETHYLCELLULOSE OPHTH DROPS EACHEYE PRN ×2 (20:23→22:15)
[2021-09-14] MEDS: SODIUM CHLORIDE FLUSH 0.9% 10 ML SYRINGE IVP PRN ×2 (20:24→22:45)
[2021-09-14] MEDS: tiZANidine 4 MG TABLET PO SCH (21:30)
[2021-09-14] MEDS: gemfibroziL 600 MG TABLET PO SCH (21:31)
[2021-09-14] MEDS: BUPRENORPHINE/NALOXONE 8-2 MG TAB SL SCH (22:07)
--- NOTE | 2021-09-14 23:53 | XRAY Report ---
PROCEDURE: Abdomen 1 View X-Ray INDICATIONS: emesis x 5 today TECHNIQUE: One view of the abdomen acquired. COMPARISON: CT abdomen pelvis 06/21/2021. FINDINGS: Surgical changes and devices: None. Bowel: Bowel gas pattern appears within normal limits. Soft tissues: No suspicious abdominal calcifications. Bones: No suspicious bony lesions. IMPRESSION: 1. Bowel gas pattern appears within normal limits without definite evidence of obstruction. Reviewed by: Alpesh Marcos MD on 09/14/2021 11:52 PM PDT Approved by: Alpesh Marcos MD on 09/14/2021 11:52 PM PDT Station ID: [id number]
[2021-09-15] MEDS: LACTATED RINGERS 1,000 ML IV SCH ×2 (01:46→05:21)
[2021-09-15] MEDS: SODIUM CHLORIDE FLUSH 0.9% 10 ML SYRINGE IVP SCH ×2 (02:25→07:45)
[2021-09-15 05:14] LABS: CALCIUM 9.5 mg/dL (8.5-10.3); CREATININE 1.8 mg/dL (0.4-1.0); POTASSIUM 3.9 mmol/L (3.5-5.0)
[2021-09-15] MEDS: GABAPENTIN 100 MG CAPSULE PO SCH ×3 (06:55→21:50)
[2021-09-15] MEDS: PANTOPRAZOLE 40 MG TABLET PO SCH ×2 (06:56→07:18)
[2021-09-15] MEDS: LEVOTHYROXINE 25 MCG TABLET PO SCH (06:56)
[2021-09-15] MEDS: tiZANidine 4 MG TABLET PO SCH ×3 (06:56→21:49)
[2021-09-15] MEDS: BUPRENORPHINE/NALOXONE 8-2 MG TAB SL SCH ×3 (07:23→21:49)
[2021-09-15] MEDS: CARBOXYMETHYLCELLULOSE OPHTH DROPS EACHEYE PRN (07:45)
[2021-09-15] MEDS: polyethylene glycoL 3350 17 GM PACKET PO SCH (09:18)
[2021-09-15] MEDS: SENNA 8.6 MG TABLET PO SCH (09:24)
[2021-09-15] MEDS: ASPIRIN EC 81 MG TABLET PO SCH (09:24)
[2021-09-15] MEDS: DOCUSATE SODIUM 250 MG CAPSULE PO SCH (09:24)
[2021-09-15] MEDS: risperiDONE 1 MG TABLET PO SCH ×2 (09:24→21:49)
[2021-09-15] MEDS: CHOLECALCIFEROL 25 MCG TABLET PO SCH (09:24)
[2021-09-15] MEDS: gemfibroziL 600 MG TABLET PO SCH ×2 (09:24→21:49)
[2021-09-15] MEDS: VENLAFAXINE ER 75 MG CAPSULE PO SCH (09:24)
[2021-09-15] MEDS: METOPROLOL SUCCINATE 50 MG TABLET PO SCH (09:25)
[2021-09-15] MEDS: ENOXAPARIN 30 MG/0.3 ML SYRINGE SUBQ SCH (09:27)
[2021-09-15] MEDS: ACETAMINOPHEN 325 MG TABLET PO PRN ×2 (10:22→21:50)
[2021-09-15] MEDS: LORazepam 0.5 MG TABLET PO PRN (10:35)
[2021-09-15] MEDS: cefTRIAXone 1 GM in SODIUM CHLORIDE 0.9% MINIBAG 100 ML IV SCH (11:08)
--- NOTE | 2021-09-15 15:43 | PROVIDER PROGRESS NOTE ---
Assessment/Plan - Problem List (1) Altered mental status Assessment/Plan: This is the patient's ninth admission/hospitalization over the past 12 months for the same presentation which is altered mental status which happens when she is at home, but she is stable with adequate mental status when she is cared for at hospital or SNF or our swing bed She lives with her and is unable to care for herself. She has had some in-home providers provided by the [facility]. In spite of that, its been difficult to get her to be compliant with medications as prescribed. (In the past she would overdose with opioids. That issue resolved when opioids were no longer prescribed to her). She continues to return to this hospital with misuse of medications causing confusion, obtundation. These presentations also appeared to be from dehydration or UTI. Because of yesterday's somnolence followed by echolalia, there is more concerned that excessive intake of her psych drug is now the cause for her altered mental status (somnolence, confusion then echolalia). Social work placed an APS report because of the frequent need to be hospitalized for altered mental status caused by drug intake. The patient told me today that it is her who is in charge of filling her medication tray for the week, then he brings her the entire tray which she can apparently take as she wishes. It would not be a safe discharge to return back to this home living situation, as evidenced by recurrent re-admissions. Perhaps starting with pharmacy pre- filled medication packs should be dispensed for this patient, but she also needs supervision in how many she takes. Will ask for a SW help regarding safe [facility] location. (2) UTI (urinary tract infection) Conclusion/Plan: Urinalysis revealed leukocyte esterase and WBCs, though sample may have been contaminated. Thus, a UTI again may be contributing to altered mental status. She has a history of chronic bladder infections She is being treated with ceftriaxone for the abn U/A. Urine cultures have been collected and antibiotics will be changed as needed. Qualifiers: Urinary tract infection type: acute cystitis Hematuria presence: without hematuria Qualified Code(s): N30.00 - Acute cystitis without hematuria (3) Acute kidney injury superimposed on CKD Conclusion/Plan: Acute kidney injury is likely a result of dehydration, as a result inability to properly care for herself or be cared for, and may have been exacerbated by a concurrent UTI. Patient will be given IV fluids and empiric antibiotics to treat her infection. (4) Diabetes mellitus type 2, diet-controlled Conclusion/Plan: Her type 2 DM is well controlled by diet. The patient's HbA1c has been in the mid 5's range for several years. Routine glucose monitoring and insulin use is not warranted during this visit. She will be provided with a low-carb diet for the duration of her stay. (5) Anemia Conclusion/Plan: Patient has a history of mild anemia. Her hemoglobin and hematocrit levels are not concerning at this time, though they will be monitored during her stay. Qualifiers: Anemia type: unspecified type Qualified Code(s): D64.9 - Anemia, unspecified (6) HTN (hypertension) Conclusion/Plan: Patient was not taking home medications for hypertension because of obtundation. Systolic BP was elevated and her home meds will be resumed, now that she is awake and can swallow, in addition to prn iv Hydralazine (7) Shingles Conclusion/Plan: Crusted vesicular rash on the patient's left flank is likely to be shingles. The lesion was covered by a bandage and will be further addressed if indicated. (8) Bipolar disorder Conclusion/Plan: Now that she is alert and able to take a diet, will resume her usual home p.o. meds (9) Echolalia Conclusion/Plan: Resolved Echolalia is a global MANAGER RELOCATION abnormality, not a focal one and can occur when psych meds are taken in excess, which is the suspected culprit here.. Because of yesterday's somnolence followed by kalpana, there is more concern that excessive drug intake is the cause for her altered mental status with somnolence and confusion followed by saadialia Social work has placed an APS report because of the frequent need to be hospitalized for altered mental status. She lives with her who is in charge of filling her medication tray for the week, but she opens the tray and takes the meds by herself. It is not a safe discharge to return back to this location. Will ask for a SW help regarding safe [facility] location. - Current Meds Current Meds: Current Medications Generic Name Dose Route Start Last Admin Trade Name Freq PRN Reason Stop Dose Admin Acetaminophen 650 mg 09/13/21 01:04 09/15/21 10:22 Acetaminophen 325 Mg Tablet PO 650 mg Q4HR PRN Administration Pain 1 to 4, or Fever Aspirin 81 mg 09/15/21 09:00 09/15/21 09:24 Aspirin Ec 81 Mg Tablet PO 81 mg DAILY JARETT Administration Buprenorphine HCl 1 tab 09/14/21 22:00 09/15/21 15:02 Buprenorphine/Naloxone 8-2 Mg Tab SL 1 tab TID JARETT Administration Carboxymethylcellulose 1 drops 09/14/21 19:22 09/15/21 07:45 Carboxymethylcellulose Ophth Drops EACHEYE 1 drops PRN PRN Administration Dry Eye Cholecalciferol 25 mcg 09/15/21 09:00 09/15/21 09:24 Cholecalciferol 25 Mcg Tablet PO 25 mcg DAILY JARETT Administration Docusate Sodium 250 - 500 mg 09/14/21 09:00 09/15/21 09:24 Docusate Sodium 250 Mg Capsule PO 250 mg DAILY JARETT Administration Enoxaparin Sodium 30 mg 09/13/21 09:00 09/15/21 09:27 Enoxaparin 30 Mg/0.3 Ml Syringe SUBQ 30 mg DAILY JARETT Administration Gabapentin 100 mg 09/13/21 23:00 09/15/21 13:33 Gabapentin 100 Mg Capsule PO 100 mg TID JARETT Administration Gemfibrozil 600 mg 09/14/21 21:00 09/15/21 09:24 Gemfibrozil 600 Mg Tablet PO 600 mg BID JARETT Administration Levothyroxine Sodium 50 mcg 09/15/21 07:00 09/15/21 06:56 Levothyroxine 25 Mcg Tablet PO 50 mcg QDAC JARETT Administration Lorazepam 0.5 mg 09/14/21 18:45 09/15/21 10:35 Lorazepam 0.5 Mg Tablet PO 0.5 mg BID PRN Administration Anxiety Metoprolol Succinate 50 mg 09/13/21 22:45 09/15/21 09:25 Metoprolol Succinate 50 Mg Tablet PO 50 mg DAILY JARETT Administration Ondansetron HCl 4 mg 09/13/21 01:04 09/14/21 20:24 Ondansetron 4 Mg/2 Ml Vial IVP 4 mg Q6HR PRN Administration Nausea / Vomiting Pantoprazole Sodium 40 mg 09/15/21 07:00 09/15/21 07:18 Pantoprazole 40 Mg Tablet PO Not Given QDAC JARETT Polyethylene Glycol 17 gm 09/14/21 09:00 09/15/21 09:18 Polyethylene Glycol 3350 17 Gm Packet PO 17 gm DAILY JARETT Administration Prochlorperazine Edisylate 10 mg 09/14/21 19:40 09/14/21 22:45 Prochlorperazine 10 Mg/2 Ml Vial IVP 10 mg Q6HR PRN Administration Nausea / Vomiting Risperidone 1 mg 09/13/21 23:00 09/15/21 09:24 Risperidone 1 Mg Tablet PO 1 mg BID JARETT Administration Senna 8.6 - 17.2 mg 09/14/21 09:00 09/15/21 09:24 Senna 8.6 Mg Tablet PO 8.6 mg DAILY JARETT Administration Tizanidine HCl 2 mg 09/14/21 22:00 09/15/21 13:34 Tizanidine 4 Mg Tablet PO 2 mg TID JARETT Administration Venlafaxine HCl 150 mg 09/15/21 09:00 09/15/21 09:24 Venlafaxine Er 75 Mg Capsule PO 150 mg DAILY JARETT Administration - Lab Result Fish Bone Diagrams: 09/14/21 06:49 09/15/21 04:36 - Additional Planning My Orders: My Active Orders 09/14/21 18:45 LORazepam [Ativan] 0.5 mg PO BID PRN Min Oil/Dimeth/Coconut Oil Crm [Cavilon] 1 applic TOP PRN PRN Zinc Oxide 20% Oint [Zinc Oxide] 1 applic TOP PRN PRN polyethylene glycoL 3350 [Miralax] 17 gm PO DAILY PRN 09/14/21 21:00 gemfibroziL [Lopid] 600 mg PO BID 09/14/21 22:00 Buprenorphine HCl/Naloxone HCl [Suboxone 8-2 mg Tab] 1 tab SL TID tiZANidine [Zanaflex] 2 mg PO TID 09/15/21 Evaluate and Treat PT [PT] Routine 09/15/21 07:00 Levothyroxine [Synthroid] 50 mcg PO QDAC Pantoprazole [Protonix] 40 mg PO QDAC 09/15/21 09:00 Aspirin EC [Ecotrin] 81 mg PO DAILY Cholecalciferol [Vitamin D3] 25 mcg PO DAILY Venlafaxine ER [Effexor ER] 150 mg PO DAILY 09/15/21 11:11 IV DC [IV Discontinuation] [RC] .ONCE 09/15/21 Lunch DIET [Low Sodium Diet] [DIET] Subjective - Subjective Patient Reports: Feeling Better (More awake, conversing, but says she is still fatigued.) Objective Vital Signs: Vital Signs - 24 hr 09/14/21 09/14/21 09/14/21 19:00 19:30 19:40 Temperature 36.6 C Heart Rate [ 52 L Brachial] Heart Rate [ Supine] Respiratory 20 Rate Blood Pressure 153/69 H Blood Pressure 153/69 H [Right Brachial artery] Blood Pressure [Right Radial artery] Blood Pressure [Supine] O2 Saturation 94 09/15/21 09/15/21 09/15/21 00:30 05:00 07:28 Temperature 36.5 C 36.0 C L Heart Rate [ 64 60 57 L Brachial] Heart Rate [ Supine] Respiratory 18 19 Rate Blood Pressure Blood Pressure 185/64 H [Right Brachial artery] Blood Pressure 197/70 H 183/52 H [Right Radial artery] Blood Pressure [Supine] O2 Saturation 93 93 09/15/21 09/15/21 09/15/21 07:35 07:40 07:45 Temperature Heart Rate [ 65 68 68 Brachial] Heart Rate [ Supine] Respiratory Rate Blood Pressure 143/62 H Blood Pressure 177/57 H 162/64 H 143/62 H [Right Brachial artery] Blood Pressure [Right Radial artery] Blood Pressure [Supine] O2 Saturation 09/15/21 09/15/21 09/15/21 08:00 08:15 09:22 Temperature Heart Rate [ 76 76 76 Brachial] Heart Rate [ Supine] Respiratory Rate Blood Pressure Blood Pressure 158/52 H 172/62 H 149/51 H [Right Brachial artery] Blood Pressure [Right Radial artery] Blood Pressure [Supine] O2 Saturation 09/15/21 14:18 Temperature Heart Rate [ Brachial] Heart Rate [ 88 Supine] Respiratory Rate Blood Pressure Blood Pressure [Right Brachial artery] Blood Pressure [Right Radial artery] Blood Pressure 147/63 H [Supine] O2 Saturation Oxygen O2 Source [Without Activity] Room air O2 Source Room air I&O (Last 24 Hrs): Intake and Output Totals x24h 09/13/21 09/14/21 09/15/21 23:59 23:59 23:59 Intake Total 4795.000 2840 2511.66 Output Total 2925 1875 4125 Balance 1870.000 965 -1613.34 General: Alert, Oriented x3 (But poor memory) HEENT: Atraumatic, Mucous membr. moist/pink Neck: Supple, No JVD Neuro: Alert, Non Focal Cardiovascular: Regular rate Abdomen: Normal bowel sounds, Soft Extremities: No edema, No tenderness/swelling - Results Results: Laboratory Results WBC 7.0 x10^3/uL (4.8-10.8) 09/14/21 06:49 RBC 3.78 10^6/uL (4.20-5.40) L 09/14/21 06:49 Hgb 10.9 g/dL (12.0-16.0) L 09/14/21 06:49 Hct 33.9 % (37.0-47.0) L 09/14/21 06:49 MCV 89.7 fL (81.0-99.0) 09/14/21 06:49 MCH 28.8 pg (27.0-31.0) 09/14/21 06:49 MCHC 32.2 g/dL (32.0-36.0) 09/14/21 06:49 RDW 13.3 % (12.0-15.0) 09/14/21 06:49 Plt Count 253 10^3/uL (130-450) 09/14/21 06:49 MPV 9.5 fL (7.9-10.8) 09/14/21 06:49 Neut # (Auto) 4.7 10^3/uL (1.5-6.6) 09/14/21 06:49 Lymph # (Auto) 1.4 10^3/uL (1.5-3.5) L 09/14/21 06:49 [place] # (Auto) 0.7 10^3/uL (0.0-1.0) 09/14/21 06:49 Eos # (Auto) 0.2 10^3/uL (0.0-0.7) 09/14/21 06:49 Baso # (Auto) 0.0 10^3/uL (0.0-0.1) 09/14/21 06:49 Absolute Nucleated RBC 0.00 x10^3/uL 09/14/21 06:49 Nucleated RBC % 0.0 /100WBC 09/14/21 06:49 Bld Gas Analysis Time 220309/12/21 22:00 Sample Site LEFT RADIAL 09/12/21 22:00 ABG pH 7.38 (7.35-7.45) 09/12/21 22:00 ABG pCO2 45 mmHg (34-45) 09/12/21 22:00 ABG pO2 71 mmHg (80-100) L 09/12/21 22:00 ABG HCO3 26.2 mmol/L (22.0-26.0) H 09/12/21 22:00 ABG Total CO2 27.6 MMOL/L (21.0-29.0) 09/12/21 22:00 ABG O2 Saturation 94 % (94-98) 09/12/21 22:00 ABG Base Excess 0.8 mmol/L (-2.0-3.0) 09/12/21 22:00 Thien Test POSITIVE 09/12/21 22:00 Room Air YES 09/12/21 22:00 FiO2 21.00 09/12/21 22:00 Sodium 143 mmol/L (135-145) 09/15/21 04:36 Potassium 3.9 mmol/L (3.5-5.0) 09/15/21 04:36 Chloride 104 mmol/L (101-111) 09/15/21 04:36 Carbon Dioxide 27 mmol/L (21-32) 09/15/21 04:36 Anion Gap 12.0 (6-13) 09/15/21 04:36 BUN 25 mg/dL (6-20) H 09/15/21 04:36 Creatinine 1.8 mg/dL (0.4-1.0) H 09/15/21 04:36 Estimated GFR (MDRD) 28 (>89) L 09/15/21 04:36 Glucose 120 mg/dL (70-100) H 09/15/21 04:36 Lactic Acid 1.4 mmol/L (0.5-2.2) 09/12/21 22:31 Calcium 9.5 mg/dL (8.5-10.3) 09/15/21 04:36 Total Bilirubin 0.7 mg/dL (0.2-1.0) 09/12/21 21:35 AST 11 IU/L (10-42) 09/12/21 21:35 ALT < 10 IU/L (10-60) L 09/12/21 21: Alkaline Phosphatase 99 IU/L (42-121) 09/12/21 21: Troponin I High Sens 11.2 ng/L (2.3-14.8) 09/12/21 21:35 Total Protein 7.9 g/dL (6.7-8.2) 09/12/21: Albumin 3.8 g/dL (3.2-5.5) 09/12/21: Globulin 4.1 g/dL (2.1-4.2) 09/12/21 21: Albumin/Globulin Ratio 0.9 (1.0-2.2) L 09/12/21 21: Urine Color YELLOW 09/12/21 21: Urine Clarity HAZY (CLEAR) 09/12/21 21: Urine pH 6.0 PH (5.0-7.5) 09/12/21 21: Ur Specific [place] 1.010 (1.002-1.030) 09/12/21 21: Urine Protein TRACE mg/dL (NEGATIVE) 09/12/21 21: Urine Glucose (UA) NEGATIVE mg/dL (NEGATIVE) 09/12/21 21: Urine Ketones NEGATIVE mg/dL (NEGATIVE) 09/12/21 21: Urine Occult Blood TRACE-INTA (NEGATIVE) 09/12/21 21: Urine Nitrite NEGATIVE (NEGATIVE) 09/12/21 21: Urine Bilirubin NEGATIVE (NEGATIVE) 09/12/21 21: Urine Urobilinogen 0.2 (NORMAL) E.U./dL (NORMAL) 09/12/21 21: Ur Leukocyte Esterase MODERATE (NEGATIVE) H 09/12/21 21: Urine RBC 0-5 /HPF (0-5) 09/12/21 21: Urine WBC >25 /HPF (0-5) H 09/12/21 21:25 Ur Epithelial Cells RARE Transitional /HPF (<= Few) 09/12/21 21: Ur Squamous Epith Cells RARE Squamous (<= Few) 09/12/21 21:25 Urine Bacteria Few /HPF (None Seen) 09/12/21 21:25 Urine Culture Comments INDICATED 09/12/21 21: Urine Opiates Screen NEGATIVE (NEGATIVE) 09/12/21 21:25 Ur Oxycodone Screen NEGATIVE (NEGATIVE) 09/12/21 21:25 Urine Methadone Screen NEGATIVE (NEGATIVE) 09/12/21 21:25 Ur Propoxyphene Screen NEGATIVE (NEGATIVE) 09/12/21 21:25 Ur Barbiturates Screen NEGATIVE (NEGATIVE) 09/12/21 21:25 Ur Tricyclics Screen NEGATIVE (NEGATIVE) 09/12/21 21:25 Ur Phencyclidine Scrn NEGATIVE (NEGATIVE) 09/12/21 21:25 Ur Amphetamine Screen NEGATIVE (NEGATIVE) 09/12/21 21:25 U Methamphetamines Scrn NEGATIVE (NEGATIVE) 09/12/21 21:25 U Benzodiazepines Scrn NEGATIVE (NEGATIVE) 09/12/21 21:25 Urine Cocaine Screen NEGATIVE (NEGATIVE) 09/12/21 21:25 U Cannabinoids Screen NEGATIVE (NEGATIVE) 09/12/21 21:25 SARS-CoV-2 (PCR) NOT DETECTED 09/13/21 00:25 - Procedures Procedures: Procedures COLONOSCOPY (01/09/13) DRAINAGE OF BLADDER WITH DRAINAGE DEVICE, VIA OPENING (11/25/19)
[2021-09-16] MEDS: tiZANidine 4 MG TABLET PO SCH ×3 (05:25→20:58)
[2021-09-16] MEDS: GABAPENTIN 100 MG CAPSULE PO SCH ×3 (05:25→20:56)
[2021-09-16] MEDS: ZINC OXIDE 20% OINT 30 GM TUBE TOP PRN (05:29)
[2021-09-16] MEDS: BUPRENORPHINE/NALOXONE 8-2 MG TAB SL SCH ×3 (05:53→21:59)
[2021-09-16] MEDS: LEVOTHYROXINE 25 MCG TABLET PO SCH (05:54)
[2021-09-16] MEDS: gemfibroziL 600 MG TABLET PO SCH ×2 (08:57→20:55)
[2021-09-16] MEDS: polyethylene glycoL 3350 17 GM PACKET PO SCH (08:57)
[2021-09-16] MEDS: VENLAFAXINE ER 75 MG CAPSULE PO SCH (08:58)
[2021-09-16] MEDS: risperiDONE 1 MG TABLET PO SCH ×2 (08:58→20:55)
[2021-09-16] MEDS: DOCUSATE SODIUM 250 MG CAPSULE PO SCH (08:58)
[2021-09-16] MEDS: ASPIRIN EC 81 MG TABLET PO SCH (09:00)
[2021-09-16] MEDS: CHOLECALCIFEROL 25 MCG TABLET PO SCH (09:00)
[2021-09-16] MEDS: METOPROLOL SUCCINATE 50 MG TABLET PO SCH (09:00)
[2021-09-16] MEDS: ENOXAPARIN 30 MG/0.3 ML SYRINGE SUBQ SCH (09:01)
[2021-09-16] MEDS: SENNA 8.6 MG TABLET PO SCH (09:04)
[2021-09-16 10:15] LABS: POTASSIUM 4.3 mmol/L (3.5-5.0)
[2021-09-16] MEDS: ACETAMINOPHEN 325 MG TABLET PO PRN (12:04)
--- NOTE | 2021-09-16 13:20 | PROVIDER PROGRESS NOTE ---
Assessment/Plan - Problem List (1) Altered mental status Assessment/Plan: Resolved. She is back to her baseline. A cognitive eval was done by OT today and she scored 25/30, indicating mildly cognitively impaired. (2) At risk for unsafe behavior Conclusion/Plan: This is the patient's ninth admission/hospitalization over the past 12 months for the same presentation which is altered mental status which happens when she is at home, but she is stable with adequate mental status when she is cared for at hospital or SNF or our swing bed She lives with her and is unable to care for herself. She has had some in-home providers provided by [facility]. In spite of that, its been difficult to get her to be compliant with medications as prescribed. (In the past she would overdose with opioids. That issue resolved when opioids were no longer prescribed to her, however she is still on Suboxone). She continues to return to this hospital after misuse of medications causing confusion, obtundation. These presentations also appeared to be from dehydration or UTI. Because of yesterday's somnolence followed by kalpana, there is more concerned that excessive intake of her psych drug is now the cause for her altered mental status (somnolence, confusion then echolalia). Social work placed an APS report because of the frequent need to be hospitalized for altered mental status caused by drug intake. The patient told me today that it is her who is in charge of filling her medication tray for the week, then he brings her the entire tray which she can apparently take as she wishes. It would not be a safe discharge to return back to this home living situation, as evidenced by recurrent re-admissions. The has stated (per SPIKE Ramos) and her caregivers have stated (per [facility] HUAN Perez), that she cannot be taken car of safely at [facility]. Perhaps using pharmacy pre-filled "bubble" medication packs should be dispensed for this patient, but she also needs supervision in how many she takes. Will ask for a help regarding safe [facility] location. Per , [facility] advised she be made an Inpatient (3) UTI (urinary tract infection) Urinalysis revealed leukocyte esterase and WBCs, though sample may have been contaminated. Thus, a UTI again may be contributing to altered mental status. She has a history of chronic bladder infections She is being treated with ceftriaxone for the abn U/A. Urine cultures have been collected and antibiotics will be changed as needed. (4) Acute kidney injury superimposed on CKD Conclusion/Plan: Acute kidney injury is likely a result of dehydration, as a result of inability to properly care for herself or be cared for, and may have been exacerbated by a concurrent UTI. Patient was ordered IV fluids and empiric antibiotics to treat her infection. Her creat has plateaued at 1.8-2. Will, avoid nephrotoxins and watch BMP daily (5) Diabetes mellitus type 2, diet-controlled Conclusion/Plan: Her type 2 DM is well controlled by diet. The patient's HbA1c has been in the mid 5's range for several years. Routine glucose monitoring and insulin use is not warranted during this visit. She will be provided with a low-carb diet for the duration of her stay. (6) Anemia Conclusion/Plan: Patient has a history of mild anemia. Her hemoglobin and hematocrit levels are not concerning at this time, though they will be monitored during her stay. Qualifiers: Anemia type: unspecified type Qualified Code(s): D64.9 - Anemia, unspecified (7) HTN (hypertension) Conclusion/Plan: Patient was not taking home medications for hypertension because of obtundation. Systolic BP was elevated and her home meds have been resumed, now that she is awake and can swallow, in addition to prn iv Hydralazine (8) Shingles Conclusion/Plan: Crusted, painful vesicular rash on the patient's left flank is likely to be shingles. The lesion was covered by a bandage and will be further addressed if indicated. (9) Bipolar disorder Conclusion/Plan: Now that she is alert and able to take a diet, will resume her usual home p.o. meds (10) Echolalia Conclusion/Plan: Resolved Echolalia is a global [employer] abnormality, not a focal one and can occur when psych meds are taken in excess, which is the suspected culprit here.. Because of yesterday's somnolence followed by echolalia, there is more concern that excessive drug intake was the cause for her altered mental status with somnolence and confusion followed by echolalia Social work has placed an APS report because of the frequent need to be hospitalized for altered mental status. She lives with her who is in charge of filling her medication tray for the week, but she opens the tray and takes the meds by herself. It is not a safe discharge to return back to this location. Will ask for a SW help regarding safe [facility] location. - Current Meds Current Meds: Current Medications Generic Name Dose Route Start Last Admin Trade Name Freq PRN Reason Stop Dose Admin Acetaminophen 650 mg 09/13/21 01:04 09/16/21 12:04 Acetaminophen 325 Mg Tablet PO 650 mg Q4HR PRN Administration Pain 1 to 4, or Fever Aspirin 81 mg 09/15/21 09:00 09/16/21 09:00 Aspirin Ec 81 Mg Tablet PO 81 mg DAILY JARETT Administration Buprenorphine HCl 1 tab 09/14/21 22:00 09/16/21 13:11 Buprenorphine/Naloxone 8-2 Mg Tab SL 1 tab TID JARETT Administration Carboxymethylcellulose 1 drops 09/14/21 19:22 09/15/21 07:45 Carboxymethylcellulose Ophth Drops EACHEYE 1 drops PRN PRN Administration Dry Eye Cholecalciferol 25 mcg 09/15/21 09:00 09/16/21 09:00 Cholecalciferol 25 Mcg Tablet PO 25 mcg DAILY JARETT Administration Docusate Sodium 250 - 500 mg 09/14/21 09:00 09/16/21 08:58 Docusate Sodium 250 Mg Capsule PO 250 mg DAILY JARETT Administration Enoxaparin Sodium 30 mg 09/13/21 09:00 09/16/21 09:01 Enoxaparin 30 Mg/0.3 Ml Syringe SUBQ 30 mg DAILY JARETT Administration Gabapentin 100 mg 09/13/21 23:00 09/16/21 13:11 Gabapentin 100 Mg Capsule PO 100 mg TID JARETT Administration Gemfibrozil 600 mg 09/14/21 21:00 09/16/21 08:57 Gemfibrozil 600 Mg Tablet PO 600 mg BID JARETT Administration Levothyroxine Sodium 50 mcg 09/15/21 07:00 09/16/21 05:54 Levothyroxine 25 Mcg Tablet PO 50 mcg QDAC JARETT Administration Lorazepam 0.5 mg 09/14/21 18:45 09/15/21 10:35 Lorazepam 0.5 Mg Tablet PO 0.5 mg BID PRN Administration Anxiety Metoprolol Succinate 50 mg 09/13/21 22:45 09/16/21 09:00 Metoprolol Succinate 50 Mg Tablet PO 50 mg DAILY JARETT Administration Multi-Ingredient Ointment 1 applic 09/14/21 18:45 09/16/21 05:29 Zinc Oxide 20% Oint 30 Gm Tube TOP 1 applic PRN PRN Administration Skin Care Ondansetron HCl 4 mg 09/13/21 01:04 09/14/21 20:24 Ondansetron 4 Mg/2 Ml Vial IVP 4 mg Q6HR PRN Administration Nausea / Vomiting Pantoprazole Sodium 40 mg 09/15/21 07:00 09/15/21 07:18 Pantoprazole 40 Mg Tablet PO Not Given QDAC JARETT Polyethylene Glycol 17 gm 09/14/21 09:00 09/16/21 08:57 Polyethylene Glycol 3350 17 Gm Packet PO 17 gm DAILY JARETT Administration Prochlorperazine Edisylate 10 mg 09/14/21 19:40 09/14/21 22:45 Prochlorperazine 10 Mg/2 Ml Vial IVP 10 mg Q6HR PRN Administration Nausea / Vomiting Risperidone 1 mg 09/13/21 23:00 09/16/21 08:58 Risperidone 1 Mg Tablet PO 1 mg BID JARETT Administration Senna 8.6 - 17.2 mg 09/14/21 09:00 09/16/21 09:04 Senna 8.6 Mg Tablet PO 17.2 mg DAILY JARETT Administration Tizanidine HCl 2 mg 09/14/21 22:00 09/16/21 13:10 Tizanidine 4 Mg Tablet PO 2 mg TID JARETT Administration Venlafaxine HCl 150 mg 09/15/21 09:00 09/16/21 08:58 Venlafaxine Er 75 Mg Capsule PO 150 mg DAILY JARETT Administration - Lab Result Fish Bone Diagrams: 09/14/21 06:49 09/16/21 09:55 - Additional Planning My Orders: My Active Orders 09/17/21 08:00 Multivitamin W/Minerals [Theragran M] 1 tab PO DAILYWM Subjective - Subjective Patient Reports: No Complaints Objective Vital Signs: Vital Signs - 24 hr 09/15/21 09/15/21 09/15/21 14:18 16:25 17:32 Temperature 36.4 C L Heart Rate [ 62 63 Brachial] Heart Rate [ 88 Supine] Respiratory 16 Rate Blood Pressure 111/44 L 139/56 H [Right Brachial artery] Blood Pressure [Right Radial artery] Blood Pressure 147/63 H [Supine] O2 Saturation 95 09/15/21 09/16/21 09/16/21 20:10 04:55 07:04 Temperature 36.5 C 36.2 C L Heart Rate [ 68 54 L 62 Brachial] Heart Rate [ Supine] Respiratory 16 16 16 Rate Blood Pressure 124/50 L 132/50 H [Right Brachial artery] Blood Pressure 131/58 H [Right Radial artery] Blood Pressure [Supine] O2 Saturation 94 95 94 09/16/21 13:08 Temperature 36.6 C Heart Rate [ 58 L Brachial] Heart Rate [ Supine] Respiratory 16 Rate Blood Pressure 140/53 H [Right Brachial artery] Blood Pressure [Right Radial artery] Blood Pressure [Supine] O2 Saturation 96 Oxygen O2 Source [Without Activity] Room air O2 Source Room air I&O (Last 24 Hrs): Intake and Output Totals x24h 09/14/21 09/15/21 09/16/21 23:59 23:59 23:59 Intake Total 2840 2951.66 1270 Output Total 1875 4575 900 Balance 965 -1623.34 370 General: Alert, Oriented x3 HEENT: Mucous membr. moist/pink Neck: Supple Neuro: Alert, Non Focal Cardiovascular: Regular rate Respiratory: No respiratory distress Abdomen: Soft Extremities: No edema - Results Results: Laboratory Results WBC 7.0 x10^3/uL (4.8-10.8) 09/14/21 06:49 RBC 3.78 10^6/uL (4.20-5.40) L 09/14/21 06:49 Hgb 10.9 g/dL (12.0-16.0) L 09/14/21 06:49 Hct 33.9 % (37.0-47.0) L 09/14/21 06:49 MCV 89.7 fL (81.0-99.0) 09/14/21 06:49 MCH 28.8 pg (27.0-31.0) 09/14/21 06:49 MCHC 32.2 g/dL (32.0-36.0) 09/14/21 06:49 RDW 13.3 % (12.0-15.0) 09/14/21 06:49 Plt Count 253 10^3/uL (130-450) 09/14/21 06:49 MPV 9.5 fL (7.9-10.8) 09/14/21 06:49 Neut # (Auto) 4.7 10^3/uL (1.5-6.6) 09/14/21 06:49 Lymph # (Auto) 1.4 10^3/uL (1.5-3.5) L 09/14/21 06:49 Slope # (Auto) 0.7 10^3/uL (0.0-1.0) 09/14/21 06:49 Eos # (Auto) 0.2 10^3/uL (0.0-0.7) 09/14/21 06:49 Baso # (Auto) 0.0 10^3/uL (0.0-0.1) 09/14/21 06:49 Absolute Nucleated RBC 0.00 x10^3/uL 09/14/21 06:49 Nucleated RBC % 0.0 /100WBC 09/14/21 06:49 Bld Gas Analysis Time 220309/12/21 22:00 Sample Site LEFT RADIAL 09/12/21 22:00 ABG pH 7.38 (7.35-7.45) 09/12/21 22:00 ABG pCO2 45 mmHg (34-45) 09/12/21 22:00 ABG pO2 71 mmHg (80-100) L 09/12/21 22:00 ABG HCO3 26.2 mmol/L (22.0-26.0) H 09/12/21 22:00 ABG Total CO2 27.6 MMOL/L (21.0-29.0) 09/12/21 22:00 ABG O2 Saturation 94 % (94-98) 09/12/21 22:00 ABG Base Excess 0.8 mmol/L (-2.0-3.0) 09/12/21 22:00 Thien Test POSITIVE 09/12/21 22:00 Room Air YES 09/12/21 22:00 FiO2 21.00 09/12/21 22:00 Sodium 140 mmol/L (135-145) 09/16/21 09:55 Potassium 4.3 mmol/L (3.5-5.0) 09/16/21 09:55 Chloride 104 mmol/L (101-111) 09/16/21 09:55 Carbon Dioxide 25 mmol/L (21-32) 09/16/21 09:55 Anion Gap 11.0 (6-13) 09/16/21 09:55 BUN 25 mg/dL (6-20) H 09/16/21 09:55 Creatinine 2.0 mg/dL (0.4-1.0) H 09/16/21 09:55 Estimated GFR (MDRD) 25 (>89) L 09/16/21 09:55 Glucose 164 mg/dL (70-100) H 09/16/21 09:55 Lactic Acid 1.4 mmol/L (0.5-2.2) 09/12/21 22:31 Calcium 9.0 mg/dL (8.5-10.3) 09/16/21 09:55 Total Bilirubin 0.7 mg/dL (0.2-1.0) 09/12/21 21:35 AST 11 IU/L (10-42) 09/12/21 21:35 ALT < 10 IU/L (10-60) L 09/12/21 21:35 Alkaline Phosphatase 99 IU/L (42-121) 09/12/21 21:35 Troponin I High Sens 11.2 ng/L (2.3-14.8) 09/12/21 21:35 Total Protein 7.9 g/dL (6.7-8.2) 09/12/21 21:35 Albumin 3.8 g/dL (3.2-5.5) 09/12/21 21:35 Globulin 4.1 g/dL (2.1-4.2) 09/12/21 21:35 Albumin/Globulin Ratio 0.9 (1.0-2.2) L 09/12/21 21:35 Urine Color YELLOW 09/12/21 21:25 Urine Clarity HAZY (CLEAR) 09/12/21 21:25 Urine pH 6.0 PH (5.0-7.5) 09/12/21 21:25 Ur Specific [place] 1.010 (1.002-1.030) 09/12/21 21:25 Urine Protein TRACE mg/dL (NEGATIVE) 09/12/21 21:25 Urine Glucose (UA) NEGATIVE mg/dL (NEGATIVE) 09/12/21 21:25 Urine Ketones NEGATIVE mg/dL (NEGATIVE) 09/12/21 21:25 Urine Occult Blood TRACE-INTA (NEGATIVE) 09/12/21 21:25 Urine Nitrite NEGATIVE (NEGATIVE) 09/12/21 21:25 Urine Bilirubin NEGATIVE (NEGATIVE) 09/12/21 21:25 Urine Urobilinogen 0.2 (NORMAL) E.U./dL (NORMAL) 09/12/21 21:25 Ur Leukocyte Esterase MODERATE (NEGATIVE) H 09/12/21 21:25 Urine RBC 0-5 /HPF (0-5) 09/12/21 21:25 Urine WBC >25 /HPF (0-5) H 09/12/21 21:25 Ur Epithelial Cells RARE Transitional /HPF (<= Few) 09/12/21 21:25 Ur Squamous Epith Cells RARE Squamous (<= Few) 09/12/21 21:25 Urine Bacteria Few /HPF (None Seen) 09/12/21 21:25 Urine Culture Comments INDICATED 09/12/21 21:25 Urine Opiates Screen NEGATIVE (NEGATIVE) 09/12/21 21:25 Ur Oxycodone Screen NEGATIVE (NEGATIVE) 09/12/21 21:25 Urine Methadone Screen NEGATIVE (NEGATIVE) 09/12/21 21:25 Ur Propoxyphene Screen NEGATIVE (NEGATIVE) 09/12/21 21:25 Ur Barbiturates Screen NEGATIVE (NEGATIVE) 09/12/21 21:25 Ur Tricyclics Screen NEGATIVE (NEGATIVE) 09/12/21 21:25 Ur Phencyclidine Scrn NEGATIVE (NEGATIVE) 09/12/21 21:25 Ur Amphetamine Screen NEGATIVE (NEGATIVE) 09/12/21 21:25 U Methamphetamines Scrn NEGATIVE (NEGATIVE) 09/12/21 21:25 U Benzodiazepines Scrn NEGATIVE (NEGATIVE) 09/12/21 21:25 Urine Cocaine Screen NEGATIVE (NEGATIVE) 09/12/21 21:25 U Cannabinoids Screen NEGATIVE (NEGATIVE) 09/12/21 21:25 SARS-CoV-2 (PCR) NOT DETECTED 09/13/21 00:25 - Procedures Procedures: Procedures COLONOSCOPY (01/09/13) DRAINAGE OF BLADDER WITH DRAINAGE DEVICE, VIA OPENING (11/25/19)
[2021-09-17] MEDS: ACETAMINOPHEN 325 MG TABLET PO PRN (00:28)
[2021-09-17 05:50] LABS: CREATININE 2.1 mg/dL (0.4-1.0); POTASSIUM 4.6 mmol/L (3.5-5.0)
[2021-09-17] MEDS: PANTOPRAZOLE 40 MG TABLET PO SCH (06:05)
[2021-09-17] MEDS: tiZANidine 4 MG TABLET PO SCH ×3 (06:05→22:23)
[2021-09-17] MEDS: BUPRENORPHINE/NALOXONE 8-2 MG TAB SL SCH ×3 (06:05→23:51)
[2021-09-17] MEDS: GABAPENTIN 100 MG CAPSULE PO SCH ×3 (06:05→22:24)
[2021-09-17] MEDS: LEVOTHYROXINE 25 MCG TABLET PO SCH (06:05)
[2021-09-17] MEDS: SENNA 8.6 MG TABLET PO SCH (10:26)
[2021-09-17] MEDS: polyethylene glycoL 3350 17 GM PACKET PO SCH (10:26)
[2021-09-17] MEDS: ASPIRIN EC 81 MG TABLET PO SCH (10:27)
[2021-09-17] MEDS: VENLAFAXINE ER 75 MG CAPSULE PO SCH (10:27)
[2021-09-17] MEDS: risperiDONE 1 MG TABLET PO SCH ×2 (10:28→22:24)
[2021-09-17] MEDS: CHOLECALCIFEROL 25 MCG TABLET PO SCH (10:28)
[2021-09-17] MEDS: gemfibroziL 600 MG TABLET PO SCH ×2 (10:28→22:23)
[2021-09-17] MEDS: MULTIVITAMIN W/MINERALS TABLET PO SCH (10:28)
[2021-09-17] MEDS: DOCUSATE SODIUM 250 MG CAPSULE PO SCH (10:31)
[2021-09-17] MEDS: METOPROLOL SUCCINATE 50 MG TABLET PO SCH (10:31)
--- NOTE | 2021-09-17 12:24 | PROVIDER PROGRESS NOTE ---
Assessment/Plan - Problem List (1) Altered mental status Assessment/Plan: Resolved. She is back to her baseline since yesterday A cognitive eval was done by OT yesterday and she scored 25/30, indicating mild ly cognitively impaired. (2) At risk for unsafe behavior Conclusion/Plan: This is the patient's ninth admission/hospitalization over the past 12 months for the same presentation which is altered mental status which happens when she is at home, but she is stable with adequate mental status when she is cared for at hospital or SNF or our swing bed She lives with her and is unable to care for herself. She has had some in-home providers provided by the [facility]. In spite of that, its been difficult to get her to be compliant with medications as prescribed. (In the past she would overdose with opioids. That issue resolved when opioids were no longer prescribed to her, however she is still on Suboxone). She continues to return to this hospital after misuse of medications causing confusion, obtundation. These presentations also appeared to be from dehydration or UTI. Because of yesterday's somnolence followed by kalpana, there is more concerned that excessive intake of her psych drug is now the cause for her altered mental status (somnolence, confusion then echolalia). Social work placed an APS report because of the frequent need to be hospitalized for altered mental status caused by drug intake. The patient told me today that it is her who is in charge of filling her medication tray for the week, then he brings her the entire tray which she can apparently take as she wishes. It would not be a safe discharge to return back to this home living situation, as evidenced by recurrent re-admissions. The has stated (per SPIKE Ramos) and her caregivers have stated (per [facility] HUAN Perez), that she cannot be taken car of safely at home. 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 Perhaps using pharmacy pre-filled "bubble" medication packs should be dispensed for this patient, but she also needs supervision in how many she takes. Per , [facility] advised she be made an Inpatient. The patient had a long meeting with Rachel Jonas yesterday and has agreed to be placed in LTAC "to prove that she does not need nursing care" (3) Bacteriurea Urinalysis revealed leukocyte esterase and WBCs, though sample may have been contaminated. Thus, a UTI was considered to again be contributing to her altered mental status at admission. She has a history of chronic bladder infections She was started on empiric ceftriaxone. The urine culture has grown no bacteria, thus her antibiotic has been stopped. (4) Acute kidney injury superimposed on CKD Conclusion/Plan: Acute kidney injury is likely a result of dehydration, since she has inability to properly care for herself or be cared for at home. Patient was ordered IV fluids and empiric antibiotics to treat her infection. Her creat has plateaued at 1.8-2.1. Will avoid nephrotoxins and watch BMP intermittently. (5) Diabetes mellitus type 2, diet-controlled Conclusion/Plan: Her type 2 DM is well controlled by diet. The patient's HbA1c has been in the mid 5's range for several years. Routine glucose monitoring and insulin use is not warranted during this visit. She is getting a low-carb diet while here. (6) Anemia Conclusion/Plan: Patient has a history of mild anemia. Her hemoglobin and hematocrit levels are not concerning at this time, though they will be monitored during her stay. Qualifiers: Anemia type: unspecified type Qualified Code(s): D64.9 - Anemia, unspecified (7) HTN (hypertension) Conclusion/Plan: Patient was not taking home medications for hypertension because of obtundation. Systolic BP was elevated at admission and her home meds have been resumed, now that she is awake and can swallow, in addition to prn iv Hydralazine (8) Shingles Conclusion/Plan: Crusted, painful vesicular rash on the patient's left flank is likely to be shingles. The lesion was covered by a bandage and will be further addressed if indicated. (9) Bipolar disorder Conclusion/Plan: Now that she is alert and able to take a diet, will resume her usual home p.o. meds (10) Echolalia Conclusion/Plan: Resolved Echolalia is a global DATABASE COORDINATOR abnormality, not a focal one and can occur when psych meds are taken in excess, which is the suspected culprit here.. Because of yesterday's somnolence followed by echolalia, there is more concern that excessive drug intake was the cause for her altered mental status with somnolence and confusion followed by echolalia Social work has placed an APS report because of the frequent need to be ho spitalized for altered mental status. She lives with her who is in charge of filling her medication tray for the week, but she opens the tray and takes the meds by herself. It is not a safe discharge to return back to this location. We have asked for SW help regarding safe [facility] location. - Current Meds Current Meds: Current Medications Generic Name Dose Route Start Last Admin Trade Name Radha PRN Reason Stop Dose Admin Acetaminophen 650 mg 09/13/21 01:04 09/17/21 00:28 Acetaminophen 325 Mg Tablet PO 650 mg Q4HR PRN Administration Pain 1 to 4, or Fever Aspirin 81 mg 09/15/21 09:00 09/17/21 10:27 Aspirin Ec 81 Mg Tablet PO 81 mg DAILY JARETT Administration Buprenorphine HCl 1 tab 09/14/21 22:00 09/17/21 06:05 Buprenorphine/Naloxone 8-2 Mg Tab SL 1 tab TID JARETT Administration Carboxymethylcellulose 1 drops 09/14/21 19:22 09/15/21 07:45 Carboxymethylcellulose Ophth Drops EACHEYE 1 drops PRN PRN Administration Dry Eye Cholecalciferol 25 mcg 09/15/21 09:00 09/17/21 10:28 Cholecalciferol 25 Mcg Tablet PO 25 mcg DAILY JARETT Administration Docusate Sodium 250 - 500 mg 09/14/21 09:00 09/17/21 10:31 Docusate Sodium 250 Mg Capsule PO 250 mg DAILY JARETT Administration Gabapentin 100 mg 09/13/21 23:00 09/17/21 06:05 Gabapentin 100 Mg Capsule PO 100 mg TID JARETT Administration Gemfibrozil 600 mg 09/14/21 21:00 09/17/21 10:28 Gemfibrozil 600 Mg Tablet PO 600 mg BID JARETT Administration Levothyroxine Sodium 50 mcg 09/15/21 07:00 09/17/21 06:05 Levothyroxine 25 Mcg Tablet PO 50 mcg QDAC JARETT Administration Lorazepam 0.5 mg 09/14/21 18:45 09/15/21 10:35 Lorazepam 0.5 Mg Tablet PO 0.5 mg BID PRN Administration Anxiety Metoprolol Succinate 50 mg 09/13/21 22:45 09/17/21 10:31 Metoprolol Succinate 50 Mg Tablet PO Not Given DAILY JARETT Multi-Ingredient Ointment 1 applic 09/14/21 18:45 09/16/21 05:29 Zinc Oxide 20% Oint 30 Gm Tube TOP 1 applic PRN PRN Administration Skin Care Multivitamins/Minerals 1 tab 09/17/21 08:00 09/17/21 10:28 Multivitamin W/Minerals Tablet PO 1 tab DAILYWM JARETT Administration Ondansetron HCl 4 mg 09/13/21 01:04 09/14/21 20:24 Ondansetron 4 Mg/2 Ml Vial IVP 4 mg Q6HR PRN Administration Nausea / Vomiting Pantoprazole Sodium 40 mg 09/15/21 07:00 09/17/21 06:05 Pantoprazole 40 Mg Tablet PO 40 mg QDAC JARETT Administration Polyethylene Glycol 17 gm 09/14/21 09:00 09/17/21 10:26 Polyethylene Glycol 3350 17 Gm Packet PO 17 gm DAILY JARETT Administration Prochlorperazine Edisylate 10 mg 09/14/21 19:40 09/14/21 22:45 Prochlorperazine 10 Mg/2 Ml Vial IVP 10 mg Q6HR PRN Administration Nausea / Vomiting Risperidone 1 mg 09/13/21 23:00 09/17/21 10:28 Risperidone 1 Mg Tablet PO 1 mg BID JARETT Administration Senna 8.6 - 17.2 mg 09/14/21 09:00 09/17/21 10:26 Senna 8.6 Mg Tablet PO 17.2 mg DAILY JARETT Administration Tizanidine HCl 2 mg 09/14/21 22:00 09/17/21 06:05 Tizanidine 4 Mg Tablet PO 2 mg TID JARETT Administration Venlafaxine HCl 150 mg 09/15/21 09:00 09/17/21 10:27 Venlafaxine Er 75 Mg Capsule PO 150 mg DAILY JARETT Administration - Lab Result Fish Bone Diagrams: 09/14/21 06:49 09/18/21 04:27 - Additional Planning My Orders: My Active Orders 09/17/21 08:00 Multivitamin W/Minerals [Theragran M] 1 tab PO DAILYWM 09/18/21 05:00 BMP - BASIC METABOLIC PANEL [CHEM] DAILYLAB 09/19/21 05:00 BMP - BASIC METABOLIC PANEL [CHEM] DAILYLAB 09/20/21 05:00 BMP - BASIC METABOLIC PANEL [CHEM] DAILYLAB Subjective - Subjective Patient Reports: No Complaints Nursing Reports: Other (She is very talkative and collegial with her nursing staff) Objective Vital Signs: Vital Signs - 24 hr 09/16/21 09/16/21 09/17/21 13:08 15:42 00:45 Temperature 36.6 C 36.6 C 36.6 C Heart Rate [ 58 L 65 60 Brachial] Respiratory 16 16 18 Rate Blood Pressure 140/53 H 139/55 H 124/56 L [Right Brachial artery] O2 Saturation 96 96 93 09/17/21 06:29 Temperature 36.4 C L Heart Rate [ 53 L Brachial] Respiratory 16 Rate Blood Pressure 139/50 H [Right Brachial artery] O2 Saturation 94 Oxygen O2 Source [Without Activity] Room air O2 Source Room air I&O (Last 24 Hrs): Intake and Output Totals x24h 09/15/21 09/16/21 09/17/21 23:59 23:59 23:59 Intake Total 2951.66 1778 1000 Output Total 4575 1950 400 Balance -1623.34 -172 600 General: Alert HEENT: Mucous membr. moist/pink Neck: Supple, No JVD Neuro: Alert, Non Focal Cardiovascular: No murmurs Respiratory: No respiratory distress Abdomen: Soft Extremities: No edema - Results Results: Laboratory Results WBC 7.0 x10^3/uL (4.8-10.8) 09/14/21 06:49 RBC 3.78 10^6/uL (4.20-5.40) L 09/14/21 06:49 Hgb 10.9 g/dL (12.0-16.0) L 09/14/21 06:49 Hct 33.9 % (37.0-47.0) L 09/14/21 06:49 MCV 89.7 fL (81.0-99.0) 09/14/21 06:49 MCH 28.8 pg (27.0-31.0) 09/14/21 06:49 MCHC 32.2 g/dL (32.0-36.0) 09/14/21 06:49 RDW 13.3 % (12.0-15.0) 09/14/21 06:49 Plt Count 253 10^3/uL (130-450) 09/14/21 06:49 MPV 9.5 fL (7.9-10.8) 09/14/21 06:49 Neut # (Auto) 4.7 10^3/uL (1.5-6.6) 09/14/21 06:49 Lymph # (Auto) 1.4 10^3/uL (1.5-3.5) L 09/14/21 06:49 Ashe # (Auto) 0.7 10^3/uL (0.0-1.0) 09/14/21 06:49 Eos # (Auto) 0.2 10^3/uL (0.0-0.7) 09/14/21 06:49 Baso # (Auto) 0.0 10^3/uL (0.0-0.1) 09/14/21 06:49 Absolute Nucleated RBC 0.00 x10^3/uL 09/14/21 06:49 Nucleated RBC % 0.0 /100WBC 09/14/21 06:49 Bld Gas Analysis Time 220309/12/21 22:00 Sample Site LEFT RADIAL 09/12/21 22:00 ABG pH 7.38 (7.35-7.45) 09/12/21 22:00 ABG pCO2 45 mmHg (34-45) 09/12/21 22:00 ABG pO2 71 mmHg (80-100) L 09/12/21 22:00 ABG HCO3 26.2 mmol/L (22.0-26.0) H 09/12/21 22:00 ABG Total CO2 27.6 MMOL/L (21.0-29.0) 09/12/21 22:00 ABG O2 Saturation 94 % (94-98) 09/12/21 22:00 ABG Base Excess 0.8 mmol/L (-2.0-3.0) 09/12/21 22:00 Thien Test POSITIVE 09/12/21 22:00 Room Air YES 09/12/21 22:00 FiO2 21.00 09/12/21 22:00 Sodium 136 mmol/L (135-145) 09/17/21 04:52 Potassium 4.6 mmol/L (3.5-5.0) 09/17/21 04:52 Chloride 100 mmol/L (101-111) L 09/17/21 04:52 Carbon Dioxide 27 mmol/L (21-32) 09/17/21 04:52 Anion Gap 9.0 (6-13) 09/17/21 04:52 BUN 30 mg/dL (6-20) H 09/17/21 04:52 Creatinine 2.1 mg/dL (0.4-1.0) H 09/17/21 04:52 Estimated GFR (MDRD) 23 (>89) L 09/17/21 04:52 Glucose 111 mg/dL (70-100) H 09/17/21 04:52 Lactic Acid 1.4 mmol/L (0.5-2.2) 09/12/21 22:31 Calcium 9.0 mg/dL (8.5-10.3) 09/17/21 04:52 Total Bilirubin 0.7 mg/dL (0.2-1.0) 09/12/21 21:35 AST 11 IU/L (10-42) 09/12/21 21:35 ALT < 10 IU/L (10-60) L 09/12/21 21:35 Alkaline Phosphatase 99 IU/L (42-121) 09/12/21 21:35 Troponin I High Sens 11.2 ng/L (2.3-14.8) 09/12/21 21:35 Total Protein 7.9 g/dL (6.7-8.2) 09/12/21 21:35 Albumin 3.8 g/dL (3.2-5.5) 09/12/21 21:35 Globulin 4.1 g/dL (2.1-4.2) 09/12/21 21:35 Albumin/Globulin Ratio 0.9 (1.0-2.2) L 09/12/21 21:35 Urine Color YELLOW 09/12/21 21:25 Urine Clarity HAZY (CLEAR) 09/12/21 21:25 Urine pH 6.0 PH (5.0-7.5) 09/12/21 21:25 Ur Specific [place] 1.010 (1.002-1.030) 09/12/21 21:25 Urine Protein TRACE mg/dL (NEGATIVE) 09/12/21 21:25 Urine Glucose (UA) NEGATIVE mg/dL (NEGATIVE) 09/12/21 21:25 Urine Ketones NEGATIVE mg/dL (NEGATIVE) 09/12/21 21:25 Urine Occult Blood TRACE-INTA (NEGATIVE) 09/12/21 21:25 Urine Nitrite NEGATIVE (NEGATIVE) 09/12/21 21:25 Urine Bilirubin NEGATIVE (NEGATIVE) 09/12/21 21:25 Urine Urobilinogen 0.2 (NORMAL) E.U./dL (NORMAL) 09/12/21 21:25 Ur Leukocyte Esterase MODERATE (NEGATIVE) H 09/12/21 21:25 Urine RBC 0-5 /HPF (0-5) 09/12/21 21:25 Urine WBC >25 /HPF (0-5) H 09/12/21 21:25 Ur Epithelial Cells RARE Transitional /HPF (<= Few) 09/12/21 21:25 Ur Squamous Epith Cells RARE Squamous (<= Few) 09/12/21 21:25 Urine Bacteria Few /HPF (None Seen) 09/12/21 21:25 Urine Culture Comments INDICATED 09/12/21 21:25 Urine Opiates Screen NEGATIVE (NEGATIVE) 09/12/21 21:25 Ur Oxycodone Screen NEGATIVE (NEGATIVE) 09/12/21 21:25 Urine Methadone Screen NEGATIVE (NEGATIVE) 09/12/21 21:25 Ur Propoxyphene Screen NEGATIVE (NEGATIVE) 09/12/21 21:25 Ur Barbiturates Screen NEGATIVE (NEGATIVE) 09/12/21 21:25 Ur Tricyclics Screen NEGATIVE (NEGATIVE) 09/12/21 21:25 Ur Phencyclidine Scrn NEGATIVE (NEGATIVE) 09/12/21 21:25 Ur Amphetamine Screen NEGATIVE (NEGATIVE) 09/12/21 21:25 U Methamphetamines Scrn NEGATIVE (NEGATIVE) 09/12/21 21:25 U Benzodiazepines Scrn NEGATIVE (NEGATIVE) 09/12/21 21:25 Urine Cocaine Screen NEGATIVE (NEGATIVE) 09/12/21 21:25 U Cannabinoids Screen NEGATIVE (NEGATIVE) 09/12/21 21:25 SARS-CoV-2 (PCR) NOT DETECTED 09/13/21 00:25 - Procedures Procedures: Procedures COLONOSCOPY (01/09/13) DRAINAGE OF BLADDER WITH DRAINAGE DEVICE, VIA OPENING (11/25/19)
[2021-09-18] MEDS: LEVOTHYROXINE 25 MCG TABLET PO SCH (05:55)
[2021-09-18] MEDS: GABAPENTIN 100 MG CAPSULE PO SCH ×3 (05:56→21:15)
[2021-09-18] MEDS: PANTOPRAZOLE 40 MG TABLET PO SCH (05:56)
[2021-09-18] MEDS: tiZANidine 4 MG TABLET PO SCH ×3 (05:56→21:15)
[2021-09-18 06:26] LABS: CALCIUM 9.2 mg/dL (8.5-10.3); CREATININE 1.9 mg/dL (0.4-1.0); POTASSIUM 4.7 mmol/L (3.5-5.0)
[2021-09-18] MEDS: BUPRENORPHINE/NALOXONE 8-2 MG TAB SL SCH ×3 (07:12→21:15)
[2021-09-18] MEDS: MULTIVITAMIN W/MINERALS TABLET PO SCH (10:43)
[2021-09-18] MEDS: gemfibroziL 600 MG TABLET PO SCH ×2 (10:43→21:16)
[2021-09-18] MEDS: polyethylene glycoL 3350 17 GM PACKET PO SCH (10:43)
[2021-09-18] MEDS: SENNA 8.6 MG TABLET PO SCH (10:44)
[2021-09-18] MEDS: CHOLECALCIFEROL 25 MCG TABLET PO SCH (10:44)
[2021-09-18] MEDS: METOPROLOL SUCCINATE 50 MG TABLET PO SCH (10:44)
[2021-09-18] MEDS: VENLAFAXINE ER 75 MG CAPSULE PO SCH (10:45)
[2021-09-18] MEDS: DOCUSATE SODIUM 250 MG CAPSULE PO SCH (10:46)
[2021-09-18] MEDS: risperiDONE 1 MG TABLET PO SCH ×2 (10:46→21:15)
[2021-09-18] MEDS: ASPIRIN EC 81 MG TABLET PO SCH (10:47)
[2021-09-18] MEDS: ACETAMINOPHEN 325 MG TABLET PO PRN ×2 (11:37→16:27)
--- NOTE | 2021-09-18 17:40 | PROVIDER PROGRESS NOTE ---
Assessment/Plan - Problem List (1) Altered mental status Assessment/Plan: Resolved. She is back to her baseline for the past 2 days and today A cognitive eval was done by OT and she scored 25/30, indicating mildly cognitively impaired. Per [facility] advised she be made an Inpatient. (2) At risk for unsafe behavior Conclusion/Plan: This is the patient's ninth admission/hospitalization over the past 12 months for the same presentation which is altered mental status which happens when she is at home, but she is stable with adequate mental status when she is cared for at hospital or SNF or our swing bed She lives with her and is unable to care for herself. She has had some in-home providers provided by the [facility]. In spite of that, its been difficult to get her to be compliant with medications as prescribed. (In the past she would overdose with opioids. That issue resolved when opioids were no longer prescribed to her (however she is still on Suboxone). She continues to return to this hospital after misuse of medications causing confusion and obtundation. These presentations also appeared to be from dehydration or UTI. Because of somnolence followed by kalpana, there is more concerned that excessive intake of her psych drug is now the cause for her altered mental status (somnolence, confusion then echolalia). Social work placed an APS report because of the frequent need to be hospitalized for altered mental status caused by drug intake. The patient told me that it is her who is in charge of filling her medication tray for the week, then he brings her the entire tray which she can apparently take as she wishes. It would not be a safe discharge to return back to this home living situation, as evidenced by recurrent re-admissions. The has stated (per SPIKE Ramos) and her caregivers have stated (per [facility] HUAN Perez), that she cannot be taken car of safely at home. 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 Perhaps using pharmacy pre-filled "bubble" medication packs should be dispensed for this patient, but she also needs supervision in how many she takes. The patient had a long meeting with Rachel Jonas 2 days ago and has agreed to be placed in LTAC "to prove that she does not need nursing care" (3) Bacteriurea Urinalysis revealed leukocyte esterase and WBCs, though sample may have been contaminated. Thus, a UTI was considered to again be contributing to her altered mental status at admission. She has a history of chronic bladder infections. She was started on empiric ceftriaxone. The urine culture has grown no bacteria, thus her antibiotic has been stopped. (4) Acute kidney injury superimposed on CKD Conclusion/Plan: Acute kidney injury is likely a result of dehydration, since she has inability to properly care for herself or be cared for at home. Her creat has plateaued at 1.8-2.1. We are avoid nephrotoxins and watch BMP intermittently. (5) Diabetes mellitus type 2, diet-controlled Conclusion/Plan: Her type 2 DM is well controlled by diet. The patient's HbA1c has been in the mid 5's range for several years. Routine glucose monitoring and insulin use is not warranted during this visit. She is getting a low-carb diet while here. (6) Anemia Conclusion/Plan: Patient has a history of mild anemia. Her hemoglobin and hematocrit levels are not concerning at this time, though they will be monitored during her stay. Qualifiers: Anemia type: unspecified type Qualified Code(s): D64.9 - Anemia, unspecif ied (7) HTN (hypertension) Conclusion/Plan: Patient was not taking home medications for hypertension because of obtundation. Systolic BP was elevated at admission and her home meds have been resumed, now that she is awake and can swallow, in addition to prn iv Hydralazine (8) Shingles Conclusion/Plan: Crusted, painful vesicular rash on the patient's left flank is likely to be shingles. The lesion was covered by a bandage and will be further addressed if indicated. (9) Bipolar disorder Conclusion/Plan: Now that she is alert and able to take a diet, we resumed her usual home p.o. 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 Because of yesterday's somnolence followed by echolalia, there is more concern that excessive drug intake was the cause for her altered mental status with somnolence and confusion followed by echolalia Social work has placed an APS report because of the frequent need to be hospitalized for altered mental status. She lives with her who is in charge of filling her medication tray for the week, but she opens the tray and takes the meds by herself. It is not a safe discharge to return back to this location. We have asked for SW help regarding safe [facility] location. - Current Meds Current Meds: Current Medications Generic Name Dose Route Start Last Admin Trade Name Radha PRN Reason Stop Dose Admin Acetaminophen 650 mg 09/13/21 01:04 09/18/21 16:27 Acetaminophen 325 Mg Tablet PO 650 mg Q4HR PRN Administration Pain 1 to 4, or Fever Aspirin 81 mg 09/15/21 09:00 09/18/21 10:47 Aspirin Ec 81 Mg Tablet PO 81 mg DAILY JARETT Administration Buprenorphine HCl 1 tab 09/14/21 22:00 09/18/21 14:47 Buprenorphine/Naloxone 8-2 Mg Tab SL 1 tab TID JARETT Administration Carboxymethylcellulose 1 drops 09/14/21 19:22 09/15/21 07:45 Carboxymethylcellulose Ophth Drops EACHEYE 1 drops PRN PRN Administration Dry Eye Cholecalciferol 25 mcg 09/15/21 09:00 09/18/21 10:44 Cholecalciferol 25 Mcg Tablet PO 25 mcg DAILY JARETT Administration Docusate Sodium 250 - 500 mg 09/14/21 09:00 09/18/21 10:46 Docusate Sodium 250 Mg Capsule PO 250 mg DAILY JARETT Administration Gabapentin 100 mg 09/13/21 23:00 09/18/21 14:19 Gabapentin 100 Mg Capsule PO 100 mg TID JARETT Administration Gemfibrozil 600 mg 09/14/21 21:00 09/18/21 10:43 Gemfibrozil 600 Mg Tablet PO 600 mg BID JARETT Administration Levothyroxine Sodium 50 mcg 09/15/21 07:00 09/18/21 05:55 Levothyroxine 25 Mcg Tablet PO 50 mcg QDAC JARETT Administration Lorazepam 0.5 mg 09/14/21 18:45 09/15/21 10:35 Lorazepam 0.5 Mg Tablet PO 0.5 mg BID PRN Administration Anxiety Metoprolol Succinate 50 mg 09/13/21 22:45 09/18/21 10:44 Metoprolol Succinate 50 Mg Tablet PO 50 mg DAILY JARETT Administration Multi-Ingredient Ointment 1 applic 09/14/21 18:45 09/16/21 05:29 Zinc Oxide 20% Oint 30 Gm Tube TOP 1 applic PRN PRN Administration Skin Care Multivitamins/Minerals 1 tab 09/17/21 08:00 09/18/21 10:43 Multivitamin W/Minerals Tablet PO 1 tab DAILYWM JARETT Administration Ondansetron HCl 4 mg 09/13/21 01:04 09/14/21 20:24 Ondansetron 4 Mg/2 Ml Vial IVP 4 mg Q6HR PRN Administration Nausea / Vomiting Pantoprazole Sodium 40 mg 09/15/21 07:00 09/18/21 05:56 Pantoprazole 40 Mg Tablet PO 40 mg QDAC JARETT Administration Polyethylene Glycol 17 gm 09/14/21 09:00 09/18/21 10:43 Polyethylene Glycol 3350 17 Gm Packet PO 17 gm DAILY JARETT Administration Prochlorperazine Edisylate 10 mg 09/14/21 19:40 09/14/21 22:45 Prochlorperazine 10 Mg/2 Ml Vial IVP 10 mg Q6HR PRN Administration Nausea / Vomiting Risperidone 1 mg 09/13/21 23:00 09/18/21 10:46 Risperidone 1 Mg Tablet PO 1 mg BID JARETT Administration Senna 8.6 - 17.2 mg 09/14/21 09:00 09/18/21 10:44 Senna 8.6 Mg Tablet PO 8.6 mg DAILY JARETT Administration Tizanidine HCl 2 mg 09/14/21 22:00 09/18/21 14:19 Tizanidine 4 Mg Tablet PO 2 mg TID JARETT Administration Venlafaxine HCl 150 mg 09/15/21 09:00 09/18/21 10:45 Venlafaxine Er 75 Mg Capsule PO 150 mg DAILY JARETT Administration - Lab Result Fish Bone Diagrams: 09/14/21 06:49 09/18/21 04:27 - Additional Planning My Orders: My Active Orders 09/19/21 05:00 BMP - BASIC METABOLIC PANEL [CHEM] DAILYLAB 09/20/21 05:00 BMP - BASIC METABOLIC PANEL [CHEM] DAILYLAB Subjective - Subjective Patient Reports: No Complaints Objective Vital Signs: Vital Signs - 24 hr 09/17/21 09/18/21 09/18/21 23:53 07:31 15:34 Temperature 36.6 C 36.6 C 36.4 C L Heart Rate [ 60 59 L 57 L Brachial] Respiratory 16 18 16 Rate Blood Pressure 134/51 H 109/46 L 130/50 L [Right Brachial artery] O2 Saturation 96 94 95 Oxygen O2 Source [Without Activity] Room air O2 Source Room air I&O (Last 24 Hrs): Intake and Output Totals x24h 09/16/21 09/17/21 09/18/21 23:59 23:59 23:59 Intake Total 1778 2190 1176 Output Total 1949 1999 2100 Balance -172 190 -924 General: Alert, Oriented x3 HEENT: Mucous membr. moist/pink Neuro: Alert, Non Focal Respiratory: No respiratory distress Abdomen: No tenderness Extremities: No clubbing, No edema - Results Results: Laboratory Results WBC 7.0 x10^3/uL (4.8-10.8) 09/14/21 06:49 RBC 3.78 10^6/uL (4.20-5.40) L 09/14/21 06:49 Hgb 10.9 g/dL (12.0-16.0) L 09/14/21 06:49 Hct 33.9 % (37.0-47.0) L 09/14/21 06:49 MCV 89.7 fL (81.0-99.0) 09/14/21 06:49 MCH 28.8 pg (27.0-31.0) 09/14/21 06:49 MCHC 32.2 g/dL (32.0-36.0) 09/14/21 06:49 RDW 13.3 % (12.0-15.0) 09/14/21 06:49 Plt Count 253 10^3/uL (130-450) 09/14/21 06:49 MPV 9.5 fL (7.9-10.8) 09/14/21 06:49 Neut # (Auto) 4.7 10^3/uL (1.5-6.6) 09/14/21 06:49 Lymph # (Auto) 1.4 10^3/uL (1.5-3.5) L 09/14/21 06:49 [place] # (Auto) 0.7 10^3/uL (0.0-1.0) 09/14/21 06:49 Eos # (Auto) 0.2 10^3/uL (0.0-0.7) 09/14/21 06:49 Baso # (Auto) 0.0 10^3/uL (0.0-0.1) 09/14/21 06:49 Absolute Nucleated RBC 0.00 x10^3/uL 09/14/21 06:49 Nucleated RBC % 0.0 /100WBC 09/14/21 06:49 Bld Gas Analysis Time 2204 09/12/21 22:00 Sample Site LEFT RADIAL 09/12/21 22:00 ABG pH 7.38 (7.35-7.45) 09/12/21 22:00 ABG pCO2 45 mmHg (34-45) 09/12/21 22:00 ABG pO2 71 mmHg (80-100) L 09/12/21 22:00 ABG HCO3 26.2 mmol/L (22.0-26.0) H 09/12/21 22:00 ABG Total CO2 27.6 MMOL/L (21.0-29.0) 09/12/21 22:00 ABG O2 Saturation 94 % (94-98) 09/12/21 22:00 ABG Base Excess 0.8 mmol/L (-2.0-3.0) 09/12/21 22:00 Thien Test POSITIVE 09/12/21 22:00 Room Air YES 09/12/21 22:00 FiO2 21.00 09/12/21 22:00 Sodium 137 mmol/L (135-145) 09/18/21 04:27 Potassium 4.7 mmol/L (3.5-5.0) 09/18/21 04:27 Chloride 102 mmol/L (101-111) 09/18/21 04:27 Carbon Dioxide 26 mmol/L (21-32) 09/18/21 04:27 Anion Gap 9.0 (6-13) 09/18/21 04:27 BUN 35 mg/dL (6-20) H 09/18/21 04:27 Creatinine 1.9 mg/dL (0.4-1.0) H 09/18/21 04:27 Estimated GFR (MDRD) 26 (>89) L 09/18/21 04:27 Glucose 118 mg/dL (70-100) H 09/18/21 04:27 Lactic Acid 1.4 mmol/L (0.5-2.2) 09/12/21 22:31 Calcium 9.2 mg/dL (8.5-10.3) 09/18/21 04:27 Total Bilirubin 0.7 mg/dL (0.2-1.0) 09/12/21 21:35 AST 11 IU/L (10-42) 09/12/21 21:35 ALT < 10 IU/L (10-60) L 09/12/21 21:35 Alkaline Phosphatase 99 IU/L (42-121) 09/12/21 21:35 Troponin I High Sens 11.2 ng/L (2.3-14.8) 09/12/21 21:35 Total Protein 7.9 g/dL (6.7-8.2) 09/12/21: Albumin 3.8 g/dL (3.2-5.5) 09/12/21 21: Globulin 4.1 g/dL (2.1-4.2) 09/12/21 21: Albumin/Globulin Ratio 0.9 (1.0-2.2) L 09/12/21 21:35 Urine Color YELLOW 09/12/21 21:25 Urine Clarity HAZY (CLEAR) 09/12/21 21: Urine pH 6.0 PH (5.0-7.5) 09/12/21 21: Ur Specific [place] 1.010 (1.002-1.030) 09/12/21 21:25 Urine Protein TRACE mg/dL (NEGATIVE) 09/12/21 21: Urine Glucose (UA) NEGATIVE mg/dL (NEGATIVE) 09/12/21 21: Urine Ketones NEGATIVE mg/dL (NEGATIVE) 09/12/21 21:25 Urine Occult Blood TRACE-INTA (NEGATIVE) 09/12/21 21: Urine Nitrite NEGATIVE (NEGATIVE) 09/12/21 21: Urine Bilirubin NEGATIVE (NEGATIVE) 09/12/21 21: Urine Urobilinogen 0.2 (NORMAL) E.U./dL (NORMAL) 09/12/21 21:25 Ur Leukocyte Esterase MODERATE (NEGATIVE) H 09/12/21 21:25 Urine RBC 0-5 /HPF (0-5) 09/12/21 21:25 Urine WBC >25 /HPF (0-5) H 09/12/21 21:25 Ur Epithelial Cells RARE Transitional /HPF (<= Few) 09/12/21 21:25 Ur Squamous Epith Cells RARE Squamous (<= Few) 09/12/21 21:25 Urine Bacteria Few /HPF (None Seen) 09/12/21 21:25 Urine Culture Comments INDICATED 09/12/21 21:25 Urine Opiates Screen NEGATIVE (NEGATIVE) 09/12/21 21:25 Ur Oxycodone Screen NEGATIVE (NEGATIVE) 09/12/21 21:25 Urine Methadone Screen NEGATIVE (NEGATIVE) 09/12/21 21:25 Ur Propoxyphene Screen NEGATIVE (NEGATIVE) 09/12/21 21:25 Ur Barbiturates Screen NEGATIVE (NEGATIVE) 09/12/21 21:25 Ur Tricyclics Screen NEGATIVE (NEGATIVE) 09/12/21 21:25 Ur Phencyclidine Scrn NEGATIVE (NEGATIVE) 09/12/21 21:25 Ur Amphetamine Screen NEGATIVE (NEGATIVE) 09/12/21 21:25 U Methamphetamines Scrn NEGATIVE (NEGATIVE) 09/12/21 21:25 U Benzodiazepines Scrn NEGATIVE (NEGATIVE) 09/12/21 21:25 Urine Cocaine Screen NEGATIVE (NEGATIVE) 09/12/21 21:25 U Cannabinoids Screen NEGATIVE (NEGATIVE) 09/12/21 21:25 SARS-CoV-2 (PCR) NOT DETECTED 09/13/21 00:25 - Procedures Procedures: Procedures COLONOSCOPY (01/09/13) DRAINAGE OF BLADDER WITH DRAINAGE DEVICE, VIA OPENING (11/25/19)
[2021-09-18] MEDS: ZINC OXIDE 20% OINT 30 GM TUBE TOP PRN (21:15)
[2021-09-19] MEDS: GABAPENTIN 100 MG CAPSULE PO SCH ×3 (06:06→20:41)
[2021-09-19] MEDS: tiZANidine 4 MG TABLET PO SCH ×3 (06:07→20:41)
[2021-09-19] MEDS: PANTOPRAZOLE 40 MG TABLET PO SCH (06:08)
[2021-09-19] MEDS: LEVOTHYROXINE 25 MCG TABLET PO SCH (06:08)
[2021-09-19] MEDS: BUPRENORPHINE/NALOXONE 8-2 MG TAB SL SCH ×3 (06:13→21:57)
[2021-09-19 06:15] LABS: CALCIUM 9.5 mg/dL (8.5-10.3); CREATININE 1.9 mg/dL (0.4-1.0); POTASSIUM 4.5 mmol/L (3.5-5.0)
[2021-09-19] MEDS: MULTIVITAMIN W/MINERALS TABLET PO SCH (08:31)
[2021-09-19] MEDS: ASPIRIN EC 81 MG TABLET PO SCH (08:32)
[2021-09-19] MEDS: VENLAFAXINE ER 75 MG CAPSULE PO SCH (08:32)
[2021-09-19] MEDS: risperiDONE 1 MG TABLET PO SCH ×2 (08:32→20:41)
[2021-09-19] MEDS: SENNA 8.6 MG TABLET PO SCH (08:32)
[2021-09-19] MEDS: gemfibroziL 600 MG TABLET PO SCH ×2 (08:33→20:41)
[2021-09-19] MEDS: METOPROLOL SUCCINATE 50 MG TABLET PO SCH (08:33)
[2021-09-19] MEDS: DOCUSATE SODIUM 250 MG CAPSULE PO SCH (08:34)
[2021-09-19] MEDS: CHOLECALCIFEROL 25 MCG TABLET PO SCH (08:34)
[2021-09-19] MEDS: polyethylene glycoL 3350 17 GM PACKET PO SCH (08:34)
--- NOTE | 2021-09-19 15:26 | PROVIDER PROGRESS NOTE ---
Assessment/Plan - Problem List (1) Altered mental status Assessment/Plan: Resolved. She is back to her baseline after being re-admitted and being administered her meds properly and ordered to walk with PT and not lay in bed. A cognitive eval was done by OT and she scored 25/30, indicating mildly cognitively impaired. Per [facility] advised she be made an Inpatient. (2) At risk for unsafe behavior Conclusion/Plan: This is the patient's ninth admission/hospitalization over the past 12 months for the same presentation which is altered mental status which happens when she is at home, but she is stable with adequate mental status when she is cared for at hospital or SNF or our swing bed She lives with her and is unable to care for herself. She has had some in-home providers provided by the [facility]. In spite of that, its been difficult to get her to be compliant with medications as prescribed. (In the past she would overdose with opioids. That issue resolved when opioids were no longer prescribed to her (however she is sti ll on Suboxone). She continues to return to this hospital after misuse of medications causing confusion and obtundation. These presentations also appeared to be from dehydration or UTI. Because of somnolence followed by enriquelalia, there is more concerned that excessive intake of her psych drug is now the cause for her altered mental status (somnolence, confusion then echolalia). Social work placed an APS report because of the frequent need to be hospitalized for altered mental status caused by drug intake. The patient told me that it is her who is in charge of filling her medication tray for the week, then he brings her the entire tray which she can apparently take as she wishes. It would not be a safe discharge to return back to this home living situation, as evidenced by recurrent re-admissions. The has stated (per SPIKE Ramos) and her caregivers have stated (per [facility] HUAN Perez), that she cannot be taken car of safely at home. 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 Perhaps using pharmacy pre-filled "bubble" medication packs should be dispensed for this patient, but she also needs supervision in how many she takes. The patient had a long meeting with Rachel Jonas several days ago and has agreed to be placed in a [facility] facility "to prove that she does not need nursing care". SW is working on her placement. (3) Bacteriurea Urinalysis revealed leukocyte esterase and WBCs, though sample may have been contaminated. Thus, a UTI was considered to again be contributing to her altered mental status at admission. She has a history of chronic bladder infections. She was started on empiric ceftriaxone. The urine culture has grown no bacteria, thus her antibiotic has been stopped. (4) Acute kidney injury superimposed on CKD Conclusion/Plan: Acute kidney injury is likely a result of dehydration, since she has inability to properly care for herself or be cared for at home. Her creat has plateaued at 1.8-2.1. We are avoid nephrotoxins and watch BMP intermittently. (5) Diabetes mellitus type 2, diet-controlled Conclusion/Plan: Her type 2 DM is well controlled by diet. The patient's HbA1c has been in the mid 5's range for several years. Routine glucose monitoring and insulin use is not warranted during this visit. She is getting a low-carb diet while here. (6) Anemia Conclusion/Plan: Patient has a history of mild anemia. Her hemoglobin and hematocrit levels are not concerning at this time, though they will be monitored during her stay. Qualifiers: Anemia type: unspecified type Qualified Code(s): D64.9 - Anemia, unspecified (7) HTN (hypertension) Conclusion/Plan: Patient was not taking home medications for hypertension because of obtundation. Systolic BP was elevated at admission and her home meds have been resumed, now that she is awake and can swallow, in addition to prn iv Hydralazine (8) Shingles Conclusion/Plan: Crusted, painful vesicular rash on the patient's left flank is likely to be shingles. The lesion was covered by a bandage and will be further addressed if indicated. (9) Bipolar disorder Conclusion/Plan: Now that she is alert and able to take a diet, we resumed her usual home p.o. meds (10) Echolalia Conclusion/Plan: Resolved Echolalia is a global [employer]INE [employer] abnormality, not a focal one and can occur when psych meds are taken in excess, which is the suspected culprit here.. Because of yesterday's somnolence followed by echolalia, there is more concern that excessive drug intake was the cause for her altered mental status with somnolence and confusion followed by [place] Social work has placed an APS report because of the frequent need to be hospitalized for altered mental status. She lives with her who is in charge of filling her medication tray for the week, but she opens the tray and takes the meds by herself. It is not a safe discharge to return back to this location. We have asked for SW help regarding safe [facility] location. - Current Meds Current Meds: Current Medications Generic Name Dose Route Start Last Admin Trade Name Freq PRN Reason Stop Dose Admin Acetaminophen 650 mg 09/13/21 01:04 09/18/21 16:27 Acetaminophen 325 Mg Tablet PO 650 mg Q4HR PRN Administration Pain 1 to 4, or Fever Aspirin 81 mg 09/15/21 09:00 09/19/21 08:32 Aspirin Ec 81 Mg Tablet PO 81 mg DAILY JARETT Administration Buprenorphine HCl 1 tab 09/14/21 22:00 09/19/21 13:59 Buprenorphine/Naloxone 8-2 Mg Tab SL 1 tab TID JARETT Administration Carboxymethylcellulose 1 drops 09/14/21 19:22 09/15/21 07:45 Carboxymethylcellulose Ophth Drops EACHEYE 1 drops PRN PRN Administration Dry Eye Cholecalciferol 25 mcg 09/15/21 09:00 09/19/21 08:34 Cholecalciferol 25 Mcg Tablet PO 25 mcg DAILY JARETT Administration Docusate Sodium 250 - 500 mg 09/14/21 09:00 09/19/21 08:34 Docusate Sodium 250 Mg Capsule PO 250 mg DAILY JARETT Administration Gabapentin 100 mg 09/13/21 23:00 09/19/21 14:00 Gabapentin 100 Mg Capsule PO 100 mg TID JARETT Administration Gemfibrozil 600 mg 09/14/21 21:00 09/19/21 08:33 Gemfibrozil 600 Mg Tablet PO 600 mg BID JARETT Administration Levothyroxine Sodium 50 mcg 09/15/21 07:00 09/19/21 06:08 Levothyroxine 25 Mcg Tablet PO 50 mcg QDAC JARETT Administration Lorazepam 0.5 mg 09/14/21 18:45 09/15/21 10:35 Lorazepam 0.5 Mg Tablet PO 0.5 mg BID PRN Administration Anxiety Metoprolol Succinate 50 mg 09/13/21 22:45 09/19/21 08:33 Metoprolol Succinate 50 Mg Tablet PO 50 mg DAILY JARETT Administration Multi-Ingredient Ointment 1 applic 09/14/21 18:45 09/18/21 21:15 Zinc Oxide 20% Oint 30 Gm Tube TOP 1 applic PRN PRN Administration Skin Care Multivitamins/Minerals 1 tab 09/17/21 08:00 09/19/21 08:31 Multivitamin W/Minerals Tablet PO 1 tab DAILYWM JARETT Administration Ondansetron HCl 4 mg 09/13/21 01:04 09/14/21 20:24 Ondansetron 4 Mg/2 Ml Vial IVP 4 mg Q6HR PRN Administration Nausea / Vomiting Pantoprazole Sodium 40 mg 09/15/21 07:00 09/19/21 06:08 Pantoprazole 40 Mg Tablet PO 40 mg QDAC JARETT Administration Polyethylene Glycol 17 gm 09/14/21 09:00 09/19/21 08:34 Polyethylene Glycol 3350 17 Gm Packet PO 17 gm DAILY JARETT Administration Prochlorperazine Edisylate 10 mg 09/14/21 19:40 09/14/21 22:45 Prochlorperazine 10 Mg/2 Ml Vial IVP 10 mg Q6HR PRN Administration Nausea / Vomiting Risperidone 1 mg 09/13/21 23:00 09/19/21 08:32 Risperidone 1 Mg Tablet PO 1 mg BID JARETT Administration Senna 8.6 - 17.2 mg 09/14/21 09:00 09/19/21 08:32 Senna 8.6 Mg Tablet PO 8.6 mg DAILY JARETT Administration Tizanidine HCl 2 mg 09/14/21 22:00 09/19/21 14:00 Tizanidine 4 Mg Tablet PO 2 mg TID JARETT Administration Venlafaxine HCl 150 mg 09/15/21 09:00 09/19/21 08:32 Venlafaxine Er 75 Mg Capsule PO 150 mg DAILY JARETT Administration - Lab Result Fish Bone Diagrams: 09/14/21 06:49 09/19/21 04:38 - Additional Planning My Orders: My Active Orders 09/20/21 05:00 BMP - BASIC METABOLIC PANEL [CHEM] DAILYLAB Subjective - Subjective Patient Reports: Resting Comfortably Objective Vital Signs: Vital Signs - 24 hr 09/18/21 09/19/21 09/19/21 15:34 00:00 08:58 Temperature 36.4 C L 97.5 C H 36.6 C Heart Rate [ 57 L 55 L 54 L Brachial] Respiratory 16 17 18 Rate Blood Pressure 130/50 L 107/47 L 113/44 L [Right Brachial artery] O2 Saturation 95 96 96 Oxygen O2 Source [Without Activity] Room air O2 Source Room air I&O (Last 24 Hrs): Intake and Output Totals x24h 09/17/21 09/18/21 09/19/21 23:59 23:59 23:59 Intake Total 2189 Output Total 1999 371 5286 Balance 190 -653 -1369 General: Alert HEENT: Mucous membr. moist/pink Neuro: Alert, Non Focal Respiratory: No respiratory distress Abdomen: Soft - Results Results: Laboratory Results WBC 7.0 x10^3/uL (4.8-10.8) 09/14/21 06:49 RBC 3.78 10^6/uL (4.20-5.40) L 09/14/21 06:49 Hgb 10.9 g/dL (12.0-16.0) L 09/14/21 06:49 Hct 33.9 % (37.0-47.0) L 09/14/21 06:49 MCV 89.7 fL (81.0-99.0) 09/14/21 06:49 MCH 28.8 pg (27.0-31.0) 09/14/21 06:49 MCHC 32.2 g/dL (32.0-36.0) 09/14/21 06:49 RDW 13.3 % (12.0-15.0) 09/14/21 06:49 Plt Count 253 10^3/uL (130-450) 09/14/21 06:49 MPV 9.5 fL (7.9-10.8) 09/14/21 06:49 Neut # (Auto) 4.7 10^3/uL (1.5-6.6) 09/14/21 06:49 Lymph # (Auto) 1.4 10^3/uL (1.5-3.5) L 09/14/21 06:49 [place] # (Auto) 0.7 10^3/uL (0.0-1.0) 09/14/21 06:49 Eos # (Auto) 0.2 10^3/uL (0.0-0.7) 09/14/21 06:49 Baso # (Auto) 0.0 10^3/uL (0.0-0.1) 09/14/21 06:49 Absolute Nucleated RBC 0.00 x10^3/uL 09/14/21 06:49 Nucleated RBC % 0.0 /100WBC 09/14/21 06:49 Bld Gas Analysis Time 2204 09/12/21 22:00 Sample Site LEFT RADIAL 09/12/21 22:00 ABG pH 7.38 (7.35-7.45) 09/12/21 22:00 ABG pCO2 45 mmHg (34-45) 09/12/21 22:00 ABG pO2 71 mmHg (80-100) L 09/12/21 22:00 ABG HCO3 26.2 mmol/L (22.0-26.0) H 09/12/21 22:00 ABG Total CO2 27.6 MMOL/L (21.0-29.0) 09/12/21 22:00 ABG O2 Saturation 94 % (94-98) 09/12/21 22:00 ABG Base Excess 0.8 mmol/L (-2.0-3.0) 09/12/21 22:00 [place]ien Test POSITIVE 09/12/21 22:00 Room Air YES 09/12/21 22:00 FiO2 21.00 09/12/21 22:00 Sodium 137 mmol/L (135-145) 09/19/21 04:38 Potassium 4.5 mmol/L (3.5-5.0) 09/19/21 04:38 Chloride 101 mmol/L (101-111) 09/19/21 04:38 Carbon Dioxide 27 mmol/L (21-32) 09/19/21 04:38 Anion Gap 9.0 (6-13) 09/19/21 04:38 BUN 40 mg/dL (6-20) H 09/19/21 04:38 Creatinine 1.9 mg/dL (0.4-1.0) H 09/19/21 04:38 Estimated GFR (MDRD) 26 (>89) L 09/19/21 04:38 Glucose 124 mg/dL (70-100) H 09/19/21 04:38 Lactic Acid 1.4 mmol/L (0.5-2.2) 09/12/21 22:31 Calcium 9.5 mg/dL (8.5-10.3) 09/19/21 04:38 Total Bilirubin 0.7 mg/dL (0.2-1.0) 09/12/21 21:35 AST 11 IU/L (10-42) 09/12/21 21:35 ALT < 10 IU/L (10-60) L 09/12/21 21:35 Alkaline Phosphatase 99 IU/L (42-121) 09/12/21 21:35 Troponin I High Sens 11.2 ng/L (2.3-14.8) 09/12/21 21:35 Total Protein 7.9 g/dL (6.7-8.2) 09/12/21: Albumin 3.8 g/dL (3.2-5.5) 09/12/21 21: Globulin 4.1 g/dL (2.1-4.2) 09/12/21 21: Albumin/Globulin Ratio 0.9 (1.0-2.2) L 09/12/21 21:35 Urine Color YELLOW 09/12/21 21:25 Urine Clarity HAZY (CLEAR) 09/12/21 21: Urine pH 6.0 PH (5.0-7.5) 09/12/21 21: Ur Specific [place] 1.010 (1.002-1.030) 09/12/21 21:25 Urine Protein TRACE mg/dL (NEGATIVE) 09/12/21 21: Urine Glucose (UA) NEGATIVE mg/dL (NEGATIVE) 09/12/21 21: Urine Ketones NEGATIVE mg/dL (NEGATIVE) 09/12/21 21:25 Urine Occult Blood TRACE-INTA (NEGATIVE) 09/12/21 21: Urine Nitrite NEGATIVE (NEGATIVE) 09/12/21 21: Urine Bilirubin NEGATIVE (NEGATIVE) 09/12/21 21: Urine Urobilinogen 0.2 (NORMAL) E.U./dL (NORMAL) 09/12/21 21:25 Ur Leukocyte Esterase MODERATE (NEGATIVE) H 09/12/21 21:25 Urine RBC 0-5 /HPF (0-5) 09/12/21 21:25 Urine WBC >25 /HPF (0-5) H 09/12/21 21:25 Ur Epithelial Cells RARE Transitional /HPF (<= Few) 09/12/21 21:25 Ur Squamous Epith Cells RARE Squamous (<= Few) 09/12/21 21:25 Urine Bacteria Few /HPF (None Seen) 09/12/21 21:25 Urine Culture Comments INDICATED 09/12/21 21:25 Urine Opiates Screen NEGATIVE (NEGATIVE) 09/12/21 21:25 Ur Oxycodone Screen NEGATIVE (NEGATIVE) 09/12/21 21:25 Urine Methadone Screen NEGATIVE (NEGATIVE) 09/12/21 21:25 Ur Propoxyphene Screen NEGATIVE (NEGATIVE) 09/12/21 21:25 Ur Barbiturates Screen NEGATIVE (NEGATIVE) 09/12/21 21:25 Ur Tricyclics Screen NEGATIVE (NEGATIVE) 09/12/21 21:25 Ur Phencyclidine Scrn NEGATIVE (NEGATIVE) 09/12/21 21:25 Ur Amphetamine Screen NEGATIVE (NEGATIVE) 09/12/21 21:25 U Methamphetamines Scrn NEGATIVE (NEGATIVE) 09/12/21 21:25 U Benzodiazepines Scrn NEGATIVE (NEGATIVE) 09/12/21 21:25 Urine Cocaine Screen NEGATIVE (NEGATIVE) 09/12/21 21:25 U Cannabinoids Screen NEGATIVE (NEGATIVE) 09/12/21 21:25 SARS-CoV-2 (PCR) NOT DETECTED 09/13/21 00:25 - Procedures Procedures: Procedures COLONOSCOPY (01/09/13) DRAINAGE OF BLADDER WITH DRAINAGE DEVICE, VIA OPENING (11/25/19)
[2021-09-20] MEDS: tiZANidine 4 MG TABLET PO SCH ×3 (05:22→21:37)
[2021-09-20] MEDS: GABAPENTIN 100 MG CAPSULE PO SCH ×3 (05:22→21:37)
[2021-09-20] MEDS: PANTOPRAZOLE 40 MG TABLET PO SCH (05:22)
[2021-09-20] MEDS: LEVOTHYROXINE 25 MCG TABLET PO SCH (05:22)
[2021-09-20] MEDS: BUPRENORPHINE/NALOXONE 8-2 MG TAB SL SCH ×3 (06:06→21:37)
[2021-09-20 06:11] LABS: CALCIUM 9.4 mg/dL (8.5-10.3); POTASSIUM 4.7 mmol/L (3.5-5.0)
[2021-09-20] MEDS: VENLAFAXINE ER 75 MG CAPSULE PO SCH (08:22)
[2021-09-20] MEDS: SENNA 8.6 MG TABLET PO SCH (08:22)
[2021-09-20] MEDS: gemfibroziL 600 MG TABLET PO SCH ×2 (08:22→21:36)
[2021-09-20] MEDS: METOPROLOL SUCCINATE 50 MG TABLET PO SCH (08:23)
[2021-09-20] MEDS: ASPIRIN EC 81 MG TABLET PO SCH (08:23)
[2021-09-20] MEDS: risperiDONE 1 MG TABLET PO SCH ×2 (08:23→21:37)
[2021-09-20] MEDS: polyethylene glycoL 3350 17 GM PACKET PO SCH (08:23)
[2021-09-20] MEDS: MULTIVITAMIN W/MINERALS TABLET PO SCH (08:23)
[2021-09-20] MEDS: CHOLECALCIFEROL 25 MCG TABLET PO SCH (08:23)
[2021-09-20] MEDS: DOCUSATE SODIUM 250 MG CAPSULE PO SCH (08:23)
--- NOTE | 2021-09-20 16:05 | PROVIDER PROGRESS NOTE ---
Assessment/Plan - Problem List (1) Bradycardia Assessment/Plan: HR documented in the 40's Will decrease her Metoprolol dose from 50 mg daily to 25 mg daily (2) Altered mental status Assessment/Plan: Resolved. She is back to her baseline after being re-admitted and being administered her meds properly and ordered to walk with PT and not lay all day in bed as at home. A cognitive eval was done by OT and she scored 25/30, indicating mildly cognitively impaired. Per , [facility] advised she be made an Inpatient. (3) At risk for unsafe behavior Conclusion/Plan: This is the patient's ninth admission/hospitalization over the past 12 months for the same presentation which is altered mental status which happens when she is at home, but she is stable with adequate mental status when she is cared for at hospital or SNF or our swing bed She lives with her and is unable to care for herself. She has had some in-home providers provided by the [facility]. In spite of that, its been difficult to get her to be compliant with medications as prescribed. (In the past she would overdose with opioids. That issue resolved when opioids were no longer prescribed to her (however she is still on Suboxone). She continues to return to this hospital after misuse of medications causing confusion and obtundation. These presentations also appeared to be from dehydration or UTI. Because of somnolence followed by echolalia, there is more concerned that excessive intake of her psych drug is now the cause for her altered mental status (somnolence, confusion then echolalia). Social work placed an APS report because of the frequent need to be hospitalized for altered mental status caused by drug intake. The patient told me that it is her who is in charge of filling her medication tray for the week, then he brings her the entire tray which she can apparently take as she wishes. It would not be a safe discharge to return back to this home living situation, as evidenced by recurrent re-admissions. The has stated (per SPIKE Ramos) and her caregivers have stated (per [facility] HUAN Perez), that she cannot be taken car of safely at home. 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 Perhaps using pharmacy pre-filled "bubble" medication packs should be dispensed for this patient, but she also needs supervision in how many she takes. The patient had a long meeting with Rachel Jonas several days ago and has agreed to be placed in a Long-Term Care facility "to prove that she does not need nursing care". SW is working on her placement. (4) Bacteriurea Urinalysis revealed leukocyte esterase and WBCs, though sample may have been contaminated. Thus, a UTI was considered to again be contributing to her altered mental status at admission. She has a history of chronic bladder infections. She was started on empiric ceftriaxone. The urine culture has grown no bacteria, thus her antibiotic has been stopped. (5) Acute kidney injury superimposed on CKD Conclusion/Plan: Acute kidney injury is likely a result of dehydration, since she has inability to properly care for herself or be cared for at home. Her creat has plateaued at 1.8-2.1. We are avoid nephrotoxins and watch BMP intermittently. (6) Diabetes mellitus type 2, diet-controlled Conclusion/Plan: Her type 2 DM is well controlled by diet. The patient's HbA1c has been in the mid 5's range for several years. Routine glucose monitoring and insulin use is not warranted during this visit. She is getting a low-carb diet while here. (7) Anemia Conclusion/Plan: Patient has a history of mild anemia. Her hemoglobin and hematocrit levels are not concerning at this time, though they will be monitored during her stay. Qualifiers: Anemia type: unspecified type Qualified Code(s): D64.9 - Anemia, unspecified (8) HTN (hypertension) Conclusion/Plan: Patient was not taking home medications for hypertension because of obtundation. Systolic BP was elevated at admission and her home meds have been resumed, now that she is awake and can swallow, in addition to prn iv Hydralazine (9) Shingles Conclusion/Plan: Crusted, painful vesicular rash on the patient's left flank is likely to be shingles. The lesion was covered by a bandage and will be further addressed if indicated. (10) Bipolar disorder Conclusion/Plan: Now that she is alert and able to take a diet, we resumed her usual home p.o. meds (11) Echolalia Conclusion/Plan: Resolved Echolalia is a global [employer] abnormality, not a focal one and can occur when psych meds are taken in excess, which is the suspected culprit here.. Because of yesterday's somnolence followed by kalpana, there is more concern that excessive drug intake was the cause for her altered mental status with somnolence and confusion followed by kalpana Social work has placed an APS report because of the frequent need to be hospitalized for altered mental status. She lives with her who is in charge of filling her medication tray for the week, but she opens the tray and takes the meds by herself. It is not a safe discharge to return back to this location. We have asked for SW help regarding safe [facility] location. - Current Meds Current Meds: Current Medications Generic Name Dose Route Start Last Admin Trade Name Freq PRN Reason Stop Dose Admin Acetaminophen 650 mg 09/13/21 01:04 09/18/21 16:27 Acetaminophen 325 Mg Tablet PO 650 mg Q4HR PRN Administration Pain 1 to 4, or Fever Aspirin 81 mg 09/15/21 09:00 09/20/21 08:23 Aspirin Ec 81 Mg Tablet PO 81 mg DAILY JARETT Administration Buprenorphine HCl 1 tab 09/14/21 22:00 09/20/21 13:32 Buprenorphine/Naloxone 8-2 Mg Tab SL 1 tab TID JARETT Administration Carboxymethylcellulose 1 drops 09/14/21 19:22 09/15/21 07:45 Carboxymethylcellulose Ophth Drops EACHEYE 1 drops PRN PRN Administration Dry Eye Cholecalciferol 25 mcg 09/15/21 09:00 09/20/21 08:23 Cholecalciferol 25 Mcg Tablet PO 25 mcg DAILY JARETT Administration Docusate Sodium 250 - 500 mg 09/14/21 09:00 09/20/21 08:23 Docusate Sodium 250 Mg Capsule PO 250 mg DAILY JARETT Administration Gabapentin 100 mg 09/13/21 23:00 09/20/21 14:10 Gabapentin 100 Mg Capsule PO 100 mg TID JARETT Administration Gemfibrozil 600 mg 09/14/21 21:00 09/20/21 08:22 Gemfibrozil 600 Mg Tablet PO 600 mg BID JARETT Administration Levothyroxine Sodium 50 mcg 09/15/21 07:00 09/20/21 05:22 Levothyroxine 25 Mcg Tablet PO 50 mcg QDAC JARETT Administration Lorazepam 0.5 mg 09/14/21 18:45 09/15/21 10:35 Lorazepam 0.5 Mg Tablet PO 0.5 mg BID PRN Administration Anxiety Multi-Ingredient Ointment 1 applic 09/14/21 18:45 09/18/21 21:15 Zinc Oxide 20% Oint 30 Gm Tube TOP 1 applic PRN PRN Administration Skin Care Multivitamins/Minerals 1 tab 09/17/21 08:00 09/20/21 08:23 Multivitamin W/Minerals Tablet PO 1 tab DAILYWM JARETT Administration Ondansetron HCl 4 mg 09/13/21 01:04 09/14/21 20:24 Ondansetron 4 Mg/2 Ml Vial IVP 4 mg Q6HR PRN Administration Nausea / Vomiting Pantoprazole Sodium 40 mg 09/15/21 07:00 09/20/21 05:22 Pantoprazole 40 Mg Tablet PO 40 mg QDAC JARETT Administration Polyethylene Glycol 17 gm 09/14/21 09:00 09/20/21 08:23 Polyethylene Glycol 3350 17 Gm Packet PO Not Given DAILY JARETT Prochlorperazine Edisylate 10 mg 09/14/21 19:40 09/14/21 22:45 Prochlorperazine 10 Mg/2 Ml Vial IVP 10 mg Q6HR PRN Administration Nausea / Vomiting Risperidone 1 mg 09/13/21 23:00 09/20/21 08:23 Risperidone 1 Mg Tablet PO 1 mg BID JARETT Administration Senna 8.6 - 17.2 mg 09/14/21 09:00 09/20/21 08:22 Senna 8.6 Mg Tablet PO 8.6 mg DAILY JARETT Administration Tizanidine HCl 2 mg 09/14/21 22:00 09/20/21 14:09 Tizanidine 4 Mg Tablet PO 2 mg TID JARETT Administration Venlafaxine HCl 150 mg 09/15/21 09:00 09/20/21 08:22 Venlafaxine Er 75 Mg Capsule PO 150 mg DAILY JARETT Administration - Lab Result Fish Bone Diagrams: 09/14/21 06:49 09/20/21 05:05 - Additional Planning My Orders: My Active Orders 09/21/21 09:00 Metoprolol Succinate [Toprol Xl] 25 mg PO DAILY Subjective - Subjective Patient Reports: Resting Comfortably, No Complaints Objective Vital Signs: Vital Signs - 24 hr 09/20/21 09/20/21 08:04 15:57 Temperature 36.5 C 36.3 C L Heart Rate [ 49 L 62 Brachial] Respiratory 18 18 Rate Blood Pressure 125/50 L 131/59 H [Right Brachial artery] O2 Saturation 96 96 Oxygen O2 Source [Without Activity] Room air O2 Source Room air I&O (Last 24 Hrs): Intake and Output Totals x24h 09/18/21 09/19/21 09/20/21 23:59 23:59 23:59 Intake Total 1876 2370 1210 Output Total 2450 2876 1300 Balance -574 -506 -90 General: Alert HEENT: Mucous membr. moist/pink Neuro: Alert, Non Focal Cardiovascular: No murmurs Respiratory: No respiratory distress Abdomen: Other (Obese) Extremities: Other (Trace edema) - Results Results: Laboratory Results WBC 7.0 x10^3/uL (4.8-10.8) 09/14/21 06:49 RBC 3.78 10^6/uL (4.20-5.40) L 09/14/21 06:49 Hgb 10.9 g/dL (12.0-16.0) L 09/14/21 06:49 Hct 33.9 % (37.0-47.0) L 09/14/21 06:49 MCV 89.7 fL (81.0-99.0) 09/14/21 06:49 MCH 28.8 pg (27.0-31.0) 09/14/21 06:49 MCHC 32.2 g/dL (32.0-36.0) 09/14/21 06:49 RDW 13.3 % (12.0-15.0) 09/14/21 06:49 Plt Count 253 10^3/uL (130-450) 09/14/21 06:49 MPV 9.5 fL (7.9-10.8) 09/14/21 06:49 Neut # (Auto) 4.7 10^3/uL (1.5-6.6) 09/14/21 06:49 Lymph # (Auto) 1.4 10^3/uL (1.5-3.5) L 09/14/21 06:49 Converse # (Auto) 0.7 10^3/uL (0.0-1.0) 09/14/21 06:49 Eos # (Auto) 0.2 10^3/uL (0.0-0.7) 09/14/21 06:49 Baso # (Auto) 0.0 10^3/uL (0.0-0.1) 09/14/21 06:49 Absolute Nucleated RBC 0.00 x10^3/uL 09/14/21 06:49 Nucleated RBC % 0.0 /100WBC 09/14/21 06:49 Bld Gas Analysis Time 2204 09/12/21 22:00 Sample Site LEFT RADIAL 09/12/21 22:00 ABG pH 7.38 (7.35-7.45) 09/12/21 22:00 ABG pCO2 45 mmHg (34-45) 09/12/21 22:00 ABG pO2 71 mmHg (80-100) L 09/12/21 22:00 ABG HCO3 26.2 mmol/L (22.0-26.0) H 09/12/21 22:00 ABG Total CO2 27.6 MMOL/L (21.0-29.0) 09/12/21 22:00 ABG O2 Saturation 94 % (94-98) 09/12/21 22:00 ABG Base Excess 0.8 mmol/L (-2.0-3.0) 09/12/21 22:00 Thien Test POSITIVE 09/12/21 22:00 Room Air YES 09/12/21 22:00 FiO2 21.00 09/12/21 22:00 Sodium 136 mmol/L (135-145) 09/20/21 05:05 Potassium 4.7 mmol/L (3.5-5.0) 09/20/21 05:05 Chloride 101 mmol/L (101-111) 09/20/21 05:05 Carbon Dioxide 26 mmol/L (21-32) 09/20/21 05:05 Anion Gap 9.0 (6-13) 09/20/21 05:05 BUN 40 mg/dL (6-20) H 09/20/21 05:05 Creatinine 2.0 mg/dL (0.4-1.0) H 09/20/21 05:05 Estimated GFR (MDRD) 25 (>89) L 09/20/21 05:05 Glucose 109 mg/dL (70-100) H 09/20/21 05:05 Lactic Acid 1.4 mmol/L (0.5-2.2) 09/12/21 22:31 Calcium 9.4 mg/dL (8.5-10.3) 09/20/21 05:05 Total Bilirubin 0.7 mg/dL (0.2-1.0) 09/12/21 21:35 AST 11 IU/L (10-42) 09/12/21 21:35 ALT < 10 IU/L (10-60) L 09/12/21 21:35 Alkaline Phosphatase 99 IU/L (42-121) 09/12/21 21:35 Troponin I High Sens 11.2 ng/L (2.3-14.8) 09/12/21 21:35 Total Protein 7.9 g/dL (6.7-8.2) 09/12/21: Albumin 3.8 g/dL (3.2-5.5) 09/12/21: Globulin 4.1 g/dL (2.1-4.2) 09/12/21 21: Albumin/Globulin Ratio 0.9 (1.0-2.2) L 09/12/21 21:35 Urine Color YELLOW 09/12/21 21:25 Urine Clarity HAZY (CLEAR) 09/12/21 21: Urine pH 6.0 PH (5.0-7.5) 09/12/21 21: Ur Specific [place] 1.010 (1.002-1.030) 09/12/21 21:25 Urine Protein TRACE mg/dL (NEGATIVE) 09/12/21 21: Urine Glucose (UA) NEGATIVE mg/dL (NEGATIVE) 09/12/21 21: Urine Ketones NEGATIVE mg/dL (NEGATIVE) 09/12/21 21:25 Urine Occult Blood TRACE-INTA (NEGATIVE) 09/12/21 21: Urine Nitrite NEGATIVE (NEGATIVE) 09/12/21 21: Urine Bilirubin NEGATIVE (NEGATIVE) 09/12/21 21: Urine Urobilinogen 0.2 (NORMAL) E.U./dL (NORMAL) 09/12/21 21:25 Ur Leukocyte Esterase MODERATE (NEGATIVE) H 09/12/21 21:25 Urine RBC 0-5 /HPF (0-5) 09/12/21 21:25 Urine WBC >25 /HPF (0-5) H 09/12/21 21:25 Ur Epithelial Cells RARE Transitional /HPF (<= Few) 09/12/21 21:25 Ur Squamous Epith Cells RARE Squamous (<= Few) 09/12/21 21:25 Urine Bacteria Few /HPF (None Seen) 09/12/21 21:25 Urine Culture Comments INDICATED 09/12/21 21:25 Urine Opiates Screen NEGATIVE (NEGATIVE) 09/12/21 21:25 Ur Oxycodone Screen NEGATIVE (NEGATIVE) 09/12/21 21:25 Urine Methadone Screen NEGATIVE (NEGATIVE) 09/12/21 21:25 Ur Propoxyphene Screen NEGATIVE (NEGATIVE) 09/12/21 21:25 Ur Barbiturates Screen NEGATIVE (NEGATIVE) 09/12/21 21:25 Ur Tricyclics Screen NEGATIVE (NEGATIVE) 09/12/21 21:25 Ur Phencyclidine Scrn NEGATIVE (NEGATIVE) 09/12/21 21:25 Ur Amphetamine Screen NEGATIVE (NEGATIVE) 09/12/21 21:25 U Methamphetamines Scrn NEGATIVE (NEGATIVE) 09/12/21 21:25 U Benzodiazepines Scrn NEGATIVE (NEGATIVE) 09/12/21 21:25 Urine Cocaine Screen NEGATIVE (NEGATIVE) 09/12/21 21:25 U Cannabinoids Screen NEGATIVE (NEGATIVE) 09/12/21 21:25 SARS-CoV-2 (PCR) NOT DETECTED 09/13/21 00:25 - Procedures Procedures: Procedures COLONOSCOPY (01/09/13) DRAINAGE OF BLADDER WITH DRAINAGE DEVICE, VIA OPENING (11/25/19)
[2021-09-20] MEDS: ACETAMINOPHEN 325 MG TABLET PO PRN (22:39)
[2021-09-21] MEDS: GABAPENTIN 100 MG CAPSULE PO SCH ×3 (05:21→21:05)
[2021-09-21] MEDS: tiZANidine 4 MG TABLET PO SCH ×3 (05:21→21:05)
[2021-09-21] MEDS: LEVOTHYROXINE 25 MCG TABLET PO SCH (05:21)
[2021-09-21] MEDS: PANTOPRAZOLE 40 MG TABLET PO SCH (05:22)
[2021-09-21] MEDS: ACETAMINOPHEN 325 MG TABLET PO PRN ×3 (05:40→22:05)
[2021-09-21] MEDS: BUPRENORPHINE/NALOXONE 8-2 MG TAB SL SCH ×3 (05:59→22:05)
[2021-09-21] MEDS ORDERED: CALCIUM CARBONATE CHEW 500 MG TABLET PO PRN (06:18)
[2021-09-21] MEDS: polyethylene glycoL 3350 17 GM PACKET PO SCH (09:23)
[2021-09-21] MEDS: DOCUSATE SODIUM 250 MG CAPSULE PO SCH (09:24)
[2021-09-21] MEDS: risperiDONE 1 MG TABLET PO SCH ×2 (09:24→21:05)
[2021-09-21] MEDS: MULTIVITAMIN W/MINERALS TABLET PO SCH (09:24)
[2021-09-21] MEDS: ASPIRIN EC 81 MG TABLET PO SCH (09:24)
[2021-09-21] MEDS: VENLAFAXINE ER 75 MG CAPSULE PO SCH (09:24)
[2021-09-21] MEDS: gemfibroziL 600 MG TABLET PO SCH ×2 (09:24→21:05)
[2021-09-21] MEDS: CHOLECALCIFEROL 25 MCG TABLET PO SCH (09:24)
[2021-09-21] MEDS: METOPROLOL SUCCINATE 25 MG TABLET PO SCH (09:25)
[2021-09-21] MEDS: SENNA 8.6 MG TABLET PO SCH (09:25)
--- NOTE | 2021-09-21 17:26 | PROVIDER PROGRESS NOTE ---
Assessment/Plan - Problem List (1) Bradycardia Assessment/Plan: HR documented in the 40's yesterday and so we decreased her Metoprolol dose from 50 mg daily to 25 mg daily (2) Altered mental status Assessment/Plan: Resolved. She is back to her baseline after being re-admitted and being administered her meds properly and ordered to walk with PT and not lay all day in bed as at home. A cognitive eval was done by OT and she scored 25/30, indicating mildly cognitively impaired. Per , [facility] advised she be made an Inpatient. (3) At risk for unsafe behavior Conclusion/Plan: This is the patient's ninth admission/hospitalization over the past 12 months for the same presentation which is altered mental status which happens when she is at home, but she is stable with adequate mental status when she is cared for at hospital or SNF or our swing bed She lives with her and is unable to care for herself. She has had some in-home providers provided by the [facility]. In spite of that, its been difficult to get her to be compliant with medications as prescribed. (In the past she would overdose with opioids. That issue resolved when opioids were no longer prescribed to her (however she is sti ll on Suboxone). She continues to return to this hospital after misuse of medications causing confusion and obtundation. These presentations also appeared to be from dehydration or UTI. Because of somnolence followed by echolalia, there is more concerned that excessive intake of her psych drug is now the cause for her altered mental status (somnolence, confusion then echolalia). Social work placed an APS report because of the frequent need to be hospitalized for altered mental status caused by drug intake. The patient told me that it is her who is in charge of filling her medication tray for the week, then he brings her the entire tray which she can apparently take as she wishes. It would not be a safe discharge to return back to this home living situation, as evidenced by recurrent re-admissions. The has stated (per SPIKE Ramos) and her caregivers have stated (per [facility] HUAN Perez), that she cannot be taken car of safely at home. In addition, she just fired her in home aide. Perhaps using pharmacy pre-filled "bubble" medication packs should be dispensed for this patient, but she also needs supervision in how many she takes. The patient had a long meeting with Rachel Jonas several days ago and has agreed to be placed in a Intermediate Care facility "to prove that she does not need nursing care". SW is working on her placement. Per , [facility] advised she be made an Inpatient. (4) Bacteriurea Urinalysis revealed leukocyte esterase and WBCs, though sample may have been contaminated. Thus, a UTI was considered to again be contributing to her altered mental status at admission. She has a history of chronic bladder infections. She was started on empiric ceftriaxone. The urine culture has grown no bacteria, thus her antibiotic has been stopped. (5) Acute kidney injury superimposed on CKD Conclusion/Plan: Acute kidney injury is likely a result of dehydration, since she has inability to properly care for herself or be cared for at home. Her creat has plateaued at 1.8-2.1. We are avoid nephrotoxins and watch BMP intermittently. (6) Diabetes mellitus type 2, diet-controlled Conclusion/Plan: Her type 2 DM is well controlled by diet. The patient's HbA1c has been in the mid 5's range for several years. Routine glucose monitoring and insulin use is not warranted during this visit. She is getting a low-carb diet while here. (7) Anemia Conclusion/Plan: Patient has a history of mild anemia. Her hemoglobin and hematocrit levels are not concerning at this time, though they will be monitored during her stay. Qualifiers: Anemia type: unspecified type Qualified Code(s): D64.9 - Anemia, unsp ecified (8) HTN (hypertension) Conclusion/Plan: Patient was not taking home medications for hypertension because of obtundation. Systolic BP was elevated at admission and her home meds have been resumed, now that she is awake and can swallow, in addition to prn iv Hydralazine (9) Shingles Conclusion/Plan: Crusted, painful vesicular rash on the patient's left flank is likely to be shingles. The lesion was covered by a bandage and will be further addressed if indicated. (10) Bipolar disorder We resumed her usual home p.o. meds. She asked about Li today, but she has not been on [place] since summer, per our Pharmacist, Stepan. This is not a medication to be started here, and it needs long-term follow-up. She needs her psychiatrist or general medicine doctor to oversee any new [place] use (11) Echolalia Conclusion/Plan: Resolved Echolalia is a global HOME SPECIALIST abnormality, not a focal one and can occur when psych meds are taken in excess, which is the suspected culprit here.. Because of yesterday's somnolence followed by kalpana, there is more concern that excessive drug intake was the cause for her altered mental status with somnolence and confusion followed by kalpana Social work has placed an APS report because of the frequent need to be hospitalized for altered mental status. She lives with her who is in charge of filling her medication tray for the week, but she opens the tray and takes the meds by herself. It is not a safe discharge to return back to this location. We have asked for SW help regarding safe [facility] location. - Current Meds Current Meds: Current Medications Generic Name Dose Route Start Last Admin Trade Name Freq PRN Reason Stop Dose Admin Acetaminophen 650 mg 09/13/21 01:04 09/21/21 09:31 Acetaminophen 325 Mg Tablet PO 650 mg Q4HR PRN Administration Pain 1 to 4, or Fever Aspirin 81 mg 09/15/21 09:00 09/21/21 09:24 Aspirin Ec 81 Mg Tablet PO 81 mg DAILY JARETT Administration Buprenorphine HCl 1 tab 09/14/21 22:00 09/21/21 14:40 Buprenorphine/Naloxone 8-2 Mg Tab SL 1 tab TID JARETT Administration Calcium Carbonate/Glycine 500 mg 09/21/21 06:18 09/21/21 16:18 Calcium Carbonate Chew 500 Mg Tablet PO 500 mg TID PRN Administration Heartburn Carboxymethylcellulose 1 drops 09/14/21 19:22 09/15/21 07:45 Carboxymethylcellulose Ophth Drops EACHEYE 1 drops PRN PRN Administration Dry Eye Cholecalciferol 25 mcg 09/15/21 09:00 09/21/21 09:24 Cholecalciferol 25 Mcg Tablet PO 25 mcg DAILY JARETT Administration Docusate Sodium 250 - 500 mg 09/14/21 09:00 09/21/21 09:24 Docusate Sodium 250 Mg Capsule PO 250 mg DAILY JARETT Administration Gabapentin 100 mg 09/13/21 23:00 09/21/21 14:40 Gabapentin 100 Mg Capsule PO 100 mg TID JARETT Administration Gemfibrozil 600 mg 09/14/21 21:00 09/21/21 09:24 Gemfibrozil 600 Mg Tablet PO 600 mg BID JARETT Administration Levothyroxine Sodium 50 mcg 09/15/21 07:00 09/21/21 05:21 Levothyroxine 25 Mcg Tablet PO 50 mcg QDAC JARETT Administration Lorazepam 0.5 mg 09/14/21 18:45 09/15/21 10:35 Lorazepam 0.5 Mg Tablet PO 0.5 mg BID PRN Administration Anxiety Metoprolol Succinate 25 mg 09/21/21 09:00 09/21/21 09:25 Metoprolol Succinate 25 Mg Tablet PO 25 mg DAILY JARETT Administration Multi-Ingredient Ointment 1 applic 09/14/21 18:45 09/18/21 21:15 Zinc Oxide 20% Oint 30 Gm Tube TOP 1 applic PRN PRN Administration Skin Care Multivitamins/Minerals 1 tab 09/17/21 08:00 09/21/21 09:24 Multivitamin W/Minerals Tablet PO 1 tab DAILYWM JARETT Administration Ondansetron HCl 4 mg 09/13/21 01:04 09/14/21 20:24 Ondansetron 4 Mg/2 Ml Vial IVP 4 mg Q6HR PRN Administration Nausea / Vomiting Pantoprazole Sodium 40 mg 09/15/21 07:00 09/21/21 05:22 Pantoprazole 40 Mg Tablet PO 40 mg QDAC JARETT Administration Polyethylene Glycol 17 gm 09/14/21 09:00 09/21/21 09:23 Polyethylene Glycol 3350 17 Gm Packet PO 17 gm DAILY JARETT Administration Prochlorperazine Edisylate 10 mg 09/14/21 19:40 09/14/21 22:45 Prochlorperazine 10 Mg/2 Ml Vial IVP 10 mg Q6HR PRN Administration Nausea / Vomiting Risperidone 1 mg 09/13/21 23:00 09/21/21 09:24 Risperidone 1 Mg Tablet PO 1 mg BID JARETT Administration Senna 8.6 - 17.2 mg 09/14/21 09:00 09/21/21 09:25 Senna 8.6 Mg Tablet PO 8.6 mg DAILY JARETT Administration Tizanidine HCl 2 mg 09/14/21 22:00 09/21/21 14:40 Tizanidine 4 Mg Tablet PO 2 mg TID JARETT Administration Venlafaxine HCl 150 mg 09/15/21 09:00 09/21/21 09:24 Venlafaxine Er 75 Mg Capsule PO 150 mg DAILY JARETT Administration - Lab Result Fish Bone Diagrams: 09/14/21 06:49 09/20/21 05:05 - Additional Planning My Orders: My Active Orders 09/21/21 09:00 Metoprolol Succinate [Toprol Xl] 25 mg PO DAILY Subjective - Subjective Patient Reports: Other (Wants to know why she is no longer on [place] for bipolar disoder) Objective Vital Signs: Vital Signs - 24 hr 09/21/21 09/21/21 08:22 16:21 Temperature 36.7 C 36.4 C L Heart Rate [ 65 60 Brachial] Respiratory 20 18 Rate Blood Pressure 131/61 H 163/59 H [Right Brachial artery] O2 Saturation 95 96 Oxygen O2 Source [Without Activity] Room air O2 Source Room air I&O (Last 24 Hrs): Intake and Output Totals x24h 09/19/21 09/20/21 09/21/21 23:59 23:59 23:59 Intake Total 2370 2570 940 Output Total 2876 2400 600 Balance -506 170 340 General: Alert HEENT: Mucous membr. moist/pink Neck: Supple Neuro: Alert, Non Focal Cardiovascular: No murmurs Respiratory: No respiratory distress Abdomen: Soft Extremities: Other (Trace edema) - Results Results: Laboratory Results WBC 7.0 x10^3/uL (4.8-10.8) 09/14/21 06:49 RBC 3.78 10^6/uL (4.20-5.40) L 09/14/21 06:49 Hgb 10.9 g/dL (12.0-16.0) L 09/14/21 06:49 Hct 33.9 % (37.0-47.0) L 09/14/21 06:49 MCV 89.7 fL (81.0-99.0) 09/14/21 06:49 MCH 28.8 pg (27.0-31.0) 09/14/21 06:49 MCHC 32.2 g/dL (32.0-36.0) 09/14/21 06:49 RDW 13.3 % (12.0-15.0) 09/14/21 06:49 Plt Count 253 10^3/uL (130-450) 09/14/21 06:49 MPV 9.5 fL (7.9-10.8) 09/14/21 06:49 Neut # (Auto) 4.7 10^3/uL (1.5-6.6) 09/14/21 06:49 Lymph # (Auto) 1.4 10^3/uL (1.5-3.5) L 09/14/21 06:49 Perkins # (Auto) 0.7 10^3/uL (0.0-1.0) 09/14/21 06:49 Eos # (Auto) 0.2 10^3/uL (0.0-0.7) 09/14/21 06:49 Baso # (Auto) 0.0 10^3/uL (0.0-0.1) 09/14/21 06:49 Absolute Nucleated RBC 0.00 x10^3/uL 09/14/21 06:49 Nucleated RBC % 0.0 /100WBC 09/14/21 06:49 Bld Gas Analysis Time 220309/12/21 22:00 Sample Site LEFT RADIAL 09/12/21 22:00 ABG pH 7.38 (7.35-7.45) 09/12/21 22:00 ABG pCO2 45 mmHg (34-45) 09/12/21 22:00 ABG pO2 71 mmHg (80-100) L 09/12/21 22:00 ABG HCO3 26.2 mmol/L (22.0-26.0) H 09/12/21 22:00 ABG Total CO2 27.6 MMOL/L (21.0-29.0) 09/12/21 22:00 ABG O2 Saturation 94 % (94-98) 09/12/21 22:00 ABG Base Excess 0.8 mmol/L (-2.0-3.0) 09/12/21 22:00 Thien Test POSITIVE 09/12/21 22:00 Room Air YES 09/12/21 22:00 FiO2 21.00 09/12/21 22:00 Sodium 136 mmol/L (135-145) 09/20/21 05:05 Potassium 4.7 mmol/L (3.5-5.0) 09/20/21 05:05 Chloride 101 mmol/L (101-111) 09/20/21 05:05 Carbon Dioxide 26 mmol/L (21-32) 09/20/21 05:05 Anion Gap 9.0 (6-13) 09/20/21 05:05 BUN 40 mg/dL (6-20) H 09/20/21 05:05 Creatinine 2.0 mg/dL (0.4-1.0) H 09/20/21 05:05 Estimated GFR (MDRD) 25 (>89) L 09/20/21 05:05 Glucose 109 mg/dL (70-100) H 09/20/21 05:05 Lactic Acid 1.4 mmol/L (0.5-2.2) 09/12/21 22:31 Calcium 9.4 mg/dL (8.5-10.3) 09/20/21 05:05 Total Bilirubin 0.7 mg/dL (0.2-1.0) 09/12/21 21:35 AST 11 IU/L (10-42) 09/12/21 21:35 ALT < 10 IU/L (10-60) L 09/12/21 21:35 Alkaline Phosphatase 99 IU/L (42-121) 09/12/21 21:35 Troponin I High Sens 11.2 ng/L (2.3-14.8) 09/12/21 21:35 Total Protein 7.9 g/dL (6.7-8.2) 09/12/21 21:35 Albumin 3.8 g/dL (3.2-5.5) 09/12/21 21:35 Globulin 4.1 g/dL (2.1-4.2) 09/12/21 21:35 Albumin/Globulin Ratio 0.9 (1.0-2.2) L 09/12/21 21:35 Urine Color YELLOW 09/12/21 21:25 Urine Clarity HAZY (CLEAR) 09/12/21 21:25 Urine pH 6.0 PH (5.0-7.5) 09/12/21 21:25 Ur Specific [place] 1.010 (1.002-1.030) 09/12/21 21:25 Urine Protein TRACE mg/dL (NEGATIVE) 09/12/21 21:25 Urine Glucose (UA) NEGATIVE mg/dL (NEGATIVE) 09/12/21 21:25 Urine Ketones NEGATIVE mg/dL (NEGATIVE) 09/12/21 21:25 Urine Occult Blood TRACE-INTA (NEGATIVE) 09/12/21 21:25 Urine Nitrite NEGATIVE (NEGATIVE) 09/12/21 21:25 Urine Bilirubin NEGATIVE (NEGATIVE) 09/12/21 21:25 Urine Urobilinogen 0.2 (NORMAL) E.U./dL (NORMAL) 09/12/21 21:25 Ur Leukocyte Esterase MODERATE (NEGATIVE) H 09/12/21 21:25 Urine RBC 0-5 /HPF (0-5) 09/12/21 21:25 Urine WBC >25 /HPF (0-5) H 09/12/21 21:25 Ur Epithelial Cells RARE Transitional /HPF (<= Few) 09/12/21 21:25 Ur Squamous Epith Cells RARE Squamous (<= Few) 09/12/21 21:25 Urine Bacteria Few /HPF (None Seen) 09/12/21 21:25 Urine Culture Comments INDICATED 09/12/21 21:25 Urine Opiates Screen NEGATIVE (NEGATIVE) 09/12/21 21:25 Ur Oxycodone Screen NEGATIVE (NEGATIVE) 09/12/21 21:25 Urine Methadone Screen NEGATIVE (NEGATIVE) 09/12/21 21:25 Ur Propoxyphene Screen NEGATIVE (NEGATIVE) 09/12/21 21:25 Ur Barbiturates Screen NEGATIVE (NEGATIVE) 09/12/21 21:25 Ur Tricyclics Screen NEGATIVE (NEGATIVE) 09/12/21 21:25 Ur Phencyclidine Scrn NEGATIVE (NEGATIVE) 09/12/21 21:25 Ur Amphetamine Screen NEGATIVE (NEGATIVE) 09/12/21 21:25 U Methamphetamines Scrn NEGATIVE (NEGATIVE) 09/12/21 21:25 U Benzodiazepines Scrn NEGATIVE (NEGATIVE) 09/12/21 21:25 Urine Cocaine Screen NEGATIVE (NEGATIVE) 09/12/21 21:25 U Cannabinoids Screen NEGATIVE (NEGATIVE) 09/12/21 21:25 SARS-CoV-2 (PCR) NOT DETECTED 09/13/21 00:25 - Procedures Procedures: Procedures COLONOSCOPY (01/09/13) DRAINAGE OF BLADDER WITH DRAINAGE DEVICE, VIA OPENING (11/25/19)
[2021-09-22] MEDS: tiZANidine 4 MG TABLET PO SCH ×3 (06:05→21:19)
[2021-09-22] MEDS: PANTOPRAZOLE 40 MG TABLET PO SCH (06:05)
[2021-09-22] MEDS: LEVOTHYROXINE 25 MCG TABLET PO SCH (06:06)
[2021-09-22] MEDS: GABAPENTIN 100 MG CAPSULE PO SCH ×3 (06:06→21:19)
[2021-09-22] MEDS: BUPRENORPHINE/NALOXONE 8-2 MG TAB SL SCH ×3 (06:24→21:19)
[2021-09-22] MEDS: CHOLECALCIFEROL 25 MCG TABLET PO SCH (08:22)
[2021-09-22] MEDS: gemfibroziL 600 MG TABLET PO SCH ×2 (08:22→21:19)
[2021-09-22] MEDS: polyethylene glycoL 3350 17 GM PACKET PO SCH (08:23)
[2021-09-22] MEDS: MULTIVITAMIN W/MINERALS TABLET PO SCH (08:23)
[2021-09-22] MEDS: risperiDONE 1 MG TABLET PO SCH ×2 (08:23→21:19)
[2021-09-22] MEDS: DOCUSATE SODIUM 250 MG CAPSULE PO SCH (08:23)
[2021-09-22] MEDS: METOPROLOL SUCCINATE 25 MG TABLET PO SCH (08:23)
[2021-09-22] MEDS: VENLAFAXINE ER 75 MG CAPSULE PO SCH (08:23)
[2021-09-22] MEDS: ACETAMINOPHEN 325 MG TABLET PO PRN (08:23)
[2021-09-22] MEDS: ASPIRIN EC 81 MG TABLET PO SCH (08:23)
[2021-09-22] MEDS: SENNA 8.6 MG TABLET PO SCH (08:23)
[2021-09-22] MEDS: NYSTATIN POWDER 15 GM TOP SCH ×2 (08:24→21:19)
--- NOTE | 2021-09-22 18:56 | PROVIDER PROGRESS NOTE ---
Assessment/Plan - Problem List (1) Acute kidney injury superimposed on CKD Assessment/Plan: Acute kidney injury is likely a result of dehydration, since she has inability to properly care for herself or be cared for at home. Her creat has plateaued at 1.8-2.1. We are avoid nephrotoxins and watching BMP intermittently. (2) Altered mental status Assessment/Plan: Resolved. She is back to her baseline after being re-admitted and being administered her meds properly and ordered to walk with PT and not lay in bed as she does when at home. A cognitive eval was done by OT and she scored 25/30, indicating mildly cognitively impaired. Per , [facility] advised she be made an Inpatient. (3) At risk for unsafe behavior Conclusion/Plan: This is the patient's ninth admission/hospitalization over the past 12 months for the same presentation which is altered mental status which happens when she is at home, but she is stable with adequate mental status when she is cared for at hospital or SNF or our swing bed She lives with her and is unable to care for herself. She has had some in-home providers provided by the [facility]. In spite of that, its been difficult to get her to be compliant with medications as prescribed. (In the past she would overdose with opioids. That issue resolved when opioids were no longer prescribed to her (however she is still on Suboxone). She continues to return to this hospital after misuse of medications causing confusion and obtundation. These presentations also appeared to be from dehydration or UTI. Because of somnolence followed by echolalia, there is more concerned that excessive intake of her psych drug is now the cause for her altered mental status (somnolence, confusion then echolalia). Social work placed an APS report because of the frequent need to be hospitalized for altered mental status caused by drug intake. The patient told me that it is her who is in charge of filling her medication tray for the week, then he brings her the entire tray which she can apparently take as she wishes. It would not be a safe discharge to return back to this home living situation, as evidenced by recurrent re-admissions. The has stated (per SPIKE Ramos) and her caregivers have stated (per [facility] HUAN Perez), that she cannot be taken car of safely at home. In addition, she just fired her home administrator. The patient had a long meeting with Rachel Jonas several days ago and has agreed to be placed in a Shelter Care facility "to prove that she does not need nursing care". SW is working on her placement. Per , [facility] advised she be made an Inpatient. (4) Bipolar disorder We resumed her usual home p.o. meds. She asked about Li yesterday, but she has not been on Agricola since summer, per our Pharmacist, Stepan. This is not a medication to be started here, as it needs long-term follow-up. She needs her psychiatrist or general medicine doctor to oversee any new Agricola use (5) Diabetes mellitus type 2, diet-controlled Conclusion/Plan: Her type 2 DM is well controlled by diet. The patient's HbA1c has been in the mid 5's range for several years. Routine glucose monitoring and insulin use is not warranted during this visit. She is getting a low-carb diet while here. (6) Anemia Conclusion/Plan: Patient has a history of mild anemia. Her hemoglobin and hematocrit levels are not concerning at this time, though they will be monitored during her stay. Qualifiers: Anemia type: unspecified type Qualified Code(s): D64.9 - Anemia, unspecified (7) HTN (hypertension) Conclusion/Plan: Patient was not taking home medications for hypertension because of obtundation. Systolic BP was elevated at admission and her home meds have been resumed, now that she is awake and can swallow, in addition to prn iv Hydralazine (8) Shingles Conclusion/Plan: Crusted, painful vesicular rash was present at admission on the patient's left flank, likely to be shingles. The lesion was covered by a bandage and will be further addressed if indicated. (9) Bacteriurea Urinalysis revealed leukocyte esterase and WBCs, though sample may have been contaminated. Thus, a UTI was considered to again be contributing to her altered mental status at admission. She has a history of chronic bladder infections. She was started on empiric ceftriaxone. The urine culture has grown no bacteria, thus her antibiotic has been stopped. (10) Echolalia Conclusion/Plan: Resolved Echolalia is a global SEARCH SPECIALIST abnormality, not a focal one and can occur when psych meds are taken in excess, which is the suspected culprit here.. Because of yesterday's somnolence followed by kalpana, there is more concern that excessive drug intake was the cause for her altered mental status with juan daniel nolence and confusion followed by kalpana Social work has placed an APS report because of the frequent need to be hospitalized for altered mental status. She lives with her who is in charge of filling her medication tray for the week, but she opens the tray and takes the meds by herself. It is not a safe discharge to return back to this location. We have asked for SW help regarding safe [facility] location. (11) Bradycardia Assessment/Plan: Resolved. HR documented in the 40's so we decreased her Metoprolol dose from 50 mg daily to 25 mg daily - Current Meds Current Meds: Current Medications Generic Name Dose Route Start Last Admin Trade Name Freq PRN Reason Stop Dose Admin Acetaminophen 650 mg 09/13/21 01:04 09/22/21 08:23 Acetaminophen 325 Mg Tablet PO 650 mg Q4HR PRN Administration Pain 1 to 4, or Fever Aspirin 81 mg 09/15/21 09:00 09/22/21 08:23 Aspirin Ec 81 Mg Tablet PO 81 mg DAILY JARETT Administration Buprenorphine HCl 1 tab 09/14/21 22:00 09/22/21 13:45 Buprenorphine/Naloxone 8-2 Mg Tab SL 1 tab TID JARETT Administration Calcium Carbonate/Glycine 500 mg 09/21/21 06:18 09/21/21 16:18 Calcium Carbonate Chew 500 Mg Tablet PO 500 mg TID PRN Administration Heartburn Carboxymethylcellulose 1 drops 09/14/21 19:22 09/15/21 07:45 Carboxymethylcellulose Ophth Drops EACHEYE 1 drops PRN PRN Administration Dry Eye Cholecalciferol 25 mcg 09/15/21 09:00 09/22/21 08:22 Cholecalciferol 25 Mcg Tablet PO 25 mcg DAILY JARETT Administration Docusate Sodium 250 - 500 mg 09/14/21 09:00 09/22/21 08:23 Docusate Sodium 250 Mg Capsule PO 250 mg DAILY JARETT Administration Gabapentin 100 mg 09/13/21 23:00 09/22/21 13:20 Gabapentin 100 Mg Capsule PO 100 mg TID JARETT Administration Gemfibrozil 600 mg 09/14/21 21:00 09/22/21 08:22 Gemfibrozil 600 Mg Tablet PO 600 mg BID JARETT Administration Levothyroxine Sodium 50 mcg 09/15/21 07:00 09/22/21 06:06 Levothyroxine 25 Mcg Tablet PO 50 mcg QDAC JARETT Administration Lorazepam 0.5 mg 09/14/21 18:45 09/15/21 10:35 Lorazepam 0.5 Mg Tablet PO 0.5 mg BID PRN Administration Anxiety Metoprolol Succinate 25 mg 09/21/21 09:00 09/22/21 08:23 Metoprolol Succinate 25 Mg Tablet PO Not Given DAILY JARETT Multi-Ingredient Ointment 1 applic 09/14/21 18:45 09/18/21 21:15 Zinc Oxide 20% Oint 30 Gm Tube TOP 1 applic PRN PRN Administration Skin Care Multivitamins/Minerals 1 tab 09/17/21 08:00 09/22/21 08:23 Multivitamin W/Minerals Tablet PO 1 tab DAILYWM JARETT Administration Nystatin 1 applic 09/22/21 09:00 09/22/21 08:24 Nystatin Powder 15 Gm TOP 1 applic BID JARETT Administration Ondansetron HCl 4 mg 09/13/21 01:04 09/14/21 20:24 Ondansetron 4 Mg/2 Ml Vial IVP 4 mg Q6HR PRN Administration Nausea / Vomiting Pantoprazole Sodium 40 mg 09/15/21 07:00 09/22/21 06:05 Pantoprazole 40 Mg Tablet PO 40 mg QDAC JARETT Administration Polyethylene Glycol 17 gm 09/14/21 09:00 09/22/21 08:23 Polyethylene Glycol 3350 17 Gm Packet PO 17 gm DAILY JARETT Administration Prochlorperazine Edisylate 10 mg 09/14/21 19:40 09/14/21 22:45 Prochlorperazine 10 Mg/2 Ml Vial IVP 10 mg Q6HR PRN Administration Nausea / Vomiting Risperidone 1 mg 09/13/21 23:00 09/22/21 08:23 Risperidone 1 Mg Tablet PO 1 mg BID JARETT Administration Senna 8.6 - 17.2 mg 09/14/21 09:00 09/22/21 08:23 Senna 8.6 Mg Tablet PO 17.2 mg DAILY JARETT Administration Tizanidine HCl 2 mg 09/14/21 22:00 09/22/21 13:20 Tizanidine 4 Mg Tablet PO 2 mg TID JARETT Administration Venlafaxine HCl 150 mg 09/15/21 09:00 09/22/21 08:23 Venlafaxine Er 75 Mg Capsule PO 150 mg DAILY JARETT Administration - Lab Result Fish Bone Diagrams: 09/14/21 06:49 09/20/21 05:05 Subjective - Subjective Patient Reports: No Complaints Objective Vital Signs: Vital Signs - 24 hr 09/22/21 09/22/21 07:41 16:02 Temperature 36.3 C L 36.4 C L Heart Rate [ 51 L 68 Brachial] Respiratory 14 16 Rate Blood Pressure 114/61 148/51 H [Right Brachial artery] O2 Saturation 94 95 Oxygen O2 Source [Without Activity] Room air O2 Source Room air I&O (Last 24 Hrs): Intake and Output Totals x24h 09/20/21 09/21/21 09/22/21 23:59 23:59 23:59 Intake Total 2570 1530 1180 Output Total 2400 2200 700 Balance 170 -670 480 General: Alert, Oriented x3 HEENT: Mucous membr. moist/pink Neck: No JVD Neuro: Alert, Non Focal Cardiovascular: Regular rate Respiratory: No respiratory distress Abdomen: Soft Extremities: Other (Trace edema) - Results Results: Laboratory Results WBC 7.0 x10^3/uL (4.8-10.8) 09/14/21 06:49 RBC 3.78 10^6/uL (4.20-5.40) L 09/14/21 06:49 Hgb 10.9 g/dL (12.0-16.0) L 09/14/21 06:49 Hct 33.9 % (37.0-47.0) L 09/14/21 06:49 MCV 89.7 fL (81.0-99.0) 09/14/21 06:49 MCH 28.8 pg (27.0-31.0) 09/14/21 06:49 MCHC 32.2 g/dL (32.0-36.0) 09/14/21 06:49 RDW 13.3 % (12.0-15.0) 09/14/21 06:49 Plt Count 253 10^3/uL (130-450) 09/14/21 06:49 MPV 9.5 fL (7.9-10.8) 09/14/21 06:49 Neut # (Auto) 4.7 10^3/uL (1.5-6.6) 09/14/21 06:49 Lymph # (Auto) 1.4 10^3/uL (1.5-3.5) L 09/14/21 06:49 [place] # (Auto) 0.7 10^3/uL (0.0-1.0) 09/14/21 06:49 Eos # (Auto) 0.2 10^3/uL (0.0-0.7) 09/14/21 06:49 Baso # (Auto) 0.0 10^3/uL (0.0-0.1) 09/14/21 06:49 Absolute Nucleated RBC 0.00 x10^3/uL 09/14/21 06:49 Nucleated RBC % 0.0 /100WBC 09/14/21 06:49 Bld Gas Analysis Time 2204 09/12/21 22:00 Sample Site LEFT RADIAL 09/12/21 22:00 ABG pH 7.38 (7.35-7.45) 09/12/21 22:00 ABG pCO2 45 mmHg (34-45) 09/12/21 22:00 ABG pO2 71 mmHg (80-100) L 09/12/21 22:00 ABG HCO3 26.2 mmol/L (22.0-26.0) H 09/12/21 22:00 ABG Total CO2 27.6 MMOL/L (21.0-29.0) 09/12/21 22:00 ABG O2 Saturation 94 % (94-98) 09/12/21 22:00 ABG Base Excess 0.8 mmol/L (-2.0-3.0) 09/12/21 22:00 Thien Test POSITIVE 09/12/21 22:00 Room Air YES 09/12/21 22:00 FiO2 21.00 09/12/21 22:00 Sodium 136 mmol/L (135-145) 09/20/21 05:05 Potassium 4.7 mmol/L (3.5-5.0) 09/20/21 05:05 Chloride 101 mmol/L (101-111) 09/20/21 05:05 Carbon Dioxide 26 mmol/L (21-32) 09/20/21 05:05 Anion Gap 9.0 (6-13) 09/20/21 05:05 BUN 40 mg/dL (6-20) H 09/20/21 05:05 Creatinine 2.0 mg/dL (0.4-1.0) H 09/20/21 05:05 Estimated GFR (MDRD) 25 (>89) L 09/20/21 05:05 Glucose 109 mg/dL (70-100) H 09/20/21 05:05 Lactic Acid 1.4 mmol/L (0.5-2.2) 09/12/21 22:31 Calcium 9.4 mg/dL (8.5-10.3) 09/20/21 05:05 Total Bilirubin 0.7 mg/dL (0.2-1.0) 09/12/21 21:35 AST 11 IU/L (10-42) 09/12/21 21:35 ALT < 10 IU/L (10-60) L 09/12/21 21:35 Alkaline Phosphatase 99 IU/L (42-121) 09/12/21 21:35 Troponin I High Sens 11.2 ng/L (2.3-14.8) 09/12/21 21:35 Total Protein 7.9 g/dL (6.7-8.2) 09/12/21 21:35 Albumin 3.8 g/dL (3.2-5.5) 09/12/21 21:35 Globulin 4.1 g/dL (2.1-4.2) 09/12/21 21:35 Albumin/Globulin Ratio 0.9 (1.0-2.2) L 09/12/21 21:35 Urine Color YELLOW 09/12/21 21:25 Urine Clarity HAZY (CLEAR) 09/12/21 21:25 Urine pH 6.0 PH (5.0-7.5) 09/12/21 21:25 Ur Specific [place] 1.010 (1.002-1.030) 09/12/21 21:25 Urine Protein TRACE mg/dL (NEGATIVE) 09/12/21 21:25 Urine Glucose (UA) NEGATIVE mg/dL (NEGATIVE) 09/12/21 21:25 Urine Ketones NEGATIVE mg/dL (NEGATIVE) 09/12/21 21:25 Urine Occult Blood TRACE-INTA (NEGATIVE) 09/12/21 21:25 Urine Nitrite NEGATIVE (NEGATIVE) 09/12/21 21:25 Urine Bilirubin NEGATIVE (NEGATIVE) 09/12/21 21:25 Urine Urobilinogen 0.2 (NORMAL) E.U./dL (NORMAL) 09/12/21 21:25 Ur Leukocyte Esterase MODERATE (NEGATIVE) H 09/12/21 21:25 Urine RBC 0-5 /HPF (0-5) 09/12/21 21:25 Urine WBC >25 /HPF (0-5) H 09/12/21 21:25 Ur Epithelial Cells RARE Transitional /HPF (<= Few) 09/12/21 21:25 Ur Squamous Epith Cells RARE Squamous (<= Few) 09/12/21 21:25 Urine Bacteria Few /HPF (None Seen) 09/12/21 21:25 Urine Culture Comments INDICATED 09/12/21 21:25 Urine Opiates Screen NEGATIVE (NEGATIVE) 09/12/21 21:25 Ur Oxycodone Screen NEGATIVE (NEGATIVE) 09/12/21 21:25 Urine Methadone Screen NEGATIVE (NEGATIVE) 09/12/21 21:25 Ur Propoxyphene Screen NEGATIVE (NEGATIVE) 09/12/21 21:25 Ur Barbiturates Screen NEGATIVE (NEGATIVE) 09/12/21 21:25 Ur Tricyclics Screen NEGATIVE (NEGATIVE) 09/12/21 21:25 Ur Phencyclidine Scrn NEGATIVE (NEGATIVE) 09/12/21 21:25 Ur Amphetamine Screen NEGATIVE (NEGATIVE) 09/12/21 21:25 U Methamphetamines Scrn NEGATIVE (NEGATIVE) 09/12/21 21:25 U Benzodiazepines Scrn NEGATIVE (NEGATIVE) 09/12/21 21:25 Urine Cocaine Screen NEGATIVE (NEGATIVE) 09/12/21 21:25 U Cannabinoids Screen NEGATIVE (NEGATIVE) 09/12/21 21:25 SARS-CoV-2 (PCR) NOT DETECTED 09/13/21 00:25 - Procedures Procedures: Procedures COLONOSCOPY (01/09/13) DRAINAGE OF BLADDER WITH DRAINAGE DEVICE, VIA OPENING (11/25/19)
[2021-09-23] MEDS: GABAPENTIN 100 MG CAPSULE PO SCH ×3 (04:48→22:12)
[2021-09-23] MEDS: LEVOTHYROXINE 25 MCG TABLET PO SCH (04:49)
[2021-09-23] MEDS: tiZANidine 4 MG TABLET PO SCH ×3 (04:49→22:10)
[2021-09-23] MEDS: PANTOPRAZOLE 40 MG TABLET PO SCH (04:49)
[2021-09-23] MEDS: BUPRENORPHINE/NALOXONE 8-2 MG TAB SL SCH ×3 (05:12→22:53)
[2021-09-23] MEDS: VENLAFAXINE ER 75 MG CAPSULE PO SCH (08:08)
[2021-09-23] MEDS: SENNA 8.6 MG TABLET PO SCH (08:08)
[2021-09-23] MEDS: risperiDONE 1 MG TABLET PO SCH ×2 (08:08→22:15)
[2021-09-23] MEDS: gemfibroziL 600 MG TABLET PO SCH ×2 (08:08→22:11)
[2021-09-23] MEDS: CHOLECALCIFEROL 25 MCG TABLET PO SCH (08:08)
[2021-09-23] MEDS: MULTIVITAMIN W/MINERALS TABLET PO SCH (08:08)
[2021-09-23] MEDS: ACETAMINOPHEN 325 MG TABLET PO PRN ×3 (08:08→22:10)
[2021-09-23] MEDS: ASPIRIN EC 81 MG TABLET PO SCH (08:08)
[2021-09-23] MEDS: DOCUSATE SODIUM 250 MG CAPSULE PO SCH (08:09)
[2021-09-23] MEDS: polyethylene glycoL 3350 17 GM PACKET PO SCH (08:09)
[2021-09-23] MEDS: METOPROLOL SUCCINATE 25 MG TABLET PO SCH (08:09)
[2021-09-23] MEDS: NYSTATIN POWDER 15 GM TOP SCH ×2 (08:09→22:08)
[2021-09-23] MEDS: LORazepam 0.5 MG TABLET PO PRN (10:16)
--- NOTE | 2021-09-23 11:22 | PROVIDER PROGRESS NOTE ---
Subjective - Prog Note Date Prog Note Date: 09/23/21 Prog Note Time: 11:00 - Subjective Pt reports feeling: Improved Subjective: Ms. Alberto reports that she is feeling better overall and is waiting to transfer to a snf or nursing facility at this time, which is being coordinated by social work. The patient states that she does not need to stay in either setting indefinitely, but that she is fit to live at home. She states that previous admissions were due to urinary tract infections, side effects of medication interactions, and that she was never admitted for opioid overdose, stating that her medical record will show otherwise. Ms. Alberto voiced her discontent with her low sodium diet and that her diet be changed to a regular diet with no restrictions. She has no other concerns at this time. Current Medications - Current Medications Current Medications: Active Medications Acetaminophen (Acetaminophen 325 Mg Tablet) 650 mg PO Q4HR PRN PRN Reason: Pain 1 to 4, or Fever Last Admin: 09/23/21 08:08 Dose: 650 mg Aspirin (Aspirin Ec 81 Mg Tablet) 81 mg PO DAILY [facility] [place] Last Admin: 09/23/21 08:08 Dose: 81 mg Buprenorphine HCl (Buprenorphine/Naloxone 8-2 Mg Tab) 1 tab SL TID [facility] Last Admin: 09/23/21 05:12 Dose: 1 tab Calcium Carbonate/Glycine (Calcium Carbonate Chew 500 Mg Tablet) 500 mg PO TID PRN PRN Reason: Heartburn Last Admin: 09/21/21 16:18 Dose: 500 mg Carboxymethylcellulose (Carboxymethylcellulose Ophth Drops) 1 drops EACHEYE PRN PRN PRN Reason: Dry Eye Last Admin: 09/15/21 07:45 Dose: 1 drops Cholecalciferol (Cholecalciferol 25 Mcg Tablet) 25 mcg PO DAILY [facility] Last Admin: 09/23/21 08:08 Dose: 25 mcg Docusate Sodium (Docusate Sodium 250 Mg Capsule) 250 - 500 mg PO DAILY [facility] [place] Last Admin: 09/23/21 08:09 Dose: Not Given Gabapentin (Gabapentin 100 Mg Capsule) 100 mg PO TID [facility] [place] Last Admin: 09/23/21 04:48 Dose: 100 mg Gemfibrozil (Gemfibrozil 600 Mg Tablet) 600 mg PO BID [facility] Last Admin: 09/23/21 08:08 Dose: 600 mg Levothyroxine Sodium (Levothyroxine 25 Mcg Tablet) 50 mcg PO QDAC [facility] [place] Last Admin: 09/23/21 04:49 Dose: 50 mcg Lorazepam (Lorazepam 0.5 Mg Tablet) 0.5 mg PO BID PRN PRN Reason: Anxiety Last Admin: 09/23/21 10:16 Dose: 0.5 mg Metoprolol Succinate (Metoprolol Succinate 25 Mg Tablet) 25 mg PO DAILY [facility] Last Admin: 09/23/21 08:09 Dose: 25 mg Mineral Oil (Min Oil/Dimethicon/Coconut Oil 92 Gm Tube) 1 applic TOP PRN PRN PRN Reason: Skin Care Multi-Ingredient Ointment (Zinc Oxide 20% Oint 30 Gm Tube) 1 applic TOP PRN PRN PRN Reason: Skin Care Last Admin: 09/18/21 21:15 Dose: 1 applic Multivitamins/Minerals (Multivitamin W/Minerals Tablet) 1 tab PO DAILYWM [facility] Last Admin: 09/23/21 08:08 Dose: 1 tab Nystatin (Nystatin Powder 15 Gm) 1 applic TOP BID [facility] Last Admin: 09/23/21 08:09 Dose: 1 applic Ondansetron HCl (Ondansetron Odt 4 Mg Tablet) 4 mg TL Q6HR PRN PRN Reason: Nausea / Vomiting Ondansetron HCl (Ondansetron 4 Mg/2 Ml Vial) 4 mg IVP Q6HR PRN PRN Reason: Nausea / Vomiting Last Admin: 09/14/21 20:24 Dose: 4 mg Pantoprazole Sodium (Pantoprazole 40 Mg Tablet) 40 mg PO QDAC [facility] Last Admin: 09/23/21 04:49 Dose: 40 mg Polyethylene Glycol (Polyethylene Glycol 3350 17 Gm Packet) 17 gm PO DAILY [facility] Last Admin: 09/23/21 08:09 Dose: Not Given Polyethylene Glycol (Polyethylene Glycol 3350 17 Gm Packet) 17 gm PO DAILY PRN PRN Reason: Constipation Prochlorperazine Edisylate (Prochlorperazine 10 Mg/2 Ml Vial) 10 mg IVP Q6HR PRN PRN Reason: Nausea / Vomiting Last Admin: 09/14/21 22:45 Dose: 10 mg Risperidone (Risperidone 1 Mg Tablet) 1 mg PO BID [facility] [place] Last Admin: 09/23/21 08:08 Dose: 1 mg Senna (Senna 8.6 Mg Tablet) 8.6 - 17.2 mg PO DAILY [facility] [place] Last Admin: 09/23/21 08:08 Dose: 8.6 mg Tizanidine HCl (Tizanidine 4 Mg Tablet) 2 mg PO TID [facility] Last Admin: 09/23/21 04:49 Dose: 2 mg Venlafaxine HCl (Venlafaxine Er 75 Mg Capsule) 150 mg PO DAILY [facility] Last Admin: 09/23/21 08:08 Dose: 150 mg Cholecalciferol [Vitamin D3] 25 mcg PO DAILY 08/15/20 Gabapentin [Neurontin] 100 mg PO TID 08/15/20 Aspirin [Aspirin EC] 81 mg PO DAILY 12/27/20 Omeprazole Magnesium 20 mg PO DAILY 03/05/21 Buprenorphine HCl/Naloxone HCl [Suboxone 8-2 mg Tab] 1 tab SL TID 03/27/21 Tizanidine HCl 2 mg PO TID 07/06/21 Venlafaxine HCl [Effexor Xr] 150 mg PO DAILY 08/18/21 polyethylene glycoL 3350 [Miralax] 17 gm PO DAILY PRN 08/18/21 Furosemide [Lasix] 20 mg PO DAILY 09/13/21 Metoprolol Succinate [Toprol Xl] 50 mg PO DAILY 09/13/21 Objective - Vital Signs/Intake & Output Reviewed Vital Signs: Yes Vital Signs: Vital Signs x48h Temp Pulse Resp BP Pulse Ox 09/23/21 08:06 36.5 C 63 16 127/51 L 95 Intake & Output: Intake & Output 09/20/21 09/21/21 09/22/21 09/23/21 23:59 23:59 23:59 23:59 Intake Total 2570 1530 1940 1000 Output Total 2400 2200 2000 1000 Balance 170 -670 -60 0 - Objective General Appearance: positive: No acute distress, Alert Neck: positive: No JVD Respiratory: positive: No respiratory distress Skin: positive: Color nml, No rash. negative: Diaphoresis, Pallor Neurologic/Psychiatric: positive: Oriented x3 - Lab Results Fish Bones: 09/14/21 06:49 09/20/21 05:05 ABX Reporting Has patient been on IV antibiotics over the past 48 hours?: No Assessment/Plan - Problem List (1) Altered mental status Impression: Resolved. Patient has returned to baseline after admission with proper medication management. She is waiting for transfer to a nursing facility or snf but states that she does not need termite control service representative assistance and hopes to return home. Patient lacks insight into her inability to properly manage her medications. She has been encouraged to work with physical therapy and to use the bathroom rather than the bedside commode to encourage physical activity. (2) At risk for unsafe behavior Impression: No acute changes today. Patient is still amenable to transfer to a snf or assisted living facility. She states that she does not need to stay in this type of facility indefinitely, though she is unsafe at home. Patient relies on to fill her medications, though she has been hospitalized 9 times in the past 12 months due to complications of poor medication management. Patient wishes to access the medical record to prove that her previous admissions were not drug related, but rather due to other causes. Please see note by Dr. Diaz on 09/22. (3) Acute kidney injury superimposed on CKD Impression: VICKIE likely due to to dehydration secondary to inability to care for self after medication mismanagement. Most recent creatinine is 2.0, which is consistent with patient baseline. Avoid nephrotoxins and continue to monitor. (4) HTN (hypertension) Impression: Patient has a history of hypertension and was not taking medications due to obtundation. Blood pressure was elevated during admission and home medications have been resumed. (5) Shingles Impression: Crusted, vesicular lesions located on patient's left flank during admission. Lesion was covered by a bandage and will be readdressed if needed. (6) UTI (urinary tract infection) Impression: Initial UA upon admission may have been contaminated at the time of collection, though the patient was treated with IV ceftriaxone due to presence of bacteria and altered mental status on arrival. Patient has a history of chronic UTI, though cultures are negative for growth. Qualifiers: Qualified Code(s): N30.00 - Acute cystitis without hematuria (7) Diabetes mellitus type 2, diet-controlled Impression: Type 2 diabetes well controlled by diet. HbA1c stable in mid 5% range. Continue routine monitoring during visit. Patient was transitioned to a regular diet per her request. (8) Anemia Impression: Patient has a history of anemia. Her hemoglobin and hematocrit are stable and non-concerning at this time. She will be monitored for worsening clinical signs and addressed if needed. Qualifiers: Anemia type: unspecified type Qualified Code(s): D64.9 - Anemia, unspecified
[2021-09-24] MEDS: PANTOPRAZOLE 40 MG TABLET PO SCH (05:32)
[2021-09-24] MEDS: LEVOTHYROXINE 25 MCG TABLET PO SCH (05:32)
[2021-09-24] MEDS: GABAPENTIN 100 MG CAPSULE PO SCH ×2 (05:32→13:14)
[2021-09-24] MEDS: BUPRENORPHINE/NALOXONE 8-2 MG TAB SL SCH ×2 (05:32→13:50)
[2021-09-24] MEDS: tiZANidine 4 MG TABLET PO SCH ×2 (05:32→13:13)
[2021-09-24] MEDS: gemfibroziL 600 MG TABLET PO SCH (08:05)
[2021-09-24] MEDS: MULTIVITAMIN W/MINERALS TABLET PO SCH (08:05)
[2021-09-24] MEDS: ASPIRIN EC 81 MG TABLET PO SCH (08:05)
[2021-09-24] MEDS: CHOLECALCIFEROL 25 MCG TABLET PO SCH (08:05)
[2021-09-24] MEDS: SENNA 8.6 MG TABLET PO SCH (08:05)
[2021-09-24] MEDS: risperiDONE 1 MG TABLET PO SCH (08:05)
[2021-09-24] MEDS: VENLAFAXINE ER 75 MG CAPSULE PO SCH (08:06)
[2021-09-24] MEDS: polyethylene glycoL 3350 17 GM PACKET PO SCH (08:06)
[2021-09-24] MEDS: DOCUSATE SODIUM 250 MG CAPSULE PO SCH (08:06)
[2021-09-24] MEDS: ACETAMINOPHEN 325 MG TABLET PO PRN (08:06)
[2021-09-24] MEDS: METOPROLOL SUCCINATE 25 MG TABLET PO SCH (08:09)
[2021-09-24 08:11] VITALS: BP 148/66
--- NOTE | 2021-09-24 09:10 | PROVIDER PROGRESS NOTE ---
Subjective - Prog Note Date Prog Note Date: 09/24/21 Prog Note Time: 08:50 Objective - Vital Signs/Intake & Output Vital Signs: Vital Signs x48h Pulse Resp BP Pulse Ox 09/24/21 08:10 73 20 148/66 H 96 Intake & Output: Intake & Output 09/21/21 09/22/21 09/23/21 09/24/21 23:59 23:59 23:59 23:59 Intake Total 1530 1940 3436 340 Output Total 2200 1999 2300 700 Balance -670 -60 1136 -360 - Lab Results Fish Bones: 09/14/21 06:49 09/20/21 05:05 Assessment/Plan - Problem List (6) UTI (urinary tract infection) Qualifiers: Qualified Code(s): N30.00 - Acute cystitis without hematuria (8) Anemia Qualifiers: Anemia type: unspecified type Qualified Code(s): D64.9 - Anemia, unspecified
--- NOTE | 2021-09-24 09:13 | DISCHARGE SUMMARY ---
Discharge Summary Admit Date: 09/12/21 Discharge Date: 09/24/21 Discharging Provider: Dr. Merritt Code Status: Do Not Attempt Resuscitation Condition at Discharge: Good Discharge Disposition: SNF DC/Xfer - DIAGNOSES Discharge Diagnoses with Status of Each Condition: 1. Altered mental status, resolved 2. Noncompliance with medical regimen 3. Echolalia, resolved 4. Bipolar disorder 5. Dehydration, resolved 6. Acute kidney injury superimposed on chronic kidney disease, resolved 7. Type 2 diabetes mellitus, diet controlled with complication of peripheral neuropathy, not on long-term insulin, controlled 8. Chronic anemia, stable 9. Hypertension, 10. Shingles on admission, resolved 11. Bacteriuria, resolved 12. Chronic pain syndrome - HPI History of Present Illness: A 71 year old female presents after she was brought to the ED by EMS for altered mental status and generalized weakness. Patient is unable to respond to qu estions and HPI was obtained through ED staff. The patient was found by her in an altered mental state this evening, she responds to speech and touch by moaning and cannot respond verbally. reportedly stated that the patient has experienced similar episodes in the past whenever she has a urinary tract infection. The patient has also been in the hospital repeatedly for similar episodes caused by opioid overdose and poor medication management. The patient lives with her who is unable to care for her. The patient was [facility] following a hospital visit for treatment of sepsis. No ROS could be obtained due to patients inability to answer yes/no questions. History - Past Medical History Cardiovascular: reports: Hypertension, High cholesterol, Deep vein thrombosis, Murmur Respiratory: reports: Asthma, COPD, Shortness of breath Neuro: reports: Peripheral neuropathy Endocrine/Autoimmune: reports: Type 2 diabetes GI: reports: GERD, Chronic constipation, Pancreatitis SEGMENT ASSEMBLER: reports: None : reports: Incontinence, Chronic bladder infection HEENT: reports: None Psych: reports: Anxiety, Bipolar disorder, Other Musculoskeletal: reports: Osteoarthritis, Fatigue, Chronic back pain, Other Derm: reports: Other MRSA Hx?: No - Past Surgical History General: reports: EGD, Colonoscopy Ortho: reports: Knee replacement, Spine surgery /SEGMENT ASSEMBLER: reports: section HEENT: reports: Tonsil/Adenoidectomy - CONSULTS | PROCEDURES Procedures: 09/12 - Plain chest radiograph: No acute cardiopulmonary abnormality 09/13 - Head CT: No acute intracranial abnormality 09/14 - Plain abdomen radiograph: Bowel gas patterns within normal limits, no evidence of bowel obstruction 09/16 - ECG: Sinus bradycardia, shortened ME interval, PVCs, left axis deviation. Metoprolol Dose lowered to 25 mg once daily to address bradycardia. - HOSPITAL COURSE Hospital Course: (1) Acute kidney injury superimposed on CKD Assessment/Plan: Acute kidney injury was likely a result of dehydration, since she has inability to properly care for herself or be cared for at home. Superimposed VICKIE resolved after medication were properly managed and fluid status was normalized Her creat has plateaued at 1.8-2.1, which is baseline. (2) Altered mental status Assessment/Plan: Resolved. She is back to her baseline after being re-admitted and being administered her meds properly and ordered to walk with PT and not lay in bed as she does when at home. A cognitive eval was done by OT and she scored 25/30, indicating mildly cognitively impaired. (3) At risk for unsafe behavior Conclusion/Plan: This is the patient's ninth admission/hospitalization over the past 12 months for the same presentation which is altered mental status which happens when she is at home, but she is stable with adequate mental status when she is cared for at hospital or SNF or our swing bed She lives with her and is unable to care for herself. She has had some in-home providers provided by the [facility]. In spite of that, its been difficult to get her to be compliant with medications as prescribed. (In the past she would overdose with opioids. That issue resolved when opioids were no longer prescribed to her (however she is still on Suboxone). She continues to return to this hospital after misuse of medications causing confusion and obtundation. These presentations also appeared to be from dehydration or UTI. Because of somnolence followed by echolalia, there is more concerned that excessive intake of her psych drug is now the cause for her altered mental status (somnolence, confusion then echolalia). Social work placed an APS report because of the frequent need to be hospitalized for altered mental status caused by drug intake. The patient told me that it is her who is in charge of filling her medication tray for the week, then he brings her the entire tray which she can apparently take as she wishes. It would not be a safe discharge to return back to this home living situation, as evidenced by recurrent re-admissions. The has stated (per SPIKE Ramos) and her caregivers have stated (per [facility] Perez), that she cannot be taken care of safely at home. 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 The patient had a long meeting with manager social services and agreed to be placed in a [facility] Communication [employer] Writing Care facility "to prove that she does not need nursing care". The patient will be discharged to a detention for further care. (4) Bipolar disorder Usual home p.o. meds resumed during the stay. She has not been on Nixa since summer, per our Pharmacist, Stepan. This is not a medication to be started here, as it needs long-term follow-up. She was advised to follow up with psychiatry to best address the ongoing problem. (5) Diabetes mellitus type 2, diet-controlled Conclusion/Plan: Her type 2 DM is well controlled by diet. The patient's HbA1c has been in the mid 5's range for several years. Routine glucose monitoring and insulin was not warranted during this visit. Patient received a normal diet during the visit per request. (6) Anemia Conclusion/Plan: Patient has a history of mild anemia. Her hemoglobin and hematocrit levels are not concerning during this admission. Qualifiers: Anemia type: unspecified type Qualified Code(s): D64.9 - Anemia, unspecified (7) HTN (hypertension) Conclusion/Plan: Patient was not taking home medications for hypertension because of obtundation. Systolic BP was elevated at admission and her home meds have been resumed. Metoprolol dose was lowered to 25mg once daily due to bradycardic episode. (8) Shingles Conclusion/Plan: Crusted, painful vesicular rash was present at admission on the patient's left flank, likely to be shingles. The lesion was covered by a bandage and did not need to be readdressed during the visit. Patient to follow up with primary care if needed. (9) Bacteriurea Urinalysis revealed leukocyte esterase and WBCs, though sample may have been contaminated. Thus, a UTI was considered to again be contributing to her altered mental status at admission. She has a history of chronic bladder infections. She was started on empiric ceftriaxone. The urine culture grew no bacteria and her antibiotic was stopped. (10) Echolalia Conclusion/Plan: Resolved Echolalia is a global INFORMATICA MDM DEVELOPER abnormality, not a focal one and can occur when psych meds are taken in excess, which is the suspected culprit here. Because of somnolence followed by kalpana, there is more concern that excessive drug intake was the cause for her altered mental status with somn olence and confusion followed by kalpana Social work has placed an APS report because of the frequent need to be hospitalized for altered mental status. She lives with her who is in charge of filling her medication tray for the week, but she opens the tray and takes the meds by herself. It is not a safe discharge to return back to this location. (11) Bradycardia Assessment/Plan: Resolved. HR documented in the 40's. Decreased metoprolol dose from 50 mg daily to 25 mg daily - ALLERGIES Allergies/Adverse Reactions: Allergies Allergy/AdvReac Type Severity Reaction Status Date / Time NSAIDS (Non-Steroidal Allergy Mild Hives Verified 09/12/21 21:03 Anti-Inflamma acetaminophen Allergy Hives Verified 09/12/21 21:03 green pepper Allergy Unknown Verified 09/12/21 21:03 lisinopril Allergy Unknown Verified 09/12/21 21:03 pepper (genus Capsicum) Allergy Unknown Verified 09/12/21 21:03 Sulfa (Sulfonamide AdvReac Mild Rash Verified 09/12/21 21:03 Antibiotics) ondansetron [From Zofran] AdvReac Dizziness Verified 09/12/21 21:03 - MEDICATIONS Home Medications: Ambulatory Orders Medication Instructions Recorded Confirmed Levothyroxine Sodium 50 mcg PO QDAC #30 07/17/19 09/13/21 gemfibroziL [Gemfibrozil] 600 mg PO BID #60 07/17/19 09/13/21 Cholecalciferol [Vitamin D3] 25 mcg PO DAILY 08/15/20 09/13/21 Gabapentin [Neurontin] 100 mg PO TID 08/15/20 09/13/21 Aspirin [Aspirin EC] 81 mg PO DAILY 12/27/20 09/13/21 Omeprazole Magnesium 20 mg PO DAILY 03/05/21 09/13/21 Tizanidine HCl 2 mg PO TID 07/06/21 09/13/21 Min Oil/Dimeth/Coconut Oil Crm 1 applic TOP PRN PRN 07/23/21 09/13/21 [Cavilon] Zinc Oxide 20% Oint [Zinc Oxide] 1 applic TOP PRN PRN 07/23/21 09/13/21 risperiDONE [RisperDAL] 1 mg PO BID tablet 07/23/21 09/13/21 Venlafaxine HCl [Effexor Xr] 150 mg PO DAILY 08/18/21 09/13/21 polyethylene glycoL 3350 [Miralax] 17 gm PO DAILY PRN 08/18/21 09/13/21 LORazepam [Ativan] 0.5 mg PO BID PRN #20 tablet 08/22/21 09/13/21 Furosemide [Lasix] 20 mg PO DAILY 09/13/21 09/13/21 Metoprolol Succinate [Toprol Xl] 50 mg PO DAILY 09/13/21 09/13/21 Acetaminophen [Tylenol] 650 mg PO Q4HR PRN tablet 09/24/21 Buprenorphine HCl/Naloxone HCl 1 tab SL TID 5 Days #15 tab 09/24/21 [Suboxone 8-2 mg Tab] Calcium Carbonate [Tums (Calcium 500 mg PO TID PRN tablet 09/24/21 Carbonate 500mg)] Carboxymethylcellulose 1% Opht 1 drops EACHEYE PRN PRN drops 09/24/21 [Refresh 1% Ophth Drops] Docusate Sodium 250Mg Capsule 250 - 500 mg PO DAILY 09/24/21 [Colace 250Mg Capsule] LORazepam [Ativan] 0.5 mg PO BID PRN #10 tablet 09/24/21 Multivitamin W/Minerals [Theragran 1 tab PO DAILYWM tablet 09/24/21 M] Nystatin [Nystop] 1 applic TOP BID bottle 09/24/21 - PHYSICAL EXAM AT DISCHARGE General Appearance: positive: No acute distress Eyes Bilateral: positive: Normal inspection Neck: positive: Nml inspection Respiratory: positive: No respiratory distress Abdomen: positive: No distention Skin: positive: No rash, Warm, Dry. negative: Cyanosis, Diaphoresis, Pallor, Skin rash Neurologic/Psychiatric: positive: Oriented x3 - LABS Result Diagrams: 09/14/21 06:49 09/20/21 05:05 - DIAGNOSTIC IMAGING Diagnostic Imaging Results: Final report reviewed - SEPSIS Current Stage of Sepsis: Ruled out - FOLLOW UP Follow Up: Patient will be discharged to a nursing facility. She is encouraged to schedule visits with primary care and psychiatry to follow up with ongoing concerns.
--- NOTE | 2021-09-24 09:17 | Discharge Plan ---
"Discharge Plan for SNF / [facility] - Discharge Plan And Transition Orders Problem Reviewed?: Yes Disposition: 03 SNF DC/Xfer Condition: Good Allergies and Adverse Reactions: Allergies Allergy/AdvReac Type Severity Reaction Status Date / Time NSAIDS (Non-Steroidal Allergy Mild Hives Verified 09/12/21 21:03 Anti-Inflamma acetaminophen Allergy Hives Verified 09/12/21 21:03 green pepper Allergy Unknown Verified 09/12/21 21:03 lisinopril Allergy Unknown Verified 09/12/21 21:03 pepper (genus Capsicum) Allergy Unknown Verified 09/12/21 21:03 Sulfa (Sulfonamide AdvReac Mild Rash Verified 09/12/21 21:03 Antibiotics) ondansetron [From Zofran] AdvReac Dizziness Verified 09/12/21 21:03 Health Concerns: Severely morbidly obese female who has a history of chronic kidney disease, bipolar disorder, peripheral neuropathy, and chronic pain who was recently admitted August 18 through August 22. History of multiple, multiple, multiple admissions due to self mis-management of her home medications including antidepressants, antipsychotics, and opioids. She also was admitted for dehydration and UTI secondary to the encephalopathy that ensues. After August 22 she [facility] She had been home 48 hours or less when called EMS because of confusion, unable to get out of bed. And she was refusing to get out of bed. She was not eating, not drinking. She became unresponsive enough that he called EMS. On admission urinalysis was contaminated. Initially treated as a possible UTI for 2 days when antibiotics were stopped and culture was negative. We feel that this is another admission due to encephalopathy from inappropriate use of home medications. She was dehydrated, and encephalopathic. Treatment consisted of IV fluids, resumption of her home medications on a scheduled basis. She is still reluctant to work with physical therapy but will do so. She is again deconditioned and unable to return to home and will need rehab. As her usual medication list has been resumed and given on a regular basis the patient has returned to baseline mental status. She is awake, alert, conversant. Plan of Treatment: Rehabilitation for strength. Goal is for her to be able to sit up on her own, sit to stand on transfer on her own. She should also be able to feed herself, dress herself. We feel, after multiple admissions, that this patient lacks insight with regards to her lack of medication compliance and how it leads to admissions. She is also significantly without motivation to get out of bed, and do for herself. She would like to prove us wrong and get strong enough to return to independent living even though the current plan is from rehab to long- term care. She would like to set a personal goal of getting regular psychiatric care for her bipolar disorder. She feels that she will call [facility], and would like her lithium resumed, and would like to get her medicines in a blister pack. Care Goals: Her stated care goals are to return to home after an of strengthening Assessment: On today's discharge, the patient is alert, oriented, lucid, but lacks insight as to how her misuse of medications has resulted in multiple admissions. - SNF / HALFWAY Transition Orders Admit to (Facility): [facility] Discharge Diagnosis: 1. Altered mental status 2. Noncompliance with medical regimen 3. Echolalia 4. Bipolar disorder 5. Dehydration 6. Acute kidney injury superimposed on chronic kidney disease 7. Type 2 diabetes mellitus, diet controlled with complication of peripheral neuropathy, not on long-term insulin 8. Chronic anemia 9. Hypertension 10. Shingles on admission, resolved 11. Bacteriuria 12. Chronic pain syndrome Medicare Certification Statement: I certify [facility] is medically necessary on a continuing basis for any of the conditions for which she/he is receiving care during hospitalization. Notify PCP of admission and forward orders to primary provider for signature. Weight on admission and: Weekly Other Notification Orders: Call PCP immediately if patient develops dyspnea, chest pain/tightness or edema. House Bowel Program: Yes Additional Bowel Program Orders: If no BM after 2 days, nurse may give M.O.M. 30ml PO PRN and/or ducolax Supp 1 SC and/or TERRA 250mg P.O., and/or senna 1-2 tabs PO. On day 3 nurse may give repeat above order until residents constipation is resolved. Annual Influenza Vaccine (between Jan 01 and July 31): Yes Two-step PPD per [facility] [id number] or approved exception documents: Yes Lab Tests or X-ray Orders: BMP October 01, 2021 Medication Orders: PLEASE REFER TO THE DISCHARGE MEDICATION LIST. Insulin Orders?: No - Medications New Prescriptions: LORazepam [Ativan] 0.5 mg PO BID PRN #10 tablet PRN Reason: Anxiety Buprenorphine HCl/Naloxone HCl [Suboxone 8-2 mg Tab] 1 tab SL TID 5 Days #15 tab - Diet Type: Geriatric Texture: Regular Liquids: Thin May have monthly special meal: Yes - Therapies | Activity Therapy: Evaluation | Treat if indicated: PT, OT Rehabilitation Potential: Maximize functional status Activity: Activity as Tolerated Weight Bearing: Full Weight Assistance Devices: Wheelchair, Walker"
[2021-09-24 10:49] LABS: B. PARAPERTUSSIS- RESP PCR PAN NOT DETECTED; B. PERTUSSIS- RESP PCR PANEL NOT DETECTED; C. PNEUMONIAE- RESP PCR PANEL NOT DETECTED; CORONAVIRUS 229E-RESP PCR NOT DETECTED; CORONAVIRUS HKU1-RESP PCR NOT DETECTED; CORONAVIRUS NL63-RESP PCR NOT DETECTED; CORONAVIRUS OC43-RESP PCR NOT DETECTED; HUMAN METAPNEUMOVIRUS NOT DETECTED; INFLUENZA A- RESP PCR PANEL NOT DETECTED; INFLUENZA B - RESP PCR PANEL NOT DETECTED; M. PNEUMONIAE- RESP PCR PANEL NOT DETECTED; PARAINFLUENZA VIRUS 1 NOT DETECTED; PARAINFLUENZA VIRUS 2 NOT DETECTED; PARAINFLUENZA VIRUS 3 NOT DETECTED; PARAINFLUENZA VIRUS 4 NOT DETECTED; RHINOVIRUS/ENTEROVIRUS NOT DETECTED; RSV- RESP PCR PANEL NOT DETECTED; SARS-CoV-2 -RESP PCR PANEL NOT DETECTED
[2021-09-24] MEDS: NYSTATIN POWDER 15 GM TOP SCH (13:21)
== END 2021-09-24 16:26 | DRG 81 ==
LOC: EDUNIT# → ED 20:51 → MS2 09-13 01:04 → OBSVTOIN 09-16 14:36
PROVIDERS: ADMIT Specialist; ATTEND Specialist
DX: R40.1 Stupor (principal); N30.00 Acute cystitis without hematuria; N17.9 Acute kidney failure, unspecified; E87.0 Hyperosmolality and hypernatremia; R48.8 Other symbolic dysfunctions; F31.9 Bipolar disorder, unspecified; E86.0 Dehydration; E11.22 Type 2 diabetes mellitus with diabetic chronic kidney disease; Z86.718 Personal history of other venous thrombosis and embolism; I12.9 Hypertensive chronic kidney disease with stage 1 through stage 4 chronic kidney disease, or unspecified chronic kidney disease; N18.9 Chronic kidney disease, unspecified; D64.9 Anemia, unspecified; B02.9 Zoster without complications; R82.71 Bacteriuria; G89.4 Chronic pain syndrome; R53.1 Weakness; F68.8 Other specified disorders of adult personality and behavior; Z87.440 Personal history of urinary (tract) infections; J44.9 Chronic obstructive pulmonary disease, unspecified; F17.210 Nicotine dependence, cigarettes, uncomplicated; E78.00 Pure hypercholesterolemia, unspecified; E11.42 Type 2 diabetes mellitus with diabetic polyneuropathy; F41.9 Anxiety disorder, unspecified; K21.9 Gastro-esophageal reflux disease without esophagitis; M19.90 Unspecified osteoarthritis, unspecified site; R32 Unspecified urinary incontinence; R00.1 Bradycardia, unspecified; F22 Delusional disorders; E66.01 Morbid (severe) obesity due to excess calories; Z20.822 Contact with and (suspected) exposure to COVID-19; Z68.32 Body mass index [BMI] 32.0-32.9, adult; Z91.14 Patient's other noncompliance with medication regimen; Z72.89 Other problems related to lifestyle; Z91.89 Other specified personal risk factors, not elsewhere classified
CPT/HCPCS: 36415; 36600; 51702; 70450; 71045; 74018; 80048; 80053; 80306; 81001; 82803; 83605; 84484; 85025; 87040; 87086; 87633; 87635; 93005; 96365; 96366; 96372; 96375; 96376; 97110; 97116; 97162; 97165; 97530; 99281; 99285; A9270; G0378; J1650; J7120

== ENCOUNTER 2021-11-03 13:11 | Inpatient (IN) | payer MEDICARE, MEDICAID ==
[2021-11-03 14:02] LABS: BASOPHILS % (AUTO) 0.2 %; EOSINOPHILS # (AUTO) 0.1 10^3/uL (0.0-0.7); EOSINOPHILS % (AUTO) 1.1 %; HCT - HEMATOCRIT 35.2 % (37.0-47.0); HGB - HEMOGLOBIN 11.2 g/dL (12.0-16.0); LYMPHOCYTES # (AUTO) 0.6 10^3/uL (1.5-3.5); LYMPHOCYTES % (AUTO) 6.2 %; MEAN CORPUSCULAR HEMOGLOBIN 28.9 pg (27.0-31.0); MEAN CORPUSCULAR HGB CONC 31.8 g/dL (32.0-36.0); MEAN PLATELET VOLUME 9.1 fL (7.9-10.8); MONOCYTES # (AUTO) 0.4 10^3/uL (0.0-1.0); MONOCYTES % (AUTO) 3.7 %; NEUTROPHILS # (AUTO) 8.7 10^3/uL (1.5-6.6); NEUTROPHILS % (AUTO) 88.2 %; PLT - PLATELET COUNT 342 10^3/uL (130-450); RED BLOOD COUNT 3.87 10^6/uL (4.20-5.40); RED CELL DISTRIBUTION WIDTH 14.8 % (12.0-15.0); WHITE BLOOD COUNT 9.9 x10^3/uL (4.8-10.8)
[2021-11-03 14:20] LABS: ALBUMIN 3.8 g/dL (3.2-5.5); ALBUMIN/GLOBULIN RATIO 0.9 (1.0-2.2); BILIRUBIN,TOTAL 0.3 mg/dL (0.2-1.0); CALCIUM 10.3 mg/dL (8.5-10.3); CREATININE 2.6 mg/dL (0.4-1.0); POTASSIUM 5.4 mmol/L (3.5-5.0)
[2021-11-03 14:26] LABS: BILIRUBIN,URINE NEGATIVE (NEGATIVE); GLUCOSE, URINE (UA) NEGATIVE (NEGATIVE); KETONES,URINE (UA) NEGATIVE (NEGATIVE); LEUKOCYTE ESTERASE, URINE MODERATE (NEGATIVE); NITRITE,URINE NEGATIVE (NEGATIVE); OCCULT BLOOD,URINE SMALL (NEGATIVE); PH,URINE 6.5 PH (5.0-7.5); PROTEIN,URINE 30 mg/dL (NEGATIVE); UROBILINOGEN,URINE 0.2 (NORMAL) E.U./dL (NORMAL)
[2021-11-03 14:47] LABS: CLARITY,URINE HAZY (CLEAR)
[2021-11-03 15:11] LABS: BACTERIA,URINE Rare /HPF (None Seen); RBC,URINE 0-5 /HPF (0-5); SQUAMOUS EPITHELIAL CELL,UR RARE Squamous (<= Few); WBC,URINE >25 /HPF (0-5)
[2021-11-03] MEDS ORDERED: SODIUM CHLORIDE 0.9% 1,000 ML IV STA ×2 (15:22)
[2021-11-03] MEDS ORDERED: cefTRIAXone 1 GM VIAL IVP STA (15:22)
--- NOTE | 2021-11-03 15:23 | ED Physician Documentation ---
History of Present Illness - Stated complaint Stated Complaint: AMS - Chief complaint Chief Complaint: General - History obtained from History obtained from: Patient, EMS - History of Present Illness Timing: Today Pain level max: 0 Pain level now: 0 - Additonal information Additional information: Patient is a 71-year-old female who presents to the emergency department with altered mental status today. Per EMS the is concerned about recurrent UTI. Has had issues with medication management at home in the past as well as recurrent UTIs. Has been hospitalized several times for same. Was recently discharged to a alf, unclear when she came back to her home with her . Review of Systems Unable to obtain: AMS PD PAST MEDICAL HISTORY - Past Medical History Cardiovascular: Hypertension, High cholesterol, Deep vein thrombosis, Murmur Respiratory: Asthma, COPD, Shortness of breath Neuro: Peripheral neuropathy Endocrine/Autoimmune: Type 2 diabetes GI: GERD, Chronic constipation, Pancreatitis CT SCAN SPECIAL PROCEDURES TECHNOLOGIST: None : Incontinence, Chronic bladder infection HEENT: None Psych: Anxiety, Bipolar disorder, Other Musculoskeletal: Osteoarthritis, Fatigue, Chronic back pain, Other Derm: Other - Past Surgical History Past Surgical History: Yes General: EGD, Colonoscopy Ortho: Knee replacement, Spine surgery /CT SCAN SPECIAL PROCEDURES TECHNOLOGIST: section HEENT: Tonsil/Adenoidectomy - Present Medications Home Medications: Ambulatory Orders Medication Instructions Recorded Confirmed Levothyroxine Sodium 50 mcg PO QDAC #30 07/17/19 09/13/21 gemfibroziL [Gemfibrozil] 600 mg PO BID #60 07/17/19 09/13/21 Cholecalciferol [Vitamin D3] 25 mcg PO DAILY 08/15/20 09/13/21 Gabapentin [Neurontin] 100 mg PO TID 08/15/20 09/13/21 Aspirin [Aspirin EC] 81 mg PO DAILY 12/27/20 09/13/21 Omeprazole Magnesium 20 mg PO DAILY 03/05/21 09/13/21 Tizanidine HCl 2 mg PO TID 07/06/21 09/13/21 Min Oil/Dimeth/Coconut Oil Crm 1 applic TOP PRN PRN 07/23/21 09/13/21 [Cavilon] Zinc Oxide 20% Oint [Zinc Oxide] 1 applic TOP PRN PRN 07/23/21 09/13/21 risperiDONE [RisperDAL] 1 mg PO BID tablet 07/23/21 09/13/21 Venlafaxine HCl [Effexor Xr] 150 mg PO DAILY 08/18/21 09/13/21 polyethylene glycoL 3350 [Miralax] 17 gm PO DAILY PRN 08/18/21 09/13/21 LORazepam [Ativan] 0.5 mg PO BID PRN #20 tablet 08/22/21 09/13/21 Furosemide [Lasix] 20 mg PO DAILY 09/13/21 09/13/21 Metoprolol Succinate [Toprol Xl] 50 mg PO DAILY 09/13/21 09/13/21 Acetaminophen [Tylenol] 650 mg PO Q4HR PRN tablet 09/24/21 Buprenorphine HCl/Naloxone HCl 1 tab SL TID 5 Days #15 tab 09/24/21 [Suboxone 8-2 mg Tab] Calcium Carbonate [Tums (Calcium 500 mg PO TID PRN tablet 09/24/21 Carbonate 500mg)] Carboxymethylcellulose 1% Opht 1 drops EACHEYE PRN PRN drops 09/24/21 [Refresh 1% Ophth Drops] Docusate Sodium 250Mg Capsule 250 - 500 mg PO DAILY 09/24/21 [Colace 250Mg Capsule] LORazepam [Ativan] 0.5 mg PO BID PRN #10 tablet 09/24/21 Multivitamin W/Minerals [Theragran 1 tab PO DAILYWM tablet 09/24/21 M] Nystatin [Nystop] 1 applic TOP BID bottle 09/24/21 - Allergies Allergies/Adverse Reactions: Allergies Allergy/AdvReac Type Severity Reaction Status Date / Time NSAIDS (Non-Steroidal Allergy Mild Hives Verified 11/03/21 13:20 Anti-Inflamma acetaminophen Allergy Hives Verified 11/03/21 13:20 green pepper Allergy Unknown Verified 11/03/21 13:20 lisinopril Allergy Unknown Verified 11/03/21 13:20 pepper (genus Capsicum) Allergy Unknown Verified 11/03/21 13:20 Sulfa (Sulfonamide AdvReac Mild Rash Verified 11/03/21 13:20 Antibiotics) ondansetron [From Zofran] AdvReac Dizziness Verified 11/03/21 13:20 - Social History Does the pt smoke?: Yes Smoking Status: Current every day smoker Does the pt drink ETOH?: No Does the pt have substance abuse?: No - Immunizations Immunizations are current?: Yes Immunizations: TDAP >10years/unknown - POLST Patient has POLST: No POLST Status: Full Code PD ED PE NORMAL - Vitals Vital signs reviewed: Yes - General General: No acute distress, Well developed/nourished - HEENT HEENT: Atraumatic, PERRL, Moist mucous membranes, Pharynx benign - Neck Neck: Supple, no meningeal sign - Cardiac Cardiac: RRR - Respiratory Respiratory: No respiratory distress, Clear bilaterally - Abdomen Abdomen: Soft, Non tender, Non distended - Derm Derm: Warm and dry - Extremities Extremities: No edema - Neuro Neuro: Other (Patient is alert, but not oriented. Will only answer yes or no. Appears confused.) Eye Opening: Spontaneous Motor: Localizes to Pain Verbal: Confused GCS Score: 13 Results - Vitals Vitals: Vital Signs - 24 hr 11/03/21 11/03/21 13:20 15:09 Temperature 36.5 C Heart Rate 56 L 96 Respiratory 16 12 Rate Blood Pressure 178/92 H 115/99 H O2 Saturation 92 97 Oxygen O2 Source [Without Activity] Room air O2 Source Room air - Labs Labs: Laboratory Tests 11/03/21 11/03/21 11/03/21 13:56 13:56 14:18 WBC 9.9 RBC 3.87 L Hgb 11.2 L Hct 35.2 L MCV 91.0 MCH 28.9 MCHC 31.8 L RDW 14.8 Plt Count 342 MPV 9.1 Neut # (Auto) 8.7 H Lymph # (Auto) 0.6 L Tift # (Auto) 0.4 Eos # (Auto) 0.1 Baso # (Auto) 0.0 Absolute Nucleated RBC 0.00 Nucleated RBC % 0.0 Sodium 146 H Potassium 5.4 H Chloride 106 Carbon Dioxide 27 Anion Gap 13.0 BUN 69 H Creatinine 2.6 H Estimated GFR (MDRD) 18 L Glucose 125 H Calcium 10.3 Total Bilirubin 0.3 AST 17 ALT 14 Alkaline Phosphatase 94 Total Protein 8.0 Albumin 3.8 Globulin 4.2 Albumin/Globulin Ratio 0.9 L Lipase 29 Urine Color YELLOW Urine Clarity HAZY Urine pH 6.5 Ur Specific [place] 1.010 Urine Protein 30 H Urine Glucose (UA) NEGATIVE Urine Ketones NEGATIVE Urine Occult Blood SMALL H Urine Nitrite NEGATIVE Urine Bilirubin NEGATIVE Urine Urobilinogen 0.2 (NORMAL) Ur Leukocyte Esterase MODERATE H Urine RBC 0-5 Urine WBC >25 H Ur Squamous Epith Cells RARE Squamous Urine Bacteria Rare Ur Microscopic Review INDICATED Urine Culture Comments INDICATED PD MEDICAL DECISION MAKING - ED course Complexity details: reviewed old records, reviewed results, re-evaluated patient, considered differential ED course: 71-year-old female with altered mental status. This has been a chronic ongoing issue for the patient. Sometimes thought to be secondary to UTI. We will treat the UTI with Rocephin. Sometimes thought to be due to polypharmacy and medication mismanagement. In either case she is significantly altered, we will therefore put her in the hospital for ongoing care. Discussed the case with Dr. Brewster, hospitalist who accepts This document was made in part using voice recognition software. While efforts are made to proofread this document, sound alike and grammatical errors may occur. Departure - Departure Disposition: ED Place in Observation Clinical Impression: Acute renal insufficiency, Metabolic encephalopathy, Polypharmacy Altered mental status Qualifiers: Altered mental status type: unspecified Qualified Code(s): R41.82 - Altered mental status, unspecified UTI (urinary tract infection) Qualifiers: Urinary tract infection type: acute cystitis Hematuria presence: without hematuria Qualified Code(s): N30.00 - Acute cystitis without hematuria Condition: Stable Discharge Date/Time: 11/03/21 16:00
[2021-11-03] MEDS ORDERED: SODIUM CHLORIDE FLUSH 0.9% 10 ML SYRINGE IVP PRN (15:28)
--- NOTE | 2021-11-03 15:34 | HISTORY & PHYSICAL EXAMINATION ---
Chief Complaint - Chief Complaint Chief Complaint: altered mental status History of Present Illness - Admitted From Admitted From:: [facility] ED - History Obtained From Records Reviewed: yes History obtained from: ED provider Exam Limitations: altered mental status - History of Present Illness HPI Comment/Other: "Patient is a 71-year-old female who presents to the emergency department with altered mental status today. Per EMS the is concerned about recurrent UTI. Has had issues with medication management at home in the past as well as recurrent UTIs. Has been hospitalized several times for same. Was recently discharged to a [facility], unclear when she came back to her home with her ." HPI above is obtained from the ED physicians H&P because the patient is currently altered and unable to provide a reliable history. At bedside she is awake but perseverating about needing to spit. She mainly repeats words from the questions she has just been asked. History - Past Medical History Cardiovascular: reports: Hypertension, High cholesterol, Deep vein thrombosis, Murmur Respiratory: reports: Asthma, COPD, Shortness of breath Neuro: reports: Peripheral neuropathy Endocrine/Autoimmune: reports: Type 2 diabetes GI: reports: GERD, Chronic constipation, Pancreatitis MEAT DRESSER: reports: None : reports: Incontinence, Chronic bladder infection HEENT: reports: None Psych: reports: Anxiety, Bipolar disorder, Other Musculoskeletal: reports: Osteoarthritis, Fatigue, Chronic back pain, Other Derm: reports: Other MRSA Hx?: No - Past Surgical History General: reports: EGD, Colonoscopy Ortho: reports: Knee replacement, Spine surgery /MEAT DRESSER: reports: section HEENT: reports: Tonsil/Adenoidectomy - Family & Social History Family History: Mother: , CAD, Father: , CAD Family History Comment/Other: I am unable to update her family history due to her encephalopathy but review of prior records revealed that both her mother and father of heart disease at the age of 57. Living Situation: With spouse/s.o. Social History Notes: Her tells me that she used to smoke a pack a day but now smokes about 2 cigarettes a day. He denies any alcohol use. - Substance History Use: Uses substance without health or social issues: Tobacco (hx) - POLST Patient has POLST: No POLST Status: Full Code Meds/Allgy - Home Medications Home Medications: Ambulatory Orders Medication Instructions Recorded Confirmed Levothyroxine Sodium 50 mcg PO QDAC #30 07/17/19 09/13/21 gemfibroziL [Gemfibrozil] 600 mg PO BID #60 07/17/19 09/13/21 Cholecalciferol [Vitamin D3] 25 mcg PO DAILY 08/15/20 09/13/21 Gabapentin [Neurontin] 100 mg PO TID 08/15/20 09/13/21 Aspirin [Aspirin EC] 81 mg PO DAILY 12/27/20 09/13/21 Omeprazole Magnesium 20 mg PO DAILY 03/05/21 09/13/21 Tizanidine HCl 2 mg PO TID 07/06/21 09/13/21 Min Oil/Dimeth/Coconut Oil Crm 1 applic TOP PRN PRN 07/23/21 09/13/21 [Cavilon] Zinc Oxide 20% Oint [Zinc Oxide] 1 applic TOP PRN PRN 07/23/21 09/13/21 risperiDONE [RisperDAL] 1 mg PO BID tablet 07/23/21 09/13/21 Venlafaxine HCl [Effexor Xr] 150 mg PO DAILY 08/18/21 09/13/21 polyethylene glycoL 3350 [Miralax] 17 gm PO DAILY PRN 08/18/21 09/13/21 LORazepam [Ativan] 0.5 mg PO BID PRN #20 tablet 08/22/21 09/13/21 Furosemide [Lasix] 20 mg PO DAILY 09/13/21 09/13/21 Metoprolol Succinate [Toprol Xl] 50 mg PO DAILY 09/13/21 09/13/21 Acetaminophen [Tylenol] 650 mg PO Q4HR PRN tablet 09/24/21 Buprenorphine HCl/Naloxone HCl 1 tab SL TID 5 Days #15 tab 09/24/21 [Suboxone 8-2 mg Tab] Calcium Carbonate [Tums (Calcium 500 mg PO TID PRN tablet 09/24/21 Carbonate 500mg)] Carboxymethylcellulose 1% Opht 1 drops EACHEYE PRN PRN drops 09/24/21 [Refresh 1% Ophth Drops] Docusate Sodium 250Mg Capsule 250 - 500 mg PO DAILY 09/24/21 [Colace 250Mg Capsule] LORazepam [Ativan] 0.5 mg PO BID PRN #10 tablet 09/24/21 Multivitamin W/Minerals [Theragran 1 tab PO DAILYWM tablet 09/24/21 M] Nystatin [Nystop] 1 applic TOP BID bottle 09/24/21 - Allergies Allergies/Adverse Reactions: Allergies Allergy/AdvReac Type Severity Reaction Status Date / Time NSAIDS (Non-Steroidal Allergy Mild Hives Verified 11/03/21 13:20 Anti-Inflamma acetaminophen Allergy Hives Verified 11/03/21 13:20 green pepper Allergy Unknown Verified 11/03/21 13:20 lisinopril Allergy Unknown Verified 11/03/21 13:20 pepper (genus Capsicum) Allergy Unknown Verified 11/03/21 13:20 Sulfa (Sulfonamide AdvReac Mild Rash Verified 11/03/21 13:20 Antibiotics) ondansetron [From Zofran] AdvReac Dizziness Verified 11/03/21 13:20 Review of Systems - Other Findings Other Findings: A 12 point review of system is limited because the patient is currently altered and unable to provide a reliable history. Prior Level of Functionality: She is dependent for activities of daily living Exam - Vital Signs Vital Signs: Vital Signs x48h Temp Pulse Resp BP Pulse Ox 11/03/21 15:09 96 12 115/99 H 97 11/03/21 13:20 36.5 C 56 L 16 178/92 H 92 - Physical Exam General Appearance: positive: Lethargic Eyes Bilateral: positive: PERRL, EOMI ENT: positive: Dry mucous membranes Neck: positive: No JVD, Trachea midline Respiratory: positive: Chest non-tender, No respiratory distress, Breath sounds nml. negative: Wheezes, Rales, Rhonchi Cardiovascular: positive: Regular rate & rhythm, No murmur Abdomen: positive: Non-tender, No organomegaly, Nml bowel sounds, No distention. negative: Guarding, Rebound Back: positive: Nml inspection Skin: positive: Color nml, No rash, Warm, Dry Extremities: positive: Non-tender, Nml appearance, No pedal edema Neurologic/Psychiatric: positive: Disoriented to person, Disoriented to place, Disoriented to time, Other (lethargic/ somnolent) Conclusion/Plan - Problem List (1) Metabolic encephalopathy Conclusion/Plan: Likely multifactorial secondary to medication, dehydration and possibly UTI. Patient is receiving IV hydration with normal saline at 100 mL/h. Rocephin prescribed for possible UTI. We will hold any potential narcotic. We will hold lorazepam, Suboxone, Tizanidine and venlafaxine (2) UTI (urinary tract infection) Conclusion/Plan: Urine analysis showed greater than 25 WBCs, moderate leukocyte esterase. Urine cultures pending. Patient started on Rocephin 1 g IV daily. IV hydration with normal saline at 100 mL/h. Qualifiers: Urinary tract infection type: acute cystitis Hematuria presence: without hematuria Qualified Code(s): N30.00 - Acute cystitis without hematuria (3) Acute kidney injury superimposed on CKD Conclusion/Plan: Creatinine today is 2.6. Estimated GFR 18. Patient started on IV hydration with normal saline at 100 mL/h. (4) Diabetes mellitus type 2, diet-controlled Conclusion/Plan: Not on any diabetic medication. (5) HTN (hypertension) Conclusion/Plan: We will hold patient's Lasix. On metoprolol succinate 50 mg p.o. daily. (6) Hyperlipidemia Conclusion/Plan: On gemfibrozil (7) Hypothyroidism Conclusion/Plan: On levothyroxine 50 mcg p.o. daily AC. (8) GERD (gastroesophageal reflux disease) Conclusion/Plan: Protonix 40 mg p.o. daily. - Lab Results Fish Bones: 11/03/21 13:56 11/03/21 13:56 Core Measures - Anticipated LOS I expect patient to be DC'd or transferred within 96 hours.: Yes - DVT/VTE - Prophylaxis VTE/DVT Device ordered at admit?: Yes
[2021-11-03] MEDS ORDERED: SODIUM CHLORIDE 0.9% 1,000 ML IV SCH (16:00)
[2021-11-03] MEDS: SODIUM CHLORIDE FLUSH 0.9% 10 ML SYRINGE IVP SCH ×2 (16:40→23:30)
[2021-11-03] MEDS ORDERED: HALOPERIDOL 5 MG/ML VIAL IVP ONE (22:21)
[2021-11-04 05:08] LABS: BASOPHILS % (AUTO) 0.2 %; EOSINOPHILS % (AUTO) 0.3 %; LYMPHOCYTES # (AUTO) 0.8 10^3/uL (1.5-3.5); LYMPHOCYTES % (AUTO) 8.4 %; MEAN CORPUSCULAR HEMOGLOBIN 28.7 pg (27.0-31.0); MEAN CORPUSCULAR HGB CONC 32.4 g/dL (32.0-36.0); MEAN CORPUSCULAR VOLUME 88.8 fL (81.0-99.0); MEAN PLATELET VOLUME 9.3 fL (7.9-10.8); MONOCYTES # (AUTO) 0.8 10^3/uL (0.0-1.0); MONOCYTES % (AUTO) 8.9 %; NEUTROPHILS # (AUTO) 7.4 10^3/uL (1.5-6.6); NEUTROPHILS % (AUTO) 81.8 %; PLT - PLATELET COUNT 334 10^3/uL (130-450); RED BLOOD COUNT 3.83 10^6/uL (4.20-5.40); RED CELL DISTRIBUTION WIDTH 14.6 % (12.0-15.0); WHITE BLOOD COUNT 9.1 x10^3/uL (4.8-10.8)
[2021-11-04 05:27] LABS: CREATININE 2.2 mg/dL (0.4-1.0); MAGNESIUM 2.6 mg/dL (1.7-2.8); POTASSIUM 4.2 mmol/L (3.5-5.0)
[2021-11-04] MEDS: PANTOPRAZOLE 40 MG TABLET PO SCH (06:11)
--- NOTE | 2021-11-04 07:40 | PROVIDER PROGRESS NOTE ---
Assessment/Plan - Problem List (1) Metabolic encephalopathy Assessment/Plan: 11/04/21 Patient was more agitated overnight and this morning. Required Haldol to calm down. Ativan ordered as needed for agitation. 11/03/21 Likely multifactorial secondary to medication, dehydration and possibly UTI. Patient is receiving IV hydration with normal saline at 100 mL/h. Rocephin prescribed for possible UTI. We will hold any potential narcotic. We will hold lorazepam, Suboxone, Tizanidine and venlafaxine (2) UTI (urinary tract infection) Qualifiers: Urinary tract infection type: acute cystitis Hematuria presence: without hematuria Qualified Code(s): N30.00 - Acute cystitis without hematuria Assessment/Plan: Urine analysis showed greater than 25 WBCs, moderate leukocyte esterase. Urine cultures pending. Patient started on Rocephin 1 g IV daily. IV hydration with normal saline at 100 mL/h. (3) Acute kidney injury superimposed on CKD Assessment/Plan: Creatinine improved from 2.6 to 2.2 today. Estimated GFR 22. Continue IV hydration with normal saline at 100 mL/h. (4) Diabetes mellitus type 2, diet-controlled Assessment/Plan: Not on any diabetic medication. (5) HTN (hypertension) Assessment/Plan: We will hold patient's Lasix. On metoprolol succinate 50 mg p.o. daily. (6) Hyperlipidemia Assessment/Plan: On gemfibrozil (7) Hypothyroidism Assessment/Plan: On levothyroxine 50 mcg p.o. daily AC. (8) GERD (gastroesophageal reflux disease) Assessment/Plan: Protonix 40 mg p.o. daily. - Current Meds Current Meds: Current Medications Generic Name Dose Route Start Last Admin Trade Name Freq PRN Reason Stop Dose Admin Pantoprazole Sodium 40 mg 11/04/21 07:00 11/04/21 06:11 Pantoprazole 40 Mg Tablet PO 40 mg QDAC JARETT Administration Sodium Chloride 10 ml 11/03/21 17:00 11/03/21 23:30 Sodium Chloride Flush 0.9% 10 Ml Syringe IVP Not Given 0100,0900,1700 JARETT - Lab Result Fish Bone Diagrams: 11/04/21 04:59 11/04/21 04:59 - Additional Planning My Orders: My Active Orders 11/03/21 15:28 Sodium Chloride Flush 0.9% [Normal Saline Flush 0.9%] 10 ml IVP PRN PRN 11/03/21 15:29 Activity Orders [RC] Q2HR IO [RC] IOSHIFT Initiate Bowel Care Protocol [RC] .protocol Initiate Flu Vaccine Screening [RC] ONCE Initiate Line Care Protocol [RC] QSHIFT Initiate Personal Care Protoco [RC] .protocol Initiate Pneumonia Vaccine Scr [RC] ONCE Oxygen Therapy [RC] .PRN Vital Signs [RC] Q4HR Code Status [OTHERS] Routine Condition of Patient [OTHERS] Routine DVT Prophylaxis [OTHERS] Routine 11/03/21 15:31 SCDs [RC] QSHIFT 11/03/21 17:00 Sodium Chloride Flush 0.9% [Normal Saline Flush 0.9%] 10 ml IVP 0100,0900,1700 11/04/21 Breakfast Carb-controlled Diet [DIET] 11/04/21 07:00 Pantoprazole [Protonix] 40 mg PO QDAC 11/04/21 08:00 D5.45NS @ 125 mls/hr Dextrose 5%-0.45% NaCl [D5.45ns] 1,000 ml IV 125 mls/hr 11/04/21 09:00 cefTRIAXone [Rocephin] 1 gm Sodium Chloride 0.9% Minibag [Normal Saline 0.9% Minibag] 100 ml IV DAILY 11/05/21 05:00 BMP - BASIC METABOLIC PANEL [CHEM] DAILYLAB CBC - COMP BLD CT W/AUTO DIFF [HEME] DAILYLAB 11/06/21 05:00 BMP - BASIC METABOLIC PANEL [CHEM] DAILYLAB CBC - COMP BLD CT W/AUTO DIFF [HEME] DAILYLAB 11/07/21 05:00 BMP - BASIC METABOLIC PANEL [CHEM] DAILYLAB CBC - COMP BLD CT W/AUTO DIFF [HEME] DAILYLAB 11/08/21 05:00 BMP - BASIC METABOLIC PANEL [CHEM] DAILYLAB CBC - COMP BLD CT W/AUTO DIFF [HEME] DAILYLAB Subjective - Subjective Patient Reports: Other (Echolalia persists. Patient was very agitated last night. She pulled of telemetry and IV lines. Required a dose of haldol to calm down) Objective Vital Signs: Vital Signs - 24 hr 11/03/21 11/03/21 11/03/21 13:20 15:09 16:00 Temperature 36.5 C 36.6 C Heart Rate 56 L 96 Heart Rate [ 81 Brachial] Respiratory 16 12 19 Rate Blood Pressure 178/92 H 115/99 H Blood Pressure [Left Femoral artery] Blood Pressure 130/88 H [Right Brachial artery] O2 Saturation 92 97 96 11/03/21 11/03/21 11/04/21 22:27 23:30 05:00 Temperature 37.4 C 37.1 C 36.6 C Heart Rate Heart Rate [ 78 97 56 L Brachial] Respiratory 20 20 20 Rate Blood Pressure Blood Pressure 153/53 H 125/98 H [Left Femoral artery] Blood Pressure 153/75 H [Right Brachial artery] O2 Saturation 95 95 96 Oxygen O2 Source [Without Activity] Room air O2 Source Room air I&O (Last 24 Hrs): Intake and Output Totals x24h 11/02/21 11/03/21 11/04/21 23:59 23:59 23:59 Intake Total 2065 175 Output Total 650 200 Balance 1415 -25 General: Alert, Other (Perseverating and echolalia persists. Awake, alert, Oriented X2) HEENT: PERRLA, EOMI Neck: Supple, No JVD Neuro: Alert Cardiovascular: Regular rate, Normal S1, Normal S2 Respiratory: Chest non-tender, No respiratory distress, Breath sounds nml Abdomen: Normal bowel sounds, Soft, No tenderness, No masses Extremities: No clubbing, No cyanosis, No edema Skin: No rashes, No breakdown, No significant lesion - Results Results: Laboratory Results WBC 9.1 x10^3/uL (4.8-10.8) 11/04/21 04:59 RBC 3.83 10^6/uL (4.20-5.40) L 11/04/21 04:59 Hgb 11.0 g/dL (12.0-16.0) L 11/04/21 04:59 Hct 34.0 % (37.0-47.0) L 11/04/21 04:59 MCV 88.8 fL (81.0-99.0) 11/04/21 04:59 MCH 28.7 pg (27.0-31.0) 11/04/21 04:59 MCHC 32.4 g/dL (32.0-36.0) 11/04/21 04:59 RDW 14.6 % (12.0-15.0) 11/04/21 04:59 Plt Count 334 10^3/uL (130-450) 11/04/21 04:59 MPV 9.3 fL (7.9-10.8) 11/04/21 04:59 Neut # (Auto) 7.4 10^3/uL (1.5-6.6) H 11/04/21 04:59 Lymph # (Auto) 0.8 10^3/uL (1.5-3.5) L 11/04/21 04:59 Hinds # (Auto) 0.8 10^3/uL (0.0-1.0) 11/04/21 04:59 Eos # (Auto) 0.0 10^3/uL (0.0-0.7) 11/04/21 04:59 Baso # (Auto) 0.0 10^3/uL (0.0-0.1) 11/04/21 04:59 Absolute Nucleated RBC 0.00 x10^3/uL 11/04/21 04:59 Nucleated RBC % 0.0 /100WBC 11/04/21 04:59 Sodium 149 mmol/L (135-145) H 11/04/21 04:59 Potassium 4.2 mmol/L (3.5-5.0) 11/04/21 04:59 Chloride 109 mmol/L (101-111) 11/04/21 04:59 Carbon Dioxide 24 mmol/L (21-32) 11/04/21 04:59 Anion Gap 16.0 (6-13) H 11/04/21 04:59 BUN 64 mg/dL (6-20) H 11/04/21 04:59 Creatinine 2.2 mg/dL (0.4-1.0) H 11/04/21 04:59 Estimated GFR (MDRD) 22 (>89) L 11/04/21 04:59 Glucose 133 mg/dL (70-100) H 11/04/21 04:59 Calcium 10.0 mg/dL (8.5-10.3) 11/04/21 04:59 Magnesium 2.6 mg/dL (1.7-2.8) 11/04/21 04:59 Total Bilirubin 0.3 mg/dL (0.2-1.0) 11/03/21 13:56 AST 17 IU/L (10-42) 11/03/21 13:56 ALT 14 IU/L (10-60) 11/03/21 13:56 Alkaline Phosphatase 94 IU/L (42-121) 11/03/21 13:56 Total Protein 8.0 g/dL (6.7-8.2) 11/03/21 13:56 Albumin 3.8 g/dL (3.2-5.5) 11/03/21 13:56 Globulin 4.2 g/dL (2.1-4.2) 11/03/21 13:56 Albumin/Globulin Ratio 0.9 (1.0-2.2) L 11/03/21 13:56 Lipase 29 U/L (22-51) 11/03/21 13:56 Urine Color YELLOW 11/03/21 14:18 Urine Clarity HAZY (CLEAR) 11/03/21 14:18 Urine pH 6.5 PH (5.0-7.5) 11/03/21 14:18 Ur Specific Valdez 1.010 (1.002-1.030) 11/03/21 14:18 Urine Protein 30 mg/dL (NEGATIVE) H 11/03/21 14:18 Urine Glucose (UA) NEGATIVE mg/dL (NEGATIVE) 11/03/21 14:18 Urine Ketones NEGATIVE mg/dL (NEGATIVE) 11/03/21 14:18 Urine Occult Blood SMALL (NEGATIVE) H 11/03/21 14:18 Urine Nitrite NEGATIVE (NEGATIVE) 11/03/21 14:18 Urine Bilirubin NEGATIVE (NEGATIVE) 11/03/21 14:18 Urine Urobilinogen 0.2 (NORMAL) E.U./dL (NORMAL) 11/03/21 14:18 Ur Leukocyte Esterase MODERATE (NEGATIVE) H 11/03/21 14:18 Urine RBC 0-5 /HPF (0-5) 11/03/21 14:18 Urine WBC >25 /HPF (0-5) H 11/03/21 14:18 Ur Squamous Epith Cells RARE Squamous (<= Few) 11/03/21 14:18 Urine Bacteria Rare /HPF (None Seen) 11/03/21 14:18 Ur Microscopic Review INDICATED 11/03/21 14:18 Urine Culture Comments INDICATED 11/03/21 14:18 SARS-CoV-2 (PCR) NOT DETECTED 11/03/21 15:37 - Procedures Procedures: Procedures COLONOSCOPY (01/09/13) DRAINAGE OF BLADDER WITH DRAINAGE DEVICE, VIA OPENING (11/25/19) ABX Reporting Has patient been on IV antibiotics over the past 48 hours?: Yes
[2021-11-04] MEDS: cefTRIAXone 1 GM in SODIUM CHLORIDE 0.9% MINIBAG 100 ML IV SCH (08:21)
[2021-11-04] MEDS: DEXTROSE 5%-0.45% NACL 1,000 ML IV SCH ×2 (08:21→17:29)
[2021-11-04] MEDS: NYSTATIN POWDER 15 GM TOP SCH ×2 (08:24→21:37)
[2021-11-04] MEDS: SODIUM CHLORIDE FLUSH 0.9% 10 ML SYRINGE IVP SCH ×2 (08:25→17:43)
[2021-11-04] MEDS: LORazepam 2 MG/ML VIAL IVP PRN ×3 (11:39→19:38)
--- NOTE | 2021-11-04 14:03 | PHARMACY PROGRESS NOTE ---
- Best Possible Medication History Admit Date and Time: 11/03/21 1528 Processed by: Pharmacy Medication History completed: Yes Secondary Source(s): Physician records, Pharmacy records, Insurance records, Previous admit records As the person ultimately responsible for medication therapy, providers are able to order a medication from an existing home medication list in [facility] via the "Reconcile Routine" prior to Confirmation of that medication by administrative support technician. Such practice is discouraged except when the physician, in their clinical judgment, deems that a medical need exists for a medication without regard to previous use.
[2021-11-04] MEDS ORDERED: hydrALAZINE INJ 20 MG/ML VIAL IVP PRN (14:05)
[2021-11-04] MEDS ORDERED: CARBOXYMETHYLCELLULOSE OPHTH DROPS EACHEYE PRN (20:23)
[2021-11-04] MEDS: carvediloL 12.5 MG TABLET PO SCH (21:25)
[2021-11-04] MEDS: gemfibroziL 600 MG TABLET PO SCH (21:27)
[2021-11-04] MEDS: GABAPENTIN 100 MG CAPSULE PO SCH (21:28)
[2021-11-04] MEDS: tiZANidine 4 MG TABLET PO SCH (21:29)
[2021-11-05] MEDS: SODIUM CHLORIDE FLUSH 0.9% 10 ML SYRINGE IVP SCH ×3 (00:05→17:06)
[2021-11-05] MEDS: DEXTROSE 5%-0.45% NACL 1,000 ML IV SCH ×2 (01:44→11:01)
[2021-11-05 05:38] LABS: BASOPHILS % (AUTO) 0.2 %; EOSINOPHILS # (AUTO) 0.1 10^3/uL (0.0-0.7); EOSINOPHILS % (AUTO) 1.2 %; HCT - HEMATOCRIT 31.4 % (37.0-47.0); HGB - HEMOGLOBIN 10.2 g/dL (12.0-16.0); LYMPHOCYTES # (AUTO) 1.3 10^3/uL (1.5-3.5); LYMPHOCYTES % (AUTO) 16.6 %; MEAN CORPUSCULAR HEMOGLOBIN 28.9 pg (27.0-31.0); MEAN CORPUSCULAR HGB CONC 32.5 g/dL (32.0-36.0); MEAN PLATELET VOLUME 9.3 fL (7.9-10.8); MONOCYTES # (AUTO) 0.9 10^3/uL (0.0-1.0); MONOCYTES % (AUTO) 11.2 %; NEUTROPHILS # (AUTO) 5.6 10^3/uL (1.5-6.6); NEUTROPHILS % (AUTO) 70.1 %; PLT - PLATELET COUNT 350 10^3/uL (130-450); RED BLOOD COUNT 3.53 10^6/uL (4.20-5.40); RED CELL DISTRIBUTION WIDTH 15.1 % (12.0-15.0)
[2021-11-05 05:43] LABS: CALCIUM 9.6 mg/dL (8.5-10.3); CREATININE 1.9 mg/dL (0.4-1.0); MAGNESIUM 2.3 mg/dL (1.7-2.8); POTASSIUM 3.5 mmol/L (3.5-5.0)
[2021-11-05] MEDS: GABAPENTIN 100 MG CAPSULE PO SCH ×3 (06:21→21:44)
[2021-11-05] MEDS: tiZANidine 4 MG TABLET PO SCH ×3 (06:21→21:45)
[2021-11-05] MEDS: LEVOTHYROXINE 25 MCG TABLET PO SCH (06:22)
[2021-11-05] MEDS: PANTOPRAZOLE 40 MG TABLET PO SCH (06:22)
--- NOTE | 2021-11-05 07:25 | PROVIDER PROGRESS NOTE ---
Subjective - Prog Note Date Prog Note Date: 11/05/21 - Subjective Subjective: She still feels lethargic and a little confused but improved compared to admission. She admits she cannot care for herself at home. She does complain of dysuria. Current Medications - Current Medications Current Medications: Active Medications Aspirin (Aspirin Ec 81 Mg Tablet) 81 mg PO DAILY [facility] Last Admin: 11/05/21 08:48 Dose: 81 mg Buprenorphine HCl (Buprenorphine/Naloxone 8-2 Mg Tab) 1 tab SL TID [facility] Carboxymethylcellulose (Carboxymethylcellulose Ophth Drops) 1 drops EACHEYE PRN PRN PRN Reason: Dry Eye Carvedilol (Carvedilol 12.5 Mg Tablet) 12.5 mg PO BID [facility] Last Admin: 11/05/21 08:51 Dose: 12.5 mg Cholecalciferol (Cholecalciferol 25 Mcg Tablet) 25 mcg PO DAILY [facility] Last Admin: 11/05/21 08:48 Dose: 25 mcg Docusate Sodium (Docusate Sodium 250 Mg Capsule) 250 - 500 mg PO DAILY [facility] Last Admin: 11/05/21 11:02 Dose: 250 mg Gabapentin (Gabapentin 100 Mg Capsule) 100 mg PO TID [facility] Last Admin: 11/05/21 06:21 Dose: 100 mg Gemfibrozil (Gemfibrozil 600 Mg Tablet) 600 mg PO BID [facility] Last Admin: 11/05/21 08:49 Dose: 600 mg Hydralazine HCl (Hydralazine Inj 20 Mg/Ml Vial) 10 mg IVP Q4H PRN PRN Reason: PER PHYSICIAN ORDER Last Admin: 11/04/21 17:37 Dose: 10 mg Ceftriaxone Sodium 1 gm/ (Sodium Chloride) 100 mls @ 200 mls/hr IV DAILY [facility] Last Infusion: 11/05/21 09:30 Dose: Infused Dextrose/Sodium Chloride (D5.45ns) 1,000 mls @ 125 mls/hr IV .Q8H [facility] Last Admin: 11/05/21 11:01 Dose: 125 mls/hr Levothyroxine Sodium (Levothyroxine 25 Mcg Tablet) 50 mcg PO QDAC [facility] Last Admin: 11/05/21 06:22 Dose: 50 mcg Multivitamins/Minerals (Multivitamin W/Minerals Tablet) 1 tab PO DAILYWM [facility] Last Admin: 11/05/21 08:48 Dose: 1 tab Nystatin (Nystatin Powder 15 Gm) 1 applic TOP BID [facility] Last Admin: 11/05/21 08:50 Dose: 1 applic Pantoprazole Sodium (Pantoprazole 40 Mg Tablet) 40 mg PO QDAC [facility] Last Admin: 11/05/21 06:22 Dose: 40 mg Polyethylene Glycol (Polyethylene Glycol 3350 17 Gm Packet) 17 gm PO DAILY [facility] Last Admin: 11/05/21 11:02 Dose: 17 gm Risperidone (Risperidone 1 Mg Tablet) 1 mg PO BID [facility] Last Admin: 11/05/21 08:49 Dose: 1 mg Senna (Senna 8.6 Mg Tablet) 8.6 - 17.2 mg PO DAILY [facility] Last Admin: 11/05/21 11:02 Dose: 8.6 mg Sodium Chloride (Sodium Chloride Flush 0.9% 10 Ml Syringe) 10 ml IVP PRN PRN PRN Reason: NEEDED PER PROVIDER ORDERS Sodium Chloride (Sodium Chloride Flush 0.9% 10 Ml Syringe) 10 ml IVP 0100,0900,1700 [facility] Last Admin: 11/05/21 08:49 Dose: 10 ml Tizanidine HCl (Tizanidine 4 Mg Tablet) 2 mg PO TID [facility] Last Admin: 11/05/21 06:21 Dose: 2 mg Venlafaxine HCl (Venlafaxine Er 75 Mg Capsule) 150 mg PO DAILY [facility] Last Admin: 11/05/21 08:48 Dose: 150 mg Cholecalciferol [Vitamin D3] 25 mcg PO DAILY 08/15/20 Gabapentin [Neurontin] 100 mg PO TID 08/15/20 Aspirin [Aspirin EC] 81 mg PO DAILY 12/27/20 Omeprazole Magnesium 20 mg PO DAILY 03/05/21 Tizanidine HCl 2 mg PO TID 07/06/21 Venlafaxine HCl [Effexor Xr] 150 mg PO DAILY 08/18/21 polyethylene glycoL 3350 [Miralax] 17 gm PO DAILY PRN 08/18/21 Furosemide [Lasix] 20 mg PO DAILY 09/13/21 carvediloL [Coreg] 12.5 mg PO BID 11/04/21 Objective - Vital Signs/Intake & Output Reviewed Vital Signs: Yes Vital Signs: Vital Signs x48h Temp Pulse Resp BP Pulse Ox 11/05/21 04:47 37.1 C 56 L 18 159/74 H 96 11/05/21 00:00 37.1 C 63 16 149/74 H 97 Intake & Output: Intake & Output 11/02/21 11/03/21 11/04/21 11/05/21 23:59 23:59 23:59 23:59 Intake Total 2065 3110.000 1550 Output Total 650 1852 Balance 1415 6284.477 4347 - Objective General Appearance: positive: No acute distress, Alert Eyes Bilateral: positive: Normal inspection, Conjunctivae nml ENT: positive: ENT inspection nml Neck: positive: Nml inspection Respiratory: positive: No respiratory distress. negative: Wheezes, Rales Cardiovascular: positive: Regular rate & rhythm, No murmur. negative: Tachycardia Abdomen: positive: Non-tender, No distention. negative: Tenderness Skin: positive: Warm, Dry Extremities: positive: Pedal edema (Trace edema bilateral lower extremities) Neurologic/Psychiatric: positive: Disoriented to time (She is oriented to month and day but initially answered both of these incorrectly before correcting herself), Other (She moving all 4 extremities without any focal deficits.). negative: Disoriented to person, Disoriented to place - Lab Results Fish Bones: 11/05/21 04:26 11/05/21 16:02 Other Labs: Lab Results x24hrs 11/05/21 11/05/21 Range/Units 04:26 04:26 WBC 8.0 (4.8-10.8) x10^3/uL RBC 3.53 L (4.20-5.40) 10^6/uL Hgb 10.2 L (12.0-16.0) g/dL Hct 31.4 L (37.0-47.0) % MCV 89.0 (81.0-99.0) fL MCH 28.9 (27.0-31.0) pg MCHC 32.5 (32.0-36.0) g/dL RDW 15.1 H (12.0-15.0) % Plt Count 350 (130-450) 10^3/uL MPV 9.3 (7.9-10.8) fL Neut # (Auto) 5.6 (1.5-6.6) 10^3/uL Lymph # (Auto) 1.3 L (1.5-3.5) 10^3/uL [place] # (Auto) 0.9 (0.0-1.0) 10^3/uL Eos # (Auto) 0.1 (0.0-0.7) 10^3/uL Baso # (Auto) 0.0 (0.0-0.1) 10^3/uL Absolute Nucleated RBC 0.00 x10^3/uL Nucleated RBC % 0.0 /100WBC Sodium 146 H (135-145) mmol/L Potassium 3.5 (3.5-5.0) mmol/L Chloride 110 (101-111) mmol/L Carbon Dioxide 24 (21-32) mmol/L Anion Gap 12.0 (6-13) BUN 47 H (6-20) mg/dL Creatinine 1.9 H (0.4-1.0) mg/dL Estimated GFR (MDRD) 26 L (>89) Glucose 140 H (70-100) mg/dL Calcium 9.6 (8.5-10.3) mg/dL Magnesium 2.3 (1.7-2.8) mg/dL ABX Reporting Has patient been on IV antibiotics over the past 48 hours?: Yes Assessment/Plan - Problem List (1) Metabolic encephalopathy Impression: This is significantly improved and she is close to her baseline. We suspect her encephalopathy is related to polypharmacy and taking her medications incorrectly. She admits she cannot care for herself at home and the plan is to look for long-term care given her multiple readmissions for similar presentation and she has always done well when hospitalized or at a retirement [facility] [facility]. Appreciate social work input regarding disposition. We have resumed her home medications but will avoid any other sedatives. (2) UTI (urinary tract infection) Impression: Concern for a possible urinary tract infection given urinalysis revealed pyuria and bacteriuria. She was also altered on admission was unable provide a history so we treated her presumptively with ceftriaxone. Urine cultures growing Proteus. We will switch her to oral Ceftin to complete 5 days of therapy. Qualifiers: Urinary tract infection type: acute cystitis Hematuria presence: without hematuria Qualified Code(s): N30.00 - Acute cystitis without hematuria (3) Acute kidney injury superimposed on CKD Impression: This was likely prerenal injury secondary to volume depletion. Her creatinine was around 2.5 on admission and baseline is 1.9. Renal function is currently back to baseline. We will continue to monitor. (4) GERD (gastroesophageal reflux disease) Impression: Continue home omeprazole. (5) HTN (hypertension) Impression: She is hypertensive with systolics in the 140s. We will resume her home carvedilol. We will add amlodipine if necessary. (6) Hypothyroidism Impression: Continue Synthroid. (7) Diabetes mellitus type 2, diet-controlled Impression: Her last A1c was less than 6%. Continue carb controlled diet.
[2021-11-05] MEDS: ASPIRIN EC 81 MG TABLET PO SCH (08:48)
[2021-11-05] MEDS: cefTRIAXone 1 GM in SODIUM CHLORIDE 0.9% MINIBAG 100 ML IV SCH (08:48)
[2021-11-05] MEDS: VENLAFAXINE ER 75 MG CAPSULE PO SCH (08:48)
[2021-11-05] MEDS: CHOLECALCIFEROL 25 MCG TABLET PO SCH (08:48)
[2021-11-05] MEDS: MULTIVITAMIN W/MINERALS TABLET PO SCH (08:48)
[2021-11-05] MEDS: risperiDONE 1 MG TABLET PO SCH ×2 (08:49→21:44)
[2021-11-05] MEDS: gemfibroziL 600 MG TABLET PO SCH ×2 (08:49→21:44)
[2021-11-05] MEDS: NYSTATIN POWDER 15 GM TOP SCH ×2 (08:50→21:44)
[2021-11-05] MEDS: carvediloL 12.5 MG TABLET PO SCH ×2 (08:51→21:45)
[2021-11-05] MEDS: polyethylene glycoL 3350 17 GM PACKET PO SCH (11:02)
[2021-11-05] MEDS: SENNA 8.6 MG TABLET PO SCH (11:02)
[2021-11-05] MEDS: DOCUSATE SODIUM 250 MG CAPSULE PO SCH (11:02)
[2021-11-05] MEDS: BUPRENORPHINE/NALOXONE 8-2 MG TAB SL SCH ×2 (14:07→22:20)
[2021-11-05 16:23] LABS: CALCIUM 8.9 mg/dL (8.5-10.3); CREATININE 2.1 mg/dL (0.4-1.0); POTASSIUM 3.6 mmol/L (3.5-5.0)
[2021-11-05] MEDS ORDERED: SODIUM CHLORIDE 0.9% 1,000 ML IV SCH (19:00)
[2021-11-06] MEDS: SODIUM CHLORIDE FLUSH 0.9% 10 ML SYRINGE IVP SCH ×2 (00:34→09:19)
[2021-11-06] MEDS: GABAPENTIN 100 MG CAPSULE PO SCH ×2 (05:42→13:18)
[2021-11-06] MEDS: PANTOPRAZOLE 40 MG TABLET PO SCH (05:42)
[2021-11-06] MEDS: tiZANidine 4 MG TABLET PO SCH ×2 (05:42→13:19)
[2021-11-06] MEDS: LEVOTHYROXINE 25 MCG TABLET PO SCH (05:42)
[2021-11-06 05:56] LABS: BASOPHILS % (AUTO) 0.4 %; EOSINOPHILS # (AUTO) 0.3 10^3/uL (0.0-0.7); EOSINOPHILS % (AUTO) 4.3 %; HCT - HEMATOCRIT 29.9 % (37.0-47.0); HGB - HEMOGLOBIN 9.5 g/dL (12.0-16.0); LYMPHOCYTES # (AUTO) 1.8 10^3/uL (1.5-3.5); LYMPHOCYTES % (AUTO) 23.6 %; MEAN CORPUSCULAR HEMOGLOBIN 28.5 pg (27.0-31.0); MEAN CORPUSCULAR HGB CONC 31.8 g/dL (32.0-36.0); MEAN CORPUSCULAR VOLUME 89.8 fL (81.0-99.0); MEAN PLATELET VOLUME 9.4 fL (7.9-10.8); MONOCYTES # (AUTO) 0.8 10^3/uL (0.0-1.0); MONOCYTES % (AUTO) 10.1 %; NEUTROPHILS # (AUTO) 4.7 10^3/uL (1.5-6.6); NEUTROPHILS % (AUTO) 61.1 %; PLT - PLATELET COUNT 260 10^3/uL (130-450); RED BLOOD COUNT 3.33 10^6/uL (4.20-5.40); WHITE BLOOD COUNT 7.7 x10^3/uL (4.8-10.8)
[2021-11-06] MEDS: BUPRENORPHINE/NALOXONE 8-2 MG TAB SL SCH ×2 (06:01→13:18)
[2021-11-06 06:07] LABS: CREATININE 1.8 mg/dL (0.4-1.0); POTASSIUM 3.9 mmol/L (3.5-5.0)
[2021-11-06] MEDS: carvediloL 12.5 MG TABLET PO SCH (09:08)
[2021-11-06] MEDS: CHOLECALCIFEROL 25 MCG TABLET PO SCH (09:17)
[2021-11-06] MEDS: risperiDONE 1 MG TABLET PO SCH (09:18)
[2021-11-06] MEDS: DOCUSATE SODIUM 250 MG CAPSULE PO SCH (09:18)
[2021-11-06] MEDS: SENNA 8.6 MG TABLET PO SCH (09:18)
[2021-11-06] MEDS: polyethylene glycoL 3350 17 GM PACKET PO SCH (09:18)
[2021-11-06] MEDS: gemfibroziL 600 MG TABLET PO SCH (09:18)
[2021-11-06] MEDS: MULTIVITAMIN W/MINERALS TABLET PO SCH (09:18)
[2021-11-06] MEDS: VENLAFAXINE ER 75 MG CAPSULE PO SCH (09:18)
[2021-11-06] MEDS: ASPIRIN EC 81 MG TABLET PO SCH (09:18)
[2021-11-06] MEDS: NYSTATIN POWDER 15 GM TOP SCH (09:19)
--- NOTE | 2021-11-06 09:59 | Discharge Plan ---
Discharge Plan Problem Reviewed?: Yes Disposition: Home Health Service Condition: Stable Prescriptions: cefUROXime axetiL [Ceftin] 250 mg PO BID #3 tablet Diet: Diabetic Activity Restrictions: Activity as Tolerated Assistance Devices: [facility] Concerns: You were admitted to the hospital because of confusion which we feel is due to you not taking your medications appropriately and you may have also had a urinary tract infection. We treated you with IV fluids and antibiotics and we held your medications for a day. You have had improvement in your mentation and you are now back to baseline. Plan of Treatment: Please take Ceftin 250 mg twice daily beginning this evening until tomorrow night. This is to complete 5 days of treatment for the urinary tract infection. Please stop taking Lasix as this can cause you to become dehydrated and you do not have evidence of excess fluid retention. We have placed a referral to home health. 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 Please take your medications exactly as prescribed. Care Goals: The goal is to find long-term care to prevent future admissions again as we believe you take your medications incorrectly at home which caused you to become confused and return to the hospital. Assessment: Patient expressed understanding of the treatment plan. Additional Instructions or Follow Up instructions: Please follow-up with your primary care physician in 1 to 2 weeks. No Smoking: If you smoke, Please STOP! Call for help. Follow-up with: Dae Malagon MD [Primary Care Provider] -
--- NOTE | 2021-11-06 10:16 | DISCHARGE SUMMARY ---
Discharge Summary Admit Date: 11/03/21 Discharge Date: 11/06/21 Discharging Provider: Jesse Aguero Primary Care Provider: Dae Malagon Code Status: Attempt Resuscitation Condition at Discharge: Stable Discharge Disposition: Home Health Service - DIAGNOSES Admission Diagnoses: Metabolic encephalopathy UTI VICKIE on CKD Type 2 diabetes mellitus Hypertension Hyperlipidemia Hypothyroidism GERD Discharge Diagnoses with Status of Each Condition: Metabolic encephalopathy - resolved. UTI - improved. VICKIE on CKD - resolved. GERD - stable. Hypertension - stable. Hypothyroidism - stable. Type 2 diabetes mellitus - stable. - HPI History of Present Illness: H&P per Dr. Brewster: "Patient is a 71-year-old female who presents to the emergency department with altered mental status today. Per EMS the is concerned about recurrent UTI. Has had issues with medication management at home in the past as well as recurrent UTIs. Has been hospitalized several times for same. Was recently discharged to a half-way, unclear when she came back to her home with her ." HPI above is obtained from the ED physicians H&P because the patient is currently altered and unable to provide a reliable history. At bedside she is awake but perseverating about needing to spit. She mainly repeats words from the questions she has just been asked. - CONSULTS | PROCEDURES Consultations: Social Work, Home Health - HOSPITAL COURSE Hospital Course: She was admitted for metabolic colopathy which was thought to be secondary to either urinary tract infection, dehydration, and misuse of her home medications. She has had multiple admissions in the past for similar presentation. Her home medications were held and she was treated with IV fluids and started on ceftriaxone empirically for urinary tract infection. Her urine culture grew Proteus and switch to oral Ceftin. She was continued on the Ceftin to complete 5 days of therapy for a UTI given she did complain of dysuria once her mentation improved. Her encephalopathy improved each day and her home medications were resumed. She continued to do well and returned to her baseline mental status. Her acute kidney injury resolved with IV fluids. Social work was consulted to assist with disposition and we also discussed this extensively with the patient. She did agree to long-term care as she has done well in the past when at a SNF or long-term care and immediately when she returns home she becomes altered likely due to taking her medications inappropriately. Unfortunately, we cannot get her to long-term care at this time and [facility] declined to take her back because the patient has left there multiple times in this past despite the recommendations and offered to have her stay under long-term care. She was therefore discharged home with home health but social work to speak with her showcase maker regarding the need for long-term care which will be obtained on an outpatient basis - ALLERGIES Allergies/Adverse Reactions: Allergies Allergy/AdvReac Type Severity Reaction Status Date / Time NSAIDS (Non-Steroidal Allergy Mild Hives Verified 11/03/21 13:20 Anti-Inflamma green pepper Allergy Unknown Verified 11/03/21 13:20 lisinopril Allergy Unknown Verified 11/03/21 13:20 pepper (genus Capsicum) Allergy Unknown Verified 11/03/21 13:20 Sulfa (Sulfonamide AdvReac Mild Rash Verified 11/03/21 13:20 Antibiotics) ondansetron [From Zofran] AdvReac Dizziness Verified 11/03/21 13:20 - MEDICATIONS Home Medications: Ambulatory Orders Medication Instructions Recorded Confirmed Levothyroxine Sodium 50 mcg PO QDAC #30 07/17/19 11/04/21 gemfibroziL [Gemfibrozil] 600 mg PO BID #60 07/17/19 11/04/21 Cholecalciferol [Vitamin D3] 25 mcg PO DAILY 08/15/20 11/04/21 Gabapentin [Neurontin] 100 mg PO TID 08/15/20 11/04/21 Aspirin [Aspirin EC] 81 mg PO DAILY 12/27/20 11/04/21 Omeprazole Magnesium 20 mg PO DAILY 03/05/21 11/04/21 Tizanidine HCl 2 mg PO TID 07/06/21 11/04/21 Min Oil/Dimeth/Coconut Oil Crm 1 applic TOP PRN PRN 07/23/21 11/04/21 [Cavilon] Zinc Oxide 20% Oint [Zinc Oxide] 1 applic TOP PRN PRN 07/23/21 11/04/21 risperiDONE [RisperDAL] 1 mg PO BID tablet 07/23/21 11/04/21 Venlafaxine HCl [Effexor Xr] 150 mg PO DAILY 08/18/21 11/04/21 polyethylene glycoL 3350 [Miralax] 17 gm PO DAILY PRN 08/18/21 11/04/21 Buprenorphine HCl/Naloxone HCl 1 tab SL TID 5 Days #15 tab 09/24/21 11/04/21 [Suboxone 8-2 mg Tab] Calcium Carbonate [Tums (Calcium 500 mg PO TID PRN tablet 09/24/21 11/04/21 Carbonate 500mg)] Carboxymethylcellulose 1% Opht 1 drops EACHEYE PRN PRN drops 09/24/21 11/04/21 [Refresh 1% Ophth Drops] Docusate Sodium 250Mg Capsule 250 - 500 mg PO DAILY 09/24/21 11/04/21 [Colace 250Mg Capsule] LORazepam [Ativan] 0.5 mg PO BID PRN #10 tablet 09/24/21 11/04/21 Multivitamin W/Minerals [Theragran 1 tab PO DAILYWM tablet 09/24/21 11/04/21 M] carvediloL [Coreg] 12.5 mg PO BID 11/04/21 11/04/21 cefUROXime axetiL [Ceftin] 250 mg PO BID #3 tablet 11/06/21 - PHYSICAL EXAM AT DISCHARGE General Appearance: positive: No acute distress, Alert Eyes Bilateral: positive: Normal inspection, Conjunctivae nml ENT: positive: ENT inspection nml Neck: positive: Nml inspection Respiratory: positive: No respiratory distress. negative: Wheezes, Rales Cardiovascular: positive: Regular rate & rhythm, No murmur. negative: Extrasystoles Abdomen: positive: Non-tender, No distention. negative: Tenderness Skin: positive: Warm, Dry Extremities: positive: No pedal edema Neurologic/Psychiatric: positive: Other (No focal deficits.). negative: Disoriented to person, Disoriented to place Physical Exam Other/Comments: Vital Signs - 24 hr 11/05/21 11/06/21 11/06/21 20:18 00:31 05:16 Temperature 36.5 C 36.5 C 36.6 C Heart Rate [ 61 56 L 54 L Brachial] Respiratory 20 18 18 Rate Blood Pressure 138/58 H 122/45 L 149/60 H [Right Brachial artery] O2 Saturation 96 94 95 11/06/21 11/06/21 07:32 13:18 Temperature 36.5 C 36.5 C Heart Rate [ 50 L 53 L Brachial] Respiratory 16 16 Rate Blood Pressure 131/45 H 138/58 H [Right Brachial artery] O2 Saturation 96 97 Oxygen O2 Source [Without Activity] Room air O2 Source Room air - LABS Result Diagrams: 11/06/21 05:15 11/06/21 05:15 - FOLLOW UP Follow Up: She will be followed up by home health on discharge and she was instructed to follow-up with her primary care physician in 1 to 2 weeks. She will ultimately need long-term care given her frequent readmissions. - TIME SPENT Time Spent in Discharge (Minutes): 33
[2021-11-06] MEDS ORDERED: BISACODYL 10 MG SUPP PR ONE (12:11)
[2021-11-06] MEDS ORDERED: ACETAMINOPHEN 500 MG TABLET PO STA (12:26)
[2021-11-06 13:19] VITALS: BP 138/58
== END 2021-11-06 16:56 | disposition home health service (06) | DRG 71 ==
LOC: EDUNIT# → ED 13:11 → MS2 15:28
PROVIDERS: ADMIT Internal Medicine; ATTEND Internal Medicine
DX: R41.82 Altered mental status, unspecified (principal); G93.41 Metabolic encephalopathy; N17.9 Acute kidney failure, unspecified; N30.00 Acute cystitis without hematuria; N18.9 Chronic kidney disease, unspecified; K21.9 Gastro-esophageal reflux disease without esophagitis; K59.09 Other constipation; I12.9 Hypertensive chronic kidney disease with stage 1 through stage 4 chronic kidney disease, or unspecified chronic kidney disease; E03.9 Hypothyroidism, unspecified; E11.22 Type 2 diabetes mellitus with diabetic chronic kidney disease; E11.42 Type 2 diabetes mellitus with diabetic polyneuropathy; E78.00 Pure hypercholesterolemia, unspecified; J44.9 Chronic obstructive pulmonary disease, unspecified; F17.210 Nicotine dependence, cigarettes, uncomplicated; F31.9 Bipolar disorder, unspecified; F41.9 Anxiety disorder, unspecified; M19.90 Unspecified osteoarthritis, unspecified site; M54.9 Dorsalgia, unspecified; G89.29 Other chronic pain; R32 Unspecified urinary incontinence; Z20.822 Contact with and (suspected) exposure to COVID-19; Z79.82 Long term (current) use of aspirin; Z79.890 Hormone replacement therapy; Z79.899 Other long term (current) drug therapy; Z82.49 Family history of ischemic heart disease and other diseases of the circulatory system; Z86.718 Personal history of other venous thrombosis and embolism; Z88.2 Allergy status to sulfonamides; Z88.6 Allergy status to analgesic agent; Z88.8 Allergy status to other drugs, medicaments and biological substances; Z91.018 Allergy to other foods; Z91.14 Patient's other noncompliance with medication regimen; Z96.659 Presence of unspecified artificial knee joint
CPT/HCPCS: 36415; 80048; 80053; 81001; 83690; 83735; 85025; 87077; 87086; 87181; 87635; 99281; 99285; A9270; J2060; 81003

== ENCOUNTER 2021-11-10 18:31 | Outpatient (CLI) | payer MEDICARE, MEDICAID | END 2021-11-10 18:32 | disposition home or self-care (01) | LOC: EMS 18:31 | DX: M79.672 Pain in left foot (principal); R45.89 Other symptoms and signs involving emotional state; I95.9 Hypotension, unspecified; R00.1 Bradycardia, unspecified; W06.XXXA Fall from bed, initial encounter; Y92.003 Bedroom of unspecified non-institutional (private) residence as the place of occurrence of the external cause | CPT/HCPCS: A0425; A0429 ==

== ENCOUNTER 2021-11-10 19:06 | Inpatient (IN) | payer MEDICARE, MEDICAID ==
--- NOTE | 2021-11-10 19:11 | ED Physician Documentation ---
PD HPI ALTERED MENTAL STATUS - Stated complaint Stated Complaint: AMS/FALL - History obtained from History obtained from: EMS, Other (patient unable to contribute to HPI due to AMS) - History of Present Illness Quality / character: Less responsive Contributing factors: No: Anticoagulated Treatment FINANCIAL INTERN: Accelian (113) Recently seen: Admitted - Additional information Additional information: BIBA from home, patient reportedly fell and when EMS arrived her chief complaint was left foot pain. Initially her GCS was 14 but was yelling out and crying. En route to ED patient's mental status rapidly deteriorated and she arrives to ED only following one or two simple commands (such as "open your eyes", or "open your mouth", but with little effort), nonverbal except for moaning when IV is placed. Also of note is patient was normotensive on EMS arrival but blood pressures have been going down and most recent reading was 60s SBP. 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: None : Incontinence, Chronic bladder infection HEENT: None Psych: Anxiety, Bipolar disorder, Other Musculoskeletal: Osteoarthritis, Fatigue, Chronic back pain, Other Derm: Other - Past Surgical History Past Surgical History: Yes General: EGD, Colonoscopy Ortho: Knee replacement, 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 surgery /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: 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 HEENT: Tonsil/Adenoidectomy - Present Medications Home Medications: Ambulatory Orders Medication Instructions Recorded Confirmed Levothyroxine Sodium 50 mcg PO QDAC #30 07/17/19 11/04/21 gemfibroziL [Gemfibrozil] 600 mg PO BID #60 07/17/19 11/04/21 Cholecalciferol [Vitamin D3] 25 mcg PO DAILY 08/15/20 11/04/21 Gabapentin [Neurontin] 100 mg PO TID 08/15/20 11/04/21 Aspirin [Aspirin EC] 81 mg PO DAILY 12/27/20 11/04/21 Omeprazole Magnesium 20 mg PO DAILY 03/05/21 11/04/21 Tizanidine HCl 2 mg PO TID 07/06/21 11/04/21 Min Oil/Dimeth/Coconut Oil Crm 1 applic TOP PRN PRN 07/23/21 11/04/21 [Cavilon] Zinc Oxide 20% Oint [Zinc Oxide] 1 applic TOP PRN PRN 07/23/21 11/04/21 risperiDONE [RisperDAL] 1 mg PO BID tablet 07/23/21 11/04/21 Venlafaxine HCl [Effexor Xr] 150 mg PO DAILY 08/18/21 11/04/21 polyethylene glycoL 3350 [Miralax] 17 gm PO DAILY PRN 08/18/21 11/04/21 Buprenorphine HCl/Naloxone HCl 1 tab SL TID 5 Days #15 tab 09/24/21 11/04/21 [Suboxone 8-2 mg Tab] Calcium Carbonate [Tums (Calcium 500 mg PO TID PRN tablet 09/24/21 11/04/21 Carbonate 500mg)] Carboxymethylcellulose 1% Opht 1 drops EACHEYE PRN PRN drops 09/24/21 11/04/21 [Refresh 1% Ophth Drops] Docusate Sodium 250Mg Capsule 250 - 500 mg PO DAILY 09/24/21 11/04/21 [Colace 250Mg Capsule] LORazepam [Ativan] 0.5 mg PO BID PRN #10 tablet 09/24/21 11/04/21 Multivitamin W/Minerals [Theragran 1 tab PO DAILYWM tablet 09/24/21 11/04/21 M] carvediloL [Coreg] 12.5 mg PO BID 11/04/21 11/04/21 cefUROXime axetiL [Ceftin] 250 mg PO BID #3 tablet 11/06/21 - Allergies Allergies/Adverse Reactions: Allergies Allergy/AdvReac Type Severity Reaction Status Date / Time NSAIDS (Non-Steroidal Allergy Mild Hives Verified 11/10/21 19:12 Anti-Inflamma green pepper Allergy Unknown Verified 11/10/21 19:12 lisinopril Allergy Unknown Verified 11/10/21 19:12 pepper (genus Capsicum) Allergy Unknown Verified 11/10/21 19:12 Sulfa (Sulfonamide AdvReac Mild Rash Verified 11/10/21 19:12 Antibiotics) ondansetron [From Zofran] AdvReac Dizziness Verified 11/10/21 19:12 - Social History Does the pt smoke?: Yes Smoking Status: Current every day smoker Does the pt drink ETOH?: No Does the pt have substance abuse?: No - Immunizations Immunizations are current?: Yes Immunizations: TDAP >10years/unknown - POLST Patient has POLST: No POLST Status: Full Code PD ED PE NORMAL - Vitals Vital signs reviewed: Yes - General General: Other (overweight female , lethargic, nonverbal except moaning with IV attempts) - HEENT HEENT: Atraumatic - Cardiac Cardiac: RRR, No murmur - Respiratory Respiratory: No respiratory distress, Other (scattered rhonchi) - Abdomen Abdomen: Soft, Non tender - Derm Derm: Other (pale) - Neuro Eye Opening: To Voice Motor: Localizes to Pain Verbal: Incomprehensible GCS Score: 10 PD ED PE EXPANDED - Extremities Extremities: Pedal edema bilateral Results - Vitals Vitals: Vital Signs - 24 hr 11/10/21 11/10/21 11/10/21 19:12 19:24 19:32 Temperature 36.6 C Heart Rate 62 Respiratory 11 L Rate Blood Pressure 62/52 L 92/72 133/62 H O2 Saturation 100 11/10/21 11/10/21 11/10/21 19:45 20:15 20:21 Temperature Heart Rate 44 L 45 L 48 L Respiratory 11 L 10 L 10 L Rate Blood Pressure 133/63 H 123/77 123/77 O2 Saturation 100 100 100 11/10/21 11/10/21 11/10/21 20:30 21:04 21:23 Temperature Heart Rate 44 L 51 L 51 L Respiratory 9 L 11 L 13 Rate Blood Pressure 108/49 L 129/55 L 116/48 L O2 Saturation 100 100 100 11/10/21 11/10/21 21:30 22:00 Temperature Heart Rate 50 L 56 L Respiratory 11 L 10 L Rate Blood Pressure 134/52 H 128/46 L O2 Saturation 100 100 Oxygen O2 Source [Without Activity] Room air O2 Source Nasal cannula - EKG (time done) No standard instances Rate: Rate (enter#) (49) Rhythm: Sinus bradycardia [place]: LAD Intervals: Normal AL QRS: Normal Ischemia: Normal ST segments - Labs Labs: Microbiology 11/10/21 20:20 Urine Culture - Preliminary Urine,Catheterized CULTURE IN PROGRESS. RESULTS TO FOLLOW. Laboratory Tests 11/10/21 11/10/21 11/10/21 19:21 19:21 19:21 WBC 7.9 RBC 3.63 L Hgb 10.6 L Hct 33.7 L MCV 92.8 MCH 29.2 MCHC 31.5 L RDW 15.7 H Plt Count 266 MPV 9.8 Neut # (Auto) 6.5 Lymph # (Auto) 0.7 L [place] # (Auto) 0.5 Eos # (Auto) 0.2 Baso # (Auto) 0.0 Absolute Nucleated RBC 0.00 Nucleated RBC % 0.0 Sodium 143 Potassium 4.5 Chloride 111 Carbon Dioxide 22 Anion Gap 10.0 BUN 44 H Creatinine 2.2 H Estimated GFR (MDRD) 22 L Glucose 95 Lactic Acid Calcium 8.9 Total Bilirubin 0.5 AST 12 ALT 11 Alkaline Phosphatase 84 B-Natriuretic Peptide 219 H Total Protein 7.0 Albumin 3.3 Globulin 3.7 Albumin/Globulin Ratio 0.9 L Lipase 25 TSH Urine Color Urine Clarity Urine pH Ur Specific [place] Urine Protein Urine Glucose (UA) Urine Ketones Urine Occult Blood Urine Nitrite Urine Bilirubin Urine Urobilinogen Ur Leukocyte Esterase Urine RBC Urine WBC Urine WBC Clumps Ur Squamous Epith Cells Urine Bacteria Ur Microscopic Review Urine Culture Comments Nasal Adenovirus (PCR) Nasal B. parapertussis DNA (PCR) Nasal Coronavir 229E PCR Nasal Coronavir HKU1 PCR Nasal Coronavir NL63 PCR Nasal Coronavir OC43 PCR Nasal Enterovir/Rhinovir PCR Nasal Influenza B PCR Nasal Influenza A PCR Nasal Parainfluen 1 PCR Nasal Parainfluen 2 PCR Nasal Parainfluen 3 PCR Nasal Parainfluen 4 PCR Nasal RSV (PCR) Nasal B.pertussis DNA PCR Nasal C.pneumoniae (PCR) Misael Human Metapneumo PCR Nasal M.pneumoniae (PCR) Nasal SARS-CoV-2 (PCR) Urine Opiates Screen Ur Oxycodone Screen Urine Methadone Screen Ur Propoxyphene Screen Ur Barbiturates Screen Ur Tricyclics Screen Ur Phencyclidine Scrn Ur Amphetamine Screen U Methamphetamines Scrn U Benzodiazepines Scrn Urine Cocaine Screen U Cannabinoids Screen Ethyl Alcohol < 5.0 11/10/21 11/10/21 11/10/21 19:21 20:20 20:24 WBC RBC Hgb Hct MCV MCH MCHC RDW Plt Count MPV Neut # (Auto) Lymph # (Auto) [place] # (Auto) Eos # (Auto) Baso # (Auto) Absolute Nucleated RBC Nucleated RBC % Sodium Potassium Chloride Carbon Dioxide Anion Gap BUN Creatinine Estimated GFR (MDRD) Glucose Lactic Acid 1.2 Calcium Total Bilirubin AST ALT Alkaline Phosphatase B-Natriuretic Peptide Total Protein Albumin Globulin Albumin/Globulin Ratio Lipase TSH 1.32 Urine Color YELLOW Urine Clarity CLEAR Urine pH 6.0 Ur Specific [place] 1.010 Urine Protein NEGATIVE Urine Glucose (UA) NEGATIVE Urine Ketones NEGATIVE Urine Occult Blood TRACE-INTA Urine Nitrite NEGATIVE Urine Bilirubin NEGATIVE Urine Urobilinogen 0.2 (NORMAL) Ur Leukocyte Esterase SMALL H Urine RBC 0-5 Urine WBC >25 H Urine WBC Clumps PRESENT Ur Squamous Epith Cells FEW Squamous Urine Bacteria Few Ur Microscopic Review INDICATED Urine Culture Comments INDICATED Nasal Adenovirus (PCR) Nasal B. parapertussis DNA (PCR) Nasal Coronavir 229E PCR Nasal Coronavir HKU1 PCR Nasal Coronavir NL63 PCR Nasal Coronavir OC43 PCR Nasal Enterovir/Rhinovir PCR Nasal Influenza B PCR Nasal Influenza A PCR Nasal Parainfluen 1 PCR Nasal Parainfluen 2 PCR Nasal Parainfluen 3 PCR Nasal Parainfluen 4 PCR Nasal RSV (PCR) Nasal B.pertussis DNA PCR Nasal C.pneumoniae (PCR) Misael Human Metapneumo PCR Nasal M.pneumoniae (PCR) Nasal SARS-CoV-2 (PCR) Urine Opiates Screen NEGATIVE Ur Oxycodone Screen NEGATIVE Urine Methadone Screen NEGATIVE Ur Propoxyphene Screen NEGATIVE Ur Barbiturates Screen NEGATIVE Ur Tricyclics Screen NEGATIVE Ur Phencyclidine Scrn NEGATIVE Ur Amphetamine Screen NEGATIVE U Methamphetamines Scrn NEGATIVE U Benzodiazepines Scrn NEGATIVE Urine Cocaine Screen NEGATIVE U Cannabinoids Screen NEGATIVE Ethyl Alcohol 11/10/21 20:44 WBC RBC Hgb Hct MCV MCH MCHC RDW Plt Count MPV Neut # (Auto) Lymph # (Auto) [place] # (Auto) Eos # (Auto) Baso # (Auto) Absolute Nucleated RBC Nucleated RBC % Sodium Potassium Chloride Carbon Dioxide Anion Gap BUN Creatinine Estimated GFR (MDRD) Glucose Lactic Acid Calcium Total Bilirubin AST ALT Alkaline Phosphatase B-Natriuretic Peptide Total Protein Albumin Globulin Albumin/Globulin Ratio Lipase TSH Urine Color Urine Clarity Urine pH Ur Specific [place] Urine Protein Urine Glucose (UA) Urine Ketones Urine Occult Blood Urine Nitrite Urine Bilirubin Urine Urobilinogen Ur Leukocyte Esterase Urine RBC Urine WBC Urine WBC Clumps Ur Squamous Epith Cells Urine Bacteria Ur Microscopic Review Urine Culture Comments Nasal Adenovirus (PCR) NOT DETECTED Nasal B. parapertussis DNA (PCR) NOT DETECTED Nasal Coronavir 229E PCR NOT DETECTED Nasal Coronavir HKU1 PCR NOT DETECTED Nasal Coronavir NL63 PCR NOT DETECTED Nasal Coronavir OC43 PCR NOT DETECTED Nasal Enterovir/Rhinovir PCR NOT DETECTED Nasal Influenza B PCR NOT DETECTED Nasal Influenza A PCR NOT DETECTED Nasal Parainfluen 1 PCR NOT DETECTED Nasal Parainfluen 2 PCR NOT DETECTED Nasal Parainfluen 3 PCR NOT DETECTED Nasal Parainfluen 4 PCR NOT DETECTED Nasal RSV (PCR) NOT DETECTED Nasal B.pertussis DNA PCR NOT DETECTED Nasal C.pneumoniae (PCR) NOT DETECTED Misael Human Metapneumo PCR NOT DETECTED Nasal M.pneumoniae (PCR) NOT DETECTED Nasal SARS-CoV-2 (PCR) NOT DETECTED Urine Opiates Screen Ur Oxycodone Screen Urine Methadone Screen Ur Propoxyphene Screen Ur Barbiturates Screen Ur Tricyclics Screen Ur Phencyclidine Scrn Ur Amphetamine Screen U Methamphetamines Scrn U Benzodiazepines Scrn Urine Cocaine Screen U Cannabinoids Screen Ethyl Alcohol - Rads (name of study) chest xray Radiology: Prelim report reviewed, See rad report CT head Radiology: Prelim report reviewed, See rad report PD MEDICAL DECISION MAKING - ED course Complexity details: reviewed old records, reviewed results, re-evaluated patient, considered differential ED course: This is patient's eleventh [facility] ED visit over past 12 months. Of her previous 10 visits, she was admitted eight times which have all involved AMS. she presents very altered at this time, UA is c/w UTI. She had hypotension (as low as 60s SBP) just FINANCIAL INTERN and her initial readings in ED were similar. Her blood pressures steadily increased as fluids were infused. bun and creatinine are comparable to baseline. Late in ED stay she remains obtunded. she is given IV rocephin for UTI. D/W Dr. Brewster, accepts to hospitalist service Departure - Departure Disposition: 66 [facility] DC/Xfer Clinical Impression: UTI (urinary tract infection) Qualifiers: Urinary tract infection type: acute cystitis Hematuria presence: without hematuria Qualified Code(s): N30.00 - Acute cystitis without hematuria Altered mental status Qualifiers: Altered mental status type: stupor Qualified Code(s): R40.1 - Stupor Condition: Stable Discharge Date/Time: 11/10/21 22:49
[2021-11-10] MEDS ORDERED: SODIUM CHLORIDE 0.9% 1,000 ML IV STA (19:14)
[2021-11-10 19:29] LABS: BASOPHILS % (AUTO) 0.3 %; EOSINOPHILS # (AUTO) 0.2 10^3/uL (0.0-0.7); HCT - HEMATOCRIT 33.7 % (37.0-47.0); HGB - HEMOGLOBIN 10.6 g/dL (12.0-16.0); LYMPHOCYTES # (AUTO) 0.7 10^3/uL (1.5-3.5); LYMPHOCYTES % (AUTO) 9.1 %; MEAN CORPUSCULAR HEMOGLOBIN 29.2 pg (27.0-31.0); MEAN CORPUSCULAR HGB CONC 31.5 g/dL (32.0-36.0); MEAN CORPUSCULAR VOLUME 92.8 fL (81.0-99.0); MEAN PLATELET VOLUME 9.8 fL (7.9-10.8); MONOCYTES # (AUTO) 0.5 10^3/uL (0.0-1.0); NEUTROPHILS # (AUTO) 6.5 10^3/uL (1.5-6.6); NEUTROPHILS % (AUTO) 82.3 %; PLT - PLATELET COUNT 266 10^3/uL (130-450); RED BLOOD COUNT 3.63 10^6/uL (4.20-5.40); RED CELL DISTRIBUTION WIDTH 15.7 % (12.0-15.0); WHITE BLOOD COUNT 7.9 x10^3/uL (4.8-10.8)
[2021-11-10 19:47] LABS: ALBUMIN 3.3 g/dL (3.2-5.5); ALBUMIN/GLOBULIN RATIO 0.9 (1.0-2.2); ALKALINE PHOSPHATASE 84 IU/L (42-121); ALT ALANINE AMINOTRANSFERASE 11 IU/L (10-60); AST ASPARTATE AMINOTRANSFERASE 12 IU/L (10-42); BILIRUBIN,TOTAL 0.5 mg/dL (0.2-1.0); BUN - BLOOD UREA NITROGEN 44 mg/dL (6-20); CALCIUM 8.9 mg/dL (8.5-10.3); CARBON DIOXIDE - CO2 22 mmol/L (21-32); CHLORIDE 111 mmol/L (101-111); CREATININE 2.2 mg/dL (0.4-1.0); ETOH - ETHANOL < 5.0 mg/dL; GFR - MDRD 22 (>89); GLUCOSE 95 mg/dL (70-100); LIPASE 25 U/L (22-51); POTASSIUM 4.5 mmol/L (3.5-5.0); SODIUM 143 mmol/L (135-145)
--- NOTE | 2021-11-10 19:48 | XRAY Report ---
PROCEDURE: Chest 1 View X-Ray INDICATIONS: chest pain TECHNIQUE: One view of the chest was acquired. COMPARISON: 09/12/2021 FINDINGS: Surgical changes and devices: None. Lungs and pleura: No pleural effusions or pneumothorax. Low lung volumes. Slight thickening of the i nterstitial markings in the perihilar region bilaterally. No dense consolidations. Mediastinum: Mediastinal contours appear normal. Heart size is normal. Bones and chest wall: No suspicious bony lesions. Overlying soft tissues appear unremarkable. IMPRESSION: Mild bilateral perihilar interstitial thickening may be artifactual, accentuated by slightly low lung volumes, possibly indicating early interstitial edema, though correlation with BNP is recommended. A lternatively, viral pneumonitis may be present. Reviewed by: Genevieve Malloy MD on 11/10/2021 7:46 PM PDT Approved by: Genevieve Malloy MD on 11/10/2021 7:46 PM PDT Station ID: [id number]
--- NOTE | 2021-11-10 20:12 | CT Report ---
PROCEDURE: HEAD WO INDICATIONS: fall, AMS TECHNIQUE: Noncontrast 4.5 mm thick angled axial sections acquired from the foramen magnum to the vertex. For r adiation dose reduction, the following was used: automated exposure control, adjustment of mA and/or kV according to patient size. COMPARISON: 09/13/2021 FINDINGS: Image quality: Excellent. CSF spaces: Basal cisterns are patent. No extra-axial fluid collections. Ventricles are normal in size and shape. Brain: No midline shift. No intracranial masses or hemorrhage. Cam-white matter interface is norm al. Mild cervical cortical volume loss and slight periventricular hypodensity. Skull and face: Calvarium and visualized facial bones are intact, without suspicious lesions. Sinuses: Visualized sinuses and mastoids are clear. IMPRESSION: 1. No CT evidence of acute intracranial process. 2. Age-appropriate exam. Reviewed by: Genevieve Malloy MD on 11/10/2021 8:10 PM PDT Approved by: Genevieve Malloy MD on 11/10/2021 8:10 PM PDT Station ID: [id number]
[2021-11-10 20:24] LABS: MUDS CUTOFF CONCENTRATIONS CUTOFF CONC BELOW:
[2021-11-10 20:26] LABS: BILIRUBIN,URINE NEGATIVE (NEGATIVE); GLUCOSE, URINE (UA) NEGATIVE (NEGATIVE); KETONES,URINE (UA) NEGATIVE (NEGATIVE); LEUKOCYTE ESTERASE, URINE SMALL (NEGATIVE); NITRITE,URINE NEGATIVE (NEGATIVE); OCCULT BLOOD,URINE TRACE-INTA (NEGATIVE); PROTEIN,URINE NEGATIVE (NEGATIVE); UROBILINOGEN,URINE 0.2 (NORMAL) E.U./dL (NORMAL)
[2021-11-10 20:34] LABS: BACTERIA,URINE Few /HPF (None Seen); CLARITY,URINE CLEAR (CLEAR); RBC,URINE 0-5 /HPF (0-5); SQUAMOUS EPITHELIAL CELL,UR FEW Squamous (<= Few); WBC CLUMPS,URINE PRESENT; WBC,URINE >25 /HPF (0-5)
[2021-11-10 20:39] LABS: AMPHETAMINE SCREEN,URINE NEGATIVE (NEGATIVE); BARBITURATE SCREEN,UR NEGATIVE (NEGATIVE); BENZODIAZEPINES SCREEN, URINE NEGATIVE (NEGATIVE); COCAINE SCREEN URINE NEGATIVE (NEGATIVE); METHADONE SCREEN, URINE NEGATIVE (NEGATIVE); METHAMPHETAMINES SCREEN, URINE NEGATIVE (NEGATIVE); OPIATE SCREEN, URINE NEGATIVE (NEGATIVE); OXYCODONE SCREEN, URINE NEGATIVE (NEGATIVE); PROPOXYPHENE SCREEN, URINE NEGATIVE (NEGATIVE); THC CANNABINOID SCREEN, URINE NEGATIVE (NEGATIVE); TRICYCLIC ANTIDEPRESSANT,URINE NEGATIVE (NEGATIVE)
[2021-11-10] MEDS ORDERED: cefTRIAXone 1 GM in SODIUM CHLORIDE 0.9% MINIBAG 100 ML IV STA (21:16)
[2021-11-10] MEDS ORDERED: cefTRIAXone 1 GM VIAL ONE (21:30)
[2021-11-10 21:52] LABS: B. PARAPERTUSSIS- RESP PCR PAN NOT DETECTED; B. PERTUSSIS- RESP PCR PANEL NOT DETECTED; C. PNEUMONIAE- RESP PCR PANEL NOT DETECTED; CORONAVIRUS 229E-RESP PCR NOT DETECTED; CORONAVIRUS HKU1-RESP PCR NOT DETECTED; CORONAVIRUS NL63-RESP PCR NOT DETECTED; CORONAVIRUS OC43-RESP PCR NOT DETECTED; HUMAN METAPNEUMOVIRUS NOT DETECTED; INFLUENZA A- RESP PCR PANEL NOT DETECTED; INFLUENZA B - RESP PCR PANEL NOT DETECTED; M. PNEUMONIAE- RESP PCR PANEL NOT DETECTED; PARAINFLUENZA VIRUS 1 NOT DETECTED; PARAINFLUENZA VIRUS 2 NOT DETECTED; PARAINFLUENZA VIRUS 3 NOT DETECTED; PARAINFLUENZA VIRUS 4 NOT DETECTED; RHINOVIRUS/ENTEROVIRUS NOT DETECTED; RSV- RESP PCR PANEL NOT DETECTED; SARS-CoV-2 -RESP PCR PANEL NOT DETECTED
[2021-11-10] MEDS ORDERED: SODIUM CHLORIDE FLUSH 0.9% 10 ML SYRINGE IVP PRN (22:22)
--- NOTE | 2021-11-10 22:31 | HISTORY & PHYSICAL EXAMINATION ---
Chief Complaint - Chief Complaint Chief Complaint: altered mental status, fall History of Present Illness - Admitted From Admitted From:: [facility] ED - History Obtained From Records Reviewed: yes History obtained from: ED provider Exam Limitations: somnolent - History of Present Illness HPI Comment/Other: "BIBA from home, patient reportedly fell and when EMS arrived her chief complaint was left foot pain. Initially her GCS was 14 but was yelling out and crying. En route to ED patient's mental status rapidly deteriorated and she arrives to ED only following one or two simple commands (such as "open your eyes", or "open your mouth", but with little effort), nonverbal except for moaning when IV is placed. Also of note is patient was normotensive on EMS arrival but blood pressures have been going down and most recent reading was 60s SBP. Patient cannot contribute to HPI/ROS due to AMS" The HPI above was obtained from the ED providers H&P because the patient is currently somnolent and unable to provide a reliable history. She can answer questions that require yes or no or simple 1-2 word responses. At bedside she appears asleep but readily opens her eyes to verbal stimuli. She reports feeling groggy. She denies chest pain, dyspnea, abdominal pain, nausea, vomiting, fever or chills. 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 UTILITIES: reports: None : reports: Incontinence, Chronic bladder infection HEENT: reports: None Psych: reports: Anxiety, Bipolar disorder, Other Musculoskeletal: reports: Osteoarthritis, Fatigue, Chronic back pain, Other Derm: reports: Other MRSA Hx?: No - Past Surgical History General: reports: EGD, Colonoscopy Ortho: reports: Knee replacement, Spine surgery /SALES REPRESENTATIVE PUBLIC UTILITIES: reports: section HEENT: reports: Tonsil/Adenoidectomy - Family & Social History Family History: Mother: , CAD, Father: , CAD Family History Comment/Other: I am unable to update her family history due to her encephalopathy but review of prior records revealed that both her mother and father of heart disease at the age of 57. Living Situation: With spouse/s.o. Social History Notes: Her tells me that she used to smoke a pack a day but now smokes about 2 cigarettes a day. He denies any alcohol use. - Substance History Use: Uses substance without health or social issues: Tobacco (hx) - POLST Patient has POLST: No POLST Status: Full Code Meds/Allgy - Home Medications Home Medications: Ambulatory Orders Medication Instructions Recorded Confirmed Levothyroxine Sodium 50 mcg PO QDAC #30 07/17/19 11/04/21 gemfibroziL [Gemfibrozil] 600 mg PO BID #60 07/17/19 11/04/21 Cholecalciferol [Vitamin D3] 25 mcg PO DAILY 08/15/20 11/04/21 Gabapentin [Neurontin] 100 mg PO TID 08/15/20 11/04/21 Aspirin [Aspirin EC] 81 mg PO DAILY 12/27/20 11/04/21 Omeprazole Magnesium 20 mg PO DAILY 03/05/21 11/04/21 Tizanidine HCl 2 mg PO TID 07/06/21 11/04/21 Min Oil/Dimeth/Coconut Oil Crm 1 applic TOP PRN PRN 07/23/21 11/04/21 [Cavilon] Zinc Oxide 20% Oint [Zinc Oxide] 1 applic TOP PRN PRN 07/23/21 11/04/21 risperiDONE [RisperDAL] 1 mg PO BID tablet 07/23/21 11/04/21 Venlafaxine HCl [Effexor Xr] 150 mg PO DAILY 08/18/21 11/04/21 polyethylene glycoL 3350 [Miralax] 17 gm PO DAILY PRN 08/18/21 11/04/21 Buprenorphine HCl/Naloxone HCl 1 tab SL TID 5 Days #15 tab 09/24/21 11/04/21 [Suboxone 8-2 mg Tab] Calcium Carbonate [Tums (Calcium 500 mg PO TID PRN tablet 09/24/21 11/04/21 Carbonate 500mg)] Carboxymethylcellulose 1% Opht 1 drops EACHEYE PRN PRN drops 09/24/21 11/04/21 [Refresh 1% Ophth Drops] Docusate Sodium 250Mg Capsule 250 - 500 mg PO DAILY 09/24/21 11/04/21 [Colace 250Mg Capsule] LORazepam [Ativan] 0.5 mg PO BID PRN #10 tablet 09/24/21 11/04/21 Multivitamin W/Minerals [Theragran 1 tab PO DAILYWM tablet 09/24/21 11/04/21 M] carvediloL [Coreg] 12.5 mg PO BID 11/04/21 11/04/21 cefUROXime axetiL [Ceftin] 250 mg PO BID #3 tablet 11/06/21 - Allergies Allergies/Adverse Reactions: Allergies Allergy/AdvReac Type Severity Reaction Status Date / Time NSAIDS (Non-Steroidal Allergy Mild Hives Verified 11/10/21 19:12 Anti-Inflamma green pepper Allergy Unknown Verified 11/10/21 19:12 lisinopril Allergy Unknown Verified 11/10/21 19:12 pepper (genus Capsicum) Allergy Unknown Verified 11/10/21 19:12 Sulfa (Sulfonamide AdvReac Mild Rash Verified 11/10/21 19:12 Antibiotics) ondansetron [From Zofran] AdvReac Dizziness Verified 11/10/21 19:12 Review of Systems - Other Findings Other Findings: A 12 point review of system is currently limited due to the patient's altered mental status. She is unable to provide a reliable history at this time. Prior Level of Functionality: And then for activities of daily living. She is very well-known to the hospitalist service. She has been deemed in need of long-term care however when she is more alert and coherent she always declines. Exam - Vital Signs Vital Signs: Vital Signs x48h Temp Pulse Resp BP Pulse Ox 11/10/21 22:00 56 L 10 L 128/46 L 100 11/10/21 21:30 50 L 11 L 134/52 H 100 11/10/21 21:23 51 L 13 116/48 L 100 11/10/21 21:04 51 L 11 L 129/55 L 100 11/10/21 20:30 44 L 9 L 108/49 L 100 11/10/21 20:21 48 L 10 L 123/77 100 11/10/21 20:15 45 L 10 L 123/77 100 11/10/21 19:45 44 L 11 L 133/63 H 100 11/10/21 19:32 133/62 H 11/10/21 19:24 92/72 11/10/21 19:12 36.6 C 62 11 L 62/52 L 100 - Physical Exam General Appearance: positive: Mild distress, Lethargic Eyes Bilateral: positive: PERRL, EOMI ENT: positive: Dry mucous membranes Neck: positive: No JVD, Trachea midline Respiratory: positive: Chest non-tender, No respiratory distress, Breath sounds nml. negative: Wheezes, Rales, Rhonchi Cardiovascular: positive: Regular rate & rhythm, No murmur Abdomen: positive: Non-tender, Nml bowel sounds, No distention. negative: Guarding, Rebound Back: positive: Nml inspection Skin: positive: No rash, Warm, Dry Extremities: positive: Non-tender, Nml appearance Neurologic/Psychiatric: positive: Motor nml, Disoriented to time, Other (somnolent,) Conclusion/Plan - Problem List (1) Altered mental status Conclusion/Plan: Likely multifactorial. Secondary to medication and possibly dehydration CT head showed no evidence of acute intracranial process Patient's creatinine today is 2.2. It was reported that patient's systolic blood pressure was in the 60s upon arrival to the ED. She is currently normotensive. Continue IV hydration with normal saline at 100 mL/h initiated. Patient was given a dose of Rocephin IV in the emergency department for possible UTI. However will hold off on any further antibiotics at this time. She was just discharged from the hospital on 11/06/2021. During that hospital stay she was treated with antibiotics for possible UTI. Anticipating improvement in patient's mentation with continued hold off any potential sedating medications. These include lorazepam, Suboxone, tizanidine and venlafaxine. Qualifiers: Altered mental status type: stupor Qualified Code(s): R40.1 - Stupor (2) Acute kidney injury superimposed on CKD Conclusion/Plan: Creatinine today is 2.2 with estimated GFR of 22. At discharge 4 days ago creatinine was 1.8. We will continue IV hydration with normal saline at 100 mL/h. (3) Diabetes mellitus type 2, diet-controlled Conclusion/Plan: Not on any diabetic medications. Mechanical soft diet ordered. (4) GERD (gastroesophageal reflux disease) Conclusion/Plan: Protonix 40 mg p.o. daily. (5) HTN (hypertension) Conclusion/Plan: Patient was hypotensive in the emergency room. Currently receiving IV hydration with normal saline at 100 mL/h. We will hold patient's Lasix. Will resume metoprolol succinate in the morning. (6) Hyperlipidemia Conclusion/Plan: On gemfibrozil (7) Hypothyroidism Conclusion/Plan: On Synthroid 50 mcg p.o. daily AC - Lab Results Fish Bones: 11/10/21 19:21 11/10/21 19:21 Core Measures - Anticipated LOS I expect patient to be DC'd or transferred within 96 hours.: Yes - DVT/VTE - Prophylaxis VTE/DVT Device ordered at admit?: Yes
[2021-11-10] MEDS: SODIUM CHLORIDE 0.9% 1,000 ML IV SCH (23:30)
[2021-11-11] MEDS: SODIUM CHLORIDE FLUSH 0.9% 10 ML SYRINGE IVP SCH ×4 (00:03→23:28)
[2021-11-11 06:14] LABS: BASOPHILS % (AUTO) 0.3 %; EOSINOPHILS # (AUTO) 0.1 10^3/uL (0.0-0.7); EOSINOPHILS % (AUTO) 1.4 %; HCT - HEMATOCRIT 31.3 % (37.0-47.0); HGB - HEMOGLOBIN 9.8 g/dL (12.0-16.0); LYMPHOCYTES # (AUTO) 0.7 10^3/uL (1.5-3.5); LYMPHOCYTES % (AUTO) 11.2 %; MEAN CORPUSCULAR HEMOGLOBIN 29.4 pg (27.0-31.0); MEAN CORPUSCULAR HGB CONC 31.3 g/dL (32.0-36.0); MEAN PLATELET VOLUME 9.8 fL (7.9-10.8); MONOCYTES # (AUTO) 0.4 10^3/uL (0.0-1.0); MONOCYTES % (AUTO) 5.7 %; NEUTROPHILS # (AUTO) 5.3 10^3/uL (1.5-6.6); NEUTROPHILS % (AUTO) 81.1 %; PLT - PLATELET COUNT 253 10^3/uL (130-450); RED BLOOD COUNT 3.33 10^6/uL (4.20-5.40); RED CELL DISTRIBUTION WIDTH 15.9 % (12.0-15.0); WHITE BLOOD COUNT 6.5 x10^3/uL (4.8-10.8)
[2021-11-11 06:25] LABS: CALCIUM 8.9 mg/dL (8.5-10.3); POTASSIUM 4.3 mmol/L (3.5-5.0)
--- NOTE | 2021-11-11 08:39 | PROVIDER PROGRESS NOTE ---
Assessment/Plan - Problem List (1) Acute metabolic encephalopathy Assessment/Plan: This is the same presentation that she has had about 10 times over the past year: Becomes lethargic, does not eat or get out of bed, presents with dehydration and severely altered mental status. On the last recent admission she was treated for a UTI and dehydration. When she lived at long-term care for one month, she was safe and had no presentations to the ED in this condition, because her medications were being administered to her. Her and herself have proven that they are not capable to safely administer her medications to her and Home Health has not been able to address this problem despite being ordered. Continue with IV fluids and supportive care while allowing the excessive psych meds to metabolize out. (2) Echolalia Assessment/Plan: After being overly sedated, her usual state by day 2 is yelling out with echolalia, which she is doing today. This has been a repeat occurence for her during a her admissions (there are approximately 10 over the last year). Because the echolalia suggests side effect of her psychotropic medications, it suggest that she has intentionally or unintentionally taken in excess amount of them. She is unsafe to be discharged to home given the repeat admissions with the same presentation. Her and herself seem to be not capable to safely administer her medications to her and Home Health has not been able to address this problem despite being ordered, because she fires them. When she was in LTC, she was able to be stable and safe for the month that she stayed there. (We still do not know the details of how she left the LTC and got back home to live with her , which occurred before the last admission). A Social Work consult will be requested for offerimng her long-term care placement (3) Acute kidney injury superimposed on CKD Assessment/Plan: This is likely due to dehydration. IV fluids have been started and will be continued. Avoid nephrotoxins. Follow BMP daily (4) Anemia Qualifiers: Anemia type: unspecified type Qualified Code(s): D64.9 - Anemia, unspecified Assessment/Plan: This may be anemia of chronic disease given the CKD but most likely from r ecurrent hospitalizations requiring rehydration and blood draws. Would plan to give a transfusion if hemoglobin goes under 7. Follow CBC daily (5) Bipolar disorder We will resume her usual anti-psychotic meds when reconciled and when she is awake (6) Chronic pain syndrome She was on Suboxone (7) Peripheral neuropathy Meds to be resumed (8) HTN (hypertension) BP is actually "soft" currently and BP meds are on hold (9) Hypothyroidism Meds to be resumed - Current Meds Current Meds: Current Medications Generic Name Dose Route Start Last Admin Trade Name Radha PRN Reason Stop Dose Admin Sodium Chloride 1,000 mls @ 100 mls/hr 11/10/21 23:00 11/10/21 23:30 Normal Saline 0.9% IV 100 mls/hr .Q10H JARETT Administration Sodium Chloride 10 ml 11/11/21 01:00 11/11/21 00:03 Sodium Chloride Flush 0.9% 10 Ml Syringe IVP 10 ml 0100,0900,1700 JARETT Administration - Lab Result Fish Bone Diagrams: 11/13/21 05:02 11/13/21 05:02 - Additional Planning My Orders: My Active Orders 11/11/21 Social Work Consult [CONS] Routine Subjective - Subjective Nursing Reports: Other (Yelling with the same word repeatedly (Echolalia). Does not follow commands.) Objective Vital Signs: Vital Signs - 24 hr 11/10/21 11/10/21 11/10/21 19:12 19:24 19:32 Temperature 36.6 C Heart Rate 62 Heart Rate [ Brachial] Respiratory 11 L Rate Blood Pressure 62/52 L 92/72 133/62 H Blood Pressure [Left Brachial artery] Blood Pressure [Right Brachial artery] O2 Saturation 100 11/10/21 11/10/21 11/10/21 19:45 20:15 20:21 Temperature Heart Rate 44 L 45 L 48 L Heart Rate [ Brachial] Respiratory 11 L 10 L 10 L Rate Blood Pressure 133/63 H 123/77 123/77 Blood Pressure [Left Brachial artery] Blood Pressure [Right Brachial artery] O2 Saturation 100 100 100 11/10/21 11/10/21 11/10/21 20:30 21:04 21:23 Temperature Heart Rate 44 L 51 L 51 L Heart Rate [ Brachial] Respiratory 9 L 11 L 13 Rate Blood Pressure 108/49 L 129/55 L 116/48 L Blood Pressure [Left Brachial artery] Blood Pressure [Right Brachial artery] O2 Saturation 100 100 100 11/10/21 11/10/2122 21:30 22:00 22:30 Temperature Heart Rate 50 L 56 L 48 L Heart Rate [ Brachial] Respiratory 11 L 10 L 16 Rate Blood Pressure 134/52 H 128/46 L 112/50 L Blood Pressure [Left Brachial artery] Blood Pressure [Right Brachial artery] O2 Saturation 100 100 100 11/10/21 11/11/21 11/11/21 23:16 06:12 07:32 Temperature 36.5 C 36.6 C 36.6 C Heart Rate Heart Rate [ 54 L 53 L 86 Brachial] Respiratory 20 18 18 Rate Blood Pressure Blood Pressure 103/68 [Left Brachial artery] Blood Pressure 148/69 H 176/69 H [Right Brachial artery] O2 Saturation 96 100 97 Oxygen O2 Source [Without Activity] Room air O2 Source Nasal cannula I&O (Last 24 Hrs): Intake and Output Totals x24h 11/09/21 11/10/21 11/11/21 23:59 23:59 23:59 Intake Total 1100 Output Total 1300 975 Balance -200 -975 General: Other (Echo lalia and confused) HEENT: Mucous membr. moist/pink Neuro: Other (Confused, echolalia, moving all extremities spontaneously) Cardiovascular: Regular rate Respiratory: No respiratory distress Abdomen: Soft Extremities: No edema - Results Results: Laboratory Results WBC 6.5 x10^3/uL (4.8-10.8) 11/11/21 06:06 RBC 3.33 10^6/uL (4.20-5.40) L 11/11/21 06:06 Hgb 9.8 g/dL (12.0-16.0) L 11/11/21 06:06 Hct 31.3 % (37.0-47.0) L 11/11/21 06:06 MCV 94.0 fL (81.0-99.0) 11/11/21 06:06 MCH 29.4 pg (27.0-31.0) 11/11/21 06:06 MCHC 31.3 g/dL (32.0-36.0) L 11/11/21 06:06 RDW 15.9 % (12.0-15.0) H 11/11/21 06:06 Plt Count 253 10^3/uL (130-450) 11/11/21 06:06 MPV 9.8 fL (7.9-10.8) 11/11/21 06:06 Neut # (Auto) 5.3 10^3/uL (1.5-6.6) 11/11/21 06:06 Lymph # (Auto) 0.7 10^3/uL (1.5-3.5) L 11/11/21 06:06 [place] # (Auto) 0.4 10^3/uL (0.0-1.0) 11/11/21 06:06 Eos # (Auto) 0.1 10^3/uL (0.0-0.7) 11/11/21 06:06 Baso # (Auto) 0.0 10^3/uL (0.0-0.1) 11/11/21 06:06 Absolute Nucleated RBC 0.00 x10^3/uL 11/11/21 06:06 Nucleated RBC % 0.0 /100WBC 11/11/21 06:06 Sodium 148 mmol/L (135-145) H 11/11/21 06:06 Potassium 4.3 mmol/L (3.5-5.0) 11/11/21 06:06 Chloride 118 mmol/L (101-111) H 11/11/21 06:06 Carbon Dioxide 21 mmol/L (21-32) 11/11/21 06:06 Anion Gap 9.0 (6-13) 11/11/21 06:06 BUN 40 mg/dL (6-20) H 11/11/21 06:06 Creatinine 2.0 mg/dL (0.4-1.0) H 11/11/21 06:06 Estimated GFR (MDRD) 25 (>89) L 11/11/21 06:06 Glucose 76 mg/dL (70-100) 11/11/21 06:06 Lactic Acid 1.2 mmol/L (0.5-2.2) 11/10/21 20:24 Calcium 8.9 mg/dL (8.5-10.3) 11/11/21 06:06 Total Bilirubin 0.5 mg/dL (0.2-1.0) 11/10/21 19:21 AST 12 IU/L (10-42) 11/10/21 19:21 ALT 11 IU/L (10-60) 11/10/21 19:21 Alkaline Phosphatase 84 IU/L (42-121) 11/10/21 19:21 B-Natriuretic Peptide 219 pg/mL (5-100) H 11/10/21 19:21 Total Protein 7.0 g/dL (6.7-8.2) 11/10/21 19:21 Albumin 3.3 g/dL (3.2-5.5) 11/10/21 19:21 Globulin 3.7 g/dL (2.1-4.2) 11/10/21 19:21 Albumin/Globulin Ratio 0.9 (1.0-2.2) L 11/10/21 19:21 Lipase 25 U/L (22-51) 11/10/21 19: TSH 1.32 uIU/mL (0.34-5.60) 11/10/21 19:21 Urine Color YELLOW 11/10/21 20:20 Urine Clarity CLEAR (CLEAR) 11/10/21 20:20 Urine pH 6.0 PH (5.0-7.5) 11/10/21 20:20 Ur Specific [place] 1.010 (1.002-1.030) 11/10/21 20:20 Urine Protein NEGATIVE mg/dL (NEGATIVE) 11/10/21 20:20 Urine Glucose (UA) NEGATIVE mg/dL (NEGATIVE) 11/10/21 20:20 Urine Ketones NEGATIVE mg/dL (NEGATIVE) 11/10/21 20:20 Urine Occult Blood TRACE-INTA (NEGATIVE) 11/10/21 20:20 Urine Nitrite NEGATIVE (NEGATIVE) 11/10/21 20:20 Urine Bilirubin NEGATIVE (NEGATIVE) 11/10/21 20:20 Urine Urobilinogen 0.2 (NORMAL) E.U./dL (NORMAL) 11/10/21 20:20 Ur Leukocyte Esterase SMALL (NEGATIVE) H 11/10/21 20:20 Urine RBC 0-5 /HPF (0-5) 11/10/21 20:20 Urine WBC >25 /HPF (0-5) H 11/10/21 20:20 Urine WBC Clumps PRESENT 11/10/21 20:20 Ur Squamous Epith Cells FEW Squamous (<= Few) 11/10/21 20:20 Urine Bacteria Few /HPF (None Seen) 11/10/21 20:20 Ur Microscopic Review INDICATED 11/10/21 20:20 Urine Culture Comments INDICATED 11/10/21 20:20 Nasal Adenovirus (PCR) NOT DETECTED 11/10/21 20:44 Nasal B. parapertussis DNA (PCR) NOT DETECTED 11/10/21 20:44 Nasal Coronavir 229E PCR NOT DETECTED 11/10/21 20:44 Nasal Coronavir HKU1 PCR NOT DETECTED 11/10/21 20:44 Nasal Coronavir NL63 PCR NOT DETECTED 11/10/21 20:44 Nasal Coronavir OC43 PCR NOT DETECTED 11/10/21 20:44 Nasal Enterovir/Rhinovir PCR NOT DETECTED 11/10/21 20:44 Nasal Influenza B PCR NOT DETECTED 11/10/21 20:44 Nasal Influenza A PCR NOT DETECTED 11/10/21 20:44 Nasal Parainfluen 1 PCR NOT DETECTED 11/10/21 20:44 Nasal Parainfluen 2 PCR NOT DETECTED 11/10/21 20:44 Nasal Parainfluen 3 PCR NOT DETECTED 11/10/21 20:44 Nasal Parainfluen 4 PCR NOT DETECTED 11/10/21 20:44 Nasal RSV (PCR) NOT DETECTED 11/10/21 20:44 Nasal B.pertussis DNA PCR NOT DETECTED 11/10/21 20:44 Nasal C.pneumoniae (PCR) NOT DETECTED 11/10/21 20:44 Misael Human Metapneumo PCR NOT DETECTED 11/10/21 20:44 Nasal M.pneumoniae (PCR) NOT DETECTED 11/10/21 20:44 Nasal SARS-CoV-2 (PCR) NOT DETECTED 11/10/21 20:44 Urine Opiates Screen NEGATIVE (NEGATIVE) 11/10/21 20:20 Ur Oxycodone Screen NEGATIVE (NEGATIVE) 11/10/21 20:20 Urine Methadone Screen NEGATIVE (NEGATIVE) 11/10/21 20:20 Ur Propoxyphene Screen NEGATIVE (NEGATIVE) 11/10/21 20:20 Ur Barbiturates Screen NEGATIVE (NEGATIVE) 11/10/21 20:20 Ur Tricyclics Screen NEGATIVE (NEGATIVE) 11/10/21 20:20 Ur Phencyclidine Scrn NEGATIVE (NEGATIVE) 11/10/21 20:20 Ur Amphetamine Screen NEGATIVE (NEGATIVE) 11/10/21 20:20 U Methamphetamines Scrn NEGATIVE (NEGATIVE) 11/10/21 20:20 U Benzodiazepines Scrn NEGATIVE (NEGATIVE) 11/10/21 20:20 Urine Cocaine Screen NEGATIVE (NEGATIVE) 11/10/21 20:20 U Cannabinoids Screen NEGATIVE (NEGATIVE) 11/10/21 20:20 Ethyl Alcohol < 5.0 mg/dL 11/10/21 19:21 - Procedures Procedures: Procedures COLONOSCOPY (01/09/13) DRAINAGE OF BLADDER WITH DRAINAGE DEVICE, VIA OPENING (11/25/19)
[2021-11-11] MEDS: SODIUM CHLORIDE 0.9% 1,000 ML IV SCH ×2 (09:21→18:27)
--- NOTE | 2021-11-11 10:40 | ADVANCE CARE PLANNING NOTE ---
Advance Care Planning - Planning Encounter Date: 11/11/21 Time: 10:15 Purpose: To establish the patient's and the 's goals for her discharge, with a safe discharge plan after this hospitalization. Parties in Attendance: I spoke to the by phone, he was at home. Decisional Capacity of the Patient: The patient is currently delusional, oriented x0, has echolalia and has no decisional capacity. This is approximately her 10th hospitalization with the same presentation. Normally, when her altered mental status clears, usually in 24 - 48 hours after admission, she has adequate decisional capacity since she has had a cognitive eval test done by OT (the most recent was 09/21) and she scored 25/30, indicating mild cognitive impairment. - Diagnosis for Encounter (1) Acute metabolic encephalopathy Summary: This is the patient's 10th hospitalization in 1 year with the same presentation, she comes home from hospitalization, SNF or long-term care and remains in bed and then probably takes excessive amounts of her psych meds and becomes obtunded, lethargic and takes in no food or liquid for a days and the has to call an ambulance. On past hospitalizations the patient has described that the brings her her medications in a tray that set up for 2 weeks and he does not supervise how she takes them. In the past when she completes physical therapy due to deconditioning, she promises that she will continue to do her exercises at home but she never does. She instead lays in bed all day, she only gets up to use the bathroom, which is several feet away, by using a walker. She does not come to the table to eat any meals, the brings him to her in bed. - Encounter Subjective/Patient's Story: The has a spreadsheet and uses this to fill her tray which she does for 2 weeks at a time. He then brings in the tray but does not supervise how she takes her medicines. The patient had mentioned suicidal ideations about 6 months ago and telepsych needed to clear her for suicide. I told the this and he was not aware of it at all. The states that the patient has a motorcycle and still pays fees for the license and keeps it active, hoping that someday she will go back to riding the motorcycle, which he jokes about with her, since she has been very weak over the last 1 year. The patient has finished prior rehabbing for strengthening and promises that she will continue her exercises when she goes home, and the says she never does, she simply goes to bed and stays in bed all day. The said that it is very mysterious why she gets lethargic like this when at home but not at the hospital or a facility. He says he tries to help her by making a spreadsheet of all her medications which he uses to fill her tray. He is offered to show the spreadsheet to many providers and no one has asked to see it. Objective/Medical Story: The patient has poor habits and self-neglect, she probably take her's her medications in excess which caused the lethargy then leads to the dehydration and VICKIE. The does not monitor how she takes her medications. The does not make her get out of bed to come to the table. He told me that he is "too nice". Patient has had home health agencies ordered and she has fired them. The patient has finished PT and OT rehab sessions at SNF or our swing bed or while in long-term care, but when she goes home she immediately resumes her prior habits of staying in bed all day. Goals of Care: The would want the patient to come home. I told the that he will now need to administer all of her medications, to monitor how she takes them, whatever time of day they are prescribed, throughout the day, and that she may not have the tray of medicines left in her room. I told the that he must have her get out of bed to at least come to the table for every meal, and that he should not being be enabling her to remain in bed all day by bringing her meals to the bed. He agreed. Plan: Another APS report will be submitted for patient self neglect. OT will be requested to do another cognitive evaluation, when she her mentation has improved, to learn if she has now lost the capacity for making rational decisions. The was told to insist that she get out of bed at least for meals, if not more often, the way she does when she is participating with physical therapy at a SNF. The will email the spreadsheet of medications that he puts in her tray and we will compare this to how they should be taken.>>> This spreadsheet was received several minutes later via email and reviewed. There are several medications that he puts in her med tray, like gemfibrozil. There is another section of medicines, on his spread sheet, that are kept at bedside which include Suboxone, Ativan and Lioresal. I then called the patient's back and asked why these are kept at bedside. His answer was that Annika request that these be kept at bedside. The was told that these medications are no longer allowed to be at bedside because the all 3 can make her very sleepy and drop her blood pressure and are unsafe to take unsupervised. They must be supervised when administered. The patient's agreed to this going forward. Additional Discussion: I requested that the come in to see how she is doing when she is here to witness how she can participate when she is more awake. The says he no longer drives a car because of a stroke and has vision problems and cannot come to the hospital. Time spent on advance care plannin min
--- NOTE | 2021-11-11 16:13 | PHARMACY PROGRESS NOTE ---
- Best Possible Medication History Admit Date and Time: 11/10/212221 Processed by: Pharmacy Medication History completed: Yes Patient Interview: Pt unable to participate Secondary Source(s): Spouse/Significant other (A complicated history to obtain as pt had old bottles which she apparently put new fills in since the amount in the bottles are more than the quantity stated on the label. Con't in [facility] Insurance records As the person ultimately responsible for medication therapy, providers are able to order a medication from an existing home medication list in [facility] via the "Reconcile Routine" prior to Confirmation of that medication by support technician. Such practice is discouraged except when the physician, in their clinical judgment, deems that a medical need exists for a medication without regard to previous use.
[2021-11-11] MEDS: ACETAMINOPHEN 325 MG TABLET PO PRN (23:39)
[2021-11-12] MEDS: SODIUM CHLORIDE 0.9% 1,000 ML IV SCH ×3 (04:07→23:43)
[2021-11-12 05:24] LABS: BASOPHILS % (AUTO) 0.5 %; EOSINOPHILS # (AUTO) 0.1 10^3/uL (0.0-0.7); HCT - HEMATOCRIT 29.5 % (37.0-47.0); HGB - HEMOGLOBIN 9.2 g/dL (12.0-16.0); LYMPHOCYTES # (AUTO) 1.1 10^3/uL (1.5-3.5); LYMPHOCYTES % (AUTO) 17.1 %; MEAN CORPUSCULAR HEMOGLOBIN 29.1 pg (27.0-31.0); MEAN CORPUSCULAR HGB CONC 31.2 g/dL (32.0-36.0); MEAN CORPUSCULAR VOLUME 93.4 fL (81.0-99.0); MEAN PLATELET VOLUME 9.9 fL (7.9-10.8); MONOCYTES # (AUTO) 0.7 10^3/uL (0.0-1.0); MONOCYTES % (AUTO) 10.1 %; NEUTROPHILS # (AUTO) 4.7 10^3/uL (1.5-6.6); NEUTROPHILS % (AUTO) 69.8 %; PLT - PLATELET COUNT 259 10^3/uL (130-450); RED BLOOD COUNT 3.16 10^6/uL (4.20-5.40); RED CELL DISTRIBUTION WIDTH 16.4 % (12.0-15.0); WHITE BLOOD COUNT 6.7 x10^3/uL (4.8-10.8)
[2021-11-12 05:35] LABS: CALCIUM 9.1 mg/dL (8.5-10.3); CREATININE 1.6 mg/dL (0.4-1.0); POTASSIUM 4.2 mmol/L (3.5-5.0)
[2021-11-12] MEDS: polyethylene glycoL 3350 17 GM PACKET PO SCH ×2 (11:34→12:37)
[2021-11-12] MEDS: SODIUM CHLORIDE FLUSH 0.9% 10 ML SYRINGE IVP SCH ×3 (11:35→23:56)
[2021-11-12] MEDS: ACETAMINOPHEN 325 MG TABLET PO PRN ×2 (15:34→21:22)
--- NOTE | 2021-11-12 18:12 | PROVIDER PROGRESS NOTE ---
Assessment/Plan - Problem List (1) Acute metabolic encephalopathy Assessment/Plan: This is the same presentation that she has had about 10 times over the past year: Becomes lethargic, does not eat or get out of bed, presents with dehydration and severely altered mental status. When she lived at long-term care for one month, she was safe and had no presentations to the ED in this condition, because her medications were being administered to her. PT and OT saw her and she is at her baseline, does not need rehab at a SNF. I called her at home and reviewed how she gets her meds and he emailed me the spread sheet that he uses to fill her med tray. He then brings the tray to her room, but does not monitor how she administers her meds to herself. She also never leaves her bed whenever she comes home, despite promising that she will continue doing exercises and walking with a walker. The describes that he brings her all her meals in her bed. Also an important finding on his spreadsheet is that there were 3 medications that are "at bedside" all the time, and not administered in the tray and counted out by him. These are: Suboxone, Liorasal muscle relaxant and Ativan. He therefore has no idea how she takes those 3 meds, which are the most sedating of all her medications. I discussed with him the possibility that she could return home if he takes full responsibility for administering all of her meds to het and to leave none at bedside and not even leave the tray in her room. She also needs to be told to get up at least for meals 3 times a day. He said he would "implement that" because she spills everything in her bed. I then presented the idea to the patient who says she would agree to that plan. Possible DCh tomorrow is planned (not today, due to BP's of 200 and therefore her meds need adjustment). (2) Acute kidney injury superimposed on CKD Assessment/Plan: Improving. This was likely due to dehydration from not taling a diet and from javing Lasix as a med. IV fluids were given and will be stopped now Avoid nephrotoxins. Follow BMP daily (3) Anemia Qualifiers: Anemia type: unspecified type Qualified Code(s): D64.9 - Anemia, unspecified Assessment/Plan: This may be anemia of chronic disease given the CKD but most likely from recurrent hospitalizations requiring rehydration and blood draws. Would plan to give a transfusion if hemoglobin goes under 7. Follow CBC daily (4) Bipolar disorder We have resumed her usual anti-psychotic meds (5) Chronic pain syndrome She was on Suboxone and these have been resumed now that she is awake (6) Peripheral neuropathy Meds resumed (7) HTN (hypertension) her BP very high today, reaching 200 syst. She is asymptomatic with this. This is likely due to having no blood pressure meds administered for approximately 2 days. Will resume all her BP meds. Will give hydralazine IV as needed for systolic blood pressures greater than 180 (8) Hypothyroidism Meds have resumed (9) Echolalia Assessment/Plan: Resolved. After being overly sedated, her usual state by day 2 is yelling out with echolalia, which she did. This has been a repeat occurrence for her during her admissions (there are approximately 10 over the last year). Because the echolalia suggests side effect of her psychotropic or sedative medications, it suggest that she has intentionally or unintentionally taken in excess amount of something. - Current Meds Current Meds: Current Medications Generic Name Dose Route Start Last Admin Trade Name Freq PRN Reason Stop Dose Admin Acetaminophen 650 mg 11/10/21 22:22 11/12/21 15:34 Acetaminophen 325 Mg Tablet PO 650 mg Q4HR PRN Administration Pain 1 to 4, or Fever Sodium Chloride 1,000 mls @ 100 mls/hr 11/10/21 23:00 11/12/21 14:26 Normal Saline 0.9% IV 100 mls/hr .Q10H JARETT Administration Polyethylene Glycol 17 gm 11/12/21 09:00 11/12/21 12:37 Polyethylene Glycol 3350 17 Gm Packet PO 17 gm DAILY JARETT Administration Sodium Chloride 10 ml 11/11/21 01:00 11/12/21 17:08 Sodium Chloride Flush 0.9% 10 Ml Syringe IVP Not Given 0100,0900,1700 JARETT - Lab Result Fish Bone Diagrams: 11/13/21 05:02 11/13/21 05:02 - Additional Planning My Orders: My Active Orders 11/12/21 Evaluate and Treat OT [OT] Routine Evaluate and Treat PT [PT] Routine Subjective - Subjective Patient Reports: Resting Comfortably, No Complaints Objective Vital Signs: Vital Signs - 24 hr 11/11/21 11/11/21 11/12/21 20:02 23:28 05:00 Temperature 37.1 C 36.9 C 36.7 C Heart Rate Heart Rate [ Activity] Heart Rate [ 62 60 50 L Brachial] Heart Rate [ Sitting] Respiratory 20 16 18 Rate Blood Pressure [Activity] Blood Pressure 151/56 H 170/56 H 155/60 H [Right Brachial artery] Blood Pressure [Sitting] O2 Saturation 98 99 96 11/12/21 11/12/21 11/12/21 08:55 09:06 13:00 Temperature 36.6 C 37 C Heart Rate 63 Heart Rate [ Activity] Heart Rate [ 63 63 Brachial] Heart Rate [ Sitting] Respiratory 18 16 18 Rate Blood Pressure [Activity] Blood Pressure 177/52 H 154/78 H [Right Brachial artery] Blood Pressure [Sitting] O2 Saturation 97 96 96 11/12/21 11/12/21 11/12/21 15:00 15:59 17:10 Temperature 36.7 C Heart Rate Heart Rate [ 61 Activity] Heart Rate [ 57 L Brachial] Heart Rate [ 67 Sitting] Respiratory 20 Rate Blood Pressure 238/84 H [Activity] Blood Pressure 184/87 H 155/80 H [Right Brachial artery] Blood Pressure 225/88 H [Sitting] O2 Saturation 96 Oxygen O2 Source [Without Activity] Room air O2 Source Room air I&O (Last 24 Hrs): Intake and Output Totals x24h 11/10/21 11/11/21 11/12/21 23:59 23:59 23:59 Intake Total 1100 2755 3306.667 Output Total 1300 3625 2475 Balance -200 -870 831.667 General: Alert, Oriented x3 HEENT: Mucous membr. moist/pink Neuro: Alert, Non Focal, Other (She cannot remember taking meds) Cardiovascular: Regular rate Respiratory: No respiratory distress Abdomen: Soft Extremities: No clubbing, No edema, No tenderness/swelling - Results Results: Laboratory Results WBC 6.7 x10^3/uL (4.8-10.8) 11/12/21 05:04 RBC 3.16 10^6/uL (4.20-5.40) L 11/12/21 05:04 Hgb 9.2 g/dL (12.0-16.0) L 11/12/21 05:04 Hct 29.5 % (37.0-47.0) L 11/12/21 05:04 MCV 93.4 fL (81.0-99.0) 11/12/21 05:04 MCH 29.1 pg (27.0-31.0) 11/12/21 05:04 MCHC 31.2 g/dL (32.0-36.0) L 11/12/21 05:04 RDW 16.4 % (12.0-15.0) H 11/12/21 05:04 Plt Count 259 10^3/uL (130-450) 11/12/21 05:04 MPV 9.9 fL (7.9-10.8) 11/12/21 05:04 Neut # (Auto) 4.7 10^3/uL (1.5-6.6) 11/12/21 05:04 Lymph # (Auto) 1.1 10^3/uL (1.5-3.5) L 11/12/21 05:04 Keith # (Auto) 0.7 10^3/uL (0.0-1.0) 11/12/21 05:04 Eos # (Auto) 0.1 10^3/uL (0.0-0.7) 11/12/21 05:04 Baso # (Auto) 0.0 10^3/uL (0.0-0.1) 11/12/21 05:04 Absolute Nucleated RBC 0.00 x10^3/uL 11/12/21 05:04 Nucleated RBC % 0.0 /100WBC 11/12/21 05:04 Sodium 142 mmol/L (135-145) 11/12/21 05:04 Potassium 4.2 mmol/L (3.5-5.0) 11/12/21 05:04 Chloride 113 mmol/L (101-111) H 11/12/21 05:04 Carbon Dioxide 22 mmol/L (21-32) 11/12/21 05:04 Anion Gap 7.0 (6-13) 11/12/21 05:04 BUN 30 mg/dL (6-20) H 11/12/21 05:04 Creatinine 1.6 mg/dL (0.4-1.0) H 11/12/21 05:04 Estimated GFR (MDRD) 32 (>89) L 11/12/21 05:04 Glucose 116 mg/dL (70-100) H 11/12/21 05:04 Lactic Acid 1.2 mmol/L (0.5-2.2) 11/10/21 20:24 Calcium 9.1 mg/dL (8.5-10.3) 11/12/21 05:04 Total Bilirubin 0.5 mg/dL (0.2-1.0) 11/10/21 19:21 AST 12 IU/L (10-42) 11/10/21 19:21 ALT 11 IU/L (10-60) 11/10/21 19:21 Alkaline Phosphatase 84 IU/L (42-121) 11/10/21 19:21 B-Natriuretic Peptide 219 pg/mL (5-100) H 11/10/21 19:21 Total Protein 7.0 g/dL (6.7-8.2) 11/10/21 19:21 Albumin 3.3 g/dL (3.2-5.5) 11/10/21 19:21 Globulin 3.7 g/dL (2.1-4.2) 11/10/21 19:21 Albumin/Globulin Ratio 0.9 (1.0-2.2) L 11/10/21 19:21 Lipase 25 U/L (22-51) 11/10/21 19:21 TSH 1.32 uIU/mL (0.34-5.60) 11/10/21 19:21 Urine Color YELLOW 11/10/21 20:20 Urine Clarity CLEAR (CLEAR) 11/10/21 20:20 Urine pH 6.0 PH (5.0-7.5) 11/10/21 20:20 Ur Specific [place] 1.010 (1.002-1.030) 11/10/21 20:20 Urine Protein NEGATIVE mg/dL (NEGATIVE) 11/10/21 20:20 Urine Glucose (UA) NEGATIVE mg/dL (NEGATIVE) 11/10/21 20:20 Urine Ketones NEGATIVE mg/dL (NEGATIVE) 11/10/21 20:20 Urine Occult Blood TRACE-INTA (NEGATIVE) 11/10/21 20:20 Urine Nitrite NEGATIVE (NEGATIVE) 11/10/21 20:20 Urine Bilirubin NEGATIVE (NEGATIVE) 11/10/21 20:20 Urine Urobilinogen 0.2 (NORMAL) E.U./dL (NORMAL) 11/10/21 20:20 Ur Leukocyte Esterase SMALL (NEGATIVE) H 11/10/21 20:20 Urine RBC 0-5 /HPF (0-5) 11/10/21 20:20 Urine WBC >25 /HPF (0-5) H 11/10/21 20:20 Urine WBC Clumps PRESENT 11/10/21 20:20 Ur Squamous Epith Cells FEW Squamous (<= Few) 11/10/21 20:20 Urine Bacteria Few /HPF (None Seen) 11/10/21 20:20 Ur Microscopic Review INDICATED 11/10/21 20:20 Urine Culture Comments INDICATED 11/10/21 20:20 Nasal Adenovirus (PCR) NOT DETECTED 11/10/21 20:44 Nasal B. parapertussis DNA (PCR) NOT DETECTED 11/10/21 20:44 Nasal Coronavir 229E PCR NOT DETECTED 11/10/21 20:44 Nasal Coronavir HKU1 PCR NOT DETECTED 11/10/21 20:44 Nasal Coronavir NL63 PCR NOT DETECTED 11/10/21 20:44 Nasal Coronavir OC43 PCR NOT DETECTED 11/10/21 20:44 Nasal Enterovir/Rhinovir PCR NOT DETECTED 11/10/21 20:44 Nasal Influenza B PCR NOT DETECTED 11/10/21 20:44 Nasal Influenza A PCR NOT DETECTED 11/10/21 20:44 Nasal Parainfluen 1 PCR NOT DETECTED 11/10/21 20:44 Nasal Parainfluen 2 PCR NOT DETECTED 11/10/21 20:44 Nasal Parainfluen 3 PCR NOT DETECTED 11/10/21 20:44 Nasal Parainfluen 4 PCR NOT DETECTED 11/10/21 20:44 Nasal RSV (PCR) NOT DETECTED 11/10/21 20:44 Nasal B.pertussis DNA PCR NOT DETECTED 11/10/21 20:44 Nasal C.pneumoniae (PCR) NOT DETECTED 11/10/21 20:44 Misael Human Metapneumo PCR NOT DETECTED 11/10/21 20:44 Nasal M.pneumoniae (PCR) NOT DETECTED 11/10/21 20:44 Nasal SARS-CoV-2 (PCR) NOT DETECTED 11/10/21 20:44 Urine Opiates Screen NEGATIVE (NEGATIVE) 11/10/21 20:20 Ur Oxycodone Screen NEGATIVE (NEGATIVE) 11/10/21 20:20 Urine Methadone Screen NEGATIVE (NEGATIVE) 11/10/21 20:20 Ur Propoxyphene Screen NEGATIVE (NEGATIVE) 11/10/21 20:20 Ur Barbiturates Screen NEGATIVE (NEGATIVE) 11/10/21 20:20 Ur Tricyclics Screen NEGATIVE (NEGATIVE) 11/10/21 20:20 Ur Phencyclidine Scrn NEGATIVE (NEGATIVE) 11/10/21 20:20 Ur Amphetamine Screen NEGATIVE (NEGATIVE) 11/10/21 20:20 U Methamphetamines Scrn NEGATIVE (NEGATIVE) 11/10/21 20:20 U Benzodiazepines Scrn NEGATIVE (NEGATIVE) 11/10/21 20:20 Urine Cocaine Screen NEGATIVE (NEGATIVE) 11/10/21 20:20 U Cannabinoids Screen NEGATIVE (NEGATIVE) 11/10/21 20:20 Ethyl Alcohol < 5.0 mg/dL 11/10/21 19:21 - Procedures Procedures: Procedures COLONOSCOPY (01/09/13) DRAINAGE OF BLADDER WITH DRAINAGE DEVICE, VIA OPENING (11/25/19)
[2021-11-12] MEDS: CALCIUM CARBONATE CHEW 500 MG TABLET PO PRN ×2 (20:13→21:22)
[2021-11-12] MEDS: carvediloL 12.5 MG TABLET PO SCH (22:12)
[2021-11-13] MEDS: ACETAMINOPHEN 325 MG TABLET PO PRN ×4 (01:13→16:28)
[2021-11-13] MEDS: hydrALAZINE INJ 20 MG/ML VIAL IVP PRN ×3 (01:15→11:59)
[2021-11-13] MEDS ORDERED: METOPROLOL 5 MG/5 ML VIAL IVP ONE (02:25)
[2021-11-13] MEDS ORDERED: hydrALAZINE INJ 20 MG/ML VIAL IVP ONE (02:49)
[2021-11-13 05:22] LABS: BASOPHILS % (AUTO) 0.4 %; EOSINOPHILS # (AUTO) 0.2 10^3/uL (0.0-0.7); EOSINOPHILS % (AUTO) 2.3 %; HCT - HEMATOCRIT 32.6 % (37.0-47.0); HGB - HEMOGLOBIN 10.4 g/dL (12.0-16.0); LYMPHOCYTES # (AUTO) 1.2 10^3/uL (1.5-3.5); LYMPHOCYTES % (AUTO) 15.9 %; MEAN CORPUSCULAR HEMOGLOBIN 29.1 pg (27.0-31.0); MEAN CORPUSCULAR HGB CONC 31.9 g/dL (32.0-36.0); MEAN CORPUSCULAR VOLUME 91.1 fL (81.0-99.0); MEAN PLATELET VOLUME 10.3 fL (7.9-10.8); MONOCYTES # (AUTO) 0.7 10^3/uL (0.0-1.0); MONOCYTES % (AUTO) 8.4 %; NEUTROPHILS # (AUTO) 5.7 10^3/uL (1.5-6.6); NEUTROPHILS % (AUTO) 72.7 %; PLT - PLATELET COUNT 293 10^3/uL (130-450); RED BLOOD COUNT 3.58 10^6/uL (4.20-5.40); RED CELL DISTRIBUTION WIDTH 15.8 % (12.0-15.0); WHITE BLOOD COUNT 7.8 x10^3/uL (4.8-10.8)
[2021-11-13 05:32] LABS: CALCIUM 9.9 mg/dL (8.5-10.3); CREATININE 1.4 mg/dL (0.4-1.0); POTASSIUM 4.3 mmol/L (3.5-5.0)
[2021-11-13] MEDS: polyethylene glycoL 3350 17 GM PACKET PO SCH (07:55)
[2021-11-13] MEDS: carvediloL 12.5 MG TABLET PO SCH (07:56)
[2021-11-13] MEDS ORDERED: DOCUSATE SODIUM 250 MG CAPSULE PO SCH ×2 (09:00→17:00)
[2021-11-13] MEDS ORDERED: SENNA 8.6 MG TABLET PO SCH ×2 (09:00→12:00)
[2021-11-13] MEDS: SODIUM CHLORIDE FLUSH 0.9% 10 ML SYRINGE IVP SCH (09:29)
[2021-11-13] MEDS ORDERED: BACLOFEN 10 MG TABLET PO PRN (09:32)
[2021-11-13] MEDS ORDERED: BUPRENORPHINE NALOX SL PRN (09:52)
[2021-11-13] MEDS: CALCIUM CARBONATE CHEW 500 MG TABLET PO PRN (12:03)
--- NOTE | 2021-11-13 12:22 | Discharge Plan ---
Discharge Plan Problem Reviewed?: Yes Disposition: Home Health Service Condition: Fair Prescriptions: hydrALAZINE [Apresoline] 10 mg PO BID #60 tablet Diet: Regular Activity Restrictions: Activity as Tolerated Shower Restrictions: No Driving Restrictions: Yes (Too weak to drive) Assistance Devices: Walker Weight Bearing: Full Weight Health Concerns: Patient was admitted for about the 10th time with the same presentation: She refuses to get out of bed, gets sleepy then confused at home and is brought in by ambulance dehydrated and obtunded or comatose. We have narrowed down the cause of this problem to be that she is probably taking her sedative medications at will, which are kept at her bedside. After each admission, she gets IV hydration, then goes through a day of confusion with screaming and repetitive word speak, and then is back to baseline by day 3. She is being discharged to home under the care of her , who has agreed to be in complete control of how all of her medications are administered, and none will be left at bedside, going forward. We have ordered resumption of [facility] to provide Physical therapy and Occupational Therapy in the home. Also [facility] will provide a Rn Invasive and Skilled RN to check that the above medications are being administered correctly. If the plan above is not followed by the patient, or if she fires the Home Health service, then she will need to be permanently placed in a Skilled Nursing for auto inspector management, since she can no longer be responsible for taking sedatives and narcotics independently (as there have been multiple Adult Protective Service reports, and the situation at home would be deemed unsafe for a future discharge plan). Plan of Treatment: As above. Care Goals: Improvement in symptoms and stabilization are the goals. Assessment: The patient and understand and are agreeable with the plan. Additional Instructions or Follow Up instructions: There is a new Primary Care Provider: Dr Connor. An appointment to that provider should be scheduled for the next 1-2 weeks for a hospital follow-up visit. No Smoking: If you smoke, Please STOP! Call for help. Follow-up with: Kassi Connor MD [Provider Admit Priv/Credential] -
--- NOTE | 2021-11-13 13:16 | DISCHARGE SUMMARY ---
Discharge Summary Admit Date: 11/10/21 Discharge Date: 11/13/21 Discharging Provider: Dr Diaz Primary Care Provider: Dr Connor Condition at Discharge: Fair Discharge Disposition: 06 Home Health Service - HPI History of Present Illness: From the admission H&P of Dr Krissy Brewster: "This 71 y/o WF is brought in by ambulance from home. Patient reportedly fell and when EMS arrived her chief complaint was left foot pain. Initially her GCS was 14 but was yelling out and crying. En route to ED patient's mental status rapidly deteriorated and she arrives to ED only following one or two simple commands (such as "open your eyes", or "open your mouth", but with little effort), she is nonverbal except for moaning when IV is placed. Also of note is patient was normotensive on EMS arrival but blood pressures have been going down and most recent reading was 60s SBP. Patient cannot contribute to HPI/ROS due to AMS" The HPI above was obtained from the ED provider's H&P because the patient is currently somnolent and unable to provide a reliable history. She can answer questions that require yes or no or simple 1-2 word responses. At bedside she appears asleep but readily opens her eyes to verbal stimuli. She reports feeling groggy. She denies chest pain, dyspnea, abdominal pain, nausea, vomiting, fever or chills. This is similar to prior presentations for her. - HOSPITAL COURSE Hospital Course: (1) Altered mental status Likely multifactorial: secondary to medication and possibly dehydration. CT head showed no evidence of acute intracranial process. This is the same presentation that she has had about 10 times over the past year: She comes home from hospital or rehab, does not get out of bed, and then becomes lethargic, does not eat, calls an ambulance and she presents with dehydration and severely altered mental status. When she was in SNF for several weeks or when she lived at long-term care for one month, she was safe and had no presentations to the ED in this condition, because her medications were being administered to her. I called her at home and questioned how she gets her meds and he emailed me a spread sheet that he uses to fill her med tray. He says he brings the tray to her room, but does not monitor how she administers her meds to herself. She also never leaves her bed, whenever she comes back home, despite promising that she will continue doing exercises and walking with a walker. The describes that he brings her all her meals in her bed. On his spreadsheet, there were 3 medications that are listed as being "at bedside" all the time, and not counted out in the med tray and not monitored by him, because she wanted them at bedside. These 3 meds were: Suboxone, Baclofen muscle relaxant, and Ativan. He therefore has no idea how she takes those 3 meds, which are the most sedating of all her medications. I advised him that she could return home if he takes full responsibility for administering all of her meds to her and to leave none at bedside and not even leave the filled med tray in her room. She also needs to be told to get up OOB at least for meals 3 times a day. He said he would "implement that because she spills everything in her bed". I then presented the idea to the patient who sais she would agree to that plan and it was written out and also verbally reviewed in person with her son, who picked her up. [facility] was ordered to resume with home PT and OT. Also [facility] will provide a Supervisor [employer] and Skilled RN to check that the above medications are being administered correctly. If the plan above is not followed by the patient/caregiver , or if she fires the Home Health service, then she would need to be permanently placed in a Care Home for snf management if she presents obtunded from excessive meds, since then she would fail the new plan and the situation at home would be deemed unsafe for a future discharge plan. (2) Echolalia After presenting overly sedated, her usual mental status on day 2 is yelling out with kalpana, which she did this time as well. This has been a repeat occurrence for her during her admissions (there are approximately 10 over the last year). Because the echolalia suggests side effect of her sedatives or psychotropic medications, it suggested that she has intentionally or unintentionally taken in excess amount of something. By day 3, she (repeatedly) returns to being awake and alert. (3) Acute kidney injury superimposed on CKD Creatinine was elevated from poor po intake due to somnolence and due to being on Lasix and usually improves after several days of iv hydration, which was done again. (4) Anemia This may be anemia of chronic disease given the CKD but most likely from recurrent hospitalizations requiring rehydration and all the blood draws. (5) Diabetes mellitus type 2, diet-controlled She is not on any diabetic medications. A low sweets diet was ordered. (6) Bipolar disorder We resumed her usual anti-psychotic meds when she was awake and able to swallow (Day 3 of each hospitalization usually). (7) Chronic pain syndrome She was on Suboxone and it was resumed when she is awake (8) HTN (hypertension) Patient was hypotensive in the emergency room. After receiving IV hydration with normal saline for several days, she became very hypertensive, reaching 200 systolic. This is from being off BP meds for several days. We resumed all her BP meds then and she needed several doses of iv Hydralazine. At the time of discharge, med changes were made: Her Lasix was stopped in order to prevent f uture episodes of dehydration since she has no edema, Coreg was increased to maximum of 25 twice daily from 12.5 twice daily and Metoprolol once daily was stopped. (9) Hypothyroidism We continued her Synthroid 50 mcg p.o. daily AC, when she could swallow. (10) GERD (gastroesophageal reflux disease) Her Protonix 40 mg p.o. daily was resumed when she could swallow. (11) Peripheral neuropathy Her meds were resumed when she could swallow. (12) Hyperlipidemia Gemfibrozil was resumed when she could swallow. - ALLERGIES Allergies/Adverse Reactions: Allergies Allergy/AdvReac Type Severity Reaction Status Date / Time NSAIDS (Non-Steroidal Allergy Mild Hives Verified 11/10/21 19:12 Anti-Inflamma green pepper Allergy Unknown Verified 11/10/21 19:12 lisinopril Allergy Unknown Verified 11/10/21 19:12 pepper (genus Capsicum) Allergy Unknown Verified 11/10/21 19:12 Sulfa (Sulfonamide AdvReac Mild Rash Verified 11/10/21 19:12 Antibiotics) ondansetron [From Zofran] AdvReac Dizziness Verified 11/10/21 19:12 - MEDICATIONS Home Medications: Ambulatory Orders Medication Instructions Recorded Confirmed Levothyroxine Sodium 50 mcg PO QDAC #30 07/17/19 11/11/21 gemfibroziL [Gemfibrozil] 600 mg PO BID #60 07/17/19 11/11/21 Cholecalciferol [Vitamin D3] 25 mcg PO DAILY 08/15/20 11/11/21 Gabapentin [Neurontin] 100 mg PO TID 08/15/20 11/11/21 Tizanidine HCl 2 mg PO TID 07/06/21 11/11/21 risperiDONE [RisperDAL] 1 mg PO BID tablet 07/23/21 11/11/21 LORazepam [Ativan] 0.5 mg PO BID PRN #10 tablet 09/24/21 11/11/21 Baclofen [Lioresal] 10 mg PO BID PRN 11/11/21 11/11/21 Buprenorphine HCl/Naloxone HCl 1 each SL TID PRN 11/11/21 11/11/21 [Buprenorphine-Nalox 8-2Mg Film] Venlafaxine HCl 75 mg PO BID 11/11/21 11/11/21 Carvedilol [Coreg] 25 mg PO BID #60 tablet 11/13/21 hydrALAZINE [Apresoline] 10 mg PO BID #60 tablet 11/13/21 - PHYSICAL EXAM AT DISCHARGE General Appearance: positive: No acute distress, Alert, Other (Flat affect) Eyes Bilateral: positive: Other (Poor eye contact, and unequal gaze) ENT: positive: ENT inspection nml, No signs of dehydration Neck: positive: Nml inspection, No JVD Respiratory: positive: No respiratory distress, Breath sounds nml Cardiovascular: positive: Regular rate & rhythm, No murmur Abdomen: positive: Non-tender, No distention, Other (Obese) Skin: positive: Warm, Dry Extremities: positive: Non-tender, No pedal edema Neurologic/Psychiatric: positive: Oriented x3, Other (Flat affect, poor eye contact, speech sounds forced.) - LABS Result Diagrams: 11/13/21 05:02 11/13/21 05:02 - DIAGNOSTIC IMAGING Diagnostic Imaging Results: Final report reviewed - FOLLOW UP Follow Up: See PCP in 1-2 weeks. - TIME SPENT Time Spent in Discharge (Minutes): 55
[2021-11-13] MEDS ORDERED: GABAPENTIN 100 MG CAPSULE PO SCH (14:00)
[2021-11-13] MEDS ORDERED: carvediloL 12.5 MG TABLET PO ONE (14:25)
[2021-11-13 16:19] VITALS: BP 154/74
[2021-11-13] MEDS ORDERED: VENLAFAXINE 37.5 MG TABLET PO SCH (21:00)
[2021-11-14] MEDS ORDERED: LEVOTHYROXINE 25 MCG TABLET PO SCH (07:00)
== END 2021-11-13 16:40 | disposition home health service (06) | DRG 92 ==
LOC: EDUNIT# → ED 19:06 → MS2 22:22
PROVIDERS: ADMIT Internal Medicine; ATTEND Internal Medicine
DX: N30.00 Acute cystitis without hematuria (principal); R40.1 Stupor; I95.9 Hypotension, unspecified; G92.8 Other toxic encephalopathy; E11.9 Type 2 diabetes mellitus without complications; N17.9 Acute kidney failure, unspecified; F41.9 Anxiety disorder, unspecified; F17.200 Nicotine dependence, unspecified, uncomplicated; Z20.822 Contact with and (suspected) exposure to COVID-19; R00.1 Bradycardia, unspecified; R41.82 Altered mental status, unspecified; T50.995A Adverse effect of other drugs, medicaments and biological substances, initial encounter; Y92.003 Bedroom of unspecified non-institutional (private) residence as the place of occurrence of the external cause; R48.8 Other symbolic dysfunctions; E11.22 Type 2 diabetes mellitus with diabetic chronic kidney disease; I12.9 Hypertensive chronic kidney disease with stage 1 through stage 4 chronic kidney disease, or unspecified chronic kidney disease; N18.9 Chronic kidney disease, unspecified; K21.9 Gastro-esophageal reflux disease without esophagitis; E78.5 Hyperlipidemia, unspecified; E03.9 Hypothyroidism, unspecified; D64.9 Anemia, unspecified; F31.9 Bipolar disorder, unspecified; G89.4 Chronic pain syndrome; E11.42 Type 2 diabetes mellitus with diabetic polyneuropathy; E86.0 Dehydration; J44.9 Chronic obstructive pulmonary disease, unspecified; F17.210 Nicotine dependence, cigarettes, uncomplicated
CPT/HCPCS: 36415; 70450; 71045; 80048; 80053; 80306; 81001; 83605; 83690; 83880; 84443; 85025; 87040; 87077; 87086; 87181; 87633; 93005; 96361; 96365; 97161; 99281; 99285; A9270; G0480; 80320; 81003

== ENCOUNTER 2021-11-21 08:00 | Outpatient (CLI) | payer MEDICARE, MEDICAID ==
[2021-11-21 15:14] LABS: BILIRUBIN,URINE NEGATIVE (NEGATIVE); GLUCOSE, URINE (UA) NEGATIVE (NEGATIVE); KETONES,URINE (UA) NEGATIVE (NEGATIVE); LEUKOCYTE ESTERASE, URINE LARGE (NEGATIVE); NITRITE,URINE NEGATIVE (NEGATIVE); OCCULT BLOOD,URINE SMALL (NEGATIVE); PROTEIN,URINE 30 mg/dL (NEGATIVE); UROBILINOGEN,URINE 0.2 (NORMAL) E.U./dL (NORMAL)
[2021-11-21 15:19] LABS: CLARITY,URINE CLOUDY (CLEAR)
[2021-11-21 15:33] LABS: BACTERIA,URINE Many /HPF (None Seen); RBC,URINE 0-5 /HPF (0-5); SQUAMOUS EPITHELIAL CELL,UR RARE Squamous (<= Few); WBC,URINE >25 /HPF (0-5)
== END 2021-11-21 23:59 | disposition home or self-care (01) ==
LOC: LAB.S 08:00
PROVIDERS: ATTEND Internal Medicine
DX: R39.9 Unspecified symptoms and signs involving the genitourinary system (principal)
CPT/HCPCS: 81001; 87077; 87086; 87181